=== PATIENT | male | born 1975 | race Caucasian/White ===

== ENCOUNTER 2022-07-17 09:00 | Emergency (ER) | payer MEDICAID, SELFPAY ==
[2022-07-17 09:13] VITALS: BP 141/100; PULSE 111; RESP 16; TEMP 36.7; O2SAT 98; BMI 28.4
--- NOTE | 2022-07-17 09:20 | ED.GENADULT ---
HPI - General Adult General Chief complaint: Extremity Pain/Injury, Lower Stated complaint: Pain in RT leg Time Seen by Provider: 07/17/22 09:02 History of Present Illness HPI narrative: This 46-year-old male comes in reporting pain radiating down the posterior aspect of his whole right leg. He fell about 4 - 5 weeks ago and is in a back brace. He has also a cast on his right forearm. He has been taking pain medications but states that this does not help him much. 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 He does not report any new injury since the fall that occurred more than a month ago. He has been to his primary physicians regarding these complaints and they state that it is a nerve pain. He does not report any swelling in his right leg. He does not have any chest pain or shortness of breath. Related Data Home Medications Medication Instructions Recorded Confirmed acetaminophen 325 mg capsule 325 mg PO Q6H PRN 07/17/22 07/17/22 cyclobenzaprine 5 mg tablet 5 mg PO Q8H 07/17/22 07/17/22 gabapentin 400 mg capsule 400 mg PO TID 07/17/22 07/17/22 hydroxyzine HCl 25 mg tablet 25 mg PO Q4H 07/17/22 07/17/22 melatonin 3 mg tablet 3 mg PO DAILY 07/17/22 07/17/22 oxycodone 5 mg capsule 5 mg PO Q8H 07/17/22 07/17/22 rivaroxaban 15 mg tablet (Xarelto) 15 mg PO BID 07/17/22 07/17/22 sennosides 8.6 mg capsule (senna) 8.6 mg PO DAILY 07/17/22 07/17/22 tamsulosin 0.4 mg capsule 0.4 mg PO DAILY 07/17/22 07/17/22 tramadol 50 mg tablet 50 mg PO QHS 07/17/22 07/17/22 Previous Rx's Medication Instructions Recorded hydrocodone 5 mg-acetaminophen 325 1 tab PO Q4-6H PRN pain #20 tabs 07/17/22 mg tablet Allergies Allergy/AdvReac Type Severity Reaction Status Date / Time No Known Drug Allergies Allergy Verified 07/17/22 09:23 Review of Systems Status of ROS: Reports: 10 or more systems reviewed and unremarkable except as noted in History and below Narrative: Constitutional: No fevers, no weight gain or loss. Eyes: No discharge. No vision changes. HENT: No congestion, no sore throat, no ear pain. Cardiovascular: No chest pain, no palpitations. Respiratory: No shortness of breath, no wheezes, no cough. Gastrointestinal: No abdominal pain, no vomiting, no diarrhea. Genitourinary: No dysuria, no hematuria. Musculoskeletal: Low back pain due to an injury from a fall and pain radiating down the right leg. Skin: No rashes, no pruritis. Neurological: No dizziness, weakness, sensory change, speech change. Endo/Heme/Allergies: No bruising or bleeding. No polydipsia. Pysch: no suicidality, no anxiety, no insomnia. All other systems reviewed and are negative. [facility] Social History Smoking Status: Never smoker Do you use any of these nicotine containing products: None Second hand tobacco smoke exposure: No How often do you have a drink containing alcohol: never How often do you have six or more drinks on one occasion: Never AUDIT-C Alcohol total score: 0 Non-prescribed substance use: denies use Exam Narrative: Exam Narrative: Constitutional: Well-developed, well-nourished, no acute distress. HEENT: Normocephalic, atraumatic. Neck: Normal range of motion. Nontender. Supple. Heart: Regular. No murmurs. Normal rate. Intact distal pulses. Lungs: Clear to auscultation. No chest discomfort. No wheezes, rhonchi, or rales. Abdomen: Normal bowel sounds. Nontender. No rebound tenderness. Genitalia: Deferred. Back: He is wearing a back brace. Extremities: He has a cast on his right forearm. Range of motion of his lower extremities is normal. Skin: Intact. No rash. Warm. No erythema or pallor. Neurologic: No altered sensation. No weakness. Alert and oriented. Psychiatric: No suicidality. No anxiety or depression. No insomnia. Nursing notes and vitals signs are reviewed. Const: Vital Signs, click to edit/add: Vital Signs - 24 hr 07/17/22 09:13 Temperature 98.1 F Pulse Rate [Left P ulse Oximeter] 111 H Respiratory Rate 16 Blood Pressure [Le ft Upper Arm] 141/100 H Pulse Oximetry 98 Oxygen Delivery Me thod Room Air Course Vital Signs Vital signs: Initial Vital Signs Temperature 98.1 F 07/17/22 09:13 Temperature Source Temporal Artery Scan 07/17/22 09:13 Pulse Rate 111 H 07/17/22 09:13 Pulse Rhythm 07/17/22 09:13 Pulse Strength 3+ Normal 07/17/22 09:13 Respiratory Rate 16 07/17/22 09:13 Blood Pressure 141/100 H 07/17/22 09:13 Blood Pressure Mean 113 07/17/22 09:13 Blood Pressure Position Sitting 07/17/22 09:13 Pulse Oximetry 98 07/17/22 09:13 Oxygen Delivery Method 07/17/22 09:13 Vital Signs Temperature 98.1 F 07/17/22 09:13 Pulse Rate 111 H 07/17/22 09:13 Respiratory Rate 16 07/17/22 09:13 Blood Pressure 141/100 H 07/17/22 09:13 Pulse Oximetry 98 07/17/22 09:13 Oxygen Delivery Method 07/17/22 09:13 Temperature 98.1 F 07/17/22 09:13 Pulse Rate 111 H 07/17/22 09:13 Respiratory Rate 16 07/17/22 09:13 Blood Pressure 141/100 H 07/17/22 09:13 Pulse Oximetry 98 07/17/22 09:13 Oxygen Delivery Method 07/17/22 09:13 Medical Decision Making MDM Narrative Medical decision making narrative: This patient comes in with ongoing symptoms from an injury that occurred from a fall which happened about 4 5 weeks ago. He has pain radiating down his right leg. He is not showing suspicious signs for a deep venous thrombus. Patient is interested however and having this ruled out. He does have a filter in his right inguinal region and is currently taking Xarelto. Ultrasound of the right lower extremity does show a nonocclusive clot in the upper calf. The PERC rule does apply here and rules him out for pulmonary embolism. There is no need to do imaging of his lungs in this regard. It seems that this patient's pain is yet nerve mediated as it does radiate down his whole leg. He did have hip fractures with surgery and has some issues with his lower spine. He does have a follow-up appointment with his primary physician in a few days. He is taking Flexeril and gabapentin. He states that this is not helping him sufficiently for pain. He also was prescribed 8 tablets of oxycodone and has just 1 left. I stated that his primary physician will need to manage ongoing pain medicines. The patient states that he does not want to become dependent on any kind of pain medicine. I did agree to prescribe some tablets of [place]. Discharge Plan Discharge Clinical Impression: Acute lumbar radiculopathy, Fracture of hip, Venous embolism and thrombosis of deep vessels of distal lower extremity Condition: Stable Additional Instructions: Take medication as needed and indicated. Follow up with MD as scheduled or return if worsening. Prescriptions: New hydrocodone-acetaminophen 5-325 mg tablet 1 tab PO Q4-6H PRN (Reason: pain) Qty: 20 0RF No Action Xarelto 15 mg tablet 15 mg PO BID Rx Instructions: must administer with a meal/food senna 8.6 mg capsule 8.6 mg PO DAILY tramadol 50 mg tablet 50 mg PO QHS oxycodone 5 mg capsule 5 mg PO Q8H gabapentin 400 mg capsule 400 mg PO TID melatonin 3 mg tablet 3 mg PO DAILY acetaminophen 325 mg capsule 325 mg PO Q6H PRN cyclobenzaprine 5 mg tablet 5 mg PO Q8H hydroxyzine HCl 25 mg tablet 25 mg PO Q4H tamsulosin 0.4 mg capsule 0.4 mg PO DAILY Follow Up/Referrals: Gideon Alston MD [Primary Care Provider] - Stand Alone Forms: [employer] Info Instructions
--- NOTE | 2022-07-17 09:31 | CRLHL7_ITS ---
For Patients: As a result of the Century Cures Act, medical imaging exams and procedure reports are released immediately into your electronic medical record. You may view this report before your referring provider. If you have questions, please contact your health care provider. INDICATION: Pain COMPARISON: None. TECHNIQUE: A compression venous ultrasound exam was performed of the right lower extremity using salazar-scale imaging, color Doppler and spectral Doppler analysis. FINDINGS: Sonographic imaging of the right lower extremity demonstrates normal compressibility and color Doppler venous blood flow within the common femoral vein and deep femoral vein, and the proximal greater saphenous vein. Within the thigh, the femoral vein is patent and compressible. At a lower level, the popliteal and posterior tibial veins also show normal compressibility and color Doppler venous blood flow. Nonocclusive partially compressible clot within the right gastrocnemius vein. Limited imaging of the contralateral groin demonstrates a normal spectral waveform and color Doppler venous blood flow within the left common femoral vein. IMPRESSION: Isolated muscular calf vein DVT, nonocclusive, involving the gastrocnemius vein. Remainder normal. If anticoagulation is not initiated, short term sonographic follow-up is suggested to exclude progression of DVT. Called to Dr. Barger 1021 07.17.22. Dictated by Roosevelt Cotton MD @ 07/17/2022 10:21:42 AM (Electronically Signed)
--- OUTSIDE RECORDS SUMMARY | 2022-07-17 10:11 | XMS_ITS | Clinical Summary ---
:1975 Author Organization [facility] Address [address] [place] [address] Phone Care Team Providers Name Role Phone Lore Au PT Unavailable Source Comments [employer] is fully rolled out on [employer]. Last update 03/09/09.[facility] [facility] Allergies No known active allergies Medications Be aware that medications may not be up to date as of this document. Always verify current medications with patient. Medication Sig Dispensed Refills Start End Status Date Date metFORMIN Take 1 tablet 0 Active (GLUCOPHAGE) 1000 (1,000 mg) by mg oral mouth twice daily tabletIndications: with meals. Type 2 Diabetes Indications: Type Mellitus 2 Diabetes glipiZIDE XL Take 1 tablet (10 0 Active (GLUCOTROL XL) 10 mg) by mouth mg oral extended daily. release Indications: Type tabletIndications: 2 Diabetes Type 2 Diabetes Mellitus acetaminophen 325 Take 3 tablets 120 tablet 0 06/26/20 Active mg oral tablet (975 mg) by mouth 22 3 times daily. hydrOXYzine Take 1-2 capsules 120 capsule 0 06/26/20 Active pamoate (VISTARIL) (25-50 mg) by 22 25 mg oral capsule mouth every 4 hours as needed (pain adjunct (give with opioid)).[place] 1-2 c??psulas (25-50 mg) por v??a oral cada 4 horas seg??n sea necesario (complemento para el dolor (administrar con opioide)). bisacodyl Unwrap and insert 5 suppository 0 06/26/20 Active (DULCOLAX) 10 mg 1 suppository (10 rectal suppository mg) by Rectal route daily as needed for Constipation.De senvuelva e inserte 1 supositorio (10 mg) por v??a rectal diariamente seg??n sea necesario para el estre??imiento. cyclobenzaprine Take 1 tablet (5 90 tablet 0 06/26/20 Active (FLEXERIL) 5 mg mg) by mouth 3 22 oral TABS times daily. [place] 1 tableta (5 mg) por la boca 3 veces al porsche. polyethylene Take 17 g by 510 g 0 06/26/20 Acti ve glycol 3350 mouth twice 22 (MIRALAX/GLUCOLAX) daily.Take 1 17 gm/scoop oral capful to 17 gm powder cuate mixed with full glass of water twice every day as directed.[place] 17 g por v??a oral dos veces al d??a. [place] 1 tap??n hasta la minerva de 17 g mezclado con un vaso lleno de agua dos veces al d??a seg??n las indicaciones. sennosides-docusat Take 1 tablet by 40 each 0 06/26/20 Active e sodium (STOOL mouth twice 22 SOFTENER/LAXATIVE) daily. [place] 1 8.6-50 mg oral tableta por la tablet boca 2 veces al porsche. GABApentin Take 1 capsule 120 capsule 0 06/26/20 Ac tive (NEURONTIN) 400 mg (400 mg) by mouth 22 oral capsule 3 times daily. [place] 1 capsula (400 mg) por la boca 3 veces al porsche. tamsulosin Take 1 capsule 10 capsule 0 06/27/20 Act raymond (FLOMAX) 0.4 mg (0.4 mg) by mouth 22 oral capsule daily after meal.Take 30 minutes after same meal each day. Do NOT crush or chew.[place] 1 c??psula (0,4 mg) por v??a oral todos los d??as despu??s de ethan comida. [place] 30 minutos despu??s de la misma comida todos los d??as. No triture ni mastique. melatonin 3 mg Take 1 tablet (3 20 tablet 0 06/26/20 Active oral tablet mg) by mouth at 22 bedtime as needed for Sleep. [place] 1 tableta (3 mg) por la boca a la hora de acostrase. sodium chloride 1 Take 2 tablets (2 60 tablet 0 06/26/20 Active gm oral TABS g) by mouth 4 22 times daily. TOME DOS TABLETAS ORALMENTE 4 VECES AL PORSCHE rivaroxaban Take 1 tablet (20 69 tablet 0 07/20/20 Active (XARELTO) 20 mg mg) by mouth 22 oral daily with tabletIndications: evening meal. 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 rivaroxaban Take 1 tablet (15 42 tablet 0 06/29/2007/20/ Active (XARELTO) 15 mg mg) by mouth 2021 oral twice daily with tabletIndications: meals for 21 Deep Vein days. Thrombosis Indications: Blood Clot in a Deep Vein. [place] 1 tableta (15 mg) por v??a oral dos veces al d??a con las comidas jennifer 21 d??as. 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 lidocaine 5 % Apply to affected 30 g 0 07/13/20 Active externally areas up to 3 22 ointment times daily. Aplicar en las ??reas afectadas hasta 3 veces al d??a. oxyCODONE Take 1 tablet (5 10 tablet 0 07/15/2007/20/ Act raymond (ROXICODONE) 5 mg mg) by mouth 2021 oral tablet every 8 hours as needed for breakthrough pain. TOME ETHAN TABLETA CADA 8 HORAS CLEMENTE SEA NECESARIO PARA EL DOLOR INTENSIVO oxyCODONE Take 1-2 tablets 50 tablet 0 06/26/06/27/ Dis continued (ROXICODONE) 5 mg (5-10 mg) by 2021 (Reorder) oral tablet mouth every 4 hours as needed for Pain. enoxaparin Inject 0.4 mL (40 4 each 0 06/26/2006/27/ D iscontinued (LOVENOX) 40 mg) 2021 (Reorde r) mg/0.4 mL subcutaneously Injection SOSY every 12 hours for 4 doses. Inyecte 0,4 ml (40 mg) por v??a subcut??binu cada 12 horas en 4 dosis. rivaroxaban Take 0.75 tablets 42 tablet 0 06/29/20 Discontinued (XARELTO) 20 mg (15 mg) by mouth 2021 (Reorder) oral twice daily with tabletIndications: meals. Deep Vein Indications: Thrombosis Blood Clot in a Deep Vein enoxaparin Inject 0.4 mL (40 3 each 0 06/27/2006/29/ E xpired (LOVENOX) 40 mg) 2021 mg/0.4 mL subcutaneously Injection SOSY every 12 hours for 3 doses, starting 06/27 at 8:00 PM. Inyecte 0,4 ml (40 mg) por v??a subcut??binu cada 12 horas en 4 dosis, a partir del 27/06 a las 20:00. oxyCODONE Take 1 tablet (5 30 tablet 0 06/27/20 Exp ired (ROXICODONE) 5 mg mg) by mouth 2021 oral tablet every 4 hours as needed for Pain. traMADol (ULTRAM) Take 1 tablet (50 7 tablet 0 07/08/2007/05 50 mg oral TABS mg) by mouth at 2021 bedtime as needed for Pain. * TOME ETHAN TABLETA ORALMENTE ANTES DE ACOSTARSE CLEMENTE SEA NECESARIO PARA EL DOLOR lidocaine 5 % Apply to skin 5 % 30 g 0 07/13/20 externally twice daily. 2021 (Reord er) ointment Active Problems Problem Noted Date Pelvic ring fracture, closed, initial encounter 2021 Fall, initial encounter 06/16/2022 Open wound of arm without complication 05/10/2007 Open wound of arm 04/13/2007 Resolved Problems Problem Noted Date Resolved Date Abrasion or friction burn of shoulder and upper arm without 04/13/2007 04/16/2007 infection Laceration, shoulder 04/13/2007 05/10/2007 Abrasion or friction burn of forearm without infection 04/0804/13/2007 Encounters Date Type Specialty Care Team Description 07/15/2022 Telephone ORTHOPEDICS Gorge Dimas, ER F/U (Orth o Dr RASHEL Brown) 07/14/2022 - Emergency EMERGENCY MEDICINE Danny Rios Post-o perative pain 07/15/2022 FMD Darius Johanna C, MD 07/14/2022 Travel 07/13/2022 Emergency EMERGENCY MEDICINE Mariano Taylor, Radicu lar pain of MD right lower extremity 07/13/2022 Travel 07/08/2022 Hospital Encounter RADIOLOGY Miri Matthew MD 1, [facility] 07/08/2022 Office Visit ORTHOPEDICS Roosevelt Brown Pelvic ring fracture, closed, subsequent encounter () (Primary Dx); MD Trav Fracture of right wrist 1, [facility] 07/08/2022 Hospital Encounter RADIOLOGY Patrice Hollins MD 1, [facility] 07/08/2022 Hospital Encounter RADIOLOGY Roosevelt Brown MD 1, [facility] 07/08/2022 Travel 07/07/2022 Telemedicine MEDICINE Martin Boyle, DVT (deep veno us thrombosis) () (Primary Dx); PharmD Pelvic ring fracture, closed, initial en counter () 1, [facility] 07/07/2022 Orders Only ORTHOPEDICS Nidhi Ochoa M, Pelvic ring RN fracture, close d, subsequent encounter () (Primary Dx) 06/29/2022 - Emergency EMERGENCY MEDICINE Sascha Mendez Pain 06/30/2022 S, DO 06/29/2022 Travel 06/24/2022 Anesthesia Event SURGERY Vish Aguirre MD Armstrong, Zoey, SOLOMON 06/24/2022 Surgery SURGERY Roosevelt Brown OPEN REDUCT DEANNA Ravi MD INTERNAL FIXATI ON RIGHT SI JOINT 06/24/2022 Documentation Only 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 Pest Control Service, Services 06/20/2022 Orders Only Unknown, Provider 06/20/2022 Orders Only Unknown, Provider 06/19/2022 Orders Only Unknown, Provider 06/19/2022 Orders Only Unknown, Provider 06/19/2022 Orders Only Unknown, Provider 06/18/2022 Anesthesia Event SURGERY Alex Leos MD Jensen, Kristan Sanchez MD 06/18/2022 Surgery SURGERY Roosevelt Brown PELVI S C, MD 06/18/2022 Orders Only Unknown, Provider 06/15/2022 - Hospital Encounter SURGERY Kingston Castañeda, Raymond, initial 06/27/2022 MD encounter Patrice Hollins MD 06/15/2022 Travel from Last 3 Months Social History Tobacco Use Types Packs/Day Years Used Date Smoking Tobacco: Never Smokeless Tobacco: Never Alcohol Use Standard Drinks/Week Comments Not Asked 0 (1 standard drink = 0.6 oz pure alcoho l) Sex Assigned at Date Recorded Not on file COVID-19 Exposure Response Date Recorded In the last 10 days, have you been in contact with No / Unsu re 07/14/2022 6:38 PM CDT someone who was confirmed or suspected to have Coronavirus/COVID-19? Last Filed Vital Signs Vital Sign Reading Time Taken Comments Blood Pressure 126/86 07/15/2022 5:04 AM CDT Pulse 100 07/15/2022 3:00 AM CDT Temperature 36.7 ??C (98.1 ??F) 07/14/2022 6:03 PM CDT Respiratory Rate 16 07/14/2022 6:03 PM CDT Oxygen Saturation 98% 07/15/2022 5:04 AM CDT Inhaled Oxygen Concentration - - Weight 92.4 kg (203 lb 12.8 oz) 06/16/2022 1:10 AM CDT Height 165.1 cm (5' 5) 06/16/2022 1:10 AM CDT Body Mass Index 33.91 06/16/2022 1:10 AM CDT Plan of Treatment Upcoming Encounters Date Type Specialty Care Team Description 07/22/2022 Appointment RADIOLOGY Roosevelt Brown MD [address] [place] [phone] Scheduled 1, [facility] [address] [place] [address] 07/22/2022 Office Visit ORTHOPEDICS Miri Matthew MD [address] [place] [address] Scheduled 1, [facility] [address] [place] [address] 07/22/2022 Office Visit Interventional Radiology Provider, Hesham haq Scheduled 1, [facility] [address] [place] [address] 07/25/2022 Appointment RADIOLOGY Patrice Hollins MD [address] [address] Scheduled 1, [facility] [address] [place] [address] 07/25/2022 Office Visit NEUROSURGERY Eusebio, Briana Reyes PA [facility] [address] [place] [phone] Scheduled 1, [facility] [address] [place] [address] 07/25/2022 Appointment PHYSICAL MEDICINE AND REHAB Lore Aguilar, PT Scheduled [address] [place] [phone] (Wo rk) 08/05/2022 Appointment ORTHOPEDICS 1, [facility] Scheduled [address] [place] [address] 08/05/2022 Appointment RADIOLOGY Roosevelt Brown MD [address] [place] [address] Scheduled 1, [facility] [address] [place] [address] 08/05/2022 Appointment RADIOLOGY Roosevelt Brown MD [address] [place] [address] Scheduled 1, [facility] [address] [place] [address] 08/05/2022 Office Visit ORTHOPEDICS Roosevelt Brown MD [address] [place] [address] Scheduled 1, [facility] [address] [place] [address] Health Maintenance Due Date Last Done Comments CT Colonography 1976 Colonoscopy 1976 Colorectal Cancer Screening 1976 Dental Oral Exam 1976 Dental Prophylaxis 1976 Dental X-Ray: Bitewings 1976 FIT/Cologuard 1976 Sigmoidoscopy 1976 iFOB/FIT 1976 Periodontal Maintenance 1990 HIV Screening 1991 PREVENTATIVE VISIT 1994 HEALTH MAINTENANCE PROTOCOL 1995 COVID-19 Vaccine (4 - Booster 01/22/2022 11/27/2021, for Moderna series) 03/24/2021, 02/24/2021 INFLUENZA VACCINE 06/05/2022 Lipid Screening 06/26/2027 06/26/2022 TD/TDAP ADULTS 04/29/2032 04/29/2022 HIB Aged Out No longer eligib le based on patient's age to complete this to pic HPV Aged Out No longer eligib le based on patient's age to complete this to pic Medical Devices Implanted Type Area [employer] Device Shelf Model / Identifier Expiration Serial / Lot Date Gelfoam(Surgifoam) Sz 100 3x5 (Large) 1974 Hemostatic Right: BECKY PIKE & 11/14/2025 [id number] / Implanted: Qty: 1 on 06/24/2022 by Roosevelt Brown MD at [facility] Agent Pelvis MORENA / [id number] 3-Hole (1179-007-03) Plate Right: BERNADINE [employer] [id number] / Implanted: Qty: 1 on 06/24/2022 by Roosevelt Brown MD at [facility] Pelvis / 170mm, 75mm [id number] Screw/Trimble BERNADINE BIOMET [id number] / Implanted: Qty: 1 on 06/18/2022 by Roosevelt Brown MD at [facility] / 95mm ([id number]) Screw/Trimble Right: BERNADINE BIOMET [id number] / Implanted: Qty: 1 on 06/24/2022 by Roosevelt Brown MD at [facility] Pelvis / Washer 13mm Large [id number] Lg Washer Right: BERNADINE BIOMET [id number] / Implanted: Qty: 1 on 06/24/2022 by Roosevelt Brown MD at [facility] Pelvis / Procedures Procedure Name Priority Date/Time Associated Comments Diagnosis XR SPINE Routine 07/14/2022 7:30 Results for THORACOLUMBAR 2 VIEW PM CDT this pr ocedure are in the results section. XR PELVIS AP* Routine 07/14/2022 7:29 Results for PM CDT this procedure are in the results section. ULT VENOUS LOWER EXT TERRENCE 07/08/2022 11:53 Pelvic ring Res ults for BILAT AM CDT fracture, closed, this proce dure subsequent are in the encounter () results section. XR WRIST RIGHT 3+ Routine 07/08/2022 8:50 Closed fracture of R esults for PA/OB/LAT/JENS* AM CDT distal end of this procedu re right radius, are in the unspecified results fracture section. morphology, initial encounter XR PELVIS 3 V AP Routine 07/08/2022 8:50 Pelvic ring Results for &INLET/OUTLET AM CDT fracture, closed, this proc edure subsequent are in the encounter () results section. POC GLUCOSE Routine 06/27/2022 4:16 Results for PM CDT this procedure are in the results section. POC GLUCOSE Routine 06/27/2022 10:56 Results for AM CDT this procedure are in the results section. POC GLUCOSE Routine 06/27/2022 6:40 Results for AM CDT this procedure are in the results section. PANEL BASIC METABOLIC Routine 06/27/2022 4:57 Res ults for (BMP) AM CDT this procedure are in the results section. TC LAB BLOOD DRAW BY Routine 06/27/2022 4:57 Resu lts for VENIPUNCTURE AM CDT this procedure are in the results section. POC GLUCOSE Routine 06/26/2022 8:50 Results for PM CDT this procedure are in the results section. POC GLUCOSE Routine 06/26/2022 4:01 Results for PM CDT this procedure are in the results section. POC GLUCOSE Routine 06/26/2022 11:17 Results for AM CDT this procedure are in the results section. POC GLUCOSE Routine 06/26/2022 7:01 Results for AM CDT this procedure are in the results section. PANEL LIPID Routine 06/26/2022 6:41 Results for AM CDT this procedure are in the results section. PANEL RENAL Routine 06/26/2022 6:41 Results for AM CDT this procedure are in the results section. TC LAB BLOOD DRAW BY Routine 06/26/2022 6:41 Resu lts for VENIPUNCTURE AM CDT this procedure are in the results section. POC GLUCOSE Routine 06/25/2022 8:45 Results for PM CDT this procedure are in the results section. PC OSMOLALITY; URINE Routine 06/25/2022 5:08 Resu lts for PM CDT this procedure are in the results section. PC SODIUM; URINE Routine 06/25/2022 5:08 Results for PM CDT this procedure are in the results section. POC GLUCOSE Routine 06/25/2022 4:09 Results for PM CDT this procedure are in the results section. CT PELVIS NO IV CON+ Routine 06/25/2022 4:01 Resu lts for 3D RECON PM CDT this procedure are in the results section. POC GLUCOSE Routine 06/25/2022 11:26 Results for AM CDT this procedure are in the results section. POC GLUCOSE Routine 06/25/2022 5:59 Results for AM CDT this procedure are in the results section. OSMOLALITY SERUM Routine 06/25/2022 5:51 Results for AM CDT this procedure are in the results section. PANEL RENAL Routine 06/25/2022 5:51 Results for AM CDT this procedure are in the results section. TC LAB BLOOD DRAW BY Routine 06/25/2022 5:51 Resu lts for VENIPUNCTURE AM CDT this procedure are in the results section. POC GLUCOSE Routine 06/24/2022 9:13 Results for PM CDT this procedure are in the results section. POC GLUCOSE Routine 06/24/2022 6:41 Results for PM CDT this procedure are in the results section. POC GLUCOSE Routine 06/24/2022 4:39 Results for PM CDT this procedure are in the results section. XR PELVIS 3 V AP Routine 06/24/2022 3:25 Results for &INLET/OUTLET PM CDT this procedure are in the results section. XR C ARM OVER 3 HRS Routine 06/24/2022 3:25 PM CDT INTUBATION Routine 06/24/2022 2:24 Results for PM CDT this procedure are in the results section. XR PELVIS AP* Timed 06/24/2022 1:51 Results for PM CDT this procedure are in the results section. POC GLUCOSE Routine 06/24/2022 1:10 Results for PM CDT this procedure are in the results section. ORIF, PELVIS Urgent (< 48 06/24/2022 12:24 Pelvic ring hrs) PM CDT fracture, closed, initial encounter () POC GLUCOSE Routine 06/24/2022 10:53 Results for AM CDT this procedure are in the results section. RED BLOOD CELLS Routine 06/24/2022 8:39 Results f or LEUKOCYTE REDUCED AM CDT this proce dure ADULT (BLOOD ADMIN) are in t he results section. PC HEPARIN ASSAY Timed 06/24/2022 7:04 Results for AM CDT this procedure are in the results section. POC GLUCOSE Routine 06/24/2022 6:42 Results for AM CDT this procedure are in the results section. MAGNESIUM Routine 06/24/2022 5:43 Results for AM CDT this procedure are in the results section. PANEL RENAL Routine 06/24/2022 5:43 Results for AM CDT this procedure are in the results section. PC LAB CBC/PLT Routine 06/24/2022 5:43 Results fo r AM CDT this procedure are in the results section. TC LAB BLOOD DRAW BY Timed 06/23/2022 10:42 Res ults for VENIPUNCTURE PM CDT this procedure are in the results section. POC GLUCOSE Routine 06/23/2022 8:46 Results for PM CDT this procedure are in the results section. POC GLUCOSE Routine 06/23/2022 3:57 Results for PM CDT this procedure are in the results section. PC HEPARIN ASSAY STAT 06/23/2022 3:40 Results for PM CDT this procedure are in the results section. POC GLUCOSE Routine 06/23/2022 11:08 Results for AM CDT this procedure are in the results section. PC HEPARIN ASSAY Timed 06/23/2022 6:25 Results for AM CDT this procedure are in the results section. POC GLUCOSE Routine 06/23/2022 6:10 Results for AM CDT this procedure are in the results section. POC GLUCOSE Routine 06/22/2022 9:19 Results for PM CDT this procedure are in the results section. POC GLUCOSE Routine 06/22/2022 4:03 Results for PM CDT this procedure are in the results section. POC GLUCOSE Routine 06/22/2022 11:07 Results for AM CDT this procedure are in the results section. PROTHROMBIN (PT) & Routine 06/22/2022 10:53 Resul ts for INR AM CDT this procedure are in the results section. PC ANTIBODY Routine 06/22/2022 10:53 Results for SCREEN,RBC,EACH SERUM AM CDT this p rocedure TECHNIQUE are in the results section. PC LAB RH TYPE GEL Routine 06/22/2022 10:53 Resul ts for AM CDT this procedure are in the results section. COVID-19 SURVEILLANCE Routine 06/22/2022 7:10 Res ults for AM CDT this procedure are in the results section. POC GLUCOSE Routine 06/22/2022 6:11 Results for AM CDT this procedure are in the results section. PC HEPARIN ASSAY Timed 06/22/2022 5:25 Results for AM CDT this procedure are in the results section. PC LAB CBC/PLT Routine 06/22/2022 5:25 Results fo r AM CDT this procedure are in the results section. ANTI XA ASSAY LMW Timed 06/22/2022 5:25 Results for HEPARIN AM CDT this procedure are in the results section. POC GLUCOSE Routine 06/21/2022 9:06 Results for PM CDT this procedure are in the results section. POC GLUCOSE Routine 06/21/2022 4:13 Results for PM CDT this procedure are in the results section. POC GLUCOSE Routine 06/21/2022 11:53 Results for AM CDT this procedure are in the results section. PC HEPARIN ASSAY Timed 06/21/2022 6:19 Results for AM CDT this procedure are in the results section. POC GLUCOSE Routine 06/21/2022 6:17 Results for AM CDT this procedure are in the results section. POC GLUCOSE Routine 06/20/2022 8:51 Results for PM CDT this procedure are in the results section. POC GLUCOSE Routine 06/20/2022 4:10 Results for PM CDT this procedure are in the results section. XR ANKLE RIGHT 3 V Routine 06/20/2022 1:41 Result s for AP/OBL/LAT* PM CDT this procedure are in the results section. PC HEPARIN ASSAY Timed 06/20/2022 12:14 Results for PM CDT this procedure are in the results section. POC GLUCOSE Routine 06/20/2022 12:06 Results for PM CDT this procedure are in the results section. TELEMETRY STRIPS 06/20/2022 9:37 Results for AM CDT this procedure are in the results section. POC GLUCOSE Routine 06/20/2022 6:19 Results for AM CDT this procedure are in the results section. PC HEPARIN ASSAY Timed 06/20/2022 5:57 Results for AM CDT this procedure are in the results section. PANEL BASIC METABOLIC Routine 06/20/2022 5:57 Res ults for (BMP) AM CDT this procedure are in the results section. PC LAB CBC/PLT Routine 06/20/2022 5:57 Results fo r AM CDT this procedure are in the results section. TELEMETRY STRIPS 06/20/2022 2:53 Results for AM CDT this procedure are in the results section. EXTRA TUBE - SST Routine 06/20/2022 1:05 Results for AM CDT this procedure are in the results section. TC LAB BLOOD DRAW BY Timed 06/20/2022 12:19 Res ults for VENIPUNCTURE AM CDT this procedure are in the results section. POC GLUCOSE Routine 06/19/2022 8:57 Results for PM CDT this procedure are in the results section. XR FOOT RIGHT 3 V Routine 06/19/2022 7:45 Results for AP/OBL/LAT* PM CDT this procedure are in the results section. XR SPINE Routine 06/19/2022 5:58 Results for THORACOLUMBAR UPRIGHT PM CDT this p rocedure are in the results section. XR PELVIS 3 V AP Routine 06/19/2022 5:58 Results for &INLET/OUTLET PM CDT this procedure are in the results section. TC LAB BLOOD DRAW BY Timed 06/19/2022 5:27 Resu lts for VENIPUNCTURE PM CDT this procedure are in the results section. TELEMETRY STRIPS 06/19/2022 4:44 Results for PM CDT this procedure are in the results section. POC GLUCOSE Routine 06/19/2022 4:01 Results for PM CDT this procedure are in the results section. PC HEPARIN ASSAY Timed 06/19/2022 12:51 Results for PM CDT this procedure are in the results section. CT PELVIS 3D Routine 06/19/2022 11:49 Results for RECONSTRUCTION AM CDT this procedur e are in the results section. POC GLUCOSE Routine 06/19/2022 11:19 Results for AM CDT this procedure are in the results section. CT UROGRAM Routine 06/19/2022 11:05 Results for AM CDT this procedure are in the results section. TELEMETRY STRIPS 06/19/2022 9:02 Results for AM CDT this procedure are in the results section. POC GLUCOSE Routine 06/19/2022 6:03 Results for AM CDT this procedure are in the results section. PANEL BASIC METABOLIC Routine 06/19/2022 5:15 Res ults for (BMP) AM CDT this procedure are in the results section. PC LAB CBC/PLT Routine 06/19/2022 5:15 Results fo r AM CDT this procedure are in the results section. PC HEPARIN ASSAY Timed 06/19/2022 5:15 Results for AM CDT this procedure are in the results section. TELEMETRY STRIPS 06/19/2022 1:30 Results for AM CDT this procedure are in the results section. PC HEPARIN ASSAY STAT 06/18/2022 11:59 Results for PM CDT this procedure are in the results section. TELEMETRY STRIPS 06/18/2022 10:17 Results for PM CDT this procedure are in the results section. POC GLUCOSE Routine 06/18/2022 9:13 Results for PM CDT this procedure are in the results section. POC GLUCOSE Routine 06/18/2022 7:03 Results for PM CDT this procedure are in the results section. XR PELVIS 3 V AP Routine 06/18/2022 6:15 Results for &INLET/OUTLET PM CDT this procedure are in the results section. XR C ARM OVER 3 HRS Routine 06/18/2022 6:15 PM CDT XR PELVIS AP* Routine 06/18/2022 5:50 Results for PM CDT this procedure are in the results section. XR O ARM 0-1 HR Routine 06/18/2022 5:50 PM CDT INTUBATION Routine 06/18/2022 5:00 Results for PM CDT this procedure are in the results section. POC GLUCOSE Routine 06/18/2022 4:15 Results for PM CDT this procedure are in the results section. ORIF, PELVIS Semi-Urgent (< 06/18/2022 4:01 Pelvic ring 2 wks) PM CDT fracture, closed, initial encounter () IMMEDIATE POST Routine 06/18/2022 12:23 Results f or PROCEDURE SEDATION PM CDT this proc edure are in the results section. IR IVC FILTER Routine 06/18/2022 12:09 Results fo r PLACEMENT PM CDT this procedure are in the results section. POC GLUCOSE Routine 06/18/2022 11:21 Results for AM CDT this procedure are in the results section. PC HEPARIN ASSAY Timed 06/18/2022 10:27 Results for AM CDT this procedure are in the results section. XR URETHROGRAM Routine 06/18/2022 9:14 Results fo r RETROGRADE AM CDT this procedure are in the results section. POC GLUCOSE Routine 06/18/2022 6:26 Results for AM CDT this procedure are in the results section. TC LAB BLOOD DRAW BY Timed 06/18/2022 4:50 Resu lts for VENIPUNCTURE AM CDT this procedure are in the results section. PANEL BASIC METABOLIC Routine 06/18/2022 4:50 Res ults for (BMP) AM CDT this procedure are in the results section. PC LAB CBC/PLT Routine 06/18/2022 4:50 Results fo r AM CDT this procedure are in the results section. PC HEPARIN ASSAY Timed 06/17/2022 10:34 Results for PM CDT this procedure are in the results section. POC GLUCOSE Routine 06/17/2022 8:43 Results for PM CDT this procedure are in the results section. POC GLUCOSE Routine 06/17/2022 3:57 Results for PM CDT this procedure are in the results section. ULT VENOUS LOWER EXT Routine 06/17/2022 3:35 Resu lts for BILAT PM CDT this procedure are in the results section. POC GLUCOSE Routine 06/17/2022 11:54 Results for AM CDT this procedure are in the results section. PC ANTIBODY Routine 06/17/2022 11:46 Results for SCREEN,RBC,EACH SERUM AM CDT this p rocedure TECHNIQUE are in the results section. PC LAB RH TYPE GEL Routine 06/17/2022 11:46 Resul ts for AM CDT this procedure are in the results section. POC GLUCOSE Routine 06/17/2022 6:53 Results for AM CDT this procedure are in the results section. POC GLUCOSE Routine 06/17/2022 6:51 Results for AM CDT this procedure are in the results section. PANEL BASIC METABOLIC Routine 06/17/2022 5:07 Res ults for (BMP) AM CDT this procedure are in the results section. TC LAB BLOOD DRAW BY Routine 06/17/2022 5:07 Resu lts for VENIPUNCTURE AM CDT this procedure are in the results section. POC GLUCOSE Routine 06/16/2022 9:14 Results for PM CDT this procedure are in the results section. XR WRIST RIGHT 3+ Routine 06/16/2022 6:58 Results for PA/OB/LAT/JENS* PM CDT this procedur e are in the results section. POC GLUCOSE Routine 06/16/2022 6:05 Results for PM CDT this procedure are in the results section. POC GLUCOSE Routine 06/16/2022 12:47 Results for PM CDT this procedure are in the results section. XR PELVIS 5V Routine 06/16/2022 12:19 Results for AP/IN/OUTLET/JUDET* PM CDT this pro cedure are in the results section. XR CYSTOGRAM Routine 06/16/2022 11:56 Results for AM CDT this procedure are in the results section. PC LACTATE (LACTIC Timed 06/16/2022 2:20 Result s for ACID) AM CDT this procedure are in the results section. PC LAB COMPLETE UA STAT 06/16/2022 12:20 Resul ts for AM CDT this procedure are in the results section. XR PELVIS AP* STAT 06/15/2022 11:21 Results fo r PM CDT this procedure are in the results section. XR KNEE RIGHT 2 V Routine 06/15/2022 11:20 Result s for AP/LAT PM CDT this procedure are in the results section. XR TIB FIB RIGHT 2 V Routine 06/15/2022 10:05 Res ults for AP + LAT* PM CDT this procedure are in the results section. XR TIB FIB LEFT 2 V Routine 06/15/2022 10:05 Resu lts for AP + LAT* PM CDT this procedure are in the results section. XR FEMUR LEFT AP + Routine 06/15/2022 10:05 Resul ts for LAT* PM CDT this procedure are in the results section. XR FEMUR RIGHT AP + Routine 06/15/2022 10:05 Resu lts for LAT* PM CDT this procedure are in the results section. CT SPINE LUMBAR NO IV STAT 06/15/2022 7:54 Res ults for CON PM CDT this procedure are in the results section. CT SPINE THORACIC NO STAT 06/15/2022 7:54 Resu lts for IV CON PM CDT this procedure are in the results section. CT CHEST/ABD/PELVIS STAT 06/15/2022 7:54 Resul ts for W/IV CONT PM CDT this procedure are in the results section. CT SPINE CERVICAL NO STAT 06/15/2022 7:52 Resu lts for IV CON PM CDT this procedure are in the results section. CT HEAD NO IV STAT 06/15/2022 7:52 Results for CONTRAST PM CDT this procedure are in the results section. XR PELVIS AP* STAT 06/15/2022 7:34 Results for PM CDT this procedure are in the results section. XR CHEST 1 VIEW AP OR STAT 06/15/2022 7:33 Res ults for PA* PM CDT this procedure are in the results section. EXTRA TUBE - CASTA[place]EDA Routine 06/15/2022 7:20 Results for PM CDT this procedure are in the results section. TC LAB BLOOD DRAW BY Routine 06/15/2022 7:20 Resu lts for VENIPUNCTURE PM CDT this procedure are in the results section. PC TROPONIN STAT 06/15/2022 7:20 Results for QUANTITATIVE PM CDT this procedure are in the results section. PC LAB PTT STAT 06/15/2022 7:20 Results for PM CDT this procedure are in the results section. PROTHROMBIN (PT) & STAT 06/15/2022 7:20 Result s for INR PM CDT this procedure are in the results section. COVID-19 SURVEILLANCE STAT 06/15/2022 7:20 Res ults for PM CDT this procedure are in the results section. PRECAUTIONARY TUBE STAT 06/15/2022 7:20 Result s for PM CDT this procedure are in the results section. PC LACTATE (LACTIC STAT 06/15/2022 7:20 Result s for ACID) PM CDT this procedure are in the results section. FIBRINOGEN STAT 06/15/2022 7:20 Results for PM CDT this procedure are in the results section. TC LAB ER STAT TOTAL STAT 06/15/2022 7:20 Resu lts for HGB PM CDT this procedure are in the results section. PC ELECTROLYTES PANEL STAT 06/15/2022 7:20 Res ults for PM CDT this procedure are in the results section. PC LAB CBC W/DIFF & STAT 06/15/2022 7:20 Resul ts for PLT PM CDT this procedure are in the results section. PC GASES,BLOOD,ANY STAT 06/15/2022 7:20 Result s for COMB OF PM CDT this procedure PH,PCD2,PO2,CO2,HCO2 are in the results section. ED US CRITICAL CARE STAT 06/15/2022 7:16 Resul ts for PM CDT this procedure are in the results section. from Last 3 Months Results XR SPINE THORACOLUMBAR 2 VIEW (07/14/2022 7:30 PM CDT) Anatomical Region Laterality Modality Thoracic Spine Computed Radiography Specimen (Source) Anatomical Collection Method Collection Time Re ceived Time Location / / Volume Laterality 07/14/2022 8:32 PM CDT Impressions 07/14/2022 8:36 PM CDT Impression: Stable alignment. Stable height of the known compression fracture of T12 with evidence of increase sclerosis/healing. Stable mild compression deformity of T11. Limited visualization of the f racture of the right transverse process of L1. Reading Radiologist: Dora Mathew Narrative 07/14/2022 8:36 PM CDT Thoracolumbar spine 2 views Indication T12 and L1 fractures Comparison: 06/19/2022 Findings: Vertebral body alignment throu ghout the mid to lower thoracic spine and lumbar spine is stable. Stable compression fracture deformity of T12 . Increase sclerosis at T12 suggestive of healing. Stable mild compression deformity of T12 . Limited visualization of the known right transverse process fracture of L1. Large lateral osteophyte again noted at the level of L1-2. Postsurgical changes of ORIF of the bilateral sacroiliac joints. Procedure Note Dora Mathew MD - 07/14/2022Formattin g of this note might be different from the original. Thoracolumbar spine 2 views Indication T12 and L1 fractures Comparison: 06/19/2022 Findings: Vertebral body alignment throu ghout the mid to lower thoracic spine and lumbar spine is stable. Stable compression fracture deformity of T12 . Increase sclerosis at T12 suggestive of healing. Stable mild compression deformity of T12. Limited vi sualization of the known right transverse process fracture of L1. Large lateral osteophyte again noted at the level of L1-2. Postsurgical changes of ORIF of the bilateral sacroiliac joints. IMPRESSION Impression: Stable alignment. Stable hei ght of the known compression fracture of T12 with evidence of increase sclerosis/healing. Stable mild compression deformity of T11. Limited visualization of the fracture of the right transverse process of L1. Reading Radiologist: Dora Mathew Areli Mccoy MD X-RAY XR PELVIS AP* (07/14/2022 7:29 PM CDT)Only the most recent of5 resultswithin the time period is included. Anatomical Region Laterality Modality Pelvis Computed Radiography Specimen (Source) Anatomical Collection Method Collection Time Re ceived Time Location / / Volume Laterality 07/14/2022 7:45 PM CDT Impressions 07/14/2022 7:46 PM CDT Impression: No acute osseous abnormality. Reading Radiologist: Ronal Rouse Narrative 07/14/2022 7:46 PM CDT Indication: ongoing pain ?? Comparison: 07/08/2022 Findings: Single AP frontal view the pel vis. Right-sided sacroiliac plate and screw fixation in stable alignment. Chronic right superior pubic ramus, right acetabular, and right brachial tuberosity frac ture deformities. Pelvic bony alignment is unchanged. No new abnormality identified. Procedure Note Ronal Rouse MD - 07/14/2022Formatt ing of this note might be different from the original. Indication: ongoing pain Comparison: 07/08/2022 Findings: Single AP frontal view the pel vis. Right-sided sacroiliac plate and screw fixation in stable alignment. Chronic right superior pubic ramus, right acetabular, and right brachial tuberosity fracture deformities. Pelvic bony alignment is un changed. No new abnormality identified. IMPRESSION Impression: No acute osseous abnormality. Reading Radiologist: Ronal Rouse Areli Mccoy MD X-RAY ULT VENOUS LOWER EXTREMITY BILAT (07/08/2022 11:53 AM CDT)Only the most recent of2 resultswithin the time period is included. Anatomical Region Laterality Modality Upper Leg Ultrasound Specimen (Source) Anatomical Collection Method Collection Time Re ceived Time Location / / Volume Laterality 07/08/2022 11:47 AM CDT Impressions 07/08/2022 12:14 PM CDT Impression: No evidence of deep venous thrombosis in either lower extremity. I have personally reviewed the image(s) and initial interpretation, and I agree with the findings as documented by the resident/fellow. Reading Radiologist: Sarthak Us Reading Resident: Donavon Chang 07/08/2022 12:14 PM CDT Indication: nonambulatory due to pelvic fracture, has R calf pain ?? Comparison: Lower extremity ultrasound . Technique: ?? 1. ??Castañeda-scale imaging of the common fe moral, femoral, profunda femoral origin, great saphenous and ??popliteal veins in both lower extremities including compressibility 2. ??Color Doppler of the above mentione d deep veins 3. ??Doppler waveform analysis of each o f these veins Findings: The right common femoral vein, femoral v ein, popliteal vein, profunda femoral origin, great saphenous vein, anterior tibial, posterior tibial, peroneal veins are fully compressible. They demonstrate nor mal Doppler flow, normal augmentation an d normal color-flow. No thrombus is identified within them on grayscale imaging. The left common femoral vein, ??femoral ??vein, popliteal vein and great saphenous vein, profunda femoral origin are fully compressible. They demonstrate normal Doppler flow, normal augmentation and nor mal color-flow. No thrombus is identifie d within them on grayscale imaging. Procedure Note Sarthak Us MD - 07/08/2022Formatt ing of this note might be different from the original. Indication: nonambulatory due to pelvic fracture, has R calf pain Comparison: Lower extremity ultrasound . Technique: 1. Castañeda-scale imaging of the common femo ral, femoral, profunda femoral origin, great saphenous and popliteal veins in both lower extremities including compressibility 2. Color Doppler of the above mentioned deep veins 3. Doppler waveform analysis of each of these veins Findings: The right common femoral vein, femoral v ein, popliteal vein, profunda femoral origin, great saphenous vein, anterior tibial, posterior tibial, peroneal veins are fully compressible. They demonstrate normal Doppler flow, normal augmentation and normal col or-flow. No thrombus is identified within them on grayscale imaging. The left common femoral vein, femoral ve in, popliteal vein and great saphenous vein, profunda femoral origin are fully compressible. They demonstrate normal Doppler flow, normal augmentation and normal color-flow. No thrombus is identified wi thin them on grayscale imaging. IMPRESSION Impression: No evidence of deep venous thrombosis in either lower extremity. I have personally reviewed the image(s) and initial interpretation, and I agree with the findings as documented by the resident/fellow. Reading Radiologist: Sarthak Us Reading Resident: Donavon Chang Miri Matthew MD ULT XR WRIST RIGHT 3+ PA/OB/LAT/JENS* (07/08/2022 8:50 AM CDT)Only the most recent of 2 resultswithin the time period is included. Anatomical Region Laterality Modality Hand Digital Radiography Specimen (Source) Anatomical Collection Method Collection Time Re ceived Time Location / / Volume Laterality 07/08/2022 9:00 AM CDT Impressions 07/08/2022 9:02 AM CDT Impression: Possible slight increased displacement o f the intra-articular distal radius fracture. No new fracture. Reading Radiologist: Ronal Rouse Narrative 07/08/2022 9:02 AM CDT Indication: R drf - xrays in cast ?? Comparison: 06/16/2022 Findings: 4 views of the right wrist. Ov erlying casting material. Longitudinal intra-articular fracture of the medial aspect of the distal radius appears slightly more displaced on the comparison imaging. No new fractures detected. Procedure Note Ronal Rouse MD - 07/08/2022Formatt ing of this note might be different from the original. Indication: R drf - xrays in cast Comparison: 06/16/2022 Findings: 4 views of the right wrist. Ov erlying casting material. Longitudinal intra-articular fracture of the medial aspect of the distal radius appears slightly more displaced on the comparison imaging. No new fractures detected. IMPRESSION Impression: Possible slight increased displacement o f the intra-articular distal radius fracture. No new fracture. Reading Radiologist: Ronal Rouse Ellen Mays PA-C X-RAY XR PELVIS 3 V AP + INLET/OUTLET (07/08/2022 8:50 AM CDT)Only the most recent of4 resultswithin the time period is included. Anatomical Region Laterality Modality Pelvis Digital Radiography Specimen (Source) Anatomical Collection Method Collection Time Re ceived Time Location / / Volume Laterality 07/08/2022 9:03 AM CDT Impressions 07/08/2022 9:04 AM CDT Impression: Stable alignment. Reading Radiologist: Ronal Rouse Narrative 07/08/2022 9:04 AM CDT Indication: f/u fx ?? Comparison: 06/25/2022 Findings: AP, inlet, outlet views the pe lvis. Postsurgical changes of right transsacral iliac screw fixation. Alignment is overall stable. There is a mildly displaced fracture at the base of the right superior pubic ramus. No new fracture detected. Procedure Note Ronal Rouse MD - 07/08/2022Formatt ing of this note might be different from the original. Indication: f/u fx Comparison: 06/25/2022 Findings: AP, inlet, outlet views the pe lvis. Postsurgical changes of right transsacral iliac screw fixation. Alignment is overall stable. There is a mildly displaced fracture at the base of the right superior pubic ramus. No new fracture detected. IMPRESSION Impression: Stable alignment. Reading Radiologist: Ronal Rouse Roosevelt Brown MD X-RAY POC GLUCOSE (06/27/2022 4:16 PM CDT)Only the most recent of50 resultswithin the time period is included. athologist Signature POC Glucose 93 70 - 100 [facility] mg/dL [facility] - POINT OF CARE Specimen (Source) Anatomical Collection Method Collection Time Re ceived Time Location / / Volume Laterality Blood 06/27/2022 4:16 PM CDT Kingston Castañeda MD LABORATORY Performing Organization Address City/State/ZIP Code Phon e Number [facility] [place] - POINT OF CARE [address] [place] [address] (ABNORMAL) PANEL BASIC METABOLIC (BMP) (06/27/2022 4:57 AM CDT)Only the most recent of5 resultswithin the time period is included. athologist Signature Sodium 134 (L) 135 - 148 [facility] mEq/L Potassium 4.2 3.5 - 5.3 [facility] mEq/L Chloride 98 92 - 108 [facility] mEq/L CO2 25 22 - 30 [facility] mEq/L AnGap 11 8 - 16 [facility] mEq/L Glucose 156 (H) 70 - 100 [facility] mg/dL BUN 15 6 - 20 [facility] mg/dL Creatinine 0.59 (L) 0.70 - 1.25 [facility] mg/dL Calcium 9.2 8.6 - 10.0 [facility] mg/dL eGFR, High >120 >=60 [facility] ml/min/1.73 m2 Comment: Calculated using CKD-EPI equati on eGFR, Low >120 >=60 ml/min/1.73m2 [facility] Comment: Calculated using CKD-EPI equati on Specimen Anatomical Collection Method Collection Time Receive d Time (Source) Location / / Volume Laterality Blood 06/27/2022 4:57 AM 2 5:23 CDT AM CDT Patrice Hollins MD LABORATORY Performing Organization Address City/State/ZIP Code Phon e Number [facility] [place] [address] (ABNORMAL) CBC WITH PLATELET (06/27/2022 4:57 AM CDT)Only the most recent of9 resultswithin the time period is included. P athologist Signature WBC 13.15 (H) 4.00 - [facility] 10.00 k/cmm RBC 3.11 (L) 4.60 - 6.00 [facility] m/cmm Hgb 8.7 (L) 13.1 - 17.5 [facility] g/dL Hematocrit 26.4 (L) 40.0 - 51.0 [facility] % MCV 84.9 80.0 - [facility] 100.0 fL MCH 28.0 25.0 - 32.0 [facility] pg MCHC 33.0 31.0 - 36.0 [facility] g/dL RDW 13.5 11.5 - 14.5 [facility] % Plt 497 (H) 150 - 400 [facility] k/cmm MPV 9.5 6.5 - 12.5 [facility] fL Specimen Anatomical Collection Method Collection Time Receive d Time (Source) Location / / Volume Laterality Blood 06/27/2022 4:57 AM 2 5:23 CDT AM CDT Patrice Hollins MD LABORATORY Performing Organization Address [facility]/ZIP [facility] Phon e Number [facility] [place] [address] (ABNORMAL) PANEL RENAL (06/26/2022 6:41 AM CDT)Only the most recent of3 results within the time period is included. athologist Signature Sodium 131 (L) 135 - 148 [facility] mEq/L Potassium 4.1 3.5 - 5.3 [facility] mEq/L Chloride 93 92 - 108 [facility] mEq/L CO2 27 22 - 30 [facility] mEq/L AnGap 11 8 - 16 [facility] mEq/L Glucose 151 (H) 70 - 100 [facility] mg/dL BUN 15 6 - 20 [facility] mg/dL Creatinine 0.69 (L) 0.70 - 1.25 [facility] mg/dL Calcium 8.9 8.6 - 10.0 [facility] mg/dL Albumin 3.5 (L) 3.8 - 5.1 [facility] g/dL Phosphorus 4.3 2.5 - 4.5 [facility] mg/dL eGFR, High >120 >=60 [facility] ml/min/1.73 m2 Comment: Calculated using CKD-EPI equati on eGFR, Low 115 >=60 ml/min/1.73m2 [facility] Comment: Calculated using CKD-EPI equati on Specimen Anatomical Collection Method Collection Time Receive d Time (Source) Location / / Volume Laterality Blood 06/26/2022 6:41 AM 7:47 CDT AM CDT Patrice Hollins MD LABORATORY Performing Organization Address City/[facility]/ZIP Code Phon e Number [facility] [place] [address] (ABNORMAL) PANEL LIPID (06/26/2022 6:41 AM CDT) athologist Signature Cholesterol 128 <=200 mg/dL [facility] Comment: Interpretive Data <200 Desirable 200-239 Borderline high >=240 High Triglyceride 178 (H) <=150 mg/dL [facility] Comment: Interpretive Data <150 Normal 150-199 Borderline high 200-499 High >=500 Very high HDL 31 (L) >=40 mg/dL [facility] Comment: Interpretive Data Normal > 40 Male > 50 Female Calc LDL 61 <=100 mg/dL [facility] Comment: Interpretive Data <100 Desirable 100-129 Above desirable 130-159 Borderline high 160-189 High >=190 Very high Non-HDL Cholesterol Calculated 97 <=130 mg/dL [facility] Comment: Interpretive Data <130 Desirable 130-159 Above desirable 160-189 Borderline high 190-219 High >=220 Very high Specimen Anatomical Collection Method Collection Time Receive d Time (Source) Location / / Volume Laterality Blood 06/26/2022 6:41 AM 2 CDT 12:54 PM CDT Narrative [facility] - 06/26/2022 1:12 PM CDT Fasting: No Patrice Hollins MD LABORATORY Performing Organization Address City/[facility]/ZIP Code Phon e Number [facility] [place] [address] OSMOLALITY,URINE-RANDOM ASIA (06/25/2022 5:08 PM CDT) athologist Signature Urine Osmo [phone] [facility] mOsm/Kg Specimen Anatomical Collection Method Collection Time Receive d Time (Source) Location / / Volume Laterality Urine 06/25/2022 5:08 PM 2 5:39 CDT PM CDT Patrice Hollins MD LABORATORY Performing Organization Address City/[facility]/ZIP Code Phon e Number [facility] [place] [address] (ABNORMAL) SODIUM,URINE-RANDOM ASIA (06/25/2022 5:08 PM CDT) athologist Signature Sodium Urine 30 (L) 40 - 200 [facility] mEq/L Specimen Anatomical Collection Method Collection Time Receive d Time (Source) Location / / Volume Laterality Urine 06/25/2022 5:08 PM 2 5:39 CDT PM CDT Patrice Hollins MD LABORATORY Performing Organization Address City/[facility]/ZIP Code Phon e Number [facility] [place] [address] PELVIS NO IV CON+ 3D RECON (06/25/2022 4:01 PM CDT) Anatomical Region Laterality Modality Pelvis Computed Tomography Specimen (Source) Anatomical Collection Method Collection Time Re ceived Time Location / / Volume Laterality 06/25/2022 4:00 PM CDT Impressions 06/25/2022 4:09 PM CDT Impression: Stable right sacral, right anterior acetabular column and inferior right pubic ramus fracture alignment. Reading Radiologist: Danny Dodson 06/25/2022 4:09 PM CDT Indication: Pelvic fracture ??post-operative ?? Comparison: 06/19/2022 and 06/15/2022 Technique: Helical acquisition of CT edwar ges of the pelvis and proximal femora without IV contrast. 3-D recons were performed and archived. DOSE: ??Total DLP = ??400.5 mGy.cm Findings: The sacroiliac joints and mode rate right sacral fracture are in stable alignment with intact hardware. The right anterior acetabular column and inferior right pubic ramus fracture are in stabl e alignment. No new fractures are seen. Fracture involving the right ischial spine is stable in alignment as seen on axial image 55 of series 205. Procedure Note Danny Dodson DO - 06/25/2022Form atting of this note might be different from the original. Indication: Pelvic fracture post-operati ve Comparison: 06/19/2022 and 06/15/2022 Technique: Helical acquisition of CT edwar ges of the pelvis and proximal femora without IV contrast. 3-D recons were performed and archived. DOSE: Total DLP = 400.5 mGy.cm Findings: The sacroiliac joints and mode rate right sacral fracture are in stable alignment with intact hardware. The right anterior acetabular column and inferior right pubic ramus fracture are in stable alignment. No new fractures are seen. Fracture involvi ng the right ischial spine is stable in alignment as seen on axial image 55 of series 205. IMPRESSION Impression: Stable right sacral, right a nterior acetabular column and inferior right pubic ramus fracture alignment. Reading Radiologist: Danny Dodson Miri Matthew MD CT BODY OSMOLALITY SERUM (06/25/2022 5:51 AM CDT) P athologist Signature Serum Osmo [phone] [facility] mOsm/Kg Specimen Anatomical Collection Method Collection Time Receive d Time (Source) Location / / Volume Laterality Blood 06/25/2022 5:51 AM 4:44 CDT PM CDT Patrice Hollins MD LABORATORY Performing Organization Address City/State/ZIP Code Phon e Number [facility] [place] [address] XR C ARM OVER 3 HRS (06/24/2022 3:25 PM CDT)Only the most recent of2 results within the time period is included. Specimen (Source) Anatomical Location Collection Method / Collectio n Time Received Time / Laterality Volume Roosevelt Brown MD FLUORO Intubation/Airway (06/24/2022 2:24 PM CDT) Narrative Cortez Caldwell SRNA - 06/24/2022 2:24 P M CDT Cortez Caldwell SRNA ? 06/24/2022 ??2:25 PM AIRWAY/INTUBATION PROCEDURE direct laryngoscopy ??(Type: Surgical An esthesia) Process/Method: sedated and paralyzed ?? Indications for procedure: surgery Assessment: TMD >3 finger breadths and v ocal cords open and clear Preoxygenation: mask Device Device used: Tabulous Cloud Supporting device: ?? Blade size: 2 The patient was intubated with a 7.5 mm standard endotracheal tube inflated to seal and secured at 21 cm to Teeth Grade: I Himanshu used Narrative 1 intubation attempt(s) confirmed in 0-3 0 sec using BVM ventilation between attempts ?? Intubation Assessment: +ETCO2, EBBS and fog in ETT Ease of masking (I-easy to IV-difficult) : I Ease of intubation (I-easy to IV-difficu lt): I Dentition Assessment: dentition unchange d and oral mucosa unchanged Performed by: Anesthesiologist: Vish Aguirre MD CLERICAL SPECIALIST: Shanti Kruse APRN, CRNA Other: ?? [id number] CORTEZ CALDWELL [id number] Events: @[facility]([id number])@ Vish Aguirre MD PROCEDURES RED BLOOD CELLS LEUKOCYTE REDUCED ADULT (BLOOD ADMIN) (06/24/2022 8:39 AM CDT) P athologist Signature RBC Ready Product [facility] Ready Specimen Anatomical Collection Method Collection Time Receive d Time (Source) Location / / Volume Laterality Other 06/24/2022 8:39 AM 2 8:39 CDT AM CDT Narrative [facility] - 06/24/2022 8:45 AM CDT 2 units watermelon inspector to OR to have available in case 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 bleeding Is a signed informed consent on file: Ludwig regan-on file Reason for Transfusion:->Anticipated Blo od Loss for Surgery/Procedure Does patient require irradiated product: No 2 Units Miri Matthew MD BLOOD BANK ORDERABLES (BLOOD ADMIN) Performing Organization Address City/State/ZIP Code Phon e Number [facility] [place] [address] (ABNORMAL) ANTI XA HEPARIN UNFRACTIONATED (06/24/2022 7:04 AM CDT)Only the most recent of16 resultswithin the time period is included. athologist Signature Anti XA Hep U 0.12 (L) 0.30 - [facility] 0.70 IU/mL Specimen Anatomical Collection Method Collection Time Receive d Time (Source) Location / / Volume Laterality Blood 06/24/2022 7:04 AM 2 7:35 CDT AM CDT Patrice Hollins MD LABORATORY Performing Organization Address City/[facility]/ZIP Code Phon e Number [facility] [place] [address] MAGNESIUM (06/24/2022 5:43 AM CDT) athologist Signature Magnesium 2.0 1.6 - 2.6 [facility] mg/dL Specimen Anatomical Collection Method Collection Time Receive d Time (Source) Location / / Volume Laterality Blood 06/24/2022 5:43 AM 2 6:18 CDT AM CDT Patrice Hollins MD LABORATORY Performing Organization Address City/[facility]/ZIP Code Phon e Number [facility] [place] [address] (ABNORMAL) PROTHROMBIN (PT) & INR (06/22/2022 10:53 AM CDT)Only the most recent of2 resultswithin the time period is included. athologist Signature PT 13.9 (H) 9.0 - 12.5 [facility] sec INR 1.2 (H) 0.8 - 1.1 [facility] Specimen Anatomical Collection Method Collection Time Receive d Time (Source) Location / / Volume Laterality Blood 06/22/2022 10:53 06/22/2022 AM CDT 11:01 AM CDT Patrice Hollins MD LABORATORY Performing Organization Address City/[facility]/ZIP Code Phon e Number [facility] [place] [address] ANTIBODY SCREEN (06/22/2022 10:53 AM CDT)Only the most recent of2 resultswithin the time period is included. P athologist Signature Sabrina Screen Negative [facility] Specimen Anatomical Collection Method Collection Time Receive d Time (Source) Location / / Volume Laterality Blood 06/22/2022 10:53 06/22/2022 AM CDT 11:02 AM CDT Patrice Hollins MD LAB TRANSFUSION SERVICES Performing Organization Address City/[facility]/ZIP Code Phon e Number [facility] [place] [address] BLOOD TYPING-ABO/RH (06/22/2022 10:53 AM CDT)Only the most recent of2 results within the time period is included. athologist Signature ABORHG A POS [facility] Specimen Anatomical Collection Method Collection Time Receive d Time (Source) Location / / Volume Laterality Blood 06/22/2022 10:53 06/22/2022 AM CDT 11:02 AM CDT Patrice Hollins MD LAB TRANSFUSION SERVICES Performing Organization Address City/[facility] Code Phon e Number [facility] [place] [address] COVID-19 SURVEILLANCE (06/22/2022 7:10 AM CDT)Only the most recent of2 results within the time period is included. Patholo gist Method Time Signature COVID-19 Not Detected Not Detected [facility] Specimen (Source) Anatomical Collection Method Collection Time Re ceived Time Location / / Volume Laterality Nasopharyngeal Swab 06/22/2022 7:10 06/22 AM CDT 11:15 AM CDT Narrative [facility] - 06/22/2022 12:26 PM CDT Preferred specimen is Nasopharyngeal swab Is the patient a healthcare employee: No Is the patient a [employer]) Employee : No Patrice Hollins MD LABORATORY Performing Organization Address City/[facility]/ZIP Code Phon e Number [facility] [place] [address] ANTI XA ASSAY LMW HEPARIN (06/22/2022 5:25 AM CDT) athologist Signature Anti XA LMW 0.63 IU/mL [facility] Comment: Anti Xa Assay LMW Heparin Therapeutic Ra nges: 0.4-1.1 IU/mL for twice daily 1.0-2.0 IU/mL for once daily Specimen Anatomical Collection Method Collection Time Receive d Time (Source) Location / / Volume Laterality Blood 06/22/2022 5:25 AM 5:39 CDT AM CDT Patrice Hollins MD LABORATORY Performing Organization Address [facility]/ZIP Code Phon e Number [facility] [place] [address] XR ANKLE RIGHT 3 V AP/OBL/LAT* (06/20/2022 1:41 PM CDT) Anatomical Region Laterality Modality Foot Computed Radiography Specimen (Source) Anatomical Collection Method Collection Time Re ceived Time Location / / Volume Laterality 06/20/2022 1:53 PM CDT Impressions 06/20/2022 1:53 PM CDT Impression: No fracture. Reading Radiologist: Mario Orr Narrative 06/20/2022 1:53 PM CDT Indication: ??pain post trauma after falling off 30ft scaffolding ?? Findings: The alignment is normal. No fr acture or dislocation is seen. No other abnormality is noted. Procedure Note Mario Orr MD - 06/20/2022Formatti ng of this note might be different from the original. Indication: pain post trauma after falli ng off 30ft scaffolding Findings: The alignment is normal. No fr acture or dislocation is seen. No other abnormality is noted. IMPRESSION Impression: No fracture. Reading Radiologist: aMrio Orr Patrice Hollins MD X-RAY TELEMETRY STRIPS (06/20/2022 9:37 AM CDT)Only the most recent of6 resultswithin the time period is included. Narrative 06/20/2022 9:37 AM CDT This result has an attachment that is no t available. Ordered by an unspecified provider. Provider Unknown ECHO EXTRA TUBE - SST (06/20/2022 1:05 AM CDT)Only the most recent of2 resultswithin the time period is included. athologist Signature SST TUBE Stored [facility] Comment: SST tubes (Serum Separator) are stored in the lab for 3 days from the collection date. Specimen Anatomical Collection Method Collection Time Receive d Time (Source) Location / / Volume Laterality Blood 06/20/2022 1:05 AM 1:05 CDT AM CDT Kingston Castañeda MD LABORATORY Performing Organization Address City/State/ZIP Code Phon e Number [facility] [place] [address] XR FOOT RIGHT 3 V AP/OBL/LAT* (06/19/2022 7:45 PM CDT) Anatomical Region Laterality Modality Foot Computed Radiography Specimen (Source) Anatomical Collection Method Collection Time Re ceived Time Location / / Volume Laterality 06/19/2022 8:36 PM CDT Impressions 06/19/2022 8:36 PM CDT Impression: No fracture seen. Reading Radiologist: Anam Saleh Narrative 06/19/2022 8:36 PM CDT Indication: right foot pain post trauma ?? Comparison: None Findings: Images through the right foot obtained. No fracture seen. Overlying soft tissues are unremarkable. Bones are mildly osteopenic. Procedure Note Anam Saleh MBBS - 06/19/2022Forma tting of this note might be different from the original. Indication: right foot pain post trauma Comparison: None Findings: Images through the right foot obtained. No fracture seen. Overlying soft tissues are unremarkable. Bones are mildly osteopenic. IMPRESSION Impression: No fracture seen. Reading Radiologist: Anam Saleh Patrice Hollins MD X-RAY XR SPINE THORACOLUMBAR UPRIGHT (06/19/2022 5:58 PM CDT) Anatomical Region Laterality Modality Thoracic Spine Computed Radiography Specimen (Source) Anatomical Collection Method Collection Time Re ceived Time Location / / Volume Laterality 06/19/2022 7:05 PM CDT Impressions 06/19/2022 7:06 PM CDT Impression: Stable alignment. Stable height of the fractured T12 and L1 vertebral body. Reading Radiologist: Dora Mathew Narrative 06/19/2022 7:06 PM CDT Thoracolumbar spine 3 views Indication: T12 and L1 fractures Findings: Vertebral body alignment is no rmal and stable. Stable compression fracture of T12 and L1. Height of the fractured vertebrae is unchanged. Disc spaces are preserved. Diffuse dilatation of the l oops of small and large bowel. Airspace disease in the lung bases. Procedure Note Dora Mathew MD - 06/19/2022Formattin g of this note might be different from the original. Thoracolumbar spine 3 views Indication: T12 and L1 fractures Findings: Vertebral body alignment is no rmal and stable. Stable compression fracture of T12 and L1. Height of the fractured vertebrae is unchanged. Disc spaces are preserved. Diffuse dilatation of the loops of small and large bowel. Airspace disease in the lung bases. IMPRESSION Impression: Stable alignment. Stable hei ght of the fractured T12 and L1 vertebral body. Reading Radiologist: Dora Mathew Tamera LUGO-Trav X-RAY CT PELVIS 3D RECONSTRUCTION (06/19/2022 11:49 AM CDT) Anatomical Region Laterality Modality Pelvis Computed Tomography Specimen (Source) Anatomical Collection Method Collection Time Re ceived Time Location / / Volume Laterality 06/19/2022 11:59 AM CDT Impressions 06/19/2022 8:48 PM CDT Impression: 1. Interval transsacral pinning. Comminu luke right sacral fracture with multiple displaced bone fragments. Alignment of the SI joints and pubic symphysis is within normal limits. 2. Additional fractures including subtle nondisplaced transverse acetabular fracture on the right, right ischial spine avulsion, and right pubic rami fractures are unchanged. Reading Radiologist: Rizwan Cunningham Narrative 06/19/2022 8:[address] of the pelvis without contrast 3-D reconstructions of the pelvis CLINICAL HISTORY: Fracture Comparison: 06/15/2022 Findings: CT of the pelvis reconstructed from CT of the chest, abdomen and pelvis done at the same time. 3-D reconstructions are obtained and archived. Findings: Postoperative changes from tra nssacral pinning. The screw head and washer appear to be embedded partially within the bone. Alignment of the SI joints is within normal limits. Markedly comminut ed fracture of the right sacrum involvin g multiple neural foramina. There is also avulsion fracture from the right ischial spine. High right pubic ramus fracture involving the pubic root, as well as the right inferior pubic ramus fracture not ed. Alignment of the pubic ramus fractures is within normal limits. Subtle nondisplaced transverse acetabula r fracture on the right side. Pelvic hemorrhage, extending into the an terior space of Retzius. Sequelae of old right rectus femoris avulsion. Right-sided transverse process fractures in the lower lumbar spine. Procedure Note Rizwan Cunningham V., [facility] [place]22Form atting of this note might be different from the original. CT of the pelvis without contrast 3-D reconstructions of the pelvis CLINICAL HISTORY: Fracture Comparison: 06/15/2022 Findings: CT of the pelvis reconstructed from CT of the chest, abdomen and pelvis done at the same time. 3-D reconstructions are obtained and archived. Findings: Postoperative changes from tra nssacral pinning. The screw head and washer appear to be embedded partially within the bone. Alignment of the SI joints is within normal limits. Markedly comminuted fracture of the right sacrum involving multiple neural f oramina. There is also avulsion fracture from the right ischial spine. High right pubic ramus fracture involving the pubic root, as well as the right inferior pubic ramus fracture noted. Alignment of the pubic r amus fractures is within normal limits. Subtle nondisplaced transverse acetabula r fracture on the right side. Pelvic hemorrhage, extending into the an terior space of Retzius. Sequelae of old right rectus femoris avulsion. Right-sided transverse process fractures in the lower lumbar spine. IMPRESSION Impression: 1. Interval transsacral pinning. Comminu luke right sacral fracture with multiple displaced bone fragments. Alignment of the SI joints and pubic symphysis is within normal limits. 2. Additional fractures including subtle nondisplaced transverse acetabular fracture on the right, right ischial spine avulsion, and right pubic rami fractures are unchanged. Reading Radiologist: Rizwan Cunningham Miri Matthew MD CT BODY CT UROGRAM (06/19/2022 11:05 AM CDT) Anatomical Region Laterality Modality Abdomen, Pelvis Computed Tomography Specimen (Source) Anatomical Collection Method Collection Time Re ceived Time Location / / Volume Laterality 06/19/2022 10:59 AM CDT Impressions 06/19/2022 8:53 PM CDT Impression: 1. No evidence for ureteral injury. 2. Extensive pelvic fractures as describ ed previously with fixation of the SI joints. Pelvic hemorrhage again noted, extending into the anterior space of Retzius. No active extravasation. 3. Bibasilar atelectasis with small effu sions. Reading Radiologist: Rizwan Cunningham Narrative 06/19/2022 8:53 PM CDT Comparison: CT from 06/15/2022 Indication: r/o urologic injury post tra kaur ?? Technique: Volumetric helical acquisitio n of CT images from the lung bases through the symphysis pubis before the administration of IV contrast. 20 mg furosemide administered intravenously. DOSE: ?Total DLP = 1445 mGy.cm. ?? Findings: Kidneys, ureters and bladder: The kidney s are normal. There is good distention of the collecting systems, without filling defects. The ureters are well distended and appear intact. Catheter in the urinary bladder. Liver: Within normal limits. Gallbladder and biliary tree: No calcifi ed gallstones. No intra- or extrahepatic biliary ductal dilation. Pancreas: Within normal limits. Spleen: Within normal limits. Adrenals: Within normal limits. Reproductive organs: No pelvic masses. Bowel: Normal caliber small bowel and la rge bowel. Lymph nodes: No enlarged lymph nodes. Peritoneum: No ascites or free air. No o ther fluid collection. Vessels: Aorta and major branches are pa tent without aneurysm or significant stenosis. Portal vein and superior mesenteric vein are patent. IVC filter in place. Skeletal structures: Comminuted fracture of the right sacrum, with screw fixating the SI joints. Fractures of the right inferior and superior pubic rami. Pelvic hemorrhage, including presacral and retro peritoneal hemorrhage, without evidence of active extravasation.. Lung bases: Bibasilar atelectasis with t race pleural effusions. Procedure Note Rizwan Cunningham MBBS - 06/19/2022Form atting of this note might be different from the original. Comparison: CT from 06/15/2022 Indication: r/o urologic injury post tra kaur Technique: Volumetric helical acquisitio n of CT images from the lung bases through the symphysis pubis before the administration of IV contrast. 20 mg furosemide administered intravenously. DOSE: Total DLP = 1445 mGy.cm. Findings: Kidneys, ureters and bladder: The kidney s are normal. There is good distention of the collecting systems, without filling defects. The ureters are well distended and appear intact. Catheter in the urinary bladder. Liver: Within normal limits. Gallbladder and biliary tree: No calcifi ed gallstones. No intra- or extrahepatic biliary ductal dilation. Pancreas: Within normal limits. Spleen: Within normal limits. Adrenals: Within normal limits. Reproductive organs: No pelvic masses. Bowel: Normal caliber small bowel and la rge bowel. Lymph nodes: No enlarged lymph nodes. Peritoneum: No ascites or free air. No o ther fluid collection. Vessels: Aorta and major branches are pa tent without aneurysm or significant stenosis. Portal vein and superior mesenteric vein are patent. IVC filter in place. Skeletal structures: Comminuted fracture of the right sacrum, with screw fixating the SI joints. Fractures of the right inferior and superior pubic rami. Pelvic hemorrhage, including presacral and retroperitoneal hemorrhage, without evidence of active e xtravasation.. Lung bases: Bibasilar atelectasis with t race pleural effusions. IMPRESSION Impression: 1. No evidence for ureteral injury. 2. Extensive pelvic fractures as describ ed previously with fixation of the SI joints. Pelvic hemorrhage again noted, extending into the anterior space of Retzius. No active extravasation. 3. Bibasilar atelectasis with small effu sions. Reading Radiologist: Rizwan Cunningham Patrice Hollins MD CT BODY XR O ARM 0-1 HR (06/18/2022 5:50 PM CDT) Specimen (Source) Anatomical Location Collection Method / Collectio n Time Received Time / Laterality Volume Miri Matthew MD FLUORO Intubation/Airway (06/18/2022 5:00 PM CDT) Narrative Rissa Person APRN, THOR - 5:00 PM CDT Rissa Person APRN, CRNA ? 06/18/2022 ??5:01 PM AIRWAY/INTUBATION PROCEDURE GlideScope ??(Type: Surgical Anesthesia) Process/Method: sedated and paralyzed ?? Indications for procedure: surgery Assessment: vocal cords open and clear Preoxygenation: mask Device Device used: Glidescope Supporting device: ?? Blade size: 3 The patient was intubated with a 7.5 mm standard endotracheal tube inflated to seal and secured at 24 cm to Teeth Grade: I Narrative 1 intubation attempt(s) confirmed in 0-3 0 sec ?? Intubation Assessment: +ETCO2, EBBS and fog in ETT Ease of masking (I-easy to IV-difficult) : I Ease of intubation (I-easy to IV-difficu lt): I Dentition Assessment: dentition unchange d and oral mucosa unchanged Performed by: CLERICAL SPECIALIST: Rissa Person APRN, CRNA Additional Notes Glidescope used d/t patient being down i n bed with traction to leg Events: @PLINK([id number])@ Alex Leos MD PROCEDURES .Post Sedation Immediate (06/18/2022 12:23 PM CDT) Narrative Ronal Rouse MD - 06/18/2022 12:23 PM CDT Roberth Irene DO ? 06/18/2022 12:24 PM .Post Sedation Immediate Date/Time: 06/18/2022 12:23 PM Performed by: Roberth Irene DO Authorized by: Ronal Rouse MD There were no complications during sedat ion. Pre Procedure Diagnosis: Need for thromb oembolization protection Post Procedure Diagnosis: Need for throm boembolization protection Infrarenal IVC filter placed. See Proced ural note in Chart Review for further information regarding the proced ure details. Ronal Rouse MD PROCEDURES IR IVC FILTER PLACEMENT (06/18/2022 12:09 PM CDT) Anatomical Region Laterality Modality Abdomen X-Ray Angiography Specimen (Source) Anatomical Collection Method Collection Time Re ceived Time Location / / Volume Laterality 06/18/2022 6:07 PM CDT Impressions 06/18/2022 6:09 PM CDT Impression: Successful placement of an infrarenal Op tion Elite IVC filter via right common femoral vein access. Reading Radiologist: Ronal Rouse Narrative 06/18/2022 6:09 PM CDT Procedure 06/18/2022 6:07 PM: 1. Ultrasound guidance for vascular acce ss. 2. IVC filter placement under fluoroscop ic guidance. Indication: DVT ?? Sedation: Local anesthesia only was used . Comparison: CT 06/15/2022 Dose: 64 mGy Fluoroscopy time: 1.3 minutes Contrast: 20cc visipaque [id number] Attending: Kaylah Rouse M.D. Fellow: David Irene D.O.. Findings/procedure: Prior to the procedure, written and verb al consent was obtained. The patient was brought to the procedural suite and placed supine on the fluoroscopy table. The right groin was prepped and draped in sta ndard sterile fashion. A limited preproc edure ultrasound was performed, which demonstrated a patent and compressible right common femoral vein. The overlying soft tissues were anesthetized with 1% lidoc manfred solution. Under direct ultrasound g uidance, a 21-gauge needle was advanced into the vein. An image of the needle in the vein was saved into the permanent record. A 0.035 Bentson guidewire was advan lena through the needle into the IVC. A 5 Cymraes pigtail flush catheter was advanced over the Bentson wire into the infrarenal IVC. The guidewire was removed. An IVC venogram was performed, which demonst rated the renal vein inflow. The cathete r was exchanged for the delivery sheath. A Option Elite IVC filter was advanced through the delivery sheath and deployed under fluoroscopy. Postoperative deployme nt venogram demonstrated mild tilting, b ut satisfactory. The sheath and wire were removed. Hemostasis was obtained with manual pressure at the venotomy site. There were no immediate complications. Procedure Note Ronal Rouse MD - 06/18/2022Formatt ing of this note might be different from the original. Procedure 06/18/2022 6:07 PM: 1. Ultrasound guidance for vascular acce ss. 2. IVC filter placement under fluoroscop ic guidance. Indication: DVT Sedation: Local anesthesia only was used . Comparison: CT 06/15/2022 Dose: 64 mGy Fluoroscopy time: 1.3 minutes Contrast: 20cc visipaque [id number] Attending: Kaylah Rouse M.D. Fellow: David Irene D.O.. Findings/procedure: Prior to the procedure, written and verb al consent was obtained. The patient was brought to the procedural suite and placed supine on the fluoroscopy table. The right groin was prepped and draped in standard sterile fashion. A limited preprocedure ultrasound was performed, which demonstrated a patent and compressible right common femoral vein. The overlying soft tissues were anesthetized with 1% lidocaine solution. Under direct ultrasound guidance, a 21-gauge n eedle was advanced into the vein. An image of the needle in the vein was saved into the permanent record. A 0.035 Bentson guidewire was advanced through the needle into the IVC. A 5 Cymraes pigtail flush catheter was advanc ed over the Bentson wire into the infrarenal IVC. The guidewire was removed. An IVC venogram was performed, which demonstrated the renal vein inflow. The catheter was exchanged for the delivery sheath. A Option Elite IVC filter was advanced through the delivery sheath and deployed under fluoroscopy. Postoperative deployment venogram demonstrated mild tilting, but satisfactory. The sheath and wire were removed. Hemostasis was obtained wi th manual pressure at the venotomy site. There were no immediate complications. IMPRESSION Impression: Successful placement of an infrarenal Op tion Elite IVC filter via right common femoral vein access. Reading Radiologist: Ronal Rouse Ed Beaver PA-C [facility] RAD XR URETHROGRAM RETROGRADE (06/18/2022 9:14 AM CDT) Anatomical Region Laterality Modality Abdomen Radio Fluoroscopy Specimen (Source) Anatomical Collection Method Collection Time Re ceived Time Location / / Volume Laterality 06/18/2022 11:18 AM CDT Impressions 06/18/2022 11:22 AM CDT IMPRESSION: No evidence for anterior urethral injury. Reading Radiologist: Mario Orr Narrative 06/18/2022 11:22 AM CDT Indication: ??r/o bladder injury ?? PROCEDURE: The patient was placed supine on the fluoroscopy table. The urethral meatus was prepped and draped in usual sterile fashion. Viscous Lidocaine was used to anesthetize the urethral meatus. A p ediatric feeding tube was then advanced along the existing Rangel catheter into the penile urethra. A retrograde urethrogram was performed. The posterior urethra was not opacified. The remainder of the u rethra was unremarkable. No extravasatio n was demonstrated. Cement Mixer Driver: Kirby Complications: None Fluoroscopy time: 22 seconds Dose: 12 mGy Procedure Note Mario Orr MD - 06/18/2022Formatti ng of this note might be different from the original. Indication: r/o bladder injury PROCEDURE: The patient was placed supine on the fluoroscopy table. The urethral meatus was prepped and draped in usual sterile fashion. Viscous Lidocaine was used to anesthetize the urethral meatus. A pediatric feeding tube was then advanced along the existin g Rangel catheter into the penile urethra. A retrograde urethrogram was performed. The posterior urethra was not opacified. The remainder of the urethra was unremarkable. No extravasation was demonstrated. Cement Mixer Driver: Kirby Complications: None Fluoroscopy time: 22 seconds Dose: 12 mGy IMPRESSION IMPRESSION: No evidence for anterior ure thral injury. Reading Radiologist: Mario Orr Patrice Hollins MD FLUORO XR PELVIS 5V AP/IN/OUTLET/JUDET* (06/16/2022 12:19 PM CDT) Anatomical Region Laterality Modality Pelvis Computed Radiography Specimen (Source) Anatomical Collection Method Collection Time Re ceived Time Location / / Volume Laterality 06/16/2022 12:33 PM CDT Impressions 06/16/2022 12:35 PM CDT Impression: Stable alignment of multiple right pelvi c fractures including right acetabular and right sacral fractures Reading Radiologist: Sam Delgado Narrative 06/16/2022 12:35 PM CDT Indication: Pelvic ring injury, eval tab ?? Comparison: CT dated 06/15/2022 Findings: Transverse fractures with mild comminution involving the root of the superior pubic ramus and the mid inferior pubic ramus on the right side. Also posterior right acetabular fracture. Vertical ly oriented fracture through the right s acral wing with mild impaction. Procedure Note Sam Delgado MD - 06/16/2022Format ting of this note might be different from the original. Indication: Pelvic ring injury, eval tab Comparison: CT dated 06/15/2022 Findings: Transverse fractures with mild comminution involving the root of the superior pubic ramus and the mid inferior pubic ramus on the right side. Also posterior right acetabular fracture. Vertically oriented fracture through the right sacral wing w ith mild impaction. IMPRESSION Impression: Stable alignment of multiple right pelvi c fractures including right acetabular and right sacral fractures Reading Radiologist: Sam Delgado Kingston Castañeda MD X-RAY XR CYSTOGRAM (06/16/2022 11:56 AM CDT) Anatomical Region Laterality Modality Abdomen Radio Fluoroscopy Specimen (Source) Anatomical Collection Method Collection Time Re ceived Time Location / / Volume Laterality 06/16/2022 3:51 PM CDT Impressions 06/16/2022 4:06 PM CDT Impression: 1. No evidence of bladder rupture. I have personally reviewed the image(s) and initial interpretation, and I agree with the findings as documented by the resident/fellow. Reading Radiologist: Anam Saleh Reading Resident: Josse Pringle 06/16/2022 4:06 PM CDT Exam: ??Cystogram Indication: Rule out bladder rupture Comparison: CT chest abdomen and pelvis 06/15/2022. Fluoroscopy time: ??22 seconds Dose:12 mGy [place] protocol was followed. ?? Technique: The patient arrived in the ra diology department with a Rangel catheter in place. A Rangel catheter drainage bag was clamped. Approximately 150 ml of Cystografin 8.5% was administered to the babs dder in a retrograde fashion by gravity. The patient indicated a sensation of fullness in the bladder and then need to urinate. Images were obtained in AP, lateral and oblique views. A post drain image is taken at the completion of the exam. Complications: ??None Findings: The bladder is normal in appea vy and there is no evidence of extravasation of contrast. Procedure Note Anam Saleh, LEONARDBS - 06/16/2022Forma tting of this note might be different from the original. Exam: Cystogram Indication: Rule out bladder rupture Comparison: CT chest abdomen and pelvis 06/15/2022. Fluoroscopy time: 22 seconds Dose:12 mGy [place] protocol was followed. Technique: The patient arrived in the ra diology department with a Rangel catheter in place. A Rangel catheter drainage bag was clamped. Approximately 150 ml of Cystografin 8.5% was administered to the bladder in a retrograde fashion by gravity. The patient indicated a sensation of fullness in the bladder and then need to urinate. Images were obtained in AP, lateral and oblique views. A post drain image is taken at the completion of the exam. Complications: None Findings: The bladder is normal in appea vy and there is no evidence of extravasation of contrast. IMPRESSION Impression: 1. No evidence of bladder rupture. I have personally reviewed the image(s) and initial interpretation, and I agree with the findings as documented by the resident/fellow. Reading Radiologist: Anam Saleh Reading Resident: Josse Pringle Patrice Hollins MD X-RAY LACTATE (LACTIC ACID) (06/16/2022 2:20 AM CDT)Only the most recent of2 results within the time period is included. athologist Signature Lactate 0.7 0.7 - 2.1 [facility] mmol/L Specimen Anatomical Collection Method Collection Time Receive d Time (Source) Location / / Volume Laterality Blood 06/16/2022 2:20 AM 2 2:47 CDT AM CDT Narrative [facility] - 06/16/2022 3:06 AM CDT Send specimen on ice! Gideon Dyer MD LABORATORY Performing Organization Address City/State/ZIP Code Phon e Number [facility] [address] (ABNORMAL) URINALYSIS,TOTAL (06/16/2022 12:20 AM CDT) [facility] Method Time Signature Color YELLOW YELLOW [facility] Appearance CLEAR CLEAR [facility] Urine Glucose NEGATIVE NEGATIVE [facility] mg/dL Bili UA NEGATIVE NEGATIVE [facility] Ketones TRACE (A) NEGATIVE [facility] mg/dL Blood Ur NEGATIVE Neg-Trace [facility] PH Urine 5.5 5.0 - 7.0 [facility] Protein Ur TRACE Neg-Trace [facility] mg/dL Urobilinogen NORMAL NORMAL EU/dL [facility] Nitrite Ur NEGATIVE NEGATIVE [facility] Leuk Est NEGATIVE Neg-Trace [facility] WBC Ur 6-10 (A) 0 - 5 perHPF [facility] RBC Ur 11-20 (A) 0 - 3 perHPF [facility] SQ EPITH 0-5 0 - 5 perHPF [facility] Mucus 1+ perLPF [facility] Sperm PRESENT [facility] Bacteria UA PRESENT [facility] Comment: Presence of bacteria does not n ecessarily indicate a UTI. The presence of bacteria can indicate a non-clean catch urine specimen. Bacteria should be used in conjunction with other UA results and cl inical presentation to assist in diagnosing an infection. Urinalysis Performed at: [facility] Specific Abbott 1.010 1.003 - 1.030 [facility] Specimen Anatomical Collection Method Collection Time Receive d Time (Source) Location / / Volume Laterality Urine 06/16/2022 12:20 06/16/2022 AM CDT 12:39 AM CDT Gideon Dyer MD LABORATORY Performing Organization Address City/State/ZIP Code Phon e Number [facility] [place] [address] [place] [address] XR KNEE RIGHT 2 V AP/LAT (06/15/2022 11:20 PM CDT) Anatomical Region Laterality Modality Lower Extremity Computed Radiography Specimen (Source) Anatomical Collection Method Collection Time Re ceived Time Location / / Volume Laterality 06/15/2022 11:27 PM CDT Impressions 06/15/2022 11:27 PM CDT Impression: Interval placement of traction pin. Reading Radiologist: Rizwan Cunningham Narrative 06/15/2022 11:27 PM CDT Indication: ??s/p traction pin ?? Findings: Interval placement of traction pin in the distal femur. No associated complication. Procedure Note Rizwan Cunningham MBBS - 06/15/2022Form atting of this note might be different from the original. Indication: s/p traction pin Findings: Interval placement of traction pin in the distal femur. No associated complication. IMPRESSION Impression: Interval placement of tracti on pin. Reading Radiologist: Rizwan Cunningham Kingston Castañeda MD X-RAY XR TIB FIB RIGHT 2 V AP + LAT* (06/15/2022 10:05 PM CDT) Anatomical Region Laterality Modality Lower Extremity Computed Radiography Specimen (Source) Anatomical Collection Method Collection Time Re ceived Time Location / / Volume Laterality 06/15/2022 10:20 PM CDT Impressions 06/15/2022 10:23 PM CDT Impression: No definite acute fracture. Reading Radiologist: Rizwan Cunningham Narrative 06/15/2022 10:23 PM CDT Indication: ??r/o fx ?? Findings: Bones are osteopenic. No defin ite acute fracture is seen. Procedure Note Rizwan Cunningham MBBS - 06/15/2022Form atting of this note might be different from the original. Indication: r/o fx Findings: Bones are osteopenic. No defin ite acute fracture is seen. IMPRESSION Impression: No definite acute fracture. Reading Radiologist: Rizwan Cunningham Kingston Castañeda MD X-RAY XR TIB FIB LEFT 2 V AP + LAT* (06/15/2022 10:05 PM CDT) Anatomical Region Laterality Modality Lower Extremity Computed Radiography Specimen (Source) Anatomical Collection Method Collection Time Re ceived Time Location / / Volume Laterality 06/15/2022 10:23 PM CDT Impressions 06/15/2022 10:24 PM CDT Impression: No acute fracture. Reading Radiologist: Rizawn Cunningham Narrative 06/15/2022 10:24 PM CDT Indication: ??r/o fx ?? Findings: No acute fracture or subluxati on is seen. Procedure Note Rizwan Cunningham MBBS - 06/15/2022Form atting of this note might be different from the original. Indication: r/o fx Findings: No acute fracture or subluxati on is seen. IMPRESSION Impression: No acute fracture. Reading Radiologist: Rizwan Cunningham Kingston Castañeda MD X-RAY XR FEMUR RIGHT AP + LAT* (06/15/2022 10:05 PM CDT) Anatomical Region Laterality Modality Upper Leg Computed Radiography Specimen (Source) Anatomical Collection Method Collection Time Re ceived Time Location / / Volume Laterality 06/15/2022 10:14 PM CDT Impressions 06/15/2022 10:19 PM CDT Impression: No fracture involving the right femur. Reading Radiologist: Rizwan Cunningham Narrative 06/15/2022 10:19 PM CDT Indication: ??r/o fracture ?? Comparison: CT from same day Findings: Right pubic root fracture, and inferior pubic ramus fracture. Known right acetabular fracture is not well seen on these views. No femur fracture is identified. Procedure Note Rizwan Cunningham MBBS - 06/15/2022Form atting of this note might be different from the original. Indication: r/o fracture Comparison: CT from same day Findings: Right pubic root fracture, and inferior pubic ramus fracture. Known right acetabular fracture is not well seen on these views. No femur fracture is identified. IMPRESSION Impression: No fracture involving the ri ght femur. Reading Radiologist: Rizwan Cunningham Kingston Castañeda MD X-RAY XR FEMUR LEFT AP + LAT* (06/15/2022 10:05 PM CDT) Anatomical Region Laterality Modality Upper Leg Computed Radiography Specimen (Source) Anatomical Collection Method Collection Time Re ceived Time Location / / Volume Laterality 06/15/2022 10:19 PM CDT Impressions 06/15/2022 10:20 PM CDT Impression: No acute fracture involving the left femur. Reading Radiologist: Rizwan Cunningham Narrative 06/15/2022 10:20 PM CDT Indication: ??eval fx ?? Findings: Contrast in the urinary bladde r. No acute fracture involving the left femur. Procedure Note Rizwan Cunningham MBBS - 06/15/2022Form atting of this note might be different from the original. Indication: eval fx Findings: Contrast in the urinary bladde r. No acute fracture involving the left femur. IMPRESSION Impression: No acute fracture involving the left femur. Reading Radiologist: Rizwan Cunningham Kingston Castañeda MD X-RAY CT SPINE THORACIC NO IV CON (06/15/2022 7:54 PM CDT) Anatomical Region Laterality Modality Thoracic Spine Computed Tomography Specimen (Source) Anatomical Collection Method Collection Time Re ceived Time Location / / Volume Laterality 06/15/2022 7:58 PM CDT Impressions 06/15/2022 8:42 PM CDT Impression: 1. Suspected acute T12 compression fract ure with mild vertebral body height loss. No retropulsion. 2. Acute compression fracture of L1 with approximately 20-30% of vertebral body height loss. Mild retropulsion resulting in mild central canal stenosis. Minimally displaced fracture of right transverse process of L2 and L3. Comminuted and dis placed fracture of the right transverse process of L5, right sacrum, right acetabulum and inferior pubic ramus. 3. Transitional anatomy with lumbarizati on of S1 segment. Reading Radiologist: Stephany Granda Narrative 06/15/2022 8:42 PM CDT Thoracic and Lumbar Spine CT Reconstructions Indication: ??Trauma (STAB) ??. Comparison: ??None Technique: Images of the thoracic and caitlin mbar spine with axial, sagittal and coronal reconstructions were obtained from a CT examination of ??the chest and abdomen. Images were reviewed in a bone window. This is not additional radiation; these images are reconstructed from the chest/abdomen/pelvis CT Findings: Please refer to the chest/abdomen CT rep ort for the findings on those examinations. Thoracic spine: There is questionable co mpression fracture of T12 with mild vertebral body height loss. No evidence of retropulsion. Alignment of the thoracic vertebrae appears within normal limits. The spinal canal and the neural foramina bi laterally are grossly patent at all visualized levels. ??The visualized prevertebral and paravertebral soft tissues are unremarkable. Lumbar spine: Transitional anatomy with lumbarization of S1 segment. There is acute compression fracture of the L1 with approximately 20-30% of vertebral body height loss. Mild retropulsion. Acute L2, L 3 and L5 right transverse fractures. Ali gnment of the lumbar vertebrae appears within normal limits. There is no significant disc height narrowing at any level. ??The visualized prevertebral and paraver tebral soft tissues are unremarkable. Co mminuted and displaced fracture of the right sacrum, acetabulum and right inferior rami Findings on a level by level basis are a s follows: T12-L1: No focal abnormality. L1-L2: ??No focal abnormality. L2-3: ??No focal abnormality. ?? L3-4: ??No focal abnormality. L4-5: No focal abnormality. ?? L5-S1: No focal abnormality. Procedure Note Stephany Granda MD - 06/15/[address] Reconstruct ions Indication: Trauma (STAB) . Comparison: None Technique: Images of the thoracic and caitlin mbar spine with axial, sagittal and coronal reconstructions were obtained from a CT examination of the chest and abdomen. Images were reviewed in a bone window. This is not additional radiation; these images are r econstructed from the chest/abdomen/pelvis CT Findings: Please refer to the chest/abdomen CT rep ort for the findings on those examinations. Thoracic spine: There is questionable co mpression fracture of T12 with mild vertebral body height loss. No evidence of retropulsion. Alignment of the thoracic vertebrae appears within normal limits. The spinal canal and the neural foramina bilaterally are elizabeth sly patent at all visualized levels. The visualized prevertebral and paravertebral soft tissues are unremarkable. Lumbar spine: Transitional anatomy with lumbarization of S1 segment. There is acute compression fracture of the L1 with approximately 20-30% of vertebral body height loss. Mild retropulsion. Acute L2, L3 and L5 right transverse fractures. Alignment of the l umbar vertebrae appears within normal limits. There is no significant disc height narrowing at any level. The visualized prevertebral and paravertebral soft tissues are unremarkable. Comminuted and displaced f racture of the right sacrum, acetabulum and right inferior rami Findings on a level by level basis are a s follows: T12-L1: No focal abnormality. L1-L2: No focal abnormality. L2-3: No focal abnormality. L3-4: No focal abnormality. L4-5: No focal abnormality. L5-S1: No focal abnormality. IMPRESSION Impression: 1. Suspected acute T12 compression fract ure with mild vertebral body height loss. No retropulsion. 2. Acute compression fracture of L1 with approximately 20-30% of vertebral body height loss. Mild retropulsion resulting in mild central canal stenosis. Minimally displaced fracture of right transverse process of L2 and L3. Comminuted and displaced fractur e of the right transverse process of L5, right sacrum, right acetabulum and inferior pubic ramus. 3. Transitional anatomy with lumbarizati on of S1 segment. Reading Radiologist: Stephany Granda Kingston Castañeda MD CT NEURO CT SPINE LUMBAR NO IV CON (06/15/2022 7:54 PM CDT) Anatomical Region Laterality Modality Lumbar Spine Computed Tomography Specimen (Source) Anatomical Collection Method Collection Time Re ceived Time Location / / Volume Laterality 06/15/2022 7:58 PM CDT Impressions 06/15/2022 8:42 PM CDT Impression: 1. Suspected acute T12 compression fract ure with mild vertebral body height loss. No retropulsion. 2. Acute compression fracture of L1 with approximately 20-30% of vertebral body height loss. Mild retropulsion resulting in mild central canal stenosis. Minimally displaced fracture of right transverse process of L2 and L3. Comminuted and dis placed fracture of the right transverse process of L5, right sacrum, right acetabulum and inferior pubic ramus. 3. Transitional anatomy with lumbarizati on of S1 segment. Reading Radiologist: Stephany Granda Narrative 06/15/2022 8:42 PM CDT Thoracic and Lumbar Spine CT Reconstructions Indication: ??Trauma (STAB) ??. Comparison: ??None Technique: Images of the thoracic and caitlin mbar spine with axial, sagittal and coronal reconstructions were obtained from a CT examination of ??the chest and abdomen. Images were reviewed in a bone window. This is not additional radiation; these images are reconstructed from the chest/abdomen/pelvis CT Findings: Please refer to the chest/abdomen CT rep ort for the findings on those examinations. Thoracic spine: There is questionable co mpression fracture of T12 with mild vertebral body height loss. No evidence of retropulsion. Alignment of the thoracic vertebrae appears within normal limits. The spinal canal and the neural foramina bi laterally are grossly patent at all visualized levels. ??The visualized prevertebral and paravertebral soft tissues are unremarkable. Lumbar spine: Transitional anatomy with lumbarization of S1 segment. There is acute compression fracture of the L1 with approximately 20-30% of vertebral body height loss. Mild retropulsion. Acute L2, L 3 and L5 right transverse fractures. Ali gnment of the lumbar vertebrae appears within normal limits. There is no significant disc height narrowing at any level. ??The visualized prevertebral and paraver tebral soft tissues are unremarkable. Co mminuted and displaced fracture of the right sacrum, acetabulum and right inferior rami Findings on a level by level basis are a s follows: T12-L1: No focal abnormality. L1-L2: ??No focal abnormality. L2-3: ??No focal abnormality. ?? L3-4: ??No focal abnormality. L4-5: No focal abnormality. ?? L5-S1: No focal abnormality. Procedure Note Stephany Granda MD - 06/15/[address] Reconstruct ions Indication: Trauma (STAB) . Comparison: None Technique: Images of the thoracic and caitlin mbar spine with axial, sagittal and coronal reconstructions were obtained from a CT examination of the chest and abdomen. Images were reviewed in a bone window. This is not additional radiation; these images are r econstructed from the chest/abdomen/pelvis CT Findings: Please refer to the chest/abdomen CT rep ort for the findings on those examinations. Thoracic spine: There is questionable co mpression fracture of T12 with mild vertebral body height loss. No evidence of retropulsion. Alignment of the thoracic vertebrae appears within normal limits. The spinal canal and the neural foramina bilaterally are elizabeth sly patent at all visualized levels. The visualized prevertebral and paravertebral soft tissues are unremarkable. Lumbar spine: Transitional anatomy with lumbarization of S1 segment. There is acute compression fracture of the L1 with approximately 20-30% of vertebral body height loss. Mild retropulsion. Acute L2, L3 and L5 right transverse fractures. Alignment of the l umbar vertebrae appears within normal limits. There is no significant disc height narrowing at any level. The visualized prevertebral and paravertebral soft tissues are unremarkable. Comminuted and displaced f racture of the right sacrum, acetabulum and right inferior rami Findings on a level by level basis are a s follows: T12-L1: No focal abnormality. L1-L2: No focal abnormality. L2-3: No focal abnormality. L3-4: No focal abnormality. L4-5: No focal abnormality. L5-S1: No focal abnormality. IMPRESSION Impression: 1. Suspected acute T12 compression fract ure with mild vertebral body height loss. No retropulsion. 2. Acute compression fracture of L1 with approximately 20-30% of vertebral body height loss. Mild retropulsion resulting in mild central canal stenosis. Minimally displaced fracture of right transverse process of L2 and L3. Comminuted and displaced fractur e of the right transverse process of L5, right sacrum, right acetabulum and inferior pubic ramus. 3. Transitional anatomy with lumbarizati on of S1 segment. Reading Radiologist: Stephany Granda Kingston Castañeda MD CT NEURO CT CHEST/ABD/PELVIS W/IV CONT (06/15/2022 7:54 PM CDT) Anatomical Region Laterality Modality Chest Computed Tomography Specimen (Source) Anatomical Collection Method Collection Time Re ceived Time Location / / Volume Laterality 06/15/2022 7:43 PM CDT Impressions 06/15/2022 9:12 PM CDT Impression: 1. Nondisplaced fracture of the right 12 th rib posteriorly. Otherwise, no acute traumatic abnormalities in the chest. 2. Multiple pelvic fractures, including comminuted fracture of the right sacral ala, right superior and inferior pubic rami fractures, fracture of the right ischial spine, and transverse right acetabula r fracture. Presacral hemorrhage, and he morrhage along the right pelvic sidewall, without evidence for active extravasation. 3. Please see dedicated spinal reconstru ctions for T12 and lumbar spine fractures. Reading Radiologist: Rizwan Cunningham Narrative 06/15/2022 9:[address] chest, abdomen and pelvis with contrast Clinical history: Trauma Comparison: None Technique: Spiral CT of the abdomen and pelvis done with IV contrast Findings: Chest: Distal vascular structures are in tact. No mediastinal hematoma is seen. Heart size is within normal limits. No pericardial effusion. No focal lung injury. No effusion or pne umothorax. Mild dependent atelectasis. Abdomen and pelvis: No evidence for hepa tic or splenic injury. Adrenals, pancreas and kidneys are within normal limits. Normal caliber aorta with patent mesenteric vasculature. No free air or free fluid is seen. No mesenteric hematoma. Small retroperitoneal hemorrhage related to compression fracture of T12. Skeletal structures: Dedicated spinal re constructions are obtained and interpreted separately. Nondisplaced fracture of the right 12th rib posteriorly. Otherwise, no acute chest wall fracture is seen. There is a comminuted fracture of the ri ght sacral ala involving multiple neural foramina. Presacral hemorrhage, and hemorrhage along the right internal iliac vasculature. Comminuted fractures of the ri ght superior pubic rami, with the superi or pubic ramus fracture involving the pubic root. Fracture of the right ischial spine. The re is a subtle nondisplaced transverse acetabular fracture on the right. No definite acetabular fracture on the left. No pubic symphysis or SI joint diastases. Bone fragment from the left superior justine tabular consistent with a previous rectus femoris avulsion injury. Procedure Note Rizwan Cunningham MBBS - 06/15/2022Form atting of this note might be different from the original. CT chest, abdomen and pelvis with contra st Clinical history: Trauma Comparison: None Technique: Spiral CT of the abdomen and pelvis done with IV contrast Findings: Chest: Distal vascular structures are in tact. No mediastinal hematoma is seen. Heart size is within normal limits. No pericardial effusion. No focal lung injury. No effusion or pne umothorax. Mild dependent atelectasis. Abdomen and pelvis: No evidence for hepa tic or splenic injury. Adrenals, pancreas and kidneys are within normal limits. Normal caliber aorta with patent mesenteric vasculature. No free air or free fluid is seen. No mesenteric hematoma. Small retroperitoneal hemorrhage related to compression fracture of T12. Skeletal structures: Dedicated spinal re constructions are obtained and interpreted separately. Nondisplaced fracture of the right 12th rib posteriorly. Otherwise, no acute chest wall fracture is seen. There is a comminuted fracture of the ri ght sacral ala involving multiple neural foramina. Presacral hemorrhage, and hemorrhage along the right internal iliac vasculature. Comminuted fractures of the right superior pubic rami, with the superior pubic moreno s fracture involving the pubic root. Fracture of the right ischial spine. The re is a subtle nondisplaced transverse acetabular fracture on the right. No definite acetabular fracture on the left. No pubic symphysis or SI joint diastases. Bone fragment from the left superior justine tabular consistent with a previous rectus femoris avulsion injury. IMPRESSION Impression: 1. Nondisplaced fracture of the right 12 th rib posteriorly. Otherwise, no acute traumatic abnormalities in the chest. 2. Multiple pelvic fractures, including comminuted fracture of the right sacral ala, right superior and inferior pubic rami fractures, fracture of the right ischial spine, and transverse right acetabular fracture. Presacral hemorrhage, and hemorrhage roger ng the right pelvic sidewall, without evidence for active extravasation. 3. Please see dedicated spinal reconstru ctions for T12 and lumbar spine fractures. Reading Radiologist: Rizwan Cunningham Kingston Castañeda MD CT BODY CT SPINE CERVICAL NO IV CON (06/15/2022 7:52 PM CDT) Anatomical Region Laterality Modality Cervical Spine Computed Tomography Specimen (Source) Anatomical Collection Method Collection Time Re ceived Time Location / / Volume Laterality 06/15/2022 7:54 PM CDT Impressions 06/15/2022 8:40 PM CDT Impression: ?? 1. No fracture or subluxation of the cer vical vertebrae. 2. No significant spinal canal or neural foraminal stenosis. 3. Suspected [place] syndrome on the left. Reading Radiologist: Stephany Granda 06/15/2022 8:40 PM CDT Indication: Trauma (STAB) ??. Comparison: ??none Technique: Using multidetector thin asia imation helical acquisition technique, axial, coronal and sagittal reconstructed CT images were obtained through the cervical spine without intravenous contrast. Images were reviewed in bone and soft ti ssue windows. Dose: Total DLP = 243.2 mGy.cm. ?? Findings: ??The lateral masses of C1 ade ear normally aligned on C2. The normal cervical lordotic curvature is preserved. Alignment of the cervical spine appears intact. There is no evidence of fracture or significant prevertebral soft tissue swelling. There is no significant disc space narrowing at any level. Findings on a level by level basis are a s follows: C2-3: ??The spinal canal and neural fora samantha bilaterally are normal. C3-4: ??The spinal canal and neural fora samantha bilaterally are normal. C4-5: ??The spinal canal and neural fora samantha bilaterally are normal. C5-6: ??The spinal canal and neural fora samantha bilaterally are normal. C6-7: ??The spinal canal and neural fora samantha bilaterally are normal. C7-T1: The spinal canal and neural jose manuel dorothy bilaterally are normal. No abnormality of the visualized paraspi nous tissues is noted. Suspected [place] syndrome on left. Procedure Note Stephany Granda MD - 06/16/2022 Indication: Trauma (STAB) . Comparison: none Technique: Using multidetector thin asia imation helical acquisition technique, axial, coronal and sagittal reconstructed CT images were obtained through the cervical spine without intravenous contrast. Images were reviewed in bone and soft tissue wi ndows. Dose: Total DLP = 243.2 mGy.cm. Findings: The lateral masses of C1 appea r normally aligned on C2. The normal cervical lordotic curvature is preserved. Alignment of the cervical spine appears intact. There is no evidence of fracture or significant prevertebral soft tissue swelling. There is no significant disc space narrowing at any level. Findings on a level by level basis are a s follows: C2-3: The spinal canal and neural forami na bilaterally are normal. C3-4: The spinal canal and neural forami na bilaterally are normal. C4-5: The spinal canal and neural forami na bilaterally are normal. C5-6: The spinal canal and neural forami na bilaterally are normal. C6-7: The spinal canal and neural forami na bilaterally are normal. C7-T1: The spinal canal and neural jose manuel dorothy bilaterally are normal. No abnormality of the visualized paraspi nous tissues is noted. Suspected [place] syndrome on left. IMPRESSION Impression: 1. No fracture or subluxation of the cer vical vertebrae. 2. No significant spinal canal or neural foraminal stenosis. 3. Suspected [place] syndrome on the left. Reading Radiologist: Stephany Granda Kingston Castañeda MD CT NEURO CT HEAD NO IV CONTRAST (06/15/2022 7:52 PM CDT) Anatomical Region Laterality Modality Skull Computed Tomography Specimen (Source) Anatomical Collection Method Collection Time Re ceived Time Location / / Volume Laterality 06/15/2022 7:51 PM CDT Impressions 06/15/2022 8:37 PM CDT Impression: No acute intracranial pathology. Catherine Traumatic Brain Injury Scale: D iffuse Injury 1 CATHERINE DIAGNOSTIC CATEGORIES OF ABNORM ALITIES VISUALIZED ON CT SCANNING FOR TRAUMATIC BRAIN INJURY: Diffuse Injury 1: No visible intracrania l pathology seen on CT scan. Diffuse Injury 2: Cisterns are present w ith shift 0-5 mm and/or lesion densities present. No high or mixed density lesion >25ml. May include bone fragments and foreign bodies. Diffuse Injury 3 (swelling): Cisterns co mpressed or absent with shift 0-5mm. No high or mixed density lesion > 25ml. ? Diffuse Injury 4 (shift): Shift > 5mm. N o high or mixed density lesion > 25ml. Evacuated mass lesion: Any surgically ev acuated lesion. ?? Non evacuated mass lesion: High or mixed -density lesion > 25ml. Not surgically evacuated. Reading Radiologist: Stephany Granda Narrative 06/15/2022 8:[address] without contrast Indication: Trauma (STAB) ??. Comparison: none Technique: Axial thin section CT images through the brain were obtained from the base of the skull through the vertex without intravenous contrast and reviewed in brain, bone and subdural windows. Dose: Total DLP = 1355.4 mGy.cm. Findings: There is no evidence of intrac ranial hemorrhage, mass effect, midline shift or abnormal extraaxial fluid collection. The ventricles do not appear enlarged out of proportion to the cerebral sul ci. Castañeda-white differentiation is intact throughout both cerebral hemispheres. The bony calvarium and the bones of the skull base appear normal. Incidental noted prominent left styloid process, which can be seen in [place] syndrome. The visualized portions of the paranasal sinuses a nd the mastoid air cells are clear. Revi ew of visualized dentition does not reveal significant periapical dental disease. Procedure Note Stephany Granda MD - 06/15/[address] without contrast Indication: Trauma (STAB) . Comparison: none Technique: Axial thin section CT images through the brain were obtained from the base of the skull through the vertex without intravenous contrast and reviewed in brain, bone and subdural windows. Dose: Total DLP = 1355.4 mGy.cm. Findings: There is no evidence of intrac ranial hemorrhage, mass effect, midline shift or abnormal extraaxial fluid collection. The ventricles do not appear enlarged out of proportion to the cerebral sulci. Castañeda-white differentiation is intact throughout bot h cerebral hemispheres. The bony calvarium and the bones of the skull base appear normal. Incidental noted prominent left styloid process, which can be seen in [place] syndrome. The visualized portions of the paranasal sinuses and the mastoid air cells are clear. Review of v isualized dentition does not reveal significant periapical dental disease. IMPRESSION Impression: No acute intracranial pathol ogy. Catherine Traumatic Brain Injury Scale: D iffuse Injury 1 CATHERINE DIAGNOSTIC CATEGORIES OF ABNORM ALITIES VISUALIZED ON CT SCANNING FOR TRAUMATIC BRAIN INJURY: Diffuse Injury 1: No visible intracrania l pathology seen on CT scan. Diffuse Injury 2: Cisterns are present w ith shift 0-5 mm and/or lesion densities present. No high or mixed density lesion >25ml. May include bone fragments and foreign bodies. Diffuse Injury 3 (swelling): Cisterns co mpressed or absent with shift 0-5mm. No high or mixed density lesion > 25ml. Diffuse Injury 4 (shift): Shift > 5mm. N o high or mixed density lesion > 25ml. Evacuated mass lesion: Any surgically ev acuated lesion. Non evacuated mass lesion: High or mixed -density lesion > 25ml. Not surgically evacuated. Reading Radiologist: Stephany Granda Kingston Castañeda MD CT NEURO XR CHEST 1 VIEW AP OR PA* (06/15/2022 7:33 PM CDT) Anatomical Region Laterality Modality Chest Computed Radiography Specimen (Source) Anatomical Collection Method Collection Time Re ceived Time Location / / Volume Laterality 06/15/2022 7:48 PM CDT Impressions 06/15/2022 7:49 PM CDT Impression: No acute abnormality. Reading Radiologist: Rizwan Cunningham Narrative 06/15/2022 7:49 PM CDT Indication: ??STAB Patient ?? Comparison: None Findings: Heart size is within normal li mits for technique. Lungs are clear. No effusion or pneumothorax. No acute chest wall fracture is seen. Procedure Note Rizwan Cunningham MBBS - 06/15/2022Form atting of this note might be different from the original. Indication: STAB Patient Comparison: None Findings: Heart size is within normal li mits for technique. Lungs are clear. No effusion or pneumothorax. No acute chest wall fracture is seen. IMPRESSION Impression: No acute abnormality. Reading Radiologist: Rizwan Cunningham Gideon Dyer MD X-RAY EXTRA TUBE - CASTAÑEDA (06/15/2022 7:20 PM CDT) athologist Signature CASTAÑEDA TUBE Stored [facility] Comment: Castañeda top (Sodium flouride) tube s are stored in the lab for 3 days from the collection date. Specimen Anatomical Collection Method Collection Time Receive d Time (Source) Location / / Volume Laterality Blood 06/15/2022 7:20 PM 2 7:31 CDT PM CDT Kingston Castañeda MD LABORATORY Performing Organization Address City/[facility]/ZIP Code Phon e Number [facility] [place] [address] HS TROPONIN (06/15/2022 7:20 PM CDT) athologist Signature HS Troponin I 4 <=34 ng/L [facility] Specimen Anatomical Collection Method Collection Time Receive d Time (Source) Location / / Volume Laterality Blood 06/15/2022 7:20 PM 2 7:41 CDT PM CDT Narrative [facility] - 06/15/2022 8:11 PM CDT First Occurrence of the Troponin order i s to be drawn Stat by Nursing staff on the unit. Gideon Dyer MD LABORATORY Performing Organization Address City/State/ZIP Code Phon e Number [facility] [place] [address] (ABNORMAL) ED CHEMISTRY LABS(NA,K,CL,CO2,GLU,CREAT,CA-IONIZED,ANION GAP) (06/15/2022 7:20 PM CDT) Analysis Performed At Patho logist Time Signature Sodium 140 135 - 148 [facility] mEq/L Chloride 109 (H) 92 - 108 [facility] mEq/L AnGap 8 8 - 16 [facility] mEq/L Glucose 186 (H) 70 - 100 [facility] mg/dL ICA, Actual 4.44 4.40 - [facility] 5.20 mg/dL ICA, pH 4.28 (L) 4.40 - [facility] Corrected 5.20 mg/dL Creatinine 1.00 0.70 - [facility] 1.25 mg/dL BICARB 24 22 - 26 [facility] mEq/L eGFR, High 105 >=60 [facility] ml/min/1.7 3m2 Comment: Calculated using CKD-EPI equati on eGFR, Low 90 >=60 ml/min/1.73m2 [facility] Comment: Calculated using CKD-EPI equati on Potassium 3.6 3.5 - 5.3 mEq/L [facility] Specimen Anatomical Collection Method Collection Time Receive d Time (Source) Location / / Volume Laterality Blood 06/15/2022 7:20 PM 7:30 CDT PM CDT Gideon Dyer MD LABORATORY Performing Organization Address City/State/ZIP Code Phon e Number [facility] [place] [address] (ABNORMAL) CBC WITH PLTS/AUTO DIFF (06/15/2022 7:20 PM CDT) Patholo gist Method Time Signature WBC 14.21 (H) 4.00 - [facility] 10.00 k/cmm RBC 4.65 4.60 - [facility] 6.00 m/cmm Hgb 13.0 (L) 13.1 - [facility] 17.5 g/dL Hematocrit 39.7 (L) 40.0 - [facility] 51.0 % MCV 85.4 80.0 - [facility] 100.0 fL MCH 28.0 25.0 - [facility] 32.0 pg MCHC 32.7 31.0 - [facility] 36.0 g/dL RDW 13.2 11.5 - [facility] 14.5 % Plt 294 150 - 400 [facility] k/cmm MPV 10.6 6.5 - 12.5 [facility] fL Automated Abs 10.31 (H) 1.70 - [facility] Neutrophil 6.50 k/cmm Comment: Preliminary ANC, Final Result t o Follow Abs Immature Granulocyte 0.26 (H) 0.00 - 0.09 k/cmm [facility] Comment: The Immature Granulocyte Absolu te count contains metamyelocytes and myelocytes. Abs Neutrophil 10.31 (H) 1.70 - 6.50 k/cmm [facility] B Abs Lymphocyte 2.74 0.80 - 4.00 k/cmm [facility] B Abs Monocyte 0.67 0.20 - 1.00 k/cmm [facility] Abs Eosinophil 0.20 0.00 - 0.60 k/cmm [facility] B Abs Basophil 0.03 0.00 - 0.20 k/cmm [facility] Specimen Anatomical Collection Method Collection Time Receive d Time (Source) Location / / Volume Laterality Blood 06/15/2022 7:20 PM 2 7:41 CDT PM CDT Gideon Dyer MD LABORATORY Performing Organization Address City/State/ZIP Code Phon e Number [facility] [place] [address] ED HEMOGLOBIN TOTAL (ED ONLY) (06/15/2022 7:20 PM CDT) P athologist Signature Hgb 13.7 13.1 - 17.5 [facility] g/dL Specimen Anatomical Collection Method Collection Time Receive d Time (Source) Location / / Volume Laterality Blood 06/15/2022 7:20 PM 2 7:30 CDT PM CDT Gideon Dyer MD LABORATORY Performing Organization Address City/State/ZIP Code Phon e Number [facility] [place] [address] PRECAUTIONARY TUBE (06/15/2022 7:20 PM CDT) Patholo gist Method Time Signature Prec Tube Precautionary [facility] Blood Bank Specimen Received. Specimen Anatomical Collection Method Collection Time Receive d Time (Source) Location / / Volume Laterality Blood 06/15/2022 7:20 PM 2 7:43 CDT PM CDT Gideon Dyer MD LAB TRANSFUSION SERVICES Performing Organization Address City/[facility]/ZIP Code Phon e Number [facility] [place] [address] BLOOD GASES (06/15/2022 7:20 PM CDT) athologist Signature PH Anish 7.33 7.32 - 7.42 [facility] PCO2 Anish 46 41 - 51 [facility] mmHG PO2 Anish 35 25 - 40 [facility] mmHG Bicarb Anish 24 24 - 28 [facility] mEq/L O2 Sat Anish 62 % [facility] Base Exc Anish -2.9 -10.0 - 2.0 [facility] mEq/L Specimen Anatomical Collection Method Collection Time Receive d Time (Source) Location / / Volume Laterality Blood Venous 06/15/2022 7:20 PM 2 7:30 CDT PM CDT Gideon Dyer MD LABORATORY Performing Organization Address City/[facility]/ZIP Code Phon e Number [facility] [place] [address] (ABNORMAL) FIBRINOGEN (06/15/2022 7:20 PM CDT) athologist Signature Fibrinogen 199 (L) 200 - 400 [facility] mg/dL Specimen Anatomical Collection Method Collection Time Receive d Time (Source) Location / / Volume Laterality Blood 06/15/2022 7:20 PM 2 7:41 CDT PM CDT Gideon Dyer MD LABORATORY Performing Organization Address City/[facility]/ZIP Code Phon e Number [facility] [place] [address] (ABNORMAL) PTT (APTT) (06/15/2022 7:20 PM CDT) athologist Signature APTT 21.4 (L) 25.0 - 37.0 [facility] sec Specimen Anatomical Collection Method Collection Time Receive d Time (Source) Location / / Volume Laterality Blood 06/15/2022 7:20 PM 2 7:41 CDT PM CDT Gideon Dyer MD LABORATORY Performing Organization Address City/State/ZIP Code Phon e Number [facility] [place] [address] ED US CRITICAL CARE (06/15/2022 7:16 PM CDT) Anatomical Region Laterality Modality Ultrasound Specimen (Source) Anatomical Location Collection Method / Collectio n Time Received Time / Laterality Volume Narrative 06/15/2022 8:11 PM CDT ED Trauma eFAST Ultrasound Indications: Suspicion of Abdomen Fluid/ Blood, Suspicion of Pneumothorax/Hemothorax, and Other gener al symptoms and signs Window: Cardiac Window, Heptorenal Windo w, Perisplenic Window, Pelvic Window, and Thoracic Window Findings: No Pericardial Effusion identi fied, No Free Intraperitoneal Fluid identified, No Pleural Effusion id entified, and Lung Sliding Present Bilaterally Impression: No Pericardial Effusion iden tified, No Free Intraperitoneal Fluid identified, No Pleural Effusion id entified, and No Pneumothorax Identified Zo Huynh MD, 06/15/2022 7:31 P M ED Attending Ultrasound Note: I have personally reviewed the image(s) and initial interpretation, and I agree with the findings as documented. Kingston Castañeda MD, 06/15/2022 8:11 PM Gideon Dyer MD ED ULT from Last 3 Months Insurance Payer Benefit Plan / Subscriber ID Effective Phone Address T ype Group Dates [place] [id number] 2022-Pres [phone] [facility] [address] [place] Fee For MEDICAL ent [phone] [place] [address] Advance Directives For more information, please contact: [phone] Latest Code Status on FileFull Code Date Activated Date Inactivated Comments 06/16/2022 1:25 AM 06/27/2022 9:04 PM Question Answer Comments Does the Patient have preferences regarding life sustaining No measures (these options only apply when the patient has a pulse): Discussed Code Status With Whom? 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
--- OUTSIDE RECORDS SUMMARY | 2022-07-17 10:12 | XMS_ITS | Encounter Summary ---
:1975 Author Organization [facility] Address [address] [place] [address] Phone Care Team Providers Name Role Phone Unavailable Primary Care Provider Unavailable Reason for Visit Reason Comments Follow-up Encounter Details Date Type Department Care Team Description 07/08/2022 Office Visit Clinic & Specialty Teofilo Brown MD [address] [place] [phone] Pelvic ring fracture, closed, subsequent encounter () (Primary Dx); [facility], [facility] [address] [place] [phone] Fracture of right wrist Clinic [address] [place] [address] Social History Tobacco Use Types Packs/Day Years Used Date Smoking Tobacco: Never Smokeless Tobacco: Never Alcohol Use Standard Drinks/Week Comments Not Asked 0 (1 standard drink = 0.6 oz pure alcoho l) Sex Assigned at Date Recorded Not on file COVID-19 Exposure Response Date Recorded In the last 10 days, have you been in contact with No / Unsu re 07/08/2022 8:12 AM CDT someone who was confirmed or suspected to have Coronavirus/COVID-19? documented as of this encounter Patient Instructions Patient InstructionsNidhi Ochoa RN - 07/08/2022 8:15 AM CDT NO weight bearing to bilateral lower extremities. OK to pivot transfer on left leg for transfers ONLY. NO heavy lifting or weight bearing to right arm. Keep cast to right arm clean and dry. Take Tylenol and Ibuprofen as directed for pain. RX for Tramadol has been provided to use at bedtime as needed for the next week. Wean down on use of Gabapentin as discussed by taking twice daily for a week, then just at bedtime and discontinue when no longer needed. US will be done to day to check for any blood clots in your legs. Continue with Xarelto per medicine clinic providers. [employer] (Closed) application provided through February/2023. Return to the orthopedic clinic for follow up with Dr. Brown in 4 weeks with new x-rays at that time. Cast will be removed prior to x-rays. documented in this encounter Progress Notes Miri Matthew MD - 07/08/2022 8:15 AM CDT Images from the original note were not included. [facility] [place] [address] Orthopedic Clinic Visit DATE OF VISIT: 07/08/2022 INJURY DETAILS: Fall 20-30 feet from scaffolding on 06/15/2022 DIAGNOSES: Comminuted right vertical shear sacral fracture status post right SI joint CRPP on 06/18, revised to ORIF right SI joint on 06/24 Right inferior pubic rami fracture with high pubic root fracture Right nondisplaced distal radius fracture HISTORY: Bertram Moran is a 46 y.o. male approximately 2 weeks status post R SI joint ORIF on 06/24/22 for a comminuted right vertical shear sacral fracture. Overall patient feels well, denies any pain to the pelvis or posteriorly, endorses some pain in the right calf. 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 Denies numbness/tingling, denies fever/chills, denies new/worsening symptoms. States he has been compliant with nonweightbearing restrictions. On exam, he has a well- healing incision over the right buttock without any surrounding erythema or evidence of infection. Eileen removed today over percutaneous incision sites about lateral right hip, no purulence or drainage. CMS intact distally, able to range hip and knee actively without pain. Right short arm cast in place, +AIN/ PIN/Uln, sensation intact. IMAGING: AP/inlet/outlet of pelvis show healing fractures with maintained alignment and hardware position, XR right wrist shows healing distal radius fracture with maintained alignment PLAN: This is a 46 y.o. male approximately 2 weeks status post ORIF right SI joint on 06/24/2022 -Continue NWB BLE, pivot transfers on LLE only -F/u bilateral duplex ultrasound -continue AC as prescribed and follow up w/ PCP -has f/u for IVC filter on 07/22 -patient requesting pain medication, rx for 1 week of tramadol given but discussed weaning -handicap parking pass application filled out -Follow up in 4 weeks with repeat XR documented in this encounter Plan of Treatment Upcoming Encounters Date Type Specialty Care Team Description 07/22/2022 Appointment RADIOLOGY Roosevelt Brown MD [address] [place] [phone] Scheduled 1, [facility] [address] [place] [phone] 07/22/2022 Office Visit ORTHOPEDICS Miri Matthew MD [address] [place] [phone] Scheduled 1, [facility] [address] [place] [address] 07/22/2022 Office Visit Interventional Radiology Provider, Int Ra d Scheduled 1, [facility] [address] [place] [address] 07/25/2022 Appointment RADIOLOGY Patrice Hollins MD [address] [place] [phone] Scheduled 1, [facility] [address] [place] [address] 07/25/2022 Office Visit NEUROSURGERY Briana Kaplan, PA -C [address] [place] [phone] Scheduled 1, [facility] [address] [place] [address] 07/25/2022 Appointment PHYSICAL MEDICINE AND REHAB Lore Aguilar, PT Scheduled [address] [place] [address] (Wo rk) 08/05/2022 Appointment ORTHOPEDICS 1, [facility] Scheduled [address] [place] [address] 08/05/2022 Appointment RADIOLOGY Roosevelt Brown MD [address] [place] [phone] Scheduled 1, [facility] [address] [place] [address] 08/05/2022 Appointment RADIOLOGY Roosevelt Brown MD [address] [place] [address] Scheduled 1, [facility] [address] [place] [address] 08/05/2022 Office Visit ORTHOPEDICS Roosevelt Brown MD [address] [place] [phone] Scheduled 1, [facility] [address] [place] [address] Scheduled Orders Name Type Priority Associated Diagnoses Order S chedule XR PELVIS 3 V AP + Imaging Routine Pelvic ring fracture, Expected: 08/05/2022 INLET/OUTLET closed, subsequent (Approxim ate), encounter () Expires: 01/2023 XR WRIST RIGHT 3+ Imaging Routine Fracture of right wrist Expected: 08/05/2022 PA/OB/LAT/JENS* (Approximate) , Expires: 2022 documented as of this encounter Procedures Procedure Name Priority Date/Time Associated Diagnosis Comme nts ULT VENOUS LOWER TERRENCE 07/08/2022 11:53 AM Pelvic ring Resu lts for this EXT BILAT CDT fracture, closed, procedure are in subsequent encounter the res ults () section. documented in this encounter Results ULT VENOUS LOWER EXTREMITY BILAT (07/08/2022 11:53 AM CDT) Anatomical Region Laterality Modality Upper Leg Ultrasound [...] Radiologist: Sarthak Us Reading Resident: Donavon Chang Narrative 07/08/2022 12:14 PM CDT Indication: nonambulatory due [...] Resident: Donavon Chang Miri Matthew MD ULT documented in this encounter Visit Diagnoses Diagnosis Pelvic ring fracture, closed, subsequent encounter () - Primary Fracture of right wrist Unspecified closed fracture of carpal bobby ne documented in this encounter
--- OUTSIDE RECORDS SUMMARY | 2022-07-17 10:12 | XMS_ITS | Encounter Summary ---
:1975 Author Organization [facility] Address [address] [place] [phone] Phone Care Team Providers Name Role Phone Unavailable Primary Care Provider Unavailable Encounter Details Date Type Department Care Team Description 07/08/2022 Travel Social History Tobacco Use Types Packs/Day Years [...] have Coronavirus/COVID-19? documented as of this encounter Plan of Treatment Upcoming Encounters Date Type Specialty Care Team Description 07/22/2022 Appointment RADIOLOGY Roosevelt Brown MD [address] [place] [address] Scheduled 1, [facility] [address] [place] [address] 07/22/2022 Office Visit ORTHOPEDICS Miri Matthew MD [address] [place], [place] Scheduled 1, [facility] [address] [place] [address] 07/22/2022 Office Visit Interventional Radiology Provider, Int Ra d Scheduled 1, [facility] [address] [place] [address] 07/25/2022 Appointment RADIOLOGY Patrice Hollins MD [address] [address] Scheduled 1, [facility] [address] [place] [address] 07/25/2022 Office Visit NEUROSURGERY Eusebio, Briana Reyes, PA -C [address] [place] [phone] Scheduled 1, [facility] [address] [place] [address] 07/25/2022 Appointment PHYSICAL MEDICINE AND REHAB Lore Aguilar, PT Scheduled [address] [place] [phone] (Wo rk) 08/05/2022 Appointment ORTHOPEDICS 1, [facility] Scheduled [address] [place] [address] 08/05/2022 Appointment RADIOLOGY Roosevelt Brown MD [address] [place] [address] Scheduled 1, [facility] [address] [place] [address] 08/05/2022 Appointment RADIOLOGY Roosevelt Brown MD [address] [place] [address] Scheduled 1, [facility] [address] [place] [address] 08/05/2022 Office Visit ORTHOPEDICS Roosevelt Brown MD [address] [place] [phone] Scheduled 1, [facility] [address] [place] [address] documented as of this encounter Visit Diagnoses Not on filedocumented in this encounter
--- OUTSIDE RECORDS SUMMARY | 2022-07-17 10:12 | XMS_ITS | Encounter Summary ---
:1975 Author Organization [facility] Address [address] [place] [address] Phone Care Team Providers Name Role Phone Lore Au PT Unavailable Reason for Visit Reason Comments Pain Encounter Details Date Type Department Care Team Description 07/13/2022 Emergency [facility] [place] Emergency Ambur, Mariano, Radicular pain of right Department MD lower extremity [address] [place], [place] [address] [place], [place] [phone] Social History Tobacco Use Types Packs/Day Years Used Date Smoking Tobacco: Never Smokeless Tobacco: Never Alcohol Use Standard Drinks/Week Comments Not Asked 0 (1 standard drink = 0.6 oz pure alcoho l) Sex Assigned at Date Recorded Not on file COVID-19 Exposure Response Date Recorded In the last 10 days, have you been in contact with No / Unsu re 07/13/2022 9:46 AM CDT someone who was confirmed or suspected to have Coronavirus/COVID-19? documented as of this encounter Last Filed Vital Signs Vital Sign Reading Time Taken Comments Blood Pressure 165/104 07/13/2022 9:46 AM CDT Pulse 106 07/13/2022 11:14 AM CDT Temperature 36.4 ??C (97.5 ??F) 07/13/2022 9:46 AM CDT Respiratory Rate 18 07/13/2022 9:46 AM CDT Oxygen Saturation 97% 07/13/2022 11:14 AM CDT Inhaled Oxygen Concentration - - Weight - - Height - - Body Mass Index - - documented in this encounter Discharge Instructions Discharge InstructionsChSedrick blanca PA-C - 07/13/2022 11:06 AM CDT Bertram Moran, You were in the ER for right leg pain. This appears to be a nerve type pain. The gabapentin you're currently taking is designed to help with nerve pain. You've also been prescribed a lidocaine ointmentyou can apply as needed twice daily to the affected skin of your right leg. Follow up with neurosurgery and your primary clinic to discuss your on-going care. Come back to the ER if you experience any new or worsening symptoms. AttachmentsThe following attachments cannot be sent through Care Everywhere. Radiculopathy Discharge Instructions (French)documented in this encounter Medications at Time of Discharge Medication Sig Dispensed Refills Start Date End Date lidocaine 5 % Apply to affected 30 g 0 07/13/2022 externally ointment areas up to 3 times daily. Aplicar en las ??reas afectadas hasta 3 veces al d??a. acetaminophen 325 mg Take 3 tablets 120 tablet 0 06/26/2022 oral tablet (975 mg) by mouth 3 times daily. hydrOXYzine pamoate Take 1-2 capsules 120 capsule 0 06/26/20 (VISTARIL) 25 mg oral (25-50 mg) by capsule mouth every 4 hours as needed (pain adjunct (give with opioid)).[place] 1-2 c??psulas (25-50 mg) por v??a oral cada 4 horas seg??n sea necesario (complemento para el dolor (administrar con opioide)). bisacodyl (DULCOLAX) 10 Unwrap and insert 5 suppository 0 mg rectal suppository 1 suppository (10 mg) by Rectal route daily as needed for Constipation.Navi envuelva e inserte 1 supositorio (10 mg) por v??a rectal diariamente seg??n sea necesario para el estre??imiento. cyclobenzaprine Take 1 tablet (5 90 tablet 0 06/26/2022 (FLEXERIL) 5 mg oral mg) by mouth 3 TABS times daily. [place] 1 tableta (5 mg) por la boca 3 veces al mandy. polyethylene glycol Take 17 g by mouth 510 g 0 06/26/20 22 3350 (MIRALAX/GLUCOLAX) twice daily.Take 1 17 gm/scoop oral powder capful to 17 gm cuate mixed with full glass of water twice every day as directed.[place] 17 g por v??a oral dos veces al d??a. [place] 1 tap??n hasta la minerva de 17 g mezclado con un vaso lleno de agua dos veces al d??a seg??n las indicaciones. sennosides-docusate Take 1 tablet by 40 each 0 06/26/2022 sodium (STOOL mouth twice daily. SOFTENER/LAXATIVE) [place] 1 tableta por 8.6-50 mg oral tablet la boca 2 veces al mandy. GABApentin (NEURONTIN) Take 1 capsule 120 capsule 0 06/26/20 400 mg oral capsule (400 mg) by mouth 3 times daily. [place] 1 capsula (400 mg) por la boca 3 veces al mandy. tamsulosin (FLOMAX) 0.4 Take 1 capsule 10 capsule 0 06/27/20 22 mg oral capsule (0.4 mg) by mouth daily after meal.Take 30 minutes after same meal each day. Do NOT crush or chew.[place] 1 c??psula (0,4 mg) por v??a oral todos los d??as despu??s de ethan comida. [place] 30 minutos despu??s de la misma comida todos los d??as. No triture ni mastique. melatonin 3 mg oral Take 1 tablet (3 20 tablet 0 06/26/2022 tablet mg) by mouth at bedtime as needed for Sleep. [place] 1 tableta (3 mg) por la boca a la hora de acostrase. sodium chloride 1 gm Take 2 tablets (2 60 tablet 0 06/26/20 22 oral TABS g) by mouth 4 times daily. TOME DOS TABLETAS ORALMENTE 4 VECES AL MANDY rivaroxaban (XARELTO) Take 1 tablet (20 69 tablet 0 022 20 mg oral mg) by mouth daily tabletIndications: Deep with evening meal. Vein Thrombosis Indications: Blood Clot in a Deep Vein.([place] 1 tableta (20 mg) por v??a oral diariamente con la evonne. 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 rivaroxaban (XARELTO) Take 1 tablet (15 42 tablet 0 022 07/20/2022 15 mg oral mg) by mouth twice tabletIndications: Deep daily with meals Vein Thrombosis for 21 days. Indications: Blood Clot in a Deep Vein. [place] 1 tableta (15 mg) por v??a oral dos veces al d??a con las comidas jennifer 21 d??as. 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 metFORMIN (GLUCOPHAGE) Take 1 tablet 0 1000 mg oral (1,000 mg) by tabletIndications: Type mouth twice daily 2 Diabetes Mellitus with meals. Indications: Type 2 Diabetes glipiZIDE XL (GLUCOTROL Take 1 tablet (10 0 XL) 10 mg oral extended mg) by mouth release daily. tabletIndications: Type Indications: Type 2 Diabetes Mellitus 2 Diabetes traMADol (ULTRAM) 50 mg Take 1 tablet (50 7 tablet 0 07/0807/15/2022 oral TABS mg) by mouth at bedtime as needed for Pain. * TOME ETHAN TABLETA ORALMENTE ANTES DE ACOSTARSE CLEMENTE SEA NECESARIO PARA EL DOLOR documented as of this encounter ED Notes Sedrick Mcbride PA-C - 07/13/2022 10:09 AM CDT ED Provider Note Bertram Moran : 1975 Sex: male Patient Arrival Date and Time: 07/13/2022 9:42 AM CHIEF COMPLAINT Pain HPI Bertram Moran is a 46 y.o. male with pmhx of HLD, DM, T12 and L1 compression fractures. L2,3and 5 TP fracturs, had an ORIF of right SI joint, who presents for pain. He states right leg pain that is ongoing since was admitted for pelvic ring fracture. This pain is superficial burning/stinging,flares up periodically. No accompanying f/c/s, n/v/d, bowel/bladder changes. No new swelling or redness of leg. States was doing well with oxycodone. Transitioned to tramadol without as much relief. Follows with neurosurgery and orthopedics for his injuries. Is taking gabapentin for neuropathic pain. No new saddle anesthesia or lower extremity weakness. Is currently non-weight bear and non-ambulatoryas part of his recovery guidance.No chest pain or dyspnea. PAST MEDICAL HISTORY No past medical history on file. SOCIAL HISTORY Social History Occupational History Not on file Tobacco Use Smoking status: Never Smokeless tobacco: Never Substance and Sexual Activity Alcohol use: Not on file Drug use: Not on file Sexual activity: Not on file FAMILY HISTORY No family history on file. CURRENT MEDICATIONS Discharge Medication List as of 07/13/2022 11:12 AM CONTINUE these medications which have CHANGED Details lidocaine 5 % externally ointment Disp-30 g, R-0, Apply to skin 5 % 3 times daily., Normal CONTINUE these medications which have NOT CHANGED Details traMADol (ULTRAM) 50 mg oral TABS Take 1 tablet (50 mg) by mouth at bedtime as needed for Pain. * TOME ETHAN TABLETA ORALMENTE ANTES DE ACOSTARSE CLEMENTE SEA NECESARIO PARA EL DOLOR, Disp-7 tablet, R-0, Normal acetaminophen 325 mg oral tablet Disp-120 tablet, R-0, Take 3 tablets (975 mg) by mouth 3 times daily., Normal hydrOXYzine pamoate (VISTARIL) 25 mg oral capsule Disp-120 capsule, R-0, Take 1- 2 capsules (25-50 mg) by mouth every 4 hours as needed (pain adjunct (give with opioid)).[place] 1-2 c??psulas (25-50 mg) por v??a oral cada 4 horas seg??n sea necesario (complemento para el dolor (administrar con opioide))., No rmal bisacodyl (DULCOLAX) 10 mg rectal suppository Disp-5 suppository, R-0, Unwrap and insert 1 suppository (10 mg) by Rectal route daily as needed for Constipation.Desenvuelva e inserte 1 supositorio (10mg) por v??a rectal diariamente seg??n sea necesario para el estre??imiento., Normal cyclobenzaprine (FLEXERIL) 5 mg oral TABS Disp-90 tablet, R-0, Take 1 tablet (5 mg) by mouth 3 timesdaily. [place] 1 tableta (5 mg) por la boca 3 veces al mandy., Normal polyethylene glycol 3350 (MIRALAX/GLUCOLAX) 17 gm/scoop oral powder Disp-510 g, R-0, Take 17 g by mouth twice daily.Take 1 capful to 17 gm cuate mixed with full glass of water twice every day as directed.[place] 17 g por v??a oral dos veces al d??a. [place] 1 tap??n hasta la minerva de 17 g mezclado con un vaso lleno de agua d os veces al d??a seg??n las indicaciones., Normal sennosides-docusate sodium (STOOL SOFTENER/LAXATIVE) 8.6-50 mg oral tablet Disp- 40 each, R-0, Take 1tablet by mouth twice daily. [place] 1 tableta por la boca 2 veces al mandy., Normal GABApentin (NEURONTIN) 400 mg oral capsule Disp-120 capsule, R-0, Take 1 capsule (400 mg) by mouth 3times daily. [place] 1 capsula (400 mg) por la boca 3 veces al mandy., Normal tamsulosin (FLOMAX) 0.4 mg oral capsule Disp-10 capsule, R-0, Take 1 capsule (0.4 mg) by mouth dailyafter meal.Take 30 minutes after same meal each day. Do NOT crush or chew.[place] 1 c??psula (0,4 mg) por v??a oral todos los d??as despu??s de ethan comida. [place] 30 minutos despu??s de la misma comida todos los d??as. No triture ni mastique., Normal melatonin 3 mg oral tablet Disp-20 tablet, R-0, Take 1 tablet (3 mg) by mouth at bedtime as needed for Sleep. [place] 1 tableta (3 mg) por la boca a la hora de acostrase., Normal sodium chloride 1 gm oral TABS Disp-60 tablet, R-0, Take 2 tablets (2 g) by mouth 4 times daily. TOME DOS TABLETAS ORALMENTE 4 VECES AL MANDY, Normal !! rivaroxaban (XARELTO) 20 mg oral tablet Disp-69 tablet, R-0, Take 1 tablet (20 mg) by mouth dailywith evening meal. Indications: Blood Clot in a Deep Vein.([place] 1 tableta (20 mg) por v??a oral diariamente con la evonne. 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, Normal !! rivaroxaban (XARELTO) 15 mg oral tablet Disp-42 tablet, R-0, Take 1 tablet (15 mg) by mouth twicedaily with meals for 21 days. Indications: Blood Clot in a Deep Vein. [place] 1 tableta (15 mg) por v??a oral dos veces al d??a con las comidas jennifer 21 d??as. 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, Normal metFORMIN (GLUCOPHAGE) 1000 mg oral tablet Take 1 tablet (1,000 mg) by mouth twice daily with meals.Indications: Type 2 Diabetes, Historical Med glipiZIDE XL (GLUCOTROL XL) 10 mg oral extended release tablet Take 1 tablet (10 mg) by mouth daily.Indications: Type 2 Diabetes, Historical Med !! - Potential duplicate medications found. Please discuss with provider. ALLERGIES No Known Drug Allergies REVIEW OF SYSTEMS 10 pt ros negative except where elsewhere noted. PHYSICAL EXAM Vitals: BP 165/104 (Cuff Location: Right Arm, Patient Position: Sitting) Pulse (!) 106 Temp 36.4??C (97.5 ??F) (Oral) Resp 18 SpO2 97% Physical Exam: General Appearance: Well developed, well nourished, well appearing, non-toxic, non-diaphoretic, no acute distress Skin: Warm. Normal color. Head: Normocephalic, Atraumatic. Eyes: PERRL/EOMI, Conjunctiva Clear. Neck: Supple, Normal ROM Chest and Respiratory: Airway patent. No respiratory distress. Lungs clear to auscultation b/l. Breath sounds equal. Heart: Normal S1 and S2. Regular rhythm, No murmurs. Abdominal: Normal bowel sounds. Abdomen is soft and non-tender. No masses. No guarding. Musculoskeletal: Spontaneously moving all extremities without abnormality. No midline T-L pain. Surgical scars appear well healing w/o erythema/edema/induration/discharge. Right lower extremity with area of lateral calf tenderness to superficial touch, no firmness/edema/ecchymosis/induration/fluctuance or skin changes. Bilateral lower extremities appear warm and well perfused. Right LE with appreciable PT and DP pulses on bedside doppler. There are scabs of right leg from his initial injury which appear well healing. No posterior calf or popliteal ttp/edema. Neurologic: Alert and Interactive, No Focal Defects Mental Status: Normal Affect MEDICATIONS ORDERED (with documentation status as of note signing time, please correlate with the MAR) Medications Before Time of ED Departure - No data to display Orders Before Time of ED Departure - No data to display LABS/Radiology results Labs Reviewed - No data to display No orders to display MEDICAL DECISION MAKING AND PLAN: Bertram Moran is a 46 y.o. male who presents for evaluation of pain. Patient was seen and evaluated by myself upon arrival to the ED. Nursing notes were reviewed and multiple etiologies were considered. Dx, DDx, Assessment and Plan was discussed with Attending Emergency Medicine Physician. Vital signs were reviewed. Presents with continued right lateral leg pain that is superficial, suggestive of radicular type pain. No acute changes since discharge for his pelvic ring fracture. Oxycodone transitioned to tramadol w/o as much relief. Is currently on gabapentin 400 mg TID. Exam is highly reassuring with non-distressed, well- appearing individual who has warm and well perfused lower extremities of normal color and sensation w/o evidence cellulitis or compartment syndrome or focal neurologic deficit. Low suspicion for acute life/limb threatening or neurosurgical emergency. Patient has symptoms persisting the last few weeks. Had considered prescribing gabapentin for nerve type pain, however, patient already on gabapentin. Offered trial lidocaine ointment for additional topical relief. Encouraged to follow-up with primary team to discuss options for pain management. Discharged from ED to home. Patient has close follow-up neurosurgery planned. Discussed RTED precautions. We discussed warning signs that would warrant their return to the ED. Patient is in stable condition. All questions answered. Patient verbalized agreement and understanding of this plan. FINAL CLINICAL IMPRESSION 1. Radicular pain of right lower extremity Sedrick Mcbride PA-C, 07/13/2022 5:17 PM Rosa Maria Naik RN - 07/13/2022 9:47 AM CDT 46 y.o. male to ED with c/o R lower leg pain. Denies any injury but reports he's had this pain ever since his surgery. Has had his pain medications changed, but the pain is still getting worse. Denies fevers. BP 165/104 (Cuff Location: Right Arm, Patient Position: Sitting) Pulse (!) 115 Temp 36.4 ??C (97.5 ??F) (Oral) Resp 18 SpO2 98% documented in this encounter Miscellaneous Notes ED Faculty Note - Mariano Taylor MD - 07/13/2022 9:49 AM CDT ED Faculty Attestation and Note Date of service for this patient was 07/13/2022 9:42 AM Bertram Moran is a 46 y.o. male with the following vital signs: BP 165/104 (Cuff Location: Right Arm, Patient Position: Sitting) Pulse (!) 115 Temp 36.4 ??C (97.5 ??F) (Oral) Resp 18 SpO2 98% FACULTY ATTESTATION IMariano MD, took a HPI and PE independently of the Advanced Practice Provider. See HPI, Physical Exam and/or MDM documentation elements below. CRITICAL CARE Not applicable. RN and ANCILLARY NOTES I have reviewed nursing and ancillary notes, and agree with protocol as initiated. PROCEDURES Please refer to relevant procedures if done EXAM General: Awake, alert, cooperative Head:no gross external signs of trauma, Eyes: Conjugate gaze. ENT: no gross facial asymmetry, trachea midline, no resting stridor Neck: Trachea midline. Cardiovascular: strong radial pulse, warm extremities, RRR Chest/Lungs: Normal WOB Abdomen: Soft, non-distended, NT Extremities: No gross deformity Neurological: GCS 15, no gross focal motor deficits. Skin: Warm. No visible rash on limited exam MEDICAL DECISION MAKING Medical record reviewed in Epic, available Nursing notes, and with the patient (Allergies, Meds, PMH, PSH, social history) Available ED labs, ECG if obtained, and imaging reviewed and interpreted by me in real reviewed and interpreted by me in real time Date of service for this patient was 07/13/2022 9:42 AM is a 46 y.o. male with the following vital signs: BP 165/104 (Cuff Location: Right Arm, Patient Position: Sitting) Pulse (!) 115 Temp 36.4 ??C (97.5 ??F) (Oral) Resp 18 SpO2 98% Summary of patient's presentation, ED course, decision making and disposition plan. Multiple seriousdiagnoses were considered and appropriately evaluated in the context of the history, exam and available data Briefly: 46 y.o. male with right LE radiculopathic pain that has been present since hospital admission where he was treated for T12 and L1 compression fractures. L2,3 and 5 TP fracturs, had an ORIF of right SI join. No fevers or chills. Seen 06/30 with same complaint. No new weakness, numbness, tingling or bowel symptoms. Radiculopathic pain without evidence for infection, new injury, or neurovascularcompromise.DC with gabapentin and close neurosurgery follow up as scheduled on Thursday Scribed for Mariano Taylor MD by Leah Turner Scribe, 07/13/2022 9:49 AM IBrandon Sumanth, MD have reviewed the initial documentation provided by the scribe and affirm thatit is an accurate restatement of my dictated record of services. Signed: Mariano Taylor MD, 09:49 07/13/2022 documented in this encounter Plan of Treatment Upcoming Encounters Date Type Specialty Care Team Description 07/22/2022 Appointment RADIOLOGY Roosevelt Brown MD [address] [place] [id number] Scheduled 1, [facility] [address] [place] [address] 07/22/2022 Office Visit ORTHOPEDICS Miri Matthew MD [address] [place] [address] Scheduled 1, [facility] [address] [place] [address] 07/22/2022 Office Visit Interventional Radiology Provider, Int Ra haq Scheduled 1, [facility] [address] [place] [address] 07/25/2022 Appointment RADIOLOGY Patrice Hollins MD [address] [address] Scheduled 1, [facility] [address] [place] [address] 07/25/2022 Office Visit NEUROSURGERY Briana Kaplan PA -C [address] [place] [phone] Scheduled 1, [facility] [address] [place] [address] 07/25/2022 Appointment PHYSICAL MEDICINE AND REHAB Lore Aguilar, PT Scheduled [address], [place] [address] (Wo rk) 08/05/2022 Appointment ORTHOPEDICS 1, [facility] Scheduled [address] [place] [address] 08/05/2022 Appointment RADIOLOGY Roosevelt Brown MD [address] [place] [address] [phone] Scheduled 1, [facility] [address] [place] [address] 08/05/2022 Appointment RADIOLOGY Roosevelt Brown MD [address] [place] [address] Scheduled 1, [facility] [address] [place] [address] 08/05/2022 Office Visit ORTHOPEDICS Roosevelt Brown MD [address] [place] [address] Scheduled 1, [facility] [address] [place] [address] documented as of this encounter Visit Diagnoses Diagnosis Radicular pain of right lower extremity - Primary Thoracic or lumbosacral neuritis or radi culitis, unspecified documented in this encounter Care Teams Packaging Materials Inspector Relationship Specialty Start Date End Date Lore Au, PT Physical Therapist Physical Therapy 07/09/22 [address] [place] [address] documented as of this encounter
--- OUTSIDE RECORDS SUMMARY | 2022-07-17 10:12 | XMS_ITS | Encounter Summary ---
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 closed, subsequent Clinic [id number] encounter () (Primary [address] Dx) [place], [place] [address] Social History Tobacco Use Types Packs/Day Years Used Date Smoking Tobacco: Never Alcohol Use Standard Drinks/Week Comments [...] Appointment RADIOLOGY Roosevelt Brown MD [address] [place] [phone] Scheduled 1, [facility] [address] [place] [address] 07/22/2022 Office Visit ORTHOPEDICS Miri Matthew MD [address] [place] [address] Scheduled 1, [facility] [address] [place] [address] 07/22/2022 Office Visit Interventional Radiology Provider, Hesham haq Scheduled 1, [facility] [address] [place] [address] 07/25/2022 Appointment RADIOLOGY Patrice Hollins MD [address] [address] Scheduled 1, [facility] [address] [place] [address] 07/25/2022 Office Visit NEUROSURGERY Eusebio, Briana Reyes PA [facility] [address] [place] [address] Scheduled 1, [facility] [address] [place] [address] 07/25/2022 Appointment PHYSICAL MEDICINE AND REHAB Lore Aguilar, PT Scheduled [address] [place] [phone] (Wo rk) 08/05/2022 Appointment ORTHOPEDICS 1, [facility] Scheduled [address] [place] [address] 08/05/2022 Appointment RADIOLOGY Roosevelt Brown MD [address] [place] [address] Scheduled 1, [facility] [address] [place] [address] 08/05/2022 Appointment RADIOLOGY Roosevelt Brown MD [address] [place] [address] Scheduled 1, [facility] [address] [place] [address] 08/05/2022 Office Visit ORTHOPEDICS Roosevelt Brown MD [address] [place] [address] Scheduled 1, [facility] [address] [place] [address] documented as of this encounter Results XR PELVIS 3 V AP + INLET/OUTLET (07/08/2022 8:50 AM CDT) Anatomical Region Laterality Modality Pelvis Digital Radiography [...] Radiologist: Ronal Rouse Roosevelt Brown MD X-RAY documented in this encounter Visit Diagnoses Diagnosis Pelvic ring fracture, closed, subsequent encounter () - Primary Pelvic ring fracture, closed, subsequent encounter () documented in this encounter Care Teams Associate Professor Of Musicology Relationship Specialty Start Date End Date Lore Au, PT Physical Therapist Physical Therapy 07/09/[address] [place] [address] documented as of this encounter
--- OUTSIDE RECORDS SUMMARY | 2022-07-17 10:12 | XMS_ITS | Encounter Summary ---
:1975 Author Organization [facility] Address [address] [place] [address] Phone Care Team Providers Name Role Phone Lore Au PT Unavailable Encounter Details Date Type Department Care Team Description 07/14/2022 Travel Social History Tobacco Use Types Packs/Day [...] Appointment RADIOLOGY Roosevelt Brown MD [address] [place] [phone] Scheduled 1, [place] [address] [place] [address] 07/22/2022 Office Visit ORTHOPEDICS Miri Matthew MD 701 [place], [place] [phone] Scheduled 1, [place] [address] [place] [address] 07/22/2022 Office Visit Interventional Radiology Provider, Hesham haq Scheduled 1, [place] [address] [place] [address] 07/25/2022 Appointment RADIOLOGY Patrice Hollins MD [address] [address] Scheduled 1, [place] [address] [place] [address] 07/25/2022 Office Visit NEUROSURGERY Braina Kaplan PA -C [address] [place] [address] Scheduled 1, [place] [address] [place] [address] 07/25/2022 Appointment PHYSICAL MEDICINE AND REHAB Lore Aguilar PT Scheduled [address] [place] [address] (Wo rk) 08/05/2022 Appointment ORTHOPEDICS 1, [place] Scheduled 1 [place] [address] 08/05/2022 Appointment RADIOLOGY Roosevelt Brown MD [address] [place] [address] Scheduled 1, [place] [address] [place] [address] 08/05/2022 Appointment RADIOLOGY Roosevelt Brown MD [address] [place] [address] Scheduled 1, [place] 1 [place] [address] 08/05/2022 Office Visit ORTHOPEDICS Roosevelt Brown MD [address] [place] [address] Scheduled 1, [place] [address] [place] [address] documented as of this encounter Visit Diagnoses Not on filedocumented in this encounter Care Teams Technology Manager Relationship Specialty Start Date End Date Lore Au, PT Physical Therapist Physical Therapy 07/09/[address] [place] [phone] documented as of this encounter
--- OUTSIDE RECORDS SUMMARY | 2022-07-17 10:12 | XMS_ITS | Encounter Summary ---
:1975 Author Organization [facility] Address [address] [facility] [place] [address] Phone Care Team Providers Name Role Phone Lore Au PT Unavailable Reason for Referral Consult/Test/Treat (Routine) - New Request Specialty Diagnoses / Procedures Referred By Contact Refer red To Contact Pain Management Diagnoses Post-operative pain Danny Rios MD [address] [place], [place] [address] Referral ID Status Reason Start Date Expiration Date Visits V isits Requested Authorized [id number] New Request 07/15/2022 07/16/2023 1 1 Reason for Visit Reason Comments Back Pain Encounter Details Date Type Department Care Team Description 07/14/2022 - Emergency [facility] Emergency Danny Rios MD [address] [place], [place] [phone] Post-operative pain 07/15/2022 Department Areli Mccoy MD [address] [place], [place] [phone] [place] [address] [id number] [place], [place] [address] Social History Tobacco Use Types Packs/Day Years [...] documented in this encounter Discharge Instructions Discharge InstructionsDg Hopper MD - 07/15/2022 6:00 AM CDT Peter por permitirnos cuidar de ti. Hoy hablamos de dolor en la pierna y la cadera derechas: nuestras im??genes no muestran signos de peligro inmediato. Nos hemos puesto en contacto con ortopedistas que adelantar??n bright jeniffer y se reunir??n con usted para evaluar bright dolor continuo. Tambi??n hemos concertado un seguimiento con m??dicos troy cialistas en dolor. Tendr?? ethan receta breve de analg??sicos para llegar a bright pr??xima jeniffer. No hill, conduzca ni opere maquinaria pesada mientras usa bright control del dolor. Si experimenta un nuevo entumecimiento, debilidad, calor en la piel o desarrolla otros s??ntomas preocupantes, regrese aldepartamento de emergencias de inmediato. AttachmentsThe following attachments cannot be sent through Care Everywhere. Managing Pain After Surgery ([place])Opioids for Short-Term Treatment of Pain ([place])documented in this encounter Medications at Time of Discharge Medication Sig Dispensed Refills Start Date End Date oxyCODONE (ROXICODONE) Take 1 tablet (5 10 tablet 0 022 07/20/2022 5 mg oral tablet mg) by mouth every 8 hours as needed for breakthrough pain. TOME ETHAN TABLETA CADA 8 HORAS CLEMENTE SEA NECESARIO PARA EL DOLOR INTENSIVO lidocaine 5 % Apply to affected 30 g 0 07/13/2022 externally ointment areas up to 3 times daily. Aplicar en las ??reas afectadas hasta 3 veces al d??a. acetaminophen 325 mg Take 3 tablets (975 120 tablet 0 2021 oral tablet mg) by mouth 3 times daily. hydrOXYzine pamoate Take 1-2 capsules 120 capsule 0 06/26/20 (VISTARIL) 25 mg oral (25-50 mg) by mouth capsule every 4 hours as needed (pain adjunct (give with opioid)).[place] 1-2 c??psulas (25-50 mg) por v??a oral cada 4 horas seg??n sea necesario (complemento para el dolor (administrar con opioide)). bisacodyl (DULCOLAX) Unwrap and insert 1 5 suppository 0 10 mg rectal suppository (10 mg) suppository by Rectal route daily as needed for Constipation.Dese nvuelva e inserte 1 supositorio (10 mg) por v??a rectal diariamente seg??n sea necesario para el estre??imiento. cyclobenzaprine Take 1 tablet (5 90 tablet 0 06/26/2022 (FLEXERIL) 5 mg oral mg) by mouth 3 TABS times daily. [place] 1 tableta (5 mg) por la boca 3 veces al mandy. polyethylene glycol Take 17 g by mouth 510 g 0 06/26/20 3350 twice daily.Take 1 (MIRALAX/GLUCOLAX) 17 capful to 17 gm gm/scoop oral powder cuate mixed with full glass of water twice every day as directed.[place] 17 g por v??a oral dos veces al d??a. [place] 1 tap??n hasta la minerva de 17 g mezclado con un vaso lleno de agua dos veces al d??a seg??n las indicaciones. sennosides-docusate Take 1 tablet by 40 each 0 06/26/2022 sodium (STOOL mouth twice daily. SOFTENER/LAXATIVE) [place] 1 tableta por 8.6-50 mg oral tablet la boca 2 veces al mandy. GABApentin (NEURONTIN) Take 1 capsule (400 120 capsule 0 400 mg oral capsule mg) by mouth 3 times daily. [place] 1 capsula (400 mg) por la boca 3 veces al mandy. tamsulosin (FLOMAX) Take 1 capsule (0.4 10 capsule 0 022 0.4 mg oral capsule mg) by mouth daily after meal.Take 30 minutes after same meal each day. Do NOT crush or chew.[place] 1 c??psula (0,4 mg) por v??a oral todos los d??as despu??s de ethan comida. [place] 30 minutos despu??s de la misma comida todos los d??as. No triture ni mastique. melatonin 3 mg oral Take 1 tablet (3 20 tablet 0 06/26/2022 tablet mg) by mouth at bedtime as needed for Sleep. [place] 1 tableta (3 mg) por la boca a la hora de acostrase. sodium chloride 1 gm Take 2 tablets (2 60 tablet 0 06/26/20 oral TABS g) by mouth 4 times daily. TOME DOS TABLETAS ORALMENTE 4 VECES AL MANDY rivaroxaban (XARELTO) Take 1 tablet (20 69 tablet 0 022 20 mg oral mg) by mouth daily tabletIndications: with evening meal. Deep Vein Thrombosis Indications: Blood Clot in a Deep Vein.([place] 1 tableta (20 mg) por v??a oral diariamente con la court advocate. 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 rivaroxaban (XARELTO) Take 1 tablet (15 42 tablet 0 022 07/20/2022 15 mg oral mg) by mouth twice tabletIndications: daily with meals Deep Vein Thrombosis for 21 days. Indications: Blood Clot in a Deep Vein. [place] 1 tableta (15 mg) por v??a oral dos veces al d??a con las comidas jennifer 21 d??as. 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 Indications: Mellitus Type 2 Diabetes glipiZIDE XL Take 1 tablet (10 0 (GLUCOTROL XL) 10 mg mg) by mouth daily. oral extended release Indications: Type 2 tabletIndications: Diabetes Type 2 Diabetes Mellitus traMADol (ULTRAM) 50 Take 1 tablet (50 7 tablet 0 07/08/20 22 07/15/2022 mg oral TABS mg) by mouth at bedtime as needed for Pain. * TOME ETHAN TABLETA ORALMENTE ANTES DE ACOSTARSE CLEMENTE SEA NECESARIO PARA EL DOLOR documented as of this encounter ED Notes Sheila Galindo RN - 07/15/2022 8:50 AM CDT Pt d/c home/self-care via family/. Dressed appropriately for weather. Discharge instructions including prescription(s), self-care & f/u reviewed with patient. Questions answered, pt verbalizes understanding. sign language interpreter used for discharge instructions. Hector Loya RN - 07/15/2022 3:10 AM CDT ISD medical interpreter used. Pt to ED c/o right leg pain from hip to foot with cold foot on the right side, mid calf to toes, + PMS, palpable pulse. Pt a/o x 4, denies headache, pupils 3:2 mm bilaterally, PERRL. Pt denies chest pain at this time, no peripheral edema noted. Pt denies SOB when laying, respirations even and non-labored, LS CTAB. Pt denies n/v/d at this time, + ABS x 4. Pt skin clean dry intact. Pt denies request at this time, safety maintained. Pt bed in lowest position, wheels locked, NAD noted. Timothy Palacios RN - 07/15/2022 2:55 AM CDT Bed: A13 Expected date: Expected time: Means of arrival: Comments: T Marily Kapadia RN - 07/14/2022 6:45 PM CDT Per patient via automotive parts interpreter, persistent right leg pain for the last several days after recently tapered off Oxycodone and placed on Tramadol s/p pelvic ring fracture. States he was given a topical cream yesterday that is not helping. documented in this encounter Miscellaneous Notes ED Triage Provider Note - Areli Mccoy MD - 07/14/2022 7:10 PM CDT TRIAGE PHYSICIAN MEDICAL SCREENING EVALUATION Bertram Moran 46 y.o. male Chief Complaint: Right leg pain HPI: Patient presents to the Emergency Department with right leg pain from hip to foot s/p recent hospitalization for 30 ft fall from [facility]. Pt was seen in the ED yesterday for similar pain, was given topical lidocaine, but states that pain has worsened and spread. He states that yesterday pain was only from knee to foot. Lower extremity ULT from yesterday negative for DVT. Pt has finished course of oxycodone, and has begun taking ibuprofen, but states that this is insufficient for pain control. . Assessment and Plan: Patient presenting with leg pain. Will order oxycodone, T- spine XR, pelvic XR from Triage. Pt appropriate to await room in [facility] for further evaluation and management. Scribed for Areli Mccoy MD by Xavier Chavez Scribe, 07/14/2022 7:10 PM IDarius Johanna C, MD have reviewed the initial documentation provided by the scribe and affirm that it is an accurate restatement of my dictated record of services. Signed: Areli Mccoy MD 19:10 documented in this encounter Plan of Treatment Upcoming Encounters Date Type Specialty Care Team Description 07/22/2022 Appointment RADIOLOGY Roosevelt Brown MD [address] [place] [phone] Scheduled 1, Is[place] [address] [place] [address] 07/22/2022 Office Visit ORTHOPEDICS Miri Matthew MD [address] [place] [address] Scheduled 1, [place] [address] [place] [address] 07/22/2022 Office Visit Interventional Radiology Provider, Hesham haq Scheduled 1, [place] [address] [place] [address] 07/25/2022 Appointment RADIOLOGY Patrice Hollins MD [address] [place] [address] Scheduled 1, [place] [address] [place] [address] 07/25/2022 Office Visit NEUROSURGERY Briana Kaplan PA -C [address] [place] [address] Scheduled 1, [place] [address] [place] [address] 07/25/2022 Appointment PHYSICAL MEDICINE AND REHAB Lore Aguilar, PT Scheduled [address] [place] [address] (Wo rk) 08/05/2022 Appointment ORTHOPEDICS 1, [place] Scheduled [address] [place] [address] 08/05/2022 Appointment RADIOLOGY Roosevelt Brown MD [address] [place] [address] Scheduled 1, [place] [address] [place] [address] 08/05/2022 Appointment RADIOLOGY Roosevelt Brown MD [address] [place] [address] Scheduled 1, [place] [address] [place] [address] 08/05/2022 Office Visit ORTHOPEDICS Roosevelt Brown MD [address] [place] [phone] Scheduled 1, [place] [address] [place] [address] Scheduled Referrals Name Type Priority Associated Diagnoses Order S chedule REFERRAL TO INTERVENTIONAL Referral Routine Post-operative pain Ordered: 07/15/2022 PAIN CLINIC documented as of this encounter Procedures Procedure Name Priority Date/Time Associated Comments Diagnosis XR SPINE THORACOLUMBAR Routine 07/14/2022 7:30 PM Results for this 2 VIEW CDT procedure are i n the results section. XR PELVIS AP* Routine 07/14/2022 7:29 PM Results for this CDT procedure are i n the results section. documented in this encounter Results XR SPINE THORACOLUMBAR 2 VIEW (07/14/2022 [...] process of L1. Reading Radiologist: Dora Mathew 07/14/2022 8:36 PM CDT Thoracolumbar spine 2 [...] X-RAY XR PELVIS AP* (07/14/2022 7:29 PM CDT) Anatomical Region Laterality Modality Pelvis [...] Radiologist: Ronal Rouse Areli Mccoy MD X-RAY documented in this encounter Visit Diagnoses Diagnosis Post-operative pain - Primary Other acute postoperative pain documented in this encounter Administered Medications Inactive Administered Medications - up to 3 most recent administrations Medication Order MAR Action Action Date Dose Rate Site acetaminophen tablet 650 mg Given 07/15/2022 6:53 AM CDT 650 mg 650 mg, Oral, ONE TIME, 1 dose, On Thu07/15/22 at 0645 ibuprofen (MOTRIN;ADVIL) tablet 600 mg Given 07/15/2022 6:53 AM CDT 600 mg 600 mg, Oral, ONE TIME, 1 dose, On Thu07/15/22 at 0645 oxyCODONE (ROXICODONE) tablet 10 mg Given 07/14/2022 8:50 PM CDT 10 mg 10 mg, Oral, ONE TIME, 1 dose, On Thu07/14/22 at 1910 oxyCODONE (ROXICODONE) tablet 5 mg Given 07/15/2022 6:53 AM CDT 5 mg 5 mg, Oral, ONE TIME, 1 dose, On Thu07/15/22 at 0645 documented in this encounter Active and Recently Administered Medications Times are shown in CDT. Scheduled Medication Order 07/13/2022 07/14/2022 07/15/2022 acetaminophen tablet 650 mg (COMPLETED) 0653 (Given - Provider: Hector Loya RN) 650 mg, Oral, ONE TIME, 1 dose, On Thu07/15/22 at 0645 ibuprofen (MOTRIN;ADVIL) tablet 600 mg (COMPLETED) 06 (Given - Provider: Hector Loya RN) 600 mg, Oral, ONE TIME, 1 dose, On Thu07/15/22 at 0645 oxyCODONE (ROXICODONE) tablet 10 mg (COMPLETED) 2049 (Given - Provider: Ginger Santacruz RN) 10 mg, Oral, ONE TIME, 1 dose, On 07/14/22 at 1910 oxyCODONE (ROXICODONE) tablet 5 mg (COMPLETED) 0653 (Given - Provider: Hector Loya RN) 5 mg, Oral, ONE TIME, 1 dose, On Thu07/15/22 at 0645 documented in this encounter Care Teams Lead Warehouse Associate Relationship Specialty Start Date End Date Lore Au, PT Physical Therapist Physical Therapy 07/09/22 [address] [place] [address] documented as of this encounter
--- OUTSIDE RECORDS SUMMARY | 2022-07-17 10:12 | XMS_ITS | Encounter Summary ---
:1975 Author Organization [facility] Address [address] [place] [address] Phone Care Team Providers Name Role Phone Lore Au PT Unavailable Encounter Details Date Type Department Care Team Description 07/13/2022 Travel Social History Tobacco Use Types Packs/Day [...] Appointment RADIOLOGY Roosevelt Brown MD [address] [place] [address] Scheduled 1, [place] [address] [place] [address] 07/22/2022 Office Visit ORTHOPEDICS Miri Matthew MD 701 [place], [place] [phone] Scheduled 1, [place] [address] [place] [address] 07/22/2022 Office Visit Interventional Radiology Provider, Hesham haq Scheduled 1, [place] [address] [place] [address] 07/25/2022 Appointment RADIOLOGY Patrice Hollins MD [address] [address] Scheduled 1, [place] [address] [place] [address] 07/25/2022 Office Visit NEUROSURGERY Briana Kaplan PA -C [address] [place] [address] Scheduled 1, [place] [address] [place] [address] 07/25/2022 Appointment PHYSICAL MEDICINE AND REHAB Lore Aguilar PT Scheduled [address] [place] [address] (Wo rk) 08/05/2022 Appointment ORTHOPEDICS 1, [place] Scheduled 1 [place] [address] 08/05/2022 Appointment RADIOLOGY Roosevelt Brown MD [address] [place] [address] Scheduled 1, [place] [address] [place] [address] 08/05/2022 Appointment RADIOLOGY Roosevelt Brown MD [address] [place] [address] Scheduled 1, [place] 1 [place] [address] 08/05/2022 Office Visit ORTHOPEDICS Roosevelt Brown MD [address] [place] [address] Scheduled 1, [place] [address] [place] [address] documented as of this encounter Visit Diagnoses Not on filedocumented in this encounter Care Teams Online Advertising Analyst Relationship Specialty Start Date End Date Lore Au, PT Physical Therapist Physical Therapy 07/09/22 [address] [place] [address] documented as of this encounter
--- OUTSIDE RECORDS SUMMARY | 2022-07-17 10:12 | XMS_ITS | Encounter Summary ---
:1975 Author Organization [facility] Address [address] [facility] [place] [address] Phone Care Team Providers Name Role Phone Unavailable Primary Care Provider Unavailable Reason for Visit Reason Comments Pain Control Encounter Details Date Type Department Care Team Description 06/29/2022 - Emergency [facility] Emergency Sascha Mendez , DO Pain 06/30/2022 Department [address] [facility] [address] [place] [address] [address]1.[address] [place], [place] [address] [phone] Social History Tobacco Use Types Packs/Day Years Used Date Smoking Tobacco: Never Alcohol Use Standard Drinks/Week Comments Not Asked 0 (1 standard drink = 0.6 oz pure alcoho l) Sex Assigned at Date Recorded Not on file COVID-19 Exposure Response Date Recorded In the last 10 days, have you been in contact with No / Unsu re 06/29/2022 10:28 PM CDT someone who was confirmed or suspected to have Coronavirus/COVID-19? documented as of this encounter Last Filed Vital Signs Vital Sign Reading Time Taken Comments Blood Pressure 125/73 06/30/2022 1:42 AM CDT Pulse 96 06/30/2022 1:42 AM CDT Temperature 36.6 ??C (97.8 ??F) 06/29/2022 10:26 PM CDT Respiratory Rate 18 06/30/2022 1:42 AM CDT Oxygen Saturation 100% 06/30/2022 1:42 AM CDT Inhaled Oxygen Concentration - - Weight - - Height - - Body Mass Index - - documented in this encounter Discharge Instructions Discharge InstructionsKristie Javed MD - 06/30/2022 2:40 AM CDT You were seen in the emergency department for pain and a wound check. Your wounds looked like they were healing well and we change the dressings. We also discussed options for pain control, including taking the oxycodone that you are prescribed. Please return to the emergency department if you developfevers, vomiting, redness around your wounds, or any other symptoms that concern you. Best of luck in your healing process. AttachmentsThe following attachments cannot be sent through Care Everywhere. Acute Pain Discharge Instructions, Adult (Gambian)documented in this encounter Medications at Time of Discharge Medication Sig Dispensed Refills Start Date End Date acetaminophen 325 mg Take 3 tablets 120 tablet 0 06/26/2022 oral tablet (975 mg) by mouth 3 times daily. hydrOXYzine pamoate Take 1-2 capsules 120 capsule 0 06/26/20 (VISTARIL) 25 mg oral (25-50 mg) by capsule mouth every 4 hours as needed (pain adjunct (give with opioid)).[place] 1-2 c??psulas (25-50 mg) por v??a oral cada 4 horas seg??n sea necesario (complemento para el dolor (administrar con opioide)). bisacodyl (DULCOLAX) 10 Unwrap and insert 5 suppository 0 mg rectal suppository 1 suppository (10 mg) by Rectal route daily as needed for Constipation.Nvai envuelva e inserte 1 supositorio (10 mg) por v??a rectal diariamente seg??n sea necesario para el estre??imiento. cyclobenzaprine Take 1 tablet (5 90 tablet 0 06/26/2022 (FLEXERIL) 5 mg oral mg) by mouth 3 TABS times daily. [place] 1 tableta (5 mg) por la boca 3 veces al mandy. polyethylene glycol Take 17 g by mouth 510 g 0 06/26/20 22 3350 (MIRALAX/GLUCOLAX) twice daily.Take 1 17 gm/scoop oral powder capful to 17 gm cuate mixed with full glass of water twice every day as directed.[place] 17 g por v??a oral dos veces al d??a. [place] 1 tap??n hasta la minerva de 17 g mezclado con un vaso lleno de agua dos veces al d??a seg??n las indicaciones. sennosides-docusate Take 1 tablet by 40 each 0 06/26/2022 sodium (STOOL mouth twice daily. SOFTENER/LAXATIVE) [place] 1 tableta por 8.6-50 mg oral tablet la boca 2 veces al mandy. GABApentin (NEURONTIN) Take 1 capsule 120 capsule 0 06/26/20 400 mg oral capsule (400 mg) by mouth 3 times daily. [place] 1 capsula (400 mg) por la boca 3 veces al mandy. tamsulosin (FLOMAX) 0.4 Take 1 capsule 10 capsule 0 06/27/20 22 mg oral capsule (0.4 mg) by mouth daily after meal.Take 30 minutes after same meal each day. Do NOT crush or chew.[place] 1 c??psula (0,4 mg) por v??a oral todos los d??as despu??s de ethan comida. [place] 30 minutos despu??s de la misma comida todos los d??as. No triture ni mastique. melatonin 3 mg oral Take 1 tablet (3 20 tablet 0 06/26/2022 tablet mg) by mouth at bedtime as needed for Sleep. [place] 1 tableta (3 mg) por la boca [...] Thrombosis Indications: Blood Clot in a Deep Vein.([place] 1 tableta (20 mg) por v??a oral diariamente con la evonne. 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 rivaroxaban (XARELTO) Take 1 tablet (15 42 tablet 0 022 07/20/2022 15 mg oral mg) by mouth twice tabletIndications: Deep daily with meals Vein Thrombosis for 21 days. Indications: Blood Clot in a Deep Vein. [place] 1 tableta (15 mg) por v??a oral [...] Indications: Type 2 Diabetes Mellitus 2 Diabetes oxyCODONE (ROXICODONE) Take 1 tablet (5 30 tablet 0 022 07/04/2022 5 mg oral tablet mg) by mouth every 4 hours as needed for Pain. documented as of this encounter ED Notes Vidya Do RN - 06/30/2022 2:43 AM CDT Pt d/c home/self-care via private vehicle with his . Dressed appropriately for weather. Ambulatory without assistance. Discharge instructions including, self-care & f/u reviewed with patient. Questions answered, pt verbalizes understanding. Kristie Abdul MD - 06/30/2022 2:24 AM CDT Emergency Medicine Provider Note Bertram Moran 1975 Sex: male Chief Complaint Patient presents with Pain Control Medical Decision Making / Disposition: 46 y.o. male presenting with right hip/leg pain that he states has not been well-controlled since being discharged 06/27; patient originally admitted s/p fall from a scaffolding and underwent right closed reduction and transsacral pinning with orthopedics followed by open reduction and internal fixation of the right SI joint without complications. Patient taking tylenol/ibuprofen and antispasmodics asprescribed, however he did not realize he was also prescribed oxycodone. Bottle still full from prescription, and patient is very apologetic about this; states his pain has resolved since being given adose in triage. Encouraged patient to take this as prescribed to better control his pain. Wounds healing well without signs of infection; dressings were changed. Patient provided with return precautions and he was discharged and encouraged to go to his follow-up appointment with ortho on 07/08. Patientexpressed understanding and agreement to the plan. Clinical Impression: 1. Pain 2. Encounter for post surgical wound check Kristie Javed MD, 06/30/2022 2:24 AM History of Present Illness / Objective: Patient is a 46 y.o. male presenting with right leg and hip pain that he states has not been well-controlled since having surgery a couple weeks ago. States he was prescribed a lot of medication and has been taking all of them as prescribed except the oxycodone which he didn't realize was in his bag of medication. Patient was given 10mg oxycodone in triage and states his pain has resolved. Would alsolike to have his wounds checked, denies any fevers, vomiting. Having normal bowel movements, no issues urinating. Physical Exam: BP 125/73 (Cuff Location: Left Arm, Patient Position: Lying Down) Pulse 96 Temp 36.6 ??C (97.8 ??F) (Oral) Resp 18 SpO2 100% General: Awake, alert, NAD, very apologetic Head: Normocephalic, atraumatic. Hearing grossly normal. Eyes: Conjugate gaze. ENT: Moist membranes. Cardiovascular: Regular rate and rhythm. Peripheral pulses present. Chest/Lungs: Normal effort, equal chest rise, normal breath sounds. Abdomen: Soft, non-distended, non-tender. MSK: moving all extremities Neurological: GCS 15, no gross focal deficits, distal sensation intact Skin: Warm. Significant ecchymoses around right hip, although surgical wounds appear well-healing, clean/dry/intact without surrounding erythema, warmth, induration Past Medical, Surgical, and Family History reviewed in chart and with patient. PMH: DM Past Surgical History: Procedure Laterality Date ORIF PELVIS Right 06/18/2022 Procedure: ORIF, PELVIS; Laterality: Right; Surgeon: Roosevelt Brown MD; Service: Orthopedics ORIF PELVIS Right 06/24/2022 Procedure: OPEN REDUCTION INTERNAL FIXATION RIGHT SI JOINT; Laterality: Right; Surgeon: Roosevelt Brown MD; Service: Orthopedics ROS: A 10-point ROS was performed and is negative except for otherwise stated in the HPI. Kristie Javed MD, 06/30/2022 2:24 AM Emergency Medicine Resident, G1 Dictation Disclaimer: Some notes are completed with voice-recognition dictation software. Errors aregenerally corrected in real time. Please contact me via [facility] staff message if you note any errors requiring clarification. Sam Bautista RN - 06/30/2022 1:16 AM CDT Bed: B15 Expected date: Expected time: Means of arrival: Comments: T Joselo Soares RN - 06/29/2022 10:29 PM CDT Pt presents to the ED for pain control. Pt feel two weeks ago from twenty feet and had hip surgery. Pt was discharged on 06/27/22 and since then medication he was described is not helping with his pain. documented in this encounter Miscellaneous Notes ED Faculty Note - Sascha Mendez DO - 06/30/2022 2:13 AM CDT Emergency Department Faculty Attestation and Note Due to a language barrier, a professional department supervisor was present in person during this encounter. Summary Note Bertram Moran is a 46 y.o. year old male who presents for pain control. Patient was recentlydischarged with oxycodone s/p hip surgeries, but did not realize he had oxycodone and had not been taking it since being discharged on 06/27/22. He received a dose of oxycodone while in the ED and felt much better. Discharge home in stable condition with instructions to return to emergency department sooner if new or worse symptoms. Please see the resident or physician emergency room physician assistant note from the same day for additional documentation of this visit. Physical Exam BP 125/73 (Cuff Location: Left Arm, Patient Position: Lying Down) Pulse 96 Temp 36.6 ??C (97.8 ??F) (Oral) Resp 18 SpO2 100% general: patient in no acute distress, well-appearing. pulmonary: respirations non-labored, normal work of breathing. neuro: alert and interactive. mental status appropriate for age. Orders placed this Encounter Orders Placed This Encounter oxyCODONE (ROXICODONE) tablet 10 mg Faculty Attestation Sascha Griffin DO performed a history and physical examination of the patient and discussed management with the resident. I reviewed the resident's note and agree with the documented findings andplan of care as documented in the resident's note. Critical Care No. RN and Ancillary Notes I have reviewed nursing and ancillary notes, and agree with protocol as initiated. Procedures Not applicable Medical Decision Making The medical record discussed and medical record reviewed and interpreted Scribed for Sascha Mendez DO by Tamika Melvin Scribe, 06/30/2022 2:13 AM ISascha DO have reviewed the initial documentation provided by the aissatou and affirm that it is an accurate restatement of my dictated record of services. Signed: Sascha Mendez DO 02:13 ED Triage Provider Note - Alvaro Adams MD - 06/29/2022 10:30 PM CDT TRIAGE PHYSICIAN MEDICAL SCREENING EVALUATION Bertram Moran is a 46 y.o. male 06/29/2022 10:22 PM Chief complaint: Pain Control Pertinent history: Patient presents with pain control. Patient had a pelvic fracture from a fall requiring surgery and discharged from hospital 2 days ago. Took pain medications as prescribed with no significant relief. Assessment and Plan: The patient presented to the ED for evaluation of potentially life and/or limb-threatening problem. They received a medical evaluation by me at triage. I will start their workup and have them moved to a room when available. Scribed for Alvaro Adams MD by Ismael Burns Scribe, 06/29/2022 10:30 PM I, Alvaro Adams MD have reviewed the initial documentation provided by the scribe and affirm thatit is an accurate restatement of my dictated record of services. Signed: Alvaro Adams MD, 22:30 06/29/2022 Alvaro Adams MD Faculty Physician, Emergency Medicine 06/29/2022 22:30 documented in this encounter Plan of Treatment Upcoming Encounters Date Type Specialty Care Team Description 07/22/2022 Appointment RADIOLOGY Roosevelt Brown MD [address] [place] [phone] Scheduled 1, [place] [address] [place] [address] 07/22/2022 Office Visit ORTHOPEDICS Miri Matthew MD [address] [place] [phone] Scheduled 1, [place] [address] [place] [phone] 07/22/2022 Office Visit Interventional Radiology Provider, Hesham haq Scheduled 1, [place] [address] [place] [address] 07/25/2022 Appointment RADIOLOGY Patrice Hollins MD [address] [place] [phone] Scheduled 1, [place] [address] [place] [phone] 07/25/2022 Office Visit NEUROSURGERY Briana Kaplan PA -C [address] [place] [address] Scheduled 1, [place] [address] [place] [address] 07/25/2022 Appointment PHYSICAL MEDICINE AND REHAB Lore Aguilar PT Scheduled [address] [place] [address] (Wo rk) 08/05/2022 Appointment ORTHOPEDICS 1, [place] Scheduled [address] [place] [address] 08/05/2022 Appointment RADIOLOGY Roosevelt Brown MD [address] [place] [address] Scheduled 1, [place] [address] [place] [address] 08/05/2022 Appointment RADIOLOGY Roosevelt Brown MD [address] [place] [phone] Scheduled 1, [place] [address] [place] [address] 08/05/2022 Office Visit ORTHOPEDICS Roosevelt Brown MD [address] [place] [phone] Scheduled 1, [place] [address] [place] [address] documented as of this encounter Visit Diagnoses Diagnosis Pain - Primary Generalized pain Encounter for post surgical wound check documented in this encounter Administered Medications Inactive Administered Medications - up to 3 most recent administrations Medication Order MAR Action Action Date Dose Rate Site oxyCODONE (ROXICODONE) tablet 10 Given 06/29/2022 11:25 PM CDT 1 0 mg mg 10 mg, Oral, ONE TIME, 1 dose, On 06/29/22 at 2240 documented in this encounter Active and Recently Administered Medications Times are shown in CDT. Scheduled Medication Order 06/28/2022 06/29/2022 06/30/2022 oxyCODONE (ROXICODONE) tablet 10 mg (COMPLETED) [id number] (Given - Provider: Raven Orr RN) 10 mg, Oral, ONE TIME, 1 dose, On 06/29/22 at 2240 documented in this encounter
--- OUTSIDE RECORDS SUMMARY | 2022-07-17 10:12 | XMS_ITS | Encounter Summary ---
:1975 Author Organization [facility] Address [address] [place] [address] Phone Care Team Providers Name Role Phone Unavailable Primary Care Provider Unavailable Encounter Details Date Type Department Care Team Description 07/08/2022 Hospital Encounter Clinic & Specialty Patrice Hollins MD [address] [id number] Center XRAY 1, [place] [address] [place] [address] 5540 Social History Tobacco Use Types Packs/Day [...] have Coronavirus/COVID-19? documented as of this encounter Medications at Time of Discharge Medication Sig Dispensed Refills Start Date End Date acetaminophen 325 mg Take 3 tablets 120 tablet 0 06/26/2022 oral tablet (975 mg) by mouth 3 times daily. hydrOXYzine pamoate Take 1-2 capsules 120 capsule 0 06/26/20 (VISTARIL) 25 mg oral (25-50 mg) by capsule mouth every 4 hours as needed (pain adjunct (give with opioid)).[place] 1-2 c??psulas (25-50 mg) por v??a oral [...] mg) by mouth 3 TABS times daily. [place] 1 tableta (5 mg) por la boca 3 veces al mandy. polyethylene glycol Take 17 g by mouth 510 g 0 06/26/20 22 3350 (MIRALAX/GLUCOLAX) twice daily.Take 1 17 gm/scoop oral powder capful to 17 gm cuate mixed with full glass of water twice every day as directed.[place] 17 g por v??a oral dos veces al d??a. [place] 1 tap??n hasta la minerva de 17 g mezclado con un vaso lleno de agua dos veces al d??a seg??n las indicaciones. sennosides-docusate Take 1 tablet by 40 each 0 06/26/2022 sodium (STOOL mouth twice daily. SOFTENER/LAXATIVE) [place] 1 tableta por 8.6-50 mg oral tablet la boca 2 veces al mandy. GABApentin (NEURONTIN) Take 1 capsule 120 capsule 0 06/26/20 22 400 mg oral capsule (400 mg) by mouth 3 times daily. [place] 1 capsula (400 mg) por la boca 3 veces al mandy. tamsulosin (FLOMAX) 0.4 Take 1 capsule 10 capsule 0 06/27/20 22 mg oral capsule (0.4 mg) by mouth daily after meal.Take 30 minutes after same meal each day. Do NOT crush or chew.[place] 1 c??psula (0,4 mg) por v??a oral todos los d??as despu??s de ethan comida. [place] 30 minutos despu??s de la misma comida todos los d??as. No triture ni mastique. melatonin 3 mg oral Take 1 tablet (3 20 tablet 0 06/26/2022 tablet mg) by mouth at bedtime as needed for Sleep. [place] 1 tableta (3 mg) por la boca [...] Thrombosis Indications: Blood Clot in a Deep Vein.([place] 1 tableta (20 mg) por v??a oral diariamente con la evonne. 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 rivaroxaban (XARELTO) Take 1 tablet (15 42 tablet 0 06/29/ 022 07/20/2022 15 mg oral mg) by mouth twice tabletIndications: Deep daily with meals Vein Thrombosis for 21 days. Indications: Blood Clot in a Deep Vein. [place] 1 tableta (15 mg) por v??a oral [...] EL DOLOR documented as of this encounter Plan of Treatment Upcoming Encounters Date Type Specialty Care Team Description 07/22/2022 Appointment RADIOLOGY Roosevelt Brown MD [address] [place] [id number] Scheduled 1, [place] [address] [place] [address] 07/22/2022 Office Visit ORTHOPEDICS Miri Matthew MD [address] [place] [address] Scheduled 1, [place] [address] [place] [address] 07/22/2022 Office Visit Interventional Radiology Provider, Hesham haq Scheduled 1, [place] [address] [place] [address] 07/25/2022 Appointment RADIOLOGY Patrice Hollins MD [address] [address] Scheduled 1, [place] [address] [place] [address] 07/25/2022 Office Visit NEUROSURGERY Briana Kaplan PA -C [address] [place] [address] Scheduled 1, [place] [address] [place] [address] 07/25/2022 Appointment PHYSICAL MEDICINE AND REHAB Lore Aguilar, PT Scheduled [address] [place] [address] (Wo rk) 08/05/2022 Appointment ORTHOPEDICS 1, [place] Scheduled [address] [place] [address] 08/05/2022 Appointment RADIOLOGY Roosevelt Brown MD [address] [place] [address] [phone] Scheduled 1, [place] [address] [place] [address] 08/05/2022 Appointment RADIOLOGY Roosevelt Brown MD [address] [place] [address] Scheduled 1, [place] [address] [place] [address] 08/05/2022 Office Visit ORTHOPEDICS Roosevelt Brown MD [address] [place] [address] Scheduled 1, [place] [address] [place] [address] documented as of this encounter Procedures Procedure Name Priority Date/Time Associated Diagnosis Comme nts XR WRIST RIGHT 3+ Routine 07/08/2022 8:50 AM Closed fracture o f Results for this PA/OB/LAT/JENS* CDT distal end of right proced ure are in radius, unspecified the resu lts fracture morphology, section . initial encounter documented in this encounter Results XR WRIST RIGHT 3+ PA/OB/LAT/JENS* (07/08/2022 8:50 AM CDT) Anatomical Region Laterality Modality Hand Digital Radiography [...] Radiologist: Ronal Rouse Ellen Mays PA-C X-RAY documented in this encounter Visit Diagnoses Diagnosis Closed fracture of distal end of right r adius, unspecified fracture morphology, initial encounter documented in this encounter
--- OUTSIDE RECORDS SUMMARY | 2022-07-17 10:12 | XMS_ITS | Encounter Summary ---
:1975 Author Organization [facility] Address [address] [place] [address] Phone Care Team Providers Name Role Phone Unavailable Primary Care Provider Unavailable Encounter Details Date Type Department Care Team Description 07/08/2022 Hospital Encounter Clinic & Specialty Dom Matthew MD [address] [place], [place] [address] Center Ultrasound 1, [place] [address] [place] [address] [facility] [address] [place] [address] Social History Tobacco Use Types Packs/Day [...] hours as needed (pain adjunct (give with opioid)).[place] 1-2 c??psulas (25-50 mg) por v??a oral [...] mg) by mouth 3 TABS times daily. [place] 1 tableta (5 mg) por la boca 3 veces al mandy. polyethylene glycol Take 17 g by mouth 510 g 0 06/26/20 3350 (MIRALAX/GLUCOLAX) twice daily.Take 1 17 gm/scoop oral powder capful to 17 gm cuate mixed with full glass of water twice every day as directed.[place] 17 g por v??a oral dos veces al d??a. [place] 1 tap??n hasta la minerva de 17 g mezclado con un vaso lleno de agua dos veces al d??a seg??n las indicaciones. sennosides-docusate Take 1 tablet by 40 each 0 06/26/2022 sodium (STOOL mouth twice daily. SOFTENER/LAXATIVE) [place] 1 tableta por 8.6-50 mg oral tablet la boca 2 veces al mandy. GABApentin (NEURONTIN) Take 1 capsule 120 capsule 0 06/26/20 22 400 mg oral capsule (400 mg) by mouth 3 times daily. [place] 1 capsula (400 mg) por la boca 3 veces al mandy. tamsulosin (FLOMAX) 0.4 Take 1 capsule 10 capsule 0 06/27/20 22 mg oral capsule (0.4 mg) by mouth daily after meal.Take 30 minutes after same meal each day. Do NOT crush or chew.[place] 1 c??psula (0,4 mg) por v??a oral todos los d??as despu??s de ethan comida. [place] 30 minutos despu??s de la misma comida todos los d??as. No triture ni mastique. melatonin 3 mg oral Take 1 tablet (3 20 tablet 0 06/26/2022 tablet mg) by mouth at bedtime as needed for Sleep. [place] 1 tableta (3 mg) por la boca [...] Thrombosis Indications: Blood Clot in a Deep Vein.([place] 1 tableta (20 mg) por v??a oral diariamente con la evonne. 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 rivaroxaban (XARELTO) Take 1 tablet (15 42 tablet 0 06/29/ 022 07/20/2022 15 mg oral mg) by mouth twice tabletIndications: Deep daily with meals Vein Thrombosis for 21 days. Indications: Blood Clot in a Deep Vein. [place] 1 tableta (15 mg) por v??a oral [...] Appointment RADIOLOGY Roosevelt Brown MD [address] [place] [address] Scheduled 1, [place] [address] [place] [address] 07/22/2022 Office Visit ORTHOPEDICS Miri Matthew MD [address] [place] [address] Scheduled 1, [place] [address] [place] [address] 07/22/2022 Office Visit Interventional Radiology Provider, Hesham haq Scheduled 1, [place] [address] [place] [address] 07/25/2022 Appointment RADIOLOGY Patrice Hollins MD [address] [address] Scheduled 1, [place] [address] [place] [address] 07/25/2022 Office Visit NEUROSURGERY Eusebio, BRITTNEY CantuC [address] [place] [address] Scheduled 1, [place] [address] [place] [address] 07/25/2022 Appointment PHYSICAL MEDICINE AND REHAB Lore Aguilar, PT Scheduled [address] [place] [address] (Wo rk) 08/05/2022 Appointment ORTHOPEDICS 1, [place] Scheduled [address] [place] [address] 08/05/2022 Appointment RADIOLOGY Roosevelt Brown MD [address] [place] [address] [phone] Scheduled 1, [place] [address] [place] [address] 08/05/2022 Appointment RADIOLOGY Roosevelt Brown MD [address] [place] [address] Scheduled 1, [place] [address] [place] [address] 08/05/2022 Office Visit ORTHOPEDICS Roosevelt Brown MD [address] [place] [address] Scheduled 1, [place] [address] [place] [address] documented as of this encounter Procedures Procedure [...] ULT documented in this encounter Visit Diagnoses Not on filedocumented in this encounter
--- OUTSIDE RECORDS SUMMARY | 2022-07-17 10:12 | XMS_ITS | Encounter Summary ---
:1975 Author Organization [facility] Address [address] [place] [address] Phone Care Team Providers Name Role Phone Lore Au PT Unavailable Reason for Visit Reason Onset Date Comments ER F/U 07/15/[address] Brown Encounter Details Date Type Department Care Team Description 07/15/2022 Telephone Clinic & Specialty Gorge Dimas, WAGON DRILLER F/U ([facility] [address] [facility]) Clinic [place] [address] Social History Tobacco Use Types Packs/Day Years [...] have Coronavirus/COVID-19? documented as of this encounter Miscellaneous Notes Telephone Encounter - Gorge Dimas RN - 07/15/2022 8:36 AM CDT A/R/P: Return call to Bertram using [place] phone wireless sales associate. Bertram reports that his pain has improved since seen in the ED 07/14/2022. He is amendable to appointment with Dr. Matthew on 07/22/2022 and will arrive at 8:10 am for x-rays. Nidhi Ochoa RN, 07/16/2022 12:15 PM D: Request received for sooner orthopedic appointment for Bertram per phone message below. Bertram is being followed by Dr. Brown S/P 06/15/2022 multi-trauma fall (20-30' fall); R distal radius fx, non-op; complex R vertical shear sacral fx; R inferior pubic rami fx with high pubic root fx S/P 06/18/2022 R pelvis CR and trans-sacral pinning; 06/24/2022 ORIF, revision R iliosacral screw fixation. Bertram was last seen in the orthopedic clinic 07/08/2022 with next follow up scheduled 08/05/2022. A/R: Reviewed with Dr. Brown who advised Bertram come to clinic next week 07/22/[address] Matthew with new x-rays. Bertram was contacted by phone, but call was lost when I added fire prevention inspector and then he didn't answer when return call was made. fire prevention inspector left message for Bertram to return call to the orthopedic clinic so he can be informed of appointment which as been scheduled the same day as Interventional Radiology appointment for IVC filter evaluation. P: Pending return call for confirmation of appointment. Nidhi Ochoa RN, 07/15/2022 4:39 PM ----- Message from Milvia Rees MD sent at 07/15/2022 4:11 AM CDT ----- Hi there, Can we get Bertram in for evaluation? He has been going to the ED frequently for pain. The ED called tonight asking for recs and to alert us. I wonder if he needs to be evaluated by his surgeon sooner? Ormaybe a pain clinic referral? Thanks! Milvia documented in this encounter Plan of Treatment Upcoming Encounters Date Type Specialty Care Team Description 07/22/2022 Appointment RADIOLOGY Roosevelt Brown MD [address] [place] [address] Scheduled 1, Is[place] [address] [place] [address] 07/22/2022 Office Visit ORTHOPEDICS Miri Matthew MD [address] [place] [address] Scheduled 1, [place] [address] [place] [address] 07/22/2022 Office Visit Interventional Radiology Provider, Hesham haq Scheduled 1, [place] [address] [place] [address] 07/25/2022 Appointment RADIOLOGY Patrice Hollins MD [address] [address] Scheduled 1, [place] [address] [place] [address] 07/25/2022 Office Visit NEUROSURGERY Briana Kaplan PA -C [address] [place] [address] Scheduled 1, [place] [address] [place] [address] 07/25/2022 Appointment PHYSICAL MEDICINE AND REHAB Lore Aguilar, PT Scheduled [address] [place] [address] (Wo rk) 08/05/2022 Appointment ORTHOPEDICS 1, Isd[place] Scheduled 1 [place] [address] 08/05/2022 Appointment RADIOLOGY Roosevelt Brown MD [address] [place] [address] Scheduled 1, [place] [address] [place] [address] 08/05/2022 Appointment RADIOLOGY Roosevelt Brown MD [address] [place] [address] Scheduled 1, [place] [address] [place] [address] 08/05/2022 Office Visit ORTHOPEDICS Roosevelt Brown MD [address] [place] [address] Scheduled 1, [place] [address] [place] [address] Scheduled Orders Name Type Priority Associated Diagnoses Order S chedule XR PELVIS 3 V AP + Imaging Routine Pelvic ring fracture, Expected: 07/22/2022 INLET/OUTLET closed, initial encounter (A pproximate), () Expires: 2022 documented as of this encounter Visit Diagnoses Diagnosis Pelvic ring fracture, closed, initial en counter () - Primary documented in this encounter Care Teams Director Client Relationship Specialty Start Date End Date Lore Au, PT Physical Therapist Physical Therapy 07/09/22 [address] [place] [address] documented as of this encounter
--- OUTSIDE RECORDS SUMMARY | 2022-07-17 10:12 | XMS_ITS | Encounter Summary ---
:1975 Author Organization [facility] Address [address] [place] [address] Phone Care Team Providers Name Role Phone Unavailable Primary Care Provider Unavailable Encounter Details Date Type Department Care Team Description 07/08/2022 Hospital Encounter Clinic & Specialty Roosevelt Brown MD [address] [place] [address] Center XRAY 1, Isd[place] [address] [place] [address] [place] [address] Social History Tobacco Use Types Packs/Day Years [...] hours as needed (pain adjunct (give with opioid)).[place] 1-2 c??psulas (25-50 mg) por v??a oral [...] mg) by mouth 3 TABS times daily. [place] 1 tableta (5 mg) por la boca 3 veces al mandy. polyethylene glycol Take 17 g by mouth 510 g 0 06/26/20 22 3350 (MIRALAX/GLUCOLAX) twice daily.Take 1 17 gm/scoop oral powder capful to 17 gm cuate mixed with full glass of water twice every day as directed.[place] 17 g por v??a oral dos veces al d??a. [place] 1 tap??n hasta la minevra de 17 g mezclado con un vaso lleno de agua dos veces al d??a seg??n las indicaciones. sennosides-docusate Take 1 tablet by 40 each 0 06/26/2022 sodium (STOOL mouth twice daily. SOFTENER/LAXATIVE) [place] 1 tableta por 8.6-50 mg oral tablet la boca 2 veces al mandy. GABApentin (NEURONTIN) Take 1 capsule 120 capsule 0 06/26/20 22 400 mg oral capsule (400 mg) by mouth 3 times daily. [place] 1 capsula (400 mg) por la boca 3 veces al mandy. tamsulosin (FLOMAX) 0.4 Take 1 capsule 10 capsule 0 06/27/20 22 mg oral capsule (0.4 mg) by mouth daily after meal.Take 30 minutes after same meal each day. Do NOT crush or chew.[place] 1 c??psula (0,4 mg) por v??a oral todos los d??as despu??s de ethan comida. [place] 30 minutos despu??s de la misma comida todos los d??as. No triture ni mastique. melatonin 3 mg oral Take 1 tablet (3 20 tablet 0 06/26/2022 tablet mg) by mouth at bedtime as needed for Sleep. [place] 1 tableta (3 mg) por la boca [...] Thrombosis Indications: Blood Clot in a Deep Vein.([place] 1 tableta (20 mg) por v??a oral diariamente con la evonne. 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 rivaroxaban (XARELTO) Take 1 tablet (15 42 tablet 0 06/29/ 022 07/20/2022 15 mg oral mg) by mouth twice tabletIndications: Deep daily with meals Vein Thrombosis for 21 days. Indications: Blood Clot in a Deep Vein. [place] 1 tableta (15 mg) por v??a oral [...] Appointment RADIOLOGY Roosevelt Brown MD [address] [place] [address] Scheduled 1, [place] [address] [place] [address] 07/22/2022 Office Visit ORTHOPEDICS Miri Matthew MD [address] [place] [address] Scheduled 1, [place] [address] [place] [address] 07/22/2022 Office Visit Interventional Radiology Provider, Hesham haq Scheduled 1, [place] [address] [place] [address] 07/25/2022 Appointment RADIOLOGY Patrice Hollins MD [address] [address] Scheduled 1, [place] [address] [place] [address] 07/25/2022 Office Visit NEUROSURGERY Briana Kaplan PA -C [address] [place] [address] Scheduled 1, [place] [address] [place] [address] 07/25/2022 Appointment PHYSICAL MEDICINE AND REHAB Lore Aguilar, PT Scheduled [address], [place] [address] (Wo rk) 08/05/2022 Appointment ORTHOPEDICS 1, Isd[place] Scheduled [address] [place] [address] 08/05/2022 Appointment RADIOLOGY Roosevelt Brown MD [address] [place] [address] Scheduled 1, [place] [address] [place] [address] 08/05/2022 Appointment RADIOLOGY Roosevelt Brown MD [address] [place] [address] Scheduled 1, [place] [address] [place] [address] 08/05/2022 Office Visit ORTHOPEDICS Roosevelt Brown MD [address] [place] [address] Scheduled 1, [place] [address] [place] [address] documented as of this encounter Procedures Procedure Name Priority Date/Time Associated Diagnosis Comme nts XR PELVIS 3 V AP Routine 07/08/2022 8:50 AM Pelvic ring Resul ts for this &INLET/OUTLET CDT fracture, closed, procedure are in subsequent encounter the res ults () section. documented in this encounter Results XR PELVIS 3 V [...]
--- OUTSIDE RECORDS SUMMARY | 2022-07-17 10:12 | XMS_ITS | Encounter Summary ---
:1975 Author Organization [facility] Address [address] [place] [address] Phone Care Team Providers Name Role Phone Unavailable Primary Care Provider Unavailable Encounter Details Date Type Department Care Team Description 06/29/2022 Travel Social History Tobacco Use Types Packs/Day [...] Appointment RADIOLOGY Roosevelt Brown MD [address] [place] [address] Scheduled 1, [place] [address] [place] [address] 07/22/2022 Office Visit ORTHOPEDICS Miri Matthew MD [address] [place], [place] [address] Scheduled 1, [place] [address] [place] [address] 07/22/2022 Office Visit Interventional Radiology Provider, Hesham haq Scheduled 1, [place] [address] [place] [address] 07/25/2022 Appointment RADIOLOGY Patrice Hollins MD [address] [address] Scheduled 1, [place] [address] [place] [address] 07/25/2022 Office Visit NEUROSURGERY Eusebio, Briana Reyes, PA Ibis[facility] [address] [place] [address] Scheduled 1, [place] [address] [place] [address] 07/25/2022 Appointment PHYSICAL MEDICINE AND REHAB Lore Aguilar, PT Scheduled [address] [place] [address] (Wo rk) 08/05/2022 Appointment ORTHOPEDICS 1, Isd[place]Guine[place] Scheduled [address] [place] [address] 08/05/2022 Appointment RADIOLOGY Roosevelt Brown MD [address] [place] [address] Scheduled 1, [place] [address] [place] [address] 08/05/2022 Appointment RADIOLOGY Roosevelt Brown MD [address] [place] [address] Scheduled 1, [place] [address] [place] [address] 08/05/2022 Office Visit ORTHOPEDICS Roosevelt Brown MD [address] [place] [address] Scheduled 1, [place] [address] [place] [address] documented as of this encounter Visit Diagnoses Not on filedocumented in this encounter
--- OUTSIDE RECORDS SUMMARY | 2022-07-17 10:12 | XMS_ITS | Encounter Summary ---
:1975 Author Organization [facility] Address [address] [place] [address] Phone Care Team Providers Name Role Phone Unavailable Primary Care Provider Unavailable Reason for Visit Reason Comments Anticoagulation Teachers Assistant 119 Consult/Test/Treat (Routine) - Closed Specialty Diagnoses / Procedures Referred By Contact Refer red To Contact Diagnoses Pelvic ring fracture, closed, initial encounter () Patrice Hollins MD [address] [address] Referral ID Status Reason Start Date Expiration Date Visits Requ ested Visits Authorized [id number] Closed 06/27/2022 06/28/2023 1 1 Encounter Details Date Type Department Care Team Description 07/07/2022 Telemedicine Clinic & Specialty Martin Boyle, PharmD [address] [place] [phone] DVT (deep venous thrombosis) () (Prima ry Dx); Center Internal 1, Isd[place] [address] [place] [address] Pelvic ring fracture, closed, initial en counter () Medicine Clinics [address] [address] Social History Tobacco Use Types Packs/Day Years [...] have Coronavirus/COVID-19? documented as of this encounter Progress Notes Martin Boyle, PharmD - 07/07/2022 3:30 PM CDT Images from the original note were not included. Anticoagulation Clinic PharmD Telephone Progress Note Bertram Moran : 1975 Sex: male Encounter Date: 07/07/2022 Chief Complaint Patient presents with Anticoagulation Summary of Encounter Anticoagulation -- Continue on Xarelto 15mg twice a day for a total of 21 days. Then take Xarelto 20mg daily for a total duration of 3 months. Recommend patient follow up with outside PCP to discuss his medications such as his DM medications. Follow-up: Return if symptoms worsen or fail to improve, for Anticoagulation Follow Up. History of Present Illness Bertram is a 46 y.o. male for whom a targeted medication therapy management visit was done via telephone for anticoagulation management. Bertram completed this telephone encounter with the assistance of [place] telephone surgical garment inspector. CMR Last Completed: N/A Subjective Objective: Anticoagulation: Patient is currently taking Xarelto 15mg twice a day for 21 days (he has about 10 days remaining). He will then transition to 20mg daily with food. Duration of anticoagulation is 3 months for likely provoked DVT in the setting of recent injury/surgery. New patient education provided. C omprehensive medication review was not done today as majority of the time was spent on patient education and counseling. In addition, patient states that he has an outside PCP in [place] who he plans to return to when he feels better. He does have specialty care and appointments at [facility] coming up. He has uncompensated care and therefore his medications are covered. Is it affordable?: Yes Any missed doses?: Denies Any extra doses?: Denies Does the patient need a refill?: No Any recent medical problems, ED visits/hospitalizations?: No Any embolic events (stroke/TIA/DVT/PE)?: No Any signs of bleeding or bruising?: No Any recent falls?: No Any other concerns (uncontrolled hypertension, etc.)?: No Any changes to renal function?: No Is the patient on aspirin or NSAIDs (ibuprofen, naproxen, etc.)?: No Any recent changes in alcohol use?: No Any changes to LFTs?: No Any upcoming procedure or surgery planned?: No Recent Labs Hemoglobin: Lab Results Component Value Date HGB 8.7 (L) 06/27/2022 HGB 9.7 (L) 06/26/2022 HGB 10.2 (L) 06/25/2022 Hematocrit: Lab Results Component Value Date HCT 26.4 (L) 06/27/2022 HCT 29.3 (L) 06/26/2022 HCT 30.6 (L) 06/25/2022 Platelets: Lab Results Component Value Date PLT 497 (H) 06/27/2022 Albumin: No results found for: ALB ALT: No results found for: ALT AST: No results found for: AST Serum Creatinine: Lab Results Component Value Date CR 0.59 (L) 06/27/2022 Patient Education [facility] INTAKE EDUCATION-DOAC 07/07/2022 Discussed reason for taking DOAC Yes Discussed how DOACs work (compare DOAC to Warfarin) No Discussed duration of treatment Yes Discussed how to take DOAC Yes Discussed importance of medication compliance Yes Discussed what to do about a missed dose Yes Discussed medications that can increase risk of bleeding Yes Discussed medication interactions (OTC & RXs) Yes Discussed lab monitoring needed and how often Yes Discussed how to store DOAC No Discussed s/s of bleeding and when to notify clinic Yes Discussed when to seek immediate medical attention Yes Medication Adherence Patient Reported X Missed Doses in the Last 7 Days: 0 Gaps in Refill History Greater than 2 Weeks in the Last 3 Months: no Demonstrates Understanding of Importance of Adherence: yes Informant: patient Reliability of Informant: fairly reliable Estimated Medication Adherence Level: good Adherence Estimation Source: provider Reasons for Non-Adherence: language barrier Other Adherence Tools: None Other Support Networks: None Assessment Plan: Anticoagulation: Patient is tolerating therapy. Currently stable. Emphasized that patient will continue on Xarelto 15mg twice a day for a total of 21 days. After he is done with his currently supply ofthe 15mg tablets, patient instructed to contact pharmacy to fiber picker Xarelto 20mg and take it once a day. He will receive 79 tablets which when he completes will bring him to 3 months of anticoagulationas recommended by inpatient team. He should follow up with his PCP as well. Patient expressed understanding of the information provided. Medications (including any OTC/herbal medications and supplements): Bertram Luisa Medication List Accurate as of July 07, 2022 4:20 PM. Always use your most recent med list. Medications Indication Comments acetaminophen 325 mg tablet 975 mg, Oral, TID Pain Safest to take while on Xarelto. Educated patient to AVOID NSAIDS and ASA. Continue bisacodyl 10 mg suppository Commonly known as: DULCOLAX Unwrap and insert 1 suppository (10 mg) by Rectal route daily as needed for Constipation.Desenvuelva e inserte 1 supositorio (10 mg) por v??a rectal diariamente seg??n sea necesario para el estre??imiento. Constiaption cyclobenzaprine 5 mg Tabs Commonly known as: FLEXERIL Take 1 tablet (5 mg) by mouth 3 times daily. Peralta 1 tableta (5 mg) por la boca 3 veces al mandy. Muscle Spasms Pain GABApentin 400 mg Capsule Commonly known as: NEURONTIN Take 1 capsule (400 mg) by mouth 3 times daily. P[place] 1 capsula (400 mg) por la boca 3 veces al mandy. Pain/Neuropathy glipiZIDE XL 10 mg extended release tablet Commonly known as: GLUCOTROL XL 10 mg, Oral, DAILY Type 2 Diabetes Patient states that he is not taking at the moment. Feels that his blood sugars are controlled Recommend follow up with PCP hydrOXYzine pamoate 25 mg capsule Commonly known as: VISTARIL Take 1-2 capsules (25-50 mg) by mouth every 4 hours as needed (pain adjunct (give with opioid)).Peralta 1-2 c??psulas (25-50 mg) por v??a oral cada 4 horas seg??n sea necesario (complemento para el dolor (administrar con opioide)). Augment pain (given with opioid) melatonin 3 mg tablet Take 1 tablet (3 mg) by mouth at bedtime as needed for Sleep. Peral[place] 1 tableta (3 mg) por la boca a lahora de acostrase. Sleep metFORMIN 1000 mg tablet Commonly known as: GLUCOPHAGE 1,000 mg, Oral, BID WM Type 2 Diabetes Patient states that he is not taking at the moment. Feels that his blood sugars are controlled Recommend follow up with PCP polyethylene glycol 3350 17 gm/scoop powder Commonly known as: MIRALAX/GLUCOLAX Take 17 g by mouth twice daily.Take 1 capful to 17 gm cuate mixed with full glass of water twice every day as directed.Peral[place] 17 g por v??a oral dos veces al d??a. Peral[place] 1 tap??n hasta la minerva de 17 g mezclado con un vaso lleno de agua dos veces al d??a seg??n las indicaciones. Constipation Xarelto 15 mg tablet Generic drug: rivaroxaban Take 1 tablet (15 mg) by mouth twice daily with meals for 21 days. Indications: Blood Clot in a DeepVein. P[place] 1 tableta (15 mg) por v??a oral dos veces al d??a con las comidas jennifer 21 d??as. 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 Blood Clot in a Deep Vein rivaroxaban 20 mg tablet Commonly known as: XARELTO Take 1 tablet (20 mg) by mouth daily with evening meal. Indications: Blood Clot in a Deep Vein.(Peral[place] 1 tableta (20 mg) por v??a oral diariamente con la evonne. 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 Start taking on: July 20, 2022 Blood Clot in a Deep Vein Senexon-S 8.6-50 mg tablet Generic drug: sennosides-docusate sodium Take 1 tablet by mouth twice daily. Peralta 1 tableta por la boca 2 veces al mandy. Constipation sodium chloride 1 gm Tabs Take 2 tablets (2 g) by mouth 4 times daily. TOME DOS TABLETAS ORALMENTE 4 VECES AL MANDY H/O Hyponatremia tamsulosin 0.4 mg Capsule Commonly known as: FLOMAX Take 1 capsule (0.4 mg) by mouth daily after meal.Take 30 minutes after same meal each day. Do NOT crush or chew.Peral[place] 1 c??psula (0,4 mg) por v??a oral todos los d??as despu??s de ethan comida. Peralta 30 minutos despu??s de la misma comida todos los d??as. No triture ni mastique. BPH/Urinary No Interventions Documented No vitals or exam required for Telephone Visit. As the provider for this telephone service, I attest that I introduced myself to the patient, provided my credentials, disclosed my location, and determined that, based on a review of the patient's chart and/or a discussion with members of the patient's treatment team, a telephone visit is an appropriate and effective means of providing this service. The patient and I mutually agree that this visit is appropriate for telephone as well. Originating site (patient location): Home Distant site (telephone provider location): Onsite at [facility] Telephone start time (include am/pm designation): 3:30 PM Telephone end time (include am/pm designation): 4:10 PM Social History Tobacco Use Smoking status: Never Patient Active Problem List Diagnosis Open wound of arm Open wound of arm without complication Fall, initial encounter Pelvic ring fracture, closed, initial encounter () ------- Pharmacy Use Only: Insurance: Pay[place] / Plan[place] [employer] [employer] / Product Type: [place] Fee For Service / Medication Management Type of Medication Management: targeted medication review Referred By: provider Recipient: beneficiary Provider: pharmacist - other Visit Type: follow-up Method of Contact: by telephone Cognitive Ability: normal Cognitive Impairment Status Verified this Year: yes Medications at Visit: does not bring in medications Martin Boyle PharmD, 07/07/2022 4:20 PM documented in this encounter Plan of Treatment Upcoming Encounters Date Type Specialty Care Team Description 07/22/2022 Appointment RADIOLOGY Roosevelt Brown MD [address] [place] [address] Scheduled 1, [place] [address] [place] [address] 07/22/2022 Office Visit ORTHOPEDICS Miri Matthew MD [address] [place] [address] Scheduled 1, [place] [address] [place] [address] 07/22/2022 Office Visit Interventional Radiology Provider, Hesham haq Scheduled 1, [place] [address] [place] [address] 07/25/2022 Appointment RADIOLOGY Patrice Hollins MD [address] [address] Scheduled 1, [place] [address] [place] [address] 07/25/2022 Office Visit NEUROSURGERY Briana aKplan PA -C [address] [place] [address] Scheduled 1, [place] [address] [place] [address] 07/25/2022 Appointment PHYSICAL MEDICINE AND REHAB Lore Aguilar PT Scheduled [address], [place] [address] (Wo rk) 08/05/2022 Appointment ORTHOPEDICS 1, Isd[place] Scheduled [address] [place] [address] 08/05/2022 Appointment RADIOLOGY Roosevelt Brown MD [address] [place] [address] Scheduled 1, [place] [address] [place] [address] 08/05/2022 Appointment RADIOLOGY Roosevelt Brown MD [address] [place] [address] Scheduled 1, Isd[place] [address] [place] [address] 08/05/2022 Office Visit ORTHOPEDICS Roosevelt Bronw MD [address] [place] [address] Scheduled 1, [place] [address] [place] [address] Scheduled Referrals Name Type Priority Associated Diagnoses Order S jovany HAINESSUNITA REFERRAL - Referral Routine Pelvic ring fracture, Ordered: 06/27/2022 DOAC closed, initial encounter () documented as of this encounter Visit Diagnoses Diagnosis DVT (deep venous thrombosis) () - Prim mikala Acute venous embolism and thrombosis of unspecified deep vessels of lower extremity Pelvic ring fracture, closed, initial en counter () documented in this encounter
--- OUTSIDE RECORDS SUMMARY | 2022-07-17 10:13 | XMS_ITS | Encounter Summary ---
:1975 Author Organization [facility] Address [address] [place] [address]. [place] [address] Phone Care Team Providers Name Role Phone Unavailable Primary Care Provider Unavailable Reason for Referral Consult/Test/Treat (Routine) - Closed Specialty Diagnoses / Procedures Referred By Contact Refer red To Contact Diagnoses Pelvic ring fracture, closed, initial encounter () Patrice Hollins MD [address] [place] [id number] Referral ID Status Reason Start Date Expiration Date Visits Requ ested Visits Authorized [id number] Closed 06/27/2022 06/28/2023 1 1 Consult/Test/Treat (Routine) - New Request Specialty Diagnoses / Procedures Referred By Contact Refer red To Contact Internal Medicine / Diagnoses Hyponatremia Type 2 diabetes mellitus without complication, without long-term current use of insulin () Patrice [place]ins MD MEDICINE [address] [place] [id number] Referral ID Status Reason Start Date Expiration Date Visits V isits Requested Authorized [id number] New Request 06/26/2022 06/26/2023 1 1 Consult/Test/Treat (Routine) - New Request Specialty Diagnoses / Procedures Referred By Contact Refer red To Contact Physical Therapy / Diagnoses Fall, initial encounter Pelvic ring fracture, closed, initial encounter () Status post open reduction and internal fixation (ORIF) of fracture Patrice [place] MD PHYSICAL THERAPY [address] [facility] [address] [place] [address] Referral ID Status Reason Start Date Expiration Date Visits V isits Requested Authorized [id number] New Request 06/26/2022 06/26/2023 1 1 Reason for Visit Reason Comments Fall Auth/Cert (Routine) Specialty Diagnoses / Procedures Referred By Contact Refer red To Contact SURGERY Diagnoses Fall, initial encounter Erasmo Gonzalez MD [address] [facility] [address] [place] [address] [phone] 5 [address] [place] [address] Phone: Fax: Referral ID Status Reason Start Date Expiration Date Visits Requ ested Visits Authorized [id number] 1 1 Encounter Details Date Type Department Care Team Description 06/15/2022 - Hospital Encounter [facility] Kingston Castañeda MD [address] [facility] [address] [place], [place] [phone] Fall, initial 06/27/2022 Surgery/Trauma/Neur Patrice [place] MD [address] [facility] [address] [place], [place] [phone] encounter o [address] [place] [address] [address] [place] [address] Social History Tobacco Use Types Packs/Day Years Used Date Smoking Tobacco: Never Alcohol Use Standard Drinks/Week Comments Not Asked 0 (1 standard drink = 0.6 oz pure alcoho l) Sex Assigned at Date Recorded Not on file COVID-19 Exposure Response Date Recorded In the last 10 days, have you been in contact with No / Unsu re 06/15/2022 7:45 PM CDT someone who was confirmed or suspected to have Coronavirus/COVID-19? documented as of this encounter Last Filed Vital Signs Vital Sign Reading Time Taken Comments Blood Pressure 120/74 06/27/2022 3:31 PM CDT Pulse 108 06/27/2022 3:31 PM CDT Temperature 36.7 ??C (98 ??F) 06/27/2022 3:31 PM CDT Respiratory Rate 18 06/27/2022 3:31 PM CDT Oxygen Saturation 100% 06/27/2022 3:31 PM CDT Inhaled Oxygen Concentration - - Weight 92.4 kg (203 lb 12.8 oz) 06/16/2022 1:10 AM CDT Height 165.1 cm (5' 5) 06/16/2022 1:10 AM CDT Body Mass Index 33.91 06/16/2022 1:10 AM CDT documented in this encounter Discharge Summaries Patrice [place] MD - 06/27/2022 5:30 AM CDT Images from the original note were not included. TRAUMA DISCHARGE SUMMARY - PGY 1 Kesha GlassIbisChel : 1975 Sex: male Date of Admission: 06/15/2022 Date of Discharge: 06/27/2022 Disposition: Home Primary care physician: No primary care provider on file. Attending Staff: Patrice [place] MD Significant physician provider(s): Orthopedics Interventional radiology Neurosurgery No Known Drug Allergies ADMISSION DIAGNOSIS: Fall, initial encounter DISCHARGE DIAGNOSIS (include any new and/or incidental findings): Active Problems: -Fall, initial encounter -R Sacral fracture -R acetabular fracture -R inferior pubic rami fx -Rectal hematoma -R distal radial fracture -T12, L1 compression fracture -L2, L3, L5 transverse process fractures -Acute blood loss anemia secondary to trauma and operation -Provoked right lower extremity nonocclusive DVT of the proximal right femoral vein not present on admission -Hyponatremia, acute -Type II diabetes Resolved Problems: -Postoperative urinary retention Incidental Findings: None Operations/Procedures: Date: 06/18/2022 Procedure: Right pelvis closed reduction and trans-sacral pinning, removal of right distal femoral traction pin Date: 06/24/2022 Procedure: Open reduction internal fixation right SI joint HOSPITAL COURSE: Patient is a 46-year-old male admitted on 06/15/2022 after falling off a scaffoldingstructure with an estimated drop of 30 feet. He was found to have numerous injuries that are listed above. Orthopedics and neurosurgery were consulted for these injuries. Neurosurgery recommended a TLSO and this was fitted and upright alignment confirmed. On 06/18 the patient underwent right closed reduction and transsacral pinning with orthopedics and there were no complications. The patient then underwent open reduction and internal fixation of the right SI joint on 06/24 without complication. After the initial procedure, the patient had developed constipation and urinary retention. These both resolved with medication management and intermittent straight catheterization. On discharge he is spontaneously voiding and having bowel movements. The patient's right distal radius fracture was treated nonoperatively and converted to a cast. Proper alignment was confirmed on x-ray evaluation. The patient was found to have a nonocclusive deep venous thrombosis in the proximal right femoral vein on 06/17. He was started on therapeutic heparin while inpatient, he is status post IVC filter placement, and transitioned to enoxaparin prophylactic dosing postoperatively 06/24 and discussion between the trauma and orthopedic surgery teams. He will be discharged with 2 more days of enoxaparin twice daily to be followed by a full 90-day anticoagulation course of rivaroxaban that we will start with 15mg twice daily with food for 21 days followed by the remaining 69 days of 20 mg daily with food. The patient's diabetes was fairly well controlled using sliding scale insulin. He will be dischargedon his medications prior to admission and will need follow- up with PCP. In addition, the patient wasfound to be hyponatremic acutely but was asymptomatic. Workup was equivocal for firm diagnosis. Discharged with salt tabs to replete, will need follow up with PCP to further evaluate and manage. The patient progressed with therapies and pain control on oral regimen. Appropriate DME supplies were obtained by the patient to be safe for discharge. PENDING TESTS RESULTS: None PHYSICAL EXAMINATION: BP 123/71 (Cuff Location: Right Arm) Pulse 107 Temp 36.3 ??C (97.4 ??F) (Axillary) Resp 17 Ht 1.651 m (5' 5) Wt 92.4 kg (203 lb 12.8 oz) SpO2 98% BMI 33.91 kg/m?? Estimated body mass index is 33.91 kg/m?? as calculated from the following: Height as of this encounter: 1.651 m (5' 5). Weight as of this encounter: 92.4 kg (203 lb 12.8 oz). Constitutional: General appearance: well developed, well nourished, no distress Cardiovascular: Heart: Rate: normal Peripheral vascular: pulses: left radial palpable, left posterior tibial palpable Respiratory: Symmetric chest rise, no respiratory distress Gastrointestinal/Abdomen: Abdominal: No tenderness to palpation Musculoskeletal: RUE in cast, LUE and bilateral lower extremities without deformity Neurological: Awake, alert, oriented. No focal deficits appreciated on gross examination In [employer] Needed: yes- [place] [35] PLANNED DISCHARGE ORDERS: Suture/[place]: Location right low back; Removal date: @ next ortho clinic appointment, 2 weeks Wound Care Plan: Not applicable Drains Present: None Lines: None Activity Limitations: Non weight bearing BLE and RUE x10 weeks, elevate RUE Anticoagulation Plan: Enoxaparin 40 mg BID x 2 days, followed by rivaroxaban: 15 mg BID with food for 21 days (start 06/29) and then 20 mg daily with food for 69 days (start 07/20) for full [address] Return to Work Recommendations: To be determined at ortho clinic follow-up appointment. RECOMMENDATIONS AND FOLLOWUP: General: Trauma Surgery: None Primary Care Physician: Follow up 1-2 weeks for diabetes, hyponatremia management Referrals: Outpatient Therapy: PT after weight bearing restrictions lifted READMISSION PLANNED WITHIN 30 DAYS OF DISCHARGE? No Consultants: Orthopaedics: 2 weeks Interventional radiology: 1-2 months for IVC filter Neurosurgery: 6 weeks with UR XR prior DISCHARGE ORDERS DME EXTENDED TUB BENCH Order Notes Ht Readings from Last 1 Encounters: 06/16/22 : 1.651 m (5' 5) Wt Readings from Last 1 Encounters: 06/16/22 : 92.4 kg (203 lb 12.8 oz) Name of Person to Contact:___ Phone Number (if different from home#): ___ Delivery Address (if different from home address): ___ Patient Address: C/o Shawnee Bolivar [address] [place] [address] Question Response Notes Effective date for equipment/supply 06/25/2022 Medical necessity for order (qualifying diagnosis) sacral fracture, right acetabular fracture, T12 compression fracture, right distal radius fracture Length of time equipment/supply needed 12 months Monthly quantity . Vendor Information [employer]; ph: [phone], fx: [phone] XR SPINE THORACOLUMBAR 2 VIEW Question Response Notes Reason for Exam Reassess alignment with orthotic Referral to Physical Therapy Referral to Internal Medicine Anticoag Referral - DOAC Return to work/school letter: Order Notes The nurse may provide the patient with a Return to work or school letter based on the order placed by the provider if the patient requests one. Use the letter activity to generate the appropriate letter. DME WHEELCHAIR JUSTIFICATION Order Notes DME WHEELCHAIR JUSTIFICATION Question Response Notes Effective date for equipment/supply 06/24/2022 Medical necessity for order (qualifying diagnosis) sacral fracture, right acetabular fracture, T12 compression fracture, right distal radius fracture Length of time equipment/supply needed 12 months The beneficiary has a mobility limitation that: (choose all that apply) Significantly impairs his/her ability to participate in one or more mobility- related activities of daily living (MRADLs) such as toileting, feeding, dressing, grooming, and bathing in customary locations in the home. Additionally, a manual wheelchair is medically justified because: (choose all that apply) The beneficiary???s mobility limitation cannot be sufficiently resolved by the use of an appropriately fitted cane or walker. Additionally, a manual wheelchair is medically justified because: (choose all that apply) Use of a manual wheelchair will significantly improve the beneficiary???s ability to participate in MRADLs and the beneficiary will use it on a regular basis in the home. Additionally, a manual wheelchair is medically justified because: (choose all that apply) The beneficiary has not expressed an unwillingness to use the manual wheelchair that is provided in the Home. Additionally, a manual wheelchair is medically justified because: (choose all that apply) The beneficiary has sufficient upper extremity function and other physical and mental capabilities needed to safely self-propel the manual wheelchair that is provided in the home during a typical day. Additionally, a manual wheelchair is medically justified because: (choose all that apply) The beneficiary has a caregiver who is available, willing, and able to provide assistance with the wheelchair Patient has a mobility limitation that significantly impairs his/her ability to participate in one or more mobility-relative activities of daily living (MRADLs) using the toilet Patient has a mobility limitation that significantly impairs his/her ability to participate in one or more mobility-relative activities of daily living (MRADLs) feeding Patient has a mobility limitation that significantly impairs his/her ability to participate in one or more mobility-relative activities of daily living (MRADLs) bathing Monthly quantity . Type Standard 16 wheelchair with elevating leg rest, removable armrests, anti- tippers, 16 cushion DME WHEELCHAIR Order Notes A manual wheelchair is medically necessary because the patient has a mobility limitationthat significantly impairs his/her ability to participate in one or more mobility-relative activities of daily living (MRADLs) such as using the toilet, feeding, dressing, grooming and bathing in customary locations in the home. The patient's mobility limitation cannot be sufficiently resolved by the use of an appropriately fitted cane or walker and the use of manual wheelchair will significantly improve the patient's ability to participate in MRADLs. The patient has expressed a willingness to use the manual wheelchair and there is adequate space and surfaces in the home for the use of a manual whee lchair. The patient has sufficient upper extremity function and other physical and mental capabilities needed to safely self-propel the manual wheelchair. Limitation of strength, endurance, range of motion,coordination, presence of pain, deformity or absence of one or both upper extremities are relevant to the assessment of upper extremity function. and The patient has a caregiver who is available, willing and able to provide assistance with the manual wheelchair. Question Response Notes Effective date for equipment/supply 06/24/2022 Medical necessity for order (qualifying diagnosis) sacral fracture, right acetabular fracture, T12 compression fracture, right distal radius fracture Length of time equipment/supply needed 12 months Monthly quantity . Type Standard 16 wheelchair with elevating leg rest, removable armrests, anti- tippers, 16 cushion Cushion Yes 16 Elevating legrests Yes Removable arms Yes Antitippers Yes Vendor Information [employer]; ph: [phone], fx: [phone] DME JUSTIFICATION OF NEED FOR EXTENDED TUB BENCH Order Notes DME EXTENDED TUB JUSTIFICATION OF NEED ADLs significantly impaired without this equipment. Risk of re-injury Question Response Notes Effective date for equipment/supply 06/25/2022 Medical necessity for order (qualifying diagnosis) sacral fracture, right acetabular fracture, T12 compression fracture, right distal radius fracture Length of time equipment/supply needed 12 months Monthly quantity . Schedule Appointment In Interventional Radiology Clinic Order Notes PLEASE CALL the Patient Access Center at [phone] to schedule the following appointment(s) Question Response Notes Specify time frame 1 Month Reason for Visit? Evaluate need for continued IVC Filtration Provider Type? Any available Provider Clinic Location? Hospital Clinics Specialty: Interventional Radiology Schedule Appointment - [facility] Ortho Cl Order Notes PLEASE CALL the Patient Access Center at [phone] to schedule the following appointment(s) Question Response Notes Specify time frame 2 Weeks Reason for Visit? Post op follow up, hospitalization. S/p ORIF right SI joint Provider Type? Any available Provider Clinic Location? [facility] Specialty: Orthopedics Schedule Appointment in Neurosurgery- [facility] Order Notes Schedule Appointment in Neurosurgery Clinic - [facility] Neurosurgery Clinic Direct Line: [phone] [place] [address] Clinic Hours: 8 AM - 4:30 PM M-F Question Response Notes Specify time frame 6 Weeks Reason for Visit? Follow up T12 and lumbar fractures Provider Type? [facility] Clinic Location? [facility] Specialty: Neurosurgery Imaging? Yes UR XR prior Blood Work? No You were in the hospital to: Order Notes You were in the Radiology Department to have a venogram. You were given contrast (dye) so that the veins could be seen on the xray. Your Radiologist was Roberth Irene DO. For more details about your procedure, please ask your doctor or [facility] When should I be concerned? Order Notes Go to the Emergency Department or call 911 IF: -- blood is coming out of your puncture site fast. Use your hand to apply firm pressure to the site to slow or stop the bleeding until you get medical help -- you are having problems breathing During department hours (8 AM - 4 PM): Call the Radiology department at [phone] After hours or on Holidays: Call the [facility] customer service operator . Ask the customer service operator to page the Interventional Radiologist water pollution specialist. IF: -- hives or new itching the day you received contrast (dye) -- trouble swallowing -- you see or feel a bump or bulging at the puncture site that GROWS. -- your arm or leg is cool, numb, tingling, painful, or changes color -- the puncture site has any signs of infection (increasing redness, swelling, tenderness/pain, warmth, pus, change in appearance). -- your temperature is higher than 101 degrees F and you do not have a cold or flu -- pain deep in the muscle, swelling, aching or tenderness, and/or red or warm skin of a leg It is normal to have: -- A small unchanging bump at the puncture site -- Bruising at the puncture site -- Soreness at the puncture site What appointments do I need after I leave the hospital? Order Notes -- Please keep any appointments made for your primary care provider or the provider thatsent you for this test. You will get the results of your test at the clinic visit. Right Leg Weight Bearing Order Notes No weight bearing: Do not put any weight on your leg/foot. Right Arm Weight Bearing Order Notes -- No weight bearing: Do not put any weight on your affected arm/hand. Left Leg Weight Bearing Order Notes Limit as much weight bearing as possible, may use for pivot transfers. Elevation Order Notes Elevate the right hand above the shoulder Moving around after your hospital visit Order Notes -- Put on the TLSO (back brace) for head of bed > 30 degrees (like sitting up) and out of bed activities. -- Neurosurgery clinic will determine the full length of time you will need the brace Regular diet Order Notes -- Eat a wide variety of foods, including fruits and vegetables, dairy, grains and meats. Consistent Carbohydrate Diet Order Notes -- Carbohydrates include milks, fruits, starches (such as bread, cereal, potatoes and pasta); peas and corn; and sweets and desserts. Eat these foods in moderation. -- Eat balanced meals with fruits, vegetables, starches, meats and milk products. -- Limit foods high in calories like cake, candy, cookies, pie and regular soda. -- Choose sugar-free beverages. -- Eat regular meals and don't skip meals. Caring for your cast: Order Notes -- To reduce swelling and pain in your right arm elevate it on pillows with your hand higher than your shoulder, especially if the right arm has been dependent for an extended period of time. -- Wiggle right fingers frequently to help keep the muscles healthy, reduce edema, enhance circulation, and decrease the risk of disuse syndrome/muscle weakness. -- Exercise all the joints not immobilized by the cast. If you have an arm cast or splint, exercise your shoulder, elbow, thumb, and fingers. -- For the first couple of days apply an ice pack over the injured area for 20 minutes three to fourtimes a day, then as needed for relief of pain and swelling; you can place the ice pack directly over the splint or cast. -- You were given a cast to prevent movement at the fracture site. Unless you were told otherwise, use crutches or a walker and do not put weight on the injured extremity until cleared by your physician to do so. -- Take good care of your cast. A damaged cast can keep the -- Cover any rough edges of the cast with cloth tape or moleskin to prevent rubbing on the skin. -- Do not remove the cast or pull it apart. Do not pick at the padding of the cast. -- Keep the cast completely dry at all times. A wet cast may cause skin problems. -- Bathe with your cast out of the water, protected with a large plastic bag and rubber-banded at the top to keep water out. -- If the cast gets wet, you can dry it with a religion department chair set to cool/warm; call the Orthopaedic Clinic at [phone] if the cast remains soft. -- Cover your cast with a large plastic bag if going out in rainy/snowy weather. -- Itching: The skin may itch under the cast; this is normal and may be irritating, but do not slideanything into your cast to scratch as you may harm your skin and cause an infection. Do not put lotions or powders around the cast or inside of it. -- Do not smoke. It delays bone healing and fracture repair. Caring for your incision. Order Notes Your incision is located on your low back -- You will need to see your doctor to have your sutures removed. -- Your incision was closed with sutures. -- Your incision is covered with dressing. To care for your incision dressing: -- Wash hands before and after changing your dressing. -- Remove the dressing after 5 days (ThursdayJuly 01). -- You may replace the dressing after that time. To care for your incision: -- Wash hands before and after tending to your wound site. -- No showering or bathing until the dressing is removed (keep the dressing dry). -- Do not soak or take a tub bath (no swimming or hot tub) until completely healed. -- OK to shower (without dressing on) starting ThursdayJuly 01, then keep incision dry Caring for your cast: Order Notes -- To reduce swelling and pain in your right arm elevate it on pillows with your hand higher than your shoulder, especially if the right arm has been dependent for an extended period of time. -- Wiggle right fingers frequently to help keep the muscles healthy, reduce edema, enhance circulation, and decrease the risk of disuse syndrome/muscle weakness. -- Exercise all the joints not immobilized by the cast. If you have an arm cast or splint, exercise your shoulder, elbow, thumb, and fingers. -- For the first couple of days apply an ice pack over the injured area for 20 minutes three to fourtimes a day, then as needed for relief of pain and swelling; you can place the ice pack directly over the splint or cast. -- You were given a cast to prevent movement at the fracture site. Unless you were told otherwise, use crutches or a walker and do not put weight on the injured extremity until cleared by your physician to do so. -- Take good care of your cast. A damaged cast can keep the -- Cover any rough edges of the cast with cloth tape or moleskin to prevent rubbing on the skin. -- Do not remove the cast or pull it apart. Do not pick at the padding of the cast. -- Keep the cast completely dry at all times. A wet cast may cause skin problems. -- Bathe with your cast out of the water, protected with a large plastic bag and rubber-banded at the top to keep water out. -- If the cast gets wet, you can dry it with a religion department chair set to cool/warm; call the Orthopaedic Clinic at [phone] if the cast remains soft. -- Cover your cast with a large plastic bag if going out in rainy/snowy weather. -- Itching: The skin may itch under the cast; this is normal and may be irritating, but do not slideanything into your cast to scratch as you may harm your skin and cause an infection. Do not put lotions or powders around the cast or inside of it. -- Do not smoke. It delays bone healing and fracture repair. Your medicines: Order Notes -- It is important that you take the medicines on your list. Work with your health care provider or pharmacist if you have questions about your medicine. Prescribed narcotic pain medicine Order Notes What You Should Know About Opioid (Narcotic) Medicine: -- Your healthcare provider ordered an opioid (narcotic) medicine to treat your pain. -- The goal of your opioid medicine is NOT complete removal of pain. -- The goal is to provide for you a safe and functional life. -- Since opioids do not take away all of your pain, we will tell you of other ways you can control your pain along with the opioid medicine. -- Important information when you are taking opioid medicine: -- It is illegal to drive when you are taking opioid medicine. Even if your doctor told you to takeopioids, you cannot drive. -- This medicine may affect your ability to focus and carry out important activities such as work or parenting. -- Do NOT operate mechanical equipment while taking pain medicines that impair your judgment. -- Do not drink alcohol while using any pain medicine. -- This medicine and all medicines should be kept in a safe place to avoid the risk of theft. -- Keep all medicines, especially opioids, out of the reach of children. -- Constipation is common when taking opioids. Your doctor may order medicine to help with constipation. -- Taking opioid medicine consistently over time may make your body dependent on it. -- If this happens, the medicine should be slowly decreased by your doctor and not stopped suddenly. -- If you stop taking your opioid medicine suddenly, you may feel a flu-like illness. Taper pain medicine Order Notes Suggestions for tapering your pain medicine: -- As your pain decreases, you can go for longer times between doses. Or, take one pill instead of two. -- Take the medicine at the time of the day when you most often feel pain. This may be: when you wake up in the morning, before you start certain activities, or when you are ready for bed. Acetaminophen (Tylenol) Safety Order Notes -- Read all labels for prescription and Fjlf-rjs-kkoepid medicines. Ask the pharmacist if your prescription pain medicine contains acetaminophen. -- Do not take more than one medicine that contains acetaminophen at a time. -- Do not take more of an acetaminophen-containing medicine than directed by your provider. Adults should not take more than 2 tablets at a time and no more than 3000 mg in a 24 hour period. For children, see label or package information or ask a pharmacist, and do not give more than 5 doses in 24 hours. -- Do not drink alcohol when taking medicines that contain acetaminophen. -- Stop taking your medication and seek medical help immediately if you: ---- Think you have taken more acetaminophen than directed ---- Have an allergic reaction such as swelling of the face, mouth, and throat, difficulty breathing, itching, or rash Medication List START taking these medications acetaminophen 325 mg tablet Captree 3 tabletas (975 mg) por la boca 3 veces al porsche. (Take 3 tablets (975 mg) by mouth 3 times daily.) bisacodyl 10 mg suppository Commonly known as: DULCOLAX Unwrap and insert 1 suppository (10 mg) by Rectal route daily as needed for Constipation.Desenvuelva e inserte 1 supositorio (10 mg) por v??a rectal diariamente seg??n sea necesario para el estre??imiento. cyclobenzaprine 5 mg Tabs Commonly known as: FLEXERIL Take 1 tablet (5 mg) by mouth 3 times daily. Captree 1 tableta (5 mg) por la boca 3 veces al porsche. enoxaparin 40 mg/0.4 mL Sosy Commonly known as: LOVENOX Inject 0.4 mL (40 mg) subcutaneously every 12 hours for 3 doses, starting 06/27 at 8:00 PM. Inyecte0,4 ml (40 mg) por v??a subcut??binu cada 12 horas en 4 dosis, a partir del 27/06 a las 20:00. GABApentin 400 mg Capsule Commonly known as: NEURONTIN Take 1 capsule (400 mg) by mouth 3 times daily. Captree 1 capsula (400 mg) por la boca 3 veces al porsche. hydrOXYzine pamoate 25 mg capsule Commonly known as: VISTARIL Take 1-2 capsules (25-50 mg) by mouth every 4 hours as needed (pain adjunct (give with opioid)).Captree 1-2 c??psulas (25-50 mg) por v??a oral cada 4 horas seg??n sea necesario (complemento para el dolor (administrar con opioide)). melatonin 3 mg tablet Take 1 tablet (3 mg) by mouth at bedtime as needed for Sleep. Captree 1 tableta (3 mg) por la boca a lahora de acostrase. oxyCODONE 5 mg tablet Commonly known as: ROXICODONE Captree 1 tableta (5 mg) por la boca cada 4 horas rock sea necesario para el dolor. (Take 1 tablet (5 mg) by mouth every 4 hours as needed for Pain.) polyethylene glycol 3350 17 gm/scoop powder Commonly known as: MIRALAX/GLUCOLAX Take 17 g by mouth twice daily.Take 1 capful to 17 gm cuate mixed with full glass of water twice every day as directed.Captree 17 g por v??a oral dos veces al d??a. Captree 1 tap??n hasta la minerva de 17 g mezclado con un vaso lleno de agua dos veces al d??a seg??n las indicaciones. * Xarelto 15 mg tablet Generic drug: rivaroxaban Take 1 tablet (15 mg) by mouth twice daily with meals for 21 days. Indications: Blood Clot in a DeepVein. Captree 1 tableta (15 mg) por v??a oral dos veces al d??a con las comidas jennifer 21 d??as. 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 Start taking on: June 29, 2022 * rivaroxaban 20 mg tablet Commonly known as: XARELTO Take 1 tablet (20 mg) by mouth daily with evening meal. Indications: Blood Clot in a Deep Vein.(Captree 1 tableta (20 mg) por v??a oral diariamente con la mechanic driver. 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 Captree 1 tableta por la boca 2 veces al porsche. sodium chloride 1 gm Tabs Take 2 tablets (2 g) by mouth 4 times daily. TOME DOS TABLETAS ORALMENTE 4 VECES AL PORSCHE tamsulosin 0.4 mg Capsule Commonly known as: FLOMAX Take 1 capsule (0.4 mg) by mouth daily after meal.Take 30 minutes after same meal each day. Do NOT crush or chew.Captree 1 c??psula (0,4 mg) por v??a oral todos los d??as despu??s de ethan comida. Captree 30 minutos despu??s de la misma comida todos los d??as. No triture ni mastique. * This list has 2 medication(s) that are the same as other medications prescribed for you. Read thedirections carefully, and ask your doctor or other care provider to review them with you. CONTINUE taking these medications glipiZIDE XL 10 mg extended release tablet Generic drug: glipiZIDE XL metFORMIN 1000 mg tablet Commonly known as: GLUCOPHAGE Where to Get Your Medications These medications were sent to [facility] [place] [id number] Hours: 27/04 acetaminophen 325 mg tablet bisacodyl 10 mg suppository cyclobenzaprine 5 mg Tabs enoxaparin 40 mg/0.4 mL Sosy GABApentin 400 mg Capsule hydrOXYzine pamoate 25 mg capsule melatonin 3 mg tablet oxyCODONE 5 mg tablet polyethylene glycol 3350 17 gm/scoop powder rivaroxaban 20 mg tablet Senexon-S 8.6-50 mg tablet sodium chloride 1 gm Tabs tamsulosin 0.4 mg Capsule Xarelto 15 mg tablet Discussed diagnosis and treatment plan with the patient. Patient verbalized understanding of condition and treatment plan. Jorgito Holloway MD 06/27/2022 07:47 FACULTY NOTE I saw and evaluated the patient 06/27/2022. I discussed with the resident and agree with the resident???s findings and plan documented in the resident???s note from above. Any revisions by me are documented. Patrice Hollins M.D., F.A.C.S. [facility] Department of Surgery documented in this encounter Discharge Instructions Discharge Instr - Physical TherapyNeal Phillips PTA - 06/27/2022 9:49 AM CDT Images from the original note were not included. Lower Extremity Isometrics (Pelvic Fracture) Quad Set Slowly tighten muscles on thigh of straight leg while counting out loud to __5__. Repeat with other leg. Repeat _20___ times. Do __3__ sessions per day. Gluteal Sets Squeeze pelvic floor and hold. Tighten bottom. Hold for _5__ seconds. Repeat _20__ times. Do _3__ times a day. Hamstring Set With one leg bent slightly, push heel into bed without bending knee further. Hold __5__ seconds. Alternate legs. Repeat __20__ times. Do __3__ sessions per day. ANKLE: [place] toes down, then up. _20__ reps per set, _3__ sets per day Discharge Instr - Occupational TherapyTheodora Serrano, JACKELIN/Kira - 06/27/2022 8:50 AM CDT Images from the original note were not included. How to Complete Your Self Cares with a TLSO A TLSO (Fftnsfn-Lnoai-Jlfoky-Orthosis) is a brace designed to immobilize your spine during the healing process after an injury to your back or spinal surgery. Your brace should be worn whenever the head of the bed is over 30 degrees or whenever you are out ofbed (unless otherwise stated by your doctor). You can take the brace off if you are lying in bed. Until your doctor says it? s ok, do not twist your back, bend forward, arch your back, or lift >10 pounds. Always wear a T-shirt underneath the brace to protect your skin. Keep your skin clean and dry - change your T-shirt if it gets sweaty or wet. Check your skin whenever you take the brace off to make sure the brace is not irritating your skin. If you have a painful or red area, re-apply the brace and make sure it is fitting properly. If after 1-2 hours the painful or red area does not go away, your brace may need to be adjusted by the orthotic company. Putting Your Brace On You may need someone to help them put the brace on and off. Your therapist will help you learn to put the brace on and off with as little help as possible. The brace should be put on while you are lying flat in bed. ???Log Roll?? to your side (roll onto your side keeping your back straight) and have some place theedge of the brace under your body. Have someone hold the brace in place while you roll onto your back. Make sure the brace is even on both sides of your body and that the waist indentation of the brace is positioned just above the hip bones (they should line up with your belly button). You may have to log roll to your other side to adjust the back of the brace in the correct position; do not bridge (lift your butt off the bed) to adjust the brace! Lying flat on your back, place the top part of the brace OVER the back part. Tighten the straps of the brace, pulling the straps evenly on each side and tightly. The brace should fit snuggly. Taking Your Brace Off Lie flat in bed and undo the straps of the brace. Remove the top portion of the brace. Log roll to the side while someone removes the back portion of the brace. Roll onto your back. Getting in/out of bed With the brace on, log roll onto your side. Bring your legs over the side of the bed. Push up with your arms into a sitting position. Upper Body Dressing Lie flat in bed with the brace off. Pull your shirt over your head and through each arm. Make sure you do not bend or twist your back. Log roll from side to side to pull the shirt down over your torso - do not arch your back to pull your shirt down. Lower Body Dressing With the brace on, sit at the edge of the bed or in a chair. Do not bend forward to put your clotheson. If you are able to bring your leg up over your knee you may safely put on your underwear, pants,socks, and shoes. Showering You must shower with your brace on! Some people find it easier to sponge bathe daily and shower lessfrequently. Lie flat in bed to take the brace off to wash your chest and back. To take a shower: Lie down in bed to remove your brace and shirt. Place the brace back on directly against your skin. When showering, we recommend use a shower chair for safety. Remember: Do not bend forward to wash your lower body (bring your legs up over your knee or use a long handled sponge). After showering, lie down once again to remove the brace. Make sure the brace is completely dry before putting it back on. Some people prefer to shower before bed so they can let the brace air dry overnight. Helpful adaptive equipment (your occupational therapist will help you determine what you need) Extended tub bench Painter Helper Sign Long Handled Sponge Raised Toilet Seat with arms Remember : - No weight on your right arm/hand, no pulling and no pushing with right hand. - No weight on right leg - Pivot transfer ONLY on left leg - No walking - Slow down, think before moving Discharge Instr - Speech Language PathologyTheodora Serrano OTR/L - 06/27/2022 8:50 AM CDT {SINGER BACK TENDER Discharge Instructions:[id number]} AttachmentsThe following attachments cannot be sent through Care Everywhere.Cast Care ([place])Forearm and Wrist Fractures ED ([place])Forearm Fracture Discharge Instructions ([place])Radius Fracture ([place])Radius Fracture Discharge Instructions ([place])Pelvic Fracture Discharge Instructions ([place]) Pelvic Fracture ([place])Fractures ([place])General Trauma Discharge Instructions ([place])Type 2 Diabetes Discharge Instructions ([place])documented in this encounter Medications at Time of Discharge Medication Sig Dispensed Refills Start Date End Date acetaminophen 325 mg Take 3 tablets (975 120 tablet 0 2021 oral tablet mg) by mouth 3 times daily. hydrOXYzine pamoate Take 1-2 capsules 120 capsule 0 06/26/20 (VISTARIL) 25 mg oral (25-50 mg) by mouth capsule every 4 hours as needed (pain adjunct (give with opioid)).Captree 1-2 c??psulas (25-50 mg) por v??a oral cada 4 horas seg??n sea necesario (complemento para el dolor (administrar con opioide)). bisacodyl (DULCOLAX) Unwrap and insert 1 5 suppository 0 10 mg rectal suppository (10 mg) suppository by Rectal route daily as needed for Constipation.Desen vuelva e inserte 1 supositorio (10 mg) por v??a rectal diariamente seg??n sea necesario para el estre??imiento. cyclobenzaprine Take 1 tablet (5 mg) 90 tablet 0 06/26/2022 (FLEXERIL) 5 mg oral by mouth 3 times TABS daily. Captree 1 tableta (5 mg) por la boca 3 veces al porsche. polyethylene glycol Take 17 g by mouth 510 g 0 06/26/20 3350 twice daily.Take 1 (MIRALAX/GLUCOLAX) 17 capful to 17 gm gm/scoop oral powder cuate mixed with full glass of water twice every day as directed.Captree 17 g por v??a oral dos veces al d??a. Captree 1 tap??n hasta la minerva de 17 g mezclado con un vaso lleno de agua dos veces al d??a seg??n las indicaciones. sennosides-docusate Take 1 tablet by 40 each 0 06/26/2022 sodium (STOOL mouth twice daily. SOFTENER/LAXATIVE) Captree 1 tableta por 8.6-50 mg oral tablet la boca 2 veces al porsche. GABApentin (NEURONTIN) Take 1 capsule (400 120 capsule 0 400 mg oral capsule mg) by mouth 3 times daily. Captree 1 capsula (400 mg) por la boca 3 veces al porsche. tamsulosin (FLOMAX) Take 1 capsule (0.4 10 capsule 0 022 0.4 mg oral capsule mg) by mouth daily after meal.Take 30 minutes after same meal each day. Do NOT crush or chew.Captree 1 c??psula (0,4 mg) por v??a oral todos los d??as despu??s de ethan comida. Captree 30 minutos despu??s de la misma comida todos los d??as. No triture ni mastique. melatonin 3 mg oral Take 1 tablet (3 mg) 20 tablet 0 2021 tablet by mouth at bedtime as needed for Sleep. Captree 1 tableta (3 mg) por la boca a la hora de acostrase. sodium chloride 1 gm Take 2 tablets (2 g) 60 tablet 0 06/26 oral TABS by mouth 4 times daily. TOME DOS TABLETAS ORALMENTE 4 VECES AL PORSCHE rivaroxaban (XARELTO) Take 1 tablet (20 69 tablet 0 022 20 mg oral mg) by mouth daily tabletIndications: with evening meal. Deep Vein Thrombosis Indications: Blood Clot in a Deep Vein.(Captree 1 tableta (20 mg) por v??a oral diariamente con la evonne. 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 rivaroxaban (XARELTO) Take 1 tablet (15 42 tablet 0 06/29/ 022 07/20/2022 15 mg oral mg) by mouth twice tabletIndications: daily with meals for Deep Vein Thrombosis 21 days. Indications: Blood Clot in a Deep Vein. Captree 1 tableta (15 mg) por v??a oral dos veces al d??a con las comidas jennifer 21 d??as. 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 metFORMIN (GLUCOPHAGE) Take 1 tablet (1,000 0 1000 mg oral mg) by mouth twice tabletIndications: daily with meals. Type 2 Diabetes Indications: Type 2 Mellitus Diabetes glipiZIDE XL Take 1 tablet (10 0 (GLUCOTROL XL) 10 mg mg) by mouth daily. oral extended release Indications: Type 2 tabletIndications: Diabetes Type 2 Diabetes Mellitus enoxaparin (LOVENOX) Inject 0.4 mL (40 3 each 0 06/27/20 22 06/29/2022 40 mg/0.4 mL Injection mg) subcutaneously SOSY every 12 hours for 3 doses, starting 06/27 at 8:00 PM. Inyecte 0,4 ml (40 mg) por v??a subcut??binu cada 12 horas en 4 dosis, a partir del 27/06 a las 20:00. oxyCODONE (ROXICODONE) Take 1 tablet (5 mg) 30 tablet 0 07/04/2022 5 mg oral tablet by mouth every 4 hours as needed for Pain. documented as of this encounter Progress Notes Crystal Davalos RN - 06/27/2022 5:53 PM CDT DISCHARGE NOTE D: Patient has been discharged. A: (As documented in the Discharge Planning Flowsheet) Discharge Instructions (AVS): AVS given Discharge clothing/valuables: has adequate clothing Discharge medications: patient received medications Home equipment status: equipment issued Home equipment/supplies recommended: (walker) Final discharge destination: Home or self care R: The patient and family understood the AVS. P: Support patient and family if they call back with questions. Theodora Serrano OTR/Kira - 06/27/2022 10:04 AM CDT Occupational Therapy Progress Note 06/27/2022 OT Discharge Recommendations Discharge Recommendations: If recommended supervision/assistance is available, then patient is safe for discharge to home/community/prior residence. (*24 hours supervision/assistance from family at least initially) *Per they can provide 24 hrs assistance. * has been trained and demonstrated to be able to assist pt. Barriers to Discharge (OT): None - barriers are resolved and patient is now safe to DC home from OT standpoint Post Discharge Follow-up: No OT follow-up needs after discharge Supervision / Assistance Recommended (for home DC): Supervision / Assistance recommended for Home DC (OT): Yes Level of supervision recommended (OT): Distant supervision (within voice / hearing distance e.g., inthe same home/building) Physical assistance recommended for (OT): Lower body dressing;Upper body dressing;Toileting;Bathing;Meal preparation Equipment Recommended: Extended tub bench ((family already has a raised toilet seat with arms for toileing)) Equipment Status: Patient/caregivers aware of equipment recommendations and addressing OT In-patient follow-up / recommended referrals: D/C skilled OT services as met goals during session Recommend PM&R consult (OT): Not at this time Precautions/Restrictions: Activity Level: Up in Chair (06/22/22 1200) Spinal Precautions: TLSO if HOB greater than 30 degrees (06/22/22 1200) Weight-bearing Restrictions: Right UE - NWB hand/wrist, OK to weight bear through elbow/forearm withplatform;Left LE - NWB;Right LE - NWB (*.bed to chair with assist, NWB RLE, LLE pivot transfers onlyElevation: RUE) (06/22/22 1200) Complies w/ Weight Bearing?: Yes (with some occasional reminders.) Complies w/ Precautions?: Yes (with some occasional reminders) In Flight Refueling Craftsman Used: No, certified bilingual staff SUBJECTIVE: Cooperative Pain Pain Rating With Activity (Numeric): (not rated numerically-) Location: R side of pelvis/sacrum, avoiding to bear weight on R side when sitting at EOB Participation Significantly Limited?: Yes Action Taken: Nursing aware and addressing OBJECTIVE: Activities of Daily Living Grooming: Modified independence (seated) Toileting: Moderate assist (50% patient effort) Toileting Comments: to manage clothing ( assisting to pull down/up shorts) Able to wipe from sitting Bathing: (Reviewed shower process with and daugther) Upper Body Dressing: Maximal assist (25% patient effort) (* able to don/doff TLSO. Reviewed changing shirt in supine with one hand technique) Upper Body Dressing Comments: to don/doff TLSO- in room and assisting with supervision and 1-2 tips from radio script writer Upper Body Dressing Techniques & Equipment: 1 Handed;TLSO;Patient Ed;Family Education Lower Body Dressing: Maximal assist (25% patient effort) Lower Body Dressing Comments: Mod to don green shorts in supine. Total A to don B socks. able to assist with LB dressing Lower Body Dressing Techniques & Equipment: 1 Handed;Patient Ed;Family Education Functional Mobility Roll Left - FIM: Modified independence Roll Right - FIM: Modified independence Supine to/from Sit - FIM: Modified independence Sit to/from Stand - FIM: Modified independence Sit to/from Stand - Method: From standard seat height;w/o Assistive device Bed to/from W/C - FIM: Modified independence Bed to/from W/C - Method: Bears weight through L LE;Lateral transfer w/o sliding board Toilet Transfer - FIM: Modified independence;Supervision/Stand by assist (* able to remind pt) Toilet Transfer- Method: Grab bar Tub Transfer- FIM: (Educated on tub transfer using a extended tub bench, demonstrated simulating home setting.) Tub Transfer- Method: Extended tub bench Bed to Bathroom- FIM: Dependent (less than 25% patient effort) Bed to Bathroom- Method: Wheelchair Cognition Mental Status: Oriented x 3;Follows 2 step directions;Cooperative;Impulsive (*per pt is impulsive at baseline) Pt and educated on pt slowing down and not rushing. Delirium assessment: Confusion Assessment Method (CAM) Delirium prevention / intervention appears indicated? No. Therapeutic Exercise/Activity Patient / Caregiver Training: Interdisciplinary Communication: RN Pt could go home from OT perspective. ASSESSMENT: present and actively involved in pt's care. Practiced toileting. Reviewed restrictions. Reviewed donning/doffing TLSO.Reviewed recommendations and AE from home. Educated how to fold w/c to load it in the car. Pt can be impulsive at times, per it is patient personality. Reviewed with pt and pt's to do not [place]. Pt could go home with 24 hrs assistance at least initially from . Per she will be able to provide that. has demonstrated to be able to assist pt. PLAN: Discontinue inpatient OT Total treatment time: 40 minutes OT interventions and time spent on each: Self care/Home mgmt/ADL: 25 minutes Functional activity: 15 minutes JACKELIN Cordero/Kira Pager: [email or web address] OT Department Neal Phillips, AUTO CLUTCH REBUILDER - 06/27/2022 9:42 AM CDT Problem: Decreased Transfer Skills Goal: Patient will transfer supine to/from sit Description: Patient will transfer supine to/from sit with (6) Modified [place] in the TLSO w/othe use of his RUE while maintaining WB restriction in order to demonstrate improved function and D/C by 06/28. Outcome: Met Goal: Patient will transfer bed to/from wheelchair Description: Patient will transfer bed to/from wheelchair with (4) Minimal Assistance with sliding board or pivot method with TLSO brace on while maintaining BLE and RUE WB restrictions in order to demonstrate improved function and D/C by 06/28. Outcome: Met Physical Therapy Progress Note PT Discharge Recommendations Discharge Recommendations: Safe for discharge to home/community/prior residence. (with family assist) (06/27/22899) Barriers to discharge to home/community: NA If discharging home, would need: 24 hr physical assistance. Post discharge follow-up: Outpatient PT recommended * (when cleared to ambulate) (06/27/22899) Equipment Status: Team notified of equipment recommendation (06/27/22899) PT Equipment Recommended: Manual wheelchair (pt now has chair in his room.) (06/27/22899) S: when can I go home 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 Mental Status Mental Status: Alert;Cooperative;Follows 3 step directions Follows Directions: Consistently follows commands Restrictions/Precautions Weight Bearing Restrictions: NWB RLE, LLE for transfers only, RUE NWB but OK for platform Complies w/ Weight Bearing?: Yes (with reminders) Precautions: Other;Thoracic Spine Precautions;Lumbar Spine Precautions (TLSO for when OOB or HOB >30 degrees) Complies w/ Precautions?: Yes Vital Signs 06/26/2022 1948 06/27/2022 0000 06/27/2022 0753 BP: 122/69 123/71 113/67 Patient Position for BP: Lying Down Lying Down Lying Down Pulse: 107 -- 81 SpO2: 98 % 98 % 96 % Transfer & Bed Mobility Roll Left - FIM: Modified independent (with use of rail) Roll Right - FIM: Modified independent (with use of rail) Supine to/from Sit - FIM: Stand by assist Bed to/from W/C - FIM: Modified independent Bed to/from W/C - Method: Lateral transfer w/o sliding board Sitting Static Balance Level of Assistance: Independent Trunk Control: Decreased core Stability (minimal use of left U/E.) Dynamic Stability: Interdisciplinary Communication RN: ok to see OT: present for parts of session Fall Risk Assessment: None of the above Positioning: Treatment rendered: Transfer training;Bed mobility training;Positioning Total treatment time: 38 minutes A: upon entry to room pt was lying supine without TLSO. is present and she was able to assist in getting it donned for pt. Pt then able to trasnfer from supine to EOB sit mod (I) with use of bed rail. Pt able to perform a lateral transfer to the L bed to wheelchair mod (I). instructed spouse on the operation of the W/C and how to get the foot pedals on/off. Got a W/C cushion and adjusted the foot pedals for him. OT present and we went over car transfers and recommended they get a sedan for transportation. . Ready to DC home with family assist once medically ready. P: DC pt today as pt is being discharged with family support. Has his own equipment. Neal Phillips PTA 06/27/2022 Pager: [id number] PT Dept Joce Villareal MD - 06/27/2022 5:35 AM CDT Orthopaedic Surgery Progress Note 06/27/2022 Assessment/Plan: Kesha Hill is a 46 y.o. male : Orthopaedic Injuries: Comminuted, complex right vertical shear sacral fracture Right inferior pubic rami fracture with high pubic root fracture Right non-displaced distal radius fracture: Non-op Associated Injuries: 1. T12 compression fx 2. Rectal hematoma Procedures 06/18 CRPP pelvis (DT) 06/24 ORIF R SI joint, possible ORIF pelvis (DT) Plan 06/27/2022 - Dressing change - Plan to convert to cast today then anticipate ok for discharge: Complete Trauma Primary Activity: Bed to chair only with assistance Weight bearing status: NWB RLE x 10 weeks, LLE pivot transfers only Pain management: Transition from IV to PO as tolerated. Antibiotics: Ancef x 24 hours. Diet: Regular DVT prophylaxis: per primary given known DVT, LVX 40 mg BID. Imaging: No further imaging required Labs: Hgb POD#1. Dressings: Keep clean, dry and intact x 2 days, reinforce as needed Physical Therapy/Occupational Therapy: Eval and treat. Follow-up: Clinic with Dr. Brown in 2 weeks AP/inlet/outlet pelvic x-rays needed. Disposition: Pending progress with therapies, pain control on orals, and medical stability. S: NAEEM, AF, VSS, RA. Pain well controlled. No new concerns. O: Vitals: 06/26/22 1300 06/26/22 1507 06/26/22 1948 06/27/22 0000 BP: 118/74 122/69 123/71 Cuff Location: Right Arm Right Arm Right Arm Pulse: 71 84 107 Resp: Temp: 36.3 ??C (97.4 ??F) 36.4 ??C (97.6 ??F) 36.3 ??C (97.4 ??F) TempSrc: Oral Oral Axillary SpO2: 96% 98% 98% Weight: Height: Exam: Gen: No acute distress. Resp: Non-labored breathing RUE: Short arm splint in place, digits wwp, Fires AIN/PIN/IO, SILT m/u/r RLE: Dressing c/d/I. Stable small amount of spotting over island dressing on posterior buttock. HV drain in place. Fires EHL/FHL/Gsc/TA, SILT S/S/SP/DP/T dist, no pain with passive stretch of toes. Toes wwp, compartments soft. Lab Results Component Value Date/Time WBC 13.15 (H) 06/27/2022 0457 WBC 12.28 (H) 06/26/2022 0641 WBC 12.52 (H) 06/25/2022 0551 HGB 8.7 (L) 06/27/2022 0457 HGB 9.7 (L) 06/26/2022 0641 HGB 10.2 (L) 06/25/2022 0551 PLT 497 (H) 06/27/2022 0457 PLT 516 (H) 06/26/2022 0641 PLT 522 (H) 06/25/2022 0551 CR 0.69 (L) 06/26/2022 0641 CR 0.78 06/25/2022 0551 CR 0.62 (L) 06/24/2022 0543 Alpesh Live MD Orthopaedic Surgery, PGY-3 Orthopedic Staff Note: Patient discussed with resident and above documentation reviewed. Agree with daily progress note andcare plan as described above. Joce Villareal MD, 07/01/2022 11:57 PM Orthopedic Dept. Staff Physician Theodora Serrano, OTR/L - 06/26/2022 12:39 PM CDT Occupational Therapy Progress Note 06/26/2022 OT Discharge Recommendations Discharge Recommendations: If recommended supervision/assistance is available, then patient is safe for discharge to home/community/prior residence. (*24 hours supervision/assistance from family.) fromOT perspective and when medically appropriate. * and daughter has been trained. had demonstrated how to assist pt including donning/doffing TLSO, dressing and toileting. *Daughter/ stated they already purchased the extended tub bench for home. They already have a raised toilet seat with arms. *Daughter and reported purchasing a w/c which will arrive on 06/30. Barriers to Discharge (OT): None Post Discharge Follow-up: No OT follow-up needs after discharge Supervision / Assistance Recommended (for home DC): Supervision / Assistance recommended for Home DC (OT): Yes Level of supervision recommended (OT): Distant supervision (within voice / hearing distance e.g., inthe same home/building) Physical assistance recommended for (OT): Lower body dressing;Upper body dressing;Toileting;Bathing;Meal preparation Equipment Recommended: Extended tub bench ((family already has a raised toilet seat with arms for toileing)) Equipment Status: Patient/caregivers aware of equipment recommendations and addressing OT In-patient follow-up / recommended referrals: Continue skilled OT services to achieve the goals on the plan of care / maximize safety and independence with ADL's / IADL's - Recommended Frequency: 5x / week - Anticipated Duration of OT services: will continue to review and increase OOB activity tolerance and w/c sitting tolerance while pt is in the hospital. Does not need to stay in the hospital because OT - Interventions: ADL retraining, activity tolerance, and functional mobility Recommend PM&R consult (OT): Not at this time Precautions/Restrictions: Activity Level: Up in Chair (06/22/22 1200) Spinal Precautions: TLSO if HOB greater than 30 degrees (06/22/22 1200) Weight-bearing Restrictions: Right UE - NWB hand/wrist, OK to weight bear through elbow/forearm withplatform;Left LE - NWB;Right LE - NWB (*.bed to chair with assist, NWB RLE, LLE pivot transfers onlyElevation: RUE) (06/22/22 1200) Complies w/ Weight Bearing?: No (Needs reminders for R UE NWB (ok through elbow) and NWB on B LE - ok for L LE pivot transfer) In Flight Refueling Craftsman Used: No, certified bilingual staff SUBJECTIVE: Cooperative and giving a good effort Pain Pain Rating With Activity (Numeric): (not rated numerically-) Location: R side of pelvis/sacrum, avoiding to bear weight on R side when sitting at EOB Participation Significantly Limited?: Yes Action Taken: Nursing aware and addressing OBJECTIVE: Activities of Daily Living Upper Body Dressing: Maximal assist (25% patient effort) (* donned independently) Upper Body Dressing Comments: to don/doff TLSO- in room and assisting with supervision and 1-2 tips from radio script writer Lower Body Dressing: Maximal assist (25% patient effort) Lower Body Dressing Comments: Mod-Max A to don green shorts in supine. Total A to don B socks. assisted with LB dressing Functional Mobility Roll Left - FIM: Verbal cues;Supervision/Stand by assist Roll Right - FIM: Verbal cues;Supervision/Stand by assist Supine to/from Sit - FIM: Verbal cues;Supervision/Stand by assist Sit to/from Stand - FIM: Verbal cues;Minimal assist (75% patient effort) Sit to/from Stand - Method: From standard seat height;w/o Assistive device Bed to/from W/C - FIM: Supervision/Stand by assist;Modified independence Bed to/from W/C - Method: Standing pivot w/ assistive device;Bears weight through L LE Toilet Transfer - FIM: (*Pt used the toilet using w/c, with assistance from , before OT. Reviewed the easier and safer way to do it in his room and at home simulating home setting.) Toilet Transfer- Method: Grab bar Tub Transfer- FIM: (Educated on tub transfer using a extended tub bench, demonstrated simulating home setting.) Tub Transfer- Method: Extended tub bench Cognition Mental Status: Oriented x 3;Follows 2 step directions;Cooperative Somewhat impulsive, per family baseline. Delirium assessment: Confusion Assessment Method (CAM) Delirium prevention / intervention appears indicated? No. Therapeutic Exercise/Activity Patient / Caregiver Training: Caregiver Training Status (OT): Completed Caregiver Training Comments (OT): 06/26 and daughter present during session. Reviewed toilet transfer using w/c in his room, and simulated toilet and extended tub bench transfers with home setting. Educated on UB dressing and whole shower process. 06/25: Ongoing education with . Pt able to don/doff TLSO by herself. Educated on LB dressing, actively participated. observed a bed <> commode transfer. Disccused AE for toielting and bathing. 06/24 Pt's donned TLSO with SBA. Pt's and daguther present during OT session. Reviewed restrictions. actively participated 06/23: Pt's & dtr present and donning/doffing TLSO with cues. Discussed increasing tolerance for TLSO and only putting weight through R elbow. 06/22 Samia here. Started education how to don/doff TLSO. Discussed possible AE for toileting and bathing, depending if w/c able to fit in bathroom. Bathroom door is 2 ft 2 in wide with door closing/opening going out. Once inside bathroom has a nice size (has pictures). There is a bath tub/shower. Discussed with to address w/c width with PT tomorrow Interdisciplinary Communication: ASSESSMENT: Making progress towards OT goals. Improving functional transfers bed <> w/c and w/c <> toilet. and daughter present during session. Reviewed toilet transfer using w/c in his room, and simulated toilet and extended tub bench transfers with home setting. Educated on UB dressing and whole shower process. and daughter has been trained. had demonstrated how to assist pt including donning/doffing TLSO, dressing and toileting. They already ordered the extended tub bench for home. They already have a raised toilet seat with arms. Daughter and reported purchasing a w/c which will arrive on 06/30. Pt is able to tolerate to sit up in w/c for 1 hour. Educated pt and family to gradually increase TLSO wearing time up to 8 hrs, and sitting tolerance in w/c as able. Pt could go home with 24 hrs supervision/assistance from OT perspective when medically appropriate. This patient will continue to benefit from skilled OT services for ADL retraining and activity tolerance to maximize independence and safety with ADLs. PLAN: Continue skilled OT services to achieve the goals on the plan of care: Plan For Next OT Session: --ADLs: reviewed dressing and toileting. - Reviewed restrictions and recommendations Total treatment time: 38 minutes OT interventions and time spent on each: Self care/Home mgmt/ADL: 23 minutes Functional Activity 15 minutes JACKELIN Cordero/Kira Pager: [id number] OT Department Patrice Hollins MD - 06/26/2022 10:39 AM CDT Trauma SURGERY PROGRESS NOTE - PGY 1 Blue Surgery Kesha Hill : 1975 Sex: male ASSESSMENT/PLAN: 46 y.o.male with history of falling off scaffolding structure with estimated drop of 30 feet. Patient found to have several injuries, listed below. Ortho team and Neurosurgery consulted for fractures. Found to have nonocclusive deep venous thrombosis in his proximal right femoral vein 06/17. On 06/18, patient underwent IVC filter placement and CRPP of pelvis. Due to trauma and hematuria, XR cystogram and CT urogram were obtained and negative for urologic injuries. S/p ORIF of SI joint 06/24 without complication. Progressing well with therapies, working toward disposition plan on stable oral pain control regimen, and possible discharge to home with family help in the next few days. Awaiting DME arrival for safe discharge plan. Know injuries: -R Sacral fracture -R acetabular fracture -R inferior pubic rami fx -T12 compression fracture -Rectal hematoma -R distal radial fracture -L2-L5 transverse process fractures Pelvic Fractures: - Hemoglobin is stable, will continue to monitor - S/p ORIF of SI joint 06/24 R Distal Radius Fracture: - Will need to convert right short arm splint into short arm cast at some point per orthopedics note06/25 T12 Compression and L2-L5 TP Fractures: - TLSO applied for activity restrictions - Uprights showing stable alignment R Lower Extremity DVT: - In discussion with orthopedic surgery, postoperatively will manage using prophylactic dose of enoxaparin for 2 more days then transition to DOAC. - Discussed with pharmacy as patient is declined for MA; application pending for Uncompensated Care program. While pending the patient can have discharge medications approved through our discharge pharmacy. Plan for rivaroxaban 15 mg BID with food for 21 days followed by 20 mg daily with food. Post operative urinary retention, resolved: Possible nerve damage secondary to pelvic fractures, post op complication, with constipation likely contributing. - Tamsulosin 0.4 daily - Spontaneously voiding Hyponatremia, acute Osmolar gap On normal saline 06/16-06/20 with normonatremia. Hyponatremic with corrected sodium since 06/24, appropriate hospitalization blood glucose levels. Discovered before repeat surgical intervention on 06/24, though urine sodium 06/25 is low. Measured serum osmolarity is 299, calculated 276, osm gap of 23. Urine osm normal, not low. Blood pressures, vital signs normal. Euvolemic on exam. Asymptomatic. Tizfyhec4C LR post procedurally 06/24. Has not received significant amounts of medications with active osmolar agents. - Serum lipid panel - Salt tabs, 2g QID - Daily BMP Type II diabetes Diagnosed prior to admission. Controlled blood glucose levels on SSI. Maintenance: Diet: Regular, carb limited Bowel Reg: miralax and senna-docusate daily BID, MoM daily, suppository PRN. Urinary retention resolved, spontaneously voiding Activity - Bed to chair only with assist Weight Bearing: NWB BLE x 10 weeks, LLE pivot transfers only DVT prophylaxis: Continue enoxaparin 40 mg BID, see above for discussion GI prophylaxis: None Pain control: Acetaminophen 975 mg TID, oxycodone 5-10 mg Q4H, flexeril 5mg TID, dilaudid 1 mg/ml Q6H if needed but will wean IV medications today (discussed with nursing) Disposition: Possibly to home pending therapy evaluations and availability of DME, pain control withoral regimen -- Patient should be seen in outpatient IR clinic 1-2 months post placement to discuss timing for filter removal. SUBJECTIVE: S: Patient is doing well this AM. No nausea/vomiting with eating. Voiding spontaneously, no bowel movement since surgery. Ortho planning to remove HV drain today. OBJECTIVE: BP 129/71 (Cuff Location: Right Arm) Pulse 71 Temp 36.6 ??C (97.8 ??F) (Oral) Resp 18 Ht 1.651 m (5' 5) Wt 92.4 kg (203 lb 12.8 oz) SpO2 96% BMI 33.91 kg/m?? GEN - lying in bed, comfortable this morning PULM - non-labored breathing on RA CV - HDS EXT - Moving spontaneously BMP Lab Results Component Value Date/Time NA 131 (L) 06/26/2022 0641 K 4.1 06/26/2022 0641 CHLORIDE 93 06/26/2022 0641 CO2 27 06/26/2022 0641 GLU 151 (H) 06/26/2022 0641 UN 15 06/26/2022 0641 CR 0.69 (L) 06/26/2022 0641 CA 8.9 06/26/2022 0641 CBC Lab Results Component Value Date/Time WBC 12.28 (H) 06/26/2022 0641 RBC 3.46 (L) 06/26/2022 0641 HGB 9.7 (L) 06/26/2022 0641 HCT 29.3 (L) 06/26/2022 0641 PLT 516 (H) 06/26/2022 0641 RADIOLOGY: None Discussed with G2 and Staff. Jorgito Holloway MD, 06/26/2022 10:39 AM RESIDENT WITH STUDENT: Jorgito Holloway MD FACULTY WITH STUDENT: I saw the patient with the medical/DEVAN student 06/26/2022 and performed, or re-performed, the physical exam and medical decision-making in the provision of this service and have verified the accuracy of all the medical student documentation and edited as necessary. Patrice Hollins MD, 06/30/2022 9:13 AM Neal Phillips, AUTO CLUTCH REBUILDER - 06/26/2022 9:03 AM CDT Problem: Decreased Transfer Skills Goal: Patient will transfer supine to/from sit Description: Patient will transfer supine to/from sit with (6) Modified [place] in the TLSO w/othe use of his RUE while maintaining WB restriction in order to demonstrate improved function and D/C by 06/28. Outcome: Met-Continue to follow Goal: Patient will transfer bed to/from wheelchair Description: Patient will transfer bed to/from wheelchair with (4) Minimal Assistance with sliding board or pivot method with TLSO brace on while maintaining BLE and RUE WB restrictions in order to demonstrate improved function and D/C by 06/28. Outcome: Met-Continue to follow Physical Therapy Progress Note PT Discharge Recommendations Discharge Recommendations: If recommended supervision/assistance is available, then patient is safe for discharge to home/community/prior residence (see assessment in note). (needs to pass medically.) (06/26/22799) Barriers to discharge to home/community: Medical Instability If discharging home, would need: 24 hr physical assistance. Post discharge follow-up: Outpatient PT recommended * (when cleared to ambulate) (06/26/22799) Equipment Status: Team notified of equipment recommendation (06/26/22799) PT Equipment Recommended: Manual wheelchair (06/26/22799) S: I am feeling and doing better. 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 Mental Status Mental Status: Alert;Cooperative;Follows 3 step directions Follows Directions: Consistently follows commands Restrictions/Precautions Weight Bearing Restrictions: NWB RLE, LLE for transfers only, RUE NWB but OK for platform Complies w/ Weight Bearing?: Yes (with reminders) Precautions: Other;Thoracic Spine Precautions;Lumbar Spine Precautions (TLSO for when OOB or HOB >30 degrees) Complies w/ Precautions?: Yes Vital Signs 06/26/2022 0000 06/26/2022 0400 06/26/2022 0800 BP: 132/71 123/68 129/71 Patient Position for BP: Lying Down Lying Down Lying Down Pulse: 57 -- 71 SpO2: 96 % 96 % -- Transfer & Bed Mobility Roll Left - FIM: Modified independent Roll Right - FIM: Modified independent Supine to/from Sit - FIM: Stand by assist Bed to/from W/C - FIM: Modified independent Bed to/from W/C - Method: Lateral transfer w/o sliding board Sitting Static Balance Level of Assistance: Independent Trunk Control: Decreased core Stability (minimal use of left U/E.) Dynamic Stability: Interdisciplinary Communication RN: pt is up to chair and schedule to stay in chair for 1-2 hours. PT: POC Fall Risk Assessment: None of the above Positioning: Geomatt Cushion Treatment rendered: Transfer training;Bed mobility training;Positioning Total treatment time: 45 minutes A: upon entry to room pt was lying supine without TLSO. Pt able to roll to his left well but limitedto his right. Able to roll well enough to get a gown change and to asif the TLSO. Pt then able to trasnfer from supine to EOB sit mod (I) with use of bed rail. States that he has a portable bed rail athome from his 's previous surgery. Then able to sit at EOB (I) with occasional use of left U/E. Pt able to perform a lateral transfer to the L bed to wheelchair mod (I). Set up the W/C with a cushion and fitting of foot pedals in attempt to help pt manage 1-2 hours of sitting up. Will return in a hour to check on pt. Pt did pass his two goals today. Ready to DC home with family assist once medically ready. P: Patient will be seen 5-7x/week until goals are met or patient is discharged. Next visit the plan is to work on bed mobility, transfers to/from wheelchair with assisting with wheelchair set-up and management. Increase tolerance for sitting. AUTO CLUTCH REBUILDER Appropriate: Yes Neal Phillips, SKYLER 06/26/2022 Pager: [facility] Chintan Valadez MD - 06/26/2022 6:17 AM CDT Orthopaedic Surgery Progress Note 06/26/2022 Assessment/Plan: Kesha Hill is a 46 y.o. male : Orthopaedic Injuries: Comminuted, complex right vertical shear sacral fracture Right inferior pubic rami fracture with high pubic root fracture Right non-displaced distal radius fracture: Non-op Associated Injuries: 1. T12 compression fx 2. Rectal hematoma Procedures 06/18 CRPP pelvis (DT) 06/24 ORIF R SI joint, possible ORIF pelvis (DT) Plan 06/26/2022 - HV drain to remain in place until <30 cc per shift: 5 for shift prior to midnight, 0 overnight.Will pull today. - am Hb pending Trauma Primary Activity: Bed to chair only with assistance Weight bearing status: NWB RLE x 10 weeks, LLE pivot transfers only Pain management: Transition from IV to PO as tolerated. Antibiotics: Ancef x 24 hours. Diet: Regular DVT prophylaxis: per primary given known DVT, LVX 40 mg BID. Imaging: No further imaging required Labs: Hgb POD#1. Dressings: Keep clean, dry and intact x 2 days, reinforce as needed Physical Therapy/Occupational Therapy: Eval and treat. Follow-up: Clinic with Dr. Brown in 2 weeks AP/inlet/outlet pelvic x-rays needed. Disposition: Pending progress with therapies, pain control on orals, and medical stability. S: NAEON, AF, VSS, RA. Pain well controlled. No new concerns. O: Vitals: 06/25/22 1600 06/25/22 1903 06/26/22 0000 06/26/22 0400 BP: 137/88 131/83 132/71 123/68 Cuff Location: Right Arm Right Arm Right Arm Pulse: 114 73 57 Resp: Temp: 37.4 ??C (99.3 ??F) 36.7 ??C (98 ??F) 37.3 ??C (99.1 ??F) TempSrc: Oral Oral Oral SpO2: 98% 96% 96% Weight: Height: Exam: Gen: No acute distress. Resp: Non-labored breathing RUE: Short arm splint in place, digits wwp, Fires AIN/PIN/IO, SILT m/u/r RLE: Dressing c/d/I. Stable small amount of spotting over island dressing on posterior buttock. HV drain in place. Fires EHL/FHL/Gsc/TA, SILT S/S/SP/DP/T dist, no pain with passive stretch of toes. Toes wwp, compartments soft. Lab Results Component Value Date/Time WBC 12.52 (H) 06/25/2022 0551 WBC 11.29 (H) 06/24/2022 0543 WBC 10.55 (H) 06/22/2022 0525 HGB 10.2 (L) 06/25/2022 0551 HGB 12.0 (L) 06/24/2022 0543 HGB 10.1 (L) 06/22/2022 0525 PLT 522 (H) 06/25/2022 0551 PLT 527 (H) 06/24/2022 0543 PLT 378 06/22/2022 0525 CR 0.78 06/25/2022 0551 CR 0.62 (L) 06/24/2022 0543 CR 0.63 (L) 06/20/2022 0557 Alpesh Live MD Orthopaedic Surgery, PGY-3 Orthopedic Staff Note: Patient discussed with resident and above documentation reviewed. Agree with daily progress note andcare plan as described above. Chintan Valadez MD, 06/26/2022 7:18 AM Orthopedic Dept. Staff Physician Alize Stevens, PT - 06/25/2022 1:58 PM CDT Physical Therapy Progress Note PT Discharge Recommendations Discharge Recommendations: Safety risk for discharge home today. Anticipate functional limitations will be resolved/addressed (see assessment in note). (Anticipate 1-2 additional sessions to clear for home with family support) (06/25/22 1354) Barriers to discharge to home/community: Insufficient Level of Supervision/Assist, Pain, and Decreased Activity Tolerance If discharging home, would need: assistance PRN - from . Post discharge follow-up: Outpatient PT recommended * (when cleared to ambulate) (06/25/22 1354) Equipment Status: Team notified of equipment recommendation (06/25/22 1354) PT Equipment Recommended: Manual wheelchair (06/25/22 1354) S: I have a little more pain today compared to yesterday, but I can still get up. 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 Mental Status Mental Status: Alert;Cooperative;Follows 3 step directions Follows Directions: Consistently follows commands Restrictions/Precautions Weight Bearing Restrictions: NWB RLE, LLE for transfers only, RUE NWB but OK for platform Complies w/ Weight Bearing?: Yes (with reminders) Precautions: Other;Thoracic Spine Precautions;Lumbar Spine Precautions (TLSO for when OOB or HOB >30 degrees) Complies w/ Precautions?: Yes Vital Signs 06/24/2022 2347 06/25/2022 0406 06/25/2022 0709 BP: -- 131/74 124/80 Patient Position for BP: Lying Down Lying Down Lying Down Pulse: -- 106 105 SpO2: -- 97 % 98 % Transfer & Bed Mobility Roll Left - FIM: Modified independent Roll Right - FIM: Modified independent Supine to/from Sit - FIM: Moderate assist ( assisted pt) Bed to/from W/C - FIM: Stand by assist (to the left only x 2 trials, bed-to-w/c and w/c-to-bed) Bed to/from W/C - Method: Lateral transfer w/o sliding board Other (comment): ( able to demo safe and proper donning of TLSO while pt supine in bed using logroll technique) Sitting Static Balance Level of Assistance: Verbal cues/Increased Time Trunk Control: Leans to Left (initially leaning to the L but able to self- correct with verbal cues) Interdisciplinary Communication RN: pt needs a larger room but is moving very well so far Fall Risk Assessment: None of the above Treatment rendered: Transfer training;Bed mobility training;Positioning;Wheelchair management/propulsion training Total treatment time: 30 minutes A: Pt was lying supine without TLSO on upon arrival but alert, present. He was eager to participate. Pt's had a good recollection of how to assist pt with donning/doffing the TLSO from previous therapy sessions and performed the majority of this process without assistance by PT. She also assisted pt with [id number] transfer. Pt required just standby assist for lateral transfer to the L to get into the wheelchair. Once in the wheelchair, however, he reported increased R side low back/pelvic pain and did not want to be wheeled around in the hallway and instead wanted to transfer back to bed. He appears to be a session or two away from being able to d/c home. P: Patient will be seen 5-7x/week until goals are met or patient is discharged. Next visit the plan is to work on bed mobility, transfers to/from wheelchair with assisting with wheelchair set-up and management. 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 Outcome: In progress Goal: Patient will transfer bed to/from wheelchair Description: Patient will transfer bed to/from wheelchair with (4) Minimal Assistance with sliding board or pivot method with TLSO brace on while maintaining BLE and RUE WB restrictions in order to demonstrate improved function and D/C by 06/28. Outcome: In progress Problem: Decreased Transfer Skills Goal: Patient will roll Description: Patient will be able to roll with (6) Modified [place] using log roll technique w/o the use of his RUE while maintaining both spinal and WB restrictions in order to demonstrate improved function and D/C by 06/28. Outcome: Met Theodora Serrano, OTR/L - 06/25/2022 10:56 AM CDT Occupational Therapy Progress Note 06/25/2022 OT Discharge Recommendations Discharge Recommendations: Safety risk for discharge home today. Anticipate functional limitations will be resolved/addressed (see assessment in note). (~ 1 or 2 more days) Barriers to Discharge (OT): Pain limiting ability to participate in ADL's / IADL's;Activity tolerance limiting ability to participate in ADL's / IADL's;Motor/physical impairments pose safety risk for DC home Post Discharge Follow-up: No OT follow-up needs after discharge Supervision / Assistance Recommended (for home DC): Supervision / Assistance recommended for Home DC (OT): Yes Level of supervision recommended (OT): Distant supervision (within voice / hearing distance e.g., inthe same home/building) Physical assistance recommended for (OT): Lower body dressing;Upper body dressing;Toileting;Bathing;Meal preparation Equipment Recommended: Extended tub bench ((family already has a raised toilet seat with arms for toileing)) Equipment Status: Clinical coordinator notified of AE recommendations OT In-patient follow-up / recommended referrals: Continue skilled OT services to achieve the goals on the plan of care / maximize safety and independence with ADL's / IADL's - Recommended Frequency: 5x / week - Anticipated Duration of OT services: 1-2 more sessions - Interventions: ADL retraining, activity tolerance, and functional mobility Recommend PM&R consult (OT): Not at this time Precautions/Restrictions: Activity Level: Up in Chair (06/22/22 1200) Spinal Precautions: TLSO if HOB greater than 30 degrees (06/22/22 1200) Weight-bearing Restrictions: Right UE - NWB hand/wrist, OK to weight bear through elbow/forearm withplatform;Left LE - NWB;Right LE - NWB (*.bed to chair with assist, NWB RLE, LLE pivot transfers onlyElevation: RUE) (06/22/22 1200) Complies w/ Weight Bearing?: No (Needs reminders for R UE NWB (ok through elbow) and NWB on B LE - ok for L LE pivot transfer) In Flight Refueling Craftsman Used: No, certified bilingual staff SUBJECTIVE: Cooperative and giving a good effort [place], no [place] Look I could not turn to the right Pain Pain Rating With Activity (Numeric): (not rated numerically- in R side when sitting EOB with brace donned) Location: R side of pelvis/sacrum, avoiding to bear weight on R side when sitting at EOB Participation Significantly Limited?: Yes Action Taken: Nursing aware and addressing OBJECTIVE: Activities of Daily Living Upper Body Dressing: Maximal assist (25% patient effort) (* donned independently) Upper Body Dressing Comments: to don/doff TLSO- in room and assisting with supervision and 1-2 tips from radio script writer Lower Body Dressing: Maximal assist (25% patient effort) Lower Body Dressing Comments: Mod-Max A to don green shorts in supine. Total A to don B socks. assisted with LB dressing Functional Mobility Roll Left - FIM: Verbal cues;Supervision/Stand by assist Roll Right - FIM: Verbal cues;Supervision/Stand by assist Supine to/from Sit - FIM: Verbal cues;Supervision/Stand by assist Sit to/from Stand - FIM: Verbal cues;Minimal assist (75% patient effort) Sit to/from Stand - Method: From standard seat height;w/o Assistive device Toilet Transfer - FIM: Minimal assist (75% patient effort);Verbal cues Toilet Transfer- Method: Bedside commode Cognition Mental Status: Oriented x 3;Follows 2 step directions;Cooperative Delirium assessment: Confusion Assessment Method (CAM) Delirium prevention / intervention appears indicated? No. Therapeutic Exercise/Activity Sat at EOB for ~ 10 minutes with SBA, able to bear weight on R side of pelvis/sacrum Patient / Caregiver Training: Caregiver Training Status (OT): In progress Caregiver Training Comments (OT): 06/25: Ongoing education with . Pt able to don/doff TLSO by herself. Educated on LB dressing, actively participated. observed a bed <> commode transfer. Disccused AE for toielting and bathing. 06/24 Pt's donned TLSO with SBA. Pt's and yuryuther present during OT session. Reviewed restrictions. actively participated 06/23: Pt's & dtr present and donning/doffing TLSO with cues. Discussed increasing tolerance for TLSO and only putting weight through R elbow. 06/22 Samia here. Started education how to don/doff TLSO. Discussed possible AE for toileting and bathing, depending if w/c able to fit in bathroom. Bathroom door is 2 ft 2 in wide with door closing/opening going out. Once inside bathroom has a nice size (has pictures). There is a bath tub/shower. Discussed with to address w/c width with PT tomorrow Interdisciplinary Communication: RN: ok to see pt, pt performance, able to don/doff TLSO by herself Clinical Coordinator: Will need an extended tub bench ASSESSMENT: Making progress towards OT goals. Able to roll to the right side much better than beforesurgery. Overall rolling well to the sides with cueing. able to don/doff TLSO by herself. Educated on LB dressing. Pt tolerated to sit at EOB with SBA. observed a bed <> commode transfer with A of 1. Reviewed restrictions with and pt, and discussed AE for toileting and bathing. They have a raised toilet seat with arms. They will need an extended tub bench for showers - CC notified. Family will decide soon if they are going home, or they will rent a place that would be more w/c accessible. This patient will continue to benefit from skilled OT services for ADL retraining, activity tolerance, and functional mobility to maximize independence and safety with ADLs. PLAN: Continue skilled OT services to achieve the goals on the plan of care: Plan For Next OT Session: --ADLs: UB dressing compensatory strategies - donning/doffing shirt underneath brace --Functional Mobility/Transfers: Toilet/commode transfer technique - to practice Total treatment time: 38 minutes OT interventions and time spent on each: Self care/Home mgmt/ADL: 23 minutes Functional activity: 15 minutes JACKELIN Cordero/Kira Pager: [facility] Patrice Hollins MD - 06/25/2022 8:18 AM CDT Trauma SURGERY PROGRESS NOTE - PGY 1 Blue Surgery Kesha CoombsTanya : 1975 Sex: male ASSESSMENT/PLAN: 46 y.o.male with history of falling off scaffolding structure with estimated drop of 30 feet. Patient found to have several injuries, listed below. Ortho team and Neurosurgery consulted for fractures. Found to have nonocclusive deep venous thrombosis in his proximal right femoral vein 06/17. On 06/18, patient underwent IVC filter placement and CRPP of pelvis. Due to trauma and hematuria, XR cystogram and CT urogram were obtained and negative for urologic injuries. S/p ORIF of SI joint 06/24 without complication. On 06/25, patient doing well and no acute events overnight. Know injuries: -R Sacral fracture -R acetabular fracture -R inferior pubic rami fx -T12 compression fracture -Rectal hematoma -R distal radial fracture -L2-L5 transverse process fractures Pelvic Fractures: - Hemoglobin is stable, will continue to monitor - S/p ORIF of SI joint 06/24 R Distal Radius Fracture: - Will need to convert right short arm splint into short arm cast at some point per orthopedics note06/25 T12 Compression and L2-L5 TP Fractures: - TLSO applied for activity restrictions - Uprights showing stable alignment R Lower Extremity DVT: - In discussion with orthopedic surgery, postoperatively will manage using prophylactic dose of enoxaparin for 3 more days then transition to DOAC. - Discussed with pharmacy, will first get SW/CC input to better understand financial situation to determine coverage and where there may be a gap to completely cover 90 days of full anticoagulation Post operative urinary retention, resolved: Possible nerve damage secondary to pelvic fractures, post op complication, with constipation likely contributing. - Tamsulosin 0.4 daily - Spontaneously voiding Hyponatremia, acute Found 06/24 coinciding with LR mntc fluids while NPO for planned surgery. Could represent dilution given he received 2L. Euvolemic on exam. - Urine sodium and osmolality - Serum osmolality Maintenance: Diet: Regular Bowel Reg: miralax and senna-docusate daily BID, MoM daily, suppository PRN. Urinary retention resolved, spontaneously voiding Activity - Bed to chair only with assist Weight Bearing: NWB BLE x 10 weeks, LLE pivot transfers only DVT prophylaxis: Continue enoxaparin 40 mg BID, see above for discussion GI prophylaxis: None Pain control: Acetaminophen 975 mg TID, dilaudid 1 mg/ml Q4H, oxycodone 5-10 mg Q4H, flexeril 5mg TID Disposition: will be difficult as patient is w/o insurance -- Patient should be seen in outpatient IR clinic 1-2 months post placement to discuss timing for filter removal. SUBJECTIVE: S: Patient is doing well this AM, reporting minimal pain from surgery with orthopedics on 06/24. Excited about how he felt during PT today. No nausea/vomiting with eating. Voiding spontaneously, no bowel movement since surgery. OBJECTIVE: BP 139/90 (Cuff Location: Right Arm) Pulse 110 Temp 37.4 ??C (99.4 ??F) (Oral) Resp 18 Ht 1.651 m (5' 5) Wt 92.4 kg (203 lb 12.8 oz) SpO2 98% BMI 33.91 kg/m?? GEN - lying in bed, comfortable this morning PULM - non-labored breathing on RA CV - HDS EXT - Moving spontaneously BMP Lab Results Component Value Date/Time NA 131 (L) 06/25/2022 0551 K 4.5 06/25/2022 0551 CHLORIDE 94 06/25/2022 0551 CO2 28 06/25/2022 0551 GLU 144 (H) 06/25/2022 0551 UN 19 06/25/2022 0551 CR 0.78 06/25/2022 0551 CA 9.1 06/25/2022 0551 CBC Lab Results Component Value Date/Time WBC 12.52 (H) 06/25/2022 0551 RBC 3.62 (L) 06/25/2022 0551 HGB 10.2 (L) 06/25/2022 0551 HCT 30.6 (L) 06/25/2022 0551 PLT 522 (H) 06/25/2022 0551 RADIOLOGY: None Discussed with G2 and Staff. Alize Herrera, , 06/25/2022 8:18 AM RESIDENT WITH STUDENT: Jorgito Holloway MD FACULTY WITH STUDENT: I saw the patient with the medical/DEVAN student 06/25/2022, and performed, or re-performed, the physical exam and medical decision-making and have verified the accuracy of all the medical student documentation and edited as necessary. Patrice Hollins MD, 06/30/2022 9:12 AM Dianna Mendes MD - 06/25/2022 5:54 AM CDT Orthopaedic Surgery Progress Note 06/25/2022 Assessment/Plan: Kesha Hill is a 46 y.o. male : Orthopaedic Injuries: Comminuted, complex right vertical shear sacral fracture Right inferior pubic rami fracture with high pubic root fracture Right non-displaced distal radius fracture: Non-op Associated Injuries: 1. T12 compression fx 2. Rectal hematoma Procedures 06/18 CRPP pelvis (DT) 06/24 ORIF R SI joint, possible ORIF pelvis (DT) Plan 06/25/2022 - Please hold heparin gtt until discussion between ortho and trauma - Will need to convert right short arm splint into short arm cast at some point - HV drain to remain in place until <30 cc per shift: 45 for shift prior to midnight, 30 overnight; likely pull tomorrow - am Hb pending Trauma Primary Activity: Bed to chair only with assistance Weight bearing status: NWB RLE x 10 weeks, LLE pivot transfers only Pain management: Transition from IV to PO as tolerated. Antibiotics: Ancef x 24 hours. Diet: Regular DVT prophylaxis: per primary given known DVT, will need to discuss with trauma surgery regarding their plan. Imaging: No further imaging required Labs: Hgb POD#1. Dressings: Keep clean, dry and intact x 2 days, reinforce as needed Physical Therapy/Occupational Therapy: Eval and treat. Follow-up: Clinic with Dr. Brown in 2 weeks AP/inlet/outlet pelvic x-rays needed. Disposition: Pending progress with therapies, pain control on orals, and medical stability. S: MERCEDESEON, AF, VSS, RA. Pain well controlled. No new concerns. O: Vitals: 06/24/22 1841 06/24/22201706/24/22 2347 06/25/22 0406 BP: 116/73 120/72 131/74 Cuff Location: Left Arm Right Arm Left Arm Pulse: 105 103 106 Resp: Temp: 36.4 ??C (97.5 ??F) 35.8 ??C (96.4 ??F) TempSrc: Axillary Oral SpO2: 95% 97% 97% Weight: Height: Exam: Gen: No acute distress. Resp: Non-labored breathing RUE: Short arm splint in place, digits wwp, Fires AIN/PIN/IO, SILT m/u/r RLE: Dressing c/d/I. Small amount of spotting over island dressing on posterior buttock. HV drain inplace. Fires EHL/FHL/Gsc/TA, SILT S/S/SP/DP/T dist, no pain with passive stretch of toes. Toes wwp, compartments soft. Lab Results Component Value Date/Time WBC 11.29 (H) 06/24/2022 05 WBC 10.55 (H) 06/22/2022524 WBC 7.23 06/20/2022 0557 HGB 12.0 (L) 06/24/2022542 HGB 10.1 (L) 06/22/202225 HGB 9.0 (L) 06/20/2022556 PLT 527 (H) 06/24/2022 0543 PLT 378 06/22/2022 0525 PLT 266 06/20/2022 0557 CR 0.62 (L) 06/24/2022 0543 CR 0.63 (L) 06/20/2022 0557 CR 0.61 (L) 06/19/2022 0515 Alpesh Live MD Orthopaedic Surgery, PGY-3 Faculty Note: I discussed with the resident and agree with the resident's findings and plan as documented in the resident's note. Modifications done above as necessary. Lovenox confirmed. Filed Vitals: 06/24/22 2018 06/24/22 2347 06/25/22 0406 06/25/22 0709 BP: 120/72 131/74 124/80 Pulse: 103 106 105 Resp: Temp: 36.4 ??C (97.5 ??F) 35.8 ??C (96.4 ??F) 35.7 ??C (96.2 ??F) Lab Results Component Value Date/Time WBC 12.52 (H) 06/25/2022 0551 RBC 3.62 (L) 06/25/2022 0551 HGB 10.2 (L) 06/25/2022 0551 HCT 30.6 (L) 06/25/2022 0551 PLT 522 (H) 06/25/2022 0551 MCV 84.5 06/25/2022 0551 MCH 28.2 06/25/2022 0551 MCHC 33.3 06/25/2022 0551 RDW 13.3 06/25/2022 0551 MPV 9.7 06/25/2022 0551 NEUTNO 10.31 (H) 06/15/2022 192 LYMPHAB 2.74 06/15/2022 192 MONOABSNO 0.67 06/15/2022 192 EOSNUMB 0.20 06/15/2022 192 BASO 0.03 06/15/2022 192 Lab Results Component Value Date/Time PT 13.9 (H) 06/22/2022 1053 APTT 21.4 (L) 06/15/2022 192 INR 1.2 (H) 06/22/2022 1053 Current Facility-Administered Medications Medication Route Frequency enoxaparin (LOVENOX) 40 mg/0.4 mL injection 40 mg Subcutaneous q12h ceFAZolin (ANCEF) IVPB 2 g Intravenous Pre-Op PRN once may repeat tamsulosin (FLOMAX) capsule 0.4 mg Oral daily PC FLEET enema 118 mL Rectal once prn melatonin tablet 3 mg Oral hs prn polyethylene glycol 3350 (MIRALAX;GLYCOLAX) packet 17 g Oral bid sennosides-docusate sodium (STOOL SOFTENER/LAXATIVE) 8.6-50 mg tablet 1 tablet Oral bid milk of magnesia 400 mg/5 mL suspension 30 mL Oral daily GABApentin (NEURONTIN) capsule 400 mg Oral tid cyclobenzaprine (FLEXERIL) tablet 5 mg Oral tid acetaminophen tablet 975 mg Oral tid oxyCODONE (ROXICODONE) tablet 5-10 mg Oral q4h prn ondansetron (ZOFRAN) tablet 4 mg Oral q6h prn insulin ASPART (NovoLOG) FlexPen Subcutaneous tid AC insulin ASPART (NovoLOG) FlexPen Subcutaneous hs mr x1 hydrOXYzine (ATARAX;VISTARIL) tablet 25-50 mg Oral q4h prn HYDROmorphone PF (DILAUDID) 1 mg/mL injection 0.5 mg IV Push q4h prn bisacodyl (DULCOLAX) suppository 10 mg Rectal daily prn naloxone (NARCAN) 0.4 mg/mL injection 0.4 mg IV Push once prn normal saline flush 0.9 % solution 10 mL IV Push q12h normal saline flush 0.9 % solution 10 mL IV Push q5 min prn Dianna Mendes MD, 06/25/2022 10:54 AM Orthopaedics Charlene Lindo, PT - 06/24/2022 12:39 PM CDT Physical Therapy Progress Note PT Discharge Recommendations Discharge Recommendations: Safety risk for discharge home today. Anticipate functional limitations will be resolved/addressed (see assessment in note). (Anticipate 1-2 additional sessions to clear for home with family support) (06/24/22 1100) Barriers to discharge to home/community: Pain, Decreased Activity Tolerance, and Weightbearing Status limiting mobility If discharging home, would need: 24 hr physical assistance. Post discharge follow-up: Outpatient PT recommended * (when cleared to ambulate) (06/24/22 1100) Equipment Status: Team notified of equipment recommendation (06/24/22 1100) PT Equipment Recommended: Manual wheelchair (06/24/22 1100) S: Pt reports It feels good to be out of the room and sitting in a chair. Pain Pain Rating With Activity (Numeric): 7 (back) Participation Significantly Limited?: No Intervention: Positioning;Other (RN notified pt received pain meds about 30 minutes prior to arrival) O: In Flight Refueling Craftsman Used: No, certified bilingual staff Name or Reference Number (phone): [id number] Mental Status Mental Status: Alert;Cooperative;Follows 1 step direction Follows Directions: Consistently follows commands Delirium Assessment - CAM Short (Confusion Assessment Method) Acute onset OR fluctuating course: No CAM result: Negative Restrictions/Precautions Weight Bearing Restrictions: NWB RLE, LLE for transfers only, RUE NWB but OK for platform Complies w/ Weight Bearing?: Yes (with reminders) Precautions: Other;Thoracic Spine Precautions;Lumbar Spine Precautions (TLSO for when OOB or HOB >30 degrees) Complies w/ Precautions?: Yes Vital Signs 06/24/2022 0353 06/24/2022 0720 06/24/2022 1052 BP: 131/89 130/82 132/85 Patient Position for BP: Lying Down Lying Down Lying Down Pulse: 96 94 88 SpO2: 96 % -- 97 % Transfer & Bed Mobility Roll Left - FIM: Stand by assist Roll Right - FIM: Stand by assist Supine to/from Sit - FIM: Moderate assist (at trunk) Bed to/from W/C - FIM: Moderate assist (to the left only x 2 trials) Bed to/from W/C - Method: Lateral transfer w/o sliding board Other (comment): ( able to demo safe and proper donning of TLSO while pt supine in bed using logroll technique) Wheelchair Mobility Type of Chair: Standard (16) Distance (m): 50 m Obstacles Course: none Wheelchair Propulsion - FIM: Total (dependent) (Pt is NWB RLE, LLE for transfers only and NWB R wrist. Family able to demo safe provision of WC mobility and educated on WC part management of removable armrests and elevating legrests.) Environment: Level surface Sitting Static Balance Level of Assistance: Verbal cues/Increased Time Trunk Control: Decreased core Stability (but able to sit midline today) Interdisciplinary Communication MD: Notified recommending 16 WC with ELR, removeable armrests, anti-tippers and cushion RN: OK for PT to see, RN advised pt surgery got moved up earlier and pt will be taken to OR and requesting PT assist pt to [facility] Clinical Coordinator: Notified recommending 16 WC with ELR, removeable armrests, anti-tippers and cushion Family: and daughter present, educated regarding WC size considerations and equipment recs for 16 WC with B ELR and removable armrests Fall Risk Assessment: None of the above Positioning: Pt transferred to [facility] in prep for surgery at end of session Treatment rendered: Transfer training;Bed mobility training;Positioning;Wheelchair management/propulsion training Total treatment time: 38 minutes A: Pt received supine, agreeable to PT, and daughter at bedside. able to correctly don TLSO with pt in supine without PT assist and pt using proper technique for rolling and adherence to NWB R hand. Pt able to progress supine- >sit from the left to mod A for trunk and tolerate sittin gmidlineat EOB prior to transfer to . Pt requiring intermittent reminders for NWB R hand. Pt completed transfer to WC to left only with mod A with cues for NWB RLE. Pt family educated on proper WC part management and they verbalized understanding. Pt taken to OR at end of session. Anticipate 1-2 more sessions to clear for DC home with family support post-op. P: Patient will be seen 5x/week until goals are met or patient is discharged. Next visit the plan isto work on bed mobility via logroll technique, transfers to left and right to/from WC (bring 16 with ELR), have family re-demo WC part management . 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 Outcome: In progress Goal: Patient will transfer supine to/from sit Description: Patient will transfer supine to/from sit with (6) Modified [place] in the TLSO w/othe use of his RUE while maintaining WB restriction in order to demonstrate improved function and D/C by 06/28. Outcome: In progress Goal: Patient will transfer bed to/from wheelchair Description: Patient will transfer bed to/from wheelchair with (4) Minimal Assistance with sliding board or pivot method with TLSO brace on while maintaining BLE and RUE WB restrictions in order to demonstrate improved function and D/C by 06/28. Outcome: In progress Theodora Serrano OTR/Kira - 06/24/2022 12:26 PM CDT Occupational Therapy Progress Note 06/24/2022 OT Discharge Recommendations Discharge Recommendations: Safety risk for discharge home today. Anticipate functional limitations will be resolved/addressed (see assessment in note). (~ 3 more days depending on pain level and progress after surgery) Barriers to Discharge (OT): Adaptive Equipment needed for safe DC;Pain limiting ability to participate in ADL's / IADL's;Activity tolerance limiting ability to participate in ADL's / IADL's;Motor/physical impairments pose safety risk for DC home *Narrow bathroom door at home - needs to discuss wheelchair sizes Post Discharge Follow-up: May no need additional OT services, will make final recommendations closerto d/c Supervision / Assistance Recommended (for home DC): Supervision / Assistance recommended for Home DC (OT): Yes Level of supervision recommended (OT): Distant supervision (within voice / hearing distance e.g., inthe same home/building) Physical assistance recommended for (OT): Lower body dressing;Upper body dressing;Toileting;Bathing Equipment Recommended: Equipment needs being determined (May need a commode and extended tub bench -will make final recommendations closer to discharge) Equipment Status: OT In-patient follow-up / recommended referrals: Continue skilled OT services to achieve the goals on the plan of care / maximize safety and independence with ADL's / IADL's - Anticipated Duration of OT services: until OT goals are met Recommend PM&R consult (OT): Not at this time Precautions/Restrictions: Activity Level: Up in Chair (06/22/22 1200) Spinal Precautions: TLSO if HOB greater than 30 degrees (06/22/22 1200) Weight-bearing Restrictions: Right UE - NWB hand/wrist, OK to weight bear through elbow/forearm withplatform;Left LE - NWB;Right LE - NWB (*.bed to chair with assist, NWB RLE, LLE pivot transfers onlyElevation: RUE) (06/22/22 1200) Complies w/ Weight Bearing?: No (Needs reminders for R UE NWB (ok through elbow) and NWB on B LE - ok for L LE pivot transfer) In Flight Refueling Craftsman Used: No, certified bilingual staff SUBJECTIVE: Cooperative Christy paniagua, michael silva I am doing better, much less pain *Pt was pre medicated before OT session Pain Pain Rating With Activity (Numeric): (not rated numerically- in R side when sitting EOB with brace donned) Location: R side of pelvis/sacrum, avoiding to bear weight on R side when sitting at EOB Participation Significantly Limited?: Yes Action Taken: Nursing aware and addressing OBJECTIVE: Activities of Daily Living Upper Body Dressing: Maximal assist (25% patient effort) (* donned TLSO with SBA) Upper Body Dressing Comments: to don/doff TLSO- in room and assisting with supervision and 1-2 tips from radio script writer Upper Body Dressing Techniques & Equipment: TLSO;Family Education Lower Body Dressing: Maximal assist (25% patient effort) Lower Body Dressing Comments: Mod-Max A to don green shorts in supine. Total A to don B socks Functional Mobility Roll Left - FIM: Verbal cues;Supervision/Stand by assist Roll Right - FIM: Minimal assist (75% patient effort);Verbal cues Supine to/from Sit - FIM: Verbal cues;Minimal assist (75% patient effort) (step- by step cues for logroll - to L side) Sit to/from Stand - FIM: Moderate assist (50% patient effort);Verbal cues Sit to/from Stand - Method: From standard seat height;w/o Assistive device Toilet Transfer - FIM: Dependent (less than 25% patient effort) (*Mod A of 1 + cues for pivot transfer on L LE + A of another person to help with R LE to follow NWB restriction) Toilet Transfer- Method: Bedside commode Cognition Mental Status: Oriented x 3;Follows 2 step directions;Cooperative Delirium assessment: Confusion Assessment Method (CAM) Delirium prevention / intervention appears indicated? No. Therapeutic Exercise/Activity Sat at EOB for ~ 5 minutes with SBA holding at times with L UE on bed rail. Able to bear weight on Rpelvis/sacrum today. Patient / Caregiver Training: Caregiver Training Status (OT): In progress Caregiver Training Comments (OT): 06/24 Pt's donned TLSO with SBA. Pt's and daguther present during OT session. Reviewed restrictions. actively participated 06/23: Pt's & dtr present and donning/doffing TLSO with cues. Discussed increasing tolerance for TLSO and only putting weight through R elbow. 06/22 Samia here. Started education how to don/doff TLSO. Discussed possible AE for toileting and bathing, depending if w/c able to fit in bathroom. Bathroom door is 2 ft 2 inwide with door closing/opening going out. Once inside bathroom has a nice size (has pictures). Thereis a bath tub/shower. Discussed with to address w/c width with PT tomorrow Interdisciplinary Communication: ASSESSMENT: Making progress towards OT goals. Pt's pain much controled today. Pt was pre medicated before OT session. Pt was able to tolerate to sit at EOB with SBA, and bearing more weight on R side of pelvis/sacrum. demonstrated to be able to don TLSO. Reviewed restrictions with pt, and daughter. Worked on LB dressing skills. Practiced a commode transfer at bedside with L LE pivot transfer, needed Mod A of 1 person for the transfer and another person to assist with R LE to follow restriction on NWB. Pt going to OR today. Will need approximately 3 more days after surgery, depending on pt's pain level and progress. Pt has a narrow bathroom door at home, needs to discuss w/c sizes with PT. If w/c cannot fit in bathroom will need a commode, will finalize AE recommendations closer to discharge. This patient will continue to benefit from skilled OT services for ADL retraining, activity tolerance, and functional mobility to maximize independence and safety with ADLs. PLAN: Continue skilled OT services to achieve the goals on the plan of care: Plan For Next OT Session: --ADLs: LB dressing compensatory strategies and Toileting strategies --Functional Mobility/Transfers: Toilet/commode transfer technique and Bathtub shower technique --DME/AE recommendations: Bathing equipment and Toileting equipment Total treatment time: 38 minutes OT interventions and time spent on each: Self care/Home mgmt/ADL: 23 minutes Functional activity: 15 minutes CLAUDIO Cordero Pager: [employer] OT Department Patrice Hollins MD - 06/24/2022 7:12 AM CDT Trauma SURGERY PROGRESS NOTE - PGY 1 Blue Surgery Kesha Hill : 1975 Sex: male ASSESSMENT/PLAN: 46 y.o.male with history of falling off scaffolding structure with estimated drop of 30 feet. Patient found to have several injuries, listed below. Ortho team and Neurosurgery consulted for fractures. On 06/17, patient was found to have nonocclusive deep venous thrombosis in his proximal right femoralvein. On 06/18, patient underwent IVC filter placement and a CRPP of his pelvis for fixation. Due totrauma and hematuria, XR cystogram and CT urogram were obtained and negative for urologic injuries. Patient remains stable though managing constipation and urinary retention. On 06/24, patient will return to OR with orthopedics for ORIF of SI joint, no acute events otherwise. Know injuries: -R Sacral fracture -R acetabular fracture -R inferior pubic rami fx -T12 compression fracture -Rectal hematoma -R distal radial fracture -L2-L5 transverse process fractures Pelvic Fractures: - Hemoglobin is stable, will continue to monitor -Plan to return to OR with orthopedics on 06/24 for ORIF of SI joint R Distal Radius Fracture: - Ortho team plans to convert short arm splint into short arm cast in the OR on 06/24 T12 Compression and L2-L5 TP Fractures: - TLSO applied - Uprights showing stable alignment R Lower Extremity DVT: - Continue heparin gtt as below - Will discuss plan for transitioning from heparin gtt to oral anticoagulation for this patient in the setting of a provoked DVT. Can start transitioning when patient no longer requires surgical intervention. Urinary retention: Possible nerve damage secondary to pelvic fractures, post op complication, with constipation contributing. - Tamsulosin 0.4 daily, trial void - Spontaneously voiding, continue to monitor post op today Maintenance: Diet: NPO for RTOR with ortho Bowel Reg: miralax and senna-docusate daily BID, MoM daily, suppository PRN. Monitor post-operatively today Urinary retention: Start flomax today, trial voids Activity - Bed to chair only with assist Weight Bearing: NWB BLE x 10 weeks, LLE pivot transfers only DVT prophylaxis: Restart heparin gtt at ortho recs post-procedurally GI prophylaxis: None Pain control: Acetaminophen 975 mg TID, dilaudid 1 mg/ml Q4H, oxycodone 5-10 mg Q4H, flexeril 5mg TID Disposition: will be difficult as patient is w/o insurance -- Patient should be seen in outpatient IR clinic 1-2 months post placement to discuss timing for filter removal. SUBJECTIVE: S: Patient is well this morning, no acute events overnight. Has some burning to the forefoot are described in progress note yesterday where he has the paresthesias while lying down, and this burning pain is only present while pushing against something. Wolsey nauseous upon waking, dry heaved. Able to void spontaneously, and nausea this morning was relieved with bowel movement. Prepared for the OR. Appreciative to team for all cares. OBJECTIVE: BP 130/82 (Cuff Location: Right Arm) Pulse 94 Temp 35.6 ??C (96 ??F) (Axillary) Resp 18 Ht 1.651 m (5' 5) Wt 92.4 kg (203 lb 12.8 oz) SpO2 96% BMI 33.91 kg/m?? GEN - lying in bed, comfortable this morning PULM - non-labored breathing on RA CV - HDS EXT - Moving spontaneously BMP Lab Results Component Value Date/Time NA 132 (L) 06/24/2022 0543 K 4.2 06/24/2022 0543 CHLORIDE 96 06/24/2022 0543 CO2 23 06/24/2022 0543 GLU 160 (H) 06/24/2022 0543 UN 19 06/24/2022 0543 CR 0.62 (L) 06/24/2022 0543 CA 9.5 06/24/2022 0543 CBC Lab Results Component Value Date/Time WBC 11.29 (H) 06/24/2022 0543 RBC 4.30 (L) 06/24/2022 0543 HGB 12.0 (L) 06/24/2022 0543 HCT 36.0 (L) 06/24/2022 0543 PLT 527 (H) 06/24/2022 0543 RADIOLOGY: None Discussed with G2, chief and Staff. Jorgito Holloway MD, 06/24/2022 7:12 AM FACULTY NOTE I saw and evaluated the patient 06/24/2022. I discussed with the resident and agree with the resident???s findings and plan documented in the resident???s note from above. Any revisions by me are documented. Patrice Hollins M.D., [facility] Department of Surgery Korin Garcia MD - 06/24/2022 6:17 AM CDT Orthopaedic Surgery Progress Note 06/24/2022 Assessment/Plan: Kesha Hill is a 46 y.o. male : Orthopaedic Injuries: Comminuted, complex right vertical shear sacral fracture Right inferior pubic rami fracture with high pubic root fracture Right non-displaced distal radius fracture: Non-op Associated Injuries: 1. T12 compression fx 2. Rectal hematoma Procedures 06/18 CRPP pelvis (DT) 06/24 ORIF R SI joint, possible ORIF pelvis (DT) Plan 06/24/2022 - NPO for OR today. Hopefully this afternoon or early childhood assistant - Plan to convert right short arm splint into short arm cast in OR Trauma Primary Activity: Bed to chair only with assistance Weight bearing status: NWB RLE x 10 weeks, LLE pivot transfers only Pain management: Transition from IV to PO as tolerated. Antibiotics: Ancef x 24 hours. Diet: NPO for OR today DVT prophylaxis: per primary given known DVT, recommend lovenox to start POD#0 and mechanical while in the hospital, discharge on lovenox x 6 weeks. Imaging: POD#1 CT bony pelvis, complete Labs: Hgb POD#1. Dressings: Keep clean, dry and intact x 2 days, reinforce as needed Physical Therapy/Occupational Therapy: Eval and treat. Follow-up: Clinic with Dr. Brown in 2 weeks AP/inlet/outlet pelvic x-rays needed. Disposition: Pending progress with therapies, pain control on orals, and medical stability. S: NAEEM, AF, VSS, RA. Pain well controlled, hopeful to go to the OR today. No new concerns. O: Vitals: 06/23/22 1900 06/24/22 0023 06/24/22 0351 06/24/22 0353 BP: 122/84 136/84 135/91 131/89 Cuff Location: Right Arm Right Arm Right Arm Right Arm Pulse: 91 64 69 96 Resp: 18 18 18 18 Temp: 36.4 ??C (97.6 ??F) 36.6 ??C (97.8 ??F) 35.6 ??C (96 ??F) TempSrc: Tympanic Axillary Axillary SpO2: 96% 95% 96% 96% Weight: Height: Exam: Gen: No acute distress. Resp: Non-labored breathing RUE: Short arm splint in place, digits wwp, Fires AIN/PIN/IO, SILT m/u/r RLE: Dressing c/d/I. Fires EHL/FHL/Gsc/TA, SILT S/S/SP/DP/T dist, no pain with passive stretch of toes. Toes wwp, compartments soft. Lab Results Component Value Date/Time WBC 10.55 (H) 06/22/2022 0525 WBC 7.23 06/20/2022 0557 WBC 4.92 06/19/2022 0515 HGB 10.1 (L) 06/22/2022 0525 HGB 9.0 (L) 06/20/2022 0557 HGB 9.4 (L) 06/19/2022 0515 PLT 378 06/22/2022 0525 PLT 266 06/20/2022 0557 PLT 227 06/19/2022 0515 CR 0.63 (L) 06/20/2022 0557 CR 0.61 (L) 06/19/2022 0515 CR 0.66 (L) 06/18/2022 0450 Alpesh Live MD Orthopaedic Surgery, PGY-3 Orthopedic Staff Note: Patient discussed with resident and above documentation reviewed. Agree with daily progress note andcare plan as described above. Korin Garcia MD, 06/25/2022 4:52 PM Orthopedic Dept. Staff Physician Reshma Hackett, OTR/L - 06/23/2022 12:50 PM CDT Problem: Loss of [place] With ADLs, Risk for Goal: Patient-specific goals Description: Family will demonstrate how to complete ADL routine including donning/doffing TLSO Outcome: In progress Occupational Therapy Progress Note 06/23/2022 OT Discharge Recommendations Discharge Recommendations: Safety risk for discharge home today. Anticipate functional limitations will be resolved/addressed (see assessment in note). (Pending progress- home with 27/04 assist vs post-acute rehab) Barriers to Discharge (OT): Adaptive Equipment needed for safe DC;Pain limiting ability to participate in ADL's / IADL's;Activity tolerance limiting ability to participate in ADL's / IADL's;Motor/physical impairments pose safety risk for DC home Post Discharge Follow-up: (home OT vs post-acute rehab pending progress) Supervision / Assistance Recommended (for home DC): Equipment Recommended: Equipment needs being determined (May need a commode and extended tub bench -will make final recommendations soon) Equipment Status: OT In-patient follow-up / recommended referrals: Continue skilled OT services to achieve the goals on the plan of care / maximize safety and independence with ADL's / IADL's - Recommended Frequency: 5x / week - Anticipated Duration of OT services: throughout hospital stay - Interventions: ADL retraining, activity tolerance, functional mobility, strengthening, positioning, caregiver education, and DME / Adaptive Equipment needs assessment Recommend PM&R consult (OT): Yes, for assessment of post-acute placement needs. Pt appears to barb candidate for higher intensity rehab services Precautions/Restrictions: Activity Level: Up in Chair (06/22/22 1200) Spinal Precautions: TLSO if HOB greater than 30 degrees (06/22/22 1200) Weight-bearing Restrictions: Right UE - NWB hand/wrist, OK to weight bear through elbow/forearm withplatform;Left LE - NWB;Right LE - NWB (*.bed to chair with assist, NWB RLE, LLE pivot transfers onlyElevation: RUE) (06/22/22 1200) Complies w/ Weight Bearing?: No (required cues to not push/pull/place weight in RUE- ok through elbow) In Flight Refueling Craftsman Used: Yes, agency or phone ice hockey coach ([facility] phone/video ice hockey coach) SUBJECTIVE: I'm getting really warm. Can I take this off now? (TLSO) Pain Pain Rating With Activity (Numeric): (not rated numerically- in R side when sitting EOB with brace donned) Location: R side of pelvis/sacrum, avoiding to bear weight on R side when sitting at EOB Participation Significantly Limited?: Yes Action Taken: Repositioned patient with reported relief OBJECTIVE: Activities of Daily Living Upper Body Dressing: Dependent (less than 25% patient effort) Upper Body Dressing Comments: to don/doff TLSO- in room and assisting with supervision and 1-2 tips from radio script writer Upper Body Dressing Techniques & Equipment: TLSO;Family Education Lower Body Dressing: Maximal assist (25% patient effort) Lower Body Dressing Comments: Mod-Max A to don green shorts in supine. Total A to don B socks sitting EOB Functional Mobility Roll Left - FIM: Verbal cues (verbal cues to not pull with RUE on bed rail) Roll Right - FIM: Minimal assist (75% patient effort) Supine to/from Sit - FIM: Verbal cues;Minimal assist (75% patient effort) (step- by step cues for logroll - to L side) Sit to/from Stand - FIM: Unable to perform (pt declined at this time due to pain) Cognition Mental Status: Oriented x 3;Follows 2 step directions;Cooperative Delirium assessment: Confusion Assessment Method (CAM) Delirium prevention / intervention appears indicated? No. Therapeutic Exercise/Activity Patient / Caregiver Training: Caregiver Training Status (OT): In progress Caregiver Training Comments (OT): 06/23: Pt's & dtr present and donning/doffing TLSO with cues. Discussed increasing tolerance for TLSO and only putting weight through R elbow. 06/22 Samia here. Started education how to don/doff TLSO. Discussed possible AE for toileting and bathing, depending if w/c able to fit in bathroom. Bathroom door is 2 ft 2 in wide with door closing/opening goingout. Once inside bathroom has a nice size (has pictures). There is a bath tub/shower. Discussed withwife to address w/c width with PT tomorrow Interdisciplinary Communication: RN: ok to see ASSESSMENT: Patient was alert and agreeable to OT session. Pt's family present and engaged in session as well. Pt's able to doff/don brace with supervision. Pt currently having difficulty with tolerance sitting EOB. Pending pt's upcoming surgery, pt may require post-acute placement vs / assistance from family after training. Recommend PM&R consult. This patient will continue to benefit from skilled OT services for ADL retraining, activity tolerance, functional mobility, strengthening, positioning, home program, caregiver education, and DME / Adaptive Equipment needs assessment to maximize independence and safety with ADLs. PLAN: Continue skilled OT services to achieve the goals on the plan of care: Plan For Next OT Session: --ADLs: UB dressing compensatory strategies, LB dressing compensatory strategies, and Toileting strategies --Functional Mobility/Transfers: Toilet/commode transfer technique and Bed mobility Total treatment time: 30 minutes OT interventions and time spent on each: Self care/Home mgmt/ADL: 30 minutes JACKELIN Fernandez/Kira Pager: [employer] OT Department Reshma Hackett OTR/Kira, 06/23/2022 4:09 PM Patrice Hollins MD - 06/23/2022 11:46 AM CDT Trauma SURGERY PROGRESS NOTE - PGY 1 Blue Surgery Kesha Hill : 1975 Sex: male ASSESSMENT/PLAN: 46 y.o.male with history of falling off scaffolding structure with estimated drop of 30 feet. Patient found to have several injuries, listed below. Ortho team and Neurosurgery consulted for fractures. On 06/17, patient was found to have nonocclusive deep venous thrombosis in his proximal right femoralvein. On 06/18, patient underwent IVC filter placement and a CRPP of his pelvis for fixation. Due totrauma and hematuria, XR cystogram and CT urogram were obtained and negative for urologic injuries. Patient remains stable though managing constipation and urinary retention. On 06/24, patient will return to OR with orthopedics for ORIF of SI joint, no acute events otherwise. Know injuries: -R Sacral fracture -R acetabular fracture -R inferior pubic rami fx -T12 compression fracture -Rectal hematoma -R distal radial fracture -L2-L5 transverse process fractures Pelvic Fractures: - Hemoglobin is stable, will continue to monitor -Plan to return to OR with orthopedics on 06/24 for ORIF of SI joint R Distal Radius Fracture: - Ortho team plans to convert short arm splint into short arm cast in the OR on 06/24 T12 Compression and L2-L5 TP Fractures: - TLSO applied - Uprights showing stable alignment R Lower Extremity DVT: - Continue heparin gtt as below - Will discuss plan for transitioning from heparin gtt to oral anticoagulation for this patient in the setting of a provoked DVT. Can start transitioning when patient no longer requires surgical intervention. Urinary retention: Possible nerve damage secondary to pelvic fractures, post op complication, with constipation contributing. - Tamsulosin 0.4 daily, trial void - Constipation regimen as below - Continue intermittent straight cath as needed Maintenance: Diet: Regular, NPO @ [place] Bowel Reg: miralax and senna-docusate daily BID, MoM daily, suppository PRN. FLEET enema today. Urinary retention: Start flomax today, trial voids Activity - Bed to chair only with assist Weight Bearing: NWB BLE x 10 weeks, LLE pivot transfers only DVT prophylaxis: Heparin gtt, hold at 0600 tomorrow for RTOR with ortho GI prophylaxis: None Pain control: Acetaminophen 975 mg TID, dilaudid 1 mg/ml Q4H, oxycodone 5-10 mg Q4H, flexeril 5mg TID Disposition: will be difficult as patient is w/o insurance -- Patient should be seen in outpatient IR clinic 1-2 months post placement to discuss timing for filter removal. SUBJECTIVE: S: Patient did well overnight and nursing reports that he slept overnight, pain well-managed. Patient reports increase in severity of right foot paresthesias, described as pins and needles to the right toes, forefoot and heel that is only present while lying down. It only became worse after the injury and surgery, present before the injury for some time. No weakness or balance issues. Unsure if related to diabetes or the injury.surgery. OBJECTIVE: Filed Vitals: 06/18/22 0755 BP: 149/77 Pulse: 100 Resp: 20 Temp: 37.1 ??C (98.7 ??F) Weight: GEN - lying in bed, visibly uncomfortable this morning, more comfortable this afternoon PULM - non-labored breathing on RA CV - HDS EXT - Mild diminished sensation to ball of right forefoot, symmetric 5/5 ankle plantar- and dorsiflexion and EHL strength. Intact sensation to light touch throughout remainder of right foot compared with left. BMP Lab Results Component Value Date/Time NA 139 06/20/2022 0557 K 3.8 06/20/2022 0557 CHLORIDE 103 06/20/2022 0557 CO2 26 06/20/2022 0557 GLU 146 (H) 06/20/2022 0557 UN 14 06/20/2022 0557 CR 0.63 (L) 06/20/2022 0557 CA 8.4 (L) 06/20/2022 05 CBC Lab Results Component Value Date/Time WBC 10.55 (H) 06/22/2022 0525 RBC 3.58 (L) 06/22/2022 0525 HGB 10.1 (L) 06/22/2022 0525 HCT 30.2 (L) 06/22/2022 0525 PLT 378 06/22/2022 0525 RADIOLOGY: None Discussed with G2 and Staff. SharonAlize, MS, 06/23/2022 11:46 AM Patient was seen by medical student with documentation as above. I have reviewed the above documentation with edits made by me, and I have repeated the physical exam. Plan discussed with G2, chief and staff. RESIDENT WITH STUDENT: Jorgito Holloway MD, 06/23/2022 2:47 PM FACULTY NOTE I saw and evaluated the patient Today, 06/23/2022. I discussed with the resident and agree with the resident???s findings and plan documented in the resident???s note from above. Any revisions by me aredocumented. Patrice Hollins M.D., [facility] Department of Surgery Linda Lei MD - 06/23/2022 5:24 AM CDT Orthopaedic Surgery Progress Note 06/23/2022 Assessment/Plan: Kesha Hill is a 46 y.o. male : Orthopaedic Injuries: Comminuted, complex right vertical shear sacral fracture Right inferior pubic rami fracture with high pubic root fracture Right non-displaced distal radius fracture: Non-op Associated Injuries: 1. T12 compression fx 2. Rectal hematoma Procedures 06/18 CRPP pelvis (DT) 06/23 ORIF R SI joint, possible ORIF pelvis (DT) Plan 06/23/2022 - NPO for OR today - Plan to convert right short arm splint into short arm cast in OR Trauma Primary Activity: Bed to chair only with assistance Weight bearing status: NWB RLE x 10 weeks, LLE pivot transfers only Pain management: Transition from IV to PO as tolerated. Antibiotics: Ancef x 24 hours. Diet: NPO for OR today DVT prophylaxis: per primary given known DVT, recommend lovenox to start POD#0 and mechanical while in the hospital, discharge on lovenox x 6 weeks. Imaging: POD#1 CT bony pelvis, complete Labs: Hgb POD#1. Dressings: Keep clean, dry and intact x 2 days, reinforce as needed Physical Therapy/Occupational Therapy: Eval and treat. Follow-up: Clinic with Dr. Brown in 2 weeks AP/inlet/outlet pelvic x-rays needed. Disposition: Pending progress with therapies, pain control on orals, and medical stability. S: SHERINEON, AF, VSS, RA. Pain well controlled, resting comfortably. No new concerns. O: Vitals: 06/22/22 0012 06/22/22 0355 06/22/22 0800 06/23/22 0000 BP: 121/72 117/72 120/71 122/84 Cuff Location: Right Arm Right Arm Right Arm Right Arm Pulse: 84 88 62 Resp: 16 16 Temp: 36.8 ??C (98.2 ??F) 37.2 ??C (99 ??F) 37 ??C (98.6 ??F) 36.7 ??C (98.1 ??F) TempSrc: Tympanic Tympanic Axillary Axillary SpO2: 100% 100% 100% 96% Weight: Height: Exam: Gen: No acute distress. Resp: Non-labored breathing RUE: Short arm splint in place, digits wwp, Fires AIN/PIN/IO, SILT m/u/r RLE: Dressing c/d/I. Fires EHL/FHL/Gsc/TA, SILT S/S/SP/DP/T dist, no pain with passive stretch of toes. Toes wwp, compartments soft. Lab Results Component Value Date/Time WBC 10.55 (H) 06/22/2022 0525 WBC 7.23 06/20/2022 0557 WBC 4.92 06/19/2022 0515 HGB 10.1 (L) 06/22/2022 0525 HGB 9.0 (L) 06/20/2022 0557 HGB 9.4 (L) 06/19/2022 0515 PLT 378 06/22/2022 0525 PLT 266 06/20/2022 0557 PLT 227 06/19/2022 0515 CR 0.63 (L) 06/20/2022 0557 CR 0.61 (L) 06/19/2022 0515 CR 0.66 (L) 06/18/2022 0450 Alpesh Live MD Orthopaedic Surgery, PGY-3 Orthopedic Staff Note: Patient was discussed with team and above documentation reviewed. Agree with note and care plan as described above. Heparin ordered for DVT PPX on hold for OR. Linda Lei MD, 06/23/2022 2:42 PM Orthopedic Dept. Staff Physician Kingston Shaw MD - 06/22/2022 5:05 AM CDT Trauma SURGERY PROGRESS NOTE - PGY 1 Blue Surgery Kesha Hill : 1975 Sex: male ASSESSMENT/PLAN: 46 y.o.male with history of falling off scaffolding structure with estimated drop of 30 feet. Patient found to have several injuries, listed below. Ortho team and Neurosurgery consulted for fractures. On 06/17, patient was found to have nonocclusive deep venous thrombosis in his proximal right femoralvein. On 06/18, patient underwent IVC filter placement and a CRPP of his pelvis for fixation. Due totrauma and hematuria, XR cystogram and CT urogram were obtained and negative for urologic injuries. Patient remains stable. Ortho to RTOR on 06/23 for ORIF of SI joint. Know injuries: -R Sacral fracture -R acetabular fracture -R inferior pubic rami fx -T12 compression fracture -Rectal hematoma -R distal radial fracture -L2-L5 transverse process fractures Pelvic Fractures: - Ortho team with plans to RTOR on 06/23 for ORIF of SI joint. NPO and Heparin held at midnight R Distal Radius Fracture: - Ortho team plans to convert short arm splint into short arm cast in the OR T12 Compression and L2-L5 TP Fractures: - TLSO applied R Lower Extremity DVT: - Continue heparin ggt - Once done with surgeries will transition from heparin ggt to oral anticoagulation. Maintenance: Diet: Regular Bowel Reg: miralax and senna-docusate daily BID, MoM daily, suppository PRN, water enema Activity - Bed to chair only with assist Weight Bearing: NWB BLE x 10 weeks, LLE pivot transfers only DVT prophylaxis: Heparin ggt GI prophylaxis: None Pain control: Acetaminophen 975 mg TID, dilaudid 1 mg/ml Q4H, oxycodone 5-10 mg Q4H, flexeril 5mg TID Disposition: will be difficult as patient is w/o insurance -- Patient should be seen in outpatient IR clinic 1-2 months post placement to discuss timing for filter removal. SUBJECTIVE: S: Doing well this morning. Pain is well managed. Has not had a BM. Is agreeable for a suppository and water enema. OBJECTIVE: Vitals: 06/22/22 0355 BP: 117/72 Pulse: 88 Resp: 16 Temp: 37.2 ??C (99 ??F) SpO2: 100% General: Not in acute distress Cardiovascular: Regular rate Respiratory: Breathing comfortably on room air. Equal chest rise. Not using accessory muscles Abdomen: Soft, nontender, and mildly distended Extremities: Bilateral lower extremities equal range of motion. No edema noted. Incision to right hip is dry, clean, and intact. Labs: CBC Lab Results Component Value Date/Time WBC 10.55 (H) 06/22/2022 0525 RBC 3.58 (L) 06/22/2022 0525 HGB 10.1 (L) 06/22/2022 0525 HCT 30.2 (L) 06/22/2022 0525 PLT 378 06/22/2022 0525 RADIOLOGY: None Discussed with G2 and Staff. Tereza Desai MD, 06/22/2022 8:17 AM FACULTY NOTE I saw and evaluated the patient Today, 06/22/2022. I discussed with the resident and agree with the resident???s findings and plan documented in the resident???s note from this date. Any revisions by eloy documented. Kingston Shaw MD, 06/22/2022 12:43 PM Rikki Best MD - 06/21/2022 9:10 AM CDT Trauma SURGERY PROGRESS NOTE - PGY 1 Blue Surgery Kesha Hill : 1975 Sex: male ASSESSMENT/PLAN: 46 y.o.male with history of falling off scaffolding structure with estimated drop of 30 feet. Patient found to have several injuries, listed below. Ortho team and Neurosurgery consulted for fractures. On 06/17, patient was found to have nonocclusive deep venous thrombosis in his proximal right femoralvein. On 06/18, patient underwent IVC filter placement and a CRPP of his pelvis for fixation. Due totrauma and hematuria, XR cystogram and CT urogram were obtained and negative for urologic injuries. Patient remains stable. Know injuries: -R Sacral fracture -R acetabular fracture -R inferior pubic rami fx -T12 compression fracture -Rectal hematoma -R distal radial fracture -L2-L5 transverse process fractures Pelvic Fractures: - Ortho team with plans to RTOR on 06/23 for ORIF of SI joint - Hemoglobin is stable, will continue to monitor R Distal Radius Fracture: - Ortho team plans to convert short arm splint into short arm cast in the OR T12 Compression and L2-L5 TP Fractures: - TLSO applied - Uprights showing stable alignment R Lower Extremity DVT: - Continue heparin ggt - Will discuss plan for transitioning from heparin ggt to oral anticoagulation for this patient in the setting of a provoked DVT. Can start transitioning when patient no longer requires surgical intervention. Maintenance: Diet: Regular Bowel Reg: miralax and senna-docusate daily BID, MoM daily, suppository PRN Activity - Bed to chair only with assist Weight Bearing: NWB BLE x 10 weeks, LLE pivot transfers only DVT prophylaxis: Heparin ggt GI prophylaxis: None Pain control: Acetaminophen 975 mg TID, dilaudid 1 mg/ml Q4H, oxycodone 5-10 mg Q4H, flexeril 5mg TID Disposition: will be difficult as patient is w/o insurance -- Patient should be seen in outpatient IR clinic 1-2 months post placement to discuss timing for filter removal. SUBJECTIVE: S: Patient reports pain in his right hip area that he rates at a 9/10. He denies any nausea or vomiting. He has not had a BM yet. OBJECTIVE: Filed Vitals: 06/18/22 0755 BP: 149/77 Pulse: 100 Resp: 20 Temp: 37.1 ??C (98.7 ??F) Weight: GEN - lying in bed, visibly uncomfortable PULM - non-labored breathing on RA CV - HDS ABD - soft, non-tender, non-distended BMP Lab Results Component Value Date/Time NA 139 06/20/2022 0557 K 3.8 06/20/2022 0557 CHLORIDE 103 06/20/2022 0557 CO2 26 06/20/2022 0557 GLU 146 (H) 06/20/2022 0557 UN 14 06/20/2022 0557 CR 0.63 (L) 06/20/2022 0557 CA 8.4 (L) 06/20/2022 0557 CBC Lab Results Component Value Date/Time WBC 7.23 06/20/2022 0557 RBC 3.19 (L) 06/20/2022 0557 HGB 9.0 (L) 06/20/2022 0557 HCT 27.0 (L) 06/20/2022 0557 PLT 266 06/20/2022 0557 RADIOLOGY: None Discussed with G2 and Staff. Linda Au MD, 06/21/2022 9:10 AM FACULTY WITH RESIDENT: I saw and evaluated the patient on the date of the resident's note. I discussed with the resident and agree with the resident's findings and plan documented in the resident's note. Any revisions by me are documented. Rikki Best MD, 06/23/2022 5:13 PM Marily Mullen MD - 06/21/2022 5:42 AM CDT Orthopaedic Surgery Progress Note 06/21/2022 Assessment/Plan: Kesha Hill is a 46 y.o. male : Orthopaedic Injuries: Comminuted, complex right vertical shear sacral fracture Right inferior pubic rami fracture with high pubic root fracture Right non-displaced distal radius fracture: Non-op Associated Injuries: 1. T12 compression fx 2. Rectal hematoma Procedures 06/18 CRPP pelvis (DT) 06/23 ORIF R SI joint, possible ORIF pelvis (DT) Plan 06/21/2022 - Cont heparin gtt - Pain control - PT/OT - Plan to convert right short arm splint into short arm cast in OR Trauma Primary Activity: Bed to chair only with assistance Weight bearing status: NWB RLE x 10 weeks, LLE pivot transfers only Pain management: Transition from IV to PO as tolerated. Antibiotics: Ancef x 24 hours. Diet: Begin with clear fluids and progress diet as tolerated. NPO MN on 06/23 DVT prophylaxis: per primary given known DVT, recommend lovenox to start POD#0 and mechanical while in the hospital, discharge on lovenox x 6 weeks. Imaging: POD#1 CT bony pelvis, complete Labs: Hgb POD#1. Dressings: Keep clean, dry and intact x 2 days, reinforce as needed Physical Therapy/Occupational Therapy: Eval and treat. Follow-up: Clinic with Dr. Brown in 2 weeks AP/inlet/outlet pelvic x-rays needed. Disposition: Pending progress with therapies, pain control on orals, and medical stability. S: NAEEM, AF, VSS, RA. Pain well controlled, resting comfortably. No new concerns. O: Vitals: 06/20/22 1559 06/20/22 2045 06/20/22 2300 06/21/22 0400 BP: 137/78 140/80 133/74 119/67 Cuff Location: Right Arm Right Arm Right Arm Right Arm Pulse: 95 93 88 82 Resp: 16 16 16 16 Temp: 37 ??C (98.6 ??F) 36.9 ??C (98.5 ??F) 36.6 ??C (97.9 ??F) 37 ??C (98.6 ??F) TempSrc: Tympanic Tympanic Tympanic Tympanic SpO2: 96% 95% 97% 97% Weight: Height: Exam: Gen: No acute distress. Resp: Non-labored breathing RUE: Short arm splint in place, digits wwp, Fires AIN/PIN/IO, SILT m/u/r RLE: Dressing c/d/I. Fires EHL/FHL/Gsc/TA, SILT S/S/SP/DP/T dist, no pain with passive stretch of toes. Toes wwp, compartments soft. Lab Results Component Value Date/Time WBC 7.23 06/20/2022 0557 WBC 4.92 06/19/2022 0515 WBC 7.80 06/18/2022 0450 HGB 9.0 (L) 06/20/2022 0557 HGB 9.4 (L) 06/19/2022 0515 HGB 9.6 (L) 06/18/2022 0450 PLT 266 06/20/2022 0557 PLT 227 06/19/2022 0515 PLT 191 06/18/2022 0450 CR 0.63 (L) 06/20/2022 0557 CR 0.61 (L) 06/19/2022 0515 CR 0.66 (L) 06/18/2022 0450 Alpesh Live MD Orthopaedic Surgery, PGY-3 Orthopedic Staff Note: Ortho staff addendum: Patient discussed with resident and above documentation reviewed. I agree with daily progress note and care plan as described above. Marily Mullen MD Staff Physician Orthopaedic Service Narciso [place], [place] - 06/20/2022 10:26 AM CDT [facility] Patient was seen to check fit of TLSO. Patient reports TLSO is fitting well with no reported discomfort. He and his were instructed on proper wear and care. Please call with any questions or concerns. Aman Pichardo [employer] [facility] [phone] Linda Au MD - 06/20/2022 5:36 AM CDT Trauma SURGERY PROGRESS NOTE - MS3/PGY 1 Blue Surgery Keshaurmila CoombsTanya : 1975 Sex: male ASSESSMENT/PLAN: 46 y.o.male with history of falling off scaffolding structure with estimated drop of 30 feet. Patient found to have several injuries, listed below. He is currently stable. Tertiary exam performed on 06/16 and patient was found to have right wrist pain with a subsequent right distal radial fracture identified with follow up XR. Ortho team is following and aware of new findings. Neurosurgery consulted for spinal fractures. On 06/17, patient was found to have nonocclusive deep venous thrombosis in proximal right femoral vein. On 06/18, patient underwent IVC filter placement and surgical intervention with orthopedics for pelvic fracture fixation. Due to trauma and hematuria, XR cystogram and CT urogramobtained and negative for urologic injuries. Know injuries: -R Sacral fracture -R acetabular fracture -R inferior pubic rami fx -T12 compression fracture -Rectal hematoma -R distal radial fracture -L2-L5 transverse process fractures Pelvic Fractures: - Ortho following, may need further imaging to guide management plan - Hemoglobin is stable, will continue to monitor R Lateral Ankle Pain: - Obtain XR to r/o fracture R Distal Radius Fracture: - Ortho team aware of this tertiary finding and reviewing treatment options, awaiting recommendations T12 Compression and L2-L5 TP Fractures: -TLSO applied - NSY updated on activity liberalization and TLSO fitting, so they can move forward with needed imaging studies R Lower Extremity DVT: - Continue heparin ggt - Will discuss plan for transitioning from heparin ggt to oral anticoagulation for this patient in the setting of a provoked DVT. Maintenance: Diet: Started at clear liquids post op and advance as tolerated Activity - Up with assist Weight Bearing: RUE, RLE, and LLE NWB DVT prophylaxis: Heparin ggt GI prophylaxis: None Pain control: Acetaminophen 975 mg TID, dilaudid 1 mg/ml Q4H, oxycodone 5-10 mg Q4H, flexeril 5mg TID Disposition: will be difficult as patient is w/o insurance -- Patient should be seen in outpatient IR clinic 1-2 months post placement to discuss timing for filter removal. SUBJECTIVE: S: Patient did well overnight. Family at the bedside this morning. He feels like his pain is improving and well controlled with his current pain regimen. He is tolerating clear liquids without any issues. Has yet to have a BM yet. He is passing gas. Per nursing report, patient was bladder scanned [id number] retained, so he underwent straight catheterization. He reports that he does not want a suppository today and wanted to try to eat to see if he could have a BM. Patient did have some pain in his right lateral ankle that has improved some. OBJECTIVE: Filed Vitals: 06/18/22 0755 BP: 149/77 Pulse: 100 Resp: 20 Temp: 37.1 ??C (98.7 ??F) Weight: GEN - lying in bed in NAD PULM - non-labored breathing on RA CV - HDS ABD - soft, non-tender, non-distended EXT - well-perfused, DP pulses present bilaterally BMP Lab Results Component Value Date/Time NA 139 06/19/2022 0515 K 4.5 06/19/2022 0515 CHLORIDE 104 06/19/2022 0515 CO2 24 06/19/2022 0515 GLU 140 (H) 06/19/2022 0515 UN 12 06/19/2022 0515 CR 0.61 (L) 06/19/2022 0515 CA 8.4 (L) 06/19/2022 0515 CBC Lab Results Component Value Date/Time WBC 4.92 06/19/2022 0515 RBC 3.30 (L) 06/19/2022 0515 HGB 9.4 (L) 06/19/2022 0515 HCT 28.0 (L) 06/19/2022 0515 PLT 227 06/19/2022 0515 RADIOLOGY: XR R Ankle pending Discussed with G5 and Staff. Alize Herrera, , 06/20/2022 5:37 AM RESIDENT WITH STUDENT: Elias Au MD, saw the patient with the medical student and performed, or re-performed, the physical exam and medical decision- making and have verified the accuracy of all the medical student documentation and edited as necessary. Linda Au MD, 06/20/2022 12:37 PM Associated attestation - Judi Persaud MD - 06/20/2022 12:54 PM CDT FACULTY WITH RESIDENT: I saw and evaluated the patient 06/20/2022. I discussed with the team and agree with the findings and plan documented in the resident's note. Any revisions by me are documented. Judi Persaud MD, 06/20/2022 12:54 PM Attending Physician General/Trauma Surgery Surgical Critical Care Joce Villareal MD - 06/20/2022 5:27 AM CDT Orthopaedic Surgery Progress Note 06/20/2022 Assessment/Plan: Kesha Hill is a 46 y.o. male : Orthopaedic Injuries: Comminuted, complex right vertical shear sacral fracture Right inferior pubic rami fracture with high pubic root fracture Right non-displaced distal radius fracture: To be Associated Injuries: 1. T12 compression fx 2. Rectal hematoma Procedures 06/18 CRPP pelvis, ORIF anterior pelvis Plan 06/20/2022 - Cont heparin gtt - Pain control - PT/OT - R DRFx to be discussed w Dr. Vegas this morning, likely non-op Trauma Primary Activity: Bed to chair only with assistance Weight bearing status: NWB RLE x 10 weeks, LLE pivot transfers only Pain management: Transition from IV to PO as tolerated. Antibiotics: Ancef x 24 hours. Diet: Begin with clear fluids and progress diet as tolerated. DVT prophylaxis: per primary given known DVT, recommend lovenox to start POD#0 and mechanical while in the hospital, discharge on lovenox x 6 weeks. Imaging: POD#1 CT bony pelvis. Labs: Hgb POD#1. Dressings: Keep clean, dry and intact x 2 days, reinforce as needed Physical Therapy/Occupational Therapy: Eval and treat. Follow-up: Clinic with Dr. Brown in 2 weeks AP/inlet/outlet pelvic x-rays needed. Disposition: Pending progress with therapies, pain control on orals, and medical stability. S: NAEEM, AF, VSS, RA. Resting comfortably this am. No numbness/tingling. Received a suppository. O: Vitals: 06/19/22 1506 06/19/22200506/19/22 2332 06/20/22 0314 BP: 134/72 136/73 145/77 137/65 Cuff Location: Right Arm Right Arm Right Arm Right Arm Pulse: 86 83 87 Resp: Temp: 36.3 ??C (97.4 ??F) 36.4 ??C (97.5 ??F) 36.4 ??C (97.6 ??F) 36.1 ??C (97 ??F) TempSrc: Tympanic Tympanic Tympanic Tympanic SpO2: 92% 96% 94% 96% Weight: Height: Exam: Gen: No acute distress. Resp: Non-labored breathing RLE: Dressing c/d/I. Fires EHL/FHL/Gsc/TA, SILT S/S/SP/DP/T dist, no pain with passive stretch of toes. Toes wwp, compartments soft. Lab Results Component Value Date/Time WBC 4.92 06/19/2022 0515 WBC 7.80 06/18/2022 045 WBC 7.32 06/17/2022 0507 HGB 9.4 (L) 06/19/2022 0515 HGB 9.6 (L) 06/18/2022 0450 HGB 9.8 (L) 06/17/2022 0507 PLT 227 06/19/2022 0515 PLT 191 06/18/2022 0450 PLT 181 06/17/2022 0507 CR 0.61 (L) 06/19/2022 0515 CR 0.66 (L) 06/18/2022 0450 CR 0.82 06/17/2022 0507 Alpesh Live MD Orthopaedic Surgery, PGY-3 Orthopedic Staff Note: Patient discussed with resident and above documentation reviewed. Agree with daily progress note andcare plan as described above. Joce Villareal MD, 06/22/2022 9:18 PM Orthopedic Dept. Staff Physician Tereza Desai MD - 06/19/2022 9:17 AM CDT Trauma SURGERY PROGRESS NOTE - MS3/PGY 1 Blue Surgery Kesha CoombsTanya : 1975 Sex: male ASSESSMENT/PLAN: 46 y.o.male with history of falling off scaffolding structure with estimated drop of 30 feet. Patient found to have several injuries, listed below. He is currently stable. Tertiary exam performed on 06/16 and patient was found to have right wrist pain with a subsequent right distal radial fracture identified with follow up XR. Ortho team is following and aware of new findings. Neurosurgery consulted for spinal fractures. On 06/17, patient was found to have nonocclusive deep venous thrombosis in proximal right femoral vein. On 06/18, patient underwent IVC filter placement and surgical intervention with orthopedics for pelvic fracture fixation. Due to trauma and hematuria, a XR urethrogram will be obtain to further assess for injury. On 06/19, no acute events. Know injuries: -R Sacral fracture -R acetabular fracture -R inferior pubic rami fx -T12 compression fracture -Rectal hematoma -R distal radial fracture -L2-L5 transverse process fractures Pelvic Fractures: - Ortho following - Hemoglobin is stable, will continue to monitor R Distal Radius Fracture: - Ortho team aware of this tertiary finding, will await recs T12 Compression and L2-L5 TP Fractures: - Neurosurgery consulted, plans for TLSO treatment and upright Xrs R Lower Extremity DVT: -Heparin restarted Maintenance: Diet: Started at clear liquids post op and advance as tolerated Activity - Up with assist Weight Bearing: RUE, RLE, and LLE NWB DVT prophylaxis: Heparin post-orthopedic procedure on 06/18. GI prophylaxis: None Pain control: Acetaminophen 975 mg TID, dilaudid 1 mg/ml Q4H, oxycodone 5-10 mg Q4H, flexeril 5mg TID Disposition: will be difficult as patient is w/o insurance -- Patient should be seen in outpatient IR clinic 1-2 months post placement to discuss timing for filter removal. SUBJECTIVE: S: Nursing reports patient did alright overnight, pain controlled with medications. OBJECTIVE: Filed Vitals: 06/18/22 0755 BP: 149/77 Pulse: 100 Resp: 20 Temp: 37.1 ??C (98.7 ??F) Weight: GEN - lying in bed in traction, visibly comfortable PULM - non-labored breathing on 1.5L NC CV - normal BPM ABD - soft, non-tender, non-distended - rangel in place EXT - well-perfused BMP Lab Results Component Value Date/Time NA 139 06/19/2022 0515 K 4.5 06/19/2022 0515 CHLORIDE 104 06/19/2022 0515 CO2 24 06/19/2022 0515 GLU 140 (H) 06/19/2022 0515 UN 12 06/19/2022 0515 CR 0.61 (L) 06/19/2022 0515 CA 8.4 (L) 06/19/2022 0515 CBC Lab Results Component Value Date/Time WBC 4.92 06/19/2022 0515 RBC 3.30 (L) 06/19/2022 0515 HGB 9.4 (L) 06/19/2022 0515 HCT 28.0 (L) 06/19/2022 0515 PLT 227 06/19/2022 0515 RADIOLOGY: CT urogram: CT UROGRAM (06/19/2022 11:05) Impression: 1. No evidence for ureteral injury. 2. Extensive pelvic fractures as described previously with fixation of the SI joints. Pelvic hemorrhage again noted, extending into the anterior space of Retzius. No active extravasation. 3. Bibasilar atelectasis with small effusions. CT pelvis: CT PELVIS 3D RECONSTRUCTION (06/19/2022 11:49) Read pending Discussed with G5 and Staff. Alize Herrera, MS, 06/19/2022 9:17 AM RESIDENT WITH STUDENT: I saw the patient with the medical student today, and performed, or re-performed, the physical exam and medical decision-making in the provision of this service and have verifiedthe accuracy of all the medical student documentation and edited as necessary. Tereza Desai MD, 06/19/2022 1:08 PM Associated attestation - Judi Persaud MD - 06/19/2022 5:34 PM CDT FACULTY WITH RESIDENT: I saw and evaluated the patient 06/19/2022. I discussed with the team and agree with the findings and plan documented in the resident's note. Any revisions by me are documented. Judi Persaud MD, 06/19/2022 5:34 PM Attending Physician General/Trauma Surgery Surgical Critical Care Chintan Valadez MD - 06/19/2022 5:31 AM CDT Orthopaedic Surgery Progress Note 06/19/2022 Assessment/Plan: Kesha Hill is a 46 y.o. male : Orthopaedic Injuries: Comminuted, complex right vertical shear sacral fracture Right inferior pubic rami fracture with high pubic root fracture Right non-displaced distal radius fracture Associated Injuries: 1. T12 compression fx 2. Rectal hematoma Procedures 06/18 CRPP pelvis, ORIF anterior pelvis Plan 06/19/2022 - Cont heparin gtt - Pain control - PT/OT Trauma Primary Activity: Bed to chair only with assistance Weight bearing status: NWB RLE x 10 weeks, LLE pivot transfers only Pain management: Transition from IV to PO as tolerated. Antibiotics: Ancef x 24 hours. Diet: Begin with clear fluids and progress diet as tolerated. DVT prophylaxis: per primary given known DVT, recommend lovenox to start POD#0 and mechanical while in the hospital, discharge on lovenox x 6 weeks. Imaging: POD#1 CT bony pelvis. Labs: Hgb POD#1. Dressings: Keep clean, dry and intact x 2 days, reinforce as needed Physical Therapy/Occupational Therapy: Eval and treat. Follow-up: Clinic with Dr. Brown in 2 weeks AP/inlet/outlet pelvic x-rays needed. Disposition: Pending progress with therapies, pain control on orals, and medical stability. S: NAEON, AF, VSS, NC 1.5L. Pain well controlled. No numbness/tingling. O: Vitals: 06/18/22 1950 06/18/22203006/18/22204406/19/22 0352 BP: (!) 155/91 132/83 137/81 124/77 Cuff Location: Right Arm Right Arm Right Arm Pulse: 98 95 95 87 Resp: 15 18 16 16 Temp: 36.6 ??C (97.8 ??F) 35.7 ??C (96.2 ??F) 36.1 ??C (97 ??F) TempSrc: Tympanic Tympanic Tympanic SpO2: 96% 98% 98% 100% Weight: Height: Exam: Gen: No acute distress. Resp: Non-labored breathing RLE: Dressing c/d/I. Fires EHL/FHL/Gsc/TA, SILT S/S/SP/DP/T dist, no pain with passive stretch of toes. Toes wwp, compartments soft. Lab Results Component Value Date/Time WBC 7.80 06/18/2022 0450 WBC 7.32 06/17/2022 0507 WBC 14.21 (H) 06/15/20221919 HGB 9.6 (L) 06/18/2022449 HGB 9.8 (L) 06/17/2022 0507 HGB 13.0 (L) 06/15/20221919 HGB 13.7 06/15/20220 PLT 191 06/18/2022 0450 PLT 181 06/17/2022 0507 PLT 294 06/15/2022 1920 CR 0.66 (L) 06/18/2022 0450 CR 0.82 06/17/2022 0507 CR 1.00 06/15/2022 1920 Alpesh Live MD Orthopaedic Surgery, PGY-3 Orthopedic Staff Note: Patient discussed with resident and above documentation reviewed. Agree with daily progress note andcare plan as described above. Chintan Valadez MD, 06/19/2022 3:21 PM Orthopedic Dept. Staff Physician Roger Fall RN - 06/19/2022 2:21 AM CDT Pt came from PACU ORIF, PELVIS (Right: Pelvis) 06/18. Ortho resident with progress notes 06/18 that ptcan start heparin drip immediately. Paged treatment team, got order for STAT Anti XA. Got result for0.04 however Heparin orders were confusing, paged Charge and tenured float nurse confirmed heparin orders needed treatment team to revisit; no restart heparin drip orders even. Paged treatment team again; awaiting for orders. Pt asleep, VSS. Roger Fall RN, 06/19/2022 2:48 AM Roger Fall RN - 06/18/2022 8:08 PM CDT TRANSFER IN NOTE D: Patient transferred in to [facility] from PACU at 1950. Patient condition on arrival: stable. Patient Belonging 06/16/2022 0110 Patient or family informed of Patient Valuables and Belongings Policy (#[id number]): Due to patient condition, [facility] staff will inventory and secure patient valuables Medications brought in by patient?: None A: Settled patient in to new room: oriented to room, VS done, and assessment done. Upon admission a Four Eyes Skin Inspection was completed with Skin injuries were not present. Will continue to use Fuentes Scale and skin bundle interventions as appropriate. Property sheet checked in by: RN. Transfer orders released.. R: Assisted to his room, family at bedside, PRN pain meds given d/t pt in pain. Pt resting of this writing. P: Commence with cares per Care Plan and orders. Patrice Hollins MD - 06/18/2022 8:24 AM CDT Trauma SURGERY PROGRESS NOTE - MS3/PGY 1 Kesha Luisa : 1975 Sex: male ASSESSMENT/PLAN: 46 y.o.male with history of falling off scaffolding structure with estimated drop of 30 feet. Patient found to have several injuries, listed below. He is currently stable. Tertiary exam performed on 06/16 and patient was found to have right wrist pain with a subsequent right distal radial fracture identified with follow up XR. Ortho team is following and aware of new findings. Neurosurgery consulted for spinal fractures. On 06/17, patient was found to have nonocclusive deep venous thrombosis in proximal right femoral vein. On 06/18, plans for patient to undergo IVC filter placement and surgical intervention with orthopedics for pelvic fracture fixation. Due to trauma and hematuria, we will obtain XR urethrogram to further assess for injury. -R Sacral fracture -R acetabular fracture -R inferior pubic rami fx -T12 compression fracture -Rectal hematoma -Intraarticular fracture of R distal radius -L2-L5 transverse process fractures Pelvic Fractures: - Ortho following, OR 06/18 - Patient is currently in traction - XR urethrogram on 06/18 - Hemoglobin is stable, will continue to monitor R Distal Radius Fracture: - Ortho team aware of this tertiary finding, will await recs T12 Compression and L2-L5 TP Fractures: - Neurosurgery consulted, plans for TLSO treatment and upright Xrs R Lower Extremity DVT: - IVC filter placement today - Will plan to restart heparin ggt after procedure today for anticoagulation. Maintenance: Diet: NPO for procedure, will start at clear liquids post op and advance as tolerated Activity - Up with assist Weight Bearing: GAETANO CONCEPCIONE, and LLE NWB DVT prophylaxis: SCDs, lovenox Q12, d/c prior to orthopedic surgery on 06/18 GI prophylaxis: None Pain control: Acetaminophen 975 mg TID, dilaudid 1 mg/ml Q4H, oxycodone 5-10 mg Q4H, flexeril 5mg TID Disposition: will be difficult as patient is w/o insurance -- Patient should be seen in outpatient IR clinic 1-2 months post placement to discuss timing for filter removal. SUBJECTIVE: S: Nursing reports patient did well overnight, has had increasing pain, nursing feels is well controlled. He denies any nausea or vomiting. OBJECTIVE: Filed Vitals: 06/18/22 0755 BP: 149/77 Pulse: 100 Resp: 20 Temp: 37.1 ??C (98.7 ??F) Weight: GEN - lying in bed in traction, visibly uncomfortable PULM - non-labored breathing on 1.5L NC CV - tachycardic ABD - soft, non-tender, non-distended - rangel in place EXT - RLE in traction BMP Lab Results Component Value Date/Time NA 137 06/18/2022 0450 K 3.8 06/18/2022 0450 CHLORIDE 105 06/18/2022 0450 CO2 23 06/18/2022 0450 GLU 137 (H) 06/18/2022 0450 UN 12 06/18/2022 0450 CR 0.66 (L) 06/18/2022 0450 CA 8.3 (L) 06/18/2022 0450 CBC Lab Results Component Value Date/Time WBC 7.80 06/18/2022 0450 RBC 3.37 (L) 06/18/2022 0450 HGB 9.6 (L) 06/18/2022 0450 HCT 28.8 (L) 06/18/2022 0450 PLT 191 06/18/2022 0450 RADIOLOGY: Ultrasound of venous lower extremity bilaterally: Impression: 1. Nonocclusive deep venous thrombosis in the proximal right femoral vein. 2. No evidence of deep venous thrombosis in left lower extremity. Discussed with G5 and Staff. Alize Herrera MS, 06/18/2022 8:24 AM Resident: Elias Au MD, saw the patient with the medical student and performed, or re-performed, the physical exam and medical decision-making and have verified the accuracy of all the medicalstudent documentation and edited as necessary. Linda Au MD, 06/18/2022 10:21 AM FACULTY NOTE I saw and evaluated the patient 06/18/2022. I discussed with the resident and agree with the resident???s findings and plan documented in the resident???s note from above. Any revisions by me are documented. Patrice Hollins M.D., Graham.Trav.Gwendolyn. [facility] Department of Surgery Alpesh Live MD - 06/18/2022 5:53 AM CDT Orthopaedic Surgery Progress Note 06/18/2022 Assessment/Plan: Kesha Hill is a 46 y.o. male : Orthopaedic Injuries: Comminuted, complex right vertical shear sacral fracture Right inferior pubic rami fracture with high pubic root fracture Right non-displaced distal radius fracture Associated Injuries: 1. T12 compression fx 2. Rectal hematoma Procedures 06/18 CRPP pelvis, ORIF anterior pelvis Plan 06/18/2022 - IVC filter today - OR today for R CRPP transsacral screws, possible ORIF anterior pelvis - NPO Patient at high risk for ileus so start with clear liquid diet and advance diet as tolerated. for OR thursday for pelvis fixation. Recommend SCDs and lovenox x 6 weeks for DVT ppx. Patientshould remain on bedrest, NWB BLE. Currently in 25# R distal femoral traction. Trauma Primary Activity: Bedrest Weight bearing status: NWB BLE, NWB RUE Antibiotics/Tetanus: None at this time from ortho perspective Diet: Ok for regular diet, DVT prophylaxis: Recommend LVX 30 BID and mechanical while in the hospital Wound Care: Maintain traction pin sites c/d/i Pain management: transition from IV to orals as tolerated. Physical Therapy/Occupational Therapy: Eval & treat, gait transfers, ROM, ADL's. Consults: Recommend thorough urologic w/u Follow-up: TBD Disposition: Admit to trauma, will require OR during this hospital admission S: NAEON, AF, VSS, NC 1.5L. Tired this am. Now new numbness/tingling. Heparin gtt started overnight. O: Vitals: 06/17/22 1559 06/17/22 1940 06/18/22 0018 06/18/22 0344 BP: 134/64 130/74 126/70 Cuff Location: Right Arm Right Arm Right Arm Pulse: 113 114 99 96 Resp: 18 18 18 18 Temp: 37.4 ??C (99.3 ??F) 37.4 ??C (99.4 ??F) 37.2 ??C (98.9 ??F) 36.8 ??C (98.3 ??F) TempSrc: Oral Oral Oral Oral SpO2: 99% 98% 97% 98% Weight: Height: Exam: Gen: No acute distress. Resp: Non-labored breathing RLE: Traction pin in place w 25lbs of weight. Fires EHL/FHL/Gsc/TA, SILT S/S/SP/DP/T dist, no pain with passive stretch of toes. Toes wwp, compartments soft. Exam unchanged from consult note. Lab Results Component Value Date/Time WBC 7.80 06/18/2022 0450 WBC 7.32 06/17/2022 0507 WBC 14.21 (H) 06/15/20221919 HGB 9.6 (L) 06/18/2022449 HGB 9.8 (L) 06/17/2022 0507 HGB 13.0 (L) 06/15/20221919 HGB 13.7 06/15/2022 192 PLT 191 06/18/2022449 PLT 181 06/17/2022 0507 PLT 294 06/15/2022 1920 CR 0.66 (L) 06/18/2022 0450 CR 0.82 06/17/2022 0507 CR 1.00 06/15/2022 1920 Alpesh Live MD Orthopaedic Surgery, PGY-3 Orthopedic Staff Note: Liz Yanes - 06/17/2022 2:37 PM CDT Pt was screened. He is currently Ineligible for [facility]. We have applied for [employer] Pending proof of income. 2020 Taxes. Santana Arellano - 06/17/2022 11:22 AM CDT CC Assessment Expected DC Date: 06/20/2022 Brief Patient Summary: Patient is a 46 y.o. male admitted on 06/15/2022 with Fall from scaffolding. Multiple injuries, spine fx, hip fx ASSESSMENT Social Information Decision Maker at Admission: Self Living Situation: Home Patient Identified Support System: Services Receiving: None Complex Medical Needs: None Transportation Used for Discharge: family will pick pack worker Safety Concerns: None Behavioral Health Concerns: None Primary Insurance: N/A Secondary Insurance: N/A PLAN Plan/Interventions Discharge Plan: Home Risks for Readmission: None SUMMARY Patient would like to DC home where could help. He is uninsured. He has received 3 doses of Covid vaccine quality manager will continue to follow until DC Patrice Hollins MD - 06/17/2022 10:48 AM CDT Trauma SURGERY PROGRESS NOTE - MS3/PGY 1 Kesha Luisa : 1975 Sex: male ASSESSMENT/PLAN: 46 y.o.male with history of falling off scaffolding structure with estimated drop of 30 feet. Patient found to have several injuries, listed below. He is currently stable. Tertiary exam performed on 06/16 and patient was found to have right wrist pain with a subsequent right distal radial fracture identified with follow up XR. Ortho team is following and aware of new findings. Neurosurgery consulted for spinal fractures. -R Sacral fracture -R acetabular fracture -R inferior pubic rami fx -T12 compression fracture -Rectal hematoma -Intraarticular fracture of R distal radius -L2-L5 transverse process fractures Pelvic Fractures: - Ortho consulted, plans for surgical intervention tomorrow - NPO at midnight, will d/c lovenox this evening - Patient is currently in traction - urinalysis positive for RBCs, XR cystogram negative for bladder rupture will consider CT imaging to further r/o bladder injury - Hemoglobin is stable, will continue to monitor R Distal Radius Fracture: - Ortho team aware of this tertiary finding, will await recs T12 Compression and L2-L5 TP Fractures: - Neurosurgery consulted, plans for TLSO treatment and upright Xrs Maintenance: Diet: Regular right now, NPO at 0000 on 06/18, will start at clear liquids post op and advance as tolerated Activity - Bedrest Weight Bearing: RUE, RLE, and LLE NWB DVT prophylaxis: SCDs, lovenox Q12, d/c prior to orthopedic surgery on 06/18 GI prophylaxis: None Pain control: Acetaminophen 975 mg TID, dilaudid 1 mg/ml Q4H, oxycodone 5-10 mg Q4H, flexeril 5mg TID Disposition: TBD SUBJECTIVE: S: Nursing reports patient did well overnight, slept most of night and took pain medications PRN. POintake good. Patient was not out of bed. LABS: BMP Lab Results Component Value Date/Time NA 137 06/17/2022 0507 K 3.6 06/17/2022 0507 CHLORIDE 105 06/17/2022 0507 CO2 23 06/17/2022 0507 GLU 118 (H) 06/17/2022 0507 UN 13 06/17/2022 0507 CR 0.82 06/17/2022 0507 CA 8.1 (L) 06/17/2022 0507 CBC Lab Results Component Value Date/Time WBC 7.32 06/17/2022 0507 RBC 3.43 (L) 06/17/2022 0507 HGB 9.8 (L) 06/17/2022 0507 HCT 29.4 (L) 06/17/2022 0507 PLT 181 06/17/2022 0507 RADIOLOGY: Ultrasound of venous lower extremity bilaterally: pending Sharon Alize, MS, 06/17/2022 10:49 AM I Linda Au MD, saw the patient with the medical student and performed, or re-performed, the physical exam and medical decision-making and have verified the accuracy of all the medical student documentation and edited as necessary. FACULTY NOTE I saw and evaluated the patient Today, 06/17/2022. I discussed with the resident and agree with the resident???s findings and plan documented in the resident???s note from above. Any revisions by me aredocumented. Patrice Hollins M.D., F.A.C.S. [facility] Department of Surgery Resident: Linda Au MD, 06/17/2022 1:47 PM Korin Garcia MD - 06/17/2022 6:41 AM CDT Orthopaedic Surgery Progress Note 06/17/2022 Assessment/Plan: Kesha Hill is a 46 y.o. male : Orthopaedic Injuries: Comminuted, complex right vertical shear sacral fracture Right inferior pubic rami fracture with high pubic root fracture Associated Injuries: 1. T12 compression fx 2. Rectal hematoma Procedures Anticipate OR during this hospital stay: likely Percutaneous pinning pelvis, right w possible ORIF symphysis. Plan 06/17/2022 - Consent today - Possible OR tomorrow for R CRPP transsacral screws, possible ORIF anterior pelvis - NPO [place] - Please hold evening LVX Patient at high risk for ileus so start with clear liquid diet and advance diet as tolerated. Likelyplan for OR thursday for pelvis fixation. Recommend SCDs and lovenox x 6 weeks for DVT ppx. Patientshould remain on bedrest, NWB BLE. Currently in 25# R distal femoral traction. Trauma Primary Activity: Bedrest Weight bearing status: NWB BLE Antibiotics/Tetanus: None at this time from ortho perspective Diet: Ok for regular diet, DVT prophylaxis: Recommend LVX 30 BID and mechanical while in the hospital Wound Care: Maintain traction pin sites c/d/i Pain management: transition from IV to orals as tolerated. Physical Therapy/Occupational Therapy: Eval & treat, gait transfers, ROM, ADL's. Consults: Recommend thorough urologic w/u Follow-up: TBD Disposition: Admit to trauma, will require OR during this hospital admission S: HROVATH, VSS, RA. Resting comfortably this am. O: Vitals: 06/16/22 1505 06/16/22 1954 06/16/22 2303 06/17/22 0400 BP: 122/74 136/68 114/62 148/68 Cuff Location: Left Arm Right Arm Right Arm Right Arm Pulse: 98 98 104 77 Resp: 18 18 14 Temp: 37.3 ??C (99.1 ??F) 37.4 ??C (99.3 ??F) 37.3 ??C (99.1 ??F) 36.6 ??C (97.9 ??F) TempSrc: Oral Oral Oral Oral SpO2: 98% 99% 96% 100% Weight: Height: Exam: Gen: No acute distress. Resp: Non-labored breathing RLE: Traction pin in place w 25lbs of weight. Fires EHL/FHL/Gsc/TA, SILT S/S/SP/DP/T dist, no pain with passive stretch of toes. Toes wwp, compartments soft. Exam unchanged from consult note. Lab Results Component Value Date/Time WBC 7.32 06/17/2022 0507 WBC 14.21 (H) 06/15/2022 1920 HGB 9.8 (L) 06/17/2022 0507 HGB 13.0 (L) 06/15/2022 1920 HGB 13.7 06/15/2022 1920 PLT 181 06/17/2022 0507 PLT 294 06/15/2022 1920 CR 0.82 06/17/2022 0507 CR 1.00 06/15/2022 1920 Alpesh Live MD Orthopaedic Surgery, PGY-3 Orthopedic Staff Note: Patient discussed with resident and above documentation reviewed. Agree with daily progress note andcare plan as described above. Korin Garcia MD, 06/17/2022 7:19 PM Orthopedic Dept. Staff Physician Narciso Steele CO - 06/16/2022 4:05 PM CDT 06/16/22 Room R4.331. Danette O&P consult from Neurosurgery. Patient was seen for fitting and delivery of his custom TLSO. He was not fit at this time due to pending surgery. I will return to fit when able. Aman Mainorurow MILK WAGON DRIVER Ju[employer]lgeorgtete O&P [phone] Narciso Steele CO - 06/16/2022 12:08 PM CDT 06/16/22 Room R4.331 Danette O&P consult from Neurosurgery. Patient was seen for an evaluation for a custom TLSO. He suffered T12 and L1 compression fractures. Measurements were taken for a custom bi valve TLSO to be fabricated from. The goal is to provide triplanar support of his thoracic and lumbar vertebrae to facilitate healing. I will return later today for fitting and delivery. Aman Thurow MILK WAGON DRIVER Winkley O&P [phone] Edna Ibrahim MDIV - 06/16/2022 9:36 AM CDT SPIRITUAL CARE VISIT SUMMARY Kesha Hill : 1975 Sex: male LOS: 0 days Reason for visit: Referral Assessment: Pt/family uncertain/anxious/frustrated Intervention: Engage theological concerns;Compassionate support;Facilitate communication;Lead/support spiritual rituals Outcome: Situation assessed;Gratitude expressed;Pt/family report increased sense of peace/spiritual well-being;Stress observed as lessened;Ritual provided Notes: Provided supportive presence for [place] speaking, [facility] pt (with use of sales operations manager). Pt was in pain, and consented to healing touch being provided. He indicated that this practice assisted with his pain. Pt spoke about his recent move to [place], and how he likes it there, and likes living with his Gloria there. Pt was able to speak with the nurse about his pain, and communicate that to her. He welcomed prayer, which this provider offered in [place]. Edna has completed levels one and two of Healing Touch and level one of Reiki. This is an energy based, gentle (limited) touch healing modality, and this patient or patient's family consented to this practice. Plan: Spiritual Care Team is available to support patient and family as needed via pager [phone]. Edna Ibrahim MDIV, 06/16/2022 9:36 AM Pager: [phone] Oanh Moore MD - 06/16/2022 6:02 AM CDT NEUROSURGERY PROGRESS NOTE Kesha Hill : 1975 Sex: male Assessment: Kesha Hill is a 46 y.o. male admitted on 06/15/2022 after a fall from 30 feet, found to have T12, L1 compression fractures, L2,3 and 5 transverse process fractures. No myelopathy or radiculopathy, minimal back pain Plan: - Bedrest, HOB <30 - TLSO brace - ordered - UR XR when able to sit up/stand up - Neurosurgery will follow peripherally until able to obtain XR, please notify Neurosurgery when patient's activity restrictions are liberalized from Orthopedic perspective Patient assessment and plan were discussed with the chief resident, Dr. Brownlee Please contact the Neurosurgery resident on-call with any questions or new concerns. Oanh Moore MD, 06/16/2022 6:02 AM Neurosurgery Service Subjective: No acute events overnight. Objective: BP 128/70 (Cuff Location: Right Arm) Pulse 97 Temp 36.2 ??C (97.2 ??F) (Tympanic) Resp 15 Ht1.651 m (5' 5) Wt 92.4 kg (203 lb 12.8 oz) SpO2 97% BMI 33.91 kg/m?? General: No acute distress, lying in bed Pulmonary: Breathing normally on room air. Chest/Abdomen: Chest rise symmetric with inspiration. Abdomen soft, nontender, nondistended. Neurological: Mental status: Alert, awake. Oriented to self, date, and place. Normal speech and language. GCS15 Cranial Nerves: II-XII fully intact Motor: Follows commands in all four extremities Upper Extremities: RUE: 5/5 shoulder abduction. 5/5 elbow flex/ext. 5/5 wrist flex/ext. 5/5 hand pyrotechnics press tender. LUE: 5/5 shoulder abduction. 5/5 elbow flex/ext. 5/5 wrist flex/ext. 5/5 hand pyrotechnics press tender. Lower Extremities: RLE: 0/5 hip flexion. 0/5 knee flex/ext. 5/5 ankle plantar-/dorsiflexion. 5/5 EHL. LLE: 0/5 hip flexion. 0/5 knee flex/ext. 5/5 ankle plantar-/dorsiflexion. 5/5 EHL No movement in proximal BLE due to traction/pain Sensory: Sensation intact in all four extremities Coordination: Finger-nose and heel-morales intact intact bilaterally. Labs/Imaging: Labs: BMP Lab Results Component Value Date/Time NA 140 06/15/20221919 K 3.6 06/15/20221919 CHLORIDE 109 (H) 06/15/20221919 GLU 186 (H) 06/15/20221919 CR 1.00 06/15/20221919 CBC Lab Results Component Value Date/Time WBC 14.21 (H) 06/15/20221919 RBC 4.65 06/15/20221919 HGB 13.0 (L) 06/15/20221919 HGB 13.7 06/15/20221919 HCT 39.7 (L) 06/15/20221919 PLT 294 06/15/20221919 All imaging reviewed with the Neurosurgery chief resident. Alpesh Live MD - 06/16/2022 1:32 AM CDT Orthopaedic Surgery Progress Note 06/16/2022 Assessment/Plan: Kesha Hill is a 46 y.o. male : Orthopaedic Injuries: Comminuted, complex right vertical shear sacral fracture Right inferior pubic rami fracture with high pubic root fracture Associated Injuries: 1. T12 compression fx 2. Rectal hematoma Procedures Anticipate OR during this hospital stay: likely Percutaneous pinning pelvis, right w possible ORIF symphysis. Plan 06/16/2022 - Will determine OR timing this week Trauma Primary Activity: Bedrest Weight bearing status: NWB BLE Antibiotics/Tetanus: None at this time from ortho perspective Diet: Ok for regular diet, DVT prophylaxis: Recommend LVX 30 BID and mechanical while in the hospital Wound Care: Maintain traction pin sites c/d/i Pain management: transition from IV to orals as tolerated. Physical Therapy/Occupational Therapy: Eval & treat, gait transfers, ROM, ADL's. Consults: Recommend thorough urologic w/u Follow-up: TBD Disposition: Admit to trauma, will require OR during this hospital admission S: HORVATH, VSS, RA. Doing reasonably well. No new numbness/tingling to BLE. No bowel/bladder incontinence. O: Vitals: 06/15/22 2240 06/15/22 2319 06/15/22 2321 06/16/22 0110 BP: 125/85 127/81 Cuff Location: Right Arm Right Arm Patient Position: Lying Down Pulse: (!) 101 (!) 109 (!) 100 Resp: (!) 23 18 (!) 22 17 Temp: 35.9 ??C (96.7 ??F) TempSrc: Tympanic SpO2: 97% (!) 73% 98% 97% Exam: Gen: No acute distress. Resp: Non-labored breathing RLE: Traction pin in place w 25lbs of weight. Fires EHL/FHL/Gsc/TA, SILT S/S/SP/DP/T dist, no pain with passive stretch of toes. Toes wwp, compartments soft. Exam unchanged from consult note. Lab Results Component Value Date/Time WBC 14.21 (H) 06/15/20221919 HGB 13.0 (L) 06/15/20221919 HGB 13.7 06/15/20221919 PLT 294 06/15/20221919 CR 1.00 06/15/20221919 Alpesh Live MD Orthopaedic Surgery, PGY-3 Gideon Narvaez MD - 06/16/2022 12:[place] [address] [id number] PATIENT: KESHA HILL : 1975 DATE DICTATED: 06/16/2022 SURGERY STAFF DAILY PROGRESS NOTE DATE OF SERVICE: 06/16/2022 I saw and evaluated the patient. I discussed management with residents, BUFFER INFLATED PAD, and PAs on the Neurosurgery team and agree with documented findings and plan. Kesha is a 46-year-old who fell from 30 feet off scaffolding. He, fortunately, is neurologically intact. He has a number of fractures including a T12 and L1 compression fracture with mild kyphosis. He also has a right acetabular inferior pubic ramus fracture and a right sacral fracture. Neurologically,he is doing well. We are going to treat his spine fractures with a TLSO. We will get upright x-rays like usual. Hopefully, he will not develop progressive kyphosis. I think there is a lot of axial loading mechanism to his injury, so hopefully he will not be at too much risk. We will watch him carefully. Please see resident consult note dated 06/15. I personally reviewed the history, exam, images and plan and agree with note as written. Gideon Narvaez MD Staff Physician Neurosurgery Service Received in Drop Crew Laborer: 06/16/2022 18:59:09 M: /[id number] TB/MODL Patrice Hollins MD - 06/15/2022 7:18 PM CDT Trauma Staff I was notified via the trauma pager at: [phone] I evaluated/examined this patient at: aRRIVAL The patient arrived at: 06/15/2022 7:15 PM I was pre-notified: Yes Switchboard. Trauma Level: Tier 2 Staff Summary (full note will be with the resident H&P): Fell from [facility], 30 ft. Will plan head/c-spine/chest/abd/pelvis CT scan. Patrice Hollins MD, 06/15/2022 7:18 PM documented in this encounter H&P Notes Patrice Hollins MD - 06/15/2022 7:18 PM CDT TRAUMA SURGERY HISTORY AND PHYSICAL - PGY 1 Kesha CoombsTanya : 1975 Sex: male Patient Arrival Date and Time: 06/15/2022 19:15 History of Present Injury Event: Patient fell from a construction scaffold from approximately 30 feet high. He landed on right sided buttock area and found lying prone at the scene. Patient having pain in his lumbar back, sacral back,and right shoulder areas. LOC: No INJURY CAUSE: Fall. Estimated height of fall: 30 feet. Protective Devices: None Trauma Team Activated: Yes - Tier 2 Trauma Team Notified by: Tier Level page received at 1914 Staff Surgeon: Patrice Hollins Pediatric Patient < 15 years: No. HISTORY Past Medical History: No past medical history on file. Past Surgical History: No past surgical history on file. Social History: Occupational History Not on file Tobacco Use Smoking status: Never Smokeless tobacco: Not on file Substance and Sexual Activity Alcohol use: Not on file Drug use: Not on file Sexual activity: Not on file Social History Narrative Patient lives in [place], [place]. He is single and employed. Family History: No family history on file. Medications: No current outpatient medications Allergies: No Known Drug Allergies Patient accepts blood products: Not inquired of patient/family at this time REVIEW OF SYSTEMS 10 point ROS performed and negative unless otherwise stated in the HPI. PHYSICAL EXAM Vital Signs: BP: 112/81 (06/15/221926) Pulse: 88 (06/15/221926) Resp: (!) 23 (06/15/221926) SpO2: 97 % (06/15/221926) Temp: 36.3 ??C (97.3 ??F) (06/15/221929) Alex Coma Scale: Motor 6=Obeys commands Verbal 5=Oriented Eye opening 4=Spontaneous TOTAL 15 Neurologic: alert and oriented and moves all extremities HEENT Eyes: normal; pupils: equal Head: normocephalic, atraumatic Ears: normal externally; tympanic membranes: not examined Nose/sinus: normal Throat/Oropharynx: normal Face: normal Neck: cervical collar in place Chest: symmetric and equal rise Pulmonary: tachypneic Cardiovascular Heart: regular rate Peripheral vascular: pulses: right radial palpable, left radial palpable, left and right dorsalis pedis pulses palpable Gastrointestinal Abdominal:soft, nontender, nondistended; Abrasion on right flank area Rectal: normal tone Genitourinary: not examined Musculoskeletal Back: No evidence of injury, Brusing on right butt cheeks Extremities: Old ecchymosis on left arm, Old scar on R thigh PROCEDURES None performed REVIEW OF LABORATORY DATA Lab Results BMP Lab Results Component Value Date/Time NA 140 06/15/20221919 K 3.6 06/15/20221919 CHLORIDE 109 (H) 06/15/20221919 GLU 186 (H) 06/15/20221919 CR 1.00 06/15/20221919 CBC Lab Results Component Value Date/Time HGB 13.7 06/15/20221919 IMAGING RESULTS (Include outside hospital results) CXR: no obvious traumatic abnormalities Pelvis XR: R acetabular fx w/o dislocation, sacral fx FAST:negative CT-Head: no obvious traumatic abnormalities CT-Cervical Spine: no obvious traumatic abnormalities CT-Chest/Abdomen/Pelvis: as stated CT-Thoracic Spine: T12 compression fracture CT-Lumbar Spine: no obvious traumatic abnormalities Other: XR of R knee - traction pin placement R tib/fib, L tib/fib, L femur, R femur w/o any acute injuries ASSESSMENT Current known injuries: - Right acetabular fx - Sacral fx - T12 compression fx - Rectal hematoma TREATMENT PLAN (Include future diagnostic studies, procedures and surgery) Admit to [facility] Ortho Consult paged out at STAT. Neurosurgery consult paged out at 1945 Cardiac Monitoring Frequent neuro checks, CMS checks Incentive Spirometer Bedrest with C, T, & L spine precautions C-spine exam and possible clearance once final reads posted NPO until final reads on radiography Consult SINGER BACK TENDER and keep strict NPO if SINGER BACK TENDER consult not indicated at this time PT/OT when appropriate DVT ppx: SCD's, chemoprophylaxis to be held at this time due to Bleeding Tertiary exam in AM Will obtain urinalysis and if positive for blood, will move forward with a cystogram for further assessment to r/o any urologic injuries. Linda Au MD, 06/15/2022 7:40 PM FACULTY NOTE I saw and evaluated the patient 06/15/2022. I discussed with the resident and agree with the resident???s findings and plan documented in the resident???s note from above. Any revisions by me are documented. Patrice Hollins M.D., F.A.C.S. [facility] Department of Surgery documented in this encounter Procedure Notes Roberth Irene DO - 06/18/2022 12:23 PM CDTAssociated Order(s): .Post Sedation Immediate .Post Sedation Immediate Date/Time: 06/18/2022 12:23 PM Performed by: Roberth Irene DO Authorized by: Ronal Rouse MD There were no complications during sedation. Pre Procedure Diagnosis: Need for thromboembolization protection Post Procedure Diagnosis: Need for thromboembolization protection Infrarenal IVC filter placed. See Procedural note in Chart Review for further information regarding the procedure details. Roberth Irene DO, 06/18/2022 12:23 PM Associated attestation - Ronal Rouse MD - 06/18/2022 6:17 PM CDT Faculty Note I was present for the entire procedure. Zeenat Hui MD, RN - 06/18/2022 11:55 AM CDT IVC FILTER PROCEDURE NOTE D: Kesha Hill underwent the placement of an Inferior Vena Cava (IVC) Filter in Radiology on06/18/2022. Patient has known clots and at high risk. A: Monitoring equipment applied. Time out done. Yes Patient identity confirmed with 2 identifiers Yes Site marked Yes Patient groin prepped for sterility by technologist. Retrievable filter was placed. Medication given for sedation No Medication total dose given-Lidocaine 1% subcutaneous at insertion site by R: Introducer removed, pressure held to site for 5 minutes. Patient tolerated well P: Identification necklace and information card given. TRANSFER NOTE Report called to nurse of Kesha Hill at 1215 Patient transported back to [facility] via Bed. Accompanied by Tech and RN Patient's condition upon transfer VSS John Leon MD - 06/17/2022 6:16 PM CDTProcedure(s): SPLINT APPLICATION Right Upper Extremity Splint Application Indication: Right distal radius fracture Consent verbally obtained. Correct site identified. Neurovascular status check pre/post reduction and splinting. A well padded volar/dorsal slab splint was applied to the right forearm/wrist. Patient tolerated the procedure well without complication. John Leon MD Orthopaedic Surgery, PGY3 Pager: [phone] documented in this encounter Consult Notes Sultana uNñez, FernandoD - 06/26/2022 4:10 PM CDTAssociated Order(s): DISCHARGE MED REC FINAL REVIEW BY PHARMACY PHARMACY DISCHARGE NOTE Kesha Hill : 1975 Sex: male Pharmacy service was consulted for review of patient's discharge medications. Planned discharge medications are: Medication List Medications Indications acetaminophen 325 mg tablet Captree 3 tabletas (975 mg) por la boca 3 veces al porsche. (Take 3 tablets (975 mg) by mouth 3 times daily.) bisacodyl 10 mg suppository Commonly known as: DULCOLAX Unwrap and insert 1 suppository (10 mg) by Rectal route daily as needed for Constipation.Desenvuelva e inserte 1 supositorio (10 mg) por v??a rectal diariamente seg??n sea necesario para el estre??imiento. cyclobenzaprine 5 mg Tabs Commonly known as: FLEXERIL Take 1 tablet (5 mg) by mouth 3 times daily. Captree 1 tableta (5 mg) por la boca 3 veces al porsche. enoxaparin 40 mg/0.4 mL Sosy Commonly known as: LOVENOX Inject 0.4 mL (40 mg) subcutaneously every 12 hours for 4 doses. Inyecte 0,4 ml (40 mg) por v??a subcut??binu cada 12 horas en 4 dosis. GABApentin 400 mg Capsule Commonly known as: NEURONTIN Take 1 capsule (400 mg) by mouth 3 times daily. Captree 1 capsula (400 mg) por la boca 3 veces al porsche. glipiZIDE XL 10 mg extended release tablet Generic drug: glipiZIDE XL Take 1 tablet (10 mg) by mouth daily. Indications: Type 2 Diabetes Indications: Type 2 Diabetes hydrOXYzine pamoate 25 mg capsule Commonly known as: VISTARIL Take 1-2 capsules (25-50 mg) by mouth every 4 hours as needed (pain adjunct (give with opioid)).Captree 1-2 c??psulas (25-50 mg) por v??a oral cada 4 horas seg??n sea necesario (complemento para el dolor (administrar con opioide)). melatonin 3 mg tablet Take 1 tablet (3 mg) by mouth at bedtime as needed for Sleep. Captree 1 tableta (3 mg) por la boca a lahora de acostrase. metFORMIN 1000 mg tablet Commonly known as: GLUCOPHAGE Take 1 tablet (1,000 mg) by mouth twice daily with meals. Indications: Type 2 Diabetes Indications: Type 2 Diabetes oxyCODONE 5 mg tablet Commonly known as: ROXICODONE Captree 1 o 2 tabletas por la boca cada 4 horas rock sea necesario para el dolor. (Take 1-2 tablets (5-10 mg) by mouth every 4 hours as needed for Pain.) polyethylene glycol 3350 17 gm/scoop powder Commonly known as: MIRALAX/GLUCOLAX Take 17 g by mouth twice daily.Take 1 capful to 17 gm cuate mixed with full glass of water twice every day as directed.Captree 17 g por v??a oral dos veces al d??a. Captree 1 tap??n hasta la minerva de 17 g mezclado con un vaso lleno de agua dos veces al d??a seg??n las indicaciones. rivaroxaban 15 mg tablet Commonly known as: XARELTO Take 1 tablet (15 mg) by mouth twice daily with meals for 21 days. Indications: Blood Clot in a DeepVein. Captree 1 tableta (15 mg) por v??a oral dos veces al d??a con las comidas jennifer 21 d??as. 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 Start taking on: June 29, 2022 Indications: Blood Clot in a Deep Vein rivaroxaban 20 mg tablet Commonly known as: XARELTO Take 1 tablet (20 mg) by mouth daily with evening meal. Indications: Blood Clot in a Deep Vein.(Captree 1 tableta (20 mg) por v??a oral diariamente con la evonne. 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 Start taking on: July 20, 2022 Indications: Blood Clot in a Deep Vein sennosides-docusate sodium 8.6-50 mg tablet Commonly known as: STOOL SOFTENER/LAXATIVE Take 1 tablet by mouth twice daily. Captree 1 tableta por la boca 2 veces al porsche. sodium chloride 1 gm Tabs Take 2 tablets (2 g) by mouth 4 times daily. TOME DOS TABLETAS ORALMENTE 4 VECES AL PORSCHE tamsulosin 0.4 mg Capsule Commonly known as: FLOMAX Take 1 capsule (0.4 mg) by mouth daily after meal.Take 30 minutes after same meal each day. Do NOT crush or chew.Captree 1 c??psula (0,4 mg) por v??a oral todos los d??as despu??s de ethan comida. Captree 30 minutos despu??s de la misma comida todos los d??as. No triture ni mastique. Start taking on: June 27, 2022 Assessment: I have reviewed the patient's medications for discharge and have discussed the necessary changes with the provider. Changes have been made and medication list updated and complete. Please page with any questions. Sultana Nuñez PharmD 06/26/2022 16:11 For questions regarding this note, please contact pharmacist on service at [facility] ([employer]) or [phone]. If no response within needed timeframe, please contact central pharmacy via phone at [phone]. Theodora Serrano, DONALDR/Kira - 06/22/2022 12:33 PM CDT OCCUPATIONAL THERAPY ACUTE INITIAL EVALUATION Kesha Hill 06/22/2022 OT Discharge Recommendations Discharge Recommendations: Safety risk for discharge home today. Anticipate functional limitations will be resolved/addressed (see assessment in note). May need several days 3-4 days depending on pt's pain level and progress. *Family thinking about maybe staying in a hotel for 1 month. Apartment's bathroom door is narrow (2 feet 2 in with door opening/closing out) - will need to talk with PT about w/c width for patient - Paged PT to assess tomorrow Barriers to Discharge (OT): Adaptive Equipment needed for safe DC;Pain limiting ability to participate in ADL's / IADL's;Activity tolerance limiting ability to participate in ADL's / IADL's;Motor/physical impairments pose safety risk for DC home (Caregiver training in progress) Post Discharge Follow-up: TBD Supervision / Assistance Recommended (for home DC): Yes for ADL/IADLs Equipment Recommended: Equipment needs being determined (May need a commode and extended tub bench -will make final recommendations soon) Equipment Status: OT In-patient follow-up / recommended referrals: Continue skilled OT services to achieve the goals on the plan of care / maximize safety and independence with ADL's / IADL's - Recommended Frequency: 5x / week - Anticipated Duration of OT services: until OT goals are met - Interventions: ADL retraining, activity tolerance, functional mobility, positioning, caregiver education, and DME / Adaptive Equipment needs assessment Patient Name: Kesha Hill : 1975 Age: 46 y.o. Hospital Admit date: 06/15/2022 Today's Date: 06/22/2022 Occupational Profile Medical History relevant to OT referral: Primary Diagnosis: Active Problems: Fall, initial encounter Resolved Problems: * No resolved hospital problems. * Treatment Diagnosis: Need for assessment of motor function related to ADL's / IADL's to ensure safe DC planning. Restrictions/Precautions: Activity Level: Up in Chair Spinal Precautions: TLSO if HOB greater than 30 degrees Weight-bearing Restrictions: Right UE - NWB hand/wrist, OK to weight bear through elbow/forearm withplatform;Left LE - NWB;Right LE - NWB (*.bed to chair with assist, NWB RLE, LLE pivot transfers onlyElevation: RUE) Complies w/ Weight Bearing?: Yes Complies w/ Precautions?: Yes Hospital Course: Per MD Giselle Starks today's note: ASSESSMENT/PLAN: 46 y.o.male with history of falling off scaffolding structure with estimated drop of 30 feet. Patient found to have several injuries, listed below. Ortho team and Neurosurgery consulted for fractures. On 06/17, patient was found to have nonocclusive deep venous thrombosis in his proximal right femoralvein. On 06/18, patient underwent IVC filter placement and a CRPP of his pelvis for fixation. Due totrauma and hematuria, XR cystogram and CT urogram were obtained and negative for urologic injuries. Patient remains stable. Ortho to RTOR on 06/23 for ORIF of SI joint. Know injuries: -R Sacral fracture -R acetabular fracture -R inferior pubic rami fx -T12 compression fracture -Rectal hematoma -R distal radial fracture -L2-L5 transverse process fractures Pelvic Fractures: - Ortho team with plans to RTOR on 06/23 for ORIF of SI joint. NPO and Heparin held at midnight R Distal Radius Fracture: - Ortho team plans to convert short arm splint into short arm cast in the OR T12 Compression and L2-L5 TP Fractures: - TLSO applied R Lower Extremity DVT: - Continue heparin ggt - Once done with surgeries will transition from heparin ggt to oral anticoagulation. Maintenance: Diet: Regular Bowel Reg: miralax and senna-docusate daily BID, MoM daily, suppository PRN, water enema Activity - Bed to chair only with assist Weight Bearing: NWB BLE x 10 weeks, LLE pivot transfers only DVT prophylaxis: Heparin ggt GI prophylaxis: None Pain control: Acetaminophen 975 mg TID, dilaudid 1 mg/ml Q4H, oxycodone 5-10 mg Q4H, flexeril 5mg TID Disposition: will be difficult as patient is w/o insurance -- Patient should be seen in outpatient IR clinic 1-2 months post placement to discuss timing for filter removal. SUBJECTIVE: S: Doing well this morning. Pain is well managed. Has not had a BM. Is agreeable for a suppository and water enema. Past Medical History No past medical history on file. Comorbidities identified that impacted OT assessment and treatment planning? 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 : No Language Preference: [place] Prior Level of Function: ADLs/IADLs: No assistance required (Independent or modified independent) Functional Mobility: Independent without assistive device Gathering the above information required the following: Expanded chart audit / interview Evaluation In Flight [employer]uel[employer] Craftsman Used: No, certified bilingual staff Subjective: Cooperative Pain: Pain Rating With Activity (Numeric): (Yes,) Location: R side of pelvis/sacrum, avoiding to bear weight on R side when sitting at EOB Participation Significantly Limited?: Yes Action Taken: Nursing aware and addressing (*Pt requested pain meds) Patient Appearance: Lines- PICC Upper Extremity Function: Hand Dominance: Right L UE AROM & Strength WNL R UE : Shoulder AROM WFL. Did not assess elbow. Forearm immobilized Activities of Daily Living: Toileting: Dependent (less than 25% patient effort) Toileting Comments: *Attempted to use commode at bedside with A of 2. Pt able to sit at EOB leaning on left side, avoiding to bear weight on R side of pelvis/sacrum. Was able to stand with A of 1 and another person holding on R leg to avoid WB. Could not pivot to the left to transfer to commode due topain, requested to lie down and to tray bed oswald. A of [address]/remove bed oswald, pt sitting on bed oswald while wearing TLSO and HOB raised, unable to have a BM Upper Body Dressing: Dependent (less than 25% patient effort) Upper Body Dressing Comments: to don/doff TLSO Lower Body Dressing: Dependent (less than 25% patient effort) Lower Body Dressing Comments: to don B slipper socks Functional Mobility: Roll Left - FIM: Minimal assist (75% patient effort);Verbal cues Roll Right - FIM: Moderate assist (50% patient effort);Verbal cues Supine to/from Sit - FIM: Maximal assist (25% patient effort);Verbal cues Sit to/from Stand - FIM: Dependent (less than 25% patient effort) Sit to/from Stand - Method: From standard seat height;w/o Assistive device (*A of 2, 1 for standing balance and the other person to hold R LE to avoid WB) Toilet Transfer - FIM: Unable to perform (could not pivot to commode on L LE due to pain) Activity Tolerance/Endurance: Patient tolerates sitting at edge of bed. Cognition: Mental Status: Oriented x 3;Follows 2 step directions;Cooperative Denied hitting head or LOC Delirium assessment: Confusion Assessment Method (CAM) Delirium prevention / intervention appears indicated? No. Insight: Pt demonstrates insight into current condition and related safety considerations - Yes Problem solving: Pt able to complete basic functional problem solving - Yes Visual Perception: Pt reports visual changes - No Modifications to assessment process required: Moderate Modifications to assessment process included the followingModification of environment, Modification of instructions, Modification or grading of tasks / assessments used, Provision of physical assistance, and Therapeutic use of self Additional Treatment / Education Provided: Education / training was provided to patient and family regarding - Activities of daily living (ADL's): Bathing strategies and Toileting strategies - Functional mobility / transfer training: Toilet/commode transfer technique and sit<->stand - Weight bearing (WB) restrictions and impact on ADL's. Provided min verbal cues - DME / Adaptive equipment (AE) recommendations: Bathing equipment and Toileting equipment - Brace (TLSO): purpose, donning, doffing, wear schedule, skin integrity education Caregiver Training Status (OT): In progress Caregiver Training Comments (OT): 06/22 Saima mcginnis. Started education how to don/doff TLSO. Discussed possible AE for toileting and bathing, depending if w/c able to fit in bathroom. Bathroom door is 2 ft 2 in wide with door closing/opening going out. Once inside bathroom has a nice size (has pictures). There is a bath tub/shower. Discussed with to address w/c width with PT tomorrow Interdisciplinary Communication: RN: Pt unable to void sitting in bed oswald with HOB raised while wearing TLSO. Requesting pain meds PT: bathroom door is small, family has pictures - door is 2 feet 2 in with door opening/closing out.Needs to discuss w/c width with family. Barriers to Learning: language barrier (non-oneida Kuwaiti speaker) Rehab Potential: good ASSESSMENT: (See box at the top of note for additional information) This is a 46 y.o [place] speaking male s/p fall with multiple injuries/fractures. Denied hitting head or LOC. Pt is NWB on B LE, bed to chair transfers only with pivot transfer on L LE. He is also NWB on R UE - ok to use platform. Pt is following commands. He needs A of 1 to don/doff TLSO, Total A forLB dressing and Max A to get from supine/sitting at EOB. He is quite in a lot of pain. Was able to sit at EOB leaning on the left side and avoiding bearing weight on R side of pelvis/sacrum. Was able to stand with Max A of 1 and A of another person to hold R LE to avoid NWB. Could not pivot on L LE totransfer to bedside commode due to pain. here supportive. Started training on donning/doffing TLSO. Discussed possible toileting and bathing AE depending if pt's wheelchair able to fit through bathroom door. Paged PT to address w/c widthas able. Will continue to see and update recommendations. Family is thinking about pt and staying in a hotel if w/c not able to get in/out of bathroom door. Impairments: This patient demonstrates impairments in the followingMotor function: Strength / Musclepower Functional mobility Balance Endurance / activity intolerance Performance Deficits / Activity Limitations: The impairments listed above affect the patient's ability to safely and independently engage in the following occupations All Activities of Daily Living (ADL's) (i.e. grooming, dressing, toileting, bathing, etc.) All Instrumental Activities of Daily Living (IADLS's) (i.e. meal prep, money management, community mobility, shopping, etc.) Patient's Stated Goals: Did not state PLAN: See box at top of note for additional information. See care plan for OT goals (if indicated). Participated in goal setting and treatment planning: Patient, Family Agrees with goals and treatment plan: Patient - Yes, Family - Yes Plan For Next OT Session: --ADLs: UB dressing compensatory strategies, LB dressing compensatory strategies, and Toileting strategies --Functional Mobility/Transfers: Toilet/commode transfer technique --DME/AE recommendations: Bathing equipment and Toileting equipment Total treatment time: 55 minutes OT interventions and time spent on each: Eval: 30 minutes Self care/Home mgmt/ADL: 25 minutes Therapist: CLAUDIO Cordero Pager: [facility] Occupational Therapy Department Charlene Lindo, PT - 06/20/2022 12:41 PM CDT PHYSICAL THERAPY INPATIENT ACUTE EVALUATION Kesha CoombsBellolexie was seen 06/20/2022 for a Physical Therapy Evaluation. PT Discharge Recommendations Discharge Recommendations: Safety risk for discharge home today. Anticipate functional limitations will be resolved/addressed (see assessment in note). (Anticipate additional 3 sessions to clear for home) (06/20/221224) Barriers to discharge to home/community: Pain, Decreased Activity Tolerance, Falls Risk, and Weightbearing Status limiting mobility If discharging home, would need: 24 hr physical assistance. Post discharge follow-up: Outpatient PT recommended * (When cleared to ambulate) (06/20/22 122) Equipment Status: Equipment needs being determined (06/20/22 122) PT Equipment Recommended: Platform attachment;Front wheeled walker (06/20/22 122) DIAGNOSIS Patient Active Problem List Diagnosis Open wound of arm Open wound of arm without complication Fall, initial encounter PT Treatment Diagnosis: Difficulty in Walking R 26.2 Impaired Mobility Z 74.09 Activity Intolerance Z 73.89 Muscle Weakness M 62.81 Unsteadiness on Feet R 26.81 Acute Pain due to Trauma G 89.11 Edema R 60.9 PRECAUTIONS WB Restrictions: Activity Level Up in Chair (Specify Freq.in comments) bed to chair with assist, NWB RLE, LLE pivot transfers only Elevation: RUE Restriction/ROM LLE Restriction/ROM RLE Restriction/ROM RUE Weight Bearing Status RUE? Non WB ok for platform Weight Bearing Status LLE? Non WB pivot transfers only Weight Bearing Status RLE Non WB Falls Risk ACTIVITY Up in Chair WB Restrictions: Activity Level Up in Chair (Specify Freq.in comments) bed to chair with assist, NWB RLE, LLE pivot transfers only Elevation: RUE Restriction/ROM LLE Restriction/ROM RLE Restriction/ROM RUE Weight Bearing Status RUE? Non WB ok for platform Weight Bearing Status LLE? Non WB pivot transfers only Weight Bearing Status RLE Non WB Physical Therapy Orders: Orders Placed This Encounter Procedures PT EVALUATION AND TREATMENT Standing Status: Standing Number of Occurrences: 1 Order Specific Question: Reasons for eval? Answer: As Per Dx Order Specific Question: OK for out of bed activity? (Update Activity Order) Answer: No Order Specific Question: Reason for not being cleared out of bed activity Answer: Awaiting imaging results Order Specific Question: Reason for not being cleared out of bed activity Answer: Awaiting results of consulting team HISTORY Pertinent History: Per Linda Au MD 06/20: ASSESSMENT/PLAN: 46 y.o.male with history of falling off scaffolding structure with estimated drop of 30 feet. Patient found to have several injuries, listed below. He is currently stable. Tertiary exam performed on 06/16 and patient was found to have right wrist pain with a subsequent right distal radial fracture identified with follow up XR. Ortho team is following and aware of new findings. Neurosurgery consulted for spinal fractures. On 06/17, patient was found to have nonocclusive deep venous thrombosis in proximal right femoral vein. On 06/18, patient underwent IVC filter placement and surgical intervention with orthopedics for pelvic fracture fixation. Due to trauma and hematuria, XR cystogram and CT urogramobtained and negative for urologic injuries. Know injuries: -R Sacral fracture -R acetabular fracture -R inferior pubic rami fx -T12 compression fracture -Rectal hematoma -R distal radial fracture -L2-L5 transverse process fractures Pelvic Fractures: - Ortho following, may need further imaging to guide management plan - Hemoglobin is stable, will continue to monitor R Lateral Ankle Pain: - Obtain XR to r/o fracture R Distal Radius Fracture: - Ortho team aware of this tertiary finding and reviewing treatment options, awaiting recommendations T12 Compression and L2-L5 TP Fractures: -TLSO applied - NSY updated on activity liberalization and TLSO fitting, so they can move forward with needed imaging studies R Lower Extremity DVT: - Continue heparin ggt - Will discuss plan for transitioning from heparin ggt to oral anticoagulation for this patient in the setting of a provoked DVT. Maintenance: Diet: Started at clear liquids post op and advance as tolerated Activity - Up with assist Weight Bearing: RUE, RLE, and LLE NWB DVT prophylaxis: Heparin ggt GI prophylaxis: None Pain control: Acetaminophen 975 mg TID, dilaudid 1 mg/ml Q4H, oxycodone 5-10 mg Q4H, flexeril 5mg TID Disposition: will be difficult as patient is w/o insurance -- Patient should be seen in outpatient IR clinic 1-2 months post placement to discuss timing for filter removal. Medical History No past medical history on file. SOCIAL HISTORY Information gathered from: Patient Home: Apartment Prior level of function: Independent w/ all activities. Baseline Ambulation: Independent community ambulation Assist available at home: Yes Stairs required at home: Apartment accessible by elevator SUBJECTIVE Patient's Stated Goals: Decrease pain, return home. Pain: Nonverbal Indication of pain in the RLE upon rolling to the L. Also pain in the R side of pelvis with sitting. 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 OBJECTIVE Initial patient presentation upon PT arrival: Pt awake and supine in bed with present. Skin: Intact skin that was able to be observed Braces/Splints: TLSO Cast Lines: Peripheral IV Restraints/Fall Management: None Vital Signs: Vital Signs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 and ice packs on the bottom of his foot seems to help with this. Discharge will be after ortho applies a new brace and takes xrays of RUE.More than likely tomorrow morning the patient will be going home. Pain is well controlled with PRN PO medications. Patient can make his needs known. He is pleasant and compliant with cares. Neurologic/Cognitive Within Defined Limits HEENT Within Defined Limits Cardiac Within Defined Limits Respiratory Within defined limits Neurovascular Assessment Within Defined Limits except for: Neurovascular RLE Sensation: Tingling and sensation decreased Gastrointestinal Assessment Within Defined Limits except for: Stool (unmeasured): 1 (06/26/22 1545) Stool Amount: moderate (06/26/22 1545) Stool Color: brown (06/26/22 1139) Stool Consistency: loose (06/26/22 1545) Genitourinary Within Defined Limits Musculoskeletal Assessment Within Defined Limits except for: Musculoskeletal Assessment: General Mobility: Generalized weakness and moderately impaired Range of Motion: RUE - moderately impaired and brace/immobilizer/splint/sling/cast LLE - severely impaired RLE - moderately impaired Integumentary Assessment Within Defined Limits except for: Skin Assessment Integrity - incision, abrasion(s) and cuts or scratches Patient Lines/Drains/Airways Status Active LDAs Name Placement date Placement time Site Days Peripheral IV 06/17/22 20 gauge;2 1/2 in length Anterior;Left Upper Arm 06/17/22 1830 -- 8 Wound Pretibial Proximal;Right 06/24/22 0700 -- 2 Incision: Hip Upper;Right;Lateral 06/18/22 1759 -- 7 Incision: Buttocks Right 06/24/22 1411 -- 2 Incision: Abdomen Medial 06/24/22 1600 -- 2 Cast RUE 06/24/22 0700 -- 2 Psychosocial Within Defined Limits Nursing Assessment - Vargas Whitman RN - 06/26/2022 1:05 PM CDT Nursing Assessment Head to Toe Head to Toe Assessment Shift Summary A/Ox4. Neuro intact and unchanged. Pt. is able to make needs known and use call light effectively. Pt. is [place] speaking and needs a booster pump oiler for complex conversations. Pt. family is at bedside . Pt. pain is well controlled using PRN medications. Pt is able to pivot to commode with one assist on left lower leg. Pt had a moderate, loose BM this AM in the commode. Pt is able to use bedside urinal for urination. PT/OT practiced pivoting onto the commode with the TLSO brace this AM. Pt. Is pleasant and cooperative. Vargas Whitman RN, 06/26/2022 1:07 PM Neurologic/Cognitive Within Defined Limits HEENT Within Defined Limits Cardiac Within Defined Limits Chest Pain: No Cryolite Recovery Operator - no Pacemaker: Pacemaker: No Respiratory Within defined limits Neurovascular Within Defined Limits Gastrointestinal Within Defined Limits Stool (unmeasured): 1 (06/26/22 1139) Stool Amount: moderate (06/26/22 1139) Stool Color: brown (06/26/22 113) Stool Consistency: loose (06/26/22 113) Genitourinary Within Defined Limits Comments: Rangel removed at 1045 Musculoskeletal Assessment Within Defined Limits except for: Musculoskeletal Assessment: General Mobility: Mildly impaired Range of Motion: General - mildly impaired RUE - brace/immobilizer/splint/sling/cast Integumentary Assessment Within Defined Limits except for: Skin Assessment Moisture - dry Integrity - incision Patient Lines/Drains/Airways Status Active LDAs Name Placement date Placement time Site Days Peripheral IV 06/17/22 20 gauge;2 1/2 in length Anterior;Left Upper Arm 06/17/22 1830 -- 8 Wound Pretibial Proximal;Right 06/24/22 0700 -- 2 Incision: Hip Upper;Right;Lateral 06/18/22 1759 -- 7 Incision: Buttocks Right 06/24/22 1411 -- 1 Incision: Abdomen Medial 06/24/22 1600 -- 1 Cast RUE 06/24/22 0700 -- 2 Psychosocial Within Defined Limits Vargas Whitman RN, 06/26/2022 1:05 PM Nursing Assessment - Shanice Nieves RN - 06/26/2022 4:21 AM CDT Nursing Assessment Head to Toe Head to Toe Assessment Shift Summary Pt is alert and oriented times four, makes needs known, neuro intact. Pain well managed with Prn Oxycodone and Vistaril. Pt has voiding without difficulty overnight, no BM yet, Hemovac is patent, small amount. CMS intact to right upper and lower extremities. Pt continue to be non weight bearing on arm and right leg. Shanice Nieves, RASHEL, 06/26/2022 4:38 AM Neurologic/Cognitive Within Defined Limits HEENT Within Defined Limits Cardiac Within Defined Limits Respiratory Within defined limits Neurovascular Within Defined Limits Gastrointestinal Assessment Within Defined Limits except for: Additional GI Signs/Symptoms: constipation Stool Amount: small (06/24/22 0631) Stool Color: dark brown (06/24/22 06) Stool Consistency: loose (06/24/22630) Genitourinary Within Defined Limits Musculoskeletal Assessment Within Defined Limits except for: Musculoskeletal Assessment: General Mobility: Generalized weaknessJoint Tenderness right - hip Range of Motion: RUE - RLE - severely impaired Integumentary Assessment Within Defined Limits except for: Skin Assessment Integrity - incision Patient Lines/Drains/Airways Status Active LDAs Name Placement date Placement time Site Days Peripheral IV 06/17/22 20 gauge;2 1/2 in length Anterior;Left Upper Arm 06/17/22 1830 -- 8 Drain Abdomen 06/24/22 1548 -- 1 Wound Pretibial Proximal;Right 06/24/22 0700 -- 1 Incision: Hip Upper;Right;Lateral 06/18/22 1759 -- 7 Incision: Buttocks Right 06/24/22 1411 -- 1 Incision: Abdomen Medial 06/24/22 1600 -- 1 Cast RUE 06/24/22 0700 -- 1 Psychosocial Within Defined Limits Psychosocial Assessment: Family Behavior: attentive to patient, at bedside and not present Nursing Assessment - Elva Adamson RN - 06/25/2022 4:50 PM CDT Nursing Assessment Head to Toe Head to Toe Assessment Shift Summary Pt is alert and oriented and able to make needs known. Vitals are stable on room air. Neuro intact and unchanged. Pt is able to move right leg. Denied numbness/tingling. CMS intact. Pt. is able to makeneeds known and use call light appropriately. Pt is [place] speaking and needs a booster pump oiler for complex conversations. Pt's family is at bedside and is supportive and attentive. Patient rates right hippain 5-8/10, IV dilaudid, oxycodone and tylenol given throughout the shift and was partially effective. Hemovac draining bloody drainage. Pt was bladder scanned for > 700 cc. Pt was able to void 600cc. Hemovac had 5 cc of sanguineus drainage. Pt is pleasant and cooperative. Neurologic/Cognitive Within Defined Limits HEENT Within Defined Limits Cardiac Within Defined Limits Respiratory Within defined limits Comments: IS needs encouragement Neurovascular Within Defined Limits Gastrointestinal Within Defined Limits Stool Amount: small (06/24/22 06) Stool Color: dark brown (06/24/22630) Stool Consistency: loose (06/24/22630) Genitourinary Assessment Within Defined Limits except for: Voiding: Intermittent straight cath Comments: Bladder scanned for >700 Musculoskeletal Assessment Within Defined Limits except for: Musculoskeletal Assessment: General Mobility: Generalized weakness Range of Motion: General - mildly impaired RUE - brace/immobilizer/splint/sling/cast LLE - mildly impaired RLE - moderately impaired Comments: NWB on right upper and right lower extremities. TLSO when HOB>30 Integumentary Assessment Within Defined Limits except for: Skin Assessment Color/Characteristics - bruised (ecchymotic) Integrity - incision Comments: Hemovac drain in left hip area Patient Lines/Drains/Airways Status Active LDAs Name Placement date Placement time Site Days Peripheral IV 06/17/22 20 gauge;2 1/2 in length Anterior;Left Upper Arm 06/17/22 1830 -- 7 Drain Abdomen 06/24/22 1548 -- 1 Wound Pretibial Proximal;Right 06/24/22 0700 -- 1 Incision: Hip Upper;Right;Lateral 06/18/22 1759 -- 6 Incision: Buttocks Right 06/24/22 1411 -- 1 Incision: Abdomen Medial 06/24/22 1600 -- 1 Cast RUE 06/24/22 0700 -- 1 Psychosocial Within Defined Limits Elva Adamson, RN, 06/25/2022 4:50 PM Nursing Assessment - Vargas Whitman, RN - 06/25/2022 10:59 AM CDT Nursing Assessment Head to Toe Head to Toe Assessment Shift Summary A/Ox4. Neuro intact and unchanged. Pt. is able to make needs known and use call light effectively. Pt. is [place] speaking and needs a booster pump oiler for complex conversations. Pt. family is at bedside . Pt. pain is well controlled using PRN medications. Pt is able to pivot to commode with one assist on left lower leg. Pt refused Bowel Program oral medications this AM. Rangel was removed at 1045 per provider order, Pt is able to use bedside urinal for urination. PT/OT practiced pivoting onto the commode with the TLSO brace at 1030. Pt. Is pleasant and cooperative. Vargas Whitman, RN, 06/25/2022 11:02 AM Removed peripheral IV in left wrist at 1215. Vargas Whitman RN, 06/25/2022 1:06 PM No BM or urination since removal of rangel at 1045. Vargas Whitman RN, 06/25/2022 2:24 PM Neurologic/Cognitive Within Defined Limits HEENT Within Defined Limits Cardiac Within Defined Limits Chest Pain: No Cryolite Recovery Operator - no Pacemaker: Pacemaker: No Respiratory Within defined limits Neurovascular Within Defined Limits Gastrointestinal Within Defined Limits Stool Amount: small (06/24/22 06) Stool Color: dark brown (06/24/22 06) Stool Consistency: loose (06/24/22 06) Genitourinary Within Defined Limits Comments: Rangel removed at 1045 Musculoskeletal Assessment Within Defined Limits except for: Musculoskeletal Assessment: General Mobility: Mildly impaired Range of Motion: General - mildly impaired RUE - brace/immobilizer/splint/sling/cast Integumentary Assessment Within Defined Limits except for: Skin Assessment Moisture - dry Integrity - incision Patient Lines/Drains/Airways Status Active LDAs Name Placement date Placement time Site Days Peripheral IV 06/17/22 20 gauge;2 1/2 in length Anterior;Left Upper Arm 06/17/22 1830 -- 7 Peripheral IV 20 gauge Anterior;Left Forearm -- -- -- -- Drain Abdomen 06/24/22 1548 -- less than 1 Wound Pretibial Proximal;Right 06/24/22 0700 -- 1 Incision: Hip Upper;Right;Lateral 06/18/22 1759 -- 6 Incision: Buttocks Right 06/24/22 1411 -- less than 1 Incision: Abdomen Medial 06/24/22 1600 -- less than 1 Cast RUE 06/24/22 0700 -- 1 Psychosocial Within Defined Limits Vargas Whitman, RN, 06/25/2022 11:02 AM Nursing Assessment - Peace Waite, RN - 06/25/2022 6:45 AM CDT Nursing Assessment Head to Toe Head to Toe Assessment Shift Summary Pt A/O x4. Able to make needs known. Rangel in place, free of symptoms. Hemovac free of symptoms, output of 30cc. Pt complained of severe pain at 10/10 for majority of the night. Not well controlled with PRN oxycodone x2, dilaudid x3, and vistaril x1. aware. VSS on RA. Neuros intact. Peace Waite, RN, 06/25/2022 6:56 AM Neurologic/Cognitive Within Defined Limits HEENT Within Defined Limits Cardiac Within Defined Limits Respiratory Within defined limits Neurovascular Within Defined Limits Gastrointestinal Within Defined Limits Stool Amount: small (06/24/22630) Stool Color: dark brown (06/24/22630) Stool Consistency: loose (06/24/22630) Genitourinary Within Defined Limits Musculoskeletal Assessment Within Defined Limits except for: Musculoskeletal Assessment: General Mobility: Generalized weakness and moderately impairedJoint Tenderness right - hip and knee Range of Motion: General - moderately impaired RUE - brace/immobilizer/splint/sling/cast and moderately impaired Integumentary Assessment Within Defined Limits except for: Skin Assessment Integrity - incision and wound Comments: Incisions, hemovac Patient Lines/Drains/Airways Status Active LDAs Name Placement date Placement time Site Days Peripheral IV 06/17/22 20 gauge;2 1/2 in length Anterior;Left Upper Arm 06/17/22 1830 -- 7 Peripheral IV 20 gauge Anterior;Left Forearm -- -- -- -- Drain Abdomen 06/24/22 1548 -- less than 1 Wound Pretibial Proximal;Right 06/24/22 0700 -- 1 Incision: Hip Upper;Right;Lateral 06/18/22 1759 -- 6 Incision: Buttocks Right 06/24/22 1411 -- less than 1 Incision: Abdomen Medial 06/24/22 1600 -- less than 1 Cast RUE 06/24/22 0700 -- 1 Urinary Catheter OR Prone >2hrs 06/24/22 1315 -- less than 1 Psychosocial Within Defined Limits Nursing Assessment - Elva Adamson RN - 06/24/2022 8:48 PM CDT Nursing Assessment Head to Toe Head to Toe Assessment Shift Summary Pt is oriented X 4 but drowsy. Vitals are stable. Pt returned from surgery at 181. Neuro intact andunchanged. Pt is able to move right leg. Denied numbness/tingling and pain. CMS intact. Pt. is able to make needs known and use call light effectively. Pt. is [place] speaking and needs a booster pump oiler for complex conversations. Pt's family is at bedside and is supportive and attentive. Patient denied pain but did receive scheduled tylenol. Rangel draining clear yellow urine. Hemovac draining bloody drainage. Pt is pleasant and cooperative. Neurologic/Cognitive Within Defined Limits HEENT Within Defined Limits Cardiac Within Defined Limits Respiratory Within defined limits Comments: IS needs encouragement Neurovascular Within Defined Limits Gastrointestinal Within Defined Limits Stool Amount: small (06/24/22 0631) Stool Color: dark brown (06/24/22 06) Stool Consistency: loose (06/24/22 06) Genitourinary Assessment Within Defined Limits except for: Voiding: Urinary catheter in place Musculoskeletal Assessment Within Defined Limits except for: Musculoskeletal Assessment: General Mobility: Generalized weakness Range of Motion: General - mildly impaired RUE - brace/immobilizer/splint/sling/cast LLE - mildly impaired RLE - moderately impaired Comments: NWB on left upper and left lower extremities Integumentary Assessment Within Defined Limits except for: Skin Assessment Integrity - incision Comments: Hemovac drain in left hip area Patient Lines/Drains/Airways Status Active LDAs Name Placement date Placement time Site Days Peripheral IV 06/17/22 20 gauge;2 1/2 in length Anterior;Left Upper Arm 06/17/22 1830 -- 7 Peripheral IV 20 gauge Anterior;Left Forearm -- -- -- -- Drain Abdomen 06/24/22 1548 -- less than 1 Wound Pretibial Proximal;Right 06/24/22 0700 -- less than 1 Incision: Hip Upper;Right;Lateral 06/18/22 1759 -- 6 Incision: Buttocks Right 06/24/22 1411 -- less than 1 Incision: Abdomen Medial 06/24/22 1600 -- less than 1 Cast RUE 06/24/22 0700 -- less than 1 Urinary Catheter OR Prone >2hrs 06/24/22 1315 -- less than 1 Psychosocial Within Defined Limits Elva Adamson RN, 06/24/2022 8:48 PM Op Note Immediate - Hans Rosales MD - 06/24/2022 2:10 PM CDT [facility] Immediate Post Operative Note Note written: Day of Surgery Patient Name: Kesha Hill ( ) OR Date: 06/24/2022 1230 Procedure(s) and Anesthesia Type: * OPEN REDUCTION INTERNAL FIXATION RIGHT SI JOINT - General Pre-op History and Physical reviewed. Pre-Op Diagnosis Codes: * Pelvic ring fracture, closed, initial encounter () [S32.810A] Post-Op Diagnosis Codes: * Pelvic ring fracture, closed, initial encounter () [S32.810A] Surgeon(s) and Role: * Roosevelt Brown MD - Primary * Hans Rosales MD - Fellow * Miri Matthew MD - Fellow Antibiotics Administered vancomycin (VANCOCIN) injection Last given: 152 Frequency: INTRA-OP ONCE PRN * No tourniquets in log * Drain Abdomen (Active) Drainage Characteristics/Odor other (see comments) 06/24/22 1601 Drainage Amount small 06/24/22 1601 Dressing Appearance dry;intact 06/24/22 1601 Implant Name Type Inv. Item Serial No. Director Financial Planning Lot No. LRB No. Used Action SURGIFLO(AKA GEL FLOW) 2991 Hemostatic Agent SURGIFLO(aka Gel Flow) 2991 [employer] [id number] Right 1 Implanted GELFOAM(SURGIFOAM) SZ 100 3X5 (LARGE) 1974 Hemostatic Agent GELFOAM(SURGIFOAM) SZ 100 3X5 (LARGE) 1973 [employer] [id number] Right 1 Implanted 95MM ([id number]) Screw/[place] 95MM ([id number]) [employer]ER[employer]DINE [employer] Right 1 Implanted WASHER 13MM LARGE [id number] [employer] Washer WASHER 13MM LARGE [id number] LG BERNADINE [employer] Right 1 Implanted 3-HOLE (1179-007-03) Plate 3-HOLE (1179-007-03) [employer] Right 1 Implanted Intraoperative Findings: See dictation. Infection Present at Time of Surgery: No evidence of infection present EBL: 300 ml * No specimens in log * Complications: None Hans Rosales MD Ortho Traumaplasty Fellow 06/24/2022 Nursing Assessment - Vargas Whitman RN - 06/24/2022 11:01 AM CDT Nursing Assessment Head to Toe Head to Toe Assessment Shift Summary A/Ox4. Neuro intact and unchanged. Pt. is able to make needs known and use call light effectively. Pt. is [place] speaking and needs a booster pump oiler for complex conversations. Pt. family is at bedside . Pt. pain is well controlled using PRN medications. Pt had a BM this AM and is able to pivot to commodewith one assist on left lower leg. Pt is able to use bedside urinal for urination. PT/OT was able toget the pt into a wheelchair with his TLSO brace on at 1130. Pt. Is pleasant and cooperative. Vagras Whitman RN, 06/24/2022 11:04 AM Pt was transported to surgery via cart at 1200. Vargas Whitman RN, 06/24/2022 12:03 PM Neurologic/Cognitive Within Defined Limits HEENT Within Defined Limits Cardiac Within Defined Limits Respiratory Within defined limits Neurovascular Within Defined Limits Gastrointestinal Assessment Within Defined Limits except for: Additional GI Signs/Symptoms: nausea Comments: Nausea this AM; resolved with PRN medication Stool Amount: small (06/24/22630) Stool Color: dark brown (06/24/22630) Stool Consistency: loose (06/24/22630) Genitourinary Within Defined Limits Musculoskeletal Assessment Within Defined Limits except for: Musculoskeletal Assessment: Range of Motion: General - mildly impaired RUE - brace/immobilizer/splint/sling/cast LLE - mildly impaired RLE - moderately impaired Integumentary Within Defined Limits Patient Lines/Drains/Airways Status Active LDAs Name Placement date Placement time Site Days Peripheral IV 06/17/22 20 gauge;2 1/2 in length Anterior;Left Upper Arm 06/17/22 1830 -- 6 Wound Pretibial Proximal;Right 06/24/22 0700 -- less than 1 Incision: Hip Upper;Right;Lateral 06/18/22 1759 -- 5 Cast RUE 06/24/22 0700 -- less than 1 Psychosocial Within Defined Limits Vargas Whitman, RN, 06/24/2022 11:04 AM Nursing Assessment - Louise Mensah RN - 06/24/2022 12:30 AM CDT Nursing Assessment Head to Toe Head to Toe Assessment Shift Summary Shift Summary Pt A&Ox4. Mostly [place] speaking. VSS on RA. Some complaints of pain, relief with prn oxycodone. Multiple BM on bedpan. Voiding clear, yellow urine to urinal. NPO since midnight. X1 episode of nausea, relief with prn ondansetron. Heparin drip running, turned off at 0600. Can pivot to chair on LLE. NWB to RUE, LLE, and RLE. Slept well overnight. All safety precautions maintained. Neurologic/Cognitive Within Defined Limits HEENT Within Defined Limits Cardiac Within Defined Limits Respiratory Within defined limits Neurovascular Within Defined Limits Gastrointestinal Within Defined Limits Stool Amount: moderate (06/24/22350) Stool Color: dark brown (06/24/22350) Stool Consistency: soft;loose (06/24/22350) Genitourinary Within Defined Limits Musculoskeletal Assessment Within Defined Limits except for: Musculoskeletal Assessment: General Mobility: Generalized weakness and moderately impairedJoint Tenderness right - hip Range of Motion: RUE - severely impaired and brace/immobilizer/splint/sling/cast LLE - moderately impaired RLE - moderately impaired Comments: NWB to RUE, LLE, and RLE Integumentary Assessment Within Defined Limits except for: Skin Assessment Integrity - incision Patient Lines/Drains/Airways Status Active LDAs Name Placement date Placement time Site Days Peripheral IV 06/17/22 20 gauge;2 1/2 in length Anterior;Left Upper Arm 06/17/22 1830 -- 6 Incision: Hip Upper;Right;Lateral 06/18/22 2319 -- 5 Psychosocial Within Defined Limits Nursing Assessment - Louise Mensah RN - 06/23/2022 8:43 PM CDT Nursing Assessment Head to Toe Head to Toe Assessment Shift Summary Shift Summary Pt A&Ox4. Mostly [place] speaking. VSS on RA. Some complaints of abdominal pain and right hip pain, relief with prn oxycodone, dilaudid, and by having a BM. Given suppository, pt had been eight days without a BM, had moderate sized/liquid/dark brown BM on bedpan. Voiding clear, yellow urine to urinal, PVR 67 mls. Some complaints of nausea, relief after BM. Heparin drip running. Can pivot to chairon LLE. NWB to RUE, LLE, and RLE. Slept well overnight. All safety precautions maintained. Neurologic/Cognitive Within Defined Limits HEENT Within Defined Limits Cardiac Within Defined Limits Respiratory Within defined limits Neurovascular Within Defined Limits Gastrointestinal Assessment Within Defined Limits except for: Additional GI Signs/Symptoms: abdominal pain, abdominal discomfort, nausea and constipation Stool Amount: moderate (06/23/222129) Stool Color: dark brown (06/23/222129) Stool Consistency: liquid;loose (06/23/222129) Genitourinary Within Defined Limits Musculoskeletal Assessment Within Defined Limits except for: Musculoskeletal Assessment: General Mobility: Generalized weakness and moderately impairedJoint Tenderness right - hip Range of Motion: RUE - severely impaired and brace/immobilizer/splint/sling/cast LLE - moderately impaired RLE - moderately impaired Comments: NWB to RUE, LLE, and RLE Integumentary Assessment Within Defined Limits except for: Skin Assessment Integrity - incision Patient Lines/Drains/Airways Status Active LDAs Name Placement date Placement time Site Days Peripheral IV 06/17/22 20 gauge;2 1/2 in length Anterior;Left Upper Arm 06/17/221829 -- Incision: Hip Upper;Right;Lateral 06/18/221758 -- 5 Psychosocial Within Defined Limits Psychosocial Assessment: Family Behavior: at bedside Nursing Assessment - Todd Martinez RN - 06/23/2022 6:46 PM CDT Nursing Assessment Head to Toe Head to Toe Assessment Shift Summary Neurologic/Cognitive Assessment Within Defined Limits except for: HEENT Within Defined Limits Cardiac Within Defined Limits Respiratory Within defined limits Comments: RA Neurovascular Assessment Within Defined Limits except for: Neurovascular RUE Sensation: Tenderness Neurovascular RLE Sensation: Tenderness Gastrointestinal Assessment Within Defined Limits except for: Abdominal appearance: Rounded Additional GI Signs/Symptoms: constipation Comments: Passing gas. On bowel regimen Stool Amount: small (06/23/22 1557) Stool Color: dark brown (06/23/22 1557) Stool Consistency: loose;liquid (06/23/22 1557) Genitourinary Assessment Within Defined Limits except for: Voiding: Voiding without difficulty Comments: Using bedside urinal Musculoskeletal Assessment Within Defined Limits except for: Musculoskeletal Assessment: General Mobility: Generalized weakness Range of Motion: RUE - brace/immobilizer/splint/sling/cast and moderately impaired RLE - moderately impaired Comments: NWB RLE and RUE exception with plateform. Pivot transfer only LLE. TLSO for HOB > 30 orOOB Integumentary Assessment Within Defined Limits except for: Skin Assessment Integrity - incision Comments: [place] dressing to R hip intact Patient Lines/Drains/Airways Status Active LDAs Name Placement date Placement time Site Days Peripheral IV 06/17/22 20 gauge;2 1/2 in length Anterior;Left Upper Arm 06/17/221829 -- Incision: Hip Upper;Right;Lateral 06/18/221758 -- Psychosocial Assessment Within Defined Limits except for: Psychosocial Assessment: Observed Patient Behaviors: Pleasant Family Behavior: not present Nursing Assessment - Vargas Whitman RN - 06/23/2022 10:51 AM CDT Nursing Assessment Head to Toe Head to Toe Assessment Shift Summary A/Ox4. Neuro intact and unchanged. Pt. is able to make needs known and use call light effectively. Pt. is [place] speaking and needs a booster pump oiler for complex conversations. Pt. family is at bedside . Pt. pain is well controlled using PRN medications. Straight cath was needed for the pt. to void at 0830, repeated bladder scans throughout the day should be completed to avoid excessive urine retention. Pt. has not had a BM, suppository and stool softeners have been given. Pt. Is pleasant and cooperative. Vargas Whitman RN, 06/23/2022 11:22 AM Pt reports paresthesia/pins and needles sensation on his right foot; heel, footpad, toes. Pt reportsthat this sensation was present before his fall, but has increased in severity after the fall and initial surgery. Provider notified. Vargas Whitman RN, 06/23/2022 11:38 AM Neurologic/Cognitive Within Defined Limits HEENT Within Defined Limits Cardiac Within Defined Limits Respiratory Within defined limits Neurovascular Within Defined Limits Gastrointestinal Within Defined Limits Genitourinary Assessment Within Defined Limits except for: Voiding: Intermittent straight cath Urine characteristics: , concentrated Comments: Straight cath necessary to void if pt. is unable to Musculoskeletal Assessment Within Defined Limits except for: Musculoskeletal Assessment: General Mobility: Mildly impairedJoint Tenderness right - hip and elbow Range of Motion: RUE - mildly impaired LLE - mildly impaired Integumentary Assessment Within Defined Limits except for: Skin Assessment Turgor - quick return to baseline Integrity - incision Comments: Incision dressings are clean, dry, and intact Patient Lines/Drains/Airways Status Active LDAs Name Placement date Placement time Site Days Peripheral IV 06/17/22 20 gauge;2 1/2 in length Anterior;Left Upper Arm 06/17/22 1830 -- 5 Incision: Hip Upper;Right;Lateral 06/18/22 1179 -- 4 Psychosocial Within Defined Limits Vargas Whitman RN, 06/23/2022 1:30 PM Nursing Assessment - Shanice Nieves RN - 06/23/2022 6:55 AM CDT Nursing Assessment Head to Toe Head to Toe Assessment Shift Summary Pt is alert and oriented times four, makes needs known. Pain well managed with Prn Oxycodone and Vistaril. Pt NPO since [place] for surgery today. Heparin stopped at 0300. Pt has voiding without difficulty overnight, no BM yet. CMS intact to right upper and lower extremities. Shanice Nieves RN, 06/23/2022 7:03 AM Neurologic/Cognitive Within Defined Limits HEENT Within Defined Limits Cardiac Within Defined Limits Respiratory Within defined limits Neurovascular Within Defined Limits Gastrointestinal Assessment Within Defined Limits except for: Additional GI Signs/Symptoms: constipation Genitourinary Within Defined Limits Musculoskeletal Assessment Within Defined Limits except for: Musculoskeletal Assessment: General Mobility: Generalized weaknessJoint Tenderness right - hip Range of Motion: RUE - RLE - severely impaired Integumentary Integumentary Patient Lines/Drains/Airways Status Active LDAs Name Placement date Placement time Site Days Peripheral IV 06/15/22 18 gauge Left Antecubital 06/15/22 -- -- 8 Peripheral IV 06/17/22 20 gauge;2 1/2 in length Anterior;Left Upper Arm 06/17/22 1830 -- 5 Incision: Hip Upper;Right;Lateral 06/18/22 1759 -- 4 Psychosocial Within Defined Limits Psychosocial Assessment: Family Behavior: attentive to patient, at bedside and interacting with patient Nursing Assessment - Natalia Ortiz RN - 06/22/2022 4:47 PM CDT Nursing Assessment Head to Toe Head to Toe Assessment BP 120/71 (Cuff Location: Right Arm) Pulse 88 Temp 37 ??C (98.6 ??F) (Axillary) Resp 16 Ht 1.651 m (5' 5) Wt 92.4 kg (203 lb 12.8 oz) SpO2 100% BMI 33.91 kg/m?? Shift Summary Pt A/O x4 and able to make needs known. VSS and on RA. Expresses pain in right hip - PRN pain meds and ice provided. Continuous heparin drip at 22 u/kg/hr. Two Anti Xa within normal range - rate continued. Pt indicates bloating and difficulty having BM - paged provider. Last BM 06/15/22. Attempted to use bed oswald several times duing shift however only a small amount of liquid stool was expelled. Pt also had difficulty urinating and subsequently straight cathed with output of 900 mL this afternoon. Pt felt much relief after straight cath. Hip incision is covered with island dressing which is CDI with no drainage. Spouse at bedside. Natalia Ortiz RN, 06/22/2022 4:51 PM Neurologic/Cognitive Within Defined Limits HEENT Within Defined Limits Cardiac Within Defined Limits Respiratory Within defined limits Neurovascular Within Defined Limits Gastrointestinal Assessment Within Defined Limits except for: Abdominal appearance: Distended Additional GI Signs/Symptoms: abdominal discomfort and constipation Genitourinary Assessment Within Defined Limits except for: Voiding: Intermittent straight cath Musculoskeletal Assessment Within Defined Limits except for: Musculoskeletal Assessment: General Mobility: Moderately impaired Range of Motion: RLE - Integumentary Assessment Within Defined Limits except for: Skin Assessment Integrity - incision Patient Lines/Drains/Airways Status Active LDAs Name Placement date Placement time Site Days Peripheral IV 06/15/22 18 gauge Left Antecubital 06/15/22 -- -- 7 Peripheral IV 06/17/22 20 gauge;2 1/2 in length Anterior;Left Upper Arm 06/17/22 1830 -- 4 Incision: Hip Upper;Right;Lateral 06/18/22 1759 -- 3 Psychosocial Within Defined Limits Nursing Assessment - Lexi Elliott RN - 06/22/2022 4:51 AM CDT Nursing Assessment Head to Toe Head to Toe Assessment Shift Summary Patient with [place] speaking, A&OX 4, able to make needs known. Breathing comfortable on RA. NWB RUE in splint/justine bandage. NWB RLE, LLE pivot transfer Only. Pain managed with prn oxycodone/hydroxyzine/Toradol. Infusing heparin running at 22 units, next antiXa at 0600. Voiding without difficulty.Passing gas, no BM yet, on bowel regimen. Slept majority of the night comfortable except during cares. Using call light appropriately. Will continue with current POC. Lexi Elliott, RN, 06/22/2022 4:56 AM Enema given at 0710 per MD order. Currently sitting on bedpan. Will report off to oncoming nurse. Lexi Elliott RN, 06/22/2022 7:41 AM Neurologic/Cognitive Assessment Within Defined Limits except for: Comments: A&OX 4, [place] speaker with minimum macedonian HEENT Within Defined Limits Cardiac Within Defined Limits Respiratory Within defined limits Comments: RA Neurovascular Assessment Within Defined Limits except for: Neurovascular RUE Sensation: Tenderness Neurovascular RLE Sensation: Tenderness Gastrointestinal Assessment Within Defined Limits except for: Abdominal appearance: Rounded Additional GI Signs/Symptoms: constipation Comments: Passing gas. On bowel regimen Genitourinary Assessment Within Defined Limits except for: Voiding: Voiding without difficulty Comments: Using bedside urinal Musculoskeletal Assessment Within Defined Limits except for: Musculoskeletal Assessment: General Mobility: Generalized weakness Range of Motion: RUE - brace/immobilizer/splint/sling/cast and moderately impaired RLE - moderately impaired Comments: NWB RLE and RUE exception with plateform. Pivot transfer only LLE. TLSO for HOB > 30 orOOB Integumentary Assessment Within Defined Limits except for: Skin Assessment Integrity - incision Comments: Island dressing to R hip intact Patient Lines/Drains/Airways Status Active LDAs Name Placement date Placement time Site Days Peripheral IV 06/15/22 18 gauge Left Antecubital 06/15/22 -- -- 7 Peripheral IV 06/17/22 20 gauge;2 1/2 in length Anterior;Left Upper Arm 06/17/22 1830 -- 4 Incision: Hip Upper;Right;Lateral 06/18/22 4559 -- 3 Psychosocial Assessment Within Defined Limits except for: Psychosocial Assessment: Observed Patient Behaviors: Pleasant Family Behavior: not present Nursing Assessment - Tori Morrissey RN - 06/21/2022 9:40 PM CDT Nursing Assessment Head to Toe Head to Toe Assessment Shift Summary A&O, able to make needs known, pleasant & cooperative w/ cares. [place] speaking but able tounderstand and communicate some [place]i. visiting at bedside helpful with cares. Turning and rolling, but not up out of bed. Not passing BM, bowel regiment implemented, passing gas. Not reporting pain or significant discomfort regarding constipation. Strong appetite, voiding with bedside urinal. CMS intact, denies numbness/tingling, pins and needles. Denies pain in RUE that is soft casted and JUSTINE wrapped, able to wiggle fingers. Pain localized in RLE, asleep post admin of PRNs, ice application and repositioning. Hip island dressing C/D/I, 2 lower leg 4 by 6 island dressings changed. Neurologic/Cognitive Within Defined Limits HEENT Within Defined Limits Cardiac Within Defined Limits Respiratory Within defined limits Neurovascular Within Defined Limits Gastrointestinal Assessment Within Defined Limits except for: Comments: No passing of BM Genitourinary Within Defined Limits Musculoskeletal Assessment Within Defined Limits except for: Musculoskeletal Assessment: General Mobility: Moderately impaired Integumentary Assessment Within Defined Limits except for: Skin Assessment Integrity - incision Patient Lines/Drains/Airways Status Active LDAs Name Placement date Placement time Site Days Peripheral IV 06/15/22 18 gauge Left Antecubital 06/15/22 -- -- 6 Peripheral IV 06/17/22 20 gauge;2 1/2 in length Anterior;Left Upper Arm 06/17/22 1830 -- 4 Incision: Hip Upper;Right;Lateral 06/18/22 6839 -- 3 Psychosocial Within Defined Limits Nursing Assessment - Marimar Reina, RASHEL - 06/21/2022 1:01 PM CDT Nursing Assessment Head to Toe Head to Toe Assessment Shift Summary Shift Summary Patient is alert and oriented x 4. Able to make needs known. Uses call light appropriately. On room air, tolerating well. Ate 100% breakfast and lunch meals, tolerated well. Pain managed with scheduledand as needed pain medications. Patient is independent with turns. Family at bedside and supportive.Pleasant and cooperative with cares. Will continue plan of cares. Neurologic/Cognitive Within Defined Limits HEENT Within Defined Limits Cardiac Within Defined Limits Respiratory Respiratory Neurovascular Within Defined Limits Gastrointestinal Within Defined Limits Genitourinary Within Defined Limits Musculoskeletal Assessment Within Defined Limits except for: Musculoskeletal Assessment: General Mobility: Generalized weakness Range of Motion: RUE - brace/immobilizer/splint/sling/cast and unable to assess Integumentary Assessment Within Defined Limits except for: Skin Assessment Integrity - incision Patient Lines/Drains/Airways Status Active LDAs Name Placement date Placement time Site Days Peripheral IV 06/15/22 18 gauge Left Antecubital 06/15/22 -- -- 6 Peripheral IV 06/17/22 20 gauge;2 1/2 in length Anterior;Left Upper Arm 06/17/221829 -- 3 Incision: Hip Upper;Right;Lateral 06/18/221758 -- 2 Psychosocial Within Defined Limits Nursing Assessment - Lexi Elliott RN - 06/21/2022 4:44 AM CDT Nursing Assessment Head to Toe Head to Toe Assessment Shift Summary Shift Summary Neurologic/Cognitive Assessment Within Defined Limits except for: Comments: A&OX 4, [place] speaker with minimum macedonian HEENT Within Defined Limits Cardiac Within Defined Limits Respiratory Within defined limits Comments: RA Neurovascular Assessment Within Defined Limits except for: Neurovascular RUE Sensation: Tenderness Neurovascular RLE Sensation: Tenderness Gastrointestinal Assessment Within Defined Limits except for: Abdominal appearance: Rounded Additional GI Signs/Symptoms: constipation Comments: Passing gas. On bowel regimen Genitourinary Assessment Within Defined Limits except for: Voiding: Voiding without difficulty Comments: Using bedside urinal Musculoskeletal Assessment Within Defined Limits except for: Musculoskeletal Assessment: General Mobility: Generalized weakness Range of Motion: RUE - brace/immobilizer/splint/sling/cast and moderately impaired RLE - moderately impaired Comments: NWB RLE and RUE exception with plateform. Pivot transfer only LLE. TLSO for HOB > 30 orOOB Integumentary Assessment Within Defined Limits except for: Skin Assessment Integrity - incision Comments: Island dressing to R hip intact Patient Lines/Drains/Airways Status Active LDAs Name Placement date Placement time Site Days Peripheral IV 06/15/22 18 gauge Left Antecubital 06/15/22 -- -- 6 Peripheral IV 06/17/22 20 gauge;2 1/2 in length Anterior;Left Upper Arm 06/17/221829 -- 3 Incision: Hip Upper;Right;Lateral 06/18/221758 -- 2 Psychosocial Assessment Within Defined Limits except for: Psychosocial Assessment: Observed Patient Behaviors: Pleasant Family Behavior: not present Nursing Assessment - Tori Morrissey RN - 06/20/2022 10:00 PM CDT Nursing Assessment Head to Toe Head to Toe Assessment Shift Summary A&O, [place] speaking, but able to understand and communicate some [place]i. RUE casted with JUSTINE wrap, RLE island dressing to hip. Reported R foot pain, ice given w/PRN medical records coder for partial pain relief. TLSO brace for out of bed activity. Feels uncomfortable to have a BM on bedpan at this time. Passing gas. Heparin running 22 U/kg/hr per Anti Xa. Neurologic/Cognitive Within Defined Limits HEENT Within Defined Limits Cardiac Within Defined Limits Respiratory Within defined limits Neurovascular Within Defined Limits Gastrointestinal Assessment Within Defined Limits except for: Additional GI Signs/Symptoms: constipation Genitourinary Within Defined Limits Musculoskeletal Assessment Within Defined Limits except for: Musculoskeletal Assessment: Range of Motion: RUE - brace/immobilizer/splint/sling/cast RLE - moderately impaired Integumentary Assessment Within Defined Limits except for: Skin Assessment Integrity - incision and abrasion(s) Patient Lines/Drains/Airways Status Active LDAs Name Placement date Placement time Site Days Peripheral IV 06/15/22 18 gauge Left Antecubital 06/15/22 -- -- 5 Peripheral IV 06/17/22 20 gauge;2 1/2 in length Anterior;Left Upper Arm 06/17/22 1830 -- 3 Incision: Hip Upper;Right;Lateral 06/18/22 1759 -- 2 Psychosocial Within Defined Limits Interval Note Provider - Alpesh Live MD - 06/20/2022 2:19 PM CDT Cross cover note Discussed patient's right distal radius fracture with Dr. Vegas. Plan will be to treat this fracture non-operatively. We will plan to convert him to a cast. He is ok for platform weight bearing through his elbow as needed once he is able to get OOB. Remainder of care per consult note. Alpesh Live MD Orthopaedic Surgery, PGY-3 Nursing Assessment - Vargas Whitman RN - 06/20/2022 10:18 AM CDT Nursing Assessment Head to Toe Head to Toe Assessment Shift Summary A/O x4. Speaks [place], able to understand some [place]i; ice hockey coach needed for complex conversations. Able to make needs known and use call light effectively. Family in room, comprehends [place]i well. Assist of 1 to turn in bed. Able to use urinal. No BM today. IV fluids discontinued, Heparin infusing at 22 units/kg/hr. Patient and family extremely pleasant. Neurologic/Cognitive Within Defined Limits HEENT Within Defined Limits Cardiac Within Defined Limits Respiratory Within defined limits Comments: RA Neurovascular Within Defined Limits Gastrointestinal Within Defined Limits Genitourinary Assessment Within Defined Limits except for: Voiding: Voiding without difficulty and intermittent straight cath Comments: Is able to void independetly, but required straight cath Musculoskeletal Assessment Within Defined Limits except for: Musculoskeletal Assessment: General Mobility: Moderately impairedJoint Tenderness right - elbow, hip and knee Range of Motion: RUE - moderately impaired RLE - moderately impaired Comments: Pt. finds relief when elevating right leg w/ ice applied Integumentary Assessment Within Defined Limits except for: Skin Assessment Integrity - incision Comments: Pin sites clean, dry, intact Patient Lines/Drains/Airways Status Active LDAs Name Placement date Placement time Site Days Peripheral IV 06/15/22 18 gauge Left Antecubital 06/15/22 -- -- 5 Peripheral IV 06/17/22 20 gauge;2 1/2 in length Anterior;Left Upper Arm 06/17/22 1830 -- 2 Incision: Hip Upper;Right;Lateral 06/18/22 1759 -- 1 Psychosocial Within Defined Limits Comments: Pt. pleasant with family at bedside Vargas Whitman RN, 06/20/2022 10:24 AM Nursing Assessment - Loreto Vidales RN - 06/20/2022 6:44 AM CDT Nursing Assessment Head to Toe Head to Toe Assessment Shift Summary Shift Summary Vitals: 06/20/22 0314 BP: 137/65 Pulse: 87 Resp: 16 Temp: 36.1 ??C (97 ??F) SpO2: 96% VSS, A&Ox4, neuro intact, CMS intact, pt does note tingling in RLE. Pt moves well in bed. Heparin drip at 22 units/kg/hr, Antixa in goal range. Pt urinating well in bedside urinal. Ice applied to RLE. Pain managed with PRN pain medications. Continue on POC. Loreto Vidales, RN, 06/20/2022 6:47 AM Neurologic/Cognitive Within Defined Limits HEENT Within Defined Limits Cardiac Within Defined Limits Respiratory Within defined limits Neurovascular Assessment Within Defined Limits except for: Neurovascular RLE Sensation: Tingling Gastrointestinal Assessment Within Defined Limits except for: Additional GI Signs/Symptoms: constipation Genitourinary Within Defined Limits Musculoskeletal Assessment Within Defined Limits except for: Musculoskeletal Assessment: Range of Motion: RUE - moderately impaired LLE - moderately impaired RLE - moderately impaired Integumentary Assessment Within Defined Limits except for: Skin Assessment Integrity - incision Patient Lines/Drains/Airways Status Active LDAs Name Placement date Placement time Site Days Peripheral IV 06/15/22 18 gauge Left Antecubital 06/15/22 -- -- 5 Peripheral IV 06/17/22 20 gauge;2 1/2 in length Anterior;Left Upper Arm 06/17/22 1830 -- 2 Incision: Hip Upper;Right;Lateral 06/18/22 1759 -- 1 Psychosocial Within Defined Limits Nursing Focused Reassessment - Roger Fall RN - 06/19/2022 10:34 PM CDT Focused Reassessment Shift Summary Shift Summary Focused Reassessment Vitals: 06/19/222005 BP: 136/73 Pulse: Resp: 16 Temp: 36.4 ??C (97.5 ??F) SpO2: 96% S/P ORIF, PELVIS (Right: Pelvis) 06/18 Fall risk NWB ( BLE + RUE, ok to platform ) Bs checks No acute events Pt much more alert , able to make needs known. VSS. On RA for now. Neuros unchanged. Ongoing pain onRLE relieved by PRN Dilaudid, oxy and vistaril + ice. IV maint running at prescribed rate. Heparin drip running 20 units, next Anti Xa draw at 2400. No new skin issue noted. BUS for 225. Noted RLE dressing dried drainage. CMS intact. BS checks done, no coverage given. So far, no other concerns, pt asleep, call light within reach. Will continue pt's plan of care. Roger Fall RN, 06/19/2022 10:39 PM Nursing Assessment - Obie Salgado RN - 06/19/2022 6:13 PM CDT Nursing Assessment Head to Toe Head to Toe Assessment Shift Summary Suppository administered at 1615 after pain was under control. Rangel removed at 1640 per order sinceCT urogram was negative for ureteral injury and have not voided yet. Donned TLSO brace and upright X-rays were obtained after contacting neurosurgery. Pelvic X-ray also completed. No BM yet. Faint bowel sounds. Continue to monitor per POC. Neurologic/Cognitive Within Defined Limits HEENT Within Defined Limits Cardiac Assessment Within Defined Limits except for: Cryolite Recovery Operator - remote telemetry Respiratory Within defined limits Neurovascular Assessment Within Defined Limits except for: Neurovascular RUE Sensation: Tenderness Neurovascular LLE Pedal Pulse: 2+ Neurovascular RLE Sensation: Tenderness Pedal Pulse: 2+ Gastrointestinal Assessment Within Defined Limits except for: Additional GI Signs/Symptoms: not passing flatus and constipation Genitourinary Assessment Within Defined Limits except for: Comments: Rangel removed. Have not voided yet. Musculoskeletal Assessment Within Defined Limits except for: Musculoskeletal Assessment: General Mobility: Severely impaired Range of Motion: RUE - brace/immobilizer/splint/sling/cast and moderately impaired LLE - mildly impaired RLE - severely impaired Integumentary Assessment Within Defined Limits except for: Skin Assessment Integrity - incision and abrasion(s) Patient Lines/Drains/Airways Status Active LDAs Name Placement date Placement time Site Days Peripheral IV 06/15/22 18 gauge Left Antecubital 06/15/22 -- -- 4 Peripheral IV 06/17/22 20 gauge;2 1/2 in length Anterior;Left Upper Arm 06/17/22 1830 -- 1 Incision: Hip Upper;Right;Lateral 06/18/22 5190 -- 1 Psychosocial Assessment Within Defined Limits except for: Psychosocial Assessment: Family Behavior: at bedside and attentive to patient Nursing Assessment - Obie Salgado RN - 06/19/2022 2:50 PM CDT Nursing Assessment Head to Toe Head to Toe Assessment Shift Summary A&OX4. VSS. O2 weaned and sats maintained at high 96-98% on room air. Was reporting pain being under control and moving legs and denies pain with repositioning but in the afternoon, patient startedhaving excruciating pain on R pelvic and RLE. Repositioned, elevated, ice applied and pain meds given. On heparin drip and rate not changed due to therapeutic range. IV maintenance infusing at 100ml/hr. IV cefazolin administered. 75% of clear liquid diet intake. Per ortho, don't advance diet unless patient passes gas and has bowel sounds. Due to pain, pt. couldn't turn for suppository. Will administer once pain is under control. at bedside and very supportive. Will continue to monitor per POC. Neurologic/Cognitive Within Defined Limits HEENT Within Defined Limits Cardiac Assessment Within Defined Limits except for: Cryolite Recovery Operator - remote telemetry Respiratory Within defined limits Neurovascular Assessment Within Defined Limits except for: Neurovascular RUE Sensation: Tenderness Neurovascular LLE Pedal Pulse: 2+ Neurovascular RLE Sensation: Tenderness Pedal Pulse: 2+ Gastrointestinal Assessment Within Defined Limits except for: Additional GI Signs/Symptoms: not passing flatus and constipation Genitourinary Assessment Within Defined Limits except for: Voiding: Urinary catheter in place Urine characteristics: , delio Musculoskeletal Assessment Within Defined Limits except for: Musculoskeletal Assessment: General Mobility: Severely impaired Range of Motion: RUE - brace/immobilizer/splint/sling/cast and moderately impaired LLE - mildly impaired RLE - severely impaired Integumentary Assessment Within Defined Limits except for: Skin Assessment Integrity - incision and abrasion(s) Patient Lines/Drains/Airways Status Active LDAs Name Placement date Placement time Site Days Peripheral IV 06/15/22 18 gauge Left Antecubital 06/15/22 -- -- 4 Peripheral IV 06/17/22 20 gauge;2 1/2 in length Anterior;Left Upper Arm 06/17/22 1830 -- 1 Incision: Hip Upper;Right;Lateral 06/18/22 1759 -- less than 1 Urinary Catheter Unstable spine/pelvic fracture 06/16/22 0020 -- 3 Psychosocial Assessment Within Defined Limits except for: Psychosocial Assessment: Family Behavior: at bedside and attentive to patient Nursing Assessment - Roger Fall RN - 06/19/2022 2:56 AM CDT Nursing Assessment Head to Toe Head to Toe Assessment Shift Summary Shift Summary Vitals: 06/18/222044 BP: 137/81 Pulse: 95 Resp: 16 Temp: SpO2: 98% S/P ORIF, PELVIS (Right: Pelvis) 06/18 Fall risk NWB ( BLE + RUE, ok to platform ) Rangel ( Cauti prevention ) Bs checks No acute events [place] speaking : Lethargic but oriented x4, able to make needs known, uses call light. VSS, on 02 at 4L. Ongoing on on RLE relieved by PRN Oxy, vistaril and Dilaudid. No new skin issue other than charted. Incisional dressing cdi, no bleeding nor infection noted. CMS intact, denies numbness/tingling.Pt just c/o of being tired, explained pt about post of anesthesia and will eventually terrazas off, pt understood. BS checks done. Rangel intact putting out good UOP. Pt supposed to be restarted with hep driup, ness NGUYEN for orders, got stat order for anti Xa but confusing Heparin order; no heparin drip order even. Obtained Anti XA result but radio script writer not comfortable about Heparin order; notified Charge nurse and Tenured Float nurse and confrimed that treatment team need to revisit Heparin orders; paged again treatment team, awaiting for response/orders. Second Anti Xa drawn by rn labor and delivery, still haven't heard from treatment team. So far, no other concerns, pt asleep and compliant with cares, bed lowered, alarms on, call light within reach. Will continue pt's plan of care. Roger Fall RN, 06/19/2022 5:12 AM Neurologic/Cognitive Assessment Within Defined Limits except for: Level of Consciousness: Lethargic HEENT Within Defined Limits Cardiac Assessment Within Defined Limits except for: Cryolite Recovery Operator - remote telemetry Respiratory Assessment Within Defined Limits except for: Respiratory Assessment: Respirations: Dyspneic Neurovascular Within Defined Limits Gastrointestinal Assessment Within Defined Limits except for: Genitourinary Assessment Within Defined Limits except for: Voiding: Urinary catheter in place Musculoskeletal Assessment Within Defined Limits except for: Musculoskeletal Assessment: Range of Motion: LUE - mildly impaired RUE - brace/immobilizer/splint/sling/cast LLE - mildly impaired RLE - moderately impaired Integumentary Assessment Within Defined Limits except for: Skin Assessment Color/Characteristics - bruised (ecchymotic) Integrity - abrasion(s), wound and incision Patient Lines/Drains/Airways Status Active LDAs Name Placement date Placement time Site Days Peripheral IV 06/15/22 18 gauge Left Antecubital 06/15/22 -- -- 4 Peripheral IV 06/17/22 20 gauge;2 1/2 in length Anterior;Left Upper Arm 06/17/22 1830 -- 1 Incision: Hip Anterior;Left;Proximal;Upper 06/18/22 1759 -- less than 1 Urinary Catheter Unstable spine/pelvic fracture 06/16/22 0020 -- 3 Psychosocial Assessment Within Defined Limits except for: Interval Note Provider - Delmer Armenta MD - 06/18/2022 8:14 PM CDT Discussed with Dr. Matthew, fellow. Okay to restart heparin gtt immediately post op. Please page with questions. Delmer Armenta MD Nursing Assessment - Obie Salgado RN - 06/18/2022 5:30 PM CDT Nursing Assessment Head to Toe Head to Toe Assessment Shift Summary VSS. On 2L of Oxygen. IV dilaudid given once at 1503 for RLE pain mainly. Taken to OR at 1540. and daughter waiting at bedside. Will continue to monitor per upon return to floor. Neurologic/Cognitive Within Defined Limits HEENT Within Defined Limits Cardiac Within Defined Limits Respiratory Assessment Within Defined Limits except for: Comments: On 2L of O2 Neurovascular Assessment Within Defined Limits except for: Neurovascular RUE Sensation: Tenderness Neurovascular LLE Pedal Pulse: 2+ Neurovascular RLE Sensation: Tenderness Pedal Pulse: 2+ Gastrointestinal Within Defined Limits Genitourinary Assessment Within Defined Limits except for: Voiding: Urinary catheter in place Urine characteristics: , delio Musculoskeletal Assessment Within Defined Limits except for: Musculoskeletal Assessment: General Mobility: Severely impaired Range of Motion: RUE - brace/immobilizer/splint/sling/cast and moderately impaired LLE - mildly impaired RLE - severely impaired Integumentary Assessment Within Defined Limits except for: Skin Assessment Integrity - incision and abrasion(s) Patient Lines/Drains/Airways Status Active LDAs Name Placement date Placement time Site Days Peripheral IV 06/15/22 18 gauge Left Antecubital 06/15/22 -- -- 3 Peripheral IV 06/17/22 20 gauge;2 1/2 in length Anterior;Left Upper Arm 06/17/22 1830 -- less than 1 Urinary Catheter Unstable spine/pelvic fracture 06/16/22 0020 -- 2 Psychosocial Assessment Within Defined Limits except for: Psychosocial Assessment: Family Behavior: at bedside and attentive to patient Op Note Immediate - Miri Matthew MD - 06/18/2022 5:20 PM CDT [facility] Immediate Post Operative Note Note written: Day of Surgery Patient Name: Kesha Hill ( ) OR Date: 06/18/2022 1600 Procedure(s) and Anesthesia Type: * ORIF, PELVIS - Choice Pre-op History and Physical reviewed. Pre-Op Diagnosis Codes: * Pelvic ring fracture, closed, initial encounter () [S32.810A] Post-Op Diagnosis Codes: * Pelvic ring fracture, closed, initial encounter () [S32.810A] Surgeon(s) and Role: * Roosevelt Brown MD - Primary * Miri Matthew MD - Fellow Antibiotics Administered ceFAZolin (ANCEF) 2 g IVPB Last given: 1700 Frequency: INTRA-OP PRN ONCE MAY REPEAT * No tourniquets in log * * No LDAs found * Implant Name Type Inv. Item Serial No. Director Financial Planning Lot No. LRB No. Used Action 170MM, 75MM [id number] Scre[employer]/[place] 170MM, 75MM [id number] [employer] Right 1 Implanted Intraoperative Findings: see op note Infection Present at Time of Surgery: No evidence of infection present EBL: 10 ml * No specimens in log * Complications: none Trauma Primary Activity: Bed to chair only with assistance Weight bearing status: NWB RLE x 10 weeks, LLE pivot transfers only Pain management: Transition from IV to PO as tolerated. Antibiotics: Ancef x 24 hours. Diet: Begin with clear fluids and progress diet as tolerated. DVT prophylaxis: per primary given known DVT, recommend lovenox to start POD#0 and mechanical while in the hospital, discharge on lovenox x 6 weeks. Imaging: POD#1 CT bony pelvis. Labs: Hgb POD#1. Dressings: Keep clean, dry and intact x 2 days, reinforce as needed Physical Therapy/Occupational Therapy: Eval and treat. Follow-up: Clinic with Dr. Brown in 2 weeks AP/inlet/outlet pelvic x-rays needed. Disposition: Pending progress with therapies, pain control on orals, and medical stability. Miri Matthew MD 06/18/2022 18:49 Nursing Assessment - Obie Salgado RN - 06/18/2022 2:11 PM CDT Nursing Assessment Head to Toe Head to Toe Assessment Shift Summary A&OX4. VSS. On 2L of O2. C/o of pain on RLE and pelvic area. PRN oxycodone and vistaril given twice and IV dilaudid given once for pain. RLE in traction and CMS intact. Had fluoroscopy done this morning at 0900 and also had a IR procedure to place IVC filter. R groin incision free of symptoms withtegaderm dry and clean. NPO maintained for surgery today (ORIF of pelvis). NaCl infusing at 100ml/hr. Rangel patent with adequate output. Rangel cares provided. and daughter at bedside and supportive. Continue to monitor per POC. Neurologic/Cognitive Within Defined Limits HEENT Within Defined Limits Cardiac Within Defined Limits Respiratory Assessment Within Defined Limits except for: Comments: On 2L of O2 Neurovascular Assessment Within Defined Limits except for: Neurovascular RUE Sensation: Tenderness Neurovascular LLE Sensation: Tenderness Pedal Pulse: 2+ Neurovascular RLE Sensation: Tenderness Pedal Pulse: 2+ Gastrointestinal Within Defined Limits Genitourinary Assessment Within Defined Limits except for: Voiding: Urinary catheter in place Musculoskeletal Assessment Within Defined Limits except for: Musculoskeletal Assessment: General Mobility: Severely impaired Range of Motion: RUE - brace/immobilizer/splint/sling/cast and moderately impaired LLE - moderately impaired RLE - severely impaired Integumentary Assessment Within Defined Limits except for: Skin Assessment Integrity - incision and abrasion(s) Patient Lines/Drains/Airways Status Active LDAs Name Placement date Placement time Site Days Peripheral IV 06/15/22 18 gauge Left Antecubital 06/15/22 -- -- 3 Peripheral IV 06/17/22 20 gauge;2 1/2 in length Anterior;Left Upper Arm 06/17/22 1830 -- less than 1 Urinary Catheter Unstable spine/pelvic fracture 06/16/22 0020 -- 2 Psychosocial Assessment Within Defined Limits except for: Psychosocial Assessment: Family Behavior: at bedside and attentive to patient Clay Agarwal - Ellen Mays PA-C - 06/18/2022 11:41 AM CDT Ortho Cross Any New R DRF found on tert, 06/17/22. Patient placed into a short arm splint 06/17 and should remain NWB RUE in splint. Activity order updated. R DRF plan TBD pending discussion with staff. Plan for OR today for pelvis after IVC placed. Please keep NPO and hold AC. Ellen Mays PA-C, 06/18/2022 11:42 AM Nursing Assessment - Juanis Bee RN - 06/18/2022 3:48 AM CDT Nursing Assessment Head to Toe Head to Toe Assessment Shift Summary Pt has been sleeping/resting all night. Awakens to voice. Oxycodone, vistaril given for R leg pain. RLE remains in traction. RUE splint intact. NPO after midnight. Hep gtt stopped at 0225. Call light within reach. Neurologic/Cognitive Within Defined Limits HEENT Within Defined Limits Cardiac Within Defined Limits Respiratory Assessment Within Defined Limits except for: Comments: 1.5L O2 Neurovascular Assessment Within Defined Limits except for: Edema Present: Yes Left Lower Extremity: 2+ Comments: L ankle swelling Gastrointestinal Within Defined Limits Genitourinary Within Defined Limits Musculoskeletal Assessment Within Defined Limits except for: Musculoskeletal Assessment: General Mobility: Generalized weakness Integumentary Assessment Within Defined Limits except for: Skin Assessment Color/Characteristics - bruised (ecchymotic) Integrity - abrasion(s), cuts or scratches and rashes Patient Lines/Drains/Airways Status Active LDAs Name Placement date Placement time Site Days Peripheral IV 06/15/22 18 gauge Left Antecubital 06/15/22 -- -- 3 Peripheral IV 06/17/22 20 gauge;2 1/2 in length Anterior;Left Upper Arm 06/17/22 1830 -- less than 1 Urinary Catheter Unstable spine/pelvic fracture 06/16/22 0020 -- 2 Psychosocial Psychosocial Nursing Focused Reassessment - Juanis Bee RN - 06/17/2022 10:22 PM CDT Focused Reassessment Shift Summary Pt is sleepy, opens eyes to voice. IV dilaudid given for 8/10 RLE pain. RUE splint intact, good CMS.RLE remains in traction. Mild edema in RLE, good CMS, +2 pedal pulse. Rangel patent. IVF infusing. Hep gtt infusing at 16.6 mL/hr. at bedside for part of the evening, helpful and supportive. Call light within reach. Cognitive: Assessment Within Defined Limits except for: Neurologic/Cognitive Assessment: Level of Consciousness: Lethargic Arousal Level: Arouses to voice Respiratory: Assessment Within Defined Limits except for: Respiratory Assessment: Mechanical Device: Continuous Breath Sounds Normal: Yes Neurovascular: Assessment Within Defined Limits except for: Neurovascular RLE Pedal Pulse: 2+ Edema Present: Yes Left Upper Extremity: 2+ Right Lower Extremity: 1+ Comments: L hand swelling, R leg swelling Genitourinary: Assessment Within Defined Limits except for: Voiding: Urinary catheter in place Musculoskeletal: Assessment Within Defined Limits except for: Musculoskeletal Assessment: General Mobility: Generalized weakness Range of Motion: RUE - brace/immobilizer/splint/sling/cast RLE - brace/immobilizer/splint/sling/cast Comments: RUE splint, RLE traction Nursing Assessment - Natalia Ortiz RN - 06/17/2022 5:31 PM CDT Nursing Assessment Head to Toe Head to Toe Assessment BP 134/64 (Cuff Location: Right Arm) Pulse 113 Temp 37.4 ??C (99.3 ??F) (Oral) Resp 18 Ht 1.651 m (5' 5) Wt 92.4 kg (203 lb 12.8 oz) SpO2 99% BMI 33.91 kg/m?? Shift Summary Pt lethargic but oriented x4. VSS and on NC 1.5L. Expresses pain - PRN pain meds admininstered. Pt in traction and on bedrest. Rangel in place. Continuous pulse oximetyr. Provided ice for right arm fracture. Heparin drip started this shift due to blood clot found in leg. Spouse at bedside. Natalia Ortiz RN, 06/17/2022 5:35 PM Neurologic/Cognitive Within Defined Limits HEENT Within Defined Limits Cardiac Within Defined Limits Respiratory Assessment Within Defined Limits except for: Comments: NC 1.5L Neurovascular Within Defined Limits Gastrointestinal Within Defined Limits Genitourinary Assessment Within Defined Limits except for: Voiding: Urinary catheter in place Musculoskeletal Assessment Within Defined Limits except for: Musculoskeletal Assessment: General Mobility: Severely impaired Comments: Right arm fracture; Hip fracture Integumentary Within Defined Limits Patient Lines/Drains/Airways Status Active LDAs Name Placement date Placement time Site Days Peripheral IV 06/15/22 20 gauge Posterior;Right Hand 06/15/22 -- -- 2 Peripheral IV 06/15/22 18 gauge Left Antecubital 06/15/22 -- -- 2 Urinary Catheter Unstable spine/pelvic fracture 06/16/22 0020 -- 1 Psychosocial Within Defined Limits Nursing Assessment - Natalia Ortiz, RN - 06/17/2022 2:45 PM CDT Nursing Assessment Head to Toe Head to Toe Assessment BP 130/66 (Cuff Location: Right Arm) Pulse 109 Temp 37.8 ??C (100 ??F) Resp 18 Ht 1.651 m (5' 5) Wt 92.4 kg (203 lb 12.8 oz) SpO2 99% BMI 33.91 kg/m?? Shift Summary Pt is lethargic but oriented x4. VSS and on NC 1.5L. Temp slightly elevated this shift. Expresses pain - PRN pain meds administered. On bedrest with right leg in traction. Rangel in place. Provided ice packs for hip. NaCl infusing at 100 mL/hr. Family at bedside. Pt slept most of day. Pt is pleasant and compliant with cares. Natalia Ortiz, RN, 06/17/2022 2:48 PM Neurologic/Cognitive Within Defined Limits HEENT Within Defined Limits Cardiac Within Defined Limits Respiratory Assessment Within Defined Limits except for: Comments: NC 1.5 L Neurovascular Within Defined Limits Gastrointestinal Within Defined Limits Genitourinary Assessment Within Defined Limits except for: Voiding: Urinary catheter in place Musculoskeletal Assessment Within Defined Limits except for: Musculoskeletal Assessment: General Mobility: Severely impaired Comments: Hip Fracture Integumentary Within Defined Limits Patient Lines/Drains/Airways Status Active LDAs Name Placement date Placement time Site Days Peripheral IV 06/15/22 20 gauge Posterior;Right Hand 06/15/22 -- -- 2 Peripheral IV 06/15/22 18 gauge Left Antecubital 06/15/22 -- -- 2 Urinary Catheter Unstable spine/pelvic fracture 06/16/22 0020 -- 1 Psychosocial Within Defined Limits Nursing Assessment - Beba Rowley RN - 06/17/2022 12:00 AM CDT Nursing Assessment Head to Toe Head to Toe Assessment Shift Summary A/Ox4. Pleasant and cooperative. Denied numbness or tingling. RLE continues w/ 25 lbs traction. Traction pin sites w/ dressings CDI. C/o ongoing right hip pain for which he received Oxycodone & hydroxyzine x 2 as well as IV Dilaudid x 1 for breakthrough pain. Appeared to be sleeping soundly on reassessments and at present. Hourly rounding maintained. Continue monitoring & POC. Beba Rowley RN, 06/17/2022 4:53 AM Neurologic/Cognitive Within Defined Limits HEENT Within Defined Limits Cardiac Within Defined Limits Chest Pain: No Cryolite Recovery Operator - no Pacemaker: Pacemaker: No Comments: HR 90s-100s Respiratory Assessment Within Defined Limits except for: Breath Sounds Normal: Yes Comments: 1.5L supplemental O2 via NC Neurovascular Within Defined Limits Gastrointestinal Within Defined Limits Genitourinary Assessment Within Defined Limits except for: Voiding: Urinary catheter in place Musculoskeletal Assessment Within Defined Limits except for: Musculoskeletal Assessment: General Mobility: Severely impairedJoint Tenderness right - hip Range of Motion: RLE - brace/immobilizer/splint/sling/cast and severely impaired Comments: 25# traction to RLE Integumentary Assessment Within Defined Limits except for: Skin Assessment Color/Characteristics - bruised (ecchymotic) Integrity - incision Comments: Traction pins Patient Lines/Drains/Airways Status Active LDAs Name Placement date Placement time Site Days Peripheral IV 06/15/22 20 gauge Posterior;Right Hand 06/15/22 -- -- 2 Peripheral IV 06/15/22 18 gauge Left Antecubital 06/15/22 -- -- 2 Urinary Catheter Unstable spine/pelvic fracture 06/16/22 0020 -- 1 Psychosocial Within Defined Limits Psychosocial Assessment: Observed Patient Behaviors: Pleasant Verbalized Emotional State: Acceptance Nursing Assessment - Tori Morrissey RN - 06/16/2022 9:45 PM CDT Nursing Assessment Head to Toe Head to Toe Assessment Shift Summary A&O, [place] interpretor services, and at bedside [place]i speaking and can translate. BLE NWB, awaiting surgery 06/18. RLE in traction currently. Pain management with staying on top of PRN's. Pt able to eat this evening, as long as HOB less than 30. IVF running 100cc/hr as ordered. Sliding scale insulin not given per orders. Rangel patent, delio urine output at this time. Able to do slight turns in order to insert blanket or pillow for pressure reduction. Neurologic/Cognitive Within Defined Limits HEENT Within Defined Limits Cardiac Within Defined Limits Respiratory Within defined limits Neurovascular Within Defined Limits Gastrointestinal Within Defined Limits Genitourinary Assessment Within Defined Limits except for: Voiding: Urinary catheter in place Musculoskeletal Assessment Within Defined Limits except for: Musculoskeletal Assessment: General Mobility: Severely impaired Range of Motion: LLE - RLE - brace/immobilizer/splint/sling/cast Integumentary Within Defined Limits Patient Lines/Drains/Airways Status Active LDAs Name Placement date Placement time Site Days Peripheral IV 06/15/22 20 gauge Posterior;Right Hand 06/15/22 -- -- 1 Peripheral IV 06/15/22 18 gauge Left Antecubital 06/15/22 -- -- 1 Urinary Catheter Unstable spine/pelvic fracture 06/16/22 0020 -- less than 1 Psychosocial Within Defined Limits Discharge non-MD/non-DEVAN Summaries - Santana Arellano - 06/16/2022 3:00 PM CDT Summary: Case Management Assessment Went to visit patient in room for CM assessment. He had been taken to fluoroscopy. Will try visitingagain later today/tomorrow Nursing Assessment - Natalia Ortiz RN - 06/16/2022 1:11 PM CDT Nursing Assessment Head to Toe Head to Toe Assessment BP 125/76 (Cuff Location: Left Arm) Pulse 97 Temp 37.2 ??C (99 ??F) (Oral) Resp 18 Ht 1.651 m (5' 5) Wt 92.4 kg (203 lb 12.8 oz) SpO2 99% BMI 33.91 kg/m?? Shift Summary Pt A/O x4 and able to make needs known. VSS and on NC 1L. Pt is [place] speaking. Expresses severe pain in right hip - PRN pain meds administered. Paged team regarding unmanaged pain. Rangel in place. Pt is in traction and an assist of 3 for repositioning. CMS intact. NaCl infusing at 10 mL/hr. Family at bedside. Pt is pleasant and compliant with cares. Natalia Ortiz RN, 06/16/2022 1:15 PM Neurologic/Cognitive Within Defined Limits HEENT Within Defined Limits Cardiac Within Defined Limits Respiratory Assessment Within Defined Limits except for: Comments: NC 1L Neurovascular Within Defined Limits Gastrointestinal Within Defined Limits Genitourinary Assessment Within Defined Limits except for: Voiding: Urinary catheter in place Musculoskeletal Assessment Within Defined Limits except for: Musculoskeletal Assessment: General Mobility: Severely impaired Range of Motion: RLE - Comments: Traction for hip fracture Integumentary Within Defined Limits Patient Lines/Drains/Airways Status Active LDAs Name Placement date Placement time Site Days Peripheral IV 06/15/22 20 gauge Posterior;Right Hand 06/15/22 -- -- 1 Peripheral IV 06/15/22 18 gauge Left Antecubital 06/15/22 -- -- 1 Urinary Catheter Unstable spine/pelvic fracture 06/16/22 0020 -- less than 1 Psychosocial Within Defined Limits Trauma Tertiary Exam - Patrice Hollins MD - 06/16/2022 10:23 AM CDT TRAUMA TERTIARY EXAM - FACE HARDENER First Exam Kesha Luisa : 1975 Sex: male Subjective: Patient asleep, arouses to voice, reports 10/10 pain to right hip, denies any other significant pain at rest, denies chest pain, abdominal pain, pain to BUE, LLE, back or neck pain, denies any TBI symptoms. Exam completed with ice hockey coach services via IPad Admit Date & Time: 06/15/2022 7:15 PM No past medical history on file. Mental Status Adequate for Exam: Yes Examiner: Yaritza Gallegos APRN, CNP, 06/16/2022 10:23 AM Primary Team: [facility] Date/Time Completed: 06/16/2022 14:56 Vital Signs: Patient Vitals for the past 8 hrs: BP Pulse Resp Temp SpO2 06/16/22 0729 118/71 91 18 36.1 ??C (97 ??F) 99 % 06/16/22 0354 128/70 97 15 36.2 ??C (97.2 ??F) 97 % Glascow Coma Scale: Motor 6=Obeys commands Verbal 5=Oriented Eye opening 3=To speech TOTAL 14 General: Alert, cooperative, in no acute distress Neuro: Oriented x 3, moves all extremities, strength symmetrical, no sensory deficits, cranial nerves intact Head: Normocephalic. No lesions or tenderness. Midface stable. Eyes: Sclera white, no discharge, EOMI, PERRL Ears: External ears normal. Tympanic membranes clear b/l. Nose: External nares normal. No septal hematoma. Neck: Supple. No midline tenderness. Mouth: Oral mucosa pink dry and intact. No malocclusion. Cardiovascular: Rate as noted, regular rhythm, no murmur or rubs. Chest Wall: No focal tenderness to palpation, equal rate and rise Pulmonary: Breathing comfortably, breath sounds clear and equal bilaterally GI: Soft, non-distended, non-tender : No lesions present, no injuries, rangel in place, delio/blood tinged urine noted Back: No midline tenderness to palpation along entire spine on exam despite acute fractures Musculoskeletal: All joints with full active ROM; no deformity; stable pelvis. All long bones non-tender to palpation. With exception of RLE; #25 pounds of traction in place; CMS intact, LLE with full ROM, no pain or discomfort noted. Extremities: Warm, distal pulses intact, mild edema to RLE, lateral aspect of right wrist with pain tenderness and limited ROM on exam; Skin: Warm and dry without ecchymoses or lesions. Imaging Results CT Head: No acute intracranial pathology. CT C-Spine: 1. No fracture or subluxation of the cervical vertebrae. 2. No significant spinal canal or neural foraminal stenosis. 3. 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 CT T-Spine/CT L-Spine: 1. Suspected acute T12 compression fracture with mild vertebral body height loss. No retropulsion. 2. Acute compression fracture of L1 with approximately 20-30% of vertebral body height loss. Mild retropulsion resulting in mild central canal stenosis. Minimally displaced fracture of right transverseprocess of L2 and L3. Comminuted and displaced fracture of the right transverse process of L5, rightsacrum, right acetabulum and inferior pubic ramus. 3. Transitional anatomy with lumbarization of S1 segment. CT CAP: 1. Nondisplaced fracture of the right 12th rib posteriorly. Otherwise, no acute traumatic abnormalities in the chest. 2. Multiple pelvic fractures, including comminuted fracture of the right sacral ala, right superior and inferior pubic rami fractures, fracture of the right ischial spine, and transverse right acetabular fracture. Presacral hemorrhage, and hemorrhage along the right pelvic sidewall, without evidence for active extravasation. 3. Please see dedicated spinal reconstructions for T12 and lumbar spine fractures. Chest XR: Negative Pelvis XR: 1. Comminuted fracture of the sacrum. 2. Right superior and inferior pubic rami fractures. Pelvis XR: repeat: No significant change in alignment FAST Exam: Negative XR Right Femur: No fracture involving the right femur XR Left Femur: No acute fracture involving the left femur XR Left TIb Fib: No acute fracture XR Right Tib Fib : No definite acute fracture. XR Right Knee: Interval placement of traction pin in the distal femur. No associated complication XR Cystogram: results pending Alcohol Screening (for all patients > 11 years of age) No results found for: ETOH ROMY: not obtained Alcohol Use: No (screening complete) Next Step Patient has penetrating trauma (stab, GSW)?: No. Abbreviated Clinical Frailty Score: not applicable Assessment : Kesha Hill is a 46 y.o. male who fell from a construction scaffold from approximately 30 feet high. He landed on right buttock area and found lying prone at the scene. Patient having pain in his lumbar back, sacral back, and right shoulder areas. Imaging positive for multiple back and pelvic fractures. Orthopedics and neurosurgery consulted. No tentative plans for OR today, orthopedics with surgical plans on Thursday; traction in place. Tertiary exam completed this afternoon, exam positive for right wrist/distal FA pain, tenderness and swelling with limited ROM. Urinalysis positive for RBC, in the setting of an acute pelvic fracture; a cystogram was obtained; results pending. Current known injuries: - Right acetabular fx - Sacral fx - Pubic rami fracture; right - T12 compression fx - L1 compression fx with samll retroperitoneal hemorrhage - L2, L3, L5 TP fx - Rectal hematoma - 12 th rib fracture; right, non displaced New findings: Right wrist / distal FA pain Incidental Findings: -Incidental noted prominent left styloid process, which can be seen in False Pass syndrome Plan Imaging needed: right wrist / distal FA Labs needed: am Hgb/BMP Wound care plans(s): Location: right pin sites; Dressing: per orthopedics Suture/[place]: None Antibiotics: none per trauma Drains Present: none Rangel: Left in place due to pelvic fracture; OR plans, bed rest Lines: Peripheral DVT prophylaxis: Mechanical: SCDs and Chemical: Lovenox to start this evening; will hold prior to ORon Thursday Diet: ok for regular diet Activity: Bedrest C/T/L-Spine status: T/L precautions Weight-bearing status: NWB BLE Therapy: PT and OT; once medically appropriate Consulting Teams(s) Plan and/or Follow-up Recommendations: Orthopedic Recommendations -Patient discussed at rounds this AM with Dr Brown. -No plan for OR today. -Patient at high risk for ileus so start with clear liquid diet and advance diet as tolerated. -Likely plan for OR thursday for pelvis fixation. Final plan TBD. -Recommend SCDs and lovenox x 6 weeks for DVT ppx. -Patient should remain on bedrest, -NWB BLE. -Currently in 25# R distal femoral traction. Neurosurgery Recommendations: - Bedrest, HOB <30 - TLSO brace - ordered - UR XR when able to sit up/stand up - Neurosurgery will follow peripherally until able to obtain XR, - please notify Neurosurgery when patient's activity restrictions are liberalized from Orthopedic perspective Follow-Up Tertiary Exam: Not required; patient responsive and able to participate in clinical exam. Discharge Plan: Pending therapist(s) recommendations. Yaritza Gallegos, LES, BUFFER INFLATED PAD 06/16/2022 10:23 FACULTY NOTE I saw and evaluated the patient today 06/16/2022 with the advanced practice provider. Please see below for my documentation of the shared visit. Medical Decision Making Will work up right wrist pain. Patrice Hollins M.D., [place]. [facility] Department of Surgery Cross Cover - Ellen Mays PA-C - 06/16/2022 9:38 AM CDT Ortho Cross Cover Patient discussed at rounds this AM with Dr Brown. No plan for OR today. Patient at high risk for ileus so start with clear liquid diet and advance diet as tolerated. Likely plan for OR thursday for pelvis fixation. Final plan TBD. Recommend SCDs and lovenox x 6 weeks for DVT ppx. Patient should remain on bedrest, NWB BLE. Currently in 25# R distal femoral traction. Ellen Mays PA-C, 06/16/2022 9:41 AM Nursing Assessment - Lety Colon, RASHEL - 06/16/2022 2:43 AM CDT Nursing Assessment Head to Toe Head to Toe Assessment Shift Summary Patient admitted from the ED with right lower extremity traction. Patient reported falling while on a plywood scaffolding, landed on his buttock. Appears lethargic, sleepy, sleeping in between assessment. Report pain right leg and pelvis. Received oxycodone 10 mg orally with sips of water. Patient remains NPO. Sodium Chloride started at 100 ml/hr. Indwelling catheter patent with yellow odorous urine. Filed Vitals: 06/16/22 0110 BP: 127/81 Pulse: Resp: 17 Temp: 35.9 ??C (96.7 ??F) Neurologic/Cognitive Assessment Within Defined Limits except for: Level of Consciousness: Lethargic HEENT Within Defined Limits Cardiac Within Defined Limits Respiratory Assessment Within Defined Limits except for: Comments: Oxygen at 1 L/min via Nasal cannula Neurovascular Assessment Within Defined Limits except for: Neurovascular RLE Post Tibial Pulse: 2+ Pedal Pulse: 2+ Comments: Traction to right leg Gastrointestinal Within Defined Limits Genitourinary Assessment Within Defined Limits except for: Voiding: Urinary catheter in place Comments: Yellow urine - odorous Musculoskeletal Assessment Within Defined Limits except for: Musculoskeletal Assessment: General Mobility: Severely impairedJoint Tenderness right - knee Range of Motion: RLE - brace/immobilizer/splint/sling/cast Comments: Right knee traction, acetabulum/pelvic rim fracture Integumentary Assessment Within Defined Limits except for: Skin Assessment Integrity - abrasion(s) and cuts or scratches Patient Lines/Drains/Airways Status Active LDAs Name Placement date Placement time Site Days Peripheral IV 06/15/22 20 gauge Posterior;Right Hand 06/15/22 -- -- 1 Peripheral IV 06/15/22 18 gauge Left Antecubital 06/15/22 -- -- 1 Urinary Catheter Unstable spine/pelvic fracture 06/16/22 0020 -- less than 1 Psychosocial Assessment Within Defined Limits except for: Psychosocial Assessment: Observed Patient Behaviors: Pleasant Verbalized Emotional State: Acceptance Family Behavior: not present Comments: involved with care. ED Stabilization Note - Zo Huynh MD - 06/15/2022 7:25 PM CDT ED Stabilization Room Note Kesha Hill 1975 Sex: male Patient Arrival Date and Time: 06/15/2022 7:15 PM EM FACULTY: MD Orlin STABILIZATION RESIDENT: Zo Huynh MD, 06/16/2022 12:37 AM CONSULTANTS: Trauma Surgery, Orthopedics CHIEF COMPLAINT: Fall PRE-HOSPITAL EVENTS/HPI Kesha Hill is a 46 y.o. male with PMHx of DMII (not on insulin) who presents after fall. Patient was at work when when he was working on a scaffolding, and broke underneath his feet causing him to fall about 30 feet onto his bottom. Patient was complaining of right hip pain and lower back pain. Denies any numbness or tingling anywhere. Denies any head trauma or loss of consciousness. Patient was vitally stable in route to the hospital. He does not have any chest pain, headaches, nausea orvomiting, abdominal pain or any difficulty breathing. PAST MEDICAL HISTORY No past medical history on file. PAST SURGICAL HISTORY No past surgical history on file. SOCIAL HISTORY Social History Occupational History Not on file Tobacco Use Smoking status: Never Smokeless tobacco: Not on file Substance and Sexual Activity Alcohol use: Not on file Drug use: Not on file Sexual activity: Not on file MEDICATIONS Patient's Medications No medications on file ALLERGIES No Known Drug Allergies FAMILY HISTORY No family history on file. ROS: A ten point ROS was negative except for those systems mentioned above in the HPI. PRIMARY SURVEY Airway: Patent and protecting. Breathing: Spontaneous and non-labored. Circulation: Warm distal extremities. Intact Peripheral pulses. Disability: 4 - Opens eyes spontaneously 5 - Oriented, converses normally 6 - Obeys commands GCS 15 Exposure: Clothing removed. SECONDARY SURVEY VITAL SIGNS: ED Initial Vitals BP Pulse Resp Temp Temp Source SpO2 Current O2 Therapy SpCO ETCO2 Weight Group Weight Weight Type Height Please see flowsheet for additional vitals. Physical Exam: Vitals: BP 125/85 (Cuff Location: Right Arm, Patient Position: Lying Down) Pulse (!) 100 Temp 36.3 ??C (97.3 ??F) (Oral) Resp (!) 22 SpO2 98% GENERAL: Awake, in moderate distress from pain.. Lying on cart. HENT: Atraumatic. EYES: Pupils equal, round. No conjunctival pallor, sclerae clear. CHEST: No tenderness to palpation over anterior or posterior chest. CARDIOVASCULAR: Regular rate PULMONARY: Effort normal on RA. ABDOMEN: Soft, non-tener non-distended. No rebound, guarding or masses. NEUROLOGICAL: Alert. Awake. No focal sensory loss or muscular weakness. Normal speech, following commands. Moving all extremities. MUSCULOSKELTAL: Tenderness to palpation over the right buttocks, and gross hematoma. No midline tenderness in the back. INTEGUMENTARY: Warm. No rashes or ecchymoses. Normal color. PSYCHIATRIC: Appropriate affect. Thought and behavior is appropriate. EKG No orders to display LABS Laboratory results personally reviewed. Interpretations and resulting interventions, if any, can be found in Course and MDM. Labs Resulted Before Time of ED Departure CBC WITH PLTS/AUTO DIFF - Abnormal; Notable for the following components: Result Value WBC 14.21 (*) Hgb 13.0 (*) Hematocrit 39.7 (*) Automated Abs Neutrophil 10.31 (*) Abs Immature Granulocyte 0.26 (*) Abs Neutrophil 10.31 (*) All other components within normal limits ED CHEMISTRY LABS(NA,K,CL,CO2,GLU,CREAT,CA-IONIZED,ANION GAP) - Abnormal; Notable for the following components: Chloride 109 (*) Glucose 186 (*) ICA, pH Corrected 4.28 (*) All other components within normal limits FIBRINOGEN - Abnormal; Notable for the following components: Fibrinogen 199 (*) All other components within normal limits PTT (APTT) - Abnormal; Notable for the following components: APTT 21.4 (*) All other components within normal limits BLOOD GASES ED HEMOGLOBIN TOTAL (ED ONLY) LACTATE (LACTIC ACID) Narrative: Send specimen on ice! PRECAUTIONARY TUBE COVID-19 SURVEILLANCE Narrative: Preferred specimen is Nasopharyngeal swab Is the patient a healthcare employee: No Is the patient a [employer] ([facility]) Employee: No PROTHROMBIN (PT) & INR HS TROPONIN Narrative: First Occurrence of the Troponin order is to be drawn Stat by Nursing staff on the unit. EXTRA TUBE - SST EXTRA TUBE - CASTA[place]EDA LACTATE (LACTIC ACID) URINALYSIS,TOTAL RADIOLOGY/EKG INTERPRETATION Imaging results personally reviewed. Interpretations and resulting interventions, if any, can be found in Course and MDM. XR PELVIS AP* See Chart Review for Final Result Impression: No significant change in alignment. Reading Radiologist: Rizwan Cunningham XR KNEE RIGHT 2 V AP/LAT See Chart Review for Final Result Impression: Interval placement of traction pin. Reading Radiologist: Rizwan Cunningham XR FEMUR RIGHT AP + LAT* See Chart Review for Final Result Impression: No fracture involving the right femur. Reading Radiologist: Rizwan Cunningham XR FEMUR LEFT AP + LAT* See Chart Review for Final Result Impression: No acute fracture involving the left femur. Reading Radiologist: Rizwan Cunningham XR TIB FIB LEFT 2 V AP + LAT* See Chart Review for Final Result Impression: No acute fracture. Reading Radiologist: Rizwan Cunningham XR TIB FIB RIGHT 2 V AP + LAT* See Chart Review for Final Result Impression: No definite acute fracture. Reading Radiologist: Rizwan Cunningham CT CHEST/ABD/PELVIS W/IV CONT See Chart Review for Final Result Impression: 1. Nondisplaced fracture of the right 12th rib posteriorly. Otherwise, no acute traumatic abnormalities in the chest. 2. Multiple pelvic fractures, including comminuted fracture of the right sacral ala, right superior and inferior pubic rami fractures, fracture of the right ischial spine, and transverse right acetabular fracture. Presacral hemorrhage, and hemorrhage along the right pelvic sidewall, without evidence for active extravasation. 3. Please see dedicated spinal reconstructions for T12 and lumbar spine fractures. Reading Radiologist: Rizwan Cunningham CT SPINE THORACIC NO IV CON See Chart Review for Final Result Impression: 1. Suspected acute T12 compression fracture with mild vertebral body height loss. No retropulsion. 2. Acute compression fracture of L1 with approximately 20-30% of vertebral body height loss. Mild retropulsion resulting in mild central canal stenosis. Minimally displaced fracture of right transverseprocess of L2 and L3. Comminuted and displaced fracture of the right transverse process of L5, rightsacrum, right acetabulum and inferior pubic ramus. 3. Transitional anatomy with lumbarization of S1 segment. Reading Radiologist: Stephany Granda CT SPINE LUMBAR NO IV CON See Chart Review for Final Result Impression: 1. Suspected acute T12 compression fracture with mild vertebral body height loss. No retropulsion. 2. Acute compression fracture of L1 with approximately 20-30% of vertebral body height loss. Mild retropulsion resulting in mild central canal stenosis. Minimally displaced fracture of right transverseprocess of L2 and L3. Comminuted and displaced fracture of the right transverse process of L5, rightsacrum, right acetabulum and inferior pubic ramus. 3. Transitional anatomy with lumbarization of S1 segment. Reading Radiologist: Stephany Granda CT SPINE CERVICAL NO IV CON See Chart Review for Final Result Impression: 1. No fracture or subluxation of the cervical vertebrae. 2. No significant spinal canal or neural foraminal stenosis. 3. Suspected [place] syndrome on left. Reading Radiologist: Stephany Granda CT HEAD NO IV CONTRAST See Chart Review for Final Result Impression: No acute intracranial pathology. Catherine Traumatic Brain Injury Scale: Diffuse Injury 1 CATHERINE DIAGNOSTIC CATEGORIES OF ABNORMALITIES VISUALIZED ON CT SCANNING FOR TRAUMATIC BRAIN INJURY: Diffuse Injury 1: No visible intracranial pathology seen on CT scan. Diffuse Injury 2: Cisterns are present with shift 0-5 mm and/or lesion densities present. No high ormixed density lesion >25ml. May include bone fragments and foreign bodies. Diffuse Injury 3 (swelling): Cisterns compressed or absent with shift 0-5mm. No high or mixed density lesion > 25ml. Diffuse Injury 4 (shift): Shift > 5mm. No high or mixed density lesion > 25ml. Evacuated mass lesion: Any surgically evacuated lesion. Non evacuated mass lesion: High or mixed-density lesion > 25ml. Not surgically evacuated. Reading Radiologist: Stephany Granda XR PELVIS AP* See Chart Review for Final Result Impression: 1. Comminuted fracture of the sacrum. 2. Right superior and inferior pubic rami fractures. Reading Radiologist: Rizwan Cunningham XR CHEST 1 VIEW AP OR PA* See Chart Review for Final Result Impression: No acute abnormality. Reading Radiologist: Rizwan Cunningham ED US CRITICAL CARE Prelim Result ED Trauma eFAST Ultrasound Indications: Suspicion of Abdomen Fluid/Blood, Suspicion of Pneumothorax/Hemothorax, and Other general symptoms and signs Window: Cardiac Window, Heptorenal Window, Perisplenic Window, Pelvic Window, and Thoracic Window Findings: No Pericardial Effusion identified, No Free Intraperitoneal Fluid identified, No Pleural Effusion identified, and Lung Sliding Present Bilaterally Impression: No Pericardial Effusion identified, No Free Intraperitoneal Fluid identified, No PleuralEffusion identified, and No Pneumothorax Identified Zo Huynh MD, 06/15/2022 7:31 PM See Chart Review for Final Result XR PELVIS 5V AP/IN/OUTLET/JUDET* (Results Pending) XR PELVIS AP* See Chart Review for Final Result Impression: No significant change in alignment. Reading Radiologist: Rizwan Cunningham XR KNEE RIGHT 2 V AP/LAT See Chart Review for Final Result Impression: Interval placement of traction pin. Reading Radiologist: Rizwan Cunningham XR FEMUR RIGHT AP + LAT* See Chart Review for Final Result Impression: No fracture involving the right femur. Reading Radiologist: Rizwan Cunningham XR FEMUR LEFT AP + LAT* See Chart Review for Final Result Impression: No acute fracture involving the left femur. Reading Radiologist: Rizwan Cunningham XR TIB FIB LEFT 2 V AP + LAT* See Chart Review for Final Result Impression: No acute fracture. Reading Radiologist: Rizwan Cunningham XR TIB FIB RIGHT 2 V AP + LAT* See Chart Review for Final Result Impression: No definite acute fracture. Reading Radiologist: Rizwan Cunningham CT CHEST/ABD/PELVIS W/IV CONT See Chart Review for Final Result Impression: 1. Nondisplaced fracture of the right 12th rib posteriorly. Otherwise, no acute traumatic abnormalities in the chest. 2. Multiple pelvic fractures, including comminuted fracture of the right sacral ala, right superior and inferior pubic rami fractures, fracture of the right ischial spine, and transverse right acetabular fracture. Presacral hemorrhage, and hemorrhage along the right pelvic sidewall, without evidence for active extravasation. 3. Please see dedicated spinal reconstructions for T12 and lumbar spine fractures. Reading Radiologist: Rizwan Cunningham CT SPINE THORACIC NO IV CON See Chart Review for Final Result Impression: 1. Suspected acute T12 compression fracture with mild vertebral body height loss. No retropulsion. 2. Acute compression fracture of L1 with approximately 20-30% of vertebral body height loss. Mild retropulsion resulting in mild central canal stenosis. Minimally displaced fracture of right transverseprocess of L2 and L3. Comminuted and displaced fracture of the right transverse process of L5, rightsacrum, right acetabulum and inferior pubic ramus. 3. Transitional anatomy with lumbarization of S1 segment. Reading Radiologist: Stephany Granda CT SPINE LUMBAR NO IV CON See Chart Review for Final Result Impression: 1. Suspected acute T12 compression fracture with mild vertebral body height loss. No retropulsion. 2. Acute compression fracture of L1 with approximately 20-30% of vertebral body height loss. Mild retropulsion resulting in mild central canal stenosis. Minimally displaced fracture of right transverseprocess of L2 and L3. Comminuted and displaced fracture of the right transverse process of L5, rightsacrum, right acetabulum and inferior pubic ramus. 3. Transitional anatomy with lumbarization of S1 segment. Reading Radiologist: Stephany Granda CT SPINE CERVICAL NO IV CON See Chart Review for Final Result Impression: 1. No fracture or subluxation of the cervical vertebrae. 2. No significant spinal canal or neural foraminal stenosis. 3. Suspected [place] syndrome on left. Reading Radiologist: Stephany rGanda CT HEAD NO IV CONTRAST See Chart Review for Final Result Impression: No acute intracranial pathology. Catherine Traumatic Brain Injury Scale: Diffuse Injury 1 CATHERINE DIAGNOSTIC CATEGORIES OF ABNORMALITIES VISUALIZED ON CT SCANNING FOR TRAUMATIC BRAIN INJURY: Diffuse Injury 1: No visible intracranial pathology seen on CT scan. Diffuse Injury 2: Cisterns are present with shift 0-5 mm and/or lesion densities present. No high ormixed density lesion >25ml. May include bone fragments and foreign bodies. Diffuse Injury 3 (swelling): Cisterns compressed or absent with shift 0-5mm. No high or mixed density lesion > 25ml. Diffuse Injury 4 (shift): Shift > 5mm. No high or mixed density lesion > 25ml. Evacuated mass lesion: Any surgically evacuated lesion. Non evacuated mass lesion: High or mixed-density lesion > 25ml. Not surgically evacuated. Reading Radiologist: Stephany Granda XR PELVIS AP* See Chart Review for Final Result Impression: 1. Comminuted fracture of the sacrum. 2. Right superior and inferior pubic rami fractures. Reading Radiologist: Rizwan Cunningham XR CHEST 1 VIEW AP OR PA* See Chart Review for Final Result Impression: No acute abnormality. Reading Radiologist: Rizwan Cunningham ED US CRITICAL CARE Prelim Result ED Trauma eFAST Ultrasound Indications: Suspicion of Abdomen Fluid/Blood, Suspicion of Pneumothorax/Hemothorax, and Other general symptoms and signs Window: Cardiac Window, Heptorenal Window, Perisplenic Window, Pelvic Window, and Thoracic Window Findings: No Pericardial Effusion identified, No Free Intraperitoneal Fluid identified, No Pleural Effusion identified, and Lung Sliding Present Bilaterally Impression: No Pericardial Effusion identified, No Free Intraperitoneal Fluid identified, No PleuralEffusion identified, and No Pneumothorax Identified Zo Huynh MD, 06/15/2022 7:31 PM See Chart Review for Final Result XR PELVIS 5V AP/IN/OUTLET/JUDET* (Results Pending) STABILIZATION ROOM EVENTS AND MEDICAL DECISION MAKING Kesha Hill is a 46 y.o. male presenting after a 30 foot fall. DDx includes ICH, TBI, diffuse axonal injury, vertebral fracture, SCI, extremity/ pelvis/ rib/ skullfracture, perforated viscus, solid organ injury, pulmonary contusion, pneumo- or hemothorax, aortic injury, lung or myocardial contusion, other Report taken from EMS. Patient transferred to stab cart. Initial VS stable. Primary survey completed while patient placed on oximetry, cardiac monitoring, and cuff blood pressure monitoring. Trauma paged 2. IV access was obtained. Blood was sent to the lab. FAST U/S without intraperitoneal fluid or pericardial tamponade; b/l sliding signs Secondary survey completed, notable for significant right gluteal pain CXR without any acute pathology. Pelvic x-ray with right acetabular fracture but no open book fracture. Given 100 of fentanyl for pain control. CT oswald scan was obtained, which was notable for significant pelvic fractures including right acetabular, sacral fracture and pubic rami fracture. Patient also has T12 compression fracture. And also possible perirectal hematoma. Patient is otherwise neurologically intact. Neurosurgery and orthopedic surgery are aware. Patient was transferred to the ED team center while in stable condition. In the team center, patientreceived periodic doses of IV pain medication. He underwent a femoral traction. A Rangel was placed for a urinalysis, that passed easily, and urinalysis was sent. At this time, patient was signed out tot team center B DRIVER MANAGER for follow-up on urine. Plan for or in the morning. Final STAB room vitals: BP 125/85 (Cuff Location: Right Arm, Patient Position: Lying Down) Pulse (!) 100 Temp 36.3 ??C (97.3 ??F) (Oral) Resp (!) 22 SpO2 98% PROCEDURES I performed the following procedures: Adult Trauma Resuscitation. Zo Huynh MD, 06/16/2022 12:37 AM Neurosurgery FINAL DIAGNOSES: 1. Fall, initial encounter DISPOSITION: TCC and OR in am Zo Huynh MD, 06/16/2022 12:37 AM Emergency Medicine, PGY3 ED Faculty Note - Kingsotn Castañeda MD - 06/15/2022 7:17 PM CDT ED Faculty Attestation and Critical Care Note Kesha Hill : 1975 Sex: male Patient Arrival Date and Time: 06/15/2022 7:15 PM FACULTY ATTESTATION I Kingston Castañeda MD, I have discussed the case with the Resident. I have personally performed a history, physical exam, and my own medical decision making. I have reviewed the note and agree with thefindings and plan. Upon my evaluation, this patient had a high probability of imminent life or limb-threatening deterioration due to fall 30ft when scaffolding collapsed with severe lower back pain , which required my highest level of preparedness to intervene emergently, and I spent this critical care time directly andpersonally managing the patient. I have personally provided 33 minutes of critical care time exclusive of time spent on separately billable procedures, treating other patients, or teaching time. Time includes obtaining history, reviewing medical records, examining the patient, ordering and review of studies, pulse oximetry, review oflaboratory data, interpretation of radiology studies, frequent reassessment, monitoring for potential decompensation, and discussion with consultants. This critical care time was performed to assess and manage the high probability of imminent deterioration that could result in respiratory failure, cardiac faliure, neurologic disability, shock, multisystem organ failure, and Trauma Team: Tier 2 activation. PROCEDURES Not applicable Date of service for this patient was 06/15/2022 7:15 PM Kesha Hill is a 46 y.o. male with the following vital signs BP 116/80 Pulse 89 Temp 36.3 ??C (97.3 ??F) (Oral) Resp 21 SpO2 95% who presented with lower back and right buttock pain after the 30foot high scaffold he was working on collapsed pt seen as level II trauma neg efast grossly neuro intact cxr nml pelvis xray non displaced right acetabular fx prob other pelvic fxs with bony fragment lateral to the right iliac wing. Pt oswald scanned right acetabular ischial tuberosity and complex right sacral fxs also t12 compression fx pt seen w trauma, orthopedics and nsg adm for further mgmt Kingston Castañeda MD, 06/15/2022 7:43 PM documented in this encounter Plan of Treatment Upcoming Encounters Date Type Specialty Care Team Description 07/22/2022 Appointment RADIOLOGY Roosevelt Brown MD [address] [place] [id number] Scheduled 1, [facility] [address] 07/22/2022 Office Visit ORTHOPEDICS Miri Matthew MD [address] [place] [id number] Scheduled 1, [facility] [address] [place] [address] 07/22/2022 Office Visit Interventional Radiology Provider, Hesham haq Scheduled 1, [facility] [address] [place] [id number] 07/25/2022 Appointment RADIOLOGY Patrice Hollins MD [address] [place] [phone] Scheduled 1, [facility] [address] [place] [id number] 07/25/2022 Office Visit NEUROSURGERY Briana Kaplan PA -C [address] [place] [phone] Scheduled 1, [facility] [address] [place] [id number] 07/25/2022 Appointment PHYSICAL MEDICINE AND REHAB Lore Aguilar, PT Scheduled [address] [place] [id number] (Wo rk) 08/05/2022 Appointment ORTHOPEDICS 1, [facility] Scheduled 1 [place] [address] 08/05/2022 Appointment RADIOLOGY Roosevelt Brown MD [address] [place] [phone] Scheduled 1, [facility] [address] [place] [phone] 08/05/2022 Appointment RADIOLOGY Roosevelt Brown MD [address] [place] [phone] Scheduled 1, [facility] [address] [place] [phone] 08/05/2022 Office Visit ORTHOPEDICS Roosevelt Brown MD [address] [place] [phone] Scheduled 1, [place] [address] Scheduled Orders Name Type Priority Associated Diagnoses Order S chedule XR SPINE THORACOLUMBAR 2 Imaging Routine Other closed fra cture Expected: 08/08/2022 VIEW of twelfth thoracic (Approxi mate), vertebra, initial Expires: 1 10/27/2022 encounter () Closed fracture of transverse process of lumbar vertebra, initial encounter () Scheduled Referrals Name Type Priority Associated Diagnoses Order S chedule REFERRAL TO PHYSICAL Referral Routine Fall, initi al encounter Ordered: 06/26/2022 THERAPY Pelvic ring fracture, closed, initial encounter () Status post open reduction and internal fixation (ORIF) of fracture REFERRAL TO INTERNAL Referral Routine Hyponatremi a Ordered: 06/26/2022 MEDICINE Type 2 diabetes mellitus without complication, without long-term current use of insulin () ANTICOAG REFERRAL - Referral Routine Pelvic ring fracture, Ordered: 06/27/2022 DOAC closed, initial encounter () documented as of this encounter Procedures Procedure Name Priority Date/Time Associated Comments Diagnosis POC GLUCOSE Routine 06/27/2022 4:16 Results for this PM CDT procedure are i n the results section. POC GLUCOSE Routine 06/27/2022 10:56 Results for this AM CDT procedure are i n the results section. POC GLUCOSE Routine 06/27/2022 6:40 Results for this AM CDT procedure are i n the results section. PANEL BASIC METABOLIC Routine 06/27/2022 4:57 Res ults for this (BMP) AM CDT procedure are i n the results section. TC LAB BLOOD DRAW BY Routine 06/27/2022 4:57 Resu lts for this VENIPUNCTURE AM CDT procedure are i n the results section. POC GLUCOSE Routine 06/26/2022 8:50 Results for this PM CDT procedure are i n the results section. POC GLUCOSE Routine 06/26/2022 4:01 Results for this PM CDT procedure are i n the results section. POC GLUCOSE Routine 06/26/2022 11:17 Results for this AM CDT procedure are i n the results section. POC GLUCOSE Routine 06/26/2022 7:01 Results for this AM CDT procedure are i n the results section. PANEL RENAL Routine 06/26/2022 6:41 Results for this AM CDT procedure are i n the results section. PANEL LIPID Routine 06/26/2022 6:41 Results for this AM CDT procedure are i n the results section. TC LAB BLOOD DRAW BY Routine 06/26/2022 6:41 Resu lts for this VENIPUNCTURE AM CDT procedure are i n the results section. POC GLUCOSE Routine 06/25/2022 8:45 Results for this PM CDT procedure are i n the results section. PC OSMOLALITY; URINE Routine 06/25/2022 5:08 Resu lts for this PM CDT procedure are i n the results section. PC SODIUM; URINE Routine 06/25/2022 5:08 Results for this PM CDT procedure are i n the results section. POC GLUCOSE Routine 06/25/2022 4:09 Results for this PM CDT procedure are i n the results section. CT PELVIS NO IV CON+ Routine 06/25/2022 4:01 Resu lts for this 3D RECON PM CDT procedure are i n the results section. POC GLUCOSE Routine 06/25/2022 11:26 Results for this AM CDT procedure are i n the results section. POC GLUCOSE Routine 06/25/2022 5:59 Results for this AM CDT procedure are i n the results section. PANEL RENAL Routine 06/25/2022 5:51 Results for this AM CDT procedure are i n the results section. OSMOLALITY SERUM Routine 06/25/2022 5:51 Results for this AM CDT procedure are i n the results section. TC LAB BLOOD DRAW BY Routine 06/25/2022 5:51 Resu lts for this VENIPUNCTURE AM CDT procedure are i n the results section. POC GLUCOSE Routine 06/24/2022 9:13 Results for this PM CDT procedure are i n the results section. POC GLUCOSE Routine 06/24/2022 6:41 Results for this PM CDT procedure are i n the results section. POC GLUCOSE Routine 06/24/2022 4:39 Results for this PM CDT procedure are i n the results section. XR PELVIS 3 V AP Routine 06/24/2022 3:25 Results for this &INLET/OUTLET PM CDT procedure are in the results section. XR C ARM OVER 3 HRS Routine 06/24/2022 3:25 PM CDT XR PELVIS AP* Timed 06/24/2022 1:51 Results for this PM CDT procedure are i n the results section. POC GLUCOSE Routine 06/24/2022 1:10 Results for this PM CDT procedure are i n the results section. ORIF, PELVIS Urgent (< 48 06/24/2022 12:24 Pelvic ring hrs) PM CDT fracture, closed, initial encounter () POC GLUCOSE Routine 06/24/2022 10:53 Results for this AM CDT procedure are i n the results section. RED BLOOD CELLS Routine 06/24/2022 8:39 Results f or this LEUKOCYTE REDUCED AM CDT procedure are in ADULT (BLOOD ADMIN) the resu lts section. PC HEPARIN ASSAY Timed 06/24/2022 7:04 Results for this AM CDT procedure are i n the results section. POC GLUCOSE Routine 06/24/2022 6:42 Results for this AM CDT procedure are i n the results section. PANEL RENAL Routine 06/24/2022 5:43 Results for this AM CDT procedure are i n the results section. MAGNESIUM Routine 06/24/2022 5:43 Results for this AM CDT procedure are i n the results section. PC LAB CBC/PLT Routine 06/24/2022 5:43 Results fo r this AM CDT procedure are i n the results section. TC LAB BLOOD DRAW BY Timed 06/23/2022 10:42 Res ults for this VENIPUNCTURE PM CDT procedure are i n the results section. POC GLUCOSE Routine 06/23/2022 8:46 Results for this PM CDT procedure are i n the results section. POC GLUCOSE Routine 06/23/2022 3:57 Results for this PM CDT procedure are i n the results section. PC HEPARIN ASSAY STAT 06/23/2022 3:40 Results for this PM CDT procedure are i n the results section. POC GLUCOSE Routine 06/23/2022 11:08 Results for this AM CDT procedure are i n the results section. PC HEPARIN ASSAY Timed 06/23/2022 6:25 Results for this AM CDT procedure are i n the results section. POC GLUCOSE Routine 06/23/2022 6:10 Results for this AM CDT procedure are i n the results section. POC GLUCOSE Routine 06/22/2022 9:19 Results for this PM CDT procedure are i n the results section. POC GLUCOSE Routine 06/22/2022 4:03 Results for this PM CDT procedure are i n the results section. POC GLUCOSE Routine 06/22/2022 11:07 Results for this AM CDT procedure are i n the results section. PROTHROMBIN (PT) & Routine 06/22/2022 10:53 Resul ts for this INR AM CDT procedure are i n the results section. PC ANTIBODY Routine 06/22/2022 10:53 Results for this SCREEN,RBC,EACH SERUM AM CDT proced ure are in TECHNIQUE the results section. PC LAB RH TYPE GEL Routine 06/22/2022 10:53 Resul ts for this AM CDT procedure are i n the results section. COVID-19 SURVEILLANCE Routine 06/22/2022 7:10 Res ults for this AM CDT procedure are i n the results section. POC GLUCOSE Routine 06/22/2022 6:11 Results for this AM CDT procedure are i n the results section. PC LAB CBC/PLT Routine 06/22/2022 5:25 Results fo r this AM CDT procedure are i n the results section. PC HEPARIN ASSAY Timed 06/22/2022 5:25 Results for this AM CDT procedure are i n the results section. ANTI XA ASSAY LMW Timed 06/22/2022 5:25 Results for this HEPARIN AM CDT procedure are i n the results section. POC GLUCOSE Routine 06/21/2022 9:06 Results for this PM CDT procedure are i n the results section. POC GLUCOSE Routine 06/21/2022 4:13 Results for this PM CDT procedure are i n the results section. POC GLUCOSE Routine 06/21/2022 11:53 Results for this AM CDT procedure are i n the results section. PC HEPARIN ASSAY Timed 06/21/2022 6:19 Results for this AM CDT procedure are i n the results section. POC GLUCOSE Routine 06/21/2022 6:17 Results for this AM CDT procedure are i n the results section. POC GLUCOSE Routine 06/20/2022 8:51 Results for this PM CDT procedure are i n the results section. POC GLUCOSE Routine 06/20/2022 4:10 Results for this PM CDT procedure are i n the results section. XR ANKLE RIGHT 3 V Routine 06/20/2022 1:41 Result s for this AP/OBL/LAT* PM CDT procedure are i n the results section. PC HEPARIN ASSAY Timed 06/20/2022 12:14 Results for this PM CDT procedure are i n the results section. POC GLUCOSE Routine 06/20/2022 12:06 Results for this PM CDT procedure are i n the results section. POC GLUCOSE Routine 06/20/2022 6:19 Results for this AM CDT procedure are i n the results section. PANEL BASIC METABOLIC Routine 06/20/2022 5:57 Res ults for this (BMP) AM CDT procedure are i n the results section. PC LAB CBC/PLT Routine 06/20/2022 5:57 Results fo r this AM CDT procedure are i n the results section. PC HEPARIN ASSAY Timed 06/20/2022 5:57 Results for this AM CDT procedure are i n the results section. EXTRA TUBE - SST Routine 06/20/2022 1:05 Results for this AM CDT procedure are i n the results section. TC LAB BLOOD DRAW BY Timed 06/20/2022 12:19 Res ults for this VENIPUNCTURE AM CDT procedure are i n the results section. POC GLUCOSE Routine 06/19/2022 8:57 Results for this PM CDT procedure are i n the results section. XR FOOT RIGHT 3 V Routine 06/19/2022 7:45 Results for this AP/OBL/LAT* PM CDT procedure are i n the results section. XR SPINE Routine 06/19/2022 5:58 Results for this THORACOLUMBAR UPRIGHT PM CDT proced ure are in the results section. XR PELVIS 3 V AP Routine 06/19/2022 5:58 Results for this &INLET/OUTLET PM CDT procedure are in the results section. TC LAB BLOOD DRAW BY Timed 06/19/2022 5:27 Resu lts for this VENIPUNCTURE PM CDT procedure are i n the results section. POC GLUCOSE Routine 06/19/2022 4:01 Results for this PM CDT procedure are i n the results section. PC HEPARIN ASSAY Timed 06/19/2022 12:51 Results for this PM CDT procedure are i n the results section. CT PELVIS 3D Routine 06/19/2022 11:49 Results for this RECONSTRUCTION AM CDT procedure are in the results section. POC GLUCOSE Routine 06/19/2022 11:19 Results for this AM CDT procedure are i n the results section. CT UROGRAM Routine 06/19/2022 11:05 Results for this AM CDT procedure are i n the results section. POC GLUCOSE Routine 06/19/2022 6:03 Results for this AM CDT procedure are i n the results section. PANEL BASIC METABOLIC Routine 06/19/2022 5:15 Res ults for this (BMP) AM CDT procedure are i n the results section. PC LAB CBC/PLT Routine 06/19/2022 5:15 Results fo r this AM CDT procedure are i n the results section. PC HEPARIN ASSAY Timed 06/19/2022 5:15 Results for this AM CDT procedure are i n the results section. PC HEPARIN ASSAY STAT 06/18/2022 11:59 Results for this PM CDT procedure are i n the results section. POC GLUCOSE Routine 06/18/2022 9:13 Results for this PM CDT procedure are i n the results section. POC GLUCOSE Routine 06/18/2022 7:03 Results for this PM CDT procedure are i n the results section. XR PELVIS 3 V AP Routine 06/18/2022 6:15 Results for this &INLET/OUTLET PM CDT procedure are in the results section. XR C ARM OVER 3 HRS Routine 06/18/2022 6:15 PM CDT XR O ARM 0-1 HR Routine 06/18/2022 5:50 PM CDT XR PELVIS AP* Routine 06/18/2022 5:50 Results for this PM CDT procedure are i n the results section. POC GLUCOSE Routine 06/18/2022 4:15 Results for this PM CDT procedure are i n the results section. ORIF, PELVIS Semi-Urgent (< 06/18/2022 4:01 Pelvic ring 2 wks) PM CDT fracture, closed, initial encounter () IMMEDIATE POST Routine 06/18/2022 12:23 Results f or this PROCEDURE SEDATION PM CDT procedure are in the results section. IR IVC FILTER Routine 06/18/2022 12:09 Results fo r this PLACEMENT PM CDT procedure are i n the results section. POC GLUCOSE Routine 06/18/2022 11:21 Results for this AM CDT procedure are i n the results section. PC HEPARIN ASSAY Timed 06/18/2022 10:27 Results for this AM CDT procedure are i n the results section. XR URETHROGRAM Routine 06/18/2022 9:14 Results fo r this RETROGRADE AM CDT procedure are i n the results section. POC GLUCOSE Routine 06/18/2022 6:26 Results for this AM CDT procedure are i n the results section. PANEL BASIC METABOLIC Routine 06/18/2022 4:50 Res ults for this (BMP) AM CDT procedure are i n the results section. PC LAB CBC/PLT Routine 06/18/2022 4:50 Results fo r this AM CDT procedure are i n the results section. TC LAB BLOOD DRAW BY Timed 06/18/2022 4:50 Resu lts for this VENIPUNCTURE AM CDT procedure are i n the results section. PC HEPARIN ASSAY Timed 06/17/2022 10:34 Results for this PM CDT procedure are i n the results section. POC GLUCOSE Routine 06/17/2022 8:43 Results for this PM CDT procedure are i n the results section. POC GLUCOSE Routine 06/17/2022 3:57 Results for this PM CDT procedure are i n the results section. ULT VENOUS LOWER EXT Routine 06/17/2022 3:35 Resu lts for this BILAT PM CDT procedure are i n the results section. POC GLUCOSE Routine 06/17/2022 11:54 Results for this AM CDT procedure are i n the results section. PC ANTIBODY Routine 06/17/2022 11:46 Results for this SCREEN,RBC,EACH SERUM AM CDT proced ure are in TECHNIQUE the results section. PC LAB RH TYPE GEL Routine 06/17/2022 11:46 Resul ts for this AM CDT procedure are i n the results section. POC GLUCOSE Routine 06/17/2022 6:53 Results for this AM CDT procedure are i n the results section. POC GLUCOSE Routine 06/17/2022 6:51 Results for this AM CDT procedure are i n the results section. PANEL BASIC METABOLIC Routine 06/17/2022 5:07 Res ults for this (BMP) AM CDT procedure are i n the results section. TC LAB BLOOD DRAW BY Routine 06/17/2022 5:07 Resu lts for this VENIPUNCTURE AM CDT procedure are i n the results section. POC GLUCOSE Routine 06/16/2022 9:14 Results for this PM CDT procedure are i n the results section. XR WRIST RIGHT 3+ Routine 06/16/2022 6:58 Results for this PA/OB/LAT/JENS* PM CDT procedure are in the results section. POC GLUCOSE Routine 06/16/2022 6:05 Results for this PM CDT procedure are i n the results section. POC GLUCOSE Routine 06/16/2022 12:47 Results for this PM CDT procedure are i n the results section. XR PELVIS 5V Routine 06/16/2022 12:19 Results for this AP/IN/OUTLET/JUDET* PM CDT procedur e are in the results section. XR CYSTOGRAM Routine 06/16/2022 11:56 Results for this AM CDT procedure are i n the results section. PC LACTATE (LACTIC Timed 06/16/2022 2:20 Result s for this ACID) AM CDT procedure are i n the results section. PC LAB COMPLETE UA STAT 06/16/2022 12:20 Resul ts for this AM CDT procedure are i n the results section. XR PELVIS AP* STAT 06/15/2022 11:21 Results fo r this PM CDT procedure are i n the results section. XR KNEE RIGHT 2 V Routine 06/15/2022 11:20 Result s for this AP/LAT PM CDT procedure are i n the results section. XR TIB FIB RIGHT 2 V Routine 06/15/2022 10:05 Res ults for this AP + LAT* PM CDT procedure are i n the results section. XR TIB FIB LEFT 2 V Routine 06/15/2022 10:05 Resu lts for this AP + LAT* PM CDT procedure are i n the results section. XR FEMUR RIGHT AP + Routine 06/15/2022 10:05 Resu lts for this LAT* PM CDT procedure are i n the results section. XR FEMUR LEFT AP + Routine 06/15/2022 10:05 Resul ts for this LAT* PM CDT procedure are i n the results section. CT SPINE THORACIC NO STAT 06/15/2022 7:54 Resu lts for this IV CON PM CDT procedure are i n the results section. CT SPINE LUMBAR NO IV STAT 06/15/2022 7:54 Res ults for this CON PM CDT procedure are i n the results section. CT CHEST/ABD/PELVIS STAT 06/15/2022 7:54 Resul ts for this W/IV CONT PM CDT procedure are i n the results section. CT SPINE CERVICAL NO STAT 06/15/2022 7:52 Resu lts for this IV CON PM CDT procedure are i n the results section. CT HEAD NO IV STAT 06/15/2022 7:52 Results for this CONTRAST PM CDT procedure are i n the results section. XR PELVIS AP* STAT 06/15/2022 7:34 Results for this PM CDT procedure are i n the results section. XR CHEST 1 VIEW AP OR STAT 06/15/2022 7:33 Res ults for this PA* PM CDT procedure are i n the results section. COVID-19 SURVEILLANCE STAT 06/15/2022 7:20 Res ults for this PM CDT procedure are i n the results section. EXTRA TUBE - CASTAÑED[place] Routine 06/15/2022 7:20 Results for this PM CDT procedure are i n the results section. TC LAB BLOOD DRAW BY Routine 06/15/2022 7:20 Resu lts for this VENIPUNCTURE PM CDT procedure are i n the results section. PC TROPONIN STAT 06/15/2022 7:20 Results for this QUANTITATIVE PM CDT procedure are i n the results section. PC ELECTROLYTES PANEL STAT 06/15/2022 7:20 Res ults for this PM CDT procedure are i n the results section. PC LAB CBC W/DIFF & STAT 06/15/2022 7:20 Resul ts for this PLT PM CDT procedure are i n the results section. TC LAB ER STAT TOTAL STAT 06/15/2022 7:20 Resu lts for this HGB PM CDT procedure are i n the results section. PROTHROMBIN (PT) & STAT 06/15/2022 7:20 Result s for this INR PM CDT procedure are i n the results section. PRECAUTIONARY TUBE STAT 06/15/2022 7:20 Result s for this PM CDT procedure are i n the results section. PC LACTATE (LACTIC STAT 06/15/2022 7:20 Result s for this ACID) PM CDT procedure are i n the results section. PC GASES,BLOOD,ANY STAT 06/15/2022 7:20 Result s for this COMB OF PM CDT procedure are i n PH,PCD2,PO2,CO2,HCO2 the res ults section. FIBRINOGEN STAT 06/15/2022 7:20 Results for this PM CDT procedure are i n the results section. PC LAB PTT STAT 06/15/2022 7:20 Results for this PM CDT procedure are i n the results section. ED US CRITICAL CARE STAT 06/15/2022 7:16 Resul ts for this PM CDT procedure are i n the results section. documented in this encounter Results XR WRIST [...] fracture. Reading Radiologist: Ronal Rouse Ellen Mays PAIsmael X-RAY POC GLUCOSE (06/27/2022 4:16 PM CDT) P athologist Signature POC Glucose 93 70 - 100 [facility] mg/dL C[facility] - POINT OF CARE Specimen (Source) Anatomical Collection Method Collection Time Re ceived Time Location / / Volume Laterality Blood 06/27/2022 4:16 PM CDT Kingston Castañeda MD LABORATORY Performing Organization Address City/State/ZIP Code Phon e Number [facility] - POINT OF CARE [address] [place] [address] (ABNORMAL) POC GLUCOSE (06/27/2022 10:56 AM CDT) athologist Signature POC Glucose 169 (H) 70 - 100 [facility] mg/dL CAMPUS - POINT OF CARE Specimen (Source) Anatomical Collection Method Collection Time Re ceived Time Location / / Volume Laterality Blood 06/27/2022 10:56 AM CDT Kingston Castañeda MD LABORATORY Performing Organization Address [facility] Phon e Number [facility] - POINT OF CARE [address] [place] [address] (ABNORMAL) POC GLUCOSE (06/27/2022 6:40 AM CDT) athologist Signature POC Glucose 172 (H) 70 - 100 [facility] mg/dL [place] - POINT OF CARE Specimen (Source) Anatomical Collection Method Collection Time Re ceived Time Location / / Volume Laterality Blood 06/27/2022 6:40 AM CDT Kingston Castañeda MD LABORATORY Performing Organization Address [facility] Phon e Number [facility] - POINT OF CARE [address] [place] [address] (ABNORMAL) CBC WITH PLATELET (06/27/2022 4:57 AM CDT) athologist Signature WBC 13.15 (H) 4.00 - [facility] 10.00 k/cmm RBC 3.11 (L) 4.60 - 6.00 [facility] m/cmm Hgb 8.7 (L) 13.1 - 17.5 [facility] g/dL Hematocrit 26.4 (L) 40.0 - 51.0 [facility] % MCV 84.9 80.0 - [facility] 100.0 fL MCH 28.0 25.0 - 32.0 [facility] pg MCHC 33.0 31.0 - 36.0 [facility] g/dL RDW 13.5 11.5 - 14.5 [facility] % Plt 497 (H) 150 - 400 [facility] k/cmm MPV 9.5 6.5 - 12.5 [facility] fL Specimen Anatomical Collection Method Collection Time Receive d Time (Source) Location / / Volume Laterality Blood 06/27/2022 4:57 AM 2 5:23 CDT AM CDT Patrice Hollins MD LABORATORY Performing Organization Address City/State/ZIP Code Phon e Number [facility] [place] [address] (ABNORMAL) PANEL BASIC METABOLIC (BMP) (06/27/2022 4:57 AM CDT) athologist Signature Sodium 134 (L) 135 - 148 [facility] mEq/L Potassium 4.2 3.5 - 5.3 [facility] mEq/L Chloride 98 92 - 108 [facility] mEq/L CO2 25 22 - 30 [facility] mEq/L AnGap 11 8 - 16 [facility] mEq/L Glucose 156 (H) 70 - 100 [facility] mg/dL BUN 15 6 - 20 [facility] mg/dL Creatinine 0.59 (L) 0.70 - 1.25 [facility] mg/dL Calcium 9.2 8.6 - 10.0 [facility] mg/dL eGFR, High >120 >=60 [facility] ml/min/1.73 m2 Comment: Calculated using CKD-EPI equati on eGFR, Low >120 >=60 ml/min/1.73m2 [facility] Comment: Calculated using CKD-EPI equati on Specimen Anatomical Collection Method Collection Time Receive d Time (Source) Location / / Volume Laterality Blood 06/27/2022 4:57 AM 2 5:23 CDT AM CDT Patrice Hollins MD LABORATORY Performing Organization Address City/[facility]/ZIP Code Phon e Number [facility] [place] [address] (ABNORMAL) POC GLUCOSE (06/26/2022 8:50 PM CDT) athologist Signature POC Glucose 230 (H) 70 - 100 [facility] mg/dL CAMPUS - POINT OF CARE Specimen (Source) Anatomical Collection Method Collection Time Re ceived Time Location / / Volume Laterality Blood 06/26/2022 8:50 PM CDT Kingston Castañeda MD LABORATORY Performing Organization Address City/State/ZIP Code Phon e Number [facility] - POINT OF CARE [address] [place] [phone] (ABNORMAL) POC GLUCOSE (06/26/2022 4:01 PM CDT) athologist Signature POC Glucose 220 (H) 70 - 100 [facility] mg/dL CAMPUS - POINT OF CARE Specimen (Source) Anatomical Collection Method Collection Time Re ceived Time Location / / Volume Laterality Blood 06/26/2022 4:01 PM CDT Kingston Castañeda MD LABORATORY Performing Organization Address City/[facility] Phon e Number [facility] - POINT OF CARE [address] [place] [address] (ABNORMAL) POC GLUCOSE (06/26/2022 11:17 AM CDT) athologist Signature POC Glucose 211 (H) 70 - 100 [facility] mg/dL CAMPUS - POINT OF CARE Specimen (Source) Anatomical Collection Method Collection Time Re ceived Time Location / / Volume Laterality Blood 06/26/2022 11:17 AM CDT Kingston Castañeda MD LABORATORY Performing Organization Address City/[facility] Phon e Number [facility] - POINT OF CARE [address] [place] [address] (ABNORMAL) POC GLUCOSE (06/26/2022 7:01 AM CDT) athologist Signature POC Glucose 150 (H) 70 - 100 [facility] mg/dL CAMPUS - POINT OF CARE Specimen (Source) Anatomical Collection Method Collection Time Re ceived Time Location / / Volume Laterality Blood 06/26/2022 7:01 AM CDT Kingston Castañeda MD LABORATORY Performing Organization Address City/[facility] Phon e Number [facility] - POINT OF CARE [address] [place] [address] (ABNORMAL) PANEL LIPID (06/26/2022 6:41 AM CDT) athologist Signature Cholesterol 128 <=200 mg/dL [facility] Comment: Interpretive Data <200 Desirable 200-239 Borderline high >=240 High Triglyceride 178 (H) <=150 mg/dL [facility] Comment: Interpretive Data <150 Normal 150-199 Borderline high 200-499 High >=500 Very high HDL 31 (L) >=40 mg/dL [facility] Comment: Interpretive Data Normal > 40 Male > 50 Female Calc LDL 61 <=100 mg/dL [facility] Comment: Interpretive Data <100 Desirable 100-129 Above desirable 130-159 Borderline high 160-189 High >=190 Very high Non-HDL Cholesterol Calculated 97 <=130 mg/dL [facility] Comment: Interpretive Data <130 Desirable 130-159 Above desirable 160-189 Borderline high 190-219 High >=220 Very high Specimen Anatomical Collection Method Collection Time Receive d Time (Source) Location / / Volume Laterality Blood 06/26/2022 6:41 AM 2 CDT 12:54 PM CDT Narrative [facility] - 06/26/2022 1:12 PM CDT Fasting: No Patrice Hollins MD LABORATORY Performing Organization Address City/[facility]/ZIP Code Phon e Number [facility] [place] [address] (ABNORMAL) PANEL RENAL (06/26/2022 6:41 AM CDT) athologist Signature Sodium 131 (L) 135 - 148 [facility] mEq/L Potassium 4.1 3.5 - 5.3 [facility] mEq/L Chloride 93 92 - 108 [facility] mEq/L CO2 27 22 - 30 [facility] mEq/L AnGap 11 8 - 16 [facility] mEq/L Glucose 151 (H) 70 - 100 [facility] mg/dL BUN 15 6 - 20 [facility] mg/dL Creatinine 0.69 (L) 0.70 - 1.25 [facility] mg/dL Calcium 8.9 8.6 - 10.0 [facility] mg/dL Albumin 3.5 (L) 3.8 - 5.1 [facility] g/dL Phosphorus 4.3 2.5 - 4.5 [facility] mg/dL eGFR, High >120 >=60 [facility] ml/min/1.73 m2 Comment: Calculated using CKD-EPI equati on eGFR, Low 115 >=60 ml/min/1.73m2 [facility] Comment: Calculated using CKD-EPI equati on Specimen Anatomical Collection Method Collection Time Receive d Time (Source) Location / / Volume Laterality Blood 06/26/2022 6:41 AM 2 7:47 CDT AM CDT Patrice Hollins MD LABORATORY Performing Organization Address City/State/ZIP Code Phon e Number [facility] [place] [address] (ABNORMAL) CBC WITH PLATELET (06/26/2022 6:41 AM CDT) athologist [facility] WBC 12.28 (H) 4.00 - [facility] 10.00 k/cmm RBC 3.46 (L) 4.60 - 6.00 [facility] m/cmm Hgb 9.7 (L) 13.1 - 17.5 [facility] g/dL Hematocrit 29.3 (L) 40.0 - 51.0 [facility] % MCV 84.7 80.0 - [facility] 100.0 fL MCH 28.0 25.0 - 32.0 [facility] pg MCHC 33.1 31.0 - 36.0 [facility] g/dL RDW 13.3 11.5 - 14.5 [facility] % Plt 516 (H) 150 - 400 [facility] k/cmm MPV 10.9 6.5 - 12.5 [facility] fL Specimen Anatomical Collection Method Collection Time Receive d Time (Source) Location / / Volume Laterality Blood 06/26/2022 6:41 AM 7:47 CDT AM CDT Patrice Hollins MD LABORATORY Performing Organization Address City/[facility]/ZIP Code Phon e Number [facility] [place] [address] (ABNORMAL) POC GLUCOSE (06/25/2022 8:45 PM CDT) athologist [facility] POC Glucose 159 (H) 70 - 100 [facility] mg/dL CAMPUS - POINT OF CARE Specimen (Source) Anatomical Collection Method Collection Time Re ceived Time Location / / Volume Laterality Blood 06/25/2022 8:45 PM CDT Kingston Castañeda MD LABORATORY Performing Organization Address City/[facility]/ZIP Code Phon e Number [facility] - POINT OF CARE [address] [place] [phone] OSMOLALITY,URINE-RANDOM ASIA (06/25/2022 5:08 PM CDT) athologist [facility] Urine Osmo [phone] [facility] mOsm/Kg Specimen Anatomical Collection Method Collection Time Receive d Time (Source) Location / / Volume Laterality Urine 06/25/2022 5:08 PM 2 5:39 CDT PM CDT Patrice Hollins MD LABORATORY Performing Organization Address City/[facility]/ZIP Code Phon e Number [facility] [place] [address] (ABNORMAL) SODIUM,URINE-RANDOM ASIA (06/25/2022 5:08 PM CDT) athologist Signature Sodium Urine 30 (L) 40 - 200 [facility] mEq/L Specimen Anatomical Collection Method Collection Time Receive d Time (Source) Location / / Volume Laterality Urine 06/25/2022 5:08 PM 2 5:39 CDT PM CDT Patrice Hollins MD LABORATORY Performing Organization Address [facility] Phon e Number [facility] [place] [address] (ABNORMAL) POC GLUCOSE (06/25/2022 4:09 PM CDT) athologist Signature POC Glucose 150 (H) 70 - 100 [facility] mg/dL CAMPUS - POINT OF CARE Specimen (Source) Anatomical Collection Method Collection Time Re ceived Time Location / / Volume Laterality Blood 06/25/2022 4:09 PM CDT Kingston Castañeda MD LABORATORY Performing Organization Address [facility]/ZIP Code Phon e Number [facility] [place] - POINT OF CARE [address] [place] [phone] PELVIS NO IV CON+ 3D RECON [...] 55 of series 205. Procedure Note Danny Dodson, DO - 06/25/2022Form atting of this note [...] Danny Dodson Miri Matthew MD CT BODY (ABNORMAL) POC GLUCOSE (06/25/2022 11:26 AM CDT) athologist Signature POC Glucose 188 (H) 70 - 100 [facility] mg/dL CAMPUS - POINT OF CARE Specimen (Source) Anatomical Collection Method Collection Time Re ceived Time Location / / Volume Laterality Blood 06/25/2022 11:26 AM CDT Kingston Castañeda MD LABORATORY Performing Organization Address City/State/ZIP Code Phon e Number [facility] POINT OF CARE [address] [place] [address] (ABNORMAL) POC GLUCOSE (06/25/2022 5:59 AM CDT) athologist Signature POC Glucose 126 (H) 70 - 100 [facility] mg/dL CAMPUS - POINT OF CARE Specimen (Source) Anatomical Collection Method Collection Time Re ceived Time Location / / Volume Laterality Blood 06/25/2022 5:59 AM CDT Kingston Castañeda MD LABORATORY Performing Organization Address City/State/ZIP Code Phon e Number [facility] POINT OF CARE [address] [place] [address] OSMOLALITY SERUM (06/25/2022 5:51 AM CDT) athologist Signature Serum Osmo [phone] [facility] mOsm/Kg Specimen Anatomical Collection Method Collection Time Receive d Time (Source) Location / / Volume Laterality Blood 06/25/2022 5:51 AM 2 4:44 CDT PM CDT Patrice Hollins MD LABORATORY Performing Organization Address City/[facility] Phon e Number [facility] [place] [address] (ABNORMAL) PANEL RENAL (06/25/2022 5:51 AM CDT) athologist Signature CO2 28 22 - 30 [facility] mEq/L Glucose 144 (H) 70 - 100 [facility] mg/dL BUN 19 6 - 20 [facility] mg/dL Creatinine 0.78 0.70 - 1.25 [facility] mg/dL Calcium 9.1 8.6 - 10.0 [facility] mg/dL Albumin 3.4 (L) 3.8 - 5.1 [facility] g/dL Phosphorus 4.1 2.5 - 4.5 [facility] mg/dL eGFR, High >120 >=60 [facility] ml/min/1.73 m2 Comment: Calculated using CKD-EPI equati on Sodium 131 (L) 135 - 148 mEq/L [facility] Potassium 4.5 3.5 - 5.3 mEq/L [facility] Chloride 94 92 - 108 mEq/L [facility] eGFR, Low 109 >=60 ml/min/1.73m2 [facility] Comment: Calculated using CKD-EPI equati on AnGap 9 8 - 16 mEq/L [facility] Specimen Anatomical Collection Method Collection Time Receive d Time (Source) Location / / Volume Laterality Blood 06/25/2022 5:51 AM 2 6:23 CDT AM CDT Patrice Hollins MD LABORATORY Performing Organization Address City/State/ZIP Code Phon e Number [facility] [place] [address] (ABNORMAL) CBC WITH PLATELET (06/25/2022 5:51 AM CDT) athologist Signature WBC 12.52 (H) 4.00 - [facility] 10.00 k/cmm RBC 3.62 (L) 4.60 - 6.00 [facility] m/cmm Hgb 10.2 (L) 13.1 - 17.5 [facility] g/dL Hematocrit 30.6 (L) 40.0 - 51.0 [facility] % MCV 84.5 80.0 - [facility] 100.0 fL MCH 28.2 25.0 - 32.0 [facility] pg MCHC 33.3 31.0 - 36.0 [facility] g/dL RDW 13.3 11.5 - 14.5 [facility] % Plt 522 (H) 150 - 400 [facility] k/cmm MPV 9.7 6.5 - 12.5 [facility] fL Specimen Anatomical Collection Method Collection Time Receive d Time (Source) Location / / Volume Laterality Blood 06/25/2022 5:51 AM 6:23 CDT AM CDT Patrice Hollins MD LABORATORY Performing Organization Address City/[facility]/ZIP Code Phon e Number [facility] [place] [address] (ABNORMAL) POC GLUCOSE (06/24/2022 9:13 PM CDT) athologist Signature POC Glucose 211 (H) 70 - 100 [facility] mg/dL CAMPUS - POINT OF CARE Specimen (Source) Anatomical Collection Method Collection Time Re ceived Time Location / / Volume Laterality Blood 06/24/2022 9:13 PM CDT Kingston Castañeda MD LABORATORY Performing Organization Address City/State/ZIP Code Phon e Number [facility] POINT [facility] CARE [address] [place] [phone] (ABNORMAL) POC GLUCOSE (06/24/2022 6:41 PM CDT) athologist Signature POC Glucose 248 (H) 70 - 100 [facility] mg/dL CAMPUS - POINT OF CARE Specimen (Source) Anatomical Collection Method Collection Time Re ceived Time Location / / Volume Laterality Blood 06/24/2022 6:41 PM CDT Kingston Castañeda MD LABORATORY Performing Organization Address City/[facility] Code Phon e Number [facility] - POINT OF CARE [address] [place] [address] (ABNORMAL) POC GLUCOSE (06/24/2022 4:39 PM CDT) P athologist Signature POC Glucose 214 (H) 70 - 100 [facility] mg/dL [place] - POINT OF CARE Specimen (Source) Anatomical Collection Method Collection Time Re ceived Time Location / / Volume Laterality Blood 06/24/2022 4:39 PM CDT Kingston Castañeda MD LABORATORY Performing Organization Address [facility] Code Phon e Number [facility] - POINT OF CARE [address] [place] [address] XR C ARM OVER 3 HRS (06/24/2022 3:25 PM CDT) Specimen (Source) Anatomical Location Collection Method / Collectio n Time Received Time / Laterality Volume Roosevelt Brown MD FLUORO XR PELVIS 3 V AP + INLET/OUTLET (06/24/2022 3:25 PM CDT) Anatomical Region Laterality Modality Pelvis Radio Fluoroscopy Specimen (Source) Anatomical Collection Method Collection Time Re ceived Time Location / / Volume Laterality 06/25/2022 10:25 AM CDT Impressions 06/25/2022 2:23 PM CDT Impression: Spot films and fluoroscopy time provided to the OR. I have personally reviewed the image(s) and initial interpretation, and I agree with the findings as documented by the resident/fellow. Reading Radiologist: Rizwan Cunningham Reading Resident: Beto Irene 06/25/2022 2:23 PM CDT Indication:ORIF pelvis. Comparison:AP pelvis dated 06/24/2022. Fluoroscopy time:0.7 minutes. Dose:13.6 mGy Findings: Fluoroscopy time and spot-film imaging was provided to the OR. Spot images show interval placement of a second sacroiliac screw. Alignment is stable. No radiologist was present. Procedure Note Rizwan Cunningham MBBS - 06/25/2022Form atting of this note might be different from the original. Indication:ORIF pelvis. Comparison:AP pelvis dated 06/24/2022. Fluoroscopy time:0.7 minutes. Dose:13.6 mGy Findings: Fluoroscopy time and spot-film imaging was provided to the OR. Spot images show interval placement of a second sacroiliac screw. Alignment is stable. No radiologist was present. IMPRESSION Impression: Spot films and fluoroscopy t charleen provided to the OR. I have personally reviewed the image(s) and initial interpretation, and I agree with the findings as documented by the resident/fellow. Reading Radiologist: Rizwan Cunningham Reading Resident: Beto Irene Roosevelt Brown MD X-RAY XR PELVIS AP* (06/24/2022 1:51 PM CDT) Anatomical Region Laterality Modality Pelvis Computed Radiography Specimen (Source) Anatomical Collection Method Collection Time Re ceived Time Location / / Volume Laterality 06/24/2022 2:01 PM CDT Impressions 06/24/2022 2:02 PM CDT Impression: Stable alignment since prior exam. Reading Radiologist: Sam Delgado Narrative 06/24/2022 2:02 PM CDT Indication: intraoperative flat plates in OR1, will call XR when ready ?? Comparison: 06/19/2022 Findings: A screw projects through both sacroiliac joints from right to left. Healing posterior right acetabular chip fracture. Healing fractures of the right superior and inferior pubic rami. Procedure Note Sam Delgado MD - 06/24/2022Format ting of this note might be different from the original. Indication: intraoperative flat plates i n OR1, will call XR when ready Comparison: 06/19/2022 Findings: A screw projects through both sacroiliac joints from right to left. Healing posterior right acetabular chip fracture. Healing fractures of the right superior and inferior pubic rami. IMPRESSION Impression: Stable alignment since prior exam. Reading Radiologist: Sam Delgado Miri Matthew MD X-RAY (ABNORMAL) POC GLUCOSE (06/24/2022 1:10 PM CDT) P athologist Signature POC Glucose 141 (H) 70 - 100 [facility] mg/dL CAMPUS - POINT OF CARE Specimen (Source) Anatomical Collection Method Collection Time Re ceived Time Location / / Volume Laterality Blood 06/24/2022 1:10 PM CDT Kingston Castañeda MD LABORATORY Performing Organization Address City/[facility]/ZIP Code Phon e Number [facility] - POINT OF CARE [address] [place] [phone] (ABNORMAL) POC GLUCOSE (06/24/2022 10:53 AM CDT) athologist Signature POC Glucose 146 (H) 70 - 100 [facility] mg/dL CAMPUS - POINT OF CARE Specimen (Source) Anatomical Collection Method Collection Time Re ceived Time Location / / Volume Laterality Blood 06/24/2022 10:53 AM CDT Kingston Castañeda MD LABORATORY Performing Organization Address [facility] Phon e Number [facility] POINT OF CARE [address] [place] [phone] RED BLOOD CELLS LEUKOCYTE REDUCED ADULT (BLOOD ADMIN) (06/24/2022 8:39 AM CDT) athologist [facility] RBC Ready Product [facility] Ready Specimen Anatomical Collection Method Collection Time Receive d Time (Source) Location / / Volume Laterality Other 06/24/2022 8:39 AM 2 8:39 CDT AM CDT Narrative [facility] - 06/24/2022 8:45 AM CDT 2 units water pollution specialist to OR to have available in case 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 bleeding Is a signed informed consent on file: Ludwig regan-on file Reason for Transfusion:->Anticipated Blo od Loss for Surgery/Procedure Does patient require irradiated product: No 2 Units Miri Matthew MD BLOOD BANK ORDERABLES (BLOOD ADMIN) Performing Organization Address [facility]/ZIP Code Phon e Number [facility] [place] [address] (ABNORMAL) ANTI XA HEPARIN UNFRACTIONATED (06/24/2022 7:04 AM CDT) athologist Signature Anti XA Hep U 0.12 (L) 0.30 - [facility] 0.70 IU/mL Specimen Anatomical Collection Method Collection Time Receive d Time (Source) Location / / Volume Laterality Blood 06/24/2022 7:04 AM 2 7:35 CDT AM CDT Patrice Hollins MD LABORATORY Performing Organization Address City/State/ZIP Code Phon e Number [facility] [place] [address] (ABNORMAL) POC GLUCOSE (06/24/2022 6:42 AM CDT) athologist [facility] POC Glucose 155 (H) 70 - 100 [facility] mg/dL CAMPUS - POINT OF CARE Specimen (Source) Anatomical Collection Method Collection Time Re ceived Time Location / / Volume Laterality Blood 06/24/2022 6:42 AM CDT Kingston Castañeda MD LABORATORY Performing Organization Address City/State/ZIP Code Phon e Number [facility] - POINT OF CARE [address] [place] [phone] MAGNESIUM (06/24/2022 5:43 AM CDT) athologist [facility] Magnesium 2.0 1.6 - 2.6 [facility] mg/dL Specimen Anatomical Collection Method Collection Time Receive d Time (Source) Location / / Volume Laterality Blood 06/24/2022 5:43 AM 6:18 CDT AM CDT Patrice Hollins MD LABORATORY Performing Organization Address City/[facility]/ZIP Code Phon e Number [facility] [place] [address] (ABNORMAL) PANEL RENAL (06/24/2022 5:43 AM CDT) athologist [facility] Sodium 132 (L) 135 - 148 [facility] mEq/L Potassium 4.2 3.5 - 5.3 [facility] mEq/L Chloride 96 92 - 108 [facility] mEq/L CO2 23 22 - 30 [facility] mEq/L Glucose 160 (H) 70 - 100 [facility] mg/dL BUN 19 6 - 20 [facility] mg/dL Creatinine 0.62 (L) 0.70 - 1.25 [facility] mg/dL Calcium 9.5 8.6 - 10.0 [facility] mg/dL Albumin 3.7 (L) 3.8 - 5.1 [facility] g/dL Phosphorus 4.3 2.5 - 4.5 [facility] mg/dL eGFR, High >120 >=60 [facility] ml/min/1.73 m2 Comment: Calculated using CKD-EPI equati on AnGap 13 8 - 16 mEq/L [facility] eGFR, Low 120 >=60 ml/min/1.73m2 [facility] Comment: Calculated using CKD-EPI equati on Specimen Anatomical Collection Method Collection Time Receive d Time (Source) Location / / Volume Laterality Blood 06/24/2022 5:43 AM 2 6:18 CDT AM CDT Patrice Hollins MD LABORATORY Performing Organization Address City/[facility]/ZIP Code Phon e Number [facility] [place] [address] (ABNORMAL) CBC WITH PLATELET (06/24/2022 5:43 AM CDT) P athologist Signature WBC 11.29 (H) 4.00 - [facility] 10.00 k/cmm RBC 4.30 (L) 4.60 - 6.00 [facility] m/cmm Hgb 12.0 (L) 13.1 - 17.5 [facility] g/dL Hematocrit 36.0 (L) 40.0 - 51.0 [facility] % MCV 83.7 80.0 - [facility] 100.0 fL MCH 27.9 25.0 - 32.0 [facility] pg MCHC 33.3 31.0 - 36.0 [facility] g/dL RDW 13.3 11.5 - 14.5 [facility] % Plt 527 (H) 150 - 400 [facility] k/cmm MPV 9.8 6.5 - 12.5 [facility] fL Specimen Anatomical Collection Method Collection Time Receive d Time (Source) Location / / Volume Laterality Blood 06/24/2022 5:43 AM 2 6:18 CDT AM CDT Patrice Hollins MD LABORATORY Performing Organization Address City/State/ZIP Code Phon e Number [facility] [place] [address] (ABNORMAL) ANTI XA HEPARIN UNFRACTIONATED (06/23/2022 10:42 PM CDT) P athologist Signature Anti XA Hep U 0.29 (L) 0.30 - [facility] 0.70 IU/mL Specimen Anatomical Collection Method Collection Time Receive d Time (Source) Location / / Volume Laterality Blood 06/23/2022 10:42 06/23/2022 PM CDT 11:02 PM CDT Patrice Hollins MD LABORATORY Performing Organization Address City/[facility]/ZIP Code Phon e Number [facility] [place] [address] (ABNORMAL) POC GLUCOSE (06/23/2022 8:46 PM CDT) athologist Signature POC Glucose 136 (H) 70 - 100 [facility] mg/dL CAMPUS - POINT OF CARE Specimen (Source) Anatomical Collection Method Collection Time Re ceived Time Location / / Volume Laterality Blood 06/23/2022 8:46 PM CDT Kingston Castañeda MD LABORATORY Performing Organization Address City/[facility]/ZIP Code Phon e Number [facility] POINT OF CARE [address] [place] [phone] (ABNORMAL) POC GLUCOSE (06/23/2022 3:57 PM CDT) athologist Signature POC Glucose 200 (H) 70 - 100 [facility] mg/dL [place] - POINT OF CARE Specimen (Source) Anatomical Collection Method Collection Time Re ceived Time Location / / Volume Laterality Blood 06/23/2022 3:57 PM CDT Kingston Castañeda MD LABORATORY Performing Organization Address City/[facility]/ZIP Code Phon e Number [facility] POINT OF CARE [address] [place] [phone] (ABNORMAL) ANTI XA HEPARIN UNFRACTIONATED (06/23/2022 3:40 PM CDT) Analysis Performed At [facility] Signature Anti XA Hep U <0.04 (L) 0.30 - [facility] 0.70 IU/mL Specimen Anatomical Collection Method Collection Time Receive d Time (Source) Location / / Volume Laterality Blood 06/23/2022 3:40 PM 3:47 CDT PM CDT Patrice Hollins MD LABORATORY Performing Organization Address City/[facility]/ZIP Code Phon e Number [facility] [place] [address] (ABNORMAL) POC GLUCOSE (06/23/2022 11:08 AM CDT) athologist Signature POC Glucose 125 (H) 70 - 100 [facility] mg/dL CAMPUS - POINT OF CARE Specimen (Source) Anatomical Collection Method Collection Time Re ceived Time Location / / Volume Laterality Blood 06/23/2022 11:08 AM CDT Kingston Castañeda MD LABORATORY Performing Organization Address City/[facility]/ZIP Code Phon e Number [facility] - POINT OF CARE [address] [place] [phone] (ABNORMAL) ANTI XA HEPARIN UNFRACTIONATED (06/23/2022 6:25 AM CDT) [facility] Signature Anti XA Hep U <0.04 (L) 0.30 - [facility] 0.70 IU/mL Specimen Anatomical Collection Method Collection Time Receive d Time (Source) Location / / Volume Laterality Blood 06/23/2022 6:25 AM 6:34 CDT AM CDT Patrice Hollins MD LABORATORY Performing Organization Address City/[facility]/ZIP Code Phon e Number [facility] [place] [address] (ABNORMAL) POC GLUCOSE (06/23/2022 6:10 AM CDT) athologist Signature POC Glucose 131 (H) 70 - 100 [facility] mg/dL CAMPUS - POINT OF CARE Specimen (Source) Anatomical Collection Method Collection Time Re ceived Time Location / / Volume Laterality Blood 06/23/2022 6:10 AM CDT Kingston Castañeda MD LABORATORY Performing Organization Address City/State/ZIP Code Phon e Number [facility] - POINT OF CARE [address] [place] [address] (ABNORMAL) POC GLUCOSE (06/22/2022 9:19 PM CDT) athologist Signature POC Glucose 195 (H) 70 - 100 [facility] mg/dL CAMP[facility] - POINT OF CARE Specimen (Source) Anatomical Collection Method Collection Time Re ceived Time Location / / Volume Laterality Blood 06/22/2022 9:19 PM CDT Kingston Castañeda MD LABORATORY Performing Organization Address City/[facility]/ZIP Code Phon e Number [facility] - POINT OF CARE [address] [place] [address] (ABNORMAL) POC GLUCOSE (06/22/2022 4:03 PM CDT) athologist Signature POC Glucose 142 (H) 70 - 100 [facility] mg/dL [place] - POINT OF CARE Specimen (Source) Anatomical Collection Method Collection Time Re ceived Time Location / / Volume Laterality Blood 06/22/2022 4:03 PM CDT Kingston Castañeda MD LABORATORY Performing Organization Address City/[facility]/ZIP Code Phon e Number [facility] - POINT OF CARE [address] [place] [address] (ABNORMAL) POC GLUCOSE (06/22/2022 11:07 AM CDT) athologist Signature POC Glucose 115 (H) 70 - 100 [facility] mg/dL [facility] POINT OF CARE Specimen (Source) Anatomical Collection Method Collection Time Re ceived Time Location / / Volume Laterality Blood 06/22/2022 11:07 AM CDT Kingston Castañeda MD LABORATORY Performing Organization Address City/[facility] Phon e Number [facility] POINT OF CARE [address] [place] [address] (ABNORMAL) PROTHROMBIN (PT) & INR (06/22/2022 10:53 AM CDT) athologist [facility] PT 13.9 (H) 9.0 - 12.5 [facility] sec INR 1.2 (H) 0.8 - 1.1 [facility] Specimen Anatomical Collection Method Collection Time Receive d Time (Source) Location / / Volume Laterality Blood 06/22/2022 10:53 06/22/2022 AM CDT 11:01 AM CDT Patrice Hollins MD LABORATORY Performing Organization Address City/State/ZIP Code Phon e Number [facility] [place] [address] [facility] ANTIBODY SCREEN (06/22/2022 10:53 AM CDT) athologist Signature Sabrina Screen Negative [facility] Specimen Anatomical Collection Method Collection Time Receive d Time (Source) Location / / Volume Laterality Blood 06/22/2022 10:53 06/22/2022 AM CDT 11:02 AM CDT Patrice Hollins MD LAB TRANSFUSION SERVICES Performing Organization Address City/[facility]/ZIP Code Phon e Number [facility] [place] [address] BLOOD TYPING-ABO/RH (06/22/2022 10:53 AM CDT) athologist [facility] ABORHG A POS [facility] Specimen Anatomical Collection Method Collection Time Receive d Time (Source) Location / / Volume Laterality Blood 06/22/2022 10:53 06/22/2022 AM CDT 11:02 AM CDT Patrice Hollins MD LAB TRANSFUSION SERVICES Performing Organization Address City/[facility]/ZIP Code Phon e Number [facility] [place] [address] COVID-19 SURVEILLANCE (06/22/2022 7:10 AM CDT) [facility] Method Time Signature COVID-19 Not Detected Not Detected [facility] Specimen (Source) Anatomical Collection Method Collection Time Re ceived Time Location / / Volume Laterality Nasopharyngeal Swab 06/22/2022 7:10 06/22 AM CDT 11:15 AM CDT Narrative [facility] - 06/22/2022 12:26 PM CDT Preferred specimen is Nasopharyngeal swab Is the patient a healthcare employee: No Is the patient a [employer] ([facility]) Employee : No Patrice Hollins MD LABORATORY Performing Organization Address City/[facility]/ZIP Code Phon e Number [facility] [place] [address] (ABNORMAL) POC GLUCOSE (06/22/2022 6:11 AM CDT) athologist [facility] POC Glucose 160 (H) 70 - 100 [facility] mg/dL CAMPUS - POINT OF CARE Specimen (Source) Anatomical Collection Method Collection Time Re ceived Time Location / / Volume Laterality Blood 06/22/2022 6:11 AM CDT Kingston Castañeda MD LABORATORY Performing Organization Address City/[facility]/ZIP Code Phon e Number [facility] - POINT OF CARE [address] [place] [address] ANTI XA HEPARIN UNFRACTIONATED (06/22/2022 5:25 AM CDT) athologist Signature Anti XA Hep U 0.53 0.30 - 0.70 [facility] IU/mL Specimen Anatomical Collection Method Collection Time Receive d Time (Source) Location / / Volume Laterality Blood 06/22/2022 5:25 AM 2 9:54 CDT AM CDT Patrice Hollins MD LABORATORY Performing Organization Address City/[facility]/ZIP Code Phon e Number [facility] [place] [address] (ABNORMAL) CBC WITH PLATELET (06/22/2022 5:25 AM CDT) P athologist Signature WBC 10.55 (H) 4.00 - [facility] 10.00 k/cmm RBC 3.58 (L) 4.60 - 6.00 [facility] m/cmm Hgb 10.1 (L) 13.1 - 17.5 [facility] g/dL Hematocrit 30.2 (L) 40.0 - 51.0 [facility] % MCV 84.4 80.0 - [facility] 100.0 fL MCH 28.2 25.0 - 32.0 [facility] pg MCHC 33.4 31.0 - 36.0 [facility] g/dL RDW 13.3 11.5 - 14.5 [facility] % Plt 378 150 - 400 [facility] k/cmm MPV 9.7 6.5 - 12.5 [facility] fL Specimen Anatomical Collection Method Collection Time Receive d Time (Source) Location / / Volume Laterality Blood 06/22/2022 5:25 AM 2 5:39 CDT AM CDT Patrice Hollins MD LABORATORY Performing Organization Address City/[facility]/ZIP Code Phon e Number [facility] [place] [address] ANTI XA ASSAY LMW HEPARIN (06/22/2022 5:25 AM CDT) P athologist Signature Anti XA LMW 0.63 IU/mL [facility] Comment: Anti Xa Assay LMW Heparin Therapeutic Ra nges: 0.4-1.1 IU/mL for twice daily 1.0-2.0 IU/mL for once daily Specimen Anatomical Collection Method Collection Time Receive d Time (Source) Location / / Volume Laterality Blood 06/22/2022 5:25 AM 5:39 CDT AM CDT Patrice Hollins MD LABORATORY Performing Organization Address City/[facility]/ZIP Code Phon e Number [facility] [place] [address] [place] [address] (ABNORMAL) POC GLUCOSE (06/21/2022 9:06 PM CDT) athologist Signature POC Glucose 158 (H) 70 - 100 [facility] mg/dL CAMPUS - POINT OF CARE Specimen (Source) Anatomical Collection Method Collection Time Re ceived Time Location / / Volume Laterality Blood 06/21/2022 9:06 PM CDT Kingston Castañeda MD LABORATORY Performing Organization Address City/[facility]/ZIP Code Phon e Number [facility] - POINT OF CARE [address] [place] [phone] (ABNORMAL) POC GLUCOSE (06/21/2022 4:13 PM CDT) athologist Signature POC Glucose 145 (H) 70 - 100 [facility] mg/dL CAMPUS - POINT OF CARE Specimen (Source) Anatomical Collection Method Collection Time Re ceived Time Location / / Volume Laterality Blood 06/21/2022 4:13 PM CDT Kingston Castañeda MD LABORATORY Performing Organization Address City/[facility] Code Phon e Number [facility] - POINT OF [address] [address] (ABNORMAL) POC GLUCOSE (06/21/2022 11:53 AM CDT) athologist Signature POC Glucose 154 (H) 70 - 100 [facility] mg/dL CAMPUS - POINT OF CARE Specimen (Source) Anatomical Collection Method Collection Time Re ceived Time Location / / Volume Laterality Blood 06/21/2022 11:53 AM CDT Kingston Castañeda MD LABORATORY Performing Organization Address City/[facility]/ZIP Code Phon e Number [facility] POINT OF CARE [address] [place] [address] ANTI XA HEPARIN UNFRACTIONATED (06/21/2022 6:19 AM CDT) athologist Signature Anti XA Hep U 0.30 0.30 - 0.70 [facility] IU/mL Specimen Anatomical Collection Method Collection Time Receive d Time (Source) Location / / Volume Laterality Blood 06/21/2022 6:19 AM 6:57 CDT AM CDT Patrice Hollins MD LABORATORY Performing Organization Address City/[facility]/ZIP Code Phon e Number [facility] [place] [address] [place] [address] (ABNORMAL) POC GLUCOSE (06/21/2022 6:17 AM CDT) athologist Signature POC Glucose 141 (H) 70 - 100 [facility] mg/dL CAMPUS - POINT OF CARE Specimen (Source) Anatomical Collection Method Collection Time Re ceived Time Location / / Volume Laterality Blood 06/21/2022 6:17 AM CDT Kingston Castañeda MD LABORATORY Performing Organization Address City/[facility] Code Phon e Number [facility] POINT OF CARE [address] [place] [address] (ABNORMAL) POC GLUCOSE (06/20/2022 8:51 PM CDT) athologist Signature POC Glucose 153 (H) 70 - 100 [facility] mg/dL CAMPUS - POINT OF CARE Specimen (Source) Anatomical Collection Method Collection Time Re ceived Time Location / / Volume Laterality Blood 06/20/2022 8:51 PM CDT Kingston Castañeda MD LABORATORY Performing Organization Address [facility] Phon e Number [facility] POINT OF [facility] [address] [place] [phone] (ABNORMAL) POC GLUCOSE (06/20/2022 4:10 PM CDT) athologist Signature POC Glucose 133 (H) 70 - 100 [facility] mg/dL CAMPUS - POINT OF CARE Specimen (Source) Anatomical Collection Method Collection Time Re ceived Time Location / / Volume Laterality Blood 06/20/2022 4:10 PM CDT Kingston Castañeda MD LABORATORY Performing Organization Address [facility] Code Phon e Number [facility] POINT OF CARE [address] [place] [phone] XR ANKLE RIGHT 3 V AP/OBL/LAT* (06/20/2022 [...] noted. IMPRESSION Impression: No fracture. Reading Radiologist: Mario Orr Patrice Hollins MD X-RAY ANTI XA HEPARIN UNFRACTIONATED (06/20/2022 12:14 PM CDT) athologist Signature Anti XA Hep U 0.34 0.30 - 0.70 [facility] IU/mL Specimen Anatomical Collection Method Collection Time Receive d Time (Source) Location / / Volume Laterality Blood 06/20/2022 12:14 06/20/2022 PM CDT 12:42 PM CDT Patrice Hollins MD LABORATORY Performing Organization Address City/[facility]/ZIP Code Phon e Number [facility] [place] [address] (ABNORMAL) POC GLUCOSE (06/20/2022 12:06 PM CDT) athologist Signature POC Glucose 143 (H) 70 - 100 [facility] mg/dL CAMPUS - POINT OF CARE Specimen (Source) Anatomical Collection Method Collection Time Re ceived Time Location / / Volume Laterality Blood 06/20/2022 12:06 PM CDT Kingston Castañeda MD LABORATORY Performing Organization Address City/State/ZIP Code Phon e Number [facility] - POINT OF CARE [address] [place] [phone] (ABNORMAL) POC GLUCOSE (06/20/2022 6:19 AM CDT) athologist Signature POC Glucose 126 (H) 70 - 100 [facility] mg/dL CAMPUS - POINT OF CARE Specimen (Source) Anatomical Collection Method Collection Time Re ceived Time Location / / Volume Laterality Blood 06/20/2022 6:19 AM CDT Kingston Castañeda MD LABORATORY Performing Organization Address City/State/ZIP Code Phon e Number [facility] - POINT OF CARE [address] [place] [address] ANTI XA HEPARIN UNFRACTIONATED (06/20/2022 5:57 AM CDT) athologist Signature Anti XA Hep U 0.42 0.30 - 0.70 [facility] IU/mL Specimen Anatomical Collection Method Collection Time Receive d Time (Source) Location / / Volume Laterality Blood 06/20/2022 5:57 AM 2 6:19 CDT AM CDT Patrice Hollins MD LABORATORY Performing Organization Address City/[facility]/ZIP Code Phon e Number [facility] [place] [address] [place] [address] (ABNORMAL) PANEL BASIC METABOLIC (BMP) (06/20/2022 5:57 AM CDT) athologist Signature CO2 26 22 - 30 [facility] mEq/L Glucose 146 (H) 70 - 100 [facility] mg/dL BUN 14 6 - 20 [facility] mg/dL Creatinine 0.63 (L) 0.70 - 1.25 [facility] mg/dL Calcium 8.4 (L) 8.6 - 10.0 [facility] mg/dL eGFR, High >120 >=60 [facility] ml/min/1.73 m2 Comment: Calculated using CKD-EPI equati on Sodium 139 135 - 148 mEq/L [facility] Potassium 3.8 3.5 - 5.3 mEq/L [facility] Chloride 103 92 - 108 mEq/L [facility] eGFR, Low 119 >=60 ml/min/1.73m2 [facility] Comment: Calculated using CKD-EPI equati on AnGap 10 8 - 16 mEq/L [facility] Specimen Anatomical Collection Method Collection Time Receive d Time (Source) Location / / Volume Laterality Blood 06/20/2022 5:57 AM 2 6:19 CDT AM CDT Patrice Hollins MD LABORATORY Performing Organization Address City/State/ZIP Code Phon e Number [facility] [place] [address] (ABNORMAL) CBC WITH PLATELET (06/20/2022 5:57 AM CDT) athologist [facility] WBC 7.23 4.00 - [facility] 10.00 k/cmm RBC 3.19 (L) 4.60 - 6.00 [facility] m/cmm Hgb 9.0 (L) 13.1 - 17.5 [facility] g/dL Hematocrit 27.0 (L) 40.0 - 51.0 [facility] % MCV 84.6 80.0 - [facility] 100.0 fL MCH 28.2 25.0 - 32.0 [facility] pg MCHC 33.3 31.0 - 36.0 [facility] g/dL RDW 13.1 11.5 - 14.5 [facility] % Plt 266 150 - 400 [facility] k/cmm MPV 10.1 6.5 - 12.5 [facility] fL Specimen Anatomical Collection Method Collection Time Receive d Time (Source) Location / / Volume Laterality Blood 06/20/2022 5:57 AM 2 6:19 CDT AM CDT Patrice Hollins MD LABORATORY Performing Organization Address [facility]/ZIP Code Phon e Number [facility] [place] [address] EXTRA TUBE - SST (06/20/2022 1:05 AM CDT) [facility] Comment: SST tubes (Serum Separator) are stored in the lab for 3 days from the collection date. Specimen Anatomical Collection Method Collection Time Receive d Time (Source) Location / / Volume Laterality Blood 06/20/2022 1:05 AM 2 1:05 CDT AM CDT Kingston Castañeda MD LABORATORY Performing Organization Address City/[facility]/ZIP Code Phon e Number [facility] [place] [address] ANTI XA HEPARIN UNFRACTIONATED (06/20/2022 12:19 AM CDT) athologist Signature Anti XA Hep U 0.44 0.30 - 0.70 [facility] IU/mL Specimen Anatomical Collection Method Collection Time Receive d Time (Source) Location / / Volume Laterality Blood 06/20/2022 12:19 06/20/2022 1:07 AM CDT AM CDT Patrice Hollins MD LABORATORY Performing Organization Address City/[facility]/ZIP Code Phon e Number [facility] [place] [address] (ABNORMAL) POC GLUCOSE (06/19/2022 8:57 PM CDT) athologist Signature POC Glucose 126 (H) 70 - 100 [facility] mg/dL CAMPUS - POINT OF CARE Specimen (Source) Anatomical Collection Method Collection Time Re ceived Time Location / / Volume Laterality Blood 06/19/2022 8:57 PM CDT Kingston Castañeda MD LABORATORY Performing Organization Address [facility] Code Phon e Number [facility] - POINT OF CARE [address] [place] [address] XR FOOT RIGHT 3 V AP/OBL/LAT* (06/19/2022 [...] T12 and L1 vertebral body. Reading Radiologist: Doar Mathew Tamera LUGO-Trav X-RAY XR PELVIS 3 V AP + INLET/OUTLET (06/19/2022 5:58 PM CDT) Anatomical Region Laterality Modality Pelvis Computed Radiography Specimen (Source) Anatomical Collection Method Collection Time Re ceived Time Location / / Volume Laterality 06/19/2022 6:03 PM CDT Impressions 06/19/2022 6:04 PM CDT Impression: Stable alignment. Reading Radiologist: Anam Saleh Narrative 06/19/2022 6:04 PM CDT Indication: post-op plain films, AP/inlet/outlet ?? Comparison: 06/19/2022 Findings: postsurgical changes with a si ngle screw across the sacroiliac joints bilaterally. Alignment is stable without evidence of hardware failure. Stable appearance of the sacral fracture. Procedure Note Anam Saleh MBBS - 06/19/2022Forma tting of this note might be different from the original. Indication: post-op plain films, AP/inle t/outlet Comparison: 06/19/2022 Findings: postsurgical changes with a si ngle screw across the sacroiliac joints bilaterally. Alignment is stable without evidence of hardware failure. Stable appearance of the sacral fracture. IMPRESSION Impression: Stable alignment. Reading Radiologist: Anam Saleh Miri Matthew MD X-RAY (ABNORMAL) ANTI XA HEPARIN UNFRACTIONATED (06/19/2022 5:27 PM CDT) athologist Signature Anti XA Hep U 0.25 (L) 0.30 - [facility] 0.70 IU/mL Specimen Anatomical Collection Method Collection Time Receive d Time (Source) Location / / Volume Laterality Blood 06/19/2022 5:27 PM 6:07 CDT PM CDT Patrice Hollins MD LABORATORY Performing Organization Address City/[facility] Phon e Number [facility] [address] (ABNORMAL) POC GLUCOSE (06/19/2022 4:01 PM CDT) athologist Signature POC Glucose 159 (H) 70 - 100 [facility] mg/dL CAMPUS - POINT OF CARE Specimen (Source) Anatomical Collection Method Collection Time Re ceived Time Location / / Volume Laterality Blood 06/19/2022 4:01 PM CDT Kingston Castañeda MD LABORATORY Performing Organization Address City/[facility]/ZIP Code Phon e Number [facility] - POINT OF CARE [address] [place] [phone] ANTI XA HEPARIN UNFRACTIONATED (06/19/2022 12:51 PM CDT) athologist Signature Anti XA Hep U 0.34 0.30 - 0.70 [facility] IU/mL Specimen Anatomical Collection Method Collection Time Receive d Time (Source) Location / / Volume Laterality Blood 06/19/2022 12:51 06/19/2022 PM CDT 12:59 PM CDT Patrice Hollins MD LABORATORY Performing Organization Address City/[facility] Code Phon e Number [facility] [place] [address] PELVIS 3D RECONSTRUCTION (06/19/2022 11:49 AM [...] lower lumbar spine. Procedure Note Rizwan Cunningham MBBS - 06/19/2022Form [...] Rizwan Cunningham Miri Matthew MD CT BODY (ABNORMAL) POC GLUCOSE (06/19/2022 11:19 AM CDT) P athologist Signature POC Glucose 128 (H) 70 - 100 [facility] mg/dL CAMPUS - POINT OF CARE Specimen (Source) Anatomical Collection Method Collection Time Re ceived Time Location / / Volume Laterality Blood 06/19/2022 11:19 AM CDT Kingston Castañeda MD LABORATORY Performing Organization Address City/State/ZIP Code Phon e Number [facility] POINT OF CARE [address] [place] [address] CT UROGRAM (06/19/2022 11:05 AM CDT) Anatomical [...] Rizwan Cunningham Patrice Hollins MD CT BODY (ABNORMAL) POC GLUCOSE (06/19/2022 6:03 AM CDT) P athologist Signature POC Glucose 135 (H) 70 - 100 [facility] mg/dL CAMPUS - POINT OF CARE Specimen (Source) Anatomical Collection Method Collection Time Re ceived Time Location / / Volume Laterality Blood 06/19/2022 6:03 AM CDT Kingston Castañeda MD LABORATORY Performing Organization Address City/State/ZIP Code Phon e Number [facility] - POINT OF CARE [address] [place] [address] (ABNORMAL) ANTI XA HEPARIN UNFRACTIONATED (06/19/2022 5:15 AM CDT) Analysis Performed At Patho logist Time Signature Anti XA Hep U <0.04 (L) 0.30 - [facility] 0.70 IU/mL Specimen Anatomical Collection Method Collection Time Receive d Time (Source) Location / / Volume Laterality Blood 06/19/2022 5:15 AM 6:21 CDT AM CDT Patrice Hollins MD LABORATORY Performing Organization Address City/State/ZIP Code [place] [address] (ABNORMAL) PANEL BASIC METABOLIC (BMP) (06/19/2022 5:15 AM CDT) athologist Signature CO2 24 22 - 30 [facility] mEq/L Glucose 140 (H) 70 - 100 [facility] mg/dL BUN 12 6 - 20 [facility] mg/dL Creatinine 0.61 (L) 0.70 - 1.25 [facility] mg/dL Calcium 8.4 (L) 8.6 - 10.0 [facility] mg/dL eGFR, High >120 >=60 [facility] ml/min/1.73 m2 Comment: Calculated using CKD-EPI equati on Sodium 139 135 - 148 mEq/L [facility] Potassium 4.5 3.5 - 5.3 mEq/L [facility] Chloride 104 92 - 108 mEq/L [facility] eGFR, Low >120 >=60 ml/min/1.73m2 [facility] Comment: Calculated using CKD-EPI equati on AnGap 11 8 - 16 mEq/L [facility] Specimen Anatomical Collection Method Collection Time Receive d Time (Source) Location / / Volume Laterality Blood 06/19/2022 5:15 AM 6:21 CDT AM CDT Patrice Hollins MD LABORATORY Performing Organization Address City/[facility]/ZIP Code [place] [address] (ABNORMAL) CBC WITH PLATELET (06/19/2022 5:15 AM CDT) athologist Signature WBC 4.92 4.00 - [facility] 10.00 k/cmm RBC 3.30 (L) 4.60 - 6.00 [facility] m/cmm Hgb 9.4 (L) 13.1 - 17.5 [facility] g/dL Hematocrit 28.0 (L) 40.0 - 51.0 [facility] % MCV 84.8 80.0 - [facility] 100.0 fL MCH 28.5 25.0 - 32.0 [facility] pg MCHC 33.6 31.0 - 36.0 [facility] g/dL RDW 12.8 11.5 - 14.5 [facility] % Plt 227 150 - 400 [facility] k/cmm MPV 10.7 6.5 - 12.5 [facility] fL Specimen Anatomical Collection Method Collection Time Receive d Time (Source) Location / / Volume Laterality Blood 06/19/2022 5:15 AM 6:21 CDT AM CDT Patrice Hollins MD LABORATORY Performing Organization Address City/[facility]/ZIP Code Phon e Number [facility] [place] [address] (ABNORMAL) ANTI XA HEPARIN UNFRACTIONATED (06/18/2022 11:59 PM CDT) Analysis Performed At Patho logist Time Signature Anti XA Hep U <0.04 (L) 0.30 - [facility] 0.70 IU/mL Specimen Anatomical Collection Method Collection Time Receive d Time (Source) Location / / Volume Laterality Blood 06/18/2022 11:59 06/18/2022 PM CDT 11:59 PM CDT Narrative [facility] - 06/19/2022 12:35 AM CDT Baseline Patrice Hollins MD LABORATORY Performing Organization Address City/[facility]/ZIP Code Phon e Number [facility] [place] [address] (ABNORMAL) POC GLUCOSE (06/18/2022 9:13 PM CDT) P athologist Signature POC Glucose 127 (H) 70 - 100 [facility] mg/dL CAMPUS - POINT OF CARE Specimen (Source) Anatomical Collection Method Collection Time Re ceived Time Location / / Volume Laterality Blood 06/18/2022 9:13 PM CDT Kingston Castañeda MD LABORATORY Performing Organization Address City/State/ZIP Code Phon e Number [facility] - POINT OF CARE [address] [place] [phone] (ABNORMAL) POC GLUCOSE (06/18/2022 7:03 PM CDT) P athologist Signature POC Glucose 147 (H) 70 - 100 [facility] mg/dL CAMPUS - POINT OF CARE Specimen (Source) Anatomical Collection Method Collection Time Re ceived Time Location / / Volume Laterality Blood 06/18/2022 7:03 PM CDT Kingston Castañeda MD LABORATORY Performing Organization Address City/State/ZIP Code Phon e Number [facility] [place] - POINT OF CARE [address] [place] [address] XR C ARM OVER 3 HRS (06/18/2022 6:15 PM CDT) Specimen (Source) Anatomical Location Collection Method / Collectio n Time Received Time / Laterality Volume Miri Matthew MD FLUORO XR PELVIS 3 V AP + INLET/OUTLET (06/18/2022 6:15 PM CDT) Anatomical Region Laterality Modality Pelvis Radio Fluoroscopy Specimen (Source) Anatomical Collection Method Collection Time Re ceived Time Location / / Volume Laterality 06/19/2022 9:24 AM CDT Impressions 06/19/2022 9:30 AM CDT Impression: Spot films and fluoroscopy time provided to the OR. I have personally reviewed the image(s) and initial interpretation, and I agree with the findings as documented by the resident/fellow. Reading Radiologist: Rhett Ramires Reading Resident: Beto Irene 06/19/2022 9:30 AM CDT Indication:ORIF sacrum. Comparison:5 views of the pelvis dated . Fluoroscopy time:1.3 minutes Dose:6.2 mGy Findings: Fluoroscopy time and spot-film imaging was provided to the OR. Spot images show interval screw fixation of the SI joints and sacral fractures. Alignment is anatomic. No radiologist was present. Procedure Note Rhett Ramires, DO - 06/19/2022Form atting of this note might be different from the original. Indication:ORIF sacrum. Comparison:5 views of the pelvis dated . Fluoroscopy time:1.3 minutes Dose:6.2 mGy Findings: Fluoroscopy time and spot-film imaging was provided to the OR. Spot images show interval screw fixation of the SI joints and sacral fractures. Alignment is anatomic. No radiologist was present. IMPRESSION Impression: Spot films and fluoroscopy t charleen provided to the OR. I have personally reviewed the image(s) and initial interpretation, and I agree with the findings as documented by the resident/fellow. Reading Radiologist: Rhett Ramires Reading Resident: Beto Irene Miri Matthew MD X-RAY XR O ARM 0-1 HR (06/18/2022 5:50 PM CDT) Specimen (Source) Anatomical Location Collection Method / Collectio n Time Received Time / Laterality Volume Miri Matthew MD FLUORO XR PELVIS AP* (06/18/2022 5:50 PM CDT) Anatomical Region Laterality Modality Pelvis Radio Fluoroscopy Specimen (Source) Anatomical Collection Method Collection Time Re ceived Time Location / / Volume Laterality 06/19/2022 9:42 AM CDT Impressions 06/19/2022 10:09 AM CDT Impression: 1. Spot films and fluoroscopy time provi ded to the OR. 2. Computer-assisted surgical navigation was performed. I have personally reviewed the image(s) and initial interpretation, and I agree with the findings as documented by the resident/fellow. Reading Radiologist: Rhett Ramires Reading Resident: Beto Irene 06/19/2022 10:09 AM CDT Indication:ORIF sacrum. Comparison:5 views of the pelvis dated . Fluoroscopy time:1.73 seconds. Dose:1.19 mGy Multi-Plane Imaging CTDI: 16.36 mGy DLP: 261.69 (mGycm) Findings: Fluoroscopy time and spot-film imaging was provided to the OR. Spot images show interval placement of large caliber guide pin traversing both SI joints. No radiologist was present. Computer assisted surgical navigation wa s performed. Procedure Note Rhett Ramires, DO - 06/19/2022Form atting of this note might be different from the original. Indication:ORIF sacrum. Comparison:5 views of the pelvis dated . Fluoroscopy time:1.73 seconds. Dose:1.19 mGy Multi-Plane Imaging CTDI: 16.36 mGy DLP: 261.69 (mGycm) Findings: Fluoroscopy time and spot-film imaging was provided to the OR. Spot images show interval placement of large caliber guide pin traversing both SI joints. No radiologist was present. Computer assisted surgical navigation wa s performed. IMPRESSION Impression: 1. Spot films and fluoroscopy time provi ded to the OR. 2. Computer-assisted surgical navigation was performed. I have personally reviewed the image(s) and initial interpretation, and I agree with the findings as documented by the resident/fellow. Reading Radiologist: Rhett Ramires Reading Resident: Beto Irene Miri Matthew MD X-RAY POC GLUCOSE (06/18/2022 4:15 PM CDT) P athologist Signature POC Glucose 98 70 - 100 [facility] mg/dL CAMPUS - POINT OF CARE Specimen (Source) Anatomical Collection Method Collection Time Re ceived Time Location / / Volume Laterality Blood 06/18/2022 4:15 PM CDT Kingston Castañeda MD LABORATORY Performing Organization Address City/State/ZIP Code Phon e Number [facility] [place] - POINT OF CARE [address] [place] [address] .Post Sedation Immediate (06/18/2022 12:23 PM CDT) [...] the needle into the IVC. A 5 Wallisian pigtail flush catheter was advanced over the [...] the needle into the IVC. A 5 Wallisian pigtail flush catheter was advanc ed over [...] Ronal Rouse Ed Beaver PA-C [facility] (ABNORMAL) POC GLUCOSE (06/18/2022 11:21 AM CDT) athologist Signature POC Glucose 109 (H) 70 - 100 [facility] mg/dL CAMPUS - POINT OF CARE Specimen (Source) Anatomical Collection Method Collection Time Re ceived Time Location / / Volume Laterality Blood 06/18/2022 11:21 AM CDT Kingston Castañeda MD LABORATORY Performing Organization Address City/State/ZIP Code Phon e Number [facility] - POINT OF CARE [address] [place] [phone] (ABNORMAL) ANTI XA HEPARIN UNFRACTIONATED (06/18/2022 10:27 AM CDT) Analysis Performed At Patho logist Time Signature Anti XA Hep U <0.04 (L) 0.30 - [facility] 0.70 IU/mL Specimen Anatomical Collection Method Collection Time Receive d Time (Source) Location / / Volume Laterality Blood 06/18/2022 10:27 06/18/2022 AM CDT 10:32 AM CDT Patrice Hollins MD LABORATORY Performing Organization Address City/State/ZIP Code Phon e Number [facility] [place] [address] XR URETHROGRAM RETROGRADE (06/18/2022 9:14 AM CDT) [...] was unremarkable. No extravasatio n was demonstrated. Facility Maintenance Supervisor: Kirby Complications: None Fluoroscopy time: 22 seconds [...] urethra was unremarkable. No extravasation was demonstrated. Facility Maintenance Supervisor: Kirby Complications: None Fluoroscopy time: 22 seconds Dose: 12 mGy IMPRESSION IMPRESSION: No evidence for anterior ure thral injury. Reading Radiologist: Mario Orr Patrice Hollins MD FLUORO (ABNORMAL) POC GLUCOSE (06/18/2022 6:26 AM CDT) athologist Signature POC Glucose 125 (H) 70 - 100 [facility] mg/dL CAMPUS - POINT OF CARE Specimen (Source) Anatomical Collection Method Collection Time Re ceived Time Location / / Volume Laterality Blood 06/18/2022 6:26 AM CDT Kingston Castañeda MD LABORATORY Performing Organization Address City/State/ZIP Code Phon e Number [facility] POINT OF CARE [address] [place] [address] (ABNORMAL) ANTI XA HEPARIN UNFRACTIONATED (06/18/2022 4:50 AM CDT) Analysis Performed At Patho logist Time Signature Anti XA Hep U <0.04 (L) 0.30 - [facility] 0.70 IU/mL Specimen Anatomical Collection Method Collection Time Receive d Time (Source) Location / / Volume Laterality Blood 06/18/2022 4:50 AM 2 5:11 CDT AM CDT Patrice Hollins MD LABORATORY Performing Organization Address City/[facility]/ZIP Code Phon e Number [facility] [place] [address] (ABNORMAL) PANEL BASIC METABOLIC (BMP) (06/18/2022 4:50 AM CDT) P athologist Signature CO2 23 22 - 30 [facility] mEq/L Glucose 137 (H) 70 - 100 [facility] mg/dL BUN 12 6 - 20 [facility] mg/dL Creatinine 0.66 (L) 0.70 - 1.25 [facility] mg/dL Calcium 8.3 (L) 8.6 - 10.0 [facility] mg/dL eGFR, High >120 >=60 [facility] ml/min/1.73 m2 Comment: Calculated using CKD-EPI equati on Sodium 137 135 - 148 mEq/L [facility] Potassium 3.8 3.5 - 5.3 mEq/L [facility] Chloride 105 92 - 108 mEq/L [facility] eGFR, Low 117 >=60 ml/min/1.73m2 [facility] Comment: Calculated using CKD-EPI equati on AnGap 9 8 - 16 mEq/L [facility] Specimen Anatomical Collection Method Collection Time Receive d Time (Source) Location / / Volume Laterality Blood 06/18/2022 4:50 AM 2 5:11 CDT AM CDT Patrice Hollins MD LABORATORY Performing Organization Address City/[facility]/ZIP Code Phon e Number [facility] [place] [address] (ABNORMAL) CBC WITH PLATELET (06/18/2022 4:50 AM CDT) P athologist Signature WBC 7.80 4.00 - [facility] 10.00 k/cmm RBC 3.37 (L) 4.60 - 6.00 [facility] m/cmm Hgb 9.6 (L) 13.1 - 17.5 [facility] g/dL Hematocrit 28.8 (L) 40.0 - 51.0 [facility] % MCV 85.5 80.0 - [facility] 100.0 fL MCH 28.5 25.0 - 32.0 [facility] pg MCHC 33.3 31.0 - 36.0 [facility] g/dL RDW 13.3 11.5 - 14.5 [facility] % Plt 191 150 - 400 [facility] k/cmm MPV 10.2 6.5 - 12.5 [facility] fL Specimen Anatomical Collection Method Collection Time Receive d Time (Source) Location / / Volume Laterality Blood 06/18/2022 4:50 AM 5:11 CDT AM CDT Patrice Hollins MD LABORATORY Performing Organization Address [facility] Phon e Number [facility] [place], [place] [address] [place] [address] (ABNORMAL) ANTI XA HEPARIN UNFRACTIONATED (06/17/2022 10:34 PM CDT) athologist Signature Anti XA Hep U 0.22 (L) 0.30 - [facility] 0.70 IU/mL Specimen Anatomical Collection Method Collection Time Receive d Time (Source) Location / / Volume Laterality Blood 06/17/2022 10:34 06/17/2022 PM CDT 11:12 PM CDT Patrice Hollins MD LABORATORY Performing Organization Address City/[facility] Code Phon e Number [facility] [place], [place] [id number] [place] [address] (ABNORMAL) POC GLUCOSE (06/17/2022 8:43 PM CDT) athologist Signature POC Glucose 132 (H) 70 - 100 [facility] mg/dL CAMPUS - POINT OF CARE Specimen (Source) Anatomical Collection Method Collection Time Re ceived Time Location / / Volume Laterality Blood 06/17/2022 8:43 PM CDT Kingston Castañeda MD LABORATORY Performing Organization Address City/[facility]/ZIP Code Phon e Number [facility] - POINT OF CARE [address] [place], [place] [id number] (ABNORMAL) POC GLUCOSE (06/17/2022 3:57 PM CDT) P athologist Signature POC Glucose 169 (H) 70 - 100 [facility] mg/dL CAMPUS - POINT OF CARE Specimen (Source) Anatomical Collection Method Collection Time Re ceived Time Location / / Volume Laterality Blood 06/17/2022 3:57 PM CDT Kingston Castañeda MD LABORATORY Performing Organization Address City/State/ZIP Code Phon e Number [facility] - POINT OF CARE [address] [place] [address] ULT VENOUS LOWER EXTREMITY BILAT (06/17/2022 3:35 PM CDT) Anatomical Region Laterality Modality Upper Leg Ultrasound Specimen (Source) Anatomical Collection Method Collection Time Re ceived Time Location / / Volume Laterality 06/17/2022 3:34 PM CDT Impressions 06/17/2022 3:38 PM CDT Impression: 1. Nonocclusive deep venous thrombosis i n the proximal right femoral vein. 2. No evidence of deep venous thrombosis in left lower extremity. Critical Results: ??The critical finding s in this report were reported to referring provider Nisha Guadalupe via [employer], who responded indicating that the communication was understood. Contact was made at the time of interpretation on 06/17/2022 3:37 PM, within 5 minutes of observation. Reading Radiologist: Lenny Callahan 06/17/2022 3:38 PM CDT Indication: no anticoagulation since admission, pelvic trauma ?? Comparison: None. Technique: ?? 1. ??Castañeda-scale imaging of the common fe moral, femoral, profunda femoral origin, great saphenous and ??popliteal veins in both lower extremities including compressibility 2. ??Color Doppler of the above mentione d deep veins 3. ??Doppler waveform analysis of each o f these veins Findings: There is nonocclusive thrombus in the pr oximal left femoral vein. The right common femoral vein, mid and distal vein, popliteal vein, profunda femoral origin, ??and great saphenous vein are fully compre ssible. They demonstrate normal Doppler flow, normal augmentation and normal color-flow. No thrombus is identified within them on grayscale imaging. The left common femoral vein, ??femoral ??vein, popliteal vein and great saphenous vein, profunda femoral origin are fully compressible. They demonstrate normal Doppler flow, normal augmentation and nor mal color-flow. No thrombus is identifie d within them on grayscale imaging. Procedure Note Lenny Callahan MD - 06/17/2022Formattin g of this note might be different from the original. Indication: no anticoagulation since adm ission, pelvic trauma Comparison: None. Technique: 1. Castañeda-scale imaging of the common femo ral, femoral, profunda femoral origin, great saphenous and popliteal veins in both lower extremities including compressibility 2. Color Doppler of the above mentioned deep veins 3. Doppler waveform analysis of each of these veins Findings: There is nonocclusive thrombus in the pr oximal left femoral vein. The right common femoral vein, mid and distal vein, popliteal vein, profunda femoral origin, and great saphenous vein are fully compressible. They demonstrate normal Doppler flow, normal augmentation and normal color-flow. No thrombus is identified within them on grayscale imaging. The left common femoral vein, femoral ve in, popliteal vein and great saphenous vein, profunda femoral origin are fully compressible. They demonstrate normal Doppler flow, normal augmentation and normal color-flow. No thrombus is identified wi thin them on grayscale imaging. IMPRESSION Impression: 1. Nonocclusive deep venous thrombosis i n the proximal right femoral vein. 2. No evidence of deep venous thrombosis in left lower extremity. Critical Results: The critical findings in this report were reported to referring provider Nisha Guadalupe via [employer], who responded indicating that the communication was understood. Contact was made at the time of interpretation on 06/17/2022 3:37 PM, wit hin 5 minutes of observation. Reading Radiologist: Lenny Callahan Meredith Guadalupe .NET ARCHITECT, BUFFER INFLATED PAD ULT (ABNORMAL) POC GLUCOSE (06/17/2022 11:54 AM CDT) P athologist Signature POC Glucose 102 (H) 70 - 100 [facility] mg/dL CAMPUS - POINT OF CARE Specimen (Source) Anatomical Collection Method Collection Time Re ceived Time Location / / Volume Laterality Blood 06/17/2022 11:54 AM CDT Kingston Castañeda MD LABORATORY Performing Organization Address City/State/ZIP Code Phon e Number [facility] - POINT OF CARE [address] [place] [address] ANTIBODY SCREEN (06/17/2022 11:46 AM CDT) athologist Signature Sabrina Screen Negative [facility] Specimen Anatomical Collection Method Collection Time Receive d Time (Source) Location / / Volume Laterality Blood 06/17/2022 11:46 06/17/2022 AM CDT 12:06 PM CDT Patrice Hollins MD LAB TRANSFUSION SERVICES Performing Organization Address City/[facility]/ZIP Code Phon e Number [facility] [place] [address] BLOOD TYPING-ABO/RH (06/17/2022 11:46 AM CDT) athologist Signature ABORHG A POS [facility] Specimen Anatomical Collection Method Collection Time Receive d Time (Source) Location / / Volume Laterality Blood 06/17/2022 11:46 06/17/2022 AM CDT 12:06 PM CDT Patrice Hollins MD LAB TRANSFUSION SERVICES Performing Organization Address [facility] Code Phon e Number [facility] [place] [address] POC GLUCOSE (06/17/2022 6:53 AM CDT) athologist [facility] POC Glucose 88 70 - 100 [facility] mg/dL CAMPUS - POINT OF CARE Specimen (Source) Anatomical Collection Method Collection Time Re ceived Time Location / / Volume Laterality Blood 06/17/2022 6:53 AM CDT Kingston Castañeda MD LABORATORY Performing Organization Address City/[facility]/ZIP Code Phon e Number [facility] - POINT OF CARE [address] [place] [phone] (ABNORMAL) POC GLUCOSE (06/17/2022 6:51 AM CDT) athologist Signature POC Glucose 20 (LL) 70 - 100 [facility] mg/dL CAMPUS - POINT OF CARE Specimen (Source) Anatomical Collection Method Collection Time Re ceived Time Location / / Volume Laterality Blood 06/17/2022 6:51 AM CDT Kingston Castañeda MD LABORATORY Performing Organization Address City/[facility]/ZIP Code Phon e Number [facility] [place] - POINT OF CARE [address] [place] [phone] (ABNORMAL) PANEL BASIC METABOLIC (BMP) (06/17/2022 5:07 AM CDT) athologist Signature CO2 23 22 - 30 [facility] mEq/L Glucose 118 (H) 70 - 100 [facility] mg/dL BUN 13 6 - 20 [facility] mg/dL Creatinine 0.82 0.70 - 1.25 [facility] mg/dL Calcium 8.1 (L) 8.6 - 10.0 [facility] mg/dL eGFR, High >120 >=60 [facility] ml/min/1.73 m2 Comment: Calculated using CKD-EPI equati on Sodium 137 135 - 148 mEq/L [facility] Potassium 3.6 3.5 - 5.3 mEq/L [facility] Chloride 105 92 - 108 mEq/L [facility] eGFR, Low 107 >=60 ml/min/1.73m2 [facility] Comment: Calculated using CKD-EPI equati on AnGap 9 8 - 16 mEq/L [facility] Specimen Anatomical Collection Method Collection Time Receive d Time (Source) Location / / Volume Laterality Blood 06/17/2022 5:07 AM 2 5:37 CDT AM CDT Kingston Castañeda MD LABORATORY Performing Organization Address City/State/ZIP Code Phon e Number [facility] [place] [address] [place] [address] (ABNORMAL) CBC WITH PLATELET (06/17/2022 5:07 AM CDT) athologist Signature WBC 7.32 4.00 - [facility] 10.00 k/cmm RBC 3.43 (L) 4.60 - 6.00 [facility] m/cmm Hgb 9.8 (L) 13.1 - 17.5 [facility] g/dL Hematocrit 29.4 (L) 40.0 - 51.0 [facility] % MCV 85.7 80.0 - [facility] 100.0 fL MCH 28.6 25.0 - 32.0 [facility] pg MCHC 33.3 31.0 - 36.0 [facility] g/dL RDW 13.3 11.5 - 14.5 [facility] % Plt 181 150 - 400 [facility] k/cmm MPV 10.1 6.5 - 12.5 [facility] fL Specimen Anatomical Collection Method Collection Time Receive d Time (Source) Location / / Volume Laterality Blood 06/17/2022 5:07 AM 5:36 CDT AM CDT Kingston Castañeda MD LABORATORY Performing Organization Address City/[facility]/ZIP Code Phon e Number [facility] [place] [address] (ABNORMAL) POC GLUCOSE (06/16/2022 9:14 PM CDT) athologist Signature POC Glucose 149 (H) 70 - 100 [facility] mg/dL CAMPUS - POINT OF CARE Specimen (Source) Anatomical Collection Method Collection Time Re ceived Time Location / / Volume Laterality Blood 06/16/2022 9:14 PM CDT Kingston Castañeda MD LABORATORY Performing Organization Address [facility] Code Phon e Number [facility] [place] - POINT OF CARE [address] [place] [id number] XR WRIST RIGHT 3+ PA/OB/LAT/JENS* (06/16/2022 6:58 PM CDT) Anatomical Region Laterality Modality Hand Computed Radiography Specimen (Source) Anatomical Collection Method Collection Time Re ceived Time Location / / Volume Laterality 06/16/2022 7:14 PM CDT Impressions 06/16/2022 7:25 PM CDT Impression: Intra-articular fracture of the distal radius. Reading Radiologist: Indio Cadena 06/16/2022 7:25 PM CDT Exam: Right wrist x-rays, 06/16/2022 Indication: Pain, tenderness, and swelli ng to right wrist. Fall. Comparison: None. Findings: 4 views of the right wrist. Os seous demineralization. Intravenous tubing is noted about the dorsum of the hand. Intra-articular fracture of the ulnar aspect of the distal radius. No other conv incing acute fracture. Mild soft tissue swelling about the wrist. Procedure Note Indio Cadena, - 06/16/2022Form atting of this note might be different from the original. Exam: Right wrist x-rays, 06/16/2022 Indication: Pain, tenderness, and swelli ng to right wrist. Fall. Comparison: None. Findings: 4 views of the right wrist. Os seous demineralization. Intravenous tubing is noted about the dorsum of the hand. Intra-articular fracture of the ulnar aspect of the distal radius. No other convincing acute fracture. Mild soft tissue swellin g about the wrist. IMPRESSION Impression: Intra-articular fracture of the distal radius. Reading Radiologist: Indio Cadena Yaritza Gallegos .NET ARCHITECT, BUFFER INFLATED PAD X-RAY POC GLUCOSE (06/16/2022 6:05 PM CDT) athologist Signature POC Glucose 73 70 - 100 [facility] mg/dL CAMPUS - POINT OF CARE Specimen (Source) Anatomical Collection Method Collection Time Re ceived Time Location / / Volume Laterality Blood 06/16/2022 6:05 PM CDT Kingston Castañeda MD LABORATORY Performing Organization Address [facility] Phon e Number [facility] - POINT OF CARE [address] [place] [address] POC GLUCOSE (06/16/2022 12:47 PM CDT) athologist Signature POC Glucose 95 70 - 100 [facility] mg/dL [place] - POINT OF CARE Specimen (Source) Anatomical Collection Method Collection Time Re ceived Time Location / / Volume Laterality Blood 06/16/2022 12:47 PM CDT Kingston Castañeda MD LABORATORY Performing Organization Address [facility] Phon e Number [facility] - POINT OF CARE [address] [place] [address] XR PELVIS 5V AP/IN/OUTLET/JUDET* (06/16/2022 12:19 PM CDT) Anatomical Region Laterality Modality Pelvis Computed Radiography Specimen (Source) Anatomical Collection Method Collection Time Re ceived Time Location / / Volume Laterality 06/16/2022 12:33 PM CDT Impressions 06/16/2022 12:35 PM CDT Impression: Stable alignment of multiple right pelvi c fractures including right acetabular and right sacral fractures Reading Radiologist: Sam Delgado 06/16/2022 12:35 PM CDT Indication: Pelvic ring [...] 06/15/2022. Fluoroscopy time: ??22 seconds Dose:12 mGy Chapman protocol was followed. ?? Technique: The patient [...] of extravasation of contrast. Procedure Note Anam Saleh MBBS - 06/16/2022Forma tting of this note might be different from the original. Exam: Cystogram Indication: Rule out bladder rupture Comparison: CT chest abdomen and pelvis 06/15/2022. Fluoroscopy time: 22 seconds Dose:12 mGy Chapman protocol was followed. Technique: The patient arrived [...] X-RAY LACTATE (LACTIC ACID) (06/16/2022 2:20 AM CDT) athologist Signature Lactate 0.7 0.7 - 2.1 [facility] mmol/L Specimen Anatomical Collection Method Collection Time Receive d Time (Source) Location / / Volume Laterality Blood 06/16/2022 2:20 AM 2 2:47 CDT AM CDT Narrative [facility] - 06/16/2022 3:06 AM CDT Send specimen on ice! Gideon Dyer MD LABORATORY Performing Organization Address City/State/ZIP Code Phon e Number [facility] [place] [address] (ABNORMAL) URINALYSIS,TOTAL (06/16/2022 12:20 AM CDT) [facility] Method Time Signature Color YELLOW YELLOW [facility] Appearance CLEAR CLEAR [facility] Urine Glucose NEGATIVE NEGATIVE [facility] mg/dL Bili UA NEGATIVE NEGATIVE [facility] Ketones TRACE (A) NEGATIVE [facility] mg/dL Blood Ur NEGATIVE Neg-Trace [facility] PH Urine 5.5 5.0 - 7.0 [facility] Protein Ur TRACE Neg-Trace [facility] mg/dL Urobilinogen NORMAL NORMAL EU/dL [facility] Nitrite Ur NEGATIVE NEGATIVE [facility] Leuk Est NEGATIVE Neg-Trace [facility] WBC Ur 6-10 (A) 0 - 5 perHPF [facility] RBC Ur 11-20 (A) 0 - 3 perHPF [facility] SQ EPITH 0-5 0 - 5 perHPF [facility] Mucus 1+ perLPF [facility] Sperm PRESENT [facility] Bacteria UA PRESENT [facility] Comment: Presence of bacteria does not n ecessarily indicate a UTI. The presence of bacteria can indicate a non-clean catch urine specimen. Bacteria should be used in conjunction with other UA results and cl inical presentation to assist in diagnosing an infection. Urinalysis Performed at: [facility] Specific [place] 1.010 1.003 - 1.030 [facility] Specimen Anatomical Collection Method Collection Time Receive d Time (Source) Location / / Volume Laterality Urine 06/16/2022 12:20 06/16/2022 AM CDT 12:39 AM CDT Gideon Dyer MD LABORATORY Performing Organization Address City/State/ZIP Code Phon e Number [facility] [place] [address] XR PELVIS AP* (06/15/2022 11:21 PM CDT) Anatomical Region Laterality Modality Pelvis Computed Radiography Specimen (Source) Anatomical Collection Method Collection Time Re ceived Time Location / / Volume Laterality 06/15/2022 11:27 PM CDT Impressions 06/15/2022 11:28 PM CDT Impression: No significant change in alignment. Reading Radiologist: Rizwan Cunningham Narrative 06/15/2022 11:28 PM CDT Indication: ??s/p traction pin ?? Comparison: Earlier same day Findings: Contrast excreted into the uri nary bladder. This obscures the sacral fracture. Right-sided pubic rami fractures without significant change in alignment. Right acetabular fracture is not well-visualized. Procedure Note Rizwan Cunningham MBBS - 06/15/2022Form atting of this note might be different from the original. Indication: s/p traction pin Comparison: Earlier same day Findings: Contrast excreted into the uri nary bladder. This obscures the sacral fracture. Right-sided pubic rami fractures without significant change in alignment. Right acetabular fracture is not well-visualized. IMPRESSION Impression: No significant change in ali gnment. Reading Radiologist: Rizwan Cunningham Kingston Castañeda MD X-RAY XR KNEE RIGHT 2 V AP/LAT (06/15/2022 [...] CDT Impression: No acute fracture. Reading Radiologist: Rizwan Cunningham Narrative 06/15/2022 10:24 PM CDT Indication: [...] fracture is identified. Procedure Note Rizwan Cunningham V. LEONARDBS - 06/15/2022Form atting of this note might [...] Cunningham Kingston Castañeda MD X-RAY CT SPINE LUMBAR NO IV CON (06/15/2022 [...] Kingston Castañeda MD CT NEURO CT SPINE THORACIC NO IV CON (06/15/2022 [...] femoris avulsion injury. Procedure Note Rizwan Cunningham V., LEONARD - 06/15/2022Form atting of this note might [...] canal or neural foraminal stenosis. 3. 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 Reading Radiologist: Stephany [...] ?? Findings: ??The lateral masses of C1 devan ear normally aligned on C2. The normal [...] visualized paraspi nous tissues is noted. Suspected False Pass syndrome on left. Procedure Note Stephany Granda [...] visualized paraspi nous tissues is noted. Suspected False Pass syndrome on left. IMPRESSION Impression: 1. No fracture or subluxation of the cer vical vertebrae. 2. No significant spinal canal or neural foraminal stenosis. 3. 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 Reading Radiologist: Stephany [...] styloid process, which can be seen in False Pass syndrome. The visualized portions of the paranasal [...] styloid process, which can be seen in False Pass syndrome. The visualized portions of the paranasal [...] Granda Kingston Castañeda MD CT NEURO XR PELVIS AP* (06/15/2022 7:34 PM CDT) Anatomical Region Laterality Modality Pelvis Computed Radiography Specimen (Source) Anatomical Collection Method Collection Time Re ceived Time Location / / Volume Laterality 06/15/2022 7:48 PM CDT Impressions 06/15/2022 7:48 PM CDT Impression: 1. Comminuted fracture of the sacrum. 2. Right superior and inferior pubic klaudia i fractures. Reading Radiologist: Rizwan Cunningham 06/15/2022 7:48 PM CDT Indication: ??fall ?? Findings: Single view of the pelvis show s comminuted right sacral fracture. There are also fractures of the right superior and inferior pubic rami. Chronic appearing avulsion injury from the right infer ior iliac spine. No definite left-sided pelvic fractures. Procedure Note Rizwan Cunningham MBBS - 06/15/2022Form atting of this note might be different from the original. Indication: fall Findings: Single view of the pelvis show s comminuted right sacral fracture. There are also fractures of the right superior and inferior pubic rami. Chronic appearing avulsion injury from the right inferior iliac spine. No definite left-sided pelv ic fractures. IMPRESSION Impression: 1. Comminuted fracture of the sacrum. 2. Right superior and inferior pubic klaudia i fractures. Reading Radiologist: Rizwan Cunningham Kingston Castañeda MD X-RAY XR CHEST 1 VIEW AP OR PA* [...] PM CDT) athologist Signature CASTAÑEDA TUBE Stored [facility] Comment: Castañeda top (Sodium flouride) tube s are stored in the lab for 3 days from the collection date. Specimen Anatomical Collection Method Collection Time Receive d Time (Source) Location / / Volume Laterality Blood 06/15/2022 7:20 PM 2 7:31 CDT PM CDT Kingston Castañeda MD LABORATORY Performing Organization Address City/[facility]/ZIP Code Phon e Number [facility] [place] [address] EXTRA TUBE - SST (06/15/2022 7:20 PM CDT) athologist Signature SST TUBE Stored [facility] Comment: SST tubes (Serum Separator) are stored in the lab for 3 days from the collection date. Specimen Anatomical Collection Method Collection Time Receive d Time (Source) Location / / Volume Laterality Blood 06/15/2022 7:20 PM 2 7:31 CDT PM CDT Kingston Castañeda MD LABORATORY Performing Organization Address [facility] Code Phon e Number [facility] [place] [address] HS TROPONIN (06/15/2022 7:20 PM CDT) athologist Signature HS Troponin I 4 <=34 ng/L [facility] Specimen Anatomical Collection Method Collection Time Receive d Time (Source) Location / / Volume Laterality Blood 06/15/2022 7:20 PM 2 7:41 CDT PM CDT Narrative [facility] - 06/15/2022 8:11 PM CDT First Occurrence of the Troponin order i s to be drawn Stat by Nursing staff on the unit. Gideon Dyer MD LABORATORY Performing Organization Address City/[facility]/ZIP Code Phon e Number [facility] [place] [address] (ABNORMAL) PTT (APTT) (06/15/2022 7:20 PM CDT) athologist Signature APTT 21.4 (L) 25.0 - 37.0 [facility] sec Specimen Anatomical Collection Method Collection Time Receive d Time (Source) Location / / Volume Laterality Blood 06/15/2022 7:20 PM 2 7:41 CDT PM CDT Gideon Dyer MD LABORATORY Performing Organization Address City/[facility]/ZIP Code Phon e Number [facility] [place] [address] PROTHROMBIN (PT) & INR (06/15/2022 7:20 PM CDT) P athologist Signature PT 11.9 9.0 - 12.5 [facility] sec INR 1.0 0.8 - 1.1 [facility] Specimen Anatomical Collection Method Collection Time Receive d Time (Source) Location / / Volume Laterality Blood 06/15/2022 7:20 PM 7:41 CDT PM CDT Gideon Dyer MD LABORATORY Performing Organization Address City/State/[facility] Code Phon e Number [facility] [place] [address] [place] [address] COVID-19 SURVEILLANCE (06/15/2022 7:20 PM CDT) Patholo gist Method Time Signature COVID-19 Not Detected Not Detected [facility] Comment: This test was developed and its performa nce characteristics determined by [facility]. This testing, RT-PCR, has been authorized by the FDA under an Emergency Use Authorization (EUA ) for Coronavirus Disease-2019 during e Public Health Emergency. This test has been susan idated in accordance with the FDA's Guidance Document Policy for EUA use and Accelerated Template for Laboratories Certified to Perform High-Complexity Testing Un akiko CLIA: EUA Template (Updated December 10, 2019)This test is only authorized for the duration of time the declaration that circumstances exist justifying the authorization of the emergency use of in vitro diagnostic tests for detection of SARS-CoV-2 virus and/or diagnosis of COVID-19 infection under section 564(b)(1) of the Act, 21U.S.C. 3 60bbb-3(b)(1), unless the authorization is terminated or revoked sooner. Nasopharyngeal specimens are the preferred specimens. Specimen (Source) Anatomical Collection Method Collection Time Re ceived Time Location / / Volume Laterality Nasopharyngeal Swab 06/15/2022 7:20 06/15 PM CDT 7:32 PM CDT Narrative [facility] - 06/15/2022 8:08 PM CDT Preferred specimen is Nasopharyngeal swab Is the patient a healthcare employee: No Is the patient a [place] ([facility]) Employee : No Gideon Dyer MD LABORATORY Performing Organization Address City/State/ZIP Code Phon e Number [facility] [place] [address] PRECAUTIONARY TUBE (06/15/2022 7:20 PM CDT) Patholo gist Method Time Signature Prec Tube Precautionary [facility] Blood Bank Specimen Received. Specimen Anatomical Collection Method Collection Time Receive d Time (Source) Location / / Volume Laterality Blood 06/15/2022 7:20 PM 2 7:43 CDT PM CDT Gideon Dyer MD LAB TRANSFUSION SERVICES Performing Organization Address City/State/ZIP Code Phon e Number [facility] [place] [address] LACTATE (LACTIC ACID) (06/15/2022 7:20 PM CDT) athologist Signature Lactate 1.4 0.7 - 2.1 [facility] mmol/L Specimen Anatomical Collection Method Collection Time Receive d Time (Source) Location / / Volume Laterality Blood 06/15/2022 7:20 PM 2 7:30 CDT PM CDT Narrative [facility] - 06/15/2022 7:30 PM CDT Send specimen on ice! Gideon Dyer MD LABORATORY Performing Organization Address City/State/ZIP Code Phon e Number [facility] [place] [address] (ABNORMAL) FIBRINOGEN (06/15/2022 7:20 PM CDT) athologist Signature Fibrinogen 199 (L) 200 - 400 [facility] mg/dL Specimen Anatomical Collection Method Collection Time Receive d Time (Source) Location / / Volume Laterality Blood 06/15/2022 7:20 PM 2 7:41 CDT PM CDT Gideon Dyer MD LABORATORY Performing Organization Address City/State/ZIP Code Phon e Number [facility] [place] [address] ED HEMOGLOBIN TOTAL (ED ONLY) (06/15/2022 7:20 PM CDT) athologist Signature Hgb 13.7 13.1 - 17.5 [facility] g/dL Specimen Anatomical Collection Method Collection Time Receive d Time (Source) Location / / Volume Laterality Blood 06/15/2022 7:20 PM 2 7:30 CDT PM CDT Gideon Dyer MD LABORATORY Performing Organization Address [facility] Code Phon e Number [facility] [place] [address] (ABNORMAL) ED CHEMISTRY LABS(NA,K,CL,CO2,GLU,CREAT,CA-IONIZED,ANION GAP) (06/15/2022 7:20 PM CDT) Analysis Performed At [facility] logist Time Signature Sodium 140 135 - 148 [facility] mEq/L Chloride 109 (H) 92 - 108 [facility] mEq/L AnGap 8 8 - 16 [facility] mEq/L Glucose 186 (H) 70 - 100 [facility] mg/dL ICA, Actual 4.44 4.40 - [facility] 5.20 mg/dL ICA, pH 4.28 (L) 4.40 - [facility] Corrected 5.20 mg/dL Creatinine 1.00 0.70 - [facility] 1.25 mg/dL BICARB 24 22 - 26 [facility] mEq/L eGFR, High 105 >=60 [facility] ml/min/1.7 3m2 Comment: Calculated using CKD-EPI equati on eGFR, Low 90 >=60 ml/min/1.73m2 [facility] Comment: Calculated using CKD-EPI equati on Potassium 3.6 3.5 - 5.3 mEq/L [facility] Specimen Anatomical Collection Method Collection Time Receive d Time (Source) Location / / Volume Laterality Blood 06/15/2022 7:20 PM 2 7:30 CDT PM CDT Gideon Dyer MD LABORATORY Performing Organization Address City/State/ZIP Code Phon e Number [facility] [place] [address] (ABNORMAL) CBC WITH PLTS/AUTO DIFF (06/15/2022 7:20 PM CDT) [facility] gist Method Time Signature WBC 14.21 (H) 4.00 - [facility] 10.00 k/cmm RBC 4.65 4.60 - [facility] 6.00 m/cmm Hgb 13.0 (L) 13.1 - [facility] 17.5 g/dL Hematocrit 39.7 (L) 40.0 - [facility] 51.0 % MCV 85.4 80.0 - [facility] 100.0 fL MCH 28.0 25.0 - [facility] 32.0 pg MCHC 32.7 31.0 - [facility] 36.0 g/dL RDW 13.2 11.5 - [facility] 14.5 % Plt 294 150 - 400 [facility] k/cmm MPV 10.6 6.5 - 12.5 [facility] fL Automated Abs 10.31 (H) 1.70 - [facility] Neutrophil 6.50 k/cmm Comment: Preliminary ANC, Final Result t o Follow Abs Immature Granulocyte 0.26 (H) 0.00 - 0.09 k/cmm [facility] Comment: The Immature Granulocyte Absolu te count contains metamyelocytes and myelocytes. Abs Neutrophil 10.31 (H) 1.70 - 6.50 k/cmm [facility] B Abs Lymphocyte 2.74 0.80 - 4.00 k/cmm [facility] B Abs Monocyte 0.67 0.20 - 1.00 k/cmm [facility] Abs Eosinophil 0.20 0.00 - 0.60 k/cmm [facility] B Abs Basophil 0.03 0.00 - 0.20 k/cmm [facility] Specimen Anatomical Collection Method Collection Time Receive d Time (Source) Location / / Volume Laterality Blood 06/15/2022 7:20 PM 7:41 CDT PM CDT Gideon Dyer MD LABORATORY Performing Organization Address City/State/ZIP Code Phon e Number [facility] [place] [address] BLOOD GASES (06/15/2022 7:20 PM CDT) P athologist Signature PH Anish 7.33 7.32 - 7.42 [facility] PCO2 Anish 46 41 - 51 [facility] mmHG PO2 Anish 35 25 - 40 [facility] mmHG Bicarb Anish 24 24 - 28 [facility] mEq/L O2 Sat Anish 62 % [facility] Base Exc Anish -2.9 -10.0 - 2.0 [facility] mEq/L Specimen Anatomical Collection Method Collection Time Receive d Time (Source) Location / / Volume Laterality Blood Venous 06/15/2022 7:20 PM 7:30 CDT PM CDT Gideon Dyer MD LABORATORY Performing Organization Address City/State/ZIP Code Phon e Number [facility] [place] [address] [place] [address] [place] [address] ED US CRITICAL CARE (06/15/2022 7:16 PM [...] 8:11 PM Gideon Dyer MD ED ULT documented in this encounter Visit Diagnoses Diagnosis Closed fracture of distal end of right r adius, unspecified fracture morphology, initial encounter - Primary Fall, initial encounter Pelvic ring fracture, closed, initial en counter () Other closed fracture of twelfth thoraci c vertebra, initial encounter () Closed nondisplaced fracture of right ac etabulum, unspecified portion of acetabulum, initial encounter () Status post open reduction and internal fixation (ORIF) of fracture Hyponatremia Hyposmolality and/or hyponatremia Type 2 diabetes mellitus without complic ation, without long-term current use of insulin () Closed fracture of transverse process of lumbar vertebra, initial encounter () Closed fracture of distal end of right r adius, unspecified fracture morphology, initial encounter documented in this encounter Admitting Diagnoses Diagnosis Fall, initial encounter documented in this encounter Administered Medications Inactive Administered Medications - up to 3 most recent administrations Medication Order MAR Action Action Date Dose Rate Site acetaminophen tablet 975 mg Given 06/27/2022 2:42 PM CDT 975 mg 975 mg, Oral, TID, First dose on Thu06/16/22 at 0800, Until Discontinued Given 06/27/2022 9:23 AM CDT 975 mg Given 06/26/2022 8:36 PM CDT 975 mg bisacodyl (DULCOLAX) suppository 10 mg Given 06/23/2022 8:43 PM CDT 10 mg 10 mg, Rectal, DAILY PRN, Starting on Thu06/16/22 at 0944, Until Thu06/27/22 at 2104, Constipation (Use Second) Given 06/23/2022 8:19 AM CDT 10 mg Given 06/19/2022 4:13 PM CDT 10 mg ceFAZolin (ANCEF) IVPB 2 g New Bag 06/19/2022 8:08 PM CDT 2 g 200 mL/hr 2 g, Indication (Select One): Prophylaxis - Surgical, Intravenous, Q 8H, 2 doses, First dose on Thu06/19/22 at 1140, Last dose on Thu06/19/22 at 2000 New Bag 06/19/2022 12:09 PM CDT 2 g 200 mL/hr ceFAZolin (ANCEF) IVPB 2 g New Bag 06/25/2022 12:33 PM CDT 2 g 200 mL/hr 2 g, Indication (Select One): Prophylaxis - Surgical, Intravenous, Q 8H, 1 dose, First dose on Thu06/25/22 at 1115 cyclobenzaprine (FLEXERIL) tablet 5 mg Given 06/27/2022 2:42 PM CDT 5 mg 5 mg, Oral, TID, First dose (after last modification) on Thu06/17/22 at 1400, Until Discontinued Given 06/27/2022 9:23 AM CDT 5 mg Given 06/26/2022 8:37 PM CDT 5 mg DC MED REC REVIEW BY PHARMACY Discharge Date: 06/26/2022, Discharge Loc ation: Home, Anticipated Discharge Time: Now, Discharge Medication Orders: DC Med Orders Final, Does not apply, PROTOCOL, Starting on Thu06/26/22 at 1546, Until 06/27/22 at 2104 diatrizoate meglumine Given 06/16/2022 11:10 AM CDT 200 mL Other (comment) (CYSTOGRAFIN) 18% solution 200 mL 200 mL, Urethral, RAD ONE TIME AUTO ACKNOWLEDGE, 1 dose, On 06/16/22 at 1225 enoxaparin (LOVENOX) 30 Given 06/17/2022 10:08 AM CDT 30 mg Left Lower Quadrant mg/0.3 mL injection 30 mg Abdomen 30 mg, Subcutaneous, Q12H, 2 doses, First dose on Thu06/17/22 at 0945, Last dose on Thu06/17/22 at 2000 enoxaparin (LOVENOX) 30 mg/0.3 Given 06/25/2022 7:56 AM CDT 30 m g Abdominal Tissue mL injection 30 mg 30 mg, Subcutaneous, Q12H, First dose on Thu06/24/22 at 2335, Until Discontinued Given 06/25/2022 12:00 AM CDT 30 mg Righ t Lower Quadrant Abdomen enoxaparin (LOVENOX) 40 mg/0.4 Given 06/27/2022 9:22 AM CDT 40 m g Right Upper Arm mL injection 40 mg 40 mg, Subcutaneous, Q12H, First dose (after last modification) on Thu06/25/22 at 2000, Until Discontinued Given 06/26/2022 8:36 PM CDT 40 mg Abdom inal Tissue Given 06/26/2022 8:27 AM CDT 40 mg Abdom inal Tissue fentaNYL (SUBLIMAZE) 100 mcg/2mL injection Given 06/15 10:35 PM CDT 100 mcg 100 mcg 100 mcg, IV Push, ONE TIME, 1 dose, On Thu06/15/22 at 2250 fentaNYL (SUBLIMAZE) 100 mcg/2mL injection 50 Given 7:22 PM CDT 50 mcg mcg 50 mcg, IV Push, ONE TIME, 1 dose, On Thu06/15/22 at 1950 fentaNYL (SUBLIMAZE) 100 mcg/2mL injection 50 Given 7:51 PM CDT 50 mcg mcg 50 mcg, IV Push, ONE TIME, 1 dose, On Thu06/15/22 at 1950 fentaNYL (SUBLIMAZE) 100 mcg/2mL injection 50 Given 7:06 PM CDT 50 mcg mcg 50 mcg, IV Push, PACU PRN Q5MIN, 4 doses, Starting on Thu06/18/22 at 1823, Until Thu06/18/22 at 1951, Moderate Pain (Use First) fentaNYL (SUBLIMAZE) 100 mcg/2mL Clinician Bolus 06/24/2022 5:02 PM C DT 50 mcg injection 50 mcg 50 mcg, IV Push, PACU PRN Q5MIN, 4 doses, Starting on Thu06/24/22 at 1534, Until Thu06/24/22 at 1810, Moderate Pain (Use First) fentaNYL (SUBLIMAZE) 100 mcg/2mL injecti on 1 dose, Starting on Thu06/15/22 at 2232, Until 06/05 at 2238 FLEET enema 118 mL 118 mL (1 enema), Rectal, ONE TIME PRN, 1 dose, Starting on Thu06/23/22 at 1335, Until Thu06/27/22 at 2104, Constipation (Use Second) furosemide (LASIX) injection 20 mg Given 06/19/2022 11:06 AM CDT 20 mg 20 mg, IV Push, RAD ONE TIME, 1 dose, First dose on Cathy 06/19/22 at 1110 GABApentin (NEURONTIN) capsule 300 mg Given 06/21/2022 9:04 AM CDT 300 mg 300 mg, Oral, TID, First dose on 06/16/22 at 0945, Until Discontinued Given 06/20/2022 8:18 PM CDT 300 mg Given 06/20/2022 2:24 PM CDT 300 mg GABApentin (NEURONTIN) capsule 400 mg Given 06/27/2022 2:42 PM CDT 400 mg 400 mg, Oral, TID, First dose (after last modification) on 06/21/22 at 1400, Until Discontinued Given 06/27/2022 9:24 AM CDT 400 mg Given 06/26/2022 8:37 PM CDT 400 mg haloperidol lactate (HALDOL) Clinician Bolus 06/24/2022 5:03 PM CDT 2 .5 mg Left Arm 5 mg/mL injection 1 dose, Starting on Thu06/24/22 at 1701, Until Thu06/24/22 at 1703 heparin 1000 UNITS/mL injection 7,400 Given 06/17/2022 5:19 PM C DT 7,400 UNITS UNITS 7,400 UNITS (rounded from 7,392 UNITS = 80 Units/kg ? 92.4 kg), IV Push, ONE TIME, 1 dose, On Thu06/17/22 at 1635 heparin 1000 UNITS/mL injection 7,400 Given 06/19/2022 6:36 AM C DT 7,400 UNITS UNITS 7,400 UNITS (rounded from 7,392 UNITS = 80 Units/kg ? 92.4 kg), IV Push, ONE TIME, 1 dose, On Thu06/19/22 at 0600 heparin 25,000 UNITS in New Bag 06/17/2022 5:25 PM CDT 18 Unit s/kg/hr 16.6 mL/hr 0.45 NS 250 mL infusion 1-40 Units/kg/hr ? 92.4 kg (0.924-36.96 mL/hr, rounded to 0.9-37 mL/hr), Indication (Select One): DVT / PE, Start infusion at (units/kg/hr): 18 units/kg/hr, Intravenous, CONTINUOUS, Starting on Thu06/17/22 at 1635, Until Thu06/18/22 at 0224 heparin 25,000 UNITS in New Bag 06/22/2022 5:28 PM CDT 22 Unit s/kg/hr 20.3 mL/hr 0.45 NS 250 mL infusion 1-40 Units/kg/hr ? 92.4 kg (0.924-36.96 mL/hr, rounded to 0.9-37 mL/hr), Indication (Select One): DVT / PE, Start infusion at (units/kg/hr): 18 units/kg/hr, Intravenous, CONTINUOUS, Starting on Thu06/19/22 at 0625, Until Ramah 06/22/22 at 2359 Infusing 06/22/2022 8:00 AM CDT 22 Units/kg/hr 20.3 mL/hr New Bag 06/22/2022 5:11 AM CDT 22 Units/kg/hr 20.3 mL/hr heparin 25,000 UNITS in Rate changed 06/23/2022 11:49 PM 22 Units/k g/hr 20.3 mL/hr 0.45 NS 250 mL infusion CDT 1-40 Units/kg/hr ? 92.4 kg (0.924-36.96 mL/hr, rounded to 0.9-37 mL/hr), Indication (Select One): DVT / PE, Start infusion at (units/kg/hr): 18 units/kg/hr, Intravenous, CONTINUOUS, Starting on Thu06/23/22 at 1455, Until Thu06/24/22 at 0600 Infusing 06/23/2022 7:02 PM CDT 18 Units/kg/hr 16.6 mL/hr Infusing 06/23/2022 6:00 PM CDT 18 Units/kg/hr 16.6 mL/hr heparin 3,700 UNITS New Bag 06/23/2022 11:48 PM CDT 3,700 UNITS 3,700 UNITS (rounded from 3,696 UNITS = 40 Units/kg ? 92.4 kg), Intravenous, Q6H PRN, Starting on Cathy 06/19/22 at 0558, Until Thu06/24/22 at 0622, For anti-Xa 0.1- 0.29 heparin 7,400 UNITS New Bag 06/23/2022 4:59 PM CDT 7,400 UNITS 7,400 UNITS (rounded from 7,392 UNITS = 80 Units/kg ? 92.4 kg), Intravenous, Q6H PRN, Starting on Cathy 06/19/22 at 0558, Until Thu06/24/22 at 0622, For anti-Xa < 0.1 Push 06/19/2022 6:31 AM CDT 7,400 UNITS HYDROmorphone PF (DILAUDID) 1 mg/mL injection Given 5:59 AM CDT 0.5 mg 0.5 mg 0.5 mg, IV Push, Q4H PRN, Starting on Thu06/16/22 at 0944, Until Thu06/26/22 at 1038, Severe Pain (Use First) Given 06/25/2022 7:47 PM CDT 0.5 mg Given 06/25/2022 3:29 PM CDT 0.5 mg HYDROmorphone PF (DILAUDID) 1 mg/mL injection 1 Given 06/15/2022 8:35 PM CDT 1 mg mg 1 mg, IV Push, ONE TIME, 1 dose, On Thu06/15/22 at 2020 HYDROmorphone PF (DILAUDID) 1 mg/mL injection Given 10:10 PM CDT 1 mg 1 mg 1 mg, IV Push, ONE TIME, 1 dose, On Thu06/15/22 at 2200 HYDROmorphone PF (DILAUDID) 1 mg/mL injection Given 12:08 AM CDT 1 mg 1 mg 1 mg, IV Push, ONE TIME, 1 dose, On Thu06/15/22 at 2355 hydrOXYzine (ATARAX;VISTARIL) tablet 25- 50 mg Given 06/27/2022 9:24 AM CDT 50 mg 25-50 mg, Oral, Q4H PRN, Starting on Thu06/16/22 at 0944, Until Thu06/27/22 at 2104, pain adjunct (give with opioid) Given 06/27/2022 5:01 AM CDT 50 mg Given 06/27/2022 12:51 AM CDT 25 mg insulin ASPART (NovoLOG) Given 06/27/2022 12:01 PM CDT 1 UNITS Abdominal Tissue FlexPen Insulin Order Mode: Fixed Dose, PRIOR to Breakfast Dose: 0, PRIOR to Noon meal dose: 0, PRIOR to Evening meal dose: 0, Glucose 130-150: 0, Glucose 151-200: 1 unit, Glucose 201-250: 2 units, Glucose 251-300: 3 units, Glucose 301-350: 4 units, Glucose 351-400: 5 units, Glucose 401-500: 6 units, Glucose GREATER THAN 501: 7 units and call provider, Subcutaneous, TID AC, First dose on Thu06/16/22 at 1130, Until Discontinued Given 06/27/2022 7:01 AM CDT 1 UNITS Abdom inal Tissue Given 06/26/2022 4:25 PM CDT 2 UNITS Abdom inal Tissue insulin ASPART (NovoLOG) FlexPen Glucose 201-250: 0 units, Glucose 251-300: 0 units, Gl ucose 301 - 350: 0 units, Glucose 351 - 400: 3 units, Glucose 401 - 450: 4 units, Glucose 451 - 500: 5 units, Glucose GREATER THAN 501: 6 units and call provider, S ubcutaneous, BEDTIME MAY REPEAT ONCE, First dose on Thu06/16/22 at 2100, Until Discontinued iodixanol (VISIPAQUE) 320 mg/mL injectio n Given 06/18/2022 12:02 PM CDT 20 mL Intra-arterial, RAD ONE TIME AUTO ACKNOWLEDGE, 1 dose, On Thu06/18/22 at 1205 iohexol (OMNIPAQUE) 350 mg/mL Given 06/15/2022 7:53 PM CDT 120 m L Right Arm injection IV Push, RAD ONE TIME AUTO ACKNOWLEDGE, 1 dose, On 06/15/22 at 1955 iohexol (OMNIPAQUE) 350 mg/mL Given 06/19/2022 11:06 AM CDT 125 mL Right Arm injection IV Push, RAD ONE TIME AUTO ACKNOWLEDGE, 1 dose, On Cathy 06/19/22 at 1110 iothalamate meglumine (CONRAY) Given 06/18/2022 9:10 AM CDT 50 m L Other (comment) 60% solution 50 mL 50 mL, Intracavity, RAD ONE TIME AUTO ACKNOWLEDGE, 1 dose, On Thu06/18/22 at 0940 ketorolac (TORADOL) 30 mg/mL injection 1 5 mg Given 06/16/2022 12:08 AM CDT 15 mg 15 mg, IV Push, ONE TIME, 1 dose, On 06/15/22 at 2355 LET topical gel based syringe 3 mL Given 06/15/2022 7:25 PM CDT 3 mL 3 mL, Topical, ONE TIME, 1 dose, On 06/15/22 at 1925 melatonin tablet 3 mg Given 06/25/2022 9:52 PM CDT 3 mg 3 mg, Oral, BEDTIME PRN, Starting on Thu06/23/22 at 2208, Until Thu06/27/22 at 2104, Sleep Given 06/23/2022 10:16 PM CDT 3 mg midazolam (PF) (VERSED) injection 1 mg Given 06/18/2022 7:06 PM CDT 1 mg 1 mg, IV Push, PACU PRN Q5MIN, 8 doses, Starting on Thu06/18/22 at 1823, Until Thu06/18/22 at 1951, Anxiety milk of magnesia 400 mg/5 mL suspension 30 mL Given 06/27/2022 9:22 AM CDT 30 mL 30 mL, Oral, DAILY, First dose on 06/21/22 at 0925, Until Discontinued Given 06/26/2022 8:28 AM CDT 30 mL Given 06/23/2022 8:17 AM CDT 30 mL NaCl 0.9% infusion New Bag 06/20/2022 12:07 PM CDT 100 mL/hr 100 mL/hr at 100 mL/hr, Intravenous, CONTINUOUS, Starting on Thu06/16/22 at 0130, Until Thu06/20/22 at 1309 Infusing 06/20/2022 8:00 AM CDT 100 mL/hr 100 mL/hr New Bag 06/20/2022 1:59 AM CDT 100 mL/hr 100 mL/hr naloxone (NARCAN) 0.4 mg/mL injection 0. 4 mg 0.4 mg, IV Push, ONE TIME PRN, 1 dose, S tarting on Thu06/16/22 at 0944, Until Thu06/27/22 at 2104, Patient difficult to arouse normal saline flush 0.9 % solution 10 mL Given 06/27/2022 9:30 AM CDT 10 mL 10 mL, IV Push, Q12H, First dose on Thu06/17/22 at 0800, Until Discontinued Given 06/26/2022 8:37 PM CDT 10 mL Given 06/26/2022 8:37 AM CDT 10 mL normal saline flush 0.9 % solution 10 mL Given 06/20/2022 7:47 AM CDT 10 mL 10 mL, IV Push, Q5 MIN PRN, Starting on Thu06/16/22 at 2345, Until Thu06/27/22 at 2104, IV Line Flush Given 06/17/2022 6:08 AM CDT 10 mL Given 06/17/2022 2:15 AM CDT 10 mL ondansetron (ZOFRAN) tablet 4 mg Given 06/24/2022 5:48 AM CDT 4 mg 4 mg, Oral, Q6H PRN, Starting on Thu06/16/22 at 0125, Until Thu06/27/22 at 2104, Nausea/Vomiting (Use First), Use if patient able to tolerate oral tablet Given 06/23/2022 8:51 PM CDT 4 mg oxyCODONE (ROXICODONE) tablet 5-10 mg Given 06/27/2022 9:24 AM CDT 10 mg 5-10 mg, Oral, Q4H PRN, Starting on Thu06/16/22 at 0125, Until Thu06/27/22 at 2104, Moderate Pain (Use First) Given 06/27/2022 5:01 AM CDT 10 mg Given 06/27/2022 12:51 AM CDT 10 mg polyethylene glycol 3350 (MIRALAX;GLYCOLAX) Given 06/21/2022 9:0 4 AM CDT 17 g packet 17 g 17 g, Oral, DAILY, First dose on Thu06/16/22 at 0800, Until Discontinued Given 06/20/2022 7:46 AM CDT 17 g Given 06/19/2022 7:59 AM CDT 17 g polyethylene glycol 3350 (MIRALAX;GLYCOLAX) Given 06/27/2022 9:2 2 AM CDT 17 g packet 17 g 17 g, Oral, BID, First dose (after last modification) on Thu06/21/22 at 2000, Until Discontinued Given 06/26/2022 8:27 AM CDT 17 g Given 06/25/2022 7:47 PM CDT 17 g sennosides (SENOKOT) tablet 17.2 mg Given 06/21/2022 9:04 AM CDT 17.2 mg 17.2 mg, Oral, BID, First dose (after last modification) on Thu06/20/22 at 2000, Until Discontinued Given 06/20/2022 8:18 PM CDT 17.2 mg sennosides (SENOKOT) tablet 8.6 mg Given 06/20/2022 7:47 AM CDT 8.6 mg 8.6 mg, Oral, BID, First dose on Thu06/16/22 at 0800, Until Discontinued Given 06/19/2022 8:07 PM CDT 8.6 mg Given 06/19/2022 7:58 AM CDT 8.6 mg sennosides-docusate sodium (STOOL Given 06/27/2022 9:24 AM CDT 1 tablet SOFTENER/LAXATIVE) 8.6-50 mg tablet 1 tablet 1 tablet, Oral, BID, First dose on 06/21/22 at 0925, Until Discontinued Given 06/26/2022 8:36 PM CDT 1 tablet Given 06/26/2022 8:27 AM CDT 1 tablet sodium chloride 0.9% bolus 1,000 New Bag 06/15/2022 9:30 PM CD T 1,000 mL 2000 mL/hr mL 1,000 mL, Intravenous, Administer over 30 Minutes, IV BOLUS, 1 dose, On 06/15/22 at 2045 sodium chloride tablet 2 g Given 06/27/2022 12:00 PM CDT 2 g 2 g, Oral, QID, First dose on Cathy 06/26/22 at 1330, Until Discontinued Given 06/27/2022 9:23 AM CDT 2 g Given 06/26/2022 8:36 PM CDT 2 g tamsulosin (FLOMAX) capsule 0.4 mg Given 06/27/2022 9:23 AM CDT 0.4 mg 0.4 mg, Oral, DAILY PC, First dose on Thu06/23/22 at 1400, Until Discontinued Given 06/26/2022 8:27 AM CDT 0.4 mg Given 06/25/2022 7:52 AM CDT 0.4 mg documented in this encounter Active and Recently Administered Medications Times are shown in CDT. Scheduled Medication Order 06/25/2022 06/26/2022 06/27/2022 acetaminophen tablet 975 mg 0752 (Given - Provider: Gina Whitman RN)1356 (Given - Provider: Vargas Whitman RN)1947 (Given - Provider: Elva Adamson RN) 0827 (Given - Provider: Vargas hollis RN)1351 (Given - Provider: Vargas Whitman RN)2036 (Given - Provider: Shanice Nieves RN) 0923 (Given - Provider: Vargas hollis RN)1442 (Given - Provider: Vargas Whitman RN) 975 mg, Oral, TID, First dose on 06/16/22 at 0800, Until Disc ontinued ceFAZolin (ANCEF) IVPB 2 g (COMPLETED) 1233 (New Bag - Provider: Leonides Wynn RN)1303 (Infusion completed - Provider: Vargas Whitman RN) 2 g, Indication (Select One): Prophylaxi s - Surgical, Intravenous, Q 8H, 1 dose, First dose on Thu06/25/22 at 1115 cyclobenzaprine (FLEXERIL) tablet 5 mg 0752 (Given - P rovider: Vargas Whitman RN)135 (Given - Provider: Vargas Whitman RN)1946 (Given - Provider: Elva Adamson RN) 08 (Given - Provider: Vargas hollis RN)135 (Given - Provider: Vargas Whitman RN)2036 (Given - Provider: Shanice Nieves RN) 09 (Given - Provider: Vargas hollis RN)144 (Given - Provider: Vargas Whitman RN) 5 mg, Oral, TID, First dose (after last modification) on Thu06/17/22 at 1400, Until Discontinued DC MED REC REVIEW BY PHARMACY(Linked Group 1) Discharge Date: 06/26/2022, Discharge Loc ation: Home, Anticipated Discharge Time: Now, Discharge Medication Orders: DC Med Orders Final, Does not apply, PROTOCOL, Starting on Thu06/26/22 at 1546, Until Thu06/27/22 at 2104 enoxaparin (LOVENOX) 30 mg/0.3 mL injection 30 mg (CAN CELED) 0000 (Given - Provider: Peace Waite RN)075 (Given - Provider: Vargas Whitman RN) 30 mg, Subcutaneous, Q12H, First dose on Thu06/24/22 at 2335, Until Discontinued enoxaparin (LOVENOX) 40 mg/0.4 mL injection 40 mg 1946 (Given - Provider: Elva Adamson RN) 08 (Given - Provider: Vargas hollis RN)2035 (Given - Provider: Shanice Nieves RN) 09 (Given - Provider: Vargas hollis RN) 40 mg, Subcutaneous, Q12H, First dose (a fter last modification) on Thu06/25/22 at 2000, Until Discontinued GABApentin (NEURONTIN) capsule 400 mg 0752 (Given - Pr ovider: Vargas Whitman RN)135 (Given - Provider: Vargas Whitman RN)1946 (Given - Provider: Elva Adamson RN) 08 (Given - Provider: Vargas hollis RN)1350 (Given - Provider: Vargas Whitman RN)2037 (Given - Provider: Shanice Nieves RN) 0924 (Given - Provider: Vargas hollis RN)1442 (Given - Provider: Vargas Whitman RN) 400 mg, Oral, TID, First dose (after las t modification) on 06/21/22 at 1400, Until Discontinued insulin ASPART (NovoLOG) FlexPen 0653 (Not Given (benigno ves Due time) - Provider: Peace Waite RN - Reason: Held per order)1226 (Dual Sign-Off - Provider: Leonides Wynn RN)1233 (Given - Provider: Leonides Wynn RN) 0718 (Not Given (removes Due time) - Provider: Vargas Whitman RN - Reason: Per protocol - Comment: BS 150)1125 (Dual Sign-Off - Provider: Tamera Shaw RN)1137 (Given - Provider: Vargas Whitman RN - Comment: BS 211) 0655 (Dual Sign-Off - Provider: Shanice Nieves RN)0701 (Given - Provider: Shanice Nieves RN)1158 (Dual Sign-Off - Provider: Vargas Whitman RN - Comment: BS 169)1201 (Given - Provider: Vargas Whitman RN - Comment: BS 169)1630 (Due) Insulin Order Mode: Fixed Dose, PRIOR to Breakfast Dose: 0, PRIOR to Noon meal dose: 0, PRIOR to Evening meal dose: 0, Glucose 130-150: 0, Glucose 151-200: 1 unit, Glucose 201-250: 2 units, Glucose 251- 1626 (Not Given (removes Due time) - Provider: Elva Adamson RN - Reason: Per protocol) 1622 (Dual Sign-Off - Provider: Tamera Shaw, RASHEL)1625 (Given - Provider: Tamera Shaw RN) 300: 3 units, Glucose 301-350: 4 units, Glucose 351-400: 5 units, Glucose 401- 500: 6 units, Glucose GREATER THAN 501: 7 units and call provider, Subcutaneous, TID AC, First dose on 06/16/22 at 1130, Until Discontinued insulin ASPART (NovoLOG) FlexPen 212 (Not Given (benigno ves Due time) - Provider: Elva Adamson RN - Reason: Per protocol) 2057 (Not Given (removes Due time) - Provider: Shanice Nieves RN - Reason: Per protocol) Glucose 201-250: 0 units, Glucose 251-30 0: 0 units, Glucose 301 - 350: 0 units, Glucose 351 - 400: 3 units, Glucose 401 - 450: 4 units, Glucose 451 - 500: 5 units, Glucose GREATER THAN 501: 6 units and call provider, Subcutaneous, BEDTIME MAY REPEAT ONCE, First dose on Thu06/16/22 at 2100, Until Discontinued milk of magnesia 400 mg/5 mL suspension 30 mL 0753 (No t Given (removes Due time) - Provider: Vargas Whitman RN - Reason: Patient refused) 827 (Given - Provider: Vargas Whitman RN) 921 (Given - Provider: Vargas hollis, RN) 30 mL, Oral, DAILY, First dose on Thu06/21/22 at 0925, Until Dis continued normal saline flush 0.9 % solution 10 mL 0757 (Given - Provider: Vargas Whitman RN)1946 (Given - Provider: Elva Adamson RN) 08 (Given - Provider: Vargas Whitman RN)2036 (Given - Provider: Shanice Nieves RN) 09 (Given - Provider: Vargas hollis RN) 10 mL, IV Push, Q12H, First dose on Thu06/17/22 at 0800, Until D iscontinued polyethylene glycol 3350 (MIRALAX;GLYCOLAX) packet 17 g 0753 (Not Given (removes Due time) - Provider: Vargas Whitman RN - Reason: Patient refused)1946 (Given - Provider: Elva Adamson, RASHEL) 08 (Given - Provider: Vargas Whitman RN)2036 (Not Given (removes Due time) - Provider: Shanice Nieves RN - Reason: Patient refused - Comment: BM x 3 today) 09 (Given - Provider: Vargas Whitman RN) 17 g, Oral, BID, First dose (after last modification) on 06/21/22 at 2000, Until Discontinued sennosides-docusate sodium (STOOL SOFTENER/LAXATIVE) 8 .6-50 mg tablet 1 tablet 0752 (Not Given (removes Due time) - Provider: Vargas Whitman RN - Reason: Patient refused)194 (Given - Provider: Elva Adamson RN) 0827 (Given - Provider: Vargas Whitman RN)2035 (Given - Provider: Shanice Nieves, RASHEL) 0924 (Given - Provider: Vargas hollis RN) 1 tablet, Oral, BID, First dose on 06/21/22 at 0925, Until Di scontinued sodium chloride tablet 2 g 1351 (Given - Provider: Vargas Whitman RN)1629 (Given - Provider: Tamera Shaw RN)2035 (Given - Provider: Shanice Nieves RN) 0923 (Given - Provider: Vargas hollis RN)1200 (Given - Provider: Vargas Whitman RN)1700 (Due) 2 g, Oral, QID, First dose on Cathy 06/26/22 at 1330, Until Discont inued tamsulosin (FLOMAX) capsule 0.4 mg 0752 (Given - Provi akiko: Vargas Whitman RN) 08 (Given - Provider: Vargas Whitman RN) 09 ( Given - Provider: Vargas Whitman RN) 0.4 mg, Oral, DAILY PC, First dose on 06/23/22 at 1400, Until Discontinued PRN Medication Order 06/25/2022 06/26/2022 06/27/2022 bisacodyl (DULCOLAX) suppository 10 mg 10 mg, Rectal, DAILY PRN, Starting on Mo n 06/16/22 at 0944, Until Thu06/27/22 at 2104, Constipation (Use Second) FLEET enema 118 mL 118 mL (1 enema), Rectal, ONE TIME PRN, 1 dose, Starting on 06/23/22 at 1335, Until Thu06/27/22 at 2104, Constipation (Use Second) HYDROmorphone PF (DILAUDID) 1 mg/mL injection 0.5 mg ( CANCELED) 0248 (Given - Provider: Peace Waite RN)0657 (Given - Provider: Peace Waite, RASHEL)1210 (Given - Provider: Vargas Whitman, RASHEL)1529 (Given - Provider: Elva Adamson, RASHEL)1947 (Given - Provider: Elva Adamson, RASHEL) 0559 (Given - Provider: Shanice Nieves RN) 0.5 mg, IV Push, Q4H PRN, Starting on Mo n 06/16/22 at 0944, Until Cathy 06/26/22 at 1038, Severe Pain (Use First) hydrOXYzine (ATARAX;VISTARIL) tablet 25-50 mg 0442 (Gi anish - Provider: Natalia Romero, RASHEL)0935 (Given - Provider: Vargas Whitman RN)1356 (Given - Provider: Vargas Whitman RN)2152 (Given - Provider: Elva Adamson RN) 0250 (Given - Provider: Shanice Nieves RN)0957 (Given - Provider: Vargas Whitman RN)1352 (Given - Provider: Vargas Whitman RN)1755 (Given - Provider: Tamera Shaw RN) 0051 (Given - Provider: Shanice monte RN)0501 (Given - Provider: Shanice Nieves RN)0924 (Given - Provider: Vargas Whitman RN) 25-50 mg, Oral, Q4H PRN, Starting on 06/16/22 at 0944, Until Thu06/27/22 at 2104, pain adjunct (give with opioid) melatonin tablet 3 mg 2151 (Given - Provider: Elva Adamson RN) 3 mg, Oral, BEDTIME PRN, Starting on Thu06/23/22 at 2208, Until Thu06/27/22 at 2104, Sleep naloxone (NARCAN) 0.4 mg/mL injection 0.4 mg 0.4 mg, IV Push, ONE TIME PRN, 1 dose, S tarting on 06/16/22 at 0944, Until Thu06/27/22 at 2104, Patient difficult to arouse normal saline flush 0.9 % solution 10 mL 10 mL, IV Push, Q5 MIN PRN, Starting on Thu06/16/22 at 2345, Until Thu06/27/22 at 2104, IV Line Flush ondansetron (ZOFRAN) tablet 4 mg 4 mg, Oral, Q6H PRN, Starting on 06/05 at 0125, Until Thu06/27/22 at 2104, Nausea/Vomiting (Use First), Use if patient able to tolerate oral tablet oxyCODONE (ROXICODONE) tablet 5-10 mg 0221 (Given - Pr ovider: Peace Waite RN)0524 (Given - Provider: Roger Fall, RASHEL)0936 (Given - Provider: Vargas Whitman, RASHEL)1355 (Given - Provider: Vargas Whitman, RASHEL)1747 (Given - Provider: Elva Adamson, RASHEL) 0249 (Given - Provider: Shanice Nieves RN)0957 (Given - Provider: Vargas Whitman, RASHEL)1352 (Given - Provider: Vargas Whitman, RASHEL)1755 (Given - Provider: Tamera Shaw RN) 0051 (Given - Provider: Shanice Nieves RN)0501 (Given - Provider: Shanice Nieves RN)0924 (Given - Provider: Vargas Whitman, RASHEL) 5-10 mg, Oral, Q4H PRN, Starting on Thu06/16/22 at 0125, Until Thu06/27/22 at 2104, Moderate Pain (Use First) 2152 (Given - Provider: Elva Adamson, RASHEL) Linked Groups Order Group 1: DC MED REC REVIEW BY PHARMACYJump to med Discharge Date: 06/26/2022
Discharge L ocation: Home
Anticipated Discharge Time: Now
Discharge Medication Orders: DC Med Orders Final
Does not apply, PROTOCOL, Starting on Cathy 06/26/22 at 1546, Until Thu06/27/22 at 2104 And Discharge Med Rec Final Review by Pharmacy (COMPLETED) Routine, Order to be placed by provider after medications have been entered for discharge and are ready for review by Pharmacist. This order can be placed multiple times if changes or additions have bee n made to medications for discharge. Tanner cramer the Preliminary DC Med Rec review when placing orders prior to the day of discharge. Choose Final DC Med Rec when all medication changes have been entered. If DC Med Rec needed now, please page the Pharmacist covering the patient to inform them.
Discharge Date: 06/26/2022
Discharge Location: Home
Anticipated Discharge Time: Now documented in this encounter
--- OUTSIDE RECORDS SUMMARY | 2022-07-17 10:14 | XMS_ITS | Encounter Summary ---
:[address] [facility] Address [address] [address] Phone Care Team Providers Name Role Phone Lore Au PT Unavailable Encounter Details Date Type Department Care Team Description 06/24/2022 Documentation Only [facility] Social Work Case Manager Social Work Case Manager, Services Services [address] [place] [address] Social History Tobacco Use Types Packs/Day Years [...] RADIOLOGY Roosevelt Brown MD [address] [place] [address] Scheduled 1, [place] [address] [place] [address] 07/22/2022 Office Visit ORTHOPEDICS Miri Matthew MD [address] [place], [place] [id number] Scheduled 1, [place] [address] [place] [address] 07/22/2022 Office Visit Interventional Radiology Provider, Hesham haq Scheduled 1, [place] [address] [place] [address] 07/25/2022 Appointment RADIOLOGY Patrice Hollins MD [address] [address] Scheduled 1, [place] [address] [place] [address] 07/25/2022 Office Visit NEUROSURGERY Briana Kaplan PA -C [address] [place] [phone] Scheduled 1, [place] [address] [place] [address] 07/25/2022 Appointment PHYSICAL MEDICINE AND REHAB Lore Aguilar, PT Scheduled [address] [place] [phone] (Wo rk) 08/05/2022 Appointment ORTHOPEDICS 1, [place] Scheduled [address] [place] [address] 08/05/2022 Appointment RADIOLOGY Roosevelt Brown MD [address] [place] [phone] Scheduled 1, [place] [address] [place] [address] 08/05/2022 Appointment RADIOLOGY Roosevelt Brown MD [address] [place] [address] Scheduled 1, [place] [address] [place] [address] 08/05/2022 Office Visit ORTHOPEDICS Roosevelt Brown MD [address] [place] [id number] Scheduled 1, [place] [address] [place] [address] documented as of this encounter Visit Diagnoses Not on filedocumented in this encounter Care Teams Faculty Administrator Relationship Specialty Start Date End Date Lore Au, PT Physical Therapist Physical Therapy 07/09/22 [address] [place] [address] documented as of this encounter
--- OUTSIDE RECORDS SUMMARY | 2022-07-17 10:15 | XMS_ITS | Encounter Summary ---
:1975 Author Organization [facility] Address [address] [place] [phone] Phone Care Team Providers Name Role Phone Lore Au PT Unavailable Encounter Details Date Type Department Care Team Description 06/20/2022 Orders Only Unspecified Departme nt Unknown, Provider [place] Social History Tobacco Use Types Packs/Day Years [...] RADIOLOGY Roosevelt Brown MD [address] [place] [address] Scheduled 1, [place] [address] [place] [address] 07/22/2022 Office Visit ORTHOPEDICS Miri Matthew MD [address] [place] [place], [place] [phone] Scheduled 1, [place] [address] [place] [address] 07/22/2022 Office Visit Interventional Radiology Provider, Hesham haq Scheduled 1, [place] [address] [place] [address] 07/25/2022 Appointment RADIOLOGY Patrice Hollins MD [address] [address] Scheduled 1, [place] [address] [place] [address] 07/25/2022 Office Visit NEUROSURGERY Briana Kaplan PA -C [address] [place] [address] Scheduled 1, [place] [address] [place] [address] 07/25/2022 Appointment PHYSICAL MEDICINE AND REHAB Lore Aguilar PT Scheduled [address], [place] [address] (Wo rk) 08/05/2022 Appointment ORTHOPEDICS 1, [place] Scheduled [address] [place] [address] 08/05/2022 Appointment RADIOLOGY Roosevelt Brown MD [address] [place] [address] Scheduled 1, [place] [address] [place] [address] 08/05/2022 Appointment RADIOLOGY Roosevelt Brown MD [address] [place] [address] Scheduled 1, [place] [address] [place] [address] 08/05/2022 Office Visit ORTHOPEDICS Roosevelt Brown MD [address] [place] [address] Scheduled 1, [place] [address] [place] [address] documented as of this encounter Procedures Procedure Name Priority Date/Time Associated Diagnosis Comme nts TELEMETRY STRIPS 06/20/2022 2:53 AM Resul ts for this CDT procedure are i n the results section. documented in this encounter Results TELEMETRY STRIPS (06/20/2022 2:53 AM CDT) Narrative 06/20/2022 2:53 AM CDT This result has an attachment that is no t available. Ordered by an unspecified provider. Provider Unknown ECHO documented in this encounter Visit Diagnoses Not on filedocumented in this encounter Care Teams Patient Admitting Clerk Relationship Specialty Start Date End Date Lore Au, PT Physical Therapist Physical Therapy 07/09/[address] [place] [phone] documented as of this encounter
--- OUTSIDE RECORDS SUMMARY | 2022-07-17 10:15 | XMS_ITS | Encounter Summary ---
:1975 Author Organization [facility] Address [address] [place] [address] Phone Care Team Providers Name Role Phone Unavailable Primary Care Provider Unavailable Reason for Visit Auth/Cert (Routine) Specialty Diagnoses / Procedures Referred By Contact Refer red To Contact SURGERY Diagnoses Fall, initial encounter Erasmo Gonzalez MD [address] [facility] [address] [place], [place] [address] 5 [address] [place] [address] Phone: Fax: Referral ID Status Reason Start Date Expiration Date Visits Requ ested Visits Authorized [id number] 1 1 Encounter Details Date Type Department Care Team Description 06/24/2022 Anesthesia Event OR P4 Vish Aguirre MD [address] [place], [place] [id number] [facility] [address] [place] [address] [address] [place], [place] [address] Anesthesia Record Procedure Summary Procedure Name Responsible Anesthesia Start Anesthesia Stop Time Anesthesiologist Time OPEN REDUCTION Vish Aguirre MD 06/24/22 1255 06/24 1637 INTERNAL FIXATION RIGHT SI JOINT (Right: Pelvis) Events Date Time Event Comment 06/24/2022 1223 Pre-op End 1255 An Start 1255 An Start Data 1256 IOPAE The intraoperati ve pre-anesthetic evaluation was completed with n o changes noted from the pre-operative anesthesia evalu ation. 1259 An Induction 1302 An Intubation 1408 Incision 1508 Quick Note Estimated EBL 12 5 mL 1615 An Emergence 1618 Extubation 1620 an stop data 1637 An Stop Name Total midazolam (VERSED) 1 mg/mL injection 2 mg fentaNYL (SUBLIMAZE) injection 350 mcg lidocaine 2% injection 100 mg propofol (DIPRIVAN) injection 200 mg rocuronium (ZEMURON) injection 180 mg ondansetron (ZOFRAN) injection 4 mg dexamethasone (DECADRON) 4 mg/mL injection 4 mg phenylephrine 100 mcg/mL syringe 200 mcg ceFAZolin (ANCEF) 2 g IVPB 2 g magnesium sulfate IV 3 g dexmedetomidine (PRECEDEX) 4 mcg/mL LOAD from infusion 82 mcg labetalol (NORMODYNE;TRANDATE) injection 5 mg dexmedetomidine (PRECEDEX) 100 mcg/mL injection 0.02 m g HYDROmorphone (DILAUDID) 1 mg/mL injection 2 mg sugammadex (BRIDION) injection 200 mg lactated ringers infusion 1,700 mL plasma-lyte A infusion 400 mL Agents Name N20 Air Blood No blood administrations on file. Lines, Drains, and Airways Type Details Placement Removal Incision: 06/18/22; 1759; Hip; 06/18/22 1759 by Upper, Right, Lateral Josse Lloyd RN Cast 06/24/22; 0700 (in place 06/24/22 0700 by upon writers arrival); Diamante Brown RN RUE Wound 06/24/22; 0700; 06/24/22 0700 by Pretibial; Proximal, Diamante Brown RN Right Incision: 06/24/22; 1411; N; 06/24/22 1411 by Buttocks; Right Minervini, Riana Incision: 06/24/22; 1600; Abdomen; 06/24/22 1600 by Rahul Santos RN Peripheral IV 06/17/22; 1830; Yes; 20 06/17/22 1830 by 2 4 by USER gauge, 2 1/2 in length; Chintan Gómez RN SER, EPIC Anterior, Left; Upper Arm; 1; 06/27/22; 210 Urinary Catheter 06/24/22; 1315; OR Prone 06/24/22 1315 by 06/25 1050 by >2hrs; 16; indwelling Riana Camacho Sinde Z, RN double lumen coude tip catheter; 10 mL; Placed in OR; Mikey Alfaro RN; 06/25/22; 1050 Drain 06/24/22; 1548; Abdomen; 06/24/22 1548 by Santos, 06/26/22 0815 by other (see comments) RASHEL Murray Cooper J, (HEMOVAC); Placed in OR; RN 06/26/22; 0815 (Arrived on shift and drain was removed) documented in this encounter Social History Tobacco Use Types Packs/Day Years [...] have Coronavirus/COVID-19? documented as of this encounter OR Notes Anesthesia Postprocedure Evaluation - Vish Aguirre MD - 06/24/2022 5:29 PM CDT Anesthesia Post Eval Patient: Bertram Moran Procedure(s) Performed: OPEN REDUCTION INTERNAL FIXATION RIGHT SI JOINT (Right: Pelvis) I've examined the patient and determined that he/she is medically stable and may be discharged from PACU. Anesthesia type: General () Patient location: PACU Patient status: Post-procedure vital signs reviewed and stable Level of Consciousness: Awake Post-op pain: Adequate Respiratory: Stable Cardiovascular: Stable PONV status: none Fluid status: Acceptable Betablockade: not indicated Anesthetic Complications: No immediate anesthesia complications Postoperative delirium requiring restraints. Improved with Haldol Last Vitals: Vitals Value Taken Time BP 123/73 06/24/22 1725 Temp 36.7 ??C (98.1 ??F) 06/24/22 1621 Pulse 104 06/24/22 1728 Resp 13 06/24/22 1728 SpO2 98 % 06/24/22 1728 Vitals shown include unvalidated device data. Anesthesia Procedure Notes - Cortez Caldwell SRNA - 06/24/2022 2:24 PM CDT Associated Order(s): Intubation/Airway AIRWAY/INTUBATION PROCEDURE direct laryngoscopy (Type: Surgical Anesthesia) Process/Method: sedated and paralyzed Indications for procedure: surgery Assessment: TMD >3 finger breadths and vocal cords open and clear Preoxygenation: mask Device Device used: [employer] Supporting device: Blade size: 2 The patient was intubated with a 7.5 mm standard endotracheal tube inflated to seal and secured at 21 cm to Teeth Grade: I Sellicks used Narrative 1 intubation attempt(s) confirmed in 0-30 sec using BVM ventilation between attempts Intubation Assessment: +ETCO2, EBBS and fog in ETT Ease of masking (I-easy to IV-difficult): I Ease of intubation (I-easy to IV-difficult): I Dentition Assessment: dentition unchanged and oral mucosa unchanged Performed by: Anesthesiologist: Vish Aguirre MD YARDING SUPERVISOR: Shanti Kruse APRN, CRNA Other: [id number] CORTZE CALDWELL [id number] Events: @[facility]([id number])@ Anesthesia Preprocedure Evaluation - Vish Aguirre MD - 06/24/2022 7:47 AM CDT Anesthesia Pre-Evaluation Summary Statement: This is a 46 y.o. year old patient scheduled for ORIF, PELVIS (Right: Pelvis). Anesthesia Evaluation Internal or external H&P reviewed, patient examined and changes and/or additions made as needed Additional ROS/Med Hx Findings: Pt is a 46yo M with pelvic fracture 2/2 fall from scaffolding, plan today for ORIF pelvis. Pulmonary - normal exam (-) tobacco use, wheezes Neurological ROS comment: T12 compression fracture Psychiatric Cardiovascular - normal exam Rhythm: regular Rate: normal Endo Musculoskeletal (+) fracture (R acetabular and sacral fracture), HEENT GI (+) obesity, ROS comment: Rectal hematoma Hematologic/Onc (+) anemia, /Renal/Geographic Information System Surveyor Airway Mallampati: II TM distance: >3 FB Neck ROM: full Mouth Opening: good Dental - normal exam Risk of dental damage discussed with patient/guardian who acknowledges understanding. OB Other Physical Exam Anesthesia Plan ASA 2 general (GETA) intravenous induction Maintenance: Balanced Post-op Care: routine analgesia A foreign languages professor was used. Anesthetic plan and risks discussed with patient. The use of blood products has been discussed with the patient, and consented by patient. Plan discussed with YARDING SUPERVISOR. Vitals: 06/24/22 0720 BP: 130/82 Pulse: 94 Resp: 18 Temp: 35.6 ??C (96 ??F) SpO2: documented in this encounter Miscellaneous Notes Anesthesia Handoff Note - Shanti Kruse APRN, CRNA - 06/24/2022 4:37 PM CDT Anesthesia Post Handoff Patient: Bertram Luisa Procedure(s) Performed: OPEN REDUCTION INTERNAL FIXATION RIGHT SI JOINT (Right: Pelvis) Patient was stable and nail beds/oral mucosa pink at time of handoff. Patient location: PACU Transportation: Patient was not placed on High Flow Oxygen. . Anesthesia Type: general Patient did not meet fast track criteria. Report to RN Last Vitals: Vitals: 06/24/22 1052 BP: 132/85 Pulse: 88 Resp: 18 Temp: 36.2 ??C (97.2 ??F) SpO2: 97% Anesthesia Extubation Note - Shanti Kruse APRN, CRNA - 06/24/2022 4:36 PM CDT Anesthesia Extubation Note At the time of extubation the patient was breathing spontaneously, follows commands, orally suctioned, awake, vital signs stable and within normal limits, headlift for 5 seconds, strong hand grasps for5 seconds, 4-4 on TOF with sustained tetany, briskly follows verbal commands and eyes open. Extubation details: Spontaneous respirations, High flow oxygen, Oral ETT removed, Oral airway, Pharyngeal reflexes present and Bag valve mask documented in this encounter Plan of Treatment Upcoming Encounters Date Type Specialty Care Team Description 07/22/2022 Appointment RADIOLOGY Roosevelt Brown MD [address] [place] [address] Scheduled 1, [facility] [address] [place] [phone] 07/22/2022 Office Visit ORTHOPEDICS Miri Matthew MD [address] [place] [phone] Scheduled 1, [facility] [address] [place] [phone] 07/22/2022 Office Visit Interventional Radiology Provider, Int Ra haq Scheduled 1, [facility] [address] [place] [phone] 07/25/2022 Appointment RADIOLOGY Patrice Hollins MD [address] [address] Scheduled 1, [facility] [address] [place] [phone] 07/25/2022 Office Visit NEUROSURGERY Briana Kaplan PA -C [address] [place] [address] Scheduled 1, [facility] [address] [place] [phone] 07/25/2022 Appointment PHYSICAL MEDICINE AND REHAB Lore Aguilar, PT Scheduled [address] [place], [place] [phone] (Wo rk) 08/05/2022 Appointment ORTHOPEDICS 1, [facility] Scheduled [address] [place] [address] 08/05/2022 Appointment RADIOLOGY Roosevelt Brown MD [address] [place] [phone] Scheduled 1, [facility] [address] [place] [address] 08/05/2022 Appointment RADIOLOGY Roosevelt Brown MD [address] [place] [phone] Scheduled 1, [facility] [address] [place] [address] 08/05/2022 Office Visit ORTHOPEDICS Roosevelt Brown MD [address] [place] [phone] Scheduled 1, [facility] [address] [place] [address] documented as of this encounter Procedures Procedure Name Priority Date/Time Associated Diagnosis Comme nts INTUBATION Routine 06/24/2022 2:24 PM Results f or this CDT procedure are i n the results section . documented in this encounter Results Intubation/Airway (06/24/2022 2:24 PM CDT) Narrative Cortez Caldwell SRNA - 06/24/2022 2:24 P M CDT Cortez Caldwell SRNA ? 06/24/2022 ??2:25 PM AIRWAY/INTUBATION PROCEDURE direct laryngoscopy ??(Type: Surgical An esthesia) Process/Method: sedated and paralyzed ?? Indications for procedure: surgery Assessment: TMD >3 finger breadths and v ocal cords open and clear Preoxygenation: mask Device Device used: [employer] Software Supporting device: ?? Blade size: 2 The [...] unchanged Performed by: Anesthesiologist: Vish Aguirre MD YARDING SUPERVISOR: Shanti Kruse APRN, THOR Other: ?? [id number] CORTEZ CALDWELL [id number] Events: @[facility]([id number])@ Vish Aguirre MD PROCEDURES documented in this encounter Visit Diagnoses Not on filedocumented in this encounter Administered Medications Inactive Administered Medications - up to 3 most recent administrations Medication Order MAR Action Action Date Dose Rate Site ceFAZolin (ANCEF) IVPB Given 06/24/2022 1:45 PM CDT 2 g Intravenous, INTRA-OP PRN ONCE MAY REPEAT, Starting on Thu06/24/22 at 1345, Until Thu06/24/22 at 1637 dexamethasone (DECADRON) 20 mg/ 5mL inje ction Given 06/24/2022 2:24 PM CDT 4 mg IV Push, INTRA-OP PRN ONCE MAY REPEAT, Starting on Thu06/24/22 at 1424, Until Thu06/24/22 at 1637 dexmedetomidine (PRECEDEX) 4 mcg/ml LOAD from Given 4:34 PM CDT 8 mcg infusion Intravenous, INTRA-OP PRN ONCE MAY REPEAT, Starting on Thu06/24/22 at 1420, Until Thu06/24/22 at 1637 Given 06/24/2022 4:30 PM CDT 8 mcg Given 06/24/2022 3:40 PM CDT 8 mcg dexmedetomidine (PRECEDEX) Infusing 06/24/2022 2:42 PM 0.25 mcg /kg/hr 0.231 mL/hr injection CDT IV Push, PERIOP CONTINUOUS, Starting on Thu06/24/22 at 1435, Until Thu06/24/22 at 1637 New Bag 06/24/2022 2:31 PM CDT 0.5 mcg/kg/hr 0.462 mL/hr fentaNYL (SUBLIMAZE) 100 mcg/2mL injecti on Given 06/24/2022 4:36 PM CDT 50 mcg Intravenous, INTRA-OP PRN ONCE MAY REPEAT, Starting on Thu06/24/22 at 1259, Until Thu06/24/22 at 1637 Given 06/24/2022 4:34 PM CDT 25 mcg Given 06/24/2022 4:30 PM CDT 25 mcg HYDROmorphone PF (DILAUDID) 1 mg/mL inje ction Given 06/24/2022 4:35 PM CDT 0.4 mg IV Push, INTRA-OP PRN ONCE MAY REPEAT, Starting on Thu06/24/22 at 1527, Until Thu06/24/22 at 1637 Given 06/24/2022 4:11 PM CDT 0.3 mg Given 06/24/2022 3:42 PM CDT 0.3 mg labetalol (NORMODYNE;TRANDATE) 5 mg/mL Given 06/24/2022 2:27 PM CDT 5 mg injection IV Push, INTRA-OP PRN ONCE MAY REPEAT, Starting on Thu06/24/22 at 1427, Until Thu06/24/22 at 1637 lactated ringers infusion New Bag 06/24/2022 2:38 PM CDT Intravenous, PERIOP CONTINUOUS, Starting on Thu06/24/22 at 1300, Until Thu06/24/22 at 1637 New Bag 06/24/2022 12:57 PM CDT lidocaine 2% injection Given 06/24/2022 12:59 PM CDT 100 mg Intravenous, INTRA-OP PRN ONCE MAY REPEAT, Starting on Thu06/24/22 at 1259, Until Thu06/24/22 at 1637 magnesium sulfate 50% IV Given 06/24/2022 2:08 PM CDT 3 g Intravenous, INTRA-OP PRN ONCE MAY REPEAT, Starting on Thu06/24/22 at 1408, Until Thu06/24/22 at 1637 midazolam (PF) (VERSED) injection Given 06/24/2022 12:55 PM CDT 2 mg IV Push, INTRA-OP PRN ONCE MAY REPEAT, Starting on Thu06/24/22 at 1255, Until Thu06/24/22 at 1637 ondansetron (ZOFRAN) 4 mg/2 mL injection Given 06/24/2022 3:38 PM CDT 4 mg IV Push, INTRA-OP PRN ONCE MAY REPEAT, Starting on Thu06/24/22 at 1538, Until Thu06/24/22 at 1637 phenylephrine (MANAS-SYNEPHRINE) 1 mg/10mL Given 06/24/2022 1:05 P M CDT 200 mcg injection IV Push, INTRA-OP PRN ONCE MAY REPEAT, Starting on Thu06/24/22 at 1305, Until Thu06/24/22 at 1637 plasma-lyte A infusion New Bag 06/24/2022 1:54 PM CDT Intravenous, PERIOP CONTINUOUS, Starting on Thu06/24/22 at 1425, Until Thu06/24/22 at 1637 propofol (DIPRIVAN) 10 mg/mL injection Given 06/24/2022 12:59 PM CDT 200 mg emulsion Intravenous, INTRA-OP PRN ONCE MAY REPEAT, Starting on Thu06/24/22 at 1259, Until Thu06/24/22 at 1637 rocuronium bromide (ZEMURON) 10 mg/mL Given 06/24/2022 3:00 PM C DT 30 mg injection IV Push, INTRA-OP PRN ONCE MAY REPEAT, Starting on Thu06/24/22 at 1300, Until Thu06/24/22 at 1637 Given 06/24/2022 2:40 PM CDT 20 mg Given 06/24/2022 2:00 PM CDT 30 mg sugammadex (BRIDION) 200 mg/2 mL injecti on Given 06/24/2022 4:16 PM CDT 200 mg IV Push, INTRA-OP PRN ONCE MAY REPEAT, Starting on Thu06/24/22 at 1616, Until Thu06/24/22 at 1637 documented in this encounter
--- OUTSIDE RECORDS SUMMARY | 2022-07-17 10:15 | XMS_ITS | Encounter Summary ---
:1975 Author Organization [facility] Address [address] [place] [address] Phone Care Team Providers Name Role Phone Unavailable Primary Care Provider Unavailable Reason for Visit Reason Comments Fall Auth/Cert (Routine) Specialty Diagnoses / Procedures Referred By Contact Refer red To Contact SURGERY Diagnoses Fall, initial encounter Erasmo Gonzalez MD [address] [facility] [address] [place], [place] [address] [address] [place] [address] Phone: Fax: Referral ID Status Reason Start Date Expiration Date Visits Requ ested Visits Authorized [id number] 1 1 Encounter Details Date Type Department Care Team Description 06/24/2022 Surgery OR P4 [facility] OPEN REDUCTION INTERNAL 701 Nia Ravi MD FIXATION RIGHT SI JOINT P4.[address] [place], [place] [address] [place], [place] [phone] [id number] Social History Tobacco Use Types Packs/Day Years [...] Sign Reading Time Taken Comments Blood Pressure 132/85 06/24/2022 10:52 AM CDT Pulse 88 06/24/2022 10:52 AM CDT Temperature 36.2 ??C (97.2 ??F) 06/24/2022 10:52 AM CDT Respiratory Rate 18 06/24/2022 10:52 AM CDT Oxygen Saturation 97% 06/24/2022 10:52 AM CDT Inhaled Oxygen Concentration - - [...] No focal deficits appreciated on gross examination Cook Helper Meat Needed: yes- Iranian [35] PLANNED DISCHARGE ORDERS: Suture/Paulette: Location right low back; Removal date: @ [...] address): ___ Patient Address: C/o Shawnee Bolivar [address] [place] [id number] Question Response Notes Effective date for equipment/supply 06/25/2022 Medical necessity for order (qualifying diagnosis) sacral fracture, right acetabular fracture, T12 compression fracture, right distal radius fracture Length of time equipment/supply needed 12 months Monthly quantity . Vendor Information [employer]; ph: [phone], fx: [phone] XR SPINE THORACOLUMBAR 2 VIEW Question Response [...] Yes Antitippers Yes Vendor Information [employer]; ph: [phone], fx: [phone] DME JUSTIFICATION OF NEED FOR EXTENDED TUB [...] PLEASE CALL the Patient Access Center at [phone] to schedule the following appointment(s) Question Response Notes Specify time frame 1 Month Reason for Visit? Evaluate need for continued IVC Filtration Provider Type? Any available Provider Clinic Location? [facility] Specialty: Interventional Radiology Schedule Appointment - [facility] Ortho Cl Order Notes PLEASE CALL the Patient Access Center at [phone] to schedule the following appointment(s) Question Response Notes Specify time frame 2 Weeks Reason for Visit? Post op follow up, hospitalization. S/p ORIF right SI joint Provider Type? Any available Provider Clinic Location? [facility] Specialty: Orthopedics Schedule Appointment in Neurosurgery- [facility] Clinic Order Notes Schedule Appointment in Neurosurgery Clinic - [facility] Neurosurgery Clinic Direct Line: [phone] [place] [address] Clinic Hours: 8 AM - 4:30 PM M-F Question Response Notes Specify time frame 6 Weeks Reason for Visit? Follow up T12 and lumbar fractures Provider Type? [facility] Clinic Location? [facility] Specialty: Neurosurgery Imaging? Yes UR XR prior [...] your doctor or [facility] the [facility] When should I be concerned? Order Notes [...] 4 PM): Call the Radiology department at [phone] After hours or on Holidays: Call the [facility] spray booth operator . Ask the spray booth operator to page the Interventional Radiologist economic development manager. IF: -- hives or new itching the [...] wet, you can dry it with a chair mechanic set to cool/warm; call the Orthopaedic Clinic at [phone] if the cast remains soft. -- Cover [...] wet, you can dry it with a chair mechanic set to cool/warm; call the Orthopaedic Clinic at [phone] if the cast remains soft. -- Cover [...] -- Read all labels for prescription and Pasx-aby-blvzhun medicines. Ask the pharmacist if your prescription [...] taking these medications acetaminophen 325 mg tablet Ashdown 3 tabletas (975 mg) por la boca [...] (5 mg) by mouth 3 times daily. Ashdown 1 tableta (5 mg) por la boca [...] (400 mg) by mouth 3 times daily. Ashdown 1 capsula (400 mg) por la boca 3 veces al porsche. hydrOXYzine pamoate 25 mg capsule Commonly known as: VISTARIL Take 1-2 capsules (25-50 mg) by mouth every 4 hours as needed (pain adjunct (give with opioid)).Ashdown 1-2 c??psulas (25-50 mg) por v??a oral cada 4 horas seg??n sea necesario (complemento para el dolor (administrar con opioide)). melatonin 3 mg tablet Take 1 tablet (3 mg) by mouth at bedtime as needed for Sleep. Ashdown 1 tableta (3 mg) por la boca a lahora de acostrase. oxyCODONE 5 mg tablet Commonly known as: ROXICODONE Ashdown 1 tableta (5 mg) por la boca cada 4 horas rock sea necesario para el dolor. (Take 1 tablet (5 mg) by mouth every 4 hours as needed for Pain.) polyethylene glycol 3350 17 gm/scoop powder Commonly known as: MIRALAX/GLUCOLAX Take 17 g by mouth twice daily.Take 1 capful to 17 gm cuate mixed with full glass of water twice every day as directed.Ashdown 17 g por v??a oral dos veces al d??a. Ashdown 1 tap??n hasta la minerva de 17 g mezclado con un vaso lleno de agua dos veces al d??a seg??n las indicaciones. * Xarelto 15 mg tablet Generic drug: rivaroxaban Take 1 tablet (15 mg) by mouth twice daily with meals for 21 days. Indications: Blood Clot in a DeepVein. Ashdown 1 tableta (15 mg) por v??a oral dos veces al d??a con las comidas jennifer 21 d??as. 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 Start taking on: June 29, 2022 * rivaroxaban 20 mg tablet Commonly known as: XARELTO Take 1 tablet (20 mg) by mouth daily with evening meal. Indications: Blood Clot in a Deep Vein.(Ashdown 1 tableta (20 mg) por v??a oral diariamente con la evonne. 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 Ashdown 1 tableta por la boca 2 veces al porsche. sodium chloride 1 gm Tabs Take 2 tablets (2 g) by mouth 4 times daily. TOME DOS TABLETAS ORALMENTE 4 VECES AL PORSCHE tamsulosin 0.4 mg Capsule Commonly known as: FLOMAX Take 1 capsule (0.4 mg) by mouth daily after meal.Take 30 minutes after same meal each day. Do NOT crush or chew.Ashdown 1 c??psula (0,4 mg) por v??a oral todos los d??as despu??s de ethan comida. Ashdown 30 minutos despu??s de la misma comida [...] Your Medications These medications were sent to [facility] Discharge Pharmacy - [place] [address] Hours: 27/04 acetaminophen 325 mg tablet bisacodyl [...] me are documented. Patrice Hollins M.D., F.A.C.S. [facility] Department of Surgery documented in this [...] Self Cares with a TLSO A TLSO (Jxvsrui-Kkbwq-Xrbqvc-Orthosis) is a brace designed to immobilize your [...] determine what you need) Extended tub bench Force Variation Equipment Tender Long Handled Sponge Raised Toilet Seat with arms Remember : - No weight on your right arm/hand, no pulling and no pushing with right hand. - No weight on right leg - Pivot transfer ONLY on left leg - No walking - Slow down, think before moving Discharge Instr - Speech Language PathologyTheodora Serrano OTR/L - 06/27/2022 8:50 AM CDT {TALENT BUYER Discharge Instructions:[id number]} AttachmentsThe following attachments cannot be sent through Care Everywhere.Cast Care (Iranian)Forearm and Wrist Fractures ED (Iranian)Forearm Fracture Discharge Instructions (Iranian)Radius Fracture (Iranian)Radius Fracture Discharge Instructions (Iranian)Pelvic Fracture Discharge Instructions (Iranian) Pelvic Fracture (Iranian)Fractures (Iranian)General Trauma Discharge Instructions (Iranian)Type 2 Diabetes Discharge Instructions (Iranian)documented in this encounter Medications at Time of Discharge Medication Sig Dispensed Refills Start Date End Date acetaminophen 325 mg Take 3 tablets (975 120 tablet 0 2021 oral tablet mg) by mouth 3 times daily. hydrOXYzine pamoate Take 1-2 capsules 120 capsule 0 06/26/20 (VISTARIL) 25 mg oral (25-50 mg) by mouth capsule every 4 hours as needed (pain adjunct (give with opioid)).Ashdown 1-2 c??psulas (25-50 mg) por v??a oral [...] oral by mouth 3 times TABS daily. Ashdown 1 tableta (5 mg) por la boca 3 veces al porsche. polyethylene glycol Take 17 g by mouth 510 g 0 06/26/20 3350 twice daily.Take 1 (MIRALAX/GLUCOLAX) 17 capful to 17 gm gm/scoop oral powder cuate mixed with full glass of water twice every day as directed.Ashdown 17 g por v??a oral dos veces al d??a. Ashdown 1 tap??n hasta la minerva de 17 g mezclado con un vaso lleno de agua dos veces al d??a seg??n las indicaciones. sennosides-docusate Take 1 tablet by 40 each 0 06/26/2022 sodium (STOOL mouth twice daily. SOFTENER/LAXATIVE) Ashdown 1 tableta por 8.6-50 mg oral tablet la boca 2 veces al porsche. GABApentin (NEURONTIN) Take 1 capsule (400 120 capsule 0 400 mg oral capsule mg) by mouth 3 times daily. Ashdown 1 capsula (400 mg) por la boca 3 veces al porsche. tamsulosin (FLOMAX) Take 1 capsule (0.4 10 capsule 0 022 0.4 mg oral capsule mg) by mouth daily after meal.Take 30 minutes after same meal each day. Do NOT crush or chew.Ashdown 1 c??psula (0,4 mg) por v??a oral todos los d??as despu??s de ethan comida. Ashdown 30 minutos despu??s de la misma comida todos los d??as. No triture ni mastique. melatonin 3 mg oral Take 1 tablet (3 mg) 20 tablet 0 2021 tablet by mouth at bedtime as needed for Sleep. Ashdown 1 tableta (3 mg) por la boca [...] Thrombosis Indications: Blood Clot in a Deep Vein.(Ashdown 1 tableta (20 mg) por v??a oral diariamente con la lens edger. 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 rivaroxaban (XARELTO) Take 1 tablet (15 42 tablet 0 022 07/20/2022 15 mg oral mg) by mouth twice tabletIndications: daily with meals for Deep Vein Thrombosis 21 days. Indications: Blood Clot in a Deep Vein. Ashdown 1 tableta (15 mg) por v??a oral [...] Inject 0.4 mL (40 3 each 0 0906/29/2022 40 mg/0.4 mL Injection mg) subcutaneously SOSY [...] w/ Precautions?: Yes (with some occasional reminders) Cook Helper Meat Used: No, certified bilingual staff SUBJECTIVE: Cooperative [...] assisting with supervision and 1-2 tips from copywriter Upper Body Dressing Techniques & Equipment: 1 [...] mgmt/ADL: 25 minutes Functional activity: 15 minutes CLAUDIO Cordero Pager: [facility] OT Department Neal Phillips, SUPERVISOR BEATER ROOM - 06/27/2022 9:42 AM CDT Problem: Decreased Transfer Skills Goal: Patient will transfer supine to/from sit Description: Patient will transfer supine to/from sit with (6) Modified [place] in the TLSO w/othe use of his [...] (Numeric): 4 (improved) Participation Significantly Limited?: No O:Cook Helper Meat Used: Yes, [facility] dry wall nailer Mental Status Mental Status: Alert;Cooperative;Follows 3 step [...] own equipment. Neal Phillips PTA 06/27/2022 Pager: [employer] PT Dept Joce Villareal MD - 06/27/2022 [...] - ok for L LE pivot transfer) Cook Helper Meat Used: No, certified bilingual staff SUBJECTIVE: Cooperative [...] assisting with supervision and 1-2 tips from copywriter Lower Body Dressing: Maximal assist (25% patient [...] Functional Activity 15 minutes JACKELIN Cordero/Kira Pager: [employer] OT Department Patrice Hollnis MD - 06/26/2022 10:39 AM CDT Trauma [...] vital signs normal. Euvolemic on exam. Asymptomatic. Qmmyxidq2U LR post procedurally 06/24. Has not received [...] Hollins MD, 06/30/2022 9:13 AM Neal Phillips, SUPERVISOR BEATER ROOM - 06/26/2022 9:03 AM CDT Problem: Decreased Transfer Skills Goal: Patient will transfer supine to/from sit Description: Patient will transfer supine to/from sit with (6) Modified [place] in the TLSO w/othe use of his [...] (Numeric): 4 (improved) Participation Significantly Limited?: No O:Cook Helper Meat Used: Yes, [facility] dry wall nailer Mental Status Mental Status: Alert;Cooperative;Follows 3 step [...] set-up and management. Increase tolerance for sitting. SUPERVISOR BEATER ROOM Appropriate: Yes Neal Phillips, SKYLER 06/26/2022 Pager: [facility] PT Dept Chintan Valadez MD - 06/26/2022 [...] (assisted with transferring pt back to bed) O:Cook Helper Meat Used: Yes, [facility] dry wall nailer Mental Status Mental Status: Alert;Cooperative;Follows 3 step [...] by PT. She also assisted pt with jdmfxj-dh-ehh transfer. Pt required just standby assist for [...] with assisting with wheelchair set-up and management. SUPERVISOR BEATER ROOM Appropriate: Yes Alize Stevens, PT 06/25/2022 Pager: [facility] PT Dept Problem: Decreased Transfer Skills Goal: Patient will transfer supine to/from sit Description: Patient will transfer supine to/from sit with (6) Modified [place] in the TLSO w/othe use of his [...] be able to roll with (6) Modified [place] using log roll technique w/o the use [...] - ok for L LE pivot transfer) Cook Helper Meat Used: No, certified bilingual staff SUBJECTIVE: Cooperative [...] assisting with supervision and 1-2 tips from copywriter Lower Body Dressing: Maximal assist (25% patient [...] minutes JACKELIN Cordero/Kira Pager: [facility] OT Department A TT Patrice Hollins MD - 06/25/2022 8:18 AM [...] Results Component Value Date/Time WBC 11.29 (H) 06/24/2022542 WBC 10.55 (H) 06/22/2022524 WBC 7.23 06/20/2022556 HGB 12.0 (L) 06/24/2022542 HGB 10.1 (L) 06/22/2022524 HGB 9.0 (L) 06/20/2022556 PLT 527 (H) 06/24/2022542 PLT 378 06/22/2022 0525 PLT 266 06/20/2022 [...] 13.9 (H) 06/22/2022 1053 APTT 21.4 (L) 06/15/20221919 INR 1.2 (H) 06/22/2022 1053 Current Facility-Administered [...] about 30 minutes prior to arrival) O: Cook Helper Meat Used: No, certified bilingual staff Name or Reference Number (phone): [id number] Mental Status Mental Status: Alert;Cooperative;Follows 1 step [...] OR and requesting PT assist pt to [facility] Clinical Coordinator: Notified recommending 16 WC with ELR, removeable armrests, anti-tippers and cushion Family: and daughter present, educated regarding WC size considerations and equipment recs for 16 WC with B ELR and removable armrests Fall Risk Assessment: None of the above Positioning: Pt transferred to [facility] in prep for surgery at end [...] have family re-demo WC part management . SUPERVISOR BEATER ROOM Appropriate: Yes Charlene Lindo, PT 06/24/2022 Pager: [facility] PT Dept Problem: Decreased Transfer Skills Goal: Patient will roll Description: Patient will be able to roll with (6) Modified [place] using log roll technique w/o the use of his RUE while maintaining both spinal and WB restrictions in order to demonstrate improved function and D/C by 06/28. Outcome: In progress Goal: Patient will transfer supine to/from sit Description: Patient will transfer supine to/from sit with (6) Modified [place] in the TLSO w/othe use of his [...] - ok for L LE pivot transfer) Cook Helper Meat Used: No, certified bilingual staff SUBJECTIVE: Cooperative Christy paniagua, maria ao germain silva I am doing better, much less [...] assisting with supervision and 1-2 tips from copywriter Upper Body Dressing Techniques & Equipment: TLSO;Family [...] Functional activity: 15 minutes CLAUDIO Cordero Pager: [facility] OT Department Patrice Hollins MD - 06/24/2022 7:12 AM CDT Trauma SURGERY PROGRESS NOTE - PGY 1 Blue Surgery Kesha Luisa : 1975 Sex: male ASSESSMENT/PLAN: [...] is only present while pushing against something. [place] nauseous upon waking, dry heaved. Able to [...] me are documented. Patrice Hollins M.D., F.A.C.S. [facility] Department of Surgery Korin Garcia MD [...] for OR today. Hopefully this afternoon or it consulting director - Plan to convert right short arm [...] 06/23/2022 12:50 PM CDT Problem: Loss of [place] With ADLs, Risk for Goal: Patient-specific goals [...] push/pull/place weight in RUE- ok through elbow) Cook Helper Meat Used: Yes, agency or phone dry wall nailer ([facility] phone/video dry wall nailer) SUBJECTIVE: I'm getting really warm. Can I [...] assisting with supervision and 1-2 tips from copywriter Upper Body Dressing Techniques & Equipment: TLSO;Family [...] care/Home mgmt/ADL: 30 minutes JACKELIN Fernandez/Kira Pager: [facility] OT Department Reshma Hackett OTR/Kira, 06/23/2022 4:09 [...] Discussed with G2 and Staff. Alize Herrera, MS, 06/23/2022 11:46 AM Patient was seen [...] revisions by me aredocumented. Patrice Hollins M.D., [place].S. [facility] Department of Surgery Linda Lei MD [...] Mullen MD Staff Physician Orthopaedic Service Narciso Steele CO - 06/20/2022 10:26 AM CDT [facility] Patient was seen to check fit of TLSO. Patient reports TLSO is fitting well with no reported discomfort. He and his were instructed on proper wear and care. Please call with any questions or concerns. Aman Pichardo SIDE SEAM ENVELOPE MACHINE OPERATOR Danette O&P [phone] Linda Au MD - 06/20/2022 5:36 AM [...] Per nursing report, patient was bladder scanned [id number] retained, so he underwent straight catheterization. He [...] with G5 and Staff. Alize Herrera, MS, 06/20/2022 5:37 AM RESIDENT WITH STUDENT: Elias [...] medical stability. S: MERCEDESEON, AF, VSS, RA. Resting comfortably this am. No numbness/tingling. Received a suppository. O: Vitals: 06/19/22 1506 06/19/22200506/19/22 2332 06/20/22 0314 BP: 134/72 136/73 145/77 137/65 Cuff Location: Right Arm Right Arm Right Arm Right Arm Pulse: 86 83 87 Resp: 16 16 Temp: 36.3 ??C (97.4 ??F) 36.4 ??C [...] 4.92 06/19/2022 0515 WBC 7.80 06/18/2022 0450 WBC 7.32 06/17/2022 0507 HGB 9.4 (L) [...] NOTE - MS3/PGY 1 Blue Surgery Kesha CoombsdeannaSusanmoe : 1975 Sex: male ASSESSMENT/PLAN: 46 y.o.male [...] 0507 HGB 13.0 (L) 06/15/20221919 HGB 13.7 06/15/20221919 PLT 191 06/18/2022 0450 PLT 181 06/17/2022 [...] informed of Patient Valuables and Belongings Policy (#910851): Due to patient condition, [facility] staff will inventory and secure patient valuables [...] by me are documented. Patrice Hollins M.D., [place]. [facility] Department of Surgery Alpesh Live MD [...] 7.32 06/17/2022 0507 WBC 14.21 (H) 06/15/2022 192 HGB 9.6 (L) 06/18/2022449 HGB 9.8 (L) 06/17/2022 0507 HGB 13.0 (L) 06/15/2022 192 HGB 13.7 06/15/2022 192 PLT 191 06/18/2022 0450 PLT 181 06/17/2022 [...] None Transportation Used for Discharge: family will steel pickler Safety Concerns: None Behavioral Health Concerns: None Primary Insurance: N/A Secondary Insurance: N/A PLAN Plan/Interventions Discharge Plan: Home Risks for Readmission: None SUMMARY Patient would like to DC home where could help. He is uninsured. He has received 3 doses of Covid vaccine freelance digital project manager will continue to follow until DC [...] venous lower extremity bilaterally: pending Sharon Alize, , 06/17/2022 10:49 AM I Linda Au MD, [...] by me aredocumented. Patrice Hollins M.D., F.A.C.S. [facility] Department of Surgery Resident: Linda Au [...] this hospital admission S: HORVATH, VSS, RA. Resting comfortably this am. O: Vitals: 06/16/22 1505 06/16/22 1954 06/16/22 2303 06/17/22 0400 BP: 122/74 136/68 114/62 148/68 Cuff Location: Left Arm Right Arm Right Arm Right Arm Pulse: 98 98 104 77 Resp: 18 18 18 14 Temp: 37.3 ??C (99.1 [...] return to fit when able. Aman Mainorurow SIDE SEAM ENVELOPE MACHINE OPERATOR [facility]lgeorgette O&P [phone] Narciso Steele CO - 06/16/2022 12:08 PM [...] today for fitting and delivery. Aman Thurow SIDE SEAM ENVELOPE MACHINE OPERATOR Winkley O&P [phone] Edna Ibrahim MDIV - 06/16/2022 9:36 AM CDT SPIRITUAL CARE VISIT SUMMARY Kesha Hill : 1975 Sex: male LOS: 0 days Reason for visit: Referral Assessment: Pt/family uncertain/anxious/frustrated Intervention: Engage theological concerns;Compassionate support;Facilitate communication;Lead/support spiritual rituals Outcome: Situation assessed;Gratitude expressed;Pt/family report increased sense of peace/spiritual well-being;Stress observed as lessened;Ritual provided Notes: Provided supportive presence for Iranian speaking, [facility] pt (with use of account information clerk). Pt was in pain, and consented to healing touch being provided. He indicated that this practice assisted with his pain. Pt spoke about his recent move to [place], and how he likes it there, and likes living with his Gloria there. Pt was able to speak with the nurse about his pain, and communicate that to her. He welcomed prayer, which this provider offered in Iranian. Edna has completed levels one and two of Healing Touch and level one of Reiki. This is an energy based, gentle (limited) touch healing modality, and this patient or patient's family consented to this practice. Plan: Spiritual Care Team is available to support patient and family as needed via pager [phone]. Edna Ibrahim MDIV, 06/16/2022 9:36 AM Pager: [phone] Oanh Moore MD - 06/16/2022 6:02 AM [...] elbow flex/ext. 5/5 wrist flex/ext. 5/5 hand plant utility person. LUE: 5/5 shoulder abduction. 5/5 elbow flex/ext. 5/5 wrist flex/ext. 5/5 hand plant utility person. Lower Extremities: RLE: 0/5 hip flexion. 0/5 [...] OR during this hospital admission S: HORVATH, OKS, RA. Doing reasonably well. No new numbness/tingling [...] Narvaez MD - 06/16/2022 12:00 [place] [address] [facility]#: [id number] PATIENT: KESHA HILL : 1975 DATE DICTATED: 06/16/2022 SURGERY STAFF DAILY PROGRESS NOTE DATE OF SERVICE: 06/16/2022 I saw and evaluated the patient. I discussed management with residents, STERILE SUPPLY TECHNICIAN, and PAs on the Neurosurgery team and [...] MD Staff Physician Neurosurgery Service Received in [employer] Practitioner: 06/16/2022 18:59:09 M: /[id number] TB/MODL Patrice Hollins MD - 06/15/2022 7:18 PM CDT Trauma Staff I was notified via the trauma pager at: [phone] I evaluated/examined this patient at: aRRIVAL The patient arrived at: 06/15/2022 7:15 PM I was pre-notified: Yes Switchboard. Trauma Level: Tier 2 Staff Summary (full note will be with the resident H&P): Fell from [facility], 30 ft. Will plan head/c-spine/chest/abd/pelvis CT scan. [...] file Social History Narrative Patient lives in [place], [place]. He is single and employed. Family [...] diagnostic studies, procedures and surgery) Admit to [place] [facility] Ortho Consult paged out at STAT. Neurosurgery consult paged out at 1945 Cardiac Monitoring Frequent neuro checks, CMS checks Incentive Spirometer Bedrest with C, T, & L spine precautions C-spine exam and possible clearance once final reads posted NPO until final reads on radiography Consult TALENT BUYER and keep strict NPO if TALENT BUYER consult not indicated at this time PT/OT [...] me are documented. Patrice Hollins M.D., F.A.C.S. [facility] Department of Surgery documented in this [...] Hill at 1215 Patient transported back to [facility] via Bed. Accompanied by Tech and RN [...] John Leon MD Orthopaedic Surgery, PGY3 Pager: [phone] documented in this encounter Consult Notes Sultana Nuñez, FernandoD - 06/26/2022 4:10 PM CDTAssociated Order(s): DISCHARGE MED REC FINAL REVIEW BY PHARMACY PHARMACY DISCHARGE NOTE Kesha Hill : 1975 Sex: male Pharmacy service was consulted for review of patient's discharge medications. Planned discharge medications are: Medication List Medications Indications acetaminophen 325 mg tablet Ashdown 3 tabletas (975 mg) por la boca [...] (5 mg) by mouth 3 times daily. Ashdown 1 tableta (5 mg) por la boca [...] (400 mg) by mouth 3 times daily. Ashdown 1 capsula (400 mg) por la boca 3 veces al porsche. glipiZIDE XL 10 mg extended release tablet Generic drug: glipiZIDE XL Take 1 tablet (10 mg) by mouth daily. Indications: Type 2 Diabetes Indications: Type 2 Diabetes hydrOXYzine pamoate 25 mg capsule Commonly known as: VISTARIL Take 1-2 capsules (25-50 mg) by mouth every 4 hours as needed (pain adjunct (give with opioid)).Ashdown 1-2 c??psulas (25-50 mg) por v??a oral cada 4 horas seg??n sea necesario (complemento para el dolor (administrar con opioide)). melatonin 3 mg tablet Take 1 tablet (3 mg) by mouth at bedtime as needed for Sleep. Ashdown 1 tableta (3 mg) por la boca a lahora de acostrase. metFORMIN 1000 mg tablet Commonly known as: GLUCOPHAGE Take 1 tablet (1,000 mg) by mouth twice daily with meals. Indications: Type 2 Diabetes Indications: Type 2 Diabetes oxyCODONE 5 mg tablet Commonly known as: ROXICODONE Ashdown 1 o 2 tabletas por la boca cada 4 horas rock sea necesario para el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 (Source) Anatomical Collection Method Collection Time Re ceived Time Location / / Volume Laterality Blood 06/26/2022 11:17 AM CDT Kingston Castañeda MD LABORATORY Performing Organization Address [facility] Phon e Number [facility] - POINT OF CARE [address] [place] [address] (ABNORMAL) POC GLUCOSE (06/26/2022 7:01 AM CDT) athologist Signature POC Glucose 150 (H) 70 - 100 [facility] MAIN mg/dL [place] - POINT OF CARE Specimen (Source) Anatomical Collection Method Collection Time Re ceived Time Location / / Volume Laterality Blood 06/26/2022 7:01 AM CDT Kingston Castañeda MD LABORATORY Performing Organization Address [facility] Phon e Number [facility] - POINT OF CARE [address] [place] [address] (ABNORMAL) PANEL LIPID (06/26/2022 6:41 AM CDT) athologist Signature Cholesterol 128 <=200 mg/dL [facility] Comment: Interpretive Data <200 Desirable 200-239 Borderline high >=240 High Triglyceride 178 (H) <=150 mg/dL [facility] Comment: Interpretive Data <150 Normal 150-199 Borderline high 200-499 High >=500 Very high HDL 31 (L) >=40 mg/dL [facility] Comment: Interpretive Data Normal > 40 Male > 50 Female Calc LDL 61 <=100 mg/dL [facility] Comment: Interpretive Data <100 Desirable 100-129 Above desirable 130-159 Borderline high 160-189 High >=190 Very high Non-HDL Cholesterol Calculated 97 <=130 mg/dL [facility] Comment: Interpretive Data <130 Desirable 130-159 Above desirable 160-189 Borderline high 190-219 High >=220 Very high Specimen Anatomical Collection Method Collection Time Receive d Time (Source) Location / / Volume Laterality Blood 06/26/2022 6:41 AM 2 CDT 12:54 PM CDT Narrative [facility] - 06/26/2022 1:12 PM CDT Fasting: No Patrice Hollins MD LABORATORY Performing Organization Address City/[facility]/ZIP Code Phon e Number [facility] [place] [address] (ABNORMAL) PANEL RENAL (06/26/2022 6:41 AM CDT) athologist Signature Sodium 131 (L) 135 - 148 [facility] mEq/L Potassium 4.1 3.5 - 5.3 [facility] mEq/L Chloride 93 92 - 108 [facility] mEq/L CO2 27 22 - 30 [facility] mEq/L AnGap 11 8 - 16 [facility] mEq/L Glucose 151 (H) 70 - 100 [facility] mg/dL BUN 15 6 - 20 [facility] mg/dL Creatinine 0.69 (L) 0.70 - 1.25 [facility] mg/dL Calcium 8.9 8.6 - 10.0 [facility] mg/dL Albumin 3.5 (L) 3.8 - 5.1 [facility] g/dL Phosphorus 4.3 2.5 - 4.5 [facility] mg/dL eGFR, High >120 >=60 [facility] ml/min/1.73 m2 Comment: Calculated using CKD-EPI equati on eGFR, Low 115 >=60 ml/min/1.73m2 [facility] Comment: Calculated using CKD-EPI equati on Specimen Anatomical Collection Method Collection Time Receive d Time (Source) Location / / Volume Laterality Blood 06/26/2022 6:41 AM 2 7:47 CDT AM CDT Patrice Hollins MD LABORATORY Performing Organization Address City/[facility]/ZIP Code Phon e Number [facility] [place] [address] (ABNORMAL) CBC WITH PLATELET (06/26/2022 6:41 AM CDT) athologist [facility] WBC 12.28 (H) 4.00 - [facility] 10.00 k/cmm RBC 3.46 (L) 4.60 - 6.00 [facility] m/cmm Hgb 9.7 (L) 13.1 - 17.5 [facility] g/dL Hematocrit 29.3 (L) 40.0 - 51.0 [facility] % MCV 84.7 80.0 - [facility] 100.0 fL MCH 28.0 25.0 - 32.0 [facility] pg MCHC 33.1 31.0 - 36.0 [facility] g/dL RDW 13.3 11.5 - 14.5 [facility] % Plt 516 (H) 150 - 400 [facility] k/cmm MPV 10.9 6.5 - 12.5 [facility] fL Specimen Anatomical Collection Method Collection Time Receive d Time (Source) Location / / Volume Laterality Blood 06/26/2022 6:41 AM 7:47 CDT AM CDT Patrice Hollins MD LABORATORY Performing Organization Address City/[facility] Phon e Number [facility] [place] [address] (ABNORMAL) POC GLUCOSE (06/25/2022 8:45 PM CDT) athologist [facility] POC Glucose 159 (H) 70 - 100 [facility] MAIN mg/dL CAMPUS - POINT OF CARE Specimen (Source) Anatomical Collection Method Collection Time Re ceived Time Location / / Volume Laterality Blood 06/25/2022 8:45 PM CDT Kingston Castañeda MD LABORATORY Performing Organization Address City/State/ZIP [facility] Phon e Number [facility] MAIN CAMPUS - POINT OF CARE [address] [place] [address] OSMOLALITY,URINE-RANDOM ASIA (06/25/2022 5:08 PM CDT) athologist [facility] Urine Osmo [phone] [facility] mOsm/Kg Specimen Anatomical Collection Method Collection Time Receive d Time (Source) Location / / Volume Laterality Urine 06/25/2022 5:08 PM 2 5:39 CDT PM CDT Patrice Hollins MD LABORATORY Performing Organization Address City/[facility]/ZIP Code Phon e Number [facility] [place] [address] (ABNORMAL) SODIUM,URINE-RANDOM ASIA (06/25/2022 5:08 PM CDT) athologist Signature Sodium Urine 30 (L) 40 - 200 [facility] mEq/L Specimen Anatomical Collection Method Collection Time Receive d Time (Source) Location / / Volume Laterality Urine 06/25/2022 5:08 PM 5:39 CDT PM CDT Patrice Hollins MD LABORATORY Performing Organization Address [facility]/ZIP Code Phon e Number [facility] [place] [address] (ABNORMAL) POC GLUCOSE (06/25/2022 4:09 PM CDT) athologist Signature POC Glucose 150 (H) 70 - 100 [facility] MAIN mg/dL CAMPUS - POINT OF CARE Specimen (Source) Anatomical Collection Method Collection Time Re ceived Time Location / / Volume Laterality Blood 06/25/2022 4:09 PM CDT Kingston Castañeda MD LABORATORY Performing Organization Address [facility]/ZIP Code Phon e Number [facility] MAIN [place] - POINT OF CARE [address] [place] [phone] PELVIS NO IV CON+ 3D RECON [...] POC Glucose 188 (H) 70 - 100 [facility] MAIN mg/dL CAMPUS - POINT OF CARE Specimen (Source) Anatomical Collection Method Collection Time Re ceived Time Location / / Volume Laterality Blood 06/25/2022 11:26 AM CDT Kingston Castañeda MD LABORATORY Performing Organization Address City/[facility]/ZIP Code Phon e Number [facility] MAIN CAMPUS - POINT OF CARE [address] [place] [address] (ABNORMAL) POC GLUCOSE (06/25/2022 5:59 AM CDT) athologist Signature POC Glucose 126 (H) 70 - 100 [facility] MAIN mg/dL CAMPUS - POINT OF CARE Specimen (Source) Anatomical Collection Method Collection Time Re ceived Time Location / / Volume Laterality Blood 06/25/2022 5:59 AM CDT Kingston Castañeda MD LABORATORY Performing Organization Address City/[facility]/ZIP Code Phon e Number [facility] - POINT OF CARE [address] [place] [address] OSMOLALITY SERUM (06/25/2022 5:51 AM CDT) athologist Signature Serum Osmo [phone] [facility] mOsm/Kg Specimen Anatomical Collection Method Collection Time Receive d Time (Source) Location / / Volume Laterality Blood 06/25/2022 5:51 AM 2 4:44 CDT PM CDT Patrice Hollins MD LABORATORY Performing Organization Address City/[facility] Code Phon e Number [facility] [place] [address] (ABNORMAL) PANEL RENAL (06/25/2022 5:51 AM CDT) athologist Signature CO2 28 22 - 30 [facility] mEq/L Glucose 144 (H) 70 - 100 [facility] mg/dL BUN 19 6 - 20 [facility] mg/dL Creatinine 0.78 0.70 - 1.25 [facility] mg/dL Calcium 9.1 8.6 - 10.0 [facility] mg/dL Albumin 3.4 (L) 3.8 - 5.1 [facility] g/dL Phosphorus 4.1 2.5 - 4.5 [facility] mg/dL eGFR, High >120 >=60 [facility] ml/min/1.73 m2 Comment: Calculated using CKD-EPI equati on Sodium 131 (L) 135 - 148 mEq/L [facility] Potassium 4.5 3.5 - 5.3 mEq/L [facility] Chloride 94 92 - 108 mEq/L [facility] eGFR, Low 109 >=60 ml/min/1.73m2 [facility] Comment: Calculated using CKD-EPI equati on AnGap 9 8 - 16 mEq/L [facility] Specimen Anatomical Collection Method Collection Time Receive d Time (Source) Location / / Volume Laterality Blood 06/25/2022 5:51 AM 2 6:23 CDT AM CDT Patrice Hollins MD LABORATORY Performing Organization Address City/[facility]/ZIP Code Phon e Number [facility] [place] [address] (ABNORMAL) CBC WITH PLATELET (06/25/2022 5:51 AM CDT) athologist Signature WBC 12.52 (H) 4.00 - [facility] 10.00 k/cmm RBC 3.62 (L) 4.60 - 6.00 [facility] m/cmm Hgb 10.2 (L) 13.1 - 17.5 [facility] g/dL Hematocrit 30.6 (L) 40.0 - 51.0 [facility] % MCV 84.5 80.0 - [facility] 100.0 fL MCH 28.2 25.0 - 32.0 [facility] pg MCHC 33.3 31.0 - 36.0 [facility] g/dL RDW 13.3 11.5 - 14.5 [facility] % Plt 522 (H) 150 - 400 [facility] k/cmm MPV 9.7 6.5 - 12.5 [facility] fL Specimen Anatomical Collection Method Collection Time Receive d Time (Source) Location / / Volume Laterality Blood 06/25/2022 5:51 AM 6:23 CDT AM CDT Patrice Hollins MD LABORATORY Performing Organization Address City/State/ZIP Code Phon e Number [facility] [place] [address] (ABNORMAL) POC GLUCOSE (06/24/2022 9:13 PM CDT) athologist [facility] POC Glucose 211 (H) 70 - 100 [facility] MAIN mg/dL CAMPUS - POINT OF CARE Specimen (Source) Anatomical Collection Method Collection Time Re ceived Time Location / / Volume Laterality Blood 06/24/2022 9:13 PM CDT Kingston Castañeda MD LABORATORY Performing Organization Address City/State/ZIP Code Phon e Number [facility] MAIN CAMPUS - POINT OF CARE [address] [place] [phone] (ABNORMAL) POC GLUCOSE (06/24/2022 6:41 PM CDT) athologist Signature POC Glucose 248 (H) 70 - 100 [facility] MAIN mg/dL CAMPUS - POINT OF CARE Specimen (Source) Anatomical Collection Method Collection Time Re ceived Time Location / / Volume Laterality Blood 06/24/2022 6:41 PM CDT Kingston Castañeda MD LABORATORY Performing Organization Address City/[facility]/ZIP Code Phon e Number [facility] - POINT OF CARE [address] [place] [address] (ABNORMAL) POC GLUCOSE (06/24/2022 4:39 PM CDT) P athologist Signature POC Glucose 214 (H) 70 - 100 [facility] mg/dL CAMPUS - POINT OF CARE Specimen (Source) Anatomical Collection Method Collection Time Re ceived Time Location / / Volume Laterality Blood 06/24/2022 4:39 PM CDT Kingston Castañeda MD LABORATORY Performing Organization Address City/[facility] Code Phon e Number [facility] - POINT OF CARE [address] [place] [address] XR C ARM OVER 3 HRS (06/24/2022 [...] POC Glucose 141 (H) 70 - 100 [facility] MAIN mg/dL CAMPUS - POINT OF CARE Specimen (Source) Anatomical Collection Method Collection Time Re ceived Time Location / / Volume Laterality Blood 06/24/2022 1:10 PM CDT Kingston Castañeda MD LABORATORY Performing Organization Address City/State/ZIP Code Phon e Number [facility] MAIN CAMPUS - POINT OF CARE [address] [place] [address] (ABNORMAL) POC GLUCOSE (06/24/2022 10:53 AM CDT) athologist Signature POC Glucose 146 (H) 70 - 100 [facility] mg/dL [place] - POINT OF CARE Specimen (Source) Anatomical Collection Method Collection Time Re ceived Time Location / / Volume Laterality Blood 06/24/2022 10:53 AM CDT Kingston Castañeda MD LABORATORY Performing Organization Address City/[facility]/ZIP Code Phon e Number [facility] - POINT OF CARE [address] [place] [address] RED BLOOD CELLS LEUKOCYTE REDUCED ADULT (BLOOD ADMIN) (06/24/2022 8:39 AM CDT) athologist [facility] RBC Ready Product [facility] Ready Specimen Anatomical Collection Method Collection Time Receive d Time (Source) Location / / Volume Laterality Other 06/24/2022 8:39 AM 2 8:39 CDT AM CDT Narrative [facility] - 06/24/2022 8:45 AM CDT 2 units economic development manager to OR to have available in case 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 bleeding Is a signed informed consent on file: Ludwig s-on file Reason for Transfusion:->Anticipated Blo od Loss for Surgery/Procedure Does patient require irradiated product: No 2 Units Miri Matthew MD BLOOD BANK ORDERABLES (BLOOD ADMIN) Performing Organization Address [facility]/ZIP Code Phon e Number [facility] [place] [address] (ABNORMAL) ANTI XA HEPARIN UNFRACTIONATED (06/24/2022 7:04 AM CDT) athologist [facility] Anti XA Hep U 0.12 (L) 0.30 - [facility] 0.70 IU/mL Specimen Anatomical Collection Method Collection Time Receive d Time (Source) Location / / Volume Laterality Blood 06/24/2022 7:04 AM 2 7:35 CDT AM CDT Patrice Hollins MD LABORATORY Performing Organization Address City/[facility]/ZIP Code Phon e Number [facility] [place] [address] (ABNORMAL) POC GLUCOSE (06/24/2022 6:42 AM CDT) athologist Signature POC Glucose 155 (H) 70 - 100 [facility] MAIN mg/dL CAMPUS - POINT OF CARE Specimen (Source) Anatomical Collection Method Collection Time Re ceived Time Location / / Volume Laterality Blood 06/24/2022 6:42 AM CDT Kingston Castañeda MD LABORATORY Performing Organization Address City/[facility]/ZIP [facility] Phon e Number [facility] MAIN [place] - POINT OF CARE [address] [place] [phone] MAGNESIUM (06/24/2022 5:43 AM CDT) athologist Signature Magnesium 2.0 1.6 - 2.6 [facility] mg/dL Specimen Anatomical Collection Method Collection Time Receive d Time (Source) Location / / Volume Laterality Blood 06/24/2022 5:43 AM 6:18 CDT AM CDT Patrice Hollins MD LABORATORY Performing Organization Address City/[facility] Phon e Number [facility] [place] [address] (ABNORMAL) PANEL RENAL (06/24/2022 5:43 AM CDT) athologist [facility] Sodium 132 (L) 135 - 148 [facility] mEq/L Potassium 4.2 3.5 - 5.3 [facility] mEq/L Chloride 96 92 - 108 [facility] mEq/L CO2 23 22 - 30 [facility] mEq/L Glucose 160 (H) 70 - 100 [facility] mg/dL BUN 19 6 - 20 [facility] mg/dL Creatinine 0.62 (L) 0.70 - 1.25 [facility] mg/dL Calcium 9.5 8.6 - 10.0 [facility] mg/dL Albumin 3.7 (L) 3.8 - 5.1 [facility] g/dL Phosphorus 4.3 2.5 - 4.5 [facility] mg/dL eGFR, High >120 >=60 [facility] ml/min/1.73 m2 Comment: Calculated using CKD-EPI equati on AnGap 13 8 - 16 mEq/L [facility] eGFR, Low 120 >=60 ml/min/1.73m2 [facility] Comment: Calculated using CKD-EPI equati on Specimen Anatomical Collection Method Collection Time Receive d Time (Source) Location / / Volume Laterality Blood 06/24/2022 5:43 AM 2 6:18 CDT AM CDT Patrice Hollins MD LABORATORY Performing Organization Address [facility] Code Phon e Number [facility] [place] [address] (ABNORMAL) CBC WITH PLATELET (06/24/2022 5:43 AM CDT) P athologist Signature WBC 11.29 (H) 4.00 - [facility] 10.00 k/cmm RBC 4.30 (L) 4.60 - 6.00 [facility] m/cmm Hgb 12.0 (L) 13.1 - 17.5 [facility] g/dL Hematocrit 36.0 (L) 40.0 - 51.0 [facility] % MCV 83.7 80.0 - [facility] 100.0 fL MCH 27.9 25.0 - 32.0 [facility] pg MCHC 33.3 31.0 - 36.0 [facility] g/dL RDW 13.3 11.5 - 14.5 [facility] % Plt 527 (H) 150 - 400 [facility] k/cmm MPV 9.8 6.5 - 12.5 [facility] fL Specimen Anatomical Collection Method Collection Time Receive d Time (Source) Location / / Volume Laterality Blood 06/24/2022 5:43 AM 2 6:18 CDT AM CDT Patrice Hollins MD LABORATORY Performing Organization Address City/[facility] Code Phon e Number [facility] [place] [address] (ABNORMAL) ANTI XA HEPARIN UNFRACTIONATED (06/23/2022 10:42 PM CDT) P athologist Signature Anti XA Hep U 0.29 (L) 0.30 - [facility] 0.70 IU/mL Specimen Anatomical Collection Method Collection Time Receive d Time (Source) Location / / Volume Laterality Blood 06/23/2022 10:42 06/23/2022 PM CDT 11:02 PM CDT Patrice Hollins MD LABORATORY Performing Organization Address City/State/ZIP Code Phon e Number [facility] [place] [address] (ABNORMAL) POC GLUCOSE (06/23/2022 8:46 PM CDT) athologist Signature POC Glucose 136 (H) 70 - 100 [facility] MAIN mg/dL CAMPUS - POINT OF CARE Specimen (Source) Anatomical Collection Method Collection Time Re ceived Time Location / / Volume Laterality Blood 06/23/2022 8:46 PM CDT Kingston Castañeda MD LABORATORY Performing Organization Address City/State/ZIP Code Phon e Number [facility] MAIN CAMPUS - POINT OF CARE [address] [place] [phone] (ABNORMAL) POC GLUCOSE (06/23/2022 3:57 PM CDT) athologist Signature POC Glucose 200 (H) 70 - 100 [facility] mg/dL CAMP[facility] - POINT OF CARE Specimen (Source) Anatomical Collection Method Collection Time Re ceived Time Location / / Volume Laterality Blood 06/23/2022 3:57 PM CDT Kingston Castañeda MD LABORATORY Performing Organization Address City/[facility]/ZIP Code Phon e Number [facility] MAIN CAMPUS - POINT OF CARE [address] [place] [phone] (ABNORMAL) ANTI XA HEPARIN UNFRACTIONATED (06/23/2022 3:40 PM CDT) Analysis Performed At Patho logist Time Signature Anti XA Hep U <0.04 (L) 0.30 - [facility] 0.70 IU/mL Specimen Anatomical Collection Method Collection Time Receive d Time (Source) Location / / Volume Laterality Blood 06/23/2022 3:40 PM 3:47 CDT PM CDT Patrice Hollins MD LABORATORY Performing Organization Address City/State/ZIP Code Phon e Number [facility] [place] [address] (ABNORMAL) POC GLUCOSE (06/23/2022 11:08 AM CDT) athologist Signature POC Glucose 125 (H) 70 - 100 [facility] mg/dL CAMPUS - POINT OF CARE Specimen (Source) Anatomical Collection Method Collection Time Re ceived Time Location / / Volume Laterality Blood 06/23/2022 11:08 AM CDT Kingston Castañeda MD LABORATORY Performing Organization Address City/[facility]/ZIP Code Phon e Number [facility] - POINT OF CARE [address] [place] [phone] (ABNORMAL) ANTI XA HEPARIN UNFRACTIONATED (06/23/2022 6:25 AM CDT) Analysis Performed At Patho logist Time Signature Anti XA Hep U <0.04 (L) 0.30 - [facility] 0.70 IU/mL Specimen Anatomical Collection Method Collection Time Receive d Time (Source) Location / / Volume Laterality Blood 06/23/2022 6:25 AM 6:34 CDT AM CDT Patrice Hollins MD LABORATORY Performing Organization Address City/[facility]/ZIP Code Phon e Number [facility] [place] [address] [place] [address] (ABNORMAL) POC GLUCOSE (06/23/2022 6:10 AM CDT) athologist Signature POC Glucose 131 (H) 70 - 100 [facility] mg/dL CAMPUS - POINT OF CARE Specimen (Source) Anatomical Collection Method Collection Time Re ceived Time Location / / Volume Laterality Blood 06/23/2022 6:10 AM CDT Kingston Castañeda MD LABORATORY Performing Organization Address City/[facility]/ZIP Code Phon e Number [facility] - POINT OF CARE [address] [place] [phone] (ABNORMAL) POC GLUCOSE (06/22/2022 9:19 PM CDT) P athologist Signature POC Glucose 195 (H) 70 - 100 [facility] mg/dL CAMPUS - POINT OF CARE Specimen (Source) Anatomical Collection Method Collection Time Re ceived Time Location / / Volume Laterality Blood 06/22/2022 9:19 PM CDT Kingston Castañeda MD LABORATORY Performing Organization Address City/[facility]/ZIP Code Phon e Number [facility] - POINT OF CARE [address] [place] [phone] (ABNORMAL) POC GLUCOSE (06/22/2022 4:03 PM CDT) P athologist Signature POC Glucose 142 (H) 70 - 100 [facility] mg/dL [place] - POINT OF CARE Specimen (Source) Anatomical Collection Method Collection Time Re ceived Time Location / / Volume Laterality Blood 06/22/2022 4:03 PM CDT Kingston Castañeda MD LABORATORY Performing Organization Address City/[facility]/ZIP Code Phon e Number [facility] - POINT OF CARE [address] [place] [address] (ABNORMAL) POC GLUCOSE (06/22/2022 11:07 AM CDT) athologist Signature POC Glucose 115 (H) 70 - 100 [facility] mg/dL [place] - POINT OF CARE Specimen (Source) Anatomical Collection Method Collection Time Re ceived Time Location / / Volume Laterality Blood 06/22/2022 11:07 AM CDT Kingston Castañeda MD LABORATORY Performing Organization Address City/[facility]/ZIP Code Phon e Number [facility] - POINT OF CARE [address] [place] [phone] (ABNORMAL) PROTHROMBIN (PT) & INR (06/22/2022 10:53 AM CDT) athologist Signature PT 13.9 (H) 9.0 - 12.5 [facility] sec INR 1.2 (H) 0.8 - 1.1 [facility] Specimen Anatomical Collection Method Collection Time Receive d Time (Source) Location / / Volume Laterality Blood 06/22/2022 10:53 06/22/2022 AM CDT 11:01 AM CDT Patrice Hollins MD LABORATORY Performing Organization Address City/[facility]/ZIP Code Phon e Number [facility] [place] [address] ANTIBODY SCREEN (06/22/2022 10:53 AM CDT) athologist Signature Sabrina Screen Negative [facility] Specimen Anatomical Collection Method Collection Time Receive d Time (Source) Location / / Volume Laterality Blood 06/22/2022 10:53 06/22/2022 AM CDT 11:02 AM CDT Patrice Hollins MD LAB TRANSFUSION SERVICES Performing Organization Address City/[facility]/ZIP Code Phon e Number [facility] [place] [address] BLOOD TYPING-ABO/RH (06/22/2022 10:53 AM CDT) athologist Signature ABORHG A POS [facility] Specimen Anatomical Collection Method Collection Time Receive d Time (Source) Location / / Volume Laterality Blood 06/22/2022 10:53 06/22/2022 AM CDT 11:02 AM CDT Patrice Hollins MD LAB TRANSFUSION SERVICES Performing Organization Address City/[facility]/ZIP Code Phon e Number [facility] [place] [address] COVID-19 SURVEILLANCE (06/22/2022 7:10 AM CDT) [facility] gist Method Time Signature COVID-19 Not Detected Not Detected [facility] Specimen (Source) Anatomical Collection Method Collection Time Re ceived Time Location / / Volume Laterality Nasopharyngeal Swab 06/22/2022 7:10 06/22 AM CDT 11:15 AM CDT Narrative [facility] - 06/22/2022 12:26 PM CDT Preferred specimen is Nasopharyngeal swab Is the patient a healthcare employee: No Is the patient a [employer] ([facility]) Employee : No Patrice Hollins MD LABORATORY Performing Organization Address City/[facility]/ZIP Code Phon e Number [facility] [place] [address] (ABNORMAL) POC GLUCOSE (06/22/2022 6:11 AM CDT) athologist [facility] POC Glucose 160 (H) 70 - 100 [facility] mg/dL CAMPUS - POINT OF CARE Specimen (Source) Anatomical Collection Method Collection Time Re ceived Time Location / / Volume Laterality Blood 06/22/2022 6:11 AM CDT Kingston Castañeda MD LABORATORY Performing Organization Address City/State/ZIP Code Phon e Number [facility] MAIN CAMPUS - POINT OF CARE [address] [place] [phone] ANTI XA HEPARIN UNFRACTIONATED (06/22/2022 5:25 AM CDT) athologist Signature Anti XA Hep U 0.53 0.30 - 0.70 [facility] IU/mL Specimen Anatomical Collection Method Collection Time Receive d Time (Source) Location / / Volume Laterality Blood 06/22/2022 5:25 AM 2 9:54 CDT AM CDT Patrice Hollins MD LABORATORY Performing Organization Address City/[facility]/ZIP Code Phon e Number [facility] [place] [address] (ABNORMAL) CBC WITH PLATELET (06/22/2022 5:25 AM CDT) P athologist Signature WBC 10.55 (H) 4.00 - [facility] 10.00 k/cmm RBC 3.58 (L) 4.60 - 6.00 [facility] m/cmm Hgb 10.1 (L) 13.1 - 17.5 [facility] g/dL Hematocrit 30.2 (L) 40.0 - 51.0 [facility] % MCV 84.4 80.0 - [facility] 100.0 fL MCH 28.2 25.0 - 32.0 [facility] pg MCHC 33.4 31.0 - 36.0 [facility] g/dL RDW 13.3 11.5 - 14.5 [facility] % Plt 378 150 - 400 [facility] k/cmm MPV 9.7 6.5 - 12.5 [facility] fL Specimen Anatomical Collection Method Collection Time Receive d Time (Source) Location / / Volume Laterality Blood 06/22/2022 5:25 AM 2 5:39 CDT AM CDT Patrice Hollins MD LABORATORY Performing Organization Address [facility]/ZIP Code Phon e Number [facility] [place] [address] ANTI XA ASSAY LMW HEPARIN (06/22/2022 5:25 AM CDT) P athologist Signature Anti XA LMW 0.63 IU/mL [facility] Comment: Anti Xa Assay LMW Heparin Therapeutic Ra nges: 0.4-1.1 IU/mL for twice daily 1.0-2.0 IU/mL for once daily Specimen Anatomical Collection Method Collection Time Receive d Time (Source) Location / / Volume Laterality Blood 06/22/2022 5:25 AM 2 5:39 CDT AM CDT Patrice Hollins MD LABORATORY Performing Organization Address City/State/ZIP Code Phon e Number [facility] [place] [address] [place] [address] (ABNORMAL) POC GLUCOSE (06/21/2022 9:06 PM CDT) athologist Signature POC Glucose 158 (H) 70 - 100 [facility] mg/dL CAMPUS - POINT OF CARE Specimen (Source) Anatomical Collection Method Collection Time Re ceived Time Location / / Volume Laterality Blood 06/21/2022 9:06 PM CDT Kingston Castañeda MD LABORATORY Performing Organization Address City/[facility] Phon e Number [facility] MAIN CAMPUS - POINT OF CARE [address] [place] [address] (ABNORMAL) POC GLUCOSE (06/21/2022 4:13 PM CDT) athologist Signature POC Glucose 145 (H) 70 - 100 [facility] mg/dL CAMPUS - POINT OF CARE Specimen (Source) Anatomical Collection Method Collection Time Re ceived Time Location / / Volume Laterality Blood 06/21/2022 4:13 PM CDT Kingston Castañeda MD LABORATORY Performing Organization Address City/[facility] Phon e Number [facility] MAIN CAMPUS - POINT OF CARE [address] [place] [address] (ABNORMAL) POC GLUCOSE (06/21/2022 11:53 AM CDT) athologist Signature POC Glucose 154 (H) 70 - 100 [facility] mg/dL CAMPUS - POINT OF CARE Specimen (Source) Anatomical Collection Method Collection Time Re ceived Time Location / / Volume Laterality Blood 06/21/2022 11:53 AM CDT Kingston Castañeda MD LABORATORY Performing Organization Address City/[facility] Phon e Number [facility] - POINT OF CARE [address] [place] [address] ANTI XA HEPARIN UNFRACTIONATED (06/21/2022 6:19 AM CDT) athologist Signature Anti XA Hep U 0.30 0.30 - 0.70 [facility] IU/mL Specimen Anatomical Collection Method Collection Time Receive d Time (Source) Location / / Volume Laterality Blood 06/21/2022 6:19 AM 6:57 CDT AM CDT Patrice Hollins MD LABORATORY Performing Organization Address City/[facility] Code Phon e Number [facility] [place] [address] [place] [address] (ABNORMAL) POC GLUCOSE (06/21/2022 6:17 AM CDT) athologist Signature POC Glucose 141 (H) 70 - 100 [facility] mg/dL CAMPUS - POINT OF CARE Specimen (Source) Anatomical Collection Method Collection Time Re ceived Time Location / / Volume Laterality Blood 06/21/2022 6:17 AM CDT Kingston Castañeda MD LABORATORY Performing Organization Address City/[facility] Phon e Number [facility] - POINT OF CARE [address] [place] [phone] (ABNORMAL) POC GLUCOSE (06/20/2022 8:51 PM CDT) athologist Signature POC Glucose 153 (H) 70 - 100 [facility] mg/dL CAMPUS - POINT OF CARE Specimen (Source) Anatomical Collection Method Collection Time Re ceived Time Location / / Volume Laterality Blood 06/20/2022 8:51 PM CDT Kingston Castañeda MD LABORATORY Performing Organization Address City/[facility] Phon e Number [facility] - POINT OF CARE [address] [place] [address] (ABNORMAL) POC GLUCOSE (06/20/2022 4:10 PM CDT) athologist Signature POC Glucose 133 (H) 70 - 100 [facility] mg/dL CAMPUS - POINT OF CARE Specimen (Source) Anatomical Collection Method Collection Time Re ceived Time Location / / Volume Laterality Blood 06/20/2022 4:10 PM CDT Kingston Castañeda MD LABORATORY Performing Organization Address City/[facility] Phon e Number [facility] - POINT OF CARE [address] [place] [address] XR ANKLE RIGHT 3 V AP/OBL/LAT* (06/20/2022 [...] No fracture. Reading Radiologist: Mario Orr Patrice Hollnis MD X-RAY ANTI XA HEPARIN UNFRACTIONATED (06/20/2022 12:14 PM CDT) athologist Signature Anti XA Hep U 0.34 0.30 - 0.70 [facility] IU/mL Specimen Anatomical Collection Method Collection Time Receive d Time (Source) Location / / Volume Laterality Blood 06/20/2022 12:14 06/20/2022 PM CDT 12:42 PM CDT Patrice Hollins MD LABORATORY Performing Organization Address City/State/ZIP Code Phon e Number [facility] [place] [address] [place] [address] (ABNORMAL) POC GLUCOSE (06/20/2022 12:06 PM CDT) athologist Signature POC Glucose 143 (H) 70 - 100 [facility] mg/dL CAMPUS - POINT OF CARE Specimen (Source) Anatomical Collection Method Collection Time Re ceived Time Location / / Volume Laterality Blood 06/20/2022 12:06 PM CDT Kingston Castañeda MD LABORATORY Performing Organization Address City/State/ZIP Code Phon e Number [facility] MAIN CAMPUS - POINT OF CARE [address] [place] [address] (ABNORMAL) POC GLUCOSE (06/20/2022 6:19 AM CDT) athologist Signature POC Glucose 126 (H) 70 - 100 [facility] mg/dL C[facility] - POINT OF CARE Specimen (Source) Anatomical Collection Method Collection Time Re ceived Time Location / / Volume Laterality Blood 06/20/2022 6:19 AM CDT Kingston Castañeda MD LABORATORY Performing Organization Address City/State/ZIP Code Phon e Number [facility] [place] - POINT OF CARE [address] [place] [address] ANTI XA HEPARIN UNFRACTIONATED (06/20/2022 5:57 AM CDT) athologist [facility] Anti XA Hep U 0.42 0.30 - 0.70 [facility] IU/mL Specimen Anatomical Collection Method Collection Time Receive d Time (Source) Location / / Volume Laterality Blood 06/20/2022 5:57 AM 2 6:19 CDT AM CDT Patrice Hollins MD LABORATORY Performing Organization Address City/[facility] Code Phon e Number [facility] [place] [address] (ABNORMAL) PANEL BASIC METABOLIC (BMP) (06/20/2022 5:57 AM CDT) athologist [facility] CO2 26 22 - 30 [facility] mEq/L Glucose 146 (H) 70 - 100 [facility] mg/dL BUN 14 6 - 20 [facility] mg/dL Creatinine 0.63 (L) 0.70 - 1.25 [facility] mg/dL Calcium 8.4 (L) 8.6 - 10.0 [facility] mg/dL eGFR, High >120 >=60 [facility] ml/min/1.73 m2 Comment: Calculated using CKD-EPI equati on Sodium 139 135 - 148 mEq/L [facility] Potassium 3.8 3.5 - 5.3 mEq/L [facility] Chloride 103 92 - 108 mEq/L [facility] eGFR, Low 119 >=60 ml/min/1.73m2 [facility] Comment: Calculated using CKD-EPI equati on AnGap 10 8 - 16 mEq/L [facility] Specimen Anatomical Collection Method Collection Time Receive d Time (Source) Location / / Volume Laterality Blood 06/20/2022 5:57 AM 2 6:19 CDT AM CDT Patrice Hollins MD LABORATORY Performing Organization Address City/[facility]/ZIP Code Phon e Number [facility] [place] [address] (ABNORMAL) CBC WITH PLATELET (06/20/2022 5:57 AM CDT) athologist [facility] WBC 7.23 4.00 - [facility] 10.00 k/cmm RBC 3.19 (L) 4.60 - 6.00 [facility] m/cmm Hgb 9.0 (L) 13.1 - 17.5 [facility] g/dL Hematocrit 27.0 (L) 40.0 - 51.0 [facility] % MCV 84.6 80.0 - [facility] 100.0 fL MCH 28.2 25.0 - 32.0 [facility] pg MCHC 33.3 31.0 - 36.0 [facility] g/dL RDW 13.1 11.5 - 14.5 [facility] % Plt 266 150 - 400 [facility] k/cmm MPV 10.1 6.5 - 12.5 [facility] fL Specimen Anatomical Collection Method Collection Time Receive d Time (Source) Location / / Volume Laterality Blood 06/20/2022 5:57 AM 2 6:19 CDT AM CDT Patrice Hollins MD LABORATORY Performing Organization Address City/[facility]/ZIP Code Phon e Number [facility] [place] [address] EXTRA TUBE - SST (06/20/2022 1:05 AM CDT) athologist [facility] SST TUBE Stored [facility] Comment: SST tubes (Serum Separator) are stored in the lab for 3 days from the collection date. Specimen Anatomical Collection Method Collection Time Receive d Time (Source) Location / / Volume Laterality Blood 06/20/2022 1:05 AM 2 1:05 CDT AM CDT Kingston Castañeda MD LABORATORY Performing Organization Address City/[facility]/ZIP Code Phon e Number [facility] [place], [place] [address] [place] [address] ANTI XA HEPARIN UNFRACTIONATED (06/20/2022 12:19 AM CDT) athologist [facility] Anti XA Hep U 0.44 0.30 - 0.70 [facility] IU/mL Specimen Anatomical Collection Method Collection Time Receive d Time (Source) Location / / Volume Laterality Blood 06/20/2022 12:19 06/20/2022 1:07 AM CDT AM CDT Patrice Hollins MD LABORATORY Performing Organization Address City/State/ZIP Code Phon e Number [facility] [place] [address] [place] [address] [place] [address] (ABNORMAL) POC GLUCOSE (06/19/2022 8:57 PM CDT) P athologist Signature POC Glucose 126 (H) 70 - 100 [facility] mg/dL CAMPUS - POINT OF CARE Specimen (Source) Anatomical Collection Method Collection Time Re ceived Time Location / / Volume Laterality Blood 06/19/2022 8:57 PM CDT Kingston Castañeda MD LABORATORY Performing Organization Address City/State/ZIP Code Phon e Number [facility] [place] - POINT OF CARE [address] [place] [phone] XR FOOT RIGHT 3 V AP/OBL/LAT* (06/19/2022 [...] vertebral body. Reading Radiologist: Dora Mathew Tamera Wilder PA-C X-RAY XR PELVIS 3 V AP [...] XA Hep U 0.25 (L) 0.30 - [facility] 0.70 IU/mL Specimen Anatomical Collection Method Collection Time Receive d Time (Source) Location / / Volume Laterality Blood 06/19/2022 5:27 PM 6:07 CDT PM CDT Patrice Hollins MD LABORATORY Performing Organization Address City/[facility]/ZIP Code Phon e Number [facility] [place] [address] (ABNORMAL) POC GLUCOSE (06/19/2022 4:01 PM CDT) athologist Signature POC Glucose 159 (H) 70 - 100 [facility] mg/dL CAMPUS - POINT OF CARE Specimen (Source) Anatomical Collection Method Collection Time Re ceived Time Location / / Volume Laterality Blood 06/19/2022 4:01 PM CDT Kingston Castañeda MD LABORATORY Performing Organization Address City/[facility]/ZIP Code Phon e Number [facility] [place] - POINT OF CARE [address] [place] [address] ANTI XA HEPARIN UNFRACTIONATED (06/19/2022 12:51 PM CDT) athologist Signature Anti XA Hep U 0.34 0.30 - 0.70 [facility] IU/mL Specimen Anatomical Collection Method Collection Time Receive d Time (Source) Location / / Volume Laterality Blood 06/19/2022 12:51 06/19/2022 PM CDT 12:59 PM CDT Patrice Hollins MD LABORATORY Performing Organization Address City/[facility]/ZIP Code Phon e Number [facility] [place] [address] PELVIS 3D RECONSTRUCTION (06/19/2022 11:49 AM [...] (ABNORMAL) POC GLUCOSE (06/19/2022 11:19 AM CDT) athologist Signature POC Glucose 128 (H) 70 - 100 [facility] mg/dL CAMPUS - POINT OF CARE Specimen (Source) Anatomical Collection Method Collection Time Re ceived Time Location / / Volume Laterality Blood 06/19/2022 11:19 AM CDT Kingston Castañeda MD LABORATORY Performing Organization Address City/State/ZIP Code Phon e Number [facility] - POINT OF CARE [address] [place] [address] CT UROGRAM (06/19/2022 11:05 AM CDT) Anatomical [...] (ABNORMAL) POC GLUCOSE (06/19/2022 6:03 AM CDT) athologist Signature POC Glucose 135 (H) 70 - 100 [facility] mg/dL CAMPUS - POINT OF CARE Specimen (Source) Anatomical Collection Method Collection Time Re ceived Time Location / / Volume Laterality Blood 06/19/2022 6:03 AM CDT Kingston Castañeda MD LABORATORY Performing Organization Address [facility]/ZIP Code Phon e Number [facility] [place] - POINT OF CARE [address] [place] [address] (ABNORMAL) ANTI XA HEPARIN UNFRACTIONATED (06/19/2022 5:15 AM CDT) Analysis Performed At Patho logist Time Signature Anti XA Hep U <0.04 (L) 0.30 - [facility] 0.70 IU/mL Specimen Anatomical Collection Method Collection Time Receive d Time (Source) Location / / Volume Laterality Blood 06/19/2022 5:15 AM 6:21 CDT AM CDT Patrice Hollins MD LABORATORY Performing Organization Address [facility]/ZIP [facility] Phon e Number [facility] [place] [address] (ABNORMAL) PANEL BASIC METABOLIC (BMP) (06/19/2022 5:15 AM CDT) athologist Signature CO2 24 22 - 30 [facility] mEq/L Glucose 140 (H) 70 - 100 [facility] mg/dL BUN 12 6 - 20 [facility] mg/dL Creatinine 0.61 (L) 0.70 - 1.25 [facility] mg/dL Calcium 8.4 (L) 8.6 - 10.0 [facility] mg/dL eGFR, High >120 >=60 [facility] ml/min/1.73 m2 Comment: Calculated using CKD-EPI equati on Sodium 139 135 - 148 mEq/L [facility] Potassium 4.5 3.5 - 5.3 mEq/L [facility] Chloride 104 92 - 108 mEq/L [facility] eGFR, Low >120 >=60 ml/min/1.73m2 [facility] Comment: Calculated using CKD-EPI equati on AnGap 11 8 - 16 mEq/L [facility] Specimen Anatomical Collection Method Collection Time Receive d Time (Source) Location / / Volume Laterality Blood 06/19/2022 5:15 AM 6:21 CDT AM CDT Patrice Hollins MD LABORATORY Performing Organization Address City/State/ZIP Code Phon e Number [facility] [place], [place] [address] [place] [address] (ABNORMAL) CBC WITH PLATELET (06/19/2022 5:15 AM CDT) P athologist Signature WBC 4.92 4.00 - [facility] 10.00 k/cmm RBC 3.30 (L) 4.60 - 6.00 [facility] m/cmm Hgb 9.4 (L) 13.1 - 17.5 [facility] g/dL Hematocrit 28.0 (L) 40.0 - 51.0 [facility] % MCV 84.8 80.0 - [facility] 100.0 fL MCH 28.5 25.0 - 32.0 [facility] pg MCHC 33.6 31.0 - 36.0 [facility] g/dL RDW 12.8 11.5 - 14.5 [facility] % Plt 227 150 - 400 [facility] k/cmm MPV 10.7 6.5 - 12.5 [facility] fL Specimen Anatomical Collection Method Collection Time Receive d Time (Source) Location / / Volume Laterality Blood 06/19/2022 5:15 AM 6:21 CDT AM CDT Patrice Hollins MD LABORATORY Performing Organization Address City/[facility]/ZIP Code Phon e Number [facility] [place] [address] (ABNORMAL) ANTI XA HEPARIN UNFRACTIONATED (06/18/2022 11:59 PM CDT) Analysis Performed At Patho logist Time Signature Anti XA Hep U <0.04 (L) 0.30 - [facility] 0.70 IU/mL Specimen Anatomical Collection Method Collection Time Receive d Time (Source) Location / / Volume Laterality Blood 06/18/2022 11:59 06/18/2022 PM CDT 11:59 PM CDT Narrative [facility] - 06/19/2022 12:35 AM CDT Baseline Patrice Hollins MD LABORATORY Performing Organization Address City/[facility] Code Phon e Number [facility] [place] [address] (ABNORMAL) POC GLUCOSE (06/18/2022 9:13 PM CDT) P athologist Signature POC Glucose 127 (H) 70 - 100 [facility] mg/dL CAMPUS - POINT OF CARE Specimen (Source) Anatomical Collection Method Collection Time Re ceived Time Location / / Volume Laterality Blood 06/18/2022 9:13 PM CDT Kingston Castañeda MD LABORATORY Performing Organization Address City/[facility]/ZIP Code Phon e Number [facility] MAIN CAMPUS - POINT OF CARE [address] [place] [address] (ABNORMAL) POC GLUCOSE (06/18/2022 7:03 PM CDT) P athologist Signature POC Glucose 147 (H) 70 - 100 [facility] mg/dL CAMPUS - POINT OF CARE Specimen (Source) Anatomical Collection Method Collection Time Re ceived Time Location / / Volume Laterality Blood 06/18/2022 7:03 PM CDT Kingston Castañeda MD LABORATORY Performing Organization Address City/[facility]/ZIP Code Phon e Number [facility] MAIN CAMPUS - POINT OF CARE [address] [place] [address] XR C ARM OVER 3 HRS (06/18/2022 [...] by the resident/fellow. Reading Radiologist: Rhett Ramires Resident: Beto Irene 06/19/2022 9:30 AM CDT [...] by the resident/fellow. Reading Radiologist: Rhett Ramires Resident: Beto Irene Miri Matthew MD X-RAY [...] Reading Radiologist: Rhett Ramires Reading Resident: Beto Ierne Miri Matthew MD X-RAY POC GLUCOSE (06/18/2022 4:15 PM CDT) P athologist Signature POC Glucose 98 70 - 100 [facility] mg/dL CAMPUS - POINT OF CARE Specimen (Source) Anatomical Collection Method Collection Time Re ceived Time Location / / Volume Laterality Blood 06/18/2022 4:15 PM CDT Kingston Castañeda MD LABORATORY Performing Organization Address City/State/ZIP Code Phon e Number [facility] - POINT OF CARE [address] [place] [address] .Post Sedation Immediate (06/18/2022 12:23 PM CDT) [...] the needle into the IVC. A 5 Cypriot pigtail flush catheter was advanced over the [...] the needle into the IVC. A 5 Cypriot pigtail flush catheter was advanc ed over [...] 109 (H) 70 - 100 [facility] mg/dL CAMPUS - POINT OF CARE Specimen (Source) Anatomical Collection Method Collection Time Re ceived Time Location / / Volume Laterality Blood 06/18/2022 11:21 AM CDT Kingston Castañeda MD LABORATORY Performing Organization Address City/State/ZIP Code Phon e Number [facility] - POINT OF CARE [address] [place] [phone] (ABNORMAL) ANTI XA HEPARIN UNFRACTIONATED (06/18/2022 10:27 AM CDT) Analysis Performed At Patho logist Time Signature Anti XA Hep U <0.04 (L) 0.30 - [facility] 0.70 IU/mL Specimen Anatomical Collection Method Collection Time Receive d Time (Source) Location / / Volume Laterality Blood 06/18/2022 10:27 06/18/2022 AM CDT 10:32 AM CDT Patrice Hollins MD LABORATORY Performing Organization Address City/State/ZIP Code Phon e Number [facility] [place] [address] XR URETHROGRAM RETROGRADE (06/18/2022 9:14 AM [...] was unremarkable. No extravasatio n was demonstrated. Tank Welder: Kirby Complications: None Fluoroscopy time: 22 seconds [...] urethra was unremarkable. No extravasation was demonstrated. Tank Welder: Kirby Complications: None Fluoroscopy time: 22 seconds Dose: 12 mGy IMPRESSION IMPRESSION: No evidence for anterior ure thral injury. Reading Radiologist: Mario Orr Patrice Hollins MD FLUORO (ABNORMAL) POC GLUCOSE (06/18/2022 6:26 AM CDT) athologist Signature POC Glucose 125 (H) 70 - 100 [facility] mg/dL [place] - POINT OF CARE Specimen (Source) Anatomical Collection Method Collection Time Re ceived Time Location / / Volume Laterality Blood 06/18/2022 6:26 AM CDT Kingston Castañeda MD LABORATORY Performing Organization Address City/State/ZIP Code Phon e Number [facility] - POINT OF CARE [address] [place] [address] (ABNORMAL) ANTI XA HEPARIN UNFRACTIONATED (06/18/2022 4:50 AM CDT) Analysis Performed At Patho logist Time Signature Anti XA Hep U <0.04 (L) 0.30 - [facility] 0.70 IU/mL Specimen Anatomical Collection Method Collection Time Receive d Time (Source) Location / / Volume Laterality Blood 06/18/2022 4:50 AM 2 5:11 CDT AM CDT Patrice Hollins MD LABORATORY Performing Organization Address City/[facility]/ZIP Code Ph[place] [address] (ABNORMAL) PANEL BASIC METABOLIC (BMP) (06/18/2022 4:50 AM CDT) P athologist Signature CO2 23 22 - 30 [facility] mEq/L Glucose 137 (H) 70 - 100 [facility] mg/dL BUN 12 6 - 20 [facility] mg/dL Creatinine 0.66 (L) 0.70 - 1.25 [facility] mg/dL Calcium 8.3 (L) 8.6 - 10.0 [facility] mg/dL eGFR, High >120 >=60 [facility] ml/min/1.73 m2 Comment: Calculated using CKD-EPI equati on Sodium 137 135 - 148 mEq/L [facility] Potassium 3.8 3.5 - 5.3 mEq/L [facility] Chloride 105 92 - 108 mEq/L [facility] eGFR, Low 117 >=60 ml/min/1.73m2 [facility] Comment: Calculated using CKD-EPI equati on AnGap 9 8 - 16 mEq/L [facility] Specimen Anatomical Collection Method Collection Time Receive d Time (Source) Location / / Volume Laterality Blood 06/18/2022 4:50 AM 2 5:11 CDT AM CDT Patrice Hollins MD LABORATORY Performing Organization Address City/[facility] Code Phon [place] [address] (ABNORMAL) CBC WITH PLATELET (06/18/2022 4:50 AM CDT) P athologist Signature WBC 7.80 4.00 - [facility] 10.00 k/cmm RBC 3.37 (L) 4.60 - 6.00 [facility] m/cmm Hgb 9.6 (L) 13.1 - 17.5 [facility] g/dL Hematocrit 28.8 (L) 40.0 - 51.0 [facility] % MCV 85.5 80.0 - [facility] 100.0 fL MCH 28.5 25.0 - 32.0 [facility] pg MCHC 33.3 31.0 - 36.0 [facility] g/dL RDW 13.3 11.5 - 14.5 [facility] % Plt 191 150 - 400 [facility] k/cmm MPV 10.2 6.5 - 12.5 [facility] fL Specimen Anatomical Collection Method Collection Time Receive d Time (Source) Location / / Volume Laterality Blood 06/18/2022 4:50 AM 5:11 CDT AM CDT Patrice Hollins MD LABORATORY Performing Organization Address City/[facility]/ZIP Code Phon e Number [facility] [place] [address] (ABNORMAL) ANTI XA HEPARIN UNFRACTIONATED (06/17/2022 10:34 PM CDT) athologist [facility] Anti XA Hep U 0.22 (L) 0.30 - [facility] 0.70 IU/mL Specimen Anatomical Collection Method Collection Time Receive d Time (Source) Location / / Volume Laterality Blood 06/17/2022 10:34 06/17/2022 PM CDT 11:12 PM CDT Patrice Hollins MD LABORATORY Performing Organization Address City/[facility]/ZIP Code Phon e Number [facility] [place] [address] (ABNORMAL) POC GLUCOSE (06/17/2022 8:43 PM CDT) athologist Signature POC Glucose 132 (H) 70 - 100 [facility] mg/dL CAMPUS - POINT OF CARE Specimen (Source) Anatomical Collection Method Collection Time Re ceived Time Location / / Volume Laterality Blood 06/17/2022 8:43 PM CDT Kingston Castañeda MD LABORATORY Performing Organization Address City/State/ZIP Code Phon e Number [facility] MAIN CAMPUS - POINT OF CARE [address] [place] [phone] (ABNORMAL) POC GLUCOSE (06/17/2022 3:57 PM CDT) athologist Signature POC Glucose 169 (H) 70 - 100 [facility] mg/dL CAMPUS - POINT OF CARE Specimen (Source) Anatomical Collection Method Collection Time Re ceived Time Location / / Volume Laterality Blood 06/17/2022 3:57 PM CDT Kingston Castañeda MD LABORATORY Performing Organization Address City/State/ZIP Code Phon e Number [facility] [place] - POINT OF CARE [address] [place] [address] ULT VENOUS LOWER EXTREMITY BILAT (06/17/2022 3:35 [...] reported to referring provider Nisha Guadalupe via [employer] who responded indicating that the communication was [...] reported to referring provider Nisha Guadalupe via [employer] who responded indicating that the communication was understood. Contact was made at the time of interpretation on 06/17/2022 3:37 PM, wit hin 5 minutes of observation. Reading Radiologist: Lenny Callahan Meredith Guadalupe SMOKE AND FLAME SPECIALIST, STERILE SUPPLY TECHNICIAN ULT (ABNORMAL) POC GLUCOSE (06/17/2022 11:54 AM CDT) P athologist Signature POC Glucose 102 (H) 70 - 100 [facility] mg/dL CAMPUS - POINT OF CARE Specimen (Source) Anatomical Collection Method Collection Time Re ceived Time Location / / Volume Laterality Blood 06/17/2022 11:54 AM CDT Kingston Castañeda MD LABORATORY Performing Organization Address City/State/ZIP Code Phon e Number [facility] MAIN CAMPUS - POINT OF CARE [address] [place] [address] ANTIBODY SCREEN (06/17/2022 11:46 AM CDT) athologist Signature Sabrina Screen Negative [facility] Specimen Anatomical Collection Method Collection Time Receive d Time (Source) Location / / Volume Laterality Blood 06/17/2022 11:46 06/17/2022 AM CDT 12:06 PM CDT Patrice Hollins MD LAB TRANSFUSION SERVICES Performing Organization Address City/[facility] Code Phon e Number [facility] [place] [address] BLOOD TYPING-ABO/RH (06/17/2022 11:46 AM CDT) athologist Signature ABORHG A POS [facility] Specimen Anatomical Collection Method Collection Time Receive d Time (Source) Location / / Volume Laterality Blood 06/17/2022 11:46 06/17/2022 AM CDT 12:06 PM CDT Patrice Hollins MD LAB TRANSFUSION SERVICES Performing Organization Address [facility] Code Phon e Number [facility] [place] [address] POC GLUCOSE (06/17/2022 6:53 AM CDT) athologist Signature POC Glucose 88 70 - 100 [facility] mg/dL CAMPUS - POINT OF CARE Specimen (Source) Anatomical Collection Method Collection Time Re ceived Time Location / / Volume Laterality Blood 06/17/2022 6:53 AM CDT Kingston Castañeda MD LABORATORY Performing Organization Address City/[facility]/ZIP Code Phon e Number [facility]IN CAMPUS - POINT OF CARE [address] [place] [address] (ABNORMAL) POC GLUCOSE (06/17/2022 6:51 AM CDT) athologist Signature POC Glucose 20 (LL) 70 - 100 [facility] mg/dL CAMPUS - POINT OF CARE Specimen (Source) Anatomical Collection Method Collection Time Re ceived Time Location / / Volume Laterality Blood 06/17/2022 6:51 AM CDT Kingston Castañeda MD LABORATORY Performing Organization Address City/[facility]/ZIP Code Phon e Number [facility] MAIN CAMPUS - POINT OF CARE [address] [place] [phone] (ABNORMAL) PANEL BASIC METABOLIC (BMP) (06/17/2022 5:07 AM CDT) athologist Signature CO2 23 22 - 30 [facility] mEq/L Glucose 118 (H) 70 - 100 [facility] mg/dL BUN 13 6 - 20 [facility] mg/dL Creatinine 0.82 0.70 - 1.25 [facility] mg/dL Calcium 8.1 (L) 8.6 - 10.0 [facility] mg/dL eGFR, High >120 >=60 [facility] ml/min/1.73 m2 Comment: Calculated using CKD-EPI equati on Sodium 137 135 - 148 mEq/L [facility] Potassium 3.6 3.5 - 5.3 mEq/L [facility] Chloride 105 92 - 108 mEq/L [facility] eGFR, Low 107 >=60 ml/min/1.73m2 [facility] Comment: Calculated using CKD-EPI equati on AnGap 9 8 - 16 mEq/L [facility] Specimen Anatomical Collection Method Collection Time Receive d Time (Source) Location / / Volume Laterality Blood 06/17/2022 5:07 AM 5:37 CDT AM CDT Kingston Castañeda MD LABORATORY Performing Organization Address City/State/ZIP Code Phon e Number [facility] [place] [address] (ABNORMAL) CBC WITH PLATELET (06/17/2022 5:07 AM CDT) athologist Signature WBC 7.32 4.00 - [facility] 10.00 k/cmm RBC 3.43 (L) 4.60 - 6.00 [facility] m/cmm Hgb 9.8 (L) 13.1 - 17.5 [facility] g/dL Hematocrit 29.4 (L) 40.0 - 51.0 [facility] % MCV 85.7 80.0 - [facility] 100.0 fL MCH 28.6 25.0 - 32.0 [facility] pg MCHC 33.3 31.0 - 36.0 [facility] g/dL RDW 13.3 11.5 - 14.5 [facility] % Plt 181 150 - 400 [facility] k/cmm MPV 10.1 6.5 - 12.5 [facility] fL Specimen Anatomical Collection Method Collection Time Receive d Time (Source) Location / / Volume Laterality Blood 06/17/2022 5:07 AM 5:36 CDT AM CDT Kingston Castañeda MD LABORATORY Performing Organization Address City/State/ZIP Code Phon e Number [facility] [place] [address] (ABNORMAL) POC GLUCOSE (06/16/2022 9:14 PM CDT) athologist Signature POC Glucose 149 (H) 70 - 100 [facility] mg/dL CAMPUS - POINT OF CARE Specimen (Source) Anatomical Collection Method Collection Time Re ceived Time Location / / Volume Laterality Blood 06/16/2022 9:14 PM CDT Kingston Castañeda MD LABORATORY Performing Organization Address City/[facility]/ZIP Code Phon e Number [facility] [place] - POINT OF CARE [address] [place] [address] XR WRIST RIGHT 3+ PA/OB/LAT/JENS* (06/16/2022 6:58 [...] radius. Reading Radiologist: Indio Cadena Yaritza Gallegos SMOKE AND FLAME SPECIALIST, STERILE SUPPLY TECHNICIAN X-RAY POC GLUCOSE (06/16/2022 6:05 PM CDT) athologist Signature POC Glucose 73 70 - 100 [facility] mg/dL CAMPUS - POINT OF CARE Specimen (Source) Anatomical Collection Method Collection Time Re ceived Time Location / / Volume Laterality Blood 06/16/2022 6:05 PM CDT Kingston Castañeda MD LABORATORY Performing Organization Address City/[facility]/ZIP Code Phon e Number [facility] - POINT OF CARE [address] [place] [address] POC GLUCOSE (06/16/2022 12:47 PM CDT) athologist Signature POC Glucose 95 70 - 100 [facility] mg/dL [place] - POINT OF CARE Specimen (Source) Anatomical Collection Method Collection Time Re ceived Time Location / / Volume Laterality Blood 06/16/2022 12:47 PM CDT Kingston Castañeda MD LABORATORY Performing Organization Address City/[facility] Phon e Number [facility] - POINT OF CARE [address] [place] [address] XR PELVIS 5V AP/IN/OUTLET/JUDET* (06/16/2022 12:19 PM [...] Radiologist: Anam Saleh Reading Resident: Josse Pringle Narrative 06/16/2022 4:06 PM CDT Exam: ??Cystogram Indication: Rule out bladder rupture Comparison: CT chest abdomen and pelvis 06/15/2022. Fluoroscopy time: ??22 seconds Dose:12 mGy Ophelia protocol was followed. ?? Technique: The patient [...] 06/15/2022. Fluoroscopy time: 22 seconds Dose:12 mGy Ophelia protocol was followed. Technique: The patient arrived [...] athologist Signature Lactate 0.7 0.7 - 2.1 [facility] mmol/L Specimen Anatomical Collection Method Collection Time Receive d Time (Source) Location / / Volume Laterality Blood 06/16/2022 2:20 AM 2 2:47 CDT AM CDT Narrative [facility] - 06/16/2022 3:06 AM CDT Send specimen on ice! Gideon Dyer MD LABORATORY Performing Organization Address City/State/ZIP Code Phon e Number [facility] [place], [place] [phone] [place] [address] (ABNORMAL) URINALYSIS,TOTAL (06/16/2022 12:20 AM CDT) [facility] Method Time Signature Color YELLOW YELLOW [facility] Appearance CLEAR CLEAR [facility] Urine Glucose NEGATIVE NEGATIVE [facility] mg/dL Bili UA NEGATIVE NEGATIVE [facility] Ketones TRACE (A) NEGATIVE [facility] mg/dL Blood Ur NEGATIVE Neg-Trace [facility] PH Urine 5.5 5.0 - 7.0 [facility] Protein Ur TRACE Neg-Trace [facility] mg/dL Urobilinogen NORMAL NORMAL EU/dL [facility] Nitrite Ur NEGATIVE NEGATIVE [facility] Leuk Est NEGATIVE Neg-Trace [facility] WBC Ur 6-10 (A) 0 - 5 perHPF [facility] RBC Ur 11-20 (A) 0 - 3 perHPF [facility] SQ EPITH 0-5 0 - 5 perHPF [facility] Mucus 1+ perLPF [facility] Sperm PRESENT [facility] Bacteria UA PRESENT [facility] Comment: Presence of bacteria does not n ecessarily indicate a UTI. The presence of bacteria can indicate a non-clean catch urine specimen. Bacteria should be used in conjunction with other UA results and cl inical presentation to assist in diagnosing an infection. Urinalysis Performed at: [facility] Specific [place] 1.010 1.003 - 1.030 [facility] Specimen Anatomical Collection Method Collection Time Receive d Time (Source) Location / / Volume Laterality Urine 06/16/2022 12:20 06/16/2022 AM CDT 12:39 AM CDT Gideon Dyer MD LABORATORY Performing Organization Address City/State/ZIP Code Phon e Number [facility] [place] [address] XR PELVIS AP* (06/15/2022 11:21 PM [...] of S1 segment. Reading Radiologist: Stephany Granda 06/15/2022 8:42 PM CDT Thoracic and Lumbar [...] avulsion injury. Procedure Note Rizwan Cunningham V., REINIER - 06/15/2022Form atting of this note might [...] canal or neural foraminal stenosis. 3. Suspected [place] syndrome on the left. Reading Radiologist: Stephany Granda Narrative 06/15/2022 8:40 PM CDT Indication: Trauma (STAB) [...] visualized paraspi nous tissues is noted. Suspected [place] syndrome on left. Procedure Note Stephany Granda [...] visualized paraspi nous tissues is noted. Suspected [place] syndrome on left. IMPRESSION Impression: 1. No fracture or subluxation of the cer vical vertebrae. 2. No significant spinal canal or neural foraminal stenosis. 3. Suspected [place] syndrome on the left. Reading Radiologist: Stephany [...] styloid process, which can be seen in [place] syndrome. The visualized portions of the paranasal [...] styloid process, which can be seen in [place] syndrome. The visualized portions of the paranasal [...] klaudia i fractures. Reading Radiologist: Rizwan Cunningham Narrative 06/15/2022 7:48 PM CDT Indication: ??fall ?? [...] PM CDT) athologist Signature CASTAÑEDA TUBE Stored [facility] Comment: Castañeda top (Sodium flouride) tube s are stored in the lab for 3 days from the collection date. Specimen Anatomical Collection Method Collection Time Receive d Time (Source) Location / / Volume Laterality Blood 06/15/2022 7:20 PM 7:31 CDT PM CDT Kingston Castañeda MD LABORATORY Performing Organization Address City/State/ZIP Code Phon e Number [facility] [place] [address] EXTRA TUBE - SST (06/15/2022 7:20 PM CDT) athologist Signature SST TUBE Stored [facility] Comment: SST tubes (Serum Separator) are stored in the lab for 3 days from the collection date. Specimen Anatomical Collection Method Collection Time Receive d Time (Source) Location / / Volume Laterality Blood 06/15/2022 7:20 PM 2 7:31 CDT PM CDT Kingston Castañeda MD LABORATORY Performing Organization Address City/[facility]/ZIP Code Phon e Number [facility] [place] [address] HS TROPONIN (06/15/2022 7:20 PM CDT) athologist [facility] HS Troponin I 4 <=34 ng/L [facility] Specimen Anatomical Collection Method Collection Time Receive d Time (Source) Location / / Volume Laterality Blood 06/15/2022 7:20 PM 2 7:41 CDT PM CDT Narrative [facility] - 06/15/2022 8:11 PM CDT First Occurrence of the Troponin order i s to be drawn Stat by Nursing staff on the unit. Gideon Dyer MD LABORATORY Performing Organization Address City/[facility]/ZIP Code Phon e Number [facility] [place] [address] (ABNORMAL) PTT (APTT) (06/15/2022 7:20 PM CDT) athologist [facility] APTT 21.4 (L) 25.0 - 37.0 [facility] sec Specimen Anatomical Collection Method Collection Time Receive d Time (Source) Location / / Volume Laterality Blood 06/15/2022 7:20 PM 2 7:41 CDT PM CDT Gideon Dyer MD LABORATORY Performing Organization Address City/[facility]/ZIP Code Phon e Number [facility] [place] [address] PROTHROMBIN (PT) & INR (06/15/2022 7:20 PM CDT) athologist Signature PT 11.9 9.0 - 12.5 [facility] sec INR 1.0 0.8 - 1.1 [facility] Specimen Anatomical Collection Method Collection Time Receive d Time (Source) Location / / Volume Laterality Blood 06/15/2022 7:20 PM 7:41 CDT PM CDT Gideon Dyer MD LABORATORY Performing Organization Address City/[facility] Phon e Number [facility] [place] [address] COVID-19 SURVEILLANCE (06/15/2022 7:20 PM CDT) [facility] Method Time Signature COVID-19 Not Detected Not Detected [facility] Comment: This test was developed and its performa nce characteristics determined by [facility]. This testing, RT-PCR, has been authorized by [...] 06/15 PM CDT 7:32 PM CDT Narrative [facility] - 06/15/2022 8:08 PM CDT Preferred specimen is Nasopharyngeal swab Is the patient a healthcare employee: No Is the patient a [employer] ([facility]) Employee : No Gideon Dyer MD LABORATORY Performing Organization Address City/[facility] Code Phon e Number [facility] [place] [address] PRECAUTIONARY TUBE (06/15/2022 7:20 PM CDT) Patholo gist Method Time Signature Prec Tube Precautionary [facility] Blood Bank Specimen Received. Specimen Anatomical Collection Method Collection Time Receive d Time (Source) Location / / Volume Laterality Blood 06/15/2022 7:20 PM 2 7:43 CDT PM CDT Gideon Dyer MD LAB TRANSFUSION SERVICES Performing Organization Address City/[facility]/ZIP Code Phon e Number [facility] [place] [address] LACTATE (LACTIC ACID) (06/15/2022 7:20 PM CDT) athologist [facility] Lactate 1.4 0.7 - 2.1 [facility] mmol/L Specimen Anatomical Collection Method Collection Time Receive d Time (Source) Location / / Volume Laterality Blood 06/15/2022 7:20 PM 2 7:30 CDT PM CDT Narrative [facility] - 06/15/2022 7:30 PM CDT Send specimen on ice! Gideon Dyer MD LABORATORY Performing Organization Address City/State/ZIP Code Phon e Number [facility] [place] [address] (ABNORMAL) FIBRINOGEN (06/15/2022 7:20 PM CDT) athologist [facility] Fibrinogen 199 (L) 200 - 400 [facility] mg/dL Specimen Anatomical Collection Method Collection Time Receive d Time (Source) Location / / Volume Laterality Blood 06/15/2022 7:20 PM 2 7:41 CDT PM CDT Gideon Dyer MD LABORATORY Performing Organization Address City/State/ZIP Code Phon e Number [facility] [place] [address] ED HEMOGLOBIN TOTAL (ED ONLY) (06/15/2022 7:20 PM CDT) athologist Signature Hgb 13.7 13.1 - 17.5 [facility] g/dL Specimen Anatomical Collection Method Collection Time Receive d Time (Source) Location / / Volume Laterality Blood 06/15/2022 7:20 PM 2 7:30 CDT PM CDT Gideon Dyer MD LABORATORY Performing Organization Address [facility]/ZIP [facility] Phon e Number [facility] [place] [address] (ABNORMAL) ED CHEMISTRY LABS(NA,K,CL,CO2,GLU,CREAT,CA-IONIZED,ANION GAP) (06/15/2022 7:20 PM CDT) Analysis Performed At Patho logist Time Signature Sodium 140 135 - 148 [facility] mEq/L Chloride 109 (H) 92 - 108 [facility] mEq/L AnGap 8 8 - 16 [facility] mEq/L Glucose 186 (H) 70 - 100 [facility] mg/dL ICA, Actual 4.44 4.40 - [facility] 5.20 mg/dL ICA, pH 4.28 (L) 4.40 - [facility] Corrected 5.20 mg/dL Creatinine 1.00 0.70 - [facility] 1.25 mg/dL BICARB 24 22 - 26 [facility] mEq/L eGFR, High 105 >=60 [facility] ml/min/1.7 3m2 Comment: Calculated using CKD-EPI equati on eGFR, Low 90 >=60 ml/min/1.73m2 [facility] Comment: Calculated using CKD-EPI equati on Potassium 3.6 3.5 - 5.3 mEq/L [facility] Specimen Anatomical Collection Method Collection Time Receive d Time (Source) Location / / Volume Laterality Blood 06/15/2022 7:20 PM 7:30 CDT PM CDT Gideon Dyer MD LABORATORY Performing Organization Address [facility]/ZIP Code Phon e Number [facility] [place] [address] (ABNORMAL) CBC WITH PLTS/AUTO DIFF (06/15/2022 7:20 PM CDT) Patholo gist Method Time Signature WBC 14.21 (H) 4.00 - [facility] 10.00 k/cmm RBC 4.65 4.60 - [facility] 6.00 m/cmm Hgb 13.0 (L) 13.1 - [facility] 17.5 g/dL Hematocrit 39.7 (L) 40.0 - [facility] 51.0 % MCV 85.4 80.0 - [facility] 100.0 fL MCH 28.0 25.0 - [facility] 32.0 pg MCHC 32.7 31.0 - [facility] 36.0 g/dL RDW 13.2 11.5 - [facility] 14.5 % Plt 294 150 - 400 [facility] k/cmm MPV 10.6 6.5 - 12.5 [facility] fL Automated Abs 10.31 (H) 1.70 - [facility] Neutrophil 6.50 k/cmm Comment: Preliminary ANC, Final Result t o Follow Abs Immature Granulocyte 0.26 (H) 0.00 - 0.09 k/cmm [facility] Comment: The Immature Granulocyte Absolu te count contains metamyelocytes and myelocytes. Abs Neutrophil 10.31 (H) 1.70 - 6.50 k/cmm [facility] B Abs Lymphocyte 2.74 0.80 - 4.00 k/cmm [facility] B Abs Monocyte 0.67 0.20 - 1.00 k/cmm [facility] Abs Eosinophil 0.20 0.00 - 0.60 k/cmm [facility] B Abs Basophil 0.03 0.00 - 0.20 k/cmm [facility] Specimen Anatomical Collection Method Collection Time Receive d Time (Source) Location / / Volume Laterality Blood 06/15/2022 7:20 PM 2 7:41 CDT PM CDT Gideon Dyer MD LABORATORY Performing Organization Address City/State/ZIP Code Phon e Number [facility] [place] [address] BLOOD GASES (06/15/2022 7:20 PM CDT) P athologist Signature PH Anish 7.33 7.32 - 7.42 [facility] PCO2 Anish 46 41 - 51 [facility] mmHG PO2 Anish 35 25 - 40 [facility] mmHG Bicarb Anish 24 24 - 28 [facility] mEq/L O2 Sat Anish 62 % [facility] Base Exc Anish -2.9 -10.0 - 2.0 [facility] mEq/L Specimen Anatomical Collection Method Collection Time Receive d Time (Source) Location / / Volume Laterality Blood Venous 06/15/2022 7:20 PM 2 7:30 CDT PM CDT Gideon Dyer MD LABORATORY Performing Organization Address City/State/ZIP Code Phon e Number [facility] [place] [address] [address] [facility] ED US CRITICAL CARE (06/15/2022 7:16 PM [...] process of lumbar vertebra, initial encounter () Pelvic ring fracture, closed, initial en counter () Closed fracture of distal end of [...] Given 06/19/2022 4:13 PM CDT 10 mg bupivacaine 0.25%-EPINEPHrine Given 06/24/2022 3:55 PM CDT 20 mL Incision (1:200,000) 0.25% (1:096958) injection INTRA-OP ONCE PRN, Starting on Thu06/24/22 at 1555, Until Thu06/24/22 at 1621 bupivacaine liposome (EXPAREL) Given 06/24/2022 3:55 PM CDT 20 m L Incision injection INTRA-OP ONCE PRN, Starting on Thu06/24/22 at 1555, Until Thu06/24/22 at 1621 cyclobenzaprine (FLEXERIL) tablet 5 mg Given 06/27/2022 [...] Final, Does not apply, PROTOCOL, Starting on Cathy 06/26/22 at 1546, Until Thu06/27/22 at 2104 enoxaparin (LOVENOX) 40 mg/0.4 Given 06/27/2022 9:22 AM CDT 40 m g Right Upper Arm mL injection 40 mg 40 mg, Subcutaneous, Q12H, First dose (after last modification) on Thu06/25/22 at 2000, Until Discontinued Given 06/26/2022 8:36 PM CDT 40 mg Abdom inal Tissue Given 06/26/2022 8:27 AM CDT 40 mg Abdom inal Tissue FLEET enema 118 mL 118 mL (1 enema), Rectal, ONE TIME PRN, 1 dose, Starting on Thu06/23/22 at 1335, Until Thu06/27/22 at 2104, Constipation (Use Second) GABApentin (NEURONTIN) capsule 400 mg Given 06/27/2022 2:42 PM CDT 400 mg 400 mg, Oral, TID, First dose (after last modification) on Thu06/21/22 at 1400, Until Discontinued Given 06/27/2022 9:24 AM CDT 400 mg Given 06/26/2022 8:37 PM CDT 400 mg hydrOXYzine (ATARAX;VISTARIL) tablet 25- 50 mg Given [...] dose on Thu06/16/22 at 2100, Until Discontinued lidocaine 1%-EPINEPHrine (1:100,000) Given 06/24/2022 2:09 PM CD T 50 mL Incision injection INTRA-OP ONCE PRN, Starting on Thu06/24/22 at 1409, Until Thu06/24/22 at 1621 melatonin tablet 3 mg Given 06/25/2022 9:52 PM CDT 3 mg 3 mg, Oral, BEDTIME PRN, Starting on Thu06/23/22 at 2208, Until Thu06/27/22 at 2104, Sleep Given 06/23/2022 10:16 PM CDT 3 mg milk of magnesia 400 mg/5 mL suspension 30 mL Given 06/27/2022 9:22 AM CDT 30 mL 30 mL, Oral, DAILY, First dose on Thu06/21/22 at 0925, Until Discontinued Given 06/26/2022 8:28 AM CDT 30 mL Given 06/23/2022 8:17 AM CDT 30 mL naloxone (NARCAN) 0.4 mg/mL injection 0. 4 [...] 4 mg, Oral, Q6H PRN, Starting on 06/16/22 at 0125, Until Thu06/27/22 at 2104, Nausea/Vomiting [...] 10 mg polyethylene glycol 3350 (MIRALAX;GLYCOLAX) Given 06/27/2022 9:2 2 AM CDT 17 g packet 17 g 17 g, Oral, BID, First dose (after last modification) on 06/21/22 at 2000, Until Discontinued Given 06/26/2022 8:27 AM CDT 17 g Given 06/25/2022 7:47 PM CDT 17 g sennosides-docusate sodium (STOOL Given 06/27/2022 9:24 AM CDT 1 tablet SOFTENER/LAXATIVE) 8.6-50 mg tablet 1 tablet 1 tablet, Oral, BID, First dose on 06/21/22 at 0925, Until Discontinued Given 06/26/2022 8:36 PM CDT 1 tablet Given 06/26/2022 8:27 AM CDT 1 tablet sodium chloride tablet 2 g Given 06/27/2022 [...] Given 06/25/2022 7:52 AM CDT 0.4 mg thrombin (THROMBIN-JMI) solution Given 06/24/2022 3:28 PM CDT 2 kits Incis ion INTRA-OP ONCE PRN, Starting on Thu06/24/22 at 1528, Until Thu06/24/22 at 1621 vancomycin (VANCOCIN) injection Given 06/24/2022 3:29 PM CDT 1,000 mg Incis ion INTRA-OP ONCE PRN, Starting on Thu06/24/22 at 1529, Until Thu06/24/22 at 1621 documented in this encounter Active and Recently Administered Medications Times are shown in CDT. Scheduled Medication Order 06/25/2022 06/26/2022 06/27/2022 acetaminophen tablet 975 mg 0752 (Given - Provider: Gina Whitman RN)1356 (Given - Provider: Vargas Whitman RN)194 (Given - Provider: Elva Adamson RN) 0827 (Given - Provider: Vargas hollis RN)135 (Given - Provider: Vargas Whitman RN)203 (Given - Provider: Shanice Nieves RN) 0923 (Given - Provider: Vargas hollis RN)1442 (Given - Provider: Vargas Whitman RN) 975 mg, Oral, TID, First dose on Thu06/16/22 at 0800, Until Disc ontinued ceFAZolin (ANCEF) IVPB 2 g (COMPLETED) 1233 (New Bag - Provider: Leonides Wynn RN)1303 (Infusion completed - Provider: Vargas Whitman RN) 2 g, Indication (Select One): Prophylaxi s - Surgical, Intravenous, Q 8H, 1 dose, First dose on Thu06/25/22 at 1115 cyclobenzaprine (FLEXERIL) tablet 5 mg 0752 (Given - P rovider: Vargas Whitman RN)1356 (Given - Provider: Vargas Whitman RN)194 (Given - Provider: Elva Adamson RN) 08 [...] RN)2035 (Given - Provider: Shanice Nieves RN) 0922 (Given - Provider: Vargas hollis RN) 40 [...] RN)2036 (Given - Provider: Shanice Nieves RN) 0924 (Given - Provider: Vargas hollis RN)144 (Given - Provider: Vargas Whitman RN) 400 [...] protocol) 1622 (Dual Sign-Off - Provider: Tamera Shaw RN)1625 (Given - Provider: Tamera Shaw RN) 300: 3 units, Glucose 301-350: 4 units, Glucose 351-400: 5 units, Glucose 401- 500: 6 units, Glucose GREATER THAN 501: 7 units and call provider, Subcutaneous, TID AC, First dose on 06/16/22 at 1130, Until Discontinued insulin ASPART (NovoLOG) FlexPen 2121 (Not Given (benigno ves Due time) - [...] Vargas Whitman RN - Reason: Patient refused) 08 (Given - Provider: Vargas Whitman RN) 09 (Given - Provider: Vargas hollis, RASHEL) 30 mL, Oral, DAILY, First dose on [...] Reason: Patient refused)1946 (Given - Provider: Elva Adamson RN) 826 (Given - Provider: Vargas Whitman RN)2036 (Not Given (removes Due time) - Provider: Shanice Nieves RN - Reason: Patient refused - Comment: BM x 3 today) 09 (Given - Provider: Vargas Whitman RN) 17 g, Oral, BID, First dose (after last modification) on Thu06/21/22 at 2000, Until Discontinued sennosides-docusate sodium (STOOL SOFTENER/LAXATIVE) 8 .6-50 mg tablet 1 tablet 0752 (Not Given (removes Due time) - Provider: Vargas Whitman RN - Reason: Patient refused)1946 (Given - Provider: Elva Adamson, RASHEL) 08 (Given - Provider: Vargas Whitman, RASHEL)2035 (Given - Provider: Shanice Nieves, RASHEL) 0924 (Given - Provider: Vargas hollis RN) 1 tablet, Oral, BID, First dose on 06/21/22 at 0925, Until Di scontinued sodium chloride tablet 2 g 1351 (Given - Provider: Vargas Whitman RN)1629 (Given - Provider: Tamera Shaw RN)203 (Given - Provider: Shanice Nieves RN) 0923 (Given - Provider: Vargas hollis, RASHEL)1200 (Given - Provider: Vargas Whitman RN)1700 (Due) 2 g, Oral, QID, First dose on Cathy 06/26/22 at 1330, Until Discont inued tamsulosin (FLOMAX) capsule 0.4 mg 0752 (Given - Provi akiko: Vargas Whitman RN) 826 (Given - Provider: Vargas Whitman RN) 09 [...] ( CANCELED) 0248 (Given - Provider: Peace Waite, RASHEL)0657 (Given - Provider: Peace Waite, RASHEL)1210 (Given - Provider: Vargas Whitman RN)152 (Given - Provider: Elva Adamson, RASHEL)1947 (Given - Provider: Elva Adamson RN) 0559 (Given - Provider: Shanice Nieves RN) 0.5 mg, IV Push, Q4H PRN, Starting on Mo n 06/16/22 at 0944, Until Cathy 06/26/22 at 1038, Severe Pain (Use First) hydrOXYzine (ATARAX;VISTARIL) tablet 25-50 mg 0442 (Gi anish - Provider: Natalia Romero RN)0935 (Given - Provider: Vargas Whitman RN)1356 (Given [...] mg 0221 (Given - Pr ovider: Peace Waite, RN)0524 (Given - Provider: Roger Fall, RN)0936 (Given - Provider: Vargas Whitman, RASHEL)1355 (Given - Provider: Vargas Whitman, RASHEL)1747 (Given - Provider: Elva Adamson, RASHEL) 0249 (Given - Provider: Shanice Nieves, RASHEL)0957 (Given - Provider: Vargas Whitman, RN)1352 (Given - Provider: Vargas Whitman, RASHEL)1755 (Given - Provider: Tamera Shaw, RASHEL) 0051 (Given - Provider: Shanice Nieves RN)0501 (Given - Provider: Shanice Nieves RN)0924 (Given - Provider: Vargas Whitman, RASHEL) 5-10 mg, Oral, Q4H PRN, Starting on 06/16/22 at 0125, Until Thu06/27/22 at 2104, Moderate [...] n made to medications for discharge. Tanner ose the Preliminary DC Med Rec review when [...]
--- OUTSIDE RECORDS SUMMARY | 2022-07-17 10:15 | XMS_ITS | Encounter Summary ---
:1975 Author Organization [facility] Address [address] [place] [address] Phone Care Team Providers Name Role Phone Lore Au PT Unavailable Encounter Details Date Type Department Care Team Description 06/18/2022 Orders Only Unspecified Departme nt Unknown, Provider [...] RADIOLOGY Roosevelt Brown MD [address] [place] [address] Scheduled 1, [place] [address] [place] [address] 07/22/2022 Office Visit ORTHOPEDICS Miri Matthew MD [address] [place], [place] [address] Scheduled 1, [place] [address] [place] [address] 07/22/2022 Office Visit Interventional Radiology Provider, Hesham haq Scheduled 1, [place] [address] [place] [address] 07/25/2022 Appointment RADIOLOGY Ptarice Hollins MD [address] [address] Scheduled 1, [place] [address] [place] [address] 07/25/2022 Office Visit NEUROSURGERY Briana Kaplan PA -C [address] [place] [address] Scheduled 1, [place] [address] [place] [address] 07/25/2022 Appointment PHYSICAL MEDICINE AND REHAB Lore Aguilar PT Scheduled [address], [place] [address] (Wo rk) 08/05/2022 Appointment ORTHOPEDICS 1, [place] Scheduled [address] [place] [address] 08/05/2022 Appointment RADIOLOGY Roosevelt Brown MD [address] [place] [address] Scheduled 1, [place] [address] [place] [address] 08/05/2022 Appointment RADIOLOGY Roosevelt Brown MD [address] [place] [address] Scheduled 1, [place] [address] [place] [address] 08/05/2022 Office Visit ORTHOPEDICS Roosevelt Brown MD [address] [place] [address] Scheduled 1, [place] [address] [place] [address] documented as of this encounter Procedures Procedure Name Priority Date/Time Associated Diagnosis Comme nts TELEMETRY STRIPS 06/18/2022 10:17 PM Resu lts for this CDT procedure are i n the results section. documented in this encounter Results TELEMETRY STRIPS (06/18/2022 10:17 PM CDT) Narrative 06/18/2022 10:17 PM CDT This result has an attachment that is no t available. Ordered by an unspecified provider. Provider Unknown ECHO documented in this encounter Visit Diagnoses Not on filedocumented in this encounter Care Teams Dampproofer Relationship Specialty Start Date End Date Lore Au, PT Physical Therapist Physical Therapy 07/09/[address] [place] [address] documented as of this encounter
--- OUTSIDE RECORDS SUMMARY | 2022-07-17 10:15 | XMS_ITS | Encounter Summary ---
:1975 Author Organization [facility] Address [address] [place] [address] Phone Care Team Providers Name Role Phone Lore Au PT Unavailable Encounter Details Date Type Department Care Team Description 06/19/2022 Orders Only Unspecified Departme nt Unknown, Provider [...] RADIOLOGY Roosevelt Brown MD [address] [place] [address] Scheduled 1, [place] [address] [place] [address] 07/22/2022 Office Visit ORTHOPEDICS Miri Matthew MD [address] [place], [place] [address] Scheduled 1, [place] [address] [place] [address] 07/22/2022 Office Visit Interventional Radiology Provider, Hesham haq Scheduled 1, [place] [address] [place] [address] 07/25/2022 Appointment RADIOLOGY Patrice Hollins MD [address] [address] Scheduled 1, [place] [address] [place] [address] 07/25/2022 Office Visit NEUROSURGERY Briana Kaplan PA -C [address] [place] [address] Scheduled 1, [place] [address] [place] [address] 07/25/2022 Appointment PHYSICAL MEDICINE AND REHAB Lore Aguilar PT Scheduled [address] [address] (Wo rk) 08/05/2022 Appointment ORTHOPEDICS 1, [place] Scheduled [address] [place] [address] 08/05/2022 Appointment RADIOLOGY Roosevelt Brown MD [address] [place] [address] Scheduled 1, [place] [address] [place] [address] 08/05/2022 Appointment RADIOLOGY Roosevelt Brown MD [address] [place] [address] Scheduled 1, [place] [address] [place] [address] 08/05/2022 Office Visit ORTHOPEDICS Roosevelt Brown MD [address] [place] [address] Scheduled 1, [place] [address] [place] [address] documented as of this encounter Procedures Procedure Name Priority Date/Time Associated Diagnosis Comme nts TELEMETRY STRIPS 06/19/2022 4:44 PM Resul ts for this CDT procedure are i n the results section. documented in this encounter Results TELEMETRY STRIPS (06/19/2022 4:44 PM CDT) Narrative 06/19/2022 4:44 PM CDT This result has an attachment that is no t available. Ordered by an unspecified provider. Provider Unknown ECHO documented in this encounter Visit Diagnoses Not on filedocumented in this encounter Care Teams Calender Wind Up Helper Relationship Specialty Start Date End Date Lore Au, PT Physical Therapist Physical Therapy 07/09/22 [address] [place] [address] documented as of this encounter
--- OUTSIDE RECORDS SUMMARY | 2022-07-17 10:15 | XMS_ITS | Encounter Summary ---
:1975 Author Organization [facility] Address [address] [place] [address] Phone Care Team Providers Name Role Phone [...] RADIOLOGY Roosevelt Brown MD [address] [place] [address] Scheduled 1, [place] [address] [place] [address] 07/22/2022 Office Visit ORTHOPEDICS Miri Matthew MD [address] [place], [place] [address] Scheduled 1, [place] [address] [place] [address] 07/22/2022 Office Visit Interventional Radiology Provider, Hesham haq Scheduled 1, [place] [address] [place] [address] 07/25/2022 Appointment RADIOLOGY Patrice Hollins MD [address] [address] Scheduled 1, [place] [address] [place] [address] 07/25/2022 Office Visit NEUROSURGERY Briana Kaplan PA -C [address] [place] [address] Scheduled 1, [place] [address] [place] [address] 07/25/2022 Appointment PHYSICAL MEDICINE AND REHAB Lore Aguilar PT Scheduled [address], [place] [address] (Wo rk) 08/05/2022 Appointment ORTHOPEDICS 1, [place] Scheduled [address] [place] [address] 08/05/2022 Appointment RADIOLOGY Roosevelt Brown MD [address] [place] [address] Scheduled 1, [place] [address] [place] [address] 08/05/2022 Appointment RADIOLOGY Roosevelt Brown MD [address] [place] [address] Scheduled 1, [place] [address] [place] [address] 08/05/2022 Office Visit ORTHOPEDICS Roosevelt Brown MD [address] [place] [address] Scheduled 1, [place] [address] [place] [address] documented as of this encounter Procedures Procedure Name Priority Date/Time Associated Diagnosis Comme nts TELEMETRY STRIPS 06/19/2022 9:02 AM Resul ts for this CDT procedure are i n the results section. documented in this encounter Results TELEMETRY STRIPS (06/19/2022 9:02 AM CDT) Narrative 06/19/2022 9:02 AM CDT This result has an attachment that is no t available. Ordered by an unspecified provider. 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
--- OUTSIDE RECORDS SUMMARY | 2022-07-17 10:15 | XMS_ITS | Encounter Summary ---
:1975 Author Organization [facility] Address [address] [place] [phone] Phone Care Team Providers Name Role Phone [...] RADIOLOGY Roosevelt Brown MD [address] [place] [address] Scheduled 1, [place] [address] [place] [address] 07/22/2022 Office Visit ORTHOPEDICS Miri Matthew MD [address] [place], [place] [phone] Scheduled 1, [place] [address] [place] [address] 07/22/2022 Office Visit Interventional Radiology Provider, Hesham haq Scheduled 1, [place] [address] [place] [address] 07/25/2022 Appointment RADIOLOGY Patrice Hollins MD [address] [address] Scheduled 1, [place] [address] [place] [address] 07/25/2022 Office Visit NEUROSURGERY Briana Kaplan PA -C [address] [place] [address] Scheduled 1, [place] [address] [place] [address] 07/25/2022 Appointment PHYSICAL MEDICINE AND REHAB Lore Aguilar PT Scheduled [address], [place] [address] (Wo rk) 08/05/2022 Appointment ORTHOPEDICS 1, [place] Scheduled [address] [place] [address] 08/05/2022 Appointment RADIOLOGY Roosevelt Brown MD [address] [place] [address] Scheduled 1, [place] [address] [place] [address] 08/05/2022 Appointment RADIOLOGY Roosevelt Brown MD [address] [place] [address] Scheduled 1, [place] [address] [place] [address] 08/05/2022 Office Visit ORTHOPEDICS Roosevelt Brown MD [address] [place] [address] Scheduled 1, [place] [address] [place] [address] documented as of this encounter Procedures Procedure Name Priority Date/Time Associated Diagnosis Comme nts TELEMETRY STRIPS 06/19/2022 1:30 AM Resul ts for this CDT procedure are i n the results section. documented in this encounter Results TELEMETRY STRIPS (06/19/2022 1:30 AM CDT) Narrative 06/19/2022 1:30 AM CDT This result has an attachment that is no t available. Ordered by an unspecified provider. Provider Unknown ECHO documented in this encounter Visit Diagnoses Not on filedocumented in this encounter Care Teams Sole Splitter Relationship Specialty Start Date End Date Lore Au, PT Physical Therapist Physical Therapy 07/09/[address] [place] [address] documented as of this encounter
--- OUTSIDE RECORDS SUMMARY | 2022-07-17 10:15 | XMS_ITS | Encounter Summary ---
:1975 Author Organization [facility] Address [address] [place] [phone] Phone Care Team Providers Name Role Phone [...] RADIOLOGY Roosevelt Brown MD [address] [place] [address] Scheduled 1, [place] [address] [place] [address] 07/22/2022 Office Visit ORTHOPEDICS Miri Matthew MD [address] [place], [place] [phone] Scheduled 1, [place] [address] [place] [address] 07/22/2022 Office Visit Interventional Radiology Provider, Hesham haq Scheduled 1, [place] [address] [place] [address] 07/25/2022 Appointment RADIOLOGY Patrice Hollins MD [address] [address] Scheduled 1, [place] [address] [place] [address] 07/25/2022 Office Visit NEUROSURGERY Briana Kaplan PA -C [address] [place] [address] Scheduled 1, [place] [address] [place] [address] 07/25/2022 Appointment PHYSICAL MEDICINE AND REHAB Lore Aguilar PT Scheduled [address] [address] (Wo rk) 08/05/2022 Appointment ORTHOPEDICS 1, [place] Scheduled [address] [place] [address] 08/05/2022 Appointment RADIOLOGY Roosevelt Brown MD [address] [place] [address] Scheduled 1, [place] [address] [place] [address] 08/05/2022 Appointment RADIOLOGY Roosevelt Brown MD [address] [place] [address] Scheduled 1, [place] [address] [place] [address] 08/05/2022 Office Visit ORTHOPEDICS Roosevelt Brown MD [address] [place] [address] Scheduled 1, [place] [address] [place] [address] documented as of this encounter Procedures Procedure Name Priority Date/Time Associated Diagnosis Comme nts TELEMETRY STRIPS 06/20/2022 9:37 AM Resul ts for this CDT procedure are i n the results section. documented in this encounter Results TELEMETRY STRIPS (06/20/2022 9:37 AM CDT) Narrative 06/20/2022 9:37 AM CDT This result has an attachment that is no t available. Ordered by an unspecified provider. 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
--- OUTSIDE RECORDS SUMMARY | 2022-07-17 10:16 | XMS_ITS | Encounter Summary ---
:1975 Author Organization [facility] Address [address] [facility] [place] [address] Phone Care Team Providers Name Role Phone Unavailable Primary Care Provider Unavailable Reason for Visit Reason Comments Fall Auth/Cert (Routine) Specialty Diagnoses / Procedures Referred By Contact Refer red To Contact SURGERY Diagnoses Fall, initial encounter Erasmo Gonzalez MD [address] [facility] [address] [place], [place] [address] [phone] [place] [address] Phone: Fax: Referral ID Status Reason Start Date Expiration Date Visits Requ ested Visits Authorized [id number] 1 1 Encounter Details Date Type Department Care Team Description 06/18/2022 Surgery OR P4 Roosevelt Brown MD ORIF, PELVIS [address] [facility] [address] [place] [address] [place], [place] [address] [phone] Social History Tobacco Use Types Packs/Day Years [...] Sign Reading Time Taken Comments Blood Pressure 134/80 06/18/2022 7:30 PM CDT Pulse 99 06/18/2022 7:30 PM CDT Temperature 37.1 ??C (98.8 ??F) 06/18/2022 6:40 PM CDT Respiratory Rate 15 06/18/2022 7:30 PM CDT Oxygen Saturation 96% 06/18/2022 7:30 PM CDT Inhaled Oxygen Concentration - - [...] TRAUMA DISCHARGE SUMMARY - PGY 1 Kesha GlassIbisSusanharilexie : 1975 Sex: male Date of Admission: [...] No focal deficits appreciated on gross examination Fruit Or Nut Grower Needed: yes- Barbadian [35] PLANNED DISCHARGE ORDERS: Suture/Paulette: Location right [...] address): ___ Patient Address: C/o Shawnee Bolivar [address] [place] [id number] Question Response Notes Effective date for equipment/supply 06/25/2022 Medical necessity for order (qualifying diagnosis) sacral fracture, right acetabular fracture, T12 compression fracture, right distal radius fracture Length of time equipment/supply needed 12 months Monthly quantity . Vendor Information [employer]; ph: [phone], fx: [phone] XR SPINE THORACOLUMBAR 2 VIEW Question Response [...] Yes Antitippers Yes Vendor Information [employer]; ph: [phone], fx: [phone] DME JUSTIFICATION OF NEED FOR EXTENDED TUB [...] PLEASE CALL the Patient Access Center at [phone] to schedule the following appointment(s) Question Response Notes Specify time frame 1 Month Reason for Visit? Evaluate need for continued IVC Filtration Provider Type? Any available Provider Clinic Location? [facility] Specialty: Interventional Radiology Schedule Appointment - [facility] Ortho Cl Order Notes PLEASE CALL the Patient Access Center at [phone] to schedule the following appointment(s) Question Response Notes Specify time frame 2 Weeks Reason for Visit? Post op follow up, hospitalization. S/p ORIF right SI joint Provider Type? Any available Provider Clinic Location? [facility] Specialty: Orthopedics Schedule Appointment in Neurosurgery- [facility] Clinic Order Notes Schedule Appointment in Neurosurgery Clinic - [facility] Neurosurgery Clinic Direct Line: [phone] [place] [address] Clinic Hours: 8 AM - 4:30 PM M-F Question Response Notes Specify time frame 6 Weeks Reason for Visit? Follow up T12 and lumbar fractures Provider Type? [facility] Clinic Location? [facility] Specialty: Neurosurgery Imaging? [...] your doctor [facility]. When should I be concerned? Order [...] 4 PM): Call the Radiology department at [phone] After hours or on Holidays: Call the [facility] candle extrusion machine operator . Ask the candle extrusion machine operator to page the Interventional Radiologist irrigation pump installer. IF: -- hives or new itching the [...] wet, you can dry it with a division chair set to cool/warm; call the Orthopaedic Clinic at [phone] if the cast remains soft. -- Cover [...] wet, you can dry it with a division chair set to cool/warm; call the Orthopaedic Clinic at [phone] if the cast remains soft. -- Cover [...] -- Read all labels for prescription and Chlf-vss-rndgjuv medicines. Ask the pharmacist if your prescription [...] taking these medications acetaminophen 325 mg tablet Toxey 3 tabletas (975 mg) por la boca [...] (5 mg) by mouth 3 times daily. Toxey 1 tableta (5 mg) por la boca [...] (400 mg) by mouth 3 times daily. Toxey 1 capsula (400 mg) por la boca 3 veces al porsche. hydrOXYzine pamoate 25 mg capsule Commonly known as: VISTARIL Take 1-2 capsules (25-50 mg) by mouth every 4 hours as needed (pain adjunct (give with opioid)).Toxey 1-2 c??psulas (25-50 mg) por v??a oral cada 4 horas seg??n sea necesario (complemento para el dolor (administrar con opioide)). melatonin 3 mg tablet Take 1 tablet (3 mg) by mouth at bedtime as needed for Sleep. Toxey 1 tableta (3 mg) por la boca a lahora de acostrase. oxyCODONE 5 mg tablet Commonly known as: ROXICODONE Toxey 1 tableta (5 mg) por la boca cada 4 horas rock sea necesario para el dolor. (Take 1 tablet (5 mg) by mouth every 4 hours as needed for Pain.) polyethylene glycol 3350 17 gm/scoop powder Commonly known as: MIRALAX/GLUCOLAX Take 17 g by mouth twice daily.Take 1 capful to 17 gm cuate mixed with full glass of water twice every day as directed.Toxey 17 g por v??a oral dos veces al d??a. Toxey 1 tap??n hasta la minerva de 17 g mezclado con un vaso lleno de agua dos veces al d??a seg??n las indicaciones. * Xarelto 15 mg tablet Generic drug: rivaroxaban Take 1 tablet (15 mg) by mouth twice daily with meals for 21 days. Indications: Blood Clot in a DeepVein. Toxey 1 tableta (15 mg) por v??a oral dos veces al d??a con las comidas jennifer 21 d??as. 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 Start taking on: June 29, 2022 * rivaroxaban 20 mg tablet Commonly known as: XARELTO Take 1 tablet (20 mg) by mouth daily with evening meal. Indications: Blood Clot in a Deep Vein.(Toxey 1 tableta (20 mg) por v??a oral diariamente con la evonne. 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 Toxey 1 tableta por la boca 2 veces al porsche. sodium chloride 1 gm Tabs Take 2 tablets (2 g) by mouth 4 times daily. TOME DOS TABLETAS ORALMENTE 4 VECES AL PORSCHE tamsulosin 0.4 mg Capsule Commonly known as: FLOMAX Take 1 capsule (0.4 mg) by mouth daily after meal.Take 30 minutes after same meal each day. Do NOT crush or chew.Toxey 1 c??psula (0,4 mg) por v??a oral todos los d??as despu??s de ethan comida. Toxey 30 minutos despu??s de la misma comida [...] Your Medications These medications were sent to [facility] Discharge Pharmacy - [place] [address] Hours: 27/04 acetaminophen 325 mg tablet bisacodyl [...] me are documented. Patrice Hollins M.D., F.A.C.S. [facility] Department of Surgery documented in this [...] per day Discharge Instr - Occupational TherapyTheodora Serrano OTR/Kira - 06/27/2022 8:50 AM CDT Images from the original note were not included. How to Complete Your Self Cares with a TLSO A TLSO (Cxnxdhe-Adjam-Ahyvtd-Orthosis) is a brace designed to immobilize your [...] determine what you need) Extended tub bench Foreign Legal Consultant Long Handled Sponge Raised Toilet Seat with arms Remember : - No weight on your right arm/hand, no pulling and no pushing with right hand. - No weight on right leg - Pivot transfer ONLY on left leg - No walking - Slow down, think before moving Discharge Instr - Speech Language PathologyTheodora Serrano OTR/L - 06/27/2022 8:50 AM CDT {DOGGER Discharge Instructions:[id number]} AttachmentsThe following attachments cannot be sent through Care Everywhere.Cast Care (Barbadian)Forearm and Wrist Fractures ED (Barbadian)Forearm Fracture Discharge Instructions (Barbadian)Radius Fracture (Barbadian)Radius Fracture Discharge Instructions (Barbadian)Pelvic Fracture Discharge Instructions (Barbadian) Pelvic Fracture (Barbadian)Fractures (Barbadian)General Trauma Discharge Instructions (Barbadian)Type 2 Diabetes Discharge Instructions (Barbadian)documented in this encounter Medications at Time of Discharge Medication Sig Dispensed Refills Start Date End Date acetaminophen 325 mg Take 3 tablets (975 120 tablet 0 2021 oral tablet mg) by mouth 3 times daily. hydrOXYzine pamoate Take 1-2 capsules 120 capsule 0 09/22/20 22 (VISTARIL) 25 mg oral (25-50 mg) by mouth capsule every 4 hours as needed (pain adjunct (give with opioid)).Toxey 1-2 c??psulas (25-50 mg) por v??a oral [...] oral by mouth 3 times TABS daily. Toxey 1 tableta (5 mg) por la boca 3 veces al porsche. polyethylene glycol Take 17 g by mouth 510 g 0 06/26/20 22 3350 twice daily.Take 1 (MIRALAX/GLUCOLAX) 17 capful to 17 gm gm/scoop oral powder cuate mixed with full glass of water twice every day as directed.Toxey 17 g por v??a oral dos veces al d??a. Toxey 1 tap??n hasta la minerva de 17 g mezclado con un vaso lleno de agua dos veces al d??a seg??n las indicaciones. sennosides-docusate Take 1 tablet by 40 each 0 06/26/2022 sodium (STOOL mouth twice daily. SOFTENER/LAXATIVE) Toxey 1 tableta por 8.6-50 mg oral tablet la boca 2 veces al porsche. GABApentin (NEURONTIN) Take 1 capsule (400 120 capsule 0 400 mg oral capsule mg) by mouth 3 times daily. Toxey 1 capsula (400 mg) por la boca 3 veces al porsche. tamsulosin (FLOMAX) Take 1 capsule (0.4 10 capsule 0 022 0.4 mg oral capsule mg) by mouth daily after meal.Take 30 minutes after same meal each day. Do NOT crush or chew.Toxey 1 c??psula (0,4 mg) por v??a oral todos los d??as despu??s de ethan comida. Toxey 30 minutos despu??s de la misma comida todos los d??as. No triture ni mastique. melatonin 3 mg oral Take 1 tablet (3 mg) 20 tablet 0 2021 tablet by mouth at bedtime as needed for Sleep. Toxey 1 tableta (3 mg) por la boca [...] Thrombosis Indications: Blood Clot in a Deep Vein.(Toxey 1 tableta (20 mg) por v??a oral diariamente con la box office agent. 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 rivaroxaban (XARELTO) Take 1 tablet (15 42 tablet 0 022 07/20/2022 15 mg oral mg) by mouth twice tabletIndications: daily with meals for Deep Vein Thrombosis 21 days. Indications: Blood Clot in a Deep Vein. Toxey 1 tableta (15 mg) por v??a oral [...] Inject 0.4 mL (40 3 each 0 09/23/06/29/2022 40 mg/0.4 mL Injection mg) subcutaneously SOSY [...] family if they call back with questions. A TT Theodora Serrano OTR/L - 06/27/2022 10:04 AM CDT Occupational Therapy [...] w/ Precautions?: Yes (with some occasional reminders) Fruit Or Nut Grower Used: No, certified bilingual staff SUBJECTIVE: Cooperative [...] assisting with supervision and 1-2 tips from senior technical writer Upper Body Dressing Techniques & Equipment: [...] Functional activity: 15 minutes CLAUDIO Cordero Pager: [facility] OT Department Neal Phillips, HARDWOOD SAWYER - 06/27/2022 9:42 AM CDT Problem: Decreased Transfer Skills Goal: Patient will transfer supine to/from sit Description: Patient will transfer supine to/from sit with (6) Modified [place] in the TLSO w/othe use of his [...] (Numeric): 4 (improved) Participation Significantly Limited?: No O:Fruit Or Nut Grower Used: Yes, [facility] florist helper Mental Status Mental Status: Alert;Cooperative;Follows 3 step [...] own equipment. Neal Phillips PTA 06/27/2022 Pager: [employer] PT Dept Joce Villareal MD - 06/27/2022 [...] - ok for L LE pivot transfer) Fruit Or Nut Grower Used: No, certified bilingual staff SUBJECTIVE: Cooperative [...] assisting with supervision and 1-2 tips from senior technical writer Lower Body Dressing: Maximal assist (25% [...] Functional Activity 15 minutes JACKELIN Cordero/Kira Pager: [employer] OT Department Patrice Hollins MD - 06/26/2022 [...] vital signs normal. Euvolemic on exam. Asymptomatic. [id number] LR post procedurally 06/24. Has not received [...] Hollins MD, 06/30/2022 9:13 AM Neal Phillips, HARDWOOD SAWYER - 06/26/2022 9:03 AM CDT Problem: Decreased Transfer Skills Goal: Patient will transfer supine to/from sit Description: Patient will transfer supine to/from sit with (6) Modified [place] in the TLSO w/othe use of his [...] (Numeric): 4 (improved) Participation Significantly Limited?: No O:Fruit Or Nut Grower Used: Yes, [facility] florist helper Mental Status Mental Status: Alert;Cooperative;Follows 3 step [...] set-up and management. Increase tolerance for sitting. HARDWOOD SAWYER Appropriate: Yes Neal Phillips, SKYLER 06/26/2022 Pager: [facility] PT Dept Chintan Valadez MD - 06/26/2022 [...] (assisted with transferring pt back to bed) O:Fruit Or Nut Grower Used: Yes, [facility] florist helper Mental Status Mental Status: Alert;Cooperative;Follows 3 step [...] by PT. She also assisted pt with qmnxuf-ho-djm transfer. Pt required just standby assist for [...] with assisting with wheelchair set-up and management. HARDWOOD SAWYER Appropriate: Yes Alize Stevens, PT 06/25/2022 Pager: [facility] PT Dept Problem: Decreased Transfer Skills Goal: Patient will transfer supine to/from sit Description: Patient will transfer supine to/from sit with (6) Modified [place] in the TLSO w/othe use of his [...] be able to roll with (6) Modified [place] using log roll technique w/o the use of his RUE while maintaining both spinal and WB restrictions in order to demonstrate improved function and D/C by 06/28. Outcome: Met Theodora Serrano, OTR/Kira - 06/25/2022 10:56 AM CDT Occupational Therapy [...] - ok for L LE pivot transfer) Fruit Or Nut Grower Used: No, certified bilingual staff SUBJECTIVE: Cooperative [...] assisting with supervision and 1-2 tips from senior technical writer Lower Body Dressing: Maximal assist (25% [...] with G2 and Staff. Alize Herrera, MS, 06/25/2022 8:18 AM RESIDENT WITH STUDENT: Jorgito [...] Eval and treat. Follow-up: Clinic with Dr. Templeman in 2 weeks AP/inlet/outlet pelvic x-rays needed. [...] Value Date/Time WBC 11.29 (H) 06/24/2022 0543 WBC 10.55 (H) 06/22/2022 05 WBC 7.23 06/20/2022 0557 HGB 12.0 (L) 06/24/2022 05 HGB 10.1 (L) 06/22/2022 0525 HGB 9.0 (L) 06/20/2022 0557 PLT 527 (H) 06/24/2022 0543 PLT 378 [...] 9.7 06/25/2022 0551 NEUTNO 10.31 (H) 06/15/2022 1920 LYMPHAB 2.74 06/15/2022 1920 MONOABSNO 0.67 06/15/2022 192 EOSNUMB 0.20 06/15/2022 [...] PT recommended * (when cleared to ambulate) (06/24/221099) Equipment Status: Team notified of equipment recommendation (06/24/22 1100) PT Equipment Recommended: Manual wheelchair (06/24/22 1100) S: Pt reports It feels good to be out of the room and sitting in a chair. Pain Pain Rating With Activity (Numeric): 7 (back) Participation Significantly Limited?: No Intervention: Positioning;Other (RN notified pt received pain meds about 30 minutes prior to arrival) O: Fruit Or Nut Grower Used: No, certified bilingual staff Name or Reference Number (phone): [id number] Mental Status Mental Status: Alert;Cooperative;Follows 1 step [...] OR and requesting PT assist pt to [facility] Clinical Coordinator: Notified recommending 16 WC with ELR, removeable armrests, anti-tippers and cushion Family: and daughter present, educated regarding WC size considerations and equipment recs for 16 WC with B ELR and removable armrests Fall Risk Assessment: None of the above Positioning: Pt transferred to [facility] in prep for surgery at end [...] have family re-demo WC part management . HARDWOOD SAWYER Appropriate: Yes Charlene Lindo, PT 06/24/2022 Pager: [facility] PT Dept Problem: Decreased Transfer Skills Goal: Patient will roll Description: Patient will be able to roll with (6) Modified [place] using log roll technique w/o the use of his RUE while maintaining both spinal and WB restrictions in order to demonstrate improved function and D/C by 06/28. Outcome: In progress Goal: Patient will transfer supine to/from sit Description: Patient will transfer supine to/from sit with (6) Modified [place] in the TLSO w/othe use of his [...] - ok for L LE pivot transfer) Fruit Or Nut Grower Used: No, certified bilingual staff SUBJECTIVE: Cooperative Chrisyt paniagua, maria ao germain silva I am [...] assisting with supervision and 1-2 tips from senior technical writer Upper Body Dressing Techniques & Equipment: [...] is only present while pushing against something. Pitman nauseous upon waking, dry heaved. Able to [...] me are documented. Patrice Hollins M.D., F.A.C.S. [facility] Department of Surgery Korin Garcia MD [...] for OR today. Hopefully this afternoon or bid analyst - Plan to convert right short arm [...] control on orals, and medical stability. S: NAEEM AF, VSS, RA. Pain well controlled, hopeful [...] 06/23/2022 12:50 PM CDT Problem: Loss of Goleta With ADLs, Risk for Goal: Patient-specific goals [...] push/pull/place weight in RUE- ok through elbow) Fruit Or Nut Grower Used: Yes, agency or phone florist helper ([facility] phone/video florist helper) SUBJECTIVE: I'm getting really warm. Can I [...] assisting with supervision and 1-2 tips from senior technical writer Upper Body Dressing Techniques & Equipment: [...] care/Home mgmt/ADL: 30 minutes JACKELIN Fernandez/Kira Pager: [employer] OT Department Reshma Hackett OTR/Kira, 06/23/2022 4:09 [...] revisions by me aredocumented. Patrice Hollins M.D., Dyllan. [facility] Department of Surgery Linda Lei MD [...] Pulse: 84 88 62 Resp: 16 16 16 16 Temp: 36.8 ??C (98.2 ??F) [...] Pulse: 95 93 88 82 Resp: 16 Temp: 37 ??C (98.6 ??F) 36.9 [...] [place] - 06/20/2022 10:26 AM CDT [facility] O&P Patient was seen to check fit of TLSO. Patient reports TLSO is fitting well with no reported discomfort. He and his were instructed on proper wear and care. Please call with any questions or concerns. Aman Pichardo X RAY INSPECTOR Danette O&P [phone] Linda Au MD - 06/20/2022 5:36 AM [...] Per nursing report, patient was bladder scanned [id number] retained, so he underwent straight catheterization. He [...] medical stability. S: NAEON, AF, VSS, RA. Resting comfortably this am. [...] NOTE - MS3/PGY 1 Blue Surgery Kesha GlassIbisSusanmoe : 1975 Sex: male ASSESSMENT/PLAN: 46 y.o.male [...] HGB 13.0 (L) 06/15/20221919 HGB 13.7 06/15/2022 1920 PLT 191 06/18/2022 0450 PLT 181 06/17/2022 [...] IN NOTE D: Patient transferred in to [facility] from PACU at 1950. Patient condition on arrival: stable. Patient Belonging 06/16/2022 0110 Patient or family informed of Patient Valuables and Belongings Policy (#[id number]): Due to patient condition, [facility] staff will inventory and secure patient valuables [...] me are documented. Patrice Hollins M.D., Dyllan. [facility] Department of Surgery Alpesh Live MD [...] diet and advance diet as tolerated. Likely for OR thursday for pelvis fixation. Recommend [...] HGB 13.7 06/15/2022 192 PLT 191 06/18/2022 045 PLT 181 06/17/2022 0507 PLT 294 06/15/2022 [...] None Transportation Used for Discharge: family will hand picker Safety Concerns: None Behavioral Health Concerns: None Primary Insurance: N/A Secondary Insurance: N/A PLAN Plan/Interventions Discharge Plan: Home Risks for Readmission: None SUMMARY Patient would like to DC home where could help. He is uninsured. He has received 3 doses of Covid vaccine training and quality manager will continue to follow until [...] Ultrasound of venous lower extremity bilaterally: pending SharonAlize, MS, 06/17/2022 10:49 AM I Linda Au [...] revisions by me aredocumented. Patrice Hollins M.D., Bertrand.A.C.S. [facility] Department of Surgery Resident: Linda Au [...] Arm Pulse: 98 98 104 77 Resp: 14 Temp: 37.3 ??C (99.1 ??F) 37.4 [...] will return to fit when able. Aman Thurow X RAY INSPECTOR Juanklgeorgette O&P [phone] Narciso [place] - 06/16/2022 12:08 PM [...] today for fitting and delivery. Aman Thurow X RAY INSPECTOR Winkley O&P [phone] Edna Ibrahim MDIV - 06/16/2022 9:36 AM CDT SPIRITUAL CARE VISIT SUMMARY Kesha Hill : 1975 Sex: male LOS: 0 days Reason for visit: Referral Assessment: Pt/family uncertain/anxious/frustrated Intervention: Engage theological concerns;Compassionate support;Facilitate communication;Lead/support spiritual rituals Outcome: Situation assessed;Gratitude expressed;Pt/family report increased sense of peace/spiritual well-being;Stress observed as lessened;Ritual provided Notes: Provided supportive presence for Barbadian speaking, Ghanaian pt (with use of head banquet waiter/waitress). Pt was in pain, and consented to healing touch being provided. He indicated that this practice assisted with his pain. Pt spoke about his recent move to [place], and how he likes it there, and likes living with his Gloria there. Pt was able to speak with the nurse about his pain, and communicate that to her. He welcomed prayer, which this provider offered in Barbadian. Edna has completed levels one and two of Healing Touch and level one of Reiki. This is an energy based, gentle (limited) touch healing modality, and this patient or patient's family consented to this practice. Plan: Spiritual Care Team is available to support patient and family as needed via pager [phone]. Edna Ibrahim MDIV, 06/16/2022 9:36 AM Pager: [phone] Oanh Moore MD - 06/16/2022 6:02 AM [...] elbow flex/ext. 5/5 wrist flex/ext. 5/5 hand labeling associate. LUE: 5/5 shoulder abduction. 5/5 elbow flex/ext. 5/5 wrist flex/ext. 5/5 hand labeling associate. Lower Extremities: RLE: 0/5 hip flexion. 0/5 [...] this hospital admission S: NAEON, AF, VSS, RA. Doing reasonably well. No new [...] Narvaez MD - 06/16/2022 12:00 [place] [address] [facility]#: [id number] PATIENT: KESHA HILL : 1975 DATE DICTATED: 06/16/2022 SURGERY STAFF DAILY PROGRESS NOTE DATE OF SERVICE: 06/16/2022 I saw and evaluated the patient. I discussed management with residents, DELTA SYSTEM FREIGHT CAR CLEANER, and PAs on the Neurosurgery team and [...] MD Staff Physician Neurosurgery Service Received in Cloth Shearing Supervisor: 06/16/2022 18:59:09 M: /[id number] TB/MODL Patrice Hollins MD - 06/15/2022 7:18 PM CDT Trauma Staff I was notified via the trauma pager at: [phone] I evaluated/examined this patient at: aRRIVAL The patient arrived at: 06/15/2022 7:15 PM I was pre-notified: Yes Switchboard. Trauma Level: Tier 2 Staff Summary (full note will be with the resident H&P): Fell from [facility], 30 ft. Will plan head/c-spine/chest/abd/pelvis CT scan. Patrice Hollins MD, 06/15/2022 7:18 PM documented in this encounter H&P Notes Patrice Hollins MD - 06/15/2022 7:18 PM CDT TRAUMA SURGERY HISTORY AND PHYSICAL - PGY 1 Kesha Luisa : 1975 Sex: male Patient Arrival Date [...] file Social History Narrative Patient lives in [place], [place]. He is single and employed. Family [...] (06/15/221926) Temp: 36.3 ??C (97.3 ??F) (06/15/221929) [place] Coma Scale: Motor 6=Obeys commands Verbal 5=Oriented [...] diagnostic studies, procedures and surgery) Admit to [facility] Tra[facility] Surgery Service Ortho Consult paged out at STAT. Neurosurgery consult paged out at 1945 Cardiac Monitoring Frequent neuro checks, CMS checks Incentive Spirometer Bedrest with C, T, & L spine precautions C-spine exam and possible clearance once final reads posted NPO until final reads on radiography Consult DOGGER and keep strict NPO if DOGGER consult not indicated at this time PT/OT [...] me are documented. Patrice Hollins M.D., F.A.C.S. [facility] Department of Surgery documented in this [...] Hill at 1215 Patient transported back to [facility] via Bed. Accompanied by Tech and RN [...] John Leon MD Orthopaedic Surgery, PGY3 Pager: [phone] documented in this encounter Consult Notes Sultana Nuñez, PharmD - 06/26/2022 4:10 PM CDTAssociated Order(s): DISCHARGE MED REC FINAL REVIEW BY PHARMACY PHARMACY DISCHARGE NOTE Kesha Hill : 1975 Sex: male Pharmacy service was consulted for review of patient's discharge medications. Planned discharge medications are: Medication List Medications Indications acetaminophen 325 mg tablet Toxey 3 tabletas (975 mg) por la boca [...] (5 mg) by mouth 3 times daily. Toxey 1 tableta (5 mg) por la boca [...] (400 mg) by mouth 3 times daily. Toxey 1 capsula (400 mg) por la boca 3 veces al porsche. glipiZIDE XL 10 mg extended release tablet Generic drug: glipiZIDE XL Take 1 tablet (10 mg) by mouth daily. Indications: Type 2 Diabetes Indications: Type 2 Diabetes hydrOXYzine pamoate 25 mg capsule Commonly known as: VISTARIL Take 1-2 capsules (25-50 mg) by mouth every 4 hours as needed (pain adjunct (give with opioid)).Toxey 1-2 c??psulas (25-50 mg) por v??a oral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 / / Volume Laterality Blood 06/26/2022 4:01 PM CDT Kingston Castañeda MD LABORATORY Performing Organization Address [facility] Phon e Number [facility] [place] - POINT OF CARE [address] [place] [address] (ABNORMAL) POC GLUCOSE (06/26/2022 11:17 AM CDT) athologist Signature POC Glucose 211 (H) 70 - 100 [facility] mg/dL CAMPUS - POINT OF CARE Specimen (Source) Anatomical Collection Method Collection Time Re ceived Time Location / / Volume Laterality Blood 06/26/2022 11:17 AM CDT Kingston Castañeda MD LABORATORY Performing Organization Address [facility] Phon e Number [facility] - POINT OF CARE [address] [place] [address] (ABNORMAL) POC GLUCOSE (06/26/2022 7:01 AM CDT) athologist Signature POC Glucose 150 (H) 70 - 100 [facility] mg/dL [place] - POINT OF CARE Specimen (Source) Anatomical Collection Method Collection Time Re ceived Time Location / / Volume Laterality Blood 06/26/2022 7:01 AM CDT Kingston Castañeda MD LABORATORY Performing Organization Address [facility] Phon e Number [facility] - POINT OF CARE [address] [place] [address] (ABNORMAL) PANEL LIPID (06/26/2022 6:41 AM CDT) athologist Signature Cholesterol 128 <=200 mg/dL [facility] Comment: Interpretive Data <200 Desirable 200-239 Borderline high >=240 High Triglyceride 178 (H) <=150 mg/dL [facility] Comment: Interpretive Data <150 Normal 150-199 Borderline high 200-499 High >=500 Very high HDL 31 (L) >=40 mg/dL [facility] Comment: Interpretive Data Normal > 40 Male > 50 Female Calc LDL 61 <=100 mg/dL [facility] Comment: Interpretive Data <100 Desirable 100-129 Above desirable 130-159 Borderline high 160-189 High >=190 Very high Non-HDL Cholesterol Calculated 97 <=130 mg/dL [facility] Comment: Interpretive Data <130 Desirable 130-159 Above desirable 160-189 Borderline high 190-219 High >=220 Very high Specimen Anatomical Collection Method Collection Time Receive d Time (Source) Location / / Volume Laterality Blood 06/26/2022 6:41 AM 2 CDT 12:54 PM CDT Narrative [facility] - 06/26/2022 1:12 PM CDT Fasting: No Patrice Hollins MD LABORATORY Performing Organization Address City/[facility]/ZIP Code Phon e Number [facility] [place] [address] (ABNORMAL) PANEL RENAL (06/26/2022 6:41 AM CDT) athologist Signature Sodium 131 (L) 135 - 148 [facility] mEq/L Potassium 4.1 3.5 - 5.3 [facility] mEq/L Chloride 93 92 - 108 [facility] mEq/L CO2 27 22 - 30 [facility] mEq/L AnGap 11 8 - 16 [facility] mEq/L Glucose 151 (H) 70 - 100 [facility] mg/dL BUN 15 6 - 20 [facility] mg/dL Creatinine 0.69 (L) 0.70 - 1.25 [facility] mg/dL Calcium 8.9 8.6 - 10.0 [facility] mg/dL Albumin 3.5 (L) 3.8 - 5.1 [facility] g/dL Phosphorus 4.3 2.5 - 4.5 [facility] mg/dL eGFR, High >120 >=60 [facility] ml/min/1.73 m2 Comment: Calculated using CKD-EPI equati on eGFR, Low 115 >=60 ml/min/1.73m2 [facility] Comment: Calculated using CKD-EPI equati on Specimen Anatomical Collection Method Collection Time Receive d Time (Source) Location / / Volume Laterality Blood 06/26/2022 6:41 AM 2 7:47 CDT AM CDT Patrice Hollins MD LABORATORY Performing Organization Address City/[facility]/ZIP Code Phon e Number [facility] [place] [address] (ABNORMAL) CBC WITH PLATELET (06/26/2022 6:41 AM CDT) athologist [facility] WBC 12.28 (H) 4.00 - [facility] 10.00 k/cmm RBC 3.46 (L) 4.60 - 6.00 [facility] m/cmm Hgb 9.7 (L) 13.1 - 17.5 [facility] g/dL Hematocrit 29.3 (L) 40.0 - 51.0 [facility] % MCV 84.7 80.0 - [facility] 100.0 fL MCH 28.0 25.0 - 32.0 [facility] pg MCHC 33.1 31.0 - 36.0 [facility] g/dL RDW 13.3 11.5 - 14.5 [facility] % Plt 516 (H) 150 - 400 [facility] k/cmm MPV 10.9 6.5 - 12.5 [facility] fL Specimen Anatomical Collection Method Collection Time Receive d Time (Source) Location / / Volume Laterality Blood 06/26/2022 6:41 AM 7:47 CDT AM CDT Patrice Hollins MD LABORATORY Performing Organization Address City/[facility] Phon e Number [facility] [place] [address] (ABNORMAL) POC GLUCOSE (06/25/2022 8:45 PM CDT) athologist [facility] POC Glucose 159 (H) 70 - 100 [facility] mg/dL CAMPUS - POINT OF CARE Specimen (Source) Anatomical Collection Method Collection Time Re ceived Time Location / / Volume Laterality Blood 06/25/2022 8:45 PM CDT Kingston Castañeda MD LABORATORY Performing Organization Address City/State/ZIP [facility] Phon e Number [facility] - POINT OF CARE [address] [place] [id number] OSMOLALITY,URINE-RANDOM ASIA (06/25/2022 5:08 PM CDT) athologist [facility] Urine Osmo [phone] - 800 [facility] mOsm/Kg Specimen Anatomical Collection Method Collection Time Receive d Time (Source) Location / / Volume Laterality Urine 06/25/2022 5:08 PM 2 5:39 CDT PM CDT Patrice Hollins MD LABORATORY Performing Organization Address City/[facility]/ZIP Code Phon e Number [facility] [place] [address] (ABNORMAL) SODIUM,URINE-RANDOM ASIA (06/25/2022 5:08 PM CDT) athologist Signature Sodium Urine 30 (L) 40 - 200 [facility] mEq/L Specimen Anatomical Collection Method Collection Time Receive d Time (Source) Location / / Volume Laterality Urine 06/25/2022 5:08 PM 5:39 CDT PM CDT Patrice Hollins MD LABORATORY Performing Organization Address [facility]/ZIP Code Phon e Number [facility] [place] [address] (ABNORMAL) POC GLUCOSE (06/25/2022 4:09 PM CDT) athologist Signature POC Glucose 150 (H) 70 - 100 [facility] mg/dL CAMPUS - POINT OF CARE Specimen (Source) Anatomical Collection Method Collection Time Re ceived Time Location / / Volume Laterality Blood 06/25/2022 4:09 PM CDT Kingston Castañeda MD LABORATORY Performing Organization Address [facility]/ZIP Code Phon e Number [facility] [place] - POINT OF CARE [address] [place] [phone] PELVIS NO IV CON+ 3D RECON [...] POC Glucose 188 (H) 70 - 100 [facility] mg/dL CAMPUS - POINT OF CARE Specimen (Source) Anatomical Collection Method Collection Time Re ceived Time Location / / Volume Laterality Blood 06/25/2022 11:26 AM CDT Kingston Castañeda MD LABORATORY Performing Organization Address City/[facility]/ZIP Code Phon e Number [facility] - POINT OF CARE [address] [place] [address] (ABNORMAL) POC GLUCOSE (06/25/2022 5:59 AM CDT) athologist Signature POC Glucose 126 (H) 70 - 100 [facility] mg/dL CAMPUS - POINT OF CARE Specimen (Source) Anatomical Collection Method Collection Time Re ceived Time Location / / Volume Laterality Blood 06/25/2022 5:59 AM CDT Kingston Castañeda MD LABORATORY Performing Organization Address City/[facility]/ZIP Code Phon e Number [facility] - POINT OF CARE [address] [place] [phone] OSMOLALITY SERUM (06/25/2022 5:51 AM CDT) athologist Signature Serum Osmo [phone] [facility] mOsm/Kg Specimen Anatomical Collection Method Collection Time Receive d Time (Source) Location / / Volume Laterality Blood 06/25/2022 5:51 AM 2 4:44 CDT PM CDT Patrice Hollins MD LABORATORY Performing Organization Address City/[facility] Code Phon e Number [facility] [place] [address] (ABNORMAL) PANEL RENAL (06/25/2022 5:51 AM CDT) athologist Signature CO2 28 22 - 30 [facility] mEq/L Glucose 144 (H) 70 - 100 [facility] mg/dL BUN 19 6 - 20 [facility] mg/dL Creatinine 0.78 0.70 - 1.25 [facility] mg/dL Calcium 9.1 8.6 - 10.0 [facility] mg/dL Albumin 3.4 (L) 3.8 - 5.1 [facility] g/dL Phosphorus 4.1 2.5 - 4.5 [facility] mg/dL eGFR, High >120 >=60 [facility] ml/min/1.73 m2 Comment: Calculated using CKD-EPI equati on Sodium 131 (L) 135 - 148 mEq/L [facility] Potassium 4.5 3.5 - 5.3 mEq/L [facility] Chloride 94 92 - 108 mEq/L [facility] eGFR, Low 109 >=60 ml/min/1.73m2 [facility] Comment: Calculated using CKD-EPI equati on AnGap 9 8 - 16 mEq/L [facility] Specimen Anatomical Collection Method Collection Time Receive d Time (Source) Location / / Volume Laterality Blood 06/25/2022 5:51 AM 2 6:23 CDT AM CDT Patrice Hollins MD LABORATORY Performing Organization Address City/[facility]/ZIP Code Phon e Number [facility] [place] [address] (ABNORMAL) CBC WITH PLATELET (06/25/2022 5:51 AM CDT) athologist Signature WBC 12.52 (H) 4.00 - [facility] 10.00 k/cmm RBC 3.62 (L) 4.60 - 6.00 [facility] m/cmm Hgb 10.2 (L) 13.1 - 17.5 [facility] g/dL Hematocrit 30.6 (L) 40.0 - 51.0 [facility] % MCV 84.5 80.0 - [facility] 100.0 fL MCH 28.2 25.0 - 32.0 [facility] pg MCHC 33.3 31.0 - 36.0 [facility] g/dL RDW 13.3 11.5 - 14.5 [facility] % Plt 522 (H) 150 - 400 [facility] k/cmm MPV 9.7 6.5 - 12.5 [facility] fL Specimen Anatomical Collection Method Collection Time Receive d Time (Source) Location / / Volume Laterality Blood 06/25/2022 5:51 AM 6:23 CDT AM CDT Patrice Hollins MD LABORATORY Performing Organization Address City/State/ZIP Code Phon e Number [facility] [place] [address] (ABNORMAL) POC GLUCOSE (06/24/2022 9:13 PM CDT) athologist [facility] POC Glucose 211 (H) 70 - 100 [facility] mg/dL CAMPUS - POINT OF CARE Specimen (Source) Anatomical Collection Method Collection Time Re ceived Time Location / / Volume Laterality Blood 06/24/2022 9:13 PM CDT Kingston Castañeda MD LABORATORY Performing Organization Address City/State/ZIP Code Phon e Number [facility] - POINT OF CARE [address] [place] [phone] (ABNORMAL) POC GLUCOSE (06/24/2022 6:41 PM CDT) athologist Signature POC Glucose 248 (H) 70 - 100 [facility] mg/dL CAMPUS - POINT OF CARE Specimen (Source) Anatomical Collection Method Collection Time Re ceived Time Location / / Volume Laterality Blood 06/24/2022 6:41 PM CDT Kingston Castañeda MD LABORATORY Performing Organization Address City/[facility]/ZIP Code Phon e Number [facility] - POINT OF CARE [address] [place] [address] (ABNORMAL) POC GLUCOSE (06/24/2022 4:39 PM CDT) P athologist Signature POC Glucose 214 (H) 70 - 100 [facility] mg/dL CAMPUS - POINT OF CARE Specimen (Source) Anatomical Collection Method Collection Time Re ceived Time Location / / Volume Laterality Blood 06/24/2022 4:39 PM CDT Kingston Castañeda MD LABORATORY Performing Organization Address City/[facility] Code Phon e Number [facility] - POINT OF CARE [address] [place] [address] XR C ARM OVER 3 HRS (06/24/2022 3:25 PM CDT) Specimen (Source) Anatomical Location Collection Method / Collectio n Time Received Time / Laterality Volume Roosevelt Borwn MD FLUORO XR PELVIS 3 V AP [...] POC Glucose 141 (H) 70 - 100 [facility] mg/dL CAMPUS - POINT OF CARE Specimen (Source) Anatomical Collection Method Collection Time Re ceived Time Location / / Volume Laterality Blood 06/24/2022 1:10 PM CDT Kingston Castañeda MD LABORATORY Performing Organization Address City/State/ZIP Code Phon e Number [facility] - POINT OF CARE [address] [place] [address] (ABNORMAL) POC GLUCOSE (06/24/2022 10:53 AM CDT) athologist Signature POC Glucose 146 (H) 70 - 100 [facility] mg/dL [place] - POINT OF CARE Specimen (Source) Anatomical Collection Method Collection Time Re ceived Time Location / / Volume Laterality Blood 06/24/2022 10:53 AM CDT Kingston Castañeda MD LABORATORY Performing Organization Address City/[facility]/ZIP Code Phon e Number [facility] - POINT OF CARE [address] [place] [id number] RED BLOOD CELLS LEUKOCYTE REDUCED ADULT (BLOOD ADMIN) (06/24/2022 8:39 AM CDT) athologist [facility] RBC Ready Product [facility] Ready Specimen Anatomical Collection Method Collection Time Receive d Time (Source) Location / / Volume Laterality Other 06/24/2022 8:39 AM 2 8:39 CDT AM CDT Narrative [facility] - 06/24/2022 8:45 AM CDT 2 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 to OR to have available in case 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 bleeding Is a signed informed consent on file: Ludwig s-on file Reason for Transfusion:->Anticipated Blo od Loss for Surgery/Procedure Does patient require irradiated product: No 2 Units Miri Matthew MD BLOOD BANK ORDERABLES (BLOOD ADMIN) Performing Organization Address [facility]/ZIP Code Phon e Number [facility] [place] [address] (ABNORMAL) ANTI XA HEPARIN UNFRACTIONATED (06/24/2022 7:04 AM CDT) athologist [facility] Anti XA Hep U 0.12 (L) 0.30 - [facility] 0.70 IU/mL Specimen Anatomical Collection Method Collection Time Receive d Time (Source) Location / / Volume Laterality Blood 06/24/2022 7:04 AM 2 7:35 CDT AM CDT Patrice Hollins MD LABORATORY Performing Organization Address City/[facility]/ZIP Code Phon e Number [facility] [place] [address] (ABNORMAL) POC GLUCOSE (06/24/2022 6:42 AM CDT) athologist Signature POC Glucose 155 (H) 70 - 100 [facility] mg/dL CAMPUS - POINT OF CARE Specimen (Source) Anatomical Collection Method Collection Time Re ceived Time Location / / Volume Laterality Blood 06/24/2022 6:42 AM CDT Kingston Castañeda MD LABORATORY Performing Organization Address City/[facility]/ZIP [facility] Phon e Number [facility] [place] - POINT OF CARE [address] [place] [phone] MAGNESIUM (06/24/2022 5:43 AM CDT) athologist Signature Magnesium 2.0 1.6 - 2.6 [facility] mg/dL Specimen Anatomical Collection Method Collection Time Receive d Time (Source) Location / / Volume Laterality Blood 06/24/2022 5:43 AM 6:18 CDT AM CDT Patrice Hollins MD LABORATORY Performing Organization Address City/[facility] Phon e Number [facility] [place] [address] (ABNORMAL) PANEL RENAL (06/24/2022 5:43 AM CDT) athologist [facility] Sodium 132 (L) 135 - 148 [facility] mEq/L Potassium 4.2 3.5 - 5.3 [facility] mEq/L Chloride 96 92 - 108 [facility] mEq/L CO2 23 22 - 30 [facility] mEq/L Glucose 160 (H) 70 - 100 [facility] mg/dL BUN 19 6 - 20 [facility] mg/dL Creatinine 0.62 (L) 0.70 - 1.25 [facility] mg/dL Calcium 9.5 8.6 - 10.0 [facility] mg/dL Albumin 3.7 (L) 3.8 - 5.1 [facility] g/dL Phosphorus 4.3 2.5 - 4.5 [facility] mg/dL eGFR, High >120 >=60 [facility] ml/min/1.73 m2 Comment: Calculated using CKD-EPI equati on AnGap 13 8 - 16 mEq/L [facility] eGFR, Low 120 >=60 ml/min/1.73m2 [facility] Comment: Calculated using CKD-EPI equati on Specimen Anatomical Collection Method Collection Time Receive d Time (Source) Location / / Volume Laterality Blood 06/24/2022 5:43 AM 2 6:18 CDT AM CDT Patrice Hollins MD LABORATORY Performing Organization Address [facility] Code Phon e Number [facility] [place] [address] (ABNORMAL) CBC WITH PLATELET (06/24/2022 5:43 AM CDT) P athologist Signature WBC 11.29 (H) 4.00 - [facility] 10.00 k/cmm RBC 4.30 (L) 4.60 - 6.00 [facility] m/cmm Hgb 12.0 (L) 13.1 - 17.5 [facility] g/dL Hematocrit 36.0 (L) 40.0 - 51.0 [facility] % MCV 83.7 80.0 - [facility] 100.0 fL MCH 27.9 25.0 - 32.0 [facility] pg MCHC 33.3 31.0 - 36.0 [facility] g/dL RDW 13.3 11.5 - 14.5 [facility] % Plt 527 (H) 150 - 400 [facility] k/cmm MPV 9.8 6.5 - 12.5 [facility] fL Specimen Anatomical Collection Method Collection Time Receive d Time (Source) Location / / Volume Laterality Blood 06/24/2022 5:43 AM 2 6:18 CDT AM CDT Patrice Hollins MD LABORATORY Performing Organization Address City/[facility] Code Phon e Number [facility] [place] [address] (ABNORMAL) ANTI XA HEPARIN UNFRACTIONATED (06/23/2022 10:42 PM CDT) P athologist Signature Anti XA Hep U 0.29 (L) 0.30 - [facility] 0.70 IU/mL Specimen Anatomical Collection Method Collection Time Receive d Time (Source) Location / / Volume Laterality Blood 06/23/2022 10:42 06/23/2022 PM CDT 11:02 PM CDT Patrice Hollins MD LABORATORY Performing Organization Address City/State/ZIP Code Phon e Number [facility] [place] [address] (ABNORMAL) POC GLUCOSE (06/23/2022 8:46 PM CDT) athologist Signature POC Glucose 136 (H) 70 - 100 [facility] mg/dL CAMPUS - POINT OF CARE Specimen (Source) Anatomical Collection Method Collection Time Re ceived Time Location / / Volume Laterality Blood 06/23/2022 8:46 PM CDT Kingston Castañeda MD LABORATORY Performing Organization Address City/State/ZIP Code Phon e Number [facility] - POINT OF CARE [address] [place] [phone] (ABNORMAL) POC GLUCOSE (06/23/2022 3:57 PM CDT) athologist Signature POC Glucose 200 (H) 70 - 100 [facility] mg/dL C[facility] - POINT OF CARE Specimen (Source) Anatomical Collection Method Collection Time Re ceived Time Location / / Volume Laterality Blood 06/23/2022 3:57 PM CDT Kingston Castañeda MD LABORATORY Performing Organization Address City/[facility]/ZIP Code Phon e Number [facility] - POINT OF CARE [address] [place] [phone] (ABNORMAL) ANTI XA HEPARIN UNFRACTIONATED (06/23/2022 3:40 PM CDT) Analysis Performed At Patho logist Time Signature Anti XA Hep U <0.04 (L) 0.30 - [facility] 0.70 IU/mL Specimen Anatomical Collection Method Collection Time Receive d Time (Source) Location / / Volume Laterality Blood 06/23/2022 3:40 PM 3:47 CDT PM CDT Patrice Hollins MD LABORATORY Performing Organization Address City/State/ZIP Code Phon e Number [facility] [place] [address] (ABNORMAL) POC GLUCOSE (06/23/2022 11:08 AM CDT) athologist Signature POC Glucose 125 (H) 70 - 100 [facility] mg/dL CAMPUS - POINT OF CARE Specimen (Source) Anatomical Collection Method Collection Time Re ceived Time Location / / Volume Laterality Blood 06/23/2022 11:08 AM CDT Kingston Castañeda MD LABORATORY Performing Organization Address City/[facility]/ZIP Code Phon e Number [facility] - POINT OF CARE [address] [place] [phone] (ABNORMAL) ANTI XA HEPARIN UNFRACTIONATED (06/23/2022 6:25 AM CDT) Analysis Performed At Patho logist Time Signature Anti XA Hep U <0.04 (L) 0.30 - [facility] 0.70 IU/mL Specimen Anatomical Collection Method Collection Time Receive d Time (Source) Location / / Volume Laterality Blood 06/23/2022 6:25 AM 6:34 CDT AM CDT Patrice Hollins MD LABORATORY Performing Organization Address City/[facility]/ZIP Code Phon e Number [facility] [place] [address] [place] [address] (ABNORMAL) POC GLUCOSE (06/23/2022 6:10 AM CDT) athologist Signature POC Glucose 131 (H) 70 - 100 [facility] mg/dL CAMPUS - POINT OF CARE Specimen (Source) Anatomical Collection Method Collection Time Re ceived Time Location / / Volume Laterality Blood 06/23/2022 6:10 AM CDT Kingston Castañeda MD LABORATORY Performing Organization Address City/[facility]/ZIP Code Phon e Number [facility] - POINT OF CARE [address] [place] [address] (ABNORMAL) POC GLUCOSE (06/22/2022 9:19 PM CDT) P athologist Signature POC Glucose 195 (H) 70 - 100 [facility] mg/dL CAMPUS - POINT OF CARE Specimen (Source) Anatomical Collection Method Collection Time Re ceived Time Location / / Volume Laterality Blood 06/22/2022 9:19 PM CDT Kingston Castañeda MD LABORATORY Performing Organization Address City/[facility]/ZIP Code Phon e Number [facility] - POINT OF CARE [address] [place] [address] (ABNORMAL) POC GLUCOSE (06/22/2022 4:03 PM CDT) P athologist Signature POC Glucose 142 (H) 70 - 100 [facility] mg/dL [place] - POINT OF CARE Specimen (Source) Anatomical Collection Method Collection Time Re ceived Time Location / / Volume Laterality Blood 06/22/2022 4:03 PM CDT Kingston Castañeda MD LABORATORY Performing Organization Address City/[facility]/ZIP Code Phon e Number [facility] - POINT OF CARE [address] [place] [address] (ABNORMAL) POC GLUCOSE (06/22/2022 11:07 AM CDT) athologist Signature POC Glucose 115 (H) 70 - 100 [facility] mg/dL [place] - POINT OF CARE Specimen (Source) Anatomical Collection Method Collection Time Re ceived Time Location / / Volume Laterality Blood 06/22/2022 11:07 AM CDT Kingston Castañeda MD LABORATORY Performing Organization Address City/[facility]/ZIP Code Phon e Number [facility] - POINT OF CARE [address] [place] [phone] (ABNORMAL) PROTHROMBIN (PT) & INR (06/22/2022 10:53 AM CDT) athologist Signature PT 13.9 (H) 9.0 - 12.5 [facility] sec INR 1.2 (H) 0.8 - 1.1 [facility] Specimen Anatomical Collection Method Collection Time Receive d Time (Source) Location / / Volume Laterality Blood 06/22/2022 10:53 06/22/2022 AM CDT 11:01 AM CDT Patrice Hollins MD LABORATORY Performing Organization Address City/[facility]/ZIP Code Phon e Number [facility] [place] [address] ANTIBODY SCREEN (06/22/2022 10:53 AM CDT) athologist Signature Sabrina Screen Negative [facility] Specimen Anatomical Collection Method Collection Time Receive d Time (Source) Location / / Volume Laterality Blood 06/22/2022 10:53 06/22/2022 AM CDT 11:02 AM CDT Patrice Hollins MD LAB TRANSFUSION SERVICES Performing Organization Address City/[facility]/ZIP Code Phon e Number [facility] [place] [address] BLOOD TYPING-ABO/RH (06/22/2022 10:53 AM CDT) athologist Signature ABORHG A POS [facility] Specimen Anatomical Collection Method Collection Time Receive d Time (Source) Location / / Volume Laterality Blood 06/22/2022 10:53 06/22/2022 AM CDT 11:02 AM CDT Patrice Hollins MD LAB TRANSFUSION SERVICES Performing Organization Address City/[facility]/ZIP Code Phon e Number [facility] [place] [address] COVID-19 SURVEILLANCE (06/22/2022 7:10 AM CDT) [facility] gist Method Time Signature COVID-19 Not Detected Not Detected [facility] Specimen (Source) Anatomical Collection Method Collection Time Re ceived Time Location / / Volume Laterality Nasopharyngeal Swab 06/22/2022 7:10 06/22 AM CDT 11:15 AM CDT Narrative [facility] - 06/22/2022 12:26 PM CDT Preferred specimen is Nasopharyngeal swab Is the patient a healthcare employee: No Is the patient a [place] [facility] [facility] Employee : No Patrice Hollins MD LABORATORY Performing Organization Address City/[facility]/ZIP Code Phon e Number [facility] [place] [address] (ABNORMAL) POC GLUCOSE (06/22/2022 6:11 AM CDT) athologist [facility] POC Glucose 160 (H) 70 - 100 [facility] mg/dL CAMPUS - POINT OF CARE Specimen (Source) Anatomical Collection Method Collection Time Re ceived Time Location / / Volume Laterality Blood 06/22/2022 6:11 AM CDT Kingston Castañeda MD LABORATORY Performing Organization Address City/State/ZIP Code Phon e Number [facility] - POINT OF CARE [address] [place] [address] ANTI XA HEPARIN UNFRACTIONATED (06/22/2022 5:25 AM CDT) athologist Signature Anti XA Hep U 0.53 0.30 - 0.70 [facility] IU/mL Specimen Anatomical Collection Method Collection Time Receive d Time (Source) Location / / Volume Laterality Blood 06/22/2022 5:25 AM 2 9:54 CDT AM CDT Patrice Hollins MD LABORATORY Performing Organization Address City/[facility]/ZIP Code Phon e Number [facility] [place] [address] (ABNORMAL) CBC WITH PLATELET (06/22/2022 5:25 AM CDT) P athologist Signature WBC 10.55 (H) 4.00 - [facility] 10.00 k/cmm RBC 3.58 (L) 4.60 - 6.00 [facility] m/cmm Hgb 10.1 (L) 13.1 - 17.5 [facility] g/dL Hematocrit 30.2 (L) 40.0 - 51.0 [facility] % MCV 84.4 80.0 - [facility] 100.0 fL MCH 28.2 25.0 - 32.0 [facility] pg MCHC 33.4 31.0 - 36.0 [facility] g/dL RDW 13.3 11.5 - 14.5 [facility] % Plt 378 150 - 400 [facility] k/cmm MPV 9.7 6.5 - 12.5 [facility] fL Specimen Anatomical Collection Method Collection Time Receive d Time (Source) Location / / Volume Laterality Blood 06/22/2022 5:25 AM 2 5:39 CDT AM CDT Patrice Hollins MD LABORATORY Performing Organization Address [facility]/ZIP Code Phon e Number [facility] [place] [address] ANTI XA ASSAY LMW HEPARIN (06/22/2022 5:25 AM CDT) P athologist Signature Anti XA LMW 0.63 IU/mL [facility] Comment: Anti Xa Assay LMW Heparin Therapeutic Ra nges: 0.4-1.1 IU/mL for twice daily 1.0-2.0 IU/mL for once daily Specimen Anatomical Collection Method Collection Time Receive d Time (Source) Location / / Volume Laterality Blood 06/22/2022 5:25 AM 2 5:39 CDT AM CDT Patrice Hollins MD LABORATORY Performing Organization Address City/State/ZIP Code Phon e Number [facility] [place] [address] [place] [address] (ABNORMAL) POC GLUCOSE (06/21/2022 9:06 PM CDT) athologist Signature POC Glucose 158 (H) 70 - 100 [facility] mg/dL CAMPUS - POINT OF CARE Specimen (Source) Anatomical Collection Method Collection Time Re ceived Time Location / / Volume Laterality Blood 06/21/2022 9:06 PM CDT Kingston Castañeda MD LABORATORY Performing Organization Address City/[facility] Phon e Number [facility] - POINT OF CARE [address] [place] [address] (ABNORMAL) POC GLUCOSE (06/21/2022 4:13 PM CDT) athologist Signature POC Glucose 145 (H) 70 - 100 [facility] mg/dL CAMPUS - POINT OF CARE Specimen (Source) Anatomical Collection Method Collection Time Re ceived Time Location / / Volume Laterality Blood 06/21/2022 4:13 PM CDT Kingston Castañeda MD LABORATORY Performing Organization Address City/[facility] Phon e Number [facility] - POINT OF CARE [address] [place] [address] (ABNORMAL) POC GLUCOSE (06/21/2022 11:53 AM CDT) athologist Signature POC Glucose 154 (H) 70 - 100 [facility] mg/dL CAMPUS - POINT OF CARE Specimen (Source) Anatomical Collection Method Collection Time Re ceived Time Location / / Volume Laterality Blood 06/21/2022 11:53 AM CDT Kingston Castañeda MD LABORATORY Performing Organization Address City/[facility] Phon e Number [facility] - POINT OF CARE [address] [place] [address] ANTI XA HEPARIN UNFRACTIONATED (06/21/2022 6:19 AM CDT) athologist Signature Anti XA Hep U 0.30 0.30 - 0.70 [facility] IU/mL Specimen Anatomical Collection Method Collection Time Receive d Time (Source) Location / / Volume Laterality Blood 06/21/2022 6:19 AM 6:57 CDT AM CDT Patrice Hollins MD LABORATORY Performing Organization Address City/[facility] Code Phon e Number [facility] [place] [address] [place] [address] (ABNORMAL) POC GLUCOSE (06/21/2022 6:17 AM CDT) athologist Signature POC Glucose 141 (H) 70 - 100 [facility] mg/dL CAMPUS - POINT OF CARE Specimen (Source) Anatomical Collection Method Collection Time Re ceived Time Location / / Volume Laterality Blood 06/21/2022 6:17 AM CDT Kingston Castañeda MD LABORATORY Performing Organization Address City/[facility] Phon e Number [facility] - POINT OF CARE [address] [place] [address] (ABNORMAL) POC GLUCOSE (06/20/2022 8:51 PM CDT) athologist Signature POC Glucose 153 (H) 70 - 100 [facility] mg/dL CAMPUS - POINT OF CARE Specimen (Source) Anatomical Collection Method Collection Time Re ceived Time Location / / Volume Laterality Blood 06/20/2022 8:51 PM CDT Kingston Castañeda MD LABORATORY Performing Organization Address City/[facility] Phon e Number [facility] - POINT OF CARE [address] [place] [address] (ABNORMAL) POC GLUCOSE (06/20/2022 4:10 PM CDT) athologist Signature POC Glucose 133 (H) 70 - 100 [facility] mg/dL CAMPUS - POINT OF CARE Specimen (Source) Anatomical Collection Method Collection Time Re ceived Time Location / / Volume Laterality Blood 06/20/2022 4:10 PM CDT Kingston Castañeda MD LABORATORY Performing Organization Address City/[facility] Phon e Number [facility] - POINT OF CARE [address] [place] [address] XR ANKLE RIGHT 3 V AP/OBL/LAT* (06/20/2022 [...] IMPRESSION Impression: No fracture. Reading Radiologist: Mario rOr Patrice Hollins MD X-RAY ANTI XA HEPARIN UNFRACTIONATED (06/20/2022 12:14 PM CDT) athologist Signature Anti XA Hep U 0.34 0.30 - 0.70 [facility] IU/mL Specimen Anatomical Collection Method Collection Time Receive d Time (Source) Location / / Volume Laterality Blood 06/20/2022 12:14 06/20/2022 PM CDT 12:42 PM CDT Patrice Hollins MD LABORATORY Performing Organization Address City/State/ZIP Code Phon e Number [facility] [place], [place] [id number] [place] [address] (ABNORMAL) POC GLUCOSE (06/20/2022 12:06 PM CDT) athologist Signature POC Glucose 143 (H) 70 - 100 [facility] mg/dL CAMPUS - POINT OF CARE Specimen (Source) Anatomical Collection Method Collection Time Re ceived Time Location / / Volume Laterality Blood 06/20/2022 12:06 PM CDT Kingston Castañeda MD LABORATORY Performing Organization Address City/State/ZIP Code Phon e Number [facility] C[facility] - POINT OF CARE [address] [place] [address] (ABNORMAL) POC GLUCOSE (06/20/2022 6:19 AM CDT) athologist Signature POC Glucose 126 (H) 70 - 100 [facility] mg/dL C[facility] - POINT OF CARE Specimen (Source) Anatomical Collection Method Collection Time Re ceived Time Location / / Volume Laterality Blood 06/20/2022 6:19 AM CDT Kingston Castañeda MD LABORATORY Performing Organization Address City/State/ZIP Code Phon e Number [facility] [place] - POINT OF CARE [address] [place] [address] ANTI XA HEPARIN UNFRACTIONATED (06/20/2022 5:57 AM CDT) athologist [facility] Anti XA Hep U 0.42 0.30 - 0.70 [facility] IU/mL Specimen Anatomical Collection Method Collection Time Receive d Time (Source) Location / / Volume Laterality Blood 06/20/2022 5:57 AM 2 6:19 CDT AM CDT Patrice Hollins MD LABORATORY Performing Organization Address City/[facility] Code Phon e Number [facility] [place] [address] (ABNORMAL) PANEL BASIC METABOLIC (BMP) (06/20/2022 5:57 AM CDT) athologist [facility] CO2 26 22 - 30 [facility] mEq/L Glucose 146 (H) 70 - 100 [facility] mg/dL BUN 14 6 - 20 [facility] mg/dL Creatinine 0.63 (L) 0.70 - 1.25 [facility] mg/dL Calcium 8.4 (L) 8.6 - 10.0 [facility] mg/dL eGFR, High >120 >=60 [facility] ml/min/1.73 m2 Comment: Calculated using CKD-EPI equati on Sodium 139 135 - 148 mEq/L [facility] Potassium 3.8 3.5 - 5.3 mEq/L [facility] Chloride 103 92 - 108 mEq/L [facility] eGFR, Low 119 >=60 ml/min/1.73m2 [facility] Comment: Calculated using CKD-EPI equati on AnGap 10 8 - 16 mEq/L [facility] Specimen Anatomical Collection Method Collection Time Receive d Time (Source) Location / / Volume Laterality Blood 06/20/2022 5:57 AM 2 6:19 CDT AM CDT Patrice Hollins MD LABORATORY Performing Organization Address City/[facility]/ZIP Code Phon e Number [facility] [place] [address] (ABNORMAL) CBC WITH PLATELET (06/20/2022 5:57 AM CDT) athologist [facility] WBC 7.23 4.00 - [facility] 10.00 k/cmm RBC 3.19 (L) 4.60 - 6.00 [facility] m/cmm Hgb 9.0 (L) 13.1 - 17.5 [facility] g/dL Hematocrit 27.0 (L) 40.0 - 51.0 [facility] % MCV 84.6 80.0 - [facility] 100.0 fL MCH 28.2 25.0 - 32.0 [facility] pg MCHC 33.3 31.0 - 36.0 [facility] g/dL RDW 13.1 11.5 - 14.5 [facility] % Plt 266 150 - 400 [facility] k/cmm MPV 10.1 6.5 - 12.5 [facility] fL Specimen Anatomical Collection Method Collection Time Receive d Time (Source) Location / / Volume Laterality Blood 06/20/2022 5:57 AM 2 6:19 CDT AM CDT Patrice Hollins MD LABORATORY Performing Organization Address City/[facility]/ZIP Code Phon e Number [facility] [place] [address] EXTRA TUBE - SST (06/20/2022 1:05 AM CDT) athologist [facility] SST TUBE Stored [facility] Comment: SST tubes (Serum Separator) are stored in the lab for 3 days from the collection date. Specimen Anatomical Collection Method Collection Time Receive d Time (Source) Location / / Volume Laterality Blood 06/20/2022 1:05 AM 2 1:05 CDT AM CDT Kingston Castañeda MD LABORATORY Performing Organization Address City/[facility]/ZIP Code Phon e Number [facility] [place], [place] [id number] [place] [address] ANTI XA HEPARIN UNFRACTIONATED (06/20/2022 12:19 AM CDT) athologist [facility] Anti XA Hep U 0.44 0.30 - 0.70 [facility] IU/mL Specimen Anatomical Collection Method Collection Time Receive d Time (Source) Location / / Volume Laterality Blood 06/20/2022 12:19 06/20/2022 1:07 AM CDT AM CDT Patrice Hollins MD LABORATORY Performing Organization Address City/State/ZIP Code Phon e Number [facility] [place] [address] [place] [address] [place] [address] (ABNORMAL) POC GLUCOSE (06/19/2022 8:57 PM CDT) P athologist Signature POC Glucose 126 (H) 70 - 100 [facility] mg/dL CAMPUS - POINT OF CARE Specimen (Source) Anatomical Collection Method Collection Time Re ceived Time Location / / Volume Laterality Blood 06/19/2022 8:57 PM CDT Kingston Castañeda MD LABORATORY Performing Organization Address City/State/ZIP Code Phon e Number [facility] [place] - POINT OF CARE [address] [place] [address] XR FOOT RIGHT 3 V AP/OBL/LAT* (06/19/2022 [...] XA Hep U 0.25 (L) 0.30 - [facility] 0.70 IU/mL Specimen Anatomical Collection Method Collection Time Receive d Time (Source) Location / / Volume Laterality Blood 06/19/2022 5:27 PM 6:07 CDT PM CDT Patrice Hollins MD LABORATORY Performing Organization Address City/[facility]/ZIP Code Phon e Number [facility] [place] [address] (ABNORMAL) POC GLUCOSE (06/19/2022 4:01 PM CDT) athologist Signature POC Glucose 159 (H) 70 - 100 [facility] mg/dL CAMPUS - POINT OF CARE Specimen (Source) Anatomical Collection Method Collection Time Re ceived Time Location / / Volume Laterality Blood 06/19/2022 4:01 PM CDT Kingston Castañeda MD LABORATORY Performing Organization Address City/[facility]/ZIP Code Phon e Number [facility] [place] - POINT OF CARE [address] [place] [address] ANTI XA HEPARIN UNFRACTIONATED (06/19/2022 12:51 PM CDT) athologist Signature Anti XA Hep U 0.34 0.30 - 0.70 [facility] IU/mL Specimen Anatomical Collection Method Collection Time Receive d Time (Source) Location / / Volume Laterality Blood 06/19/2022 12:51 06/19/2022 PM CDT 12:59 PM CDT Patrice Hollins MD LABORATORY Performing Organization Address City/[facility]/ZIP Code Phon e Number [facility] [place] [address] PELVIS 3D RECONSTRUCTION (06/19/2022 11:49 [...] POC Glucose 128 (H) 70 - 100 [facility] mg/dL CAMPUS - POINT OF CARE Specimen (Source) Anatomical Collection Method Collection Time Re ceived Time Location / / Volume Laterality Blood 06/19/2022 11:19 AM CDT Kingston Castañeda MD LABORATORY Performing Organization Address City/State/ZIP Code Phon e Number [facility] - POINT OF CARE [address] [place] [address] CT UROGRAM (06/19/2022 11:05 AM CDT) Anatomical [...] POC Glucose 135 (H) 70 - 100 [facility] mg/dL CAMPUS - POINT OF CARE Specimen (Source) Anatomical Collection Method Collection Time Re ceived Time Location / / Volume Laterality Blood 06/19/2022 6:03 AM CDT Kingston Castañeda MD LABORATORY Performing Organization Address [facility]/ZIP Code Phon e Number [facility] [place] - POINT OF CARE [address] [place] [address] (ABNORMAL) ANTI XA HEPARIN UNFRACTIONATED (06/19/2022 5:15 AM CDT) Analysis Performed At Patho logist Time Signature Anti XA Hep U <0.04 (L) 0.30 - [facility] 0.70 IU/mL Specimen Anatomical Collection Method Collection Time Receive d Time (Source) Location / / Volume Laterality Blood 06/19/2022 5:15 AM 6:21 CDT AM CDT Patrice Hollins MD LABORATORY Performing Organization Address [facility]/ZIP [facility] Phon e Number [facility] [place] [address] (ABNORMAL) PANEL BASIC METABOLIC (BMP) (06/19/2022 5:15 AM CDT) athologist Signature CO2 24 22 - 30 [facility] mEq/L Glucose 140 (H) 70 - 100 [facility] mg/dL BUN 12 6 - 20 [facility] mg/dL Creatinine 0.61 (L) 0.70 - 1.25 [facility] mg/dL Calcium 8.4 (L) 8.6 - 10.0 [facility] mg/dL eGFR, High >120 >=60 [facility] ml/min/1.73 m2 Comment: Calculated using CKD-EPI equati on Sodium 139 135 - 148 mEq/L [facility] Potassium 4.5 3.5 - 5.3 mEq/L [facility] Chloride 104 92 - 108 mEq/L [facility] eGFR, Low >120 >=60 ml/min/1.73m2 [facility] Comment: Calculated using CKD-EPI equati on AnGap 11 8 - 16 mEq/L [facility] Specimen Anatomical Collection Method Collection Time Receive d Time (Source) Location / / Volume Laterality Blood 06/19/2022 5:15 AM 6:21 CDT AM CDT Patrice Hollins MD LABORATORY Performing Organization Address City/State/ZIP Code Phon e Number [facility] [place], [place] [id number] [place] [address] (ABNORMAL) CBC WITH PLATELET (06/19/2022 5:15 AM CDT) P athologist Signature WBC 4.92 4.00 - [facility] 10.00 k/cmm RBC 3.30 (L) 4.60 - 6.00 [facility] m/cmm Hgb 9.4 (L) 13.1 - 17.5 [facility] g/dL Hematocrit 28.0 (L) 40.0 - 51.0 [facility] % MCV 84.8 80.0 - [facility] 100.0 fL MCH 28.5 25.0 - 32.0 [facility] pg MCHC 33.6 31.0 - 36.0 [facility] g/dL RDW 12.8 11.5 - 14.5 [facility] % Plt 227 150 - 400 [facility] k/cmm MPV 10.7 6.5 - 12.5 [facility] fL Specimen Anatomical Collection Method Collection Time Receive d Time (Source) Location / / Volume Laterality Blood 06/19/2022 5:15 AM 6:21 CDT AM CDT Patrice Hollins MD LABORATORY Performing Organization Address City/[facility]/ZIP Code Phon e Number [facility] [place] [address] (ABNORMAL) ANTI XA HEPARIN UNFRACTIONATED (06/18/2022 11:59 PM CDT) Analysis Performed At Patho logist Time Signature Anti XA Hep U <0.04 (L) 0.30 - [facility] 0.70 IU/mL Specimen Anatomical Collection Method Collection Time Receive d Time (Source) Location / / Volume Laterality Blood 06/18/2022 11:59 06/18/2022 PM CDT 11:59 PM CDT Narrative [facility] - 06/19/2022 12:35 AM CDT Baseline Patrice Hollins MD LABORATORY Performing Organization Address City/[facility] Code Phon e Number [facility] [place] [address] (ABNORMAL) POC GLUCOSE (06/18/2022 9:13 PM CDT) P athologist Signature POC Glucose 127 (H) 70 - 100 [facility] mg/dL CAMPUS - POINT OF CARE Specimen (Source) Anatomical Collection Method Collection Time Re ceived Time Location / / Volume Laterality Blood 06/18/2022 9:13 PM CDT Kingston Castañeda MD LABORATORY Performing Organization Address City/[facility]/ZIP Code Phon e Number [facility] CAMPUS - POINT OF CARE [address] [place] [phone] (ABNORMAL) POC GLUCOSE (06/18/2022 7:03 PM CDT) P athologist Signature POC Glucose 147 (H) 70 - 100 [facility] mg/dL CAMPUS - POINT OF CARE Specimen (Source) Anatomical Collection Method Collection Time Re ceived Time Location / / Volume Laterality Blood 06/18/2022 7:03 PM CDT Kingston Castañeda MD LABORATORY Performing Organization Address City/[facility]/ZIP Code Phon e Number [facility] C[facility] - POINT OF CARE [address] [place] [address] [id number] XR C ARM OVER 3 HRS (06/18/2022 [...] Signature POC Glucose 98 70 - 100 [facility] mg/dL CAMPUS - POINT OF CARE Specimen (Source) Anatomical Collection Method Collection Time Re ceived Time Location / / Volume Laterality Blood 06/18/2022 4:15 PM CDT Kingston Castañeda MD LABORATORY Performing Organization Address City/State/ZIP Code Phon e Number [facility] - POINT OF CARE [address] [place] [address] .Post Sedation Immediate (06/18/2022 12:23 PM CDT) [...] the needle into the IVC. A 5 Malay pigtail flush catheter was advanced over the [...] the needle into the IVC. A 5 Malay pigtail flush catheter was advanc ed over [...] POC Glucose 109 (H) 70 - 100 [facility] mg/dL CAMPUS - POINT OF CARE Specimen (Source) Anatomical Collection Method Collection Time Re ceived Time Location / / Volume Laterality Blood 06/18/2022 11:21 AM CDT Kingston Castañeda MD LABORATORY Performing Organization Address City/State/ZIP Code Phon e Number [facility] - POINT OF CARE [address] [place] [phone] (ABNORMAL) ANTI XA HEPARIN UNFRACTIONATED (06/18/2022 10:27 AM CDT) Analysis Performed At Patho logist Time Signature Anti XA Hep U <0.04 (L) 0.30 - [facility] 0.70 IU/mL Specimen Anatomical Collection Method Collection Time Receive d Time (Source) Location / / Volume Laterality Blood 06/18/2022 10:27 06/18/2022 AM CDT 10:32 AM CDT Patrice Hollins MD LABORATORY Performing Organization Address City/State/ZIP Code Phon e Number [facility] [place] [address] XR URETHROGRAM RETROGRADE (06/18/2022 9:14 AM [...] was unremarkable. No extravasatio n was demonstrated. Veterinary Assistant: Kirby Complications: None Fluoroscopy time: 22 seconds [...] urethra was unremarkable. No extravasation was demonstrated. Veterinary Assistant: Kirby Complications: None Fluoroscopy time: 22 seconds Dose: 12 mGy IMPRESSION IMPRESSION: No evidence for anterior ure thral injury. Reading Radiologist: Mario Orr Patrice Hollins MD FLUORO (ABNORMAL) POC GLUCOSE (06/18/2022 6:26 AM CDT) athologist Signature POC Glucose 125 (H) 70 - 100 [facility] mg/dL [place] - POINT OF CARE Specimen (Source) Anatomical Collection Method Collection Time Re ceived Time Location / / Volume Laterality Blood 06/18/2022 6:26 AM CDT Kingston Castañeda MD LABORATORY Performing Organization Address City/State/ZIP Code Phon e Number [facility] - POINT OF CARE [address] [place] [address] (ABNORMAL) ANTI XA HEPARIN UNFRACTIONATED (06/18/2022 4:50 AM CDT) Analysis Performed At Patho logist Time Signature Anti XA Hep U <0.04 (L) 0.30 - [facility] 0.70 IU/mL Specimen Anatomical Collection Method Collection Time Receive d Time (Source) Location / / Volume Laterality Blood 06/18/2022 4:50 AM 2 5:11 CDT AM CDT Patrice Hollins MD LABORATORY Performing Organization Address City/[facility]/ZIP Code Phon [place] [address] (ABNORMAL) PANEL BASIC METABOLIC (BMP) (06/18/2022 4:50 AM CDT) P athologist Signature CO2 23 22 - 30 [facility] mEq/L Glucose 137 (H) 70 - 100 [facility] mg/dL BUN 12 6 - 20 [facility] mg/dL Creatinine 0.66 (L) 0.70 - 1.25 [facility] mg/dL Calcium 8.3 (L) 8.6 - 10.0 [facility] mg/dL eGFR, High >120 >=60 [facility] ml/min/1.73 m2 Comment: Calculated using CKD-EPI equati on Sodium 137 135 - 148 mEq/L [facility] Potassium 3.8 3.5 - 5.3 mEq/L [facility] Chloride 105 92 - 108 mEq/L [facility] eGFR, Low 117 >=60 ml/min/1.73m2 [facility] Comment: Calculated using CKD-EPI equati on AnGap 9 8 - 16 mEq/L [facility] Specimen Anatomical Collection Method Collection Time Receive d Time (Source) Location / / Volume Laterality Blood 06/18/2022 4:50 AM 2 5:11 CDT AM CDT Patrice Hollins MD LABORATORY Performing Organization Address City/[facility] Code Phon [place] [address] (ABNORMAL) CBC WITH PLATELET (06/18/2022 4:50 AM CDT) P athologist Signature WBC 7.80 4.00 - [facility] 10.00 k/cmm RBC 3.37 (L) 4.60 - 6.00 [facility] m/cmm Hgb 9.6 (L) 13.1 - 17.5 [facility] g/dL Hematocrit 28.8 (L) 40.0 - 51.0 [facility] % MCV 85.5 80.0 - [facility] 100.0 fL MCH 28.5 25.0 - 32.0 [facility] pg MCHC 33.3 31.0 - 36.0 [facility] g/dL RDW 13.3 11.5 - 14.5 [facility] % Plt 191 150 - 400 [facility] k/cmm MPV 10.2 6.5 - 12.5 [facility] fL Specimen Anatomical Collection Method Collection Time Receive d Time (Source) Location / / Volume Laterality Blood 06/18/2022 4:50 AM 5:11 CDT AM CDT Patrice Hollins MD LABORATORY Performing Organization Address City/[facility]/ZIP Code Phon e Number [facility] [place] [address] (ABNORMAL) ANTI XA HEPARIN UNFRACTIONATED (06/17/2022 10:34 PM CDT) athologist [facility] Anti XA Hep U 0.22 (L) 0.30 - [facility] 0.70 IU/mL Specimen Anatomical Collection Method Collection Time Receive d Time (Source) Location / / Volume Laterality Blood 06/17/2022 10:34 06/17/2022 PM CDT 11:12 PM CDT Patrice Hollins MD LABORATORY Performing Organization Address City/[facility]/ZIP Code Phon e Number [facility] [place] [address] (ABNORMAL) POC GLUCOSE (06/17/2022 8:43 PM CDT) athologist Signature POC Glucose 132 (H) 70 - 100 [facility] mg/dL CAMPUS - POINT OF CARE Specimen (Source) Anatomical Collection Method Collection Time Re ceived Time Location / / Volume Laterality Blood 06/17/2022 8:43 PM CDT Kingston Castañeda MD LABORATORY Performing Organization Address City/State/ZIP Code Phon e Number [facility] - POINT OF CARE [address] [place] [phone] (ABNORMAL) POC GLUCOSE (06/17/2022 3:57 PM CDT) athologist Signature POC Glucose 169 (H) 70 - 100 [facility] mg/dL CAMPUS - POINT OF CARE Specimen (Source) Anatomical Collection Method Collection Time Re ceived Time Location / / Volume Laterality Blood 06/17/2022 3:57 PM CDT Kingston Castañeda MD LABORATORY Performing Organization Address City/State/ZIP Code Phon e Number [facility] [place] - POINT OF CARE [address] [place] [address] ULT VENOUS LOWER EXTREMITY BILAT (06/17/2022 3:35 [...] reported to referring provider Nisha Guadalupe via Tix[employer], who responded indicating that the communication was [...] reported to referring provider Nisha Guadalupe via TixAlert, who responded indicating that the communication was understood. Contact was made at the time of interpretation on 06/17/2022 3:37 PM, wit hin 5 minutes of observation. Reading Radiologist: Lenny Callahan Meredith Guadalupe WAREHOUSEMAN, DELTA SYSTEM [employer]RE[employer] CLE[employer]ER ULT (ABNORMAL) POC GLUCOSE (06/17/2022 11:54 AM CDT) P athologist Signature POC Glucose 102 (H) 70 - 100 [facility] mg/dL CAMPUS - POINT OF CARE Specimen (Source) Anatomical Collection Method Collection Time Re ceived Time Location / / Volume Laterality Blood 06/17/2022 11:54 AM CDT Kingston Castañeda MD LABORATORY Performing Organization Address City/State/ZIP Code Phon e Number [facility] - POINT OF CARE [address] [place] [address] ANTIBODY SCREEN (06/17/2022 11:46 AM CDT) athologist Signature Sabrina Screen Negative [facility] Specimen Anatomical Collection Method Collection Time Receive d Time (Source) Location / / Volume Laterality Blood 06/17/2022 11:46 06/17/2022 AM CDT 12:06 PM CDT Patrice Hollins MD LAB TRANSFUSION SERVICES Performing Organization Address City/[facility] Code Phon e Number [facility] [place] [address] BLOOD TYPING-ABO/RH (06/17/2022 11:46 AM CDT) athologist Signature ABORHG A POS [facility] Specimen Anatomical Collection Method Collection Time Receive d Time (Source) Location / / Volume Laterality Blood 06/17/2022 11:46 06/17/2022 AM CDT 12:06 PM CDT Patrice Hollins MD LAB TRANSFUSION SERVICES Performing Organization Address [facility] Code Phon e Number [facility] [place] [address] POC GLUCOSE (06/17/2022 6:53 AM CDT) athologist Signature POC Glucose 88 70 - 100 [facility] mg/dL CAMPUS - POINT OF CARE Specimen (Source) Anatomical Collection Method Collection Time Re ceived Time Location / / Volume Laterality Blood 06/17/2022 6:53 AM CDT Kingston Castañeda MD LABORATORY Performing Organization Address City/[facility]/ZIP Code Phon e Number [facility] - POINT OF CARE [address] [place] [address] (ABNORMAL) POC GLUCOSE (06/17/2022 6:51 AM CDT) athologist Signature POC Glucose 20 (LL) 70 - 100 [facility] mg/dL CAMPUS - POINT OF CARE Specimen (Source) Anatomical Collection Method Collection Time Re ceived Time Location / / Volume Laterality Blood 06/17/2022 6:51 AM CDT Kingston Castañeda MD LABORATORY Performing Organization Address City/[facility]/ZIP Code Phon e Number [facility] - POINT OF CARE [address] [place] [address] (ABNORMAL) PANEL BASIC METABOLIC (BMP) (06/17/2022 5:07 AM CDT) athologist Signature CO2 23 22 - 30 [facility] mEq/L Glucose 118 (H) 70 - 100 [facility] mg/dL BUN 13 6 - 20 [facility] mg/dL Creatinine 0.82 0.70 - 1.25 [facility] mg/dL Calcium 8.1 (L) 8.6 - 10.0 [facility] mg/dL eGFR, High >120 >=60 [facility] ml/min/1.73 m2 Comment: Calculated using CKD-EPI equati on Sodium 137 135 - 148 mEq/L [facility] Potassium 3.6 3.5 - 5.3 mEq/L [facility] Chloride 105 92 - 108 mEq/L [facility] eGFR, Low 107 >=60 ml/min/1.73m2 [facility] Comment: Calculated using CKD-EPI equati on AnGap 9 8 - 16 mEq/L [facility] Specimen Anatomical Collection Method Collection Time Receive d Time (Source) Location / / Volume Laterality Blood 06/17/2022 5:07 AM 5:37 CDT AM CDT Kingston Castañeda MD LABORATORY Performing Organization Address City/State/ZIP Code Phon e Number [facility] [place] [address] (ABNORMAL) CBC WITH PLATELET (06/17/2022 5:07 AM CDT) athologist Signature WBC 7.32 4.00 - [facility] 10.00 k/cmm RBC 3.43 (L) 4.60 - 6.00 [facility] m/cmm Hgb 9.8 (L) 13.1 - 17.5 [facility] g/dL Hematocrit 29.4 (L) 40.0 - 51.0 [facility] % MCV 85.7 80.0 - [facility] 100.0 fL MCH 28.6 25.0 - 32.0 [facility] pg MCHC 33.3 31.0 - 36.0 [facility] g/dL RDW 13.3 11.5 - 14.5 [facility] % Plt 181 150 - 400 [facility] k/cmm MPV 10.1 6.5 - 12.5 [facility] fL Specimen Anatomical Collection Method Collection Time Receive d Time (Source) Location / / Volume Laterality Blood 06/17/2022 5:07 AM 5:36 CDT AM CDT Kingston Castañeda MD LABORATORY Performing Organization Address City/State/ZIP Code Phon e Number [facility] [place] [address] (ABNORMAL) POC GLUCOSE (06/16/2022 9:14 PM CDT) athologist Signature POC Glucose 149 (H) 70 - 100 [facility] mg/dL CAMPUS - POINT OF CARE Specimen (Source) Anatomical Collection Method Collection Time Re ceived Time Location / / Volume Laterality Blood 06/16/2022 9:14 PM CDT Kingston Castañeda MD LABORATORY Performing Organization Address City/[facility]/ZIP Code Phon e Number [facility] [place] - POINT OF CARE [address] [place] [address] XR WRIST RIGHT 3+ PA/OB/LAT/JENS* (06/16/2022 6:58 [...] radius. Reading Radiologist: Indio Cadena Yaritza Gallegos WAREHOUSEMAN, DELTA SYSTEM [employer]RE[employer] CLE[employer]ER X-RAY POC GLUCOSE (06/16/2022 6:05 PM CDT) athologist Signature POC Glucose 73 70 - 100 [facility] mg/dL CAMPUS - POINT OF CARE Specimen (Source) Anatomical Collection Method Collection Time Re ceived Time Location / / Volume Laterality Blood 06/16/2022 6:05 PM CDT Kingston Castañeda MD LABORATORY Performing Organization Address City/[facility]/ZIP Code Phon e Number [facility] - POINT OF CARE [address] [place] [address] POC GLUCOSE (06/16/2022 12:47 PM CDT) athologist Signature POC Glucose 95 70 - 100 [facility] mg/dL [place] - POINT OF CARE Specimen (Source) Anatomical Collection Method Collection Time Re ceived Time Location / / Volume Laterality Blood 06/16/2022 12:47 PM CDT Kingston Castañeda MD LABORATORY Performing Organization Address City/[facility] Phon e Number [facility] - POINT OF CARE [address] [place] [address] XR PELVIS 5V AP/IN/OUTLET/JUDET* (06/16/2022 12:19 PM [...] 06/15/2022. Fluoroscopy time: ??22 seconds Dose:12 mGy Grahn protocol was followed. ?? Technique: The patient [...] 06/15/2022. Fluoroscopy time: 22 seconds Dose:12 mGy Grahn protocol was followed. Technique: The patient arrived [...] Signature Lactate 0.7 0.7 - 2.1 [facility] mmol/L Specimen Anatomical Collection Method Collection Time Receive d Time (Source) Location / / Volume Laterality Blood 06/16/2022 2:20 AM 2 2:47 CDT AM CDT Narrative [facility] - 06/16/2022 3:06 AM CDT Send specimen on ice! Gideon Dyer MD LABORATORY Performing Organization Address City/State/ZIP Code Phon e Number [facility] [place], [place] [id number] [place] [address] (ABNORMAL) URINALYSIS,TOTAL (06/16/2022 12:20 AM CDT) [facility] Method Time Signature Color YELLOW YELLOW [...] Ur 6-10 (A) 0 - 5 perHPF [facility] RBC Ur 11-20 (A) 0 - 3 perHPF [facility] SQ EPITH 0-5 0 - 5 perHPF [facility] Mucus 1+ perLPF [facility] Sperm PRESENT [facility] Bacteria UA PRESENT [facility] Comment: Presence of bacteria does not n ecessarily indicate a UTI. The presence of bacteria can indicate a non-clean catch urine specimen. Bacteria should be used in conjunction with other UA results and cl inical presentation to assist in diagnosing an infection. Urinalysis Performed at: [facility] Specific [place] 1.010 1.003 - 1.030 [facility] Specimen Anatomical Collection Method Collection Time Receive d Time (Source) Location / / Volume Laterality Urine 06/16/2022 12:20 06/16/2022 AM CDT 12:39 AM CDT Gideon Dyer MD LABORATORY Performing Organization Address City/State/ZIP Code Phon e Number [facility] [place] [address] XR PELVIS AP* (06/15/2022 11:21 PM [...] canal or neural foraminal stenosis. 3. Suspected [place] syndrome on the left. Reading Radiologist: Stephany [...] visualized paraspi nous tissues is noted. 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 Procedure Note Stephany Granda [...] visualized paraspi nous tissues is noted. 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 IMPRESSION Impression: 1. No fracture or subluxation of the cer vical vertebrae. 2. No significant spinal canal or neural foraminal stenosis. 3. Suspected [place] syndrome on the left. Reading Radiologist: Stephany [...] styloid process, which can be seen in [place] syndrome. The visualized portions of the paranasal [...] styloid process, which can be seen in [place] syndrome. The visualized portions of the paranasal [...] CDT) athologist Signature CASTAÑEDA TUBE Stored [facility] Comment: Castañeda top (Sodium flouride) tube s are stored in the lab for 3 days from the collection date. Specimen Anatomical Collection Method Collection Time Receive d Time (Source) Location / / Volume Laterality Blood 06/15/2022 7:20 PM 7:31 CDT PM CDT Kingston Castañeda MD LABORATORY Performing Organization Address City/State/ZIP Code Phon e Number [facility] [place] [address] EXTRA TUBE - SST (06/15/2022 7:20 PM CDT) athologist Signature SST TUBE Stored [facility] Comment: SST tubes (Serum Separator) are stored in the lab for 3 days from the collection date. Specimen Anatomical Collection Method Collection Time Receive d Time (Source) Location / / Volume Laterality Blood 06/15/2022 7:20 PM 2 7:31 CDT PM CDT Kingston Castañeda MD LABORATORY Performing Organization Address City/[facility]/ZIP Code Phon e Number [facility] [place] [address] HS TROPONIN (06/15/2022 7:20 PM CDT) athologist [facility] HS Troponin I 4 <=34 ng/L [facility] Specimen Anatomical Collection Method Collection Time Receive d Time (Source) Location / / Volume Laterality Blood 06/15/2022 7:20 PM 2 7:41 CDT PM CDT Narrative [facility] - 06/15/2022 8:11 PM CDT First Occurrence of the Troponin order i s to be drawn Stat by Nursing staff on the unit. Gideon Dyer MD LABORATORY Performing Organization Address City/[facility]/ZIP Code Phon e Number [facility] [place] [address] (ABNORMAL) PTT (APTT) (06/15/2022 7:20 PM CDT) athologist [facility] APTT 21.4 (L) 25.0 - 37.0 [facility] sec Specimen Anatomical Collection Method Collection Time Receive d Time (Source) Location / / Volume Laterality Blood 06/15/2022 7:20 PM 2 7:41 CDT PM CDT Gideon Dyer MD LABORATORY Performing Organization Address City/[facility]/ZIP Code Phon e Number [facility] [place] [address] PROTHROMBIN (PT) & INR (06/15/2022 7:20 PM CDT) athologist Signature PT 11.9 9.0 - 12.5 [facility] sec INR 1.0 0.8 - 1.1 [facility] Specimen Anatomical Collection Method Collection Time Receive d Time (Source) Location / / Volume Laterality Blood 06/15/2022 7:20 PM 7:41 CDT PM CDT Gideon Dyer MD LABORATORY Performing Organization Address City/[facility] Phon e Number [facility] [place] [address] COVID-19 SURVEILLANCE (06/15/2022 7:20 PM CDT) [facility] Method Time Signature COVID-19 Not Detected Not Detected [facility] Comment: This test was developed and its performa nce characteristics determined by [facility] [employer]. This testing, RT-PCR, has been authorized by [...] 06/15 PM CDT 7:32 PM CDT Narrative [facility] - 06/15/2022 8:08 PM CDT Preferred specimen is Nasopharyngeal swab Is the patient a healthcare employee: No Is the patient a [place] [facility] Employee : No Gideon Dyer MD LABORATORY Performing Organization Address City/[facility] Code Phon e Number [facility] [place] [address] PRECAUTIONARY TUBE (06/15/2022 7:20 PM CDT) Patholo gist Method Time Signature Prec Tube Precautionary [facility] Blood Bank Specimen Received. Specimen Anatomical Collection Method Collection Time Receive d Time (Source) Location / / Volume Laterality Blood 06/15/2022 7:20 PM 2 7:43 CDT PM CDT Gideon Dyer MD LAB TRANSFUSION SERVICES Performing Organization Address City/[facility]/ZIP Code Phon e Number [facility] [place] [address] LACTATE (LACTIC ACID) (06/15/2022 7:20 PM CDT) athologist [facility] Lactate 1.4 0.7 - 2.1 [facility] mmol/L Specimen Anatomical Collection Method Collection Time Receive d Time (Source) Location / / Volume Laterality Blood 06/15/2022 7:20 PM 2 7:30 CDT PM CDT Narrative [facility] - 06/15/2022 7:30 PM CDT Send specimen on ice! Gideon Dyer MD LABORATORY Performing Organization Address City/State/ZIP Code Phon e Number [facility] [place] [address] (ABNORMAL) FIBRINOGEN (06/15/2022 7:20 PM CDT) athologist [facility] Fibrinogen 199 (L) 200 - 400 [facility] mg/dL Specimen Anatomical Collection Method Collection Time Receive d Time (Source) Location / / Volume Laterality Blood 06/15/2022 7:20 PM 2 7:41 CDT PM CDT Gideon Dyer MD LABORATORY Performing Organization Address City/State/ZIP Code Phon e Number [facility] [place] [address] ED HEMOGLOBIN TOTAL (ED ONLY) (06/15/2022 7:20 PM CDT) athologist Signature Hgb 13.7 13.1 - 17.5 [facility] g/dL Specimen Anatomical Collection Method Collection Time Receive d Time (Source) Location / / Volume Laterality Blood 06/15/2022 7:20 PM 2 7:30 CDT PM CDT Gideon Dyer MD LABORATORY Performing Organization Address [facility]/ZIP [facility] Phon e Number [facility] [place] [address] (ABNORMAL) ED CHEMISTRY LABS(NA,K,CL,CO2,GLU,CREAT,CA-IONIZED,ANION GAP) (06/15/2022 7:20 PM CDT) Analysis Performed At Patho logist Time Signature Sodium 140 135 - 148 [facility] mEq/L Chloride 109 (H) 92 - 108 [facility] mEq/L AnGap 8 8 - 16 [facility] mEq/L Glucose 186 (H) 70 - 100 [facility] mg/dL ICA, Actual 4.44 4.40 - [facility] 5.20 mg/dL ICA, pH 4.28 (L) 4.40 - [facility] Corrected 5.20 mg/dL Creatinine 1.00 0.70 - [facility] 1.25 mg/dL BICARB 24 22 - 26 [facility] mEq/L eGFR, High 105 >=60 [facility] ml/min/1.7 3m2 Comment: Calculated using CKD-EPI equati on eGFR, Low 90 >=60 ml/min/1.73m2 [facility] Comment: Calculated using CKD-EPI equati on Potassium 3.6 3.5 - 5.3 mEq/L [facility] Specimen Anatomical Collection Method Collection Time Receive d Time (Source) Location / / Volume Laterality Blood 06/15/2022 7:20 PM 7:30 CDT PM CDT Gideon Dyer MD LABORATORY Performing Organization Address [facility]/ZIP Code Phon e Number [facility] [place] [address] (ABNORMAL) CBC WITH PLTS/AUTO DIFF (06/15/2022 7:20 PM CDT) Patholo gist Method Time Signature WBC 14.21 (H) 4.00 - [facility] 10.00 k/cmm RBC 4.65 4.60 - [facility] 6.00 m/cmm Hgb 13.0 (L) 13.1 - [facility] 17.5 g/dL Hematocrit 39.7 (L) 40.0 - [facility] 51.0 % MCV 85.4 80.0 - [facility] 100.0 fL MCH 28.0 25.0 - [facility] 32.0 pg MCHC 32.7 31.0 - [facility] 36.0 g/dL RDW 13.2 11.5 - [facility] 14.5 % Plt 294 150 - 400 [facility] k/cmm MPV 10.6 6.5 - 12.5 [facility] fL Automated Abs 10.31 (H) 1.70 - [facility] Neutrophil 6.50 k/cmm Comment: Preliminary ANC, Final Result t o Follow Abs Immature Granulocyte 0.26 (H) 0.00 - 0.09 k/cmm [facility] Comment: The Immature Granulocyte Absolu te count contains metamyelocytes and myelocytes. Abs Neutrophil 10.31 (H) 1.70 - 6.50 k/cmm [facility] B Abs Lymphocyte 2.74 0.80 - 4.00 k/cmm [facility] B Abs Monocyte 0.67 0.20 - 1.00 k/cmm [facility] Abs Eosinophil 0.20 0.00 - 0.60 k/cmm [facility] B Abs Basophil 0.03 0.00 - 0.20 k/cmm [facility] Specimen Anatomical Collection Method Collection Time Receive d Time (Source) Location / / Volume Laterality Blood 06/15/2022 7:20 PM 2 7:41 CDT PM CDT Gideon Dyer MD LABORATORY Performing Organization Address City/State/ZIP Code Phon e Number [facility] [place] [address] BLOOD GASES (06/15/2022 7:20 PM CDT) P athologist Signature PH Anish 7.33 7.32 - 7.42 [facility] PCO2 Anish 46 41 - 51 [facility] mmHG PO2 Anish 35 25 - 40 [facility] mmHG Bicarb Anish 24 24 - 28 [facility] mEq/L O2 Sat Anish 62 % [facility] Base Exc Anish -2.9 -10.0 - 2.0 [facility] mEq/L Specimen Anatomical Collection Method Collection Time Receive d Time (Source) Location / / Volume Laterality Blood Venous 06/15/2022 7:20 PM 2 7:30 CDT PM CDT Gideon Dyer MD LABORATORY Performing Organization Address City/State/ZIP Code Phon e Number [facility] [place] [address] [address] [facility] ED US CRITICAL CARE (06/15/2022 7:16 PM [...] Given 06/19/2022 4:13 PM CDT 10 mg cyclobenzaprine (FLEXERIL) tablet 5 mg Given 06/27/2022 [...] dose on Thu06/16/22 at 2100, Until Discontinued melatonin tablet 3 mg Given 06/25/2022 9:52 [...] dose on 06/23/22 at 1400, Until Discontinued Given 06/26/2022 8:27 [...] hollis RN)135 (Given - Provider: Vargas Whitman RN)2035 (Given - Provider: Shanice Nieves RN) 0923 (Given - Provider: Vargas hollis RN)1442 (Given - Provider: Vargas Whitman, RASHEL) 975 mg, Oral, TID, First dose on [...] RN)1442 (Given - Provider: Vargas Whitman RN) 5 [...] CELED) 0000 (Given - Provider: Peace Waite RN)0756 (Given - Provider: Vargas Whitman RN) 30 mg, Subcutaneous, Q12H, First dose on Thu06/24/22 at 2335, Until Discontinued enoxaparin (LOVENOX) 40 mg/0.4 mL injection 40 mg 194 (Given - Provider: Elva Adamson, RASHEL) 0827 (Given - Provider: Vargas hollis RN)203 (Given - Provider: Shanice Nieves, RASHEL) 0922 (Given - Provider: Vargas hollis RN) 40 mg, Subcutaneous, Q12H, First dose (a fter last modification) on Thu06/25/22 at 2000, Until Discontinued GABApentin (NEURONTIN) capsule 400 mg 0752 (Given - Pr ovider: Vargas Whitman RN)1356 (Given - Provider: Vargas Whitman RN)1947 (Given - Provider: Elva Adamson RN) 08 (Given - Provider: Vargas hollis RN)135 (Given - Provider: Vargas Whitman, RASHEL)2036 (Given - Provider: Shanice Nieves RN) 0924 (Given - Provider: Vargas hollis RN)1442 (Given - Provider: Vargas Whitman RN) 400 mg, Oral, TID, First dose (after las t modification) on Thu06/21/22 at 1400, Until Discontinued insulin ASPART (NovoLOG) [...] Elva Adamson RN - Reason: Per protocol) 162 (Dual Sign-Off - Provider: Tamera Shaw, RASHEL)162 (Given - Provider: Tamera Shaw, RASHEL) 300: 3 units, Glucose 301-350: 4 units, Glucose 351-400: 5 units, Glucose 401- 500: 6 units, Glucose GREATER THAN 501: 7 units and call provider, Subcutaneous, TID AC, First dose on Thu06/16/22 at 1130, Until Discontinued insulin ASPART (NovoLOG) [...] Vargas Whitman RN - Reason: Patient refused) 0828 (Given - Provider: Vargas Whitman RN) 09 (Given - Provider: Vargas hollis, RASHEL) 30 mL, Oral, DAILY, First dose on Thu06/21/22 at 0925, Until Dis continued normal saline flush 0.9 % solution 10 mL 0757 (Given - Provider: Vargas Whitman, RASHEL)194 (Given - Provider: Elva Adamson RN) 0837 (Given - Provider: Vargas Whitman RN)2036 (Given - Provider: Shanice Nieves, RASHEL) 0930 (Given - Provider: Vargas hollis, RN) 10 mL, IV Push, Q12H, First dose on Thu06/17/22 at 0800, Until D iscontinued polyethylene glycol 3350 (MIRALAX;GLYCOLAX) packet 17 g 0753 (Not Given (removes Due time) - Provider: Vargas Whitman RN - Reason: Patient refused)1946 (Given - Provider: Elva Adamson RN) 08 (Given - Provider: Vargas Whitman RN)2036 (Not Given (removes Due time) - Provider: Shanice Nieves RN - Reason: Patient refused - Comment: BM x 3 today) 921 (Given - Provider: Vargas Whitman RN) 17 g, Oral, BID, First dose (after last modification) on 06/21/22 at 2000, Until Discontinued sennosides-docusate sodium (STOOL SOFTENER/LAXATIVE) 8 .6-50 mg tablet 1 tablet 075 (Not Given (removes Due time) - Provider: Vargas Whitman RN - Reason: Patient refused)1946 (Given - Provider: Elva Adamson RN) 826 (Given - Provider: Vargas Whitman RN)2035 (Given - Provider: Shanice Nieves RN) 0924 (Given - Provider: Vargas hollis RN) [...] CANCELED) 0248 (Given - Provider: Peace Waite, RN)0657 (Given - Provider: Peace Waite RN)1210 (Given - Provider: Vargas Whitman RN)1529 (Given - Provider: Elva Adamson RN)1947 (Given - Provider: Elva Adamson RN) 0559 (Given - Provider: Shanice Nieves RN) 0.5 mg, IV Push, Q4H PRN, Starting on Mo n 06/16/22 at 0944, Until Cathy 06/26/22 at 1038, Severe Pain (Use First) hydrOXYzine (ATARAX;VISTARIL) tablet 25-50 mg 0442 (Gi anish - Provider: Natalia Romero RN)0935 (Given - Provider: Vargas Whitman RN)1356 (Given - Provider: Vargas Whitman, RASHEL)2152 (Given - Provider: Elva Adamson RN) 0250 [...] 3 mg 2151 (Given - Provider: Elva Adamson, RASHEL) 3 mg, Oral, BEDTIME PRN, Starting on [...] Peace Waite RN)0524 (Given - Provider: Roger Fall RN)0936 (Given - Provider: Vargas Whitman RN)1355 (Given - Provider: Vargas Whitman RN)1747 (Given - Provider: Elva Adamson RN) 0249 (Given - Provider: Shanice Nieves, RASHEL)0957 (Given - Provider: Vargas Whitman RN)1352 (Given - Provider: Vargas Whitman RN)1755 (Given - Provider: Tamera Shaw RN) 0051 (Given - Provider: Shanice Nieves, RASHEL)0501 (Given - Provider: Shanice Nieves RN)0924 (Given - Provider: Vargas Whitman RN) 5-10 mg, Oral, Q4H PRN, Starting on Thu06/16/22 at 0125, Until Thu06/27/22 at 2104, Moderate Pain (Use First) 2151 (Given - Provider: Elva Adamson RN) Linked Groups Order Group 1: DC MED REC REVIEW BY PHARMACYJump to med Discharge Date: 06/26/2022
Discharge L ocation: Home
Anticipated Discharge Time: Now
Discharge Medication Orders: DC Med Orders Final
Does not apply, PROTOCOL, Starting on Cathy 06/26/22 at 1546, Until 06/27/22 at 2104 And Discharge Med Rec Final Review by Pharmacy (COMPLETED) Routine, Order to be placed by provider after medications have been entered for discharge and are ready for review by Pharmacist. This order can be placed multiple times if changes or additions have bee n made to medications for discharge. Cho ose the Preliminary DC Med Rec review [...]
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
--- OUTSIDE RECORDS SUMMARY | 2022-07-17 10:17 | XMS_ITS | Encounter Summary ---
:1975 Author Organization [facility] Address [address] [facility] [place] [address] Phone Care Team Providers Name Role Phone Unavailable Primary Care Provider Unavailable Reason for Visit Reason Comments Wound Encounter Details Date Type Department Care Team Description 05/24/2007 Nurse Only [facility] [place] Burn/Wound Clin ic Joce Mason MD [address] [facility] Mail Code P5 [place] [address] Open Wound of Arm [address] [place] [address], [facility] Nurse [address] (Primary Dx) P4.670 [place], [place] [address] Social History Tobacco Use Types Packs/Day Years Used Date Smoking Tobacco: Never Alcohol Use Standard Drinks/Week Comments Not Asked 0 (1 standard drink = 0.6 oz pure alcoho l) Sex Assigned at Date Recorded Not on file documented as of this encounter Progress Notes Aline Chavez RN - 05/24/2007 4:56 PM CDT BURN AND WOUND PROCEDURE DIAGNOSIS: Encounter Diagnoses Code Name Primary? 884.0B Open Wound of Arm Yes Plan: PF DEBRIDEMENT, SKIN, FULLTHICKNESS D: Wound Description: Location: left forearm Size: < 1 % Depth: partial thickness Wound Status: red hypertrophic tissue to center of healed wd A: Wound Care: Cleansing: technicare and H2O Topical: Bacitracin and Other: silver nitrate Dressing: Adaptic: small 1 Kerlix: 2 inch: 1 Dermax: Sizes: 6 Sutures/paulette removed: NA R: S/S Infection: No Culture: No Pain Management: tolerated procedure well Supplies: 2 day supply Time: 20 P: F/U Appointments: 05/31/07 abc.06/04/07 Plastic surgery clinic Patient/Family Teaching: Keep dressings clean, dry and intact and Burn and wound healing: Comments: Sultana LUGO evaluated today,to continue daily bacitracin dressing change at home. documented in this encounter Plan of Treatment Upcoming Encounters Date Type Specialty Care Team Description 07/22/2022 Appointment RADIOLOGY Roosevelt Brown MD [address] [place] [address] Scheduled 1, [place] [address] [place] [address] 07/22/2022 Office Visit ORTHOPEDICS Miri Matthew MD [address] [place] [address] Scheduled 1, [place] [address] [place] [address] 07/22/2022 Office Visit Interventional Radiology Provider, Hesham haq Scheduled 1, [place] [address] [place] [address] 07/25/2022 Appointment RADIOLOGY Patrice Hollins MD [address] [place] [address] Scheduled 1, [place] 701 [place] [address] 07/25/2022 Office Visit NEUROSURGERY Briana Kaplan PA -C [address] [place] [address] [phone] Scheduled 1, [place] [address] [place] [address] 07/25/2022 Appointment PHYSICAL MEDICINE AND REHAB Lore Aguilar, PT Scheduled [address] [place] [address] (Wo rk) 08/05/2022 Appointment ORTHOPEDICS 1, Issever[place]igerian Scheduled 701 [place] [address] 08/05/2022 Appointment RADIOLOGY Roosevelt Brown MD [address] [place] [address] Scheduled 1, [place] 701 [place] [address] 08/05/2022 Appointment RADIOLOGY Roosevelt Brown MD [address] [place] [address] Scheduled 1, [place] 701 [place] [address] 08/05/2022 Office Visit ORTHOPEDICS Roosevelt Brown MD [address] [place] [address] Scheduled 1, [place] 701 [place] [address] documented as of this encounter Visit Diagnoses Diagnosis Open wound of arm - Primary Multiple and unspecified open wound of u pper limb, without mention of complication documented in this encounter
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
--- OUTSIDE RECORDS SUMMARY | 2022-07-17 10:17 | XMS_ITS | Encounter Summary ---
:1975 Author Organization [facility] Address [address] [place] [address] Phone Care Team Providers Name Role Phone Unavailable Primary Care Provider Unavailable Encounter Details Date Type Department Care Team Description 06/15/2022 Travel Social History Tobacco Use Types Packs/Day [...] RADIOLOGY Roosevelt Brown MD [address] [place] [address] Scheduled 1, [place] 701 [place] [address] 07/22/2022 Office Visit ORTHOPEDICS Miri Matthew MD 701 [place], [place] [phone] Scheduled 1, [place] 701 [place] [address] 07/22/2022 Office Visit Interventional Radiology Provider, Hesham haq Scheduled 1, [place] 705 [place] [address] 07/25/2022 Appointment RADIOLOGY Patrice Hollins MD [address] [address] Scheduled 1, [place] 701 [place] [address] 07/25/2022 Office Visit NEUROSURGERY Eusebio, Briana Reyes, PA IbisC [address] [place] [address] Scheduled 1, [place] 701 [place] [address] 07/25/2022 Appointment PHYSICAL MEDICINE AND REHAB Lore Aguilar, PT Scheduled [address] [place] [address] (Wo rk) 08/05/2022 Appointment ORTHOPEDICS 1, [place] Scheduled 701 [place] [address] 08/05/2022 Appointment RADIOLOGY Roosevelt Brown MD [address] [place] [address] Scheduled 1, [place] [address] [place] [address] 08/05/2022 Appointment RADIOLOGY Roosevelt Brown MD [address] [place] [address] Scheduled 1, [place] [address] [place] [address] 08/05/2022 Office Visit ORTHOPEDICS Roosevelt Brown MD [address] [place] [address] Scheduled 1, [place] [address] [place] [address] documented as of this encounter Visit Diagnoses Not on filedocumented in this encounter
--- OUTSIDE RECORDS SUMMARY | 2022-07-17 10:17 | XMS_ITS | Encounter Summary ---
:[address] [facility] Address [address] [place] [address] Phone Care Team Providers Name Role Phone Unavailable Primary Care Provider Unavailable Reason for Visit Reason Comments Arm Laceration Encounter Details Date Type Department Care Team Description 05/07/[address] [facility] Burn/Wound Clin ic Joce Mason MD [address] [facility] Mail Code P5 [place] [address] Open Wound of Arm [address] [facility] , [facility] Nurse [address] (Primary Dx) P4.670 [place], [place] [address] Social History Tobacco Use Types Packs/Day Years Used Date Smoking Tobacco: Never Alcohol Use Standard Drinks/Week Comments Not Asked 0 (1 standard drink = 0.6 oz pure alcoho l) Sex Assigned at Date Recorded Not on file documented as of this encounter Progress Notes Alvaro Syed RN - 05/07/2007 2:23 PM CDT BURN AND WOUND PROCEDURE DIAGNOSIS: Encounter Diagnoses Code Name Primary? 884.0B Open Wound of Arm Yes D: Wound Description: Location: forearm Size: small Depth: partial thickness Wound Status: healing A: Wound Care: Cleansing: technicare and H2O Topical: Bacitracin Dressing: Adaptic: small 2 Kerlix: 4 inch: 1 Dermax: Sizes: None Sutures/paulette removed: NA R: S/S Infection: No Culture: No Pain Management: self medication prior to appointment Supplies: 2 day supply Time: 30 minutes P: F/U Appointments: Thursday abc Patient/Family Teaching: signs/symptoms of infection Comments: healing well skin hypertropic - silver nitrate sticks used. documented in this encounter Plan of Treatment Upcoming Encounters Date Type Specialty Care Team Description 07/22/2022 Appointment RADIOLOGY Roosevelt Brown MD [address] [place] [address] Scheduled 1, [place] [address] [place] [address] 07/22/2022 Office Visit ORTHOPEDICS Miri Matthew MD 701 [place] [address] Scheduled 1, [place] [address] [place] [address] 07/22/2022 Office Visit Interventional Radiology Provider, Int d Scheduled 1, [place] [address] [place] [address] 07/25/2022 Appointment RADIOLOGY Patrice Hollins MD [address] [address] Scheduled 1, [place] [address] [place] [address] 07/25/2022 Office Visit NEUROSURGERY Briana Kaplan PA -C [address] [place] [address] Scheduled 1, [place] [address] [place] [address] 07/25/2022 Appointment PHYSICAL MEDICINE AND REHAB Lore Aguilar, PT Scheduled [address] [place], [place] [phone] (Wo rk) 08/05/2022 Appointment ORTHOPEDICS 1, [place] Scheduled 1 [place] [address] 08/05/2022 Appointment RADIOLOGY Roosevelt Brown MD [address] [place] [address] Scheduled 1, [place] 701 [place] [address] 08/05/2022 Appointment RADIOLOGY Roosevelt Brown MD [address] [place] [address] Scheduled 1, [place] 701 [place] [address] 08/05/2022 Office Visit ORTHOPEDICS Roosevelt Brown MD [address] [place] [address] Scheduled 1, [place] 701 [place] [address] documented as of this encounter Visit Diagnoses Diagnosis Open wound of arm - Primary Multiple and unspecified open wound of u pper limb, without mention of complication documented in this encounter
--- OUTSIDE RECORDS SUMMARY | 2022-07-17 10:17 | XMS_ITS | Encounter Summary ---
:1975 Author Organization [facility] Address [address] [facility] [place] [address] Phone Care Team Providers Name Role Phone Unavailable Primary Care Provider Unavailable Reason for Visit Reason Comments Abrasion degloving to L arm Encounter Details Date Type Department Care Team Description 04/09/2007 Nurse Only [facility] Burn/Wound Clin ic Joce Mason MD [address] [facility] Mail Code P5 [place] [address] Abrasion or Friction [address] Nurse [address] Burn of Forearm without P4.670 Infection (Primary Dx) [place], [place] [address] Social History Tobacco Use Types Packs/Day Years Used Date Smoking Tobacco: Never Assessed Sex Assigned at Date Recorded Not on file documented as of this encounter Progress Notes Jayda Stephenson RN - 04/09/2007 8:19 AM CDT BURN AND WOUND PROCEDURE DIAGNOSIS: Encounter Diagnoses Code Name Primary? 913.0B Abrasion or Friction Burn of Forearm without Infection Yes Plan: PF DEBRIDEMENT, SKIN, FULLTHICKNESS D: Wound Description: Location: L arm/shoulder Size: Depth: deep partial thickness L shoulder and full thickness L forearm Wound Status: marbled wound bed with yellow fibrinous tissue and granulation tissues to forearm; L shoulder sutures intact but has some yellowish drainage. A: Wound Care: Cleansing: technicare and H2O Topical: Silvadene to forearm and Bacitracin to shoulder Dressing: Adaptic: large 1 Kerlix: 4 inch: 1 CMG (Coarse Mesh Gauze): 1 Island Dressing 3 Dermax: Sizes: 6 Sutures/paulette removed: suture (s) intact to shoulder R: S/S Infection: No Culture: No Pain Management: self medication prior to appointment Supplies: 3 days Time: 45 minutes P: F/U Appointments: 04-13-07 staff to see regarding possible surgery Patient/Family Teaching: signs/symptoms of infection , exercise and elevation of extremity, Diet: High calorie high protein, Keep dressings clean, dry and intact and Dressing change instructions given to pt and friend using clean technique. Inst to call with questions/concerns. Comments: none documented in this encounter Plan of Treatment Upcoming Encounters Date Type Specialty Care Team Description 07/22/2022 Appointment RADIOLOGY Roosevelt Brown MD [address] [place] [address] Scheduled 1, [place] [address] [place] [address] 07/22/2022 Office Visit ORTHOPEDICS Miri Matthew MD [address] [place] [address] Scheduled 1, [place] [address] [place] [address] 07/22/2022 Office Visit Interventional Radiology Provider, Hesham haq Scheduled 1, [place] [address] [place] [address] 07/25/2022 Appointment RADIOLOGY Patrice Hollins MD [address] [place] [address] Scheduled 1, [place] [address] [place] [address] 07/25/2022 Office Visit NEUROSURGERY Briana Kaplan, PA IbisC [address] [place] [phone] Scheduled 1, [place] 701 [place] [address] 07/25/2022 Appointment PHYSICAL MEDICINE AND REHAB Lore Aguilar, PT Scheduled [address] [place] [address] (Wo rk) 08/05/2022 Appointment ORTHOPEDICS 1, [place] Scheduled 701 [place] [address] 08/05/2022 Appointment RADIOLOGY Roosevelt Brown MD [address] [place] [address] Scheduled 1, [place] 701 [place] [address] 08/05/2022 Appointment RADIOLOGY Roosevelt Brown MD [address] [place] [address] Scheduled 1, [place] 701 [place] [address] 08/05/2022 Office Visit ORTHOPEDICS Roosevelt Brown MD [address] [place] [address] Scheduled 1, [place] 701 [place] [address] documented as of this encounter Visit Diagnoses Diagnosis Abrasion or friction burn of forearm wit hout infection - Primary Elbow, forearm, and wrist, abrasion or f riction burn, without mention of infection documented in this encounter
--- OUTSIDE RECORDS SUMMARY | 2022-07-17 10:17 | XMS_ITS | Encounter Summary ---
:1975 Author Organization [facility] Address [address] [facility] [place] [address] Phone Care Team Providers Name Role Phone Unavailable Primary Care Provider Unavailable Reason for Visit Reason Comments Burn Encounter Details Date Type Department Care Team Description 04/23/2007 Nurse Only [facility] Burn/Wound Clin ic Joce Mason MD [address] [facility] Mail Code P5 [place] [address] Open Wound of Arm [address] [address], [facility] Nurse [address] (Primary Dx) P4.670 [place], [place] [address] Social History Tobacco Use Types Packs/Day Years Used Date Smoking Tobacco: Never Alcohol Use Standard Drinks/Week Comments Not Asked 0 (1 standard drink = 0.6 oz pure alcoho l) Sex Assigned at Date Recorded Not on file documented as of this encounter Progress Notes DILLAN JAQUEZ E - 04/23/2007 10:08 AM CDT BURN AND WOUND PROCEDURE DIAGNOSIS: Encounter Diagnoses Code Name Primary? 884.0B Open Wound of Arm Yes Plan: PF DRESS/DEBRID SMALL BURN NO ANES D: Wound Description: Location: arm Depth: Wound Status: Aquacell dry and intact A: Wound Care: Dressing: Aquacel Ag: intact 4 inch kerlix Dermax: Sizes: 7 Sutures/paulette removed: NA R: S/S Infection: No Culture: No Pain Management: tolerated procedure well Supplies: None Time: 15 minutes P: F/U Appointments: Next week Patient/Family Teaching: Diet: High calorie high protein and Keep dressings clean, dry and intact Comments: aquacell intact. Outer dressing changed. documented in this encounter Plan of Treatment Upcoming Encounters Date Type Specialty Care Team Description 07/22/2022 Appointment RADIOLOGY Roosevelt Brown MD [address] [place] [address] Scheduled 1, [place] 701 [place] [address] 07/22/2022 Office Visit ORTHOPEDICS Miri Matthew MD 701 [place] [address] Scheduled 1, [place] [address] [place] [address] 07/22/2022 Office Visit Interventional Radiology Provider, Int Ra haq Scheduled 1, [place] Citizen [address] [place] [address] 07/25/2022 Appointment RADIOLOGY Patrice Hollins MD [address] [place] [address] Scheduled 1, [place] [address] [place] [address] 07/25/2022 Office Visit NEUROSURGERY Briana Kaplan PA -C [address] [place] [address] Scheduled 1, [place] Citizen 701 [place] [address] 07/25/2022 Appointment PHYSICAL MEDICINE AND REHAB Lore Aguilar, PT Scheduled [address] [place] [address] (Wo rk) 08/05/2022 Appointment ORTHOPEDICS 1, [place] Citizen Scheduled 701 [place] [address] 08/05/2022 Appointment RADIOLOGY Roosevelt Brown MD [address] [place] [address] Scheduled 1, [place] Citizen 701 [place] [address] 08/05/2022 Appointment RADIOLOGY Roosevelt Brown MD [address] [place] [address] Scheduled 1, [place] Citizen [address] [place] [address] 08/05/2022 Office Visit ORTHOPEDICS Roosevelt Brown MD [address] [place] [address] Scheduled 1, [place] Citizen 701 [place] [address] documented as of this encounter Visit Diagnoses Diagnosis Open wound of arm - Primary Multiple and unspecified open wound of u pper limb, without mention of complication documented in this encounter
--- OUTSIDE RECORDS SUMMARY | 2022-07-17 10:17 | XMS_ITS | Encounter Summary ---
:1975 Author Organization [facility] Address [address] [facility] [place] [address] Phone Care Team Providers Name Role Phone Unavailable Primary Care Provider Unavailable Reason for Visit Auth/Cert (Routine) Specialty Diagnoses / Procedures Referred By Contact Refer red To Contact SURGERY Diagnoses Fall, initial encounter Erasmo Gonzalez MD [address] [facility] 701 [place], [place] [address] 5 [phone] [place] [address] Phone: Fax: Referral ID Status Reason Start Date Expiration Date Visits Requ ested Visits Authorized [id number] 1 1 Encounter Details Date Type Department Care Team Description 06/18/2022 Anesthesia Event OR P4 Alex Leos MD [address] [address] 701 Kristan Avelar MD [facility] [address] [id number] [address] [place], [place] [address] Anesthesia Record Procedure Summary Procedure Name Responsible Anesthesia Start Anesthesia Stop Time Anesthesiologist Time ORIF, PELVIS Alex Leos MD 06/18/22 1632 06/18 1848 (Right: Pelvis) Events Date Time Event Comment 06/18/2022 1555 Pre-op End 1632 An Start 1632 An Start Data 1632 IOPAE The intraoperati ve pre-anesthetic evaluation was completed with n o changes noted from the pre-operative anesthesia evalu ation. 1637 An Induction 1639 An Intubation 1829 An Emergence 1838 Extubation 1838 an stop data 1848 An Stop Name Total midazolam (VERSED) 1 mg/mL injection 2 mg fentaNYL (SUBLIMAZE) injection 100 mcg lidocaine 2% injection 100 mg propofol (DIPRIVAN) injection 170 mg rocuronium (ZEMURON) injection 90 mg ondansetron (ZOFRAN) injection 4 mg dexamethasone (DECADRON) 4 mg/mL injection 6 mg ceFAZolin (ANCEF) 2 g IVPB 2 g sugammadex (BRIDION) injection 200 mg HYDROmorphone (DILAUDID) HCl PF 1 mg/mL injection 0.5 mg lactated ringers infusion 1,000 mL Agents Name N20 Air Blood No blood administrations on file. Lines, Drains, and Airways Type Details Placement Removal Incision: 06/18/22; 1759; Hip; 06/18/22 1759 by Upper, Right, Lateral Josse Lloyd, RASHEL Peripheral IV 06/15/22; 0856; No; 18 06/15/22 0856 by 06/23/22 0856 by gauge; Left; Iman Smith, Aundrea Ordonez C, Antecubital; 06/23/22; RN 0856 Urinary Catheter 06/16/22; 0020; Unstable 06/16/22 0020 by 06/19 1642 by spine/pelvic fracture; Ginger Santacruz RN L hamo, Tenzin, RASHEL 16; indwelling single lumen coude tip catheter; 10 mL; Placed in ED; urethral catheter removed; 06/19/22; 1642 Peripheral IV 06/17/22; 1830; Yes; 20 06/17/22 1830 by 2 2103 by USER gauge, 2 1/2 in length; Chintan Gómez RN SER, EPIC Anterior, Left; Upper Arm; 1; 06/27/22; 2103 documented in this encounter Social History Tobacco [...] encounter OR Notes Anesthesia Postprocedure Evaluation - Alex Leos MD - 06/18/2022 9:10 PM CDT Anesthesia Post Eval Patient: Bertram Glass-Chel Procedure(s) Performed: ORIF, PELVIS (Right: Pelvis) Anesthesia type: General () Patient location: PACU Patient status: Post-procedure vital signs reviewed and stable Level of Consciousness: Awake Post-op pain: Adequate Respiratory: Stable Cardiovascular: Stable PONV status: none Fluid status: Acceptable Last Vitals: Vitals Value Taken Time BP 137/81 06/18/222044 Temp 35.7 ??C (96.2 ??F) 06/18/222030 Pulse 95 06/18/222044 Resp 16 06/18/222044 SpO2 98 % 06/18/222044 Anesthesia Procedure Notes - Rissa Person APRN, CRNA - 06/18/2022 5:00 PM CDTAssociated Order(s): Intubation/Airway AIRWAY/INTUBATION PROCEDURE GlideScope (Type: Surgical Anesthesia) Process/Method: sedated and paralyzed Indications for procedure: surgery Assessment: vocal cords open and clear Preoxygenation: mask Device Device used: Glidescope Supporting device: Blade size: 3 The patient was intubated with a 7.5 mm standard endotracheal tube inflated to seal and secured at 24 cm to Teeth Grade: I Narrative 1 intubation attempt(s) confirmed in 0-30 sec Intubation Assessment: +ETCO2, EBBS and fog in ETT Ease of masking (I-easy to IV-difficult): I Ease of intubation (I-easy to IV-difficult): I Dentition Assessment: dentition unchanged and oral mucosa unchanged Performed by: PUBLIC IMPROVEMENT INSPECTOR: Rissa Person APRN, CRNA Additional Notes Glidescope used d/t patient being down in bed with traction to leg Events: @LPPLINK([id number])@ Anesthesia Preprocedure Evaluation - Jeet Vazquez MD - 06/18/2022 3:37 PM CDT Anesthesia Pre-Evaluation Summary Statement: This is a 46 y.o. year old patient scheduled for ORIF, PELVIS (Right: Pelvis). Anesthesia Evaluation Internal or external H&P reviewed, patient examined and changes and/or additions made as needed Additional ROS/Med Hx Findings: Pt is a 46yo M with pelvic fracture 2/2 fall from scaffolding, plan today for ORIF pelvis. Trauma: Fall from scaffolding approx 30 feet 06/15/22. Pulmonary - normal exam (-) tobacco use, wheezes Neurological ROS comment: T12 compression fracture Psychiatric Cardiovascular - normal exam Rhythm: regular Rate: normal Endo Musculoskeletal (+) fracture (R acetabular and sacral fracture), HEENT GI (+) obesity, ROS comment: Rectal hematoma Hematologic/Onc (+) anemia, /Renal/Metal Fitter Airway Mallampati: II TM distance: >3 FB Neck ROM: full Mouth Opening: good Dental - normal exam Risk of dental damage discussed with patient/guardian who acknowledges understanding. OB Other Physical Exam Anesthesia Plan ASA 2 general intravenous induction Maintenance: Balanced Post-op Care: routine analgesia A language teacher was used. Anesthetic plan and risks discussed with patient. The use of blood products has been discussed with the patient, and consented by patient. Plan discussed with PUBLIC IMPROVEMENT INSPECTOR. Vitals: 06/18/22 1527 BP: 128/79 Pulse: Resp: Temp: SpO2: documented in this encounter Miscellaneous Notes Anesthesia Handoff Note - Chintan Calles APRN, CRNA - 06/18/2022 6:46 PM CDT Anesthesia Post Handoff Patient: Bertram Glass-Chel Procedure(s) Performed: ORIF, PELVIS (Right: Pelvis) Patient was stable and nail beds/oral mucosa pink at time of handoff. Patient location: PACU Transportation: Patient was not placed on High Flow Oxygen. . Anesthesia Type: general Patient did not meet fast track criteria. Report to RN Last Vitals: Vitals: 06/18/22 1605 BP: 131/86 (96) Pulse: 97 Resp: 12 Temp: 36.5 ??C (97.7 ??F) SpO2: 96% Anesthesia Extubation Note - Chintan Calles APRN, CRNA - 06/18/2022 6:45 PM CDT Anesthesia Extubation Note At the time of extubation the patient was breathing spontaneously, orally suctioned, awake, eyes open, 4-4 on TOF with sustained tetany and strong hand grasps for 5 seconds. Extubation details: Spontaneous respirations, High flow oxygen, Oral airway, Pharyngeal reflexes present and Oral ETT removed documented in this encounter Plan of Treatment Upcoming Encounters Date Type Specialty Care Team Description 07/22/2022 Appointment RADIOLOGY Roosevelt Brown MD [address] [place] [phone] Scheduled 1, [facility] [address] [place] [phone] 07/22/2022 Office Visit ORTHOPEDICS Miri Matthew MD [address] [place] [phone] Scheduled 1, [facility] [address] [place] [address] 07/22/2022 Office Visit Interventional Radiology Provider, Hesham haq Scheduled 1, [facility] [address] [place] [address] 07/25/2022 Appointment RADIOLOGY Patrice Hollins MD [address] [place] [phone] Scheduled 1, [facility] [address] [place] [address] 07/25/2022 Office Visit NEUROSURGERY Briana Kaplan PA -C [address] [place] [address] Scheduled 1, [facility] [address] [place] [address] 07/25/2022 Appointment PHYSICAL MEDICINE AND REHAB Lore Aguilar PT Scheduled [address] [place] [address] (Wo rk) 08/05/2022 Appointment ORTHOPEDICS 1, [facility] Scheduled [address] [place] [address] 08/05/2022 Appointment RADIOLOGY Roosevelt Brown MD [address] [place] [address] Scheduled 1, [facility] [address] [place] [address] 08/05/2022 Appointment RADIOLOGY Roosevelt Brown MD [address] [place] [address] Scheduled 1, [facility] [address] [place] [address] 08/05/2022 Office Visit ORTHOPEDICS Roosevelt Brown MD [address] [place] [address] Scheduled 1, [facility] [address] [place] [address] documented as of this encounter Procedures Procedure Name Priority Date/Time Associated Diagnosis Comme nts INTUBATION Routine 06/18/2022 5:00 PM Results f or this CDT procedure are i n the results section . documented in this encounter Results Intubation/Airway (06/18/2022 5:00 PM CDT) Narrative Rissa Person APRN, CRNA - 5:00 PM CDT Rissa Person APRN, [...] d and oral mucosa unchanged Performed by: PUBLIC IMPROVEMENT INSPECTOR: Rissa Person APRN, CRNA Additional Notes Glidescope used d/t patient being down i n bed with traction to leg Events: @PLINK([id number])@ Alex Leos MD PROCEDURES documented in this encounter Visit Diagnoses Not on filedocumented in this encounter Administered Medications Inactive Administered Medications - up to 3 most recent administrations Medication Order MAR Action Action Date Dose Rate Site ceFAZolin (ANCEF) IVPB Given 06/18/2022 5:00 PM CDT 2 g Intravenous, INTRA-OP PRN ONCE MAY REPEAT, Starting on Thu06/18/22 at 1700, Until Thu06/18/22 at 1848 dexamethasone (DECADRON) 20 mg/ 5mL inje ction Given 06/18/2022 4:59 PM CDT 6 mg IV Push, INTRA-OP PRN ONCE MAY REPEAT, Starting on Thu06/18/22 at 1659, Until Thu06/18/22 at 1848 fentaNYL (SUBLIMAZE) 100 mcg/2mL injecti on Given 06/18/2022 5:22 PM CDT 50 mcg Intravenous, INTRA-OP PRN ONCE MAY REPEAT, Starting on Thu06/18/22 at 1637, Until Thu06/18/22 at 1848 Given 06/18/2022 4:37 PM CDT 50 mcg HYDROmorphone PF (DILAUDID) 1 mg/mL inje ction Given 06/18/2022 6:44 PM CDT 0.5 mg IV Push, INTRA-OP PRN ONCE MAY REPEAT, Starting on Thu06/18/22 at 1844, Until Thu06/18/22 at 1848 lactated ringers infusion New Bag 06/18/2022 6:46 PM CDT Intravenous, PERIOP CONTINUOUS, Starting on Thu06/18/22 at 1700, Until Thu06/18/22 at 1848 New Bag 06/18/2022 4:32 PM CDT lidocaine 2% injection Given 06/18/2022 4:37 PM CDT 100 mg Intravenous, INTRA-OP PRN ONCE MAY REPEAT, Starting on Thu06/18/22 at 1637, Until Thu06/18/22 at 1848 midazolam (PF) (VERSED) injection Given 06/18/2022 4:34 PM CDT 1 mg IV Push, INTRA-OP PRN ONCE MAY REPEAT, Starting on Thu06/18/22 at 1631, Until Thu06/18/22 at 1848 Given 06/18/2022 4:31 PM CDT 1 mg ondansetron (ZOFRAN) 4 mg/2 mL injection Given 06/18/2022 6:15 PM CDT 4 mg IV Push, INTRA-OP PRN ONCE MAY REPEAT, Starting on Thu06/18/22 at 1815, Until Thu06/18/22 at 1848 propofol (DIPRIVAN) 10 mg/mL injection Given 06/18/2022 4:37 PM CDT 170 mg emulsion Intravenous, INTRA-OP PRN ONCE MAY REPEAT, Starting on Thu06/18/22 at 1637, Until Thu06/18/22 at 1848 rocuronium bromide (ZEMURON) 10 mg/mL Given 06/18/2022 6:06 PM C DT 10 mg injection IV Push, INTRA-OP PRN ONCE MAY REPEAT, Starting on Thu06/18/22 at 1637, Until Thu06/18/22 at 1848 Given 06/18/2022 5:19 PM CDT 10 mg Given 06/18/2022 4:37 PM CDT 70 mg sugammadex (BRIDION) 200 mg/2 mL injecti on Given 06/18/2022 6:28 PM CDT 200 mg IV Push, INTRA-OP PRN ONCE MAY REPEAT, Starting on Thu06/18/22 at 1828, Until 06/18/22 at 1848 documented in this encounter
--- OUTSIDE RECORDS SUMMARY | 2022-07-17 10:17 | XMS_ITS | Encounter Summary ---
:1975 Author Organization [facility] Address [address] [facility] [address] Phone Care Team Providers Name Role Phone Unavailable Primary Care Provider Unavailable Reason for Visit Reason Comments Wound Check Encounter Details Date Type Department Care Team Description 05/15/2007 Nurse Only [facility] Burn/Wound Clin ic Rikki Best MD 701 [facility] [address] [place] [address] Open Wound of Arm [address] Nurse [id number] (Primary Dx) [address] [place], [place] [address] Social History Tobacco Use Types Packs/Day Years Used Date Smoking Tobacco: Never Alcohol Use Standard Drinks/Week Comments Not Asked 0 (1 standard drink = 0.6 oz pure alcoho l) Sex Assigned at Date Recorded Not on file documented as of this encounter Progress Notes Aline Chavez RN - 05/15/2007 4:22 PM CDT BURN AND WOUND PROCEDURE DIAGNOSIS: Encounter Diagnoses Code Name Primary? 884.0B Open Wound of Arm Yes Plan: PF DEBRIDEMENT, SKIN, PARTIAL THICKNESS D: Wound Description: Location: left forearm Depth: partial thickness Wound Status: hypertrophic tissue and red dermis A: Wound Care: Cleansing: technicare and H2O Topical: Bacitracin Dressing: Adaptic: small 1 Kerlix: 4 inch: 1 Dermax: Sizes: 6 R: S/S Infection: No Culture: No Pain Management: tolerated procedure well Supplies: 2 day supply Time: 20 P: F/U Appointments: 05/21/07 abc Patient/Family Teaching: signs/symptoms of infection , exercise and elevation of extremity, Diet: High calorie high protein, Keep dressings clean, dry and intact and Burn and wound healing: Comments: 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 Applied silver nitrate to hypertrophic tissue.Pt will do daily wd care. Possibly will be healed by next visit. documented in this encounter Plan of Treatment Upcoming Encounters Date Type Specialty Care Team Description 07/22/2022 Appointment RADIOLOGY Roosevelt Brown MD [address] [place] [phone] Scheduled 1, [facility] [address] [place] [phone] 07/22/2022 Office Visit ORTHOPEDICS Miri Matthew MD [address] [place] [phone] Scheduled 1, [facility] [address] [place] [address] 07/22/2022 Office Visit Interventional Radiology Provider, Hesham haq Scheduled 1, [facility] [address] [place] [phone] 07/25/2022 Appointment RADIOLOGY Patrice Hollins MD [address] [place] [address] Scheduled 1, [facility] [address] [place] [phone] 07/25/2022 Office Visit NEUROSURGERY Briana Kaplan PA -C [address] [place] [address] [phone] Scheduled 1, [facility] [address] [place] [phone] 07/25/2022 Appointment PHYSICAL MEDICINE AND REHAB Lore Aguilar, PT Scheduled [address] [place] [phone] (Wo rk) 08/05/2022 Appointment ORTHOPEDICS 1, [facility] Scheduled [address] [place] [address] 08/05/2022 Appointment RADIOLOGY Roosevelt Brown MD [address] [place] [phone] Scheduled 1, [facility] [address] [place] [address] 08/05/2022 Appointment RADIOLOGY Roosevelt Brown MD [address] [place] [phone] Scheduled 1, [facility] 701 [place] [address] 08/05/2022 Office Visit ORTHOPEDICS Roosevelt Brown MD [address] [place] [phone] Scheduled 1, [facility] [address] [place] [address] documented as of this encounter Visit Diagnoses Diagnosis Open wound of arm - Primary Multiple and unspecified open wound of u pper limb, without mention of complication documented in this encounter
[2022-07-17] MEDS: MORPHINE 10 MG/ML inj IM (10:18)
[2022-07-17 10:40] VITALS: PULSE 98; RESP 16
== END 2022-07-17 10:40 | disposition home or self-care (01) ==
PROVIDERS: Emergency Provider Emergency Medicine Emergency Medical Services; PCP Family Medicine
DX: M54.16 Radiculopathy, lumbar region (principal); I82.461 Acute embolism and thrombosis of right calf muscular vein
CPT/HCPCS: 93971; 96372; 99284; 99285; J2270

== ENCOUNTER 2022-07-20 05:45 | Emergency (ER) | payer MEDICAID, SELFPAY ==
[2022-07-20 05:57] VITALS: BP 157/115; PULSE 97; RESP 20; TEMP 36.6; O2SAT 97
--- NOTE | 2022-07-20 06:17 | ED.GENADULT ---
HPI - General Adult General Chief complaint: Extremity Pain/Injury, Lower Stated complaint: Pain in RT leg Time Seen by Provider: 07/20/22 05:54 History of Present Illness HPI narrative: 46-year-old man presenting to the emergency department with severe pain in his right leg. He describes a pulsatile burning pain over the back of his right lower leg and his foot this has been present since surgery for pelvic fractures following an accident at [place] approximately 5 weeks ago. He is also in a TLSO brace for what he describes as compression fractures. He had cares at [facility]. He has had apparently 5 visits to the emergency department for pain. Last seen here 3 days ago and noted to have a nonocclusive thrombus in the right leg not thought to be contributing to his pain. Was given Whitetop which he has taken 1 tablet t.i.d. and does not seem to help the pain. He also I believe takes gabapentin. Was initiated with this visit 3 days ago on Xarelto. Has had oxycodone but apparently has that was earlier on, no longer. There is no new injury. No new swelling. No fever. Is not clear to me that he has a primary care provider other than cares prior at [place]. Related Data Home Medications Medication Instructions Recorded Confirmed acetaminophen 325 mg capsule 325 mg PO Q6H PRN 07/17/22 07/17/22 cyclobenzaprine 5 mg tablet 5 mg PO Q8H 07/17/22 07/17/22 gabapentin 400 mg capsule 400 mg PO TID 07/17/22 07/17/22 hydroxyzine HCl 25 mg tablet 25 mg PO Q4H 07/17/22 07/17/22 melatonin 3 mg tablet 3 mg PO DAILY 07/17/22 07/17/22 oxycodone 5 mg capsule 5 mg PO Q8H 07/17/22 07/17/22 rivaroxaban 15 mg tablet (Xarelto) 15 mg PO BID 07/17/22 07/17/22 sennosides 8.6 mg capsule (senna) 8.6 mg PO DAILY 07/17/22 07/17/22 tamsulosin 0.4 mg capsule 0.4 mg PO DAILY 07/17/22 07/17/22 tramadol 50 mg tablet 50 mg PO QHS 07/17/22 07/17/22 Previous Rx's Medication Instructions Recorded hydrocodone 5 mg-acetaminophen 325 1 tab PO Q4-6H PRN pain #20 tabs 07/17/22 mg tablet naproxen 375 mg tablet,delayed 375 mg PO BID PRN pain #20 tabs 07/20/22 release oxycodone-acetaminophen 5 mg-325 1 - 2 tab PO Q6-8H PRN pain #21 07/20/22 mg tablet (Percocet) tabs prednisone 20 mg tablet 40 mg PO DAILY 6 days #12 tabs 07/20/22 sennosides 8.6 mg tablet (senna) 8.6 mg PO DAILY take daily if 07/20/22 taking opioids #30 tabs Allergies Allergy/AdvReac Type Severity Reaction Status Date / Time No Known Drug Allergies Allergy Verified 07/17/22 09:23 Review of Systems Status of ROS: Reports: 6 or more systems reviewed and unremarkable except as noted in History and below [facility] Social History Smoking Status: Never smoker Do you use any of these nicotine containing products: None Second hand tobacco smoke exposure: No How often do you have a drink containing alcohol: never How often do you have six or more drinks on one occasion: Never AUDIT-C Alcohol total score: 0 Non-prescribed substance use: denies use service: No Exam Narrative: Exam Narrative: Is pleasant. Visit is conducted in [place] other/spouse and daughter present. Eyes are closed in apparent discomfort and against the light. Is breathing easily. Mildly restless in apparent pain. TLSO brace is fitted. His right low back and right hip/buttock show relatively fresh surgical scars. There is pain to palpation in this area. Is well perfused peripherally. Appears to be losing muscle mass on the right calf. He has pain to palpation over the right foot generally. Const: Vital Signs, click to edit/add: Vital Signs - 24 hr 07/20/22 05:57 07/20/22 06:18 07/20/22 07:00 Temperature 97.8 F Pulse Rate 85 83 Pulse Rate [Right Pulse Oximeter] 97 Respiratory Rate 20 Blood Pressure Blood Pressure [Le ft Upper Arm] 157/115 H Pulse Oximetry 97 99 99 Oxygen Delivery Me thod Room Air 07/20/22 07:02 07/20/22 08:00 07/20/22 08:02 Temperature 98.4 F Pulse Rate 81 84 88 Pulse Rate [Right Pulse Oximeter] Respiratory Rate Blood Pressure 157/95 H 143/96 H Blood Pressure [Le ft Upper Arm] Pulse Oximetry 100 97 98 Oxygen Delivery Me thod Documenting provider has reviewed patient's vital signs: yes Course Reevaluation(s) Reevaluation #1: Much improved with combination of gabapentin Percocet and ibuprofen. Says the pain sensation in his lower right leg is essentially gone. Vital Signs Vital signs: Initial Vital Signs Temperature 97.8 F 07/20/22 05:57 Temperature Source Temporal Artery Scan 07/20/22 05:57 Pulse Rate 97 07/20/22 05:57 Pulse Rhythm 07/20/22 05:57 Respiratory Rate 20 07/20/22 05:57 Blood Pressure 157/115 H 07/20/22 05:57 Blood Pressure Mean 129 07/20/22 05:57 Pulse Oximetry 97 07/20/22 05:57 Oxygen Delivery Method 07/20/22 05:57 Vital Signs Temperature 97.8 F 07/20/22 05:57 Pulse Rate 97 07/20/22 05:57 Respiratory Rate 20 07/20/22 05:57 Blood Pressure 157/115 H 07/20/22 05:57 Pulse Oximetry 97 07/20/22 05:57 Oxygen Delivery Method 07/20/22 05:57 Temperature 98.4 F 07/20/22 08:02 Pulse Rate 88 07/20/22 08:02 Respiratory Rate 20 07/20/22 05:57 Blood Pressure 143/96 H 07/20/22 08:02 Pulse Oximetry 98 07/20/22 08:02 Oxygen Delivery Method 07/20/22 05:57 Medical Decision Making MDM Narrative Medical decision making narrative: I think at this point would need to trial oral medications that by be available to him as an outpatient. Will need to be arranging regular followup in primary care. Needs to return to surgery for further opinion or thoughts as to what has happened contributing to this pain. Unusual distribution if related to radicular back/sciatic but might benefit from oral steroid course. I have ordered for ibuprofen, gabapentin at 600 mg-he has been taking 400 mg per dose-and 2 tabs of Percocet. Discharge Plan Discharge Clinical Impression: Post-operative pain Patient Disposition: Home w/ Parent or Adult Condition: Improved Additional Instructions: Be sure to follow up with that postop appointment on Thursday. If this pain is going to continue it is very important that you establish primary care locally to help you treat your pain. You can increase your gabapentin to a total of 600 mg per dose at this time. Hydroxyzine accompanying an opiate like Percocet can improve infectivity of pain relief and allow you to take less pills of Percocet per dose. The class a medication called nonsteroidal anti-inflammatories include ibuprofen and naproxen among others. You can take these for now. It may be that just taking medications like ibuprofen or naproxen along with acetaminophen will be enough to help you going forward. Better to take either with a little food. I would discuss taking naproxen and ibuprofen with the pharmacist as you're also taking a blood thinner called apixaban and this can theoretically increase bleeding risk. I do not think that will be a major problem for you. As this pain may be radiating from your back or an inflamed area around a nerve, I have ordered a course of prednisone as well. Stay well-hydrated. I do hope this resolves soon for you. Aseg?rese de hacer un seguimiento con alis jeniffer de postop el elbetr. Si sienna dolor va a continuar, es muy importante que establezca atenci?n primaria localmente para ayudarlo a tratar bright dolor. Puede aumentar bright gabapentina a un total de 600 mg por dosis en sienna momento. La hidroxicina que acompa?a a un opi?bio medical technician rock Percocet puede mejorar la infectividad del alivio del dolor y permitirle dione menos p?ldoras de Percocet por dosis. Los medicamentos de clase A llamados antiinflamatorios no esteroideos incluyen ibuprofeno y naproxeno, entre otros. Puedes tomarlos por ahora. Puede ser que solo dione medicamentos rock el ibuprofeno o el naproxeno junto con el paracetamol sea suficiente para ayudarlo a seguir adelante. Mejor dione cualquiera de los dos con un poco de comida. Discutir?a dione naproxeno e ibuprofeno con el farmac?utico, ya que tambi?n est? tomando un anticoagulante llamado apixaban y esto te?ricamente puede aumentar el riesgo de sangrado. No creo que eso sea un problema importante para usted. [place]co sienna dolor puede estar irradiando desde la espalda o un ?yuridia inflamada alrededor de un nervio, tambi?n he ordenado un curso de prednisona. Mant?ngase sara hidratado. Espero que esto se resuelva pronto para ti. Prescriptions: New sennosides [senna] 8.6 mg tablet 8.6 mg PO DAILY Qty: 30 0RF oxycodone-acetaminophen [Percocet] 5-325 mg tablet 1 - 2 tab PO Q6-8H PRN (Reason: pain) Qty: 21 0RF naproxen 375 mg tablet,delayed release (DR/EC) 375 mg PO BID PRN (Reason: pain) Qty: 20 0RF prednisone 20 mg tablet 40 mg PO DAILY 6 Days Qty: 12 0RF No Action Xarelto 15 mg tablet 15 mg PO BID Rx Instructions: must administer with a meal/food senna 8.6 mg capsule 8.6 mg PO DAILY tramadol 50 mg tablet 50 mg PO QHS oxycodone 5 mg capsule 5 mg PO Q8H gabapentin 400 mg capsule 400 mg PO TID melatonin 3 mg tablet 3 mg PO DAILY acetaminophen 325 mg capsule 325 mg PO Q6H PRN cyclobenzaprine 5 mg tablet 5 mg PO Q8H hydroxyzine HCl 25 mg tablet 25 mg PO Q4H tamsulosin 0.4 mg capsule 0.4 mg PO DAILY hydrocodone-acetaminophen 5-325 mg tablet 1 tab PO Q4-6H PRN (Reason: pain) Qty: 20 0RF Follow Up/Referrals: Gideon Alston MD [Primary Care Provider] - Stand Alone Forms: [facility] Info Instructions
[2022-07-20 06:18] VITALS: PULSE 85; O2SAT 99
[2022-07-20] MEDS: IBUPROFEN 400 MG TABLET 800 MG PO (06:41)
[2022-07-20] MEDS: OxyCODONE/APAP 5-325 TABLET 2 TAB PO (06:41)
[2022-07-20] MEDS: GABAPENTIN 600 MG TABLET PO (06:56)
--- OUTSIDE RECORDS SUMMARY | 2022-07-20 06:56 | XMS_ITS | Encounter Summary ---
:1975 Author Organization [facility] Address [address] [facility] [address] [place] [address] Phone Care Team Providers Name Role Phone Lore Au PT Unavailable Reason for Visit Reason Onset Date Comments ER F/U 07/15/[address] Brown Encounter Details Date Type Department Care Team Description 07/15/2022 Telephone Clinic & Specialty Gorge Dimas, PULVERIZER F/U ([facility] [address] [facility]) Clinic [place] [id number] Social History Tobacco Use Types Packs/Day Years [...] CDT A/R/P: Return call to Bertram using Wallisian phone hourly sign language interpreter. Bertram reports that his pain has improved [...] but call was lost when I added medical interpreter and then he didn't answer when return call was made. medical interpreter left message for Bertram to return call [...] Appointment RADIOLOGY Roosevelt Brown MD [address] [place] [phone] Scheduled 1, [facility] [address] [place] [address] 07/22/2022 Office Visit ORTHOPEDICS Miri Matthew MD [address] [place] [address] Scheduled 1, [facility] [address] [place] [address] 07/22/2022 Office Visit Interventional Radiology Provider, Int Ra d 1, [facility] [address] [place] [address] 07/25/2022 Appointment RADIOLOGY Patrice Hollins MD [address] [place] [phone] Scheduled 1, [facility] [address] [place] [address] 07/25/2022 Office Visit NEUROSURGERY Briana Kaplan PA -C [address] [place] [address] Scheduled 1, [facility] [address] [place] [address] 07/25/2022 Appointment PHYSICAL MEDICINE AND REHAB Lore Aguilar, PT Scheduled [address] [place] [phone] (Wo rk) 08/05/2022 Appointment ORTHOPEDICS 1, [facility] Scheduled [address] [place] [address] 08/05/2022 Appointment RADIOLOGY Roosevelt Brown MD [address] [place] [phone] Scheduled 1, [facility] [address] [place] [address] 08/05/2022 Appointment RADIOLOGY Roosevelt Brown MD [address] [place] [phone] Scheduled 1, [facility] [address] [place] [address] 08/05/2022 Office Visit ORTHOPEDICS Roosevelt Brown MD [address] [place] [address] Scheduled 1, [facility] [address] [place] [address] Scheduled Orders Name Type Priority Associated Diagnoses Order S chedule XR PELVIS 3 V AP + Imaging Routine Pelvic ring fracture, Expected: 07/22/2022 INLET/OUTLET closed, initial encounter (A pproximate), () Expires: 2022 documented as of this encounter Visit Diagnoses Diagnosis Pelvic ring fracture, closed, initial en counter () - Primary documented in this encounter Care Teams Senior Bioinformatics Specialist Relationship Specialty Start Date End Date Lore Au, PT Physical Therapist Physical Therapy 07/09/22 [address] [place] [address] documented as of this encounter
--- OUTSIDE RECORDS SUMMARY | 2022-07-20 06:56 | XMS_ITS | Encounter Summary ---
:1975 [address] [facility] Address [address] [place] [address] Phone Care Team Providers Name Role Phone Unavailable Primary Care Provider Unavailable Reason for Visit Reason Comments Follow-up Encounter Details Date Type Department Care Team Description 07/08/2022 Office Visit Clinic & Specialty Teofilo Brown MD [address] [place] [phone] Pelvic ring fracture, closed, subsequent encounter () (Primary Dx); Center Orthopedic 1, [facility] [address] [place] [address] Fracture of right wrist Clinic [address] [place] [address] Social History Tobacco Use Types Packs/Day [...] Continue with Xarelto per medicine clinic providers. [employer] application provided through February/2023. Return to the orthopedic clinic for follow up with Dr. Brown in 4 weeks with new x-rays at that time. Cast will be removed prior to x-rays. documented in this encounter Progress Notes Miri Matthew MD - 07/08/2022 8:15 AM CDT Images from the original note were not included. [facility] [place] [address] Orthopedic Clinic Visit DATE OF VISIT: 07/08/2022 [...] RADIOLOGY Roosevelt Brown MD [address] [place] [address] Scheduled 1, [facility] [address] [place] [address] 07/22/2022 Office Visit ORTHOPEDICS Miri Matthew MD [address] [place] [address] Scheduled 1, [facility] [address] [place] [address] 07/22/2022 Office Visit Interventional Radiology Provider, Int Ra d 1, [facility] [address] [place] [address] 07/25/2022 Appointment RADIOLOGY Patrice Hollins MD [address] [place] [phone] Scheduled 1, [facility] [address] [place] [address] 07/25/2022 Office Visit NEUROSURGERY Briana Kaplan, PA [facility] [address] [place] [address] [phone] Scheduled 1, [facility] [address] [place] [address] 07/25/2022 Appointment PHYSICAL MEDICINE AND REHAB Lore Aguilar, PT Scheduled [address] [place] [address] (Wo rk) 08/05/2022 Appointment ORTHOPEDICS 1, [facility] Scheduled [address] [place] [address] 08/05/2022 Appointment RADIOLOGY Roosevelt Brown MD [address] [place] [address] Scheduled 1, [facility] [address] [place] [address] 08/05/2022 Appointment RADIOLOGY Roosevelt Brown MD [address] [place] [address] Scheduled 1, [facility] [address] [place] [address] 08/05/2022 Office Visit ORTHOPEDICS Roosevelt Brown MD [address] [place] [address] Scheduled 1, [facility] [address] [place] [address] Scheduled Orders Name Type Priority Associated Diagnoses [...]
--- OUTSIDE RECORDS SUMMARY | 2022-07-20 06:56 | XMS_ITS | Encounter Summary ---
:1975 Author Organization [facility] Address [address] [place] [address] Phone Care Team Providers Name Role Phone Unavailable Primary Care Provider Unavailable Encounter Details Date Type Department Care Team Description 07/08/2022 Hospital Encounter Clinic & Specialty Roosevelt Brown MD [address] [place] [phone] Center XRAY 1, [facility] [address] [place] [address] [place] [address] Social History Tobacco Use Types Packs/Day Years [...] hours as needed (pain adjunct (give with opioid)).[place] 1-2 c??psulas (25-50 mg) por v??a oral [...] mg) by mouth 3 TABS times daily. [place] 1 tableta (5 mg) por la boca 3 veces al mandy. polyethylene glycol Take 17 g by mouth 510 g 0 06/26/20 22 3350 (MIRALAX/GLUCOLAX) twice daily.Take 1 17 gm/scoop oral powder capful to 17 gm cuate mixed with full glass of water twice every day as directed.[place] 17 g por v??a oral dos veces al d??a. [place] 1 tap??n hasta la minerva de 17 g mezclado con un vaso lleno de agua dos veces al d??a seg??n las indicaciones. sennosides-docusate Take 1 tablet by 40 each 0 06/26/2022 sodium (STOOL mouth twice daily. SOFTENER/LAXATIVE) [place] 1 tableta por 8.6-50 mg oral tablet la boca 2 veces al mandy. GABApentin (NEURONTIN) Take 1 capsule 120 capsule 0 06/26/20 22 400 mg oral capsule (400 mg) by mouth 3 times daily. [place] 1 capsula (400 mg) por la boca 3 veces al mandy. tamsulosin (FLOMAX) 0.4 Take 1 capsule 10 capsule 0 06/27/20 22 mg oral capsule (0.4 mg) by mouth daily after meal.Take 30 minutes after same meal each day. Do NOT crush or chew.[place] 1 c??psula (0,4 mg) por v??a oral todos los d??as despu??s de ethan comida. [place] 30 minutos despu??s de la misma comida todos los d??as. No triture ni mastique. melatonin 3 mg oral Take 1 tablet (3 20 tablet 0 06/26/2022 tablet mg) by mouth at bedtime as needed for Sleep. [place] 1 tableta (3 mg) por la boca [...] Thrombosis Indications: Blood Clot in a Deep Vein.([place] 1 tableta (20 mg) por v??a oral diariamente con la evonne. 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 rivaroxaban (XARELTO) Take 1 tablet (15 42 tablet 0 06/29/ 022 07/20/2022 15 mg oral mg) by mouth twice tabletIndications: Deep daily with meals Vein Thrombosis for 21 days. Indications: Blood Clot in a Deep Vein. [place] 1 tableta (15 mg) por v??a oral [...] Appointment RADIOLOGY Roosevelt Brown MD [address] [place] [phone] Scheduled 1, [facility] [address] [place] [address] 07/22/2022 Office Visit ORTHOPEDICS Miri Matthew MD [address] [place] [address] Scheduled 1, [facility] [address] [place] [address] 07/22/2022 Office Visit Interventional Radiology Provider, Int d 1, [facility] [address] [place] [address] 07/25/2022 Appointment RADIOLOGY Patrice Hollins MD [address] [place] [address] Scheduled 1, [facility] [address] [place] [address] 07/25/2022 Office Visit NEUROSURGERY Briana Kaplan PA -C [address] [place] [address] Scheduled 1, [facility] [address] [place] [address] 07/25/2022 Appointment PHYSICAL MEDICINE AND REHAB Lore Aguilar, PT Scheduled [address], [place] [address] (Wo rk) 08/05/2022 Appointment ORTHOPEDICS 1, [facility] Scheduled [address] [place] [address] 08/05/2022 Appointment RADIOLOGY Roosevelt Brown MD [address] [place] [address] Scheduled 1, [facility] [address] [place] [address] 08/05/2022 Appointment RADIOLOGY Roosevelt Brown MD [address] [place] [address] Scheduled 1, [facility] [address] [place] [address] 08/05/2022 Office Visit ORTHOPEDICS Roosevelt Brown MD [address] [place] [address] Scheduled 1, [facility] [address] [place] [address] documented as of this encounter Procedures Procedure [...] Stable alignment. Reading Radiologist: Ronal Rouse Roosevelt C Templeman MD X-RAY documented in this encounter Visit Diagnoses Diagnosis Pelvic ring fracture, closed, subsequent encounter () documented in this encounter
--- OUTSIDE RECORDS SUMMARY | 2022-07-20 06:56 | XMS_ITS | Encounter Summary ---
:1975 Author Organization [facility] Address [address] [facility] [place] [address] Phone Care Team Providers Name Role Phone Lore Au PT Unavailable Reason for Referral Consult/Test/Treat (Routine) - New Request Specialty Diagnoses / Procedures Referred By Contact Refer red To Contact Pain Management Diagnoses Post-operative pain Danny Rios MD [address] [place], [place] [address] Referral ID Status Reason Start Date Expiration Date Visits V isits Requested Authorized [id number] New Request 07/15/2022 07/16/2023 1 1 Reason for Visit Reason Comments Back Pain Encounter Details Date Type Department Care Team Description 07/14/2022 - Emergency [facility] [place] Danny Rios MD [address] [place], [place] [address] Post-operative pain 07/15/2022 Department Areli Mccoy MD [address] [place], [place] [address] [address] [place] [address] R1.[address] [place], [place] [address] Social History Tobacco Use Types [...] through Care Everywhere. Managing Pain After Surgery (Finnish)Opioids for Short-Term Treatment of Pain (Finnish)documented in this encounter Medications at Time of [...] hours as needed (pain adjunct (give with opioid)).[place] 1-2 c??psulas (25-50 mg) por v??a oral [...] mg) by mouth 3 TABS times daily. [place] 1 tableta (5 mg) por la boca 3 veces al mandy. polyethylene glycol Take 17 g by mouth 510 g 0 06/26/20 3350 twice daily.Take 1 (MIRALAX/GLUCOLAX) 17 capful to 17 gm gm/scoop oral powder cuate mixed with full glass of water twice every day as directed.[place] 17 g por v??a oral dos veces al d??a. [place] 1 tap??n hasta la minerva de 17 g mezclado con un vaso lleno de agua dos veces al d??a seg??n las indicaciones. sennosides-docusate Take 1 tablet by 40 each 0 06/26/2022 sodium (STOOL mouth twice daily. SOFTENER/LAXATIVE) [place] 1 tableta por 8.6-50 mg oral tablet la boca 2 veces al mandy. GABApentin (NEURONTIN) Take 1 capsule (400 120 capsule 0 400 mg oral capsule mg) by mouth 3 times daily. [place] 1 capsula (400 mg) por la boca 3 veces al mandy. tamsulosin (FLOMAX) Take 1 capsule (0.4 10 capsule 0 022 0.4 mg oral capsule mg) by mouth daily after meal.Take 30 minutes after same meal each day. Do NOT crush or chew.[place] 1 c??psula (0,4 mg) por v??a oral todos los d??as despu??s de ethan comida. [place] 30 minutos despu??s de la misma comida todos los d??as. No triture ni mastique. melatonin 3 mg oral Take 1 tablet (3 20 tablet 0 06/26/2022 tablet mg) by mouth at bedtime as needed for Sleep. [place] 1 tableta (3 mg) por la boca [...] Thrombosis Indications: Blood Clot in a Deep Vein.([place] 1 tableta (20 mg) por v??a oral diariamente con la intake specialist. 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 rivaroxaban (XARELTO) Take 1 tablet (15 42 tablet 0 022 07/20/2022 15 mg oral mg) by mouth twice tabletIndications: daily with meals Deep Vein Thrombosis for 21 days. Indications: Blood Clot in a Deep Vein. [place] 1 tableta (15 mg) por v??a oral [...] with patient. Questions answered, pt verbalizes understanding. senior java ui developer used for discharge instructions. Hector Loya RN - 07/15/2022 3:10 AM CDT [facility] wildlife conservation officer used. Pt to ED c/o right leg [...] 07/14/2022 6:45 PM CDT Per patient via medical payment poster, persistent right leg pain for the last [...] [facility]. Pt was seen in the ED yesterday [...] Appointment RADIOLOGY Roosevelt Brown MD [address] [place] [address] [phone] Scheduled 1, [facility] [address] [place] [phone] 07/22/2022 Office Visit ORTHOPEDICS Miri Matthew MD [address] [place] [phone] Scheduled 1, [facility] [address] [place] [address] [phone] 07/22/2022 Office Visit Interventional Radiology Provider, Int Ra d 1, [facility] [address] [place] [address] 46[address] 07/25/2022 Appointment RADIOLOGY Patrice Hollins MD [address] [place] [phone] Scheduled 1, [facility] [address] [place] [phone] 07/25/2022 Office Visit NEUROSURGERY Briana Kaplan PA -C [address] [place] [phone] Scheduled 1, [facility] [address] [place] [address] 07/25/2022 Appointment PHYSICAL MEDICINE AND REHAB Lore Aguilar, PT Scheduled [address] [place], [place] [phone] (Wo rk) 08/05/2022 Appointment ORTHOPEDICS 1, [facility] Scheduled [address] [place] [address] 08/05/2022 Appointment RADIOLOGY Roosevelt Brown MD [address] [place] [address] Scheduled 1, [facility] [address] [place] [address] 08/05/2022 Appointment RADIOLOGY Roosevelt Brown MD [address] [place] [phone] Scheduled 1, [facility] [address] [place] [address] 08/05/2022 Office Visit ORTHOPEDICS Roosevelt Brown MD [address] [place] [address] Scheduled 1, [facility] [address] [place] [address] Scheduled Referrals Name Type Priority Associated Diagnoses [...] 0645 ibuprofen (MOTRIN;ADVIL) tablet 600 mg (COMPLETED) 652 (Given - Provider: Hector Loya RN) 600 [...] 0645 documented in this encounter Care Teams Small Products I Assembler Relationship Specialty Start Date End Date Lore Au, PT Physical Therapist Physical Therapy 07/09/22 [address] [place] [address] documented as of this encounter
--- OUTSIDE RECORDS SUMMARY | 2022-07-20 06:56 | XMS_ITS | Encounter Summary ---
:1975 Author Organization [facility] Address [address] [place] [address] Phone Care Team Providers Name Role Phone Lore Au PT Unavailable Reason for Visit Reason Comments Pain Encounter Details Date Type Department Care Team Description 07/13/2022 Emergency [facility] [place] Amb[place], [place], Radicular pain of right Department MD lower extremity [address] [place], [place] [address] [place], [place] [phone] Social History Tobacco Use Types Packs/Day Years [...] sent through Care Everywhere. Radiculopathy Discharge Instructions (Luxembourger)documented in this encounter Medications at Time of [...] hours as needed (pain adjunct (give with opioid)).[place] 1-2 c??psulas (25-50 mg) por v??a oral [...] mg) by mouth 3 TABS times daily. [place] 1 tableta (5 mg) por la boca 3 veces al mandy. polyethylene glycol Take 17 g by mouth 510 g 0 06/26/20 22 3350 (MIRALAX/GLUCOLAX) twice daily.Take 1 17 gm/scoop oral powder capful to 17 gm cuate mixed with full glass of water twice every day as directed.[place] 17 g por v??a oral dos veces al d??a. [place] 1 tap??n hasta la minerva de 17 g mezclado con un vaso lleno de agua dos veces al d??a seg??n las indicaciones. sennosides-docusate Take 1 tablet by 40 each 0 06/26/2022 sodium (STOOL mouth twice daily. SOFTENER/LAXATIVE) [place] 1 tableta por 8.6-50 mg oral tablet la boca 2 veces al mandy. GABApentin (NEURONTIN) Take 1 capsule 120 capsule 0 06/26/20 400 mg oral capsule (400 mg) by mouth 3 times daily. [place] 1 capsula (400 mg) por la boca 3 veces al mandy. tamsulosin (FLOMAX) 0.4 Take 1 capsule 10 capsule 0 06/27/20 22 mg oral capsule (0.4 mg) by mouth daily after meal.Take 30 minutes after same meal each day. Do NOT crush or chew.[place] 1 c??psula (0,4 mg) por v??a oral todos los d??as despu??s de ethan comida. [place] 30 minutos despu??s de la misma comida todos los d??as. No triture ni mastique. melatonin 3 mg oral Take 1 tablet (3 20 tablet 0 06/26/2022 tablet mg) by mouth at bedtime as needed for Sleep. [place] 1 tableta (3 mg) por la boca [...] Thrombosis Indications: Blood Clot in a Deep Vein.([place] 1 tableta (20 mg) por v??a oral diariamente con la evonne. 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 rivaroxaban (XARELTO) Take 1 tablet (15 42 tablet 0 022 07/20/2022 15 mg oral mg) by mouth twice tabletIndications: Deep daily with meals Vein Thrombosis for 21 days. Indications: Blood Clot in a Deep Vein. [place] 1 tableta (15 mg) por v??a oral [...] hours as needed (pain adjunct (give with opioid)).[place] 1-2 c??psulas (25-50 mg) por v??a oral [...] tablet (5 mg) by mouth 3 timesdaily. [place] 1 tableta (5 mg) por la boca 3 veces al mandy., Normal polyethylene glycol 3350 (MIRALAX/GLUCOLAX) 17 gm/scoop oral powder Disp-510 g, R-0, Take 17 g by mouth twice daily.Take 1 capful to 17 gm cuate mixed with full glass of water twice every day as directed.[place] 17 g por v??a oral dos veces al d??a. [place] 1 tap??n hasta la minerva de 17 g mezclado con un vaso lleno de agua d os veces al d??a seg??n las indicaciones., Normal sennosides-docusate sodium (STOOL SOFTENER/LAXATIVE) 8.6-50 mg oral tablet Disp- 40 each, R-0, Take 1tablet by mouth twice daily. [place] 1 tableta por la boca 2 veces al mandy., Normal GABApentin (NEURONTIN) 400 mg oral capsule Disp-120 capsule, R-0, Take 1 capsule (400 mg) by mouth 3times daily. [place] 1 capsula (400 mg) por la boca 3 veces al mandy., Normal tamsulosin (FLOMAX) 0.4 mg oral capsule Disp-10 capsule, R-0, Take 1 capsule (0.4 mg) by mouth dailyafter meal.Take 30 minutes after same meal each day. Do NOT crush or chew.[place] 1 c??psula (0,4 mg) por v??a oral todos los d??as despu??s de ethan comida. [place] 30 minutos despu??s de la misma comida todos los d??as. No triture ni mastique., Normal melatonin 3 mg oral tablet Disp-20 tablet, R-0, Take 1 tablet (3 mg) by mouth at bedtime as needed for Sleep. [place] 1 tableta (3 mg) por la boca [...] meal. Indications: Blood Clot in a Deep Vein.([place] 1 tableta (20 mg) por v??a oral diariamente con la evonne. 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, Normal !! rivaroxaban (XARELTO) 15 mg oral tablet Disp-42 tablet, R-0, Take 1 tablet (15 mg) by mouth twicedaily with meals for 21 days. Indications: Blood Clot in a Deep Vein. [place] 1 tableta (15 mg) por v??a oral [...] Appointment RADIOLOGY Roosevelt Brown MD [address] [place] [phone] Scheduled 1, [facility] [address] [place] [address] 07/22/2022 Office Visit ORTHOPEDICS Miri Matthew MD [address] [place] [address] Scheduled 1, [facility] [address] [place] [address] 07/22/2022 Office Visit Interventional Radiology Provider, Int Ra d 1, [facility] [address] [place] [address] 07/25/2022 Appointment RADIOLOGY Patrice Hollins MD [address] [address] Scheduled 1, [facility] [address] [place] [phone] 07/25/2022 Office Visit NEUROSURGERY Briana Kaplan PA -C [address] [place] [address] Scheduled 1, [facility] [address] [place] [address] 07/25/2022 Appointment PHYSICAL MEDICINE AND REHAB Lore Aguilar, PT Scheduled [address], [place] [address] (Wo rk) 08/05/2022 Appointment ORTHOPEDICS 1, [facility] Scheduled [address] [place] [address] 08/05/2022 Appointment RADIOLOGY Roosevelt Brown MD [address] [place] [address] [phone] Scheduled 1, [facility] [address] [place] [address] 08/05/2022 Appointment RADIOLOGY Roosevelt Brown MD [address] [place] [address] [phone] Scheduled 1, [facility] [address] [place] [address] 08/05/2022 Office Visit ORTHOPEDICS Roosevelt Brown MD [address] [place] [address] Scheduled 1, [facility] [address] [place] [address] documented as of this encounter Visit Diagnoses Diagnosis Radicular pain of right lower extremity - Primary Thoracic or lumbosacral neuritis or radi culitis, unspecified documented in this encounter Care Teams Photoengraving Photographer Relationship Specialty Start Date End Date Lore Au, PT Physical Therapist Physical Therapy 07/09/22 [address] [place] [address] documented as of this encounter
--- OUTSIDE RECORDS SUMMARY | 2022-07-20 06:56 | XMS_ITS | Clinical Summary ---
:1975 Author Organization [facility] Address [address] [place] [address] Phone Care Team Providers Name Role Phone Lore Au PT Unavailable Source Comments [employer] is fully rolled out on [employer]. Last update 03/09/09.[facility] Allergies No known active allergies Medications Be [...] hours as needed (pain adjunct (give with opioid)).Lugoff 1-2 c??psulas (25-50 mg) por v??a oral [...] mouth 3 22 oral TABS times daily. Lugoff 1 tableta (5 mg) por la boca 3 veces al porsche. polyethylene Take 17 g by 510 g 0 06/26/20 Acti ve glycol 3350 mouth twice 22 (MIRALAX/GLUCOLAX) daily.Take 1 17 gm/scoop oral capful to 17 gm powder cuate mixed with full glass of water twice every day as directed.Lugoff 17 g por v??a oral dos veces al d??a. Lugoff 1 tap??n hasta la minerva de 17 g mezclado con un vaso lleno de agua dos veces al d??a seg??n las indicaciones. sennosides-docusat Take 1 tablet by 40 each 0 06/26/20 Active e sodium (STOOL mouth twice 22 SOFTENER/LAXATIVE) daily. Lugoff 1 8.6-50 mg oral tableta por la tablet boca 2 veces al porsche. GABApentin Take 1 capsule 120 capsule 0 06/26/20 Ac tive (NEURONTIN) 400 mg (400 mg) by mouth 22 oral capsule 3 times daily. Lugoff 1 capsula (400 mg) por la boca 3 veces al porsche. tamsulosin Take 1 capsule 10 capsule 0 06/27/20 Act raymond (FLOMAX) 0.4 mg (0.4 mg) by mouth 22 oral capsule daily after meal.Take 30 minutes after same meal each day. Do NOT crush or chew.Lugoff 1 c??psula (0,4 mg) por v??a oral todos los d??as despu??s de ethan comida. Lugoff 30 minutos despu??s de la misma comida todos los d??as. No triture ni mastique. melatonin 3 mg Take 1 tablet (3 20 tablet 0 06/26/20 Active oral tablet mg) by mouth at 22 bedtime as needed for Sleep. Lugoff 1 tableta (3 mg) por la boca [...] Indications: Thrombosis Blood Clot in a Deep Vein.(Lugoff 1 tableta (20 mg) por v??a oral diariamente con la salesforce trainer. 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 rivaroxaban Take 1 tablet (15 42 tablet 0 06/29/2007/20/ Active (XARELTO) 15 mg mg) by mouth 2021 oral twice daily with tabletIndications: meals for 21 Deep Vein days. Thrombosis Indications: Blood Clot in a Deep Vein. Lugoff 1 tableta (15 mg) por v??a oral [...] Hospital Encounter RADIOLOGY Miri Matthew MD 1, [facility] 07/08/2022 Office Visit ORTHOPEDICS Roosevelt rBown Pelvic ring fracture, closed, subsequent encounter () (Primary Dx); MD Trav Fracture of right wrist 1, [facility] 07/08/2022 Hospital Encounter RADIOLOGY Patrice Hollins MD 1, [facility] 07/08/2022 Hospital Encounter RADIOLOGY Roosevelt Brown MD 1, [facility] 07/08/2022 Travel 07/07/2022 Telemedicine MEDICINE Martin Boyle, DVT (deep veno us thrombosis) () (Primary Dx); PharmD Pelvic ring fracture, closed, initial en counter () 1, [facility] 07/07/2022 Orders Only ORTHOPEDICS Nidhi Ochoa M, Pelvic ring RN fracture, close d, subsequent encounter () (Primary Dx) 06/29/2022 - Emergency EMERGENCY MEDICINE Sascha Mendez Pain 06/30/2022 S, DO 06/29/2022 Travel 06/24/2022 Anesthesia Event SURGERY Vish Aguirre MD Armstrong, Zoey, SOLOMON 06/24/2022 Surgery SURGERY Roosevelt Brown OPEN REDUCT DEANNA Ravi MD INTERNAL FIXATI ON RIGHT SI JOINT 06/24/2022 Documentation Only Health Information Administrator, Services 06/20/2022 Orders Only Unknown, Provider 06/20/2022 [...] Appointment RADIOLOGY Roosevelt Brown MD [address] [place] [phone] Scheduled 1, [facility] [address] [place] [address] 07/22/2022 Office Visit ORTHOPEDICS Miri Matthew MD [address] [place] [address] Scheduled 1, [facility] [address] [place] [address] 07/22/2022 Office Visit Interventional Radiology Provider, Hesham haq 1, [facility] [address] [place] [address] 07/25/2022 Appointment RADIOLOGY Patrice Hollins MD [address] [address] Scheduled 1, [facility] [address] [place] [address] 07/25/2022 Office Visit NEUROSURGERY Briana Kaplan PA [facility] [address] [place] [address] Scheduled 1, [facility] [address] [place] [address] 07/25/2022 Appointment PHYSICAL MEDICINE AND REHAB Lore Aguilar, PT Scheduled [address] [place] [phone] (Wo rk) 08/05/2022 Appointment ORTHOPEDICS 1, [facility] Scheduled [address] [place] [address] 08/05/2022 Appointment RADIOLOGY Roosevelt Brown MD [address] [place] [address] Scheduled 1, [facility] [address] [place] [address] 08/05/2022 Appointment RADIOLOGY Roosevelt Brown MD [address] [place] [address] Scheduled 1, [facility] [address] [place] [address] 08/05/2022 Office Visit ORTHOPEDICS Roosevelt Brown MD [address] [place] [address] Scheduled 1, [facility] [address] [place] [address] Health Maintenance Due Date Last Done Comments [...] to pic Medical Devices Implanted Type Area Camouflage Specialist Device Shelf Model / Identifier Expiration Serial / Lot Date Gelfoam(Surgifoam) Sz 100 3x5 (Large) 1973 Hemostatic Right: BECKY PIKE & 11/14/2025 [id number] / Implanted: Qty: 1 on 06/24/2022 by Roosevelt Brown MD at [facility] Agent Pelvis MORENA / [id number] 3-Hole ([id number]) Plate Right: BERNADINE BIOMET [id number] / Implanted: Qty: 1 on 06/24/2022 by Roosevelt Brown MD at [facility] Pelvis / 170mm, 75mm [id number] Screw/[place] BERNADINE BIOMET [id number] / Implanted: Qty: 1 on 06/18/2022 by Roosevelt Brown MD at [facility] ITAL / 95mm ([id number]) Screw/[place] Right: BERNADINE BIOMET [id number] / Implanted: Qty: 1 on 06/24/2022 by Roosevelt Brown MD at [facility] Pelvis / Washer 13mm Large [id number] Lg Washer Right: BERNADINE BIOMET [id number] / Implanted: Qty: 1 on 06/24/2022 by Roosevelt Brown MD at [facility] Pelvis / Procedures Procedure Name Priority Date/Time [...] Signature POC Glucose 93 70 - 100 [facility] mg/dL CAMPUS - POINT OF CARE Specimen (Source) Anatomical Collection Method Collection Time Re ceived Time Location / / Volume Laterality Blood 06/27/2022 4:16 PM CDT Kingston Castañeda MD LABORATORY Performing Organization Address City/State/ZIP Code Phon e Number [facility] [place] - POINT OF CARE [address] [place] [address] (ABNORMAL) PANEL BASIC METABOLIC (BMP) (06/27/2022 4:57 AM CDT)Only the most recent of5 resultswithin the time period is included. athologist Signature Sodium 134 (L) 135 - 148 [facility] mEq/L Potassium 4.2 3.5 - 5.3 [facility] mEq/L Chloride 98 92 - 108 [facility] mEq/L CO2 25 22 - 30 [facility] mEq/L AnGap 11 8 - 16 [facility] mEq/L Glucose 156 (H) 70 - 100 [facility] mg/dL BUN 15 6 - 20 [facility] mg/dL Creatinine 0.59 (L) 0.70 - 1.25 [facility] mg/dL Calcium 9.2 8.6 - 10.0 [facility] mg/dL eGFR, High >120 >=60 [facility] ml/min/1.73 m2 Comment: Calculated using CKD-EPI equati on eGFR, Low >120 >=60 ml/min/1.73m2 [facility] Comment: Calculated using CKD-EPI equati on Specimen Anatomical Collection Method Collection Time Receive d Time (Source) Location / / Volume Laterality Blood 06/27/2022 4:57 AM 2 5:23 CDT AM CDT Patrice Hollins MD LABORATORY Performing Organization Address City/State/ZIP Code Phon e Number [facility] [place] [address] (ABNORMAL) CBC WITH PLATELET (06/27/2022 4:57 AM CDT)Only the most recent of9 resultswithin the time period is included. P athologist Signature WBC 13.15 (H) 4.00 - [facility] 10.00 k/cmm RBC 3.11 (L) 4.60 - 6.00 [facility] m/cmm Hgb 8.7 (L) 13.1 - 17.5 [facility] g/dL Hematocrit 26.4 (L) 40.0 - 51.0 [facility] % MCV 84.9 80.0 - [facility] 100.0 fL MCH 28.0 25.0 - 32.0 [facility] pg MCHC 33.0 31.0 - 36.0 [facility] g/dL RDW 13.5 11.5 - 14.5 [facility] % Plt 497 (H) 150 - 400 [facility] k/cmm MPV 9.5 6.5 - 12.5 [facility] fL Specimen Anatomical Collection Method Collection Time Receive d Time (Source) Location / / Volume Laterality Blood 06/27/2022 4:57 AM 2 5:23 CDT AM CDT Patrice Hollins MD LABORATORY Performing Organization Address City/[facility]/ZIP [facility] Phon [place] [address] (ABNORMAL) PANEL RENAL (06/26/2022 6:41 AM CDT)Only the most recent of3 results within the time period is included. athologist Signature Sodium 131 (L) 135 - 148 [facility] mEq/L Potassium 4.1 3.5 - 5.3 [facility] mEq/L Chloride 93 92 - 108 [facility] mEq/L CO2 27 22 - 30 [facility] mEq/L AnGap 11 8 - 16 [facility] mEq/L Glucose 151 (H) 70 - 100 [facility] mg/dL BUN 15 6 - 20 [facility] mg/dL Creatinine 0.69 (L) 0.70 - 1.25 [facility] mg/dL Calcium 8.9 8.6 - 10.0 [facility] mg/dL Albumin 3.5 (L) 3.8 - 5.1 [facility] g/dL Phosphorus 4.3 2.5 - 4.5 [facility] mg/dL eGFR, High >120 >=60 [facility] ml/min/1.73 m2 Comment: Calculated using CKD-EPI equati on eGFR, Low 115 >=60 ml/min/1.73m2 [facility] Comment: Calculated using CKD-EPI equati on Specimen Anatomical Collection Method Collection Time Receive d Time (Source) Location / / Volume Laterality Blood 06/26/2022 6:41 AM 2 7:47 CDT AM CDT Patrice Hollins MD LABORATORY Performing Organization Address City/[facility]/ZIP Code Phon e Number [facility] [place] [address] (ABNORMAL) PANEL LIPID (06/26/2022 6:41 AM CDT) athologist Signature Cholesterol 128 <=200 mg/dL [facility] Comment: Interpretive Data <200 Desirable 200-239 Borderline high >=240 High Triglyceride 178 (H) <=150 mg/dL [facility] Comment: Interpretive Data <150 Normal 150-199 Borderline high 200-499 High >=500 Very high HDL 31 (L) >=40 mg/dL [facility] Comment: Interpretive Data Normal > 40 Male > 50 Female Calc LDL 61 <=100 mg/dL [facility] Comment: Interpretive Data <100 Desirable 100-129 Above desirable 130-159 Borderline high 160-189 High >=190 Very high Non-HDL Cholesterol Calculated 97 <=130 mg/dL [facility] Comment: Interpretive Data <130 Desirable 130-159 Above desirable 160-189 Borderline high 190-219 High >=220 Very high Specimen Anatomical Collection Method Collection Time Receive d Time (Source) Location / / Volume Laterality Blood 06/26/2022 6:41 AM 2 CDT 12:54 PM CDT Narrative [facility] - 06/26/2022 1:12 PM CDT Fasting: No Patrice Hollins MD LABORATORY Performing Organization Address City/[facility]/ZIP Code Phon e Number [facility] [place] [address] OSMOLALITY,URINE-RANDOM ASIA (06/25/2022 5:08 PM CDT) athologist Signature Urine Osmo 528 50 - 800 [facility] mOsm/Kg Specimen Anatomical Collection Method Collection Time Receive d Time (Source) Location / / Volume Laterality Urine 06/25/2022 5:08 PM 2 5:39 CDT PM CDT Patrice Hollins MD LABORATORY Performing Organization Address City/State/ZIP Code Phon e Number [facility] [place] [address] (ABNORMAL) SODIUM,URINE-RANDOM ASIA (06/25/2022 5:08 PM CDT) athologist Signature Sodium Urine 30 (L) 40 - 200 [facility] mEq/L Specimen Anatomical Collection Method Collection Time Receive d Time (Source) Location / / Volume Laterality Urine 06/25/2022 5:08 PM 2 5:39 CDT PM CDT Patrice Hollins MD LABORATORY Performing Organization Address City/State/ZIP Code Phon e Number [facility] [place] [address] PELVIS NO IV CON+ 3D [...] Signature Serum Osmo 299 285 - 305 [facility] mOsm/Kg Specimen Anatomical Collection Method Collection Time Receive d Time (Source) Location / / Volume Laterality Blood 06/25/2022 5:51 AM 4:44 CDT PM CDT Patrice Hollins MD LABORATORY Performing Organization Address City/State/ZIP Code Phon e Number [facility] [place] [address] [place] [address] [place] [address] XR C ARM OVER 3 HRS (06/24/2022 [...] and clear Preoxygenation: mask Device Device used: GenerationOne Supporting device: ?? Blade size: 2 The [...] unchanged Performed by: Anesthesiologist: Vish Aguirre MD ABA TUTOR: Shanti Kruse APRN, CRNA Other: ?? [id number] [address] [id number] Events: @[facility]([phone])@ Vish Aguirre MD PROCEDURES RED BLOOD CELLS LEUKOCYTE REDUCED ADULT (BLOOD ADMIN) (06/24/2022 8:39 AM CDT) P athologist Signature RBC Ready Product [facility] Ready Specimen Anatomical Collection Method Collection Time Receive d Time (Source) Location / / Volume Laterality Other 06/24/2022 8:39 AM 2 8:39 CDT AM CDT Narrative [facility] - 06/24/2022 8:45 AM CDT 2 units manager of international to OR to have available in case 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 bleeding Is a signed informed consent on file: Ludwig regan-on file Reason for Transfusion:->Anticipated Blo od Loss for Surgery/Procedure Does patient require irradiated product: No 2 Units Miri Matthew MD BLOOD BANK ORDERABLES (BLOOD ADMIN) Performing Organization Address City/State/ZIP Code Phon e Number [facility] [place] [address] (ABNORMAL) ANTI XA HEPARIN UNFRACTIONATED (06/24/2022 7:04 AM CDT)Only the most recent of16 resultswithin the time period is included. athologist Signature Anti XA Hep U 0.12 (L) 0.30 - [facility] 0.70 IU/mL Specimen Anatomical Collection Method Collection Time Receive d Time (Source) Location / / Volume Laterality Blood 06/24/2022 7:04 AM 2 7:35 CDT AM CDT Patrice Hollins MD LABORATORY Performing Organization Address City/[facility]/ZIP Code Phon e Number [facility] [place] [address] MAGNESIUM (06/24/2022 5:43 AM CDT) athologist Signature Magnesium 2.0 1.6 - 2.6 [facility] mg/dL Specimen Anatomical Collection Method Collection Time Receive d Time (Source) Location / / Volume Laterality Blood 06/24/2022 5:43 AM 2 6:18 CDT AM CDT Patrice Hollins MD LABORATORY Performing Organization Address City/[facility]/ZIP Code Phon e Number [facility] [place] [address] (ABNORMAL) PROTHROMBIN (PT) & INR (06/22/2022 10:53 AM CDT)Only the most recent of2 resultswithin the time period is included. athologist Signature PT 13.9 (H) 9.0 - 12.5 [facility] sec INR 1.2 (H) 0.8 - 1.1 [facility] Specimen Anatomical Collection Method Collection Time Receive d Time (Source) Location / / Volume Laterality Blood 06/22/2022 10:53 06/22/2022 AM CDT 11:01 AM CDT Patrice Hollins MD LABORATORY Performing Organization Address City/[facility]/ZIP Code Phon e Number [facility] [place] [address] ANTIBODY SCREEN (06/22/2022 10:53 AM CDT)Only the most recent of2 resultswithin the time period is included. P athologist Signature Sabrina Screen Negative [facility] Specimen Anatomical Collection Method Collection Time Receive d Time (Source) Location / / Volume Laterality Blood 06/22/2022 10:53 06/22/2022 AM CDT 11:02 AM CDT Patrice Hollins MD LAB TRANSFUSION SERVICES Performing Organization Address City/[facility] Code Phon e Number [facility] [place] [address] BLOOD TYPING-ABO/RH (06/22/2022 10:53 AM CDT)Only the most recent of2 results within the time period is included. athologist Signature ABORHG A POS [facility] Specimen Anatomical Collection Method Collection Time Receive d Time (Source) Location / / Volume Laterality Blood 06/22/2022 10:53 06/22/2022 AM CDT 11:02 AM CDT Patrice Hollins MD LAB TRANSFUSION SERVICES Performing Organization Address City/[facility] Code Phon e Number [facility] [place] [address] COVID-19 SURVEILLANCE (06/22/2022 7:10 AM CDT)Only the most recent of2 results within the time period is included. Patholo gist Method Time Signature COVID-19 Not Detected Not Detected [facility] Specimen (Source) Anatomical Collection Method Collection Time Re ceived Time Location / / Volume Laterality Nasopharyngeal Swab 06/22/2022 7:10 06/22 AM CDT 11:15 AM CDT Narrative [facility] - 06/22/2022 12:26 PM CDT Preferred specimen is Nasopharyngeal swab Is the patient a healthcare employee: No Is the patient a Nacho ([facility]) Employee : No Patrice Hollins MD LABORATORY Performing Organization Address City/[facility]/ZIP Code Phon e Number [facility] [place] [address] ANTI XA ASSAY LMW HEPARIN (06/22/2022 5:25 AM CDT) athologist Signature Anti XA LMW 0.63 IU/mL [facility] Comment: Anti Xa Assay LMW Heparin Therapeutic Ra nges: 0.4-1.1 IU/mL for twice daily 1.0-2.0 IU/mL for once daily Specimen Anatomical Collection Method Collection Time Receive d Time (Source) Location / / Volume Laterality Blood 06/22/2022 5:25 AM 5:39 CDT AM CDT Patrice Hollins MD LABORATORY Performing Organization Address [facility]/ZIP Code Phon e Number [facility] [place] [address] XR ANKLE RIGHT 3 V AP/OBL/LAT* [...] Radiologist: Mario Orr Patrice Hollins MD X-RAY TELEMETRY STRIPS [...] is included. athologist Signature SST TUBE Stored [facility] Comment: SST tubes (Serum Separator) are stored in the lab for 3 days from the collection date. Specimen Anatomical Collection Method Collection Time Receive d Time (Source) Location / / Volume Laterality Blood 06/20/2022 1:05 AM 1:05 CDT AM CDT Kingston Castañeda MD LABORATORY Performing Organization Address City/State/ZIP Code Phon e Number [facility] [place] [address] XR FOOT RIGHT 3 V AP/OBL/LAT* [...] lumbar spine. Procedure Note Rizwan Cunningham V., REINIER - 06/19/2022Form atting of this note might [...] d and oral mucosa unchanged Performed by: ABA TUTOR: Rissa Person APRN, CRNA Additional Notes Glidescope used d/t patient being down i n bed with traction to leg Events: @PLINK([id number])@ Alex Leos MD PROCEDURES .Post Sedation Immediate [...] the needle into the IVC. A 5 Nepalese pigtail flush catheter was advanced over the [...] the needle into the IVC. A 5 Nepalese pigtail flush catheter was advanc ed over [...] was unremarkable. No extravasatio n was demonstrated. Senior Medical Director: Kirby Complications: None Fluoroscopy time: 22 seconds [...] urethra was unremarkable. No extravasation was demonstrated. Senior Medical Director: Kirby Complications: None Fluoroscopy time: 22 seconds [...] 06/15/2022. Fluoroscopy time: ??22 seconds Dose:12 mGy [place] protocol was followed. ?? Technique: The patient [...] extravasation of contrast. Procedure Note Anam Saleh, REINIER - 06/16/2022Forma tting of this note might be different from the original. Exam: Cystogram Indication: Rule out bladder rupture Comparison: CT chest abdomen and pelvis 06/15/2022. Fluoroscopy time: 22 seconds Dose:12 mGy [place] protocol was followed. Technique: The patient arrived [...] athologist Signature Lactate 0.7 0.7 - 2.1 [facility] mmol/L Specimen Anatomical Collection Method Collection Time Receive d Time (Source) Location / / Volume Laterality Blood 06/16/2022 2:20 AM 2 2:47 CDT AM CDT Narrative [facility] - 06/16/2022 3:06 AM CDT Send specimen on ice! Gideon Dyer MD LABORATORY Performing Organization Address City/State/ZIP Code Phon e Number [facility] [address] (ABNORMAL) URINALYSIS,TOTAL (06/16/2022 12:20 AM CDT) [facility] Method Time Signature Color YELLOW YELLOW [facility] Appearance CLEAR CLEAR [facility] Urine Glucose NEGATIVE NEGATIVE [facility] mg/dL Bili UA NEGATIVE NEGATIVE [facility] Ketones TRACE (A) NEGATIVE [facility] mg/dL Blood Ur NEGATIVE Neg-Trace [facility] PH Urine 5.5 5.0 - 7.0 [facility] Protein Ur TRACE Neg-Trace [facility] mg/dL Urobilinogen NORMAL NORMAL EU/dL [facility] Nitrite Ur NEGATIVE NEGATIVE [facility] Leuk Est NEGATIVE Neg-Trace [facility] WBC Ur 6-10 (A) 0 - 5 perHPF [facility] RBC Ur 11-20 (A) 0 - 3 perHPF [facility] SQ EPITH 0-5 0 - 5 perHPF [facility] Mucus 1+ perLPF [facility] Sperm PRESENT [facility] Bacteria UA PRESENT [facility] Comment: Presence of bacteria does not n ecessarily indicate a UTI. The presence of bacteria can indicate a non-clean catch urine specimen. Bacteria should be used in conjunction with other UA results and cl inical presentation to assist in diagnosing an infection. Urinalysis Performed at: [facility] Specific [place] 1.010 1.003 - 1.030 [facility] Specimen Anatomical Collection Method Collection Time Receive d Time (Source) Location / / Volume Laterality Urine 06/16/2022 12:20 06/16/2022 AM CDT 12:39 AM CDT Gideon Dyer MD LABORATORY Performing Organization Address City/State/ZIP Code Phon e Number [facility] [place] [address] [place] [address] XR KNEE RIGHT 2 V AP/LAT (06/15/2022 [...] canal or neural foraminal stenosis. 3. Suspected [place] syndrome on the left. Reading Radiologist: Stephany [...] visualized paraspi nous tissues is noted. Suspected [place] syndrome on left. Procedure Note Stephany Granda [...] visualized paraspi nous tissues is noted. Suspected [place] syndrome on left. IMPRESSION Impression: 1. No fracture or subluxation of the cer vical vertebrae. 2. No significant spinal canal or neural foraminal stenosis. 3. Suspected [place] syndrome on the left. Reading Radiologist: Stephany [...] styloid process, which can be seen in [place] syndrome. The visualized portions of the paranasal [...] styloid process, which can be seen in [place] syndrome. The visualized portions of the paranasal [...] PM CDT) athologist Signature CASTAÑEDA TUBE Stored [facility] Comment: Castañeda top (Sodium flouride) tube s are stored in the lab for 3 days from the collection date. Specimen Anatomical Collection Method Collection Time Receive d Time (Source) Location / / Volume Laterality Blood 06/15/2022 7:20 PM 2 7:31 CDT PM CDT Kingston Castañeda MD LABORATORY Performing Organization Address City/[facility]/ZIP Code Phon e Number [facility] [place] [address] HS TROPONIN (06/15/2022 7:20 PM CDT) athologist Signature HS Troponin I 4 <=34 ng/L [facility] Specimen Anatomical Collection Method Collection Time Receive d Time (Source) Location / / Volume Laterality Blood 06/15/2022 7:20 PM 2 7:41 CDT PM CDT Narrative [facility] - 06/15/2022 8:11 PM CDT First Occurrence of the Troponin order i s to be drawn Stat by Nursing staff on the unit. Gideon Dyer MD LABORATORY Performing Organization Address City/State/ZIP Code Phon e Number [facility] [place] [address] (ABNORMAL) ED CHEMISTRY LABS(NA,K,CL,CO2,GLU,CREAT,CA-IONIZED,ANION GAP) (06/15/2022 7:20 PM CDT) Analysis Performed At Patho logist Time Signature Sodium 140 135 - 148 [facility] mEq/L Chloride 109 (H) 92 - 108 [facility] mEq/L AnGap 8 8 - 16 [facility] mEq/L Glucose 186 (H) 70 - 100 [facility] mg/dL ICA, Actual 4.44 4.40 - [facility] 5.20 mg/dL ICA, pH 4.28 (L) 4.40 - [facility] Corrected 5.20 mg/dL Creatinine 1.00 0.70 - [facility] 1.25 mg/dL BICARB 24 22 - 26 [facility] mEq/L eGFR, High 105 >=60 [facility] ml/min/1.7 3m2 Comment: Calculated using CKD-EPI equati on eGFR, Low 90 >=60 ml/min/1.73m2 [facility] Comment: Calculated using CKD-EPI equati on Potassium 3.6 3.5 - 5.3 mEq/L [facility] Specimen Anatomical Collection Method Collection Time Receive d Time (Source) Location / / Volume Laterality Blood 06/15/2022 7:20 PM 7:30 CDT PM CDT Gideon Dyer MD LABORATORY Performing Organization Address City/State/ZIP Code Phon e Number [facility] [place] [address] (ABNORMAL) CBC WITH PLTS/AUTO DIFF (06/15/2022 7:20 PM CDT) Patholo gist Method Time Signature WBC 14.21 (H) 4.00 - [facility] 10.00 k/cmm RBC 4.65 4.60 - [facility] 6.00 m/cmm Hgb 13.0 (L) 13.1 - [facility] 17.5 g/dL Hematocrit 39.7 (L) 40.0 - [facility] 51.0 % MCV 85.4 80.0 - [facility] 100.0 fL MCH 28.0 25.0 - [facility] 32.0 pg MCHC 32.7 31.0 - [facility] 36.0 g/dL RDW 13.2 11.5 - [facility] 14.5 % Plt 294 150 - 400 [facility] k/cmm MPV 10.6 6.5 - 12.5 [facility] fL Automated Abs 10.31 (H) 1.70 - [facility] Neutrophil 6.50 k/cmm Comment: Preliminary ANC, Final Result t o Follow Abs Immature Granulocyte 0.26 (H) 0.00 - 0.09 k/cmm [facility] Comment: The Immature Granulocyte Absolu te count contains metamyelocytes and myelocytes. Abs Neutrophil 10.31 (H) 1.70 - 6.50 k/cmm [facility] B Abs Lymphocyte 2.74 0.80 - 4.00 k/cmm [facility] B Abs Monocyte 0.67 0.20 - 1.00 k/cmm [facility] Abs Eosinophil 0.20 0.00 - 0.60 k/cmm [facility] B Abs Basophil 0.03 0.00 - 0.20 k/cmm [facility] Specimen Anatomical Collection Method Collection Time Receive d Time (Source) Location / / Volume Laterality Blood 06/15/2022 7:20 PM 2 7:41 CDT PM CDT Gideon Dyer MD LABORATORY Performing Organization Address City/State/[facility] Code Phon e Number [facility] [place] [address] ED HEMOGLOBIN TOTAL (ED ONLY) (06/15/2022 7:20 PM CDT) P athologist Signature Hgb 13.7 13.1 - 17.5 [facility] g/dL Specimen Anatomical Collection Method Collection Time Receive d Time (Source) Location / / Volume Laterality Blood 06/15/2022 7:20 PM 2 7:30 CDT PM CDT Gideon Dyer MD LABORATORY Performing Organization Address City/State/ZIP Code Phon e Number [facility] [place] [address] PRECAUTIONARY TUBE (06/15/2022 7:20 PM CDT) Patholo gist Method Time Signature Prec Tube Precautionary [facility] Blood Bank Specimen Received. Specimen Anatomical Collection Method Collection Time Receive d Time (Source) Location / / Volume Laterality Blood 06/15/2022 7:20 PM 2 7:43 CDT PM CDT Gideon Dyer MD LAB TRANSFUSION SERVICES Performing Organization Address City/[facility]/ZIP Code Phon e Number [facility] [place] [address] BLOOD GASES (06/15/2022 7:20 PM CDT) athologist Signature PH Anish 7.33 7.32 - 7.42 [facility] PCO2 Anish 46 41 - 51 [facility] mmHG PO2 Anish 35 25 - 40 [facility] mmHG Bicarb Anish 24 24 - 28 [facility] mEq/L O2 Sat Anish 62 % [facility] Base Exc Anish -2.9 -10.0 - 2.0 [facility] mEq/L Specimen Anatomical Collection Method Collection Time Receive d Time (Source) Location / / Volume Laterality Blood Venous 06/15/2022 7:20 PM 2 7:30 CDT PM CDT Gideon Dyer MD LABORATORY Performing Organization Address City/[facility]/ZIP Code Phon e Number [facility] [place] [address] (ABNORMAL) FIBRINOGEN (06/15/2022 7:20 PM CDT) athologist Signature Fibrinogen 199 (L) 200 - 400 [facility] mg/dL Specimen Anatomical Collection Method Collection Time Receive d Time (Source) Location / / Volume Laterality Blood 06/15/2022 7:20 PM 2 7:41 CDT PM CDT Gideon Dyer MD LABORATORY Performing Organization Address City/[facility]/ZIP Code Phon e Number [facility] [place] [address] (ABNORMAL) PTT (APTT) (06/15/2022 7:20 PM CDT) athologist Signature APTT 21.4 (L) 25.0 - 37.0 [facility] sec Specimen Anatomical Collection Method Collection Time Receive d Time (Source) Location / / Volume Laterality Blood 06/15/2022 7:20 PM 2 7:41 CDT PM CDT Gideon Dyer MD LABORATORY Performing Organization Address City/State/ZIP Code Phon e Number [facility] [place] [address] ED US CRITICAL CARE (06/15/2022 7:16 [...] Effective Phone Address T ype Group Dates [place] MED[place] EMERGENCY [id number] 2022-Pres [phone] [facility] [address] Fee For MEDICAL ent [phone] [place] [address] Advance Directives For more information, please contact: [phone] Latest Code Status on FileFull Code Date Activated Date Inactivated Comments 06/16/2022 1:25 AM 06/27/2022 9:04 PM Question Answer Comments Does the Patient have preferences regarding life sustaining No measures (these options only apply when the patient has a pulse): Discussed Code Status With Whom? Not discussed Care Teams Staff Genetic Counselor Relationship Specialty Start Date End Date Lore Au, PT Physical Therapist Physical Therapy 07/09/22 [address] [place] [address]
--- OUTSIDE RECORDS SUMMARY | 2022-07-20 06:56 | XMS_ITS | Encounter Summary ---
:[address] [facility] Address [address] [place] [address] Phone Care Team Providers Name Role Phone Unavailable Primary Care Provider Unavailable Encounter Details Date Type Department Care Team Description 07/08/2022 Hospital Encounter Clinic & Specialty Dom Matthew MD [address] [place], [place] [id number] Center Ultrasound 1, [place] [address] [place] [address] [facility] [address] [place] [address]40 Social History Tobacco Use Types Packs/Day [...] hours as needed (pain adjunct (give with opioid)).[place] 1-2 c??psulas (25-50 mg) por v??a oral [...] mg) by mouth 3 TABS times daily. [place] 1 tableta (5 mg) por la boca 3 veces al mandy. polyethylene glycol Take 17 g by mouth 510 g 0 06/26/20 3350 (MIRALAX/GLUCOLAX) twice daily.Take 1 17 gm/scoop oral powder capful to 17 gm cuate mixed with full glass of water twice every day as directed.[place] 17 g por v??a oral dos veces al d??a. [place] 1 tap??n hasta la minerva de 17 g mezclado con un vaso lleno de agua dos veces al d??a seg??n las indicaciones. sennosides-docusate Take 1 tablet by 40 each 0 06/26/2022 sodium (STOOL mouth twice daily. SOFTENER/LAXATIVE) [place] 1 tableta por 8.6-50 mg oral tablet la boca 2 veces al mandy. GABApentin (NEURONTIN) Take 1 capsule 120 capsule 0 06/26/20 22 400 mg oral capsule (400 mg) by mouth 3 times daily. [place] 1 capsula (400 mg) por la boca 3 veces al mandy. tamsulosin (FLOMAX) 0.4 Take 1 capsule 10 capsule 0 06/27/20 22 mg oral capsule (0.4 mg) by mouth daily after meal.Take 30 minutes after same meal each day. Do NOT crush or chew.[place] 1 c??psula (0,4 mg) por v??a oral todos los d??as despu??s de ethan comida. [place] 30 minutos despu??s de la misma comida todos los d??as. No triture ni mastique. melatonin 3 mg oral Take 1 tablet (3 20 tablet 0 06/26/2022 tablet mg) by mouth at bedtime as needed for Sleep. [place] 1 tableta (3 mg) por la boca [...] Thrombosis Indications: Blood Clot in a Deep Vein.([place] 1 tableta (20 mg) por v??a oral diariamente con la evonne. 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 rivaroxaban (XARELTO) Take 1 tablet (15 42 tablet 0 06/29/ 022 07/20/2022 15 mg oral mg) by mouth twice tabletIndications: Deep daily with meals Vein Thrombosis for 21 days. Indications: Blood Clot in a Deep Vein. [place] 1 tableta (15 mg) por v??a oral [...] RADIOLOGY Roosevelt Brown MD [address] [place] [address] Scheduled 1, [place] [address] [place] [address] 07/22/2022 Office Visit ORTHOPEDICS Miri Matthew MD [address] [place] [address] Scheduled 1, [place] [address] [place] [address] 07/22/2022 Office Visit Interventional Radiology Provider, Int Ra d 1, [place] [address] [place] [address] 07/25/2022 Appointment RADIOLOGY Patrice Hollins MD [address] [address] Scheduled 1, [place] [address] [place] [address] 07/25/2022 Office Visit NEUROSURGERY Briana Kaplan PA -C [address] [place] [address] Scheduled 1, [place] [address] [place] [address] 07/25/2022 Appointment PHYSICAL MEDICINE AND REHAB Lore Aguilar, PT Scheduled [address], [place] [address] (Wo rk) 08/05/2022 Appointment ORTHOPEDICS 1, [place] Scheduled [address] [place] [address] 08/05/2022 Appointment RADIOLOGY Roosevelt Brown MD [address] [place] [address] [id number] Scheduled 1, [place] [address] [place] [address] 08/05/2022 Appointment RADIOLOGY Roosevelt Brown MD [address] [place] [address] Scheduled 1, [place] [address] [place] [address] 08/05/2022 Office Visit ORTHOPEDICS Roosevelt Brown MD [address] [place] [address] Scheduled 1, [place] [address] [place] [address] documented as of this encounter Procedures Procedure [...] Reading Radiologist: Sarthak Us Reading Resident: Donavon Chagn Miri Matthew MD ULT documented in this encounter Visit Diagnoses Not on filedocumented in this encounter
--- OUTSIDE RECORDS SUMMARY | 2022-07-20 06:56 | XMS_ITS | Encounter Summary ---
:1975 Author Organization [facility] Address [address] [place] [address] Phone Care Team Providers Name Role Phone [...] Appointment RADIOLOGY Roosevelt Brown MD [address] [place] [address] Scheduled 1, [place] [address] [place] [address] 07/22/2022 Office Visit ORTHOPEDICS Miri Matthew MD [address] [place], [place] [address] Scheduled 1, [place] [address] [place] [address] 07/22/2022 Office Visit Interventional Radiology Provider, Int Ra d 1, [place] [address] [place] [address] 07/25/2022 Appointment RADIOLOGY Patrice Hollins MD [address] [address] Scheduled 1, [place] [address] [place] [address] 07/25/2022 Office Visit NEUROSURGERY Briana Kaplan PA -C [address] [place] [address] Scheduled 1, [place] 1 [place] [address] 07/25/2022 Appointment PHYSICAL MEDICINE AND REHAB Lore Aguilar, PT Scheduled [address] [place] [address] (Wo rk) 08/05/2022 Appointment ORTHOPEDICS 1, [place] Scheduled 1 [place] [address] 08/05/2022 Appointment RADIOLOGY Roosevelt Brown MD [address] [place] [address] Scheduled 1, [place] [address] [place] [address] 08/05/2022 Appointment RADIOLOGY Roosevelt Brown MD [address] [place] [address] Scheduled 1, [place] [address] [place] [address] 08/05/2022 Office Visit ORTHOPEDICS Roosevelt Brown MD [address] [place] [address] Scheduled 1, [place] [address] [place] [address] documented as of this encounter Visit Diagnoses Not on filedocumented in this encounter Care Teams Die Machine Operator Relationship Specialty Start Date End Date Lore Au, PT Physical Therapist Physical Therapy 07/09/22 [address] [place] [address] documented as of this encounter
--- OUTSIDE RECORDS SUMMARY | 2022-07-20 06:56 | XMS_ITS | Encounter Summary ---
:1975 Author Organization [facility] Address [address] [place] [address] Phone Care Team Providers Name Role Phone [...] Appointment RADIOLOGY Roosevelt Brown MD [address] [place] [address] Scheduled 1, [place] [address] [place] [address] 07/22/2022 Office Visit ORTHOPEDICS Miri Matthew MD 701 [place] [address] Scheduled 1, [place] [address] [place] [address] 07/22/2022 Office Visit Interventional Radiology Provider, Hesham Pizarro d 1, [place] [address] [place] [address] 07/25/2022 Appointment RADIOLOGY Patrice Hollins MD [address] [address] Scheduled 1, [place] [address] [place] [address] 07/25/2022 Office Visit NEUROSURGERY Eusebio, Briana Reyes, PA -C [address] [place] [address] Scheduled 1, [place] [address] [place] [address] 07/25/2022 Appointment PHYSICAL MEDICINE AND REHAB Lore Aguilar, PT Scheduled [address] [place] [address] (Wo rk) 08/05/2022 Appointment ORTHOPEDICS 1, [place] Scheduled [address] [place] [address] 08/05/2022 Appointment RADIOLOGY Roosevelt Brown MD [address] [place] [address] Scheduled 1, [place] [address] [place] [address] 08/05/2022 Appointment RADIOLOGY Roosevelt Brown MD [address] [place] [address] Scheduled 1, [place] [address] [place] [address] 08/05/2022 Office Visit ORTHOPEDICS Roosevelt Brown MD [address] [place] [address] Scheduled 1, [place] [address] [place] [address] documented as of this encounter Visit Diagnoses Not on filedocumented in this encounter
--- OUTSIDE RECORDS SUMMARY | 2022-07-20 06:56 | XMS_ITS | Encounter Summary ---
:1975 Author Organization [facility] Address [address] [place] [address] Phone Care Team Providers Name Role Phone Unavailable Primary Care Provider Unavailable Encounter Details Date Type Department Care Team Description 07/08/2022 Hospital Encounter Clinic & Specialty Patrice Hollins MD [address] [id number] Center XRAY 1, [place] [address] [place] [address] [address]40 Social History Tobacco Use Types [...] hours as needed (pain adjunct (give with opioid)).[address] 1-2 c??psulas (25-50 mg) por v??a oral [...] mg) by mouth 3 TABS times daily[address] 1 tableta (5 mg) por la boca 3 veces al mandy. polyethylene glycol Take 17 g by mouth 510 g 0 06/26/20 22 3350 (MIRALAX/GLUCOLAX) twice daily.Take 1 17 gm/scoop oral powder capful to 17 gm cuate mixed with full glass of water twice every day as directed.[address] 17 g por v??a oral dos veces al d??a. [address] 1 tap??n hasta la minerva de 17 g mezclado con un vaso lleno de agua dos veces al d??a seg??n las indicaciones. sennosides-docusate Take 1 tablet by 40 each 0 06/26/2022 sodium (STOOL mouth twice daily. SOFTENER/LAXATIVE) [address] 1 tableta por 8.6-50 mg oral tablet la boca 2 veces al mandy. GABApentin (NEURONTIN) Take 1 capsule 120 capsule 0 06/26/20 22 400 mg oral capsule (400 mg) by mouth [address] 1 capsula (400 mg) por la boca 3 veces al mandy. tamsulosin (FLOMAX) 0.4 Take 1 capsule 10 capsule 0 06/27/20 22 mg oral capsule (0.4 mg) by mouth daily after meal.Take 30 minutes after same meal each day. Do NOT crush or chew.[address] 1 c??psula (0,4 mg) por v??a oral todos los d??as despu??s de ethan comida. [address] 30 minutos despu??s de la misma comida todos los d??as. No triture ni mastique. melatonin 3 mg oral Take 1 tablet (3 20 tablet 0 06/26/2022 tablet mg) by mouth at bedtime as needed for Sleep. [address] 1 tableta (3 mg) por la boca [...] Thrombosis Indications: Blood Clot in a Deep Vein.([address] 1 tableta (20 mg) por v??a oral diariamente con la evonne. 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 rivaroxaban (XARELTO) Take 1 tablet (15 42 tablet 0 06/29/ 022 07/20/2022 15 mg oral mg) by mouth twice tabletIndications: Deep daily with meals Vein Thrombosis for 21 days. Indications: Blood Clot in a Deep Vein. [address] 1 tableta (15 mg) por v??a oral [...] Appointment RADIOLOGY Roosevelt Brown MD [address] [place] [address] Scheduled 1, [place] [address] [place] [address] 07/22/2022 Office Visit ORTHOPEDICS Miri Matthew MD 701 [place] [address] Scheduled 1, [place] [address] [place] [address] 07/22/2022 Office Visit Interventional Radiology Provider, Int Ra d 1, [place] [address] [place] [address] 07/25/2022 Appointment RADIOLOGY Patrice Hollins MD [address] [place] [address] Scheduled 1, [place] [address] [place] [address] 07/25/2022 Office Visit NEUROSURGERY Briana Kaplan PA -C [address] [place] [address] Scheduled 1, [place] [address] [place] [address] 07/25/2022 Appointment PHYSICAL MEDICINE AND REHAB Lore Aguilar, PT Scheduled [address], [place] [address] (Wo rk) 08/05/2022 Appointment ORTHOPEDICS 1, [place] Scheduled [address] [place] [address] 08/05/2022 Appointment RADIOLOGY Roosevelt Brown MD [address] [place] [address] [phone] Scheduled 1, [place] [address] [place] [address] 08/05/2022 Appointment RADIOLOGY Roosevelt Brown MD [address] [place] [address] Scheduled 1, [place] [address] [place] [address] 08/05/2022 Office Visit ORTHOPEDICS Roosevelt Brown MD [address] [place] [address] Scheduled 1, [place] [address] [place] [address] documented as of this encounter Procedures Procedure [...]
--- OUTSIDE RECORDS SUMMARY | 2022-07-20 06:56 | XMS_ITS | Encounter Summary ---
:1975 Author Organization [facility] Address [address] [place] [address] Phone Care Team Providers Name Role Phone [...] Appointment RADIOLOGY Roosevelt Brown MD [address] [place] [address] Scheduled 1, Is[place] [address] [place] [address] 07/22/2022 Office Visit ORTHOPEDICS Miri Matthew MD [address] [place], [place] [address] Scheduled 1, [place] [address] [place] [address] 07/22/2022 Office Visit Interventional Radiology Provider, Int Ra d 1, [place] [address] [place] [address] 07/25/2022 Appointment RADIOLOGY Patrice Hollins MD [address] [address] Scheduled 1, [place] [address] [place] [address] 07/25/2022 Office Visit NEUROSURGERY Briana Kaplan PA -C [address] [place] [address] Scheduled 1, [place] 1 [place] [address] 07/25/2022 Appointment PHYSICAL MEDICINE AND REHAB Lore Aguilar, PT Scheduled [address] [place] [address] (Wo rk) 08/05/2022 Appointment ORTHOPEDICS 1, [place] Scheduled 1 [place] [address] 08/05/2022 Appointment RADIOLOGY Roosevelt Brown MD [address] [place] [address] Scheduled 1, [place] [address] [place] [address] 08/05/2022 Appointment RADIOLOGY Roosevelt Brown MD [address] [place] [address] Scheduled 1, [place] [address] [place] [address] 08/05/2022 Office Visit ORTHOPEDICS Roosevelt Brown MD [address] [place] [address] Scheduled 1, [place] [address] [place] [address] documented as of this encounter Visit Diagnoses Not on filedocumented in this encounter Care Teams Pump And Blower Operator Relationship Specialty Start Date End Date Lore Au, PT Physical Therapist Physical Therapy 07/09/[address] [place] [address] documented as of this encounter
--- OUTSIDE RECORDS SUMMARY | 2022-07-20 06:57 | XMS_ITS | Encounter Summary ---
:1975 [address] [facility] Address [address] [place] [address] Phone Care Team Providers Name Role Phone Unavailable Primary Care Provider Unavailable Reason for Visit Reason Comments Anticoagulation Security Public Safety Officer 119 Consult/Test/Treat (Routine) - Closed Specialty Diagnoses / Procedures Referred By Contact Refer red To Contact Diagnoses Pelvic ring fracture, closed, initial encounter () Patrice Hollins MD [address] [phone] Referral ID Status Reason Start Date Expiration Date Visits Requ ested Visits Authorized [id number] Closed 06/27/2022 06/28/2023 1 1 Encounter Details Date Type Department Care Team Description 07/07/2022 Telemedicine Clinic & Specialty Martin Boyle, PharmD [address] [place] [address] [id number] DVT (deep venous thrombosis) () (Prima ry Dx); Center Internal 1, [place] [address] [place] [address] Pelvic ring fracture, closed, initial en counter () Medicine Clinics [address] 1540 Social History Tobacco Use Types Packs/Day Years [...] this telephone encounter with the assistance of Mongolian telephone supervisor accounts receivable. CMR Last Completed: N/A Subjective Objective: Anticoagulation: [...] that he has an outside PCP in [place] who he plans to return to when he feels better. He does have specialty care and appointments at [facility] coming up. 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 [place] 1 tableta (5 mg) por la boca 3 veces al mandy. Muscle Spasms Pain GABApentin 400 mg Capsule Commonly known as: NEURONTIN Take 1 capsule (400 mg) by mouth 3 times daily. [place] 1 capsula (400 mg) por la boca [...] hours as needed (pain adjunct (give with opioid)).[place] 1-2 c??psulas (25-50 mg) por v??a oral cada 4 horas seg??n sea necesario (complemento para el dolor (administrar con opioide)). Augment pain (given with opioid) melatonin 3 mg tablet Take 1 tablet (3 mg) by mouth at bedtime as needed for Sleep. [place] 1 tableta (3 mg) por la boca [...] glass of water twice every day as directed.[place] 17 g por v??a oral dos veces al d??a. [place] 1 tap??n hasta la minerva de 17 g mezclado con un vaso lleno de agua dos veces al d??a seg??n las indicaciones. Constipation Xarelto 15 mg tablet Generic drug: rivaroxaban Take 1 tablet (15 mg) by mouth twice daily with meals for 21 days. Indications: Blood Clot in a DeepVein. [place] 1 tableta (15 mg) por v??a oral dos veces al d??a con las comidas jennifer 21 d??as. 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 Blood Clot in a Deep Vein rivaroxaban 20 mg tablet Commonly known as: XARELTO Take 1 tablet (20 mg) by mouth daily with evening meal. Indications: Blood Clot in a Deep Vein.([place] 1 tableta (20 mg) por v??a oral diariamente con la evonne. 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 Start taking on: July 20, 2022 Blood Clot in a Deep Vein Senexon-S 8.6-50 mg tablet Generic drug: sennosides-docusate sodium Take 1 tablet by mouth twice daily. [place] 1 tableta por la boca 2 veces [...] meal each day. Do NOT crush or chew.[place] 1 c??psula (0,4 mg) por v??a oral todos los d??as despu??s de ethan comida. [place] 30 minutos despu??s de la misma comida [...] Distant site (telephone provider location): Onsite at [facility] Telephone start time (include am/pm designation): 3:30 PM Telephone end time (include am/pm designation): 4:10 PM Social History Tobacco Use Smoking status: Never Patient Active Problem List Diagnosis Open wound of arm Open wound of arm without complication Fall, initial encounter Pelvic ring fracture, closed, initial encounter () ------- Pharmacy Use Only: [place]: [place] / Plan[place] EMERGENCY [place]ICAL [place]ISTANCE / Product Type: [place] Fee For Service / Medication Management Type [...] RADIOLOGY Roosevelt Brown MD [address] [place] [phone] Scheduled 1, [place] [address] [place] [address] 07/22/2022 Office Visit ORTHOPEDICS Miri Matthew MD [address] [place] [address] Scheduled 1, [place] [address] [place] [address] 07/22/2022 Office Visit Interventional Radiology Provider, Hesham haq 1, [place] [address] [place] [address] 07/25/2022 Appointment RADIOLOGY Patrice Hollins MD [address] [address] Scheduled 1, [place] [address] [place] [address] 07/25/2022 Office Visit NEUROSURGERY Briana Kaplan PA -C [address] [place] [address] Scheduled 1, [place] [address] [place] [address] 07/25/2022 Appointment PHYSICAL MEDICINE AND REHAB Lore Aguilar PT Scheduled [address] [address] (Wo rk) 08/05/2022 Appointment ORTHOPEDICS 1, [place] Scheduled [address] [place] [address] 08/05/2022 Appointment RADIOLOGY Roosevelt Brown MD [address] [place] [address] Scheduled 1, [place] [address] [place] [address] 08/05/2022 Appointment RADIOLOGY Roosevelt Brown MD [address] [place] [address] Scheduled 1, [place] [address] [place] [address] 08/05/2022 Office Visit ORTHOPEDICS Roosevelt Brown MD [address] [place] [address] Scheduled 1, [place] [address] [place] [address] Scheduled Referrals Name Type Priority Associated Diagnoses Order S janielenora LARRY REFERRAL - Referral Routine Pelvic ring fracture, Ordered: 06/27/2022 DOAC closed, initial encounter () documented as of this encounter Visit Diagnoses Diagnosis DVT (deep venous thrombosis) () - Prim mikala Acute venous embolism and thrombosis of unspecified deep vessels of lower extremity Pelvic ring fracture, closed, initial en counter () documented in this encounter
--- OUTSIDE RECORDS SUMMARY | 2022-07-20 06:57 | XMS_ITS | Encounter Summary ---
:1975 Author Organization [facility] Address [address] [facility] [place] [address] Phone Care Team Providers Name Role Phone Unavailable Primary Care Provider Unavailable Reason for Visit Reason Comments Pain Control Encounter Details Date Type Department Care Team Description 06/29/2022 - Emergency [facility] Emergency Sascha Mendez , DO Pain 06/30/2022 Department 701 [facility] [address] [place] [address] R1.035 [place], [place] [address] [phone] Social History Tobacco Use Types Packs/Day Years [...] Care Everywhere. Acute Pain Discharge Instructions, Adult (Bruneian)documented in this encounter Medications at Time of Discharge Medication Sig Dispensed Refills Start Date End Date acetaminophen 325 mg Take 3 tablets 120 tablet 0 06/26/2022 oral tablet (975 mg) by mouth 3 times daily. hydrOXYzine pamoate Take 1-2 capsules 120 capsule 0 06/26/20 ([place]) 25 mg oral (25-50 mg) by capsule mouth every 4 hours as needed (pain adjunct (give with opioid)).[place] 1-2 c??psulas (25-50 mg) por v??a oral [...] mg) by mouth 3 TABS times daily. [place] 1 tableta (5 mg) por la boca 3 veces al mandy. polyethylene glycol Take 17 g by mouth 510 g 0 06/26/20 22 3350 (MIRALAX/GLUCOLAX) twice daily.Take 1 17 gm/scoop oral powder capful to 17 gm cuate mixed with full glass of water twice every day as directed.[place] 17 g por v??a oral dos veces al d??a. [place] 1 tap??n hasta la minerva de 17 g mezclado con un vaso lleno de agua dos veces al d??a seg??n las indicaciones. sennosides-docusate Take 1 tablet by 40 each 0 06/26/2022 sodium (STOOL mouth twice daily. SOFTENER/LAXATIVE) [place] 1 tableta por 8.6-50 mg oral tablet la boca 2 veces al mandy. GABApentin (NEURONTIN) Take 1 capsule 120 capsule 0 06/26/20 400 mg oral capsule (400 mg) by mouth 3 times daily. [place] 1 capsula (400 mg) por la boca 3 veces al mandy. tamsulosin (FLOMAX) 0.4 Take 1 capsule 10 capsule 0 06/27/20 22 mg oral capsule (0.4 mg) by mouth daily after meal.Take 30 minutes after same meal each day. Do NOT crush or chew.[place] 1 c??psula (0,4 mg) por v??a oral todos los d??as despu??s de ethan comida. [place] 30 minutos despu??s de la misma comida todos los d??as. No triture ni mastique. melatonin 3 mg oral Take 1 tablet (3 20 tablet 0 06/26/2022 tablet mg) by mouth at bedtime as needed for Sleep. [place] 1 tableta (3 mg) por la boca [...] Thrombosis Indications: Blood Clot in a Deep Vein.([place] 1 tableta (20 mg) por v??a oral diariamente con la evonne. 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 rivaroxaban (XARELTO) Take 1 tablet (15 42 tablet 0 022 07/20/2022 15 mg oral mg) by mouth twice tabletIndications: Deep daily with meals Vein Thrombosis for 21 days. Indications: Blood Clot in a Deep Vein. [place] 1 tableta (15 mg) por v??a oral [...] in real time. Please contact me via [email or web address] staff message if you note any errors [...] Due to a language barrier, a professional deaf interpreter was present in person during this encounter. [...] symptoms. Please see the resident or physician urology physician assistant note from the same day [...] Description 07/22/2022 Appointment RADIOLOGY Roosevelt Brown MD [address] [place] [phone] Scheduled 1, [place] [address] [place] [address] 07/22/2022 Office Visit ORTHOPEDICS Miri Matthew MD [address] [place] [address] Scheduled 1, [place] [address] [place] [address] 07/22/2022 Office Visit Interventional Radiology Provider, Int d 1, [place] [address] [place] [address] 07/25/2022 Appointment RADIOLOGY Patrice Hollins MD [address] [place] [address] Scheduled 1, [place] [address] [place] [address] 07/25/2022 Office Visit NEUROSURGERY Briana Kaplan PA -C [address] [place] [address] Scheduled 1, [place] [address] [place] [address] 07/25/2022 Appointment PHYSICAL MEDICINE AND REHAB Lore Aguilar, PT Scheduled [address] [place] [address] (Wo rk) 08/05/2022 Appointment ORTHOPEDICS 1, [place] Scheduled [address] [place] [address] 08/05/2022 Appointment RADIOLOGY Roosevelt Brown MD [address] [place] [address] Scheduled 1, [place] [address] [place] [address] 08/05/2022 Appointment RADIOLOGY Roosevelt Brown MD [address] [place] [address] Scheduled 1, [place] [address] [place] [address] 08/05/2022 Office Visit ORTHOPEDICS Roosevelt Brown MD [address] [place] [address] Scheduled 1, [place] [address] [place] [address] documented as of this encounter Visit Diagnoses [...] 06/30/2022 oxyCODONE (ROXICODONE) tablet 10 mg (COMPLETED) 1876 (Given - Provider: Raven Orr RN) 10 mg, Oral, ONE TIME, 1 dose, On 06/29/22 at 5520 documented in this encounter
--- OUTSIDE RECORDS SUMMARY | 2022-07-20 06:57 | XMS_ITS | Encounter Summary ---
:1975 Author Organization [facility] Address [address] [place] [address] Phone Care Team Providers Name Role Phone Lore Au PT Unavailable Encounter Details Date Type Department Care Team Description 07/07/2022 Orders Only Clinic & Specialty Nidhi Ochoa Pelvi c ring fracture, Center setter cold rolling machine closed, subsequent Clinic [address] encounter () (Primary [address] [facility] [address] Dx) [place], [place] [address] Social History Tobacco Use Types Packs/Day Years [...] Appointment RADIOLOGY Roosevelt Brown MD [address] [place] [address] Scheduled 1, [place] [address] [place] [address] 07/22/2022 Office Visit ORTHOPEDICS Miri Matthew MD [address] [place] [address] Scheduled 1, [place] [address] [place] [address] 07/22/2022 Office Visit Interventional Radiology Provider, Hesham haq 1, [place] [address] [place] [address] 07/25/2022 Appointment RADIOLOGY Patrice Hollins MD [address] [address] Scheduled 1, [place] [address] [place] [address] 07/25/2022 Office Visit NEUROSURGERY Briana Kaplan PA [facility] [address] [place] [address] Scheduled 1, [place] [address] [place] [address] 07/25/2022 Appointment PHYSICAL MEDICINE AND REHAB Lore Aguilar, PT Scheduled [address] [place] [address] (Wo rk) 08/05/2022 Appointment ORTHOPEDICS 1, [place] Scheduled 1 [place] [address] 08/05/2022 Appointment RADIOLOGY Roosevelt Brown MD [address] [place] [address] Scheduled 1, [place] [address] [place] [address] 08/05/2022 Appointment RADIOLOGY Roosevelt Brown MD [address] [place] [address] Scheduled 1, [place] [address] [place] [address] 08/05/2022 Office Visit ORTHOPEDICS Roosevelt Brown MD [address] [place] [address] Scheduled 1, [place] [address] [place] [address] documented as of this encounter Results XR [...] () documented in this encounter Care Teams Manager Operating Relationship Specialty Start Date End Date Lore Au, PT Physical Therapist Physical Therapy 07/09/22 [address] [place] [address] documented as of this encounter
--- OUTSIDE RECORDS SUMMARY | 2022-07-20 06:57 | XMS_ITS | Encounter Summary ---
:1975 Author Organization [facility] Address [address] [place] [address] Phone Care Team Providers Name Role Phone [...] RADIOLOGY Roosevelt Brown MD [address] [place] [address] Scheduled 1, [place] [address] [place] [address] 07/22/2022 Office Visit ORTHOPEDICS Miri Matthew MD [address] [place], [place] [address]345 Scheduled 1, [place] [address] [place] [address] 07/22/2022 Office Visit Interventional Radiology Provider, Hesham Ra d 1, [place] [address] [place] [address] 07/25/2022 Appointment RADIOLOGY Patrice Hollins MD [address] [address] Scheduled 1, [place] [address] [place] [address] 07/25/2022 Office Visit NEUROSURGERY Eusebio, BRITTNEY [facility] [address] [place] [address] Scheduled 1, [place] [address] [place] [address] 07/25/2022 Appointment PHYSICAL MEDICINE AND REHAB Lore Aguilar, PT Scheduled [address] [place] [address] (Wo rk) 08/05/2022 Appointment ORTHOPEDICS 1, [place] Scheduled [address] [place] [address] 08/05/2022 Appointment RADIOLOGY Roosevelt Brown MD [address] [place] [address] Scheduled 1, [place] [address] [place] [address] 08/05/2022 Appointment RADIOLOGY Roosevelt Brown MD [address] [place] [address] Scheduled 1, [place] [address] [place] [address] 08/05/2022 Office Visit ORTHOPEDICS Roosevelt Brown MD [address] [place] [address] Scheduled 1, [place] [address] [place] [address] documented as of this encounter Visit Diagnoses Not on filedocumented in this encounter
--- OUTSIDE RECORDS SUMMARY | 2022-07-20 06:58 | XMS_ITS | Encounter Summary ---
:1975 [address] [facility] Address [address] [place] [address]. [place] [address] Phone Care Team Providers Name Role Phone Unavailable Primary Care Provider Unavailable Reason for Referral Consult/Test/Treat (Routine) - Closed Specialty Diagnoses / Procedures Referred By Contact Refer red To Contact Diagnoses Pelvic ring fracture, closed, initial encounter () Patrice Hollins MD [address] [place] [address] [id number] Referral ID Status Reason Start Date Expiration Date Visits Requ ested Visits Authorized [id number] Closed 06/27/2022 06/28/2023 1 1 Consult/Test/Treat (Routine) - New Request Specialty Diagnoses / Procedures Referred By Contact Refer red To Contact Internal Medicine / Diagnoses Hyponatremia Type 2 diabetes mellitus without complication, without long-term current use of insulin () Patrice Hollins MD MEDICINE [address] [place] [address] Referral ID Status Reason Start Date Expiration Date Visits V isits Requested Authorized [id number] New Request 06/26/2022 06/26/2023 1 1 Consult/Test/Treat (Routine) - New Request Specialty Diagnoses / Procedures Referred By Contact Refer red To Contact Physical Therapy / Diagnoses Fall, initial encounter Pelvic ring fracture, closed, initial encounter () Status post open reduction and internal fixation (ORIF) of fracture Patrice Hollins MD PHYSICAL THERAPY [address] [facility] [address] [place] [address] Referral ID Status Reason Start Date Expiration Date Visits V isits Requested Authorized [id number] New Request 06/26/2022 06/26/2023 1 1 Reason for Visit Reason Comments Fall Auth/Cert (Routine) Specialty Diagnoses / Procedures Referred By Contact Refer red To Contact SURGERY Diagnoses Fall, initial encounter Erasmo Gonzalez MD [address] [facility] [address] [place] [address] [phone] [address] [place] [address] Phone: Fax: Referral ID Status Reason Start Date Expiration Date Visits Requ ested Visits Authorized [id number] 1 1 Encounter Details Date Type Department Care Team Description 06/15/2022 - Hospital Encounter [facility] [place] Castañeda MD [address] [facility] [address] [place], [place] [id number] Fall, initial 06/27/2022 Surgery/Trauma/Neur Patrice Hollins MD [address] [facility] [address] [place], [place] [id number] encounter o [address] [place] [address] [address] [place] [address] Social History Tobacco Use Types [...] No focal deficits appreciated on gross examination Client Relationship Consultant Needed: yes- Maldivian [35] PLANNED DISCHARGE ORDERS: Suture/Linefork: Location right low back; Removal date: @ [...] address): ___ Patient Address: C/o Shawnee Bolivar [address] [place] [id number] Question Response Notes Effective date for equipment/supply 06/25/2022 Medical necessity for order (qualifying diagnosis) sacral fracture, right acetabular fracture, T12 compression fracture, right distal radius fracture Length of time equipment/supply needed 12 months Monthly quantity . Vendor Information [employer]; ph: [phone], fx: [phone] XR SPINE THORACOLUMBAR 2 VIEW Question Response [...] Yes Antitippers Yes Vendor Information [employer]; ph: [phone], fx: [phone] DME JUSTIFICATION OF NEED FOR EXTENDED TUB [...] PLEASE CALL the Patient Access Center at [phone] to schedule the following appointment(s) Question Response Notes Specify time frame 1 Month Reason for Visit? Evaluate need for continued IVC Filtration Provider Type? Any available Provider Clinic Location? [facility] Specialty: Interventional Radiology Schedule Appointment - [facility] Ortho Cl Order Notes PLEASE CALL the Patient Access Center at [phone] to schedule the following appointment(s) Question Response Notes Specify time frame 2 Weeks Reason for Visit? Post op follow up, hospitalization. S/p ORIF right SI joint Provider Type? Any available Provider Clinic Location? [facility] Specialty: Orthopedics Schedule Appointment in Neurosurgery- [facility] Clinic Order Notes Schedule Appointment in Neurosurgery Clinic - [facility] Neurosurgery Clinic Direct Line: [phone] [place] [address] Clinic Hours: 8 AM - 4:30 PM M-F Question Response Notes Specify time frame 6 Weeks Reason for Visit? Follow up T12 and lumbar fractures Provider Type? [facility] Clinic Location? [facility] Specialty: Neurosurgery Imaging? Yes UR XR prior [...] your doctor or [facility] When should I be concerned? Order Notes [...] 4 PM): Call the Radiology department at [phone] After hours or on Holidays: Call the [facility] degreasing wheel operator . Ask the degreasing wheel operator to page the Interventional Radiologist sales operations director. IF: -- hives or new itching the [...] wet, you can dry it with a hair boiler operator set to cool/warm; call the Orthopaedic Clinic at [phone] if the cast remains soft. -- Cover [...] wet, you can dry it with a hair boiler operator set to cool/warm; call the Orthopaedic Clinic at [phone] if the cast remains soft. -- Cover [...] -- Read all labels for prescription and Ogdk-ech-hpbiwjl medicines. Ask the pharmacist if your prescription [...] taking these medications acetaminophen 325 mg tablet Smyer 3 tabletas (975 mg) por la boca [...] (5 mg) by mouth 3 times daily. Smyer 1 tableta (5 mg) por la boca [...] (400 mg) by mouth 3 times daily. Smyer 1 capsula (400 mg) por la boca 3 veces al porsche. hydrOXYzine pamoate 25 mg capsule Commonly known as: VISTARIL Take 1-2 capsules (25-50 mg) by mouth every 4 hours as needed (pain adjunct (give with opioid)).Smyer 1-2 c??psulas (25-50 mg) por v??a oral cada 4 horas seg??n sea necesario (complemento para el dolor (administrar con opioide)). melatonin 3 mg tablet Take 1 tablet (3 mg) by mouth at bedtime as needed for Sleep. Smyer 1 tableta (3 mg) por la boca a lahora de acostrase. oxyCODONE 5 mg tablet Commonly known as: ROXICODONE Smyer 1 tableta (5 mg) por la boca cada 4 horas rock sea necesario para el dolor. (Take 1 tablet (5 mg) by mouth every 4 hours as needed for Pain.) polyethylene glycol 3350 17 gm/scoop powder Commonly known as: MIRALAX/GLUCOLAX Take 17 g by mouth twice daily.Take 1 capful to 17 gm cuate mixed with full glass of water twice every day as directed.Smyer 17 g por v??a oral dos veces al d??a. Smyer 1 tap??n hasta la minerva de 17 g mezclado con un vaso lleno de agua dos veces al d??a seg??n las indicaciones. * Xarelto 15 mg tablet Generic drug: rivaroxaban Take 1 tablet (15 mg) by mouth twice daily with meals for 21 days. Indications: Blood Clot in a DeepVein. Smyer 1 tableta (15 mg) por v??a oral dos veces al d??a con las comidas jennifer 21 d??as. 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 Start taking on: June 29, 2022 * rivaroxaban 20 mg tablet Commonly known as: XARELTO Take 1 tablet (20 mg) by mouth daily with evening meal. Indications: Blood Clot in a Deep Vein.(Smyer 1 tableta (20 mg) por v??a oral diariamente con la senior dynamics crm developer. 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 Smyer 1 tableta por la boca 2 veces al porsche. sodium chloride 1 gm Tabs Take 2 tablets (2 g) by mouth 4 times daily. TOME DOS TABLETAS ORALMENTE 4 VECES AL PORSCHE tamsulosin 0.4 mg Capsule Commonly known as: FLOMAX Take 1 capsule (0.4 mg) by mouth daily after meal.Take 30 minutes after same meal each day. Do NOT crush or chew.Smyer 1 c??psula (0,4 mg) por v??a oral todos los d??as despu??s de ethan comida. Smyer 30 minutos despu??s de la misma comida [...] Your Medications These medications were sent [place] [facility] [place] [facility] [place] [address] Hours: 27/04 acetaminophen 325 mg tablet bisacodyl [...] me are documented. Patrice Hollins M.D., F.A.C.S. [facility] Department of Surgery documented in this [...] Self Cares with a TLSO A TLSO (Wvlzkpc-Lfcom-Bhfxry-Orthosis) is a brace designed to immobilize your [...] determine what you need) Extended tub bench Billiard Table Repairer Long Handled Sponge Raised Toilet Seat with arms Remember : - No weight on your right arm/hand, no pulling and no pushing with right hand. - No weight on right leg - Pivot transfer ONLY on left leg - No walking - Slow down, think before moving Discharge Instr - Speech Language PathologyTheodora Serrano OTR/L - 06/27/2022 8:50 AM CDT {SOFT SHOE DANCER Discharge Instructions:[id number]} AttachmentsThe following attachments cannot be sent through Care Everywhere.Cast Care (Maldivian)Forearm and Wrist Fractures ED (Maldivian)Forearm Fracture Discharge Instructions (Maldivian)Radius Fracture (Maldivian)Radius Fracture Discharge Instructions (Maldivian)Pelvic Fracture Discharge Instructions (Maldivian) Pelvic Fracture (Maldivian)Fractures (Maldivian)General Trauma Discharge Instructions (Maldivian)Type 2 Diabetes Discharge Instructions (Maldivian)documented in this encounter Medications at Time of Discharge Medication Sig Dispensed Refills Start Date End Date acetaminophen 325 mg Take 3 tablets (975 120 tablet 0 2021 oral tablet mg) by mouth 3 times daily. hydrOXYzine pamoate Take 1-2 capsules 120 capsule 0 06/26/20 (VISTARIL) 25 mg oral (25-50 mg) by mouth capsule every 4 hours as needed (pain adjunct (give with opioid)).Smyer 1-2 c??psulas (25-50 mg) por v??a oral [...] oral by mouth 3 times TABS daily. Smyer 1 tableta (5 mg) por la boca 3 veces al porsche. polyethylene glycol Take 17 g by mouth 510 g 0 06/26/20 3350 twice daily.Take 1 (MIRALAX/GLUCOLAX) 17 capful to 17 gm gm/scoop oral powder cuate mixed with full glass of water twice every day as directed.Smyer 17 g por v??a oral dos veces al d??a. Smyer 1 tap??n hasta la minerva de 17 g mezclado con un vaso lleno de agua dos veces al d??a seg??n las indicaciones. sennosides-docusate Take 1 tablet by 40 each 0 06/26/2022 sodium (STOOL mouth twice daily. SOFTENER/LAXATIVE) Smyer 1 tableta por 8.6-50 mg oral tablet la boca 2 veces al porsche. GABApentin (NEURONTIN) Take 1 capsule (400 120 capsule 0 400 mg oral capsule mg) by mouth 3 times daily. Smyer 1 capsula (400 mg) por la boca 3 veces al porsche. tamsulosin (FLOMAX) Take 1 capsule (0.4 10 capsule 0 022 0.4 mg oral capsule mg) by mouth daily after meal.Take 30 minutes after same meal each day. Do NOT crush or chew.Smyer 1 c??psula (0,4 mg) por v??a oral todos los d??as despu??s de ethan comida. Smyer 30 minutos despu??s de la misma comida todos los d??as. No triture ni mastique. melatonin 3 mg oral Take 1 tablet (3 mg) 20 tablet 0 2021 tablet by mouth at bedtime as needed for Sleep. Smyer 1 tableta (3 mg) por la boca [...] Thrombosis Indications: Blood Clot in a Deep Vein.(Smyer 1 tableta (20 mg) por v??a oral diariamente con la evonne. 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 rivaroxaban (XARELTO) Take 1 tablet (15 42 tablet 0 06/29/ 022 07/20/2022 15 mg oral mg) by mouth twice tabletIndications: daily with meals for Deep Vein Thrombosis 21 days. Indications: Blood Clot in a Deep Vein. Smyer 1 tableta (15 mg) por v??a oral [...] w/ Precautions?: Yes (with some occasional reminders) Client Relationship Consultant Used: No, certified bilingual staff SUBJECTIVE: Cooperative [...] assisting with supervision and 1-2 tips from proposal lead writer Upper Body Dressing Techniques & Equipment: [...] Functional activity: 15 minutes JACKELIN Cordero/Kira Pager: [facility] OT Department Neal Phillips, LOCAL COMPANY REFRIGERATED TRUCK DRIVER - 06/27/2022 9:42 AM CDT Problem: Decreased Transfer Skills Goal: Patient will transfer supine to/from sit Description: Patient will transfer supine to/from sit with (6) Modified [place] in the TLSO w/othe use of his [...] (Numeric): 4 (improved) Participation Significantly Limited?: No O:Client Relationship Consultant Used: Yes, [facility] windows phone developer Mental Status Mental Status: Alert;Cooperative;Follows 3 step [...] own equipment. Neal Phillips PTA 06/27/2022 Pager: [facility] PT Dept Joce Villareal MD - 06/27/2022 [...] - ok for L LE pivot transfer) Client Relationship Consultant Used: No, certified bilingual staff SUBJECTIVE: Cooperative [...] assisting with supervision and 1-2 tips from proposal lead writer Lower Body Dressing: Maximal assist (25% [...] Functional Activity 15 minutes JACKELIN Cordero/Kira Pager: [employer] OT Department Patrice Hollins MD - 06/26/2022 [...] vital signs normal. Euvolemic on exam. Asymptomatic. [id number] LR post procedurally 06/24. Has not received [...] 06/26/2022 10:39 AM RESIDENT WITH STUDENT: Jorgito Hollowya MD FACULTY WITH STUDENT: I saw the patient with the medical/DEVAN student 06/26/2022 and performed, or re-performed, the physical exam and medical decision-making in the provision of this service and have verified the accuracy of all the medical student documentation and edited as necessary. Patrice Hollins MD, 06/30/2022 9:13 AM Neal Phillips, LOC[employer] COMPANY REFRIGERATED TRUCK DRIVER - 06/26/2022 9:03 AM CDT Problem: Decreased Transfer Skills Goal: Patient will transfer supine to/from sit Description: Patient will transfer supine to/from sit with (6) Modified [place] in the TLSO w/othe use of his [...] (Numeric): 4 (improved) Participation Significantly Limited?: No O:Client Relationship Consultant Used: Yes, [facility] windows phone developer Mental Status Mental Status: Alert;Cooperative;Follows 3 step [...] set-up and management. Increase tolerance for sitting. LOCAL COMPANY REFRIGERATED TRUCK DRIVER Appropriate: Yes Neal Phillips, SKYLER 06/26/2022 Pager: [facility] PT Dept Chintan Valadez MD - 06/26/2022 [...] (assisted with transferring pt back to bed) O:Client Relationship Consultant Used: Yes, [facility] windows phone developer Mental Status Mental Status: Alert;Cooperative;Follows 3 step [...] by PT. She also assisted pt with dnapfu-ug-acq transfer. Pt required just standby assist for [...] with assisting with wheelchair set-up and management. LOCAL COMPANY REFRIGERATED TRUCK DRIVER Appropriate: Yes Alize Stevens, PT 06/25/2022 Pager: [facility] PT Dept Problem: Decreased Transfer Skills Goal: Patient will transfer supine to/from sit Description: Patient will transfer supine to/from sit with (6) Modified [place] in the TLSO w/othe use of his [...] be able to roll with (6) Modified [place] using log roll technique w/o the use [...] - ok for L LE pivot transfer) Client Relationship Consultant Used: No, certified bilingual staff SUBJECTIVE: Cooperative [...] assisting with supervision and 1-2 tips from proposal lead writer Lower Body Dressing: Maximal assist (25% [...] about 30 minutes prior to arrival) O: Client Relationship Consultant Used: No, certified bilingual staff Name or Reference Number (phone): [id number] Mental Status Mental Status: Alert;Cooperative;Follows 1 step [...] OR and requesting PT assist pt to [facility] Clinical Coordinator: Notified recommending 16 WC with ELR, removeable armrests, anti-tippers and cushion Family: and daughter present, educated regarding WC size considerations and equipment recs for 16 WC with B ELR and removable armrests Fall Risk Assessment: None of the above Positioning: Pt transferred to [facility] in prep for surgery at end [...] have family re-demo WC part management . LOCAL COMPANY REFRIGERATED TRUCK DRIVER Appropriate: Yes Charlene Lindo, PT 06/24/2022 Pager: [facility] PT Dept Problem: Decreased Transfer Skills Goal: Patient will roll Description: Patient will be able to roll with (6) Modified [place] using log roll technique w/o the use of his RUE while maintaining both spinal and WB restrictions in order to demonstrate improved function and D/C by 06/28. Outcome: In progress Goal: Patient will transfer supine to/from sit Description: Patient will transfer supine to/from sit with (6) Modified [place] in the TLSO w/othe use of his [...] - ok for L LE pivot transfer) Client Relationship Consultant Used: No, certified bilingual staff SUBJECTIVE: Cooperative [...] assisting with supervision and 1-2 tips from proposal lead writer Upper Body Dressing Techniques & Equipment: [...] Functional activity: 15 minutes CLAUDIO Cordero Pager: [facility] OT Department Patrice Hollins MD - 06/24/2022 [...] is only present while pushing against something. [place] nauseous upon waking, dry heaved. Able to [...] me are documented. Patrice Hollins M.D., F.A.C.S. [facility] Department of Surgery Korin Garcia MD [...] for OR today. Hopefully this afternoon or engraver pantograph - Plan to convert right short arm [...] 06/23/2022 12:50 PM CDT Problem: Loss of [place] With ADLs, Risk for Goal: Patient-specific goals [...] push/pull/place weight in RUE- ok through elbow) Client Relationship Consultant Used: Yes, agency or phone windows phone developer ([facility] phone/video windows phone developer) SUBJECTIVE: I'm getting really warm. Can I [...] assisting with supervision and 1-2 tips from proposal lead writer Upper Body Dressing Techniques & Equipment: [...] care/Home mgmt/ADL: 30 minutes JACKELIN Fernandez/Kira Pager: [facility] OT Department Reshma Hackett OTR/Kira, 06/23/2022 4:09 [...] by me aredocumented. Patrice Hollins M.D., Graham.C.S. [facility] Department of Surgery Linda Lei MD [...] with any questions or concerns. Aman Pichardo POWER TRANSFORMER ASSEMBLER Danette O&P [phone] Linda Au MD - 06/20/2022 5:36 AM [...] Per nursing report, patient was bladder scanned [id number] retained, so he underwent straight catheterization. He [...] IN NOTE D: Patient transferred in to [facility] from PACU at 1950. Patient condition on arrival: stable. Patient Belonging 06/16/2022 0110 Patient or family informed of Patient Valuables and Belongings Policy (#[id number]): Due to patient condition, [facility] staff will inventory and secure patient valuables [...] me are documented. Patrice Hollins M.D., Graham.Trav.Gwendolyn. [facility] Department of Surgery Alpesh Live MD [...] None Transportation Used for Discharge: family will picking tech Safety Concerns: None Behavioral Health Concerns: None Primary Insurance: N/A Secondary Insurance: N/A PLAN Plan/Interventions Discharge Plan: Home Risks for Readmission: None SUMMARY Patient would like to DC home where could help. He is uninsured. He has received 3 doses of Covid vaccine regional production manager will continue to follow until DC [...] by me aredocumented. Patrice Hollins M.D., F.A.C.S. [facility] Department of Surgery Resident: Linda Au [...] return to fit when able. Aman Mainorurow POWER TRANSFORMER ASSEMBLER Juanklgeorgette O&P [phone] Narciso Steele CO - 06/16/2022 12:08 PM [...] today for fitting and delivery. Aman Thurow POWER TRANSFORMER ASSEMBLER Winkley O&P [phone] Edna Ibrahim MDIV - 06/16/2022 9:36 AM CDT SPIRITUAL CARE VISIT SUMMARY Kesha Hill : 1975 Sex: male LOS: 0 days Reason for visit: Referral Assessment: Pt/family uncertain/anxious/frustrated Intervention: Engage theological concerns;Compassionate support;Facilitate communication;Lead/support spiritual rituals Outcome: Situation assessed;Gratitude expressed;Pt/family report increased sense of peace/spiritual well-being;Stress observed as lessened;Ritual provided Notes: Provided supportive presence for Maldivian speaking, [facility] pt (with use of mobile plant operators). Pt was in pain, and consented to healing touch being provided. He indicated that this practice assisted with his pain. Pt spoke about his recent move to [place], and how he likes it there, and likes living with his Gloria there. Pt was able to speak with the nurse about his pain, and communicate that to her. He welcomed prayer, which this provider offered in Maldivian. Edna has completed levels one and two of Healing Touch and level one of Reiki. This is an energy based, gentle (limited) touch healing modality, and this patient or patient's family consented to this practice. Plan: Spiritual Care Team is available to support patient and family as needed via pager [phone]. Edna Ibrahim MDIV, 06/16/2022 9:36 AM Pager: [phone] Oanh Moore MD - 06/16/2022 6:02 AM [...] elbow flex/ext. 5/5 wrist flex/ext. 5/5 hand life insurance underwriter. LUE: 5/5 shoulder abduction. 5/5 elbow flex/ext. 5/5 wrist flex/ext. 5/5 hand life insurance underwriter. Lower Extremities: RLE: 0/5 hip flexion. 0/5 [...] Narvaez MD - 06/16/2022 12:00 [place] [address] [id number] PATIENT: KESHA HILL : 1975 DATE DICTATED: 06/16/2022 SURGERY STAFF DAILY PROGRESS NOTE DATE OF SERVICE: 06/16/2022 I saw and evaluated the patient. I discussed management with residents, PULP MILL TEAM LEADER, and PAs on the Neurosurgery team and [...] MD Staff Physician Neurosurgery Service Received in Scooter Mechanic: 06/16/2022 18:59:09 M: /[id number] TB/MODL Patrice Hollins MD - 06/15/2022 7:18 PM CDT Trauma Staff I was notified via the trauma pager at: [phone] I evaluated/examined this patient at: aRRIVAL The patient arrived at: 06/15/2022 7:15 PM I was pre-notified: Yes Switchboard. Trauma Level: Tier 2 Staff Summary (full note will be with the resident H&P): Fell from [facility], 30 ft. Will plan head/c-spine/chest/abd/pelvis [...] file Social History Narrative Patient lives in [place], [place]. He is single and employed. Family [...] diagnostic studies, procedures and surgery) Admit to [facility] Ortho Consult paged out at STAT. Neurosurgery consult paged out at 1945 Cardiac Monitoring Frequent neuro checks, CMS checks Incentive Spirometer Bedrest with C, T, & L spine precautions C-spine exam and possible clearance once final reads posted NPO until final reads on radiography Consult SOFT SHOE DANCER and keep strict NPO if SOFT SHOE DANCER consult not indicated at this time PT/OT [...] me are documented. Patrice Hollins M.D., F.A.C.S. [facility] Department of Surgery documented in this [...] Hill at 1215 Patient transported back to [facility] via Bed. Accompanied by Tech [...] John Leon MD Orthopaedic Surgery, PGY3 Pager: [phone] documented in this encounter Consult Notes Sultana Nuñez, FernandoD - 06/26/2022 4:10 PM CDTAssociated Order(s): DISCHARGE MED REC FINAL REVIEW BY PHARMACY PHARMACY DISCHARGE NOTE Kesha Hill : 1975 Sex: male Pharmacy service was consulted for review of patient's discharge medications. Planned discharge medications are: Medication List Medications Indications acetaminophen 325 mg tablet Smyer 3 tabletas (975 mg) por la boca [...] (5 mg) by mouth 3 times daily. Smyer 1 tableta (5 mg) por la boca [...] (400 mg) by mouth 3 times daily. Smyer 1 capsula (400 mg) por la boca 3 veces al porsche. glipiZIDE XL 10 mg extended release tablet Generic drug: glipiZIDE XL Take 1 tablet (10 mg) by mouth daily. Indications: Type 2 Diabetes Indications: Type 2 Diabetes hydrOXYzine pamoate 25 mg capsule Commonly known as: VISTARIL Take 1-2 capsules (25-50 mg) by mouth every 4 hours as needed (pain adjunct (give with opioid)).Smyer 1-2 c??psulas (25-50 mg) por v??a oral cada 4 horas seg??n sea necesario (complemento para el dolor (administrar con opioide)). melatonin 3 mg tablet Take 1 tablet (3 mg) by mouth at bedtime as needed for Sleep. Smyer 1 tableta (3 mg) por la boca a lahora de acostrase. metFORMIN 1000 mg tablet Commonly known as: GLUCOPHAGE Take 1 tablet (1,000 mg) by mouth twice daily with meals. Indications: Type 2 Diabetes Indications: Type 2 Diabetes oxyCODONE 5 mg tablet Commonly known as: ROXICODONE Smyer 1 o 2 tabletas por la boca cada 4 horas rock sea necesario para el dolor. (Take 1-2 tablets (5-10 mg) by mouth every 4 hours as needed for Pain.) polyethylene glycol 3350 17 gm/scoop powder Commonly known as: MIRALAX/GLUCOLAX Take 17 g by mouth twice daily.Take 1 capful to 17 gm cuate mixed with full glass of water twice every day as directed.Smyer 17 g por v??a oral dos veces al d??a. Smyer 1 tap??n hasta la minerva de 17 g mezclado con un vaso lleno de agua dos veces al d??a seg??n las indicaciones. rivaroxaban 15 mg tablet Commonly known as: XARELTO Take 1 tablet (15 mg) by mouth twice daily with meals for 21 days. Indications: Blood Clot in a DeepVein. Smyer 1 tableta (15 mg) por v??a oral dos veces al d??a con las comidas jennifer 21 d??as. 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 Collection Time Re ceived Time Location / / Volume Laterality Blood 06/25/2022 8:45 PM CDT Kingston Castañeda MD LABORATORY Performing Organization Address City/State/ZIP Code Phon e Number [facility] - POINT OF CARE [address] [place] [address] OSMOLALITY,URINE-RANDOM ASIA (06/25/2022 5:08 PM CDT) athologist [facility] Urine Osmo [phone] 50 - 800 [facility] mOsm/Kg Specimen Anatomical Collection Method Collection Time Receive d Time (Source) Location / / Volume Laterality Urine 06/25/2022 5:08 PM 2 5:39 CDT PM CDT Patrice Hollins MD LABORATORY Performing Organization Address City/[facility]/ZIP Code Phon e Number [facility] [place] [address] (ABNORMAL) SODIUM,URINE-RANDOM ASIA (06/25/2022 5:08 PM CDT) athologist Signature Sodium Urine 30 (L) 40 - 200 [facility] mEq/L Specimen Anatomical Collection Method Collection Time Receive d Time (Source) Location / / Volume Laterality Urine 06/25/2022 5:08 PM 2 5:39 CDT PM CDT Patrice Hollins MD LABORATORY Performing Organization Address [facility] Phon e Number [facility] [place] [address] (ABNORMAL) POC GLUCOSE (06/25/2022 4:09 PM CDT) athologist Signature POC Glucose 150 (H) 70 - 100 [facility] mg/dL CAMPUS - POINT OF CARE Specimen (Source) Anatomical Collection Method Collection Time Re ceived Time Location / / Volume Laterality Blood 06/25/2022 4:09 PM CDT Kingston Castañeda MD LABORATORY Performing Organization Address [facility]/ZIP Code Phon e Number [facility] [place] - POINT OF CARE [address] [place] [phone] PELVIS NO IV CON+ 3D RECON [...] POC Glucose 188 (H) 70 - 100 [facility] mg/dL CAMPUS - POINT OF CARE Specimen (Source) Anatomical Collection Method Collection Time Re ceived Time Location / / Volume Laterality Blood 06/25/2022 11:26 AM CDT Kingston Castañeda MD LABORATORY Performing Organization Address City/State/ZIP Code Phon e Number [facility] - POINT OF CARE [address] [place] [address] (ABNORMAL) POC GLUCOSE (06/25/2022 5:59 AM CDT) athologist Signature POC Glucose 126 (H) 70 - 100 [facility] mg/dL CAMPUS - POINT OF CARE Specimen (Source) Anatomical Collection Method Collection Time Re ceived Time Location / / Volume Laterality Blood 06/25/2022 5:59 AM CDT Kingston Castañeda MD LABORATORY Performing Organization Address City/State/ZIP Code Phon e Number [facility] - POINT OF CARE [address] [place] [address] OSMOLALITY SERUM (06/25/2022 5:51 AM CDT) athologist Signature Serum Osmo [phone] 305 [facility] mOsm/Kg Specimen Anatomical Collection Method Collection Time Receive d Time (Source) Location / / Volume Laterality Blood 06/25/2022 5:51 AM 2 4:44 CDT PM CDT Patrice Hollins MD LABORATORY Performing Organization Address City/[facility]/ZIP Code Phon e Number [facility] [place] [address] (ABNORMAL) PANEL RENAL (06/25/2022 5:51 AM CDT) athologist Signature CO2 28 22 - 30 [facility] mEq/L Glucose 144 (H) 70 - 100 [facility] mg/dL BUN 19 6 - 20 [facility] mg/dL Creatinine 0.78 0.70 - 1.25 [facility] mg/dL Calcium 9.1 8.6 - 10.0 [facility] mg/dL Albumin 3.4 (L) 3.8 - 5.1 [facility] g/dL Phosphorus 4.1 2.5 - 4.5 [facility] mg/dL eGFR, High >120 >=60 [facility] ml/min/1.73 m2 Comment: Calculated using CKD-EPI equati on Sodium 131 (L) 135 - 148 mEq/L [facility] Potassium 4.5 3.5 - 5.3 mEq/L [facility] Chloride 94 92 - 108 mEq/L [facility] eGFR, Low 109 >=60 ml/min/1.73m2 [facility] Comment: Calculated using CKD-EPI equati on AnGap 9 8 - 16 mEq/L [facility] Specimen Anatomical Collection Method Collection Time Receive d Time (Source) Location / / Volume Laterality Blood 06/25/2022 5:51 AM 2 6:23 CDT AM CDT Patrice Hollins MD LABORATORY Performing Organization Address City/State/ZIP Code Phon e Number [facility] [place] [address] (ABNORMAL) CBC WITH PLATELET (06/25/2022 5:51 AM CDT) athologist Signature WBC 12.52 (H) 4.00 - [facility] 10.00 k/cmm RBC 3.62 (L) 4.60 - 6.00 [facility] m/cmm Hgb 10.2 (L) 13.1 - 17.5 [facility] g/dL Hematocrit 30.6 (L) 40.0 - 51.0 [facility] % MCV 84.5 80.0 - [facility] 100.0 fL MCH 28.2 25.0 - 32.0 [facility] pg MCHC 33.3 31.0 - 36.0 [facility] g/dL RDW 13.3 11.5 - 14.5 [facility] % Plt 522 (H) 150 - 400 [facility] k/cmm MPV 9.7 6.5 - 12.5 [facility] fL Specimen Anatomical Collection Method Collection Time Receive d Time (Source) Location / / Volume Laterality Blood 06/25/2022 5:51 AM 6:23 CDT AM CDT Patrice Hollins MD LABORATORY Performing Organization Address City/[facility] Hospital/ZIP Code Phon e Number [facility] [place] [address] (ABNORMAL) POC GLUCOSE (06/24/2022 9:13 PM CDT) athologist Signature POC Glucose 211 (H) 70 - 100 [facility] mg/dL CAMPUS - POINT OF CARE Specimen (Source) Anatomical Collection Method Collection Time Re ceived Time Location / / Volume Laterality Blood 06/24/2022 9:13 PM CDT Kingston Castañeda MD LABORATORY Performing Organization Address City/State/ZIP Code Phon e Number [facility] - POINT OF CARE [address] [place] [address] (ABNORMAL) POC GLUCOSE (06/24/2022 6:41 PM CDT) athologist Signature POC Glucose 248 (H) 70 - 100 [facility] mg/dL CAMPUS - POINT OF CARE Specimen (Source) Anatomical Collection Method Collection Time Re ceived Time Location / / Volume Laterality Blood 06/24/2022 6:41 PM CDT Kingston Castañeda MD LABORATORY Performing Organization Address City/[facility] Hospital/ZIP Code Phon e Number [facility] - POINT OF CARE [address] [place] [address] (ABNORMAL) POC GLUCOSE (06/24/2022 4:39 PM CDT) P athologist Signature POC Glucose 214 (H) 70 - 100 [facility] mg/dL [place] - POINT OF CARE Specimen (Source) Anatomical Collection Method Collection Time Re ceived Time Location / / Volume Laterality Blood 06/24/2022 4:39 PM CDT Kingston Castañeda MD LABORATORY Performing Organization Address [facility] Code Phon e Number [facility] - POINT OF CARE [address] [place] [address] XR C ARM OVER 3 HRS (06/24/2022 [...] POC Glucose 141 (H) 70 - 100 [facility] mg/dL CAMPUS - POINT OF CARE Specimen (Source) Anatomical Collection Method Collection Time Re ceived Time Location / / Volume Laterality Blood 06/24/2022 1:10 PM CDT Kingston Castañeda MD LABORATORY Performing Organization Address City/[facility] Hospital/ZIP Code Phon e Number [facility] - POINT OF CARE [address] [place] [address] (ABNORMAL) POC GLUCOSE (06/24/2022 10:53 AM CDT) athologist Signature POC Glucose 146 (H) 70 - 100 [facility] mg/dL CAMPUS - POINT OF CARE Specimen (Source) Anatomical Collection Method Collection Time Re ceived Time Location / / Volume Laterality Blood 06/24/2022 10:53 AM CDT Kingston Castañeda MD LABORATORY Performing Organization Address [facility] Code Phon e Number [facility] - POINT OF CARE [address] [place] [address] RED BLOOD CELLS LEUKOCYTE REDUCED ADULT (BLOOD ADMIN) (06/24/2022 8:39 AM CDT) athologist [facility] RBC Ready Product [facility] Ready Specimen Anatomical Collection Method Collection Time Receive d Time (Source) Location / / Volume Laterality Other 06/24/2022 8:39 AM 2 8:39 CDT AM CDT Narrative [facility] - 06/24/2022 8:45 AM CDT 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 in case 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 bleeding Is a signed informed consent on file: Ludwig regan-on file Reason for Transfusion:->Anticipated Blo od Loss for Surgery/Procedure Does patient require irradiated product: No 2 Units Miri Matthew MD BLOOD BANK ORDERABLES (BLOOD ADMIN) Performing Organization Address City/[facility] Hospital/ZIP Code Phon e Number [facility] [place] [address] (ABNORMAL) ANTI XA HEPARIN UNFRACTIONATED (06/24/2022 7:04 AM CDT) athologist Signature Anti XA Hep U 0.12 (L) 0.30 - [facility] 0.70 IU/mL Specimen Anatomical Collection Method Collection Time Receive d Time (Source) Location / / Volume Laterality Blood 06/24/2022 7:04 AM 2 7:35 CDT AM CDT Patrice Hollins MD LABORATORY Performing Organization Address City/State/ZIP Code Phon e Number [facility] [place] [address] (ABNORMAL) POC GLUCOSE (06/24/2022 6:42 AM CDT) athologist Signature POC Glucose 155 (H) 70 - 100 [facility] mg/dL CAMPUS - POINT OF CARE Specimen (Source) Anatomical Collection Method Collection Time Re ceived Time Location / / Volume Laterality Blood 06/24/2022 6:42 AM CDT Kingston Castañeda MD LABORATORY Performing Organization Address City/State/ZIP Code Phon e Number [facility] - POINT OF CARE [address] [place] [phone] MAGNESIUM (06/24/2022 5:43 AM CDT) athologist [facility] Magnesium 2.0 1.6 - 2.6 [facility] mg/dL Specimen Anatomical Collection Method Collection Time Receive d Time (Source) Location / / Volume Laterality Blood 06/24/2022 5:43 AM 6:18 CDT AM CDT Patrice Hollins MD LABORATORY Performing Organization Address City/[facility] Hospital/ZIP Code Phon e Number [facility] [place] [address] (ABNORMAL) PANEL RENAL (06/24/2022 5:43 AM CDT) athologist [facility] Sodium 132 (L) 135 - 148 [facility] mEq/L Potassium 4.2 3.5 - 5.3 [facility] mEq/L Chloride 96 92 - 108 [facility] mEq/L CO2 23 22 - 30 [facility] mEq/L Glucose 160 (H) 70 - 100 [facility] mg/dL BUN 19 6 - 20 [facility] mg/dL Creatinine 0.62 (L) 0.70 - 1.25 [facility] mg/dL Calcium 9.5 8.6 - 10.0 [facility] mg/dL Albumin 3.7 (L) 3.8 - 5.1 [facility] g/dL Phosphorus 4.3 2.5 - 4.5 [facility] mg/dL eGFR, High >120 >=60 [facility] ml/min/1.73 m2 Comment: Calculated using CKD-EPI equati on AnGap 13 8 - 16 mEq/L [facility] eGFR, Low 120 >=60 ml/min/1.73m2 [facility] Comment: Calculated using CKD-EPI equati on Specimen Anatomical Collection Method Collection Time Receive d Time (Source) Location / / Volume Laterality Blood 06/24/2022 5:43 AM 2 6:18 CDT AM CDT Patrice Hollins MD LABORATORY Performing Organization Address City/[facility]/ZIP Code Phon e Number [facility] [place] [address] (ABNORMAL) CBC WITH PLATELET (06/24/2022 5:43 AM CDT) P athologist Signature WBC 11.29 (H) 4.00 - [facility] 10.00 k/cmm RBC 4.30 (L) 4.60 - 6.00 [facility] m/cmm Hgb 12.0 (L) 13.1 - 17.5 [facility] g/dL Hematocrit 36.0 (L) 40.0 - 51.0 [facility] % MCV 83.7 80.0 - [facility] 100.0 fL MCH 27.9 25.0 - 32.0 [facility] pg MCHC 33.3 31.0 - 36.0 [facility] g/dL RDW 13.3 11.5 - 14.5 [facility] % Plt 527 (H) 150 - 400 [facility] k/cmm MPV 9.8 6.5 - 12.5 [facility] fL Specimen Anatomical Collection Method Collection Time Receive d Time (Source) Location / / Volume Laterality Blood 06/24/2022 5:43 AM 2 6:18 CDT AM CDT Patrice Hollins MD LABORATORY Performing Organization Address City/State/ZIP Code Phon e Number [facility] [place] [address] (ABNORMAL) ANTI XA HEPARIN UNFRACTIONATED (06/23/2022 10:42 PM CDT) P athologist Signature Anti XA Hep U 0.29 (L) 0.30 - [facility] 0.70 IU/mL Specimen Anatomical Collection Method Collection Time Receive d Time (Source) Location / / Volume Laterality Blood 06/23/2022 10:42 06/23/2022 PM CDT 11:02 PM CDT Patrice Hollins MD LABORATORY Performing Organization Address City/[facility]/ZIP Code Phon e Number [facility] [place] [address] (ABNORMAL) POC GLUCOSE (06/23/2022 8:46 PM CDT) athologist Signature POC Glucose 136 (H) 70 - 100 [facility] mg/dL CAMPUS - POINT OF CARE Specimen (Source) Anatomical Collection Method Collection Time Re ceived Time Location / / Volume Laterality Blood 06/23/2022 8:46 PM CDT Kingston Castañeda MD LABORATORY Performing Organization Address City/[facility] Hospital/ZIP Code Phon e Number [facility] - POINT OF CARE [address] [place] [phone] (ABNORMAL) POC GLUCOSE (06/23/2022 3:57 PM CDT) athologist Signature POC Glucose 200 (H) 70 - 100 [facility] mg/dL CAMPUS - POINT OF CARE Specimen (Source) Anatomical Collection Method Collection Time Re ceived Time Location / / Volume Laterality Blood 06/23/2022 3:57 PM CDT Kingston Castañeda MD LABORATORY Performing Organization Address City/[facility] Hospital/ZIP Code Phon e Number [facility] - POINT OF CARE [address] [place] [address] (ABNORMAL) ANTI XA HEPARIN UNFRACTIONATED (06/23/2022 3:40 PM CDT) Analysis Performed At [facility] logist Time Signature Anti XA Hep U <0.04 (L) 0.30 - [facility] 0.70 IU/mL Specimen Anatomical Collection Method Collection Time Receive d Time (Source) Location / / Volume Laterality Blood 06/23/2022 3:40 PM 3:47 CDT PM CDT Patrice Hollins MD LABORATORY Performing Organization Address City/[facility] Hospital/ZIP Code Phon e Number [facility] [place] [address] (ABNORMAL) POC GLUCOSE (06/23/2022 11:08 AM CDT) athologist Signature POC Glucose 125 (H) 70 - 100 [facility] mg/dL CAMPUS - POINT OF CARE Specimen (Source) Anatomical Collection Method Collection Time Re ceived Time Location / / Volume Laterality Blood 06/23/2022 11:08 AM CDT Kingston Castañeda MD LABORATORY Performing Organization Address City/[facility] Hospital/ZIP Code Phon e Number [facility] - POINT OF CARE [address] [place] [phone] (ABNORMAL) ANTI XA HEPARIN UNFRACTIONATED (06/23/2022 6:25 AM CDT) Analysis Performed At Patho logist Time Signature Anti XA Hep U <0.04 (L) 0.30 - [facility] 0.70 IU/mL Specimen Anatomical Collection Method Collection Time Receive d Time (Source) Location / / Volume Laterality Blood 06/23/2022 6:25 AM 6:34 CDT AM CDT Patrice Hollins MD LABORATORY Performing Organization Address City/[facility]/ZIP Code Phon e Number [facility] [place] [address] (ABNORMAL) POC GLUCOSE (06/23/2022 6:10 AM CDT) athologist Signature POC Glucose 131 (H) 70 - 100 [facility] mg/dL CAMPUS - POINT OF CARE Specimen (Source) Anatomical Collection Method Collection Time Re ceived Time Location / / Volume Laterality Blood 06/23/2022 6:10 AM CDT Kingston Castañeda MD LABORATORY Performing Organization Address City/[facility]/ZIP Code Phon e Number [facility] - POINT OF CARE [address] [place] [address] (ABNORMAL) POC GLUCOSE (06/22/2022 9:19 PM CDT) athologist Signature POC Glucose 195 (H) 70 - 100 [facility] mg/dL CAMPUS - POINT OF CARE Specimen (Source) Anatomical Collection Method Collection Time Re ceived Time Location / / Volume Laterality Blood 06/22/2022 9:19 PM CDT Kingston Castañeda MD LABORATORY Performing Organization Address City/[facility]/ZIP Code Phon e Number [facility] - POINT OF CARE [address] [place] [phone] (ABNORMAL) POC GLUCOSE (06/22/2022 4:03 PM CDT) athologist Signature POC Glucose 142 (H) 70 - 100 [facility] mg/dL [place] - POINT OF CARE Specimen (Source) Anatomical Collection Method Collection Time Re ceived Time Location / / Volume Laterality Blood 06/22/2022 4:03 PM CDT Kingston Castañeda MD LABORATORY Performing Organization Address City/[facility]/ZIP Code Phon e Number [facility] - POINT OF CARE [address] [place] [address] (ABNORMAL) POC GLUCOSE (06/22/2022 11:07 AM CDT) athologist Signature POC Glucose 115 (H) 70 - 100 [facility] mg/dL [facility] POINT OF CARE Specimen (Source) Anatomical Collection Method Collection Time Re ceived Time Location / / Volume Laterality Blood 06/22/2022 11:07 AM CDT Kingston Castañeda MD LABORATORY Performing Organization Address [facility] Phon e Number [facility] POINT OF CARE [address] [place] [address] (ABNORMAL) PROTHROMBIN (PT) & INR (06/22/2022 10:53 AM CDT) athologist [facility] PT 13.9 (H) 9.0 - 12.5 [facility] sec INR 1.2 (H) 0.8 - 1.1 [facility] Specimen Anatomical Collection Method Collection Time Receive d Time (Source) Location / / Volume Laterality Blood 06/22/2022 10:53 06/22/2022 AM CDT 11:01 AM CDT Patrice Hollins MD LABORATORY Performing Organization Address City/State/ZIP Code Phon e Number [facility] [place] [address] [address] [facility] ANTIBODY SCREEN (06/22/2022 10:53 AM CDT) athologist Signature Sabrina Screen Negative [facility] Specimen Anatomical Collection Method Collection Time Receive d Time (Source) Location / / Volume Laterality Blood 06/22/2022 10:53 06/22/2022 AM CDT 11:02 AM CDT Patrice Hollins MD LAB TRANSFUSION SERVICES Performing Organization Address City/State/ZIP Code Phon e Number [facility] [place] [address] BLOOD TYPING-ABO/RH (06/22/2022 10:53 AM CDT) athologist [facility] ABORHG A POS [facility] Specimen Anatomical Collection Method Collection Time Receive d Time (Source) Location / / Volume Laterality Blood 06/22/2022 10:53 06/22/2022 AM CDT 11:02 AM CDT Patrice Hollins MD LAB TRANSFUSION SERVICES Performing Organization Address City/[facility]/ZIP Code Phon e Number [facility] [place] [address] COVID-19 SURVEILLANCE (06/22/2022 7:10 AM CDT) [facility] Method Time Signature COVID-19 Not Detected Not Detected [facility] Specimen (Source) Anatomical Collection Method Collection Time Re ceived Time Location / / Volume Laterality Nasopharyngeal Swab 06/22/2022 7:10 06/22 AM CDT 11:15 AM CDT Narrative [facility] - 06/22/2022 12:26 PM CDT Preferred specimen is Nasopharyngeal swab Is the patient a healthcare employee: No Is the patient a [employer] [facility] Employee : No Patrice Hollins MD LABORATORY Performing Organization Address City/[facility] Hospital/ZIP Code Phon e Number [facility] [place] [address] (ABNORMAL) POC GLUCOSE (06/22/2022 6:11 AM CDT) athologist [facility] POC Glucose 160 (H) 70 - 100 [facility] mg/dL CAMPUS - POINT OF CARE Specimen (Source) Anatomical Collection Method Collection Time Re ceived Time Location / / Volume Laterality Blood 06/22/2022 6:11 AM CDT Kingston Castañeda MD LABORATORY Performing Organization Address [facility]/ZIP Code Phon e Number [facility] - POINT OF CARE [address] [place] [id number] ANTI XA HEPARIN UNFRACTIONATED (06/22/2022 5:25 AM CDT) athologist [facility] Anti XA Hep U 0.53 0.30 - 0.70 [facility] [facility] IU/mL Specimen Anatomical Collection Method Collection Time Receive d Time (Source) Location / / Volume Laterality Blood 06/22/2022 5:25 AM 2 9:54 CDT AM CDT Patrice Hollins MD LABORATORY Performing Organization Address City/[facility]/ZIP Code Phon e Number [facility] [place] [address] (ABNORMAL) CBC WITH PLATELET (06/22/2022 5:25 AM CDT) P athologist Signature WBC 10.55 (H) 4.00 - [facility] 10.00 k/cmm RBC 3.58 (L) 4.60 - 6.00 [facility] m/cmm Hgb 10.1 (L) 13.1 - 17.5 [facility] g/dL Hematocrit 30.2 (L) 40.0 - 51.0 [facility] % MCV 84.4 80.0 - [facility] 100.0 fL MCH 28.2 25.0 - 32.0 [facility] pg MCHC 33.4 31.0 - 36.0 [facility] g/dL RDW 13.3 11.5 - 14.5 [facility] % Plt 378 150 - 400 [facility] k/cmm MPV 9.7 6.5 - 12.5 [facility] fL Specimen Anatomical Collection Method Collection Time Receive d Time (Source) Location / / Volume Laterality Blood 06/22/2022 5:25 AM 2 5:39 CDT AM CDT Patrice Hollins MD LABORATORY Performing Organization Address City/[facility]/ZIP Code Phon e Number [facility] [place] [address] ANTI XA ASSAY LMW HEPARIN (06/22/2022 5:25 AM CDT) P athologist Signature Anti XA LMW 0.63 IU/mL [facility] Comment: Anti Xa Assay LMW Heparin Therapeutic Ra nges: 0.4-1.1 IU/mL for twice daily 1.0-2.0 IU/mL for once daily Specimen Anatomical Collection Method Collection Time Receive d Time (Source) Location / / Volume Laterality Blood 06/22/2022 5:25 AM 5:39 CDT AM CDT Patrice Hollins MD LABORATORY Performing Organization Address City/[facility]/ZIP Code Phon e Number [facility] [place] [address] [place] [address] (ABNORMAL) POC GLUCOSE (06/21/2022 9:06 PM CDT) athologist Signature POC Glucose 158 (H) 70 - 100 [facility] mg/dL CAMPUS - POINT OF CARE Specimen (Source) Anatomical Collection Method Collection Time Re ceived Time Location / / Volume Laterality Blood 06/21/2022 9:06 PM CDT Kingston Castañeda MD LABORATORY Performing Organization Address City/[facility]/ZIP Code Phon e Number [facility] - POINT OF CARE [address] [place] [phone] (ABNORMAL) POC GLUCOSE (06/21/2022 4:13 PM CDT) athologist Signature POC Glucose 145 (H) 70 - 100 [facility] mg/dL CAMPUS - POINT OF CARE Specimen (Source) Anatomical Collection Method Collection Time Re ceived Time Location / / Volume Laterality Blood 06/21/2022 4:13 PM CDT Kingston Castañeda MD LABORATORY Performing Organization Address City/[facility] Code Phon e Number [facility] - POINT OF [address] [address] (ABNORMAL) POC GLUCOSE (06/21/2022 11:53 AM CDT) athologist Signature POC Glucose 154 (H) 70 - 100 [facility] mg/dL CAMPUS - POINT OF CARE Specimen (Source) Anatomical Collection Method Collection Time Re ceived Time Location / / Volume Laterality Blood 06/21/2022 11:53 AM CDT Kingston Castañeda MD LABORATORY Performing Organization Address City/[facility]/ZIP Code Phon e Number [facility] - POINT OF CARE [address] [place] [phone] ANTI XA HEPARIN UNFRACTIONATED (06/21/2022 6:19 AM CDT) athologist Signature Anti XA Hep U 0.30 0.30 - 0.70 [facility] IU/mL Specimen Anatomical Collection Method Collection Time Receive d Time (Source) Location / / Volume Laterality Blood 06/21/2022 6:19 AM 6:57 CDT AM CDT Patrice Hollins MD LABORATORY Performing Organization Address City/[facility]/ZIP Code Phon e Number [facility] [place] [address] [place] [address] (ABNORMAL) POC GLUCOSE (06/21/2022 6:17 AM CDT) athologist Signature POC Glucose 141 (H) 70 - 100 [facility] mg/dL CAMPUS - POINT OF CARE Specimen (Source) Anatomical Collection Method Collection Time Re ceived Time Location / / Volume Laterality Blood 06/21/2022 6:17 AM CDT Kingston Castañeda MD LABORATORY Performing Organization Address [facility] Code Phon e Number [facility] - POINT OF CARE [address] [place] [phone] (ABNORMAL) POC GLUCOSE (06/20/2022 8:51 PM CDT) athologist Signature POC Glucose 153 (H) 70 - 100 [facility] mg/dL CAMPUS - POINT OF CARE Specimen (Source) Anatomical Collection Method Collection Time Re ceived Time Location / / Volume Laterality Blood 06/20/2022 8:51 PM CDT Kingston Castañeda MD LABORATORY Performing Organization Address [facility] Phon e Number [facility] - POINT OF [address] [address] (ABNORMAL) POC GLUCOSE (06/20/2022 4:10 PM CDT) athologist Signature POC Glucose 133 (H) 70 - 100 [facility] mg/dL CAMPUS - POINT OF CARE Specimen (Source) Anatomical Collection Method Collection Time Re ceived Time Location / / Volume Laterality Blood 06/20/2022 4:10 PM CDT Kingston Castañeda MD LABORATORY Performing Organization Address [facility] Code Phon e Number [facility] POINT OF CARE [address] [place] [phone] XR ANKLE RIGHT 3 V AP/OBL/LAT* (06/20/2022 [...] HEPARIN UNFRACTIONATED (06/20/2022 12:14 PM CDT) athologist [facility] Anti XA Hep U 0.34 0.30 - 0.70 [facility] IU/mL Specimen Anatomical Collection Method Collection Time Receive d Time (Source) Location / / Volume Laterality Blood 06/20/2022 12:14 06/20/2022 PM CDT 12:42 PM CDT Patrice Hollins MD LABORATORY Performing Organization Address City/[facility] Hospital/ZIP Code Phon e Number [facility] [place], [place] [address] [place] [address] (ABNORMAL) POC GLUCOSE (06/20/2022 12:06 PM CDT) athologist Signature POC Glucose 143 (H) 70 - 100 [facility] mg/dL CAMPUS - POINT OF CARE Specimen (Source) Anatomical Collection Method Collection Time Re ceived Time Location / / Volume Laterality Blood 06/20/2022 12:06 PM CDT Kingston Castañeda MD LABORATORY Performing Organization Address City/State/ZIP Code Phon e Number [facility] [place] - POINT OF CARE [address] [place] [address] (ABNORMAL) POC GLUCOSE (06/20/2022 6:19 AM CDT) athologist Signature POC Glucose 126 (H) 70 - 100 [facility] mg/dL CAMPUS - POINT OF CARE Specimen (Source) Anatomical Collection Method Collection Time Re ceived Time Location / / Volume Laterality Blood 06/20/2022 6:19 AM CDT Kingston Castañeda MD LABORATORY Performing Organization Address City/[facility]/ZIP Code Phon e Number [facility] CARE [address] [place] [address] ANTI XA HEPARIN UNFRACTIONATED (06/20/2022 5:57 AM CDT) athologist Signature Anti XA Hep U 0.42 0.30 - 0.70 [facility] IU/mL Specimen Anatomical Collection Method Collection Time Receive d Time (Source) Location / / Volume Laterality Blood 06/20/2022 5:57 AM 2 6:19 CDT AM CDT Patrice Hollins MD LABORATORY Performing Organization Address City/[facility] Phon e Number [facility] [place] [address] [place] [address] (ABNORMAL) PANEL BASIC METABOLIC (BMP) (06/20/2022 5:57 AM CDT) athologist Signature CO2 26 22 - 30 [facility] mEq/L Glucose 146 (H) 70 - 100 [facility] mg/dL BUN 14 6 - 20 [facility] mg/dL Creatinine 0.63 (L) 0.70 - 1.25 [facility] mg/dL Calcium 8.4 (L) 8.6 - 10.0 [facility] mg/dL eGFR, High >120 >=60 [facility] ml/min/1.73 m2 Comment: Calculated using CKD-EPI equati on Sodium 139 135 - 148 mEq/L [facility] Potassium 3.8 3.5 - 5.3 mEq/L [facility] Chloride 103 92 - 108 mEq/L [facility] eGFR, Low 119 >=60 ml/min/1.73m2 [facility] Comment: Calculated using CKD-EPI equati on AnGap 10 8 - 16 mEq/L [facility] Specimen Anatomical Collection Method Collection Time Receive d Time (Source) Location / / Volume Laterality Blood 06/20/2022 5:57 AM 2 6:19 CDT AM CDT Patrice Hollins MD LABORATORY Performing Organization Address City/[facility]/ZIP Code Phon e Number [facility] [place] [address] (ABNORMAL) CBC WITH PLATELET (06/20/2022 5:57 AM CDT) athologist [facility] WBC 7.23 4.00 - [facility] 10.00 k/cmm RBC 3.19 (L) 4.60 - 6.00 [facility] m/cmm Hgb 9.0 (L) 13.1 - 17.5 [facility] g/dL Hematocrit 27.0 (L) 40.0 - 51.0 [facility] % MCV 84.6 80.0 - [facility] 100.0 fL MCH 28.2 25.0 - 32.0 [facility] pg MCHC 33.3 31.0 - 36.0 [facility] g/dL RDW 13.1 11.5 - 14.5 [facility] % Plt 266 150 - 400 [facility] k/cmm MPV 10.1 6.5 - 12.5 [facility] fL Specimen Anatomical Collection Method Collection Time Receive d Time (Source) Location / / Volume Laterality Blood 06/20/2022 5:57 AM 2 6:19 CDT AM CDT Patrice Hollins MD LABORATORY Performing Organization Address [facility]/ZIP Code Phon e Number [facility] [place] [address] EXTRA TUBE - SST (06/20/2022 1:05 AM CDT) [facility] Comment: SST tubes (Serum Separator) are stored in the lab for 3 days from the collection date. Specimen Anatomical Collection Method Collection Time Receive d Time (Source) Location / / Volume Laterality Blood 06/20/2022 1:05 AM 2 1:05 CDT AM CDT Kingston Castañeda MD LABORATORY Performing Organization Address City/[facility]/ZIP Code Phon e Number [facility] [place] [address] ANTI XA HEPARIN UNFRACTIONATED (06/20/2022 12:19 AM CDT) athologist Signature Anti XA Hep U 0.44 0.30 - 0.70 [facility] IU/mL Specimen Anatomical Collection Method Collection Time Receive d Time (Source) Location / / Volume Laterality Blood 06/20/2022 12:19 06/20/2022 1:07 AM CDT AM CDT Patrice Hollins MD LABORATORY Performing Organization Address City/[facility]/ZIP Code Phon e Number [facility] [place] [address] (ABNORMAL) POC GLUCOSE (06/19/2022 8:57 PM CDT) athologist Signature POC Glucose 126 (H) 70 - 100 [facility] mg/dL CAMPUS - POINT OF CARE Specimen (Source) Anatomical Collection Method Collection Time Re ceived Time Location / / Volume Laterality Blood 06/19/2022 8:57 PM CDT Kingston Castañeda MD LABORATORY Performing Organization Address [facility] Code Phon e Number [facility] CARE [address] [place] [phone] XR FOOT RIGHT 3 V AP/OBL/LAT* (06/19/2022 [...] vertebral body. Reading Radiologist: Dora Mathew Tamera [facility] X-RAY XR PELVIS 3 V AP + [...] XA Hep U 0.25 (L) 0.30 - [facility] 0.70 IU/mL Specimen Anatomical Collection Method Collection Time Receive d Time (Source) Location / / Volume Laterality Blood 06/19/2022 5:27 PM 6:07 CDT PM CDT Patrice Hollins MD LABORATORY Performing Organization Address City/[facility] Phon e Number [facility] [address] (ABNORMAL) POC GLUCOSE (06/19/2022 4:01 PM CDT) athologist Signature POC Glucose 159 (H) 70 - 100 [facility] mg/dL CAMPUS - POINT OF CARE Specimen (Source) Anatomical Collection Method Collection Time Re ceived Time Location / / Volume Laterality Blood 06/19/2022 4:01 PM CDT Kingston Castañeda MD LABORATORY Performing Organization Address City/[facility]/ZIP Code Phon e Number [facility] - POINT [facility] CARE [address] [place] [address] ANTI XA HEPARIN UNFRACTIONATED (06/19/2022 12:51 PM CDT) athologist Signature Anti XA Hep U 0.34 0.30 - 0.70 [facility] IU/mL Specimen Anatomical Collection Method Collection Time Receive d Time (Source) Location / / Volume Laterality Blood 06/19/2022 12:51 06/19/2022 PM CDT 12:59 PM CDT Patrice Hollins MD LABORATORY Performing Organization Address City/[facility]/ZIP Code Phon e Number [facility] [address] PELVIS 3D RECONSTRUCTION (06/19/2022 11:49 [...] 128 (H) 70 - 100 [facility] mg/dL CAMPUS - POINT OF CARE Specimen (Source) Anatomical Collection Method Collection Time Re ceived Time Location / / Volume Laterality Blood 06/19/2022 11:19 AM CDT Kingston Castañeda MD LABORATORY Performing Organization Address City/State/ZIP Code Phon e Number [facility] - POINT OF CARE [address] [place] [address] CT UROGRAM (06/19/2022 11:05 AM CDT) Anatomical [...] POC Glucose 135 (H) 70 - 100 [facility] mg/dL CAMPUS - POINT OF CARE Specimen (Source) Anatomical Collection Method Collection Time Re ceived Time Location / / Volume Laterality Blood 06/19/2022 6:03 AM CDT Kingston Castañeda MD LABORATORY Performing Organization Address City/State/ZIP Code Phon e Number [facility] - POINT OF CARE [address] [place] [address] (ABNORMAL) ANTI XA HEPARIN UNFRACTIONATED (06/19/2022 5:15 AM CDT) Analysis Performed At Patho logist Time Signature Anti XA Hep U <0.04 (L) 0.30 - [facility] 0.70 IU/mL Specimen Anatomical Collection Method Collection Time Receive d Time (Source) Location / / Volume Laterality Blood 06/19/2022 5:15 AM 6:21 CDT AM CDT Patrice Hollins MD LABORATORY Performing Organization Address City/State/ZIP Code [place] [address] (ABNORMAL) PANEL BASIC METABOLIC (BMP) (06/19/2022 5:15 AM CDT) athologist Signature CO2 24 22 - 30 [facility] mEq/L Glucose 140 (H) 70 - 100 [facility] mg/dL BUN 12 6 - 20 [facility] mg/dL Creatinine 0.61 (L) 0.70 - 1.25 [facility] mg/dL Calcium 8.4 (L) 8.6 - 10.0 [facility] mg/dL eGFR, High >120 >=60 [facility] ml/min/1.73 m2 Comment: Calculated using CKD-EPI equati on Sodium 139 135 - 148 mEq/L [facility] Potassium 4.5 3.5 - 5.3 mEq/L [facility] Chloride 104 92 - 108 mEq/L [facility] eGFR, Low >120 >=60 ml/min/1.73m2 [facility] Comment: Calculated using CKD-EPI equati on AnGap 11 8 - 16 mEq/L [facility] Specimen Anatomical Collection Method Collection Time Receive d Time (Source) Location / / Volume Laterality Blood 06/19/2022 5:15 AM 6:21 CDT AM CDT Patrice Hollins MD LABORATORY Performing Organization Address City/[facility]/ZIP Code [place] [address] (ABNORMAL) CBC WITH PLATELET (06/19/2022 5:15 AM CDT) athologist Signature WBC 4.92 4.00 - [facility] 10.[facility] k/cmm RBC 3.30 (L) 4.60 - 6.00 [facility] m/cmm Hgb 9.4 (L) 13.1 - 17.5 [facility] g/dL Hematocrit 28.0 (L) 40.0 - 51.0 [facility] % MCV 84.8 80.0 - [facility] 100.0 fL MCH 28.5 25.0 - 32.0 [facility] pg MCHC 33.6 31.0 - 36.0 [facility] g/dL RDW 12.8 11.5 - 14.5 [facility] % Plt 227 150 - 400 [facility] k/cmm MPV 10.7 6.5 - 12.5 [facility] fL Specimen Anatomical Collection Method Collection Time Receive d Time (Source) Location / / Volume Laterality Blood 06/19/2022 5:15 AM 6:21 CDT AM CDT Patrice Hollins MD LABORATORY Performing Organization Address City/[facility]/ZIP Code Phon e Number [facility] [place] [address] (ABNORMAL) ANTI XA HEPARIN UNFRACTIONATED (06/18/2022 11:59 PM CDT) Analysis Performed At Patho logist Time Signature Anti XA Hep U <0.04 (L) 0.30 - [facility] 0.70 IU/mL Specimen Anatomical Collection Method Collection Time Receive d Time (Source) Location / / Volume Laterality Blood 06/18/2022 11:59 06/18/2022 PM CDT 11:59 PM CDT Narrative [facility] - 06/19/2022 12:35 AM CDT Baseline Patrice Hollins MD LABORATORY Performing Organization Address City/[facility]/ZIP Code Phon e Number [facility] [place] [address] (ABNORMAL) POC GLUCOSE (06/18/2022 9:13 PM CDT) P athologist Signature POC Glucose 127 (H) 70 - 100 [facility] mg/dL CAMPUS - POINT OF CARE Specimen (Source) Anatomical Collection Method Collection Time Re ceived Time Location / / Volume Laterality Blood 06/18/2022 9:13 PM CDT Kingston Castañeda MD LABORATORY Performing Organization Address City/State/ZIP Code Phon e Number [facility] CARE [address] [place] [address] (ABNORMAL) POC GLUCOSE (06/18/2022 7:03 PM CDT) P athologist Signature POC Glucose 147 (H) 70 - 100 [facility] mg/dL CAMPUS - POINT OF CARE Specimen (Source) Anatomical Collection Method Collection Time Re ceived Time Location / / Volume Laterality Blood 06/18/2022 7:03 PM CDT Kingston Castañeda MD LABORATORY Performing Organization Address City/State/ZIP Code Phon e Number [facility] [place] [facility] POINT OF CARE [address] [place] [address] XR C ARM OVER 3 HRS (06/18/2022 [...] Glucose 98 70 - 100 [facility] mg/dL CAMPUS - POINT OF CARE Specimen (Source) Anatomical Collection Method Collection Time Re ceived Time Location / / Volume Laterality Blood 06/18/2022 4:15 PM CDT Kingston Castañeda MD LABORATORY Performing Organization Address City/State/ZIP Code Phon e Number [facility] [place] - POINT OF CARE [address] [place] [address] .Post Sedation Immediate (06/18/2022 12:23 PM CDT) [...] the needle into the IVC. A 5 Estonian pigtail flush catheter was advanced over the [...] the needle into the IVC. A 5 Estonian pigtail flush catheter was advanc ed over [...] 109 (H) 70 - 100 [facility] mg/dL CAMPUS - POINT OF CARE Specimen (Source) Anatomical Collection Method Collection Time Re ceived Time Location / / Volume Laterality Blood 06/18/2022 11:21 AM CDT Kingston Castañeda MD LABORATORY Performing Organization Address City/State/ZIP Code Phon e Number [facility] - POINT OF CARE [address] [place] [phone] (ABNORMAL) ANTI XA HEPARIN UNFRACTIONATED (06/18/2022 10:27 AM CDT) Analysis Performed At Patho logist Time Signature Anti XA Hep U <0.04 (L) 0.30 - [facility] 0.70 IU/mL Specimen Anatomical Collection Method Collection Time Receive d Time (Source) Location / / Volume Laterality Blood 06/18/2022 10:27 06/18/2022 AM CDT 10:32 AM CDT Patrice Hollins MD LABORATORY Performing Organization Address City/State/ZIP Code Phon e Number [facility] [place] [address] XR URETHROGRAM RETROGRADE (06/18/2022 9:14 AM [...] was unremarkable. No extravasatio n was demonstrated. Zigzag Elastic Attacher: Kirby Complications: None Fluoroscopy time: 22 seconds [...] urethra was unremarkable. No extravasation was demonstrated. Zigzag Elastic Attacher: Kirby Complications: None Fluoroscopy time: 22 seconds Dose: 12 mGy IMPRESSION IMPRESSION: No evidence for anterior ure thral injury. Reading Radiologist: Mario Orr Patrice Hollins MD [place] (ABNORMAL) POC GLUCOSE (06/18/2022 6:26 AM CDT) athologist Signature POC Glucose 125 (H) 70 - 100 [facility] mg/dL CAMPUS - POINT OF CARE Specimen (Source) Anatomical Collection Method Collection Time Re ceived Time Location / / Volume Laterality Blood 06/18/2022 6:26 AM CDT Kingston Castañeda MD LABORATORY Performing Organization Address City/State/ZIP Code Phon e Number [facility] CARE [address] [place] [address] (ABNORMAL) ANTI XA HEPARIN UNFRACTIONATED (06/18/2022 4:50 AM CDT) Analysis Performed At Patho logist Time Signature Anti XA Hep U <0.04 (L) 0.30 - [facility] 0.70 IU/mL Specimen Anatomical Collection Method Collection Time Receive d Time (Source) Location / / Volume Laterality Blood 06/18/2022 4:50 AM 2 5:11 CDT AM CDT Patrice Hollins MD LABORATORY Performing Organization Address City/[facility]/ZIP Code Phon e Number [facility] [place] [address] (ABNORMAL) PANEL BASIC METABOLIC (BMP) (06/18/2022 4:50 AM CDT) P athologist Signature CO2 23 22 - 30 [facility] mEq/L Glucose 137 (H) 70 - 100 [facility] mg/dL BUN 12 6 - 20 [facility] mg/dL Creatinine 0.66 (L) 0.70 - 1.25 [facility] mg/dL Calcium 8.3 (L) 8.6 - 10.0 [facility] mg/dL eGFR, High >120 >=60 [facility] ml/min/1.73 m2 Comment: Calculated using CKD-EPI equati on Sodium 137 135 - 148 mEq/L [facility] Potassium 3.8 3.5 - 5.3 mEq/L [facility] Chloride 105 92 - 108 mEq/L [facility] eGFR, Low 117 >=60 ml/min/1.73m2 [facility] Comment: Calculated using CKD-EPI equati on AnGap 9 8 - 16 mEq/L [facility] Specimen Anatomical Collection Method Collection Time Receive d Time (Source) Location / / Volume Laterality Blood 06/18/2022 4:50 AM 2 5:11 CDT AM CDT Patrice Hollins MD LABORATORY Performing Organization Address City/[facility]/ZIP Code Phon e Number [facility] [place] [address] (ABNORMAL) CBC WITH PLATELET (06/18/2022 4:50 AM CDT) P athologist Signature WBC 7.80 4.00 - [facility] 10.00 k/cmm RBC 3.37 (L) 4.60 - 6.00 [facility] m/cmm Hgb 9.6 (L) 13.1 - 17.5 [facility] g/dL Hematocrit 28.8 (L) 40.0 - 51.0 [facility] % MCV 85.5 80.0 - [facility] 100.0 fL MCH 28.5 25.0 - 32.0 [facility] pg MCHC 33.3 31.0 - 36.0 [facility] g/dL RDW 13.3 11.5 - 14.5 [facility] % Plt 191 150 - 400 [facility] k/cmm MPV 10.2 6.5 - 12.5 [facility] fL Specimen Anatomical Collection Method Collection Time Receive d Time (Source) Location / / Volume Laterality Blood 06/18/2022 4:50 AM 5:11 CDT AM CDT Patrice Hollins MD LABORATORY Performing Organization Address [facility] Phon e Number [facility] [place], [place] [id number] [place] [address] (ABNORMAL) ANTI XA HEPARIN UNFRACTIONATED (06/17/2022 10:34 PM CDT) athologist Signature Anti XA Hep U 0.22 (L) 0.30 - [facility] 0.70 IU/mL Specimen Anatomical Collection Method Collection Time Receive d Time (Source) Location / / Volume Laterality Blood 06/17/2022 10:34 06/17/2022 PM CDT 11:12 PM CDT Patrice Hollins MD LABORATORY Performing Organization Address [facility] Phon e Number [facility] [place], [place] [id number] [place] [address] (ABNORMAL) POC GLUCOSE (06/17/2022 8:43 PM CDT) athologist Signature POC Glucose 132 (H) 70 - 100 [facility] mg/dL CAMPUS - POINT OF CARE Specimen (Source) Anatomical Collection Method Collection Time Re ceived Time Location / / Volume Laterality Blood 06/17/2022 8:43 PM CDT Kingston Castañeda MD LABORATORY Performing Organization Address [facility]/ZIP Code Phon e Number [facility] - POINT OF CARE [address] [place] [phone] (ABNORMAL) POC GLUCOSE (06/17/2022 3:57 PM CDT) P athologist Signature POC Glucose 169 (H) 70 - 100 [facility] mg/dL [place] - POINT OF CARE Specimen (Source) Anatomical Collection Method Collection Time Re ceived Time Location / / Volume Laterality Blood 06/17/2022 3:57 PM CDT Kingston Castañeda MD LABORATORY Performing Organization Address City/State/ZIP Code Phon e Number [facility] - POINT OF CARE [address] [place] [address] ULT VENOUS LOWER EXTREMITY BILAT (06/17/2022 3:35 [...] reported to referring provider Nisha Guadalupe via [employer], who responded indicating that the communication was [...] reported to referring provider Nisha Guadalupe via [employer], who responded indicating that the communication was understood. Contact was made at the time of interpretation on 06/17/2022 3:37 PM, wit hin 5 minutes of observation. Reading Radiologist: Lenny Callahan Meredith Guadalupe TIMING INSPECTOR, [employer]AM LEADER ULT (ABNORMAL) POC GLUCOSE (06/17/2022 11:54 AM CDT) P athologist Signature POC Glucose 102 (H) 70 - 100 [facility] mg/dL CAMPUS - POINT OF CARE Specimen (Source) Anatomical Collection Method Collection Time Re ceived Time Location / / Volume Laterality Blood 06/17/2022 11:54 AM CDT Kingston Castañeda MD LABORATORY Performing Organization Address City/State/ZIP Code Phon e Number [facility] - POINT OF CARE [address] [place] [address] ANTIBODY SCREEN (06/17/2022 11:46 AM CDT) athologist Signature Sabrina Screen Negative [facility] Specimen Anatomical Collection Method Collection Time Receive d Time (Source) Location / / Volume Laterality Blood 06/17/2022 11:46 06/17/2022 AM CDT 12:06 PM CDT Patrice Hollins MD LAB TRANSFUSION SERVICES Performing Organization Address [facility] Code Phon e Number [facility] [place] [address] BLOOD TYPING-ABO/RH (06/17/2022 11:46 AM CDT) athologist Signature ABORHG A POS [facility] Specimen Anatomical Collection Method Collection Time Receive d Time (Source) Location / / Volume Laterality Blood 06/17/2022 11:46 06/17/2022 AM CDT 12:06 PM CDT Patrice Hollins MD LAB TRANSFUSION SERVICES Performing Organization Address [facility] [place] [address] POC GLUCOSE (06/17/2022 6:53 AM CDT) athologist Signature POC Glucose 88 70 - 100 [facility] mg/dL CAMPUS - POINT OF CARE Specimen (Source) Anatomical Collection Method Collection Time Re ceived Time Location / / Volume Laterality Blood 06/17/2022 6:53 AM CDT Kingston Castañeda MD LABORATORY Performing Organization Address [facility]/ZIP Code Phon e Number [facility] - POINT OF CARE [address] [place] [address] (ABNORMAL) POC GLUCOSE (06/17/2022 6:51 AM CDT) athologist Signature POC Glucose 20 (LL) 70 - 100 [facility] mg/dL CAMPUS - POINT OF CARE Specimen (Source) Anatomical Collection Method Collection Time Re ceived Time Location / / Volume Laterality Blood 06/17/2022 6:51 AM CDT Kingston Castañeda MD LABORATORY Performing Organization Address [facility]/ZIP Code Phon e Number [facility] - POINT OF CARE [address] [place] [address] (ABNORMAL) PANEL BASIC METABOLIC (BMP) (06/17/2022 5:07 AM CDT) athologist Signature CO2 23 22 - 30 [facility] mEq/L Glucose 118 (H) 70 - 100 [facility] mg/dL BUN 13 6 - 20 [facility] mg/dL Creatinine 0.82 0.70 - 1.25 [facility] mg/dL Calcium 8.1 (L) 8.6 - 10.0 [facility] mg/dL eGFR, High >120 >=60 [facility] ml/min/1.73 m2 Comment: Calculated using CKD-EPI equati on Sodium 137 135 - 148 mEq/L [facility] Potassium 3.6 3.5 - 5.3 mEq/L [facility] Chloride 105 92 - 108 mEq/L [facility] eGFR, Low 107 >=60 ml/min/1.73m2 [facility] Comment: Calculated using CKD-EPI equati on AnGap 9 8 - 16 mEq/L [facility] Specimen Anatomical Collection Method Collection Time Receive d Time (Source) Location / / Volume Laterality Blood 06/17/2022 5:07 AM 2 5:37 CDT AM CDT Kingston Castañeda MD LABORATORY Performing Organization Address City/State/ZIP Code Phon e Number [facility] [place] [address] [place] [address] (ABNORMAL) CBC WITH PLATELET (06/17/2022 5:07 AM CDT) athologist Signature WBC 7.32 4.00 - [facility] 10.00 k/cmm RBC 3.43 (L) 4.60 - 6.00 [facility] m/cmm Hgb 9.8 (L) 13.1 - 17.5 [facility] g/dL Hematocrit 29.4 (L) 40.0 - 51.0 [facility] % MCV 85.7 80.0 - [facility] 100.0 fL MCH 28.6 25.0 - 32.0 [facility] pg MCHC 33.3 31.0 - 36.0 [facility] g/dL RDW 13.3 11.5 - 14.5 [facility] % Plt 181 150 - 400 [facility] k/cmm MPV 10.1 6.5 - 12.5 [facility] fL Specimen Anatomical Collection Method Collection Time Receive d Time (Source) Location / / Volume Laterality Blood 06/17/2022 5:07 AM 5:36 CDT AM CDT Kingston Castañeda MD LABORATORY Performing Organization Address [facility]/ZIP Code Phon e Number [facility] [place] [address] (ABNORMAL) POC GLUCOSE (06/16/2022 9:14 PM CDT) athologist Signature POC Glucose 149 (H) 70 - 100 [facility] mg/dL CAMPUS - POINT OF CARE Specimen (Source) Anatomical Collection Method Collection Time Re ceived Time Location / / Volume Laterality Blood 06/16/2022 9:14 PM CDT Kingston Castañeda MD LABORATORY Performing Organization Address [facility]/ZIP Code Phon e Number [facility] [place] - POINT OF CARE [address] [place] [address] XR WRIST RIGHT 3+ PA/OB/LAT/JENS* (06/16/2022 6:58 [...] radius. Reading Radiologist: Indio Cadena Yaritza Gallegos TIMING INSPECTOR, [employer] TEAM LEADER X-RAY POC GLUCOSE (06/16/2022 6:05 PM CDT) athologist Signature POC Glucose 73 70 - 100 [facility] mg/dL CAMPUS - POINT OF CARE Specimen (Source) Anatomical Collection Method Collection Time Re ceived Time Location / / Volume Laterality Blood 06/16/2022 6:05 PM CDT Kingston Castañeda MD LABORATORY Performing Organization Address [facility] Phon e Number [facility] - POINT OF CARE [address] [place] [address] POC GLUCOSE (06/16/2022 12:47 PM CDT) athologist Signature POC Glucose 95 70 - 100 [facility] mg/dL [place] - POINT OF CARE Specimen (Source) Anatomical Collection Method Collection Time Re ceived Time Location / / Volume Laterality Blood 06/16/2022 12:47 PM CDT Kingston Castañeda MD LABORATORY Performing Organization Address [facility] Phon e Number [facility] - POINT OF CARE [address] [place] [address] XR PELVIS 5V AP/IN/OUTLET/JUDET* (06/16/2022 12:19 PM [...] 06/15/2022. Fluoroscopy time: ??22 seconds Dose:12 mGy [place] protocol was followed. ?? Technique: The patient [...] contrast. Procedure Note Anam Saleh MBBS - 09/12/2022Forma tting of this note might be different from the original. Exam: Cystogram Indication: Rule out bladder rupture Comparison: CT chest abdomen and pelvis 06/15/2022. Fluoroscopy time: 22 seconds Dose:12 mGy [place] protocol was followed. Technique: The patient arrived [...] athologist Signature Lactate 0.7 0.7 - 2.1 [facility] mmol/L Specimen Anatomical Collection Method Collection Time Receive d Time (Source) Location / / Volume Laterality Blood 06/16/2022 2:20 AM 2 2:47 CDT AM CDT Narrative [facility] - 06/16/2022 3:06 AM CDT Send specimen on ice! Gideon Dyer MD LABORATORY Performing Organization Address City/State/ZIP Code Phon e Number [facility] [place] [address] (ABNORMAL) URINALYSIS,TOTAL (06/16/2022 12:20 AM CDT) [facility] Method Time Signature Color YELLOW YELLOW [facility] Appearance CLEAR CLEAR [facility] Urine Glucose NEGATIVE NEGATIVE [facility] mg/dL Bili UA NEGATIVE NEGATIVE [facility] Ketones TRACE (A) NEGATIVE [facility] mg/dL Blood Ur NEGATIVE Neg-Trace [facility] PH Urine 5.5 5.0 - 7.0 [facility] Protein Ur TRACE Neg-Trace [facility] mg/dL Urobilinogen NORMAL NORMAL EU/dL [facility] Nitrite Ur NEGATIVE NEGATIVE [facility] Leuk Est NEGATIVE Neg-Trace [facility] WBC Ur 6-10 (A) 0 - 5 perHPF [facility] RBC Ur 11-20 (A) 0 - 3 perHPF [facility] SQ EPITH 0-5 0 - 5 perHPF [facility] Mucus 1+ perLPF [facility] Sperm PRESENT [facility] Bacteria UA PRESENT [facility] Comment: Presence of bacteria does not n ecessarily indicate a UTI. The presence of bacteria can indicate a non-clean catch urine specimen. Bacteria should be used in conjunction with other UA results and cl inical presentation to assist in diagnosing an infection. Urinalysis Performed at: [facility] Specific Dix 1.010 1.003 - 1.030 [facility] Specimen Anatomical Collection Method Collection Time Receive d Time (Source) Location / / Volume Laterality Urine 06/16/2022 12:20 06/16/2022 AM CDT 12:39 AM CDT Gideon Dyer MD LABORATORY Performing Organization Address City/State/ZIP Code Phon e Number [facility] [place] [address] XR PELVIS AP* (06/15/2022 11:21 PM [...] canal or neural foraminal stenosis. 3. 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 Reading Radiologist: Stephany [...] visualized paraspi nous tissues is noted. Suspected [place] syndrome on left. Procedure Note Stephany Granda [...] visualized paraspi nous tissues is noted. Suspected [place] syndrome on left. IMPRESSION Impression: 1. No fracture or subluxation of the cer vical vertebrae. 2. No significant spinal canal or neural foraminal stenosis. 3. 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 Reading Radiologist: Stephany [...] styloid process, which can be seen in H[place]ai syndrome. The visualized portions of the paranasal [...] styloid process, which can be seen in H[place]upai syndrome. The visualized portions of the paranasal [...] PM CDT) athologist Signature CASTAÑEDA TUBE Stored [facility] Comment: Castañeda top (Sodium flouride) tube s are stored in the lab for 3 days from the collection date. Specimen Anatomical Collection Method Collection Time Receive d Time (Source) Location / / Volume Laterality Blood 06/15/2022 7:20 PM 09/11/202 2 7:31 CDT PM CDT Kingston Castañeda MD LABORATORY Performing Organization Address City/[facility]/ZIP Code Phon e Number [facility] [place] [address] EXTRA TUBE - SST (06/15/2022 7:20 PM CDT) athologist Signature SST TUBE Stored [facility] Comment: SST tubes (Serum Separator) are stored in the lab for 3 days from the collection date. Specimen Anatomical Collection Method Collection Time Receive d Time (Source) Location / / Volume Laterality Blood 06/15/2022 7:20 PM 2 7:31 CDT PM CDT Kingston Castañeda MD LABORATORY Performing Organization Address [facility] Code Phon e Number [facility] [place] [address] HS TROPONIN (06/15/2022 7:20 PM CDT) athologist Signature HS Troponin I 4 <=34 ng/L [facility] Specimen Anatomical Collection Method Collection Time Receive d Time (Source) Location / / Volume Laterality Blood 06/15/2022 7:20 PM 2 7:41 CDT PM CDT Narrative [facility] - 06/15/2022 8:11 PM CDT First Occurrence of the Troponin order i s to be drawn Stat by Nursing staff on the unit. Gideon Dyer MD LABORATORY Performing Organization Address [facility]/ZIP Code Phon e Number [facility] [place] [address] (ABNORMAL) PTT (APTT) (06/15/2022 7:20 PM CDT) athologist Signature APTT 21.4 (L) 25.0 - 37.0 [facility] sec Specimen Anatomical Collection Method Collection Time Receive d Time (Source) Location / / Volume Laterality Blood 06/15/2022 7:20 PM 2 7:41 CDT PM CDT Gideon Dyer MD LABORATORY Performing Organization Address City/[facility]/ZIP Code Phon e Number [facility] [place] [address] PROTHROMBIN (PT) & INR (06/15/2022 7:20 PM CDT) P athologist Signature PT 11.9 9.0 - 12.5 [facility] sec INR 1.0 0.8 - 1.1 [facility] Specimen Anatomical Collection Method Collection Time Receive d Time (Source) Location / / Volume Laterality Blood 06/15/2022 7:20 PM 7:41 CDT PM CDT Gideon Dyer MD LABORATORY Performing Organization Address [facility] Code Phon e Number [facility] [place] [address] [place] [address] COVID-19 SURVEILLANCE (06/15/2022 7:20 PM CDT) Patholo gist Method Time Signature COVID-19 Not Detected Not Detected [facility] Comment: This test was developed and its performa nce characteristics determined by [facility] Campaign [employer]. This testing, RT-PCR, has been authorized by the FDA under an Emergency Use Authorization (EUA ) for Coronavirus Disease-2019 during [facility]. This test has been [...] 06/15 PM CDT 7:32 PM CDT Narrative [facility] - 06/15/2022 8:08 PM CDT Preferred specimen is Nasopharyngeal swab Is the patient a healthcare employee: No Is the patient a [employer] ([facility] Employee : No Gideon Dyer MD LABORATORY Performing Organization Address City/State/ZIP Code Phon e Number [facility] [place] [address] PRECAUTIONARY TUBE (06/15/2022 7:20 PM CDT) [facility] Method Time Signature Prec Tube Precautionary [facility] Blood Bank Specimen Received. Specimen Anatomical Collection Method Collection Time Receive d Time (Source) Location / / Volume Laterality Blood 06/15/2022 7:20 PM 2 7:43 CDT PM CDT Gideon Dyer MD LAB TRANSFUSION SERVICES Performing Organization Address City/State/ZIP Code Phon e Number [facility] [place] [address] LACTATE (LACTIC ACID) (06/15/2022 7:20 PM CDT) athologist Signature Lactate 1.4 0.7 - 2.1 [facility] mmol/L Specimen Anatomical Collection Method Collection Time Receive d Time (Source) Location / / Volume Laterality Blood 06/15/2022 7:20 PM 2 7:30 CDT PM CDT Narrative [facility] - 06/15/2022 7:30 PM CDT Send specimen on ice! Gideon Dyer MD LABORATORY Performing Organization Address City/State/ZIP Code Phon e Number [facility] [place] [address] (ABNORMAL) FIBRINOGEN (06/15/2022 7:20 PM CDT) athologist Signature Fibrinogen 199 (L) 200 - 400 [facility] mg/dL Specimen Anatomical Collection Method Collection Time Receive d Time (Source) Location / / Volume Laterality Blood 06/15/2022 7:20 PM 2 7:41 CDT PM CDT Gideon Dyer MD LABORATORY Performing Organization Address City/State/ZIP Code Phon e Number [facility] [place] [address] ED HEMOGLOBIN TOTAL (ED ONLY) (06/15/2022 7:20 PM CDT) athologist Signature Hgb 13.7 13.1 - 17.5 [facility] g/dL Specimen Anatomical Collection Method Collection Time Receive d Time (Source) Location / / Volume Laterality Blood 06/15/2022 7:20 PM 2 7:30 CDT PM CDT Gideon Dyer MD LABORATORY Performing Organization Address [facility] Code Phon e Number [facility] [place] [address] (ABNORMAL) ED CHEMISTRY LABS(NA,K,CL,CO2,GLU,CREAT,CA-IONIZED,ANION GAP) (06/15/2022 7:20 PM CDT) Analysis Performed At [facility] logist Time Signature Sodium 140 135 - 148 [facility] mEq/L Chloride 109 (H) 92 - 108 [facility] mEq/L AnGap 8 8 - 16 [facility] mEq/L Glucose 186 (H) 70 - 100 [facility] mg/dL ICA, Actual 4.44 4.40 - [facility] 5.20 mg/dL ICA, pH 4.28 (L) 4.40 - [facility] Corrected 5.20 mg/dL Creatinine 1.00 0.70 - [facility] 1.25 mg/dL BICARB 24 22 - 26 [facility] mEq/L eGFR, High 105 >=60 [facility] ml/min/1.7 3m2 Comment: Calculated using CKD-EPI equati on eGFR, Low 90 >=60 ml/min/1.73m2 [facility] Comment: Calculated using CKD-EPI equati on Potassium 3.6 3.5 - 5.3 mEq/L [facility] Specimen Anatomical Collection Method Collection Time Receive d Time (Source) Location / / Volume Laterality Blood 06/15/2022 7:20 PM 2 7:30 CDT PM CDT Gideon Dyer MD LABORATORY Performing Organization Address City/State/ZIP Code Phon e Number [facility] [place] [address] (ABNORMAL) CBC WITH PLTS/AUTO DIFF (06/15/2022 7:20 PM CDT) [facility] gist Method Time Signature WBC 14.21 (H) 4.00 - [facility] 10.00 k/cmm RBC 4.65 4.60 - [facility] 6.00 m/cmm Hgb 13.0 (L) 13.1 - [facility] 17.5 g/dL Hematocrit 39.7 (L) 40.0 - [facility] 51.0 % MCV 85.4 80.0 - [facility] 100.0 fL MCH 28.0 25.0 - [facility] 32.0 pg MCHC 32.7 31.0 - [facility] 36.0 g/dL RDW 13.2 11.5 - [facility] 14.5 % Plt 294 150 - 400 [facility] k/cmm MPV 10.6 6.5 - 12.5 [facility] fL Automated Abs 10.31 (H) 1.70 - [facility] Neutrophil 6.50 k/cmm Comment: Preliminary ANC, Final Result t o Follow Abs Immature Granulocyte 0.26 (H) 0.00 - 0.09 k/cmm [facility] Comment: The Immature Granulocyte Absolu te count contains metamyelocytes and myelocytes. Abs Neutrophil 10.31 (H) 1.70 - 6.50 k/cmm [facility] B Abs Lymphocyte 2.74 0.80 - 4.00 k/cmm [facility] B Abs Monocyte 0.67 0.20 - 1.00 k/cmm [facility] Abs Eosinophil 0.20 0.00 - 0.60 k/cmm [facility] B Abs Basophil 0.03 0.00 - 0.20 k/cmm [facility] Specimen Anatomical Collection Method Collection Time Receive d Time (Source) Location / / Volume Laterality Blood 06/15/2022 7:20 PM 7:41 CDT PM CDT Gideon Dyer MD LABORATORY Performing Organization Address City/State/ZIP Code Phon e Number [facility] [place] [address] BLOOD GASES (06/15/2022 7:20 PM CDT) P athologist Signature PH Anish 7.33 7.32 - 7.42 [facility] PCO2 Anish 46 41 - 51 [facility] mmHG PO2 Anish 35 25 - 40 [facility] mmHG Bicarb Anish 24 24 - 28 [facility] mEq/L O2 Sat Anish 62 % [facility] Base Exc Anish -2.9 -10.0 - 2.0 [facility] mEq/L Specimen Anatomical Collection Method Collection Time Receive d Time (Source) Location / / Volume Laterality Blood Venous 06/15/2022 7:20 PM 7:30 CDT PM CDT Giedon Dyer MD LABORATORY Performing Organization Address City/State/ZIP Code Phon e Number [facility] [place] [address] [place] [address] [place] [address] ED US CRITICAL CARE (06/15/2022 7:16 PM [...] Thu06/26/22 at 1546, Until Thu06/27/22 at 2104 diatrizoate meglumine Given 06/16/2022 11:10 [...] CONTINUOUS, Starting on Thu06/19/22 at 0625, Until Thu06/22/22 at 2359 Infusing 06/22/2022 8:00 AM CDT [...] 92.4 kg), Intravenous, Q6H PRN, Starting on Thu06/19/22 at 0558, Until Thu06/24/22 at 0622, For [...] hollis RN)1350 (Given - Provider: Vargas Whitman RN)2036 (Given [...] Vargas Whitman RN)1946 (Given - Provider: Elva Adamson, RASHEL) 826 (Given - Provider: Vargas hollis RN)1350 (Given - Provider: Vargas Whitman RN)2036 (Given [...] 0442 (Gi anish - Provider: Natalia Romero, RN)0935 (Given - Provider: Vargas Whitman RN)1356 (Given - Provider: Vargas Whitman RN)2152 (Given - Provider: Elva Adamson RN) 0250 (Given - Provider: Shanice Nieves RN)0957 (Given - Provider: Vragas Whitman RN)1352 (Given - Provider: Vargas Whitman [...] Roger Fall RN)0936 (Given - Provider: Vargas Whitman, RASHEL)1355 [...]
--- OUTSIDE RECORDS SUMMARY | 2022-07-20 06:58 | XMS_ITS | Encounter Summary ---
:1975 Author Organization [facility] Address [address] [facility] [place] [address] Phone Care Team Providers Name Role Phone Lore Au PT Unavailable Encounter Details Date Type Department Care Team Description 06/24/2022 Documentation Only [facility] Video Editor Video Editor, Services Services [address] [place] [address] Social History Tobacco Use Types Packs/Day Years [...] RADIOLOGY Roosevelt Brown MD [address] [place] [address] Scheduled 1, [facility] [address] [place] [address] 07/22/2022 Office Visit ORTHOPEDICS Miri Matthew MD [address] [place], [place] [address] Scheduled 1, [facility] [address] [place] [address] 07/22/2022 Office Visit Interventional Radiology Provider, Int Ra d 1, [facility] [address] [place] [address] 07/25/2022 Appointment RADIOLOGY Patrice Hollins MD [address] [address] Scheduled 1, [facility] [address] [place] [address] 07/25/2022 Office Visit NEUROSURGERY Briana Kaplan PA -C [address] [place] [address] Scheduled 1, [facility] [address] [place] [address] 07/25/2022 Appointment PHYSICAL MEDICINE AND REHAB Lore Aguilar, PT Scheduled [address] [place] [phone] (Wo rk) 08/05/2022 Appointment ORTHOPEDICS 1, [facility] [place] Scheduled 1 [place] [address] 08/05/2022 Appointment RADIOLOGY Roosevelt Brown MD [address] [place] [address] Scheduled 1, [facility] [address] [place] [address] 08/05/2022 Appointment RADIOLOGY Roosevelt Brown MD [address] [place] [address] Scheduled 1, [facility] [address] [place] [address] 08/05/2022 Office Visit ORTHOPEDICS Roosevelt Brown MD [address] [place] [address] Scheduled 1, [facility] [address] [place] [address] documented as of this encounter Visit Diagnoses Not on filedocumented in this encounter Care Teams Washer Off Relationship Specialty Start Date End Date Lore Au, PT Physical Therapist Physical Therapy 07/09/22 [address] [place] [address] documented as of this encounter
--- OUTSIDE RECORDS SUMMARY | 2022-07-20 06:59 | XMS_ITS | Encounter Summary ---
:1975 Author Organization [facility] Address [address] [place] [address] Phone Care Team Providers Name Role Phone [...] RADIOLOGY Roosevelt Brown MD [address] [place] [address] Scheduled 1, [facility] [address] [place] [address] 07/22/2022 Office Visit ORTHOPEDICS Miri Matthew MD 701 [place], [place] 6769[address] Scheduled 1, [facility] [address] [place] [address] 07/22/2022 Office Visit Interventional Radiology Provider, Int Ra d 1, [facility] [address] [place] [address] 07/25/2022 Appointment RADIOLOGY Patrice Hollins MD [address] [address] Scheduled 1, [facility] [address] [place] [address] 07/25/2022 Office Visit NEUROSURGERY Briana Kaplan PA -C [address] [place] [address] Scheduled 1, [facility] [address] [place] [address] 07/25/2022 Appointment PHYSICAL MEDICINE AND REHAB Lore Aguilar PT Scheduled [address] [place] [address] (Wo rk) 08/05/2022 Appointment ORTHOPEDICS 1, [facility] Scheduled 701 [place] [address] 08/05/2022 Appointment RADIOLOGY Roosevelt Brown MD [address] [place] [address] Scheduled 1, [facility] [address] [place] [address] 08/05/2022 Appointment RADIOLOGY Roosevelt Brown MD [address] [place] [address] Scheduled 1, [facility] [address] [place] [address] 08/05/2022 Office Visit ORTHOPEDICS Roosevelt Brown MD [address] [place] [address] Scheduled 1, [facility] [address] [place] [address] documented as of this encounter Procedures Procedure [...] on filedocumented in this encounter Care Teams Student Services Director Relationship Specialty Start Date End Date Lore Au, PT Physical Therapist Physical Therapy 07/09/22 [address] [place] [address] documented as of this encounter
--- OUTSIDE RECORDS SUMMARY | 2022-07-20 06:59 | XMS_ITS | Encounter Summary ---
:1975 Author Organization [facility] Address [address] [facility] [place] [address] Phone Care Team Providers Name Role Phone Unavailable Primary Care Provider Unavailable Reason for Visit Auth/Cert (Routine) Specialty Diagnoses / Procedures Referred By Contact Refer red To Contact SURGERY Diagnoses Fall, initial encounter Erasmo Gonzalez MD [address] [facility] 701 [place], [place] [address] [address]4.400 [place] [address] Phone: Fax: Referral ID Status Reason Start Date Expiration Date Visits Requ ested Visits Authorized [id number] 1 1 Encounter Details Date Type Department Care Team Description 06/24/2022 Anesthesia Event OR P4 Vish Aguirre MD [address] [place], [place] [id number] [facility] [address] [place] [address] P4.445 [place], [place] [address] Anesthesia Record Procedure Summary Procedure Name Responsible [...] and clear Preoxygenation: mask Device Device used: Callvine Supporting device: Blade size: 2 The patient [...] unchanged Performed by: Anesthesiologist: Vish Aguirre MD AIRCRAFT LINE ASSEMBLER: Shanti Kruse APRN, CRNA Other: [id number] CORTEZ CALDWELL [id number] Events: @[facility], [facility]([id number])@ Anesthesia Preprocedure Evaluation - Vish Aguirre MD [...] ROS comment: Rectal hematoma Hematologic/Onc (+) anemia, /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 OB Other Physical Exam Anesthesia Plan ASA 2 general (GETA) intravenous induction Maintenance: Balanced Post-op Care: routine analgesia A communications equipment operator was used. Anesthetic plan and risks discussed with patient. The use of blood products has been discussed with the patient, and consented by patient. Plan discussed with AIRCRAFT LINE ASSEMBLER. Vitals: 06/24/22 0720 BP: 130/82 Pulse: 94 [...] RADIOLOGY Roosevelt Brown MD [address] [place] [address] Scheduled 1, [facility] [address] [place] [address] 07/22/2022 Office Visit ORTHOPEDICS Miri Matthew MD [address] [place] [address] Scheduled 1, [facility] [address] [place] [address] 07/22/2022 Office Visit Interventional Radiology Provider, Int Ra d 1, [facility] [address] [place] [address] 07/25/2022 Appointment RADIOLOGY Patrice Hollins MD [address] [phone] Scheduled 1, [facility] [address] [place] [address] 07/25/2022 Office Visit NEUROSURGERY Briana Kaplan PA -C [address] [place] [address] Scheduled 1, [facility] [address] [place] [address] 07/25/2022 Appointment PHYSICAL MEDICINE AND REHAB Lore Aguilar, PT Scheduled [address] [place], [place] 570[address] (Wo rk) 08/05/2022 Appointment ORTHOPEDICS 1, [facility] Scheduled 1 [place] [address] 08/05/2022 Appointment RADIOLOGY Roosevelt Brown MD [address] [place] [address] Scheduled 1, [facility] 701 [place] [address] 08/05/2022 Appointment RADIOLOGY Roosevelt Brown MD [address] [place] [address] Scheduled 1, [facility] [address] [place] [address] 08/05/2022 Office Visit ORTHOPEDICS Roosevelt Brown MD [address] [place] [address] Scheduled 1, [facility] [address] [place] [address] documented as of this encounter Procedures Procedure [...] and clear Preoxygenation: mask Device Device used: Callvine Supporting device: ?? Blade size: 2 The [...] unchanged Performed by: Anesthesiologist: Vish Aguirre MD AIRCRAFT LINE ASSEMBLER: Shanti Kruse APRN, CRNA Other: ?? [id number] CORTEZ CALDWELL [id number] Events: @[facility], [facility]([id number])@ Vish Aguirre MD PROCEDURES documented in this [...]
--- OUTSIDE RECORDS SUMMARY | 2022-07-20 06:59 | XMS_ITS | Encounter Summary ---
:1975 Author Organization [facility] Address [address] [place] [address] Phone Care Team Providers Name Role Phone [...] RADIOLOGY Roosevelt Brown MD [address] [place] [address] Scheduled 1, [facility] [address] [place] [address] 07/22/2022 Office Visit ORTHOPEDICS Miri Matthew MD 701 [place], [place] [address] Scheduled 1, [facility] [address] [place] [address] 07/22/2022 Office Visit Interventional Radiology Provider, Int Ra d 1, [facility] [address] [place] [address] 07/25/2022 Appointment RADIOLOGY Patrice Hollins MD [address] [address] Scheduled 1, [facility] [address] [place] [address] 07/25/2022 Office Visit NEUROSURGERY Briana Kaplan PA -C [address] [place] [address] Scheduled 1, [facility] [address] [place] [address] 07/25/2022 Appointment PHYSICAL MEDICINE AND REHAB Lore Aguilar PT Scheduled [address] [place] [address] (Wo rk) 08/05/2022 Appointment ORTHOPEDICS 1, [facility] Scheduled [address] [place] [address] 08/05/2022 Appointment RADIOLOGY Roosevelt Brown MD [address] [place] [address] Scheduled 1, [facility] [address] [place] [address] 08/05/2022 Appointment RADIOLOGY Roosevelt Brown MD [address] [place] [address] Scheduled 1, [facility] [address] [place] [address] 08/05/2022 Office Visit ORTHOPEDICS Roosevelt Brown MD [address] [place] [address] Scheduled 1, [facility] [address] [place] [address] documented as of this encounter Procedures Procedure [...] on filedocumented in this encounter Care Teams Landfill Gas Collection Operator Relationship Specialty Start Date End Date Lore Au, PT Physical Therapist Physical Therapy 07/09/22 [address] [place] [address] documented as of this encounter
--- OUTSIDE RECORDS SUMMARY | 2022-07-20 06:59 | XMS_ITS | Encounter Summary ---
:1975 Author Organization [facility] Address [address] [place] [address] Phone Care Team Providers Name Role Phone [...] RADIOLOGY Roosevelt Brown MD [address] [place] [address] Scheduled 1, [facility] [address] [place] [address] 07/22/2022 Office Visit ORTHOPEDICS Miri Matthew MD 701 [place], [place] [address] Scheduled 1, [facility] [address] [place] [address] 07/22/2022 Office Visit Interventional Radiology Provider, Int Ra d 1, [facility] [address] [place] [address] 07/25/2022 Appointment RADIOLOGY Patrice Hollins MD [address] [address] Scheduled 1, [facility] [address] [place] [address] 07/25/2022 Office Visit NEUROSURGERY Briana Kaplan PA -C [address] [place] [address] Scheduled 1, [facility] [address] [place] [address] 07/25/2022 Appointment PHYSICAL MEDICINE AND REHAB Lore Aguilar PT Scheduled [address] [place] [address] (Wo rk) 08/05/2022 Appointment ORTHOPEDICS 1, [facility] Scheduled 701 [place] [address] 08/05/2022 Appointment RADIOLOGY Roosevelt Brown MD [address] [place] [address] Scheduled 1, [facility] [address] [place] [address] 08/05/2022 Appointment RADIOLOGY Roosevelt Brown MD [address] [place] [address] Scheduled 1, [facility] [address] [place] [address] 08/05/2022 Office Visit ORTHOPEDICS Roosevelt Brown MD [address] [place] [address] Scheduled 1, [facility] [address] [place] [address] documented as of this encounter Procedures Procedure [...] on filedocumented in this encounter Care Teams Transportation Solutions Manager Relationship Specialty Start Date End Date Lore Au, PT Physical Therapist Physical Therapy 07/09/22 [address] [place] [address] documented as of this encounter
--- OUTSIDE RECORDS SUMMARY | 2022-07-20 06:59 | XMS_ITS | Encounter Summary ---
:1975 Author Organization [facility] Address [address] [place] [address] Phone Care Team Providers Name Role Phone [...] RADIOLOGY Roosevelt Brown MD [address] [place] [address] Scheduled 1, [facility] 701 [place] [address] 07/22/2022 Office Visit ORTHOPEDICS Miri Matthew MD 701 [place], [place] [address] Scheduled 1, [facility] 701 [place] [address] 07/22/2022 Office Visit Interventional Radiology Provider, Int Ra d 1, [facility] [address] [place] [address] 07/25/2022 Appointment RADIOLOGY Patrice Hollins MD [address] [address] Scheduled 1, [facility] [address] [place] [address] 07/25/2022 Office Visit NEUROSURGERY Briana Kaplan PA -C [address] [place] [address] Scheduled 1, [facility] [address] [place] [address] 07/25/2022 Appointment PHYSICAL MEDICINE AND REHAB Lore Aguilar PT Scheduled [address] [place] [address] (Wo rk) 08/05/2022 Appointment ORTHOPEDICS 1, [facility] Scheduled 701 [place] [address] 08/05/2022 Appointment RADIOLOGY Roosevelt Brown MD [address] [place] [address] Scheduled 1, [facility] [address] [place] [address] 08/05/2022 Appointment RADIOLOGY Roosevelt Brown MD [address] [place] [address] Scheduled 1, [facility] [address] [place] [address] 08/05/2022 Office Visit ORTHOPEDICS Roosevelt Brown MD [address] [place] [address] Scheduled 1, [facility] [address] [place] [address] documented as of this encounter Procedures Procedure [...] on filedocumented in this encounter Care Teams Carton Waxing Machine Operator Relationship Specialty Start Date End Date Lore Au, PT Physical Therapist Physical Therapy 07/09/22 [address] [place] [address] documented as of this encounter
--- OUTSIDE RECORDS SUMMARY | 2022-07-20 06:59 | XMS_ITS | Encounter Summary ---
:1975 Author Organization [facility] Address [address] [place] [address] Phone Care Team Providers Name Role Phone Unavailable Primary Care Provider Unavailable Reason for Visit Reason Comments Fall Auth/Cert (Routine) Specialty Diagnoses / Procedures Referred By Contact Refer red To Contact SURGERY Diagnoses Fall, initial encounter Erasmo Gonzalez MD [address] [facility] [address] [place], [place] [address] [address] [place] [address] Phone: Fax: Referral ID Status Reason Start Date Expiration Date Visits Requ ested Visits Authorized [id number] 1 1 Encounter Details Date Type Department Care Team Description 06/24/2022 Surgery OR P4 Roosevelt Brown OPEN REDUCTION INTERNAL 701 Nia Ravi MD FIXATION RIGHT SI JOINT P4.[address] [place], [place] [address] [place], [place] [phone] [id number] Social History Tobacco Use Types Packs/Day Years [...] No focal deficits appreciated on gross examination Egg Producer Needed: yes- Montserratian [35] PLANNED DISCHARGE ORDERS: Suture/Paulette: Location right [...] address): ___ Patient Address: C/o Shawnee Bolivar [address] [place] [id number] Question Response Notes Effective date for equipment/supply 06/25/2022 Medical necessity for order (qualifying diagnosis) sacral fracture, right acetabular fracture, T12 compression fracture, right distal radius fracture Length of time equipment/supply needed 12 months Monthly quantity . Vendor Information [employer]; ph: [phone], fx: [phone] XR SPINE THORACOLUMBAR 2 VIEW Question Response [...] Yes Antitippers Yes Vendor Information [employer]; ph: [phone], fx: [phone] DME JUSTIFICATION OF NEED FOR EXTENDED TUB [...] PLEASE CALL the Patient Access Center at [phone] to schedule the following appointment(s) Question Response Notes Specify time frame 1 Month Reason for Visit? Evaluate need for continued IVC Filtration Provider Type? Any available Provider Clinic [facility] Specialty: Interventional Radiology Schedule Appointment - [facility] Ortho Cl Order Notes PLEASE CALL the Patient Access Center at [phone] to schedule the following appointment(s) Question Response Notes Specify time frame 2 Weeks Reason for Visit? Post op follow up, hospitalization. S/p ORIF right SI joint Provider Type? Any available Provider Clinic Location? [facility] [place]: Orthopedics Schedule Appointment in Neurosurgery- [facility] Clinic Order Notes Schedule Appointment in Neurosurgery Clinic - [facility] Neurosurgery Clinic Direct Line: [phone] [place] [address] Clinic Hours: 8 AM - 4:30 PM M-F Question Response Notes Specify time frame 6 Weeks Reason for Visit? Follow up T12 and lumbar fractures Provider Type? [facility] Clinic Location? [facility] Specialty: Neurosurgery Imaging? Yes UR XR prior [...] your doctor [facility] the [facility] When should I be concerned? Order [...] 4 PM): Call the Radiology department at [phone] After hours or on Holidays: Call the [facility] blow mold machine operator . Ask the blow mold machine operator to page the Interventional Radiologist net front end developer. IF: -- hives or new itching the [...] you can dry it with a hair sample matcher set to cool/warm; call the Orthopaedic Clinic at [phone] if the cast remains soft. -- Cover [...] you can dry it with a hair sample matcher set to cool/warm; call the Orthopaedic Clinic at [phone] if the cast remains soft. -- Cover [...] -- Read all labels for prescription and Fnus-skw-jhggkaq medicines. Ask the pharmacist if your prescription [...] taking these medications acetaminophen 325 mg tablet [place] 3 tabletas (975 mg) por la boca [...] (5 mg) by mouth 3 times daily. [place] 1 tableta (5 mg) por la boca [...] (400 mg) by mouth 3 times daily. [place] 1 capsula (400 mg) por la boca 3 veces al porsche. hydrOXYzine pamoate 25 mg capsule Commonly known as: VISTARIL Take 1-2 capsules (25-50 mg) by mouth every 4 hours as needed (pain adjunct (give with opioid)).[place] 1-2 c??psulas (25-50 mg) por v??a oral cada 4 horas seg??n sea necesario (complemento para el dolor (administrar con opioide)). melatonin 3 mg tablet Take 1 tablet (3 mg) by mouth at bedtime as needed for Sleep. [place] 1 tableta (3 mg) por la boca a lahora de acostrase. oxyCODONE 5 mg tablet Commonly known as: ROXICODONE [place] 1 tableta (5 mg) por la boca cada 4 horas rock sea necesario para el dolor. (Take 1 tablet (5 mg) by mouth every 4 hours as needed for Pain.) polyethylene glycol 3350 17 gm/scoop powder Commonly known as: MIRALAX/GLUCOLAX Take 17 g by mouth twice daily.Take 1 capful to 17 gm cuate mixed with full glass of water twice every day as directed.[place] 17 g por v??a oral dos veces al d??a. [place] 1 tap??n hasta la minerva de 17 g mezclado con un vaso lleno de agua dos veces al d??a seg??n las indicaciones. * Xarelto 15 mg tablet Generic drug: rivaroxaban Take 1 tablet (15 mg) by mouth twice daily with meals for 21 days. Indications: Blood Clot in a DeepVein. [place] 1 tableta (15 mg) por v??a oral dos veces al d??a con las comidas jennifer 21 d??as. 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 Start taking on: June 29, 2022 * rivaroxaban 20 mg tablet Commonly known as: XARELTO Take 1 tablet (20 mg) by mouth daily with evening meal. Indications: Blood Clot in a Deep Vein.([place] 1 tableta (20 mg) por v??a oral diariamente con la evonne. 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 [place] 1 tableta por la boca 2 veces al porsche. sodium chloride 1 gm Tabs Take 2 tablets (2 g) by mouth 4 times daily. TOME DOS TABLETAS ORALMENTE 4 VECES AL PORSCHE tamsulosin 0.4 mg Capsule Commonly known as: FLOMAX Take 1 capsule (0.4 mg) by mouth daily after meal.Take 30 minutes after same meal each day. Do NOT crush or chew.[place] 1 c??psula (0,4 mg) por v??a oral todos los d??as despu??s de ethan comida. [place] 30 minutos despu??s de la misma comida [...] Your Medications These medications were sent to [facility] Discharge Pharmacy - [place] [address] Hours: 27/04 acetaminophen 325 mg tablet bisacodyl [...] me are documented. Patrice Hollins M.D., F.A.C.S. [facility] Department of Surgery documented in this encounter [...] Self Cares with a TLSO A TLSO (Tmzokku-Cvetl-Fnuqgq-Orthosis) is a brace designed to immobilize your [...] determine what you need) Extended tub bench Lot Boss Long Handled Sponge Raised Toilet Seat with arms Remember : - No weight on your right arm/hand, no pulling and no pushing with right hand. - No weight on right leg - Pivot transfer ONLY on left leg - No walking - Slow down, think before moving Discharge Instr - Speech Language PathologyTheodora Serrano OTR/L - 06/27/2022 8:50 AM CDT {PLATINUM SMITH Discharge Instructions:[id number]} AttachmentsThe following attachments cannot be sent through Care Everywhere.Cast Care (Montserratian)Forearm and Wrist Fractures ED (Montserratian)Forearm Fracture Discharge Instructions (Montserratian)Radius Fracture (Montserratian)Radius Fracture Discharge Instructions (Montserratian)Pelvic Fracture Discharge Instructions (Montserratian) Pelvic Fracture (Montserratian)Fractures (Montserratian)General Trauma Discharge Instructions (Montserratian)Type 2 Diabetes Discharge Instructions (Montserratian)documented in this encounter Medications at Time of Discharge Medication Sig Dispensed Refills Start Date End Date acetaminophen 325 mg Take 3 tablets (975 120 tablet 0 2021 oral tablet mg) by mouth 3 times daily. hydrOXYzine pamoate Take 1-2 capsules 120 capsule 0 06/26/20 (VISTARIL) 25 mg oral (25-50 mg) by mouth capsule every 4 hours as needed (pain adjunct (give with opioid)).[place] 1-2 c??psulas (25-50 mg) por v??a oral [...] oral by mouth 3 times TABS daily. [place] 1 tableta (5 mg) por la boca 3 veces al porsche. polyethylene glycol Take 17 g by mouth 510 g 0 06/26/20 3350 twice daily.Take 1 (MIRALAX/GLUCOLAX) 17 capful to 17 gm gm/scoop oral powder cuate mixed with full glass of water twice every day as directed.[place] 17 g por v??a oral dos veces al d??a. [place] 1 tap??n hasta la minerva de 17 g mezclado con un vaso lleno de agua dos veces al d??a seg??n las indicaciones. sennosides-docusate Take 1 tablet by 40 each 0 06/26/2022 sodium (STOOL mouth twice daily. SOFTENER/LAXATIVE) [place] 1 tableta por 8.6-50 mg oral tablet la boca 2 veces al porsche. GABApentin (NEURONTIN) Take 1 capsule (400 120 capsule 0 400 mg oral capsule mg) by mouth 3 times daily. [place] 1 capsula (400 mg) por la boca 3 veces al porsche. tamsulosin (FLOMAX) Take 1 capsule (0.4 10 capsule 0 022 0.4 mg oral capsule mg) by mouth daily after meal.Take 30 minutes after same meal each day. Do NOT crush or chew.[place] 1 c??psula (0,4 mg) por v??a oral todos los d??as despu??s de ethan comida. [place] 30 minutos despu??s de la misma comida todos los d??as. No triture ni mastique. melatonin 3 mg oral Take 1 tablet (3 mg) 20 tablet 0 2021 tablet by mouth at bedtime as needed for Sleep. [place] 1 tableta (3 mg) por la boca [...] Thrombosis Indications: Blood Clot in a Deep Vein.([place] 1 tableta (20 mg) por v??a oral diariamente con la electronics maintenance technician. 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 rivaroxaban (XARELTO) Take 1 tablet (15 42 tablet 0 022 07/20/2022 15 mg oral mg) by mouth twice tabletIndications: daily with meals for Deep Vein Thrombosis 21 days. Indications: Blood Clot in a Deep Vein. [place] 1 tableta (15 mg) por v??a oral [...] w/ Precautions?: Yes (with some occasional reminders) Egg Producer Used: No, certified bilingual staff SUBJECTIVE: Cooperative [...] assisting with supervision and 1-2 tips from handbook writer Upper Body Dressing Techniques & Equipment: [...] Functional activity: 15 minutes CLAUDIO Cordero Pager: [facility] OT Department Neal Phillips, GARMENT MANUFACTURER - 06/27/2022 9:42 AM CDT Problem: Decreased Transfer Skills Goal: Patient will transfer supine to/from sit Description: Patient will transfer supine to/from sit with (6) Modified [place] in the TLSO w/othe use of his [...] (Numeric): 4 (improved) Participation Significantly Limited?: No O:Egg Producer Used: Yes, [facility] fisher mussel Mental Status Mental Status: Alert;Cooperative;Follows 3 step [...] own equipment. Neal Phillips PTA 06/27/2022 Pager: [facility] PT Dept Joce Villareal MD - 06/27/2022 [...] - ok for L LE pivot transfer) Egg Producer Used: No, certified bilingual staff SUBJECTIVE: Cooperative [...] assisting with supervision and 1-2 tips from handbook writer Lower Body Dressing: Maximal assist (25% [...] Functional Activity 15 minutes JACKELIN Cordero/Kira Pager: [facility] OT Department Patrice Hollins MD - 06/26/2022 [...] vital signs normal. Euvolemic on exam. Asymptomatic. Kdanhagw2R LR post procedurally 06/24. Has not received [...] Hollins MD, 06/30/2022 9:13 AM Neal Phillips, GARMENT MANUFACTURER - 06/26/2022 9:03 AM CDT Problem: Decreased Transfer Skills Goal: Patient will transfer supine to/from sit Description: Patient will transfer supine to/from sit with (6) Modified [place] in the TLSO w/othe use of his [...] (Numeric): 4 (improved) Participation Significantly Limited?: No O:Egg Producer Used: Yes, [facility] fisher mussel Mental Status Mental Status: Alert;Cooperative;Follows 3 step [...] set-up and management. Increase tolerance for sitting. GARMENT MANUFACTURER Appropriate: Yes Neal Phillips, SKYLER 06/26/2022 Pager: [facility] PT Dept Chintan Valadez MD - 06/26/2022 [...] (assisted with transferring pt back to bed) O:Egg Producer Used: Yes, [facility] fisher mussel Mental Status Mental Status: Alert;Cooperative;Follows 3 step [...] by PT. She also assisted pt with nodffq-wj-ufh transfer. Pt required just standby assist for [...] with assisting with wheelchair set-up and management. GARMENT MANUFACTURER Appropriate: Yes Alize Stevens, PT 06/25/2022 Pager: Luis PT Dept Problem: Decreased Transfer Skills Goal: Patient will transfer supine to/from sit Description: Patient will transfer supine to/from sit with (6) Modified [place] in the TLSO w/othe use of his [...] be able to roll with (6) Modified [place] using log roll technique w/o the use [...] - ok for L LE pivot transfer) Egg Producer Used: No, certified bilingual staff SUBJECTIVE: Cooperative [...] assisting with supervision and 1-2 tips from handbook writer Lower Body Dressing: Maximal assist (25% [...] about 30 minutes prior to arrival) O: Egg Producer Used: No, certified bilingual staff Name or Reference Number (phone): [id number] Mental Status Mental Status: Alert;Cooperative;Follows 1 step [...] OR and requesting PT assist [facility] to [facility] Clinical Coordinator: Notified recommending 16 WC with ELR, removeable armrests, anti-tippers and cushion Family: and daughter present, educated regarding WC size considerations and equipment recs for 16 WC with B ELR and removable armrests Fall Risk Assessment: None of the above Positioning: Pt transferred to [facility] in prep for surgery at end of [...] have family re-demo WC part management . GARMENT MANUFACTURER Appropriate: Yes Charlene Lindo, PT 06/24/2022 Pager: Luis PT Dept Problem: Decreased Transfer Skills Goal: Patient will roll Description: Patient will be able to roll with (6) Modified [place] using log roll technique w/o the use of his RUE while maintaining both spinal and WB restrictions in order to demonstrate improved function and D/C by 06/28. Outcome: In progress Goal: Patient will transfer supine to/from sit Description: Patient will transfer supine to/from sit with (6) Modified [place] in the TLSO w/othe use of his [...] - ok for L LE pivot transfer) Egg Producer Used: No, certified bilingual staff SUBJECTIVE: Cooperative [...] assisting with supervision and 1-2 tips from handbook writer Upper Body Dressing Techniques & Equipment: [...] is only present while pushing against something. [place] nauseous upon waking, dry heaved. Able to [...] me are documented. Patrice Hollins M.D., F.A.C.S. [facility] Department of Surgery Korin Garcia MD - [...] for OR today. Hopefully this afternoon or clinical scientist - Plan to convert right short arm [...] 06/23/2022 12:50 PM CDT Problem: Loss of [place] With ADLs, Risk for Goal: Patient-specific goals [...] push/pull/place weight in RUE- ok through elbow) Egg Producer Used: Yes, agency or phone fisher mussel ([facility] phone/video fisher mussel) SUBJECTIVE: I'm getting really warm. Can I [...] assisting with supervision and 1-2 tips from handbook writer Upper Body Dressing Techniques & Equipment: [...] care/Home mgmt/ADL: 30 minutes JACKELIN Fernandez/Kira Pager: [facility] Reshma Hackett OTR/Kira, 06/23/2022 4:09 [...] by me aredocumented. Patrice Hollins M.D., [place].S. [facility] Department of Surgery Linda Lei MD - [...] Steele CO - 06/20/2022 10:26 AM CDT [facility] Patient was seen to check fit of TLSO. Patient reports TLSO is fitting well with no reported discomfort. He and his were instructed on proper wear and care. Please call with any questions or concerns. Aman Pichardo DIAMOND DIE DRILLER Danette O&P [phone] Linda Au MD - 06/20/2022 5:36 AM [...] Per nursing report, patient was bladder scanned [id number] retained, so he underwent straight catheterization. He [...] IN NOTE D: Patient transferred in to [facility] from PACU at 1950. Patient condition on arrival: stable. Patient Belonging 06/16/2022 0110 Patient or family informed of Patient Valuables and Belongings Policy (#[id number]): Due to patient condition, [facility] staff will inventory and secure patient valuables [...] me are documented. Patrice Hollins M.D., Dyllan. [facility] Department of Surgery Alpesh Live MD - [...] None Transportation Used for Discharge: family will sampler pickup Safety Concerns: None Behavioral Health Concerns: None Primary Insurance: N/A Secondary Insurance: N/A PLAN Plan/Interventions Discharge Plan: Home Risks for Readmission: None SUMMARY Patient would like to DC home where could help. He is uninsured. He has received 3 doses of Covid vaccine manager leasing will continue to follow until DC Patrice [...] by me aredocumented. Patrice Hollins M.D., F.A.C.S. [facility] Department of Surgery Resident: Linda Au MD, [...] return to fit when able. Aman Mainorurow DIAMOND DIE DRILLER Juanklgeorgette O&P [phone] Narciso Steele CO - 06/16/2022 12:08 PM [...] today for fitting and delivery. Aman Thurow DIAMOND DIE DRILLER Winkley O&P [phone] Edna Ibrahim MDIV - 06/16/2022 9:36 AM CDT SPIRITUAL CARE VISIT SUMMARY Kesha Hill : 1975 Sex: male LOS: 0 days Reason for visit: Referral Assessment: Pt/family uncertain/anxious/frustrated Intervention: Engage theological concerns;Compassionate support;Facilitate communication;Lead/support spiritual rituals Outcome: Situation assessed;Gratitude expressed;Pt/family report increased sense of peace/spiritual well-being;Stress observed as lessened;Ritual provided Notes: Provided supportive presence for Montserratian speaking, [facility] pt (with use of air conditioner installer helper). Pt was in pain, and consented to healing touch being provided. He indicated that this practice assisted with his pain. Pt spoke about his recent move to [place], and how he likes it there, and likes living with his Gloria there. Pt was able to speak with the nurse about his pain, and communicate that to her. He welcomed prayer, which this provider offered in [place]ian. Edna has completed levels one and two of Healing Touch and level one of Reiki. This is an energy based, gentle (limited) touch healing modality, and this patient or patient's family consented to this practice. Plan: Spiritual Care Team is available to support patient and family as needed via pager [phone]. Edna Ibrahim MDIV, 06/16/2022 9:36 AM Pager: [phone] Oanh Moore MD - 06/16/2022 6:02 AM [...] elbow flex/ext. 5/5 wrist flex/ext. 5/5 hand porcelain mixer. LUE: 5/5 shoulder abduction. 5/5 elbow flex/ext. 5/5 wrist flex/ext. 5/5 hand porcelain mixer. Lower Extremities: RLE: 0/5 hip flexion. 0/5 [...] Narvaez MD - 06/16/2022 12:00 [place] [address] [facility]#: [id number] PATIENT: KESHA HILL : 1975 DATE DICTATED: 06/16/2022 SURGERY STAFF DAILY PROGRESS NOTE DATE OF SERVICE: 06/16/2022 I saw and evaluated the patient. I discussed management with residents, TIN TIE MACHINE OPERATOR AUTOMATIC, and PAs on the Neurosurgery team and [...] MD Staff Physician Neurosurgery Service Received in Kinesiology Professor: 06/16/2022 18:59:09 M: /[id number] TB/MODL Patrice Hollins MD - 06/15/2022 7:18 PM CDT Trauma Staff I was notified via the trauma pager at: [phone] I evaluated/examined this patient at: aRRIVAL The patient arrived at: 06/15/2022 7:15 PM I was pre-notified: Yes Switchboard. Trauma Level: Tier 2 Staff Summary (full note will be with the resident H&P): Fell from [facility], 30 ft. Will plan [...] file Social History Narrative Patient lives in [place], [place]. He is single and employed. Family [...] diagnostic studies, procedures and surgery) Admit to [place] [facility] Service Ortho Consult paged out at STAT. Neurosurgery consult paged out at 1945 Cardiac Monitoring Frequent neuro checks, CMS checks Incentive Spirometer Bedrest with C, T, & L spine precautions C-spine exam and possible clearance once final reads posted NPO until final reads on radiography Consult PLATINUM SMITH and keep strict NPO if PLATINUM SMITH consult not indicated at this time PT/OT [...] me are documented. Patrice Hollins M.D., F.A.C.S. [facility] Department of Surgery documented in this encounter [...] Hill at 1215 Patient transported back to [facility] via Bed. Accompanied by Tech [...] John Leon MD Orthopaedic Surgery, PGY3 Pager: [phone] documented in this encounter Consult Notes Sultana Nuñez, FernandoD - 06/26/2022 4:10 PM CDTAssociated Order(s): DISCHARGE MED REC FINAL REVIEW BY PHARMACY PHARMACY DISCHARGE NOTE Kesha Hill : 1975 Sex: male Pharmacy service was consulted for review of patient's discharge medications. Planned discharge medications are: Medication List Medications Indications acetaminophen 325 mg tablet [place] 3 tabletas (975 mg) por la boca [...] (5 mg) by mouth 3 times daily. [place] 1 tableta (5 mg) por la boca [...] (400 mg) by mouth 3 times daily. [place] 1 capsula (400 mg) por la boca 3 veces al porsche. glipiZIDE XL 10 mg extended release tablet Generic drug: glipiZIDE XL Take 1 tablet (10 mg) by mouth daily. Indications: Type 2 Diabetes Indications: Type 2 Diabetes hydrOXYzine pamoate 25 mg capsule Commonly known as: VISTARIL Take 1-2 capsules (25-50 mg) by mouth every 4 hours as needed (pain adjunct (give with opioid)).[place] 1-2 c??psulas (25-50 mg) por v??a oral cada 4 horas seg??n sea necesario (complemento para el dolor (administrar con opioide)). melatonin 3 mg tablet Take 1 tablet (3 mg) by mouth at bedtime as needed for Sleep. [place] 1 tableta (3 mg) por la boca a lahora de acostrase. metFORMIN 1000 mg tablet Commonly known as: GLUCOPHAGE Take 1 tablet (1,000 mg) by mouth twice daily with meals. Indications: Type 2 Diabetes Indications: Type 2 Diabetes oxyCODONE 5 mg tablet Commonly known as: ROXICODONE [place] 1 o 2 tabletas por la boca cada 4 horas rock sea necesario para el dolor. (Take 1-2 tablets (5-10 mg) by mouth every 4 hours as needed for Pain.) polyethylene glycol 3350 17 gm/scoop powder Commonly known as: MIRALAX/GLUCOLAX Take 17 g by mouth twice daily.Take 1 capful to 17 gm cuate mixed with full glass of water twice every day as directed.[place] 17 g por v??a oral dos veces al d??a. [place] 1 tap??n hasta la minerva de 17 g mezclado con un vaso lleno de agua dos veces al d??a seg??n las indicaciones. rivaroxaban 15 mg tablet Commonly known as: XARELTO Take 1 tablet (15 mg) by mouth twice daily with meals for 21 days. Indications: Blood Clot in a DeepVein. [place] 1 tableta (15 mg) por v??a oral dos veces al d??a con las comidas jennifer 21 d??as. 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 Start taking on: June 29, 2022 Indications: Blood Clot in a Deep Vein rivaroxaban 20 mg tablet Commonly known as: XARELTO Take 1 tablet (20 mg) by mouth daily with evening meal. Indications: Blood Clot in a Deep Vein.([place] 1 tableta (20 mg) por v??a oral diariamente con la evonne. 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 Start taking on: July 20, 2022 Indications: Blood Clot in a Deep Vein sennosides-docusate sodium 8.6-50 mg tablet Commonly known as: STOOL SOFTENER/LAXATIVE Take 1 tablet by mouth twice daily. [place] 1 tableta por la boca 2 veces al porsche. sodium chloride 1 gm Tabs Take 2 tablets (2 g) by mouth 4 times daily. TOME DOS TABLETAS ORALMENTE 4 VECES AL PORSCHE tamsulosin 0.4 mg Capsule Commonly known as: FLOMAX Take 1 capsule (0.4 mg) by mouth daily after meal.Take 30 minutes after same meal each day. Do NOT crush or chew.[place] 1 c??psula (0,4 mg) por v??a oral todos los d??as despu??s de ethan comida. [place] 30 minutos despu??s de la misma comida [...] contact pharmacist on service at [facility] ([employer]) or [phone]. If no response within needed timeframe, please contact central pharmacy via phone at [phone]. Theodora Serrano, DONALDR/Kira - 06/22/2022 12:33 PM [...] Situation/Social History: Information obtained From: patient;family / long term care pharmacist ( Samia) Help Available at home: yes, [...] tub / shower chair;raised toilet seat US [place]? : No Language Preference: Montserratian Prior Level of Function: ADLs/IADLs: No assistance required (Independent or modified independent) Functional Mobility: Independent without assistive device Gathering the above information required the following: Expanded chart audit / interview Evaluation Egg Producer Used: No, certified bilingual staff Subjective: Cooperative [...] with family. Barriers to Learning: language barrier (non-shoshone-paiute East Timorese speaker) Rehab Potential: good ASSESSMENT: (See box at the top of note for additional information) This is a 46 y.o Montserratian speaking male s/p fall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 OSMOLALITY SERUM (06/25/2022 5:51 AM CDT) athologist Signature Serum Osmo [phone] [facility] mOsm/Kg Specimen Anatomical Collection Method Collection Time Receive d Time (Source) Location / / Volume Laterality Blood 06/25/2022 5:51 AM 2 4:44 CDT PM CDT Patrice Hollins MD LABORATORY Performing Organization Address City/[facility] Code Phon e Number [facility] [place] [address] (ABNORMAL) PANEL RENAL (06/25/2022 5:51 AM CDT) athologist Signature CO2 28 22 - 30 [facility] mEq/L Glucose 144 (H) 70 - 100 [facility] mg/dL BUN 19 6 - 20 [facility] mg/dL Creatinine 0.78 0.70 - 1.25 [facility] mg/dL Calcium 9.1 8.6 - 10.0 [facility] mg/dL Albumin 3.4 (L) 3.8 - 5.1 [facility] g/dL Phosphorus 4.1 2.5 - 4.5 [facility] mg/dL eGFR, High >120 >=60 [facility] ml/min/1.73 m2 Comment: Calculated using CKD-EPI equati on Sodium 131 (L) 135 - 148 mEq/L [facility] Potassium 4.5 3.5 - 5.3 mEq/L [facility] Chloride 94 92 - 108 mEq/L [facility] eGFR, Low 109 >=60 ml/min/1.73m2 [facility] Comment: Calculated using CKD-EPI equati on AnGap 9 8 - 16 mEq/L [facility] Specimen Anatomical Collection Method Collection Time Receive d Time (Source) Location / / Volume Laterality Blood 06/25/2022 5:51 AM 2 6:23 CDT AM CDT Patrice Hollins MD LABORATORY Performing Organization Address City/[facility]/ZIP Code Phon e Number [facility] [place] [address] (ABNORMAL) CBC WITH PLATELET (06/25/2022 5:51 AM CDT) athologist Signature WBC 12.52 (H) 4.00 - [facility] 10.00 k/cmm RBC 3.62 (L) 4.60 - 6.00 [facility] m/cmm Hgb 10.2 (L) 13.1 - 17.5 [facility] g/dL Hematocrit 30.6 (L) 40.0 - 51.0 [facility] % MCV 84.5 80.0 - [facility] 100.0 fL MCH 28.2 25.0 - 32.0 [facility] pg MCHC 33.3 31.0 - 36.0 [facility] g/dL RDW 13.3 11.5 - 14.5 [facility] % Plt 522 (H) 150 - 400 [facility] k/cmm MPV 9.7 6.5 - 12.5 [facility] fL Specimen Anatomical Collection Method Collection Time Receive d Time (Source) Location / / Volume Laterality Blood 06/25/2022 5:51 AM 6:23 CDT AM CDT Patrice Hollins MD LABORATORY Performing Organization Address City/[facility]/ZIP Code Phon e Number [facility] [place] [address] (ABNORMAL) POC GLUCOSE (06/24/2022 9:13 PM CDT) athologist [facility] POC Glucose 211 (H) 70 - 100 [facility] mg/dL CAMPUS - POINT OF CARE Specimen (Source) Anatomical Collection Method Collection Time Re ceived Time Location / / Volume Laterality Blood 06/24/2022 9:13 PM CDT Kingston Castañeda MD LABORATORY Performing Organization Address City/State/ZIP Code Phon e Number [facility] - POINT OF CARE [address] [place] [phone] (ABNORMAL) POC GLUCOSE (06/24/2022 6:41 PM CDT) athologist Signature POC Glucose 248 (H) 70 - 100 [facility] mg/dL CAMPUS - POINT OF CARE Specimen (Source) Anatomical Collection Method Collection Time Re ceived Time Location / / Volume Laterality Blood 06/24/2022 6:41 PM CDT Kingston Castañeda MD LABORATORY Performing Organization Address City/State/ZIP Code Phon e Number [facility] - POINT OF CARE [address] [place] [address] (ABNORMAL) POC GLUCOSE (06/24/2022 4:39 PM CDT) P athologist Signature POC Glucose 214 (H) 70 - 100 [facility] mg/dL CAMPUS - POINT OF CARE Specimen (Source) Anatomical Collection Method Collection Time Re ceived Time Location / / Volume Laterality Blood 06/24/2022 4:39 PM CDT Kingston Castañeda MD LABORATORY Performing Organization Address City/[facility] Code Phon e Number [facility] - POINT OF CARE [address] [place] [address] XR C ARM OVER 3 HRS (06/24/2022 [...] documented by the resident/fellow. Reading Radiologist: Rizwan Cuninngham Reading Resident: Beto Irene Roosevelt Brown MD [...] POC Glucose 141 (H) 70 - 100 [facility] mg/dL CAMPUS - POINT OF CARE Specimen (Source) Anatomical Collection Method Collection Time Re ceived Time Location / / Volume Laterality Blood 06/24/2022 1:10 PM CDT Kingston Castañeda MD LABORATORY Performing Organization Address City/State/ZIP Code Phon e Number [facility] - POINT OF CARE [address] [place] [address] (ABNORMAL) POC GLUCOSE (06/24/2022 10:53 AM CDT) athologist Signature POC Glucose 146 (H) 70 - 100 [facility] mg/dL [place] - POINT OF CARE Specimen (Source) Anatomical Collection Method Collection Time Re ceived Time Location / / Volume Laterality Blood 06/24/2022 10:53 AM CDT Kingston Castañeda MD LABORATORY Performing Organization Address [facility] Code Phon e Number [facility] - POINT OF CARE [address] [place] [phone] RED BLOOD CELLS LEUKOCYTE REDUCED ADULT (BLOOD ADMIN) (06/24/2022 8:39 AM CDT) athologist [facility] RBC Ready Product [facility] Ready Specimen Anatomical Collection Method Collection Time Receive d Time (Source) Location / / Volume Laterality Other 06/24/2022 8:39 AM 2 8:39 CDT AM CDT Narrative [facility] - 06/24/2022 8:45 AM CDT 2 units net front end developer to OR to have available in case 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 bleeding Is a signed informed consent on file: Ludwig s-on file Reason for Transfusion:->Anticipated Blo od Loss for Surgery/Procedure Does patient require irradiated product: No 2 Units Miri Matthew MD BLOOD BANK ORDERABLES (BLOOD ADMIN) Performing Organization Address [facility] Code Phon e Number [facility] [place] [address] (ABNORMAL) ANTI XA HEPARIN UNFRACTIONATED (06/24/2022 7:04 AM CDT) athologist [facility] Anti XA Hep U 0.12 (L) 0.30 - [facility] 0.70 IU/mL Specimen Anatomical Collection Method Collection Time Receive d Time (Source) Location / / Volume Laterality Blood 06/24/2022 7:04 AM 2 7:35 CDT AM CDT Patrice Hollins MD LABORATORY Performing Organization Address City/[facility] Code Phon e Number [facility] [place] [address] (ABNORMAL) POC GLUCOSE (06/24/2022 6:42 AM CDT) athologist Signature POC Glucose 155 (H) 70 - 100 [facility] mg/dL CAMPUS - POINT OF CARE Specimen (Source) Anatomical Collection Method Collection Time Re ceived Time Location / / Volume Laterality Blood 06/24/2022 6:42 AM CDT Kingston Castañeda MD LABORATORY Performing Organization Address City/[facility]/ZIP [facility] Phon e Number [facility] [place] - POINT OF CARE [address] [place] [phone] MAGNESIUM (06/24/2022 5:43 AM CDT) athologist Signature Magnesium 2.0 1.6 - 2.6 [facility] mg/dL Specimen Anatomical Collection Method Collection Time Receive d Time (Source) Location / / Volume Laterality Blood 06/24/2022 5:43 AM 6:18 CDT AM CDT Patrice Hollins MD LABORATORY Performing Organization Address City/[facility] Phon e Number [facility] [place] [address] (ABNORMAL) PANEL RENAL (06/24/2022 5:43 AM CDT) athologist [facility] Sodium 132 (L) 135 - 148 [facility] mEq/L Potassium 4.2 3.5 - 5.3 [facility] mEq/L Chloride 96 92 - 108 [facility] mEq/L CO2 23 22 - 30 [facility] mEq/L Glucose 160 (H) 70 - 100 [facility] mg/dL BUN 19 6 - 20 [facility] mg/dL Creatinine 0.62 (L) 0.70 - 1.25 [facility] mg/dL Calcium 9.5 8.6 - 10.0 [facility] mg/dL Albumin 3.7 (L) 3.8 - 5.1 [facility] g/dL Phosphorus 4.3 2.5 - 4.5 [facility] mg/dL eGFR, High >120 >=60 [facility] ml/min/1.73 m2 Comment: Calculated using CKD-EPI equati on AnGap 13 8 - 16 mEq/L [facility] eGFR, Low 120 >=60 ml/min/1.73m2 [facility] Comment: Calculated using CKD-EPI equati on Specimen Anatomical Collection Method Collection Time Receive d Time (Source) Location / / Volume Laterality Blood 06/24/2022 5:43 AM 2 6:18 CDT AM CDT Patrice Hollins MD LABORATORY Performing Organization Address City/[facility] Code Phon e Number [facility] [place] [address] (ABNORMAL) CBC WITH PLATELET (06/24/2022 5:43 AM CDT) P athologist Signature WBC 11.29 (H) 4.00 - [facility] 10.00 k/cmm RBC 4.30 (L) 4.60 - 6.00 [facility] m/cmm Hgb 12.0 (L) 13.1 - 17.5 [facility] g/dL Hematocrit 36.0 (L) 40.0 - 51.0 [facility] % MCV 83.7 80.0 - [facility] 100.0 fL MCH 27.9 25.0 - 32.0 [facility] pg MCHC 33.3 31.0 - 36.0 [facility] g/dL RDW 13.3 11.5 - 14.5 [facility] % Plt 527 (H) 150 - 400 [facility] k/cmm MPV 9.8 6.5 - 12.5 [facility] fL Specimen Anatomical Collection Method Collection Time Receive d Time (Source) Location / / Volume Laterality Blood 06/24/2022 5:43 AM 2 6:18 CDT AM CDT Patrice Hollins MD LABORATORY Performing Organization Address City/[facility]/ZIP Code Phon e Number [facility] [place] [address] (ABNORMAL) ANTI XA HEPARIN UNFRACTIONATED (06/23/2022 10:42 PM CDT) P athologist Signature Anti XA Hep U 0.29 (L) 0.30 - [facility] 0.70 IU/mL Specimen Anatomical Collection Method Collection Time Receive d Time (Source) Location / / Volume Laterality Blood 06/23/2022 10:42 06/23/2022 PM CDT 11:02 PM CDT Patrice Hollins MD LABORATORY Performing Organization Address City/State/ZIP Code Phon e Number [facility] [place] [address] (ABNORMAL) POC GLUCOSE (06/23/2022 8:46 PM CDT) athologist Signature POC Glucose 136 (H) 70 - 100 [facility] mg/dL CAMPUS - POINT OF CARE Specimen (Source) Anatomical Collection Method Collection Time Re ceived Time Location / / Volume Laterality Blood 06/23/2022 8:46 PM CDT Kingston Castañeda MD LABORATORY Performing Organization Address City/State/ZIP Code Phon e Number [facility] CAMPUS - POINT OF CARE [address] [place] [phone] (ABNORMAL) POC GLUCOSE (06/23/2022 3:57 PM CDT) athologist Signature POC Glucose 200 (H) 70 - 100 [facility] mg/dL C[facility] - POINT OF CARE Specimen (Source) Anatomical Collection Method Collection Time Re ceived Time Location / / Volume Laterality Blood 06/23/2022 3:57 PM CDT Kingston Castañeda MD LABORATORY Performing Organization Address City/State/ZIP Code Phon e Number [facility]AMP[facility] - POINT OF CARE [address] [place] [phone] (ABNORMAL) ANTI XA HEPARIN UNFRACTIONATED (06/23/2022 3:40 PM CDT) Analysis Performed At Patho logist Time Signature Anti XA Hep U <0.04 (L) 0.30 - [facility] 0.70 IU/mL Specimen Anatomical Collection Method Collection Time Receive d Time (Source) Location / / Volume Laterality Blood 06/23/2022 3:40 PM 3:47 CDT PM CDT Patrice Hollins MD LABORATORY Performing Organization Address City/State/ZIP Code Phon e Number [facility] [place] [address] (ABNORMAL) POC GLUCOSE (06/23/2022 11:08 AM CDT) athologist Signature POC Glucose 125 (H) 70 - 100 [facility] mg/dL CAMPUS - POINT OF CARE Specimen (Source) Anatomical Collection Method Collection Time Re ceived Time Location / / Volume Laterality Blood 06/23/2022 11:08 AM CDT Kingston Castañeda MD LABORATORY Performing Organization Address City/[facility]/ZIP Code Phon e Number [facility] - POINT OF CARE [address] [place] [phone] (ABNORMAL) ANTI XA HEPARIN UNFRACTIONATED (06/23/2022 6:25 AM CDT) Analysis Performed At Patho logist Time Signature Anti XA Hep U <0.04 (L) 0.30 - [facility] 0.70 IU/mL Specimen Anatomical Collection Method Collection Time Receive d Time (Source) Location / / Volume Laterality Blood 06/23/2022 6:25 AM 6:34 CDT AM CDT Patrice Hollins MD LABORATORY Performing Organization Address City/[facility]/ZIP Code Phon e Number [facility] [place] [address] [place] [address] (ABNORMAL) POC GLUCOSE (06/23/2022 6:10 AM CDT) athologist Signature POC Glucose 131 (H) 70 - 100 [facility] mg/dL CAMPUS - POINT OF CARE Specimen (Source) Anatomical Collection Method Collection Time Re ceived Time Location / / Volume Laterality Blood 06/23/2022 6:10 AM CDT Kingston Castañeda MD LABORATORY Performing Organization Address City/[facility]/ZIP Code Phon e Number [facility] - POINT OF CARE [address] [place] [phone] (ABNORMAL) POC GLUCOSE (06/22/2022 9:19 PM CDT) athologist Signature POC Glucose 195 (H) 70 - 100 [facility] mg/dL CAMPUS - POINT OF CARE Specimen (Source) Anatomical Collection Method Collection Time Re ceived Time Location / / Volume Laterality Blood 06/22/2022 9:19 PM CDT Kingston Castañeda MD LABORATORY Performing Organization Address City/[facility]/ZIP Code Phon e Number [facility] - POINT OF CARE [address] [place] [phone] (ABNORMAL) POC GLUCOSE (06/22/2022 4:03 PM CDT) P athologist Signature POC Glucose 142 (H) 70 - 100 [facility] mg/dL [place] - POINT OF CARE Specimen (Source) Anatomical Collection Method Collection Time Re ceived Time Location / / Volume Laterality Blood 06/22/2022 4:03 PM CDT Kingston Castañeda MD LABORATORY Performing Organization Address City/[facility]/ZIP Code Phon e Number [facility] - POINT OF CARE [address] [place] [address] (ABNORMAL) POC GLUCOSE (06/22/2022 11:07 AM CDT) athologist Signature POC Glucose 115 (H) 70 - 100 [facility] mg/dL [place] - POINT OF CARE Specimen (Source) Anatomical Collection Method Collection Time Re ceived Time Location / / Volume Laterality Blood 06/22/2022 11:07 AM CDT Kingston Castañeda MD LABORATORY Performing Organization Address City/[facility]/ZIP Code Phon e Number [facility] - POINT OF CARE [address] [place] [address] (ABNORMAL) PROTHROMBIN (PT) & INR (06/22/2022 10:53 AM CDT) athologist Signature PT 13.9 (H) 9.0 - 12.5 [facility] sec INR 1.2 (H) 0.8 - 1.1 [facility] Specimen Anatomical Collection Method Collection Time Receive d Time (Source) Location / / Volume Laterality Blood 06/22/2022 10:53 06/22/2022 AM CDT 11:01 AM CDT Patrice Hollins MD LABORATORY Performing Organization Address City/[facility]/ZIP Code Phon e Number [facility] [place] [address] ANTIBODY SCREEN (06/22/2022 10:53 AM CDT) athologist Signature Sabrina Screen Negative [facility] Specimen Anatomical Collection Method Collection Time Receive d Time (Source) Location / / Volume Laterality Blood 06/22/2022 10:53 06/22/2022 AM CDT 11:02 AM CDT Patrice Hollins MD LAB TRANSFUSION SERVICES Performing Organization Address City/[facility]/ZIP Code Phon e Number [facility] [place] [address] BLOOD TYPING-ABO/RH (06/22/2022 10:53 AM CDT) athologist Signature ABORHG A POS [facility] Specimen Anatomical Collection Method Collection Time Receive d Time (Source) Location / / Volume Laterality Blood 06/22/2022 10:53 06/22/2022 AM CDT 11:02 AM CDT Patrice Hollins MD LAB TRANSFUSION SERVICES Performing Organization Address City/[facility]/ZIP Code Phon e Number [facility] [place] [address] COVID-19 SURVEILLANCE (06/22/2022 7:10 AM CDT) [facility] Method Time Signature COVID-19 Not Detected Not Detected [facility] Specimen (Source) Anatomical Collection Method Collection Time Re ceived Time Location / / Volume Laterality Nasopharyngeal Swab 06/22/2022 7:10 06/22 AM CDT 11:15 AM CDT Narrative [facility] - 06/22/2022 12:26 PM CDT Preferred specimen is Nasopharyngeal swab Is the patient a healthcare employee: No Is the patient a [employer] ([employer] Employee : No Patrice Hollins MD LABORATORY Performing Organization Address City/[facility]/ZIP Code Phon e Number [facility] [place] [address] (ABNORMAL) POC GLUCOSE (06/22/2022 6:11 AM CDT) athologist [facility] POC Glucose 160 (H) 70 - 100 [facility] mg/dL CAMPUS - POINT OF CARE Specimen (Source) Anatomical Collection Method Collection Time Re ceived Time Location / / Volume Laterality Blood 06/22/2022 6:11 AM CDT Kingston Castañeda MD LABORATORY Performing Organization Address City/State/ZIP Code Phon e Number [facility] CAMPUS - POINT OF CARE [address] [place] [phone] ANTI XA HEPARIN UNFRACTIONATED (06/22/2022 5:25 AM CDT) athologist Signature Anti XA Hep U 0.53 0.30 - 0.70 [facility] IU/mL Specimen Anatomical Collection Method Collection Time Receive d Time (Source) Location / / Volume Laterality Blood 06/22/2022 5:25 AM 09/18/202 2 9:54 CDT AM CDT Patrice Hollins MD LABORATORY Performing Organization Address City/[facility]/ZIP Code Phon e Number [facility] [place] [address] (ABNORMAL) CBC WITH PLATELET (06/22/2022 5:25 AM CDT) P athologist Signature WBC 10.55 (H) 4.00 - [facility] 10.00 k/cmm RBC 3.58 (L) 4.60 - 6.00 [facility] m/cmm Hgb 10.1 (L) 13.1 - 17.5 [facility] g/dL Hematocrit 30.2 (L) 40.0 - 51.0 [facility] % MCV 84.4 80.0 - [facility] 100.0 fL MCH 28.2 25.0 - 32.0 [facility] pg MCHC 33.4 31.0 - 36.0 [facility] g/dL RDW 13.3 11.5 - 14.5 [facility] % Plt 378 150 - 400 [facility] k/cmm MPV 9.7 6.5 - 12.5 [facility] fL Specimen Anatomical Collection Method Collection Time Receive d Time (Source) Location / / Volume Laterality Blood 06/22/2022 5:25 AM 2 5:39 CDT AM CDT Patrice Hollins MD LABORATORY Performing Organization Address [facility]/ZIP Code Phon e Number [facility] [place] [address] ANTI XA ASSAY LMW HEPARIN (06/22/2022 5:25 AM CDT) P athologist Signature Anti XA LMW 0.63 IU/mL [facility] Comment: Anti Xa Assay LMW Heparin Therapeutic Ra nges: 0.4-1.1 IU/mL for twice daily 1.0-2.0 IU/mL for once daily Specimen Anatomical Collection Method Collection Time Receive d Time (Source) Location / / Volume Laterality Blood 06/22/2022 5:25 AM 2 5:39 CDT AM CDT Patrice Hollins MD LABORATORY Performing Organization Address City/State/ZIP Code Phon e Number [facility] [place] [address] [place] [address] (ABNORMAL) POC GLUCOSE (06/21/2022 9:06 PM CDT) athologist Signature POC Glucose 158 (H) 70 - 100 [facility] mg/dL CAMPUS - POINT OF CARE Specimen (Source) Anatomical Collection Method Collection Time Re ceived Time Location / / Volume Laterality Blood 06/21/2022 9:06 PM CDT Kingston Castañeda MD LABORATORY Performing Organization Address City/[facility] Phon e Number [facility] CAMPUS - POINT OF CARE [address] [place] [address] (ABNORMAL) POC GLUCOSE (06/21/2022 4:13 PM CDT) athologist Signature POC Glucose 145 (H) 70 - 100 [facility] mg/dL CAMPUS - POINT OF CARE Specimen (Source) Anatomical Collection Method Collection Time Re ceived Time Location / / Volume Laterality Blood 06/21/2022 4:13 PM CDT Kingston Castañeda MD LABORATORY Performing Organization Address City/[facility] Phon e Number [facility] CAMPUS - POINT OF CARE [address] [place] [address] (ABNORMAL) POC GLUCOSE (06/21/2022 11:53 AM CDT) athologist Signature POC Glucose 154 (H) 70 - 100 [facility] mg/dL CAMPUS - POINT OF CARE Specimen (Source) Anatomical Collection Method Collection Time Re ceived Time Location / / Volume Laterality Blood 06/21/2022 11:53 AM CDT Kingston Castañeda MD LABORATORY Performing Organization Address City/[facility] Phon e Number [facility] - POINT OF CARE [address] [place] [address] ANTI XA HEPARIN UNFRACTIONATED (06/21/2022 6:19 AM CDT) athologist Signature Anti XA Hep U 0.30 0.30 - 0.70 [facility] IU/mL Specimen Anatomical Collection Method Collection Time Receive d Time (Source) Location / / Volume Laterality Blood 06/21/2022 6:19 AM 6:57 CDT AM CDT Patrice Hollins MD LABORATORY Performing Organization Address City/[facility] Code Phon e Number [facility] [place] [address] [place] [address] (ABNORMAL) POC GLUCOSE (06/21/2022 6:17 AM CDT) athologist Signature POC Glucose 141 (H) 70 - 100 [facility] mg/dL CAMPUS - POINT OF CARE Specimen (Source) Anatomical Collection Method Collection Time Re ceived Time Location / / Volume Laterality Blood 06/21/2022 6:17 AM CDT Kingston Castañeda MD LABORATORY Performing Organization Address City/[facility] Phon e Number [facility] - POINT OF CARE [address] [place] [phone] (ABNORMAL) POC GLUCOSE (06/20/2022 8:51 PM CDT) athologist Signature POC Glucose 153 (H) 70 - 100 [facility] mg/dL CAMPUS - POINT OF CARE Specimen (Source) Anatomical Collection Method Collection Time Re ceived Time Location / / Volume Laterality Blood 06/20/2022 8:51 PM CDT Kingston Castañeda MD LABORATORY Performing Organization Address City/[facility] Phon e Number [facility] - POINT OF CARE [address] [place] [phone] (ABNORMAL) POC GLUCOSE (06/20/2022 4:10 PM CDT) athologist Signature POC Glucose 133 (H) 70 - 100 [facility] mg/dL CAMPUS - POINT OF CARE Specimen (Source) Anatomical Collection Method Collection Time Re ceived Time Location / / Volume Laterality Blood 06/20/2022 4:10 PM CDT Kingston Castañeda MD LABORATORY Performing Organization Address City/[facility] Phon e Number [facility] - POINT OF CARE [address] [place] [address] XR ANKLE RIGHT 3 V AP/OBL/LAT* (06/20/2022 [...] XA Hep U 0.34 0.30 - 0.70 [facility] IU/mL Specimen Anatomical Collection Method Collection Time Receive d Time (Source) Location / / Volume Laterality Blood 06/20/2022 12:14 06/20/2022 PM CDT 12:42 PM CDT Patrice Hollins MD LABORATORY Performing Organization Address City/State/ZIP Code Phon e Number [facility] [place] [address] (ABNORMAL) POC GLUCOSE (06/20/2022 12:06 PM CDT) athologist Signature POC Glucose 143 (H) 70 - 100 [facility] mg/dL CAMPUS - POINT OF CARE Specimen (Source) Anatomical Collection Method Collection Time Re ceived Time Location / / Volume Laterality Blood 06/20/2022 12:06 PM CDT Kingston Castañeda MD LABORATORY Performing Organization Address City/State/ZIP Code Phon e Number [facility] CAMPUS - POINT OF CARE [address] [place] [phone] (ABNORMAL) POC GLUCOSE (06/20/2022 6:19 AM CDT) athologist Signature POC Glucose 126 (H) 70 - 100 [facility] mg/dL CAMPUS - POINT OF CARE Specimen (Source) Anatomical Collection Method Collection Time Re ceived Time Location / / Volume Laterality Blood 06/20/2022 6:19 AM CDT Kingston Castañeda MD LABORATORY Performing Organization Address City/[facility]/ZIP Code Phon e Number [facility] [place] - POINT OF CARE [address] [place] [phone] ANTI XA HEPARIN UNFRACTIONATED (06/20/2022 5:57 AM CDT) athologist Signature Anti XA Hep U 0.42 0.30 - 0.70 [facility] IU/mL Specimen Anatomical Collection Method Collection Time Receive d Time (Source) Location / / Volume Laterality Blood 06/20/2022 5:57 AM 2 6:19 CDT AM CDT Patrice Hollins MD LABORATORY Performing Organization Address City/[facility] Code Phon e Number [facility] [place] [address] (ABNORMAL) PANEL BASIC METABOLIC (BMP) (06/20/2022 5:57 AM CDT) athologist [facility] CO2 26 22 - 30 [facility] mEq/L Glucose 146 (H) 70 - 100 [facility] mg/dL BUN 14 6 - 20 [facility] mg/dL Creatinine 0.63 (L) 0.70 - 1.25 [facility] mg/dL Calcium 8.4 (L) 8.6 - 10.0 [facility] mg/dL eGFR, High >120 >=60 [facility] ml/min/1.73 m2 Comment: Calculated using CKD-EPI equati on Sodium 139 135 - 148 mEq/L [facility] Potassium 3.8 3.5 - 5.3 mEq/L [facility] Chloride 103 92 - 108 mEq/L [facility] eGFR, Low 119 >=60 ml/min/1.73m2 [facility] Comment: Calculated using CKD-EPI equati on AnGap 10 8 - 16 mEq/L [facility] Specimen Anatomical Collection Method Collection Time Receive d Time (Source) Location / / Volume Laterality Blood 06/20/2022 5:57 AM 2 6:19 CDT AM CDT Patrice Hollins MD LABORATORY Performing Organization Address City/[facility]/ZIP Code Phon e Number [facility] [place] [address] (ABNORMAL) CBC WITH PLATELET (06/20/2022 5:57 AM CDT) athologist Signature WBC 7.23 4.00 - [facility] 10.00 k/cmm RBC 3.19 (L) 4.60 - 6.00 [facility] m/cmm Hgb 9.0 (L) 13.1 - 17.5 [facility] g/dL Hematocrit 27.0 (L) 40.0 - 51.0 [facility] % MCV 84.6 80.0 - [facility] 100.0 fL MCH 28.2 25.0 - 32.0 [facility] pg MCHC 33.3 31.0 - 36.0 [facility] g/dL RDW 13.1 11.5 - 14.5 [facility] % Plt 266 150 - 400 [facility] k/cmm MPV 10.1 6.5 - 12.5 [facility] fL Specimen Anatomical Collection Method Collection Time Receive d Time (Source) Location / / Volume Laterality Blood 06/20/2022 5:57 AM 2 6:19 CDT AM CDT Patrice Hollins MD LABORATORY Performing Organization Address City/[facility]/ZIP Code Phon e Number [facility] [place] [address] EXTRA TUBE - SST (06/20/2022 1:05 AM CDT) athologist [facility] SST TUBE Stored [facility] Comment: SST tubes (Serum Separator) are stored in the lab for 3 days from the collection date. Specimen Anatomical Collection Method Collection Time Receive d Time (Source) Location / / Volume Laterality Blood 06/20/2022 1:05 AM 2 1:05 CDT AM CDT Kingston Castañeda MD LABORATORY Performing Organization Address City/[facility]/ZIP Code Phon e Number [facility] [place], [place] [address] [place] [address] ANTI XA HEPARIN UNFRACTIONATED (06/20/2022 12:19 AM CDT) athologist [facility] Anti XA Hep U 0.44 0.30 - 0.70 [facility] IU/mL Specimen Anatomical Collection Method Collection Time Receive d Time (Source) Location / / Volume Laterality Blood 06/20/2022 12:19 06/20/2022 1:07 AM CDT AM CDT Patrice Hollins MD LABORATORY Performing Organization Address City/State/ZIP Code Phon e Number [facility] [place] [address] [place] [address] [place] [address] (ABNORMAL) POC GLUCOSE (06/19/2022 8:57 PM CDT) P athologist Signature POC Glucose 126 (H) 70 - 100 [facility] mg/dL CAMPUS - POINT OF CARE Specimen (Source) Anatomical Collection Method Collection Time Re ceived Time Location / / Volume Laterality Blood 06/19/2022 8:57 PM CDT Kingston Castañeda MD LABORATORY Performing Organization Address City/State/ZIP Code Phon e Number [facility] [place] - POINT OF CARE [address] [place] [phone] XR FOOT RIGHT 3 V AP/OBL/LAT* (06/19/2022 [...] XA Hep U 0.25 (L) 0.30 - [facility] 0.70 IU/mL Specimen Anatomical Collection Method Collection Time Receive d Time (Source) Location / / Volume Laterality Blood 06/19/2022 5:27 PM 6:07 CDT PM CDT Patrice Hollins MD LABORATORY Performing Organization Address City/[facility]/ZIP Code Phon e Number [facility] [place] [address] (ABNORMAL) POC GLUCOSE (06/19/2022 4:01 PM CDT) athologist Signature POC Glucose 159 (H) 70 - 100 [facility] mg/dL CAMPUS - POINT OF CARE Specimen (Source) Anatomical Collection Method Collection Time Re ceived Time Location / / Volume Laterality Blood 06/19/2022 4:01 PM CDT Kingston Castañeda MD LABORATORY Performing Organization Address City/[facility]/ZIP Code Phon e Number [facility] - POINT OF CARE [address] [place] [address] ANTI XA HEPARIN UNFRACTIONATED (06/19/2022 12:51 PM CDT) athologist Signature Anti XA Hep U 0.34 0.30 - 0.70 [facility] IU/mL Specimen Anatomical Collection Method Collection Time Receive d Time (Source) Location / / Volume Laterality Blood 06/19/2022 12:51 06/19/2022 PM CDT 12:59 PM CDT Patrice Hollins MD LABORATORY Performing Organization Address City/[facility]/ZIP Code Phon e Number [facility] [place] [address] PELVIS 3D RECONSTRUCTION (06/19/2022 11:49 [...] lower lumbar spine. Procedure Note Rizwan Cunningham MB - 06/19/2022Form atting of this note might [...] POC Glucose 128 (H) 70 - 100 [facility] mg/dL CAMPUS - POINT OF CARE Specimen (Source) Anatomical Collection Method Collection Time Re ceived Time Location / / Volume Laterality Blood 06/19/2022 11:19 AM CDT Kingston Castañeda MD LABORATORY Performing Organization Address City/State/ZIP Code Phon e Number [facility] - POINT OF CARE [address] [place] [address] CT UROGRAM (06/19/2022 11:05 AM CDT) Anatomical [...] POC Glucose 135 (H) 70 - 100 [facility] mg/dL CAMPUS - POINT OF CARE Specimen (Source) Anatomical Collection Method Collection Time Re ceived Time Location / / Volume Laterality Blood 06/19/2022 6:03 AM CDT Kingston Castañeda MD LABORATORY Performing Organization Address City/[facility]/ZIP Code Phon e Number [facility] [place] - POINT OF CARE [address] [place] [phone] (ABNORMAL) ANTI XA HEPARIN UNFRACTIONATED (06/19/2022 5:15 AM CDT) Analysis Performed At Patho logist Time Signature Anti XA Hep U <0.04 (L) 0.30 - [facility] 0.70 IU/mL Specimen Anatomical Collection Method Collection Time Receive d Time (Source) Location / / Volume Laterality Blood 06/19/2022 5:15 AM 6:21 CDT AM CDT Patrice Hollins MD LABORATORY Performing Organization Address City/[facility]/ZIP Code Phon e Number [facility] [place] [address] (ABNORMAL) PANEL BASIC METABOLIC (BMP) (06/19/2022 5:15 AM CDT) athologist Signature CO2 24 22 - 30 [facility] mEq/L Glucose 140 (H) 70 - 100 [facility] mg/dL BUN 12 6 - 20 [facility] mg/dL Creatinine 0.61 (L) 0.70 - 1.25 [facility] mg/dL Calcium 8.4 (L) 8.6 - 10.0 [facility] mg/dL eGFR, High >120 >=60 [facility] ml/min/1.73 m2 Comment: Calculated using CKD-EPI equati on Sodium 139 135 - 148 mEq/L [facility] Potassium 4.5 3.5 - 5.3 mEq/L [facility] Chloride 104 92 - 108 mEq/L [facility] eGFR, Low >120 >=60 ml/min/1.73m2 [facility] Comment: Calculated using CKD-EPI equati on AnGap 11 8 - 16 mEq/L [facility] Specimen Anatomical Collection Method Collection Time Receive d Time (Source) Location / / Volume Laterality Blood 06/19/2022 5:15 AM 2 6:21 CDT AM CDT Patrice Hollins MD LABORATORY Performing Organization Address City/State/ZIP Code Phon e Number [facility] [place], [place] [address] [place] [address] (ABNORMAL) CBC WITH PLATELET (06/19/2022 5:15 AM CDT) athologist Signature WBC 4.92 4.00 - [facility] 10.00 k/cmm RBC 3.30 (L) 4.60 - 6.00 [facility] m/cmm Hgb 9.4 (L) 13.1 - 17.5 [facility] g/dL Hematocrit 28.0 (L) 40.0 - 51.0 [facility] % MCV 84.8 80.0 - [facility] 100.0 fL MCH 28.5 25.0 - 32.0 [facility] pg MCHC 33.6 31.0 - 36.0 [facility] g/dL RDW 12.8 11.5 - 14.5 [facility] % Plt 227 150 - 400 [facility] k/cmm MPV 10.7 6.5 - 12.5 [facility] fL Specimen Anatomical Collection Method Collection Time Receive d Time (Source) Location / / Volume Laterality Blood 06/19/2022 5:15 AM 6:21 CDT AM CDT Patrice Hollins MD LABORATORY Performing Organization Address City/[facility] Code Phon e Number [facility] [place] [address] (ABNORMAL) ANTI XA HEPARIN UNFRACTIONATED (06/18/2022 11:59 PM CDT) Analysis Performed At Patho logist Time Signature Anti XA Hep U <0.04 (L) 0.30 - [facility] 0.70 IU/mL Specimen Anatomical Collection Method Collection Time Receive d Time (Source) Location / / Volume Laterality Blood 06/18/2022 11:59 06/18/2022 PM CDT 11:59 PM CDT Narrative [facility] - 06/19/2022 12:35 AM CDT Baseline Patrice Hollins MD LABORATORY Performing Organization Address [facility] Phon e Number [facility] [place] [address] (ABNORMAL) POC GLUCOSE (06/18/2022 9:13 PM CDT) P athologist Signature POC Glucose 127 (H) 70 - 100 [facility] mg/dL CAMPUS - POINT OF CARE Specimen (Source) Anatomical Collection Method Collection Time Re ceived Time Location / / Volume Laterality Blood 06/18/2022 9:13 PM CDT Kingston Castañeda MD LABORATORY Performing Organization Address City/[facility]/ZIP Code Phon e Number [facility] CAMPUS - POINT OF CARE [address] [place] [phone] (ABNORMAL) POC GLUCOSE (06/18/2022 7:03 PM CDT) P athologist Signature POC Glucose 147 (H) 70 - 100 [facility] mg/dL CAMPUS - POINT OF CARE Specimen (Source) Anatomical Collection Method Collection Time Re ceived Time Location / / Volume Laterality Blood 06/18/2022 7:03 PM CDT Kingston Castañeda MD LABORATORY Performing Organization Address City/[facility]/ZIP Code Phon e Number [facility]IN CAMPUS - POINT OF CARE [address] [place] [phone] XR C ARM OVER 3 HRS (06/18/2022 [...] documented by the resident/fellow. Reading Radiologist: Rhett Ramiers Reading Resident: Beto Irene 06/19/2022 10:09 AM [...] Signature POC Glucose 98 70 - 100 [facility] mg/dL CAMPUS - POINT OF CARE Specimen (Source) Anatomical Collection Method Collection Time Re ceived Time Location / / Volume Laterality Blood 06/18/2022 4:15 PM CDT Kingston Castañeda MD LABORATORY Performing Organization Address City/State/ZIP Code Phon e Number [facility] - POINT OF CARE [address] [place] [address] .Post Sedation Immediate (06/18/2022 12:23 PM CDT) [...] the needle into the IVC. A 5 Hungarian pigtail flush catheter was advanced over the [...] the needle into the IVC. A 5 Hungarian pigtail flush catheter was advanc ed over [...] POC Glucose 109 (H) 70 - 100 [facility] mg/dL CAMPUS - POINT OF CARE Specimen (Source) Anatomical Collection Method Collection Time Re ceived Time Location / / Volume Laterality Blood 06/18/2022 11:21 AM CDT Kingston Castañeda MD LABORATORY Performing Organization Address City/State/ZIP Code Phon e Number [facility] - POINT OF CARE [address] [place] [phone] (ABNORMAL) ANTI XA HEPARIN UNFRACTIONATED (06/18/2022 10:27 AM CDT) Analysis Performed At Patho logist Time Signature Anti XA Hep U <0.04 (L) 0.30 - [facility] 0.70 IU/mL Specimen Anatomical Collection Method Collection Time Receive d Time (Source) Location / / Volume Laterality Blood 06/18/2022 10:27 06/18/2022 AM CDT 10:32 AM CDT Patrice Hollins MD LABORATORY Performing Organization Address City/State/ZIP Code Phon e Number [facility] [place] [address] XR URETHROGRAM RETROGRADE (06/18/2022 9:14 AM [...] was unremarkable. No extravasatio n was demonstrated. Magazine Grinder Loader: Kirby Complications: None Fluoroscopy time: 22 seconds [...] urethra was unremarkable. No extravasation was demonstrated. Magazine Grinder Loader: Kirby Complications: None Fluoroscopy time: 22 seconds Dose: 12 mGy IMPRESSION IMPRESSION: No evidence for anterior ure thral injury. Reading Radiologist: Mario Orr Patrice Hollins MD FLUORO (ABNORMAL) POC GLUCOSE (06/18/2022 6:26 AM CDT) athologist Signature POC Glucose 125 (H) 70 - 100 [facility] mg/dL [place] - POINT OF CARE Specimen (Source) Anatomical Collection Method Collection Time Re ceived Time Location / / Volume Laterality Blood 06/18/2022 6:26 AM CDT Kingston Castañeda MD LABORATORY Performing Organization Address City/State/ZIP Code Phon e Number [facility] - POINT OF CARE [address] [place] [address] (ABNORMAL) ANTI XA HEPARIN UNFRACTIONATED (06/18/2022 4:50 AM CDT) Analysis Performed At Path logis Time Signature Anti XA Hep U <0.04 (L) 0.30 - [facility] 0.70 IU/mL Specimen Anatomical Collection Method Collection Time Receive d Time (Source) Location / / Volume Laterality Blood 06/18/2022 4:50 AM 2 5:11 CDT AM CDT Patrice Hollins MD LABORATORY Performing Organization Address City/[facility]/ZIP Code [place] [address] (ABNORMAL) PANEL BASIC METABOLIC (BMP) (06/18/2022 4:50 AM CDT) athologist Signature CO2 23 22 - 30 [facility] mEq/L Glucose 137 (H) 70 - 100 [facility] mg/dL BUN 12 6 - 20 [facility] mg/dL Creatinine 0.66 (L) 0.70 - 1.25 [facility] mg/dL Calcium 8.3 (L) 8.6 - 10.0 [facility] mg/dL eGFR, High >120 >=60 [facility] ml/min/1.73 m2 Comment: Calculated using CKD-EPI equati on Sodium 137 135 - 148 mEq/L [facility] Potassium 3.8 3.5 - 5.3 mEq/L [facility] Chloride 105 92 - 108 mEq/L [facility] eGFR, Low 117 >=60 ml/min/1.73m2 [facility] Comment: Calculated using CKD-EPI equati on AnGap 9 8 - 16 mEq/L [facility] Specimen Anatomical Collection Method Collection Time Receive d Time (Source) Location / / Volume Laterality Blood 06/18/2022 4:50 AM 2 5:11 CDT AM CDT Patrice Hollins MD LABORATORY Performing Organization Address City/[facility] Code [place] [address] (ABNORMAL) CBC WITH PLATELET (06/18/2022 4:50 AM CDT) P athologist Signature WBC 7.80 4.00 - [facility] 10.00 k/cmm RBC 3.37 (L) 4.60 - 6.00 [facility] m/cmm Hgb 9.6 (L) 13.1 - 17.5 [facility] g/dL Hematocrit 28.8 (L) 40.0 - 51.0 [facility] % MCV 85.5 80.0 - [facility] 100.0 fL MCH 28.5 25.0 - 32.0 [facility] pg MCHC 33.3 31.0 - 36.0 [facility] g/dL RDW 13.3 11.5 - 14.5 [facility] % Plt 191 150 - 400 [facility] k/cmm MPV 10.2 6.5 - 12.5 [facility] fL Specimen Anatomical Collection Method Collection Time Receive d Time (Source) Location / / Volume Laterality Blood 06/18/2022 4:50 AM 5:11 CDT AM CDT Patrice Hollins MD LABORATORY Performing Organization Address City/[facility]/ZIP Code Phon e Number [facility] [place] [address] (ABNORMAL) ANTI XA HEPARIN UNFRACTIONATED (06/17/2022 10:34 PM CDT) athologist [facility] Anti XA Hep U 0.22 (L) 0.30 - [facility] 0.70 IU/mL Specimen Anatomical Collection Method Collection Time Receive d Time (Source) Location / / Volume Laterality Blood 06/17/2022 10:34 06/17/2022 PM CDT 11:12 PM CDT Patrice Hollins MD LABORATORY Performing Organization Address City/[facility]/ZIP Code Phon e Number [facility] [place] [address] (ABNORMAL) POC GLUCOSE (06/17/2022 8:43 PM CDT) athologist Signature POC Glucose 132 (H) 70 - 100 [facility] mg/dL CAMPUS - POINT OF CARE Specimen (Source) Anatomical Collection Method Collection Time Re ceived Time Location / / Volume Laterality Blood 06/17/2022 8:43 PM CDT Kingston Castañeda MD LABORATORY Performing Organization Address City/[facility]/ZIP Code Phon e Number [facility] CAMPUS - POINT OF CARE [address] [place] [phone] (ABNORMAL) POC GLUCOSE (06/17/2022 3:57 PM CDT) athologist Signature POC Glucose 169 (H) 70 - 100 [facility] mg/dL CAMPUS - POINT OF CARE Specimen (Source) Anatomical Collection Method Collection Time Re ceived Time Location / / Volume Laterality Blood 06/17/2022 3:57 PM CDT Kingston Castañeda MD LABORATORY Performing Organization Address City/State/ZIP Code Phon e Number [facility] [place] - POINT OF CARE [address] [place] [address] ULT VENOUS LOWER EXTREMITY BILAT (06/17/2022 3:35 [...] reported to referring provider Nisha Guadalupe via RipCode, who responded indicating that the communication was [...] reported to referring provider Nisha Guadalupe via RipCode, who responded indicating that the communication was understood. Contact was made at the time of interpretation on 06/17/2022 3:37 PM, wit hin 5 minutes of observation. Reading Radiologist: Lenny Callahan Meredith Guadalupe COUNTER [employer]ERK [employer], TIN [employer] MACHINE OPERATOR AUTOMATIC ULT (ABNORMAL) POC GLUCOSE (06/17/2022 11:54 AM CDT) P athologist Signature POC Glucose 102 (H) 70 - 100 [facility] mg/dL CAMPUS - POINT OF CARE Specimen (Source) Anatomical Collection Method Collection Time Re ceived Time Location / / Volume Laterality Blood 06/17/2022 11:54 AM CDT Kingston Castañeda MD LABORATORY Performing Organization Address City/State/ZIP Code Phon e Number [facility] CAMPUS - POINT OF CARE [address] [facility] [place] [address] ANTIBODY SCREEN (06/17/2022 11:46 AM CDT) athologist Signature Sabrina Screen Negative [facility] Specimen Anatomical Collection Method Collection Time Receive d Time (Source) Location / / Volume Laterality Blood 06/17/2022 11:46 06/17/2022 AM CDT 12:06 PM CDT Patrice Hollins MD LAB TRANSFUSION SERVICES Performing Organization Address [facility] Code Phon e Number [facility] [place] [address] BLOOD TYPING-ABO/RH (06/17/2022 11:46 AM CDT) athologist Signature ABORHG A POS [facility] Specimen Anatomical Collection Method Collection Time Receive d Time (Source) Location / / Volume Laterality Blood 06/17/2022 11:46 06/17/2022 AM CDT 12:06 PM CDT Patrice Hollins MD LAB TRANSFUSION SERVICES Performing Organization Address [facility] Phon e Number [facility] [place] [address] POC GLUCOSE (06/17/2022 6:53 AM CDT) athologist Signature POC Glucose 88 70 - 100 [facility] mg/dL CAMPUS - POINT OF CARE Specimen (Source) Anatomical Collection Method Collection Time Re ceived Time Location / / Volume Laterality Blood 06/17/2022 6:53 AM CDT Kingston Castañeda MD LABORATORY Performing Organization Address City/[facility]/ZIP Code Phon e Number [facility] CAMPUS - POINT OF CARE [address] [place] [phone] (ABNORMAL) POC GLUCOSE (06/17/2022 6:51 AM CDT) athologist Signature POC Glucose 20 (LL) 70 - 100 [facility] mg/dL CAMPUS - POINT OF CARE Specimen (Source) Anatomical Collection Method Collection Time Re ceived Time Location / / Volume Laterality Blood 06/17/2022 6:51 AM CDT Kingston Castañeda MD LABORATORY Performing Organization Address City/[facility]/ZIP Code Phon e Number [facility] CAMPUS - POINT OF CARE [address] [place] [phone] (ABNORMAL) PANEL BASIC METABOLIC (BMP) (06/17/2022 5:07 AM CDT) athologist Signature CO2 23 22 - 30 [facility] mEq/L Glucose 118 (H) 70 - 100 [facility] mg/dL BUN 13 6 - 20 [facility] mg/dL Creatinine 0.82 0.70 - 1.25 [facility] mg/dL Calcium 8.1 (L) 8.6 - 10.0 [facility] mg/dL eGFR, High >120 >=60 [facility] ml/min/1.73 m2 Comment: Calculated using CKD-EPI equati on Sodium 137 135 - 148 mEq/L [facility] Potassium 3.6 3.5 - 5.3 mEq/L [facility] Chloride 105 92 - 108 mEq/L [facility] eGFR, Low 107 >=60 ml/min/1.73m2 [facility] Comment: Calculated using CKD-EPI equati on AnGap 9 8 - 16 mEq/L [facility] Specimen Anatomical Collection Method Collection Time Receive d Time (Source) Location / / Volume Laterality Blood 06/17/2022 5:07 AM 5:37 CDT AM CDT Kingston Castañeda MD LABORATORY Performing Organization Address City/State/ZIP Code Phon e Number [facility] [place] [address] (ABNORMAL) CBC WITH PLATELET (06/17/2022 5:07 AM CDT) athologist Signature WBC 7.32 4.00 - [facility] 10.00 k/cmm RBC 3.43 (L) 4.60 - 6.00 [facility] m/cmm Hgb 9.8 (L) 13.1 - 17.5 [facility] g/dL Hematocrit 29.4 (L) 40.0 - 51.0 [facility] % MCV 85.7 80.0 - [facility] 100.0 fL MCH 28.6 25.0 - 32.0 [facility] pg MCHC 33.3 31.0 - 36.0 [facility] g/dL RDW 13.3 11.5 - 14.5 [facility] % Plt 181 150 - 400 [facility] k/cmm MPV 10.1 6.5 - 12.5 [facility] fL Specimen Anatomical Collection Method Collection Time Receive d Time (Source) Location / / Volume Laterality Blood 06/17/2022 5:07 AM 5:36 CDT AM CDT Kingston Castañeda MD LABORATORY Performing Organization Address City/State/ZIP Code Phon e Number [facility] [place] [address] (ABNORMAL) POC GLUCOSE (06/16/2022 9:14 PM CDT) athologist Signature POC Glucose 149 (H) 70 - 100 [facility] mg/dL CAMPUS - POINT OF CARE Specimen (Source) Anatomical Collection Method Collection Time Re ceived Time Location / / Volume Laterality Blood 06/16/2022 9:14 PM CDT Kingston Castañeda MD LABORATORY Performing Organization Address City/[facility]/ZIP Code Phon e Number [facility] [place] - POINT OF CARE [address] [place] [phone] XR WRIST RIGHT 3+ PA/OB/LAT/JENS* (06/16/2022 6:58 [...] radius. Reading Radiologist: Indio Cadena Yaritza Gallegos COUNTER CLERK [employer], TIN TIE MACHINE OPERATOR AUTOMATIC X-RAY POC GLUCOSE (06/16/2022 6:05 PM CDT) athologist Signature POC Glucose 73 70 - 100 [facility] mg/dL CAMPUS - POINT OF CARE Specimen (Source) Anatomical Collection Method Collection Time Re ceived Time Location / / Volume Laterality Blood 06/16/2022 6:05 PM CDT Kingston Castañeda MD LABORATORY Performing Organization Address City/[facility]/ZIP Code Phon e Number [facility] - POINT OF CARE [address] [place] [address] POC GLUCOSE (06/16/2022 12:47 PM CDT) athologist Signature POC Glucose 95 70 - 100 [facility] mg/dL [place] - POINT OF CARE Specimen (Source) Anatomical Collection Method Collection Time Re ceived Time Location / / Volume Laterality Blood 06/16/2022 12:47 PM CDT Kingston Castañeda MD LABORATORY Performing Organization Address City/[facility] Code Phon e Number [facility] - POINT OF CARE [address] [place] [address] XR PELVIS 5V AP/IN/OUTLET/JUDET* (06/16/2022 12:19 PM [...] 06/15/2022. Fluoroscopy time: ??22 seconds Dose:12 mGy Moro protocol was followed. ?? Technique: The patient [...] 06/15/2022. Fluoroscopy time: 22 seconds Dose:12 mGy Moro protocol was followed. Technique: The patient arrived [...] athologist Signature Lactate 0.7 0.7 - 2.1 [facility] mmol/L Specimen Anatomical Collection Method Collection Time Receive d Time (Source) Location / / Volume Laterality Blood 06/16/2022 2:20 AM 2 2:47 CDT AM CDT Narrative [facility] - 06/16/2022 3:06 AM CDT Send specimen on ice! Gideon Dyer MD LABORATORY Performing Organization Address City/State/ZIP Code Phon e Number [facility] [place], [place] [address] [place] [address] (ABNORMAL) URINALYSIS,TOTAL (06/16/2022 12:20 AM CDT) [facility] Method Time Signature Color YELLOW YELLOW [facility] [...] Ur 6-10 (A) 0 - 5 perHPF [facility] RBC Ur 11-20 (A) 0 - 3 perHPF [facility] SQ EPITH 0-5 0 - 5 perHPF [facility] Mucus 1+ perLPF [facility] Sperm PRESENT [facility] Bacteria UA PRESENT [facility] Comment: Presence of bacteria does not n ecessarily indicate a UTI. The presence of bacteria can indicate a non-clean catch urine specimen. Bacteria should be used in conjunction with other UA results and cl inical presentation to assist in diagnosing an infection. Urinalysis Performed at: [facility] Specific [place] 1.010 1.003 - 1.030 [facility] Specimen Anatomical Collection Method Collection Time Receive d Time (Source) Location / / Volume Laterality Urine 06/16/2022 12:20 06/16/2022 AM CDT 12:39 AM CDT Gideon Dyer MD LABORATORY Performing Organization Address City/State/ZIP Code Phon e Number [facility] [place] [address] XR PELVIS AP* (06/15/2022 11:21 PM [...] subluxati on is seen. Procedure Note Rizwan Cunningahm MBBS - 06/15/2022Form atting of this note [...] No femur fracture is identified. Procedure Note Riwzan Cunningham MBBS - 06/15/2022Form atting of this [...] L5-S1: No focal abnormality. Procedure Note Stephany Gradna MD - 06/15/2022 Thoracic and Lumbar Spine [...] canal or neural foraminal stenosis. 3. 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 Reading Radiologist: Stephany [...] visualized paraspi nous tissues is noted. Suspected [place] syndrome on left. Procedure Note Stephany Granda [...] visualized paraspi nous tissues is noted. Suspected [place] syndrome on left. IMPRESSION Impression: 1. No fracture or subluxation of the cer vical vertebrae. 2. No significant spinal canal or neural foraminal stenosis. 3. 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 Reading Radiologist: Stephany [...] styloid process, which can be seen in Muckleshoot syndrome. The visualized portions of the paranasal [...] styloid process, which can be seen in Muckleshoot syndrome. The visualized portions of the paranasal [...] TUBE - CASTAÑEDA (06/15/2022 7:20 PM CDT) P athologist Signature CASTAÑEDA TUBE Stored [facility] Comment: Castañeda top (Sodium flouride) tube s are stored in the lab for 3 days from the collection date. Specimen Anatomical Collection Method Collection Time Receive d Time (Source) Location / / Volume Laterality Blood 06/15/2022 7:20 PM 7:31 CDT PM CDT Kingston aCstañeda MD LABORATORY Performing Organization Address City/State/ZIP Code Phon e Number [facility] [place] [address] EXTRA TUBE - SST (06/15/2022 7:20 PM CDT) athologist Signature SST TUBE Stored [facility] Comment: SST tubes (Serum Separator) are stored in the lab for 3 days from the collection date. Specimen Anatomical Collection Method Collection Time Receive d Time (Source) Location / / Volume Laterality Blood 06/15/2022 7:20 PM 2 7:31 CDT PM CDT Kingston Castañeda MD LABORATORY Performing Organization Address City/[facility]/ZIP Code Phon e Number [facility] [place] [address] HS TROPONIN (06/15/2022 7:20 PM CDT) athologist [facility] HS Troponin I 4 <=34 ng/L [facility] Specimen Anatomical Collection Method Collection Time Receive d Time (Source) Location / / Volume Laterality Blood 06/15/2022 7:20 PM 2 7:41 CDT PM CDT Narrative [facility] - 06/15/2022 8:11 PM CDT First Occurrence of the Troponin order i s to be drawn Stat by Nursing staff on the unit. Gideon Dyer MD LABORATORY Performing Organization Address City/[facility]/ZIP Code Phon e Number [facility] [place] [address] (ABNORMAL) PTT (APTT) (06/15/2022 7:20 PM CDT) athologist [facility] APTT 21.4 (L) 25.0 - 37.0 [facility] sec Specimen Anatomical Collection Method Collection Time Receive d Time (Source) Location / / Volume Laterality Blood 06/15/2022 7:20 PM 2 7:41 CDT PM CDT Gideon Dyer MD LABORATORY Performing Organization Address City/[facility]/ZIP Code Phon e Number [facility] [place] [address] PROTHROMBIN (PT) & INR (06/15/2022 7:20 PM CDT) athologist [facility] PT 11.9 9.0 - 12.5 [facility] sec INR 1.0 0.8 - 1.1 [facility] Specimen Anatomical Collection Method Collection Time Receive d Time (Source) Location / / Volume Laterality Blood 06/15/2022 7:20 PM 7:41 CDT PM CDT Gideon Dyer MD LABORATORY Performing Organization Address City/[facility] Phon e Number [facility] [place] [address] COVID-19 SURVEILLANCE (06/15/2022 7:20 PM CDT) [facility] Method Time Signature COVID-19 Not Detected Not Detected [facility] Comment: This test was developed and its performa nce characteristics determined by [facility] [employer] [place] This testing, RT-PCR, has been authorized by [...] 06/15 PM CDT 7:32 PM CDT Narrative [facility] - 06/15/2022 8:08 PM CDT Preferred specimen is Nasopharyngeal swab Is the patient a healthcare employee: No Is the patient a [employer] ([employer]) Employee : No Gideon Dyer MD LABORATORY Performing Organization Address City/[facility] Code Phon e Number [facility] [place] [address] PRECAUTIONARY TUBE (06/15/2022 7:20 PM CDT) Patholo gist Method Time Signature Prec Tube Precautionary [facility] Blood Bank Specimen Received. Specimen Anatomical Collection Method Collection Time Receive d Time (Source) Location / / Volume Laterality Blood 06/15/2022 7:20 PM 2 7:43 CDT PM CDT Gideon Dyer MD LAB TRANSFUSION SERVICES Performing Organization Address City/[facility]/ZIP Code Phon e Number [facility] [place] [address] LACTATE (LACTIC ACID) (06/15/2022 7:20 PM CDT) athologist [facility] Lactate 1.4 0.7 - 2.1 [facility] mmol/L Specimen Anatomical Collection Method Collection Time Receive d Time (Source) Location / / Volume Laterality Blood 06/15/2022 7:20 PM 2 7:30 CDT PM CDT Narrative [facility] - 06/15/2022 7:30 PM CDT Send specimen on ice! Gideon Dyer MD LABORATORY Performing Organization Address City/State/ZIP Code Phon e Number [facility] [place] [address] (ABNORMAL) FIBRINOGEN (06/15/2022 7:20 PM CDT) athologist [facility] Fibrinogen 199 (L) 200 - 400 [facility] mg/dL Specimen Anatomical Collection Method Collection Time Receive d Time (Source) Location / / Volume Laterality Blood 06/15/2022 7:20 PM 2 7:41 CDT PM CDT Gideon Dyer MD LABORATORY Performing Organization Address City/State/ZIP Code Phon e Number [facility] [place] [address] ED HEMOGLOBIN TOTAL (ED ONLY) (06/15/2022 7:20 PM CDT) athologist Signature Hgb 13.7 13.1 - 17.5 [facility] g/dL Specimen Anatomical Collection Method Collection Time Receive d Time (Source) Location / / Volume Laterality Blood 06/15/2022 7:20 PM 2 7:30 CDT PM CDT Gideon Dyer MD LABORATORY Performing Organization Address [facility]/ZIP [facility] [place] [address] (ABNORMAL) ED CHEMISTRY LABS(NA,K,CL,CO2,GLU,CREAT,CA-IONIZED,ANION GAP) (06/15/2022 7:20 PM CDT) Analysis Performed At Patho logist Time Signature Sodium 140 135 - 148 [facility] mEq/L Chloride 109 (H) 92 - 108 [facility] mEq/L AnGap 8 8 - 16 [facility] mEq/L Glucose 186 (H) 70 - 100 [facility] mg/dL ICA, Actual 4.44 4.40 - [facility] 5.20 mg/dL ICA, pH 4.28 (L) 4.40 - [facility] Corrected 5.20 mg/dL Creatinine 1.00 0.70 - [facility] 1.25 mg/dL BICARB 24 22 - 26 [facility] mEq/L eGFR, High 105 >=60 [facility] ml/min/1.7 3m2 Comment: Calculated using CKD-EPI equati on eGFR, Low 90 >=60 ml/min/1.73m2 [facility] Comment: Calculated using CKD-EPI equati on Potassium 3.6 3.5 - 5.3 mEq/L [facility] Specimen Anatomical Collection Method Collection Time Receive d Time (Source) Location / / Volume Laterality Blood 06/15/2022 7:20 PM 7:30 CDT PM CDT Gideon Dyer MD LABORATORY Performing Organization Address [facility]/ZIP Code Phon e Number [facility] [place] [address] (ABNORMAL) CBC WITH PLTS/AUTO DIFF (06/15/2022 7:20 PM CDT) Patholo gist Method Time Signature WBC 14.21 (H) 4.00 - [facility] 10.00 k/cmm RBC 4.65 4.60 - [facility] 6.00 m/cmm Hgb 13.0 (L) 13.1 - [facility] 17.5 g/dL Hematocrit 39.7 (L) 40.0 - [facility] 51.0 % MCV 85.4 80.0 - [facility] 100.0 fL MCH 28.0 25.0 - [facility] 32.0 pg MCHC 32.7 31.0 - [facility] 36.0 g/dL RDW 13.2 11.5 - [facility] 14.5 % Plt 294 150 - 400 [facility] k/cmm MPV 10.6 6.5 - 12.5 [facility] fL Automated Abs 10.31 (H) 1.70 - [facility] Neutrophil 6.50 k/cmm Comment: Preliminary ANC, Final Result t o Follow Abs Immature Granulocyte 0.26 (H) 0.00 - 0.09 k/cmm [facility] Comment: The Immature Granulocyte Absolu te count contains metamyelocytes and myelocytes. Abs Neutrophil 10.31 (H) 1.70 - 6.50 k/cmm [facility] B Abs Lymphocyte 2.74 0.80 - 4.00 k/cmm [facility] B Abs Monocyte 0.67 0.20 - 1.00 k/cmm [facility] Abs Eosinophil 0.20 0.00 - 0.60 k/cmm [facility] B Abs Basophil 0.03 0.00 - 0.20 k/cmm [facility] Specimen Anatomical Collection Method Collection Time Receive d Time (Source) Location / / Volume Laterality Blood 06/15/2022 7:20 PM 2 7:41 CDT PM CDT Gideon Dyer MD LABORATORY Performing Organization Address City/State/ZIP Code Phon e Number [facility] [place] [address] BLOOD GASES (06/15/2022 7:20 PM CDT) P athologist Signature PH Anish 7.33 7.32 - 7.42 [facility] PCO2 Anish 46 41 - 51 [facility] mmHG PO2 Anish 35 25 - 40 [facility] mmHG Bicarb Anish 24 24 - 28 [facility] mEq/L O2 Sat Anish 62 % [facility] Base Exc Anish -2.9 -10.0 - 2.0 [facility] mEq/L Specimen Anatomical Collection Method Collection Time Receive d Time (Source) Location / / Volume Laterality Blood Venous 06/15/2022 7:20 PM 2 7:30 CDT PM CDT Gideon Dyer MD LABORATORY Performing Organization Address City/State/ZIP Code Phon e Number [facility] [place] [address] [address] [facility] ED US CRITICAL CARE (06/15/2022 7:16 PM [...] PM CDT 20 mL Incision (1:200,000) 0.25% ([id number]) injection INTRA-OP ONCE PRN, Starting on Thu06/24/22 [...] Whitman RN)135 (Given - Provider: Vargas Whitman RN)194 (Given - Provider: Elva Adamson RN) 0827 (Given - Provider: Vargas hollis RN)135 (Given - Provider: Vargas Whitman, RASHEL)2036 (Given - Provider: Shanice Nieves RN) 09 [...] Whitman RN)135 (Given - Provider: Vargas Whitman RN)194 (Given [...] 827 (Given - Provider: Vargas Whitman RN) 09 [...] Discont inued tamsulosin (FLOMAX) capsule 0.4 mg 075 (Given - Provi akiko: Vargas Whitman RN) 826 (Given - Provider: Vargas Whitman RN) 922 ( Given - Provider: Vargas Whitman RN) [...] Vargas Whitman RN)152 (Given - Provider: Elva Adamson RN)1946 (Given - Provider: Elva Adamson RN) 0559 [...] First) 2152 (Given - Provider: Elva Adamson, ARSHEL) Linked Groups Order Group 1: DC MED [...]
--- OUTSIDE RECORDS SUMMARY | 2022-07-20 06:59 | XMS_ITS | Encounter Summary ---
:1975 Author Organization [facility] Address [address] [place] [address] Phone Care Team Providers Name Role Phone [...] RADIOLOGY Roosevelt Brown MD [address] [place] [address] Scheduled 1, Isd-Niuean 701 [place] [address] 07/22/2022 Office Visit ORTHOPEDICS Miri Matthew MD 701 [place], [place] 556065 Scheduled 1, Isd-Niuean 701 [place] [address] 07/22/2022 Office Visit Interventional Radiology Provider, Int Ra d 1, Isd-Niuean 701 [place] [address] 07/25/2022 Appointment RADIOLOGY Patrice Hollins MD [address] [address] Scheduled 1, Isd-Niuean 701 [place] [address] 07/25/2022 Office Visit NEUROSURGERY Briana Kaplan PA -C [address] [place] [address] Scheduled 1, Isd-Niuean 701 [place] [address] 07/25/2022 Appointment PHYSICAL MEDICINE AND REHAB Lore Aguilar PT Scheduled [address] [place] [phone] (Wo rk) 08/05/2022 Appointment ORTHOPEDICS 1, Isd-Niuean Scheduled 701 [place] [address] 08/05/2022 Appointment RADIOLOGY Roosevelt Brown MD [address] [place] [address] Scheduled 1, Isd-Niuean 701 [place] [address] 08/05/2022 Appointment RADIOLOGY Roosevelt Brown MD [address] [place] [address] Scheduled 1, Isd-Niuean [address] [place] [address] 08/05/2022 Office Visit ORTHOPEDICS Roosevelt Brown MD [address] [place] [address] Scheduled 1, Isd-Niuean 701 [place] [address] documented as of this encounter Procedures Procedure [...] on filedocumented in this encounter Care Teams Client Portfolio Manager Relationship Specialty Start Date End Date Lore Au, PT Physical Therapist Physical Therapy 07/09/22 [address] [place] [address] documented as of this encounter
--- OUTSIDE RECORDS SUMMARY | 2022-07-20 06:59 | XMS_ITS | Encounter Summary ---
:1975 Author Organization [facility] Address [address] [place] [address] Phone Care Team Providers Name Role Phone [...] RADIOLOGY Roosevelt Brown MD [address] [place] [address] Scheduled 1, Isd-Liberian 701 [place] [address] 07/22/2022 Office Visit ORTHOPEDICS Miri Matthew MD 701 [place], [place] 757165 Scheduled 1, Isd-Liberian 701 [place] [address] 07/22/2022 Office Visit Interventional Radiology Provider, Int Ra d 1, Isd-Liberian 701 [place] [address] 07/25/2022 Appointment RADIOLOGY Patrice Hollins MD [address] [address] Scheduled 1, Isd-Liberian 701 [place] [address] 07/25/2022 Office Visit NEUROSURGERY Briana Kaplan PA -C [address] [place] [address] Scheduled 1, Isd-Liberian [address] [place] [address] 07/25/2022 Appointment PHYSICAL MEDICINE AND REHAB Lore Aguilar PT Scheduled [address] [place] [address]201 (Wo rk) 08/05/2022 Appointment ORTHOPEDICS 1, Isd-Liberian Scheduled 701 [place] [address] 08/05/2022 Appointment RADIOLOGY Roosevelt Brown MD [address] [place] [address] Scheduled 1, Isd-Liberian 701 [place] [address] 08/05/2022 Appointment RADIOLOGY Roosevelt Brown MD [address] [place] [address] Scheduled 1, Isd-Liberian [address] [place] [address] 08/05/2022 Office Visit ORTHOPEDICS Roosevelt Brown MD [address] [place] [address] 89862 Scheduled 1, Isd-Liberian 701 [place] [address] documented as of this encounter Procedures Procedure [...] on filedocumented in this encounter Care Teams Barrel Leveler Relationship Specialty Start Date End Date Lore Au, PT Physical Therapist Physical Therapy 07/09/22 [address] [place] [address] documented as of this encounter
[2022-07-20 07:00] VITALS: PULSE 83; O2SAT 99
--- OUTSIDE RECORDS SUMMARY | 2022-07-20 07:01 | XMS_ITS | Encounter Summary ---
:1975 Author Organization [facility] Address [address] [place] [address] Phone Care Team Providers Name Role Phone [...] RADIOLOGY Roosevelt Brown MD [address] [place] [address] Scheduled 1, Isd-Turkmen 700 [place] [address] 07/22/2022 Office Visit ORTHOPEDICS Miri Matthew MD 701 [place], [place] 619115 Scheduled 1, Isd-Turkmen 706 [place] [address] 07/22/2022 Office Visit Interventional Radiology Provider, Hesham Ra d 1, Isd-Turkmen 70 [place] [address] 07/25/2022 Appointment RADIOLOGY Patrice Hollins MD [address] [address] Scheduled 1, Isd-Turkmen 701 [place] [address] 07/25/2022 Office Visit NEUROSURGERY Eusebio, BRITTNEY CantuC [address] [place] [address] Scheduled 1, Isd-Turkmen 701 [place] [address] 07/25/2022 Appointment PHYSICAL MEDICINE AND REHAB Lore Aguilar, PT Scheduled [address] [place] [address] (Wo rk) 08/05/2022 Appointment ORTHOPEDICS 1, Isd-Turkmen Scheduled 701 [place] [address] 08/05/2022 Appointment RADIOLOGY Roosevelt Brown MD [address] [place] [address] Scheduled 1, Isd-Turkmen 701 [place] [address] 08/05/2022 Appointment RADIOLOGY Roosevelt Brown MD [address] [place] [address]2793 Scheduled 1, Isd-Turkmen 701 [place] [address] 08/05/2022 Office Visit ORTHOPEDICS Roosevelt Brown MD [address] [place] [address] Scheduled 1, Isd-Turkmen 701 [place] [address] documented as of this encounter Visit Diagnoses Not on filedocumented in this encounter
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
--- OUTSIDE RECORDS SUMMARY | 2022-07-20 07:01 | XMS_ITS | Encounter Summary ---
:1975 Author Organization [facility] Address [address] [place] [address] Phone Care Team Providers Name Role Phone Unavailable Primary Care Provider Unavailable Reason for Visit Reason Comments Wound Check Encounter Details Date Type Department Care Team Description 04/19/2007 Nurse Only [facility] Burn/Wound Clin ic Joce Mason MD [address] [facility] Mail Code [address] [place] [address] Open Wound of Arm [address] [facility] 2, [facility] Nurse [address] (Primary Dx) P4.670 [place], [place] [address] Social History Tobacco Use Types [...] RADIOLOGY Roosevelt Brown MD [address] [place] [address] [phone] Scheduled 1, Isd-[place] [address] [place] [address] 07/22/2022 Office Visit ORTHOPEDICS Miri Matthew MD [address] [place] [address] Scheduled 1, Isd-[place] [address] [place] [address] 07/22/2022 Office Visit Interventional Radiology Provider, Int Ra d 1, [place] [address] [place] [address] 07/25/2022 Appointment RADIOLOGY Patrice Hollins MD [address] [address] Scheduled 1, Isd[place] [address] [place] [address] 07/25/2022 Office Visit NEUROSURGERY Briana Kaplan PA -C [address] [place] [address] Scheduled 1, Isd[place] [address] [place] [address] 07/25/2022 Appointment PHYSICAL MEDICINE AND REHAB oLre Aguilar, PT Scheduled [address] [place] [address] (Wo rk) 08/05/2022 Appointment ORTHOPEDICS 1, Isd-[place] Scheduled [address] [place] [address] 08/05/2022 Appointment RADIOLOGY Roosevelt Brown MD [address] [place] [address] [phone] Scheduled 1, Isd[place] [address] [place] [address] 08/05/2022 Appointment RADIOLOGY Roosevelt Brown MD [address] [place] [address] Scheduled 1, Isd-[place] [address] [place] [address] 08/05/2022 Office Visit ORTHOPEDICS Roosevelt Brown MD [address] [place] [address] Scheduled 1, Isd-[place] [address] [place] [address] documented as of this encounter Visit Diagnoses Diagnosis Open wound of arm - Primary Multiple and unspecified open wound of u pper limb, without mention of complication documented in this encounter
--- OUTSIDE RECORDS SUMMARY | 2022-07-20 07:01 | XMS_ITS | Encounter Summary ---
:1975 Author Organization [facility] Address [address] [place] [address] Phone Care Team Providers Name Role Phone Unavailable Primary Care Provider Unavailable Reason for Visit Reason Comments Fall Auth/Cert (Routine) Specialty Diagnoses / Procedures Referred By Contact Refer red To Contact SURGERY Diagnoses Fall, initial encounter Erasmo Gonzalez MD [address] [facility] [address] [place], [place] [address] [phone] [place] [address] Phone: Fax: Referral ID Status Reason Start Date Expiration Date Visits Requ ested Visits Authorized [id number] 1 1 Encounter Details Date Type Department Care Team Description 06/18/2022 Surgery OR P4 Roosevelt Brown MD ORIF, PELVIS 701 [facility] [address] [place] [address] [place] [address] [phone] Social History Tobacco Use Types Packs/Day Years [...] No focal deficits appreciated on gross examination Wardrobe Supervisor Needed: yes- Kazakh [35] PLANNED DISCHARGE ORDERS: Suture/Paulette: Location right [...] address): ___ Patient Address: C/o Shawnee Bolivar [address] [place] [id number] Question Response Notes Effective date for equipment/supply 06/25/2022 Medical necessity for order (qualifying diagnosis) sacral fracture, right acetabular fracture, T12 compression fracture, right distal radius fracture Length of time equipment/supply needed 12 months Monthly quantity . Vendor Information [email or web address]; ph: [phone], fx: [phone] XR SPINE THORACOLUMBAR 2 VIEW Question Response [...] Yes Antitippers Yes Vendor Information [employer]; ph: [phone], fx: [phone] DME JUSTIFICATION OF NEED FOR EXTENDED TUB [...] PLEASE CALL the Patient Access Center at [phone] to schedule the following appointment(s) Question Response Notes Specify time frame 1 Month Reason for Visit? Evaluate need for continued IVC Filtration Provider Type? Any available Provider Clinic Location? [facility] Specialty: Interventional Radiology Schedule Appointment - [facility] Ortho Cl Order Notes PLEASE CALL the Patient Access Center at [phone] to schedule the following appointment(s) Question Response Notes Specify time frame 2 Weeks Reason for Visit? Post op follow up, hospitalization. S/p ORIF right SI joint Provider Type? Any available Provider [place] [facility] [place] Schedule Appointment in Neurosurgery- [facility] Clinic Order Notes Schedule Appointment in Neurosurgery Clinic - [facility] Neurosurgery Clinic Direct Line: [phone] [place] [address] Clinic Hours: 8 AM - 4:30 PM M-F Question Response Notes Specify time frame 6 Weeks Reason for Visit? Follow up T12 and lumbar fractures Provider Type? [facility] Clinic [place] [facility] [place] Imaging? Yes UR XR prior [...] your doctor [facility] the [facility] When should I be concerned? Order [...] 4 PM): Call the Radiology department at [phone] After hours or on Holidays: Call the [facility] continuous yarn dyeing machine operator . Ask the continuous yarn dyeing machine operator to page the Interventional Radiologist ribbon cutter. IF: -- hives or new itching the [...] wet, you can dry it with a business department chair set to cool/warm; call the Orthopaedic Clinic at [phone] if the cast remains soft. -- Cover [...] wet, you can dry it with a business department chair set to cool/warm; call the Orthopaedic Clinic at [phone] if the cast remains soft. -- Cover [...] -- Read all labels for prescription and Kteg-fgr-kovxbiw medicines. Ask the pharmacist if your prescription [...] taking these medications acetaminophen 325 mg tablet [place] 3 tabletas (975 mg) por la boca [...] (5 mg) by mouth 3 times daily. [place] 1 tableta (5 mg) por la boca [...] (400 mg) by mouth 3 times daily. [place] 1 capsula (400 mg) por la boca 3 veces al porsche. hydrOXYzine pamoate 25 mg capsule Commonly known as: VISTARIL Take 1-2 capsules (25-50 mg) by mouth every 4 hours as needed (pain adjunct (give with opioid)).[place] 1-2 c??psulas (25-50 mg) por v??a oral cada 4 horas seg??n sea necesario (complemento para el dolor (administrar con opioide)). melatonin 3 mg tablet Take 1 tablet (3 mg) by mouth at bedtime as needed for Sleep. [place] 1 tableta (3 mg) por la boca a lahora de acostrase. oxyCODONE 5 mg tablet Commonly known as: ROXICODONE [place] 1 tableta (5 mg) por la boca cada 4 horas rock sea necesario para el dolor. (Take 1 tablet (5 mg) by mouth every 4 hours as needed for Pain.) polyethylene glycol 3350 17 gm/scoop powder Commonly known as: MIRALAX/GLUCOLAX Take 17 g by mouth twice daily.Take 1 capful to 17 gm cuate mixed with full glass of water twice every day as directed.[place] 17 g por v??a oral dos veces al d??a. [place] 1 tap??n hasta la minerva de 17 g mezclado con un vaso lleno de agua dos veces al d??a seg??n las indicaciones. * Xarelto 15 mg tablet Generic drug: rivaroxaban Take 1 tablet (15 mg) by mouth twice daily with meals for 21 days. Indications: Blood Clot in a DeepVein. [place] 1 tableta (15 mg) por v??a oral dos veces al d??a con las comidas jennifer 21 d??as. 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 Start taking on: June 29, 2022 * rivaroxaban 20 mg tablet Commonly known as: XARELTO Take 1 tablet (20 mg) by mouth daily with evening meal. Indications: Blood Clot in a Deep Vein.([place] 1 tableta (20 mg) por v??a oral diariamente con la evonne. 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 [place] 1 tableta por la boca 2 veces al porsche. sodium chloride 1 gm Tabs Take 2 tablets (2 g) by mouth 4 times daily. TOME DOS TABLETAS ORALMENTE 4 VECES AL PORSCHE tamsulosin 0.4 mg Capsule Commonly known as: FLOMAX Take 1 capsule (0.4 mg) by mouth daily after meal.Take 30 minutes after same meal each day. Do NOT crush or chew.[place] 1 c??psula (0,4 mg) por v??a oral todos los d??as despu??s de ethan comida. [place] 30 minutos despu??s de la misma comida [...] Your Medications These medications were sent to [facility] Discharge Pharmacy - [place] [address] Hours: 27/04 acetaminophen 325 mg tablet bisacodyl [...] me are documented. Patrice Hollins M.D., [facility] Department of Surgery documented in this encounter [...] Self Cares with a TLSO A TLSO (Xspfuvs-Welqr-Myucwb-Orthosis) is a brace designed to immobilize your [...] determine what you need) Extended tub bench Computer Consultant Long Handled Sponge Raised Toilet Seat with arms Remember : - No weight on your right arm/hand, no pulling and no pushing with right hand. - No weight on right leg - Pivot transfer ONLY on left leg - No walking - Slow down, think before moving Discharge Instr - Speech Language PathologyTheodora Serrano OTR/L - 06/27/2022 8:50 AM CDT {COTTON STRIPPER Discharge Instructions:[id number]} AttachmentsThe following attachments cannot be sent through Care Everywhere.Cast Care (Kazakh)Forearm and Wrist Fractures ED (Kazakh)Forearm Fracture Discharge Instructions (Kazakh)Radius Fracture (Kazakh)Radius Fracture Discharge Instructions (Kazakh)Pelvic Fracture Discharge Instructions (Kazakh) Pelvic Fracture (Kazakh)Fractures (Kazakh)General Trauma Discharge Instructions (Kazakh)Type 2 Diabetes Discharge Instructions (Kazakh)documented in this encounter Medications at Time of Discharge Medication Sig Dispensed Refills Start Date End Date acetaminophen 325 mg Take 3 tablets (975 120 tablet 0 2021 oral tablet mg) by mouth 3 times daily. hydrOXYzine pamoate Take 1-2 capsules 120 capsule 0 09/22/20 22 (VISTARIL) 25 mg oral (25-50 mg) by mouth capsule every 4 hours as needed (pain adjunct (give with opioid)).[place] 1-2 c??psulas (25-50 mg) por v??a oral [...] oral by mouth 3 times TABS daily. [place] 1 tableta (5 mg) por la boca 3 veces al porsche. polyethylene glycol Take 17 g by mouth 510 g 0 06/26/20 22 3350 twice daily.Take 1 (MIRALAX/GLUCOLAX) 17 capful to 17 gm gm/scoop oral powder caute mixed with full glass of water twice every day as directed.[place] 17 g por v??a oral dos veces al d??a. [place] 1 tap??n hasta la minerva de 17 g mezclado con un vaso lleno de agua dos veces al d??a seg??n las indicaciones. sennosides-docusate Take 1 tablet by 40 each 0 06/26/2022 sodium (STOOL mouth twice daily. SOFTENER/LAXATIVE) [place] 1 tableta por 8.6-50 mg oral tablet la boca 2 veces al porsche. GABApentin (NEURONTIN) Take 1 capsule (400 120 capsule 0 400 mg oral capsule mg) by mouth 3 times daily. [place] 1 capsula (400 mg) por la boca 3 veces al porsche. tamsulosin (FLOMAX) Take 1 capsule (0.4 10 capsule 0 022 0.4 mg oral capsule mg) by mouth daily after meal.Take 30 minutes after same meal each day. Do NOT crush or chew.[place] 1 c??psula (0,4 mg) por v??a oral todos los d??as despu??s de ethan comida. [place] 30 minutos despu??s de la misma comida todos los d??as. No triture ni mastique. melatonin 3 mg oral Take 1 tablet (3 mg) 20 tablet 0 2021 tablet by mouth at bedtime as needed for Sleep. [place] 1 tableta (3 mg) por la boca [...] Thrombosis Indications: Blood Clot in a Deep Vein.([place] 1 tableta (20 mg) por v??a oral diariamente con la state patrol officer. 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 rivaroxaban (XARELTO) Take 1 tablet (15 42 tablet 0 022 07/20/2022 15 mg oral mg) by mouth twice tabletIndications: daily with meals for Deep Vein Thrombosis 21 days. Indications: Blood Clot in a Deep Vein. [place] 1 tableta (15 mg) por v??a oral [...] w/ Precautions?: Yes (with some occasional reminders) Wardrobe Supervisor Used: No, certified bilingual staff SUBJECTIVE: Cooperative [...] Functional activity: 15 minutes CLAUDIO Cordero Pager: [employer] OT Department Neal Phillips, SALES & SERVICE ASSOCIATE - 06/27/2022 9:42 AM CDT Problem: Decreased Transfer Skills Goal: Patient will transfer supine to/from sit Description: Patient will transfer supine to/from sit with (6) Modified [place] in the TLSO w/othe use of his [...] (Numeric): 4 (improved) Participation Significantly Limited?: No O:Wardrobe Supervisor Used: Yes, [facility] operations lead Mental Status Mental Status: Alert;Cooperative;Follows 3 step [...] own equipment. Neal Phillips PTA 06/27/2022 Pager: [employer] PT Dept Joce Villareal MD - 06/27/2022 [...] - ok for L LE pivot transfer) Wardrobe Supervisor Used: No, certified bilingual staff SUBJECTIVE: Cooperative [...] Functional Activity 15 minutes JACKELIN Cordero/Kira Pager: [employer] OT Department Patrice Hollins MD - 06/26/2022 [...] vital signs normal. Euvolemic on exam. Asymptomatic. [id number] LR post procedurally 06/24. Has not received [...] Hollins MD, 06/30/2022 9:13 AM Neal Phillips, SALES & SERVICE ASSOCIATE - 06/26/2022 9:03 AM CDT Problem: Decreased Transfer Skills Goal: Patient will transfer supine to/from sit Description: Patient will transfer supine to/from sit with (6) Modified [place] in the TLSO w/othe use of his [...] (Numeric): 4 (improved) Participation Significantly Limited?: No O:Wardrobe Supervisor Used: Yes, [facility] operations lead Mental Status Mental Status: Alert;Cooperative;Follows 3 step [...] set-up and management. Increase tolerance for sitting. SALES & SERVICE ASSOCIATE Appropriate: Yes Neal Phillips, SKYLER 06/26/2022 Pager: [employer] PT Dept Chintan Valadez MD - 06/26/2022 [...] (assisted with transferring pt back to bed) O:Wardrobe Supervisor Used: Yes, [facility] operations lead Mental Status Mental Status: Alert;Cooperative;Follows 3 step [...] by PT. She also assisted pt with uvzote-zc-iwg transfer. Pt required just standby assist for [...] with assisting with wheelchair set-up and management. SALES & SERVICE ASSOCIATE Appropriate: Yes Alize Stevens, PT 06/25/2022 Pager: [facility] PT Dept Problem: Decreased Transfer Skills Goal: Patient will transfer supine to/from sit Description: Patient will transfer supine to/from sit with (6) Modified [place] in the TLSO w/othe use of his [...] be able to roll with (6) Modified [place] using log roll technique w/o the use [...] - ok for L LE pivot transfer) Wardrobe Supervisor Used: No, certified bilingual staff SUBJECTIVE: Cooperative [...] about 30 minutes prior to arrival) O: Wardrobe Supervisor Used: No, certified bilingual staff Name or Reference Number (phone): [id number] Mental Status Mental Status: Alert;Cooperative;Follows 1 step [...] OR and requesting PT assist pt to [facility] Clinical Coordinator: Notified recommending 16 WC with ELR, removeable armrests, anti-tippers and cushion Family: and daughter present, educated regarding WC size considerations and equipment recs for 16 WC with B ELR and removable armrests Fall Risk Assessment: None of the above Positioning: Pt transferred to [facility] in prep for surgery at [...] have family re-demo WC part management . SALES & SERVICE ASSOCIATE Appropriate: Yes Charlene Lindo, PT 06/24/2022 Pager: [facility] PT Dept Problem: Decreased Transfer Skills Goal: Patient will roll Description: Patient will be able to roll with (6) Modified [place] using log roll technique w/o the use of his RUE while maintaining both spinal and WB restrictions in order to demonstrate improved function and D/C by 06/28. Outcome: In progress Goal: Patient will transfer supine to/from sit Description: Patient will transfer supine to/from sit with (6) Modified [place] in the TLSO w/othe use of his [...] - ok for L LE pivot transfer) Wardrobe Supervisor Used: No, certified bilingual staff SUBJECTIVE: Cooperative [...] is only present while pushing against something. Ramona nauseous upon waking, dry heaved. Able to [...] me are documented. Patrice Hollins M.D., [facility] Department of Surgery Korin Garcia MD - [...] for OR today. Hopefully this afternoon or core java engineer - Plan to convert right short arm [...] 06/23/2022 12:50 PM CDT Problem: Loss of [place] With ADLs, Risk for Goal: Patient-specific goals [...] push/pull/place weight in RUE- ok through elbow) Wardrobe Supervisor Used: Yes, agency or phone operations lead ([facility] phone/video operations lead) SUBJECTIVE: I'm getting really warm. Can I [...] care/Home mgmt/ADL: 30 minutes JACKELIN Fernandez/Kira Pager: [employer] OT Department Reshma Hackett OTR/Kira, 06/23/2022 4:09 [...] by me aredocumented. Patrice Hollins M.D., [employer] Department of Surgery Linda Lei MD - [...] [place] - 06/20/2022 10:26 AM CDT [facility] O&P Patient was seen to check fit of TLSO. Patient reports TLSO is fitting well with no reported discomfort. He and his were instructed on proper wear and care. Please call with any questions or concerns. Aman Pichardo EDITOR DICTIONARY [facility] O&P [phone] Linda Au MD - 06/20/2022 5:36 AM [...] Per nursing report, patient was bladder scanned [id number] retained, so he underwent straight catheterization. He [...] IN NOTE D: Patient transferred in to [facility] from PACU at 1950. Patient condition on arrival: stable. Patient Belonging 06/16/2022 0110 Patient or family informed of Patient Valuables and Belongings Policy (#[id number]): Due to patient condition, [facility] staff will inventory and secure patient [...] me are documented. Patrice Hollins M.D., [employer] Department of Surgery Alpesh Live MD - [...] None Transportation Used for Discharge: family will cook pickled meat Safety Concerns: None Behavioral Health Concerns: None Primary Insurance: N/A Secondary Insurance: N/A PLAN Plan/Interventions Discharge Plan: Home Risks for Readmission: None SUMMARY Patient would like to DC home where could help. He is uninsured. He has received 3 doses of Covid vaccine educational manager will continue to follow until DC [...] by me aredocumented. Patrice Hollins M.D., Bertrand.[employer] Department of Surgery Resident: Linda Au MD, [...] return to fit when able. Aman Thurow EDITOR DICTIONARY [facility] [phone] Narciso [place] - 06/16/2022 12:08 PM [...] today for fitting and delivery. Aman Thurow EDITOR DICTIONARY [facility]P [phone] Edna Ibrahim MDIV - 06/16/2022 9:36 AM CDT SPIRITUAL CARE VISIT SUMMARY Kesha Hill : 1975 Sex: male LOS: 0 days Reason for visit: Referral Assessment: Pt/family uncertain/anxious/frustrated Intervention: Engage theological concerns;Compassionate support;Facilitate communication;Lead/support spiritual rituals Outcome: Situation assessed;Gratitude expressed;Pt/family report increased sense of peace/spiritual well-being;Stress observed as lessened;Ritual provided Notes: Provided supportive presence for Kazakh speaking, Thai pt (with use of noodle maker). Pt was in pain, and consented to healing touch being provided. He indicated that this practice assisted with his pain. Pt spoke about his recent move to [place], and how he likes it there, and likes living with his Gloria there. Pt was able to speak with the nurse about his pain, and communicate that to her. He welcomed prayer, which this provider offered in Kazakh. Edna has completed levels one and two of Healing Touch and level one of Reiki. This is an energy based, gentle (limited) touch healing modality, and this patient or patient's family consented to this practice. Plan: Spiritual Care Team is available to support patient and family as needed via pager [phone]. Edna Ibrahim MDIV, 06/16/2022 9:36 AM Pager: [phone] Oanh Moore MD - 06/16/2022 6:02 AM [...] elbow flex/ext. 5/5 wrist flex/ext. 5/5 hand coil repair technician. LUE: 5/5 shoulder abduction. 5/5 elbow flex/ext. 5/5 wrist flex/ext. 5/5 hand coil repair technician. Lower Extremities: RLE: 0/5 hip flexion. 0/5 [...] Narvaez MD - 06/16/2022 12:00 [place] [address] [facility]#: [id number] PATIENT: KESHA HILL : 1975 DATE DICTATED: 06/16/2022 SURGERY STAFF DAILY PROGRESS NOTE DATE OF SERVICE: 06/16/2022 I saw and evaluated the patient. I discussed management with residents, BAKING ASSISTANT, and PAs on the Neurosurgery team and [...] MD Staff Physician Neurosurgery Service Received in Production Broacher: 06/16/2022 18:59:09 M: /[id number] TB/MODL Patrice Hollins MD - 06/15/2022 7:18 PM CDT Trauma Staff I was notified via the trauma pager at: [phone] I evaluated/examined this patient at: aRRIVAL The patient arrived at: 06/15/2022 7:15 PM I was pre-notified: Yes Switchboard. Trauma Level: Tier 2 Staff Summary (full note will be with the resident H&P): [facility] from [facility], 30 ft. Will plan head/c-spine/chest/abd/pelvis CT [...] file Social History Narrative Patient lives in [place], [place]. He is single and employed. Family [...] (06/15/221926) Temp: 36.3 ??C (97.3 ??F) (06/15/221929) Ulmer Coma Scale: Motor 6=Obeys commands Verbal 5=Oriented [...] NPO until final reads on radiography Consult COTTON STRIPPER and keep strict NPO if COTTON STRIPPER consult not indicated at this time PT/OT [...] me are documented. Patrice Hollins M.D., [facility] Department of Surgery documented in this encounter [...] Hill at 1215 Patient transported back to [facility] via Bed. Accompanied by Tech and RN [...] John Leon MD Orthopaedic Surgery, PGY3 Pager: [phone] documented in this encounter Consult Notes Sultana Nuñez, PharmD - 06/26/2022 4:10 PM CDTAssociated Order(s): DISCHARGE MED REC FINAL REVIEW BY PHARMACY PHARMACY DISCHARGE NOTE Kesha Hill : 1975 Sex: male Pharmacy service was consulted for review of patient's discharge medications. Planned discharge medications are: Medication List Medications Indications acetaminophen 325 mg tablet [place] 3 tabletas (975 mg) por la boca [...] (5 mg) by mouth 3 times daily. [place] 1 tableta (5 mg) por la boca [...] (400 mg) by mouth 3 times daily. [place] 1 capsula (400 mg) por la boca 3 veces al porsche. glipiZIDE XL 10 mg extended release tablet Generic drug: glipiZIDE XL Take 1 tablet (10 mg) by mouth daily. Indications: Type 2 Diabetes Indications: Type 2 Diabetes hydrOXYzine pamoate 25 mg capsule Commonly known as: VISTARIL Take 1-2 capsules (25-50 mg) by mouth every 4 hours as needed (pain adjunct (give with opioid)).[place] 1-2 c??psulas (25-50 mg) por v??a oral cada 4 horas seg??n sea necesario (complemento para el dolor (administrar con opioide)). melatonin 3 mg tablet Take 1 tablet (3 mg) by mouth at bedtime as needed for Sleep. [place] 1 tableta (3 mg) por la boca a lahora de acostrase. metFORMIN 1000 mg tablet Commonly known as: GLUCOPHAGE Take 1 tablet (1,000 mg) by mouth twice daily with meals. Indications: Type 2 Diabetes Indications: Type 2 Diabetes oxyCODONE 5 mg tablet Commonly known as: ROXICODONE [place] 1 o 2 tabletas por la boca cada 4 horas rock sea necesario para el dolor. (Take 1-2 tablets (5-10 mg) by mouth every 4 hours as needed for Pain.) polyethylene glycol 3350 17 gm/scoop powder Commonly known as: MIRALAX/GLUCOLAX Take 17 g by mouth twice daily.Take 1 capful to 17 gm cuate mixed with full glass of water twice every day as directed.[place] 17 g por v??a oral dos veces al d??a. [place] 1 tap??n hasta la minerva de 17 g mezclado con un vaso lleno de agua dos veces al d??a seg??n las indicaciones. rivaroxaban 15 mg tablet Commonly known as: XARELTO Take 1 tablet (15 mg) by mouth twice daily with meals for 21 days. Indications: Blood Clot in a DeepVein. [place] 1 tableta (15 mg) por v??a oral dos veces al d??a con las comidas jennifer 21 d??as. 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 Start taking on: June 29, 2022 Indications: Blood Clot in a Deep Vein rivaroxaban 20 mg tablet Commonly known as: XARELTO Take 1 tablet (20 mg) by mouth daily with evening meal. Indications: Blood Clot in a Deep Vein.([place] 1 tableta (20 mg) por v??a oral diariamente con la state patrol officer. 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 Start taking on: July 20, 2022 Indications: Blood Clot in a Deep Vein sennosides-docusate sodium 8.6-50 mg tablet Commonly known as: STOOL SOFTENER/LAXATIVE Take 1 tablet by mouth twice daily. [place] 1 tableta por la boca 2 veces al porsche. sodium chloride 1 gm Tabs Take 2 tablets (2 g) by mouth 4 times daily. TOME DOS TABLETAS ORALMENTE 4 VECES AL PORSCHE tamsulosin 0.4 mg Capsule Commonly known as: FLOMAX Take 1 capsule (0.4 mg) by mouth daily after meal.Take 30 minutes after same meal each day. Do NOT crush or chew.[place] 1 c??psula (0,4 mg) por v??a oral todos los d??as despu??s de ethan comida. [place] 30 minutos despu??s de la misma comida [...] on service at Pharm[facility] ([employer]) or [phone]. If no response within needed timeframe, please contact central pharmacy via phone at [phone]. Theodora Serrano, DONALDR/Kira - 06/22/2022 12:33 PM [...] Situation/Social History: Information obtained From: patient;family / care aide ( Samia) Help Available at home: yes, [...] tub / shower chair;raised toilet seat [place]? : No Language Preference: Kazakh Prior Level of Function: ADLs/IADLs: No assistance required (Independent or modified independent) Functional Mobility: Independent without assistive device Gathering the above information required the following: Expanded chart audit / interview Evaluation Wardrobe Supervisor Used: No, certified bilingual staff Subjective: Cooperative [...] with family. Barriers to Learning: language barrier (non[place] Montenegrin speaker) Rehab Potential: good ASSESSMENT: (See box at the top of note for additional information) This is a 46 y.o Kazakh speaking male s/p fall with multiple injuries/fractures. [...] Cooperative Follows Direction: 1-2 step commands with operations lead. OBJECTIVE Initial patient presentation upon PT arrival: [...] getting pt upright into a wheelchair, strengthening/ROM. SALES & SERVICE ASSOCIATE Appropriate: No Participated in goal setting and treatment planning: Patient, Family Agrees with goals and treatment plan: Patient - Yes, Family - Yes. Mic Cyr, SPT 06/20/2022 Pager: [employer] PT Department This handbook writer reviewed this note and directly observed PT student with this patient. Charlene Lindo P.T. PT License [id number] Ext. [phone] Ed Beaver PA-C - 06/18/2022 8:45 AM [...] file Social History Narrative Patient lives in [place], [place]. He is single and employed. 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 Patrice Hollins MD LABORATORY Performing Organization Address City/[facility]/ZIP Code Phon e Number [facility] [place] [address] (ABNORMAL) POC GLUCOSE (06/24/2022 9:13 PM CDT) athologist [facility] POC Glucose 211 (H) 70 - 100 [facility] mg/dL CAMPUS - POINT OF CARE Specimen (Source) Anatomical Collection Method Collection Time Re ceived Time Location / / Volume Laterality Blood 06/24/2022 9:13 PM CDT Kingston Castañeda MD LABORATORY Performing Organization Address City/State/ZIP Code Phon e Number [facility]IN CAMPUS - POINT OF CARE [address] [place] [phone] (ABNORMAL) POC GLUCOSE (06/24/2022 6:41 PM CDT) athologist Signature POC Glucose 248 (H) 70 - 100 [facility] mg/dL CAMPUS - POINT OF CARE Specimen (Source) Anatomical Collection Method Collection Time Re ceived Time Location / / Volume Laterality Blood 06/24/2022 6:41 PM CDT Kingston Castañeda MD LABORATORY Performing Organization Address City/State/ZIP Code Phon e Number [facility] - POINT OF CARE [address] [place] [address] (ABNORMAL) POC GLUCOSE (06/24/2022 4:39 PM CDT) P athologist Signature POC Glucose 214 (H) 70 - 100 [facility] mg/dL CAMPUS - POINT OF CARE Specimen (Source) Anatomical Collection Method Collection Time Re ceived Time Location / / Volume Laterality Blood 06/24/2022 4:39 PM CDT Kingston Castañeda MD LABORATORY Performing Organization Address City/[facility] Code Phon e Number [facility] - POINT OF CARE [address] [place] [address] XR C ARM OVER 3 HRS (06/24/2022 [...] POC Glucose 141 (H) 70 - 100 [facility] mg/dL CAMPUS - POINT OF CARE Specimen (Source) Anatomical Collection Method Collection Time Re ceived Time Location / / Volume Laterality Blood 06/24/2022 1:10 PM CDT Kingston Castañeda MD LABORATORY Performing Organization Address City/State/ZIP Code Phon e Number [facility]IN CAMPUS - POINT OF CARE [address] [place] [address] (ABNORMAL) POC GLUCOSE (06/24/2022 10:53 AM CDT) athologist Signature POC Glucose 146 (H) 70 - 100 [facility] mg/dL [place] - POINT OF CARE Specimen (Source) Anatomical Collection Method Collection Time Re ceived Time Location / / Volume Laterality Blood 06/24/2022 10:53 AM CDT Kingston Castañeda MD LABORATORY Performing Organization Address [facility] Code Phon e Number [facility] - POINT OF CARE [address] [place] [phone] RED BLOOD CELLS LEUKOCYTE REDUCED ADULT (BLOOD ADMIN) (06/24/2022 8:39 AM CDT) athologist [facility] RBC Ready Product [facility] Ready Specimen Anatomical Collection Method Collection Time Receive d Time (Source) Location / / Volume Laterality Other 06/24/2022 8:39 AM 2 8:39 CDT AM CDT Narrative [facility] - 06/24/2022 8:45 AM CDT 2 units ribbon cutter to OR to have available in case 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 bleeding Is a signed informed consent on file: Ludwig s-on file Reason for Transfusion:->Anticipated Blo od Loss for Surgery/Procedure Does patient require irradiated product: No 2 Units Miri Matthew MD BLOOD BANK ORDERABLES (BLOOD ADMIN) Performing Organization Address [facility] Code Phon e Number [facility] [place] [address] (ABNORMAL) ANTI XA HEPARIN UNFRACTIONATED (06/24/2022 7:04 AM CDT) athologist [facility] Anti XA Hep U 0.12 (L) 0.30 - [facility] 0.70 IU/mL Specimen Anatomical Collection Method Collection Time Receive d Time (Source) Location / / Volume Laterality Blood 06/24/2022 7:04 AM 2 7:35 CDT AM CDT Patrice Hollins MD LABORATORY Performing Organization Address City/[facility] Code Phon e Number [facility] [place] [address] (ABNORMAL) POC GLUCOSE (06/24/2022 6:42 AM CDT) athologist Signature POC Glucose 155 (H) 70 - 100 [facility] mg/dL CAMPUS - POINT OF CARE Specimen (Source) Anatomical Collection Method Collection Time Re ceived Time Location / / Volume Laterality Blood 06/24/2022 6:42 AM CDT Kingston Castañeda MD LABORATORY Performing Organization Address City/[facility]/ZIP [facility] Phon e Number [facility] [place] - POINT OF CARE [address] [place] [phone] MAGNESIUM (06/24/2022 5:43 AM CDT) athologist Signature Magnesium 2.0 1.6 - 2.6 [facility] mg/dL Specimen Anatomical Collection Method Collection Time Receive d Time (Source) Location / / Volume Laterality Blood 06/24/2022 5:43 AM 6:18 CDT AM CDT Patrice Hollins MD LABORATORY Performing Organization Address City/[facility] Phon e Number [facility] [place] [address] (ABNORMAL) PANEL RENAL (06/24/2022 5:43 AM CDT) athologist [facility] Sodium 132 (L) 135 - 148 [facility] mEq/L Potassium 4.2 3.5 - 5.3 [facility] mEq/L Chloride 96 92 - 108 [facility] mEq/L CO2 23 22 - 30 [facility] mEq/L Glucose 160 (H) 70 - 100 [facility] mg/dL BUN 19 6 - 20 [facility] mg/dL Creatinine 0.62 (L) 0.70 - 1.25 [facility] mg/dL Calcium 9.5 8.6 - 10.0 [facility] mg/dL Albumin 3.7 (L) 3.8 - 5.1 [facility] g/dL Phosphorus 4.3 2.5 - 4.5 [facility] mg/dL eGFR, High >120 >=60 [facility] ml/min/1.73 m2 Comment: Calculated using CKD-EPI equati on AnGap 13 8 - 16 mEq/L [facility] eGFR, Low 120 >=60 ml/min/1.73m2 [facility] Comment: Calculated using CKD-EPI equati on Specimen Anatomical Collection Method Collection Time Receive d Time (Source) Location / / Volume Laterality Blood 06/24/2022 5:43 AM 2 6:18 CDT AM CDT Patrice Hollins MD LABORATORY Performing Organization Address City/[facility] Code Phon e Number [facility] [place] [address] (ABNORMAL) CBC WITH PLATELET (06/24/2022 5:43 AM CDT) P athologist Signature WBC 11.29 (H) 4.00 - [facility] 10.00 k/cmm RBC 4.30 (L) 4.60 - 6.00 [facility] m/cmm Hgb 12.0 (L) 13.1 - 17.5 [facility] g/dL Hematocrit 36.0 (L) 40.0 - 51.0 [facility] % MCV 83.7 80.0 - [facility] 100.0 fL MCH 27.9 25.0 - 32.0 [facility] pg MCHC 33.3 31.0 - 36.0 [facility] g/dL RDW 13.3 11.5 - 14.5 [facility] % Plt 527 (H) 150 - 400 [facility] k/cmm MPV 9.8 6.5 - 12.5 [facility] fL Specimen Anatomical Collection Method Collection Time Receive d Time (Source) Location / / Volume Laterality Blood 06/24/2022 5:43 AM 2 6:18 CDT AM CDT Patrice Hollins MD LABORATORY Performing Organization Address City/[facility]/ZIP Code Phon e Number [facility] [place] [address] (ABNORMAL) ANTI XA HEPARIN UNFRACTIONATED (06/23/2022 10:42 PM CDT) P athologist Signature Anti XA Hep U 0.29 (L) 0.30 - [facility] 0.70 IU/mL Specimen Anatomical Collection Method Collection Time Receive d Time (Source) Location / / Volume Laterality Blood 06/23/2022 10:42 06/23/2022 PM CDT 11:02 PM CDT Patrice Hollins MD LABORATORY Performing Organization Address City/State/ZIP Code Phon e Number [facility] [place] [address] (ABNORMAL) POC GLUCOSE (06/23/2022 8:46 PM CDT) athologist Signature POC Glucose 136 (H) 70 - 100 [facility] mg/dL CAMPUS - POINT OF CARE Specimen (Source) Anatomical Collection Method Collection Time Re ceived Time Location / / Volume Laterality Blood 06/23/2022 8:46 PM CDT Kingston Castañeda MD LABORATORY Performing Organization Address City/State/ZIP Code Phon e Number [facility] MAIN CAMPUS - POINT OF CARE [address] [place] [phone] (ABNORMAL) POC GLUCOSE (06/23/2022 3:57 PM CDT) athologist Signature POC Glucose 200 (H) 70 - 100 [facility] mg[facility]dL C[facility] - POINT OF CARE Specimen (Source) Anatomical Collection Method Collection Time Re ceived Time Location / / Volume Laterality Blood 06/23/2022 3:57 PM CDT Kingston Castañeda MD LABORATORY Performing Organization Address City/State/ZIP Code Phon e Number [facility]IN CAMPUS - POINT OF CARE [address] [place] [phone] (ABNORMAL) ANTI XA HEPARIN UNFRACTIONATED (06/23/2022 3:40 PM CDT) Analysis Performed At Patho logist Time Signature Anti XA Hep U <0.04 (L) 0.30 - [facility] 0.70 IU/mL Specimen Anatomical Collection Method Collection Time Receive d Time (Source) Location / / Volume Laterality Blood 06/23/2022 3:40 PM 3:47 CDT PM CDT Patrice Hollins MD LABORATORY Performing Organization Address City/State/ZIP Code Phon e Number [facility] [place] [address] (ABNORMAL) POC GLUCOSE (06/23/2022 11:08 AM CDT) athologist Signature POC Glucose 125 (H) 70 - 100 [facility] mg/dL CAMPUS - POINT OF CARE Specimen (Source) Anatomical Collection Method Collection Time Re ceived Time Location / / Volume Laterality Blood 06/23/2022 11:08 AM CDT Kingston Castañeda MD LABORATORY Performing Organization Address City/[facility]/ZIP Code Phon e Number [facility] - POINT OF CARE [address] [place] [phone] (ABNORMAL) ANTI XA HEPARIN UNFRACTIONATED (06/23/2022 6:25 AM CDT) Analysis Performed At Patho logist Time Signature Anti XA Hep U <0.04 (L) 0.30 - [facility] 0.70 IU/mL Specimen Anatomical Collection Method Collection Time Receive d Time (Source) Location / / Volume Laterality Blood 06/23/2022 6:25 AM 6:34 CDT AM CDT Patrice Hollins MD LABORATORY Performing Organization Address City/[facility]/ZIP Code Phon e Number [facility] [place] [address] [place] [address] (ABNORMAL) POC GLUCOSE (06/23/2022 6:10 AM CDT) athologist Signature POC Glucose 131 (H) 70 - 100 [facility] mg/dL CAMPUS - POINT OF CARE Specimen (Source) Anatomical Collection Method Collection Time Re ceived Time Location / / Volume Laterality Blood 06/23/2022 6:10 AM CDT Kingston Castañeda MD LABORATORY Performing Organization Address City/[facility]/ZIP Code Phon e Number [facility] - POINT OF CARE [address] [place] [phone] (ABNORMAL) POC GLUCOSE (06/22/2022 9:19 PM CDT) athologist Signature POC Glucose 195 (H) 70 - 100 [facility] mg/dL CAMPUS - POINT OF CARE Specimen (Source) Anatomical Collection Method Collection Time Re ceived Time Location / / Volume Laterality Blood 06/22/2022 9:19 PM CDT Kingston Castañeda MD LABORATORY Performing Organization Address City/[facility]/ZIP Code Phon e Number [facility] - POINT OF CARE [address] [place] [phone] (ABNORMAL) POC GLUCOSE (06/22/2022 4:03 PM CDT) P athologist Signature POC Glucose 142 (H) 70 - 100 [facility] mg/dL [place] - POINT OF CARE Specimen (Source) Anatomical Collection Method Collection Time Re ceived Time Location / / Volume Laterality Blood 06/22/2022 4:03 PM CDT Kingston Castañeda MD LABORATORY Performing Organization Address City/[facility]/ZIP Code Phon e Number [facility] - POINT OF CARE [address] [place] [address] (ABNORMAL) POC GLUCOSE (06/22/2022 11:07 AM CDT) athologist Signature POC Glucose 115 (H) 70 - 100 [facility] mg/dL [place] - POINT OF CARE Specimen (Source) Anatomical Collection Method Collection Time Re ceived Time Location / / Volume Laterality Blood 06/22/2022 11:07 AM CDT Kingston Castañeda MD LABORATORY Performing Organization Address City/[facility]/ZIP Code Phon e Number [facility] - POINT OF CARE [address] [place] [address] (ABNORMAL) PROTHROMBIN (PT) & INR (06/22/2022 10:53 AM CDT) athologist Signature PT 13.9 (H) 9.0 - 12.5 [facility] sec INR 1.2 (H) 0.8 - 1.1 [facility] Specimen Anatomical Collection Method Collection Time Receive d Time (Source) Location / / Volume Laterality Blood 06/22/2022 10:53 06/22/2022 AM CDT 11:01 AM CDT Patrice Hollins MD LABORATORY Performing Organization Address City/[facility]/ZIP Code Phon e Number [facility] [place] [address] ANTIBODY SCREEN (06/22/2022 10:53 AM CDT) athologist Signature Sabrina Screen Negative [facility] Specimen Anatomical Collection Method Collection Time Receive d Time (Source) Location / / Volume Laterality Blood 06/22/2022 10:53 06/22/2022 AM CDT 11:02 AM CDT Patrice Hollins MD LAB TRANSFUSION SERVICES Performing Organization Address City/[facility]/ZIP Code Phon e Number [facility] [place] [address] BLOOD TYPING-ABO/RH (06/22/2022 10:53 AM CDT) athologist Signature ABORHG A POS [facility] Specimen Anatomical Collection Method Collection Time Receive d Time (Source) Location / / Volume Laterality Blood 06/22/2022 10:53 06/22/2022 AM CDT 11:02 AM CDT Patrice Hollins MD LAB TRANSFUSION SERVICES Performing Organization Address City/[facility]/ZIP Code Phon e Number [facility] [place] [address] COVID-19 SURVEILLANCE (06/22/2022 7:10 AM CDT) [facility] Method Time Signature COVID-19 Not Detected Not Detected [facility] Specimen (Source) Anatomical Collection Method Collection Time Re ceived Time Location / / Volume Laterality Nasopharyngeal Swab 06/22/2022 7:10 06/22 AM CDT 11:15 AM CDT Narrative [facility] - 06/22/2022 12:26 PM CDT Preferred specimen is Nasopharyngeal swab Is the patient a healthcare employee: No Is the patient a [employer] [facility] [facility] Employee : No Patrice Hollins MD LABORATORY Performing Organization Address City/[facility]/ZIP Code Phon e Number [facility] [place] [address] (ABNORMAL) POC GLUCOSE (06/22/2022 6:11 AM CDT) athologist [facility] POC Glucose 160 (H) 70 - 100 [facility] mg/dL CAMPUS - POINT OF CARE Specimen (Source) Anatomical Collection Method Collection Time Re ceived Time Location / / Volume Laterality Blood 06/22/2022 6:11 AM CDT Kingston Castañeda MD LABORATORY Performing Organization Address City/State/ZIP Code Phon e Number [facility] MAIN CAMPUS - POINT OF CARE [address] [place] [phone] ANTI XA HEPARIN UNFRACTIONATED (06/22/2022 5:25 AM CDT) athologist Signature Anti XA Hep U 0.53 0.30 - 0.70 [facility] IU/mL Specimen Anatomical Collection Method Collection Time Receive d Time (Source) Location / / Volume Laterality Blood 06/22/2022 5:25 AM 09/18/202 2 9:54 CDT AM CDT Patrice Hollins MD LABORATORY Performing Organization Address City/[facility]/ZIP Code Phon e Number [facility] [place] [address] (ABNORMAL) CBC WITH PLATELET (06/22/2022 5:25 AM CDT) P athologist Signature WBC 10.55 (H) 4.00 - [facility] 10.00 k/cmm RBC 3.58 (L) 4.60 - 6.00 [facility] m/cmm Hgb 10.1 (L) 13.1 - 17.5 [facility] g/dL Hematocrit 30.2 (L) 40.0 - 51.0 [facility] % MCV 84.4 80.0 - [facility] 100.0 fL MCH 28.2 25.0 - 32.0 [facility] pg MCHC 33.4 31.0 - 36.0 [facility] g/dL RDW 13.3 11.5 - 14.5 [facility] % Plt 378 150 - 400 [facility] k/cmm MPV 9.7 6.5 - 12.5 [facility] fL Specimen Anatomical Collection Method Collection Time Receive d Time (Source) Location / / Volume Laterality Blood 06/22/2022 5:25 AM 2 5:39 CDT AM CDT Patrice Hollins MD LABORATORY Performing Organization Address [facility]/ZIP Code Phon e Number [facility] [place] [address] ANTI XA ASSAY LMW HEPARIN (06/22/2022 5:25 AM CDT) P athologist Signature Anti XA LMW 0.63 IU/mL [facility] Comment: Anti Xa Assay LMW Heparin Therapeutic Ra nges: 0.4-1.1 IU/mL for twice daily 1.0-2.0 IU/mL for once daily Specimen Anatomical Collection Method Collection Time Receive d Time (Source) Location / / Volume Laterality Blood 06/22/2022 5:25 AM 2 5:39 CDT AM CDT Patrice Hollins MD LABORATORY Performing Organization Address City/State/ZIP Code Phon e Number [facility] [place] [address] [place] [address] (ABNORMAL) POC GLUCOSE (06/21/2022 9:06 PM CDT) athologist Signature POC Glucose 158 (H) 70 - 100 [facility] mg/dL CAMPUS - POINT OF CARE Specimen (Source) Anatomical Collection Method Collection Time Re ceived Time Location / / Volume Laterality Blood 06/21/2022 9:06 PM CDT Kingston Castañeda MD LABORATORY Performing Organization Address City/[facility] Phon e Number [facility] CAMPUS - POINT OF CARE [address] [place] [address] (ABNORMAL) POC GLUCOSE (06/21/2022 4:13 PM CDT) athologist Signature POC Glucose 145 (H) 70 - 100 [facility] mg/dL CAMPUS - POINT OF CARE Specimen (Source) Anatomical Collection Method Collection Time Re ceived Time Location / / Volume Laterality Blood 06/21/2022 4:13 PM CDT Kingston Castañeda MD LABORATORY Performing Organization Address City/[facility] Phon e Number [facility] CAMPUS - POINT OF CARE [address] [place] [address] (ABNORMAL) POC GLUCOSE (06/21/2022 11:53 AM CDT) athologist Signature POC Glucose 154 (H) 70 - 100 [facility] mg/dL CAMPUS - POINT OF CARE Specimen (Source) Anatomical Collection Method Collection Time Re ceived Time Location / / Volume Laterality Blood 06/21/2022 11:53 AM CDT Kingston Castañeda MD LABORATORY Performing Organization Address City/[facility] Phon e Number [facility] - POINT OF CARE [address] [place] [address] ANTI XA HEPARIN UNFRACTIONATED (06/21/2022 6:19 AM CDT) athologist Signature Anti XA Hep U 0.30 0.30 - 0.70 [facility] IU/mL Specimen Anatomical Collection Method Collection Time Receive d Time (Source) Location / / Volume Laterality Blood 06/21/2022 6:19 AM 6:57 CDT AM CDT Patrice Hollins MD LABORATORY Performing Organization Address City/[facility] Code Phon e Number [facility] [place] [address] [place] [address] (ABNORMAL) POC GLUCOSE (06/21/2022 6:17 AM CDT) athologist Signature POC Glucose 141 (H) 70 - 100 [facility] mg/dL CAMPUS - POINT OF CARE Specimen (Source) Anatomical Collection Method Collection Time Re ceived Time Location / / Volume Laterality Blood 06/21/2022 6:17 AM CDT Kingston Castañeda MD LABORATORY Performing Organization Address City/[facility] Phon e Number [facility] - POINT OF CARE [address] [place] [phone] (ABNORMAL) POC GLUCOSE (06/20/2022 8:51 PM CDT) athologist Signature POC Glucose 153 (H) 70 - 100 [facility] mg/dL CAMPUS - POINT OF CARE Specimen (Source) Anatomical Collection Method Collection Time Re ceived Time Location / / Volume Laterality Blood 06/20/2022 8:51 PM CDT Kingston Castañeda MD LABORATORY Performing Organization Address City/[facility] Phon e Number [facility] - POINT OF CARE [address] [place] [phone] (ABNORMAL) POC GLUCOSE (06/20/2022 4:10 PM CDT) athologist Signature POC Glucose 133 (H) 70 - 100 [facility] mg/dL CAMPUS - POINT OF CARE Specimen (Source) Anatomical Collection Method Collection Time Re ceived Time Location / / Volume Laterality Blood 06/20/2022 4:10 PM CDT Kingston Castañeda MD LABORATORY Performing Organization Address City/[facility] Phon e Number [facility] - POINT OF CARE [address] [place] [address] XR ANKLE RIGHT 3 V AP/OBL/LAT* (06/20/2022 [...] XA Hep U 0.34 0.30 - 0.70 [facility] IU/mL Specimen Anatomical Collection Method Collection Time Receive d Time (Source) Location / / Volume Laterality Blood 06/20/2022 12:14 06/20/2022 PM CDT 12:42 PM CDT Patrice Hollins MD LABORATORY Performing Organization Address City/State/ZIP Code Phon e Number [facility] [place] [address] (ABNORMAL) POC GLUCOSE (06/20/2022 12:06 PM CDT) athologist Signature POC Glucose 143 (H) 70 - 100 [facility] mg/dL CAMPUS - POINT OF CARE Specimen (Source) Anatomical Collection Method Collection Time Re ceived Time Location / / Volume Laterality Blood 06/20/2022 12:06 PM CDT Kingston Castañeda MD LABORATORY Performing Organization Address City/State/ZIP Code Phon e Number [facility] - POINT OF CARE [address] [place] [phone] (ABNORMAL) POC GLUCOSE (06/20/2022 6:19 AM CDT) athologist Signature POC Glucose 126 (H) 70 - 100 [facility] mg/dL CAMPUS - POINT OF CARE Specimen (Source) Anatomical Collection Method Collection Time Re ceived Time Location / / Volume Laterality Blood 06/20/2022 6:19 AM CDT Kingston Castañeda MD LABORATORY Performing Organization Address City/[facility]/ZIP Code Phon e Number [facility] [place] - POINT OF CARE [address] [place] [phone] ANTI XA HEPARIN UNFRACTIONATED (06/20/2022 5:57 AM CDT) athologist Signature Anti XA Hep U 0.42 0.30 - 0.70 [facility] IU/mL Specimen Anatomical Collection Method Collection Time Receive d Time (Source) Location / / Volume Laterality Blood 06/20/2022 5:57 AM 2 6:19 CDT AM CDT Patrice Hollins MD LABORATORY Performing Organization Address City/[facility] Code Phon e Number [facility] [place] [address] (ABNORMAL) PANEL BASIC METABOLIC (BMP) (06/20/2022 5:57 AM CDT) athologist [facility] CO2 26 22 - 30 [facility] mEq/L Glucose 146 (H) 70 - 100 [facility] mg/dL BUN 14 6 - 20 [facility] mg/dL Creatinine 0.63 (L) 0.70 - 1.25 [facility] mg/dL Calcium 8.4 (L) 8.6 - 10.0 [facility] mg/dL eGFR, High >120 >=60 [facility] ml/min/1.73 m2 Comment: Calculated using CKD-EPI equati on Sodium 139 135 - 148 mEq/L [facility] Potassium 3.8 3.5 - 5.3 mEq/L [facility] Chloride 103 92 - 108 mEq/L [facility] eGFR, Low 119 >=60 ml/min/1.73m2 [facility] Comment: Calculated using CKD-EPI equati on AnGap 10 8 - 16 mEq/L [facility] Specimen Anatomical Collection Method Collection Time Receive d Time (Source) Location / / Volume Laterality Blood 06/20/2022 5:57 AM 2 6:19 CDT AM CDT Patrice Hollins MD LABORATORY Performing Organization Address City/[facility]/ZIP Code Phon e Number [facility] [place] [address] (ABNORMAL) CBC WITH PLATELET (06/20/2022 5:57 AM CDT) athologist Signature WBC 7.23 4.00 - [facility] 10.00 k/cmm RBC 3.19 (L) 4.60 - 6.00 [facility] m/cmm Hgb 9.0 (L) 13.1 - 17.5 [facility] g/dL Hematocrit 27.0 (L) 40.0 - 51.0 [facility] % MCV 84.6 80.0 - [facility] 100.0 fL MCH 28.2 25.0 - 32.0 [facility] pg MCHC 33.3 31.0 - 36.0 [facility] g/dL RDW 13.1 11.5 - 14.5 [facility] % Plt 266 150 - 400 [facility] k/cmm MPV 10.1 6.5 - 12.5 [facility] fL Specimen Anatomical Collection Method Collection Time Receive d Time (Source) Location / / Volume Laterality Blood 06/20/2022 5:57 AM 2 6:19 CDT AM CDT Patrice Hollins MD LABORATORY Performing Organization Address City/[facility]/ZIP Code Phon e Number [facility] [place] [address] EXTRA TUBE - SST (06/20/2022 1:05 AM CDT) athologist [facility] SST TUBE Stored [facility] Comment: SST tubes (Serum Separator) are stored in the lab for 3 days from the collection date. Specimen Anatomical Collection Method Collection Time Receive d Time (Source) Location / / Volume Laterality Blood 06/20/2022 1:05 AM 2 1:05 CDT AM CDT Kingston Castañeda MD LABORATORY Performing Organization Address City/[facility]/ZIP Code Phon e Number [facility] [place], [place] [id number] [place] [address] ANTI XA HEPARIN UNFRACTIONATED (06/20/2022 12:19 AM CDT) athologist [facility] Anti XA Hep U 0.44 0.30 - 0.70 [facility] IU/mL Specimen Anatomical Collection Method Collection Time Receive d Time (Source) Location / / Volume Laterality Blood 06/20/2022 12:19 06/20/2022 1:07 AM CDT AM CDT Patrice Hollins MD LABORATORY Performing Organization Address City/State/ZIP Code Phon e Number [facility] [place] [address] [place] [address] [place] [address] (ABNORMAL) POC GLUCOSE (06/19/2022 8:57 PM CDT) P athologist Signature POC Glucose 126 (H) 70 - 100 [facility] mg/dL CAMPUS - POINT OF CARE Specimen (Source) Anatomical Collection Method Collection Time Re ceived Time Location / / Volume Laterality Blood 06/19/2022 8:57 PM CDT Kingston Castañeda MD LABORATORY Performing Organization Address City/State/ZIP Code Phon e Number [facility] [place] - POINT OF CARE [address] [place] [phone] XR FOOT RIGHT 3 V AP/OBL/LAT* (06/19/2022 [...] XA Hep U 0.25 (L) 0.30 - [facility] 0.70 IU/mL Specimen Anatomical Collection Method Collection Time Receive d Time (Source) Location / / Volume Laterality Blood 06/19/2022 5:27 PM 6:07 CDT PM CDT Patrice Hollins MD LABORATORY Performing Organization Address City/[facility]/ZIP Code Phon e Number [facility] [place] [address] (ABNORMAL) POC GLUCOSE (06/19/2022 4:01 PM CDT) athologist Signature POC Glucose 159 (H) 70 - 100 [facility] mg/dL CAMPUS - POINT OF CARE Specimen (Source) Anatomical Collection Method Collection Time Re ceived Time Location / / Volume Laterality Blood 06/19/2022 4:01 PM CDT Kingston Castañeda MD LABORATORY Performing Organization Address City/[facility]/ZIP Code Phon e Number [facility] - POINT OF CARE [address] [place] [phone] ANTI XA HEPARIN UNFRACTIONATED (06/19/2022 12:51 PM CDT) athologist Signature Anti XA Hep U 0.34 0.30 - 0.70 [facility] IU/mL Specimen Anatomical Collection Method Collection Time Receive d Time (Source) Location / / Volume Laterality Blood 06/19/2022 12:51 06/19/2022 PM CDT 12:59 PM CDT Patrice Hollins MD LABORATORY Performing Organization Address City/[facility]/ZIP Code Phon e Number [facility] [place] [address] PELVIS 3D RECONSTRUCTION (06/19/2022 11:49 [...] POC Glucose 128 (H) 70 - 100 [facility] mg/dL CAMPUS - POINT OF CARE Specimen (Source) Anatomical Collection Method Collection Time Re ceived Time Location / / Volume Laterality Blood 06/19/2022 11:19 AM CDT Kingston Castañeda MD LABORATORY Performing Organization Address City/State/ZIP Code Phon e Number [facility] - POINT OF CARE [address] [place] [address] CT UROGRAM (06/19/2022 11:05 AM CDT) Anatomical [...] POC Glucose 135 (H) 70 - 100 [facility] mg/dL CAMPUS - POINT OF CARE Specimen (Source) Anatomical Collection Method Collection Time Re ceived Time Location / / Volume Laterality Blood 06/19/2022 6:03 AM CDT Kingston Castañeda MD LABORATORY Performing Organization Address City/[facility]/ZIP Code Phon e Number [facility] [place] - POINT OF CARE [address] [place] [phone] (ABNORMAL) ANTI XA HEPARIN UNFRACTIONATED (06/19/2022 5:15 AM CDT) Analysis Performed At Patho logist Time Signature Anti XA Hep U <0.04 (L) 0.30 - [facility] 0.70 IU/mL Specimen Anatomical Collection Method Collection Time Receive d Time (Source) Location / / Volume Laterality Blood 06/19/2022 5:15 AM 6:21 CDT AM CDT Patrice Hollins MD LABORATORY Performing Organization Address City/[facility]/ZIP Code Phon e Number [facility] [place] [address] (ABNORMAL) PANEL BASIC METABOLIC (BMP) (06/19/2022 5:15 AM CDT) athologist Signature CO2 24 22 - 30 [facility] mEq/L Glucose 140 (H) 70 - 100 [facility] mg/dL BUN 12 6 - 20 [facility] mg/dL Creatinine 0.61 (L) 0.70 - 1.25 [facility] mg/dL Calcium 8.4 (L) 8.6 - 10.0 [facility] mg/dL eGFR, High >120 >=60 [facility] ml/min/1.73 m2 Comment: Calculated using CKD-EPI equati on Sodium 139 135 - 148 mEq/L [facility] Potassium 4.5 3.5 - 5.3 mEq/L [facility] Chloride 104 92 - 108 mEq/L [facility] eGFR, Low >120 >=60 ml/min/1.73m2 [facility] Comment: Calculated using CKD-EPI equati on AnGap 11 8 - 16 mEq/L [facility] Specimen Anatomical Collection Method Collection Time Receive d Time (Source) Location / / Volume Laterality Blood 06/19/2022 5:15 AM 2 6:21 CDT AM CDT Patrice Hollins MD LABORATORY Performing Organization Address City/State/ZIP Code Phon e Number [facility] [place], [place] [id number] [place] [address] (ABNORMAL) CBC WITH PLATELET (06/19/2022 5:15 AM CDT) athologist Signature WBC 4.92 4.00 - [facility] 10.00 k/cmm RBC 3.30 (L) 4.60 - 6.00 [facility] m/cmm Hgb 9.4 (L) 13.1 - 17.5 [facility] g/dL Hematocrit 28.0 (L) 40.0 - 51.0 [facility] % MCV 84.8 80.0 - [facility] 100.0 fL MCH 28.5 25.0 - 32.0 [facility] pg MCHC 33.6 31.0 - 36.0 [facility] g/dL RDW 12.8 11.5 - 14.5 [facility] % Plt 227 150 - 400 [facility] k/cmm MPV 10.7 6.5 - 12.5 [facility] fL Specimen Anatomical Collection Method Collection Time Receive d Time (Source) Location / / Volume Laterality Blood 06/19/2022 5:15 AM 6:21 CDT AM CDT Patrice Hollins MD LABORATORY Performing Organization Address City/[facility] Code Phon e Number [facility] [place] [address] (ABNORMAL) ANTI XA HEPARIN UNFRACTIONATED (06/18/2022 11:59 PM CDT) Analysis Performed At Patho logist Time Signature Anti XA Hep U <0.04 (L) 0.30 - [facility] 0.70 IU/mL Specimen Anatomical Collection Method Collection Time Receive d Time (Source) Location / / Volume Laterality Blood 06/18/2022 11:59 06/18/2022 PM CDT 11:59 PM CDT Narrative [facility] - 06/19/2022 12:35 AM CDT Baseline Patrice Hollins MD LABORATORY Performing Organization Address [facility] Phon e Number [facility] [place] [address] (ABNORMAL) POC GLUCOSE (06/18/2022 9:13 PM CDT) P athologist Signature POC Glucose 127 (H) 70 - 100 [facility] mg/dL CAMPUS - POINT OF CARE Specimen (Source) Anatomical Collection Method Collection Time Re ceived Time Location / / Volume Laterality Blood 06/18/2022 9:13 PM CDT Kingston Castañeda MD LABORATORY Performing Organization Address City/[facility]/ZIP Code Phon e Number [facility]AMP[facility] - POINT OF CARE [address] [place] [phone] (ABNORMAL) POC GLUCOSE (06/18/2022 7:03 PM CDT) P athologist Signature POC Glucose 147 (H) 70 - 100 [facility] mg/dL CAMPUS - POINT OF CARE Specimen (Source) Anatomical Collection Method Collection Time Re ceived Time Location / / Volume Laterality Blood 06/18/2022 7:03 PM CDT Kingston Castañeda MD LABORATORY Performing Organization Address City/[facility]/ZIP Code Phon e Number [facility]AMP[facility] - POINT OF CARE [address] [place] [phone] XR C ARM OVER 3 HRS (06/18/2022 [...] Signature POC Glucose 98 70 - 100 [facility] mg/dL CAMPUS - POINT OF CARE Specimen (Source) Anatomical Collection Method Collection Time Re ceived Time Location / / Volume Laterality Blood 06/18/2022 4:15 PM CDT Kingston Castañeda MD LABORATORY Performing Organization Address City/State/ZIP Code Phon e Number [facility] - POINT OF CARE [address] [place] [address] .Post Sedation Immediate (06/18/2022 12:23 PM CDT) [...] the needle into the IVC. A 5 Stateless pigtail flush catheter was advanced over the [...] the needle into the IVC. A 5 Stateless pigtail flush catheter was advanc ed over [...] common femoral vein access. Reading Radiologist: Ronal Ruose Ed Beaver PA-C [facility] (ABNORMAL) POC GLUCOSE (06/18/2022 11:21 AM CDT) athologist Signature POC Glucose 109 (H) 70 - 100 [facility] mg/dL CAMPUS - POINT OF CARE Specimen (Source) Anatomical Collection Method Collection Time Re ceived Time Location / / Volume Laterality Blood 06/18/2022 11:21 AM CDT Kingston Castañeda MD LABORATORY Performing Organization Address City/State/ZIP Code Phon e Number [facility] - POINT OF CARE [address] [place] [phone] (ABNORMAL) ANTI XA HEPARIN UNFRACTIONATED (06/18/2022 10:27 AM CDT) Analysis Performed At Patho logist Time Signature Anti XA Hep U <0.04 (L) 0.30 - [facility] 0.70 IU/mL Specimen Anatomical Collection Method Collection Time Receive d Time (Source) Location / / Volume Laterality Blood 06/18/2022 10:27 06/18/2022 AM CDT 10:32 AM CDT Patrice Hollins MD LABORATORY Performing Organization Address City/State/ZIP Code Phon e Number [facility] [place] [address] XR URETHROGRAM RETROGRADE (06/18/2022 9:14 AM [...] was unremarkable. No extravasatio n was demonstrated. Photogeologist: Kirby Complications: None Fluoroscopy time: 22 seconds [...] urethra was unremarkable. No extravasation was demonstrated. Photogeologist: Kirby Complications: None Fluoroscopy time: 22 seconds Dose: 12 mGy IMPRESSION IMPRESSION: No evidence for anterior ure thral injury. Reading Radiologist: Mario Orr Patrice Hollins MD FL[place]O (ABNORMAL) POC GLUCOSE (06/18/2022 6:26 AM CDT) athologist Signature POC Glucose 125 (H) 70 - 100 [facility] mg/dL [place] - POINT OF CARE Specimen (Source) Anatomical Collection Method Collection Time Re ceived Time Location / / Volume Laterality Blood 06/18/2022 6:26 AM CDT Kingston Castañeda MD LABORATORY Performing Organization Address City/State/ZIP Code Phon e Number [facility] - POINT OF CARE [address] [place] [address] (ABNORMAL) ANTI XA HEPARIN UNFRACTIONATED (06/18/2022 4:50 AM CDT) Analysis Performed At Path logis Time Signature Anti XA Hep U <0.04 (L) 0.30 - [facility] 0.70 IU/mL Specimen Anatomical Collection Method Collection Time Receive d Time (Source) Location / / Volume Laterality Blood 06/18/2022 4:50 AM 2 5:11 CDT AM CDT Patrice Hollins MD LABORATORY Performing Organization Address City/[facility]/ZIP Code Phon e [place] [address] (ABNORMAL) PANEL BASIC METABOLIC (BMP) (06/18/2022 4:50 AM CDT) athologist Signature CO2 23 22 - 30 [facility] mEq/L Glucose 137 (H) 70 - 100 [facility] mg/dL BUN 12 6 - 20 [facility] mg/dL Creatinine 0.66 (L) 0.70 - 1.25 [facility] mg/dL Calcium 8.3 (L) 8.6 - 10.0 [facility] mg/dL eGFR, High >120 >=60 [facility] ml/min/1.73 m2 Comment: Calculated using CKD-EPI equati on Sodium 137 135 - 148 mEq/L [facility] Potassium 3.8 3.5 - 5.3 mEq/L [facility] Chloride 105 92 - 108 mEq/L [facility] eGFR, Low 117 >=60 ml/min/1.73m2 [facility] Comment: Calculated using CKD-EPI equati on AnGap 9 8 - 16 mEq/L [facility] Specimen Anatomical Collection Method Collection Time Receive d Time (Source) Location / / Volume Laterality Blood 06/18/2022 4:50 AM 2 5:11 CDT AM CDT Patrice Hollins MD LABORATORY Performing Organization Address City/[facility] Code Phon e Number [place] [address] (ABNORMAL) CBC WITH PLATELET (06/18/2022 4:50 AM CDT) P athologist Signature WBC 7.80 4.00 - [facility] 10.00 k/cmm RBC 3.37 (L) 4.60 - 6.00 [facility] m/cmm Hgb 9.6 (L) 13.1 - 17.5 [facility] g/dL Hematocrit 28.8 (L) 40.0 - 51.0 [facility] % MCV 85.5 80.0 - [facility] 100.0 fL MCH 28.5 25.0 - 32.0 [facility] pg MCHC 33.3 31.0 - 36.0 [facility] g/dL RDW 13.3 11.5 - 14.5 [facility] % Plt 191 150 - 400 [facility] k/cmm MPV 10.2 6.5 - 12.5 [facility] fL Specimen Anatomical Collection Method Collection Time Receive d Time (Source) Location / / Volume Laterality Blood 06/18/2022 4:50 AM 5:11 CDT AM CDT Patrice Hollins MD LABORATORY Performing Organization Address City/[facility]/ZIP Code Phon e Number [facility] [place] [address] (ABNORMAL) ANTI XA HEPARIN UNFRACTIONATED (06/17/2022 10:34 PM CDT) athologist [facility] Anti XA Hep U 0.22 (L) 0.30 - [facility] 0.70 IU/mL Specimen Anatomical Collection Method Collection Time Receive d Time (Source) Location / / Volume Laterality Blood 06/17/2022 10:34 06/17/2022 PM CDT 11:12 PM CDT Patrice Hollins MD LABORATORY Performing Organization Address City/[facility]/ZIP Code Phon e Number [facility] [place] [address] (ABNORMAL) POC GLUCOSE (06/17/2022 8:43 PM CDT) athologist Signature POC Glucose 132 (H) 70 - 100 [facility] mg/dL CAMPUS - POINT OF CARE Specimen (Source) Anatomical Collection Method Collection Time Re ceived Time Location / / Volume Laterality Blood 06/17/2022 8:43 PM CDT Kingston Castañeda MD LABORATORY Performing Organization Address City/[facility]/ZIP Code Phon e Number [facility] C[facility] - POINT OF CARE [address] [place] [phone] (ABNORMAL) POC GLUCOSE (06/17/2022 3:57 PM CDT) athologist Signature POC Glucose 169 (H) 70 - 100 [facility] MAIN mg/dL CAMPUS - POINT OF CARE Specimen (Source) Anatomical Collection Method Collection Time Re ceived Time Location / / Volume Laterality Blood 06/17/2022 3:57 PM CDT Kingston Castañeda MD LABORATORY Performing Organization Address City/State/ZIP Code Phon e Number [facility] MAIN [place] - POINT OF CARE [address] [place] [address] ULT VENOUS LOWER EXTREMITY BILAT (06/17/2022 3:35 [...] reported to referring provider Nisha Guadalupe via [employer], who responded indicating that the communication was [...] reported to referring provider Nisha Guadalupe via [employer], who responded indicating that the communication was understood. Contact was made at the time of interpretation on 06/17/2022 3:37 PM, wit hin 5 minutes of observation. Reading Radiologist: Lenny Callahan Meredith Guadalupe COOK SEAFOOD, BAKING ASSISTANT ULT (ABNORMAL) POC GLUCOSE (06/17/2022 11:54 AM CDT) P athologist Signature POC Glucose 102 (H) 70 - 100 [facility] MAIN mg/dL CAMPUS - POINT OF CARE Specimen (Source) Anatomical Collection Method Collection Time Re ceived Time Location / / Volume Laterality Blood 06/17/2022 11:54 AM CDT Kingston Castañeda MD LABORATORY Performing Organization Address City/State/ZIP Code Phon e Number [facility] MAIN CAMPUS - POINT OF CARE [address] [place] [address] ANTIBODY SCREEN (06/17/2022 11:46 AM CDT) athologist Signature Sabrina Screen Negative [facility] LAB Specimen Anatomical Collection Method Collection Time Receive d Time (Source) Location / / Volume Laterality Blood 06/17/2022 11:46 06/17/2022 AM CDT 12:06 PM CDT Patrice Hollins MD LAB TRANSFUSION SERVICES Performing Organization Address [facility] Code Phon e Number [facility] [place] [address] BLOOD TYPING-ABO/RH (06/17/2022 11:46 AM CDT) athologist Signature ABORHG A POS [facility] LAB Specimen Anatomical Collection Method Collection Time Receive d Time (Source) Location / / Volume Laterality Blood 06/17/2022 11:46 06/17/2022 AM CDT 12:06 PM CDT Patrice Hollins MD LAB TRANSFUSION SERVICES Performing Organization Address [facility] Phon e Number [facility] [place] [address] POC GLUCOSE (06/17/2022 6:53 AM CDT) athologist Signature POC Glucose 88 70 - 100 [facility] MAIN mg/dL CAMPUS - POINT OF CARE Specimen (Source) Anatomical Collection Method Collection Time Re ceived Time Location / / Volume Laterality Blood 06/17/2022 6:53 AM CDT Kingston Castañeda MD LABORATORY Performing Organization Address City/[facility]/ZIP Code Phon e Number [facility] MAIN CAMPUS - POINT OF CARE [address] [place] [address] (ABNORMAL) POC GLUCOSE (06/17/2022 6:51 AM CDT) athologist Signature POC Glucose 20 (LL) 70 - 100 [facility] MAIN mg/dL CAMPUS - POINT OF CARE Specimen (Source) Anatomical Collection Method Collection Time Re ceived Time Location / / Volume Laterality Blood 06/17/2022 6:51 AM CDT Kingston Castañeda MD LABORATORY Performing Organization Address City/[facility]/ZIP Code Phon e Number [facility] MAIN CAMPUS - POINT OF CARE [address] [place] [address] (ABNORMAL) PANEL BASIC METABOLIC (BMP) (06/17/2022 5:07 AM CDT) athologist Signature CO2 23 22 - 30 [facility] mEq/L Glucose 118 (H) 70 - 100 [facility] mg/dL BUN 13 6 - 20 [facility] mg/dL Creatinine 0.82 0.70 - 1.25 [facility] mg/dL Calcium 8.1 (L) 8.6 - 10.0 [facility] mg/dL eGFR, High >120 >=60 [facility] ml/min/1.73 m2 Comment: Calculated using CKD-EPI equati on Sodium 137 135 - 148 mEq/L [facility] Potassium 3.6 3.5 - 5.3 mEq/L [facility] Chloride 105 92 - 108 mEq/L [facility] eGFR, Low 107 >=60 ml/min/1.73m2 [facility] Comment: Calculated using CKD-EPI equati on AnGap 9 8 - 16 mEq/L [facility] Specimen Anatomical Collection Method Collection Time Receive d Time (Source) Location / / Volume Laterality Blood 06/17/2022 5:07 AM 5:37 CDT AM CDT Kingston Castañeda MD LABORATORY Performing Organization Address City/State/ZIP Code Phon e Number [facility] [place] [address] (ABNORMAL) CBC WITH PLATELET (06/17/2022 5:07 AM CDT) athologist Signature WBC 7.32 4.00 - [facility] 10.00 k/cmm RBC 3.43 (L) 4.60 - 6.00 [facility] m/cmm Hgb 9.8 (L) 13.1 - 17.5 [facility] g/dL Hematocrit 29.4 (L) 40.0 - 51.0 [facility] % MCV 85.7 80.0 - [facility] 100.0 fL MCH 28.6 25.0 - 32.0 [facility] pg MCHC 33.3 31.0 - 36.0 [facility] g/dL RDW 13.3 11.5 - 14.5 [facility] % Plt 181 150 - 400 [facility] k/cmm MPV 10.1 6.5 - 12.5 [facility] fL Specimen Anatomical Collection Method Collection Time Receive d Time (Source) Location / / Volume Laterality Blood 06/17/2022 5:07 AM 5:36 CDT AM CDT Kingston Castañeda MD LABORATORY Performing Organization Address City/State/ZIP Code Phon e Number [facility] [place] [address] (ABNORMAL) POC GLUCOSE (06/16/2022 9:14 PM CDT) athologist Signature POC Glucose 149 (H) 70 - 100 [facility] MAIN mg/dL CAMPUS - POINT OF CARE Specimen (Source) Anatomical Collection Method Collection Time Re ceived Time Location / / Volume Laterality Blood 06/16/2022 9:14 PM CDT Kingston Castañeda MD LABORATORY Performing Organization Address City/[facility]/ZIP Code Phon e Number [facility] MA[facility] [place] - POINT OF CARE [address] [place] [address] XR WRIST RIGHT 3+ PA/OB/LAT/JENS* (06/16/2022 6:58 [...] radius. Reading Radiologist: Indio Cadena Yaritza Gallegos COOK SEAFOOD, BAKING ASSISTANT X-RAY POC GLUCOSE (06/16/2022 6:05 PM CDT) athologist Signature POC Glucose 73 70 - 100 [facility] MAIN mg/dL CAMPUS - POINT OF CARE Specimen (Source) Anatomical Collection Method Collection Time Re ceived Time Location / / Volume Laterality Blood 06/16/2022 6:05 PM CDT Kingston Castañeda MD LABORATORY Performing Organization Address City/[facility]/ZIP Code Phon e Number [facility] - POINT OF CARE [address] [place] [address] POC GLUCOSE (06/16/2022 12:47 PM CDT) athologist Signature POC Glucose 95 70 - 100 [facility] MAIN mg/dL [place] - POINT OF CARE Specimen (Source) Anatomical Collection Method Collection Time Re ceived Time Location / / Volume Laterality Blood 06/16/2022 12:47 PM CDT Kingston Castañeda MD LABORATORY Performing Organization Address City/[facility] Code Phon e Number [facility] - POINT OF CARE [address] [place] [address] XR PELVIS 5V AP/IN/OUTLET/JUDET* (06/16/2022 12:19 PM [...] 06/15/2022. Fluoroscopy time: ??22 seconds Dose:12 mGy [place] protocol was followed. ?? Technique: The patient [...] 06/15/2022. Fluoroscopy time: 22 seconds Dose:12 mGy [place] protocol was followed. Technique: The patient arrived [...] athologist Signature Lactate 0.7 0.7 - 2.1 [facility] mmol/L Specimen Anatomical Collection Method Collection Time Receive d Time (Source) Location / / Volume Laterality Blood 06/16/2022 2:20 AM 2 2:47 CDT AM CDT Narrative [facility] - 06/16/2022 3:06 AM CDT Send specimen on ice! Gideon Dyer MD LABORATORY Performing Organization Address City/State/ZIP Code Phon e Number [facility] [place], [place] [id number] [place] [address] (ABNORMAL) URINALYSIS,TOTAL (06/16/2022 12:20 AM CDT) [facility] Method Time Signature Color YELLOW YELLOW [...] Ur 6-10 (A) 0 - 5 perHPF [facility] RBC Ur 11-20 (A) 0 - 3 perHPF [facility] SQ EPITH 0-5 0 - 5 perHPF [facility] Mucus 1+ perLPF [facility] Sperm PRESENT [facility] Bacteria UA PRESENT [facility] Comment: Presence of bacteria does not n ecessarily indicate a UTI. The presence of bacteria can indicate a non-clean catch urine specimen. Bacteria should be used in conjunction with other UA results and cl inical presentation to assist in diagnosing an infection. Urinalysis Performed at: [facility] Specific [place] 1.010 1.003 - 1.030 [facility] Specimen Anatomical Collection Method Collection Time Receive d Time (Source) Location / / Volume Laterality Urine 06/16/2022 12:20 06/16/2022 AM CDT 12:39 AM CDT Gideon Dyer MD LABORATORY Performing Organization Address City/State/ZIP Code Phon e Number [facility] [place] [address] XR PELVIS AP* (06/15/2022 11:21 PM [...] canal or neural foraminal stenosis. 3. Suspected [place] syndrome on the left. Reading [...] visualized paraspi nous tissues is noted. Suspected [place] syndrome on left. Procedure Note [...] visualized paraspi nous tissues is noted. Suspected [place] syndrome on left. IMPRESSION Impression: 1. No fracture or subluxation of the cer vical vertebrae. 2. No significant spinal canal or neural foraminal stenosis. 3. Suspected [place] syndrome on the left. Reading [...] styloid process, which can be seen in [place] syndrome. The visualized portions of [...] styloid process, which can be seen in [place] syndrome. The visualized portions of [...] CDT) P athologist Signature CASTAÑEDA TUBE Stored [facility] Comment: Castañeda top (Sodium flouride) tube s are stored in the lab for 3 days from the collection date. Specimen Anatomical Collection Method Collection Time Receive d Time (Source) Location / / Volume Laterality Blood 06/15/2022 7:20 PM 7:31 CDT PM CDT Kingston Castañeda MD LABORATORY Performing Organization Address City/State/ZIP Code Phon e Number [facility] [place] [address] EXTRA TUBE - SST (06/15/2022 7:20 PM CDT) athologist Signature SST TUBE Stored [facility] Comment: SST tubes (Serum Separator) are stored in the lab for 3 days from the collection date. Specimen Anatomical Collection Method Collection Time Receive d Time (Source) Location / / Volume Laterality Blood 06/15/2022 7:20 PM 2 7:31 CDT PM CDT Kingston Castañeda MD LABORATORY Performing Organization Address City/[facility]/ZIP Code Phon e Number [facility] [place] [address] HS TROPONIN (06/15/2022 7:20 PM CDT) athologist [facility] HS Troponin I 4 <=34 ng/L [facility] Specimen Anatomical Collection Method Collection Time Receive d Time (Source) Location / / Volume Laterality Blood 06/15/2022 7:20 PM 2 7:41 CDT PM CDT Narrative [facility] - 06/15/2022 8:11 PM CDT First Occurrence of the Troponin order i s to be drawn Stat by Nursing staff on the unit. Gideon Dyer MD LABORATORY Performing Organization Address City/[facility]/ZIP Code Phon e Number [facility] [place] [address] (ABNORMAL) PTT (APTT) (06/15/2022 7:20 PM CDT) athologist [facility] APTT 21.4 (L) 25.0 - 37.0 [facility] sec Specimen Anatomical Collection Method Collection Time Receive d Time (Source) Location / / Volume Laterality Blood 06/15/2022 7:20 PM 2 7:41 CDT PM CDT Gideon Dyer MD LABORATORY Performing Organization Address City/[facility]/ZIP Code Phon e Number [facility] [place] [address] PROTHROMBIN (PT) & INR (06/15/2022 7:20 PM CDT) athologist [facility] PT 11.9 9.0 - 12.5 [facility] sec INR 1.0 0.8 - 1.1 [facility] Specimen Anatomical Collection Method Collection Time Receive d Time (Source) Location / / Volume Laterality Blood 06/15/2022 7:20 PM 7:41 CDT PM CDT Gideon Dyer MD LABORATORY Performing Organization Address City/[facility] Phon e Number [facility] [place] [address] COVID-19 SURVEILLANCE (06/15/2022 7:20 PM CDT) [facility] Method Time Signature COVID-19 Not Detected Not Detected [facility] Comment: This test was developed and its performa nce characteristics determined by [facility]. This testing, RT-PCR, has been authorized by [...] 06/15 PM CDT 7:32 PM CDT Narrative [facility] - 06/15/2022 8:08 PM CDT Preferred specimen is Nasopharyngeal swab Is the patient a healthcare employee: No Is the patient a [employer] ([facility]) Employee : No Gideon Dyer MD LABORATORY Performing Organization Address City/[facility] Code Phon e Number [facility] [place] [address] PRECAUTIONARY TUBE (06/15/2022 7:20 PM CDT) Patholo gist Method Time Signature Prec Tube Precautionary [facility] Blood Bank Specimen Received. Specimen Anatomical Collection Method Collection Time Receive d Time (Source) Location / / Volume Laterality Blood 06/15/2022 7:20 PM 2 7:43 CDT PM CDT Gideon Dyer MD LAB TRANSFUSION SERVICES Performing Organization Address City/[facility]/ZIP Code Phon e Number [facility] [place] [address] LACTATE (LACTIC ACID) (06/15/2022 7:20 PM CDT) athologist [facility] Lactate 1.4 0.7 - 2.1 [facility] mmol/L Specimen Anatomical Collection Method Collection Time Receive d Time (Source) Location / / Volume Laterality Blood 06/15/2022 7:20 PM 2 7:30 CDT PM CDT Narrative [facility] - 06/15/2022 7:30 PM CDT Send specimen on ice! Gideon Dyer MD LABORATORY Performing Organization Address City/State/ZIP Code Phon e Number [facility] [place] [address] (ABNORMAL) FIBRINOGEN (06/15/2022 7:20 PM CDT) athologist [facility] Fibrinogen 199 (L) 200 - 400 [facility] mg/dL Specimen Anatomical Collection Method Collection Time Receive d Time (Source) Location / / Volume Laterality Blood 06/15/2022 7:20 PM 2 7:41 CDT PM CDT Gideon Dyer MD LABORATORY Performing Organization Address City/State/ZIP Code Phon e Number [facility] [place] [address] ED HEMOGLOBIN TOTAL (ED ONLY) (06/15/2022 7:20 PM CDT) athologist Signature Hgb 13.7 13.1 - 17.5 [facility] g/dL Specimen Anatomical Collection Method Collection Time Receive d Time (Source) Location / / Volume Laterality Blood 06/15/2022 7:20 PM 2 7:30 CDT PM CDT Gideon Dyer MD LABORATORY Performing Organization Address [facility]/ZIP [facility] [place] [address] (ABNORMAL) ED CHEMISTRY LABS(NA,K,CL,CO2,GLU,CREAT,CA-IONIZED,ANION GAP) (06/15/2022 7:20 PM CDT) Analysis Performed At Patho logist Time Signature Sodium 140 135 - 148 [facility] mEq/L Chloride 109 (H) 92 - 108 [facility] mEq/L AnGap 8 8 - 16 [facility] mEq/L Glucose 186 (H) 70 - 100 [facility] mg/dL ICA, Actual 4.44 4.40 - [facility] 5.20 mg/dL ICA, pH 4.28 (L) 4.40 - [facility] Corrected 5.20 mg/dL Creatinine 1.00 0.70 - [facility] 1.25 mg/dL BICARB 24 22 - 26 [facility] mEq/L eGFR, High 105 >=60 [facility] ml/min/1.7 3m2 Comment: Calculated using CKD-EPI equati on eGFR, Low 90 >=60 ml/min/1.73m2 [facility] Comment: Calculated using CKD-EPI equati on Potassium 3.6 3.5 - 5.3 mEq/L [facility] Specimen Anatomical Collection Method Collection Time Receive d Time (Source) Location / / Volume Laterality Blood 06/15/2022 7:20 PM 7:30 CDT PM CDT Gideon Dyer MD LABORATORY Performing Organization Address [facility]/ZIP Code Phon e Number [facility] [place] [address] (ABNORMAL) CBC WITH PLTS/AUTO DIFF (06/15/2022 7:20 PM CDT) Patholo gist Method Time Signature WBC 14.21 (H) 4.00 - [facility] 10.00 k/cmm RBC 4.65 4.60 - [facility] 6.00 m/cmm Hgb 13.0 (L) 13.1 - [facility] 17.5 g/dL Hematocrit 39.7 (L) 40.0 - [facility] 51.0 % MCV 85.4 80.0 - [facility] 100.0 fL MCH 28.0 25.0 - [facility] 32.0 pg MCHC 32.7 31.0 - [facility] 36.0 g/dL RDW 13.2 11.5 - [facility] 14.5 % Plt 294 150 - 400 [facility] k/cmm MPV 10.6 6.5 - 12.5 [facility] fL Automated Abs 10.31 (H) 1.70 - [facility] Neutrophil 6.50 k/cmm Comment: Preliminary ANC, Final Result t o Follow Abs Immature Granulocyte 0.26 (H) 0.00 - 0.09 k/cmm [facility] Comment: The Immature Granulocyte Absolu te count contains metamyelocytes and myelocytes. Abs Neutrophil 10.31 (H) 1.70 - 6.50 k/cmm [facility] [place] B Abs Lymphocyte 2.74 0.80 - 4.00 k/cmm [facility] B Abs Monocyte 0.67 0.20 - 1.00 k/cmm [facility] Abs Eosinophil 0.20 0.00 - 0.60 k/cmm [facility] B Abs Basophil 0.03 0.00 - 0.20 k/cmm [facility] Specimen Anatomical Collection Method Collection Time Receive d Time (Source) Location / / Volume Laterality Blood 06/15/2022 7:20 PM 2 7:41 CDT PM CDT Gideon Dyer MD LABORATORY Performing Organization Address City/State/ZIP Code Phon e Number [facility] [place] [address] BLOOD GASES (06/15/2022 7:20 PM CDT) P athologist Signature PH Anish 7.33 7.32 - 7.42 [facility] PCO2 Anish 46 41 - 51 [facility] mmHG PO2 Anish 35 25 - 40 [facility] mmHG Bicarb Anish 24 24 - 28 [facility] mEq/L O2 Sat Anish 62 % [facility] Base Exc Anish -2.9 -10.0 - 2.0 [facility] mEq/L Specimen Anatomical Collection Method Collection Time Receive d Time (Source) Location / / Volume Laterality Blood Venous 06/15/2022 7:20 PM 2 7:30 CDT PM CDT Gideon Dyer MD LABORATORY Performing Organization Address City/State/ZIP Code Phon e Number [facility] [place] [address] Center [address] [facility] ED US CRITICAL CARE (06/15/2022 [...] Given 06/26/2022 8:37 PM CDT 5 mg [facility] MED REC REVIEW BY PHARMACY Discharge Date: [...] (COMPLETED) 1233 (New Bag - Provider: Leonides Wynn, RASHEL)1303 (Infusion completed - Provider: Vargas Whitman RN) [...] Adamson RN) 0827 (Given - Provider: Vargas hollis, RASHEL)135 (Given - Provider: Vargas Whitman, RASHEL)203 (Given - Provider: Shanice Nieves RN) 0924 [...] 09 (Given - Provider: Vargas hollis RN) 1 [...] Shanice Nieves RN)0924 (Given - Provider: Vargas Whtiman RN) 5-10 mg, Oral, Q4H PRN, Starting [...]
--- OUTSIDE RECORDS SUMMARY | 2022-07-20 07:01 | XMS_ITS | Encounter Summary ---
:1975 Author Organization [facility] Address [address] [facility] [place] [place] [address] Phone Care Team Providers Name Role Phone Unavailable Primary Care Provider Unavailable Reason for Visit Reason Comments Arm Laceration Encounter Details Date Type Department Care Team Description 05/07/2007 Nurse Only [facility] Burn/Wound Clin ic Joce Mason MD [address] [facility] Mail Code [address] [place] [address] Open Wound of Arm [address] [facility] , [facility] Nurse [id number] (Primary Dx) P4.670 [place], [place] [address] Social History Tobacco Use Types [...] RADIOLOGY Roosevelt Brown MD [address] [place] [address] Scheduled 1, [place] [address] [place] [address] 07/22/2022 Office Visit ORTHOPEDICS Miri Matthew MD [address] [place] [address] Scheduled 1, [place] [address] [place] [address] 07/22/2022 Office Visit Interventional Radiology Provider, Int Ra d 1, [place] [address] [place] [address] 07/25/2022 Appointment RADIOLOGY Patrice Hollins MD [address] [address] Scheduled 1, [place] [address] [place] [address] 07/25/2022 Office Visit NEUROSURGERY Briana Kaplan PA -C [address] [place] [address] Scheduled 1, [place] [address] [place] [address] 07/25/2022 Appointment PHYSICAL MEDICINE AND REHAB Lore Aguilar, PT Scheduled [address] [place], [place] [address] (Wo rk) 08/05/2022 Appointment ORTHOPEDICS 1, [place] Scheduled 1 [place] [address] 08/05/2022 Appointment RADIOLOGY Roosevelt Brown MD [address] [place] [address] Scheduled 1, [place] [address] [place] [address] 08/05/2022 Appointment RADIOLOGY Roosevelt Brown MD [address] [place] [phone] Scheduled 1, [place] [address] [place] [address] 08/05/2022 Office Visit ORTHOPEDICS Roosevelt Brown MD [address] [place] [address] Scheduled 1, [place] [address] [place] [address] documented as of this encounter Visit Diagnoses Diagnosis Open wound of arm - Primary Multiple and unspecified open wound of u pper limb, without mention of complication documented in this encounter
--- OUTSIDE RECORDS SUMMARY | 2022-07-20 07:01 | XMS_ITS | Encounter Summary ---
:1975 Author Organization [facility] Address [address] [facility] 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 Applied silver nitrate to hypertrophic tissue.Pt will do daily wd care. Possibly will be healed by next visit. documented in this encounter Plan of Treatment Upcoming Encounters Date Type Specialty Care Team Description 07/22/2022 Appointment RADIOLOGY Roosevelt Brown MD [address] [place] [phone] Scheduled 1, Isd-North Korean [address] [place] [address] 07/22/2022 Office Visit ORTHOPEDICS Miri Matthew MD [address] [place] [address] Scheduled 1, Isd-North Korean [address] [place] [address] [phone] 07/22/2022 Office Visit Interventional Radiology Provider, Int Ra d 1, Isd-[place] Korean [address] [place] [address] 70[address] 07/25/2022 Appointment RADIOLOGY Patrice Hollins MD [address] [place] [address] [phone] Scheduled 1, Isd-North Korean [address] [place] [address] 57010 07/25/2022 Office Visit NEUROSURGERY Briana Kaplan PA -C [address] [place] [address] [phone] Scheduled 1, Isd-North Korean [address] [place] [address] 737[address] 07/25/2022 Appointment PHYSICAL MEDICINE AND REHAB Lore Aguilar, PT Scheduled [address] [place] [phone] (Wo rk) 08/05/2022 Appointment ORTHOPEDICS 1, Isseverino-North Korean Scheduled [address] [place] [address] 08/05/2022 Appointment RADIOLOGY Roosevelt Brown MD [address] [place] [address] [phone] Scheduled 1, Isd-North Korean [address] [place] [address] 08/05/2022 Appointment RADIOLOGY Roosevelt Brown MD [address] [place] [address] [phone] Scheduled 1, Isd-North Korean [address] [place] [address] 08/05/2022 Office Visit ORTHOPEDICS Roosevelt Brown MD [address] [place] [phone] Scheduled 1, Isd-North Korean [address] [place] [address] documented as of this encounter Visit Diagnoses Diagnosis Open wound of arm - Primary Multiple and unspecified open wound of u pper limb, without mention of complication documented in this encounter
--- OUTSIDE RECORDS SUMMARY | 2022-07-20 07:01 | XMS_ITS | Encounter Summary ---
:1975 Author Organization [facility] Address [address] [place] [address] Phone Care Team Providers Name Role Phone Unavailable Primary Care Provider Unavailable Reason for Visit Reason Comments Wound Encounter Details Date Type Department Care Team Description 04/08/2007 Nurse Only [facility] Burn/Wound Clin ic Joce Mason MD [address] [facility] Mail [address] [place] [address] Abrasion or Friction [facility] [facility] Nurse [address] Burn of Forearm without P4.670 Infection (Primary Dx) [place], [place] [address] Social History Tobacco Use Types [...] 07/22/2022 Appointment RADIOLOGY Roosevelt Brown MD [address] [phone] Scheduled 1, Isd-Maldivian [address] [place] [address] 07/22/2022 Office Visit ORTHOPEDICS Miri Matthew MD [address] [place] [address] Scheduled 1, Isd-Maldiv[place] [address] [place] [address] 07/22/2022 Office Visit Interventional Radiology Provider, Int Ra d 1, Isd-[place]div[place] [address] [place] [address] 26046 07/25/2022 Appointment RADIOLOGY Patrice Hollins MD [address] [place] [phone] Scheduled 1, Isd-Maldiv[place] [address] [place] [address] 07/25/2022 Office Visit NEUROSURGERY Briana Kaplan PA -C [address] [place] [address] Scheduled 1, Isd-Maldivian [address] [place] [address] 07/25/2022 Appointment PHYSICAL MEDICINE AND REHAB Lore Aguilar, PT Scheduled [address] [place] [address] (Wo rk) 08/05/2022 Appointment ORTHOPEDICS 1, Isd-Maldivian Scheduled [address] [place] [address] 08/05/2022 Appointment RADIOLOGY Roosevelt Brown MD [address] [place] [address] Scheduled 1, Isd-Maldivian [address] [place] [address] 08/05/2022 Appointment RADIOLOGY Roosevelt Brown MD [address] [place] [address] Scheduled 1, Isd-Maldivian [address] [place] [address] 08/05/2022 Office Visit ORTHOPEDICS Roosevelt Brown MD [address] [place] [address] 12946 Scheduled 1, Isd-Maldivian [address] [place] [address] documented as of this encounter Visit Diagnoses Diagnosis Abrasion or friction burn of forearm wit hout infection - Primary Elbow, forearm, and wrist, abrasion or f riction burn, without mention of infection documented in this encounter
[2022-07-20 07:02] VITALS: BP 157/95; PULSE 81; O2SAT 100
[2022-07-20 08:00] VITALS: PULSE 84; O2SAT 97
[2022-07-20 08:02] VITALS: BP 143/96; PULSE 88; TEMP 36.9; O2SAT 98
== END 2022-07-20 08:32 | disposition home or self-care (01) ==
PROVIDERS: Emergency Provider Family Medicine; PCP Family Medicine
DX: G89.18 Other acute postprocedural pain (principal)
CPT/HCPCS: 99283; A9270

== ENCOUNTER 2022-07-23 18:22 | Emergency (ER) | payer MEDICAID, SELFPAY ==
--- NOTE | 2022-07-23 18:42 | ED.GENADULT ---
HPI - General Adult General Date Seen: 07/23/22 Chief complaint: Extremity Pain/Injury, Lower Stated complaint: Post Op Pain Time Seen by Provider: 07/23/22 18:42 Source: patient, RN notes reviewed and old records reviewed Mode of arrival: ambulatory Limitations: no limitations History of Present Illness HPI narrative: Martin is a very pleasant 46-year-old gentleman who sustained significant pelvic and lumbar and thoracic injuries when he fell 20 ft approximately 5 weeks ago when helping a friend work on a pole shed who complains of low back and right leg pain. Patient has had persistent right leg pain since the injury. He was seen 3 times at [facility] the last time with x-rays that did not show any new injury. This is the 3rd time he has been in the [place] emergency room. The previous 2 times he did receive pain medications. Tonight he has ongoing pain worsened by movement. He shows the area to be his right lateral sacral and pelvic area but notes that he has a good looking lip incision and no signs of infection. He notes that the pain radiates down the back of his leg and into his foot. He has not sustained any subsequent fall. He denies any fevers or chills. When patient fell, he sustained compression fractures of the thoracic and lumbar spine as well as multiple pelvic fractures. unfortunately he developed DVT and has a filter protecting from the right lower extremity nonocclusive clot. He is currently on Eliquis as well. Patient's also notes that he occasionally has cold feeling of his right lower leg. He notes that he received an injection after previous visit and this relieved those symptoms. He currently is taking gabapentin, prednisone, diabetic medications, Flexeril and has Percocet. He notes the pain is definitely exacerbated with attempting to stand. His best position with most relief is when he is lying supine. Patient is noted to have fallen 20 ft off of a pole barn roof 4 he was helping his friend. Landing on his right hip. Related Data Home Medications Medication Instructions Recorded Confirmed acetaminophen 325 mg capsule 325 mg PO Q6H PRN 07/17/22 07/23/22 cyclobenzaprine 5 mg tablet 5 mg PO Q8H 07/17/22 07/23/22 gabapentin 400 mg capsule 400 mg PO TID 07/17/22 07/23/22 melatonin 3 mg tablet 3 mg PO DAILY 07/17/22 07/17/22 rivaroxaban 15 mg tablet (Xarelto) 15 mg PO BID 07/17/22 07/23/22 sennosides 8.6 mg capsule (senna) 8.6 mg PO DAILY 07/17/22 07/23/22 tamsulosin 0.4 mg capsule 0.4 mg PO DAILY 07/17/22 07/17/22 tramadol 50 mg tablet 50 mg PO QHS 07/17/22 07/17/22 glipizide 07/23/22 metformin 07/23/22 Previous Rx's Medication Instructions Recorded naproxen 375 mg tablet,delayed 375 mg PO BID PRN pain #20 tabs 07/20/22 release oxycodone-acetaminophen 5 mg-325 1 - 2 tab PO Q6-8H PRN pain #21 07/20/22 mg tablet (Percocet) tabs prednisone 20 mg tablet 40 mg PO DAILY 6 days #12 tabs 07/20/22 sennosides 8.6 mg tablet (senna) 8.6 mg PO DAILY take daily if 07/20/22 taking opioids #30 tabs Allergies Allergy/AdvReac Type Severity Reaction Status Date / Time No Known Drug Allergies Allergy Verified 07/23/22 18:51 Review of Systems Narrative: Patient denies fevers or chills. Denies blood in his urine loss of bowel or bladder control [facility] Social History Smoking Status: Never smoker Do you use any of these nicotine containing products: None Second hand tobacco smoke exposure: No How often do you have a drink containing alcohol: never How often do you have six or more drinks on one occasion: Never AUDIT-C Alcohol total score: 0 Non-prescribed substance use: denies use service: No Exam Narrative: Exam Narrative: patient is alert and oriented. Heart with regular rate and rhythm and lungs are clear to auscultation. No acute distress. Movement around on the bed does not seem to greatly increases discomfort. Abdomen soft nontender. Examination of his lower extremities show no evidence of edema. Patient's lower extremities strength is symmetrical and intact including knee flexion knee extension hip flexion Wilhelm and plantar flexion of the ankle and the great toe. Sensation is also intact. Const: Vital Signs, click to edit/add: Vital Signs - 24 hr 07/23/22 18:46 07/23/22 21:20 Temperature 98.7 F Pulse Rate [Right Pulse Oximeter] 121 H 99 Respiratory Rate 18 16 Blood Pressure [Le ft Upper Arm] 146/104 H 139/97 H Pulse Oximetry 99 99 Oxygen Delivery Me thod Room Air Course Course Hospital Course: Patient has had complete resolution of his pain while lying down. Vital Signs Vital signs: Initial Vital Signs Temperature 98.7 F 07/23/22 18:46 Temperature Source Temporal Artery Scan 07/23/22 18:46 Pulse Rate 121 H 07/23/22 18:46 Respiratory Rate 18 07/23/22 18:46 Blood Pressure 146/104 H 07/23/22 18:46 Blood Pressure Mean 118 07/23/22 18:46 Blood Pressure Position Sitting 07/23/22 18:46 Pulse Oximetry 99 07/23/22 18:46 Vital Signs Temperature 98.7 F 07/23/22 18:46 Pulse Rate 121 H 07/23/22 18:46 Respiratory Rate 18 07/23/22 18:46 Blood Pressure 146/104 H 07/23/22 18:46 Pulse Oximetry 99 07/23/22 18:46 Temperature 98.7 F 07/23/22 18:46 Pulse Rate 99 07/23/22 21:20 Respiratory Rate 16 07/23/22 21:20 Blood Pressure 139/97 H 07/23/22 21:20 Pulse Oximetry 99 07/23/22 21:20 Oxygen Delivery Method 07/23/22 21:20 Medical Decision Making MDM Narrative Medical decision making narrative: 1. Low back and right leg pain. Patient is noted to have complete resolution of his pain while he is lying down. CTs tonight do show that he has increased displacement of the right pubic ramus Compared to previous. There is no evidence of unusual hematoma. No change in compression fractures as well compared to previous CTs. At this time patient does have pain medication including Percocet, gabapentin. When he is lying supine he is pain-free and therefore I am choosing not had any additional medications. We have made copies of the CT of lumbar spine and pelvis so that his trauma surgeons are able to view this on ThursdayJuly 25 when he has his follow-up appointment. In the meantime patient will likely rest in bed, limit standing. He is advised to limit any twisting while he is in bed. We did talk about moving his lower extremities while he is in bed. He is on Xarelto and previous appointment shows a nonocclusive clot in the right calf. His lower extremity is warm at this time with good pedal pulse. 2. Disposition - patient does feel comfortable going home. Recommend taking pain medication prior to his trip in the [place] trauma surgical follow-up. Of course, the if the onset of new symptoms occur such as fever chills loss of bowel or bladder control would have him return to the emergency room. I did explain we are unable to do MRI eyes or further imaging beyond the CT at this time. Laboratory values reassuring with normal white count . Medical Records Medical records reviewed: Yes I reviewed the patient's medical records Lab Data Lab results reviewed: Yes I reviewed the patient's lab results Labs: Lab Results 07/23/22 07/23/22 Range/Units 19:58 19:58 WBC 8.85 (4.50-11.00) K/uL RBC 4.14 L (4.30-5.90) m/uL Hgb 12.3 L (13.5-17.5) gm/dL Hct 35.7 L (37.0-53.0) % MCV 86 (80-100) fL MCH 30 (26-34) pg MCHC 35 (32-36) gm/dL Plt Count 273 (140-440) K/uL Neut % (Auto) 69.4 (42.0-72.0) % Lymph % (Auto) 24.1 (20-44) % [place] % (Auto) 5.3 (0.0-11.0) % Eos % (Auto) 0.6 (0.0-7.0) % Baso % (Auto) 0.1 (0.0-3.0) % Neut # (Auto) 6.10 (1.7-7.0) K/uL Lymph # (Auto) 2.10 (0.90-2.90) K/uL [place] # (Auto) 0.50 (0.00-0.90) K/UL Eos # (Auto) 0.10 (0.00-0.50) K/uL Baso # (Auto) 0.00 (0.00-0.30) K/uL Sodium 134 L (135-149) mmol/L Potassium 3.9 (3.6-5.1) mmol/L Chloride 98 (96-114) mmol/L Carbon Dioxide 27 (20-32) mmol/L BUN 18 (5-24) mg/dL Creatinine 0.5 (0.5-1.5) mg/dL Estimated Creat Clear 162.29 Estimated GFR 128 ml/min Glucose 172 H (60-115) mg/dL Calcium 9.7 (8.4-10.6) mg/dL C-Reactive Protein 0.6 (0.5-1.0) mg/dL Imaging Data lumbar CT: Attestation: I have reviewed the pertinent imaging results. Radiologist's impression: Compression fracture of the T12 vertebral body involving both the superior and inferior endplates, with approximately 50 percent body height loss. Overall appearance is not significantly changed compared to prior study. There is no significant retropulsion or central canal stenosis. Healing bilateral posterior 12th rib fractures. Healing right L1 and L2 transverse process fractures. Comminuted right L4 and L5 transverse process fractures. IVC filter is noted. CT scan - pelvis: Attestation: I have reviewed the pertinent imaging results. Radiologist's impression: rPostsurgical changes of transverse screw fixation across the sacrum. Comminuted displaced right inferior pubic ramus fracture with evidence of early healing. On prior radiograph, there are subtle fracture lines at the right inferior pubic ramus with an avulsed fracture fragment inferiorly, although no displacement was previously seen. Comminuted right anterior acetabular fracture, also seen on prior study. Multiple comminuted right sacral ala fractures, previous obscured by overlying bowel gas. There is slight anterior offset of the right pubic symphysis. Heterotopic ossification superior to the right hip, unchanged. Discharge Plan Discharge Clinical Impression: Multiple pelvic fractures, Low back pain, Closed compression fracture of lumbar vertebra, Leg pain, right Patient Disposition: Home w/ Parent or Adult Condition: Improved Additional Instructions: bring the CT of your lumbar and pelvic images to your appointment on Thursday. Because you have no pain when lying down try to spend more time in bed. You may remove your brace if needed. Do not twist body if needing to get out of bed or sit up. Return to the emergency room for onset of new symptoms and as needed traiga la tomograf?a computarizada de caitlin im?genes lumbares y p?lvicas a bright jeniffer el viernes. Thayer no siente dolor al acostarse, intente pasar m?s tiempo en la cama. Puede quitarse el aparato ortop?dico si es necesario. No gire el cuerpo si necesita levantarse de la cama o sentarse. Regrese a la irasema de emergencias por la aparici?n de nuevos s?ntomas y seg?n sea necesario.. Prescriptions: No Action sennosides [senna] 8.6 mg tablet 8.6 mg PO DAILY Qty: 30 0RF oxycodone-acetaminophen [Percocet] 5-325 mg tablet 1 - 2 tab PO Q6-8H PRN (Reason: pain) Qty: 21 0RF naproxen 375 mg tablet,delayed release (DR/EC) 375 mg PO BID PRN (Reason: pain) Qty: 20 0RF prednisone 20 mg tablet 40 mg PO DAILY 6 Days Qty: 12 0RF Xarelto 15 mg tablet 15 mg PO BID Rx Instructions: must administer with a meal/food senna 8.6 mg capsule 8.6 mg PO DAILY tramadol 50 mg tablet 50 mg PO QHS gabapentin 400 mg capsule 400 mg PO TID melatonin 3 mg tablet 3 mg PO DAILY acetaminophen 325 mg capsule 325 mg PO Q6H PRN cyclobenzaprine 5 mg tablet 5 mg PO Q8H tamsulosin 0.4 mg capsule 0.4 mg PO DAILY metformin glipizide Follow Up/Referrals: Gideon Alston MD [Primary Care Provider] - Stand Alone Forms: [employer] Info Instructions
[2022-07-23 18:46] VITALS: BP 146/104; PULSE 121; RESP 18; TEMP 37.1; O2SAT 99; BMI 29.0
--- NOTE | 2022-07-23 19:23 | CRLHL7_ITS ---
For Patients: As a result of the Century Cures Act, medical imaging exams and procedure reports are released immediately into your electronic medical record. You may view this report before your referring provider. If you have questions, please contact your health care provider. Indication: FALL 4-5 WEEKS AGO Technique: Noncontrast CT pelvis Please note that all CT scans at this facility use dose modulation, iterative reconstruction, and/or weight-based dosing when appropriate to reduce radiation dose to as low as reasonably achievable. Comparison: Radiographs from [facility] 07/14/2022 Findings: Displaced right inferior pubic ramus fracture is present. There is also a comminuted fracture of the right high superior pubic ramus. Densities are present adjacent to the left medial pubic bone. Fixation hardware traverses the right sacroiliac joint and right sacrum extending across the left SI joint. There is a comminuted and displaced right sacral fracture. Fracture deformity of the right lateral acetabulum. Bone island in the right femoral head. The femoral neck is intact bilaterally. No suspicious osseous lesion. Fracture of the right L5 transverse process noted. No pelvic soft tissue mass. Impression: Multifocal fractures of the right pubic rami, right lateral acetabulum and right sacrum along with the right L5 and L4 transverse processes are similar to the prior examination. Intact hardware about the right SI joint and right sacrum. No femoral neck fracture or soft tissue mass. Please note that all CT scans at this facility use dose modulation, iterative reconstruction, and/or weight-based dosing when appropriate to reduce radiation dose to as low as reasonably achievable. Dictated by Roosevelt Cotton MD @ 07/24/2022 11:27:19 AM (Electronically Signed)
--- NOTE | 2022-07-23 19:26 | CRLHL7_ITS ---
For Patients: As a result of the Century Cures Act, medical imaging exams and procedure reports are released immediately into your electronic medical record. You may view this report before your referring provider. If you have questions, please contact your health care provider. INDICATION: Fall 4-5 weeks ago. TECHNIQUE: CT of the lumbar spine without contrast. Coronal and sagittal reformats are included. COMPARISON: Lumbar spine radiographs from 07/14/2022. FINDINGS: Transitional lumbosacral junction with bilateral L5 transverse process sacral ala pseudoarticulations. Right-sided pseudoarticulation is not readily apparent due to the fracture detailed below. T12 wedge compression fracture with moderate, around 50 percent height loss anteriorly. Mild fragmentation of the anterior superior vertebral body corner as well as the inferior endplate. No retropulsion. Indistinctness of fracture lines suggests subacute age. Partially healed bilateral T12 posterior rib fractures. Nondisplaced partially healed right-sided L1 and L2 transverse process fractures. Mildly displaced right-sided L4 transverse process fracture with associated callus formation compatible with partial healing. Right L5 transverse process fracture which is extensively comminuted and also exhibits callous formation compatible with partial healing. Displaced bone fragments extend into the right L5-S1 neuroforamen, potentially impinging the right L5 nerve root. Extensively comminuted fracture involving the right-sided sacral ala with multiple displaced osseous fragments, although none which particularly encroach upon the ventral/dorsal sacral neural foramina. Displaced fragments and callus formation are present within the right gluteal soft tissues posterior to the SI joint, as well as extending inferiorly into the right piriformis region. The fracture crosses the right aspect of the sacroiliac joint instrumented fusion construct. No right SI joint diastasis. Findings at individual levels as follows: T12-L1: Bulky right anterior lateral paravertebral disc osteophyte. Mild disc bulge. No spinal canal or neural foraminal stenosis. L1-2: Mild disc bulge with overlying osteophytic ridging, asymmetric to the left. No spinal canal or neural foraminal stenosis. L2-3: Mild disc bulge. No spinal canal or neural foraminal stenosis. L3-4: Mild disc bulge. No spinal canal or neural foraminal stenosis. L4-5: Mild disc bulge. Bilateral facet arthrosis. Mild to moderate bilateral neural foraminal stenosis. No spinal canal stenosis. L5-S1: Trace anterolisthesis. Moderate right neural foraminal stenosis from bone fragments. No left neural foraminal stenosis. IMPRESSION: 1. T12 wedge compression fracture with moderate anterior height loss. Mild fragmentation of the anterior superior vertebral corner and inferior endplate. No retropulsion. Likely subacute given the indistinctness of the fracture lines. Also present on comparison radiographs. 2. Nondisplaced partially healed right-sided L1-L2 transverse process fractures with displaced partially healed right-sided L4 transverse process fracture. 3. Partially sacralized L5 segment with right-sided L5 partially healed comminuted displaced transverse process fracture with bone fragments extending into the right L5-S1 neural foramen and potentially impinging the right L5 nerve root. 4. Extensively comminuted right-sided sacral ala/periprosthetic fracture with multiple displaced osseous fragments most prominent inferiorly and posteriorly. No right SI joint diastasis. No significant encroachment upon ventral or dorsal sacral neural foramina. Please note that all CT scans at this facility use dose modulation, iterative reconstruction, and/or weight-based dosing when appropriate to reduce radiation dose to as low as reasonably achievable. Dictated by Jacky Ballard MD @ 07/24/2022 11:26:17 AM (Electronically Signed)
[2022-07-23 20:32] LABS: Chloride* 98 mmol/L (96-114); Potassium* 3.9 mmol/L (3.6-5.1); Sodium* 134 mmol/L (135-149)
--- OUTSIDE RECORDS SUMMARY | 2022-07-23 20:32 | XMS_ITS | Encounter Summary ---
:1975 Author Organization [facility] Address [address] [place] [address] Phone Care Team Providers Name Role Phone Lore Au PT Unavailable Reason for Visit Reason Comments Pain Encounter Details Date Type Department Care Team Description 07/13/2022 Emergency [facility] Emergency EnedinaurMariano, Radicular pain of right Department MD lower extremity [address] R1.035 825 [place], [place] [address] 5 [place], [place] [phone] Social History Tobacco Use Types Packs/Day Years [...] documented in this encounter Discharge Instructions Discharge InstructionsSedrick Mcbride PA-C - 07/13/2022 11:06 AM CDT Bertram [...] sent through Care Everywhere. Radiculopathy Discharge Instructions (Salvadorean)documented in this encounter Medications at Time of [...] hours as needed (pain adjunct (give with opioid)).[place] 1-2 c??psulas (25-50 mg) por v??a oral [...] mg) by mouth 3 TABS times daily. [place] 1 tableta (5 mg) por la boca 3 veces al mandy. polyethylene glycol Take 17 g by mouth 510 g 0 06/26/20 22 3350 (MIRALAX/GLUCOLAX) twice daily.Take 1 17 gm/scoop oral powder capful to 17 gm cuate mixed with full glass of water twice every day as directed.[place] 17 g por v??a oral dos veces al d??a. [place] 1 tap??n hasta la minerva de 17 g mezclado con un vaso lleno de agua dos veces al d??a seg??n las indicaciones. sennosides-docusate Take 1 tablet by 40 each 0 06/26/2022 sodium (STOOL mouth twice daily. SOFTENER/LAXATIVE) [place] 1 tableta por 8.6-50 mg oral tablet la boca 2 veces al mandy. GABApentin (NEURONTIN) Take 1 capsule 120 capsule 0 06/26/20 22 400 mg oral capsule (400 mg) by mouth 3 times daily. [place] 1 capsula (400 mg) por la boca 3 veces al mandy. tamsulosin (FLOMAX) 0.4 Take 1 capsule 10 capsule 0 06/27/20 22 mg oral capsule (0.4 mg) by mouth daily after meal.Take 30 minutes after same meal each day. Do NOT crush or chew.[place] 1 c??psula (0,4 mg) por v??a oral todos los d??as despu??s de ethan comida. [place] 30 minutos despu??s de la misma comida todos los d??as. No triture ni mastique. melatonin 3 mg oral Take 1 tablet (3 20 tablet 0 06/26/2022 tablet mg) by mouth at bedtime as needed for Sleep. [place] 1 tableta (3 mg) por la boca [...] Thrombosis Indications: Blood Clot in a Deep Vein.([place] 1 tableta (20 mg) por v??a oral [...] ACOSTARSE CLEMENTE SEA NECESARIO PARA EL DOLOR rivaroxaban (XARELTO) Take 1 tablet (15 42 tablet 0 022 07/20/2022 15 mg oral mg) by mouth twice tabletIndications: Deep daily with meals Vein Thrombosis for 21 days. Indications: Blood Clot in a Deep Vein. [place] 1 tableta (15 mg) por v??a oral dos veces al d??a con las comidas jennifer 21 d??as. 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 documented as of this encounter ED Notes Sedrick Mcbride PA-C - 07/13/2022 10:09 AM CDT ED Provider Note Bertram Luisa : 1975 Sex: male Patient Arrival Date and Time: 07/13/2022 9:42 AM CHIEF COMPLAINT Pain HPI Bertram CoombsTanya is a 46 y.o. male with pmhx [...] hours as needed (pain adjunct (give with opioid)).[place] 1-2 c??psulas (25-50 mg) por v??a oral [...] tablet (5 mg) by mouth 3 timesdaily. [place] 1 tableta (5 mg) por la boca 3 veces al mandy., Normal polyethylene glycol 3350 (MIRALAX/GLUCOLAX) 17 gm/scoop oral powder Disp-510 g, R-0, Take 17 g by mouth twice daily.Take 1 capful to 17 gm cuate mixed with full glass of water twice every day as directed.[place] 17 g por v??a oral dos veces al d??a. [place] 1 tap??n hasta la minerva de 17 g mezclado con un vaso lleno de agua d os veces al d??a seg??n las indicaciones., Normal sennosides-docusate sodium (STOOL SOFTENER/LAXATIVE) 8.6-50 mg oral tablet Disp- 40 each, R-0, Take 1tablet by mouth twice daily. [place] 1 tableta por la boca 2 veces al mandy., Normal GABApentin (NEURONTIN) 400 mg oral capsule Disp-120 capsule, R-0, Take 1 capsule (400 mg) by mouth 3times daily. [place] 1 capsula (400 mg) por la boca 3 veces al mandy., Normal tamsulosin (FLOMAX) 0.4 mg oral capsule Disp-10 capsule, R-0, Take 1 capsule (0.4 mg) by mouth dailyafter meal.Take 30 minutes after same meal each day. Do NOT crush or chew.[place] 1 c??psula (0,4 mg) por v??a oral todos los d??as despu??s de ethan comida. [place] 30 minutos despu??s de la misma comida todos los d??as. No triture ni mastique., Normal melatonin 3 mg oral tablet Disp-20 tablet, R-0, Take 1 tablet (3 mg) by mouth at bedtime as needed for Sleep. [place] 1 tableta (3 mg) por la boca [...] meal. Indications: Blood Clot in a Deep Vein.([place] 1 tableta (20 mg) por v??a oral diariamente con la evonne. 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, Normal !! rivaroxaban (XARELTO) 15 mg oral tablet Disp-42 tablet, R-0, Take 1 tablet (15 mg) by mouth twicedaily with meals for 21 days. Indications: Blood Clot in a Deep Vein. [place] 1 tableta (15 mg) por v??a oral [...] (Oral) Resp 18 SpO2 98% FACULTY ATTESTATION I, Mariano Taylor MD, took a HPI and PE independently [...] reviewed the initial documentation provided by the heroibwinston and affirm thatit is an accurate restatement of my dictated record of services. Signed: Mariano Taylor MD, 09:49 07/13/2022 documented in this encounter Plan of Treatment Upcoming Encounters Date Type Specialty Care Team Description 07/25/2022 Appointment RADIOLOGY Patrice Hollins MD [address] [address] Scheduled 1, Isd-[place] [address] [place] [address] 07/25/2022 Office Visit NEUROSURGERY Briana Kaplan PA -C [address] [place] [address] Scheduled 1, [place] 701 [place] [address] 07/25/2022 Appointment PHYSICAL MEDICINE AND REHAB Lore Aguilar, PT Scheduled [address] [place] [address] (Wo rk) 08/05/2022 Appointment ORTHOPEDICS 1, Isd-[place] Scheduled 701 [place] [address] 08/05/2022 Appointment RADIOLOGY Roosevelt Brown MD [address] [place] [address] Scheduled 1, [place] [address] [place] [address] 08/05/2022 Appointment RADIOLOGY Roosevelt Brown MD [address] [place] [address] Scheduled 1, [place] [address] [place] [address] 08/05/2022 Office Visit ORTHOPEDICS Roosevelt Brown MD [address] [place] [address] Scheduled 1, Isd[place] 701 [place] [address] 08/20/2022 Office Visit Interventional Radiology Provider, Hesham haq Scheduled 1, Isd[place] [address] [place] [address] 08/21/2022 Office Visit MEDICINE Naomie Bal MBBS [address] [place] [address] Scheduled 1, Isd-[place] [address] [place] [address] documented as of this encounter Visit Diagnoses Diagnosis Radicular pain of right lower extremity - Primary Thoracic or lumbosacral neuritis or radi culitis, unspecified documented in this encounter Care Teams Car Attendant Relationship Specialty Start Date End Date Lore Au, PT Physical Therapist Physical Therapy 07/09/22 [address] [place], [place] [phone] documented as of this encounter
--- OUTSIDE RECORDS SUMMARY | 2022-07-23 20:32 | XMS_ITS | Encounter Summary ---
:1975 Author Organization [facility] Address [address] [place] [address] Phone Care Team Providers Name Role Phone Unavailable Primary Care Provider Unavailable Encounter Details Date Type Department Care Team Description 07/08/2022 Hospital Encounter Clinic & Specialty Patrice Hollins MD [address] [id number] Center XRAY 1, Isd-[place]ammar[place] 701 [place] [address] [address] Social History Tobacco Use Types [...] hours as needed (pain adjunct (give with opioid)).[place] 1-2 c??psulas (25-50 mg) por v??a oral [...] mg) by mouth 3 TABS times daily. [place] 1 tableta (5 mg) por la boca 3 veces al mandy. polyethylene glycol Take 17 g by mouth 510 g 0 06/26/20 22 3350 (MIRALAX/GLUCOLAX) twice daily.Take 1 17 gm/scoop oral powder capful to 17 gm cuate mixed with full glass of water twice every day as directed.[place] 17 g por v??a oral dos veces al d??a. [place] 1 tap??n hasta la minerva de 17 g mezclado con un vaso lleno de agua dos veces al d??a seg??n las indicaciones. sennosides-docusate Take 1 tablet by 40 each 0 06/26/2022 sodium (STOOL mouth twice daily. SOFTENER/LAXATIVE) [place] 1 tableta por 8.6-50 mg oral tablet la boca 2 veces al mandy. GABApentin (NEURONTIN) Take 1 capsule 120 capsule 0 06/26/20 22 400 mg oral capsule (400 mg) by mouth 3 times daily. [place] 1 capsula (400 mg) por la boca 3 veces al mandy. tamsulosin (FLOMAX) 0.4 Take 1 capsule 10 capsule 0 06/27/20 22 mg oral capsule (0.4 mg) by mouth daily after meal.Take 30 minutes after same meal each day. Do NOT crush or chew.[place] 1 c??psula (0,4 mg) por v??a oral todos los d??as despu??s de ethan comida. [place] 30 minutos despu??s de la misma comida todos los d??as. No triture ni mastique. melatonin 3 mg oral Take 1 tablet (3 20 tablet 0 06/26/2022 tablet mg) by mouth at bedtime as needed for Sleep. [place] 1 tableta (3 mg) por la boca [...] Thrombosis Indications: Blood Clot in a Deep Vein.([place] 1 tableta (20 mg) por v??a oral [...] Indications: Blood Clot in a Deep Vein. [place] 1 tableta (15 mg) por v??a oral dos veces al d??a con las comidas jennifer 21 d??as. 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 documented as of this encounter Plan of Treatment Upcoming Encounters Date Type Specialty Care Team Description 07/25/2022 Appointment RADIOLOGY Patrice Hollins MD [address] [address] Scheduled 1, Isd-[place]ammar[place] 701 [place] [address] 07/25/2022 Office Visit NEUROSURGERY Briana Kalpan PA -C [address] [place] [address] Scheduled 1, Isd[place]ammar[place] 701 [place] [address] 07/25/2022 Appointment PHYSICAL MEDICINE AND REHAB Lore Aguilar, PT Scheduled [address], [place] [address] (Wo rk) 08/05/2022 Appointment ORTHOPEDICS 1, Isd-[place]ammar[place] Scheduled 701 [place] [address] 08/05/2022 Appointment RADIOLOGY Roosevelt Brown MD [address] [place] [address] Scheduled 1, [place] 701 [place] [address] 08/05/2022 Appointment RADIOLOGY Roosevelt Brown MD [address] [place] [address] Scheduled 1, [place] 701 [place] [address] 08/05/2022 Office Visit ORTHOPEDICS Roosevelt Brown MD [address] [place] [address] Scheduled 1, [place] 701 [place] [address] 08/20/2022 Office Visit Interventional Radiology Provider, Int Ra d Scheduled 1, [place] 701 [place] [address] 08/21/2022 Office Visit MEDICINE Naomie Bal , REINIER 701 [place], [place] [phone] Scheduled 1, Isd-[place] 701 [place] [address] documented as of this encounter Procedures Procedure [...]
--- OUTSIDE RECORDS SUMMARY | 2022-07-23 20:32 | XMS_ITS | Encounter Summary ---
:1975 Author Organization [facility] Address [address] [place] [address] Phone Care Team Providers Name Role Phone Unavailable Primary Care Provider Unavailable Reason for Visit Reason Comments Follow-up Encounter Details Date Type Department Care Team Description 07/08/2022 Office Visit Clinic & Specialty Teofilo Brown MD [address] [place] [address] Pelvic ring fracture, closed, subsequent encounter () (Primary Dx); Center Orthopedic 1, Isd-[address] [address] Fracture of right wrist Clinic [address] [place] [address] Social History Tobacco Use Types Packs/Day [...] Continue with Xarelto per medicine clinic providers. [email or web address] application provided through February/2023. Return to the orthopedic clinic for follow up with Dr. Brown in 4 weeks with new x-rays at that time. Cast will be removed prior to x-rays. documented in this encounter Progress Notes Miri Matthew MD - 07/08/2022 8:15 AM CDT Images from the original note were not included. [facility] [place] [address] Orthopedic Clinic Visit DATE OF VISIT: 07/08/2022 [...] 07/25/2022 Appointment RADIOLOGY Patrice Hollins MD [address] [address] Scheduled 1, [place] [address] [place] [address] 07/25/2022 Office Visit NEUROSURGERY Briana Kaplan PA -C [address] [place] [address] Scheduled 1, Isd[place]iger[place] [address] [place] [address] 07/25/2022 Appointment PHYSICAL MEDICINE AND REHAB Lore Aguilar, PT Scheduled [address] [place] [address] (Wo rk) 08/05/2022 Appointment ORTHOPEDICS 1, Isd-Nigerien Scheduled [address] [place] [address] 08/05/2022 Appointment RADIOLOGY Roosevelt Brown MD [address] [place] [phone] Scheduled 1, Isd[place] [address] [place] [address] 08/05/2022 Appointment RADIOLOGY Roosevelt Brown MD [address] [place] [address] Scheduled 1, [place] [address] [place] [address] 08/05/2022 Office Visit ORTHOPEDICS Roosevelt Brown MD [address] [place] [address] Scheduled 1, Isd[place] [address] [place] [address] 08/20/2022 Office Visit Interventional Radiology Provider, Hesham haq Scheduled 1, [place] [address] [place] [address] 08/21/2022 Office Visit MEDICINE Naomie Bal MBBS 701 [place] [address] Scheduled 1, [place] [address] [place] [address] Scheduled Orders Name Type Priority Associated Diagnoses [...]
--- OUTSIDE RECORDS SUMMARY | 2022-07-23 20:32 | XMS_ITS | Encounter Summary ---
:1975 Author Organization [facility] Address [address] [place] [address] Phone Care Team Providers Name Role Phone Lore Au PT Unavailable Reason for Visit Reason Onset Date Comments Erroneous encounter-disregard 07/22/2022 Encounter Details Date Type Department Care Team Description 07/22/2022 Erroneous Clinic & Specialty Provider, Int Rad ERRO NEOUS Encounter Center Interventional 1, Isd-Azerbaijani [address] [place] [address] ENCOUNTER-DISREGARD Radiology (Primary Dx) [address] A[address].419 [place], [place] [address] Social History Tobacco Use Types Packs/Day [...] as of this encounter Patient Instructions Patient InstructionsLaDalia bui PA-C - 07/22/2022 9:45 AM CDT documented in this encounter Progress Notes Dalia Ingram PA-C - 07/22/2022 9:45 AM CDT This encounter was opened in error. Please disregard. documented in this encounter Plan of Treatment Upcoming Encounters Date Type Specialty Care Team Description 07/25/2022 Appointment RADIOLOGY Patrice Hollins MD [address] [address] Scheduled 1, Isd-[place]zerbaij[place] [address] [place] [address] 07/25/2022 Office Visit NEUROSURGERY Briana Kaplan PA -C [address] [place] [address] Scheduled 1, Isd[place]zerbaij[place] [address] [place] [address] 07/25/2022 Appointment PHYSICAL MEDICINE AND REHAB Lore Aguilar, PT Scheduled [address] [place] [address] (Wo rk) 08/05/2022 Appointment ORTHOPEDICS 1, Isd-Azerbaijani Scheduled [address] [place] [address] 08/05/2022 Appointment RADIOLOGY Roosevelt Brown MD [address] [place] [address] Scheduled 1, Isd-[place]zerbaij[place] [address] [place] [address] 08/05/2022 Appointment RADIOLOGY Roosevelt Brown MD [address] [place] [address] Scheduled 1, Isd[place]zerbaij[place] [address] [place] [address] 08/05/2022 Office Visit ORTHOPEDICS Roosevelt Brown MD [address] [place] [address] Scheduled 1, Isd-[place]zerbaij[place] [address] [place] [address] 08/20/2022 Office Visit Interventional Radiology Provider, Hesham haq Scheduled 1, Isd[place]zerbaij[place] [address] [place] [address] 08/21/2022 Office Visit MEDICINE Naomie Bal MBBS 701 [place] [address] Scheduled 1, Isd[place]zerbaij[place] [address] [place] [address] documented as of this encounter Visit Diagnoses Diagnosis ERRONEOUS ENCOUNTER-DISREGARD - Primary documented in this encounter Care Teams Academic Registrar Relationship Specialty Start Date End Date Lore Au, PT Physical Therapist Physical Therapy 07/09/22 [address] [place], [place] [address] documented as of this encounter
--- OUTSIDE RECORDS SUMMARY | 2022-07-23 20:32 | XMS_ITS | Encounter Summary ---
:1975 Author Organization [facility] Address [address] [place] [address] Phone Care Team Providers Name Role Phone [...] Appointment RADIOLOGY Patrice Hollins MD [address] [address] Scheduled 1, Isd[place]izen [place] [address] [place] [address] 07/25/2022 Office Visit NEUROSURGERY Eusebio, Briana Reyes PA IbisC [address] [place], [place] [phone] Scheduled 1, Isd[place]izen [place] [address] [place] [address] 07/25/2022 Appointment PHYSICAL MEDICINE AND REHAB Lore Aguilar, PT Scheduled [address] [place] [address] (Wo rk) 08/05/2022 Appointment ORTHOPEDICS 1, Isd[place] Scheduled 701 [place] [address] 08/05/2022 Appointment RADIOLOGY Roosevelt Brown MD [address] [place] [address] Scheduled 1, [place] [address] [place] [address] 08/05/2022 Appointment RADIOLOGY Roosevelt Brown MD [address] [place] [address] Scheduled 1, [place] [address] [place] [address] 08/05/2022 Office Visit ORTHOPEDICS Roosevelt Brown MD [address] [place] [address] Scheduled 1, [place] [address] [place] [address] 08/20/2022 Office Visit Interventional Radiology Provider, Hesham haq Scheduled 1, [place] [address] [place] [address] 08/21/2022 Office Visit MEDICINE Naomie Bal MBBS 701 [place] [address] Scheduled 1, [place] 701 [place] [address] documented as of this encounter Visit Diagnoses Not on filedocumented in this encounter
--- OUTSIDE RECORDS SUMMARY | 2022-07-23 20:32 | XMS_ITS | Encounter Summary ---
:1975 Author Organization [facility] Address 701 [facility] [place] [address] Phone Care Team Providers Name Role Phone Unavailable Primary Care Provider Unavailable Reason for Visit Reason Comments Pain Control Encounter Details Date Type Department Care Team Description 06/29/2022 - Emergency [facility] Emergency Sascha Mendez , DO Pain 06/30/2022 Department 701 [facility] [address] [place] [address] R1.035 [place] [address] [phone] Social History Tobacco Use Types Packs/Day Years [...] Care Everywhere. Acute Pain Discharge Instructions, Adult (Montenegrin)documented in this encounter Medications at Time of Discharge Medication Sig Dispensed Refills Start Date End Date acetaminophen 325 mg Take 3 tablets 120 tablet 0 06/26/2022 oral tablet (975 mg) by mouth 3 times daily. hydrOXYzine pamoate Take 1-2 capsules 120 capsule 0 06/26/20 ([place]) 25 mg oral (25-50 mg) by capsule mouth every 4 hours as needed (pain adjunct (give with opioid)).[place] 1-2 c??psulas (25-50 mg) por v??a oral [...] mg) by mouth 3 TABS times daily. [place] 1 tableta (5 mg) por la boca 3 veces al mandy. polyethylene glycol Take 17 g by mouth 510 g 0 06/26/20 3350 (MIRALAX/GLUCOLAX) twice daily.Take 1 17 gm/scoop oral powder capful to 17 gm cuate mixed with full glass of water twice every day as directed.[place] 17 g por v??a oral dos veces al d??a. [place] 1 tap??n hasta la minerva de 17 g mezclado con un vaso lleno de agua dos veces al d??a seg??n las indicaciones. sennosides-docusate Take 1 tablet by 40 each 0 06/26/2022 sodium (STOOL mouth twice daily. SOFTENER/LAXATIVE) [place] 1 tableta por 8.6-50 mg oral tablet la boca 2 veces al mandy. GABApentin (NEURONTIN) Take 1 capsule 120 capsule 0 06/26/20 400 mg oral capsule (400 mg) by mouth 3 times daily. [place] 1 capsula (400 mg) por la boca 3 veces al mandy. tamsulosin (FLOMAX) 0.4 Take 1 capsule 10 capsule 0 06/27/20 22 mg oral capsule (0.4 mg) by mouth daily after meal.Take 30 minutes after same meal each day. Do NOT crush or chew.[place] 1 c??psula (0,4 mg) por v??a oral todos los d??as despu??s de ethan comida. [place] 30 minutos despu??s de la misma comida todos los d??as. No triture ni mastique. melatonin 3 mg oral Take 1 tablet (3 20 tablet 0 06/26/2022 tablet mg) by mouth at bedtime as needed for Sleep. [place] 1 tableta (3 mg) por la boca [...] Thrombosis Indications: Blood Clot in a Deep Vein.([place] 1 tableta (20 mg) por v??a oral [...] Take 1 tablet (5 30 tablet 0 06/27/ 022 07/04/2022 5 mg oral tablet mg) by mouth every 4 hours as needed for Pain. rivaroxaban (XARELTO) Take 1 tablet (15 42 tablet 0 06/29/ 022 07/20/2022 15 mg oral mg) by mouth twice tabletIndications: Deep daily with meals Vein Thrombosis for 21 days. Indications: Blood Clot in a Deep Vein. [place] 1 tableta (15 mg) por v??a oral [...] with patient. Questions answered, pt verbalizes understanding. A TT Kristie Javed MD - 06/30/2022 2:24 AM CDT Emergency [...] in real time. Please contact me via Factual staff message if you note any errors requiring clarification. Yovany Bautista RN - 06/30/2022 1:16 AM CDT [...] Due to a language barrier, a professional senior dynamics crm developer was present in person during this encounter. [...] symptoms. Please see the resident or physician grooming assistant note from the same day for [...] documentation provided by the heroibwinston and affirm that it is an accurate [...] Patrice Hollins MD [address] [phone] Scheduled 1, Isd-[place] 701 [place] [address] 07/25/2022 Office Visit NEUROSURGERY Briana Kaplan PA -C [address] [place] [address] Scheduled 1, Isd[place] [address] [place] [address] 07/25/2022 Appointment PHYSICAL MEDICINE AND REHAB Lore Aguilar, PT Scheduled [address], [place] [address] (Wo rk) 08/05/2022 Appointment ORTHOPEDICS 1, Isd-[place] Scheduled [address] [place] [address] 08/05/2022 Appointment RADIOLOGY Roosevelt Brown MD [address] [place] [address] Scheduled 1, [place] [address] [place] [address] 08/05/2022 Appointment RADIOLOGY Roosevelt Brown MD [address] [place] [address] Scheduled 1, [place] [address] [place] [address] 08/05/2022 Office Visit ORTHOPEDICS Roosevelt Brown MD [address] [place] [address] Scheduled 1, Isd[place] [address] [place] [address] 08/20/2022 Office Visit Interventional Radiology Provider, Hesham haq Scheduled 1, Isd[place] [address] [place] [address] 08/21/2022 Office Visit MEDICINE Naomie Bal MBBS 701 [place] [address] Scheduled 1, [place] [address] [place] [address] documented as of this encounter Visit Diagnoses [...] 06/30/2022 oxyCODONE (ROXICODONE) tablet 10 mg (COMPLETED) 3222 (Given - Provider: Raven Orr RN) 10 mg, Oral, ONE TIME, 1 dose, On 06/29/22 at 2240 documented in this encounter
--- OUTSIDE RECORDS SUMMARY | 2022-07-23 20:32 | XMS_ITS | Encounter Summary ---
:1975 Author Organization [facility] Address 1 [place] [address] Phone Care Team Providers Name Role Phone Unavailable Primary Care Provider Unavailable Encounter Details Date Type Department Care Team Description 07/08/2022 Hospital Encounter Clinic & Specialty Roosevelt Brown MD [address] [place] [address] [id number] Center XRAY 1, Isd-[place] 701 [place], [place] [address] [place] [address] 5589 Social History Tobacco Use Types Packs/Day Years [...] hours as needed (pain adjunct (give with opioid)).[place] 1-2 c??psulas (25-50 mg) por v??a oral [...] mg) by mouth 3 TABS times daily. [place] 1 tableta (5 mg) por la boca 3 veces al mandy. polyethylene glycol Take 17 g by mouth 510 g 0 06/26/20 22 3350 (MIRALAX/GLUCOLAX) twice daily.Take 1 17 gm/scoop oral powder capful to 17 gm cuate mixed with full glass of water twice every day as directed.[place] 17 g por v??a oral dos veces al d??a. [place] 1 tap??n hasta la minerva de 17 g mezclado con un vaso lleno de agua dos veces al d??a seg??n las indicaciones. sennosides-docusate Take 1 tablet by 40 each 0 06/26/2022 sodium (STOOL mouth twice daily. SOFTENER/LAXATIVE) [place] 1 tableta por 8.6-50 mg oral tablet la boca 2 veces al mandy. GABApentin (NEURONTIN) Take 1 capsule 120 capsule 0 06/26/20 22 400 mg oral capsule (400 mg) by mouth 3 times daily. [place] 1 capsula (400 mg) por la boca 3 veces al mandy. tamsulosin (FLOMAX) 0.4 Take 1 capsule 10 capsule 0 06/27/20 22 mg oral capsule (0.4 mg) by mouth daily after meal.Take 30 minutes after same meal each day. Do NOT crush or chew.[place] 1 c??psula (0,4 mg) por v??a oral todos los d??as despu??s de ethan comida. [place] 30 minutos despu??s de la misma comida todos los d??as. No triture ni mastique. melatonin 3 mg oral Take 1 tablet (3 20 tablet 0 06/26/2022 tablet mg) by mouth at bedtime as needed for Sleep. [place] 1 tableta (3 mg) por la boca [...] Thrombosis Indications: Blood Clot in a Deep Vein.([place] 1 tableta (20 mg) por v??a oral [...] Indications: Blood Clot in a Deep Vein. [place] 1 tableta (15 mg) por v??a oral dos veces al d??a con las comidas jennifer 21 d??as. 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 documented as of this encounter Plan of Treatment Upcoming Encounters Date Type Specialty Care Team Description 07/25/2022 Appointment RADIOLOGY Patrice Hollins MD [address] [address] Scheduled 1, Isd-[place] 701 [place] [address] 07/25/2022 Office Visit NEUROSURGERY Briana Kaplan PA -C [address] [place] [address] Scheduled 1, Isd[place] 701 [place] [address] 07/25/2022 Appointment PHYSICAL MEDICINE AND REHAB Lore Aguilar PT Scheduled [address] [place] [phone] (Wo rk) 08/05/2022 Appointment ORTHOPEDICS 1, Isd-[place] Scheduled 701 [place] [address] 08/05/2022 Appointment RADIOLOGY Roosevelt Brown MD [address] [place] [address] Scheduled 1, [place] 701 [place] [address] 08/05/2022 Appointment RADIOLOGY Roosevelt Brown MD [address] [place] [address] Scheduled 1, [place] 701 [place] [address] 08/05/2022 Office Visit ORTHOPEDICS Roosevelt Brown MD [address] [place] [address] Scheduled 1, Isd[place] 701 [place] [address] 08/20/2022 Office Visit Interventional Radiology Provider, Hesham haq Scheduled 1, [place] 701 [place] [address] 08/21/2022 Office Visit MEDICINE Naomie Bal MBBS 701 [place], [place] [phone] Scheduled 1, Isd[place] 701 [place] [address] documented as of this encounter Procedures Procedure [...]
--- OUTSIDE RECORDS SUMMARY | 2022-07-23 20:32 | XMS_ITS | Encounter Summary ---
:1975 Author Organization [facility] Address [address] [place] [address] Phone Care Team Providers Name Role Phone Unavailable Primary Care Provider Unavailable Encounter Details Date Type Department Care Team Description 07/08/2022 Hospital Encounter Clinic & Specialty Dom Matthew MD 701 [place] [address] Center Ultrasound 1, [place] 701 [place] [address] [facility] [address] [place] [address] Social History Tobacco Use Types Packs/Day Years [...] hours as needed (pain adjunct (give with opioid)).[place] 1-2 c??psulas (25-50 mg) por v??a oral [...] mg) by mouth 3 TABS times daily. [place] 1 tableta (5 mg) por la boca 3 veces al mandy. polyethylene glycol Take 17 g by mouth 510 g 0 06/26/20 22 3350 (MIRALAX/GLUCOLAX) twice daily.Take 1 17 gm/scoop oral powder capful to 17 gm cuate mixed with full glass of water twice every day as directed.[place] 17 g por v??a oral dos veces al d??a. [place] 1 tap??n hasta la minerva de 17 g mezclado con un vaso lleno de agua dos veces al d??a seg??n las indicaciones. sennosides-docusate Take 1 tablet by 40 each 0 06/26/2022 sodium (STOOL mouth twice daily. SOFTENER/LAXATIVE) [place] 1 tableta por 8.6-50 mg oral tablet la boca 2 veces al mandy. GABApentin (NEURONTIN) Take 1 capsule 120 capsule 0 06/26/20 22 400 mg oral capsule (400 mg) by mouth 3 times daily. [place] 1 capsula (400 mg) por la boca 3 veces al mandy. tamsulosin (FLOMAX) 0.4 Take 1 capsule 10 capsule 0 06/27/20 22 mg oral capsule (0.4 mg) by mouth daily after meal.Take 30 minutes after same meal each day. Do NOT crush or chew.[place] 1 c??psula (0,4 mg) por v??a oral todos los d??as despu??s de ethan comida. [place] 30 minutos despu??s de la misma comida todos los d??as. No triture ni mastique. melatonin 3 mg oral Take 1 tablet (3 20 tablet 0 06/26/2022 tablet mg) by mouth at bedtime as needed for Sleep. [place] 1 tableta (3 mg) por la boca [...] Thrombosis Indications: Blood Clot in a Deep Vein.([place] 1 tableta (20 mg) por v??a oral [...] Indications: Blood Clot in a Deep Vein. [place] 1 tableta (15 mg) por v??a oral dos veces al d??a con las comidas jennifer 21 d??as. 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 documented as of this encounter Plan of Treatment Upcoming Encounters Date Type Specialty Care Team Description 07/25/2022 Appointment RADIOLOGY Patrice Hollins MD [address] [address] Scheduled 1, [place] 701 [place] [address] 07/25/2022 Office Visit NEUROSURGERY Briana Kaplan PA -C [address] [place] [address] Scheduled 1, [place] 701 [place] [address] 07/25/2022 Appointment PHYSICAL MEDICINE AND REHAB Lore Aguilar, PT Scheduled [address] [place] [address] (Wo rk) 08/05/2022 Appointment ORTHOPEDICS 1, [place] Scheduled 701 [place] [address] 08/05/2022 Appointment RADIOLOGY Roosevelt Brown MD [address] [place] [address] Scheduled 1, [place] 701 [place] [address] 08/05/2022 Appointment RADIOLOGY Roosevelt Brown MD [address] [place] [address] Scheduled 1, [place] [address] [place] [address] 08/05/2022 Office Visit ORTHOPEDICS Roosevelt Brown MD [address] [place] [address] [phone] Scheduled 1, [place] 701 [place] [address] 08/20/2022 Office Visit Interventional Radiology Provider, Int Ra haq Scheduled 1, [place] 701 [place] [address] 08/21/2022 Office Visit MEDICINE Naomie Bal , REINIER 701 [place], [place] 6[address]145 Scheduled 1, [place] [address] [place] [address] documented as of this encounter Procedures Procedure [...]
--- OUTSIDE RECORDS SUMMARY | 2022-07-23 20:32 | XMS_ITS | Encounter Summary ---
:1975 Author Organization [facility] Address [address] [facility] [place] [address] Phone Care Team Providers Name Role Phone Lore Au You PT Unavailable Reason for Visit Reason Onset Date Comments Request Appointment 07/21/2022 Needs to be reschedu led with Ortho visit on 07/22/22 Encounter Details Date Type Department Care Team Description 07/21/2022 Telephone Clinic & Specialty Gorge Dimas, RN Request Appointment Center Orthopedic 701 [facility] (Needs to be Clinic [place], [place] rescheduled with Ortho [address] [address] visit on 07/22/22) [place], [place] [address] Social History Tobacco Use Types [...] encounter Miscellaneous Notes Telephone Encounter - Gorge Dimas, RN - 07/21/2022 10:37 AM CDT Patient's relative called from [phone] stating that patient was unable to come to tomorrow's appt and wants to be rescheduled. Will send to Dr Brown Team for scheduling instructions.Gorge Dimas, RN, 07/21/2022 10:38 AM documented in this encounter Plan of Treatment Upcoming Encounters Date Type Specialty Care Team Description 07/25/2022 Appointment RADIOLOGY Patrice Hollins MD [address] [address] Scheduled 1, Isd[place] 701 [place] [address] 07/25/2022 Office Visit NEUROSURGERY Briana Kaplan PA -C [address] [place] [address] Scheduled 1, Isd[place] 701 [place] [address] 07/25/2022 Appointment PHYSICAL MEDICINE AND REHAB Lore Aguilar, PT Scheduled [address] [place] [phone] (Wo rk) 08/05/2022 Appointment ORTHOPEDICS 1, Isd-[place] Scheduled 701 [place] [address] 08/05/2022 Appointment RADIOLOGY Roosevelt Brown MD [address] [place] [address] Scheduled 1, Isd[place] 701 [place] [address] 08/05/2022 Appointment RADIOLOGY Roosevelt Brown MD [address] [place] [address] Scheduled 1, Isd[place] 701 [place] [address] 08/05/2022 Office Visit ORTHOPEDICS Roosevelt Brown MD [address] [place] [address] Scheduled 1, Isd[place] 701 [place] [address] 08/20/2022 Office Visit Interventional Radiology Provider, Hesham haq Scheduled 1, [place] 701 [place] [address] 08/21/2022 Office Visit MEDICINE Naomie Bal MBBS 701 [place] [address] Scheduled 1, Isd[place] 701 [place] [address] documented as of this encounter Visit Diagnoses Not on filedocumented in this encounter Care Teams Industrial Energy Engineer Relationship Specialty Start Date End Date Lore Au, PT Physical Therapist Physical Therapy 07/09/22 [address] [place] [address] documented as of this encounter
--- OUTSIDE RECORDS SUMMARY | 2022-07-23 20:32 | XMS_ITS | Encounter Summary ---
:1975 Author Organization [facility] Address [address] [place] [address] Phone Care Team Providers Name Role Phone Lore Au PT Unavailable Reason for Referral Consult/Test/Treat (Routine) - New Request Specialty Diagnoses / Procedures Referred By Contact Refer red To Contact Pain Management Diagnoses Post-operative pain Danny Rios MD [address] [address] Referral ID Status Reason Start Date Expiration Date Visits V isits Requested Authorized [id number] New Request 07/15/2022 07/16/2023 1 1 Reason for Visit Reason Comments Back Pain Encounter Details Date Type Department Care Team Description 07/14/2022 - Emergency [facility] [place] [place] Danny Rios MD [address] [place] [address] Post-operative pain 07/15/2022 Department Areli Mccoy MD [address] [place] [address] [place] [address] R1.035 [place], [place] [address] Social History Tobacco Use Types [...] through Care Everywhere. Managing Pain After Surgery ([place]raini)Opioids for Short-Term Treatment of Pain ([place]i)documented in this encounter Medications at Time of [...] hours as needed (pain adjunct (give with opioid)).[place] 1-2 c??psulas (25-50 mg) por v??a oral [...] mg) by mouth 3 TABS times daily. [place] 1 tableta (5 mg) por la boca 3 veces al mandy. polyethylene glycol Take 17 g by mouth 510 g 0 06/26/20 3350 twice daily.Take 1 (MIRALAX/GLUCOLAX) 17 capful to 17 gm gm/scoop oral powder cuate mixed with full glass of water twice every day as directed.[place] 17 g por v??a oral dos veces al d??a. [place] 1 tap??n hasta la minerva de 17 g mezclado con un vaso lleno de agua dos veces al d??a seg??n las indicaciones. sennosides-docusate Take 1 tablet by 40 each 0 06/26/2022 sodium (STOOL mouth twice daily. SOFTENER/LAXATIVE) [place] 1 tableta por 8.6-50 mg oral tablet la boca 2 veces al mandy. GABApentin (NEURONTIN) Take 1 capsule (400 120 capsule 0 400 mg oral capsule mg) by mouth 3 times daily. [place] 1 capsula (400 mg) por la boca 3 veces al mandy. tamsulosin (FLOMAX) Take 1 capsule (0.4 10 capsule 0 022 0.4 mg oral capsule mg) by mouth daily after meal.Take 30 minutes after same meal each day. Do NOT crush or chew.[place] 1 c??psula (0,4 mg) por v??a oral todos los d??as despu??s de ethan comida. [place] 30 minutos despu??s de la misma comida todos los d??as. No triture ni mastique. melatonin 3 mg oral Take 1 tablet (3 20 tablet 0 06/26/2022 tablet mg) by mouth at bedtime as needed for Sleep. [place] 1 tableta (3 mg) por la boca [...] Thrombosis Indications: Blood Clot in a Deep Vein.([place] 1 tableta (20 mg) por v??a oral diariamente con la joist setter. 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 Indications: Mellitus Type 2 Diabetes glipiZIDE XL Take 1 tablet (10 0 (GLUCOTROL XL) 10 mg mg) by mouth daily. oral extended release Indications: Type 2 tabletIndications: Diabetes Type 2 Diabetes Mellitus oxyCODONE (ROXICODONE) Take 1 tablet (5 10 tablet 0 022 07/20/2022 5 mg oral tablet mg) by mouth every 8 hours as needed for breakthrough pain. TOME ETHAN TABLETA CADA 8 HORAS CLEMENTE SEA NECESARIO PARA EL DOLOR INTENSIVO traMADol (ULTRAM) 50 Take 1 tablet (50 [...] Indications: Blood Clot in a Deep Vein. [place] 1 tableta (15 mg) por v??a oral [...] with patient. Questions answered, pt verbalizes understanding. hair clipper power used for discharge instructions. Hector Loya RN - 07/15/2022 3:10 AM CDT ISD mail rider used. Pt to ED c/o right leg [...] 07/14/2022 6:45 PM CDT Per patient via jewelry repairer, persistent right leg pain for the last several days after recently tapered off Oxycodone and placed on Tramadol s/p pelvic ring fracture. States he was given a topical cream yesterday that is not helping. documented in this encounter Miscellaneous Notes ED Faculty Note - Danny Rios MD - 07/15/2022 3:50 AM CDT ED Faculty Attestation and Note Due to language barrier, an jewelry repairer was present during the history-taking and subsequent discussion (and for part of the physical exam) with this patient. FACULTY ATTESTATION I, Danny Rios MD, performed a history and physical examination of the patient and discussed management with the resident. I reviewed the resident's note and agree with the documented findings and plan of care as documented in the resident's note. CRITICAL CARE No. RN and ANCILLARY NOTES I have reviewed nursing and ancillary notes, and agree with protocol as initiated. PROCEDURES Not applicable MEDICAL DECISION MAKING The current images reviewed and interpreted: see below, medical record discussed, and medical recordreviewed and interpreted. Exam GENERAL: Alert, lying on the cart HEAD: Head and face without trauma EYES: Vision grossly intact. EARS: External ears appear normal. NOSE: Nares normal. THROAT: moist mucous membranes NECK: Full ROM LUNGS: Normal work of breathing. CTAB. CARDIOVASCULAR: RRR. Peripheral pulses intact bilaterally ABDOMEN: Soft. Non-tender. Non-distended. MUSCULOSKELATAL: Extremities without deformities, FROM in all extremities. EXT: no edema bilaterally SKIN: No rashes NEURO: Alert and oriented, no gross focal deficits, moving all extremities equally BP 126/86 (Cuff Location: Right Arm, Patient Position: Lying Down) Pulse (!) 100 Temp 36.7 ??C (98.1 ??F) (Oral) Resp 16 SpO2 98% 46 y.o. male presents c/o worsening R LE pain. Patient fell from high scaffolding about 1 month ago.Patient given oxycodone. Spine XR with evidence of stable height of known compression fracture of T12 with increase sclerosis/healing, stable mild compression deformity of T11, limited visualization offracture of R transverse process of L1. Pelvic XR without evidence for acute osseous abnormality. Patient given spine XR. Plan to discharge with oxycodone, referral to ortho and interventional pain center. 1. Post-operative pain Scribed for Danny Rios MD by Mar Briseno Scribe, 07/15/2022 3:50 AM I, Danny Rios MD have reviewed the initial documentation provided by the scribe and affirm that it is an accurate restatement of my dictated record of services. Signed: Danny Rios MD, 03:50 07/15/2022 ED Triage Provider Note - Areli Mccoy MD - 07/14/2022 7:10 PM CDT TRIAGE PHYSICIAN MEDICAL SCREENING EVALUATION Bertram CoombsTanya 46 y.o. male Chief Complaint: Right leg pain HPI: Patient presents to the Emergency Department with right leg pain from hip to foot s/p recent hospitalization for 30 ft fall from scaffolding. Pt was seen in the ED yesterday [...] 07/25/2022 Appointment RADIOLOGY Patrice Hollins MD [address] [address] Scheduled 1, Isd-[place] 701 [place] [address] 07/25/2022 Office Visit NEUROSURGERY Briana Kaplan PA -C [address] [place] [address] Scheduled 1, Isd-[place] 701 [place] [address] 07/25/2022 Appointment PHYSICAL MEDICINE AND REHAB Lore Aguilar, PT Scheduled [address] [place] [address] (Wo rk) 08/05/2022 Appointment ORTHOPEDICS 1, Isd-[place]rain[place] Scheduled 701 [place] [address] 08/05/2022 Appointment RADIOLOGY Roosevelt Brown MD [address] [place] [address] [phone] Scheduled 1, Isd-[place] 701 [place] [address] 08/05/2022 Appointment RADIOLOGY Roosevelt Brown MD [address] [place] [address] Scheduled 1, Isd-[place] 701 [place] [address] 08/05/2022 Office Visit ORTHOPEDICS Roosevelt Brown MD [address] [place] [address] Scheduled 1, Isd-[place] 701 [place] [address] 08/20/2022 Office Visit Interventional Radiology Provider, Hesham haq Scheduled 1, Isd-[place] [address] [place] [address] 08/21/2022 Office Visit MEDICINE Naomie Bal MBBS 701 [place] [address] Scheduled 1, Isd-[place] 701 [place] [address] Scheduled Referrals Name Type Priority Associated Diagnoses [...] 07/14/2022 07/15/2022 acetaminophen tablet 650 mg (COMPLETED) 06 (Given - Provider: Hector Loya RN) 650 mg, Oral, ONE TIME, 1 dose, On Thu07/15/22 at 0645 ibuprofen (MOTRIN;ADVIL) tablet 600 mg (COMPLETED) 652 (Given - Provider: Hector Loya RN) 600 mg, Oral, ONE TIME, 1 dose, On Thu07/15/22 at 0645 oxyCODONE (ROXICODONE) tablet 10 mg (COMPLETED) 2049 (Given - Provider: Ginger Terpening, RN) 10 mg, Oral, ONE TIME, 1 dose, On 07/14/22 at 1910 oxyCODONE (ROXICODONE) tablet 5 mg (COMPLETED) 0653 (Given - Provider: Hector Loya RN) 5 mg, Oral, ONE TIME, 1 dose, On Thu07/15/22 at 0645 documented in this encounter Care Teams Bowling Ball Assembler Relationship Specialty Start Date End Date Lore Au, PT Physical Therapist Physical Therapy 07/09/22 [address] [place] [address] documented as of this encounter
--- OUTSIDE RECORDS SUMMARY | 2022-07-23 20:32 | XMS_ITS | Encounter Summary ---
:1975 Author Organization [facility] Address [address] [place] [address] Phone Care Team Providers Name Role Phone RoeSouthflex Orta PT Unavailable Encounter Details Date Type Department [...] 07/25/2022 Appointment RADIOLOGY Patrice Hollins MD [address] [phone] Scheduled 1, Isd-Mexican 1 [place] [address] 07/25/2022 Office Visit NEUROSURGERY Briana Kaplan PA -C [address] [place] [address] Scheduled 1, Isd-Mex[place] [address] [place] [address] 07/25/2022 Appointment PHYSICAL MEDICINE AND REHAB Lore Aguilar, PT Scheduled [address] [place] [address] (Wo rk) 08/05/2022 Appointment ORTHOPEDICS 1, Isd-Mexican Scheduled 701 [place] [address] 08/05/2022 Appointment RADIOLOGY Roosevelt Brown MD [address] [place] [address] Scheduled 1, Isd-Mexican 701 [place] [address] 08/05/2022 Appointment RADIOLOGY Roosevelt Brown MD [address] [place] [address] Scheduled 1, Isd-Mexican 701 [place] [address] 08/05/2022 Office Visit ORTHOPEDICS Roosevelt Brown MD [address] [place] [address] Scheduled 1, Isd-Mexican 701 [place] [address] 08/20/2022 Office Visit Interventional Radiology Provider, Hesham haq Scheduled 1, Isd-Mexican 701 [place] [address] 08/21/2022 Office Visit MEDICINE Naomie Bal MBBS 701 [place] [address] Scheduled 1, Isd-Mexican [address] [place] [address] documented as of this encounter Visit Diagnoses Not on filedocumented in this encounter Care Teams Hearing Care Professional Relationship Specialty Start Date End Date Lore Au, PT Physical Therapist Physical Therapy 07/09/[address] [place] [address] documented as of this encounter
--- OUTSIDE RECORDS SUMMARY | 2022-07-23 20:32 | XMS_ITS | Encounter Summary ---
:1975 Author Organization [facility] Address 1 [place] [address] Phone Care Team Providers Name Role Phone [...] Appointment RADIOLOGY Patrice Hollins MD [address] [address] Scheduled 1, Isd-[place] 701 [place] [address] 07/25/2022 Office Visit NEUROSURGERY Briana Kaplan PA -C [address] [place] [address] Scheduled 1, Isd-[place] 701 [place] [address] 07/25/2022 Appointment PHYSICAL MEDICINE AND REHAB Lore Aguilar, PT Scheduled [address] [place] [address] (Wo rk) 08/05/2022 Appointment ORTHOPEDICS 1, Isd-[place] Scheduled 701 [place] [address] 08/05/2022 Appointment RADIOLOGY Roosevelt Brown MD [address] [place] [address] Scheduled 1, Isd-[place] [address] [place] [address] 08/05/2022 Appointment RADIOLOGY Roosevelt Brown MD [address] [place] [address] Scheduled 1, Isd-[place] [address] [place] [address] 08/05/2022 Office Visit ORTHOPEDICS Roosevelt Brown MD [address] [place] [address] Scheduled 1, Isd-[place] [address] [place] [address] 08/20/2022 Office Visit Interventional Radiology Provider, Hesham haq Scheduled 1, Isd-[place] 701 [place] [address] 08/21/2022 Office Visit MEDICINE Naomie Bal MBBS 701 [place] [address] Scheduled 1, Isd-[place] [address] [place] [address] documented as of this encounter Visit Diagnoses Not on filedocumented in this encounter
--- OUTSIDE RECORDS SUMMARY | 2022-07-23 20:32 | XMS_ITS | Encounter Summary ---
:1975 Author Organization [facility] Address [address] [place] [phone] Phone Care Team Providers Name Role Phone [...] 07/25/2022 Appointment RADIOLOGY Patrice Hollins MD [address] [id number] Scheduled 1, [facility] [address] [place] [address] 07/25/2022 Office Visit NEUROSURGERY Briana Kaplan PA -C [address] [place] [address] Scheduled 1, [facility] [address] [place] [address] 07/25/2022 Appointment PHYSICAL MEDICINE AND REHAB Lore Aguilar, PT Scheduled [address] [place] [address] (Wo rk) 08/05/2022 Appointment ORTHOPEDICS 1, [facility] Scheduled [address] [place] [address] 08/05/2022 Appointment RADIOLOGY Roosevelt Brown MD [address] [place] [phone] Scheduled 1, [facility] [address] [place] [address] 08/05/2022 Appointment RADIOLOGY Roosevelt Brown MD [address] [place] [address] Scheduled 1, [facility] [address] [place] [address] 08/05/2022 Office Visit ORTHOPEDICS Roosevelt Brown MD [address] [place] [address] Scheduled 1, [facility] [address] [place] [address] 08/20/2022 Office Visit Interventional Radiology Provider, Hesham haq Scheduled 1, [facility] [address] [place] [address] 08/21/2022 Office Visit MEDICINE Naomie Bal MBBS [address] [place] [address] Scheduled 1, [facility] [address] [place] [address] documented as of this encounter Visit Diagnoses Not on filedocumented in this encounter Care Teams Student Support Services Director Relationship Specialty Start Date End Date Lore Au, PT Physical Therapist Physical Therapy 07/09/[address] [place] [id number] documented as of this encounter
--- OUTSIDE RECORDS SUMMARY | 2022-07-23 20:32 | XMS_ITS | Clinical Summary ---
:1975 Author Organization [facility] Address [address] [place], [place] [address] [address] Phone Care Team Providers Name Role Phone Lore uA PT Unavailable Source Comments Minuum is fully rolled out on [employer]. Last update 03/09/09.[facility] Allergies No known active allergies Medications Be [...] hours as needed (pain adjunct (give with opioid)).Espino 1-2 c??psulas (25-50 mg) por v??a oral cada 4 horas seg??n sea necesario (complemento para el dolor (administrar con opioide)). bisacodyl Unwrap and insert 5 suppository 0 06/26/20 Active (DULCOLAX) 10 mg 1 suppository (10 22 rectal suppository mg) by Rectal route daily as needed for Constipation.De senvuelva e inserte 1 supositorio (10 mg) por v??a rectal diariamente seg??n sea necesario para el estre??imiento. cyclobenzaprine Take 1 tablet (5 90 tablet 0 06/26/20 Active (FLEXERIL) 5 mg mg) by mouth 3 22 oral TABS times daily. Espino 1 tableta (5 mg) por la boca 3 veces al porsche. polyethylene Take 17 g by 510 g 0 06/26/20 Acti ve glycol 3350 mouth twice 22 (MIRALAX/GLUCOLAX) daily.Take 1 17 gm/scoop oral capful to 17 gm powder cuate mixed with full glass of water twice every day as directed.Espino 17 g por v??a oral dos veces al d??a. Espino 1 tap??n hasta la minerva de 17 g mezclado con un vaso lleno de agua dos veces al d??a seg??n las indicaciones. sennosides-docusat Take 1 tablet by 40 each 0 06/26/20 Active e sodium (STOOL mouth twice 22 SOFTENER/LAXATIVE) daily. Espino 1 8.6-50 mg oral tableta por la tablet boca 2 veces al porsche. GABApentin Take 1 capsule 120 capsule 0 06/26/20 Ac tive (NEURONTIN) 400 mg (400 mg) by mouth 22 oral capsule 3 times daily. Espino 1 capsula (400 mg) por la boca 3 veces al porsche. tamsulosin Take 1 capsule 10 capsule 0 06/27/20 Act raymond (FLOMAX) 0.4 mg (0.4 mg) by mouth 22 oral capsule daily after meal.Take 30 minutes after same meal each day. Do NOT crush or chew.Espino 1 c??psula (0,4 mg) por v??a oral todos los d??as despu??s de ethan comida. Espino 30 minutos despu??s de la misma comida todos los d??as. No triture ni mastique. melatonin 3 mg Take 1 tablet (3 20 tablet 0 06/26/20 Active oral tablet mg) by mouth at 22 bedtime as needed for Sleep. Espino 1 tableta (3 mg) por la boca [...] Indications: Thrombosis Blood Clot in a Deep Vein.(Espino 1 tableta (20 mg) por v??a oral diariamente con la pig iron loader. 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 lidocaine 5 % Apply to affected 30 g 0 07/13/20 Active externally areas up to 3 22 ointment times daily. Aplicar en las ??reas afectadas hasta 3 veces al d??a. oxyCODONE Take 1-2 tablets 50 tablet 0 06/26/2006/27/ Dis continued (ROXICODONE) 5 mg (5-10 mg) [...] rivaroxaban Take 0.75 tablets 42 tablet 0 06/29/2006/26/ Discontinued (XARELTO) 20 mg (15 mg) by mouth 2021 (Reorder) oral twice daily with tabletIndications: meals. Deep Vein Indications: Thrombosis Blood Clot in a Deep Vein rivaroxaban Take 1 tablet (15 42 tablet 0 06/29/2007/20/ (XARELTO) 15 mg mg) by mouth 2021 oral twice daily with tabletIndications: meals for 21 Deep Vein days. Thrombosis Indications: Blood Clot in a Deep Vein. Espino 1 tableta (15 mg) por v??a oral dos veces al d??a con las comidas jennifer 21 d??as. 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 enoxaparin Inject 0.4 mL (40 3 each [...] 1 tablet (50 7 tablet 0 07/08/2007/05 1/ 50 mg oral TABS mg) by mouth at 2021 bedtime as needed for Pain. * TOME ETHAN TABLETA ORALMENTE ANTES DE ACOSTARSE CLEMENTE SEA NECESARIO PARA EL DOLOR lidocaine 5 % Apply to skin 5 % 30 g 0 07/13/20 externally twice daily. 2021 (Reord er) ointment oxyCODONE Take 1 tablet (5 10 tablet 0 07/15/2007/20/ Exp ired (ROXICODONE) 5 mg mg) by mouth 2021 oral tablet every 8 hours as needed for breakthrough pain. TOME ETHAN TABLETA CADA 8 HORAS CLEMENTE SEA NECESARIO PARA EL DOLOR INTENSIVO Active Problems Problem Noted Date Pelvic ring [...] Date Type Specialty Care Team Description 07/22/2022 Erroneous Encounter Interventional Provider, Hesham ORNELAS Radiology Rad ENCOUNTER-DISREGAR 1, [place] D (Primary Dx ) 07/21/2022 Telephone ORTHOPEDICS Gorge Dimas, Request RN Appointment (Ne eds to be reschedul ed with Ortho visi t on 07/22/22) 07/15/2022 Telephone ORTHOPEDICS Gorge Dimas, ER F/U (Orth o Dr RASHEL Brown) 07/14/2022 Emergency EMERGENCY MEDICINE Danny Rios Post-o dandy Thurston MD pain 07/15/2022 Areli Mccoy MD 07/14/2022 Travel 07/13/2022 Emergency EMERGENCY MEDICINE Mariano Taylor, Radicu lar pain of MD right lower extremity 07/13/2022 Travel 07/08/2022 Hospital Encounter RADIOLOGY Miri Matthew MD 1, [place] 07/08/2022 Office Visit ORTHOPEDICS Kevin, Pelvic ring fra cture, closed, subsequent encounter () (Primary Dx); Roosevelt Ravi MD Fracture of right wrist 1, [place] 07/08/2022 Hospital Encounter RADIOLOGY Patrice Hollins MD 1, [place] 07/08/2022 Hospital Encounter RADIOLOGY Roosevelt Brown MD 1, [place] 07/08/2022 Travel 07/07/2022 Telemedicine MEDICINE Martin Boyle, DVT (deep veno us thrombosis) () (Primary Dx); PharmD Pelvic ring fracture, closed, initial en counter () 1, [place] 07/07/2022 Orders Only ORTHOPEDICS Nidhi Ochoa Pelvic ring M, RN fracture, close d, subsequent encounter () (Primary Dx) 06/29/2022 Emergency EMERGENCY MEDICINE Sascha Mendez Pain - S, DO 06/30/2022 06/29/2022 Travel 06/24/2022 Anesthesia Event SURGERY Vish Aguirre MD Armstrong, Zoey, SRNA 06/24/2022 Surgery SURGERY Templeman, OPEN REDUCTION Roosevelt Ravi MD INTERNAL FIXATI ON RIGHT SI JOINT 06/24/2022 Documentation Only Mixer And Scaler, Services 06/20/2022 Orders Only Unknown, Provider 06/20/2022 Orders Only Unknown, Provider 06/19/2022 Orders Only Unknown, Provider 06/19/2022 Orders Only Unknown, Provider 06/19/2022 Orders Only Unknown, Provider 06/18/2022 Anesthesia Event SURGERY Alex Leos MD Jensen, Kristan Sanchez MD 06/18/2022 Surgery SURGERY Kevin, ORIF, PELVIS Roosevelt Ravi MD 06/18/2022 Orders Only Unknown, Provider 06/15/2022 Hospital Encounter SURGERY Kingston Castañeda, in [facility] - MD Chanel encounter 06/27/2022 Patrice Hollins MD 06/15/2022 Travel from Last [...] 07/25/2022 Appointment RADIOLOGY Patrice Hollins MD [address] [phone] Scheduled 1, [place] [address] [place] [address] 07/25/2022 Office Visit NEUROSURGERY Eusebio, BRITTNEY Cantu [address] [place] [phone] Scheduled 1, [place] [address] [place] [address] 07/25/2022 Appointment PHYSICAL MEDICINE AND REHAB Lore Aguilar, PT Scheduled [address] [address] (Wo rk) 08/05/2022 Appointment ORTHOPEDICS 1, [place] Scheduled [address] [place] [address] 08/05/2022 Appointment RADIOLOGY Roosevelt Brown MD [address] [place] [phone] Scheduled 1, [place] [address] [place] [address] 08/05/2022 Appointment RADIOLOGY Roosevelt Brown MD [address] [place] [phone] Scheduled 1, [place] [address] [place] [address] 08/05/2022 Office Visit ORTHOPEDICS Roosevelt Borwn MD [address] [place] [phone] Scheduled 1, [place] [address] [place] [address] 08/20/2022 Office Visit Interventional Radiology Provider, Hesham haq Scheduled 1, [place] [address] [place] [address] 08/21/2022 Office Visit MEDICINE Naomie Bal MBBS [address] [place] [address] Scheduled 1, [place] [address] [facility] [place] [address] Health Maintenance Due Date Last Done Comments [...] to pic Medical Devices Implanted Type Area Hydrodynamics Professor Device Shelf Model / Identifier Expiration Serial / Lot Date Gelfoam(Surgifoam) Sz 100 3x5 (Large) 1973 Hemostatic Right: BECKY PIKE & 11/14/2025 [id number] / Implanted: Qty: 1 on 06/24/2022 by Roosevelt Brown MD at [facility] Agent Pelvis MORENA / [id number] 3-Hole ([id number]) Plate Right: BERNADINE BIOMET [id number] / Implanted: Qty: 1 on 06/24/2022 by Roosevelt Brown MD at [facility] Pelvis / 170mm, 75mm [id number] Screw/[place] BERNADINE BIOMET [id number] / Implanted: Qty: 1 on 06/18/2022 by Roosevelt Brown MD at [facility] ITAL / 95mm ([id number]) Screw/[place] Right: BERNADINE BIOMET [id number] / Implanted: Qty: 1 on 06/24/2022 by Roosevelt Brown MD at [facility] Pelvis / Washer 13mm Large [id number] Lg Washer Right: BERNADINE BIOMET [id number] / Implanted: Qty: 1 on 06/24/2022 by Roosevelt Brown MD at [facility] Pelvis / Procedures Procedure Name Priority [...] Signature POC Glucose 93 70 - 100 [facility] mg/dL CAMPUS - POINT OF CARE Specimen (Source) Anatomical Collection Method Collection Time Re ceived Time Location / / Volume Laterality Blood 06/27/2022 4:16 PM CDT Kingston Castañeda MD LABORATORY Performing Organization Address City/State/ZIP Code Phon e Number [facility] C[facility]US - POINT OF CARE [address] [place] [address] (ABNORMAL) PANEL BASIC METABOLIC (BMP) (06/27/2022 4:57 AM CDT)Only the most recent of5 resultswithin the time period is included. athologist Signature Sodium 134 (L) 135 - 148 [facility] mEq/L Potassium 4.2 3.5 - 5.3 [facility] mEq/L Chloride 98 92 - 108 [facility] mEq/L CO2 25 22 - 30 [facility] mEq/L AnGap 11 8 - 16 [facility] mEq/L Glucose 156 (H) 70 - 100 [facility] mg/dL BUN 15 6 - 20 [facility] mg/dL Creatinine 0.59 (L) 0.70 - 1.25 [facility] mg/dL Calcium 9.2 8.6 - 10.0 [facility] mg/dL eGFR, High >120 >=60 [facility] ml/min/1.73 m2 Comment: Calculated using CKD-EPI equati on eGFR, Low >120 >=60 ml/min/1.73m2 [facility] Comment: Calculated using CKD-EPI equati on Specimen Anatomical Collection Method Collection Time Receive d Time (Source) Location / / Volume Laterality Blood 06/27/2022 4:57 AM 2 5:23 CDT AM CDT Patrice Hollins MD LABORATORY Performing Organization Address City/State/ZIP Code Phon e Number [facility] [place] [facility] [place] [address] (ABNORMAL) CBC WITH PLATELET (06/27/2022 4:57 AM CDT)Only the most recent of9 resultswithin the time period is included. P athologist Signature WBC 13.15 (H) 4.00 - [facility] 10.00 k/cmm RBC 3.11 (L) 4.60 - 6.00 [facility] m/cmm Hgb 8.7 (L) 13.1 - 17.5 [facility] g/dL Hematocrit 26.4 (L) 40.0 - 51.0 [facility] % MCV 84.9 80.0 - [facility] 100.0 fL MCH 28.0 25.0 - 32.0 [facility] pg MCHC 33.0 31.0 - 36.0 [facility] g/dL RDW 13.5 11.5 - 14.5 [facility] % Plt 497 (H) 150 - 400 [facility] k/cmm MPV 9.5 6.5 - 12.5 [facility] fL Specimen Anatomical Collection Method Collection Time Receive d Time (Source) Location / / Volume Laterality Blood 06/27/2022 4:57 AM 2 5:23 CDT AM CDT Patrice Hollins MD LABORATORY Performing Organization Address [facility]/ZIP [facility] Phon e Number [facility] [place] [place] [address] (ABNORMAL) PANEL RENAL (06/26/2022 6:41 AM CDT)Only the most recent of3 results within the time period is included. athologist Signature Sodium 131 (L) 135 - 148 [facility] mEq/L Potassium 4.1 3.5 - 5.3 [facility] mEq/L Chloride 93 92 - 108 [facility] mEq/L CO2 27 22 - 30 [facility] mEq/L AnGap 11 8 - 16 [facility] mEq/L Glucose 151 (H) 70 - 100 [facility] mg/dL BUN 15 6 - 20 [facility] mg/dL Creatinine 0.69 (L) 0.70 - 1.25 [facility] mg/dL Calcium 8.9 8.6 - 10.0 [facility] mg/dL Albumin 3.5 (L) 3.8 - 5.1 [facility] g/dL Phosphorus 4.3 2.5 - 4.5 [facility] mg/dL eGFR, High >120 >=60 [facility] ml/min/1.73 m2 Comment: Calculated using CKD-EPI equati on eGFR, Low 115 >=60 ml/min/1.73m2 [facility] Comment: Calculated using CKD-EPI equati on Specimen Anatomical Collection Method Collection Time Receive d Time (Source) Location / / Volume Laterality Blood 06/26/2022 6:41 AM 7:47 CDT AM CDT Patrice Hollins MD LABORATORY Performing Organization Address City/[facility]/ZIP Code Phon e Number [facility] [place] [place] [address] (ABNORMAL) PANEL LIPID (06/26/2022 6:41 AM CDT) athologist Signature Cholesterol 128 <=200 mg/dL [facility] Comment: Interpretive Data <200 Desirable 200-239 Borderline high >=240 High Triglyceride 178 (H) <=150 mg/dL [facility] Comment: Interpretive Data <150 Normal 150-199 Borderline high 200-499 High >=500 Very high HDL 31 (L) >=40 mg/dL [facility] Comment: Interpretive Data Normal > 40 Male > 50 Female Calc LDL 61 <=100 mg/dL [facility] Comment: Interpretive Data <100 Desirable 100-129 Above desirable 130-159 Borderline high 160-189 High >=190 Very high Non-HDL Cholesterol Calculated 97 <=130 mg/dL [facility] Comment: Interpretive Data <130 Desirable 130-159 Above desirable 160-189 Borderline high 190-219 High >=220 Very high Specimen Anatomical Collection Method Collection Time Receive d Time (Source) Location / / Volume Laterality Blood 06/26/2022 6:41 AM 2 CDT 12:[address] [facility] - 06/26/2022 1:12 PM CDT Fasting: No Patrice Hollins MD LABORATORY Performing Organization Address City/State/ZIP Code Phon e Number [facility] [place] [place] [address] OSMOLALITY,URINE-RANDOM ASIA (06/25/2022 5:08 PM CDT) athologist Signature Urine Osmo 528 50 - 800 [facility] mOsm/Kg Specimen Anatomical Collection Method Collection Time Receive d Time (Source) Location / / Volume Laterality Urine 06/25/2022 5:08 PM 2 5:39 CDT PM CDT Patrice Hollins MD LABORATORY Performing Organization Address City/[facility]/ZIP Code Phon e Number [facility] [place] [address] (ABNORMAL) SODIUM,URINE-RANDOM ASIA (06/25/2022 5:08 PM CDT) athologist Signature Sodium Urine 30 (L) 40 - 200 [facility] mEq/L Specimen Anatomical Collection Method Collection Time Receive d Time (Source) Location / / Volume Laterality Urine 06/25/2022 5:08 PM 2 5:39 CDT PM CDT Patrice Hollins MD LABORATORY Performing Organization Address City/[facility]/ZIP Code Phon e Number [facility] [place] [address] PELVIS NO IV CON+ 3D [...] Signature Serum Osmo 299 285 - 305 [facility] mOsm/Kg Specimen Anatomical Collection Method Collection Time Receive d Time (Source) Location / / Volume Laterality Blood 06/25/2022 5:51 AM 4:44 CDT PM CDT Patrice Hollins MD LABORATORY Performing Organization Address City/State/ZIP Code Phon e Number [facility] [place] [place] [address] XR C ARM OVER 3 HRS [...] and clear Preoxygenation: mask Device Device used: [place] Supporting device: ?? Blade size: 2 The [...] unchanged Performed by: Anesthesiologist: Vish Aguirre MD SUPERVISOR COMPRESSED YEAST: Shanti Kruse APRN, CRNA Other: ?? [id number] [address] [id number] Events: @ON LICENSE OF [facility]([id number])@ Vish Aguirre MD PROCEDURES RED BLOOD CELLS LEUKOCYTE REDUCED ADULT (BLOOD ADMIN) (06/24/2022 8:39 AM CDT) P athologist Signature RBC Ready Product [facility] Ready Specimen Anatomical Collection Method Collection Time Receive d Time (Source) Location / / Volume Laterality Other 06/24/2022 8:39 AM 2 8:39 [address] [facility] - 06/24/2022 8:45 AM CDT 2 units application design engineer to OR to have available in case 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 bleeding Is a signed informed consent on file: Ludwig s-on file Reason for Transfusion:->Anticipated Blo od Loss for Surgery/Procedure Does patient require irradiated product: No 2 Units Miri Matthew MD BLOOD BANK ORDERABLES (BLOOD ADMIN) Performing Organization Address City/[facility]/ZIP Code Phon e Number [facility] [place] [address] (ABNORMAL) ANTI XA HEPARIN UNFRACTIONATED (06/24/2022 7:04 AM CDT)Only the most recent of16 resultswithin the time period is included. athologist Signature Anti XA Hep U 0.12 (L) 0.30 - [facility] 0.70 IU/mL Specimen Anatomical Collection Method Collection Time Receive d Time (Source) Location / / Volume Laterality Blood 06/24/2022 7:04 AM 2 7:35 CDT AM CDT Patrice Hollins MD LABORATORY Performing Organization Address City/[facility]/ZIP Code Phon e Number [facility] [place] [address] MAGNESIUM (06/24/2022 5:43 AM CDT) athologist Signature Magnesium 2.0 1.6 - 2.6 [facility] mg/dL Specimen Anatomical Collection Method Collection Time Receive d Time (Source) Location / / Volume Laterality Blood 06/24/2022 5:43 AM 2 6:18 CDT AM CDT Patrice Hollins MD LABORATORY Performing Organization Address City/[facility]/ZIP Code Phon e Number [facility] [place] [address] (ABNORMAL) PROTHROMBIN (PT) & INR (06/22/2022 10:53 AM CDT)Only the most recent of2 resultswithin the time period is included. athologist Signature PT 13.9 (H) 9.0 - 12.5 [facility] sec INR 1.2 (H) 0.8 - 1.1 [facility] Specimen Anatomical Collection Method Collection Time Receive d Time (Source) Location / / Volume Laterality Blood 06/22/2022 10:53 06/22/2022 AM CDT 11:01 AM CDT Patrice Hollins MD LABORATORY Performing Organization Address City/[facility]/ZIP Code Phon e Number [facility] [place] [address] ANTIBODY SCREEN (06/22/2022 10:53 AM CDT)Only the most recent of2 resultswithin the time period is included. athologist Signature Sabrina Screen Negative [facility] Specimen Anatomical Collection Method Collection Time Receive d Time (Source) Location / / Volume Laterality Blood 06/22/2022 10:53 06/22/2022 AM CDT 11:02 AM CDT Patrice Hollins MD LAB TRANSFUSION SERVICES Performing Organization Address City/[facility]/ZIP Code Phon e Number [facility] [place] [address] BLOOD TYPING-ABO/RH (06/22/2022 10:53 AM CDT)Only the most recent of2 results within the time period is included. athologist Signature ABORHG A POS [facility] Specimen Anatomical Collection Method Collection Time Receive d Time (Source) Location / / Volume Laterality Blood 06/22/2022 10:53 06/22/2022 AM CDT 11:02 AM CDT Patrice Hollins MD LAB TRANSFUSION SERVICES Performing Organization Address City/[facility] Code Phon e Number [facility] [place] [address] COVID-19 SURVEILLANCE (06/22/2022 7:10 AM CDT)Only the most recent of2 results within the time period is included. [facility] gist Method Time Signature COVID-[address] [facility] Specimen (Source) Anatomical Collection Method Collection Time Re ceived Time Location / / Volume Laterality Nasopharyngeal Swab 06/22/2022 7:10 06/22 AM CDT 11:[address] [facility] - 06/22/2022 12:26 PM CDT Preferred specimen is Nasopharyngeal swab Is the patient a healthcare employee: No Is the patient a Nacho ([facility] [facility]) Employee : No Patrice Hollins MD LABORATORY Performing Organization Address City/[facility]/ZIP Code Phon e Number [facility] [place] [address] ANTI XA ASSAY LMW HEPARIN (06/22/2022 5:25 AM CDT) athologist Signature Anti XA LMW 0.63 IU/mL [facility] Comment: Anti Xa Assay LMW Heparin Therapeutic Ra nges: 0.4-1.1 IU/mL for twice daily 1.0-2.0 IU/mL for once daily Specimen Anatomical Collection Method Collection Time Receive d Time (Source) Location / / Volume Laterality Blood 06/22/2022 5:25 AM 5:39 CDT AM CDT Patrice Hollins MD LABORATORY Performing Organization Address City/[facility]/ZIP Code Phon e Number [facility] [place] [address] XR ANKLE RIGHT 3 V AP/OBL/LAT* [...] is included. athologist Signature SST TUBE Stored [facility] Comment: SST tubes (Serum Separator) are stored in the lab for 3 days from the collection date. Specimen Anatomical Collection Method Collection Time Receive d Time (Source) Location / / Volume Laterality Blood 06/20/2022 1:05 AM 1:05 CDT AM CDT Kingston Castañeda MD LABORATORY Performing Organization Address City/State/ZIP Code Phon e Number [facility] [place] [address] XR FOOT RIGHT 3 V AP/OBL/LAT* [...] Radiologist: Dora Mathew Tamera Wilder PA-C X-RAY CT PELVIS 3D RECONSTRUCTION (06/19/2022 11:49 [...] fractures are unchanged. Reading Radiologist: Rizwan Cunningham 06/19/2022 8:[address] of the [...] 5:00 PM CDT) Narrative Rissa Person APRN, SUPERVISOR COMPRESSED YEAST - 5:00 PM CDT Rissa Person APRN, [...] d and oral mucosa unchanged Performed by: SUPERVISOR COMPRESS[employer] YEAST: Rissa Person APRN, CRNA Additional Notes Glidescope used d/t patient being down i n bed with traction to leg Events: @PLINK([id number])@ Alex Leos MD PROCEDURES .Post Sedation Immediate [...] the needle into the IVC. A 5 [place] pigtail flush catheter was advanced over the [...] the needle into the IVC. A 5 [place] pigtail flush catheter was advanc ed over [...] was unremarkable. No extravasatio n was demonstrated. Cassandra Developer: Kirby Complications: None Fluoroscopy time: 22 seconds [...] urethra was unremarkable. No extravasation was demonstrated. Cassandra Developer: Kirby Complications: None Fluoroscopy time: 22 seconds [...] acetabular and right sacral fractures Reading Radiologist: Yovany Delgado Narrative 06/16/2022 12:35 PM CDT Indication: Pelvic ring injury, eval tab ?? Comparison: CT dated 06/15/2022 Findings: Transverse fractures with mild comminution involving the root of the superior pubic ramus and the mid inferior pubic ramus on the right side. Also posterior right acetabular fracture. Vertical ly oriented fracture through the right s acral wing with mild impaction. Procedure Note Yovany Delgado MD - 06/16/2022Format ting of this [...] acetabular and right sacral fractures Reading Radiologist: Yovany Delgado Kingston Castañeda MD X-RAY XR CYSTOGRAM [...] 06/15/2022. Fluoroscopy time: ??22 seconds Dose:12 mGy [place] protocol was followed. ?? Technique: The patient [...] 06/15/2022. Fluoroscopy time: 22 seconds Dose:12 mGy [place] protocol was followed. Technique: The patient arrived [...] athologist Signature Lactate 0.7 0.7 - 2.1 [facility] mmol/L Specimen Anatomical Collection Method Collection Time Receive d Time (Source) Location / / Volume Laterality Blood 06/16/2022 2:20 AM 2 2:47 CDT AM CD[address] [facility] - 06/16/2022 3:06 AM CDT Send specimen on ice! Gideon Dyer MD LABORATORY Performing Organization Address City/State/ZIP Code Phon e Number [facility] [address] (ABNORMAL) URINALYSIS,TOTAL (06/16/2022 12:20 AM CDT) [facility] Method Time Signature Color YELLOW YELLOW [...] 5 perHPF [facility] Mucus 1+ perLPF [facility] Sperm PRESENT [facility] Bacteria UA PRESENT [facility] Comment: Presence of bacteria does not n ecessarily indicate a UTI. The presence of bacteria can indicate a non-clean catch urine specimen. Bacteria should be used in conjunction with other UA results and cl inical presentation to assist in diagnosing an infection. Urinalysis Performed at: [facility] Specific [place] 1.010 1.003 - 1.030 [facility] Specimen Anatomical Collection Method Collection Time Receive d Time (Source) Location / / Volume Laterality Urine 06/16/2022 12:20 06/16/2022 AM CDT 12:39 AM CDT Gideon Dyer MD LABORATORY Performing Organization Address City/State/ZIP Code Phon e Number [facility] [place] [place] [address] XR KNEE RIGHT 2 V AP/LAT (06/15/2022 [...] canal or neural foraminal stenosis. 3. Suspected [place] syndrome on the left. Reading Radiologist: Stephany [...] visualized paraspi nous tissues is noted. Suspected [place] syndrome on left. Procedure Note Stephany Granda [...] visualized paraspi nous tissues is noted. Suspected [place] syndrome on left. IMPRESSION Impression: 1. No fracture or subluxation of the cer vical vertebrae. 2. No significant spinal canal or neural foraminal stenosis. 3. Suspected [place] syndrome on the left. Reading Radiologist: Stephany [...] styloid process, which can be seen in [place] syndrome. The visualized portions of the paranasal [...] styloid process, which can be seen in [place] syndrome. The visualized portions of the paranasal [...] PM CDT) athologist Signature CASTAÑEDA TUBE Stored [facility] Comment: Castañeda top (Sodium flouride) tube s are stored in the lab for 3 days from the collection date. Specimen Anatomical Collection Method Collection Time Receive d Time (Source) Location / / Volume Laterality Blood 06/15/2022 7:20 PM 2 7:31 CDT PM CDT Kingston Castañeda MD LABORATORY Performing Organization Address City/State/ZIP Code Phon e Number [facility] [place] [place] [address] HS TROPONIN (06/15/2022 7:20 PM CDT) athologist Signature HS Troponin I 4 <=34 ng/L [facility] Specimen Anatomical Collection Method Collection Time Receive d Time (Source) Location / / Volume Laterality Blood 06/15/2022 7:20 PM 2 7:41 CDT PM CDT [address] [facility] - 06/15/2022 8:11 PM CDT First Occurrence of the Troponin order i s to be drawn Stat by Nursing staff on the unit. Gideon Dyer MD LABORATORY Performing Organization Address City/State/ZIP Code Phon e Number [facility] [place] [place] [address] (ABNORMAL) ED CHEMISTRY LABS(NA,K,CL,CO2,GLU,CREAT,CA-IONIZED,ANION GAP) (06/15/2022 7:20 PM CDT) Analysis Performed At Patho logist Time Signature Sodium 140 135 - 148 [facility] mEq/L Chloride 109 (H) 92 - 108 [facility] mEq/L AnGap 8 8 - 16 [facility] mEq/L Glucose 186 (H) 70 - 100 [facility] mg/dL ICA, Actual 4.44 4.40 - [facility] 5.20 mg/dL ICA, pH 4.28 (L) 4.40 - [facility] Corrected 5.20 mg/dL Creatinine 1.00 0.70 - [facility] 1.25 mg/dL BICARB 24 22 - 26 [facility] mEq/L eGFR, High 105 >=60 [facility] ml/min/1.7 3m2 Comment: Calculated using CKD-EPI equati on eGFR, Low 90 >=60 ml/min/1.73m2 [facility] Comment: Calculated using CKD-EPI equati on Potassium 3.6 3.5 - 5.3 mEq/L [facility] Specimen Anatomical Collection Method Collection Time Receive d Time (Source) Location / / Volume Laterality Blood 06/15/2022 7:20 PM 7:30 CDT PM CDT Gideon Dyer MD LABORATORY Performing Organization Address City/State/ZIP Code Phon e Number [facility] [place] [place] [address] (ABNORMAL) CBC WITH PLTS/AUTO DIFF (06/15/2022 7:20 PM CDT) Patholo gist Method Time Signature WBC 14.21 (H) 4.00 - [facility] 10.00 k/cmm RBC 4.65 4.60 - [facility] 6.00 m/cmm Hgb 13.0 (L) 13.1 - [facility] 17.5 g/dL Hematocrit 39.7 (L) 40.0 - [facility] 51.0 % MCV 85.4 80.0 - [facility] 100.0 fL MCH 28.0 25.0 - [facility] 32.0 pg MCHC 32.7 31.0 - [facility] 36.0 g/dL RDW 13.2 11.5 - [facility] 14.5 % Plt 294 150 - 400 [facility] k/cmm MPV 10.6 6.5 - 12.5 [facility] fL Automated Abs 10.31 (H) 1.70 - [facility] Neutrophil 6.50 k/cmm Comment: Preliminary ANC, Final Result t o Follow Abs Immature Granulocyte 0.26 (H) 0.00 - 0.09 k/cmm [facility] Comment: The Immature Granulocyte Absolu te count contains metamyelocytes and myelocytes. Abs Neutrophil 10.31 (H) 1.70 - 6.50 k/cmm [facility] B Abs Lymphocyte 2.74 0.80 - 4.00 k/cmm [facility] B Abs Monocyte 0.67 0.20 - 1.00 k/cmm [facility] Abs Eosinophil 0.20 0.00 - 0.60 k/cmm [facility] B Abs Basophil 0.03 0.00 - 0.20 k/cmm [facility] Specimen Anatomical Collection Method Collection Time Receive d Time (Source) Location / / Volume Laterality Blood 06/15/2022 7:20 PM 2 7:41 CDT PM CDT Gideon Dyer MD LABORATORY Performing Organization Address City/State/ZIP Code Phon e Number [facility] [place] [place] [address] ED HEMOGLOBIN TOTAL (ED ONLY) (06/15/2022 7:20 PM CDT) P athologist Signature Hgb 13.7 13.1 - 17.5 [facility] g/dL Specimen Anatomical Collection Method Collection Time Receive d Time (Source) Location / / Volume Laterality Blood 06/15/2022 7:20 PM 2 7:30 CDT PM CDT Gideon Dyer MD LABORATORY Performing Organization Address City/State/ZIP Code Phon e Number [facility] [place] [address] PRECAUTIONARY TUBE (06/15/2022 7:20 PM CDT) Patholo gist Method Time Signature Prec Tube Precautionary [facility] Blood Bank Specimen Received. Specimen Anatomical Collection Method Collection Time Receive d Time (Source) Location / / Volume Laterality Blood 06/15/2022 7:20 PM 2 7:43 CDT PM CDT Gideon Dyer MD LAB TRANSFUSION SERVICES Performing Organization Address City/[facility]/ZIP Code Phon e Number [facility] [place] [address] BLOOD GASES (06/15/2022 7:20 PM CDT) athologist Signature PH Anish 7.33 7.32 - 7.42 [facility] PCO2 Anish 46 41 - 51 [facility] mmHG PO2 Anish 35 25 - 40 [facility] mmHG Bicarb Anish 24 24 - 28 [facility] mEq/L O2 Sat Anish 62 % [facility] Base Exc Anish -2.9 -10.0 - 2.0 [facility] mEq/L Specimen Anatomical Collection Method Collection Time Receive d Time (Source) Location / / Volume Laterality Blood Venous 06/15/2022 7:20 PM 2 7:30 CDT PM CDT Gideon Dyer MD LABORATORY Performing Organization Address City/[facility]/ZIP Code Phon e Number [facility] [place] [address] (ABNORMAL) FIBRINOGEN (06/15/2022 7:20 PM CDT) athologist Signature Fibrinogen 199 (L) 200 - 400 [facility] mg/dL Specimen Anatomical Collection Method Collection Time Receive d Time (Source) Location / / Volume Laterality Blood 06/15/2022 7:20 PM 2 7:41 CDT PM CDT Gideon Dyer MD LABORATORY Performing Organization Address City/[facility]/ZIP Code Phon e Number [facility] [place] [address] (ABNORMAL) PTT (APTT) (06/15/2022 7:20 PM CDT) athologist Signature APTT 21.4 (L) 25.0 - 37.0 [facility] sec Specimen Anatomical Collection Method Collection Time Receive d Time (Source) Location / / Volume Laterality Blood 06/15/2022 7:20 PM 7:41 CDT PM CDT Gideon Dyer MD LABORATORY Performing Organization Address City/State/ZIP Code Phon e Number [facility] [place] [address] ED US CRITICAL CARE (06/15/2022 7:16 [...] Effective Phone Address T ype Group Dates ID MEDICAID ID EMERGENCY [id number] 2022-Pres [phone] [facility] [address] ID Fee For MEDICAL ent [phone] [place] [address] Advance Directives For more information, please contact: [phone] Latest Code Status on File Code Status Date Activated Date Inactivated Comments Full Code 06/16/2022 1:25 AM 06/27/2022 9:04 PM Question Answer Comments Does the Patient have preferences regarding life sustaining No measures (these options only apply when the patient has a pulse): Discussed Code Status With Whom? Not discussed Care Teams Button Tufter Relationship Specialty Start Date End Date Lore Au, PT Physical Therapist Physical Therapy 07/09/22 [address] [place] [address]
--- OUTSIDE RECORDS SUMMARY | 2022-07-23 20:32 | XMS_ITS | Encounter Summary ---
:1975 Author Organization [facility] Address [address] [place] [address] Phone Care Team Providers Name Role Phone Lore Au PT Unavailable Encounter Details Date Type Department Care Team Description 07/07/2022 Orders Only Clinic & Specialty Nidhi Ochoa Pelvi c ring fracture, [place] director quality systems closed, subsequent Clinic [id number] encounter () (Primary [address] Dx) [place], [place] [address] Social History Tobacco Use Types Packs/Day Years [...] Appointment RADIOLOGY Patrice Hollins MD [address] [phone] Scheduled 1, [place] [address] [place] [address] 07/25/2022 Office Visit NEUROSURGERY Eusebio, Briana Reyes PA [facility] [address] [place] [address] Scheduled 1, [place] [address] [place] [address] 07/25/2022 Appointment PHYSICAL MEDICINE AND REHAB Lore Aguilar, PT Scheduled [address] [place] [address] (Wo rk) 08/05/2022 Appointment ORTHOPEDICS 1, [place] Scheduled [address] [place] [address] 08/05/2022 Appointment RADIOLOGY Roosevelt Brown MD [address] [place] [address] Scheduled 1, [place] [address] [place] [address] 08/05/2022 Appointment RADIOLOGY Roosevelt Brown MD [address] [place] [address] Scheduled 1, [place] [address] [place] [address] 08/05/2022 Office Visit ORTHOPEDICS Roosevelt Brown MD [address] [place] [address] Scheduled 1, [place] [address] [place] [address] 08/20/2022 Office Visit Interventional Radiology Provider, Int d Scheduled 1, [place] [address] [place] [address] 08/21/2022 Office Visit MEDICINE Naomie Bal MBBS [address] [place] [address] Scheduled 1, [place] [address] [place] [address] documented as of this encounter Results XR [...] () documented in this encounter Care Teams Poultry Farmer Meat Relationship Specialty Start Date End Date Lore Au, PT Physical Therapist Physical Therapy 07/09/[address] [place] [address] [place] [address] documented as of this encounter
--- OUTSIDE RECORDS SUMMARY | 2022-07-23 20:32 | XMS_ITS | Encounter Summary ---
:1975 Author Organization [facility]Note 2] Address [address] [place] [address] Phone Care Team Providers Name Role Phone Unavailable Primary Care Provider Unavailable Reason for Visit Reason Comments Anticoagulation Visualization Developer 119 Consult/Test/Treat (Routine) - Closed Specialty Diagnoses / Procedures Referred By Contact Refer red To Contact Diagnoses Pelvic ring fracture, closed, initial encounter () Patrice Hollins MD [address] [phone] Referral ID Status Reason Start Date Expiration Date Visits Requ ested Visits Authorized [id number] Closed 06/27/2022 06/28/2023 1 1 Encounter Details Date Type Department Care Team Description 07/07/2022 Telemedicine Clinic & Specialty Martin Boyle, PharmD [address] [place] [id number] DVT (deep venous thrombosis) () (Prima ry Dx); Center Internal 1, [place] [address] [place] [address] Pelvic ring fracture, closed, initial en counter () Medicine Clinics [address] [address] Social History Tobacco Use Types Packs/Day Years [...] this telephone encounter with the assistance of [place] telephone wash tank tender. CMR Last Completed: N/A Subjective Objective: Anticoagulation: [...] that he has an outside PCP in [place] who he plans to return to when he feels better. He does have specialty care and appointments at [facility][Note 2] coming up. 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 [place] 1 tableta (5 mg) por la boca 3 veces al mandy. Muscle Spasms Pain GABApentin 400 mg Capsule Commonly known as: NEURONTIN Take 1 capsule (400 mg) by mouth 3 times daily. [place] 1 capsula (400 mg) por la boca [...] hours as needed (pain adjunct (give with opioid)).[place] 1-2 c??psulas (25-50 mg) por v??a oral cada 4 horas seg??n sea necesario (complemento para el dolor (administrar con opioide)). Augment pain (given with opioid) melatonin 3 mg tablet Take 1 tablet (3 mg) by mouth at bedtime as needed for Sleep. [place] 1 tableta (3 mg) por la boca [...] glass of water twice every day as directed.T[place] 17 g por v??a oral dos veces al d??a. [place] 1 tap??n hasta la minerva de 17 g mezclado con un vaso lleno de agua dos veces al d??a seg??n las indicaciones. Constipation Xarelto 15 mg tablet Generic drug: rivaroxaban Take 1 tablet (15 mg) by mouth twice daily with meals for 21 days. Indications: Blood Clot in a DeepVein. [place] 1 tableta (15 mg) por v??a oral dos veces al d??a con las comidas jennifer 21 d??as. 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 Blood Clot in a Deep Vein rivaroxaban 20 mg tablet Commonly known as: XARELTO Take 1 tablet (20 mg) by mouth daily with evening meal. Indications: Blood Clot in a Deep Vein.([place] 1 tableta (20 mg) por v??a oral diariamente con la evonne. 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 Start taking on: July 20, 2022 Blood Clot in a Deep Vein Senexon-S 8.6-50 mg tablet Generic drug: sennosides-docusate sodium Take 1 tablet by mouth twice daily. [place] 1 tableta por la boca 2 veces [...] meal each day. Do NOT crush or chew.[place] 1 c??psula (0,4 mg) por v??a oral todos los d??as despu??s de ethan comida. [place] 30 minutos despu??s de la misma comida [...] Distant site (telephone provider location): Onsite at [facility] Telephone start time (include am/pm designation): 3:30 PM Telephone end time (include am/pm designation): 4:10 PM Social History Tobacco Use Smoking status: Never Patient Active Problem List Diagnosis Open wound of arm Open wound of arm without complication Fall, initial encounter Pelvic ring fracture, closed, initial encounter () ------- Pharmacy Use Only: [place]: [place] / Plan[place] EMERGENCY MEDICAL ASSISTANCE / Product Type: [place] Fee For Service / Medication Management Type [...] 07/25/2022 Appointment RADIOLOGY Patrice Hollins MD [address] [id number] Scheduled 1, [place] [address] [place] [address] 07/25/2022 Office Visit NEUROSURGERY Eusebio, Briana Reyes, PA [facility] [address] [place] [phone] Scheduled 1, [place] [address] [place] [address] 07/25/2022 Appointment PHYSICAL MEDICINE AND REHAB Lore Aguilar, PT Scheduled [address] [place] [address] (Wo rk) 08/05/2022 Appointment ORTHOPEDICS 1, [place] Scheduled [address] [place] [address] 08/05/2022 Appointment RADIOLOGY Roosevelt Brown MD [address] [place] [address] Scheduled 1, [place] [address] [place] [address] 08/05/2022 Appointment RADIOLOGY Roosevelt Brown MD [address] [place] [address] Scheduled 1, [place] [address] [place] [address] 08/05/2022 Office Visit ORTHOPEDICS Roosevelt Brown MD [address] [place] [address] Scheduled 1, [place] [address] [place] [address] 08/20/2022 Office Visit Interventional Radiology Provider, Hesham haq Scheduled 1, [place] [address] [place] [address] 08/21/2022 Office Visit MEDICINE Naomie Bal MBBS [address] [place] [address] Scheduled 1, [place] [address] [place] [address] Scheduled Referrals Name Type Priority Associated Diagnoses Order S jovany JUAREZ REFERRAL - Referral Routine Pelvic ring fracture, Ordered: 06/27/2022 DOAC closed, initial encounter () documented as of this encounter Visit Diagnoses Diagnosis DVT (deep venous thrombosis) () - Prim mikala Acute venous embolism and thrombosis of unspecified deep vessels of lower extremity Pelvic ring fracture, closed, initial en counter () documented in this encounter
--- OUTSIDE RECORDS SUMMARY | 2022-07-23 20:32 | XMS_ITS | Encounter Summary ---
:1975 Author Organization [facility] Address [address] [place] [address] Phone Care Team Providers Name Role Phone Lore Au PT Unavailable Reason for Visit Reason Onset Date Comments ER F/U 07/15/[address] Brown Encounter Details Date Type Department Care Team Description 07/15/2022 Telephone Clinic & Specialty Gorge Dimas, HOB MACHINE OPERATOR F/U ([facility] [address] [facility]) Clinic [place] [address] Social History Tobacco Use Types Packs/Day Years [...] call to Bertram using [place] phone pearl diver. Bertram reports that his pain has improved [...] but call was lost when I added registered nurse step down and then he didn't answer when return call was made. registered nurse step down left message for Bertram to return call [...] ED frequently for pain. The ED called nisha asking for recs and to alert us. I wonder if he needs to be evaluated by his surgeon sooner? Ormaybe a pain clinic referral? Thanks! Milvia documented in this encounter Plan of Treatment Upcoming Encounters Date Type Specialty Care Team Description 07/25/2022 Appointment RADIOLOGY Patrice Hollins MD [address] [place] [address] Scheduled 1, [place] [address] [place] [address] 07/25/2022 Office Visit NEUROSURGERY Briana Kaplan PA -C [address] [place] [address] Scheduled 1, [place] [address] [place] [address] 07/25/2022 Appointment PHYSICAL MEDICINE AND REHAB Lore Aguilar, PT Scheduled [address] [place] [address] (Wo rk) 08/05/2022 Appointment ORTHOPEDICS 1, [place] Scheduled [address] [place] [address] 08/05/2022 Appointment RADIOLOGY Roosevelt Brown MD [address] [place] [address] Scheduled 1, [place] [address] [place] [address] 08/05/2022 Appointment RADIOLOGY Roosevelt Brown MD [address] [place] [address] Scheduled 1, [place] [address] [place] [address] 08/05/2022 Office Visit ORTHOPEDICS Roosevelt Brown MD [address] [place] [address] Scheduled 1, [place] [address] [place] [address] 08/20/2022 Office Visit Interventional Radiology Provider, Int Ra d Scheduled 1, [place] [address] [place] [address] 08/21/2022 Office Visit MEDICINE Naomie Bal MBBS [address] [place] [address] Scheduled 1, [place] [address] [place] [address] Scheduled Orders Name Type Priority Associated Diagnoses Order S chedule XR PELVIS 3 V AP + Imaging Routine Pelvic ring fracture, Expected: 07/22/2022 INLET/OUTLET closed, initial encounter (A pproximate), () Expires: 2022 documented as of this encounter Visit Diagnoses Diagnosis Pelvic ring fracture, closed, initial en counter () - Primary documented in this encounter Care Teams [place]er Relationship Specialty Start Date End Date Lore Au, PT Physical Therapist Physical Therapy 07/09/22 [address] [place] [address] documented as of this encounter
[2022-07-23 20:34] LABS: Hemoglobin* 12.3 gm/dL (13.5-17.5); Red Blood Count 4.14 m/uL (4.30-5.90); White Blood Count* 8.85 K/uL (4.50-11.00)
--- OUTSIDE RECORDS SUMMARY | 2022-07-23 20:34 | XMS_ITS | Encounter Summary ---
:1975 Author Organization [facility] Address [address] [place] [phone] Phone Care Team Providers Name Role Phone Unavailable Primary Care Provider Unavailable Reason for Referral Consult/Test/Treat (Routine) - Closed Specialty Diagnoses / Procedures Referred By Contact Refer red To Contact Diagnoses Pelvic ring fracture, closed, initial encounter () Patrice Hollins MD [address] [place] [address] [id number] Referral ID Status Reason Start Date Expiration Date Visits Requ ested Visits Authorized [id number] Closed 06/27/2022 06/28/2023 1 1 Consult/Test/Treat (Routine) - New Request Specialty Diagnoses / Procedures Referred By Contact Refer red To Contact Internal Medicine / Diagnoses Hyponatremia Type 2 diabetes mellitus without complication, without long-term current use of insulin () Patrice Hollins MD MEDICINE [address] [place] [address] Referral ID Status Reason Start Date Expiration Date Visits V isits Requested Authorized [id number] New Request 06/26/2022 06/26/2023 1 1 Consult/Test/Treat (Routine) - New Request Specialty Diagnoses / Procedures Referred By Contact Refer red To Contact Physical Therapy / Diagnoses Fall, initial encounter Pelvic ring fracture, closed, initial encounter () Status post open reduction and internal fixation (ORIF) of fracture Patrice Hollins MD PHYSICAL THERAPY [address] [facility] [address] [place] [address] Referral ID Status Reason Start Date Expiration Date Visits V isits Requested Authorized [id number] New Request 06/26/2022 06/26/2023 1 1 Reason for Visit Reason Comments Fall Auth/Cert (Routine) Specialty Diagnoses / Procedures Referred By Contact Refer red To Contact SURGERY Diagnoses Fall, initial encounter Erasmo Gonzalez MD [address] [facility] [address] [place] [address] [phone] [address] [place] [address] Phone: Fax: Referral ID Status Reason Start Date Expiration Date Visits Requ ested Visits Authorized [id number] 1 1 Encounter Details Date Type Department Care Team Description 06/15/2022 - Hospital Encounter [facility] Kingston Castañeda MD [address] [facility] [address] [place], [place] [address] Fall, initial 06/27/2022 Surgery/Trauma/Neur Patrice Hollins MD [address] 107075 encounter o [address] [place] [address] [address] [place] [address] Social History Tobacco Use Types [...] TRAUMA DISCHARGE SUMMARY - PGY 1 Kesha GlassEllen : 1975 Sex: male Date of Admission: [...] No focal deficits appreciated on gross examination Satellite Installation Technician Needed: yes- Pakistani [35] PLANNED DISCHARGE ORDERS: Suture/Marion: Location right low back; Removal date: @ [...] address): ___ Patient Address: C/o Shawnee Bolivar [address] [place] [address] Question Response Notes Effective date for equipment/supply 06/25/2022 Medical necessity for order (qualifying diagnosis) sacral fracture, right acetabular fracture, T12 compression fracture, right distal radius fracture Length of time equipment/supply needed 12 months Monthly quantity . Vendor Information [employer]; ph: [phone], fx: [phone] XR SPINE THORACOLUMBAR 2 VIEW Question Response [...] Yes Antitippers Yes Vendor Information [employer]; ph: [phone], fx: [phone] DME JUSTIFICATION OF NEED FOR EXTENDED TUB [...] PLEASE CALL the Patient Access Center at [phone] to schedule the following appointment(s) Question Response Notes Specify time frame 1 Month Reason for Visit? Evaluate need for continued IVC Filtration Provider Type? Any available Provider Clinic Location? [facility] Specialty: Interventional Radiology Schedule Appointment - [facility] Ortho Cl Order Notes PLEASE CALL the Patient Access Center at [phone] to schedule the following appointment(s) Question Response Notes Specify time frame 2 Weeks Reason for Visit? Post op follow up, hospitalization. S/p ORIF right SI joint Provider Type? Any available Provider Clinic [place] [facility] [place]: Orthopedics Schedule Appointment in Neurosurgery- [facility] Order Notes Schedule Appointment in Neurosurgery Clinic - [facility] Neurosurgery Clinic Direct Line: [phone] [place] [address] Clinic Hours: 8 AM - 4:30 PM M-F Question Response Notes Specify time frame 6 Weeks Reason for Visit? Follow up T12 and lumbar fractures Provider Type? [facility] Clinic Location? [facility] Specialty: Neurosurgery Imaging? Yes UR XR prior [...] your doctor or [facility]. When should I be concerned? Order Notes [...] 4 PM): Call the Radiology department at [phone] After hours or on Holidays: Call the [facility] spray gun operator . Ask the spray gun operator to page the Interventional Radiologist travel occupational therapist. IF: -- hives or new itching the [...] you can dry it with a hair cutter set to cool/warm; call the Orthopaedic Clinic at [phone] if the cast remains soft. -- Cover [...] you can dry it with a hair cutter set to cool/warm; call the Orthopaedic Clinic at [phone] if the cast remains soft. -- Cover [...] -- Read all labels for prescription and Mbsr-evd-kiqvsfy medicines. Ask the pharmacist if your prescription [...] taking these medications acetaminophen 325 mg tablet Maben 3 tabletas (975 mg) por la boca [...] (5 mg) by mouth 3 times daily. Maben 1 tableta (5 mg) por la boca [...] (400 mg) by mouth 3 times daily. Maben 1 capsula (400 mg) por la boca 3 veces al porsche. hydrOXYzine pamoate 25 mg capsule Commonly known as: VISTARIL Take 1-2 capsules (25-50 mg) by mouth every 4 hours as needed (pain adjunct (give with opioid)).Maben 1-2 c??psulas (25-50 mg) por v??a oral cada 4 horas seg??n sea necesario (complemento para el dolor (administrar con opioide)). melatonin 3 mg tablet Take 1 tablet (3 mg) by mouth at bedtime as needed for Sleep. Maben 1 tableta (3 mg) por la boca a lahora de acostrase. oxyCODONE 5 mg tablet Commonly known as: ROXICODONE Maben 1 tableta (5 mg) por la boca cada 4 horas rock sea necesario para el dolor. (Take 1 tablet (5 mg) by mouth every 4 hours as needed for Pain.) polyethylene glycol 3350 17 gm/scoop powder Commonly known as: MIRALAX/GLUCOLAX Take 17 g by mouth twice daily.Take 1 capful to 17 gm cuate mixed with full glass of water twice every day as directed.Maben 17 g por v??a oral dos veces al d??a. Maben 1 tap??n hasta la minerva de 17 g mezclado con un vaso lleno de agua dos veces al d??a seg??n las indicaciones. * Xarelto 15 mg tablet Generic drug: rivaroxaban Take 1 tablet (15 mg) by mouth twice daily with meals for 21 days. Indications: Blood Clot in a DeepVein. Maben 1 tableta (15 mg) por v??a oral dos veces al d??a con las comidas jennifer 21 d??as. 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 Start taking on: June 29, 2022 * rivaroxaban 20 mg tablet Commonly known as: XARELTO Take 1 tablet (20 mg) by mouth daily with evening meal. Indications: Blood Clot in a Deep Vein.(Maben 1 tableta (20 mg) por v??a oral diariamente con la acoustic sensor operator. 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 Maben 1 tableta por la boca 2 veces al porsche. sodium chloride 1 gm Tabs Take 2 tablets (2 g) by mouth 4 times daily. TOME DOS TABLETAS ORALMENTE 4 VECES AL PORSCHE tamsulosin 0.4 mg Capsule Commonly known as: FLOMAX Take 1 capsule (0.4 mg) by mouth daily after meal.Take 30 minutes after same meal each day. Do NOT crush or chew.Maben 1 c??psula (0,4 mg) por v??a oral todos los d??as despu??s de ethan comida. Maben 30 minutos despu??s de la misma comida [...] Your Medications These medications were sent to [facility] Discharge Pharmacy - [place] [address] Hours: 27/04 acetaminophen 325 mg tablet bisacodyl [...] me are documented. Patrice Hollins M.D., F.A.C.S. [facility] Department of Surgery documented in this encounter [...] Self Cares with a TLSO A TLSO (Vczaemw-Qactl-Baataq-Orthosis) is a brace designed to immobilize your [...] determine what you need) Extended tub bench Farm Helper Long Handled Sponge Raised Toilet Seat with arms Remember : - No weight on your right arm/hand, no pulling and no pushing with right hand. - No weight on right leg - Pivot transfer ONLY on left leg - No walking - Slow down, think before moving Discharge Instr - Speech Language PathologyTheodora Serrano OTR/L - 06/27/2022 8:50 AM CDT {ACID DUMPER Discharge Instructions:106956} AttachmentsThe following attachments cannot be sent through Care Everywhere.Cast Care (Pakistani)Forearm and Wrist Fractures ED (Pakistani)Forearm Fracture Discharge Instructions (Pakistani)Radius Fracture (Pakistani)Radius Fracture Discharge Instructions (Pakistani)Pelvic Fracture Discharge Instructions (Pakistani) Pelvic Fracture (Pakistani)Fractures (Pakistani)General Trauma Discharge Instructions (Pakistani)Type 2 Diabetes Discharge Instructions (Pakistani)documented in this encounter Medications at Time of Discharge Medication Sig Dispensed Refills Start Date End Date acetaminophen 325 mg Take 3 tablets (975 120 tablet 0 2021 oral tablet mg) by mouth 3 times daily. hydrOXYzine pamoate Take 1-2 capsules 120 capsule 0 06/26/20 (VISTARIL) 25 mg oral (25-50 mg) by mouth capsule every 4 hours as needed (pain adjunct (give with opioid)).Maben 1-2 c??psulas (25-50 mg) por v??a oral [...] oral by mouth 3 times TABS daily. Maben 1 tableta (5 mg) por la boca 3 veces al porsche. polyethylene glycol Take 17 g by mouth 510 g 0 06/26/20 3350 twice daily.Take 1 (MIRALAX/GLUCOLAX) 17 capful to 17 gm gm/scoop oral powder cuate mixed with full glass of water twice every day as directed.Maben 17 g por v??a oral dos veces al d??a. Maben 1 tap??n hasta la minerva de 17 g mezclado con un vaso lleno de agua dos veces al d??a seg??n las indicaciones. sennosides-docusate Take 1 tablet by 40 each 0 06/26/2022 sodium (STOOL mouth twice daily. SOFTENER/LAXATIVE) Maben 1 tableta por 8.6-50 mg oral tablet la boca 2 veces al porsche. GABApentin (NEURONTIN) Take 1 capsule (400 120 capsule 0 400 mg oral capsule mg) by mouth 3 times daily. Maben 1 capsula (400 mg) por la boca 3 veces al porsche. tamsulosin (FLOMAX) Take 1 capsule (0.4 10 capsule 0 022 0.4 mg oral capsule mg) by mouth daily after meal.Take 30 minutes after same meal each day. Do NOT crush or chew.Maben 1 c??psula (0,4 mg) por v??a oral todos los d??as despu??s de ethan comida. Maben 30 minutos despu??s de la misma comida todos los d??as. No triture ni mastique. melatonin 3 mg oral Take 1 tablet (3 mg) 20 tablet 0 2021 tablet by mouth at bedtime as needed for Sleep. Maben 1 tableta (3 mg) por la boca [...] Thrombosis Indications: Blood Clot in a Deep Vein.(Maben 1 tableta (20 mg) por v??a oral [...] Indications: Blood Clot in a Deep Vein. Maben 1 tableta (15 mg) por v??a oral dos veces al d??a con las comidas jennifer 21 d??as. 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 documented as of this encounter Progress Notes [...] they call back with questions. Theodora Serrano OTR/L - 06/27/2022 10:04 AM [...] w/ Precautions?: Yes (with some occasional reminders) Satellite Installation Technician Used: No, certified bilingual staff SUBJECTIVE: Cooperative [...] assisting with supervision and 1-2 tips from development writer Upper Body Dressing Techniques & Equipment: [...] Functional activity: 15 minutes CLAUDIO Cordero Pager: [facility] OT Department Neal Phillips, DRY BOX OPERATOR - 06/27/2022 9:42 AM CDT Problem: Decreased Transfer Skills Goal: Patient will transfer supine to/from sit Description: Patient will transfer supine to/from sit with (6) Modified [place] in the TLSO w/othe use of his [...] (Numeric): 4 (improved) Participation Significantly Limited?: No O:Satellite Installation Technician Used: Yes, [facility] geodetic survey director Mental Status Mental Status: Alert;Cooperative;Follows 3 step [...] own equipment. Neal Phillips PTA 06/27/2022 Pager: [facility] PT Dept Joce Villareal MD - 06/27/2022 [...] Right Arm Pulse: 71 [phone] Resp: 18 17 Temp: 36.3 ??C (97.4 ??F) 36.4 ??C [...] - ok for L LE pivot transfer) Satellite Installation Technician Used: No, certified bilingual staff SUBJECTIVE: Cooperative [...] assisting with supervision and 1-2 tips from development writer Lower Body Dressing: Maximal assist (25% [...] mgmt/ADL: 23 minutes Functional Activity 15 minutes CLAUDIO Cordero Pager: [facility] OT Department Patrice Hollins MD - 06/26/2022 [...] vital signs normal. Euvolemic on exam. Asymptomatic. [id number] LR post procedurally 06/24. Has not received [...] Hollins MD, 06/30/2022 9:13 AM Neal Phillips, DRY BOX OPERATOR - 06/26/2022 9:03 AM CDT Problem: Decreased Transfer Skills Goal: Patient will transfer supine to/from sit Description: Patient will transfer supine to/from sit with (6) Modified [place] in the TLSO w/othe use of his [...] (Numeric): 4 (improved) Participation Significantly Limited?: No O:Satellite Installation Technician Used: Yes, [facility] geodetic survey director Mental Status Mental Status: Alert;Cooperative;Follows 3 step [...] set-up and management. Increase tolerance for sitting. DRY BOX OPERATOR Appropriate: Yes Neal Phillips, SKYLER 06/26/2022 Pager: [facility] PT Dept Chintan Valadez MD - 06/26/2022 [...] recommended * (when cleared to ambulate) (06/25/22 1357) Equipment Status: Team notified of equipment recommendation (06/25/22 0904) PT Equipment Recommended: Manual wheelchair (06/25/22 9240) S: I have a little more pain today compared to yesterday, but I can still get up. Pain Pain Rating With Activity (Numeric): 7 (low back on R side when sitting up in the wheelchair) Participation Significantly Limited?: No Intervention: Other (assisted with transferring pt back to bed) O:Satellite Installation Technician Used: Yes, [facility] geodetic survey director Mental Status Mental Status: Alert;Cooperative;Follows 3 step [...] by PT. She also assisted pt with mmrprq-ix-kpu transfer. Pt required just standby assist for [...] with assisting with wheelchair set-up and management. DRY BOX OPERATOR Appropriate: Yes Alize Stevens, PT 06/25/2022 Pager: [facility] PT Dept Problem: Decreased Transfer Skills Goal: Patient will transfer supine to/from sit Description: Patient will transfer supine to/from sit with (6) Modified [place] in the TLSO w/othe use of his [...] be able to roll with (6) Modified [place] using log roll technique w/o the use [...] - ok for L LE pivot transfer) Satellite Installation Technician Used: No, certified bilingual staff SUBJECTIVE: Cooperative [...] assisting with supervision and 1-2 tips from development writer Lower Body Dressing: Maximal assist (25% [...] NOTE - PGY 1 Blue Surgery Kesha CoombsdeannaSusanmoe : 1975 [...] 06/24/2022542 WBC 10.55 (H) 06/22/2022524 WBC 7.23 06/20/202257 HGB 12.0 (L) 06/24/2022542 HGB 10.1 (L) 06/22/202225 HGB 9.0 (L) 06/20/202257 PLT 527 (H) 06/24/2022542 PLT 378 06/22/2022 0525 PLT 266 06/20/2022 0557 CR 0.62 (L) 06/24/2022 0543 CR 0.63 (L) 06/20/2022 0557 CR 0.61 (L) 06/19/2022 0515 Alpesh Live MD Orthopaedic Surgery, PGY-3 Faculty Note: I discussed with the resident and agree with the resident's findings and plan as documented in the resident's note. Modifications done above as necessary. Lovenox confirmed. Filed Vitals: 06/24/22201706/24/22 2347 06/25/22 0406 06/25/22 0709 BP: 120/72 [...] 10.31 (H) 06/15/2022 192 LYMPHAB 2.74 06/15/2022 1920 MONOABSNO 0.67 06/15/2022 [...] about 30 minutes prior to arrival) O: Satellite Installation Technician Used: No, certified bilingual staff Name or Reference Number (phone): [id number] Mental Status Mental Status: Alert;Cooperative;Follows 1 step [...] OR and requesting PT assist pt to cart Clinical Coordinator: Notified recommending 16 WC with [...] have family re-demo WC part management . DRY BOX OPERATOR Appropriate: Yes Charlene Lindo, PT 06/24/2022 Pager: [facility] Dept Problem: Decreased Transfer Skills Goal: Patient will roll Description: Patient will be able to roll with (6) Modified [place] using log roll technique w/o the use of his RUE while maintaining both spinal and WB restrictions in order to demonstrate improved function and D/C by 06/28. Outcome: In progress Goal: Patient will transfer supine to/from sit Description: Patient will transfer supine to/from sit with (6) Modified [place] in the TLSO w/othe use of his [...] - ok for L LE pivot transfer) Satellite Installation Technician Used: No, certified bilingual staff SUBJECTIVE: Cooperative [...] assisting with supervision and 1-2 tips from development writer Upper Body Dressing Techniques & Equipment: [...] is only present while pushing against something. [place] nauseous upon waking, dry heaved. Able to [...] me are documented. Patrice Hollins M.D., F.A.C.S. [facility] Department of Surgery Korin Garcia MD - [...] for OR today. Hopefully this afternoon or plastic printer - Plan to convert right short arm [...] 06/23/2022 12:50 PM CDT Problem: Loss of [place] With ADLs, Risk for Goal: Patient-specific goals [...] push/pull/place weight in RUE- ok through elbow) Satellite Installation Technician Used: Yes, agency or phone geodetic survey director ([facility] phone/video geodetic survey director) SUBJECTIVE: I'm getting really warm. Can I [...] assisting with supervision and 1-2 tips from development writer Upper Body Dressing Techniques & Equipment: [...] surgery, pt may require post-acute placement vs 27/04 assistance from family after training. Recommend PM&R [...] care/Home mgmt/ADL: 30 minutes JACKELIN Fernandez/Kira Pager: [facility] OT Department Resham Hackett OTR/Kira, 06/23/2022 4:09 PM Patrice Hollins [...] revisions by me aredocumented. Patrice Hollins M.D., YolandeS. [facility] Department of Surgery Linda Lei MD - [...] with any questions or concerns. Aman Pichardo MAINTENANCE CRAFTSMAN Danette O&P [phone] Linda Au MD - 06/20/2022 5:36 AM [...] Per nursing report, patient was bladder scanned [id number] retained, so he underwent straight catheterization. He [...] (L) 06/19/2022 0515 HGB 9.6 (L) 06/18/2022 045 HGB 9.8 (L) 06/17/2022 0507 PLT 227 [...] WBC 14.21 (H) 06/15/20221919 HGB 9.6 (L) 06/18/2022 045 HGB 9.8 (L) 06/17/2022 0507 HGB 13.0 [...] IN NOTE D: Patient transferred in to [facility] from PACU at 1950. Patient condition on arrival: stable. Patient Belonging 06/16/2022 0110 Patient or family informed of Patient Valuables and Belongings Policy (#[id number]): Due to patient condition, [facility] staff will inventory and secure patient valuables [...] SURGERY PROGRESS NOTE - MS3/PGY 1 Kesha CoombsTanya : 1975 Sex: male ASSESSMENT/PLAN: [...] me are documented. Patrice Hollins M.D., Dyllan. [facility] Department of Surgery Alpesh Live MD - [...] 13.0 (L) 06/15/2022 192 HGB 13.7 06/15/2022 1920 PLT 191 06/18/2022 [...] None Transportation Used for Discharge: family will flower picker Safety Concerns: None Behavioral Health Concerns: None Primary Insurance: N/A Secondary Insurance: N/A PLAN Plan/Interventions Discharge Plan: Home Risks for Readmission: None SUMMARY Patient would like to DC home where could help. He is uninsured. He has received 3 doses of Covid vaccine senior tax manager will continue to follow until DC [...] of venous lower extremity bilaterally: pending SharonAlize, , 06/17/2022 10:49 AM I Linda Au [...] by me aredocumented. Patrice Hollins M.D., F.A.C.S. [facility] Department of Surgery Resident: Linda Au MD, [...] require OR during this hospital admission S: NAEEM AF, VSS, RA. Resting comfortably this am. O: [...] (L) 06/15/20221919 HGB 13.7 06/15/2022 1920 PLT 181 06/17/2022 0507 PLT 294 06/15/20220 CR 0.82 06/17/2022 0507 CR 1.00 06/15/2022 [...] return to fit when able. Aman Thurow MAINTENANCE CRAFTSMAN Juanklgeorgette O&P [phone] Narciso Steele CO - 06/16/2022 12:08 PM [...] today for fitting and delivery. Aman Thurow MAINTENANCE CRAFTSMAN Winkley O&P [phone] Edna Ibrahim MDIV - 06/16/2022 9:36 AM CDT SPIRITUAL CARE VISIT SUMMARY Kesha Hill : 1975 Sex: male LOS: 0 days Reason for visit: Referral Assessment: Pt/family uncertain/anxious/frustrated Intervention: Engage theological concerns;Compassionate support;Facilitate communication;Lead/support spiritual rituals Outcome: Situation assessed;Gratitude expressed;Pt/family report increased sense of peace/spiritual well-being;Stress observed as lessened;Ritual provided Notes: Provided supportive presence for Pakistani speaking, Sudanese pt (with use of food technologist). Pt was in pain, and consented to healing touch being provided. He indicated that this practice assisted with his pain. Pt spoke about his recent move to [place], and how he likes it there, and likes living with his Gloria there. Pt was able to speak with the nurse about his pain, and communicate that to her. He welcomed prayer, which this provider offered in Pakistani. Edna has completed levels one and two of Healing Touch and level one of Reiki. This is an energy based, gentle (limited) touch healing modality, and this patient or patient's family consented to this practice. Plan: Spiritual Care Team is available to support patient and family as needed via pager [phone]. Edna Ibrahim MDIV, 06/16/2022 9:36 AM Pager: [phone] Oanh Moore MD - 06/16/2022 6:02 AM [...] elbow flex/ext. 5/5 wrist flex/ext. 5/5 hand dice person. LUE: 5/5 shoulder abduction. 5/5 elbow flex/ext. 5/5 wrist flex/ext. 5/5 hand dice person. Lower Extremities: RLE: 0/5 hip flexion. [...] Narvaez MD - 06/16/2022 12:[place] [address] [facility]#: [id number] PATIENT: KESHA HILL : 1975 DATE DICTATED: 06/16/2022 SURGERY STAFF DAILY PROGRESS NOTE DATE OF SERVICE: 06/16/2022 I saw and evaluated the patient. I discussed management with residents, ORACLE REPORTS DEVELOPER, and PAs on the Neurosurgery team and [...] MD Staff Physician Neurosurgery Service Received in Hotel Controller: 06/16/2022 18:59:09 M: /[id number] TB/MODL Patrice Hollins MD - 06/15/2022 7:18 PM CDT Trauma Staff I was notified via the trauma pager at: [phone] I evaluated/examined this patient at: aRRIVAL The patient arrived at: 06/15/2022 7:15 PM I was pre-notified: Yes Switchboard. Trauma Level: Tier 2 Staff Summary (full note will be with the resident H&P): Fell from [facility], 30 ft. Will plan head/c-spine/chest/abd/pelvis CT scan. [...] file Social History Narrative Patient lives in [place], [place]. He is single and employed. Family [...] NPO until final reads on radiography Consult ACID DUMPER and keep strict NPO if ACID DUMPER consult not indicated at this time PT/OT [...] me are documented. Patrice Hollins M.D., F.A.C.S. [facility] Department of Surgery documented in this encounter [...] Hill at 1215 Patient transported back to [facility] via Bed. Accompanied by Tech and [...] John Leon MD Orthopaedic Surgery, PGY3 Pager: [phone] documented in this encounter Consult Notes Sultana Nuñez, FernandoD - 06/26/2022 4:10 PM CDTAssociated Order(s): DISCHARGE MED REC FINAL REVIEW BY PHARMACY PHARMACY DISCHARGE NOTE Kesha Hill : 1975 Sex: male Pharmacy service was consulted for review of patient's discharge medications. Planned discharge medications are: Medication List Medications Indications acetaminophen 325 mg tablet Maben 3 tabletas (975 mg) por la boca [...] (5 mg) by mouth 3 times daily. Maben 1 tableta (5 mg) por la boca [...] (400 mg) by mouth 3 times daily. Maben 1 capsula (400 mg) por la boca 3 veces al porsche. glipiZIDE XL 10 mg extended release tablet Generic drug: glipiZIDE XL Take 1 tablet (10 mg) by mouth daily. Indications: Type 2 Diabetes Indications: Type 2 Diabetes hydrOXYzine pamoate 25 mg capsule Commonly known as: VISTARIL Take 1-2 capsules (25-50 mg) by mouth every 4 hours as needed (pain adjunct (give with opioid)).Maben 1-2 c??psulas (25-50 mg) por v??a oral cada 4 horas seg??n sea necesario (complemento para el dolor (administrar con opioide)). melatonin 3 mg tablet Take 1 tablet (3 mg) by mouth at bedtime as needed for Sleep. Maben 1 tableta (3 mg) por la boca a lahora de acostrase. metFORMIN 1000 mg tablet Commonly known as: GLUCOPHAGE Take 1 tablet (1,000 mg) by mouth twice daily with meals. Indications: Type 2 Diabetes Indications: Type 2 Diabetes oxyCODONE 5 mg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 [address] (ABNORMAL) PANEL LIPID (06/26/2022 6:41 AM CDT) athologist Signature Cholesterol 128 <=200 mg/dL [facility] Comment: Interpretive Data <200 Desirable 200-239 Borderline high >=240 High Triglyceride 178 (H) <=150 mg/dL [facility] Comment: Interpretive Data <150 Normal 150-199 Borderline high 200-499 High >=500 Very high HDL 31 (L) >=40 mg/dL [facility] Comment: Interpretive Data Normal > 40 Male > 50 Female Calc LDL 61 <=100 mg/dL [facility] Comment: Interpretive Data <100 Desirable 100-129 Above desirable 130-159 Borderline high 160-189 High >=190 Very high Non-HDL Cholesterol Calculated 97 <=130 mg/dL [facility] Comment: Interpretive Data <130 Desirable 130-159 Above desirable 160-189 Borderline high 190-219 High >=220 Very high Specimen Anatomical Collection Method Collection Time Receive d Time (Source) Location / / Volume Laterality Blood 06/26/2022 6:41 AM 2 CDT 12:54 PM CDT Narrative [facility] - 06/26/2022 1:12 PM CDT Fasting: No Patrice Hollins MD LABORATORY Performing Organization Address City/[facility]/ZIP Code Phon e Number [facility] [place] [address] (ABNORMAL) PANEL RENAL (06/26/2022 6:41 AM CDT) P athologist Signature Sodium 131 (L) 135 - 148 [facility] mEq/L Potassium 4.1 3.5 - 5.3 [facility] mEq/L Chloride 93 92 - 108 [facility] mEq/L CO2 27 22 - 30 [facility] mEq/L AnGap 11 8 - 16 [facility] mEq/L Glucose 151 (H) 70 - 100 [facility] mg/dL BUN 15 6 - 20 [facility] mg/dL Creatinine 0.69 (L) 0.70 - 1.25 [facility] mg/dL Calcium 8.9 8.6 - 10.0 [facility] mg/dL Albumin 3.5 (L) 3.8 - 5.1 [facility] g/dL Phosphorus 4.3 2.5 - 4.5 [facility] mg/dL eGFR, High >120 >=60 [facility] ml/min/1.73 m2 Comment: Calculated using CKD-EPI equati on eGFR, Low 115 >=60 ml/min/1.73m2 [facility] Comment: Calculated using CKD-EPI equati on Specimen Anatomical Collection Method Collection Time Receive d Time (Source) Location / / Volume Laterality Blood 06/26/2022 6:41 AM 2 7:47 CDT AM CDT Patrice Hollins MD LABORATORY Performing Organization Address City/[facility]/ZIP Code Phon e Number [facility] [place] [address] (ABNORMAL) CBC WITH PLATELET (06/26/2022 6:41 AM CDT) P athologist Signature WBC 12.28 (H) 4.00 [facility] k/cmm RBC 3.46 (L) 4.60 - 6.00 [facility] m/cmm Hgb 9.7 (L) 13.1 - 17.5 [facility] g/dL Hematocrit 29.3 (L) 40.0 - 51.0 [facility] % MCV 84.7 80.0 - [facility] 100.0 fL MCH 28.0 25.0 - 32.0 [facility] pg MCHC 33.1 31.0 - 36.0 [facility] g/dL RDW 13.3 11.5 - 14.5 [facility] % Plt 516 (H) 150 - 400 [facility] k/cmm MPV 10.9 6.5 - 12.5 [facility] fL Specimen Anatomical Collection Method Collection Time Receive d Time (Source) Location / / Volume Laterality Blood 06/26/2022 6:41 AM 7:47 CDT AM CDT Patrice Hollins MD LABORATORY Performing Organization Address City/[facility] Phon e Number [facility] [place] [address] (ABNORMAL) POC GLUCOSE (06/25/2022 8:45 PM CDT) athologist Signature POC Glucose 159 (H) 70 - 100 [facility] mg/dL CAMPUS - POINT OF CARE Specimen (Source) Anatomical Collection Method Collection Time Re ceived Time Location / / Volume Laterality Blood 06/25/2022 8:45 PM CDT Kingston Castañeda MD LABORATORY Performing Organization Address City/[facility]/ZIP Code Phon e Number [facility] - POINT OF CARE [address] [place] [phone] OSMOLALITY,URINE-RANDOM ASIA (06/25/2022 5:08 PM CDT) athologist Signature Urine Osmo 528 50 - 800 [facility] mOsm/Kg Specimen Anatomical Collection Method Collection Time Receive d Time (Source) Location / / Volume Laterality Urine 06/25/2022 5:08 PM 5:39 CDT PM CDT Patrice Hollins MD LABORATORY Performing Organization Address City/State/ZIP Code Phon e Number [facility] [place] [address] (ABNORMAL) SODIUM,URINE-RANDOM ASIA (06/25/2022 5:08 PM CDT) athologist Signature Sodium Urine 30 (L) 40 - 200 [facility] mEq/L Specimen Anatomical Collection Method Collection Time Receive d Time (Source) Location / / Volume Laterality Urine 06/25/2022 5:08 PM 5:39 CDT PM CDT Patrice Hollins MD LABORATORY Performing Organization Address City/[facility] Phon e Number [facility] [place] [address] (ABNORMAL) POC GLUCOSE (06/25/2022 4:09 PM CDT) athologist Signature POC Glucose 150 (H) 70 - 100 [facility] mg/dL CAMPUS - POINT OF CARE Specimen (Source) Anatomical Collection Method Collection Time Re ceived Time Location / / Volume Laterality Blood 06/25/2022 4:09 PM CDT Kingston Castañeda MD LABORATORY Performing Organization Address City/[facility] Phon e Number [facility] - POINT OF CARE [address] [place] [id number] PELVIS NO IV CON+ 3D RECON [...] POC Glucose 188 (H) 70 - 100 [facility] mg/dL CAMPUS - POINT OF CARE Specimen (Source) Anatomical Collection Method Collection Time Re ceived Time Location / / Volume Laterality Blood 06/25/2022 11:26 AM CDT Kingston Castañeda MD LABORATORY Performing Organization Address City/[facility] Code Phon e Number [facility] - POINT OF CARE [address] [place] [address] (ABNORMAL) POC GLUCOSE (06/25/2022 5:59 AM CDT) athologist Signature POC Glucose 126 (H) 70 - 100 [facility] mg/dL CAMPUS - POINT OF CARE Specimen (Source) Anatomical Collection Method Collection Time Re ceived Time Location / / Volume Laterality Blood 06/25/2022 5:59 AM CDT Kingston Castañeda MD LABORATORY Performing Organization Address [facility]/ZIP Code Phon e Number [facility] - POINT OF CARE [address] [place] [address] OSMOLALITY SERUM (06/25/2022 5:51 AM CDT) athologist Signature Serum Osmo [phone] [facility] mOsm/Kg Specimen Anatomical Collection Method Collection Time Receive d Time (Source) Location / / Volume Laterality Blood 06/25/2022 5:51 AM 2 4:44 CDT PM CDT Patrice Hollins MD LABORATORY Performing Organization Address City/State/ZIP Code Phon e Number [facility] [place] [address] (ABNORMAL) PANEL RENAL (06/25/2022 5:51 AM CDT) athologist Signature CO2 28 22 - 30 [facility] mEq/L Glucose 144 (H) 70 - 100 [facility] mg/dL BUN 19 6 - 20 [facility] mg/dL Creatinine 0.78 0.70 - 1.25 [facility] mg/dL Calcium 9.1 8.6 - 10.0 [facility] mg/dL Albumin 3.4 (L) 3.8 - 5.1 [facility] g/dL Phosphorus 4.1 2.5 - 4.5 [facility] mg/dL eGFR, High >120 >=60 [facility] ml/min/1.73 m2 Comment: Calculated using CKD-EPI equati on Sodium 131 (L) 135 - 148 mEq/L [facility] Potassium 4.5 3.5 - 5.3 mEq/L [facility] Chloride 94 92 - 108 mEq/L [facility] eGFR, Low 109 >=60 ml/min/1.73m2 [facility] Comment: Calculated using CKD-EPI equati on AnGap 9 8 - 16 mEq/L [facility] Specimen Anatomical Collection Method Collection Time Receive d Time (Source) Location / / Volume Laterality Blood 06/25/2022 5:51 AM 2 6:23 CDT AM CDT Patrice Hollins MD LABORATORY Performing Organization Address City/State/ZIP Code Phon e Number [facility] [place] [address] (ABNORMAL) CBC WITH PLATELET (06/25/2022 5:51 AM CDT) athologist Signature WBC 12.52 (H) 4.00 - [facility] 10.00 k/cmm RBC 3.62 (L) 4.60 - 6.00 [facility] m/cmm Hgb 10.2 (L) 13.1 - 17.5 [facility] g/dL Hematocrit 30.6 (L) 40.0 - 51.0 [facility] % MCV 84.5 80.0 - [facility] 100.0 fL MCH 28.2 25.0 - 32.0 [facility] pg MCHC 33.3 31.0 - 36.0 [facility] g/dL RDW 13.3 11.5 - 14.5 [facility] % Plt 522 (H) 150 - 400 [facility] k/cmm MPV 9.7 6.5 - 12.5 [facility] fL Specimen Anatomical Collection Method Collection Time Receive d Time (Source) Location / / Volume Laterality Blood 06/25/2022 5:51 AM 6:23 CDT AM CDT Patrice Hollins MD LABORATORY Performing Organization Address City/[facility] Phon e Number [facility] [place] [address] (ABNORMAL) POC GLUCOSE (06/24/2022 9:13 PM CDT) athologist Signature POC Glucose 211 (H) 70 - 100 [facility] mg/dL CAMPUS - POINT OF CARE Specimen (Source) Anatomical Collection Method Collection Time Re ceived Time Location / / Volume Laterality Blood 06/24/2022 9:13 PM CDT Kingston Castañeda MD LABORATORY Performing Organization Address City/[facility] Code Phon e Number [facility] - POINT OF CARE [address] [place] [phone] (ABNORMAL) POC GLUCOSE (06/24/2022 6:41 PM CDT) athologist Signature POC Glucose 248 (H) 70 - 100 [facility] mg/dL CAMPUS - POINT OF CARE Specimen (Source) Anatomical Collection Method Collection Time Re ceived Time Location / / Volume Laterality Blood 06/24/2022 6:41 PM CDT Kingston Castañeda MD LABORATORY Performing Organization Address City/[facility]/ZIP Code Phon e Number [facility] - POINT OF CARE [address] [place] [phone] (ABNORMAL) POC GLUCOSE (06/24/2022 4:39 PM CDT) P athologist Signature POC Glucose 214 (H) 70 - 100 [facility] mg/dL [place] - POINT OF CARE Specimen (Source) Anatomical Collection Method Collection Time Re ceived Time Location / / Volume Laterality Blood 06/24/2022 4:39 PM CDT Kingston Castañeda MD LABORATORY Performing Organization Address City/State/ZIP Code Phon e Number [facility] - POINT OF CARE [address] [place] [address] XR C ARM OVER 3 HRS (06/24/2022 [...] Stable alignment since prior exam. Reading Radiologist: Yovany Delgado Narrative 06/24/2022 2:02 PM CDT Indication: intraoperative flat plates in OR1, will call XR when ready ?? Comparison: 06/19/2022 Findings: A screw projects through both sacroiliac joints from right to left. Healing posterior right acetabular chip fracture. Healing fractures of the right superior and inferior pubic rami. Procedure Note Yovany Delgado MD - 06/24/2022Format ting of this [...] Stable alignment since prior exam. Reading Radiologist: Yovany Delgado iMri Matthew MD X-RAY (ABNORMAL) POC GLUCOSE (06/24/2022 1:10 PM CDT) P athologist Signature POC Glucose 141 (H) 70 - 100 [facility] mg/dL CAMPUS - POINT OF CARE Specimen (Source) Anatomical Collection Method Collection Time Re ceived Time Location / / Volume Laterality Blood 06/24/2022 1:10 PM CDT Kingston Castañeda MD LABORATORY Performing Organization Address City/State/ZIP Code Phon e Number [facility]AMP[facility] - POINT OF CARE [address] [place] [address] (ABNORMAL) POC GLUCOSE (06/24/2022 10:53 AM CDT) athologist [facility] POC Glucose 146 (H) 70 - 100 [facility] mg/dL CAMPUS - POINT OF CARE Specimen (Source) Anatomical Collection Method Collection Time Re ceived Time Location / / Volume Laterality Blood 06/24/2022 10:53 AM CDT Kingston Castañeda MD LABORATORY Performing Organization Address City/[facility]/ZIP Code Phon e Number [facility] - POINT OF CARE [address] [place] [phone] RED BLOOD CELLS LEUKOCYTE REDUCED ADULT (BLOOD ADMIN) (06/24/2022 8:39 AM CDT) [facility] RBC Ready Product [facility] Ready Specimen Anatomical Collection Method Collection Time Receive d Time (Source) Location / / Volume Laterality Other 06/24/2022 8:39 AM 2 8:39 CDT AM CDT Narrative [facility] - 06/24/2022 8:45 AM CDT 2 units travel occupational therapist to OR to have available in case 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 bleeding Is a signed informed consent on file: Ludwig regan-on file Reason for Transfusion:->Anticipated Blo od Loss for Surgery/Procedure Does patient require irradiated product: No 2 Units Miri Matthew MD BLOOD BANK ORDERABLES (BLOOD ADMIN) Performing Organization Address [facility] Phon e Number [facility] [place] [address] (ABNORMAL) ANTI XA HEPARIN UNFRACTIONATED (06/24/2022 7:04 AM CDT) [facility] Anti XA Hep U 0.12 (L) 0.30 - [facility] 0.70 IU/mL Specimen Anatomical Collection Method Collection Time Receive d Time (Source) Location / / Volume Laterality Blood 06/24/2022 7:04 AM 2 7:35 CDT AM CDT Patrice Hollins MD LABORATORY Performing Organization Address City/[facility]/ZIP Code Phon e Number [facility] [place] [address] (ABNORMAL) POC GLUCOSE (06/24/2022 6:42 AM CDT) athologist [facility] POC Glucose 155 (H) 70 - 100 [facility] mg/dL CAMPUS - POINT OF CARE Specimen (Source) Anatomical Collection Method Collection Time Re ceived Time Location / / Volume Laterality Blood 06/24/2022 6:42 AM CDT Kingston Castañeda MD LABORATORY Performing Organization Address City/State/ZIP Code Phon e Number [facility] - POINT OF CARE [address] [place] [phone] MAGNESIUM (06/24/2022 5:43 AM CDT) athologist Signature Magnesium 2.0 1.6 - 2.6 [facility] mg/dL Specimen Anatomical Collection Method Collection Time Receive d Time (Source) Location / / Volume Laterality Blood 06/24/2022 5:43 AM 2 6:18 CDT AM CDT Patrice Hollins MD LABORATORY Performing Organization Address City/[facility] Code Phon e Number [facility] [place] [address] (ABNORMAL) PANEL RENAL (06/24/2022 5:43 AM CDT) athologist Signature Sodium 132 (L) 135 - 148 [facility] mEq/L Potassium 4.2 3.5 - 5.3 [facility] mEq/L Chloride 96 92 - 108 [facility] mEq/L CO2 23 22 - 30 [facility] mEq/L Glucose 160 (H) 70 - 100 [facility] mg/dL BUN 19 6 - 20 [facility] mg/dL Creatinine 0.62 (L) 0.70 - 1.25 [facility] mg/dL Calcium 9.5 8.6 - 10.0 [facility] mg/dL Albumin 3.7 (L) 3.8 - 5.1 [facility] g/dL Phosphorus 4.3 2.5 - 4.5 [facility] mg/dL eGFR, High >120 >=60 [facility] ml/min/1.73 m2 Comment: Calculated using CKD-EPI equati on AnGap 13 8 - 16 mEq/L [facility] eGFR, Low 120 >=60 ml/min/1.73m2 [facility] Comment: Calculated using CKD-EPI equati on Specimen Anatomical Collection Method Collection Time Receive d Time (Source) Location / / Volume Laterality Blood 06/24/2022 5:43 AM 2 6:18 CDT AM CDT Patrice Hollins MD LABORATORY Performing Organization Address City/[facility]/ZIP Code Phon e Number [facility] [place] [address] (ABNORMAL) CBC WITH PLATELET (06/24/2022 5:43 AM CDT) P athologist Signature WBC 11.29 (H) 4.00 - [facility] 10.00 k/cmm RBC 4.30 (L) 4.60 - 6.00 [facility] m/cmm Hgb 12.0 (L) 13.1 - 17.5 [facility] g/dL Hematocrit 36.0 (L) 40.0 - 51.0 [facility] % MCV 83.7 80.0 - [facility] 100.0 fL MCH 27.9 25.0 - 32.0 [facility] pg MCHC 33.3 31.0 - 36.0 [facility] g/dL RDW 13.3 11.5 - 14.5 [facility] % Plt 527 (H) 150 - 400 [facility] k/cmm MPV 9.8 6.5 - 12.5 [facility] fL Specimen Anatomical Collection Method Collection Time Receive d Time (Source) Location / / Volume Laterality Blood 06/24/2022 5:43 AM 2 6:18 CDT AM CDT Patrice Hollins MD LABORATORY Performing Organization Address City/[facility]/ZIP Code Phon e Number [facility] [place] [address] (ABNORMAL) ANTI XA HEPARIN UNFRACTIONATED (06/23/2022 10:42 PM CDT) P athologist Signature Anti XA Hep U 0.29 (L) 0.30 - [facility] 0.70 IU/mL Specimen Anatomical Collection Method Collection Time Receive d Time (Source) Location / / Volume Laterality Blood 06/23/2022 10:42 06/23/2022 PM CDT 11:02 PM CDT Patrcie Hollins MD LABORATORY Performing Organization Address City/[facility]/ZIP Code Phon e Number [facility] [place] [address] (ABNORMAL) POC GLUCOSE (06/23/2022 8:46 PM CDT) athologist Signature POC Glucose 136 (H) 70 - 100 [facility] mg/dL CAMPUS - POINT OF CARE Specimen (Source) Anatomical Collection Method Collection Time Re ceived Time Location / / Volume Laterality Blood 06/23/2022 8:46 PM CDT Kingston Castañeda MD LABORATORY Performing Organization Address City/[facility]/ZIP Code Phon e Number [facility] - POINT OF CARE [address] [place] [phone] (ABNORMAL) POC GLUCOSE (06/23/2022 3:57 PM CDT) athologist Signature POC Glucose 200 (H) 70 - 100 [facility] mg/dL CAMPUS - POINT OF CARE Specimen (Source) Anatomical Collection Method Collection Time Re ceived Time Location / / Volume Laterality Blood 06/23/2022 3:57 PM CDT Kingston Castañeda MD LABORATORY Performing Organization Address [facility] Code Phon e Number [facility] - POINT OF CARE [address] [place] [phone] (ABNORMAL) ANTI XA HEPARIN UNFRACTIONATED (06/23/2022 3:40 PM CDT) [facility] Anti XA Hep U <0.04 (L) 0.30 - [facility] 0.70 IU/mL Specimen Anatomical Collection Method Collection Time Receive d Time (Source) Location / / Volume Laterality Blood 06/23/2022 3:40 PM 3:47 CDT PM CDT Patrice Hollins MD LABORATORY Performing Organization Address City/[facility]/ZIP Code Phon e Number [facility] [place] [address] (ABNORMAL) POC GLUCOSE (06/23/2022 11:08 AM CDT) athologist Signature POC Glucose 125 (H) 70 - 100 [facility] mg/dL CAMPUS - POINT OF CARE Specimen (Source) Anatomical Collection Method Collection Time Re ceived Time Location / / Volume Laterality Blood 06/23/2022 11:08 AM CDT Kingston Castañeda MD LABORATORY Performing Organization Address City/[facility]/ZIP Code Phon e Number [facility] - POINT OF CARE [address] [place] [phone] (ABNORMAL) ANTI XA HEPARIN UNFRACTIONATED (06/23/2022 6:25 AM CDT) Analysis [facility]formed At [facility] Time Signature Anti XA Hep U <0.04 (L) 0.30 - [facility] 0.70 IU/mL Specimen Anatomical Collection Method Collection Time Receive d Time (Source) Location / / Volume Laterality Blood 06/23/2022 6:25 AM 6:34 CDT AM CDT Patrice Hollins MD LABORATORY Performing Organization Address City/State/ZIP Code Phon e Number [facility] [place] [address] (ABNORMAL) POC GLUCOSE (06/23/2022 6:10 AM CDT) athologist Signature POC Glucose 131 (H) 70 - 100 [facility] mg/dL CAMPUS - POINT OF CARE Specimen (Source) Anatomical Collection Method Collection Time Re ceived Time Location / / Volume Laterality Blood 06/23/2022 6:10 AM CDT Kingston Castañeda MD LABORATORY Performing Organization Address City/[facility]/ZIP Code Phon e Number [facility] - POINT OF CARE [address] [place] [phone] (ABNORMAL) POC GLUCOSE (06/22/2022 9:19 PM CDT) athologist Signature POC Glucose 195 (H) 70 - 100 [facility] mg[facility]dL C[facility] - POINT OF CARE Specimen (Source) Anatomical Collection Method Collection Time Re ceived Time Location / / Volume Laterality Blood 06/22/2022 9:19 PM CDT Kingston Castañeda MD LABORATORY Performing Organization Address City/[facility]/ZIP Code Phon e Number [facility] - POINT OF CARE [address] [place] [phone] (ABNORMAL) POC GLUCOSE (06/22/2022 4:03 PM CDT) athologist Signature POC Glucose 142 (H) 70 - 100 [facility] mg/dL CAMPUS - POINT OF CARE Specimen (Source) Anatomical Collection Method Collection Time Re ceived Time Location / / Volume Laterality Blood 06/22/2022 4:03 PM CDT Kingston Castañeda MD LABORATORY Performing Organization Address City/[facility]/ZIP Code Phon e Number [facility] - POINT OF CARE [address] [place] [address] (ABNORMAL) POC GLUCOSE (06/22/2022 11:07 AM CDT) athologist Signature POC Glucose 115 (H) 70 - 100 [facility] mg/dL CAMPUS - POINT OF CARE Specimen (Source) Anatomical Collection Method Collection Time Re ceived Time Location / / Volume Laterality Blood 06/22/2022 11:07 AM CDT Kingston Castañeda MD LABORATORY Performing Organization Address City/[facility]/ZIP Code Phon e Number [facility] - POINT OF CARE [address] [place] [phone] (ABNORMAL) PROTHROMBIN (PT) & INR (06/22/2022 10:53 AM CDT) athologist [facility] PT 13.9 (H) 9.0 - 12.5 [facility] sec INR 1.2 (H) 0.8 - 1.1 [facility] Specimen Anatomical Collection Method Collection Time Receive d Time (Source) Location / / Volume Laterality Blood 06/22/2022 10:53 06/22/2022 AM CDT 11:01 AM CDT Patrice Hollins MD LABORATORY Performing Organization Address City/[facility]/ZIP Code Phon e Number [facility] [place] [address] ANTIBODY SCREEN (06/22/2022 10:53 AM CDT) athologist Signature Sabrina Screen Negative [facility] Specimen Anatomical Collection Method Collection Time Receive d Time (Source) Location / / Volume Laterality Blood 06/22/2022 10:53 06/22/2022 AM CDT 11:02 AM CDT Patrice Hollins MD LAB TRANSFUSION SERVICES Performing Organization Address City/State/ZIP Code Phon e Number [facility] [place] [address] BLOOD TYPING-ABO/RH (06/22/2022 10:53 AM CDT) athologist Signature ABORHG A POS [facility] Specimen Anatomical Collection Method Collection Time Receive d Time (Source) Location / / Volume Laterality Blood 06/22/2022 10:53 06/22/2022 AM CDT 11:02 AM CDT Patrice Hollins MD LAB TRANSFUSION SERVICES Performing Organization Address [facility] Code Phon e Number [facility] [place] [address] COVID-19 SURVEILLANCE (06/22/2022 7:10 AM CDT) [facility] gist Method Time Signature COVID-19 Not Detected Not Detected [facility] Specimen (Source) Anatomical Collection Method Collection Time Re ceived Time Location / / Volume Laterality Nasopharyngeal Swab 06/22/2022 7:10 06/22 AM CDT 11:15 AM CDT Narrative [facility] - 06/22/2022 12:26 PM CDT Preferred specimen is Nasopharyngeal swab Is the patient a healthcare employee: No Is the patient a [employer] ([employer]) Employee : No Patrice Hollins MD LABORATORY Performing Organization Address City/[facility]/ZIP Code Phon e Number [facility] [place] [address] (ABNORMAL) POC GLUCOSE (06/22/2022 6:11 AM CDT) athologist Signature POC Glucose 160 (H) 70 - 100 [facility] mg/dL CAMPUS - POINT OF CARE Specimen (Source) Anatomical Collection Method Collection Time Re ceived Time Location / / Volume Laterality Blood 06/22/2022 6:11 AM CDT Kingston Castañeda MD LABORATORY Performing Organization Address City/[facility]/ZIP Code Phon e Number [facility] - POINT OF CARE [address] [place] [phone] ANTI XA HEPARIN UNFRACTIONATED (06/22/2022 5:25 AM CDT) athologist Signature Anti XA Hep U 0.53 0.30 - 0.70 [facility] IU/mL Specimen Anatomical Collection Method Collection Time Receive d Time (Source) Location / / Volume Laterality Blood 06/22/2022 5:25 AM 9:54 CDT AM CDT Patrice Hollins MD LABORATORY Performing Organization Address City/[facility]/ZIP Code Phon e Number [facility] [place] [address] (ABNORMAL) CBC WITH PLATELET (06/22/2022 5:25 AM CDT) P athologist Signature WBC 10.55 (H) 4.00 - [facility] 10.00 k/cmm RBC 3.58 (L) 4.60 - 6.00 [facility] m/cmm Hgb 10.1 (L) 13.1 - 17.5 [facility] g/dL Hematocrit 30.2 (L) 40.0 - 51.0 [facility] % MCV 84.4 80.0 - [facility] 100.0 fL MCH 28.2 25.0 - 32.0 [facility] pg MCHC 33.4 31.0 - 36.0 [facility] g/dL RDW 13.3 11.5 - 14.5 [facility] % Plt 378 150 - 400 [facility] k/cmm MPV 9.7 6.5 - 12.5 [facility] fL Specimen Anatomical Collection Method Collection Time Receive d Time (Source) Location / / Volume Laterality Blood 06/22/2022 5:25 AM 2 5:39 CDT AM CDT Patrice Hollins MD LABORATORY Performing Organization Address City/[facility]/ZIP Code Phon e Number [facility] [place] [address] ANTI XA ASSAY LMW HEPARIN (06/22/2022 5:25 AM CDT) athologist Signature Anti XA LMW 0.63 IU/mL [facility] Comment: Anti Xa Assay LMW Heparin Therapeutic Ra nges: 0.4-1.1 IU/mL for twice daily 1.0-2.0 IU/mL for once daily Specimen Anatomical Collection Method Collection Time Receive d Time (Source) Location / / Volume Laterality Blood 06/22/2022 5:25 AM 2 5:39 CDT AM CDT Patrice Hollins MD LABORATORY Performing Organization Address City/State/ZIP Code Phon e Number [facility] [place] [address] (ABNORMAL) POC GLUCOSE (06/21/2022 9:06 PM CDT) P athologist Signature POC Glucose 158 (H) 70 - 100 [facility] mg/dL CAMPUS - POINT OF CARE Specimen (Source) Anatomical Collection Method Collection Time Re ceived Time Location / / Volume Laterality Blood 06/21/2022 9:06 PM CDT Kingston Castañeda MD LABORATORY Performing Organization Address City/[facility]/ZIP Code Phon e Number [facility] - POINT OF CARE [address] [place] [address] (ABNORMAL) POC GLUCOSE (06/21/2022 4:13 PM CDT) athologist Signature POC Glucose 145 (H) 70 - 100 [facility] mg/dL CAMPUS - POINT OF CARE Specimen (Source) Anatomical Collection Method Collection Time Re ceived Time Location / / Volume Laterality Blood 06/21/2022 4:13 PM CDT Kingston Castañeda MD LABORATORY Performing Organization Address City/[facility]/ZIP Code Phon e Number [facility] - POINT OF CARE [address] [place] [address] (ABNORMAL) POC GLUCOSE (06/21/2022 11:53 AM CDT) athologist Signature POC Glucose 154 (H) 70 - 100 [facility] mg/dL CAMPUS - POINT OF CARE Specimen (Source) Anatomical Collection Method Collection Time Re ceived Time Location / / Volume Laterality Blood 06/21/2022 11:53 AM CDT Kingston Castañeda MD LABORATORY Performing Organization Address City/[facility]/ZIP Code Phon e Number [facility] - POINT OF CARE [address] [place] [address] ANTI XA HEPARIN UNFRACTIONATED (06/21/2022 6:19 AM CDT) athologist Signature Anti XA Hep U 0.30 0.30 - 0.70 [facility] IU/mL Specimen Anatomical Collection Method Collection Time Receive d Time (Source) Location / / Volume Laterality Blood 06/21/2022 6:19 AM 6:57 CDT AM CDT Patrice Hollins MD LABORATORY Performing Organization Address City/[facility]/ZIP Code Phon e Number [facility] [place] [address] [place] [address] (ABNORMAL) POC GLUCOSE (06/21/2022 6:17 AM CDT) athologist Signature POC Glucose 141 (H) 70 - 100 [facility] mg/dL CAMPUS - POINT OF CARE Specimen (Source) Anatomical Collection Method Collection Time Re ceived Time Location / / Volume Laterality Blood 06/21/2022 6:17 AM CDT Kingston Castañeda MD LABORATORY Performing Organization Address [facility] Phon e Number [facility] - POINT OF CARE [address] [place] [phone] (ABNORMAL) POC GLUCOSE (06/20/2022 8:51 PM CDT) athologist Signature POC Glucose 153 (H) 70 - 100 [facility] mg/dL CAMPUS - POINT OF CARE Specimen (Source) Anatomical Collection Method Collection Time Re ceived Time Location / / Volume Laterality Blood 06/20/2022 8:51 PM CDT Kingston Castañeda MD LABORATORY Performing Organization Address [facility] Phon e Number [facility] - POINT OF CARE [address] [place] [address] (ABNORMAL) POC GLUCOSE (06/20/2022 4:10 PM CDT) athologist Signature POC Glucose 133 (H) 70 - 100 [facility] mg/dL CAMPUS - POINT OF CARE Specimen (Source) Anatomical Collection Method Collection Time Re ceived Time Location / / Volume Laterality Blood 06/20/2022 4:10 PM CDT Kingston Castañeda MD LABORATORY Performing Organization Address [facility] Phon e Number [facility] - POINT OF CARE [address] [place] [phone] XR ANKLE RIGHT 3 V AP/OBL/LAT* (06/20/2022 1:41 PM CDT) Anatomical Region Laterality Modality Foot Computed Radiography Specimen (Source) Anatomical Collection Method Collection Time Re ceived Time Location / / Volume Laterality 06/20/2022 1:53 PM CDT Impressions 06/20/2022 1:53 PM CDT Impression: No fracture. Reading Radiologist: Mario Orr 06/20/2022 1:53 PM CDT Indication: ??pain post [...] XA Hep U 0.34 0.30 - 0.70 [facility] IU/mL Specimen Anatomical Collection Method Collection Time Receive d Time (Source) Location / / Volume Laterality Blood 06/20/2022 12:14 06/20/2022 PM CDT 12:42 PM CDT Patrice Hollins MD LABORATORY Performing Organization Address City/[facility] Code Phon e Number [facility] [place] [address] (ABNORMAL) POC GLUCOSE (06/20/2022 12:06 PM CDT) athologist Signature POC Glucose 143 (H) 70 - 100 [facility] mg/dL CAMPUS - POINT OF CARE Specimen (Source) Anatomical Collection Method Collection Time Re ceived Time Location / / Volume Laterality Blood 06/20/2022 12:06 PM CDT Kingston Castañeda MD LABORATORY Performing Organization Address City/[facility]/ZIP Code Phon e Number [facility] CAMPUS - POINT OF CARE [address] [place] [address] (ABNORMAL) POC GLUCOSE (06/20/2022 6:19 AM CDT) athologist Signature POC Glucose 126 (H) 70 - 100 [facility] mg/dL CAMPUS - POINT OF CARE Specimen (Source) Anatomical Collection Method Collection Time Re ceived Time Location / / Volume Laterality Blood 06/20/2022 6:19 AM CDT Kingston Castañeda MD LABORATORY Performing Organization Address City/State/ZIP Code Phon e Number [facility]AMP[facility] - POINT OF CARE [address] [place] [phone] ANTI XA HEPARIN UNFRACTIONATED (06/20/2022 5:57 AM CDT) athologist [facility] Anti XA Hep U 0.42 0.30 - 0.70 [facility] IU/mL Specimen Anatomical Collection Method Collection Time Receive d Time (Source) Location / / Volume Laterality Blood 06/20/2022 5:57 AM 2 6:19 CDT AM CDT Patrice Hollins MD LABORATORY Performing Organization Address City/[facility] Phon e Number [facility] [place] [address] (ABNORMAL) PANEL BASIC METABOLIC (BMP) (06/20/2022 5:57 AM CDT) athologist [facility] CO2 26 22 - 30 [facility] mEq/L Glucose 146 (H) 70 - 100 [facility] mg/dL BUN 14 6 - 20 [facility] mg/dL Creatinine 0.63 (L) 0.70 - 1.25 [facility] mg/dL Calcium 8.4 (L) 8.6 - 10.0 [facility] mg/dL eGFR, High >120 >=60 [facility] ml/min/1.73 m2 Comment: Calculated using CKD-EPI equati on Sodium 139 135 - 148 mEq/L [facility] Potassium 3.8 3.5 - 5.3 mEq/L [facility] Chloride 103 92 - 108 mEq/L [facility] eGFR, Low 119 >=60 ml/min/1.73m2 [facility] Comment: Calculated using CKD-EPI equati on AnGap 10 8 - 16 mEq/L [facility] Specimen Anatomical Collection Method Collection Time Receive d Time (Source) Location / / Volume Laterality Blood 06/20/2022 5:57 AM 2 6:19 CDT AM CDT Patrice Hollins MD LABORATORY Performing Organization Address City/[facility]/ZIP Code Phon e Number [facility] [place] [address] (ABNORMAL) CBC WITH PLATELET (06/20/2022 5:57 AM CDT) athologist Signature WBC 7.23 4.00 - [facility] 10.00 k/cmm RBC 3.19 (L) 4.60 - 6.00 [facility] m/cmm Hgb 9.0 (L) 13.1 - 17.5 [facility] g/dL Hematocrit 27.0 (L) 40.0 - 51.0 [facility] % MCV 84.6 80.0 - [facility] 100.0 fL MCH 28.2 25.0 - 32.0 [facility] pg MCHC 33.3 31.0 - 36.0 [facility] g/dL RDW 13.1 11.5 - 14.5 [facility] % Plt 266 150 - 400 [facility] k/cmm MPV 10.1 6.5 - 12.5 [facility] fL Specimen Anatomical Collection Method Collection Time Receive d Time (Source) Location / / Volume Laterality Blood 06/20/2022 5:57 AM 2 6:19 CDT AM CDT Patrice Hollins MD LABORATORY Performing Organization Address City/[facility]/ZIP Code Phon e Number [facility] [place] [address] EXTRA TUBE - SST (06/20/2022 1:05 AM CDT) athologist Signature SST TUBE Stored [facility] Comment: SST tubes (Serum Separator) are stored in the lab for 3 days from the collection date. Specimen Anatomical Collection Method Collection Time Receive d Time (Source) Location / / Volume Laterality Blood 06/20/2022 1:05 AM 2 1:05 CDT AM CDT Kingston Castañeda MD LABORATORY Performing Organization Address City/[facility]/ZIP Code Phon e Number [facility] [place] [address] ANTI XA HEPARIN UNFRACTIONATED (06/20/2022 12:19 AM CDT) P athologist Signature Anti XA Hep U 0.44 0.30 - 0.70 [facility] IU/mL Specimen Anatomical Collection Method Collection Time Receive d Time (Source) Location / / Volume Laterality Blood 06/20/2022 12:19 06/20/2022 1:07 AM CDT AM CDT Patrice Hollins MD LABORATORY Performing Organization Address City/State/ZIP Code Phon e Number [facility] [place] [address] [place] [address] (ABNORMAL) POC GLUCOSE (06/19/2022 8:57 PM CDT) P athologist Signature POC Glucose 126 (H) 70 - 100 [facility] mg/dL CAMPUS - POINT OF CARE Specimen (Source) Anatomical Collection Method Collection Time Re ceived Time Location / / Volume Laterality Blood 06/19/2022 8:57 PM CDT Kingston Castañeda MD LABORATORY Performing Organization Address City/State/ZIP Code Phon e Number [facility] [place] - POINT OF CARE [address] [place] [phone] XR FOOT RIGHT 3 V AP/OBL/LAT* (06/19/2022 [...] fracture. IMPRESSION Impression: Stable alignment. Reading Radiologist: Irfanullah, Anam Miri Matthew MD X-RAY (ABNORMAL) ANTI XA HEPARIN UNFRACTIONATED (06/19/2022 5:27 PM CDT) athologist Signature Anti XA Hep U 0.25 (L) 0.30 - [facility] 0.70 IU/mL Specimen Anatomical Collection Method Collection Time Receive d Time (Source) Location / / Volume Laterality Blood 06/19/2022 5:27 PM 6:07 CDT PM CDT Patrice Hollins MD LABORATORY Performing Organization Address City/State/ZIP Code Phon e Number [facility] [place] [address] (ABNORMAL) POC GLUCOSE (06/19/2022 4:01 PM CDT) athologist Signature POC Glucose 159 (H) 70 - 100 [facility] mg/dL CAMPUS - POINT OF CARE Specimen (Source) Anatomical Collection Method Collection Time Re ceived Time Location / / Volume Laterality Blood 06/19/2022 4:01 PM CDT Kingston Castañeda MD LABORATORY Performing Organization Address City/[facility]/ZIP Code Phon e Number [facility]AMP[facility] - POINT OF CARE [address] [place] [address] ANTI XA HEPARIN UNFRACTIONATED (06/19/2022 12:51 PM CDT) athologist Signature Anti XA Hep U 0.34 0.30 - 0.70 [facility] IU/mL Specimen Anatomical Collection Method Collection Time Receive d Time (Source) Location / / Volume Laterality Blood 06/19/2022 12:51 06/19/2022 PM CDT 12:59 PM CDT Patrice Hollins MD LABORATORY Performing Organization Address City/[facility]/ZIP Code Phon e Number [facility] [place] [address] PELVIS 3D RECONSTRUCTION (06/19/2022 11:49 [...] lumbar spine. Procedure Note Rizwan Cunningham V., MBBS - 06/19/2022Form atting of this note [...] 128 (H) 70 - 100 [facility] mg/dL CAMPUS - POINT OF CARE Specimen (Source) Anatomical Collection Method Collection Time Re ceived Time Location / / Volume Laterality Blood 06/19/2022 11:19 AM CDT Kingston Castañeda MD LABORATORY Performing Organization Address City/State/ZIP Code Phon e Number [facility] [place] - POINT OF CARE [address] [place] [address] CT UROGRAM (06/19/2022 11:05 AM CDT) Anatomical [...] POC Glucose 135 (H) 70 - 100 [facility] mg/dL CAMPUS - POINT OF CARE Specimen (Source) Anatomical Collection Method Collection Time Re ceived Time Location / / Volume Laterality Blood 06/19/2022 6:03 AM CDT Kingston Castañeda MD LABORATORY Performing Organization Address City/State/ZIP Code Phon e Number [facility] - POINT OF CARE [address] [place] [phone] (ABNORMAL) ANTI XA HEPARIN UNFRACTIONATED (06/19/2022 5:15 AM CDT) Analysis Performed At Patho logist Time Signature Anti XA Hep U <0.04 (L) 0.30 - [facility] 0.70 IU/mL Specimen Anatomical Collection Method Collection Time Receive d Time (Source) Location / / Volume Laterality Blood 06/19/2022 5:15 AM 6:21 CDT AM CDT Patrice Hollins MD LABORATORY Performing Organization Address City/[facility]/ZIP Code Phon e Number [facility] [place] [address] (ABNORMAL) PANEL BASIC METABOLIC (BMP) (06/19/2022 5:15 AM CDT) athologist Signature CO2 24 22 - 30 [facility] mEq/L Glucose 140 (H) 70 - 100 [facility] mg/dL BUN 12 6 - 20 [facility] mg/dL Creatinine 0.61 (L) 0.70 - 1.25 [facility] mg/dL Calcium 8.4 (L) 8.6 - 10.0 [facility] mg/dL eGFR, High >120 >=60 [facility] ml/min/1.73 m2 Comment: Calculated using CKD-EPI equati on Sodium 139 135 - 148 mEq/L [facility] Potassium 4.5 3.5 - 5.3 mEq/L [facility] Chloride 104 92 - 108 mEq/L [facility] eGFR, Low >120 >=60 ml/min/1.73m2 [facility] Comment: Calculated using CKD-EPI equati on AnGap 11 8 - 16 mEq/L [facility] Specimen Anatomical Collection Method Collection Time Receive d Time (Source) Location / / Volume Laterality Blood 06/19/2022 5:15 AM 2 6:21 CDT AM CDT Patrice Hollins MD LABORATORY Performing Organization Address City/State/ZIP Code Phon e Number [facility] [place] [address] (ABNORMAL) CBC WITH PLATELET (06/19/2022 5:15 AM CDT) P athologist Signature WBC 4.92 4.00 - [facility] 10.00 k/cmm RBC 3.30 (L) 4.60 - 6.00 [facility] m/cmm Hgb 9.4 (L) 13.1 - 17.5 [facility] g/dL Hematocrit 28.0 (L) 40.0 - 51.0 [facility] % MCV 84.8 80.0 - [facility] 100.0 fL MCH 28.5 25.0 - 32.0 [facility] pg MCHC 33.6 31.0 - 36.0 [facility] g/dL RDW 12.8 11.5 - 14.5 [facility] % Plt 227 150 - 400 [facility] k/cmm MPV 10.7 6.5 - 12.5 [facility] fL Specimen Anatomical Collection Method Collection Time Receive d Time (Source) Location / / Volume Laterality Blood 06/19/2022 5:15 AM 2 6:21 CDT AM CDT Patrice Hollins MD LABORATORY Performing Organization Address City/[facility]/ZIP Code Phon e Number [facility] [place] [address] (ABNORMAL) ANTI XA HEPARIN UNFRACTIONATED (06/18/2022 11:59 PM CDT) Analysis Performed At Patho logist Time Signature Anti XA Hep U <0.04 (L) 0.30 - [facility] 0.70 IU/mL Specimen Anatomical Collection Method Collection Time Receive d Time (Source) Location / / Volume Laterality Blood 06/18/2022 11:59 06/18/2022 PM CDT 11:59 PM CDT Narrative [facility] - 06/19/2022 12:35 AM CDT Baseline Patrice Hollins MD LABORATORY Performing Organization Address [facility]/ZIP Code Phon e Number [facility] [place] [address] (ABNORMAL) POC GLUCOSE (06/18/2022 9:13 PM CDT) P athologist Signature POC Glucose 127 (H) 70 - 100 [facility] mg/dL CAMPUS - POINT OF CARE Specimen (Source) Anatomical Collection Method Collection Time Re ceived Time Location / / Volume Laterality Blood 06/18/2022 9:13 PM CDT Kingston Castañeda MD LABORATORY Performing Organization Address City/[facility]/ZIP Code Phon e Number [facility] - POINT OF CARE [address] [place] [phone] (ABNORMAL) POC GLUCOSE (06/18/2022 7:03 PM CDT) P athologist Signature POC Glucose 147 (H) 70 - 100 [facility] mg/dL CAMPUS - POINT OF CARE Specimen (Source) Anatomical Collection Method Collection Time Re ceived Time Location / / Volume Laterality Blood 06/18/2022 7:03 PM CDT [place] Castañeda MD LABORATORY Performing Organization Address City/[facility]/ZIP Code Phon e Number [facility] - POINT OF CARE [address] [place] [address] XR C ARM OVER 3 HRS (06/18/2022 [...] Radiologist: Rhett Ramires Resident: Beto Irene 06/19/2022 10:09 AM CDT [...] wa s performed. Procedure Note Rhett Ramires, - 06/19/2022Form atting of this note might [...] X-RAY POC GLUCOSE (06/18/2022 4:15 PM CDT) athologist Signature POC Glucose 98 70 - 100 [facility] mg/dL CAMPUS - POINT OF CARE Specimen (Source) Anatomical Collection Method Collection Time Re ceived Time Location / / Volume Laterality Blood 06/18/2022 4:15 PM CDT Kingston Castañeda MD LABORATORY Performing Organization Address City/State/ZIP Code Phon e Number [facility] - POINT OF CARE [address] [place] [address] .Post Sedation Immediate (06/18/2022 12:23 PM CDT) [...] the needle into the IVC. A 5 Romanian pigtail flush catheter was advanced over the [...] the needle into the IVC. A 5 Romanian pigtail flush catheter was advanc ed over [...] 109 (H) 70 - 100 [facility] mg/dL CAMPUS - POINT OF CARE Specimen (Source) Anatomical Collection Method Collection Time Re ceived Time Location / / Volume Laterality Blood 06/18/2022 11:21 AM CDT Kingston Castañeda MD LABORATORY Performing Organization Address City/[facility]/ZIP Code Phon e Number [facility] - POINT OF CARE [address] [place] [phone] (ABNORMAL) ANTI XA HEPARIN UNFRACTIONATED (06/18/2022 10:27 AM CDT) Analysis Performed At Patho logist Time Signature Anti XA Hep U <0.04 (L) 0.30 - [facility] 0.70 IU/mL Specimen Anatomical Collection Method Collection Time Receive d Time (Source) Location / / Volume Laterality Blood 06/18/2022 10:27 06/18/2022 AM CDT 10:32 AM CDT Patrice Hollins MD LABORATORY Performing Organization Address City/State/ZIP Code Phon e Number [facility] [place] [address] XR URETHROGRAM RETROGRADE (06/18/2022 9:14 AM CDT) Anatomical Region Laterality Modality Abdomen Radio Fluoroscopy Specimen (Source) Anatomical Collection Method Collection Time Re ceived Time Location / / Volume Laterality 06/18/2022 11:18 AM CDT Impressions 06/18/2022 11:22 AM CDT IMPRESSION: No evidence for anterior urethral injury. Reading Radiologist: Mario Orr 06/18/2022 11:22 AM CDT Indication: ??r/o bladder [...] was unremarkable. No extravasatio n was demonstrated. Bladder Trimmer: Kirby Complications: None Fluoroscopy time: 22 seconds [...] urethra was unremarkable. No extravasation was demonstrated. Bladder Trimmer: Kirby Complications: None Fluoroscopy time: 22 seconds Dose: 12 mGy IMPRESSION IMPRESSION: No evidence for anterior ure thral injury. Reading Radiologist: Mario Orr Patrice Hollins MD FLUORO (ABNORMAL) POC GLUCOSE (06/18/2022 6:26 AM CDT) athologist Signature POC Glucose 125 (H) 70 - 100 [facility] mg/dL CAMPUS - POINT OF CARE Specimen (Source) Anatomical Collection Method Collection Time Re ceived Time Location / / Volume Laterality Blood 06/18/2022 6:26 AM CDT Kingston Castañeda MD LABORATORY Performing Organization Address City/State/ZIP Code Phon e Number [facility] - POINT OF CARE [address] [place] [address] (ABNORMAL) ANTI XA HEPARIN UNFRACTIONATED (06/18/2022 4:50 AM CDT) Analysis Performed At Patho logist Time Signature Anti XA Hep U <0.04 (L) 0.30 - [facility] 0.70 IU/mL Specimen Anatomical Collection Method Collection Time Receive d Time (Source) Location / / Volume Laterality Blood 06/18/2022 4:50 AM 2 5:11 CDT AM CDT Patrice Hollins MD LABORATORY Performing Organization Address City/State/ZIP Code Ph[place] [address] (ABNORMAL) PANEL BASIC METABOLIC (BMP) (06/18/2022 4:50 AM CDT) P athologist Signature CO2 23 22 - 30 [facility] mEq/L Glucose 137 (H) 70 - 100 [facility] mg/dL BUN 12 6 - 20 [facility] mg/dL Creatinine 0.66 (L) 0.70 - 1.25 [facility] mg/dL Calcium 8.3 (L) 8.6 - 10.0 [facility] mg/dL eGFR, High >120 >=60 [facility] ml/min/1.73 m2 Comment: Calculated using CKD-EPI equati on Sodium 137 135 - 148 mEq/L [facility] Potassium 3.8 3.5 - 5.3 mEq/L [facility] Chloride 105 92 - 108 mEq/L [facility] eGFR, Low 117 >=60 ml/min/1.73m2 [facility] Comment: Calculated using CKD-EPI equati on AnGap 9 8 - 16 mEq/L [facility] Specimen Anatomical Collection Method Collection Time Receive d Time (Source) Location / / Volume Laterality Blood 06/18/2022 4:50 AM 2 5:11 CDT AM CDT Patrice Hollins MD LABORATORY Performing Organization Address City/State/ZIP Code [place] [address] (ABNORMAL) CBC WITH PLATELET (06/18/2022 4:50 AM CDT) P athologist Signature WBC 7.80 4.00 [facility] 10.[facility] k/cmm RBC 3.37 (L) 4.60 - 6.00 [facility] m/cmm Hgb 9.6 (L) 13.1 - 17.5 [facility] g/dL Hematocrit 28.8 (L) 40.0 - 51.0 [facility] % MCV 85.5 80.0 - [facility] 100.0 fL MCH 28.5 25.0 - 32.0 [facility] pg MCHC 33.3 31.0 - 36.0 [facility] g/dL RDW 13.3 11.5 - 14.5 [facility] % Plt 191 150 - 400 [facility] k/cmm MPV 10.2 6.5 - 12.5 [facility] fL Specimen Anatomical Collection Method Collection Time Receive d Time (Source) Location / / Volume Laterality Blood 06/18/2022 4:50 AM 5:11 CDT AM CDT Patrice Hollins MD LABORATORY Performing Organization Address City/[facility]/ZIP Code Phon e Number [facility] [place] [address] (ABNORMAL) ANTI XA HEPARIN UNFRACTIONATED (06/17/2022 10:34 PM CDT) athologist Signature Anti XA Hep U 0.22 (L) 0.30 - [facility] 0.70 IU/mL Specimen Anatomical Collection Method Collection Time Receive d Time (Source) Location / / Volume Laterality Blood 06/17/2022 10:34 06/17/2022 PM CDT 11:12 PM CDT Patrice Hollins MD LABORATORY Performing Organization Address City/[facility]/ZIP Code Phon e Number [facility] [place] [address] (ABNORMAL) POC GLUCOSE (06/17/2022 8:43 PM CDT) athologist Signature POC Glucose 132 (H) 70 - 100 [facility] mg/dL CAMPUS - POINT OF CARE Specimen (Source) Anatomical Collection Method Collection Time Re ceived Time Location / / Volume Laterality Blood 06/17/2022 8:43 PM CDT Kingston Castañeda MD LABORATORY Performing Organization Address City/State/ZIP Code Phon e Number [facility] - POINT OF CARE [address] [place] [phone] (ABNORMAL) POC GLUCOSE (06/17/2022 3:57 PM CDT) athologist Signature POC Glucose 169 (H) 70 - 100 [facility] mg/dL CAMPUS - POINT OF CARE Specimen (Source) Anatomical Collection Method Collection Time Re ceived Time Location / / Volume Laterality Blood 06/17/2022 3:57 PM CDT Kingston Castañeda MD LABORATORY Performing Organization Address City/State/ZIP Code Phon e Number [facility] - POINT OF CARE [address] [place] [address] ULT VENOUS LOWER EXTREMITY BILAT (06/17/2022 3:35 [...] reported to referring provider Nisha Guadalupe via [employer], who responded indicating that the communication was understood. Contact was made at the time of interpretation on 06/17/2022 3:37 PM, within 5 minutes of observation. Reading Radiologist: Lenny Callahan Narrative 06/17/2022 3:38 PM CDT Indication: no anticoagulation [...] reported to referring provider Nisha Guadalupe via [employer], who responded indicating that the communication was understood. Contact was made at the time of interpretation on 06/17/2022 3:37 PM, wit hin 5 minutes of observation. Reading Radiologist: Lenny Callahan Meredith Guadalupe INTERNET TECHNOLOGY MANAGER, [employer] DEVELOPER ULT (ABNORMAL) POC GLUCOSE (06/17/2022 11:54 AM CDT) athologist Signature POC Glucose 102 (H) 70 - 100 [facility] mg/dL CAMPUS - POINT OF CARE Specimen (Source) Anatomical Collection Method Collection Time Re ceived Time Location / / Volume Laterality Blood 06/17/2022 11:54 AM CDT Kingston Castañeda MD LABORATORY Performing Organization Address City/State/ZIP Code Phon e Number [facility] - POINT OF CARE [address] [place] [address] ANTIBODY SCREEN (06/17/2022 11:46 AM CDT) athologist Signature Sabrina Screen Negative [facility] Specimen Anatomical Collection Method Collection Time Receive d Time (Source) Location / / Volume Laterality Blood 06/17/2022 11:46 06/17/2022 AM CDT 12:06 PM CDT Patrice Hollins MD LAB TRANSFUSION SERVICES Performing Organization Address [facility]/ZIP Code Phon e Number [facility] [place] [address] BLOOD TYPING-ABO/RH (06/17/2022 11:46 AM CDT) athologist Signature ABORHG A POS [facility] Specimen Anatomical Collection Method Collection Time Receive d Time (Source) Location / / Volume Laterality Blood 06/17/2022 11:46 06/17/2022 AM CDT 12:06 PM CDT Patrice Hollins MD LAB TRANSFUSION SERVICES Performing Organization Address City/[facility] Phon e Number [facility] [place] [address] POC GLUCOSE (06/17/2022 6:53 AM CDT) athologist Signature POC Glucose 88 70 - 100 [facility] mg/dL CAMPUS - POINT OF CARE Specimen (Source) Anatomical Collection Method Collection Time Re ceived Time Location / / Volume Laterality Blood 06/17/2022 6:53 AM CDT Kingston Castañeda MD LABORATORY Performing Organization Address City/[facility] Code Phon e Number [facility] - POINT OF CARE [address] [place] [phone] (ABNORMAL) POC GLUCOSE (06/17/2022 6:51 AM CDT) athologist Signature POC Glucose 20 (LL) 70 - 100 [facility] mg/dL CAMPUS - POINT OF CARE Specimen (Source) Anatomical Collection Method Collection Time Re ceived Time Location / / Volume Laterality Blood 06/17/2022 6:51 AM CDT Kingston Castañeda MD LABORATORY Performing Organization Address [facility] Phon e Number [facility] - POINT OF CARE [address] [place] [id number] (ABNORMAL) PANEL BASIC METABOLIC (BMP) (06/17/2022 5:07 AM CDT) athologist Signature CO2 23 22 - 30 [facility] mEq/L Glucose 118 (H) 70 - 100 [facility] mg/dL BUN 13 6 - 20 [facility] mg/dL Creatinine 0.82 0.70 - 1.25 [facility] mg/dL Calcium 8.1 (L) 8.6 - 10.0 [facility] mg/dL eGFR, High >120 >=60 [facility] ml/min/1.73 m2 Comment: Calculated using CKD-EPI equati on Sodium 137 135 - 148 mEq/L [facility] Potassium 3.6 3.5 - 5.3 mEq/L [facility] Chloride 105 92 - 108 mEq/L [facility] eGFR, Low 107 >=60 ml/min/1.73m2 [facility] Comment: Calculated using CKD-EPI equati on AnGap 9 8 - 16 mEq/L [facility] Specimen Anatomical Collection Method Collection Time Receive d Time (Source) Location / / Volume Laterality Blood 06/17/2022 5:07 AM 2 5:37 CDT AM CDT Kingston Castañeda MD LABORATORY Performing Organization Address City/State/ZIP Code Phon e Number [facility] [place] [address] (ABNORMAL) CBC WITH PLATELET (06/17/2022 5:07 AM CDT) P athologist Signature WBC 7.32 4.00 - [facility] 10.00 k/cmm RBC 3.43 (L) 4.60 - 6.00 [facility] m/cmm Hgb 9.8 (L) 13.1 - 17.5 [facility] g/dL Hematocrit 29.4 (L) 40.0 - 51.0 [facility] % MCV 85.7 80.0 - [facility] 100.0 fL MCH 28.6 25.0 - 32.0 [facility] pg MCHC 33.3 31.0 - 36.0 [facility] g/dL RDW 13.3 11.5 - 14.5 [facility] % Plt 181 150 - 400 [facility] k/cmm MPV 10.1 6.5 - 12.5 [facility] fL Specimen Anatomical Collection Method Collection Time Receive d Time (Source) Location / / Volume Laterality Blood 06/17/2022 5:07 AM 2 5:36 CDT AM CDT Kingston Castañeda MD LABORATORY Performing Organization Address City/State/ZIP Code Phon e Number [facility] [place] [address] [place] [address] [place] [address] (ABNORMAL) POC GLUCOSE (06/16/2022 9:14 PM CDT) P athologist Signature POC Glucose 149 (H) 70 - 100 [facility] mg/dL CAMPUS - POINT OF CARE Specimen (Source) Anatomical Collection Method Collection Time Re ceived Time Location / / Volume Laterality Blood 06/16/2022 9:14 PM CDT Kingston Castañeda MD LABORATORY Performing Organization Address City/State/ZIP Code Phon e Number [facility] [place] - POINT OF CARE [address] [place] [phone] XR WRIST RIGHT 3+ PA/OB/LAT/JENS* (06/16/2022 6:58 [...] about the wrist. Procedure Note Indio Cadena, DO - 06/16/2022Form atting of this note might [...] radius. Reading Radiologist: Indio Cadena Yaritza Gallegos INTERNET TECHNOLOGY MANAGER, [employer] DEVELOPER X-RAY POC GLUCOSE (06/16/2022 6:05 PM CDT) athologist Signature POC Glucose 73 70 - 100 [facility] mg/dL [place] - POINT OF CARE Specimen (Source) Anatomical Collection Method Collection Time Re ceived Time Location / / Volume Laterality Blood 06/16/2022 6:05 PM CDT Kingston Castañeda MD LABORATORY Performing Organization Address [facility] Phon e Number [facility] - POINT OF CARE [address] [place] [address] POC GLUCOSE (06/16/2022 12:47 PM CDT) athologist Signature POC Glucose 95 70 - 100 [facility] mg/dL [place] - POINT OF CARE Specimen (Source) Anatomical Collection Method Collection Time Re ceived Time Location / / Volume Laterality Blood 06/16/2022 12:47 PM CDT Kingston Castañeda MD LABORATORY Performing Organization Address [facility] Phon e Number [facility] - POINT OF CARE [address] [place] [address] XR PELVIS 5V AP/IN/OUTLET/JUDET* (06/16/2022 12:19 PM [...] 06/15/2022. Fluoroscopy time: ??22 seconds Dose:12 mGy [place] protocol was followed. ?? Technique: The patient [...] 06/15/2022. Fluoroscopy time: 22 seconds Dose:12 mGy [place] protocol was followed. Technique: The patient arrived [...] athologist Signature Lactate 0.7 0.7 - 2.1 [facility] mmol/L Specimen Anatomical Collection Method Collection Time Receive d Time (Source) Location / / Volume Laterality Blood 06/16/2022 2:20 AM 2 2:47 CDT AM CDT Narrative [facility] - 06/16/2022 3:06 AM CDT Send specimen on ice! Gideon Dyer MD LABORATORY Performing Organization Address City/State/ZIP Code Phon e Number [facility] [place] [address] (ABNORMAL) URINALYSIS,TOTAL (06/16/2022 12:20 AM CDT) [...] SQ EPITH 0-5 0 - 5 perHPF [facility] Mucus 1+ perLPF [facility] Sperm PRESENT [facility] Bacteria UA PRESENT [facility] Comment: Presence of bacteria does not n ecessarily indicate a UTI. The presence of bacteria can indicate a non-clean catch urine specimen. Bacteria should be used in conjunction with other UA results and cl inical presentation to assist in diagnosing an infection. Urinalysis Performed at: [facility] Specific [place] 1.010 1.003 - 1.030 [facility] Specimen Anatomical Collection Method Collection Time Receive d Time (Source) Location / / Volume Laterality Urine 06/16/2022 12:20 06/16/2022 AM CDT 12:39 AM CDT Gideon Dyer MD LABORATORY Performing Organization Address City/State/ZIP Code Phon e Number [facility] [place] [address] XR PELVIS AP* (06/15/2022 11:21 PM [...] or subluxati on is seen. Procedure Note Rizawn Cunningham MBBS - 06/15/2022Form atting of this [...] ght femur. Reading Radiologist: Rizwan Cunningham Kingston Chanel Castañeda MD X-RAY CT SPINE LUMBAR NO [...] canal or neural foraminal stenosis. 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 Reading Radiologist: Stephany [...] visualized paraspi nous tissues is noted. Suspected [place] syndrome on left. Procedure Note Stephany Granda [...] visualized paraspi nous tissues is noted. Suspected [place] syndrome on left. IMPRESSION Impression: 1. No fracture or subluxation of the cer vical vertebrae. 2. No significant spinal canal or neural foraminal stenosis. 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 Reading Radiologist: Stephany [...] Not surgically evacuated. Reading Radiologist: Stephany Granda 06/15/2022 8:[address] without [...] styloid process, which can be seen in [place] syndrome. The visualized portions of the paranasal [...] styloid process, which can be seen in [place] syndrome. The visualized portions of the paranasal [...] PM CDT) athologist Signature CASTAÑEDA TUBE Stored [facility] Comment: Castañeda top (Sodium flouride) tube s are stored in the lab for 3 days from the collection date. Specimen Anatomical Collection Method Collection Time Receive d Time (Source) Location / / Volume Laterality Blood 06/15/2022 7:20 PM 7:31 CDT PM CDT Kingston Castañeda MD LABORATORY Performing Organization Address City/State/ZIP Code Phon e Number [facility] [place] [address] EXTRA TUBE - SST (06/15/2022 7:20 PM CDT) athologist Signature SST TUBE Stored [facility] Comment: SST tubes (Serum Separator) are stored in the lab for 3 days from the collection date. Specimen Anatomical Collection Method Collection Time Receive d Time (Source) Location / / Volume Laterality Blood 06/15/2022 7:20 PM 2 7:31 CDT PM CDT Kingston Castañeda MD LABORATORY Performing Organization Address City/[facility]/ZIP Code Phon e Number [facility] [place] [address] HS TROPONIN (06/15/2022 7:20 PM CDT) athologist [facility] HS Troponin I 4 <=34 ng/L [facility] Specimen Anatomical Collection Method Collection Time Receive d Time (Source) Location / / Volume Laterality Blood 06/15/2022 7:20 PM 2 7:41 CDT PM CDT Narrative [facility] - 06/15/2022 8:11 PM CDT First Occurrence of the Troponin order i s to be drawn Stat by Nursing staff on the unit. Gideon Dyer MD LABORATORY Performing Organization Address City/[facility]/ZIP Code Phon e Number [facility] [place] [address] (ABNORMAL) PTT (APTT) (06/15/2022 7:20 PM CDT) athologist [facility] APTT 21.4 (L) 25.0 - 37.0 [facility] sec Specimen Anatomical Collection Method Collection Time Receive d Time (Source) Location / / Volume Laterality Blood 06/15/2022 7:20 PM 2 7:41 CDT PM CDT Gideon Dyer MD LABORATORY Performing Organization Address City/[facility]/ZIP Code Phon e Number [facility] [place] [address] PROTHROMBIN (PT) & INR (06/15/2022 7:20 PM CDT) athologist Signature PT 11.9 9.0 - 12.5 [facility] sec INR 1.0 0.8 - 1.1 [facility] Specimen Anatomical Collection Method Collection Time Receive d Time (Source) Location / / Volume Laterality Blood 06/15/2022 7:20 PM 7:41 CDT PM CDT Gideon Dyer MD LABORATORY Performing Organization Address City/[facility] Phon e Number [facility] [place] [address] COVID-19 SURVEILLANCE (06/15/2022 7:20 PM CDT) [facility] Method Time Signature COVID-19 Not Detected Not Detected [facility] Comment: This test was developed and its performa nce characteristics determined by [facility]. This testing, RT-PCR, has been authorized by [...] 06/15 PM CDT 7:32 PM CDT Narrative [facility] - 06/15/2022 8:08 PM CDT Preferred specimen is Nasopharyngeal swab Is the patient a healthcare employee: No Is the patient a [place] [employer] Employee : No Gideon Dyer MD LABORATORY Performing Organization Address City/[facility] Phon e Number [facility] [place] [address] PRECAUTIONARY TUBE (06/15/2022 7:20 PM CDT) [facility] Method Time Signature Prec Tube Precautionary [facility] Blood Bank Specimen Received. Specimen Anatomical Collection Method Collection Time Receive d Time (Source) Location / / Volume Laterality Blood 06/15/2022 7:20 PM 2 7:43 CDT PM CDT Gideon Dyer MD LAB TRANSFUSION SERVICES Performing Organization Address City/State/ZIP Code Phon e Number [facility] [place] [address] LACTATE (LACTIC ACID) (06/15/2022 7:20 PM CDT) athologist Signature Lactate 1.4 0.7 - 2.1 [facility] mmol/L Specimen Anatomical Collection Method Collection Time Receive d Time (Source) Location / / Volume Laterality Blood 06/15/2022 7:20 PM 2 7:30 CDT PM CDT Narrative [facility] - 06/15/2022 7:30 PM CDT Send specimen on ice! Gideon Dyer MD LABORATORY Performing Organization Address City/[facility]/ZIP Code Phon e Number [facility] [place] [address] (ABNORMAL) FIBRINOGEN (06/15/2022 7:20 PM CDT) athologist Signature Fibrinogen 199 (L) 200 - 400 [facility] mg/dL Specimen Anatomical Collection Method Collection Time Receive d Time (Source) Location / / Volume Laterality Blood 06/15/2022 7:20 PM 2 7:41 CDT PM CDT Gideon Dyer MD LABORATORY Performing Organization Address City/[facility]/ZIP Code Phon e Number [facility] [place] [address] ED HEMOGLOBIN TOTAL (ED ONLY) (06/15/2022 7:20 PM CDT) athologist Signature Hgb 13.7 13.1 - 17.5 [facility] g/dL Specimen Anatomical Collection Method Collection Time Receive d Time (Source) Location / / Volume Laterality Blood 06/15/2022 7:20 PM 2 7:30 CDT PM CDT Gideon Dyer MD LABORATORY Performing Organization Address City/State/ZIP Code Phon e Number [facility] [place] [address] (ABNORMAL) ED CHEMISTRY LABS(NA,K,CL,CO2,GLU,CREAT,CA-IONIZED,ANION GAP) (06/15/2022 7:20 PM CDT) Analysis Performed At Path logist Time Signature Sodium 140 135 - 148 [facility] mEq/L Chloride 109 (H) 92 - 108 [facility] mEq/L AnGap 8 8 - 16 [facility] mEq/L Glucose 186 (H) 70 - 100 [facility] mg/dL ICA, Actual 4.44 4.40 - [facility] 5.20 mg/dL ICA, pH 4.28 (L) 4.40 - [facility] Corrected 5.20 mg/dL Creatinine 1.00 0.70 - [facility] 1.25 mg/dL BICARB 24 22 - 26 [facility] mEq/L eGFR, High 105 >=60 [facility] ml/min/1.7 3m2 Comment: Calculated using CKD-EPI equati on eGFR, Low 90 >=60 ml/min/1.73m2 [facility] Comment: Calculated using CKD-EPI equati on Potassium 3.6 3.5 - 5.3 mEq/L [facility] Specimen Anatomical Collection Method Collection Time Receive d Time (Source) Location / / Volume Laterality Blood 06/15/2022 7:20 PM 7:30 CDT PM CDT Gideon Dyer MD LABORATORY Performing Organization Address City/State/ZIP Code Phon e Number [facility] [place] [address] (ABNORMAL) CBC WITH PLTS/AUTO DIFF (06/15/2022 7:20 PM CDT) [facility] gist Method Time Signature WBC 14.21 (H) 4.00 - [facility] 10.[facility] k/cmm RBC 4.65 4.60 - [facility] 6.00 m/cmm Hgb 13.0 (L) 13.1 - [facility] 17.5 g/dL Hematocrit 39.7 (L) 40.0 - [facility] 51.0 % MCV 85.4 80.0 - [facility] 100.0 fL MCH 28.0 25.0 - [facility] 32.0 pg MCHC 32.7 31.0 - [facility] 36.0 g/dL RDW 13.2 11.5 - [facility] 14.5 % Plt 294 150 - 400 [facility] k/cmm MPV 10.6 6.5 - 12.5 [facility] fL Automated Abs 10.31 (H) 1.70 - [facility] Neutrophil 6.50 k/cmm Comment: Preliminary ANC, Final Result t o Follow Abs Immature Granulocyte 0.26 (H) 0.00 - 0.09 k/cmm [facility] Comment: The Immature Granulocyte Absolu te count contains metamyelocytes and myelocytes. Abs Neutrophil 10.31 (H) 1.70 - 6.50 k/cmm [facility] B Abs Lymphocyte 2.74 0.80 - 4.00 k/cmm [facility] B Abs Monocyte 0.67 0.20 - 1.00 k/cmm [facility] Abs Eosinophil 0.20 0.00 - 0.60 k/cmm [facility] B Abs Basophil 0.03 0.00 - 0.20 k/cmm [facility] Specimen Anatomical Collection Method Collection Time Receive d Time (Source) Location / / Volume Laterality Blood 06/15/2022 7:20 PM 2 7:41 CDT PM CDT Gideon Dyer MD LABORATORY Performing Organization Address City/[facility]/ZIP Code Phon e Number [facility] [place] [address] BLOOD GASES (06/15/2022 7:20 PM CDT) P athologist Signature PH Anish 7.33 7.32 - 7.42 [facility] PCO2 Anish 46 41 - 51 [facility] mmHG PO2 Anish 35 25 - 40 [facility] mmHG Bicarb Anish 24 24 - 28 [facility] mEq/L O2 Sat Anish 62 % [facility] Base Exc Anish -2.9 -10.0 - 2.0 [facility] mEq/L Specimen Anatomical Collection Method Collection Time Receive d Time (Source) Location / / Volume Laterality Blood Venous 06/15/2022 7:20 PM 2 7:30 CDT PM CDT Gideon Dyer MD LABORATORY Performing Organization Address City/[facility]/ZIP Code Phon e Number [facility] [place] [address] ED US CRITICAL CARE (06/15/2022 7:16 [...] process of lumbar vertebra, initial encounter () Fall, initial encounter Closed fracture of distal end of right [...] ONE TIME AUTO ACKNOWLEDGE, 1 dose, On Thu06/16/22 at 1225 enoxaparin (LOVENOX) 30 Given 06/17/2022 [...] dose, Starting on Thu06/15/22 at 2232, Until Sun 06/05 10/26 at 2238 FLEET enema 118 mL 118 mL (1 enema), Rectal, ONE TIME PRN, 1 dose, Starting on 06/23/22 at 1335, Until 06/27/22 at 2104, Constipation (Use Second) furosemide (LASIX) [...] IV Push, ONE TIME, 1 dose, On Cathy 06/19/22 at 0600 heparin 25,000 UNITS in New [...] (units/kg/hr): 18 units/kg/hr, Intravenous, CONTINUOUS, Starting on Cathy 06/19/22 at 0625, Until [place] 06/22/22 at 2359 Infusing 06/22/2022 8:00 AM [...] ONE TIME AUTO ACKNOWLEDGE, 1 dose, On 06/18/22 at 0940 ketorolac (TORADOL) 30 mg/mL injection [...] 3 mg, Oral, BEDTIME PRN, Starting on 06/23/22 at 2208, Until Thu06/27/22 at 2104, Sleep [...] at 100 mL/hr, Intravenous, CONTINUOUS, Starting on 06/16/22 at 0130, Until Thu06/20/22 at 1309 Infusing [...] IV BOLUS, 1 dose, On 06/15/22 at 2044 sodium chloride tablet 2 g Given 06/27/2022 [...] mg 0752 (Given - Provider: Gina Whitman RN)135 (Given - Provider: Vargas Whitman [...] RN)2036 (Given - Provider: Shanice Nieves, RASHEL) 0923 (Given - Provider: Vargas hollis RN)144 (Given [...] Nieves RN) 0924 (Given - Provider: Vargas hollis, RASHEL)144 (Given - Provider: Vargas Whitman, RASHEL) 400 mg, Oral, TID, First dose (after [...] First dose on 06/21/22 at 0925, Until Dis continued normal saline flush 0.9 % solution 10 mL 075 (Given - Provider: Vargas Whitman RN)1946 (Given - Provider: Elva Adamson, RASHEL) 08 (Given - Provider: Vargas Whitman, RASHEL)2036 (Given - Provider: Shanice Nieves RN) 09 (Given - Provider: Vargas hollis RN) 10 mL, IV Push, Q12H, First dose on Thu06/17/22 at 0800, Until D iscontinued polyethylene glycol 3350 (MIRALAX;GLYCOLAX) packet 17 g 0753 (Not Given (removes Due time) - Provider: Vargas Whitman RN - Reason: Patient refused)1946 (Given - Provider: Elva Adamosn RN) 826 (Given - Provider: Vargas Whitman RN)2036 (Not Given (removes Due time) - Provider: Shanice Nieves RN - Reason: Patient refused - Comment: BM x 3 today) 09 (Given - Provider: Vargas Whitman, RASHEL) 17 g, Oral, BID, First dose (after [...] Vargas Whitman RN)1629 (Given - Provider: Tamera Shaw, RASHEL)2036 (Given - Provider: Shanice Nieves RN) 0923 (Given - Provider: Vargas hollis RN)1200 (Given - Provider: Vargas Whitman RN)1700 (Due) 2 g, Oral, QID, First dose on Cathy 06/26/22 at 1330, Until Discont inued tamsulosin (FLOMAX) capsule 0.4 mg 0752 (Given - Provi akiko: Vargas Whitman RN) 0827 (Given - Provider: Vargas Whitman RN) 09 [...] Peace Waite RN)0657 (Given - Provider: Peace Waite RN)1210 (Given - Provider: Vargas Whitman RN)1529 (Given - Provider: Elva Adamson, RASHEL)1947 (Given - Provider: Elva Adamson, RASHEL) 0559 (Given - Provider: Shanice Nieves RN) 0.5 mg, IV Push, Q4H PRN, Starting on Mo n 06/16/22 at 0944, Until [place]athy 06/26/22 at 1038, Severe Pain (Use First) hydrOXYzine (ATARAX;VISTARIL) tablet 25-50 mg 0442 (Gi anish - Provider: Natalia Romero, RN)0935 (Given - Provider: Vargas Whitman, RASHEL)1356 (Given - Provider: Vargas Whitman RN)2152 (Given - Provider: Elva Adamson RN) 0250 (Given - Provider: Shanice Nieves RN)0957 (Given - Provider: Vargas Whitman, RASHEL)1352 (Given - Provider: Vargas Whitman, RASHEL)1755 (Given - Provider: Tamera Shaw RN) 0051 (Given - Provider: Shanice monte RN)0501 (Given - Provider: Shanice Nieves RN)0924 (Given - Provider: Vargas Whitman, RASHLE) 25-50 mg, Oral, Q4H PRN, Starting on 06/16/22 at 0944, Until Thu06/27/22 at 2104, pain adjunct (give with opioid) melatonin tablet 3 mg 2151 (Given - Provider: Elva Adamson RN) 3 mg, Oral, BEDTIME PRN, Starting on 06/23/22 at 2208, Until Thu06/27/22 at 2104, Sleep [...] 0221 (Given - Pr ovider: Peace Waite, RASHEL)0524 (Given - Provider: Roger Fall, RASHEL)0936 (Given - Provider: Vargas Whitman, RASHEL)1355 (Given - Provider: Vargas Whitman, RN)1747 (Given - Provider: Elva Adamson, RASHEL) 0249 [...]
--- OUTSIDE RECORDS SUMMARY | 2022-07-23 20:34 | XMS_ITS | Encounter Summary ---
:[address] [facility] Address [address] [place] [address] Phone Care Team Providers Name Role Phone Lore Au You PT Unavailable Encounter Details Date Type Department Care Team Description 06/24/2022 Documentation Only [facility] Anger Control Counselor Anger Control Counselor, Services Services [address] [place] [address] Social History Tobacco Use Types Packs/Day Years [...] Appointment RADIOLOGY Patrice Hollins MD [address] [phone] Scheduled 1, [facility] [address] [place] [address] 07/25/2022 Office Visit NEUROSURGERY Briana Kaplan, PA [facility] [address] [place] [address] Scheduled 1, [place] [address] [place] [address] 07/25/2022 Appointment PHYSICAL MEDICINE AND REHAB Lore Aguilar, PT Scheduled [address] [place] [phone] (Wo rk) 08/05/2022 Appointment ORTHOPEDICS 1, [facility] Scheduled [address] [place] [address] 08/05/2022 Appointment RADIOLOGY Roosevelt Brown MD [address] [place] [address] Scheduled 1, [facility] [address] [place] [address] 08/05/2022 Appointment RADIOLOGY Roosevelt Brown MD [address] [place] [address] Scheduled 1, [facility] [address] [place] [address] 08/05/2022 Office Visit ORTHOPEDICS Roosevelt Brown MD [address] [place] [phone] Scheduled 1, [facility] [address] [place] [address] 08/20/2022 Office Visit Interventional Radiology Provider, Int Ra d Scheduled 1, [facility] [address] [place] [address] 08/21/2022 Office Visit MEDICINE Naomie Bal MBBS [address] [place] [address] Scheduled 1, [facility] [address] [place] [address] documented as of this encounter Visit Diagnoses Not on filedocumented in this encounter Care Teams Pre Billing Specialist Relationship Specialty Start Date End Date Lore Au, PT Physical Therapist Physical Therapy 07/09/22 [address] [place] [address] documented as of this encounter
[2022-07-23 20:35] LABS: Basophils Percent Auto 0.1 % (0.0-3.0); Creatinine* 0.5 mg/dL (0.5-1.5); Eosinophils Percent Auto 0.6 % (0.0-7.0); Est. Creatinine Clearance* 162.29; Estimated Glomerular Filt Rate 128 ml/min; Hematocrit 35.7 % (37.0-53.0); Lymphocytes Percent Auto 24.1 % (20-44); Mean Corpuscular HGB Conc 35 gm/dL (32-36); Mean Corpuscular Hemoglobin 30 pg (26-34); Mean Corpuscular Volume 86 fL (80-100); Monocytes Percent Auto 5.3 % (0.0-11.0); Neutrophils Percent Auto 69.4 % (42.0-72.0); Platelet Count* 273 K/uL (140-440); Slide Review Reflex No
--- OUTSIDE RECORDS SUMMARY | 2022-07-23 20:35 | XMS_ITS | Encounter Summary ---
:1975 Author Organization [facility] Address [address] [place] [address] Phone Care Team Providers Name Role Phone [...] Appointment RADIOLOGY Patrice Hollins MD [address] [phone] Scheduled 1, [facility] [address] [place] [address] 07/25/2022 Office Visit NEUROSURGERY Briana Kaplan PA -C [address] [place] [phone] Scheduled 1, [facility] [address] [place] [address] 07/25/2022 Appointment PHYSICAL MEDICINE AND REHAB Lore Aguilar, PT Scheduled [address] [place] [address] (Wo rk) 08/05/2022 Appointment ORTHOPEDICS 1, [facility] Scheduled [address] [place] [address] 08/05/2022 Appointment RADIOLOGY Roosevelt Brown MD [address] [place] [phone] Scheduled 1, [place] [address] [place] [address] 08/05/2022 Appointment RADIOLOGY Roosevelt Brown MD [address] [place] [address] Scheduled 1, [place] [address] [place] [address] 08/05/2022 Office Visit ORTHOPEDICS Roosevelt Brown MD [address] [place] [address] Scheduled 1, [facility] [address] [place] [address] 08/20/2022 Office Visit Interventional Radiology Provider, Hesham haq Scheduled 1, [facility] [address] [place] [address] 08/21/2022 Office Visit MEDICINE Naomie Bal MBBS [address] [place] [address] Scheduled 1, [place] [address] [place] [address] documented as of this encounter Procedures Procedure [...] on filedocumented in this encounter Care Teams Street Cleaning Equipment Operator Relationship Specialty Start Date End Date Lore Au, PT Physical Therapist Physical Therapy 07/09/22 [address] [place] [address] documented as of this encounter
--- OUTSIDE RECORDS SUMMARY | 2022-07-23 20:35 | XMS_ITS | Encounter Summary ---
:1975 Author Organization [facility] Address [address] [place] [address] Phone Care Team Providers Name Role Phone [...] 07/25/2022 Appointment RADIOLOGY Patrice Hollins MD [address] [phone] Scheduled 1, [place] [address] [place] [address] 07/25/2022 Office Visit NEUROSURGERY Briana Kaplan PA -C [address] [place] [address] Scheduled 1, [place] [address] [place] [address] 07/25/2022 Appointment PHYSICAL MEDICINE AND REHAB Lore Aguilar, PT Scheduled [address] [place] [address] (Wo rk) 08/05/2022 Appointment ORTHOPEDICS 1, [place] Scheduled [address] [place] [address] 08/05/2022 Appointment RADIOLOGY Roosevelt Brown MD [address] [place] [phone] Scheduled 1, [place] [address] [place] [address] 08/05/2022 Appointment RADIOLOGY Roosevelt Brown MD [address] [place] [phone] Scheduled 1, [place] [address] [place] [address] 08/05/2022 Office Visit ORTHOPEDICS Roosevelt Brown MD [address] [place] [address] Scheduled 1, [place] [address] [place] [address] 08/20/2022 Office Visit Interventional Radiology Provider, Hesham haq Scheduled 1, [place] [address] [place] [address] 08/21/2022 Office Visit MEDICINE Naomie Bal MBBS [address] [place] [address] Scheduled 1, [place] [address] [place] [address] documented as of this encounter Procedures Procedure [...] on filedocumented in this encounter Care Teams Front End Web Developer Relationship Specialty Start Date End Date Lore Au, PT Physical Therapist Physical Therapy 07/09/22 [address] [place] [address] documented as of this encounter
--- OUTSIDE RECORDS SUMMARY | 2022-07-23 20:35 | XMS_ITS | Encounter Summary ---
:1975 Author Organization [facility] Address [address] [facility] [place] [address] Phone Care Team Providers Name Role Phone Unavailable Primary Care Provider Unavailable Reason for Visit Reason Comments Fall Auth/Cert (Routine) Specialty Diagnoses / Procedures Referred By Contact Refer red To Contact SURGERY Diagnoses Fall, initial encounter Erasmo Gonzalez MD [address] [facility] [address] [place], [place] [address] [address] [place] [address] Phone: Fax: Referral ID Status Reason Start Date Expiration Date Visits Requ ested Visits Authorized [id number] 1 1 Encounter Details Date Type Department Care Team Description 06/24/2022 Surgery OR P4 Roosevelt Brown OPEN REDUCTION INTERNAL 701 Nia Ravi MD FIXATION RIGHT SI JOINT P4.[address] [place], [place] [address] [place], [place] [phone] [id number] Social History Tobacco Use Types Packs/Day Years [...] No focal deficits appreciated on gross examination Bag Loader Needed: yes- Algerian [35] PLANNED DISCHARGE ORDERS: Suture/Paulette: Location right [...] address): ___ Patient Address: C/o Shawnee Bolivar [address] [place] [address] Question Response Notes Effective date for equipment/supply 06/25/2022 Medical necessity for order (qualifying diagnosis) sacral fracture, right acetabular fracture, T12 compression fracture, right distal radius fracture Length of time equipment/supply needed 12 months Monthly quantity . Vendor Information [employer]; ph: [phone], fx: [phone] XR SPINE THORACOLUMBAR 2 VIEW Question Response [...] Yes Antitippers Yes Vendor Information [employer]; ph: [phone], fx: [phone] DME JUSTIFICATION OF NEED FOR EXTENDED TUB [...] PLEASE CALL the Patient Access Center at [phone] to schedule the following appointment(s) Question Response Notes Specify time frame 1 Month Reason for Visit? Evaluate need for continued IVC Filtration Provider Type? Any available Provider Clinic Location? [facility] Clin[facility] Specialty: Interventional Radiology Schedule Appointment - [facility] Ortho Cl Order Notes PLEASE CALL the Patient Access Center at [phone] to schedule the following appointment(s) Question Response Notes Specify time frame 2 Weeks Reason for Visit? Post op follow up, hospitalization. S/p ORIF right SI joint Provider Type? Any available Provider Clinic Location? [facility] Specialty: Orthopedics Schedule Appointment in Neurosurgery- [facility] Clinic Order Notes Schedule Appointment in Neurosurgery Clinic - [facility] Neurosurgery Clinic Direct Line: [phone] [place] [address] Clinic Hours: 8 AM - 4:30 PM M-F Question Response Notes Specify time frame 6 Weeks Reason for Visit? Follow up T12 and lumbar fractures Provider Type? [facility] Clinic Location? [facility] Specialty: Neurosurgery Imaging? Yes UR XR prior [...] your doctor or see the [facility]. When should I be concerned? Order Notes [...] 4 PM): Call the Radiology department at [phone] After hours or on Holidays: Call the [facility] mat machine operator . Ask the mat machine operator to page the Interventional Radiologist showroom salesperson. IF: -- hives or new itching the [...] you can dry it with a hair spinning machine operator set to cool/warm; call the Orthopaedic Clinic at [phone] if the cast remains soft. -- Cover [...] you can dry it with a hair spinning machine operator set to cool/warm; call the Orthopaedic Clinic at [phone] if the cast remains soft. -- Cover [...] -- Read all labels for prescription and Owih-rum-tfxcqcv medicines. Ask the pharmacist if your prescription [...] taking these medications acetaminophen 325 mg tablet [place] 3 tabletas (975 mg) por la boca [...] (5 mg) by mouth 3 times daily. [place] 1 tableta (5 mg) por la boca [...] (400 mg) by mouth 3 times daily. [place] 1 capsula (400 mg) por la boca 3 veces al porsche. hydrOXYzine pamoate 25 mg capsule Commonly known as: VISTARIL Take 1-2 capsules (25-50 mg) by mouth every 4 hours as needed (pain adjunct (give with opioid)).[place] 1-2 c??psulas (25-50 mg) por v??a oral cada 4 horas seg??n sea necesario (complemento para el dolor (administrar con opioide)). melatonin 3 mg tablet Take 1 tablet (3 mg) by mouth at bedtime as needed for Sleep. [place] 1 tableta (3 mg) por la boca a lahora de acostrase. oxyCODONE 5 mg tablet Commonly known as: ROXICODONE [place] 1 tableta (5 mg) por la boca cada 4 horas rock sea necesario para el dolor. (Take 1 tablet (5 mg) by mouth every 4 hours as needed for Pain.) polyethylene glycol 3350 17 gm/scoop powder Commonly known as: MIRALAX/GLUCOLAX Take 17 g by mouth twice daily.Take 1 capful to 17 gm cuate mixed with full glass of water twice every day as directed.[place] 17 g por v??a oral dos veces al d??a. [place] 1 tap??n hasta la minerva de 17 g mezclado con un vaso lleno de agua dos veces al d??a seg??n las indicaciones. * Xarelto 15 mg tablet Generic drug: rivaroxaban Take 1 tablet (15 mg) by mouth twice daily with meals for 21 days. Indications: Blood Clot in a DeepVein. [place] 1 tableta (15 mg) por v??a oral dos veces al d??a con las comidas jennifer 21 d??as. 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 Start taking on: June 29, 2022 * rivaroxaban 20 mg tablet Commonly known as: XARELTO Take 1 tablet (20 mg) by mouth daily with evening meal. Indications: Blood Clot in a Deep Vein.([place] 1 tableta (20 mg) por v??a oral diariamente con la evonne. 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 [place] 1 tableta por la boca 2 veces al porsche. sodium chloride 1 gm Tabs Take 2 tablets (2 g) by mouth 4 times daily. TOME DOS TABLETAS ORALMENTE 4 VECES AL PORSCHE tamsulosin 0.4 mg Capsule Commonly known as: FLOMAX Take 1 capsule (0.4 mg) by mouth daily after meal.Take 30 minutes after same meal each day. Do NOT crush or chew.[place] 1 c??psula (0,4 mg) por v??a oral todos los d??as despu??s de ethan comida. [place] 30 minutos despu??s de la misma comida [...] [facility] Discharge Pharmacy - [place] [address] Hours: 27/04 acetaminophen 325 mg tablet bisacodyl [...] me are documented. Patrice Hollins M.D., F.A.C.S. [facility] Department of Surgery documented in this [...] Self Cares with a TLSO A TLSO (Etwdeot-Fmqvw-Bupqnv-Orthosis) is a brace designed to immobilize your [...] determine what you need) Extended tub bench Analytics Developer Long Handled Sponge Raised Toilet Seat with arms Remember : - No weight on your right arm/hand, no pulling and no pushing with right hand. - No weight on right leg - Pivot transfer ONLY on left leg - No walking - Slow down, think before moving Discharge Instr - Speech Language PathologyTheodora Serrano OTR/L - 06/27/2022 8:50 AM CDT {BEHAVIORAL THERAPIST Discharge Instructions:[id number]} AttachmentsThe following attachments cannot be sent through Care Everywhere.Cast Care (Algerian)Forearm and Wrist Fractures ED (Algerian)Forearm Fracture Discharge Instructions (Algerian)Radius Fracture (Algerian)Radius Fracture Discharge Instructions (Algerian)Pelvic Fracture Discharge Instructions (Algerian) Pelvic Fracture (Algerian)Fractures (Algerian)General Trauma Discharge Instructions (Algerian)Type 2 Diabetes Discharge Instructions (Algerian)documented in this encounter Medications at Time of Discharge Medication Sig Dispensed Refills Start Date End Date acetaminophen 325 mg Take 3 tablets (975 120 tablet 0 2021 oral tablet mg) by mouth 3 times daily. hydrOXYzine pamoate Take 1-2 capsules 120 capsule 0 06/26/20 (VISTARIL) 25 mg oral (25-50 mg) by mouth capsule every 4 hours as needed (pain adjunct (give with opioid)).[place] 1-2 c??psulas (25-50 mg) por v??a oral [...] oral by mouth 3 times TABS daily. [place] 1 tableta (5 mg) por la boca 3 veces al porsche. polyethylene glycol Take 17 g by mouth 510 g 0 06/26/20 3350 twice daily.Take 1 (MIRALAX/GLUCOLAX) 17 capful to 17 gm gm/scoop oral powder cuate mixed with full glass of water twice every day as directed.[place] 17 g por v??a oral dos veces al d??a. [place] 1 tap??n hasta la minerva de 17 g mezclado con un vaso lleno de agua dos veces al d??a seg??n las indicaciones. sennosides-docusate Take 1 tablet by 40 each 0 06/26/2022 sodium (STOOL mouth twice daily. SOFTENER/LAXATIVE) [place] 1 tableta por 8.6-50 mg oral tablet la boca 2 veces al porsche. GABApentin (NEURONTIN) Take 1 capsule (400 120 capsule 0 400 mg oral capsule mg) by mouth 3 times daily. [place] 1 capsula (400 mg) por la boca 3 veces al porsche. tamsulosin (FLOMAX) Take 1 capsule (0.4 10 capsule 0 022 0.4 mg oral capsule mg) by mouth daily after meal.Take 30 minutes after same meal each day. Do NOT crush or chew.[place] 1 c??psula (0,4 mg) por v??a oral todos los d??as despu??s de ethan comida. [place] 30 minutos despu??s de la misma comida todos los d??as. No triture ni mastique. melatonin 3 mg oral Take 1 tablet (3 mg) 20 tablet 0 2021 tablet by mouth at bedtime as needed for Sleep. [place] 1 tableta (3 mg) por la boca [...] Thrombosis Indications: Blood Clot in a Deep Vein.([place] 1 tableta (20 mg) por v??a oral diariamente con la group captain. Indicaciones: co??gulo de figueroa en ethan vena [...] Indications: Blood Clot in a Deep Vein. [place] 1 tableta (15 mg) por v??a oral [...] w/ Precautions?: Yes (with some occasional reminders) Bag Loader Used: No, certified bilingual staff SUBJECTIVE: Cooperative [...] assisting with supervision and 1-2 tips from real estate underwriter Upper Body Dressing Techniques & Equipment: 1 [...] Functional activity: 15 minutes CLAUDIO Cordero Pager: [facility] OT Department Neal Phillips, FINANCIAL ASSISTANT - 06/27/2022 9:42 AM CDT Problem: Decreased Transfer Skills Goal: Patient will transfer supine to/from sit Description: Patient will transfer supine to/from sit with (6) Modified [place] in the TLSO w/othe use of his [...] (Numeric): 4 (improved) Participation Significantly Limited?: No O:Bag Loader Used: Yes, [facility] aerial photograph interpreter Mental Status Mental Status: Alert;Cooperative;Follows 3 step [...] own equipment. Neal Phillips PTA 06/27/2022 Pager: [facility] PT Dept Joce Villareal MD - 06/27/2022 [...] Arm Pulse: 71 84 107 Resp: 18 18 17 Temp: 36.3 ??C (97.4 ??F) [...] - ok for L LE pivot transfer) Bag Loader Used: No, certified bilingual staff SUBJECTIVE: Cooperative [...] assisting with supervision and 1-2 tips from real estate underwriter Lower Body Dressing: Maximal assist (25% patient [...] Functional Activity 15 minutes CLAUDIO Cordero Pager: [facility] OT Department Patrice Hollins MD - 06/26/2022 [...] vital signs normal. Euvolemic on exam. Asymptomatic. Ptonxdee4S LR post procedurally 06/24. Has not received [...] Hollins MD, 06/30/2022 9:13 AM Neal Phillips, FINANCIAL ASSISTANT - 06/26/2022 9:03 AM CDT Problem: Decreased Transfer Skills Goal: Patient will transfer supine to/from sit Description: Patient will transfer supine to/from sit with (6) Modified [place] in the TLSO w/othe use of his [...] (Numeric): 4 (improved) Participation Significantly Limited?: No O:Bag Loader Used: Yes, [facility] aerial photograph interpreter Mental Status Mental Status: Alert;Cooperative;Follows 3 step [...] set-up and management. Increase tolerance for sitting. FINANCIAL ASSISTANT Appropriate: Yes Neal Phillips, SKYLER 06/26/2022 Pager: [facility] PT Dept Chintan Valadez MD - 06/26/2022 [...] recommended * (when cleared to ambulate) (06/25/22 1359) Equipment Status: Team notified of equipment recommendation (06/25/22 1354) PT Equipment Recommended: Manual wheelchair (06/25/22 4826) S: I have a little more pain today compared to yesterday, but I can still get up. Pain Pain Rating With Activity (Numeric): 7 (low back on R side when sitting up in the wheelchair) Participation Significantly Limited?: No Intervention: Other (assisted with transferring pt back to bed) O:Bag Loader Used: Yes, [facility] aerial photograph interpreter Mental Status Mental Status: Alert;Cooperative;Follows 3 step [...] by PT. She also assisted pt with zdkand-kt-ftr transfer. Pt required just standby assist for [...] with assisting with wheelchair set-up and management. FINANCIAL ASSISTANT Appropriate: Yes Alize Stevens, PT 06/25/2022 Pager: [facility] PT Dept Problem: Decreased Transfer Skills Goal: Patient will transfer supine to/from sit Description: Patient will transfer supine to/from sit with (6) Modified [place] in the TLSO w/othe use of his [...] be able to roll with (6) Modified [place] using log roll technique w/o the use of his RUE while maintaining both spinal and WB restrictions in order to demonstrate improved function and D/C by 06/28. Outcome: Met Theodora Serrano OTR/Kira - 06/25/2022 10:56 AM CDT Occupational [...] - ok for L LE pivot transfer) Bag Loader Used: No, certified bilingual staff SUBJECTIVE: Cooperative [...] assisting with supervision and 1-2 tips from real estate underwriter Lower Body Dressing: Maximal assist (25% patient [...] HGB 10.1 (L) 06/22/2022524 HGB 9.0 (L) 06/20/202257 PLT 527 (H) 06/24/2022542 PLT 378 06/22/2022524 PLT 266 06/20/2022 0557 CR 0.62 (L) [...] LYMPHAB 2.74 06/15/2022 1920 MONOABSNO 0.67 06/15/2022 1920 EOSNUMB 0.20 06/15/2022 192 BASO 0.03 06/15/20221919 Lab Results Component Value Date/Time PT 13.9 [...] (06/24/22 1100) PT Equipment Recommended: Manual wheelchair (06/24/221099) S: Pt reports It feels good to be out of the room and sitting in a chair. Pain Pain Rating With Activity (Numeric): 7 (back) Participation Significantly Limited?: No Intervention: Positioning;Other (RN notified pt received pain meds about 30 minutes prior to arrival) O: Bag Loader Used: No, certified bilingual staff Name or Reference Number (phone): [id number] Mental Status Mental Status: Alert;Cooperative;Follows 1 step [...] of the above Positioning: Pt transferred to [facility] in prep for surgery at end [...] have family re-demo WC part management . FINANCIAL ASSISTANT Appropriate: Yes Charlene Lindo, PT 06/24/2022 Pager: [facility] Dept Problem: Decreased Transfer Skills Goal: Patient will roll Description: Patient will be able to roll with (6) Modified [place] using log roll technique w/o the use of his RUE while maintaining both spinal and WB restrictions in order to demonstrate improved function and D/C by 9/24. Outcome: In progress Goal: Patient will transfer supine to/from sit Description: Patient will transfer supine to/from sit with (6) Modified [place] in the TLSO w/othe use of his [...] onlyElevation: RUE) (06/22/221199) Complies w/ Weight Bearing?: No (Needs reminders for R UE NWB (ok through elbow) and NWB on B LE - ok for L LE pivot transfer) Bag Loader Used: No, certified bilingual staff SUBJECTIVE: Cooperative [...] assisting with supervision and 1-2 tips from real estate underwriter Upper Body Dressing Techniques & Equipment: TLSO;Family [...] is only present while pushing against something. [place] nauseous upon waking, dry heaved. Able to [...] me are documented. Patrice Hollins M.D., F.A.C.S. [facility] Department of Surgery Korin Garcia MD [...] for OR today. Hopefully this afternoon or rivet tosser - Plan to convert right short arm [...] control on orals, and medical stability. S: HORVATH, VSS, RA. Pain well controlled, hopeful to go to the OR today. No new concerns. O: Vitals: 06/23/22 1900 06/24/22 0023 06/24/22 0351 06/24/22 0353 BP: 122/84 136/84 135/91 131/89 Cuff Location: Right Arm Right Arm Right Arm Right Arm Pulse: 91 64 69 96 Resp: Temp: 36.4 ??C (97.6 ??F) 36.6 ??C [...] 06/23/2022 12:50 PM CDT Problem: Loss of [place] With ADLs, Risk for Goal: Patient-specific goals [...] push/pull/place weight in RUE- ok through elbow) Bag Loader Used: Yes, agency or phone aerial photograph interpreter ([facility] phone/video aerial photograph interpreter) SUBJECTIVE: I'm getting really warm. Can I [...] assisting with supervision and 1-2 tips from real estate underwriter Upper Body Dressing Techniques & Equipment: TLSO;Family [...] care/Home mgmt/ADL: 30 minutes JACKELIN Fernandez/Kira Pager: [facility] OT Department Reshma Hackett OTR/Kira, 06/23/2022 4:09 [...] by me aredocumented. Patrice Hollins M.D., YolandeS. [facility] Department of Surgery Linda Lei MD [...] [place], [place] - 06/20/2022 10:26 AM CDT Daniaey O&P Patient was seen to check fit of TLSO. Patient reports TLSO is fitting well with no reported discomfort. He and his were instructed on proper wear and care. Please call with any questions or concerns. Aman Pichardo VEHICLE TRIMMER Danette O&P [phone] Linda Au MD - 06/20/2022 5:36 AM [...] Per nursing report, patient was bladder scanned [id number] retained, so he underwent straight catheterization. He [...] 12 06/19/2022 0515 CR 0.61 (L) 06/19/2022 05 CA 8.4 (L) 06/19/2022 0515 CBC Lab Results Component Value Date/Time WBC 4.92 06/19/2022 0515 RBC 3.30 (L) 06/19/2022 0515 HGB 9.4 (L) 06/19/2022 05 HCT 28.0 (L) 06/19/2022 05 PLT 227 06/19/2022 0515 RADIOLOGY: XR R [...] IN NOTE D: Patient transferred in to [facility] from PACU at 1950. Patient condition on arrival: stable. Patient Belonging 06/16/2022 0110 Patient or family informed of Patient Valuables and Belongings Policy (#[id number]): Due to patient condition, [facility] [...] me are documented. Patrice Hollins M.D., Dyllan. [facility] Department of Surgery Alpesh Live MD [...] None Transportation Used for Discharge: family will brass pickler Safety Concerns: None Behavioral Health Concerns: None Primary Insurance: N/A Secondary Insurance: N/A PLAN Plan/Interventions Discharge Plan: Home Risks for Readmission: None SUMMARY Patient would like to DC home where could help. He is uninsured. He has received 3 doses of Covid vaccine manager of radiology will continue to follow until DC Patrice [...] by me aredocumented. Patrice Hollins M.D., F.A.C.S. [facility] Department of Surgery Resident: Linda Au [...] OR during this hospital admission S: HORVATH, VSGwendolyn, RA. Resting comfortably this am. O: Vitals: [...] 06/15/2022 192 HGB 13.7 06/15/2022 1920 PLT 181 06/17/2022 [...] return to fit when able. Aman Thurow VEHICLE TRIMMER Juanklgeorgette O&P [phone] Narciso [place] - 06/16/2022 12:08 PM [...] today for fitting and delivery. Aman Thurow VEHICLE TRIMMER Winkley O&P [phone] Edna Ibrahim MDIV - 06/16/2022 9:36 AM CDT SPIRITUAL CARE VISIT SUMMARY Kesha Hill : 1975 Sex: male LOS: 0 days Reason for visit: Referral Assessment: Pt/family uncertain/anxious/frustrated Intervention: Engage theological concerns;Compassionate support;Facilitate communication;Lead/support spiritual rituals Outcome: Situation assessed;Gratitude expressed;Pt/family report increased sense of peace/spiritual well-being;Stress observed as lessened;Ritual provided Notes: Provided supportive presence for Algerian speaking, Anguillan pt (with use of translator/interpreter). Pt was in pain, and consented to healing touch being provided. He indicated that this practice assisted with his pain. Pt spoke about his recent move to [place], and how he likes it there, and likes living with his Gloria there. Pt was able to speak with the nurse about his pain, and communicate that to her. He welcomed prayer, which this provider offered in Algerian. Edna has completed levels one and two of Healing Touch and level one of Reiki. This is an energy based, gentle (limited) touch healing modality, and this patient or patient's family consented to this practice. Plan: Spiritual Care Team is available to support patient and family as needed via pager [phone]. Edna Ibrahim MDIV, 06/16/2022 9:36 AM Pager: [phone] Oanh Moore MD - 06/16/2022 6:02 AM [...] elbow flex/ext. 5/5 wrist flex/ext. 5/5 hand deck engineer. LUE: 5/5 shoulder abduction. 5/5 elbow flex/ext. 5/5 wrist flex/ext. 5/5 hand deck engineer. Lower Extremities: RLE: 0/5 hip flexion. 0/5 [...] Narvaez MD - 06/16/2022 12:00 [place] [address] [facility]#: [id number] PATIENT: KESHA HILL : 1975 DATE DICTATED: 06/16/2022 SURGERY STAFF DAILY PROGRESS NOTE DATE OF SERVICE: 06/16/2022 I saw and evaluated the patient. I discussed management with residents, GAMBLING CASHIER, and PAs on the Neurosurgery team and [...] MD Staff Physician Neurosurgery Service Received in [facility]ish [facility]: 06/16/2022 18:59:09 M: /[id number] TB/MODL Patrice Hollins MD - 06/15/2022 7:18 PM CDT Trauma Staff I was notified via the trauma pager at: [phone] I evaluated/examined this patient at: aRRIVAL The patient arrived at: 06/15/2022 7:15 PM I was pre-notified: Yes Switchboard. Trauma Level: Tier 2 Staff Summary (full note will be with the resident H&P): Fell from [facility], 30 ft. Will plan head/c-spine/chest/abd/pelvis [...] file Social History Narrative Patient lives in [place], [place]. He is single and employed. Family [...] Lab Results Component Value Date/Time NA 140 06/15/2022 1920 K 3.6 06/15/20221919 CHLORIDE 109 (H) 06/15/2022 192 GLU 186 (H) 06/15/20221919 CR 1.00 06/15/20221919 [...] NPO until final reads on radiography Consult BEHAVIORAL THERAPIST and keep strict NPO if BEHAVIORAL THERAPIST consult not indicated at this time PT/OT [...] me are documented. Patrice Hollins M.D., F.A.C.S. [facility] Department of Surgery documented in this [...] Hill at 1215 Patient transported back to [facility] via Bed. Accompanied by Tech and [...] John Leon MD Orthopaedic Surgery, PGY3 Pager: [phone] documented in this encounter Consult Notes Sultana Nuñez, PharmD - 06/26/2022 4:10 PM CDTAssociated Order(s): DISCHARGE MED REC FINAL REVIEW BY PHARMACY PHARMACY DISCHARGE NOTE Kesha Hill : 1975 Sex: male Pharmacy service was consulted for review of patient's discharge medications. Planned discharge medications are: Medication List Medications Indications acetaminophen 325 mg tablet [place] 3 tabletas (975 mg) por la boca [...] (5 mg) by mouth 3 times daily. [place] 1 tableta (5 mg) por la boca [...] (400 mg) by mouth 3 times daily. [place] 1 capsula (400 mg) por la boca 3 veces al porsche. glipiZIDE XL 10 mg extended release tablet Generic drug: glipiZIDE XL Take 1 tablet (10 mg) by mouth daily. Indications: Type 2 Diabetes Indications: Type 2 Diabetes hydrOXYzine pamoate 25 mg capsule Commonly known as: VISTARIL Take 1-2 capsules (25-50 mg) by mouth every 4 hours as needed (pain adjunct (give with opioid)).[place] 1-2 c??psulas (25-50 mg) por v??a oral cada 4 horas seg??n sea necesario (complemento para el dolor (administrar con opioide)). melatonin 3 mg tablet Take 1 tablet (3 mg) by mouth at bedtime as needed for Sleep. [place] 1 tableta (3 mg) por la boca a lahora de acostrase. metFORMIN 1000 mg tablet Commonly known as: GLUCOPHAGE Take 1 tablet (1,000 mg) by mouth twice daily with meals. Indications: Type 2 Diabetes Indications: Type 2 Diabetes oxyCODONE 5 mg tablet Commonly known as: ROXICODONE [place] 1 o 2 tabletas por la boca cada 4 horas rock sea necesario para el dolor. (Take 1-2 tablets (5-10 mg) by mouth every 4 hours as needed for Pain.) polyethylene glycol 3350 17 gm/scoop powder Commonly known as: MIRALAX/GLUCOLAX Take 17 g by mouth twice daily.Take 1 capful to 17 gm cuate mixed with full glass of water twice every day as directed.[place] 17 g por v??a oral dos veces al d??a. [place] 1 tap??n hasta la minerva de 17 g mezclado con un vaso lleno de agua dos veces al d??a seg??n las indicaciones. rivaroxaban 15 mg tablet Commonly known as: XARELTO Take 1 tablet (15 mg) by mouth twice daily with meals for 21 days. Indications: Blood Clot in a DeepVein. [place] 1 tableta (15 mg) por v??a oral dos veces al d??a con las comidas jennifer 21 d??as. 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 Start taking on: June 29, 2022 Indications: Blood Clot in a Deep Vein rivaroxaban 20 mg tablet Commonly known as: XARELTO Take 1 tablet (20 mg) by mouth daily with evening meal. Indications: Blood Clot in a Deep Vein.([place] 1 tableta (20 mg) por v??a oral diariamente con la evonne. 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 Start taking on: July 20, 2022 Indications: Blood Clot in a Deep Vein sennosides-docusate sodium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 100 [facility] mg/dL CAMPUS - POINT OF CARE Specimen (Source) Anatomical Collection Method Collection Time Re ceived Time Location / / Volume Laterality Blood 06/24/2022 10:53 AM CDT Kingston Castañeda MD LABORATORY Performing Organization Address City/[facility]/ZIP Code Phon e Number [facility] - POINT OF CARE [address] [place] [address] RED BLOOD CELLS LEUKOCYTE REDUCED ADULT (BLOOD ADMIN) (06/24/2022 8:39 AM CDT) athologist Signature RBC Ready Product [facility] Ready Specimen Anatomical Collection Method Collection Time Receive d Time (Source) Location / / Volume Laterality Other 06/24/2022 8:39 AM 2 8:39 CDT AM CDT Narrative [facility] - 06/24/2022 8:45 AM CDT 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 Is a signed informed consent on file: Ludwig regan-on file Reason for Transfusion:->Anticipated Blo od Loss for Surgery/Procedure Does patient require irradiated product: No 2 Units Miri Matthew MD BLOOD BANK ORDERABLES (BLOOD ADMIN) Performing Organization Address City/[facility]/ZIP Code Phon e Number [facility] [place] [address] (ABNORMAL) ANTI XA HEPARIN UNFRACTIONATED (06/24/2022 7:04 AM CDT) athologist [facility] Anti XA Hep U 0.12 (L) 0.30 - [facility] 0.70 IU/mL Specimen Anatomical Collection Method Collection Time Receive d Time (Source) Location / / Volume Laterality Blood 06/24/2022 7:04 AM 2 7:35 CDT AM CDT Patrice Hollins MD LABORATORY Performing Organization Address City/[facility]/ZIP Code Phon e Number [facility] [place] [address] (ABNORMAL) POC GLUCOSE (06/24/2022 6:42 AM CDT) athologist Signature POC Glucose 155 (H) 70 - 100 [facility] mg/dL CAMPUS - POINT OF CARE Specimen (Source) Anatomical Collection Method Collection Time Re ceived Time Location / / Volume Laterality Blood 06/24/2022 6:42 AM CDT Kingston Castañeda MD LABORATORY Performing Organization Address City/State/ZIP Code Phon e Number [facility] - POINT OF CARE [address] [place] [phone] MAGNESIUM (06/24/2022 5:43 AM CDT) athologist Signature Magnesium 2.0 1.6 - 2.6 [facility] mg/dL Specimen Anatomical Collection Method Collection Time Receive d Time (Source) Location / / Volume Laterality Blood 06/24/2022 5:43 AM 2 6:18 CDT AM CDT Patrice Hollins MD LABORATORY Performing Organization Address City/[facility]/ZIP [place] [address] (ABNORMAL) PANEL RENAL (06/24/2022 5:43 AM CDT) athologist Signature Sodium 132 (L) 135 - 148 [facility] e Number [facility] [place] [address] (ABNORMAL) CBC WITH PLATELET (06/24/2022 5:43 AM CDT) athologist Signature WBC 11.29 (H) 4.00 - [...] Patrice Hollins MD LABORATORY Performing Organization Address City/[facility]/ZIP Code Phon e Number [facility] [place] [address] (ABNORMAL) ANTI XA HEPARIN UNFRACTIONATED (06/23/2022 10:42 PM CDT) athologist [facility] Anti XA Hep U 0.29 (L) 0.30 - [facility] 0.70 IU/mL Specimen Anatomical Collection Method Collection Time Receive d Time (Source) Location / / Volume Laterality Blood 06/23/2022 10:42 06/23/2022 PM CDT 11:02 PM CDT Patrice Hollins MD LABORATORY Performing Organization Address City/State/ZIP Code Phon e Number [facility] [place] [address] (ABNORMAL) POC GLUCOSE (06/23/2022 8:46 PM CDT) athologist Signature POC Glucose 136 (H) 70 - 100 [facility] mg/dL CAMPUS - POINT OF CARE Specimen (Source) Anatomical Collection Method Collection Time Re ceived Time Location / / Volume Laterality Blood 06/23/2022 8:46 PM CDT Kingston Castañeda MD LABORATORY Performing Organization Address City/[facility]/ZIP Code Phon e Number [facility] - POINT OF CARE [address] [place] [address] (ABNORMAL) POC GLUCOSE (06/23/2022 3:57 PM CDT) athologist Signature POC Glucose 200 (H) 70 - 100 [facility] mg/dL CAMPUS - POINT OF CARE Specimen (Source) Anatomical Collection Method Collection Time Re ceived Time Location / / Volume Laterality Blood 06/23/2022 3:57 PM CDT Kingston Castañeda MD LABORATORY Performing Organization Address City/[facility]/ZIP Code Phon e Number [facility] - POINT OF CARE [address] [place] [address] (ABNORMAL) ANTI XA HEPARIN UNFRACTIONATED (06/23/2022 3:40 PM CDT) Analysis Performed At [facility] logist Time Signature Anti XA Hep U <0.04 (L) 0.30 - [facility] 0.70 IU/mL Specimen Anatomical Collection Method Collection Time Receive d Time (Source) Location / / Volume Laterality Blood 06/23/2022 3:40 PM 3:47 CDT PM CDT Patrice Hollins MD LABORATORY Performing Organization Address City/[facility]/ZIP Code Phon e Number [facility] [place] [address] (ABNORMAL) POC GLUCOSE (06/23/2022 11:08 AM CDT) athologist Signature POC Glucose 125 (H) 70 - 100 [facility] mg/dL CAMPUS - POINT OF CARE Specimen (Source) Anatomical Collection Method Collection Time Re ceived Time Location / / Volume Laterality Blood 06/23/2022 11:08 AM CDT Kingston Castañeda MD LABORATORY Performing Organization Address City/[facility]/ZIP Code Phon e Number [facility] - POINT OF CARE [address] [place] [address] (ABNORMAL) ANTI XA HEPARIN UNFRACTIONATED (06/23/2022 6:25 AM CDT) Analysis Performed At Patho logist Time Signature Anti XA Hep U <0.04 (L) 0.30 - [facility] 0.70 IU/mL Specimen Anatomical Collection Method Collection Time Receive d Time (Source) Location / / Volume Laterality Blood 06/23/2022 6:25 AM 6:34 CDT AM CDT Patrice Hollins MD LABORATORY Performing Organization Address City/[facility] Code Phon e Number [facility] [place] [address] (ABNORMAL) POC GLUCOSE (06/23/2022 6:10 AM CDT) athologist Signature POC Glucose 131 (H) 70 - 100 [facility] mg/dL CAMPUS - POINT OF CARE Specimen (Source) Anatomical Collection Method Collection Time Re ceived Time Location / / Volume Laterality Blood 06/23/2022 6:10 AM CDT Kingston Castañeda MD LABORATORY Performing Organization Address City/[facility] Code Phon e Number [facility] - POINT OF CARE [address] [place] [address] (ABNORMAL) POC GLUCOSE (06/22/2022 9:19 PM CDT) athologist Signature POC Glucose 195 (H) 70 - 100 [facility] mg/dL CAMPUS - POINT OF CARE Specimen (Source) Anatomical Collection Method Collection Time Re ceived Time Location / / Volume Laterality Blood 06/22/2022 9:19 PM CDT Kingston Castañeda MD LABORATORY Performing Organization Address City/[facility]/ZIP Code Phon e Number [facility] - POINT OF CARE [address] [place] [address] (ABNORMAL) POC GLUCOSE (06/22/2022 4:03 PM CDT) athologist Signature POC Glucose 142 (H) 70 - 100 [facility] mg/dL CAMPUS - POINT OF CARE Specimen (Source) Anatomical Collection Method Collection Time Re ceived Time Location / / Volume Laterality Blood 06/22/2022 4:03 PM CDT Kingston Castañeda MD LABORATORY Performing Organization Address City/[facility]/ZIP Code Phon e Number [facility] - POINT OF CARE [address] [place] [address] (ABNORMAL) POC GLUCOSE (06/22/2022 11:07 AM CDT) athologist [facility] POC Glucose 115 (H) 70 - 100 [facility] mg/dL GYPSY - POINT OF CARE Specimen (Source) Anatomical Collection Method Collection Time Re ceived Time Location / / Volume Laterality Blood 06/22/2022 11:07 AM CDT Kingston Castañeda MD LABORATORY Performing Organization Address City/[facility]/ZIP Code Phon e Number [facility] - POINT OF CARE [address] [place] [address] (ABNORMAL) PROTHROMBIN (PT) & INR (06/22/2022 10:53 AM CDT) athologist [facility] PT 13.9 (H) 9.0 - 12.5 [facility] sec INR 1.2 (H) 0.8 - 1.1 [facility] Specimen Anatomical Collection Method Collection Time Receive d Time (Source) Location / / Volume Laterality Blood 06/22/2022 10:53 06/22/2022 AM CDT 11:01 AM CDT Patrice Hollins MD LABORATORY Performing Organization Address City/[facility]/ZIP Code Phon e Number [facility] [place] [address] ANTIBODY SCREEN (06/22/2022 10:53 AM CDT) athologist [facility] Sabrina Screen Negative [facility] Specimen Anatomical Collection Method Collection Time Receive d Time (Source) Location / / Volume Laterality Blood 06/22/2022 10:53 06/22/2022 AM CDT 11:02 AM CDT Patrice Hollins MD LAB TRANSFUSION SERVICES Performing Organization Address City/State/ZIP [place] [address] BLOOD TYPING-ABO/RH (06/22/2022 10:53 AM CDT) athologist [facility] ABORHG A POS [facility] Specimen Anatomical Collection Method Collection Time Receive d Time (Source) Location / / Volume Laterality Blood 06/22/2022 10:53 06/22/2022 AM CDT 11:02 AM CDT Patrice Hollins MD LAB TRANSFUSION SERVICES Performing Organization Address City/[facility]/ZIP Code Phon e Number [facility] [place] [address] COVID-19 SURVEILLANCE (06/22/2022 7:10 AM CDT) [facility] Time Signature COVID-19 Not Detected [...] employee: No Is the patient a Nacho ([facility]) Employee : No Patrice Hollins MD LABORATORY Performing Organization Address City/[facility] Code Phon e Number [facility] [place] [address] (ABNORMAL) POC GLUCOSE (06/22/2022 6:11 AM CDT) athologist Signature POC Glucose 160 (H) 70 - 100 [facility] mg/dL CAMPUS - POINT OF CARE Specimen (Source) Anatomical Collection Method Collection Time Re ceived Time Location / / Volume Laterality Blood 06/22/2022 6:11 AM CDT Kingston Castañeda MD LABORATORY Performing Organization Address City/[facility]/ZIP Code Phon e Number [facility] GYPSY - POINT OF CARE [address] [place] [address] ANTI XA HEPARIN UNFRACTIONATED (06/22/2022 5:25 AM CDT) athologist Signature Anti XA Hep U 0.53 0.30 - 0.70 [facility] IU/mL Specimen Anatomical Collection Method Collection Time Receive d Time (Source) Location / / Volume Laterality Blood 06/22/2022 5:25 AM 9:54 CDT AM CDT Patrice Hollins MD LABORATORY Performing Organization Address City/[facility]/ZIP Code Phon e Number [facility] [place] [address] (ABNORMAL) CBC WITH PLATELET (06/22/2022 5:25 AM CDT) [facility] WBC 10.55 (H) 4.00 - [facility] [...] Patrice Hollins MD LABORATORY Performing Organization Address City/[facility]/ZIP Code Phon e Number [facility] [place] [address] ANTI XA ASSAY LMW HEPARIN (06/22/2022 5:25 AM CDT) [facility] Anti XA LMW 0.63 IU/mL [facility] Comment: Anti Xa Assay LMW Heparin Therapeutic Ra nges: 0.4-1.1 IU/mL for twice daily 1.0-2.0 IU/mL for once daily Specimen Anatomical Collection Method Collection Time Receive d Time (Source) Location / / Volume Laterality Blood 06/22/2022 5:25 AM 2 5:39 CDT AM CDT Patrice Hollins MD LABORATORY Performing Organization Address City/[facility]/ZIP Code Phon e Number [facility] [place] [address] (ABNORMAL) POC GLUCOSE (06/21/2022 9:06 PM CDT) [facility] POC Glucose 158 (H) 70 - 100 [facility] mg/dL CAMPUS - POINT OF CARE Specimen (Source) Anatomical Collection Method Collection Time Re ceived Time Location / / Volume Laterality Blood 06/21/2022 9:06 PM CDT Kingston Castañeda MD LABORATORY Performing Organization Address City/[facility]/ZIP Code Phon e Number [facility] - POINT OF CARE [address] [place] [address] (ABNORMAL) POC GLUCOSE (06/21/2022 4:13 PM CDT) athologist Signature POC Glucose 145 (H) 70 - 100 [facility] mg/dL CAMPUS - POINT OF CARE Specimen (Source) Anatomical Collection Method Collection Time Re ceived Time Location / / Volume Laterality Blood 06/21/2022 4:13 PM CDT Kingston Castañeda MD LABORATORY Performing Organization Address City/[facility]/ZIP Code Phon e Number [facility] - POINT OF CARE [address] [place] [address] (ABNORMAL) POC GLUCOSE (06/21/2022 11:53 AM CDT) athologist Signature POC Glucose 154 (H) 70 - 100 [facility] mg/dL GYPSY - POINT OF CARE Specimen (Source) Anatomical Collection Method Collection Time Re ceived Time Location / / Volume Laterality Blood 06/21/2022 11:53 AM CDT Kingston Castañeda MD LABORATORY Performing Organization Address City/[facility] Code Phon e Number [facility] PO[facility] OF [address] [address] ANTI XA HEPARIN UNFRACTIONATED (06/21/2022 6:19 AM CDT) athologist Signature Anti XA Hep U 0.30 0.30 - 0.70 [facility] IU/mL Specimen Anatomical Collection Method Collection Time Receive d Time (Source) Location / / Volume Laterality Blood 06/21/2022 6:19 AM 6:57 CDT AM CDT Patrice Hollins MD LABORATORY Performing Organization Address City/[facility]/ZIP Code Phon e Number [facility] [place] [address] [place] [address] (ABNORMAL) POC GLUCOSE (06/21/2022 6:17 AM CDT) athologist Signature POC Glucose 141 (H) 70 - 100 [facility] mg/dL CAMPUS - POINT OF CARE Specimen (Source) Anatomical Collection Method Collection Time Re ceived Time Location / / Volume Laterality Blood 06/21/2022 6:17 AM CDT Kingston Castañeda MD LABORATORY Performing Organization Address [facility] Phon e Number [facility] - POINT OF CARE [address] [place] [address] (ABNORMAL) POC GLUCOSE (06/20/2022 8:51 PM CDT) athologist Signature POC Glucose 153 (H) 70 - 100 [facility] mg/dL CAMPUS - POINT OF CARE Specimen (Source) Anatomical Collection Method Collection Time Re ceived Time Location / / Volume Laterality Blood 06/20/2022 8:51 PM CDT Kingston Castañeda MD LABORATORY Performing Organization Address [facility] Phon e Number [facility] GY[facility]Y - POINT OF CARE [address] [place] [address] (ABNORMAL) POC GLUCOSE (06/20/2022 4:10 PM CDT) athologist Signature POC Glucose 133 (H) 70 - 100 [facility] mg/dL CAMPUS - POINT OF CARE Specimen (Source) Anatomical Collection Method Collection Time Re ceived Time Location / / Volume Laterality Blood 06/20/2022 4:10 PM CDT Kingston Castañeda MD LABORATORY Performing Organization Address [facility] Phon e Number [facility] - POINT OF CARE [address] [place] [address] XR ANKLE RIGHT 3 V AP/OBL/LAT* (06/20/2022 [...] Patrice Hollins MD LABORATORY Performing Organization Address [facility] Phon e Number [facility] [place] [address] (ABNORMAL) POC GLUCOSE (06/20/2022 12:06 PM CDT) athologist Signature POC Glucose 143 (H) 70 - 100 [facility] mg/dL CAMPUS - POINT OF CARE Specimen (Source) Anatomical Collection Method Collection Time Re ceived Time Location / / Volume Laterality Blood 06/20/2022 12:06 PM CDT Kingston Castañeda MD LABORATORY Performing Organization Address [facility] Phon e Number [facility] - POINT OF CARE [address] [place] [address] (ABNORMAL) POC GLUCOSE (06/20/2022 6:19 AM CDT) athologist Signature POC Glucose 126 (H) 70 - 100 [facility] mg/dL CAMPUS - POINT OF CARE Specimen (Source) Anatomical Collection Method Collection Time Re ceived Time Location / / Volume Laterality Blood 06/20/2022 6:19 AM CDT Kingston Castañeda MD LABORATORY Performing Organization Address [facility] Code Phon e Number [facility] - POINT OF CARE [address] [place] [address] ANTI XA HEPARIN UNFRACTIONATED (06/20/2022 5:57 AM CDT) athologist Signature Anti XA Hep U 0.42 0.30 - 0.70 [facility] IU/mL Specimen Anatomical Collection Method Collection Time Receive d Time (Source) Location / / Volume Laterality Blood 06/20/2022 5:57 AM 2 6:19 CDT AM CDT Patrice Hollins MD LABORATORY Performing Organization Address City/[facility]/ZIP Code Phon e Number [facility] [place] [address] (ABNORMAL) PANEL BASIC METABOLIC (BMP) (06/20/2022 [...] Patrice Hollins MD LABORATORY Performing Organization Address City/[facility]/ZIP Code Phon e Number [facility] [place] [address] (ABNORMAL) CBC WITH PLATELET (06/20/2022 5:57 AM CDT) athologist Signature WBC 7.23 4.00 - [facility] [...] Patrice Hollins MD LABORATORY Performing Organization Address City/[facility]/ZIP Code Phon e Number [facility] [place] [address] EXTRA TUBE - SST (06/20/2022 1:05 AM CDT) athologist Signature SST TUBE Stored [facility] Comment: SST tubes (Serum Separator) are stored in the lab for 3 days from the collection date. Specimen Anatomical Collection Method Collection Time Receive d Time (Source) Location / / Volume Laterality Blood 06/20/2022 1:05 AM 2 1:05 CDT AM CDT Kingston Castañeda MD LABORATORY Performing Organization Address City/[facility]/ZIP Code Phon e Number [facility] [place] [address] ANTI XA HEPARIN UNFRACTIONATED (06/20/2022 12:19 AM CDT) athologist Signature Anti XA Hep U 0.44 0.30 - 0.70 [facility] IU/mL Specimen Anatomical Collection Method Collection Time Receive d Time (Source) Location / / Volume Laterality Blood 06/20/2022 12:19 06/20/2022 1:07 AM CDT AM CDT Patrice Hollins MD LABORATORY Performing Organization Address City/[facility]/ZIP Code Phon e Number [facility] [place] [address] (ABNORMAL) POC GLUCOSE (06/19/2022 8:57 PM CDT) P athologist Signature POC Glucose 126 (H) 70 - 100 [facility] mg/dL CAMPUS - POINT OF CARE Specimen (Source) Anatomical Collection Method Collection Time Re ceived Time Location / / Volume Laterality Blood 06/19/2022 8:57 PM CDT Kingston Castañeda MD LABORATORY Performing Organization Address City/State/ZIP Code Phon e Number [facility] - POINT OF CARE [address] [place] [address] XR FOOT RIGHT 3 V AP/OBL/LAT* (06/19/2022 [...] Patrice Hollins MD LABORATORY Performing Organization Address City/[facility]/ZIP Code Phon e Number [facility] [place] [address] (ABNORMAL) POC GLUCOSE (06/19/2022 4:01 PM CDT) athologist Signature POC Glucose 159 (H) 70 - 100 [facility] mg/dL CAMPUS - POINT OF CARE Specimen (Source) Anatomical Collection Method Collection Time Re ceived Time Location / / Volume Laterality Blood 06/19/2022 4:01 PM CDT Kingston Castañeda MD LABORATORY Performing Organization Address City/[facility]/ZIP Code Phon e Number [facility] - POINT OF CARE [address] [place] [address] ANTI XA HEPARIN UNFRACTIONATED (06/19/2022 12:51 PM CDT) athologist Signature Anti XA Hep U 0.34 0.30 - 0.70 [facility] IU/mL Specimen Anatomical Collection Method Collection Time Receive d Time (Source) Location / / Volume Laterality Blood 06/19/2022 12:51 06/19/2022 PM CDT 12:59 PM CDT Patrice Hollins MD LABORATORY Performing Organization Address City/[facility] Phon e Number [facility] [place] [address] PELVIS 3D RECONSTRUCTION (06/19/2022 11:49 [...] lumbar spine. Procedure Note Rizwan Cunningham V., [facility] - 06/19/2022Form atting of this note might [...] POC Glucose 128 (H) 70 - 100 [facility] mg/dL CAMPUS - POINT OF CARE Specimen (Source) Anatomical Collection Method Collection Time Re ceived Time Location / / Volume Laterality Blood 06/19/2022 11:19 AM CDT Kingston Castañeda MD LABORATORY Performing Organization Address City/State/ZIP Code Phon e Number [facility] - POINT OF CARE [address] [place] [address] CT UROGRAM (06/19/2022 11:05 AM CDT) Anatomical [...] race pleural effusions. Procedure Note Rizwan Cunningham V., LEONARD - 06/19/2022Form atting of this note might [...] POC Glucose 135 (H) 70 - 100 [facility] mg/dL CAMPUS - POINT OF CARE Specimen (Source) Anatomical Collection Method Collection Time Re ceived Time Location / / Volume Laterality Blood 06/19/2022 6:03 AM CDT Kingston Castañeda MD LABORATORY Performing Organization Address City/State/ZIP Code Phon e Number [facility] GYPSY - POINT OF CARE [address] [place] [address] (ABNORMAL) ANTI XA HEPARIN UNFRACTIONATED (06/19/2022 5:15 AM CDT) Analysis Performed At Patho logist Time [facility] Anti XA Hep U <0.04 (L) 0.30 - [facility] 0.70 IU/mL Specimen Anatomical Collection Method Collection Time Receive d Time (Source) Location / / Volume Laterality Blood 06/19/2022 5:15 AM 2 6:21 CDT AM CDT Patrice Hollins MD LABORATORY Performing Organization Address City/State/ZIP Code Phon e Number [facility] [place] [address] (ABNORMAL) PANEL BASIC METABOLIC (BMP) (06/19/2022 5:15 AM CDT) athologist Signature CO2 24 22 - 30 [facility] mEq/L Glucose 140 (H) 70 - 100 [facility] mg/dL BUN 12 6 - 20 [facility] mg/dL Creatinine 0.61 (L) 0.70 - [...] Patrice Hollins MD LABORATORY Performing Organization Address City/[facility] Phon e Number [facility] [place] [address] (ABNORMAL) CBC WITH PLATELET (06/19/2022 5:15 AM CDT) P athologist Signature WBC 4.92 4.00 - [facility] 10.00 k/cmm RBC 3.30 (L) 4.60 - 6.00 [facility] m/cmm Hgb 9.4 (L) 13.1 - 17.5 [facility] g/dL Hematocrit 28.0 (L) 40.0 - 51.0 [facility] % MCV 84.8 80.0 - [facility] [...] Patrice Hollins MD LABORATORY Performing Organization Address City/[facility] Phon e Number [facility] [place] [address] (ABNORMAL) ANTI XA HEPARIN UNFRACTIONATED (06/18/2022 [...] Patrice Hollins MD LABORATORY Performing Organization Address City/[facility] Code Phon e Number [facility] [place] [address] (ABNORMAL) POC GLUCOSE (06/18/2022 9:13 PM CDT) athologist Signature POC Glucose 127 (H) 70 - 100 [facility] mg/dL CAMPUS - POINT OF CARE Specimen (Source) Anatomical Collection Method Collection Time Re ceived Time Location / / Volume Laterality Blood 06/18/2022 9:13 PM CDT Kingston Castañeda MD LABORATORY Performing Organization Address City/[facility] Code Phon e Number [facility] - POINT OF CARE [address] [place] [address] (ABNORMAL) POC GLUCOSE (06/18/2022 7:03 PM CDT) athologist Signature POC Glucose 147 (H) 70 - 100 [facility] mg/dL CAMPUS - POINT OF CARE Specimen (Source) Anatomical Collection Method Collection Time Re ceived Time Location / / Volume Laterality Blood 06/18/2022 7:03 PM CDT Kingston Castañeda MD LABORATORY Performing Organization Address [facility] Phon e Number [facility] - POINT OF CARE [address] [place] [address] XR C ARM OVER 3 HRS (06/18/2022 [...] Signature POC Glucose 98 70 - 100 [facility] mg/dL CAMPUS - POINT OF CARE Specimen (Source) Anatomical Collection Method Collection Time Re ceived Time Location / / Volume Laterality Blood 06/18/2022 4:15 PM CDT Kingston Castañeda MD LABORATORY Performing Organization Address City/State/ZIP Code Phon e Number [facility] - POINT OF CARE [address] [place] [address] .Post Sedation Immediate (06/18/2022 12:23 PM CDT) [...] the needle into the IVC. A 5 Bulgarian pigtail flush catheter was advanced over the [...] the needle into the IVC. A 5 Bulgarian pigtail flush catheter was advanc ed over [...] POC Glucose 109 (H) 70 - 100 [facility] mg/dL CAMPUS - POINT OF CARE Specimen (Source) Anatomical Collection Method Collection Time Re ceived Time Location / / Volume Laterality Blood 06/18/2022 11:21 AM CDT Kingston Castañeda MD LABORATORY Performing Organization Address City/[facility]/ZIP Code Phon e Number [facility] - POINT OF CARE [address] [place] [address] (ABNORMAL) ANTI XA HEPARIN UNFRACTIONATED (06/18/2022 10:27 AM CDT) Analysis Performed At Patho logist Time Signature Anti XA Hep U <0.04 (L) 0.30 - [facility] 0.70 IU/mL Specimen Anatomical Collection Method Collection Time Receive d Time (Source) Location / / Volume Laterality Blood 06/18/2022 10:27 06/18/2022 AM CDT 10:32 AM CDT Patrice Hollins MD LABORATORY Performing Organization Address City/[facility]/ZIP Code Phon e Number [facility] [place] [address] XR URETHROGRAM RETROGRADE (06/18/2022 9:14 AM [...] was unremarkable. No extravasatio n was demonstrated. [employer] Curator: Kirby Complications: None Fluoroscopy time: 22 seconds [...] urethra was unremarkable. No extravasation was demonstrated. [employer] Curator: Kirby Complications: None Fluoroscopy time: 22 seconds Dose: 12 mGy IMPRESSION IMPRESSION: No evidence for anterior ure thral injury. Reading Radiologist: Mario Orr Patrice Hollins MD FLUORO (ABNORMAL) POC GLUCOSE (06/18/2022 6:26 AM CDT) athologist Signature POC Glucose 125 (H) 70 - 100 [facility] mg/dL CAMPUS - POINT OF CARE Specimen (Source) Anatomical Collection Method Collection Time Re ceived Time Location / / Volume Laterality Blood 06/18/2022 6:26 AM CDT Kingston Castañeda MD LABORATORY Performing Organization Address City/[facility] Phon e Number [facility] - POINT OF CARE [address] [place] [address] (ABNORMAL) ANTI XA HEPARIN UNFRACTIONATED (06/18/2022 4:50 AM CDT) Analysis Performed At Patho logist Time Signature Anti XA Hep U <0.04 (L) 0.30 - [facility] 0.70 IU/mL Specimen Anatomical Collection Method Collection Time Receive d Time (Source) Location / / Volume Laterality Blood 06/18/2022 4:50 AM 5:11 CDT AM CDT Patrice Hollins MD LABORATORY Performing Organization Address City/State/[facility] Code Phon [place] [address] (ABNORMAL) PANEL BASIC METABOLIC (BMP) (06/18/2022 4:50 AM CDT) athologist Signature CO2 23 22 - 30 [facility] mEq/L Glucose 137 (H) 70 - 100 [facility] mg/dL BUN 12 6 - 20 [facility] mg/dL Creatinine 0.66 (L) 0.70 - 1.25 [facility] mg/dL Calcium 8.3 (L) 8.6 - [...] Patrice Hollins MD LABORATORY Performing Organization Address City/[facility]/ZIP Code Ph[place] [address] (ABNORMAL) CBC WITH PLATELET (06/18/2022 4:50 AM CDT) athologist Signature WBC 7.80 4.00 - [facility] 10.00 k/cmm RBC 3.37 (L) 4.60 - 6.00 [facility] m/cmm Hgb 9.6 (L) 13.1 - 17.5 [facility] g/dL Hematocrit 28.8 (L) 40.0 - 51.0 [facility] % MCV 85.5 80.0 - [facility] 100.0 fL MCH 28.5 25.0 - [...] Patrice Hollins MD LABORATORY Performing Organization Address City/[facility]/ZIP Code Phon e Number [facility] [place] [address] (ABNORMAL) ANTI XA HEPARIN UNFRACTIONATED (06/17/2022 10:34 PM CDT) athologist Signature Anti XA Hep U 0.22 (L) 0.30 - [facility] 0.70 IU/mL Specimen Anatomical Collection Method Collection Time Receive d Time (Source) Location / / Volume Laterality Blood 06/17/2022 10:34 06/17/2022 PM CDT 11:12 PM CDT Patrice Hollins MD LABORATORY Performing Organization Address City/[facility] Phon e Number [facility] [place] [address] (ABNORMAL) POC GLUCOSE (06/17/2022 8:43 PM [...] [facility] - POINT OF CARE [address] [place] [address] (ABNORMAL) POC GLUCOSE (06/17/2022 3:57 PM CDT) athologist Signature POC Glucose 169 (H) 70 - 100 [facility] mg/dL CAMPUS - POINT OF CARE Specimen (Source) Anatomical Collection Method Collection Time Re ceived Time Location / / Volume Laterality Blood 06/17/2022 3:57 PM CDT Kingston Castañeda MD LABORATORY Performing Organization Address City/State/ZIP Code Phon e Number [facility] - POINT OF CARE [address] [place] [address] ULT VENOUS LOWER EXTREMITY BILAT (06/17/2022 3:35 [...] reported to referring provider Nisha Guadalupe via [email or web address], who responded indicating that the communication was [...] reported to referring provider Nisha Guadalupe via [email or web address], who responded indicating that the communication was understood. Contact was made at the time of interpretation on 06/17/2022 3:37 PM, wit hin 5 minutes of observation. Reading Radiologist: Lenny Callahan Meredith Guadalupe [employer], [employer] ULT (ABNORMAL) POC GLUCOSE (06/17/2022 11:54 AM [...] POINT OF CARE [address] [place] [address] ANTIBODY SCREEN (06/17/2022 11:46 AM CDT) athologist Signature Sabrina Screen Negative [facility] Specimen Anatomical Collection Method Collection Time Receive d Time (Source) Location / / Volume Laterality Blood 06/17/2022 11:46 06/17/2022 AM CDT 12:06 PM CDT Patrice Hollins MD LAB TRANSFUSION SERVICES Performing Organization Address City/[facility] Code Phon e Number [facility] [place] [address] BLOOD TYPING-ABO/RH (06/17/2022 11:46 AM CDT) athologist Signature ABORHG A POS [facility] Specimen Anatomical Collection Method Collection Time Receive d Time (Source) Location / / Volume Laterality Blood 06/17/2022 11:46 06/17/2022 AM CDT 12:06 PM CDT Patrice Hollins MD LAB TRANSFUSION SERVICES Performing Organization Address City/[facility] Phon e Number [facility] [place] [address] POC GLUCOSE (06/17/2022 6:53 AM CDT) athologist Signature POC Glucose 88 70 - 100 [facility] mg/dL CAMPUS - POINT OF CARE Specimen (Source) Anatomical Collection Method Collection Time Re ceived Time Location / / Volume Laterality Blood 06/17/2022 6:53 AM CDT Kingston Castañeda MD LABORATORY Performing Organization Address City/[facility] Code Phon e Number [facility] - POINT OF CARE [address] [place] [address] (ABNORMAL) POC GLUCOSE (06/17/2022 6:51 AM CDT) athologist Signature POC Glucose 20 (LL) 70 - 100 [facility] mg/dL CAMPUS - POINT OF CARE Specimen (Source) Anatomical Collection Method Collection Time Re ceived Time Location / / Volume Laterality Blood 06/17/2022 6:51 AM CDT Kingston Castañeda MD LABORATORY Performing Organization Address City/[facility] Phon e Number [facility] - POINT OF CARE [address] [place] [address] (ABNORMAL) PANEL BASIC METABOLIC (BMP) (06/17/2022 5:07 AM CDT) athologist Signature CO2 23 22 - 30 [facility] mEq/L Glucose 118 (H) 70 - 100 [facility] mg/dL BUN 13 6 - 20 [...] Kingston Castañeda MD LABORATORY Performing Organization Address City/[facility] Phon e Number [facility] [place] [address] (ABNORMAL) CBC WITH PLATELET (06/17/2022 5:07 AM CDT) P athologist Signature WBC 7.32 4.00 - [facility] [...] Kingston Castañeda MD LABORATORY Performing Organization Address City/[facility]/ZIP Code Phon e Number [facility] [place] [address] (ABNORMAL) POC GLUCOSE (06/16/2022 9:14 PM CDT) P athologist Signature POC Glucose 149 (H) 70 - 100 [facility] mg/dL CAMPUS - POINT OF CARE Specimen (Source) Anatomical Collection Method Collection Time Re ceived Time Location / / Volume Laterality Blood 06/16/2022 9:14 PM CDT Kingston Castañeda MD LABORATORY Performing Organization Address City/State/ZIP Code Phon e Number [facility] - POINT OF CARE [address] [place] [address] XR WRIST RIGHT 3+ PA/OB/LAT/JENS* (06/16/2022 6:58 PM CDT) Anatomical Region Laterality Modality Hand Computed Radiography Specimen (Source) Anatomical Collection Method Collection Time Re ceived Time Location / / Volume Laterality 06/16/2022 7:14 PM CDT Impressions 06/16/2022 7:25 PM CDT Impression: Intra-articular fracture of the distal radius. Reading Radiologist: Indio Cadena Narrative 06/16/2022 7:25 PM CDT Exam: Right wrist [...] radius. Reading Radiologist: Indio Cadena Yaritza Gallegos [employer], [employer] X-RAY POC GLUCOSE (06/16/2022 6:05 PM CDT) athologist Signature POC Glucose 73 70 - 100 [facility] mg/dL CAMPUS - POINT OF CARE Specimen (Source) Anatomical Collection Method Collection Time Re ceived Time Location / / Volume Laterality Blood 06/16/2022 6:05 PM CDT Kingston Castañeda MD LABORATORY Performing Organization Address [facility] Phon e Number [facility] - POINT OF CARE [address] [place] [address] POC GLUCOSE (06/16/2022 12:47 PM CDT) P athologist Signature POC Glucose 95 70 - 100 [facility] mg/dL CAMPUS - POINT OF CARE Specimen (Source) Anatomical Collection Method Collection Time Re ceived Time Location / / Volume Laterality Blood 06/16/2022 12:47 PM CDT Kingston Castañeda MD LABORATORY Performing Organization Address [facility] Phon e Number [facility] - POINT OF CARE [address] [place] [address] XR PELVIS 5V AP/IN/OUTLET/JUDET* (06/16/2022 12:19 PM [...] 06/15/2022. Fluoroscopy time: ??22 seconds Dose:12 mGy Jackson protocol was followed. ?? Technique: The patient [...] 06/15/2022. Fluoroscopy time: 22 seconds Dose:12 mGy Jackson protocol was followed. Technique: The patient arrived [...] e Number [facility] [address] (ABNORMAL) URINALYSIS,TOTAL (06/16/2022 12:20 AM CDT) [facility] gist Method Time Signature Color YELLOW YELLOW [facility] Appearance CLEAR CLEAR [facility] Urine Glucose NEGATIVE NEGATIVE [facility] mg/dL Bili UA NEGATIVE NEGATIVE [facility] Ketones TRACE (A) NEGATIVE [facility] mg/dL Blood Ur NEGATIVE Neg-Trace [facility] PH Urine 5.5 5.0 - 7.0 [facility] Protein Ur TRACE Neg-Trace [facility] mg/dL Urobilinogen NORMAL NORMAL EU/dL [facility] Nitrite Ur NEGATIVE NEGATIVE [facility] Leuk Est NEGATIVE Neg-Trace [facility] WBC Ur 6-10 (A) 0 - 5 perHPF [facility] RBC Ur 11-20 (A) 0 - 3 perHPF [facility] SQ EPITH 0-5 0 - 5 perHPF [facility] Mucus 1+ perLPF [facility] [...] in diagnosing an infection. Urinalysis Performed at: [facility] Specific Laura 1.010 1.003 - 1.030 [facility] Specimen Anatomical Collection Method Collection Time Receive d Time (Source) Location / / Volume Laterality Urine 06/16/2022 12:20 06/16/2022 AM CDT 12:39 AM CDT Gideon Dyer MD LABORATORY Performing Organization Address City/State/ZIP Code Phon e Number [facility] [place] [address] [place] [address] [facility] XR PELVIS AP* (06/15/2022 11:21 PM CDT) [...] is not well-visualized. Procedure Note Rizwan Cunningham V. BS - 06/15/2022Form atting of this note might [...] canal or neural foraminal stenosis. 3. Suspected [place] syndrome on the left. Reading Radiologist: Stephany [...] visualized paraspi nous tissues is noted. Suspected [place] syndrome on left. Procedure Note Stephany Granda [...] visualized paraspi nous tissues is noted. Suspected [place] syndrome on left. IMPRESSION Impression: 1. No fracture or subluxation of the cer vical vertebrae. 2. No significant spinal canal or neural foraminal stenosis. 3. Suspected [place] syndrome on the left. Reading Radiologist: Stephany [...] styloid process, which can be seen in [place] syndrome. The visualized portions of the paranasal [...] styloid process, which can be seen in [place] syndrome. The visualized portions of the paranasal [...] CDT) P athologist Signature CASTAÑEDA TUBE Stored [facility] e Number [facility] [place] [address] EXTRA TUBE - SST (06/15/2022 7:20 PM CDT) P athologist Signature SST TUBE Stored [facility] Comment: SST tubes (Serum Separator) are stored in the lab for 3 days from the collection date. Specimen Anatomical Collection Method Collection Time Receive d Time (Source) Location / / Volume Laterality Blood 06/15/2022 7:20 PM 2 7:31 CDT PM CDT Kingston Castañeda MD LABORATORY Performing Organization Address City/[facility]/ZIP Code Phon e Number [facility] [place] [address] HS TROPONIN (06/15/2022 7:20 PM CDT) [...] Gideon Dyer MD LABORATORY Performing Organization Address [facility]/ZIP Code Phon e Number [facility] [place] [address] (ABNORMAL) PTT (APTT) (06/15/2022 7:20 PM CDT) athologist Signature APTT 21.4 (L) 25.0 - 37.0 [facility] sec Specimen Anatomical Collection Method Collection Time Receive d Time (Source) Location / / Volume Laterality Blood 06/15/2022 7:20 PM 2 7:41 CDT PM CDT Gideon Dyer MD LABORATORY Performing Organization Address City/[facility]/ZIP Code Phon e Number [facility] [place] [address] PROTHROMBIN (PT) & INR (06/15/2022 7:20 PM CDT) athologist Signature PT 11.9 9.0 - 12.5 [facility] sec INR 1.0 0.8 - 1.1 [facility] Specimen Anatomical Collection Method Collection Time Receive d Time (Source) Location / / Volume Laterality Blood 06/15/2022 7:20 PM 2 7:41 CDT PM CDT Gideon Dyer MD LABORATORY Performing Organization Address City/[facility]/ZIP Code Phon e Number [facility] [place] [address] COVID-19 SURVEILLANCE (06/15/2022 7:20 PM CDT) [facility] Method Time Signature COVID-19 Not Detected Not Detected [facility] Comment: This test was developed and its performa nce characteristics determined by [facility]. This testing, RT-PCR, has been authorized by [...] 06/15 PM CDT 7:32 PM CDT Narrative [facility] - 06/15/2022 8:08 PM CDT Preferred specimen is Nasopharyngeal swab Is the patient a healthcare employee: No Is the patient a [place] ([facility]) Employee : No Gideon Dyer MD LABORATORY Performing Organization Address City/[facility] Code Phon e Number [facility] [place] [address] PRECAUTIONARY TUBE (06/15/2022 7:20 PM CDT) [facility] Method Time Signature Prec Tube Precautionary [facility] Blood Bank Specimen Received. Specimen Anatomical Collection Method Collection Time Receive d Time (Source) Location / / Volume Laterality Blood 06/15/2022 7:20 PM 7:43 CDT PM CDT Gideon Dyer MD LAB TRANSFUSION SERVICES Performing Organization Address City/State/ZIP Code Phon e Number [facility] [place] [address] LACTATE (LACTIC ACID) (06/15/2022 7:20 PM [...] Gideon Dyer MD LABORATORY Performing Organization Address City/[facility]/ZIP Code Phon e Number [facility] [place] [address] (ABNORMAL) FIBRINOGEN (06/15/2022 7:20 PM CDT) athologist Signature Fibrinogen 199 (L) 200 - 400 [facility] mg/dL Specimen Anatomical Collection Method Collection Time Receive d Time (Source) Location / / Volume Laterality Blood 06/15/2022 7:20 PM 2 7:41 CDT PM CDT Gideon Dyer MD LABORATORY Performing Organization Address City/State/ZIP Code Phon e Number [facility] [place] [address] ED HEMOGLOBIN TOTAL (ED ONLY) (06/15/2022 [...] e Number [facility] [place] [address] (ABNORMAL) ED CHEMISTRY LABS(NA,K,CL,CO2,GLU,CREAT,CA-IONIZED,ANION GAP) (06/15/2022 [...] e Number [facility] [place] [id number] [place] [address] (ABNORMAL) CBC WITH PLTS/AUTO DIFF (06/15/2022 7:20 PM CDT) Patholo gist Method Time Signature WBC 14.21 (H) 4.00 - [facility] 10.00 k/cmm RBC 4.65 4.60 - [facility] 6.[facility] m/cmm Hgb 13.0 (L) [...] 7:20 PM 2 7:41 CDT PM CDT Gideno Dyer MD LABORATORY Performing Organization Address City/State/ZIP Code Phon e Number [facility] [place] [address] BLOOD GASES (06/15/2022 7:20 PM CDT) [...] e Number [facility] [place] [address] ED US CRITICAL CARE (06/15/2022 7:16 [...] vertebra, initial encounter () Fall, initial encounter Pelvic ring fracture, closed, [...] First dose on 06/16/22 at 0800, Until Discontinued Given 06/27/2022 9:23 [...] PM CDT 20 mL Incision (1:200,000) 0.25% (1:192018) injection INTRA-OP ONCE PRN, Starting on Thu06/24/22 [...] RN)144 (Given - Provider: Vargas Whitman RN) 975 [...] RN) 09 (Given - Provider: Vargas hollis RN)1442 (Given [...] (CAN CELED) 0000 (Given - Provider: Peace Waite, RASHEL)0756 (Given - Provider: Vargas Whitman RN) 30 mg, Subcutaneous, Q12H, First dose on Thu06/24/22 at 2335, Until Discontinued enoxaparin (LOVENOX) 40 mg/0.4 mL injection 40 mg 194 (Given - Provider: Elva Adamson RN) 0827 (Given - Provider: Vargas hollis RN)2035 (Given - Provider: Shanice Nieves RN) 0922 (Given - Provider: Vargas hollis RN) 40 mg, Subcutaneous, Q12H, First dose (a fter last modification) on Thu06/25/22 at 2000, Until Discontinued GABApentin (NEURONTIN) capsule 400 mg 0752 (Given - Pr ovider: Vargas Whitman RN)1356 (Given - Provider: Vargas Whitman RN)194 (Given - Provider: Evla Adamson RN) 0827 (Given - Provider: Vargas hollis RN)1351 (Given - Provider: Vargas Whitman RN)203 (Given - Provider: Shanice Nieves RN) 0924 [...] Patient refused) 0828 (Given - Provider: Vargas Whitman, RASHEL) 09 (Given - Provider: Vargas hollis, RN) 30 mL, Oral, DAILY, First dose on Thu06/21/22 at 0925, Until Dis continued normal saline flush 0.9 % solution 10 mL 075 (Given - Provider: Vargas Whitman, RASHEL)1946 (Given - Provider: Elva Adamson, RASHEL) 08 (Given - Provider: Vargas Whitman RN)2036 (Given - Provider: Shanice Nieves, RASHEL) 09 (Given - Provider: Vargas hollis, RASHEL) 10 mL, IV Push, Q12H, First dose on Thu06/17/22 at 0800, Until D iscontinued polyethylene glycol 3350 (MIRALAX;GLYCOLAX) packet 17 g 075 (Not Given (removes Due time) - [...] RN) 08 (Given - Provider: Vargas Whitman RN)2035 (Given - Provider: Shanice Nieves RN) 0924 (Given - Provider: Vargas hollis RN) 1 tablet, Oral, BID, First dose on 06/21/22 at 0925, Until Di scontinued sodium chloride tablet 2 g 1351 (Given - Provider: Vargas Whitman, RASHEL)1629 (Given - Provider: Tamera Shaw RN)2036 (Given - Provider: Shanice Nieves, RN) 0923 (Given - Provider: Vargas hollis RN)1200 (Given - Provider: Vargas Whitman, RN)1700 (Due) 2 g, Oral, QID, First dose on Cathy 06/26/22 at 1330, Until Discont inued tamsulosin (FLOMAX) capsule 0.4 mg 0752 (Given - Provi akiko: Vargas Whitman, RASHEL) 08 (Given - Provider: Vargas Whitman, RASHEL) 09 ( Given - Provider: Vargas Whitman, RASHEL) 0.4 mg, Oral, DAILY PC, First dose [...] Peace Waite, RASHEL)0657 (Given - Provider: Peace Waite RN)1210 (Given - Provider: Vargas Whitman, RASHEL)1529 (Given - Provider: Elva Adamson, RASHEL)1947 (Given - Provider: Elva Adamson, RASHEL) 0559 (Given - Provider: Shanice Nieves, RASHEL) 0.5 mg, IV Push, Q4H PRN, Starting on Mo n 06/16/22 at 0944, Until Cathy 06/26/22 at 1038, Severe Pain (Use First) hydrOXYzine (ATARAX;VISTARIL) tablet 25-50 mg 0442 (Gi anish - Provider: Natalia Romero RN)0935 (Given - Provider: Vargas Whitman, RASHEL)1356 (Given - Provider: Vargas Whitman, RN)2152 (Given - Provider: Elva Adamson, RASHEL) 0250 (Given - Provider: Shanice Nieves RN)0957 (Given - Provider: Vargas Whitman RN)1352 (Given - Provider: Vargas Whitman, RASHEL)1755 [...] Fall, RASHEL)0936 (Given - Provider: Vargas Whitman, RN)1355 (Given - Provider: Vargas Whitman, RN)1747 (Given - Provider: Elva Adamson, RASHEL) 0249 (Given - Provider: Shanice Nieves, RASHEL)0957 (Given - Provider: Vargas Whitman, RN)1352 (Given - Provider: Vargas Whitman, RN)1755 (Given - Provider: Tamera Shaw RN) 0051 (Given - Provider: Shanice Nieves, RASHEL)0501 (Given - Provider: Shanice Nieves, RASHEL)0924 (Given - Provider: Vargas Whitman RN) 5-10 [...]
--- OUTSIDE RECORDS SUMMARY | 2022-07-23 20:35 | XMS_ITS | Encounter Summary ---
:1975 Author Organization [facility] Address [address] [place] [address] Phone Care Team Providers Name Role Phone Unavailable Primary Care Provider Unavailable Reason for Visit Auth/Cert (Routine) Specialty Diagnoses / Procedures Referred By Contact Refer red To Contact SURGERY Diagnoses Fall, initial encounter Erasmo Gonzalez MD [address] [place] [address] [address] [place], [place] [address] 5 R4.400 [place] [address] Phone: Fax: Referral ID Status Reason Start Date Expiration Date Visits Requ ested Visits Authorized [id number] 1 1 Encounter Details Date Type Department Care Team Description 06/24/2022 Anesthesia Event OR P4 Vish Aguirre MD [address] [place], [place] 130405 629 [facility] [address] [place] [address] P4.445 [place] 5[address] Anesthesia Record Procedure Summary Procedure Name Responsible [...] 1830; Yes; 20 06/17/22 1830 by 2 2104 by USER gauge, 2 1/2 in length; Zelinskas, Chintan D, RN SER, EPIC Anterior, Left; Upper Arm; [...] and clear Preoxygenation: mask Device Device used: [employer] Supporting device: Blade size: 2 The patient [...] and oral mucosa unchanged Performed by: Anesthesiologist: Vihs Aguirre MD EMPLOYMENT LEGAL ASSISTANT: Shanti Kruse APRN, CRNA Other: [id number] [employer] [place] [id number] Events: @PLINK([id number])@ Anesthesia Preprocedure Evaluation - Vish Aguirre MD [...] ROS comment: Rectal hematoma Hematologic/Onc (+) anemia, /Renal/Armature Tester Airway Mallampati: II TM distance: >3 FB Neck ROM: full Mouth Opening: good Dental - normal exam Risk of dental damage discussed with patient/guardian who acknowledges understanding. OB Other Physical Exam Anesthesia Plan ASA 2 general (GETA) intravenous induction Maintenance: Balanced Post-op Care: routine analgesia A hourly sign language interpreter was used. Anesthetic plan and risks discussed with patient. The use of blood products has been discussed with the patient, and consented by patient. Plan discussed with EMPLOYMENT LEGAL ASSISTANT. Vitals: 06/24/22 0720 BP: 130/82 Pulse: 94 [...] Appointment RADIOLOGY Patrice Hollins MD [address] [address] Scheduled 1, [place] [address] [place] [address] 07/25/2022 Office Visit NEUROSURGERY Briana Kaplan PA -C [address] [place] [address] Scheduled 1, [place] [address] [place] [address] 07/25/2022 Appointment PHYSICAL MEDICINE AND REHAB Lore Aguilar, PT Scheduled [address] [place] [address] (Wo rk) 08/05/2022 Appointment ORTHOPEDICS 1, [place] Scheduled [address] [place] [address] 08/05/2022 Appointment RADIOLOGY Roosevelt Brown MD [address] [place] [address] Scheduled 1, [place] [address] [place] [address] 08/05/2022 Appointment RADIOLOGY Roosevelt Brown MD [address] [place] [address] Scheduled 1, [place] [address] [place] [address] 08/05/2022 Office Visit ORTHOPEDICS Roosevelt Brown MD [address] [place] [address] Scheduled 1, [place] [address] [place] [address] 08/20/2022 Office Visit Interventional Radiology Provider, Hesham haq Scheduled 1, [place] [address] [place] [address] 08/21/2022 Office Visit MEDICINE Naomie Bal MBBS [address] [place], [place] [address] Scheduled 1, [place] [address] [place] [address] documented as of this encounter Procedures Procedure [...] and clear Preoxygenation: mask Device Device used: [employer] Supporting device: ?? Blade size: 2 The [...] unchanged Performed by: Anesthesiologist: Vish Aguirre MD EMPLOYMENT LEGAL ASSISTANT: Shanti Kruse APRN, CRNA Other: ?? [id number] [place] [id number] Events: @PLINK([id number])@ Vish Aguirre MD PROCEDURES documented in this [...]
--- OUTSIDE RECORDS SUMMARY | 2022-07-23 20:35 | XMS_ITS | Encounter Summary ---
:1975 Author Organization [facility] Address [address] [place] [address] Phone Care Team Providers Name Role Phone [...] 07/25/2022 Appointment RADIOLOGY Patrice Hollins MD [address] [address] Scheduled 1, [facility] [address] [place] [address] 07/25/2022 Office Visit NEUROSURGERY Briana Kaplan PA -C [address] [place] [address] Scheduled 1, [facility] [address] [place] [address] 07/25/2022 Appointment PHYSICAL MEDICINE AND REHAB Lore Aguilar, PT Scheduled [address] [place] [address] (Wo rk) 08/05/2022 Appointment ORTHOPEDICS 1, [place] Scheduled [address] [place] [address] 08/05/2022 Appointment RADIOLOGY Roosevelt Brown MD [address] [place] [address] Scheduled 1, [facility] [address] [place] [address] 08/05/2022 Appointment RADIOLOGY Roosevelt Brown MD [address] [place] [address] Scheduled 1, [facility] [address] [place] [address] 08/05/2022 Office Visit ORTHOPEDICS Roosevelt Brown MD [address] [place] [address] Scheduled 1, [facility] [address] [place] [address] 08/20/2022 Office Visit Interventional Radiology Provider, Hesham haq Scheduled 1, [facility] [address] [place] [address] 08/21/2022 Office Visit MEDICINE Naomie Bal MBBS [address] [place] [address] Scheduled 1, [facility] [address] [place] [address] documented as of this encounter Procedures Procedure [...] on filedocumented in this encounter Care Teams Wood Miller Relationship Specialty Start Date End Date oLre Au, PT Physical Therapist Physical Therapy 07/09/22 [address] [place] [address] documented as of this encounter
--- OUTSIDE RECORDS SUMMARY | 2022-07-23 20:35 | XMS_ITS | Encounter Summary ---
:1975 Author Organization [facility] Address [address] [place] [address] Phone Care Team Providers Name Role Phone [...] Appointment RADIOLOGY Patrice Hollins MD [address] 111405 Scheduled 1, [facility] [address] [place] [address] 07/25/2022 Office Visit NEUROSURGERY Briana Kaplan PA -C [address] [place] [address] Scheduled 1, [facility] [address] [place] [address] 07/25/2022 Appointment PHYSICAL MEDICINE AND REHAB Lore Aguilar, PT Scheduled [address] [place] [address] (Wo rk) 08/05/2022 Appointment ORTHOPEDICS 1, [facility] Scheduled 701 [place] [address] 08/05/2022 Appointment RADIOLOGY Roosevelt Brown MD [address] [place] [address] Scheduled 1, [facility] [address] [place] [address] 08/05/2022 Appointment RADIOLOGY Roosevelt Brown MD [address] [place] [address] Scheduled 1, [facility] [address] [place] [address] 08/05/2022 Office Visit ORTHOPEDICS Roosevelt Brown MD [address] [place] [address] Scheduled 1, [facility] [address] [place] [address] 08/20/2022 Office Visit Interventional Radiology Provider, Hesham haq Scheduled 1, [facility] [address] [place] [address] 08/21/2022 Office Visit MEDICINE Naomie Bal MBBS [address] [place] [address] Scheduled 1, [facility] [address] [place] [address] documented as of this encounter Procedures Procedure [...] on filedocumented in this encounter Care Teams Dehydration Plant Operator Relationship Specialty Start Date End Date Lore Au, PT Physical Therapist Physical Therapy 07/09/22 [address] [place] [address] documented as of this encounter
--- OUTSIDE RECORDS SUMMARY | 2022-07-23 20:35 | XMS_ITS | Encounter Summary ---
:1975 Author Organization [facility] Address [address] [place] [address] Phone Care Team Providers Name Role Phone [...] Appointment RADIOLOGY Patrice Hollins MD [address] 398485 Scheduled 1, [facility] [address] [place] [address] 07/25/2022 Office Visit NEUROSURGERY Briana Kaplan PA -C [address] [place] [address] Scheduled 1, [place] [address] [place] [address] 07/25/2022 Appointment PHYSICAL MEDICINE AND REHAB Lore Aguilar, PT Scheduled [address] [place] [address] (Wo rk) 08/05/2022 Appointment ORTHOPEDICS 1, [facility] Scheduled [address] [place] [address] 08/05/2022 Appointment RADIOLOGY Roosevelt Brown MD [address] [place] [address] Scheduled 1, [facility] [address] [place] [address] 08/05/2022 Appointment RADIOLOGY Roosevelt Brown MD [address] [place] [address] Scheduled 1, [facility] [address] [place] [address] 08/05/2022 Office Visit ORTHOPEDICS Roosevelt Brown MD [address] [place] [address] Scheduled 1, [facility] [address] [place] [address] 08/20/2022 Office Visit Interventional Radiology Provider, Hesham haq Scheduled 1, [facility] [address] [place] [address] 08/21/2022 Office Visit MEDICINE Naomie Bal MBBS [address] [place] [address] Scheduled 1, [facility] [address] [place] [address] documented as of this encounter Procedures Procedure [...] on filedocumented in this encounter Care Teams Appraisal Manager Relationship Specialty Start Date End Date Lore Au, PT Physical Therapist Physical Therapy 07/09/22 [address] [place] [address] documented as of this encounter
--- OUTSIDE RECORDS SUMMARY | 2022-07-23 20:35 | XMS_ITS | Encounter Summary ---
:1975 Author Organization [facility] Address [address] [place] [address] Phone Care Team Providers Name Role Phone [...] 07/25/2022 Appointment RADIOLOGY Patrice Hollins MD [address] [phone] Scheduled 1, [facility] [address] [place] [address] 07/25/2022 Office Visit NEUROSURGERY Briana Kaplan PA -C [address] [place] [address] Scheduled 1, [place] [address] [place] [address] 07/25/2022 Appointment PHYSICAL MEDICINE AND REHAB Lore Aguilar, PT Scheduled [address] [place] [address] (Wo rk) 08/05/2022 Appointment ORTHOPEDICS 1, [place] Scheduled [address] [place] [address] 08/05/2022 Appointment RADIOLOGY Roosevelt Brown MD [address] [place] [address] Scheduled 1, [place] [address] [place] [address] 08/05/2022 Appointment RADIOLOGY Roosevelt Brown MD [address] [place] [address] Scheduled 1, [place] [address] [place] [address] 08/05/2022 Office Visit ORTHOPEDICS Roosevelt Brown MD [address] [place] [address] Scheduled 1, [place] [address] [place] [address] 08/20/2022 Office Visit Interventional Radiology Provider, Hesham haq Scheduled 1, [place] [address] [place] [address] 08/21/2022 Office Visit MEDICINE Naomie Bal MBBS [address] [place] [address] Scheduled 1, [place] [address] [place] [address] documented as of this encounter Procedures Procedure [...] on filedocumented in this encounter Care Teams Receiving Associate Relationship Specialty Start Date End Date Lore Au, PT Physical Therapist Physical Therapy 07/09/22 [address] [place] [address] documented as of this encounter
[2022-07-23 20:36] LABS: Blood Urea Nitrogen* 18 mg/dL (5-24); Calcium* 9.7 mg/dL (8.4-10.6); Carbon Dioxide* 27 mmol/L (20-32); Glucose* 172 mg/dL (60-115)
--- OUTSIDE RECORDS SUMMARY | 2022-07-23 20:36 | XMS_ITS | Encounter Summary ---
:1975 Author Organization [facility] Address [address] [place] [address] Phone Care Team Providers Name Role Phone Unavailable Primary Care Provider Unavailable Reason for Visit Reason Comments Fall Auth/Cert (Routine) Specialty Diagnoses / Procedures Referred By Contact Refer red To Contact SURGERY Diagnoses Fall, initial encounter Erasmo Gonzalez MD [address] [place], [place] [address] 5 [phone] [place] [address] Phone: Fax: Referral ID Status Reason Start Date Expiration Date Visits Requ ested Visits Authorized [id number] 1 1 Encounter Details Date Type Department Care Team Description 06/18/2022 Surgery OR P4 Roosevelt Brown MD ORIF, PELVIS [address] [place] [address] [place] [address] [phone] Social History Tobacco Use Types Packs/Day Years [...] No focal deficits appreciated on gross examination Offset Plate Preparation Supervisor Needed: yes- Mosotho [35] PLANNED DISCHARGE ORDERS: Suture/Paulette: Location right [...] ___ Patient Address: C/o Shawnee Bolivar [address] [place] [address] Question Response Notes Effective date for equipment/supply 06/25/2022 Medical necessity for order (qualifying diagnosis) sacral fracture, right acetabular fracture, T12 compression fracture, right distal radius fracture Length of time equipment/supply needed 12 months Monthly quantity . Vendor Information [employer]; ph: [phone], fx: [phone] XR SPINE THORACOLUMBAR 2 VIEW Question Response [...] Yes Antitippers Yes Vendor Information [employer]; ph: [phone], fx: [phone] DME JUSTIFICATION OF NEED FOR EXTENDED TUB [...] PLEASE CALL the Patient Access Center at [phone] to schedule the following appointment(s) Question Response Notes Specify time frame 1 Month Reason for Visit? Evaluate need for continued IVC Filtration Provider Type? Any available Provider Clinic Location? [facility] Specialty: Interventional Radiology Schedule Appointment - [facility] Ortho Cl Order Notes PLEASE CALL the Patient Access Center at [phone] to schedule the following appointment(s) Question Response Notes Specify time frame 2 Weeks Reason for Visit? Post op follow up, hospitalization. S/p ORIF right SI joint Provider Type? Any available Provider Clinic Location? [facility] Specialty: Orthopedics Schedule Appointment in Neurosurgery- [facility] Clinic Order Notes Schedule Appointment in Neurosurgery Clinic - [facility] Neurosurgery Clinic Direct Line: [phone] [place] [address] Clinic Hours: 8 AM - 4:30 PM M-F Question Response Notes Specify time frame 6 Weeks Reason for Visit? Follow up T12 and lumbar fractures Provider Type? [facility] Clinic Location? [facility] Specialty: Neurosurgery Imaging? Yes UR [...] your doctor or [facility] When should I be concerned? Order Notes [...] 4 PM): Call the Radiology department at [phone] After hours or on Holidays: Call the [facility] dope house operator helper . Ask the dope house operator helper to page the Interventional Radiologist ground water contractor. IF: -- hives or new itching the [...] wet, you can dry it with a english division chair set to cool/warm; call the Orthopaedic Clinic at [phone] if the cast remains soft. -- Cover [...] wet, you can dry it with a english division chair set to cool/warm; call the Orthopaedic Clinic at [phone] if the cast remains soft. -- Cover [...] -- Read all labels for prescription and Fmsg-our-gkmvcqg medicines. Ask the pharmacist if your prescription [...] taking these medications acetaminophen 325 mg tablet Ojus 3 tabletas (975 mg) por la boca [...] (5 mg) by mouth 3 times daily. Ojus 1 tableta (5 mg) por la boca [...] (400 mg) by mouth 3 times daily. Ojus 1 capsula (400 mg) por la boca 3 veces al porsche. hydrOXYzine pamoate 25 mg capsule Commonly known as: VISTARIL Take 1-2 capsules (25-50 mg) by mouth every 4 hours as needed (pain adjunct (give with opioid)).Ojus 1-2 c??psulas (25-50 mg) por v??a oral cada 4 horas seg??n sea necesario (complemento para el dolor (administrar con opioide)). melatonin 3 mg tablet Take 1 tablet (3 mg) by mouth at bedtime as needed for Sleep. Ojus 1 tableta (3 mg) por la boca a lahora de acostrase. oxyCODONE 5 mg tablet Commonly known as: ROXICODONE Ojus 1 tableta (5 mg) por la boca cada 4 horas rock sea necesario para el dolor. (Take 1 tablet (5 mg) by mouth every 4 hours as needed for Pain.) polyethylene glycol 3350 17 gm/scoop powder Commonly known as: MIRALAX/GLUCOLAX Take 17 g by mouth twice daily.Take 1 capful to 17 gm cuate mixed with full glass of water twice every day as directed.Ojus 17 g por v??a oral dos veces al d??a. Ojus 1 tap??n hasta la minerva de 17 g mezclado con un vaso lleno de agua dos veces al d??a seg??n las indicaciones. * Xarelto 15 mg tablet Generic drug: rivaroxaban Take 1 tablet (15 mg) by mouth twice daily with meals for 21 days. Indications: Blood Clot in a DeepVein. Ojus 1 tableta (15 mg) por v??a oral dos veces al d??a con las comidas jennifer 21 d??as. 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 Start taking on: June 29, 2022 * rivaroxaban 20 mg tablet Commonly known as: XARELTO Take 1 tablet (20 mg) by mouth daily with evening meal. Indications: Blood Clot in a Deep Vein.(Ojus 1 tableta (20 mg) por v??a oral diariamente con la evonne. 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 Ojus 1 tableta por la boca 2 veces al porsche. sodium chloride 1 gm Tabs Take 2 tablets (2 g) by mouth 4 times daily. TOME DOS TABLETAS ORALMENTE 4 VECES AL PORSCHE tamsulosin 0.4 mg Capsule Commonly known as: FLOMAX Take 1 capsule (0.4 mg) by mouth daily after meal.Take 30 minutes after same meal each day. Do NOT crush or chew.Ojus 1 c??psula (0,4 mg) por v??a oral todos los d??as despu??s de ethan comida. Ojus 30 minutos despu??s de la misma comida [...] These medications were sent to [facility] Dis[facility] - [place] [address] Hours: 27/04 acetaminophen 325 mg tablet bisacodyl [...] me are documented. Patrice Hollins M.D., F.A.C.S. [facility] Department of Surgery documented in this [...] Self Cares with a TLSO A TLSO (Vcqrjdk-Obgbv-Ohuxne-Orthosis) is a brace designed to immobilize your [...] determine what you need) Extended tub bench Student Accounts Manager Long Handled Sponge Raised Toilet Seat with arms Remember : - No weight on your right arm/hand, no pulling and no pushing with right hand. - No weight on right leg - Pivot transfer ONLY on left leg - No walking - Slow down, think before moving Discharge Instr - Speech Language PathologyTheodora Serrano OTR/L - 06/27/2022 8:50 AM CDT {EDGE BANDER HAND Discharge Instructions:[id number]} AttachmentsThe following attachments cannot be sent through Care Everywhere.Cast Care (Mosotho)Forearm and Wrist Fractures ED (Mosotho)Forearm Fracture Discharge Instructions (Mosotho)Radius Fracture (Mosotho)Radius Fracture Discharge Instructions (Mosotho)Pelvic Fracture Discharge Instructions (Mosotho) Pelvic Fracture (Mosotho)Fractures (Mosotho)General Trauma Discharge Instructions (Mosotho)Type 2 Diabetes Discharge Instructions (Mosotho)documented in this encounter Medications at Time of Discharge Medication Sig Dispensed Refills Start Date End Date acetaminophen 325 mg Take 3 tablets (975 120 tablet 0 2021 oral tablet mg) by mouth 3 times daily. hydrOXYzine pamoate Take 1-2 capsules 120 capsule 0 06/26/20 (VISTARIL) 25 mg oral (25-50 mg) by mouth capsule every 4 hours as needed (pain adjunct (give with opioid)).Ojus 1-2 c??psulas (25-50 mg) por v??a oral [...] oral by mouth 3 times TABS daily. Ojus 1 tableta (5 mg) por la boca 3 veces al porsche. polyethylene glycol Take 17 g by mouth 510 g 0 06/26/20 22 3350 twice daily.Take 1 (MIRALAX/GLUCOLAX) 17 capful to 17 gm gm/scoop oral powder cuate mixed with full glass of water twice every day as directed.Ojus 17 g por v??a oral dos veces al d??a. Ojus 1 tap??n hasta la minerva de 17 g mezclado con un vaso lleno de agua dos veces al d??a seg??n las indicaciones. sennosides-docusate Take 1 tablet by 40 each 0 06/26/2022 sodium (STOOL mouth twice daily. SOFTENER/LAXATIVE) Ojus 1 tableta por 8.6-50 mg oral tablet la boca 2 veces al porsche. GABApentin (NEURONTIN) Take 1 capsule (400 120 capsule 0 400 mg oral capsule mg) by mouth 3 times daily. Ojus 1 capsula (400 mg) por la boca 3 veces al porsche. tamsulosin (FLOMAX) Take 1 capsule (0.4 10 capsule 0 022 0.4 mg oral capsule mg) by mouth daily after meal.Take 30 minutes after same meal each day. Do NOT crush or chew.Ojus 1 c??psula (0,4 mg) por v??a oral todos los d??as despu??s de ethan comida. Ojus 30 minutos despu??s de la misma comida todos los d??as. No triture ni mastique. melatonin 3 mg oral Take 1 tablet (3 mg) 20 tablet 0 2021 tablet by mouth at bedtime as needed for Sleep. Ojus 1 tableta (3 mg) por la boca [...] Thrombosis Indications: Blood Clot in a Deep Vein.(Ojus 1 tableta (20 mg) por v??a oral diariamente con la nut blanker operator. Indicaciones: co??gulo de figueroa en ethan [...] Indications: Blood Clot in a Deep Vein. Ojus 1 tableta (15 mg) por v??a oral [...] w/ Precautions?: Yes (with some occasional reminders) Offset Plate Preparation Supervisor Used: No, certified bilingual staff SUBJECTIVE: [...] assisting with supervision and 1-2 tips from policy writer typist Upper Body Dressing Techniques & Equipment: 1 [...] Functional activity: 15 minutes CLAUDIO Cordero Pager: [facility] OT Department Neal Phillips, ADVERTISING ASSISTANT MANAGER - 06/27/2022 9:42 AM CDT Problem: Decreased Transfer Skills Goal: Patient will transfer supine to/from sit Description: Patient will transfer supine to/from sit with (6) Modified [place] in the TLSO w/othe use of his [...] (Numeric): 4 (improved) Participation Significantly Limited?: No O:Offset Plate Preparation Supervisor Used: Yes, [facility] inspector publications Mental Status Mental Status: Alert;Cooperative;Follows 3 step [...] own equipment. Neal Phillips PTA 06/27/2022 Pager: [facility] PT Dept Joce Villareal MD - 06/27/2022 [...] - ok for L LE pivot transfer) Offset Plate Preparation Supervisor Used: No, certified bilingual staff SUBJECTIVE: [...] assisting with supervision and 1-2 tips from policy writer typist Lower Body Dressing: Maximal assist (25% patient [...] Functional Activity 15 minutes JACKELIN Cordero/Kira Pager: [facility] OT Department Patrice Hollins MD - 06/26/2022 [...] vital signs normal. Euvolemic on exam. Asymptomatic. [id number] LR post procedurally 06/24. Has not received [...] Patrice Hollins MD, 06/30/2022 9:13 AM Neal Phillips PTA - 06/26/2022 9:03 AM CDT Problem: Decreased Transfer Skills Goal: Patient will transfer supine to/from sit Description: Patient will transfer supine to/from sit with (6) Modified [place] in the TLSO w/othe use of his [...] (Numeric): 4 (improved) Participation Significantly Limited?: No O:Offset Plate Preparation Supervisor Used: Yes, [facility] inspector publications Mental Status Mental Status: Alert;Cooperative;Follows 3 step [...] set-up and management. Increase tolerance for sitting. ADVERTISING ASSISTANT MANAGER Appropriate: Yes Neal Phillips PTA 06/26/2022 Pager: [facility] PT Dept Chintan Valadez MD - 06/26/2022 [...] clear for home with family support) (06/25/22 1359) Barriers to discharge to home/community: Insufficient Level of Supervision/Assist, Pain, and Decreased Activity Tolerance If discharging home, would need: assistance PRN - from . Post discharge follow-up: Outpatient PT recommended * (when cleared to ambulate) (06/25/22 1351) Equipment Status: Team notified of equipment recommendation (06/25/22 1356) PT Equipment Recommended: Manual wheelchair (06/25/22 9622) S: I have a little more pain today compared to yesterday, but I can still get up. Pain Pain Rating With Activity (Numeric): 7 (low back on R side when sitting up in the wheelchair) Participation Significantly Limited?: No Intervention: Other (assisted with transferring pt back to bed) O:Offset Plate Preparation Supervisor Used: Yes, [facility] inspector publications Mental Status Mental Status: Alert;Cooperative;Follows 3 step [...] by PT. She also assisted pt with usxece-jx-icx transfer. Pt required just standby assist for [...] with assisting with wheelchair set-up and management. ADVERTISING ASSISTANT MANAGER Appropriate: Yes Alize Stevens, PT 06/25/2022 Pager: [facility] PT Dept Problem: Decreased Transfer Skills Goal: Patient will transfer supine to/from sit Description: Patient will transfer supine to/from sit with (6) Modified [place] in the TLSO w/othe use of his [...] be able to roll with (6) Modified [place] using log roll technique w/o the use [...] - ok for L LE pivot transfer) Offset Plate Preparation Supervisor Used: No, certified bilingual staff SUBJECTIVE: [...] assisting with supervision and 1-2 tips from policy writer typist Lower Body Dressing: Maximal assist (25% patient [...] (OT): In progress Caregiver Training Comments (OT): 09/21: Ongoing education with . Pt able to [...] Functional activity: 15 minutes JACKELIN Cordero/Kira Pager: [facility] OT Department Patrice Hollins MD - 06/25/2022 [...] No new concerns. O: Vitals: 06/24/22 1841 06/24/22201706/24/227 06/25/22 0406 BP: 116/73 120/72 131/74 Cuff [...] 05 WBC 10.55 (H) 06/22/2022524 WBC 7.23 06/20/2022556 HGB 12.0 (L) 06/24/2022542 HGB 10.1 (L) 06/22/2022524 HGB 9.0 (L) 06/20/2022556 PLT 527 (H) 06/24/2022542 PLT 378 06/22/2022524 PLT 266 06/20/2022 0557 CR 0.62 (L) 06/24/2022 0543 CR 0.63 (L) 06/20/2022 0557 CR 0.61 (L) 06/19/2022 0515 lApesh Live MD Orthopaedic Surgery, PGY-3 Faculty Note: [...] 1920 EOSNUMB 0.20 06/15/2022 192 BASO 0.03 06/15/2022 [...] about 30 minutes prior to arrival) O: Offset Plate Preparation Supervisor Used: No, certified bilingual staff Name or Reference Number (phone): [id number] Mental Status Mental Status: Alert;Cooperative;Follows 1 step [...] of the above Positioning: Pt transferred to cart in prep for surgery at end of [...] sittin gmidlineat EOB prior to transfer to WC. Pt requiring intermittent reminders for NWB R [...] have family re-demo WC part management . ADVERTISING ASSISTANT MANAGER Appropriate: Yes Charlene Lindo, PT 06/24/2022 Pager: [facility] PT Dept Problem: Decreased Transfer Skills Goal: Patient will roll Description: Patient will be able to roll with (6) Modified [place] using log roll technique w/o the use of his RUE while maintaining both spinal and WB restrictions in order to demonstrate improved function and D/C by 06/28. Outcome: In progress Goal: Patient will transfer supine to/from sit Description: Patient will transfer supine to/from sit with (6) Modified [place] in the TLSO w/othe use of his [...] - ok for L LE pivot transfer) Offset Plate Preparation Supervisor Used: No, certified bilingual staff SUBJECTIVE: Cooperative michael Encinas I am doing better, much less pain [...] assisting with supervision and 1-2 tips from policy writer typist Upper Body Dressing Techniques & Equipment: TLSO;Family [...] is only present while pushing against something. Maurice nauseous upon waking, dry heaved. Able to [...] me are documented. Patrice Hollins M.D., F.A.C.S. [facility] Department of Surgery Korin Garcia MD [...] for OR today. Hopefully this afternoon or firer bisque kiln - Plan to convert right short arm [...] 4:52 PM Orthopedic Dept. Staff Physician Reshma Hackett OTR/L - 06/23/2022 12:50 PM CDT Problem: Loss of [place] With ADLs, Risk for Goal: Patient-specific goals [...] push/pull/place weight in RUE- ok through elbow) Offset Plate Preparation Supervisor Used: Yes, agency or phone inspector publications ([facility] phone/video inspector publications) SUBJECTIVE: I'm getting really warm. Can I [...] assisting with supervision and 1-2 tips from policy writer typist Upper Body Dressing Techniques & Equipment: TLSO;Family [...] care/Home mgmt/ADL: 30 minutes JACKELIN Fernandez/Kira Pager: [facility] OT Department Reshma Hackett OTR/Kira, 06/23/2022 4:09 [...] chief and staff. RESIDENT WITH STUDENT: Jorgito Hollwoay MD, 06/23/2022 2:47 PM FACULTY NOTE I saw and evaluated the patient Today, 06/23/2022. I discussed with the resident and agree with the resident???s findings and plan documented in the resident???s note from above. Any revisions by me aredocumented. Patrice Hollins M.D., Ana LauraC.S. [facility] Department of Surgery Linda Lei MD [...] Steele CO - 06/20/2022 10:26 AM CDT Juankley O&P Patient was seen to check fit of TLSO. Patient reports TLSO is fitting well with no reported discomfort. He and his were instructed on proper wear and care. Please call with any questions or concerns. Aman Pichardo MUSIC THERAPIST Danette O&P [phone] Linda Au MD - 06/20/2022 5:36 AM CDT Trauma SURGERY PROGRESS NOTE - MS3/PGY 1 Blue Surgery Kesha GlassIbisYomairapjlexie : 1975 Sex: male ASSESSMENT/PLAN: 46 y.o.male [...] Per nursing report, patient was bladder scanned nocf637od retained, so he underwent straight catheterization. He [...] Pulse: 86 83 87 Resp: 16 16 16 16 Temp: 36.3 ??C (97.4 ??F) [...] Results Component Value Date/Time WBC 4.92 06/19/2022 05 WBC 7.80 06/18/2022 0450 WBC 7.32 06/17/2022 0507 HGB 9.4 (L) 06/19/2022 05 HGB 9.6 (L) 06/18/2022 045 HGB 9.8 [...] NOTE - MS3/PGY 1 Blue Surgery Kesha Luisa : 1975 [...] GAETANO CONCEPCIONE, and LLE NWB DVT prophylaxis: Heparin post-orthopedic [...] IN NOTE D: Patient transferred in to [facility] from PACU at 1950. Patient condition on arrival: stable. Patient Belonging 06/16/2022 0110 Patient or family informed of Patient Valuables and Belongings Policy (#[id number]): Due to patient condition, [facility] staff will inventory and secure patient valuables [...] by me are documented. Patrice Hollins M.D., [place].S. [facility] Department of Surgery Alpesh Live MD [...] 0507 WBC 14.21 (H) 06/15/2022 1920 HGB 9.6 (L) 06/18/2022449 HGB 9.8 (L) 06/17/2022 0507 HGB 13.0 (L) 06/15/2022 1920 HGB 13.7 06/15/2022 1920 PLT 191 06/18/2022 [...] None Transportation Used for Discharge: family will picker tender Safety Concerns: None Behavioral Health Concerns: None Primary Insurance: N/A Secondary Insurance: N/A PLAN Plan/Interventions Discharge Plan: Home Risks for Readmission: None SUMMARY Patient would like to DC home where could help. He is uninsured. He has received 3 doses of Covid vaccine mailing manager will continue to follow until DC [...] by me aredocumented. Patrice Hollins M.D., F.A.C.S. [facility] Department of Surgery Resident: Linda Au [...] require OR during this hospital admission S: NAEEM, AF, VSS, RA. Resting comfortably [...] (L) 06/15/20221919 HGB 13.7 06/15/2022 192 PLT 181 06/17/2022 0507 PLT 294 06/15/20221919 CR 0.82 06/17/2022 0507 CR 1.00 06/15/20221919 Alpesh Live MD Orthopaedic Surgery, PGY-3 Orthopedic [...] return to fit when able. Aman Thurow MUSIC THERAPIST [facility]lgeorgette O&P [phone] Narciso Steele CO - 06/16/2022 12:08 PM [...] today for fitting and delivery. Aman Thurow MUSIC THERAPIST Winkley O&P [phone] Edna Ibrahim MDIV - 06/16/2022 9:36 AM CDT SPIRITUAL CARE VISIT SUMMARY Kesha Hill : 1975 Sex: male LOS: 0 days Reason for visit: Referral Assessment: Pt/family uncertain/anxious/frustrated Intervention: Engage theological concerns;Compassionate support;Facilitate communication;Lead/support spiritual rituals Outcome: Situation assessed;Gratitude expressed;Pt/family report increased sense of peace/spiritual well-being;Stress observed as lessened;Ritual provided Notes: Provided supportive presence for Mosotho speaking, Guamanian pt (with use of medical records technician). Pt was in pain, and consented to healing touch being provided. He indicated that this practice assisted with his pain. Pt spoke about his recent move to [place], and how he likes it there, and likes living with his Gloria there. Pt was able to speak with the nurse about his pain, and communicate that to her. He welcomed prayer, which this provider offered in Mosotho. Edna has completed levels one and two of Healing Touch and level one of Reiki. This is an energy based, gentle (limited) touch healing modality, and this patient or patient's family consented to this practice. Plan: Spiritual Care Team is available to support patient and family as needed via pager [phone]. Edna Ibrahim MDIV, 06/16/2022 9:36 AM Pager: [phone] Oanh Moore MD - 06/16/2022 6:02 AM [...] elbow flex/ext. 5/5 wrist flex/ext. 5/5 hand transit man. LUE: 5/5 shoulder abduction. 5/5 elbow flex/ext. 5/5 wrist flex/ext. 5/5 hand transit man. Lower Extremities: RLE: 0/5 hip flexion. 0/5 [...] Narvaez MD - 06/16/2022 12:00 [place] [address] [facility]#: [id number] PATIENT: KESHA HILL : 1975 DATE DICTATED: 06/16/2022 SURGERY STAFF DAILY PROGRESS NOTE DATE OF SERVICE: 06/16/2022 I saw and evaluated the patient. I discussed management with residents, CARE DIRECTOR RN, and PAs on the Neurosurgery team and [...] MD Staff Physician Neurosurgery Service Received in Director Public: 06/16/2022 18:59:09 M: /[id number] TB/MODL Patrice Hollins MD - 06/15/2022 7:18 PM CDT Trauma Staff I was notified via the trauma pager at: [phone] I evaluated/examined this patient at: aRRIVAL The patient arrived at: 06/15/2022 7:15 PM I was pre-notified: Yes Switchboard. Trauma Level: Tier 2 Staff Summary (full note will be with the resident H&P): Fell from [facility], 30 ft. Will plan head/c-spine/chest/abd/pelvis [...] file Social History Narrative Patient lives in [place], [place]. He is single and employed. Family [...] (06/15/221926) Temp: 36.3 ??C (97.3 ??F) (06/15/221929) [place] Coma Scale: Motor 6=Obeys commands Verbal 5=Oriented [...] diagnostic studies, procedures and surgery) Admit to [facility] Ortho Consult paged out at STAT. Neurosurgery consult paged out at 1945 Cardiac Monitoring Frequent neuro checks, [facility] checks Incentive Spirometer Bedrest with C, T, & L spine precautions C-spine exam and possible clearance once final reads posted NPO until final reads on radiography Consult EDGE BANDER HAND and keep strict NPO if EDGE BANDER HAND consult not indicated at this time PT/OT [...] me are documented. Patrice Hollins M.D., F.A.C.S. [facility] Department of Surgery documented in this [...] Hill at 1215 Patient transported back to [facility] via Bed. Accompanied by Tech and [...] John Leon MD Orthopaedic Surgery, PGY3 Pager: [phone] documented in this encounter Consult Notes Sultana Nuñez, Nae - 06/26/2022 4:10 PM CDTAssociated Order(s): DISCHARGE MED REC FINAL REVIEW BY PHARMACY PHARMACY DISCHARGE NOTE Kesha Hill : 1975 Sex: male Pharmacy service was consulted for review of patient's discharge medications. Planned discharge medications are: Medication List Medications Indications acetaminophen 325 mg tablet Ojus 3 tabletas (975 mg) por la boca [...] (5 mg) by mouth 3 times daily. Ojus 1 tableta (5 mg) por la boca [...] (400 mg) by mouth 3 times daily. Ojus 1 capsula (400 mg) por la boca 3 veces al porsche. glipiZIDE XL 10 mg extended release tablet Generic drug: glipiZIDE XL Take 1 tablet (10 mg) by mouth daily. Indications: Type 2 Diabetes Indications: Type 2 Diabetes hydrOXYzine pamoate 25 mg capsule Commonly known as: VISTARIL Take 1-2 capsules (25-50 mg) by mouth every 4 hours as needed (pain adjunct (give with opioid)).Ojus 1-2 c??psulas (25-50 mg) por v??a oral cada 4 horas seg??n sea necesario (complemento para el dolor (administrar con opioide)). melatonin 3 mg tablet Take 1 tablet (3 mg) by mouth at bedtime as needed for Sleep. Ojus 1 tableta (3 mg) por la boca a lahora de acostrase. metFORMIN 1000 mg tablet Commonly known as: GLUCOPHAGE Take 1 tablet (1,000 mg) by mouth twice daily with meals. Indications: Type 2 Diabetes Indications: Type 2 Diabetes oxyCODONE 5 mg tablet Commonly known as: ROXICODONE Ojus 1 o 2 tabletas por la boca cada 4 horas rock sea necesario para el dolor. (Take 1-2 tablets (5-10 mg) by mouth every 4 hours as needed for Pain.) polyethylene glycol 3350 17 gm/scoop powder Commonly known as: MIRALAX/GLUCOLAX Take 17 g by mouth twice daily.Take 1 capful to 17 gm cuate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 mEq/L CO2 27 22 - 30 [facility] mEq/L AnGap 11 8 - 16 [facility] mEq/L Glucose 151 (H) 70 - 100 [facility] mg/dL BUN 15 6 - 20 [facility] mg/dL Creatinine 0.69 (L) 0.70 - 1.25 [facility] mg/dL Calcium 8.9 8.6 - 10.0 [facility] mg/dL Albumin 3.5 (L) 3.8 - 5.1 [facility] g/dL Phosphorus 4.3 2.5 - 4.5 [facility] mg/dL eGFR, High >120 >=60 [facility] ml/min/1.73 m2 Comment: Calculated using CKD-EPI equati on eGFR, Low 115 >=60 ml/min/1.73m2 [facility] Comment: Calculated using CKD-EPI equati on Specimen Anatomical Collection Method Collection Time Receive d Time (Source) Location / / Volume Laterality Blood 06/26/2022 6:41 AM 2 7:47 CDT AM CDT Patrice Hollins MD LABORATORY Performing Organization Address City/[facility]/ZIP Code Phon e Number [facility] [place] [address] (ABNORMAL) CBC WITH PLATELET (06/26/2022 6:41 AM CDT) P athologist Signature WBC 12.28 (H) 4.00 [facility] 10.[facility] k/cmm RBC 3.46 (L) 4.60 - 6.00 [facility] m/cmm Hgb 9.7 (L) 13.1 - 17.5 [facility] g/dL Hematocrit 29.3 (L) 40.0 - 51.0 [facility] % MCV 84.7 80.0 - [facility] 100.0 fL MCH 28.0 25.0 - 32.0 [facility] pg MCHC 33.1 31.0 - 36.0 [facility] g/dL RDW 13.3 11.5 - 14.5 [facility] % Plt 516 (H) 150 - 400 [facility] k/cmm MPV 10.9 6.5 - 12.5 [facility] fL Specimen Anatomical Collection Method Collection Time Receive d Time (Source) Location / / Volume Laterality Blood 06/26/2022 6:41 AM 2 7:47 CDT AM CDT Patrice Hollins MD LABORATORY Performing Organization Address City/[facility] Phon e Number [facility] [place] [address] (ABNORMAL) POC GLUCOSE (06/25/2022 8:45 PM CDT) athologist Signature POC Glucose 159 (H) 70 - 100 [facility] mg/dL CAMPUS - POINT OF CARE Specimen (Source) Anatomical Collection Method Collection Time Re ceived Time Location / / Volume Laterality Blood 06/25/2022 8:45 PM CDT Kingston Castañeda MD LABORATORY Performing Organization Address City/[facility]/ZIP Code Phon e Number [facility] - POINT OF CARE [address] [place] [phone] OSMOLALITY,URINE-RANDOM ASIA (06/25/2022 5:08 PM CDT) athologist Signature Urine Osmo 528 50 - 800 [facility] mOsm/Kg Specimen Anatomical Collection Method Collection Time Receive d Time (Source) Location / / Volume Laterality Urine 06/25/2022 5:08 PM 2 5:39 CDT PM CDT Patrice Hollins MD LABORATORY Performing Organization Address City/[facility]/ZIP Code Phon e Number [facility] [place] [address] (ABNORMAL) SODIUM,URINE-RANDOM ASIA (06/25/2022 5:08 PM CDT) athologist Signature Sodium Urine 30 (L) 40 - 200 [facility] mEq/L Specimen Anatomical Collection Method Collection Time Receive d Time (Source) Location / / Volume Laterality Urine 06/25/2022 5:08 PM 2 5:39 CDT PM CDT Patrice Hollins MD LABORATORY Performing Organization Address City/State/ZIP Code Phon e Number [facility] [place] [address] (ABNORMAL) POC GLUCOSE (06/25/2022 4:09 PM CDT) athologist Signature POC Glucose 150 (H) 70 - 100 [facility] mg/dL CAMPUS - POINT OF CARE Specimen (Source) Anatomical Collection Method Collection Time Re ceived Time Location / / Volume Laterality Blood 06/25/2022 4:09 PM CDT Kingston Castañeda MD LABORATORY Performing Organization Address [facility] Code Phon e Number [facility] [place] - POINT OF CARE [address] [place] [phone] PELVIS NO IV CON+ 3D RECON [...] 188 (H) 70 - 100 [facility] mg/dL [place] - POINT OF CARE Specimen (Source) Anatomical Collection Method Collection Time Re ceived Time Location / / Volume Laterality Blood 06/25/2022 11:26 AM CDT Kingston Castañeda MD LABORATORY Performing Organization Address City/[facility]/ZIP Code Phon e Number [facility] - POINT OF CARE [address] [place] [address] (ABNORMAL) POC GLUCOSE (06/25/2022 5:59 AM CDT) athologist Signature POC Glucose 126 (H) 70 - 100 [facility] mg/dL [place] - POINT OF CARE Specimen (Source) Anatomical Collection Method Collection Time Re ceived Time Location / / Volume Laterality Blood 06/25/2022 5:59 AM CDT Kingston Castañeda MD LABORATORY Performing Organization Address City/[facility]/ZIP Code Phon e Number [facility] - POINT OF CARE [address] [place] [address] OSMOLALITY SERUM (06/25/2022 5:51 AM CDT) athologist Signature Serum Osmo 299 285 - 305 [facility] mOsm/Kg Specimen Anatomical Collection Method Collection Time Receive d Time (Source) Location / / Volume Laterality Blood 06/25/2022 5:51 AM 2 4:44 CDT PM CDT Patrice Hollins MD LABORATORY Performing Organization Address [facility]/ZIP Code Phon e Number [facility] [place] [address] (ABNORMAL) PANEL RENAL (06/25/2022 5:51 AM CDT) P athologist Signature CO2 28 22 - 30 [facility] mEq/L Glucose 144 (H) 70 - 100 [facility] mg/dL BUN 19 6 - 20 [facility] mg/dL Creatinine 0.78 0.70 - 1.25 [facility] mg/dL Calcium 9.1 8.6 - 10.0 [facility] mg/dL Albumin 3.4 (L) 3.8 - 5.1 [facility] g/dL Phosphorus 4.1 2.5 - 4.5 [facility] mg/dL eGFR, High >120 >=60 [facility] ml/min/1.73 m2 Comment: Calculated using CKD-EPI equati on Sodium 131 (L) 135 - 148 mEq/L [facility] Potassium 4.5 3.5 - 5.3 mEq/L [facility] Chloride 94 92 - 108 mEq/L [facility] eGFR, Low 109 >=60 ml/min/1.73m2 [facility] Comment: Calculated using CKD-EPI equati on AnGap 9 8 - 16 mEq/L [facility] Specimen Anatomical Collection Method Collection Time Receive d Time (Source) Location / / Volume Laterality Blood 06/25/2022 5:51 AM 2 6:23 CDT AM CDT Patrice Hollins MD LABORATORY Performing Organization Address City/[facility]/ZIP Code Phon e Number [facility] [place] [address] (ABNORMAL) CBC WITH PLATELET (06/25/2022 5:51 AM CDT) P athologist Signature WBC 12.52 (H) 4.00 [facility] 10.[facility] k/cmm RBC 3.62 (L) 4.60 - 6.00 [facility] m/cmm Hgb 10.2 (L) 13.1 - 17.5 [facility] g/dL Hematocrit 30.6 (L) 40.0 - 51.0 [facility] % MCV 84.5 80.0 - [facility] 100.0 fL MCH 28.2 25.0 - 32.0 [facility] pg MCHC 33.3 31.0 - 36.0 [facility] g/dL RDW 13.3 11.5 - 14.5 [facility] % Plt 522 (H) 150 - 400 [facility] k/cmm MPV 9.7 6.5 - 12.5 [facility] fL Specimen Anatomical Collection Method Collection Time Receive d Time (Source) Location / / Volume Laterality Blood 06/25/2022 5:51 AM 6:23 CDT AM CDT Patrice Hollins MD LABORATORY Performing Organization Address City/[facility] Code Phon e Number [facility] [place] [address] (ABNORMAL) POC GLUCOSE (06/24/2022 9:13 PM CDT) athologist Signature POC Glucose 211 (H) 70 - 100 [facility] mg/dL CAMPUS - POINT OF CARE Specimen (Source) Anatomical Collection Method Collection Time Re ceived Time Location / / Volume Laterality Blood 06/24/2022 9:13 PM CDT Kingston Castañeda MD LABORATORY Performing Organization Address City/[facility]/ZIP Code Phon e Number [facility] [place] - POINT OF CARE [address] [place] [phone] (ABNORMAL) POC GLUCOSE (06/24/2022 6:41 PM CDT) athologist Signature POC Glucose 248 (H) 70 - 100 [facility] mg/dL CAMPUS - POINT OF CARE Specimen (Source) Anatomical Collection Method Collection Time Re ceived Time Location / / Volume Laterality Blood 06/24/2022 6:41 PM CDT Kingston Castañeda MD LABORATORY Performing Organization Address City/[facility]/ZIP Code Phon e Number [facility] [place] - POINT OF CARE [address] [place] [phone] (ABNORMAL) POC GLUCOSE (06/24/2022 4:39 PM CDT) P athologist Signature POC Glucose 214 (H) 70 - 100 [facility] mg/dL CAMPUS - POINT OF CARE Specimen (Source) Anatomical Collection Method Collection Time Re ceived Time Location / / Volume Laterality Blood 06/24/2022 4:39 PM CDT Kingston Castañeda MD LABORATORY Performing Organization Address City/State/ZIP Code Phon e Number [facility] - POINT OF CARE [address] [place] [address] XR C ARM OVER 3 HRS (06/24/2022 [...] 141 (H) 70 - 100 [facility] mg/dL CAMPUS - POINT OF CARE Specimen (Source) Anatomical Collection Method Collection Time Re ceived Time Location / / Volume Laterality Blood 06/24/2022 1:10 PM CDT Kingston Castañeda MD LABORATORY Performing Organization Address City/State/ZIP Code Phon e Number [facility] [place] - POINT OF CARE [address] [place] [address] (ABNORMAL) POC GLUCOSE (06/24/2022 10:53 AM CDT) athologist Signature POC Glucose 146 (H) 70 - 100 [facility] mg/dL CAMPUS - POINT OF CARE Specimen (Source) Anatomical Collection Method Collection Time Re ceived Time Location / / Volume Laterality Blood 06/24/2022 10:53 AM CDT Kingston Castañeda MD LABORATORY Performing Organization Address City/[facility]/ZIP Code Phon e Number [facility] - POINT OF CARE [address] [place] [address] RED BLOOD CELLS LEUKOCYTE REDUCED ADULT (BLOOD ADMIN) (06/24/2022 8:39 AM CDT) athologist Signature RBC Ready Product [facility] Ready Specimen Anatomical Collection Method Collection Time Receive d Time (Source) Location / / Volume Laterality Other 06/24/2022 8:39 AM 2 8:39 CDT AM CDT Narrative [facility] - 06/24/2022 8:45 AM CDT 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 case 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 bleeding Is a signed informed consent on file: Ludwig regan-on file Reason for Transfusion:->Anticipated Blo od Loss for Surgery/Procedure Does patient require irradiated product: No 2 Units Miri Matthew MD BLOOD BANK ORDERABLES (BLOOD ADMIN) Performing Organization Address City/[facility]/ZIP Code Phon e Number [facility] [place] [address] (ABNORMAL) ANTI XA HEPARIN UNFRACTIONATED (06/24/2022 7:04 AM CDT) athologist [facility] Anti XA Hep U 0.12 (L) 0.30 - [facility] 0.70 IU/mL Specimen Anatomical Collection Method Collection Time Receive d Time (Source) Location / / Volume Laterality Blood 06/24/2022 7:04 AM 2 7:35 CDT AM CDT Patrice Hollins MD LABORATORY Performing Organization Address City/[facility]/ZIP Code Phon e Number [facility] [place] [address] (ABNORMAL) POC GLUCOSE (06/24/2022 6:42 AM CDT) athologist Signature POC Glucose 155 (H) 70 - 100 [facility] mg/dL CAMPUS - POINT OF CARE Specimen (Source) Anatomical Collection Method Collection Time Re ceived Time Location / / Volume Laterality Blood 06/24/2022 6:42 AM CDT Kingston Castañeda MD LABORATORY Performing Organization Address City/State/ZIP Code Phon e Number [facility] - POINT OF CARE [address] [place] [phone] MAGNESIUM (06/24/2022 5:43 AM CDT) athologist Signature Magnesium 2.0 1.6 - 2.6 [facility] mg/dL Specimen Anatomical Collection Method Collection Time Receive d Time (Source) Location / / Volume Laterality Blood 06/24/2022 5:43 AM 2 6:18 CDT AM CDT Patrice Hollins MD LABORATORY Performing Organization Address City/[facility]/ZIP [place] [address] (ABNORMAL) PANEL RENAL (06/24/2022 5:43 AM CDT) athologist Signature Sodium 132 (L) 135 - 148 [facility] mEq/L Potassium 4.2 3.5 - 5.3 [facility] mEq/L Chloride 96 92 - 108 [facility] mEq/L CO2 23 22 - 30 [facility] mEq/L Glucose 160 (H) 70 - 100 [facility] mg/dL BUN 19 6 - 20 [facility] mg/dL Creatinine 0.62 (L) 0.70 - 1.25 [facility] mg/dL Calcium 9.5 8.6 - 10.0 [facility] mg/dL Albumin 3.7 (L) 3.8 - 5.1 [facility] g/dL Phosphorus 4.3 2.5 - 4.5 [facility] mg/dL eGFR, High >120 >=60 [facility] ml/min/1.73 m2 Comment: Calculated using CKD-EPI equati on AnGap 13 8 - 16 mEq/L [facility] eGFR, Low 120 >=60 ml/min/1.73m2 [facility] Comment: Calculated using CKD-EPI equati on Specimen Anatomical Collection Method Collection Time Receive d Time (Source) Location / / Volume Laterality Blood 06/24/2022 5:43 AM 2 6:18 CDT AM CDT Patrice Hollisn MD LABORATORY Performing Organization Address City/State/ZIP Code Phon e Number [facility] [place] [address] (ABNORMAL) CBC WITH PLATELET (06/24/2022 5:43 AM CDT) athologist Signature WBC 11.29 (H) 4.00 - [facility] 10.00 k/cmm RBC 4.30 (L) 4.60 - 6.00 [facility] m/cmm Hgb 12.0 (L) 13.1 - 17.5 [facility] g/dL Hematocrit 36.0 (L) 40.0 - 51.0 [facility] % MCV 83.7 80.0 - [facility] 100.0 fL MCH 27.9 25.0 - 32.0 [facility] pg MCHC 33.3 31.0 - 36.0 [facility] g/dL RDW 13.3 11.5 - 14.5 [facility] % Plt 527 (H) 150 - 400 [facility] k/cmm MPV 9.8 6.5 - 12.5 [facility] fL Specimen Anatomical Collection Method Collection Time Receive d Time (Source) Location / / Volume Laterality Blood 06/24/2022 5:43 AM 6:18 CDT AM CDT Patrice Hollins MD LABORATORY Performing Organization Address City/[facility]/ZIP Code Phon e Number [facility] [place] [address] (ABNORMAL) ANTI XA HEPARIN UNFRACTIONATED (06/23/2022 10:42 PM CDT) athologist [facility] Anti XA Hep U 0.29 (L) 0.30 - [facility] 0.70 IU/mL Specimen Anatomical Collection Method Collection Time Receive d Time (Source) Location / / Volume Laterality Blood 06/23/2022 10:42 06/23/2022 PM CDT 11:02 PM CDT Patrice Hollins MD LABORATORY Performing Organization Address City/State/ZIP Code Phon e Number [facility] [place] [address] (ABNORMAL) POC GLUCOSE (06/23/2022 8:46 PM CDT) athologist Signature POC Glucose 136 (H) 70 - 100 [facility] mg/dL CAMPUS - POINT OF CARE Specimen (Source) Anatomical Collection Method Collection Time Re ceived Time Location / / Volume Laterality Blood 06/23/2022 8:46 PM CDT Kingston Castañeda MD LABORATORY Performing Organization Address City/[facility]/ZIP Code Phon e Number [facility] - POINT OF CARE [address] [place] [phone] (ABNORMAL) POC GLUCOSE (06/23/2022 3:57 PM CDT) athologist Signature POC Glucose 200 (H) 70 - 100 [facility] mg/dL CAMPUS - POINT OF CARE Specimen (Source) Anatomical Collection Method Collection Time Re ceived Time Location / / Volume Laterality Blood 06/23/2022 3:57 PM CDT Kingston Castañeda MD LABORATORY Performing Organization Address City/[facility]/ZIP Code Phon e Number [facility] - POINT OF CARE [address] [place] [phone] (ABNORMAL) ANTI XA HEPARIN UNFRACTIONATED (06/23/2022 3:40 PM CDT) Analysis Performed At [facility] logist Time Signature Anti XA Hep U <0.04 (L) 0.30 - [facility] 0.70 IU/mL Specimen Anatomical Collection Method Collection Time Receive d Time (Source) Location / / Volume Laterality Blood 06/23/2022 3:40 PM 3:47 CDT PM CDT Patrice Hollins MD LABORATORY Performing Organization Address City/[facility]/ZIP Code Phon e Number [facility] [place] [address] (ABNORMAL) POC GLUCOSE (06/23/2022 11:08 AM CDT) athologist Signature POC Glucose 125 (H) 70 - 100 [facility] mg/dL CAMPUS - POINT OF CARE Specimen (Source) Anatomical Collection Method Collection Time Re ceived Time Location / / Volume Laterality Blood 06/23/2022 11:08 AM CDT Kingston Castañeda MD LABORATORY Performing Organization Address City/[facility]/ZIP Code Phon e Number [facility] - POINT OF CARE [address] [place] [phone] (ABNORMAL) ANTI XA HEPARIN UNFRACTIONATED (06/23/2022 6:25 AM CDT) Analysis Performed At Patho logist Time Signature Anti XA Hep U <0.04 (L) 0.30 - [facility] 0.70 IU/mL Specimen Anatomical Collection Method Collection Time Receive d Time (Source) Location / / Volume Laterality Blood 06/23/2022 6:25 AM 6:34 CDT AM CDT Patrice Hollins MD LABORATORY Performing Organization Address City/[facility] Code Phon e Number [facility] [place] [address] (ABNORMAL) POC GLUCOSE (06/23/2022 6:10 AM CDT) athologist Signature POC Glucose 131 (H) 70 - 100 [facility] mg/dL CAMPUS - POINT OF CARE Specimen (Source) Anatomical Collection Method Collection Time Re ceived Time Location / / Volume Laterality Blood 06/23/2022 6:10 AM CDT Kingston Castañeda MD LABORATORY Performing Organization Address City/[facility] Code Phon e Number [facility] - POINT OF CARE [address] [place] [phone] (ABNORMAL) POC GLUCOSE (06/22/2022 9:19 PM CDT) athologist Signature POC Glucose 195 (H) 70 - 100 [facility] mg/dL CAMPUS - POINT OF CARE Specimen (Source) Anatomical Collection Method Collection Time Re ceived Time Location / / Volume Laterality Blood 06/22/2022 9:19 PM CDT Kingston Castañeda MD LABORATORY Performing Organization Address City/[facility]/ZIP Code Phon e Number [facility] - POINT OF CARE [address] [place] [phone] (ABNORMAL) POC GLUCOSE (06/22/2022 4:03 PM CDT) athologist Signature POC Glucose 142 (H) 70 - 100 [facility] mg/dL CAMPUS - POINT OF CARE Specimen (Source) Anatomical Collection Method Collection Time Re ceived Time Location / / Volume Laterality Blood 06/22/2022 4:03 PM CDT Kingston Castañeda MD LABORATORY Performing Organization Address City/[facility]/ZIP Code Phon e Number [facility] - POINT OF CARE [address] [place] [phone] (ABNORMAL) POC GLUCOSE (06/22/2022 11:07 AM CDT) athologist [facility] POC Glucose 115 (H) 70 - 100 [facility] mg/dL [facility] - POINT OF CARE Specimen (Source) Anatomical Collection Method Collection Time Re ceived Time Location / / Volume Laterality Blood 06/22/2022 11:07 AM CDT Kingston Castañeda MD LABORATORY Performing Organization Address City/[facility]/ZIP Code Phon e Number [facility] - POINT OF CARE [address] [place] [phone] (ABNORMAL) PROTHROMBIN (PT) & INR (06/22/2022 10:53 AM CDT) athologist [facility] PT 13.9 (H) 9.0 - 12.5 [facility] sec INR 1.2 (H) 0.8 - 1.1 [facility] Specimen Anatomical Collection Method Collection Time Receive d Time (Source) Location / / Volume Laterality Blood 06/22/2022 10:53 06/22/2022 AM CDT 11:01 AM CDT Patrice Hollins MD LABORATORY Performing Organization Address City/[facility]/ZIP Code Phon e Number [facility] [place] [address] ANTIBODY SCREEN (06/22/2022 10:53 AM CDT) athologist [facility] Sabrina Screen Negative [facility] Specimen Anatomical Collection Method Collection Time Receive d Time (Source) Location / / Volume Laterality Blood 06/22/2022 10:53 06/22/2022 AM CDT 11:02 AM CDT Patrice Hollins MD LAB TRANSFUSION SERVICES Performing Organization Address City/State/ZIP [place] [address] BLOOD TYPING-ABO/RH (06/22/2022 10:53 AM CDT) athologist [facility] ABORHG A POS [facility] Specimen Anatomical Collection Method Collection Time Receive d Time (Source) Location / / Volume Laterality Blood 06/22/2022 10:53 06/22/2022 AM CDT 11:02 AM CDT Patrice Hollins MD LAB TRANSFUSION SERVICES Performing Organization Address City/[facility]/ZIP Code Phon e Number [facility] [place] [address] COVID-19 SURVEILLANCE (06/22/2022 7:10 AM CDT) [facility] Method Time Signature COVID-19 Not Detected Not Detected [facility] Specimen (Source) Anatomical Collection Method Collection Time Re ceived Time Location / / Volume Laterality Nasopharyngeal Swab 06/22/2022 7:10 06/22 AM CDT 11:15 AM CDT Narrative [facility] - 06/22/2022 12:26 PM CDT Preferred specimen is Nasopharyngeal swab Is the patient a healthcare employee: No Is the patient a [employer] ([facility]) Employee : No Patrice Hollins MD LABORATORY Performing Organization Address City/[facility] Code Phon e Number [facility] [place] [address] (ABNORMAL) POC GLUCOSE (06/22/2022 6:11 AM CDT) athologist Signature POC Glucose 160 (H) 70 - 100 [facility] mg/dL CAMPUS - POINT OF CARE Specimen (Source) Anatomical Collection Method Collection Time Re ceived Time Location / / Volume Laterality Blood 06/22/2022 6:11 AM CDT Kingston Castañeda MD LABORATORY Performing Organization Address City/[facility]/ZIP Code Phon e Number [facility] - POINT OF CARE [address] [place] [address] ANTI XA HEPARIN UNFRACTIONATED (06/22/2022 5:25 AM CDT) athologist Signature Anti XA Hep U 0.53 0.30 - 0.70 [facility] IU/mL Specimen Anatomical Collection Method Collection Time Receive d Time (Source) Location / / Volume Laterality Blood 06/22/2022 5:25 AM 9:54 CDT AM CDT Partice Hollins MD LABORATORY Performing Organization Address City/[facility]/ZIP Code Phon e Number [facility] [place] [address] (ABNORMAL) CBC WITH PLATELET (06/22/2022 5:25 AM CDT) [facility] WBC 10.55 (H) 4.00 - [facility] 10.00 k/cmm RBC 3.58 (L) 4.60 - 6.00 [facility] m/cmm Hgb 10.1 (L) 13.1 - 17.5 [facility] g/dL Hematocrit 30.2 (L) 40.0 - 51.0 [facility] % MCV 84.4 80.0 - [facility] 100.0 fL MCH 28.2 25.0 - 32.0 [facility] pg MCHC 33.4 31.0 - 36.0 [facility] g/dL RDW 13.3 11.5 - 14.5 [facility] % Plt 378 150 - 400 [facility] k/cmm MPV 9.7 6.5 - 12.5 [facility] fL Specimen Anatomical Collection Method Collection Time Receive d Time (Source) Location / / Volume Laterality Blood 06/22/2022 5:25 AM 2 5:39 CDT AM CDT Patrice Hollins MD LABORATORY Performing Organization Address City/[facility]/ZIP Code Phon e Number [facility] [place] [address] ANTI XA ASSAY LMW HEPARIN (06/22/2022 5:25 AM CDT) [facility] Anti XA LMW 0.63 IU/mL [facility] Comment: Anti Xa Assay LMW Heparin Therapeutic Ra nges: 0.4-1.1 IU/mL for twice daily 1.0-2.0 IU/mL for once daily Specimen Anatomical Collection Method Collection Time Receive d Time (Source) Location / / Volume Laterality Blood 06/22/2022 5:25 AM 2 5:39 CDT AM CDT Patrice Hollins MD LABORATORY Performing Organization Address City/[facility]/ZIP Code Phon e Number [facility] [place] [address] (ABNORMAL) POC GLUCOSE (06/21/2022 9:06 PM CDT) [facility] POC Glucose 158 (H) 70 - 100 [facility] mg/dL CAMPUS - POINT OF CARE Specimen (Source) Anatomical Collection Method Collection Time Re ceived Time Location / / Volume Laterality Blood 06/21/2022 9:06 PM CDT Kingston Castañeda MD LABORATORY Performing Organization Address City/[facility]/ZIP Code Phon e Number [facility] - POINT OF CARE [address] [place] [address] (ABNORMAL) POC GLUCOSE (06/21/2022 4:13 PM CDT) athologist Signature POC Glucose 145 (H) 70 - 100 [facility] mg/dL CAMPUS - POINT OF CARE Specimen (Source) Anatomical Collection Method Collection Time Re ceived Time Location / / Volume Laterality Blood 06/21/2022 4:13 PM CDT Kingston Castañeda MD LABORATORY Performing Organization Address City/[facility]/ZIP Code Phon e Number [facility] - POINT OF CARE [address] [place] [phone] (ABNORMAL) POC GLUCOSE (06/21/2022 11:53 AM CDT) athologist Signature POC Glucose 154 (H) 70 - 100 [facility] mg/dL [facility] - POINT OF CARE Specimen (Source) Anatomical Collection Method Collection Time Re ceived Time Location / / Volume Laterality Blood 06/21/2022 11:53 AM CDT Kingston Castañeda MD LABORATORY Performing Organization Address City/[facility] Code Phon e Number [facility] POINT OF [address] [address] ANTI XA HEPARIN UNFRACTIONATED (06/21/2022 6:19 AM CDT) athologist Signature Anti XA Hep U 0.30 0.30 - 0.70 [facility] IU/mL Specimen Anatomical Collection Method Collection Time Receive d Time (Source) Location / / Volume Laterality Blood 06/21/2022 6:19 AM 6:57 CDT AM CDT Patrice Hollins MD LABORATORY Performing Organization Address City/[facility]/ZIP Code Phon e Number [facility] [place] [address] [place] [address] (ABNORMAL) POC GLUCOSE (06/21/2022 6:17 AM CDT) athologist Signature POC Glucose 141 (H) 70 - 100 [facility] mg/dL CAMPUS - POINT OF CARE Specimen (Source) Anatomical Collection Method Collection Time Re ceived Time Location / / Volume Laterality Blood 06/21/2022 6:17 AM CDT Kingston Castañeda MD LABORATORY Performing Organization Address [facility] Phon e Number [facility] - POINT OF CARE [address] [place] [address] (ABNORMAL) POC GLUCOSE (06/20/2022 8:51 PM CDT) athologist Signature POC Glucose 153 (H) 70 - 100 [facility] mg/dL CAMPUS - POINT OF CARE Specimen (Source) Anatomical Collection Method Collection Time Re ceived Time Location / / Volume Laterality Blood 06/20/2022 8:51 PM CDT Kingston Castañeda MD LABORATORY Performing Organization Address [facility] Phon e Number [facility] [place] - POINT OF CARE [address] [place] [address] (ABNORMAL) POC GLUCOSE (06/20/2022 4:10 PM CDT) athologist Signature POC Glucose 133 (H) 70 - 100 [facility] mg/dL CAMPUS - POINT OF CARE Specimen (Source) Anatomical Collection Method Collection Time Re ceived Time Location / / Volume Laterality Blood 06/20/2022 4:10 PM CDT Kingston Castañeda MD LABORATORY Performing Organization Address [facility] Phon e Number [facility] - POINT OF CARE [address] [place] [address] XR ANKLE RIGHT 3 V AP/OBL/LAT* (06/20/2022 [...] U 0.34 0.30 - 0.70 [facility] IU/mL Specimen Anatomical Collection Method Collection Time Receive d Time (Source) Location / / Volume Laterality Blood 06/20/2022 12:14 06/20/2022 PM CDT 12:42 PM CDT Patrice Hollins MD LABORATORY Performing Organization Address [facility] Phon e Number [facility] [place] [address] (ABNORMAL) POC GLUCOSE (06/20/2022 12:06 PM CDT) athologist Signature POC Glucose 143 (H) 70 - 100 [facility] mg/dL CAMPUS - POINT OF CARE Specimen (Source) Anatomical Collection Method Collection Time Re ceived Time Location / / Volume Laterality Blood 06/20/2022 12:06 PM CDT Kingston Castañeda MD LABORATORY Performing Organization Address [facility] Phon e Number [facility] - POINT OF CARE [address] [place] [address] (ABNORMAL) POC GLUCOSE (06/20/2022 6:19 AM CDT) athologist Signature POC Glucose 126 (H) 70 - 100 [facility] mg/dL CAMPUS - POINT OF CARE Specimen (Source) Anatomical Collection Method Collection Time Re ceived Time Location / / Volume Laterality Blood 06/20/2022 6:19 AM CDT Kingston Castañeda MD LABORATORY Performing Organization Address [facility] Code Phon e Number [facility] - POINT OF CARE [address] [place] [address] ANTI XA HEPARIN UNFRACTIONATED (06/20/2022 5:57 AM CDT) athologist Signature Anti XA Hep U 0.42 0.30 - 0.70 [facility] IU/mL Specimen Anatomical Collection Method Collection Time Receive d Time (Source) Location / / Volume Laterality Blood 06/20/2022 5:57 AM 2 6:19 CDT AM CDT Patrice Hollins MD LABORATORY Performing Organization Address City/[facility]/ZIP Code Phon e Number [facility] [place] [address] (ABNORMAL) PANEL BASIC METABOLIC (BMP) (06/20/2022 5:57 AM CDT) athologist Signature CO2 26 22 - 30 [facility] mEq/L Glucose 146 (H) 70 - 100 [facility] mg/dL BUN 14 6 - 20 [facility] mg/dL Creatinine 0.63 (L) 0.70 - 1.25 [facility] mg/dL Calcium 8.4 (L) 8.6 - 10.0 [facility] mg/dL eGFR, High >120 >=60 [facility] ml/min/1.73 m2 Comment: Calculated using CKD-EPI equati on Sodium 139 135 - 148 mEq/L [facility] Potassium 3.8 3.5 - 5.3 mEq/L [facility] Chloride 103 92 - 108 mEq/L [facility] eGFR, Low 119 >=60 ml/min/1.73m2 [facility] Comment: Calculated using CKD-EPI equati on AnGap 10 8 - 16 mEq/L [facility] Specimen Anatomical Collection Method Collection Time Receive d Time (Source) Location / / Volume Laterality Blood 06/20/2022 5:57 AM 2 6:19 CDT AM CDT Patrice Hollins MD LABORATORY Performing Organization Address City/[facility]/ZIP Code Phon e Number [facility] [place] [address] (ABNORMAL) CBC WITH PLATELET (06/20/2022 5:57 AM CDT) athologist Signature WBC 7.23 4.00 - [facility] 10.00 k/cmm RBC 3.19 (L) 4.60 - 6.00 [facility] m/cmm Hgb 9.0 (L) 13.1 - 17.5 [facility] g/dL Hematocrit 27.0 (L) 40.0 - 51.0 [facility] % MCV 84.6 80.0 - [facility] 100.0 fL MCH 28.2 25.0 - 32.0 [facility] pg MCHC 33.3 31.0 - 36.0 [facility] g/dL RDW 13.1 11.5 - 14.5 [facility] % Plt 266 150 - 400 [facility] k/cmm MPV 10.1 6.5 - 12.5 [facility] fL Specimen Anatomical Collection Method Collection Time Receive d Time (Source) Location / / Volume Laterality Blood 06/20/2022 5:57 AM 2 6:19 CDT AM CDT Patrice Hollins MD LABORATORY Performing Organization Address City/[facility]/ZIP Code Phon e Number [facility] [place] [address] EXTRA TUBE - SST (06/20/2022 1:05 AM CDT) athologist Signature SST TUBE Stored [facility] Comment: SST tubes (Serum Separator) are stored in the lab for 3 days from the collection date. Specimen Anatomical Collection Method Collection Time Receive d Time (Source) Location / / Volume Laterality Blood 06/20/2022 1:05 AM 2 1:05 CDT AM CDT Kingston Castañeda MD LABORATORY Performing Organization Address City/[facility]/ZIP Code Phon e Number [facility] [place] [address] ANTI XA HEPARIN UNFRACTIONATED (06/20/2022 12:19 AM CDT) athologist Signature Anti XA Hep U 0.44 0.30 - 0.70 [facility] IU/mL Specimen Anatomical Collection Method Collection Time Receive d Time (Source) Location / / Volume Laterality Blood 06/20/2022 12:19 06/20/2022 1:07 AM CDT AM CDT Patrice Hollins MD LABORATORY Performing Organization Address City/[facility]/ZIP Code Phon e Number [facility] [place] [address] (ABNORMAL) POC GLUCOSE (06/19/2022 8:57 PM CDT) P athologist Signature POC Glucose 126 (H) 70 - 100 [facility] mg/dL CAMPUS - POINT OF CARE Specimen (Source) Anatomical Collection Method Collection Time Re ceived Time Location / / Volume Laterality Blood 06/19/2022 8:57 PM CDT Kingston Castañeda MD LABORATORY Performing Organization Address City/State/ZIP Code Phon e Number [facility] - POINT OF CARE [address] [place] [address] XR FOOT RIGHT 3 V AP/OBL/LAT* (06/19/2022 [...] U 0.25 (L) 0.30 - [facility] 0.70 IU/mL Specimen Anatomical Collection Method Collection Time Receive d Time (Source) Location / / Volume Laterality Blood 06/19/2022 5:27 PM 6:07 CDT PM CDT Patrice Hollins MD LABORATORY Performing Organization Address City/[facility]/ZIP Code Phon e Number [facility] [place] [address] (ABNORMAL) POC GLUCOSE (06/19/2022 4:01 PM CDT) athologist Signature POC Glucose 159 (H) 70 - 100 [facility] mg/dL CAMPUS - POINT OF CARE Specimen (Source) Anatomical Collection Method Collection Time Re ceived Time Location / / Volume Laterality Blood 06/19/2022 4:01 PM CDT Kingston Castañeda MD LABORATORY Performing Organization Address City/[facility]/ZIP Code Phon e Number [facility] - POINT OF CARE [address] [place] [phone] ANTI XA HEPARIN UNFRACTIONATED (06/19/2022 12:51 PM CDT) athologist Signature Anti XA Hep U 0.34 0.30 - 0.70 [facility] IU/mL Specimen Anatomical Collection Method Collection Time Receive d Time (Source) Location / / Volume Laterality Blood 06/19/2022 12:51 06/19/2022 PM CDT 12:59 PM CDT Patrice Hollins MD LABORATORY Performing Organization Address City/[facility] Phon e Number [facility] [place] [address] PELVIS 3D RECONSTRUCTION (06/19/2022 11:49 [...] lumbar spine. Procedure Note Rizwan Cunningham V., [facility] - 06/19/2022Form atting of this note might [...] POC Glucose 128 (H) 70 - 100 [facility] mg/dL CAMPUS - POINT OF CARE Specimen (Source) Anatomical Collection Method Collection Time Re ceived Time Location / / Volume Laterality Blood 06/19/2022 11:19 AM CDT Kingston Castañeda MD LABORATORY Performing Organization Address City/State/ZIP Code Phon e Number [facility] - POINT OF CARE [address] [place] [address] CT UROGRAM (06/19/2022 11:05 AM CDT) Anatomical [...] 135 (H) 70 - 100 [facility] mg/dL CAMPUS - POINT OF CARE Specimen (Source) Anatomical Collection Method Collection Time Re ceived Time Location / / Volume Laterality Blood 06/19/2022 6:03 AM CDT Kingston Castañeda MD LABORATORY Performing Organization Address City/State/ZIP Code Phon e Number [facility] [place] - POINT OF CARE [address] [place] [phone] (ABNORMAL) ANTI XA HEPARIN UNFRACTIONATED (06/19/2022 5:15 AM CDT) Analysis Performed At Patho logist Time [facility] Anti XA Hep U <0.04 (L) 0.30 - [facility] 0.70 IU/mL Specimen Anatomical Collection Method Collection Time Receive d Time (Source) Location / / Volume Laterality Blood 06/19/2022 5:15 AM 2 6:21 CDT AM CDT Patrice Hollins MD LABORATORY Performing Organization Address City/State/ZIP Code Phon e Number [facility] [place] [address] (ABNORMAL) PANEL BASIC METABOLIC (BMP) (06/19/2022 5:15 AM CDT) athologist Signature CO2 24 22 - 30 [facility] mEq/L Glucose 140 (H) 70 - 100 [facility] mg/dL BUN 12 6 - 20 [facility] mg/dL Creatinine 0.61 (L) 0.70 - 1.25 [facility] mg/dL Calcium 8.4 (L) 8.6 - 10.0 [facility] mg/dL eGFR, High >120 >=60 [facility] ml/min/1.73 m2 Comment: Calculated using CKD-EPI equati on Sodium 139 135 - 148 mEq/L [facility] Potassium 4.5 3.5 - 5.3 mEq/L [facility] Chloride 104 92 - 108 mEq/L [facility] eGFR, Low >120 >=60 ml/min/1.73m2 [facility] Comment: Calculated using CKD-EPI equati on AnGap 11 8 - 16 mEq/L [facility] Specimen Anatomical Collection Method Collection Time Receive d Time (Source) Location / / Volume Laterality Blood 06/19/2022 5:15 AM 2 6:21 CDT AM CDT Patrice Hollins MD LABORATORY Performing Organization Address City/[facility] Phon e Number [facility] [place] [address] (ABNORMAL) CBC WITH PLATELET (06/19/2022 5:15 AM CDT) P athologist Signature WBC 4.92 4.00 - [facility] 10.00 k/cmm RBC 3.30 (L) 4.60 - 6.00 [facility] m/cmm Hgb 9.4 (L) 13.1 - 17.5 [facility] g/dL Hematocrit 28.0 (L) 40.0 - 51.0 [facility] % MCV 84.8 80.0 - [facility] 100.0 fL MCH 28.5 25.0 - 32.0 [facility] pg MCHC 33.6 31.0 - 36.0 [facility] g/dL RDW 12.8 11.5 - 14.5 [facility] % Plt 227 150 - 400 [facility] k/cmm MPV 10.7 6.5 - 12.5 [facility] fL Specimen Anatomical Collection Method Collection Time Receive d Time (Source) Location / / Volume Laterality Blood 06/19/2022 5:15 AM 2 6:21 CDT AM CDT Patrice Hollins MD LABORATORY Performing Organization Address City/[facility] Phon e Number [facility] [place] [address] (ABNORMAL) ANTI XA HEPARIN UNFRACTIONATED (06/18/2022 11:59 PM CDT) Analysis Performed At Patho logist Time Signature Anti XA Hep U <0.04 (L) 0.30 - [facility] 0.70 IU/mL Specimen Anatomical Collection Method Collection Time Receive d Time (Source) Location / / Volume Laterality Blood 06/18/2022 11:59 06/18/2022 PM CDT 11:59 PM CDT Narrative [facility] - 06/19/2022 12:35 AM CDT Baseline Patrice Hollins MD LABORATORY Performing Organization Address City/[facility] Code Phon e Number [facility] [place] [address] (ABNORMAL) POC GLUCOSE (06/18/2022 9:13 PM CDT) athologist Signature POC Glucose 127 (H) 70 - 100 [facility] mg/dL CAMPUS - POINT OF CARE Specimen (Source) Anatomical Collection Method Collection Time Re ceived Time Location / / Volume Laterality Blood 06/18/2022 9:13 PM CDT Kingston Castañeda MD LABORATORY Performing Organization Address City/[facility] Code Phon e Number [facility] - POINT OF CARE [address] [place] [phone] (ABNORMAL) POC GLUCOSE (06/18/2022 7:03 PM CDT) athologist Signature POC Glucose 147 (H) 70 - 100 [facility] mg/dL CAMPUS - POINT OF CARE Specimen (Source) Anatomical Collection Method Collection Time Re ceived Time Location / / Volume Laterality Blood 06/18/2022 7:03 PM CDT Kingston Castañeda MD LABORATORY Performing Organization Address [facility] Phon e Number [facility] - POINT OF CARE [address] [place] [phone] XR C ARM OVER 3 HRS (06/18/2022 [...] Signature POC Glucose 98 70 - 100 [facility] mg/dL CAMPUS - POINT OF CARE Specimen (Source) Anatomical Collection Method Collection Time Re ceived Time Location / / Volume Laterality Blood 06/18/2022 4:15 PM CDT Kingston Castañeda MD LABORATORY Performing Organization Address City/State/ZIP Code Phon e Number [facility] - POINT OF CARE [address] [place] [address] .Post Sedation Immediate (06/18/2022 12:23 PM CDT) [...] the needle into the IVC. A 5 Khmer pigtail flush catheter was advanced over the [...] the needle into the IVC. A 5 Khmer pigtail flush catheter was advanc ed over [...] POC Glucose 109 (H) 70 - 100 [facility] mg/dL CAMPUS - POINT OF CARE Specimen (Source) Anatomical Collection Method Collection Time Re ceived Time Location / / Volume Laterality Blood 06/18/2022 11:21 AM CDT Kingston Castañeda MD LABORATORY Performing Organization Address City/[facility]/ZIP Code Phon e Number [facility] - POINT OF CARE [address] [place] [phone] (ABNORMAL) ANTI XA HEPARIN UNFRACTIONATED (06/18/2022 10:27 AM CDT) Analysis Performed At Patho logist Time Signature Anti XA Hep U <0.04 (L) 0.30 - [facility] [facility] 0.70 IU/mL Specimen Anatomical Collection Method Collection Time Receive d Time (Source) Location / / Volume Laterality Blood 06/18/2022 10:27 06/18/2022 AM CDT 10:32 AM CDT Patrice Hollins MD LABORATORY Performing Organization Address City/[facility]/ZIP Code Phon e Number [facility] [place] [address] XR URETHROGRAM RETROGRADE (06/18/2022 9:14 AM [...] was unremarkable. No extravasatio n was demonstrated. Process Supervisor: Kirby Complications: None Fluoroscopy time: 22 [...] urethra was unremarkable. No extravasation was demonstrated. Process Supervisor: Kirby Complications: None Fluoroscopy time: 22 seconds Dose: 12 mGy IMPRESSION IMPRESSION: No evidence for anterior ure thral injury. Reading Radiologist: Mario Orr Patrice Hollins MD FLUORO (ABNORMAL) POC GLUCOSE (06/18/2022 6:26 AM CDT) athologist Signature POC Glucose 125 (H) 70 - 100 [facility] mg/dL CAMPUS - POINT OF CARE Specimen (Source) Anatomical Collection Method Collection Time Re ceived Time Location / / Volume Laterality Blood 06/18/2022 6:26 AM CDT Kingston Castañeda MD LABORATORY Performing Organization Address City/[facility] Phon e Number [facility]ARE [address] [place] [address] (ABNORMAL) ANTI XA HEPARIN UNFRACTIONATED (06/18/2022 4:50 AM CDT) Analysis Performed At Patho logist Time Signature Anti XA Hep U <0.04 (L) 0.30 - [facility] 0.70 IU/mL Specimen Anatomical Collection Method Collection Time Receive d Time (Source) Location / / Volume Laterality Blood 06/18/2022 4:50 AM 5:11 CDT AM CDT Patrice Hollins MD LABORATORY Performing Organization Address City/State/[facility] [place] [address] (ABNORMAL) PANEL BASIC METABOLIC (BMP) (06/18/2022 4:50 AM CDT) athologist Signature CO2 23 22 - 30 [facility] mEq/L Glucose 137 (H) 70 - 100 [facility] mg/dL BUN 12 6 - 20 [facility] mg/dL Creatinine 0.66 (L) 0.70 - 1.25 [facility] mg/dL Calcium 8.3 (L) 8.6 - 10.0 [facility] mg/dL eGFR, High >120 >=60 [facility] ml/min/1.73 m2 Comment: Calculated using CKD-EPI equati on Sodium 137 135 - 148 mEq/L [facility] Potassium 3.8 3.5 - 5.3 mEq/L [facility] Chloride 105 92 - 108 mEq/L [facility] eGFR, Low 117 >=60 ml/min/1.73m2 [facility] Comment: Calculated using CKD-EPI equati on AnGap 9 8 - 16 mEq/L [facility] Specimen Anatomical Collection Method Collection Time Receive d Time (Source) Location / / Volume Laterality Blood 06/18/2022 4:50 AM 5:11 CDT AM CDT Patrice Hollins MD LABORATORY Performing Organization Address City/[facility]/ZIP Code [place] [address] (ABNORMAL) CBC WITH PLATELET (06/18/2022 4:50 AM CDT) athologist Signature WBC 7.80 4.00 - [facility] 10.00 k/cmm RBC 3.37 (L) 4.60 - 6.00 [facility] m/cmm Hgb 9.6 (L) 13.1 - 17.5 [facility] g/dL Hematocrit 28.8 (L) 40.0 - 51.0 [facility] % MCV 85.5 80.0 - [facility] 100.0 fL MCH 28.5 25.0 - 32.0 [facility] pg MCHC 33.3 31.0 - 36.0 [facility] g/dL RDW 13.3 11.5 - 14.5 [facility] % Plt 191 150 - 400 [facility] k/cmm MPV 10.2 6.5 - 12.5 [facility] fL Specimen Anatomical Collection Method Collection Time Receive d Time (Source) Location / / Volume Laterality Blood 06/18/2022 4:50 AM 5:11 CDT AM CDT Patrice Hollins MD LABORATORY Performing Organization Address City/[facility]/ZIP Code Phon e Number [facility] [place] [address] (ABNORMAL) ANTI XA HEPARIN UNFRACTIONATED (06/17/2022 10:34 PM CDT) athologist Signature Anti XA Hep U 0.22 (L) 0.30 - [facility] 0.70 IU/mL Specimen Anatomical Collection Method Collection Time Receive d Time (Source) Location / / Volume Laterality Blood 06/17/2022 10:34 06/17/2022 PM CDT 11:12 PM CDT Patrice Hollins MD LABORATORY Performing Organization Address City/[facility] Phon e Number [facility] [place] [address] (ABNORMAL) POC GLUCOSE (06/17/2022 8:43 PM CDT) athologist Signature POC Glucose 132 (H) 70 - 100 [facility] mg/dL CAMPUS - POINT OF CARE Specimen (Source) Anatomical Collection Method Collection Time Re ceived Time Location / / Volume Laterality Blood 06/17/2022 8:43 PM CDT Kingston Castañeda MD LABORATORY Performing Organization Address City/State/ZIP Code Phon e Number [facility]INT [facility] CARE [address] [place] [address] (ABNORMAL) POC GLUCOSE (06/17/2022 3:57 PM CDT) athologist Signature POC Glucose 169 (H) 70 - 100 [facility] mg/dL CAMPUS - POINT OF CARE Specimen (Source) Anatomical Collection Method Collection Time Re ceived Time Location / / Volume Laterality Blood 06/17/2022 3:57 PM CDT Kingston Castañeda MD LABORATORY Performing Organization Address City/State/ZIP Code Phon e Number [facility] - POINT OF CARE [address] [place] [address] ULT VENOUS LOWER EXTREMITY BILAT (06/17/2022 3:35 [...] reported to referring provider Nisha Guadalupe via [employer], who responded indicating that the communication was [...] reported to referring provider Nisha Guadalupe via [employer], who responded indicating that the communication was understood. Contact was made at the time of interpretation on 06/17/2022 3:37 PM, wit hin 5 minutes of observation. Reading Radiologist: Lenny Callahan Meredith Guadalupe BUSINESS INTELLIGENCE ADMINISTRATOR, CARE DIRECTOR RN ULT (ABNORMAL) POC GLUCOSE (06/17/2022 11:54 AM CDT) athologist Signature POC Glucose 102 (H) 70 - 100 [facility] mg/dL CAMPUS - POINT OF CARE Specimen (Source) Anatomical Collection Method Collection Time Re ceived Time Location / / Volume Laterality Blood 06/17/2022 11:54 AM CDT Kingston Castañeda MD LABORATORY Performing Organization Address City/State/ZIP Code Phon e Number [facility] CARE [address] [place] [address] ANTIBODY SCREEN (06/17/2022 11:46 AM CDT) athologist Signature Sabrina Screen Negative [facility] Specimen Anatomical Collection Method Collection Time Receive d Time (Source) Location / / Volume Laterality Blood 06/17/2022 11:46 06/17/2022 AM CDT 12:06 PM CDT Patrice Hollins MD LAB TRANSFUSION SERVICES Performing Organization Address City/[facility] Code Phon e Number [facility] [place] [address] BLOOD TYPING-ABO/RH (06/17/2022 11:46 AM CDT) athologist Signature ABORHG A POS [facility] Specimen Anatomical Collection Method Collection Time Receive d Time (Source) Location / / Volume Laterality Blood 06/17/2022 11:46 06/17/2022 AM CDT 12:06 PM CDT Patrice Hollins MD LAB TRANSFUSION SERVICES Performing Organization Address City/[facility] Phon e Number [facility] [place] [address] POC GLUCOSE (06/17/2022 6:53 AM CDT) athologist Signature POC Glucose 88 70 - 100 [facility] mg/dL CAMPUS - POINT OF CARE Specimen (Source) Anatomical Collection Method Collection Time Re ceived Time Location / / Volume Laterality Blood 06/17/2022 6:53 AM CDT Kingston Castañeda MD LABORATORY Performing Organization Address City/[facility] Code Phon e Number [facility] CARE [address] [place] [address] (ABNORMAL) POC GLUCOSE (06/17/2022 6:51 AM CDT) athologist Signature POC Glucose 20 (LL) 70 - 100 [facility] mg/dL CAMPUS - POINT OF CARE Specimen (Source) Anatomical Collection Method Collection Time Re ceived Time Location / / Volume Laterality Blood 06/17/2022 6:51 AM CDT Kingston Castañeda MD LABORATORY Performing Organization Address City/[facility] Phon e Number [facility] CARE [address] [place] [phone] (ABNORMAL) PANEL BASIC METABOLIC (BMP) (06/17/2022 5:07 AM CDT) athologist Signature CO2 23 22 - 30 [facility] mEq/L Glucose 118 (H) 70 - 100 [facility] mg/dL BUN 13 6 - 20 [facility] mg/dL Creatinine 0.82 0.70 - 1.25 [facility] mg/dL Calcium 8.1 (L) 8.6 - 10.0 [facility] mg/dL eGFR, High >120 >=60 [facility] ml/min/1.73 m2 Comment: Calculated using CKD-EPI equati on Sodium 137 135 - 148 mEq/L [facility] Potassium 3.6 3.5 - 5.3 mEq/L [facility] Chloride 105 92 - 108 mEq/L [facility] eGFR, Low 107 >=60 ml/min/1.73m2 [facility] Comment: Calculated using CKD-EPI equati on AnGap 9 8 - 16 mEq/L [facility] Specimen Anatomical Collection Method Collection Time Receive d Time (Source) Location / / Volume Laterality Blood 06/17/2022 5:07 AM 2 5:37 CDT AM CDT Kingston Castañeda MD LABORATORY Performing Organization Address City/[facility] Phon e Number [facility] [place] [address] (ABNORMAL) CBC WITH PLATELET (06/17/2022 5:07 AM CDT) P athologist Signature WBC 7.32 4.00 - [facility] 10.00 k/cmm RBC 3.43 (L) 4.60 - 6.00 [facility] m/cmm Hgb 9.8 (L) 13.1 - 17.5 [facility] g/dL Hematocrit 29.4 (L) 40.0 - 51.0 [facility] % MCV 85.7 80.0 - [facility] 100.0 fL MCH 28.6 25.0 - 32.0 [facility] pg MCHC 33.3 31.0 - 36.0 [facility] g/dL RDW 13.3 11.5 - 14.5 [facility] % Plt 181 150 - 400 [facility] k/cmm MPV 10.1 6.5 - 12.5 [facility] fL Specimen Anatomical Collection Method Collection Time Receive d Time (Source) Location / / Volume Laterality Blood 06/17/2022 5:07 AM 2 5:36 CDT AM CDT Kingston Castañeda MD LABORATORY Performing Organization Address City/[facility]/ZIP Code Phon e Number [facility] [place] [address] (ABNORMAL) POC GLUCOSE (06/16/2022 9:14 PM CDT) P athologist Signature POC Glucose 149 (H) 70 - 100 [facility] mg/dL CAMPUS - POINT OF CARE Specimen (Source) Anatomical Collection Method Collection Time Re ceived Time Location / / Volume Laterality Blood 06/16/2022 9:14 PM CDT Kingston Castañeda MD LABORATORY Performing Organization Address City/State/ZIP Code Phon e Number [facility] - POINT OF CARE [address] [place] [address] XR WRIST RIGHT 3+ PA/OB/LAT/JENS* (06/16/2022 6:58 [...] radius. Reading Radiologist: Indio Cadena Yaritza Gallegos BUSINESS INTELLIGENCE ADMINISTRATOR, CARE DIRECTOR RN X-RAY POC GLUCOSE (06/16/2022 6:05 PM CDT) athologist Signature POC Glucose 73 70 - 100 [facility] mg/dL CAMPUS - POINT OF CARE Specimen (Source) Anatomical Collection Method Collection Time Re ceived Time Location / / Volume Laterality Blood 06/16/2022 6:05 PM CDT Kingston Castañeda MD LABORATORY Performing Organization Address [facility] Phon e Number [facility] - POINT OF CARE [address] [place] [address] POC GLUCOSE (06/16/2022 12:47 PM CDT) P athologist Signature POC Glucose 95 70 - 100 [facility] mg/dL CAMPUS - POINT OF CARE Specimen (Source) Anatomical Collection Method Collection Time Re ceived Time Location / / Volume Laterality Blood 06/16/2022 12:47 PM CDT Kingston Castañeda MD LABORATORY Performing Organization Address [facility] Phon e Number [facility] - POINT OF CARE [address] [place] [address] XR PELVIS 5V AP/IN/OUTLET/JUDET* (06/16/2022 12:19 PM [...] 06/15/2022. Fluoroscopy time: ??22 seconds Dose:12 mGy Holden protocol was followed. ?? Technique: The patient [...] 06/15/2022. Fluoroscopy time: 22 seconds Dose:12 mGy Holden protocol was followed. Technique: The patient arrived [...] Lactate 0.7 0.7 - 2.1 [facility] mmol/L Specimen Anatomical Collection Method Collection Time Receive d Time (Source) Location / / Volume Laterality Blood 06/16/2022 2:20 AM 2 2:47 CDT AM CDT Narrative [facility] - 06/16/2022 3:06 AM CDT Send specimen on ice! Gideon Dyer MD LABORATORY Performing Organization Address City/State/ZIP Code Phon e Number [facility] [address] (ABNORMAL) URINALYSIS,TOTAL (06/16/2022 12:20 AM CDT) [facility] gist Method Time Signature Color YELLOW YELLOW [facility] Appearance CLEAR CLEAR [facility] Urine Glucose NEGATIVE NEGATIVE [facility] mg/dL Bili UA NEGATIVE NEGATIVE [facility] Ketones TRACE (A) NEGATIVE [facility] mg/dL Blood Ur NEGATIVE Neg-Trace [facility] PH Urine 5.5 5.0 - 7.0 [facility] Protein Ur TRACE Neg-Trace [facility] mg/dL Urobilinogen NORMAL NORMAL EU/dL [facility] Nitrite Ur NEGATIVE NEGATIVE [facility] Leuk Est NEGATIVE Neg-Trace [facility] WBC Ur 6-10 (A) 0 - 5 perHPF [facility] RBC Ur 11-20 (A) 0 - 3 perHPF [facility] SQ EPITH 0-5 0 - 5 perHPF [facility] Mucus 1+ perLPF [facility] Sperm PRESENT [facility] Bacteria UA PRESENT [facility] Comment: Presence of bacteria does not n ecessarily indicate a UTI. The presence of bacteria can indicate a non-clean catch urine specimen. Bacteria should be used in conjunction with other UA results and cl inical presentation to assist in diagnosing an infection. Urinalysis Performed at: [facility] Specific [place] 1.010 1.003 - 1.030 [facility] Specimen Anatomical Collection Method Collection Time Receive d Time (Source) Location / / Volume Laterality Urine 06/16/2022 12:20 06/16/2022 AM CDT 12:39 AM CDT Gideon Dyer MD LABORATORY Performing Organization Address City/State/ZIP Code Phon e Number [facility] [place] [address] [place] [address] [facility] XR PELVIS AP* (06/15/2022 11:21 PM [...] canal or neural foraminal stenosis. 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 Reading Radiologist: Stephany [...] visualized paraspi nous tissues is noted. Suspected Pokagon syndrome on left. Procedure Note Stephany Granda [...] visualized paraspi nous tissues is noted. Suspected Pokagon syndrome on left. IMPRESSION Impression: 1. No fracture or subluxation of the cer vical vertebrae. 2. No significant spinal canal or neural foraminal stenosis. 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 Reading Radiologist: Stephany [...] styloid process, which can be seen in Pokagon syndrome. The visualized portions of the paranasal [...] styloid process, which can be seen in Pokagon syndrome. The visualized portions of the paranasal [...] CDT) P athologist Signature CASTAÑEDA TUBE Stored [facility] Comment: Castañeda top (Sodium flouride) tube s are stored in the lab for 3 days from the collection date. Specimen Anatomical Collection Method Collection Time Receive d Time (Source) Location / / Volume Laterality Blood 06/15/2022 7:20 PM 7:31 CDT PM CDT Kingston Castañeda MD LABORATORY Performing Organization Address City/State/ZIP Code Phon e Number [facility] [place] [address] EXTRA TUBE - SST (06/15/2022 7:20 PM CDT) P athologist Signature SST TUBE Stored [facility] Comment: SST tubes (Serum Separator) are stored in the lab for 3 days from the collection date. Specimen Anatomical Collection Method Collection Time Receive d Time (Source) Location / / Volume Laterality Blood 06/15/2022 7:20 PM 2 7:31 CDT PM CDT Kingston Castañeda MD LABORATORY Performing Organization Address City/[facility]/ZIP Code Phon e Number [facility] [place] [address] HS TROPONIN (06/15/2022 7:20 PM CDT) athologist Signature HS Troponin I 4 <=34 ng/L [facility] Specimen Anatomical Collection Method Collection Time Receive d Time (Source) Location / / Volume Laterality Blood 06/15/2022 7:20 PM 2 7:41 CDT PM CDT Narrative [facility] - 06/15/2022 8:11 PM CDT First Occurrence of the Troponin order i s to be drawn Stat by Nursing staff on the unit. Gideon Dyer MD LABORATORY Performing Organization Address [facility]/ZIP Code Phon e Number [facility] [place] [address] (ABNORMAL) PTT (APTT) (06/15/2022 7:20 PM CDT) athologist Signature APTT 21.4 (L) 25.0 - 37.0 [facility] sec Specimen Anatomical Collection Method Collection Time Receive d Time (Source) Location / / Volume Laterality Blood 06/15/2022 7:20 PM 2 7:41 CDT PM CDT Gideon Dyer MD LABORATORY Performing Organization Address City/[facility]/ZIP Code Phon e Number [facility] [place] [address] PROTHROMBIN (PT) & INR (06/15/2022 7:20 PM CDT) athologist Signature PT 11.9 9.0 - 12.5 [facility] sec INR 1.0 0.8 - 1.1 [facility] Specimen Anatomical Collection Method Collection Time Receive d Time (Source) Location / / Volume Laterality Blood 06/15/2022 7:20 PM 2 7:41 CDT PM CDT Gideon Dyer MD LABORATORY Performing Organization Address City/[facility]/ZIP Code Phon e Number [facility] [place] [address] COVID-19 SURVEILLANCE (06/15/2022 7:20 PM CDT) [facility] Method Time Signature COVID-19 Not Detected Not Detected [facility] Comment: This test was developed and its performa nce characteristics determined by [facility] [employer]. This testing, RT-PCR, has been authorized by [...] 06/15 PM CDT 7:32 PM CDT Narrative [facility] - 06/15/2022 8:08 PM CDT Preferred specimen is Nasopharyngeal swab Is the patient a healthcare employee: No Is the patient a [place] ([facility]) Employee : No Gideon Dyer MD LABORATORY Performing Organization Address City/[facility] Code Phon e Number [facility] [place] [address] PRECAUTIONARY TUBE (06/15/2022 7:20 PM CDT) [facility] Method Time Signature Prec Tube Precautionary [facility] Blood Bank Specimen Received. Specimen Anatomical Collection Method Collection Time Receive d Time (Source) Location / / Volume Laterality Blood 06/15/2022 7:20 PM 7:43 CDT PM CDT Gideon Dyer MD LAB TRANSFUSION SERVICES Performing Organization Address City/State/ZIP Code Phon e Number [facility] [place] [address] LACTATE (LACTIC ACID) (06/15/2022 7:20 PM CDT) athologist Signature Lactate 1.4 0.7 - 2.1 [facility] mmol/L Specimen Anatomical Collection Method Collection Time Receive d Time (Source) Location / / Volume Laterality Blood 06/15/2022 7:20 PM 2 7:30 CDT PM CDT Narrative [facility] - 06/15/2022 7:30 PM CDT Send specimen on ice! Gideon Dyer MD LABORATORY Performing Organization Address City/[facility]/ZIP Code Phon e Number [facility] [place] [address] (ABNORMAL) FIBRINOGEN (06/15/2022 7:20 PM CDT) athologist Signature Fibrinogen 199 (L) 200 - 400 [facility] mg/dL Specimen Anatomical Collection Method Collection Time Receive d Time (Source) Location / / Volume Laterality Blood 06/15/2022 7:20 PM 2 7:41 CDT PM CDT Gideon Dyer MD LABORATORY Performing Organization Address City/State/ZIP Code Phon e Number [facility] [place] [address] ED HEMOGLOBIN TOTAL (ED ONLY) (06/15/2022 7:20 PM CDT) athologist Signature Hgb 13.7 13.1 - 17.5 [facility] g/dL Specimen Anatomical Collection Method Collection Time Receive d Time (Source) Location / / Volume Laterality Blood 06/15/2022 7:20 PM 2 7:30 CDT PM CDT Gideon Dyer MD LABORATORY Performing Organization Address City/State/ZIP Code Phon e Number [facility] [place] [address] (ABNORMAL) ED CHEMISTRY LABS(NA,K,CL,CO2,GLU,CREAT,CA-IONIZED,ANION GAP) (06/15/2022 7:20 PM CDT) Analysis Performed At Patho logist Time Signature Sodium 140 135 - 148 [facility] mEq/L Chloride 109 (H) 92 - 108 [facility] mEq/L AnGap 8 8 - 16 [facility] mEq/L Glucose 186 (H) 70 - 100 [facility] mg/dL ICA, Actual 4.44 4.40 - [facility] 5.20 mg/dL ICA, pH 4.28 (L) 4.40 - [facility] Corrected 5.20 mg/dL Creatinine 1.00 0.70 - [facility] 1.25 mg/dL BICARB 24 22 - 26 [facility] mEq/L eGFR, High 105 >=60 [facility] ml/min/1.7 3m2 Comment: Calculated using CKD-EPI equati on eGFR, Low 90 >=60 ml/min/1.73m2 [facility] Comment: Calculated using CKD-EPI equati on Potassium 3.6 3.5 - 5.3 mEq/L [facility] Specimen Anatomical Collection Method Collection Time Receive d Time (Source) Location / / Volume Laterality Blood 06/15/2022 7:20 PM 7:30 CDT PM CDT Gideon Dyer MD LABORATORY Performing Organization Address City/State/ZIP Code Phon e Number [facility] [place] [id number] [place] [address] (ABNORMAL) CBC WITH PLTS/AUTO DIFF (06/15/2022 7:20 PM CDT) Patholo gist Method Time Signature WBC 14.21 (H) 4.00 - [facility] 10.00 k/cmm RBC 4.65 4.60 - [facility] 6.00 m/cmm Hgb 13.0 (L) 13.1 - [facility] 17.5 g/dL Hematocrit 39.7 (L) 40.0 - [facility] 51.0 % MCV 85.4 80.0 - [facility] 100.0 fL MCH 28.0 25.0 - [facility] 32.0 pg MCHC 32.7 31.0 - [facility] 36.0 g/dL RDW 13.2 11.5 - [facility] 14.5 % Plt 294 150 - 400 [facility] k/cmm MPV 10.6 6.5 - 12.5 [facility] fL Automated Abs 10.31 (H) 1.70 - [facility] Neutrophil 6.50 k/cmm Comment: Preliminary ANC, Final Result t o Follow Abs Immature Granulocyte 0.26 (H) 0.00 - 0.09 k/cmm [facility] Comment: The Immature Granulocyte Absolu te count contains metamyelocytes and myelocytes. Abs Neutrophil 10.31 (H) 1.70 - 6.50 k/cmm [facility] B Abs Lymphocyte 2.74 0.80 - 4.00 k/cmm [facility] B Abs Monocyte 0.67 0.20 - 1.00 k/cmm [facility] Abs Eosinophil 0.20 0.00 - 0.60 k/cmm [facility] B Abs Basophil 0.03 0.00 - 0.20 k/cmm [facility] Specimen Anatomical Collection Method Collection Time Receive d Time (Source) Location / / Volume Laterality Blood 06/15/2022 7:20 PM 2 7:41 CDT PM CDT Gideon Dyer MD LABORATORY Performing Organization Address City/State/ZIP Code Phon e Number [facility] [place] [address] BLOOD GASES (06/15/2022 7:20 PM CDT) P athologist Signature PH Anish 7.33 7.32 - 7.42 [facility] PCO2 Anish 46 41 - 51 [facility] mmHG PO2 Anish 35 25 - 40 [facility] mmHG Bicarb Anish 24 24 - 28 [facility] mEq/L O2 Sat Anish 62 % [facility] Base Exc Anish -2.9 -10.0 - 2.0 [facility] mEq/L Specimen Anatomical Collection Method Collection Time Receive d Time (Source) Location / / Volume Laterality Blood Venous 06/15/2022 7:20 PM 2 7:30 CDT PM CDT Gideon Dyer MD LABORATORY Performing Organization Address City/State/ZIP Code Phon e Number [facility] [place] [address] ED US CRITICAL CARE (06/15/2022 7:16 [...] Given 06/26/2022 8:37 PM CDT 5 mg [employer] MED REC REVIEW BY PHARMACY Discharge Date: [...] THAN 501: 7 units and call provider, Vik, TID AC, First dose on Thu06/16/22 at [...] RN) 0827 (Given - Provider: Vargas hollis, RASHEL)1351 (Given - Provider: Vargas Whitman RN)203 (Given - Provider: Shanice Nieves RN) 0923 (Given - Provider: Vargas hollis RN)1442 (Given - Provider: Vargas Whitman RN) 975 mg, Oral, TID, First dose on 06/16/22 at 0800, Until Disc ontinued ceFAZolin (ANCEF) IVPB 2 g (COMPLETED) 1233 (New Bag - Provider: Leonides Wynn, RN)1303 (Infusion completed - Provider: Vargas Whitman, RASHEL) 2 g, Indication (Select One): Prophylaxi s - Surgical, Intravenous, Q 8H, 1 dose, First dose on Thu06/25/22 at 1115 cyclobenzaprine (FLEXERIL) tablet 5 mg 0752 (Given - P rovider: Vargas Whitman RN)1356 (Given - Provider: Vargas Whitman RN)194 (Given - Provider: Elva Adamson, RASHEL) 08 (Given - Provider: Vargas hollis, RASHEL)135 (Given - Provider: Vargas Whitman RN)2036 (Given [...] 194 (Given - Provider: Elva Adamson, RASHEL) 08 (Given - Provider: Vargas hollis RN)2035 [...] hollis RN)1351 (Given - Provider: Vargas Whitman RN)2037 (Given [...] Given (removes Due time) - Provider: Shanice Nieves, RASHEL - Reason: Per protocol) Glucose 201-250: 0 [...] RN) 921 (Given - Provider: Vargas hollis, RASHEL) 30 [...] on Mo n 06/16/22 at 0944, Until 06/27/22 at 2104, Constipation (Use Second) FLEET enema 118 mL 118 mL (1 enema), Rectal, ONE TIME PRN, 1 dose, Starting on 06/23/22 at 1335, Until Thu06/27/22 at 2104, Constipation (Use Second) HYDROmorphone PF (DILAUDID) 1 mg/mL injection 0.5 mg ( CANCELED) 0248 (Given - Provider: Peace Waite, RN)0657 (Given - Provider: Peace Waite, RN)1210 (Given - Provider: Vargas Whitman RN)1529 [...] Provider: Roger Fall RN)0936 (Given - Provider: Vragas Whitman RN)1355 (Given - Provider: Vargas Wihtman RN)1747 (Given - Provider: Elva Adamson RN) 0249 (Given - Provider: Shanice Nieves RN)0957 [...]
--- OUTSIDE RECORDS SUMMARY | 2022-07-23 20:37 | XMS_ITS | Encounter Summary ---
:1975 Author Organization [facility] Address [address] [facility] [place] [address] Phone Care Team Providers Name Role Phone Unavailable Primary Care Provider Unavailable Reason for Visit Reason Comments Wound Encounter Details Date Type Department Care Team Description 05/24/2007 Nurse Only [facility] Burn/Wound Clin ic Joce Mason MD 701 [facility] Mail Code P5 [place] [address] Open Wound of Arm [address] [place] [address], [facility] Nurse [address] (Primary Dx) P4.670 [place], [place] [address] Social History Tobacco Use Types [...] Appointment RADIOLOGY Patrice Hollins MD [address] [address] Scheduled 1, Isd-Burkin[place] 701 [place] [address] 07/25/2022 Office Visit NEUROSURGERY Briana Kaplan PA -C [address] [place] [address] Scheduled 1, Isd-Burkin[place] 701 [place] [address] 07/25/2022 Appointment PHYSICAL MEDICINE AND REHAB Lore Aguilar, PT Scheduled [address] [place] [address] (Wo rk) 08/05/2022 Appointment ORTHOPEDICS 1, Isd-Burkinan Scheduled 701 [place] [address] 08/05/2022 Appointment RADIOLOGY Roosevelt Brown MD [address] [place] [address] Scheduled 1, Isd-Burkin[place] 701 [place] [address] 08/05/2022 Appointment RADIOLOGY Roosevelt Brown MD [address] [place] [address] Scheduled 1, Isd-Burkin[place] 701 [place] [address] 08/05/2022 Office Visit ORTHOPEDICS Roosevelt Brown MD [address] [place] [address] Scheduled 1, Isd-Burkinan 701 [place] [address] 08/20/2022 Office Visit Interventional Radiology Provider, Hesham haq Scheduled 1, Isd-Burkinan 701 [place] [address] 08/21/2022 Office Visit MEDICINE Naomie Bal MBBS 701 [place] [address] Scheduled 1, Isd-[place]kin[place] [address] [place] [address] documented as of this encounter Visit Diagnoses Diagnosis Open wound of arm - Primary Multiple and unspecified open wound of u pper limb, without mention of complication documented in this encounter
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
--- OUTSIDE RECORDS SUMMARY | 2022-07-23 20:37 | XMS_ITS | Encounter Summary ---
:1975 Author Organization [facility] Address [address] [place] [address] Phone Care Team Providers Name Role Phone Unavailable Primary Care Provider Unavailable Reason for Visit Reason Comments Abrasion Encounter Details Date Type Department Care Team Description 04/30/2007 Nurse Only [facility] [place] Clin ic Joce Mason MD 701 [facility] Mail Code P5 [place] [address] Open Wound of Arm 701 [facility] , [facility] Nurse [address] (Primary Dx) P4.670 [place], [place] [address]41 Social History Tobacco Use Types [...] 07/25/2022 Appointment RADIOLOGY Patrice Hollins MD [address] [address] Scheduled 1, Isd-Kenyan 1 [place] [address] 07/25/2022 Office Visit NEUROSURGERY Briana Kaplan PA -C [address] [place] [address] Scheduled 1, Isd-Kenyan [address] [place] [address] 07/25/2022 Appointment PHYSICAL MEDICINE AND REHAB Lore Aguilar, PT Scheduled [address] [place] [address] (Wo rk) 08/05/2022 Appointment ORTHOPEDICS 1, Isd-Kenyan Scheduled 701 [place] [address] 08/05/2022 Appointment RADIOLOGY Roosevelt Brown MD [address] [place] [address] Scheduled 1, Isd-Kenyan 701 [place] [address] 08/05/2022 Appointment RADIOLOGY Roosevelt Brown MD [address] [place] [address] Scheduled 1, Isd-Kenyan 701 [place] [address] 08/05/2022 Office Visit ORTHOPEDICS Roosevelt Brown MD [address] [place] [address] Scheduled 1, Isd-Kenyan 701 [place] [address] 08/20/2022 Office Visit Interventional Radiology Provider, Hesham haq Scheduled 1, Isd-[place]yan 701 [place] [address] 08/21/2022 Office Visit MEDICINE Naomie Bal MBBS 701 [place], [place] [phone] Scheduled 1, Isd-[place]yan 701 [place] [address] documented as of this encounter Visit Diagnoses Diagnosis Open wound of arm - Primary Multiple and unspecified open wound of u pper limb, without mention of complication documented in this encounter
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
--- OUTSIDE RECORDS SUMMARY | 2022-07-23 20:37 | XMS_ITS | Encounter Summary ---
:1975 Author Organization [facility] Address [address] [place] [address] Phone Care Team Providers Name Role Phone Unavailable Primary Care Provider Unavailable Reason for Visit Reason Comments Burn Encounter Details Date Type Department Care Team Description 04/23/2007 Nurse Only [facility] Burn/Wound Clin ic Joce Mason MD 701 [facility] Mail Code P5 [place] [address] Open Wound of Arm 701 [facility] Nurse [address] (Primary Dx) P4.670 [place], [place] [address] Social History Tobacco Use Types [...] Appointment RADIOLOGY Patrice Hollins MD [address] [address] Scheduled 1, Isd-Vincentian 701 [place] [address] 07/25/2022 Office Visit NEUROSURGERY Briana Kaplan PA -C [address] [place] [address] [phone] Scheduled 1, Isd-Vincentian 701 [place] [address] 07/25/2022 Appointment PHYSICAL MEDICINE AND REHAB Lore Aguilar, PT Scheduled [address] [place] [address] (Wo rk) 08/05/2022 Appointment ORTHOPEDICS 1, Isd-Vincentian Scheduled 701 [place] [address] 08/05/2022 Appointment RADIOLOGY Roosevelt Brown MD [address] [place] [address] Scheduled 1, Isd-Vincentian 701 [place] [address] 08/05/2022 Appointment RADIOLOGY Roosevelt Brown MD [address] [place] [address] Scheduled 1, Isd-Vincentian 701 [place] [address] 08/05/2022 Office Visit ORTHOPEDICS Roosevelt Brown MD [address] [place] [address] Scheduled 1, Isd-Vincentian 701 [place] [address] 08/20/2022 Office Visit Interventional Radiology Provider, Hesham haq Scheduled 1, Isd-Vincentian 701 [place] [address] 08/21/2022 Office Visit MEDICINE Naomie Bal MBBS 701 [place] [address] Scheduled 1, Isd-Vincentian [address] [place] [address] documented as of this encounter Visit Diagnoses Diagnosis Open wound of arm - Primary Multiple and unspecified open wound of u pper limb, without mention of complication documented in this encounter
--- OUTSIDE RECORDS SUMMARY | 2022-07-23 20:37 | XMS_ITS | Encounter Summary ---
:1975 Author Organization [facility] Address 701 [facility] [place] [address] Phone Care Team Providers Name Role Phone Unavailable Primary Care Provider Unavailable Reason for Visit Reason Comments Arm Laceration Encounter Details Date Type Department Care Team Description 05/07/2007 Nurse Only [facility] Burn/Wound Clin ic Joce Mason MD 701 [facility] Mail Code P5 [place] [address] Open Wound of Arm [address] [address], [facility] Nurse [address] (Primary Dx) P4.670 [place], [place] [address] Social History Tobacco Use Types [...] Appointment RADIOLOGY Patrice Hollins MD [address] [address] Scheduled 1, Isd-Iranian 701 [place] [address] 07/25/2022 Office Visit NEUROSURGERY Briana Kaplan PA -C [address] [place] [address] Scheduled 1, Isd-Iranian 701 [place] [address] 07/25/2022 Appointment PHYSICAL MEDICINE AND REHAB Lore Aguilar, PT Scheduled [address] [place] [address] (Wo rk) 08/05/2022 Appointment ORTHOPEDICS 1, Isd-Iranian Scheduled 701 [place] [address] 08/05/2022 Appointment RADIOLOGY Roosevelt Brown MD [address] [place] [address] Scheduled 1, Isd-Iranian 701 [place] [address] 08/05/2022 Appointment RADIOLOGY Roosevelt Brown MD [address] [place] [address] Scheduled 1, Isd-Iranian 701 [place] [address] 08/05/2022 Office Visit ORTHOPEDICS Roosevelt Brown MD [address] [place] [address] Scheduled 1, Isd-Iranian 701 [place] [address] 08/20/2022 Office Visit Interventional Radiology Provider, Hesham haq Scheduled 1, Isd-Iranian 701 [place] [address] 08/21/2022 Office Visit MEDICINE Naomie Bal MBBS 701 [place], [place] [phone] Scheduled 1, Isd-Iranian 701 [place] [address] documented as of this encounter Visit Diagnoses Diagnosis Open wound of arm - Primary Multiple and unspecified open wound of u pper limb, without mention of complication documented in this encounter
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
--- OUTSIDE RECORDS SUMMARY | 2022-07-23 20:37 | XMS_ITS | Encounter Summary ---
:1975 Author Organization [facility] Address [address] [place] [address] Phone Care Team Providers Name Role Phone [...] Appointment RADIOLOGY Patrice Hollins MD [address] 630775 Scheduled 1, Isd-[place] 701 [place] [address] 07/25/2022 Office Visit NEUROSURGERY Eusebio, Briana Reyes PA IbisC [address] [place], [place] [phone] Scheduled 1, Isd[place] 701 [place] [address] 07/25/2022 Appointment PHYSICAL MEDICINE AND REHAB Lore Aguilar, PT Scheduled [address] [place] [address] (Wo rk) 08/05/2022 Appointment ORTHOPEDICS 1, Isd-[place]ozamb[place] Scheduled 701 [place] [address] 08/05/2022 Appointment RADIOLOGY Roosevelt Brown MD [address] [place] [address] Scheduled 1, Isd[place] [address] [place] [address] 08/05/2022 Appointment RADIOLOGY Roosevelt Brown MD [address] [place] [address] Scheduled 1, Isd[place] [address] [place] [address] 08/05/2022 Office Visit ORTHOPEDICS Roosevelt Brown MD [address] [place] [address] Scheduled 1, Isd[place] [address] [place] [address] 08/20/2022 Office Visit Interventional Radiology Provider, Hesham haq Scheduled 1, Isd[place] 701 [place] [address] 08/21/2022 Office Visit MEDICINE Naomie Bal MBBS 701 [place] [address] Scheduled 1, Isd[place] 701 [place] [address] documented as of this encounter Visit Diagnoses Not on filedocumented in this encounter
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
[2022-07-23 20:38] LABS: C Reactive Protein* 0.6 mg/dL (0.5-1.0)
[2022-07-23 21:20] VITALS: BP 139/97; PULSE 99; RESP 16; O2SAT 99
== END 2022-07-23 22:38 | disposition home or self-care (01) ==
PROVIDERS: Emergency Provider Family Medicine; PCP Family Medicine
DX: M54.50 Low back pain, unspecified (principal); M79.604 Pain in right leg
CPT/HCPCS: 36415; 72131; 72192; 80048; 85025; 86140; 99284